=== PATIENT | male | born 1935 | race African-American/Black ===

== ENCOUNTER 2018-04-25 08:49 | Emergency (ER) | payer MEDICARE, OTHER ==
[~2018-04-25] VITALS: Ht 185.4 cm; Wt 81.6 kg
[~2018-04-25 08:49] MED LIST: ASPIRIN-LOW81 MG PO; BLOOD PRESSURE PILL ORAL; PROSTATE PILL ORAL
[2018-04-25] MEDS ORDERED: LIPITOR80 MG ORAL (08:51)
[2018-04-25] MEDS ORDERED: FINASTERIDE5 MG ORAL (08:51)
[2018-04-25] MEDS ORDERED: Isovue-300 100ml vial INJ PRN (09:15)
[2018-04-25 09:25] VITALS: BP 164/82
--- NOTE | 2018-04-25 09:26 | Emergency Room Report ---
History of Present Illness General Chief Complaint: Generalized Weakness Source: EMS Present Illness HPI Patient is an 82-year-old male brought in by EMS after increased generalized weakness. The patient was reportedly found slumped over on the toilet. Patient was noted to be more confused than usual The patient was reportedly normally verbal and oriented.Patient was noted to have been less responsive than usual. Patient is reportedly found the more confused. The history is markedly limited by patient's mental status. Allergies: Coded Allergies: PENICILLINS (Verified Allergy, Unknown, 04/25/18) Patient History Past Medical History: see triage record Reviewed Nursing Documentation: PMH: Agreed; PSxH: Agreed Nursing Documentation-PMH Hx Cardiac Problems: Yes Hx Hypertension: Yes Hx Cancer: No Hx Gastrointestinal Problems: No Hx Neurological Problems: Yes Hx Cerebrovascular Accident: Yes - YEARS AGO. Review of Systems All Other Systems: limited - by mental status Physical Exam Vital Signs Date Time Temp Pulse Resp B/P (MAP) Pulse Ox O2 Delivery O2 Flow Rate FiO2 04/25/18 08:45 98.1 89 20 190/70 97 Room Air General Appearance: thin, Chronically Ill Head: normocephalic Neck: limited range of motion Respiratory: lungs clear, normal breath sounds Cardiovascular #1: normal inspection, regular rate, rhythm Gastrointestinal: soft, other - distended bladder Musculoskeletal: decreased range of motion Neurologic: alert, other - incomprehensible sounds, purposeful movements, eyes open Psychiatric: depressed affect Skin: normal inspection, normal color, no rash, warm/dry Medical Decision Making Diagnostic Impression: Primary Impression: Episode of generalized weakness Additional Impressions: Urinary tract infection Lactic acid acidosis ER Course Patient is an 82-year-old male presented after increased generalized weakness. The differential diagnosis included was not limited to CVA, pneumonia, urinary tract infection, myocardial infarction among others.Because of complexity of patient's case laboratory testing and imaging studies were ordered. The patient was noted to have evidence of confusion and was noted to be disoriented. The patient was given IV fluids and was noted to have some improvement in his mental status. Patient was started on IV antibiotics after blood cultures were obtained. The laboratory testing was notable for elevated lactic acid level with a normal white blood count. Urinalysis showed evidence of urinary infection.CT the head read by radiology showed atrophic changes without evident acute CVA or hemorrhage. The patient was discussed with Dr. Nico who agreed to accept the patient in transfer to [facility]. Labs Test 04/25/18 09:10 04/25/18 10:00 04/25/18 10:57 White Blood Count 9.9 K/UL (4.8-10.8) Red Blood Count 4.20 M/UL (4.70-6.10) Hemoglobin 10.6 G/DL (14.2-18.0) Hematocrit 33.8 % (42.0-52.0) Mean Corpuscular Volume 81 FL (80-99) Mean Corpuscular Hemoglobin 25.3 PG (27.0-31.0) Mean Corpuscular Hemoglobin Concent 31.5 G/DL (32.0-36.0) Red Cell Distribution Width 16.1 % (11.6-14.8) Platelet Count 281 K/UL (150-450) Mean Platelet Volume 7.3 FL (6.5-10.1) Neutrophils (%) (Auto) 74.3 % (45.0-75.0) Lymphocytes (%) (Auto) 11.7 % (20.0-45.0) Monocytes (%) (Auto) 12.5 % (1.0-10.0) Eosinophils (%) (Auto) 0.5 % (0.0-3.0) Basophils (%) (Auto) 0.9 % (0.0-2.0) Sodium Level 142 MMOL/L (136-145) Potassium Level 4.1 MMOL/L (3.5-5.1) Chloride Level 105 MMOL/L (98-107) Carbon Dioxide Level 23 MMOL/L (21-32) Anion Gap 14 mmol/L (5-15) Blood Urea Nitrogen 31 mg/dL (7-18) Creatinine 1.8 MG/DL (0.55-1.30) Estimat Glomerular Filtration Rate mL/min (>60) Glucose Level 122 MG/DL (74-106) Calcium Level 10.2 MG/DL (8.5-10.1) Phosphorus Level 2.7 MG/DL (2.5-4.9) Magnesium Level 2.3 MG/DL (1.8-2.4) Total Bilirubin 0.5 MG/DL (0.2-1.0) Aspartate Amino Transf (AST/SGOT) 53 U/L (15-37) Alanine Aminotransferase (ALT/SGPT) 48 U/L (12-78) Alkaline Phosphatase 124 U/L (46-116) Total Creatine Kinase 1265 U/L (26-308) Creatine Kinase MB 3.4 NG/ML (0.0-3.6) Creatine Kinase MB Relative Index 0.2 Troponin I 0.150 ng/mL (0.000-0.056) Pro-B-Type Natriuretic Peptide 479 pg/mL (0-125) Total Protein 8.9 G/DL (6.4-8.2) Albumin 3.3 G/DL (3.4-5.0) Globulin 5.6 g/dL Albumin/Globulin Ratio 0.6 (1.0-2.7) Urine Color Pale yellow Urine Appearance Cloudy Urine pH 8 (4.5-8.0) Urine Specific [place] 1.010 (1.005-1.035) Urine Protein 2+ (NEGATIVE) Urine Glucose (UA) Negative (NEGATIVE) Urine Ketones Negative (NEGATIVE) Urine Blood 4+ (NEGATIVE) Urine Nitrite Positive (NEGATIVE) Urine Bilirubin Negative (NEGATIVE) Urine Urobilinogen Normal MG/DL (0.0-1.0) Urine Leukocyte Esterase 3+ (NEGATIVE) Urine RBC 2-4 /HPF (0 - 0) Urine WBC 20-30 /HPF (0 - 0) Urine Squamous Epithelial Cells Few /LPF (NONE/OCC) Urine Bacteria Many /HPF (NONE) Last Vital Signs Date Time Temp Pulse Resp B/P (MAP) Pulse Ox O2 Delivery O2 Flow Rate FiO2 04/25/18 08:45 98.1 89 20 190/70 97 Room Air Status: improved Disposition: XFER [facility] Condition: Stable Referrals: NOT CHOSEN IPA/,REFERRING (PCP) Galo Truong MD Apr 25, 2018 09:26
[2018-04-25 09:37] LABS: BASOPHILS % (AUTO) 0.9 % (0.0-2.0); EOSINOPHILS % (AUTO) 0.5 % (0.0-3.0); HEMATOCRIT 33.8 % (42.0-52.0); HEMOGLOBIN 10.6 G/DL (14.2-18.0); LYMPHOCYTES % (AUTO) 11.7 % (20.0-45.0); MEAN CORPUSCULAR VOLUME 81 FL (80-99); MONOCYTES % (AUTO) 12.5 % (1.0-10.0); NEUTROPHILS % (AUTO) 74.3 % (45.0-75.0); PLATELET COUNT 281 K/UL (150-450); RED CELL DISTRIBUTION WIDTH 16.1 % (11.6-14.8); WHITE BLOOD COUNT 9.9 K/UL (4.8-10.8)
--- NOTE | 2018-04-25 10:00 | Diagnostic Imaging Report ---
INDICATION: Altered mental status TECHNIQUE: Multiple, contiguous 2.5 mm axial cuts of the brain are obtained from the posterior fossa to the cranial vault. Sagittal and coronal reformatted images provided. No IV contrast is administered. One or more of the following dose reduction techniques were used: automated exposure control, adjustment of the mA and/or kV according to patient size, use of iterative reconstruction technique. COMPARISON: None FINDINGS: No intracranial hemorrhage, abnormal intra- or extra-axial collections or parenchymal lesions are seen. There are involutional changes with prominence of the sulci, basal cisterns and ventricles. Scattered white matter hypoattenuations are present, likely from small vessel disease. The vee-white differentiation is preserved. No evidence of mass effect, midline shift, or edema. The osseous structures are unremarkable. The visualized portions of the paranasal sinuses are clear. Atherosclerotic vascular disease. IMPRESSION: 1. No acute intracranial process. 2. Involutional changes with small vessel disease. CTDI: 70.38 mGy DLP: 1537.73 mGycm
[2018-04-25 10:11] LABS: APPEARANCE,URINE CLOUDY; BILIRUBIN, URINE NEGATIVE (NEGATIVE); COLOR,URINE PALE YELLOW; GLUCOSE, URINE (UA) NEGATIVE (NEGATIVE); KETONES,URINE NEGATIVE (NEGATIVE); LEUKOCYTE ESTERASE ,URINE 3+ (NEGATIVE); NITRITE,URINE POSITIVE (NEGATIVE); PH,URINE 8 (4.5-8.0); PROTEIN,URINE 2+ (NEGATIVE); UROBILINOGEN,URINE NORMAL MG/DL (0.0-1.0)
[2018-04-25 10:18] LABS: ANION GAP 14 mmol/L (5-15); BLOOD UREA NITROGEN 31 mg/dL (7-18); CALCIUM 10.2 MG/DL (8.5-10.1); CARBON DIOXIDE 23 MMOL/L (21-32); CHLORIDE 105 MMOL/L (98-107); CREATININE 1.8 MG/DL (0.55-1.30); POTASSIUM 4.1 MMOL/L (3.5-5.1); SODIUM 142 MMOL/L (136-145)
--- NOTE | 2018-04-25 10:26 | Diagnostic Imaging Report ---
INDICATION: Shortness of breath COMPARISON: None FINDINGS: Single frontal view demonstrates a normal cardiomediastinal silhouette. The lungs are clear. No pleural effusions. The visualized osseous structures are within normal limits. Atelectatic bands in the left lower lung zone. Atherosclerotic vascular disease. IMPRESSION: Atelectatic bands in the left lower lung zone. Atherosclerotic vascular disease.
[2018-04-25 10:33] LABS: ALANINE AMINOTRANSFERASE 48 U/L (12-78); ALBUMIN 3.3 G/DL (3.4-5.0); ALBUMIN/GLOBULIN RATIO 0.6 (1.0-2.7); ALKALINE PHOSPHATASE 124 U/L (46-116); ASPARTATE AMINO TRANSFERASE 53 U/L (15-37); BILIRUBIN,TOTAL 0.5 MG/DL (0.2-1.0); CKMB 3.4 NG/ML (0.0-3.6); CREATINE KINASE 1265 U/L (26-308); PHOSPHORUS 2.7 MG/DL (2.5-4.9)
[2018-04-25 11:20] VITALS: BP 150/98
--- NOTE | 2018-04-25 11:34 | Diagnostic Imaging Report ---
ADDENDUM - Added by Alexandro Owens M.D. on 04/25/2018 11:33 AM (-08:00) CTDI: 12.33 mGy DLP: 668.51 mGycm INDICATION: Altered mental status TECHNIQUE: Multiple, contiguous axial cuts of the abdomen and pelvis are obtained from the lung bases to the ischial tuberosities. Sagittal and coronal reformatted images are available. One or more of the following dose reduction techniques were used: automated exposure control, adjustment of the mA and/or kV according to patient size, use of iterative reconstruction technique. COMPARISON: None FINDINGS: Mild bilateral lower lobe subsegmental atelectasis. The liver and spleen are normal in size and free of mass lesions. The bile ducts and pancreas are normal. Status post cholecystectomy. The adrenal gland are unremarkable. The kidneys are normal in size and contour. No stones, lesions or hydronephrosis. 18 mm left renal cyst. Small hiatal hernia. The appendix is unremarkable, as is the rest of the GI tract. Layering calcifications seen in the bladder the right ureterovesical junction measuring 6-7 mm. No hydroureteronephrosis. Atherosclerotic vascular disease. Aorta is normal caliber. No adenopathy or extraluminal air. Status post left femoral neck jani fixation with adjacent dystrophic calcifications likely related to prior fracture. 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 Old fracture deformity of bilateral inferior pubic rami. Degenerative changes of the lumbar spine with a small Schmorl's node at the superior endplate of L3. IMPRESSION: 1. Layering calcification along the right ureterovesical junction measuring 6-7 mm without evidence of hydroureteronephrosis. 2. 18 mm left renal cyst. 3. Small hiatal hernia. 4. 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 Old fracture deformity of bilateral inferior pubic rami.
[2018-04-25 15:29] VITALS: BP 150/98
--- NOTE | 2018-04-27 08:50 | Cardiology Report ---
APPROVED REPORT EKG Measurement Heart [id number] Sinus rhythm with occasional premature ventricular complexes Nonspecific ST and T wave abnormality Abnormal ECG
== END 2018-04-25 15:29 | disposition short-term general hospital (02) ==
LOC: EDBD 08:49 → EMR 09:09
DX: R53.1 Weakness (principal); N39.0 Urinary tract infection, site not specified; E87.2 Acidosis; I10 Essential (primary) hypertension; Z88.0 Allergy status to penicillin; Z86.73 Personal history of transient ischemic attack (TIA), and cerebral infarction without residual deficits
CPT/HCPCS: 36415; 70450; 71045; 74176; 80053; 81003; 82550; 82553; 83605; 83735; 83880; 84100; 84484; 85025; 87040; 87086; 87181; 93005; 96360; 99284; J1956

== ENCOUNTER 2018-11-14 09:00 | Emergency (ER) | payer MEDICARE, OTHER ==
[~2018-11-14] VITALS: Ht 177.8 cm; Wt 68.0 kg
[~2018-11-14 09:00] MED LIST changes: +FINASTERIDE5 MG ORAL; +LIPITOR80 MG ORAL; +MIRTAZAPINE15 M3 ORAL; +SEROQUEL25 MG ORAL; +SYNTHROID25 MCG ORAL
[2018-11-14 09:13] VITALS: BP 138/71
--- NOTE | 2018-11-14 09:13 | NUR ---
ED Nurse Note: Patient brought in to ER by ambulance from [facility] for F/C insertion. per EMS pt pulled out F/C at facility this morning. pt aao x1 only to himself and bedbound. pt calm and follows commands. blood noted in diaper and the tip of penis but not active bleeding. pt has skin wound on both legs.
--- NOTE | 2018-11-14 09:21 | Emergency Room Report ---
History of Present Illness General Chief Complaint: General Complaint Source: EMS Present Illness HPI Patient pulled out his Muniz. There is blood at the meatus at this time. The patient has dementia and is unable to give more history at this time. According to med recon the patient is not taking a blood thinner. The patient was discharged November 02 with these discharge diagnoses: Possible sepsis UTI with Proteus and Strep group B Acute metabolic encephalopathy Cerebrovascular disease with history of CVA Severe anemia Diabetes mellitus Dysphagia Hypertension Hypothyroidism Allergies: Coded Allergies: PENICILLINS (Verified Allergy, Unknown, 10/27/18) tolretas cephalosporins Patient History Limited by: medical condition Past Medical History: see triage record, old chart reviewed Social History Narrative prison facility Reviewed Nursing Documentation: PMH: Agreed; PSxH: Agreed Nursing Documentation-PMH Past Medical History: No History, Except For Hx Cardiac Problems: Yes Hx Hypertension: Yes Hx Diabetes: Yes Hx Cancer: No Hx Gastrointestinal Problems: No Hx Neurological Problems: Yes Hx Cerebrovascular Accident: Yes - years ago Review of Systems All Other Systems: limited Physical Exam Vital Signs Date Time Temp Pulse Resp B/P (MAP) Pulse Ox O2 Delivery O2 Flow Rate FiO2 11/14/18 09:01 99.0 73 17 108/54 (72) 96 Room Air Sp02 EP Interpretation: reviewed, normal General Appearance: alert - Unresponsive to vocal, Chronically Ill Eyes: bilateral eye other - Arcus ENT: moist mucus membranes Neck: supple Respiratory: lungs clear, normal breath sounds, no rhonchi Cardiovascular #1: regular rate, rhythm, no edema Cardiovascular #2: 2+ radial (R) Gastrointestinal: normal inspection, normal bowel sounds, non tender, scaphoid Genitourinary: no CVA tenderness, scrotum normal, other - Circumcised with blood at the meatus Musculoskeletal: other - Blood at meatus No active bleeding and circumcised without tenderness Neurologic: alert, responsive, sensory intact, motor weakness, Babinski - Right Psychiatric: mood/affect normal Skin: other - Venous disease and skin tears lower extremities Medical Decision Making Diagnostic Impression: Primary Impression: Urethral trauma Qualified Codes: S37.30XA - Unspecified injury of urethra, initial encounter Additional Impressions: UTI (urinary tract infection) Qualified Codes: N39.0 - Urinary tract infection, site not specified; R31.9 - Hematuria, unspecified Leukocytosis Qualified Codes: D72.828 - Other elevated white blood cell count ER Course Patient presents with trauma due to Muniz. Differential includes ureteral trauma, UTI amongst others. A Muniz will be replaced. Laboratory testing to be performed. The patient will receive gentle IV hydration as he appears somewhat dehydrated. Elevated WBC, lactate. Pyuria. Antibiotics ordered. Full sepsis resuscitation bolus given. We have uncovered possible sepsis and not just urethral trauma. Improved and NAD. Repeat lactic acid improved. Presented to Dr. Aguero. Transfer [facility]. Laboratory Tests Test 11/14/18 09:40 11/14/18 10:18 11/14/18 12:30 White Blood Count 29.3 K/UL (4.8-10.8) *H Red Blood Count 4.29 M/UL (4.70-6.10) L Hemoglobin 9.8 G/DL (14.2-18.0) L Hematocrit 31.8 % (42.0-52.0) L Mean Corpuscular Volume 74 FL (80-99) L Mean Corpuscular Hemoglobin 22.9 PG (27.0-31.0) L Mean Corpuscular Hemoglobin Concent 30.9 G/DL (32.0-36.0) L Red Cell Distribution Width 18.8 % (11.6-14.8) H Platelet Count 326 K/UL (150-450) Mean Platelet Volume 6.5 FL (6.5-10.1) Neutrophils (%) (Auto) % (45.0-75.0) Lymphocytes (%) (Auto) % (20.0-45.0) Monocytes (%) (Auto) % (1.0-10.0) Eosinophils (%) (Auto) % (0.0-3.0) Basophils (%) (Auto) % (0.0-2.0) Differential Total Cells Counted 100 Neutrophils % (Manual) 90 % (45-75) H Lymphocytes % (Manual) 1 % (20-45) L Monocytes % (Manual) 2 % (1-10) Eosinophils % (Manual) 0 % (0-3) Basophils % (Manual) 0 % (0-2) Band Neutrophils 7 % (0-8) Platelet Estimate Adequate Platelet Morphology Normal Anisocytosis 1+ Microcytosis 1+ Prothrombin Time 10.6 SEC (9.30-11.50) Prothrombin Time INR 1.0 (0.9-1.1) PTT 21 SEC (23-33) L Urine Color Yellow Urine Appearance Cloudy Urine pH 5 (4.5-8.0) Urine Specific [place] 1.020 (1.005-1.035) Urine Protein 3+ (NEGATIVE) H Urine Glucose (UA) Negative (NEGATIVE) Urine Ketones 1+ (NEGATIVE) H Urine Blood 5+ (NEGATIVE) H Urine Nitrite Positive (NEGATIVE) H Urine Bilirubin 1+ (NEGATIVE) H Urine Ictotest Negative (NEGATIVE) Urine Urobilinogen 4 MG/DL (0.0-1.0) H Urine Leukocyte Esterase 3+ (NEGATIVE) H Urine RBC Tntc /HPF (0 - 0) H Urine WBC 30-40 /HPF (0 - 0) H Urine Squamous Epithelial Cells Occasional /LPF Urine Bacteria Few /HPF (NONE) Sodium Level 138 MMOL/L (136-145) Potassium Level 4.8 MMOL/L (3.5-5.1) Chloride Level 105 MMOL/L (98-107) Carbon Dioxide Level 22 MMOL/L (21-32) Anion Gap 11 mmol/L (5-15) Blood Urea Nitrogen 34 mg/dL (7-18) H Creatinine 1.7 MG/DL (0.55-1.30) H Estimate Glomerular Filtration Rate mL/min (>60) Glucose Level 140 MG/DL (74-106) H Calcium Level 9.4 MG/DL (8.5-10.1) Total Bilirubin 0.4 MG/DL (0.2-1.0) Aspartate Amino Transferase (AST) 133 U/L (15-37) H Alanine Aminotransferase (ALT) 95 U/L (12-78) H Alkaline Phosphatase 184 U/L (46-116) H Total Protein 8.6 G/DL (6.4-8.2) H Albumin 2.9 G/DL (3.4-5.0) L Globulin 5.7 g/dL Albumin/Globulin Ratio 0.5 (1.0-2.7) L Lipase 58 U/L (73-393) L Lactic Acid Level 3.10 mmol/L (0.4-2.0) H 2.20 mmol/L (0.66-2.22) EKG Diagnostic Results Rate: normal Rhythm: NSR ST Segments: no acute changes Rhythm Strip Diag. Results EP Interpretation: yes Rhythm: NSR, no PVC's, no ectopy Chest X-Ray Diagnostic Results Chest X-Ray Diagnostic Results : Chest X-Ray Ordered: Yes # of Views/Limited/Complete: 1 View Indication: Other EP Interpretation: Yes Interpretation: no consolidation, no effusion, no pneumothorax Impression: Other Last Vital Signs Date Time Temp Pulse Resp B/P (MAP) Pulse Ox O2 Delivery O2 Flow Rate FiO2 11/14/18 12:41 99.2 76 17 121/82 98 Room Air Status: improved [facility] Condition: Serious Tomas Daigle MD Nov 14, 2018 09:21
[2018-11-14] MEDS ORDERED: Sodium Chloride 550 ML IV SCH (09:30)
[2018-11-14] MEDS ORDERED: Bacitracin Oint UD TOPIC ONE (09:30)
[2018-11-14 09:59] LABS: ANION GAP 11 mmol/L (5-15); BLOOD UREA NITROGEN 34 mg/dL (7-18); CALCIUM 9.4 MG/DL (8.5-10.1); CARBON DIOXIDE 22 MMOL/L (21-32); CHLORIDE 105 MMOL/L (98-107); CREATININE 1.7 MG/DL (0.55-1.30); POTASSIUM 4.8 MMOL/L (3.5-5.1); SODIUM 138 MMOL/L (136-145)
--- NOTE | 2018-11-14 10:00 | NUR ---
ED Nurse Note: FC inserted with 14 Fr. blood noted in urine. both legs wound treated with bacitracin and open to air at this moment.
[2018-11-14 10:06] LABS: ALANINE AMINOTRANSFERASE 95 U/L (12-78); ALBUMIN 2.9 G/DL (3.4-5.0); ALBUMIN/GLOBULIN RATIO 0.5 (1.0-2.7); ALKALINE PHOSPHATASE 184 U/L (46-116); ASPARTATE AMINO TRANSFERASE 133 U/L (15-37); BILIRUBIN,TOTAL 0.4 MG/DL (0.2-1.0); HEMATOCRIT 31.8 % (42.0-52.0); HEMOGLOBIN 9.8 G/DL (14.2-18.0); MEAN CORPUSCULAR VOLUME 74 FL (80-99); PLATELET COUNT 326 K/UL (150-450); RED BLOOD COUNT 4.29 M/UL (4.70-6.10); RED CELL DISTRIBUTION WIDTH 18.8 % (11.6-14.8)
[2018-11-14 10:09] LABS: WHITE BLOOD COUNT 29.3 K/UL (4.8-10.8)
[2018-11-14 10:17] LABS: APPEARANCE,URINE CLOUDY; BILIRUBIN, URINE 1+ (NEGATIVE); GLUCOSE, URINE (UA) NEGATIVE (NEGATIVE); KETONES,URINE 1+ (NEGATIVE); LEUKOCYTE ESTERASE ,URINE 3+ (NEGATIVE); NITRITE,URINE POSITIVE (NEGATIVE); PH,URINE 5 (4.5-8.0); PROTEIN,URINE 3+ (NEGATIVE); UROBILINOGEN,URINE 4 MG/DL (0.0-1.0)
[2018-11-14 10:27] LABS: COLOR,URINE YELLOW
[2018-11-14 10:30] VITALS: BP 121/82
[2018-11-14] MEDS ORDERED: Calcium Gluconate 1gm/10ml vial IVP ONE (10:30)
[2018-11-14] MEDS ORDERED: Albuterol ud Inhalation HHN ONE (10:30)
[2018-11-14] MEDS ORDERED: cefTRIAXone 1 GM in NS 55 ML IVPB ONE (10:30)
[2018-11-14] MEDS ORDERED: Sodium Polystyrene Sulfonate 15gm Powder ORAL ONE (10:30)
--- NOTE | 2018-11-14 10:39 | NUR ---
ED Nurse Note: lactic and blood culture sent to the lab.
--- NOTE | 2018-11-14 12:32 | NUR ---
ED Nurse Note: transportation arrived. report given to EMS.
[2018-11-14 12:41] VITALS: BP 121/82
--- NOTE | 2018-11-14 12:54 | NUR ---
ED Nurse Note: report given to KAI Shetty.
--- NOTE | 2018-11-15 12:31 | NUR ---
FAXED CULTURE RESULT TO [facility]
--- NOTE | 2018-11-17 21:13 | Cardiology Report ---
APPROVED REPORT EKG Measurement Heart [id number] [id number] Normal sinus rhythm Nonspecific T wave abnormality Abnormal ECG
== END 2018-11-14 12:41 | disposition short-term general hospital (02) ==
LOC: EDBD 09:00 → EMR 09:10 → EDBEDREQ 10:45 → EMR 12:41
DX: S37.30XA Unspecified injury of urethra, initial encounter (principal); N39.0 Urinary tract infection, site not specified; R31.9 Hematuria, unspecified; D72.828 Other elevated white blood cell count; F03.90 Unspecified dementia, unspecified severity, without behavioral disturbance, psychotic disturbance, mood disturbance, and anxiety; E03.9 Hypothyroidism, unspecified; Z86.73 Personal history of transient ischemic attack (TIA), and cerebral infarction without residual deficits; Z88.0 Allergy status to penicillin; E11.9 Type 2 diabetes mellitus without complications; I10 Essential (primary) hypertension; X58.XXXA Exposure to other specified factors, initial encounter; Y92.9 Unspecified place or not applicable
CPT/HCPCS: 36415; 51702; 80053; 81003; 83605; 83690; 85007; 85025; 85610; 85730; 87040; 87086; 87181; 93005; 96361; 96365; 96368; 99284; J0696; J1956; J7040

== ENCOUNTER 2018-11-19 08:07 | Emergency (ER) | payer MEDICARE, OTHER ==
[~2018-11-19] VITALS: Ht 185.4 cm; Wt 74.8 kg
[2018-11-19] MEDS ORDERED: MIRTAZAPINE15 MG ORAL (08:13)
--- NOTE | 2018-11-19 08:15 | NUR ---
ED Nurse Note: pt arrives alert oriented to self only. no dyspnea or cp c/o no edema noted. cooperative with care upon arrival placed on playground monitor. 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
[2018-11-19 09:24] LABS: BASOPHILS % (AUTO) 1.2 % (0.0-2.0); HEMATOCRIT 30.7 % (42.0-52.0); HEMOGLOBIN 9.3 G/DL (14.2-18.0); MEAN CORPUSCULAR VOLUME 74 FL (80-99); MONOCYTES % (AUTO) 7.3 % (1.0-10.0); NEUTROPHILS % (AUTO) 59.5 % (45.0-75.0); PLATELET COUNT 316 K/UL (150-450); RED BLOOD COUNT 4.17 M/UL (4.70-6.10); RED CELL DISTRIBUTION WIDTH 18.9 % (11.6-14.8); WHITE BLOOD COUNT 7.1 K/UL (4.8-10.8)
[2018-11-19 09:28] LABS: ANION GAP 7 mmol/L (5-15); BLOOD UREA NITROGEN 17 mg/dL (7-18); CALCIUM 9.3 MG/DL (8.5-10.1); CARBON DIOXIDE 25 MMOL/L (21-32); CHLORIDE 107 MMOL/L (98-107); CREATININE 1.1 MG/DL (0.55-1.30); POTASSIUM 4.4 MMOL/L (3.5-5.1); SODIUM 139 MMOL/L (136-145)
[2018-11-19 09:29] LABS: INR 0.9 (0.9-1.1)
[2018-11-19 09:36] VITALS: BP 176/60
--- NOTE | 2018-11-19 09:39 | NUR ---
ED Nurse Note: urine sent from [facility] angel
[2018-11-19 09:42] LABS: ALANINE AMINOTRANSFERASE 43 U/L (12-78); ALBUMIN 2.6 G/DL (3.4-5.0); ALBUMIN/GLOBULIN RATIO 0.5 (1.0-2.7); ALKALINE PHOSPHATASE 156 U/L (46-116); ASPARTATE AMINO TRANSFERASE 34 U/L (15-37); BILIRUBIN,TOTAL 0.3 MG/DL (0.2-1.0)
[2018-11-19 10:24] LABS: APPEARANCE,URINE CLEAR; BILIRUBIN, URINE NEGATIVE (NEGATIVE); COLOR,URINE PALE YELLOW; GLUCOSE, URINE (UA) NEGATIVE (NEGATIVE); KETONES,URINE NEGATIVE (NEGATIVE); LEUKOCYTE ESTERASE ,URINE 1+ (NEGATIVE); NITRITE,URINE NEGATIVE (NEGATIVE); PH,URINE 5 (4.5-8.0); PROTEIN,URINE NEGATIVE (NEGATIVE); UROBILINOGEN,URINE NORMAL MG/DL (0.0-1.0)
[2018-11-19 11:09] VITALS: BP 192/56
--- NOTE | 2018-11-19 11:21 | Emergency Room Report ---
History of Present Illness General Chief Complaint: Abnormal Labs Source: Medical Record, EMS Present Illness HPI This patient presents from a long term facility. He has multiple chronic medical problems to include encephalopathy and generalized muscle weakness and type 2 diabetes. He presents because routine labs at the long term [facility] showed anemia. Patient himself has no specific complaints. There is been no report of coffee-ground emesis or melena. There is been no diarrhea. There are no other complaints or symptoms. Allergies: Coded Allergies: PENICILLINS (Verified Allergy, Unknown, 10/27/18) tolretas cephalosporins Patient History Past Medical History: see triage record, DM, other - Enchephalopathy, muscle weakness, Hypothyroid Social History: Denies: smoking, alcohol use, drug use Reviewed Nursing Documentation: PMH: Agreed; PSxH: Agreed Nursing Documentation-PMH Past Medical History: No History, Except For Hx Cardiac Problems: Yes Hx Hypertension: Yes Hx Diabetes: Yes Hx Cancer: No Hx Gastrointestinal Problems: No Hx Neurological Problems: Yes Hx Cerebrovascular Accident: Yes Review of Systems All Other Systems: negative except mentioned in HPI Physical Exam Vital Signs Date Time Temp Pulse Resp B/P (MAP) Pulse Ox O2 Delivery O2 Flow Rate FiO2 11/19/18 08:08 97.9 46 16 167/75 (105) 100 11/19/18 09:36 Room Air Sp02 EP Interpretation: reviewed, normal General Appearance: no apparent distress, alert, GCS 15, non-toxic Head: normocephalic, atraumatic ENT: hearing grossly normal, normal pharynx, no angioedema, normal voice Neck: full range of motion Respiratory: chest non-tender, lungs clear, normal breath sounds, no respiratory distress, no retraction, no accessory muscle use, speaking full sentences Cardiovascular #1: regular rate, rhythm, no edema Gastrointestinal: normal bowel sounds, non tender, soft, non-distended, no guarding, no rebound Rectal: deferred Musculoskeletal: normal inspection, back normal, normal range of motion Neurologic: alert, responsive, speech normal, grossly normal Psychiatric: mood/affect normal, no suicidal/homicidal ideation Skin: normal color, no rash, warm/dry, well hydrated Medical Decision Making Diagnostic Impression: Primary Impression: Anemia ER Course This patient has a known baseline anemia. Labs done here in the emergency department are at his baseline. Hemoglobin is 9.3 which is baseline for this patient. Possibly the results at the long term [facility] were a lab error. Regardless, this patient is at his baseline with no evidence of any medical condition. The patient is returned to the long term facility. Laboratory Tests Test 11/19/18 09:00 11/19/18 09:41 White Blood Count 7.1 K/UL (4.8-10.8) Red Blood Count 4.17 M/UL (4.70-6.10) L Hemoglobin 9.3 G/DL (14.2-18.0) L Hematocrit 30.7 % (42.0-52.0) L Mean Corpuscular Volume 74 FL (80-99) L Mean Corpuscular Hemoglobin 22.3 PG (27.0-31.0) L Mean Corpuscular Hemoglobin Concent 30.3 G/DL (32.0-36.0) L Red Cell Distribution Width 18.9 % (11.6-14.8) H Platelet Count 316 K/UL (150-450) Mean Platelet Volume 6.3 FL (6.5-10.1) L Neutrophils (%) (Auto) 59.5 % (45.0-75.0) Lymphocytes (%) (Auto) 28.0 % (20.0-45.0) Monocytes (%) (Auto) 7.3 % (1.0-10.0) Eosinophils (%) (Auto) 4.0 % (0.0-3.0) H Basophils (%) (Auto) 1.2 % (0.0-2.0) Prothrombin Time 10.0 SEC (9.30-11.50) Prothrombin Time INR 0.9 (0.9-1.1) PTT 23 SEC (23-33) Sodium Level 139 MMOL/L (136-145) Potassium Level 4.4 MMOL/L (3.5-5.1) Chloride Level 107 MMOL/L (98-107) Carbon Dioxide Level 25 MMOL/L (21-32) Anion Gap 7 mmol/L (5-15) Blood Urea Nitrogen 17 mg/dL (7-18) Creatinine 1.1 MG/DL (0.55-1.30) Estimate Glomerular Filtration Rate mL/min (>60) Glucose Level 96 MG/DL (74-106) Calcium Level 9.3 MG/DL (8.5-10.1) Total Bilirubin 0.3 MG/DL (0.2-1.0) Aspartate Amino Transferase (AST) 34 U/L (15-37) Alanine Aminotransferase (ALT) 43 U/L (12-78) Alkaline Phosphatase 156 U/L (46-116) H Total Protein 7.8 G/DL (6.4-8.2) Albumin 2.6 G/DL (3.4-5.0) L Globulin 5.2 g/dL Albumin/Globulin Ratio 0.5 (1.0-2.7) L Urine Color Pale yellow Urine Appearance Clear Urine pH 5 (4.5-8.0) Urine Specific [place] 1.015 (1.005-1.035) Urine Protein Negative (NEGATIVE) Urine Glucose (UA) Negative (NEGATIVE) Urine Ketones Negative (NEGATIVE) Urine Blood 1+ (NEGATIVE) H Urine Nitrite Negative (NEGATIVE) Urine Bilirubin Negative (NEGATIVE) Urine Urobilinogen Normal MG/DL (0.0-1.0) Urine Leukocyte Esterase 1+ (NEGATIVE) H Urine RBC 0-2 /HPF (0 - 0) H Urine WBC 2-4 /HPF (0 - 0) Urine Squamous Epithelial Cells Occasional /LPF Urine Bacteria Occasional /HPF (NONE) EKG Diagnostic Results Rate: bradycardiac Rhythm: other - S.alexandra ST Segments: no acute changes Rhythm Strip Diag. Results EP Interpretation: yes Rate: 50's Rhythm: no PVC's, no ectopy, other - S.bradycardia Chest X-Ray Diagnostic Results Chest X-Ray Diagnostic Results : Chest X-Ray Ordered: Yes # of Views/Limited/Complete: 1 View Indication: Chest Pain Last Vital Signs Date Time Temp Pulse Resp B/P (MAP) Pulse Ox O2 Delivery O2 Flow Rate FiO2 11/19/18 11:09 54 20 192/56 99 Room Air 11/19/18 08:08 97.9 Disposition: XFER SNF Condition: Stable Referrals: Vania Hui MD (PCP) Swathi Núñez DO Nov 19, 2018 11:21
--- NOTE | 2018-11-19 12:53 | NUR ---
ED Nurse Note: pt remains as previously, awaiting further dispo by md. no new orders
--- NOTE | 2018-11-19 13:39 | NUR ---
report called to [facility] patient will [facility] returning [facility]
--- NOTE | 2018-11-19 14:05 | NUR ---
ED Nurse Note: [facility] here to transport pt to snf. pt remains with iv site and angel cath as pt came with these plane captain. vs remain as during time in ed. pt agrees to plan to return to snf
[2018-11-19 14:18] VITALS: BP 186/89
--- NOTE | 2018-11-19 14:19 | NUR ---
ED Nurse Note:pt to be transported by [facility]. dc aci and interventions done sent with pt. pt remains at same mentation.
[2018-11-19 14:20] VITALS: BP 186/89
== END 2018-11-19 14:21 ==
LOC: EDBD 08:07 → EMR 08:40
DX: D64.9 Anemia, unspecified (principal); Z88.0 Allergy status to penicillin; I10 Essential (primary) hypertension; Z86.73 Personal history of transient ischemic attack (TIA), and cerebral infarction without residual deficits; E03.9 Hypothyroidism, unspecified; R00.1 Bradycardia, unspecified
CPT/HCPCS: 36415; 80053; 81003; 85025; 85610; 85730; 86850; 86900; 86901; 93005; 96374; 99284; S0028

== ENCOUNTER 2019-07-18 11:51 | Inpatient (IN) | payer MEDICARE, OTHER ==
[~2019-07-18] VITALS: Ht 182.9 cm; Wt 70.8 kg
[2019-07-18] VITALS (12 sets, daily range): BP systolic 91–127; BP diastolic 40–98
[~2019-07-18 11:51] MED LIST changes: +MIRTAZAPINE15 MG ORAL
[2019-07-18] MEDS ORDERED: Solu-MEDROL 125mg Inj IVP ONE (12:00)
[2019-07-18] MEDS ORDERED: Vancomycin 1 GM in NS 275 ML IVPB ONE (12:00)
--- NOTE | 2019-07-18 12:10 | NUR ---
ED Nurse Note: Pt brought into ED w/ SOB from SNF. SNF said that O2 was as low as 80%. O2 here is 96% nonrebreather mask. Lungs are clear to auscultation. Pt is alert but orientedx0. Pt is set up on monitor. Ot has skin tears bilateral legs. Pt has contractures in 4 extremities. MD at bedside.
[2019-07-18] MEDS: Albuterol/Ipratropium 3ml neb HHN SCH ×2 (12:13→12:14)
[2019-07-18 12:37] LABS: ANION GAP 15 mmol/L (5-15); BLOOD UREA NITROGEN 48 mg/dL (7-18); CALCIUM 9.8 MG/DL (8.5-10.1); CARBON DIOXIDE 19 MMOL/L (21-32); CHLORIDE 110 MMOL/L (98-107); CREATININE 2.6 MG/DL (0.55-1.30); HEMATOCRIT 33.2 % (42.0-52.0); HEMOGLOBIN 10.4 G/DL (14.2-18.0); MEAN CORPUSCULAR VOLUME 80 FL (80-99); PLATELET COUNT 313 K/UL (150-450); POTASSIUM 5.7 MMOL/L (3.5-5.1); RED BLOOD COUNT 4.14 M/UL (4.70-6.10); RED CELL DISTRIBUTION WIDTH 15.9 % (11.6-14.8); SODIUM 144 MMOL/L (136-145); WHITE BLOOD COUNT 15.9 K/UL (4.8-10.8)
--- NOTE | 2019-07-18 12:52 | Emergency Room Report ---
History of Present Illness General Chief Complaint: General Complaint Source: Medical Record, EMS Present Illness HPI Patient is an 84-year-old male past medical history of encephalopathy, muscle weakness, diabetes, hypertension, hypothyroidism, CVA, UTI, anemia, dementia who was sent here from his extended care facility for third mental status. Patient was brought in by EMS. Patient is non-verbal at this time and therefore history is limited. Allergies: Coded Allergies: PENICILLINS (Verified Allergy, Unknown, 10/27/18) tolretas cephalosporins Patient History Limited by: other - nonverbal Reviewed Nursing Documentation: PMH: Agreed; PSxH: Agreed Nursing Documentation-PMH Hx Cardiac Problems: Yes Hx Hypertension: Yes Hx Diabetes: Yes Hx Cancer: No Hx Gastrointestinal Problems: No Hx Neurological Problems: Yes Hx Cerebrovascular Accident: Yes Review of Systems All Other Systems: limited - non-verbal Physical Exam Vital Signs Date Time Temp Pulse Resp B/P (MAP) Pulse Ox O2 Delivery O2 Flow Rate FiO2 07/18/19 11:31 56 28 107/49 (68) 95 Non-Rebreather 07/18/19 12:16 15.0 100 Sp02 EP Interpretation: reviewed, abnormal, other - hypoxic Head: normocephalic, atraumatic ENT: other - dry, cracked oral mucosa Neck: normal inspection, full range of motion Respiratory: respiratory distress, rhonchi Cardiovascular #1: regular rate, rhythm Gastrointestinal: normal bowel sounds, non tender, soft, non-distended, no guarding, no rebound, other - g-tube in place Rectal: deferred Neurologic: other - non-verbal in ER, not following commands Skin: no rash, normal color Lymphatic: normal inspection Procedures Critical Care Time Critical Care Time Total critical care time: Approximately 40 minutes. Due to a high probability of clinically significant, life threatening deterioration, the patient required my highest level of preparedness to intervene emergently and I personally spent this critical care time directly and personally managing the patient. This critical care time included obtaining a history; examining the patient; pulse oximetry; ordering and review of studies; arranging urgent treatment with development of a management plan; evaluation of patient's response to treatment ; frequent reassessment; and, discussions with other providers.This critical care time was performed to assess and manage the high probability of imminent, life-threatening deterioration that could result in multi-organ failure. It was exclusive of separately billable procedures and treating other patients and teaching time. Please see MDM section and the rest of the note for further information on patient assessment and treatment. Medical Decision Making Diagnostic Impression: Primary Impression: Sepsis Additional Impressions: Acute renal failure Dehydration Pneumonia ER Course Patient initially hypotensive and now normotensive after IV fluids. Patient's current blood pressure at 2:06 PM is 125/52. He is satting 97%. Patient is in no acute respiratory distress. Patient's chest x-ray demonstrates bilateral pulmonary infiltrates. Patient is severely dehydrated with elevated BUN and creatinine. Discussed the case with will be admitting the patient for further treatment and evaluation in critical condition to ICU. Laboratory Tests Test 07/18/19 11:55 07/18/19 12:10 07/18/19 13:20 White Blood Count 15.9 K/UL (4.8-10.8) H Red Blood Count 4.14 M/UL (4.70-6.10) L Hemoglobin 10.4 G/DL (14.2-18.0) L Hematocrit 33.2 % (42.0-52.0) L Mean Corpuscular Volume 80 FL (80-99) Mean Corpuscular Hemoglobin 25.0 PG (27.0-31.0) L Mean Corpuscular Hemoglobin Concent 31.3 G/DL (32.0-36.0) L Red Cell Distribution Width 15.9 % (11.6-14.8) H Platelet Count 313 K/UL (150-450) Mean Platelet Volume 6.3 FL (6.5-10.1) L Neutrophils (%) (Auto) % (45.0-75.0) Lymphocytes (%) (Auto) % (20.0-45.0) Monocytes (%) (Auto) % (1.0-10.0) Eosinophils (%) (Auto) % (0.0-3.0) Basophils (%) (Auto) % (0.0-2.0) Differential Total Cells Counted 100 Neutrophils % (Manual) 68 % (45-75) Lymphocytes % (Manual) 3 % (20-45) L Monocytes % (Manual) 4 % (1-10) Eosinophils % (Manual) 0 % (0-3) Basophils % (Manual) 0 % (0-2) Band Neutrophils 25 % (0-8) H Platelet Estimate Adequate Platelet Morphology Normal Hypochromasia 1+ Anisocytosis 1+ Prothrombin Time 10.9 SEC (9.30-11.50) Prothrombin Time INR 1.0 (0.9-1.1) Activated Partial Thromboplast Time 26 SEC (23-33) Sodium Level 144 MMOL/L (136-145) Potassium Level 5.7 MMOL/L (3.5-5.1) H Chloride Level 110 MMOL/L (98-107) H Carbon Dioxide Level 19 MMOL/L (21-32) L Anion Gap 15 mmol/L (5-15) Blood Urea Nitrogen 48 mg/dL (7-18) H Creatinine 2.6 MG/DL (0.55-1.30) H Estimate Glomerular Filtration Rate mL/min (>60) Glucose Level 101 MG/DL (74-106) Lactic Acid Level 5.50 mmol/L (0.4-2.0) H Pending Calcium Level 9.8 MG/DL (8.5-10.1) Magnesium Level 2.3 MG/DL (1.8-2.4) Total Bilirubin 0.4 MG/DL (0.2-1.0) Aspartate Amino Transferase (AST) 60 U/L (15-37) H Alanine Aminotransferase (ALT) 48 U/L (12-78) Alkaline Phosphatase 125 U/L (46-116) H Total Creatine Kinase 84 U/L (26-308) Creatine Kinase MB 1.8 NG/ML (0.0-3.6) Creatine Kinase MB Relative Index 2.1 Troponin I 0.000 ng/mL (0.000-0.056) Pro-B-Type Natriuretic Peptide 550 pg/mL (0-125) H Total Protein 8.6 G/DL (6.4-8.2) H Albumin 2.7 G/DL (3.4-5.0) L Globulin 5.9 g/dL Albumin/Globulin Ratio 0.5 (1.0-2.7) L Arterial Blood pH 7.314 (7.350-7.450) Arterial Blood Partial Pressure CO2 37.1 mmHg (35.0-45.0) Arterial Blood Partial Pressure O2 146.0 mmHg (75.0-100.0) H Arterial Blood HCO3 18.4 mmol/L (22.0-26.0) L Arterial Blood Oxygen Saturation 98.5 % (95-100) Arterial Blood Base Excess -7.1 (-2-2) L Watson Test Positive Microbiology Date/Time Source Procedure Growth Status 07/18/19 12:19 Nasal Nares - Final Complete 07/18/19 12:19 Nasal Nares - Final Complete EKG Diagnostic Results EKG Time: 12:25 EP Interpretation: Siomara Jackson MD Rate: normal Rhythm: NSR ST Segments: no acute changes Rhythm Strip Diag. Results Rhythm Strip Time: 12:52 EP Interpretation: yes Rate: 65 Rhythm: NSR, no PVC's, no ectopy Last Vital Signs Date Time Temp Pulse Resp B/P (MAP) Pulse Ox O2 Delivery O2 Flow Rate FiO2 07/18/19 12:16 101 20 100 Non-Rebreather 15.0 100 80 20 98 07/18/19 11:31 107/49 (68) Referrals: Vania Hui MD (PCP) Sepsis Event Note Evaluation Current Stage of Sepsis: Severe Sepsis Possible Source: Pulmonary Focused Exam Allergies: Coded Allergies: PENICILLINS (Verified Allergy, Unknown, 10/27/18) tolretas cephalosporins Date Exam Occurred: Jul 18, 2019 Time Exam Occurred: 14:14 Laboratory Studies Laboratory Tests Test 07/18/19 11:55 07/18/19 12:10 07/18/19 13:20 White Blood Count 15.9 K/UL (4.8-10.8) H Red Blood Count 4.14 M/UL (4.70-6.10) L Hemoglobin 10.4 G/DL (14.2-18.0) L Hematocrit 33.2 % (42.0-52.0) L Mean Corpuscular Volume 80 FL (80-99) Mean Corpuscular Hemoglobin 25.0 PG (27.0-31.0) L Mean Corpuscular Hemoglobin Concent 31.3 G/DL (32.0-36.0) L Red Cell Distribution Width 15.9 % (11.6-14.8) H Platelet Count 313 K/UL (150-450) Mean Platelet Volume 6.3 FL (6.5-10.1) L Neutrophils (%) (Auto) % (45.0-75.0) Lymphocytes (%) (Auto) % (20.0-45.0) Monocytes (%) (Auto) % (1.0-10.0) Eosinophils (%) (Auto) % (0.0-3.0) Basophils (%) (Auto) % (0.0-2.0) Differential Total Cells Counted 100 Neutrophils % (Manual) 68 % (45-75) Lymphocytes % (Manual) 3 % (20-45) L Monocytes % (Manual) 4 % (1-10) Eosinophils % (Manual) 0 % (0-3) Basophils % (Manual) 0 % (0-2) Band Neutrophils 25 % (0-8) H Platelet Estimate Adequate Platelet Morphology Normal Hypochromasia 1+ Anisocytosis 1+ Prothrombin Time 10.9 SEC (9.30-11.50) Prothromb Time International Ratio 1.0 (0.9-1.1) Activated Partial Thromboplast Time 26 SEC (23-33) Sodium Level 144 MMOL/L (136-145) Potassium Level 5.7 MMOL/L (3.5-5.1) H Chloride Level 110 MMOL/L (98-107) H Carbon Dioxide Level 19 MMOL/L (21-32) L Anion Gap 15 mmol/L (5-15) Blood Urea Nitrogen 48 mg/dL (7-18) H Creatinine 2.6 MG/DL (0.55-1.30) H Estimat Glomerular Filtration Rate mL/min (>60) Glucose Level 101 MG/DL (74-106) Lactic Acid Level 5.50 mmol/L (0.4-2.0) H Pending Calcium Level 9.8 MG/DL (8.5-10.1) Magnesium Level 2.3 MG/DL (1.8-2.4) Total Bilirubin 0.4 MG/DL (0.2-1.0) Aspartate Amino Transf (AST/SGOT) 60 U/L (15-37) H Alanine Aminotransferase (ALT/SGPT) 48 U/L (12-78) Alkaline Phosphatase 125 U/L (46-116) H Total Creatine Kinase 84 U/L (26-308) Creatine Kinase MB 1.8 NG/ML (0.0-3.6) Creatine Kinase MB Relative Index 2.1 Troponin I 0.000 ng/mL (0.000-0.056) Pro-B-Type Natriuretic Peptide 550 pg/mL (0-125) H Total Protein 8.6 G/DL (6.4-8.2) H Albumin 2.7 G/DL (3.4-5.0) L Globulin 5.9 g/dL Albumin/Globulin Ratio 0.5 (1.0-2.7) L Arterial Blood pH 7.314 (7.350-7.450) Arterial Blood Partial Pressure CO2 37.1 mmHg (35.0-45.0) Arterial Blood Partial Pressure O2 146.0 mmHg (75.0-100.0) H Arterial Blood HCO3 18.4 mmol/L (22.0-26.0) L Arterial Blood Oxygen Saturation 98.5 % (95-100) Arterial Blood Base Excess -7.1 (-2-2) L Watson Test Positive Vital Signs Last 24 Hour Vital Signs Date Time Temp Pulse Resp B/P (MAP) Pulse Ox O2 Delivery O2 Flow Rate FiO2 07/18/19 12:16 101 20 100 Non-Rebreather 15.0 100 80 20 98 07/18/19 11:31 98.2 56 28 107/49 (68) 95 Non-Rebreather Respiratory Exam: Wheezes Cardiovascular Exam: RRR Capillary Refill: Less Than 2 Seconds Peripheral Pulse: Siomara Hwang M.D. Jul 18, 2019 12:52
[2019-07-18 12:55] LABS: ALANINE AMINOTRANSFERASE 48 U/L (12-78); ALBUMIN 2.7 G/DL (3.4-5.0); ALBUMIN/GLOBULIN RATIO 0.5 (1.0-2.7); ALKALINE PHOSPHATASE 125 U/L (46-116); ASPARTATE AMINO TRANSFERASE 60 U/L (15-37); BILIRUBIN,TOTAL 0.4 MG/DL (0.2-1.0); CKMB 1.8 NG/ML (0.0-3.6); CREATINE KINASE 84 U/L (26-308)
--- NOTE | 2019-07-18 13:15 | Diagnostic Imaging Report ---
Indication: Dyspnea Comparison: 10/25/2018 A single view chest radiograph was obtained. Findings: Patchy bilateral perihilar and lower lobe infiltrates are demonstrated. Heart size is normal. Aorta is mildly ectatic. Bones are osteopenic. IMPRESSION: Perihilar and basilar infiltrates. Findings suspicious for pneumonia.
--- NOTE | 2019-07-18 13:41 | NUR ---
ED Nurse Note: Reflec lactic sent.
[2019-07-18] MEDS ORDERED: Albuterol/Ipratropium 3ml neb HHN PRN (14:15)
[2019-07-18] MEDS ORDERED: Miralax 17gm pkt ORAL PRN (14:15)
--- NOTE | 2019-07-18 14:55 | NUR ---
ED Nurse Note: Pt transferred to ICU. Report given to Emmie QUINN. Pt took all belongings. Received by RN.
--- NOTE | 2019-07-18 14:56 | NUR ---
ED Nurse Note: Endorsed Levophed and NS to KAI Olea.
[2019-07-18 14:59] LABS: APPEARANCE,URINE SLIGHTLY CLOUDY; BILIRUBIN, URINE NEGATIVE (NEGATIVE); GLUCOSE, URINE (UA) NEGATIVE (NEGATIVE); KETONES,URINE 2+ (NEGATIVE); LEUKOCYTE ESTERASE ,URINE 3+ (NEGATIVE); NITRITE,URINE NEGATIVE (NEGATIVE); PH,URINE 5 (4.5-8.0); PROTEIN,URINE 2+ (NEGATIVE); UROBILINOGEN,URINE NORMAL MG/DL (0.0-1.0)
--- NOTE | 2019-07-18 15:00 | NUR ---
NURSE NOTES: Pt arrived in the unit via gurney. No belongings noted. Pt opens eyes spontaneously and able to localize to pain. Non-verbal and moans. Does not follow commands. Rectal temp 93.5. Bear hugger on. On Non-rebreather 100%. O2 sat 100%. Yellow thick secretion noted. Oral suction done. Sinus rhythm with PACs on surveillance monitor. Kept NPO as ordered. IV to right FA G20 and Left AC G18 patent and asymptomatic. Bed in lowest position. Side rails up x3. Will resume plan of care.
[2019-07-18 15:05] LABS: COLOR,URINE YELLOW
[2019-07-18] MEDS ORDERED: Sodium Polystyrene Sulfonate 15gm Powder ORAL SCH (16:45)
--- NOTE | 2019-07-18 16:45 | NUR ---
NURSE NOTES: Notified Dr Hui regarding elevated K 5.7, elevated BUN and creatinine. Order received, noted, and carried out.
[2019-07-18] MEDS ORDERED: Amikacin 500 MG in NS 110 ML IV ONE (17:00)
[2019-07-18] MEDS ORDERED: Ertapenem 0.5 GM in NS 55 ML IV SCH (18:00)
--- NOTE | 2019-07-18 18:00 | NUR ---
NURSE NOTES: Inserted right nare NGT. Pt tolerated well. STAT KUB ordered to confirm placement. Addendum: 07/18/19 at 1844 by ANNAMARIE GARAY RN RN NURSE NOTES: Inserted right nare NGT. Pt tolerated well. STAT KUB ordered to confirm placement. Kayexalate 30mg PO has been held. Awaiting KUB to be done before administration.
--- NOTE | 2019-07-18 19:15 | NUR ---
HAND-OFF: Report given to KAI Galan.
--- NOTE | 2019-07-18 19:16 | NUR ---
NURSE NOTES: Received Patient from [place]. Patient is aaox0, NG tube in place, IV site right 20g, left AC 18g running NS at 100cc/hr. Patient is disoriented and mumbling. No skin issues. Call light in reach, bed at its lowest position and x3 bed rails are up.
--- NOTE | 2019-07-18 19:21 | History & Physical ---
History and Physical History & Physicial Dictated for Int Med-DR Hayes no. [id number]. ICU Xander Bah MD Jul 18, 2019 19:21
[2019-07-18] MEDS: Heparin 5000 units/ml inj SUBQ SCH (21:13)
--- NOTE | 2019-07-18 22:00 | NUR ---
NURSE NOTES: cardiopulmonary technician and eeg tech at bedside. Unable to advance NG tube. Tech will comeback.
--- NOTE | 2019-07-18 22:30 | NUR ---
NURSE NOTES: KAI Jean assisted me in placing the NG tube and patient pulled it out. NG tube replaced. Waiting for mix technician.
[2019-07-18] MEDS ORDERED: Vancomycin 1 GM in D5W 275 ML IV SCH (23:45)
[2019-07-19] VITALS (24 sets, daily range): BP systolic 97–132; BP diastolic 36–64
--- NOTE | 2019-07-19 | NUR ---
NURSE NOTES: Image tech at bedside while I was with another patient.
--- NOTE | 2019-07-19 00:45 | History and Physical Report ---
DATE OF ADMISSION: 07/18/2019 CHIEF COMPLAINT: The patient is an 84-year-old male, who is admitted with a chief complaint of altered mental status. HISTORY OF PRESENT ILLNESS: The patient is a resident of [facility]. According to staff at [facility], the patient became increasingly altered over the last 24 hours. The patient presented to [facility]. The patient is admitted with altered mental status, to rule out acute cerebrovascular accident versus sepsis. REVIEW OF SYSTEMS: Unable to assess secondary to the patient's mental status. PAST MEDICAL HISTORY: Significant for: 1. Type 2 diabetes. 2. Hypertension. 3. Cerebrovascular disease, status post cerebrovascular accident. PAST SURGICAL HISTORY: Unknown. CURRENT MEDICATIONS: 1. Levothyroxine 0.025 mg p.o. daily. 2. Mirtazapine 15 mg p.o. at bedtime. 3. Seroquel 25 mg p.o. q.8 hours. ALLERGIES: Penicillin. SOCIAL HISTORY: The patient is single and is a resident of [facility]. The patient denies tobacco or alcohol use. PHYSICAL EXAMINATION: VITAL SIGNS: Temperature 98.6, respirations 21, pulse 76, blood pressure 114/60, oxygen saturation 99% on a non-rebreather. GENERAL: The patient is a well-developed, well-nourished, thin-appearing male, who is in moderate respiratory distress. HEENT: Eyes, pupils are equal and responsive to light and accommodation. Extraocular movements are intact. NECK: Supple without lymphadenopathy. CHEST: Lungs are clear to auscultation bilaterally without wheezes or rales. CARDIOVASCULAR: Regular rhythm and rate. S1 and S2 are normal without murmurs, rubs, or gallops. ABDOMEN: Soft, nontender, and nondistended. Positive bowel sounds. No evidence of hepatosplenomegaly. Currently, no rebound or guarding noted. EXTREMITIES: Negative for clubbing, cyanosis, or edema. RECTAL/GENITAL: Not performed. NEUROLOGIC: Cranial nerves II through XII are grossly intact without focal deficits. Motor strength is 5/5 bilaterally. Deep tendon reflexes are 2+ plantar. A chest x-ray revealed perihilar and basilar infiltrates consistent with pneumonia. LABORATORY STUDIES: WBC 15.9, hemoglobin 10.4, hematocrit 33.2, and platelets . Sodium 144, potassium 5.7, chloride 110, CO2 19, BUN 48, creatinine . Lactic acid 5.50. AST elevated at 60 and alkaline phosphatase elevated at 125. Troponin normal at 0.0. BNP elevated at 550. ASSESSMENT: This is an 84-year-old male. 1. Bilateral pneumonia. 2. Respiratory failure. 3. Probable sepsis. 4. Altered mental status. 5. Diabetes type 2. 6. Hypothyroidism. 7. Cerebrovascular disease. 8. Acute renal failure. TREATMENT: 1. Respiratory failure/bilateral pneumonia. A Pulmonary consultation has been obtained with Dr. Vania Hui. The patient is currently admitted to the intensive care unit. The patient is currently on a non-rebreather mask. The patient has been started empirically on vancomycin, amikacin, and ertapenem. A sputum culture is pending. Await sputum culture results. 2. Altered mental status. This is probably secondary to hypoxia secondary to pneumonia as above. 3. Diabetes type 2. The patient was admitted without antihyperglycemic medication. 4. Hypothyroidism. Continue Levoxyl as above. 5. Cerebrovascular disease. The patient is status post cerebrovascular accident. 6. Acute renal failure. This may be secondary to acute dehydration. The patient is currently receiving intravenous fluids. Xander Bah M.D. DR: CHINEDU JOB#: [id number] CC:
--- NOTE | 2019-07-19 02:30 | NUR ---
NURSE NOTES: plastics technician, Alex called to report image has not been read yet.
--- NOTE | 2019-07-19 03:09 | Diagnostic Imaging Report ---
Indication: Post nasogastric intubation Technique: One view of the chest Comparison: none Findings: Nasogastric tube tip projects at the level of the gastroesophageal junction. There is questionably some free air under the left hemidiaphragm. There is prominent small bowel gas although small bowel is not frankly dilated there are cholecystectomy clips. The included lower chest demonstrates considerable parenchymal disease Impression: High position of nasogastric tube. Advancement recommended. This agrees with the [facility] preliminary report Possible free air under the left hemidiaphragm. This finding was not reported on the [facility] preliminary report, was phoned to Dr. Hui at the time of interpretation
[2019-07-19] MEDS: Levothyroxine 25mcg tab ORAL SCH (06:57)
--- NOTE | 2019-07-19 07:15 | NUR ---
HAND-OFF: Report given to KAI Méndez.
[2019-07-19 07:20] LABS: ALANINE AMINOTRANSFERASE 34 U/L (12-78); ALBUMIN 2.1 G/DL (3.4-5.0); ALBUMIN/GLOBULIN RATIO 0.4 (1.0-2.7); ALKALINE PHOSPHATASE 96 U/L (46-116); ANION GAP 9 mmol/L (5-15); ASPARTATE AMINO TRANSFERASE 35 U/L (15-37); BILIRUBIN,DIRECT < 0.1 MG/DL (0.0-0.3); BILIRUBIN,TOTAL 0.3 MG/DL (0.2-1.0); BLOOD UREA NITROGEN 41 mg/dL (7-18); CARBON DIOXIDE 23 MMOL/L (21-32); CHLORIDE 119 MMOL/L (98-107); CREATININE 1.8 MG/DL (0.55-1.30); POTASSIUM 5.3 MMOL/L (3.5-5.1); SODIUM 150 MMOL/L (136-145)
--- NOTE | 2019-07-19 07:20 | NUR ---
NURSE NOTES: Received bedside report from Adama Nguyễn RN. Observed patient in bed, opens eyes spontaneously. On nonrebreather mask, saturating 100%, no respiratory distress noted. OGT noted in place. Muniz catheter noted, intact and draining well with pale yellow color urine output noted. Right FA 20g and left AC 18g intact and patent with IV fluids infusing at prescribed rate. Bed locked, alarmed, and in lowest position, side rails up x3, and call light left within reach. Will continue plan of care and will continue to monitor patient. Addendum: 07/19/19 at 0829 by Honey Navarro RN Correction on notes: Condom catheter noted
[2019-07-19 07:30] LABS: HEMATOCRIT 25.8 % (42.0-52.0); HEMOGLOBIN 8.3 G/DL (14.2-18.0); MEAN CORPUSCULAR VOLUME 79 FL (80-99); PLATELET COUNT 235 K/UL (150-450); RED BLOOD COUNT 3.26 M/UL (4.70-6.10); RED CELL DISTRIBUTION WIDTH 15.9 % (11.6-14.8)
--- NOTE | 2019-07-19 07:30 | NUR ---
NURSE NOTES: Fingerstick glucose done; 276mg/dL. Repeat CMP ordered, notified lab.
--- NOTE | 2019-07-19 07:32 | NUR ---
NURSE NOTES: Dr Hayes contacted and notified regarding abnormal lab results: sodium, potassium and blood glucose level. Awaiting for call back orders.
--- NOTE | 2019-07-19 07:45 | NUR ---
NURSE NOTES: Dr Rosario called in the unit; notified and made aware CT results are up. No new orders received, will continue to monitor patient.
--- NOTE | 2019-07-19 07:47 | NUR ---
NURSE NOTES: RT placed patient back to 3L via NC, patient saturating 100%, no respiratory distress noted. Will continue to monitor.
[2019-07-19] MEDS: Pantoprazole Inj IVP SCH (08:26)
[2019-07-19] MEDS: Heparin 5000 units/ml inj SUBQ SCH ×2 (08:27→20:47)
--- NOTE | 2019-07-19 08:37 | NUR ---
NURSE NOTES: Dr Hayes responded, no new orders given. Lab at bedside for repeat CMP. Will continue to monitor patient.
[2019-07-19] MEDS ORDERED: Vancomycin 1.25gm/NS Premix IVPB ONE (09:00)
--- NOTE | 2019-07-19 09:01 | NUR ---
NURSE NOTES: Dr Benites at bedside, notified and made aware of lab results. No new orders at this time, will continue to monitor patient.
[2019-07-19 09:13] LABS: ANION GAP 12 mmol/L (5-15); BLOOD UREA NITROGEN 41 mg/dL (7-18); CALCIUM 8.8 MG/DL (8.5-10.1); CARBON DIOXIDE 21 MMOL/L (21-32); CHLORIDE 116 MMOL/L (98-107); CREATININE 1.8 MG/DL (0.55-1.30); POTASSIUM 4.9 MMOL/L (3.5-5.1); SODIUM 149 MMOL/L (136-145)
[2019-07-19 09:20] LABS: ALANINE AMINOTRANSFERASE 38 U/L (12-78); ALBUMIN 2.1 G/DL (3.4-5.0); ALBUMIN/GLOBULIN RATIO 0.4 (1.0-2.7); ALKALINE PHOSPHATASE 99 U/L (46-116); ASPARTATE AMINO TRANSFERASE 39 U/L (15-37); BILIRUBIN,TOTAL 0.3 MG/DL (0.2-1.0)
--- NOTE | 2019-07-19 09:30 | NUR ---
NURSE NOTES: RT placed patient on Venturi mask 14L, FiO2 55%. Patient tolerating well, saturating 100%. Dr Hui at bedside, notified and made aware. Will continue to monitor.
--- NOTE | 2019-07-19 09:35 | NUR ---
RADIOLOGY DEPT., CHEST X-RAY DONE.-P.DYE
--- NOTE | 2019-07-19 09:44 | Consultation ---
History of Present Illness General Date patient seen: Jul 18, 2019 Chief Complaint: General Complaint Present Illness HPI 84-year-old male past medical history of diabetes, hypertension, hypothyroidism , CVA, UTI, anemia, dementia, senior living resident brought in from his extended care facility for altered mental status. Patient was non-verbal therefore history is limited. Pt was diagnosed to have pneumonia and sepsis. He is admitted to ICU. Allergies: Coded Allergies: PENICILLINS (Verified Allergy, Unknown, 10/27/18) tolretas cephalosporins Medication History Scheduled Levothyroxine Sodium* (Synthroid*), 25 MCG ORAL DAILY@0630 Mirtazapine* (Mirtazapine*), 7.5 MG ORAL BEDTIME Mirtazapine* (Remeron*), 15 MG ORAL BEDTIME, (Reported) Scheduled PRN Quetiapine Fumarate* (Seroquel*), 25 MG ORAL Q8H PRN Patient History Healthcare decision maker Yoly Vazquez/ Janki Resuscitation status Full Code Advanced Directive on File No Past Medical/Surgical History Past Medical/Surgical History: (1) Alzheimer's dementia (2) History of CVA (cerebrovascular accident) (3) Diabetes mellitus (4) Hypothyroidism Review of Systems All Other Systems: negative except mentioned in HPI Physical Exam General Appearance: cachetic, thin Lines, tubes and drains: peripheral HEENT: normocephalic, atraumatic Neck: non-tender, normal alignment Respiratory/Chest: rhonchi - left, rhonchi - right Cardiovascular/Chest: normal peripheral pulses, normal rate Abdomen: normal bowel sounds, non tender Genitourinary/Rectal: normal genital exam, normal rectal exam Extremities: normal range of motion, non-tender Skin Exam: normal pigmentation Last 24 Hour Vital Signs Date Time Temp Pulse Resp B/P (MAP) Pulse Ox O2 Delivery O2 Flow Rate FiO2 07/19/19 09:00 84 30 118/50 (72) 100 07/19/19 08:02 86 07/19/19 08:00 15.0 07/19/19 08:00 98.9 84 30 118/50 (72) 100 07/19/19 08:00 Non-Rebreather 15.0 07/19/19 07:46 100 Non-Rebreather 100 07/19/19 07:00 84 35 132/59 (83) 100 07/19/19 06:00 97.6 84 30 118/50 (72) 100 07/19/19 05:00 86 31 106/37 (60) 100 07/19/19 04:00 Non-Rebreather 15.0 07/19/19 04:00 92 19 120/49 (72) 100 07/19/19 04:00 89 07/19/19 04:00 15.0 07/19/19 03:00 98.8 86 26 112/45 (67) 100 07/19/19 02:00 91 30 114/45 (68) 100 07/19/19 01:00 89 22 116/49 (71) 100 07/19/19 00:00 Non-Rebreather 15.0 07/19/19 00:00 98.7 89 19 111/52 (71) 100 07/19/19 00:00 86 07/18/19 23:00 97.6 81 24 124/59 (80) 100 07/18/19 22:00 76 32 101/48 (65) 99 07/18/19 21:00 83 22 127/56 (79) 97 07/18/19 21:00 94.4 75 24 122/98 (106) 100 07/18/19 20:00 74 07/18/19 20:00 15.0 07/18/19 20:00 Non-Rebreather 15.0 07/18/19 20:00 72 23 91/49 (63) 100 07/18/19 19:00 74 28 93/53 (66) 100 07/18/19 18:00 93.6 75 25 122/40 (67) 100 07/18/19 17:00 72 24 127/42 (70) 100 07/18/19 16:08 71 07/18/19 16:00 71 24 91/46 (61) 100 07/18/19 16:00 15.0 07/18/19 15:59 Non-Rebreather 15.0 07/18/19 15:32 72 07/18/19 15:00 93.5 72 21 95/53 (67) 100 07/18/19 15:00 15.0 07/18/19 14:55 98.6 76 21 114/60 99 Non-Rebreather 15.0 07/18/19 14:50 98.6 63 22 120/68 100 Non-Rebreather 07/18/19 13:30 98.6 82 21 112/72 99 Non-Rebreather 07/18/19 12:16 101 20 100 Non-Rebreather 15.0 100 80 20 98 07/18/19 12:10 76 22 Non-Rebreather 95 07/18/19 12:10 98.6 76 22 110/66 97 Non-Rebreather 07/18/19 11:31 98.2 56 28 107/49 (68) 95 Non-Rebreather Intake and Output 07/18/19 07/19/19 19:00 07:00 Intake Total 1462 ml 686.6667 ml Output Total 915 ml Balance 1462 ml -228.3333 ml Intake Oral 0 ml IV Total 1462 ml 686.6667 ml Output Urine Total 915 ml # Voids 9 Laboratory Tests Test 07/18/19 11:55 07/18/19 12:10 07/18/19 13:20 07/18/19 14:40 White Blood Count 15.9 K/UL (4.8-10.8) H Red Blood Count 4.14 M/UL (4.70-6.10) L Hemoglobin 10.4 G/DL (14.2-18.0) L Hematocrit 33.2 % (42.0-52.0) L Mean Corpuscular Volume 80 FL (80-99) Mean Corpuscular Hemoglobin 25.0 PG (27.0-31.0) L Mean Corpuscular Hemoglobin Concent 31.3 G/DL (32.0-36.0) L Red Cell Distribution Width 15.9 % (11.6-14.8) H Platelet Count 313 K/UL (150-450) Mean Platelet Volume 6.3 FL (6.5-10.1) L Neutrophils (%) (Auto) % (45.0-75.0) Lymphocytes (%) (Auto) % (20.0-45.0) Monocytes (%) (Auto) % (1.0-10.0) Eosinophils (%) (Auto) % (0.0-3.0) Basophils (%) (Auto) % (0.0-2.0) Differential Total Cells Counted 100 Neutrophils % (Manual) 68 % (45-75) Lymphocytes % (Manual) 3 % (20-45) L Monocytes % (Manual) 4 % (1-10) Eosinophils % (Manual) 0 % (0-3) Basophils % (Manual) 0 % (0-2) Band Neutrophils 25 % (0-8) H Platelet Estimate Adequate Platelet Morphology Normal Hypochromasia 1+ Anisocytosis 1+ Prothrombin Time 10.9 SEC (9.30-11.50) Prothromb Time International Ratio 1.0 (0.9-1.1) Activated Partial Thromboplast Time 26 SEC (23-33) Sodium Level 144 MMOL/L (136-145) Potassium Level 5.7 MMOL/L (3.5-5.1) H Chloride Level 110 MMOL/L (98-107) H Carbon Dioxide Level 19 MMOL/L (21-32) L Anion Gap 15 mmol/L (5-15) Blood Urea Nitrogen 48 mg/dL (7-18) H Creatinine 2.6 MG/DL (0.55-1.30) H Estimat Glomerular Filtration Rate mL/min (>60) Glucose Level 101 MG/DL (74-106) Lactic Acid Level 5.50 mmol/L (0.4-2.0) H 6.40 mmol/L (0.66-2.22) H Calcium Level 9.8 MG/DL (8.5-10.1) Magnesium Level 2.3 MG/DL (1.8-2.4) Total Bilirubin 0.4 MG/DL (0.2-1.0) Aspartate Amino Transf (AST/SGOT) 60 U/L (15-37) H Alanine Aminotransferase (ALT/SGPT) 48 U/L (12-78) Alkaline Phosphatase 125 U/L (46-116) H Total Creatine Kinase 84 U/L (26-308) Creatine Kinase MB 1.8 NG/ML (0.0-3.6) Creatine Kinase MB Relative Index 2.1 Troponin I 0.000 ng/mL (0.000-0.056) Pro-B-Type Natriuretic Peptide 550 pg/mL (0-125) H Total Protein 8.6 G/DL (6.4-8.2) H Albumin 2.7 G/DL (3.4-5.0) L Globulin 5.9 g/dL Albumin/Globulin Ratio 0.5 (1.0-2.7) L Arterial Blood pH 7.314 (7.350-7.450) Arterial Blood Partial Pressure CO2 37.1 mmHg (35.0-45.0) Arterial Blood Partial Pressure O2 146.0 mmHg (75.0-100.0) H Arterial Blood HCO3 18.4 mmol/L (22.0-26.0) L Arterial Blood Oxygen Saturation 98.5 % (95-100) Arterial Blood Base Excess -7.1 (-2-2) L Watson Test Positive Urine Color Yellow Urine Appearance Slightly cloudy Urine pH 5 (4.5-8.0) Urine Specific Channing 1.015 (1.005-1.035) Urine Protein 2+ (NEGATIVE) H Urine Glucose (UA) Negative (NEGATIVE) Urine Ketones 2+ (NEGATIVE) H Urine Blood 3+ (NEGATIVE) H Urine Nitrite Negative (NEGATIVE) Urine Bilirubin Negative (NEGATIVE) Urine Urobilinogen Normal MG/DL (0.0-1.0) Urine Leukocyte Esterase 3+ (NEGATIVE) H Urine RBC 2-4 /HPF (0 - 0) H Urine WBC 15-20 /HPF (0 - 0) H Urine Squamous Epithelial Cells Few /LPF (NONE/OCC) Urine Bacteria Few /HPF (NONE) Test 07/18/19 19:48 07/18/19 23:59 07/19/19 06:00 07/19/19 08:30 Lactic Acid Level 6.10 mmol/L (0.4-2.0) H 3.60 mmol/L (0.4-2.0) H 2.30 mmol/L (0.66-2.22) H White Blood Count 8.0 K/UL (4.8-10.8) Red Blood Count 3.26 M/UL (4.70-6.10) L Hemoglobin 8.3 G/DL (14.2-18.0) L Hematocrit 25.8 % (42.0-52.0) L Mean Corpuscular Volume 79 FL (80-99) L Mean Corpuscular Hemoglobin 25.4 PG (27.0-31.0) L Mean Corpuscular Hemoglobin Concent 32.0 G/DL (32.0-36.0) Red Cell Distribution Width 15.9 % (11.6-14.8) H Platelet Count 235 K/UL (150-450) Mean Platelet Volume 6.5 FL (6.5-10.1) Neutrophils (%) (Auto) % (45.0-75.0) Lymphocytes (%) (Auto) % (20.0-45.0) Monocytes (%) (Auto) % (1.0-10.0) Eosinophils (%) (Auto) % (0.0-3.0) Basophils (%) (Auto) % (0.0-2.0) Differential Total Cells Counted 100 Neutrophils % (Manual) 91 % (45-75) H Lymphocytes % (Manual) 6 % (20-45) L Monocytes % (Manual) 2 % (1-10) Eosinophils % (Manual) 1 % (0-3) Basophils % (Manual) 0 % (0-2) Band Neutrophils 0 % (0-8) Platelet Estimate Adequate Platelet Morphology Normal Hypochromasia 2+ Anisocytosis 1+ Microcytosis 1+ Sodium Level 150 MMOL/L (136-145) H 149 MMOL/L (136-145) H Potassium Level 5.3 MMOL/L (3.5-5.1) H 4.9 MMOL/L (3.5-5.1) Chloride Level 119 MMOL/L (98-107) H 116 MMOL/L (98-107) H Carbon Dioxide Level 23 MMOL/L (21-32) 21 MMOL/L (21-32) Anion Gap 9 mmol/L (5-15) 12 mmol/L (5-15) Blood Urea Nitrogen 41 mg/dL (7-18) H 41 mg/dL (7-18) H Creatinine 1.8 MG/DL (0.55-1.30) H 1.8 MG/DL (0.55-1.30) H Estimat Glomerular Filtration Rate mL/min (>60) mL/min (>60) Glucose Level 41 MG/DL (74-106) L 61 MG/DL (74-106) L Calcium Level 9.0 MG/DL (8.5-10.1) 8.8 MG/DL (8.5-10.1) Total Bilirubin 0.3 MG/DL (0.2-1.0) 0.3 MG/DL (0.2-1.0) Direct Bilirubin < 0.1 MG/DL (0.0-0.3) Aspartate Amino Transf (AST/SGOT) 35 U/L (15-37) 39 U/L (15-37) H Alanine Aminotransferase (ALT/SGPT) 34 U/L (12-78) 38 U/L (12-78) Alkaline Phosphatase 96 U/L (46-116) 99 U/L (46-116) Total Protein 6.9 G/DL (6.4-8.2) 7.1 G/DL (6.4-8.2) Albumin 2.1 G/DL (3.4-5.0) L 2.1 G/DL (3.4-5.0) L Globulin 4.8 g/dL 5.0 g/dL Albumin/Globulin Ratio 0.4 (1.0-2.7) L 0.4 (1.0-2.7) L Random Amikacin Level Pending Random Vancomycin Level 6.7 ug/mL Microbiology Date/Time Source Procedure Growth Status 07/18/19 12:19 Nasal Nares - Final Complete 07/18/19 12:19 Nasal Nares - Final Complete 07/18/19 14:40 Urine,Clean Catch Urine Culture - Preliminary Resulted 07/18/19 14:14 Rectum Received Height (Feet): 6 Height (Inches): 1.00 Weight (Pounds): 149 Medications Current Medications Medications (Trade) Dose Ordered Sig/Kike Route PRN Reason Start Time Stop Time Status Last Admin Dose Admin Acetaminophen (Tylenol) 650 mg Q4H PRN ORAL fever 07/18/19 14:15 08/17/19 14:14 Albuterol/ Ipratropium (Albuterol/ Ipratropium) 3 ml Q4H PRN HHN Shortness of Breath 07/18/19 14:15 07/23/19 14:14 Ertapenem 0.5 gm/ Sodium Chloride 55 ml @ 110 mls/hr Q24H IV 07/18/19 18:00 07/23/19 17:59 07/18/19 18:35 Heparin Sodium (Porcine) (Heparin 5000 units/ml) 5,000 units EVERY 12 HOURS SUBQ 07/18/19 21:00 08/17/19 20:59 07/19/19 08:27 Levothyroxine Sodium (Synthroid) 25 mcg DAILY@0630 ORAL 07/19/19 06:30 08/18/19 06:29 07/19/19 06:57 Mirtazapine (Remeron) 7.5 mg BEDTIME ORAL 07/18/19 21:00 08/17/19 20:59 07/18/19 21:12 Norepinephrine Bitartrate 4 mg/ Dextrose 254 ml @ 0 mls/hr Q24H IV 07/18/19 14:15 08/17/19 14:14 Ondansetron HCl (Zofran) 4 mg Q6H PRN IVP Nausea & Vomiting 07/18/19 14:15 08/17/19 14:14 Pantoprazole (Protonix) 40 mg DAILY IVP 07/19/19 09:00 08/18/19 08:59 07/19/19 08:26 Polyethylene Glycol (Miralax) 17 gm DAILYPRN PRN ORAL Constipation 07/18/19 14:15 08/17/19 14:14 Quetiapine Fumarate (SEROqueL) 25 mg Q8H PRN ORAL agitation 07/18/19 14:15 08/17/19 14:14 Sodium Chloride 1,000 ml @ 100 mls/hr Q10H IVLG 07/18/19 14:15 08/17/19 14:14 07/19/19 09:00 Vancomycin HCl (Vanco rx to dose) 1 ea DAILY PRN MISC Per rx protocol 07/18/19 14:30 08/17/19 14:29 Vancomycin/Sodium Chloride 275 ml @ 183.333 mls/hr ONCE ONCE IVPB 07/19/19 09:00 07/19/19 10:29 07/19/19 09:00 Assessment/Plan Problem List: (1) Nosocomial pneumonia ICD Codes: J18.9 - Pneumonia, unspecified organism; Y95 - Nosocomial condition SNOMED: 764162575 (2) Sepsis ICD Codes: A41.9 - Sepsis, unspecified organism SNOMED: 59370814 (3) Acute renal failure ICD Codes: N17.9 - Acute kidney failure, unspecified SNOMED: 66568258 (4) Acute metabolic encephalopathy ICD Codes: G93.41 - Metabolic encephalopathy SNOMED: 46145313, 354620518 (5) Severe anemia ICD Codes: D64.9 - Anemia, unspecified SNOMED: 681786943 (6) Alzheimer's dementia ICD Codes: G30.9 - Alzheimer's disease, unspecified; F02.80 - Dementia in other diseases classified elsewhere without behavioral disturbance SNOMED: 81887120 (7) History of CVA (cerebrovascular accident) ICD Codes: Z86.73 - Personal history of transient ischemic attack (TIA), and cerebral infarction without residual deficits SNOMED: 716864725 (8) Diabetes mellitus ICD Codes: E11.9 - Type 2 diabetes mellitus without complications SNOMED: 81828510 (9) Hypothyroidism ICD Codes: E03.9 - Hypothyroidism, unspecified SNOMED: 33945332 Assessment/Plan: iv fluids iv abx respiratory treatment sputum induction for c/s broad spectrum IV ABX renal studies NG tube for feeding dvt prophylaxis daily labs Vania Hui MD Jul 19, 2019 09:44
[2019-07-19 09:56] LABS: CREATINE KINASE 85 U/L (26-308)
--- NOTE | 2019-07-19 10:00 | NUR ---
NURSE NOTES: Repositioned patient, suctioned orally, patient tolerated well. OGT in place. Patient saturating 100% on Venturi Mask 14L, 55%. RT at bedside for ABG. IV fluids ongoing. No s/s of pain/discomfort. Bed locked, alarmed, and in lowest position, side rails up x3, call light left within reach. Will continue to monitor.
--- NOTE | 2019-07-19 10:54 | NUR ---
RD ASSESSMENT & RECOMMENDATIONS SEE CARE ACTIVITY FOR COMPLETE ASSESSMENT DAILY ESTIMATED NEEDS: Needs based on cardiac, DM, wound/ 70kg 25-30 kcals/kg 1057-7132 total kcals 1.25-1.4 g protein/kg 87-98 g total protein 25-30 mL/kg 4386-1401 total fluid mLs NUTRITION DIAGNOSIS: * Swallowing difficulty R/T dysphagia w/ h/o CVA, decreased cognitive fxn as evidenced by INJECTION MOLDING MACHINE SETTER recommends liquify pureed, HTL. * Increased kcal/prot needs R/T wound healing as evidenced by pt admitted w/ nonblanchable erythema to cleft of buttocks and scrotum and lt heel. CURRENT DIET:Regular/ liquify pureed, HTL PO DIET RECOMMENDATIONS: Maintain liberalized REGULAR w/ poor PO (Texture per INJECTION MOLDING MACHINE SETTER) ADDITIONAL RECOMMENDATIONS: * Calibrated bedscale wt for accurate CBW * LOW NA, CCHO MED diet w/ PO intake consistently >70% * Glucerna TID w/ meals * Monitor BGs closely, need for hypoglycemics (A1C=6.6, h/o DM) * Monitor lytes, replete as needed * Add MVI x 1 and Wesley 1pkt BID for wound healing
[2019-07-19 11:19] LABS: APPEARANCE,URINE CLEAR; BILIRUBIN, URINE NEGATIVE (NEGATIVE); COLOR,URINE PALE YELLOW; GLUCOSE, URINE (UA) NEGATIVE (NEGATIVE); KETONES,URINE NEGATIVE (NEGATIVE); LEUKOCYTE ESTERASE ,URINE 3+ (NEGATIVE); NITRITE,URINE NEGATIVE (NEGATIVE); PH,URINE 6 (4.5-8.0); PROTEIN,URINE 2+ (NEGATIVE); UROBILINOGEN,URINE NORMAL MG/DL (0.0-1.0)
--- NOTE | 2019-07-19 11:38 | Consultation ---
History of Present Illness General Date patient seen: Jul 19, 2019 Chief Complaint: General Complaint Present Illness HPI 84 y/o M with hx of Dm2, HTN, non verbal, hypothyroidism, CVA, UTI, anemia, dementia, [facility] [facility] resident presented to ED on 07/18 with altered mental status Allergies: Coded Allergies: PENICILLINS (Verified Allergy, Unknown, 10/27/18) tolretas cephalosporins Medication History Scheduled Levothyroxine Sodium* (Synthroid*), 25 MCG ORAL DAILY@0630 Mirtazapine* (Mirtazapine*), 7.5 MG ORAL BEDTIME Mirtazapine* (Remeron*), 15 MG ORAL BEDTIME, (Reported) Scheduled PRN Quetiapine Fumarate* (Seroquel*), 25 MG ORAL Q8H PRN Patient History Healthcare decision maker Yoly Vazquez/ Janki Resuscitation status Full Code Advanced Directive on File No Patient History Narrative Pmhx: as above Shx:The patient is single and is a resident of [facility]. The patient denies tobacco or alcohol use. Fhx: non contributory Review of Systems All Other Systems: negative except mentioned in HPI Physical Exam Physical Exam Narrative GENERAL: The patient is a well-developed, well-nourished, thin-appearing male, who is in moderate respiratory distress. HEENT: Eyes, pupils are equal and responsive to light and accommodation. Extraocular movements are intact. NECK: Supple without lymphadenopathy. CHEST: Lungs are clear to auscultation bilaterally without wheezes or rales. CARDIOVASCULAR: Regular rhythm and rate. S1 and S2 are normal without murmurs, rubs, or gallops. ABDOMEN: Soft, nontender, and nondistended. Positive bowel sounds. No evidence of hepatosplenomegaly. Currently, no rebound or guarding noted. EXTREMITIES: Negative for clubbing, cyanosis, or edema. RECTAL/GENITAL: Not performed. NEUROLOGIC: Cranial nerves II through XII are grossly intact without focal deficits. Motor strength is 5/5 bilaterally. Deep tendon reflexes are 2+ plantar. Last 24 Hour Vital Signs Date Time Temp Pulse Resp B/P (MAP) Pulse Ox O2 Delivery O2 Flow Rate FiO2 07/19/19 11:00 76 29 119/47 (71) 100 07/19/19 10:00 84 37 117/51 (73) 100 07/19/19 10:00 84 37 100 07/19/19 09:00 84 30 118/50 (72) 100 07/19/19 08:02 86 07/19/19 08:00 15.0 07/19/19 08:00 98.9 84 30 118/50 (72) 100 07/19/19 08:00 Non-Rebreather 15.0 07/19/19 07:46 100 Non-Rebreather 100 07/19/19 07:00 84 35 132/59 (83) 100 07/19/19 06:00 97.6 84 30 118/50 (72) 100 07/19/19 05:00 86 31 106/37 (60) 100 07/19/19 04:00 Non-Rebreather 15.0 07/19/19 04:00 92 19 120/49 (72) 100 07/19/19 04:00 89 07/19/19 04:00 15.0 07/19/19 03:00 98.8 86 26 112/45 (67) 100 07/19/19 02:00 91 30 114/45 (68) 100 07/19/19 01:00 89 22 116/49 (71) 100 07/19/19 00:00 Non-Rebreather 15.0 07/19/19 00:00 98.7 89 19 111/52 (71) 100 07/19/19 00:00 86 07/18/19 23:00 97.6 81 24 124/59 (80) 100 07/18/19 22:00 76 32 101/48 (65) 99 07/18/19 21:00 83 22 127/56 (79) 97 07/18/19 21:00 94.4 75 24 122/98 (106) 100 07/18/19 20:00 74 07/18/19 20:00 15.0 07/18/19 20:00 Non-Rebreather 15.0 07/18/19 20:00 72 23 91/49 (63) 100 07/18/19 19:00 74 28 93/53 (66) 100 07/18/19 18:00 93.6 75 25 122/40 (67) 100 07/18/19 17:00 72 24 127/42 (70) 100 07/18/19 16:08 71 07/18/19 16:00 71 24 91/46 (61) 100 07/18/19 16:00 15.0 07/18/19 15:59 Non-Rebreather 15.0 07/18/19 15:32 72 07/18/19 15:00 93.5 72 21 95/53 (67) 100 07/18/19 15:00 15.0 07/18/19 14:55 98.6 76 21 114/60 99 Non-Rebreather 15.0 07/18/19 14:50 98.6 63 22 120/68 100 Non-Rebreather 07/18/19 13:30 98.6 82 21 112/72 99 Non-Rebreather 07/18/19 12:16 101 20 100 Non-Rebreather 15.0 100 80 20 98 07/18/19 12:10 76 22 Non-Rebreather 95 07/18/19 12:10 98.6 76 22 110/66 97 Non-Rebreather 07/18/19 11:31 98.2 56 28 107/49 (68) 95 Non-Rebreather Intake and Output 07/18/19 07/19/19 19:00 07:00 Intake Total 1462 ml 1086.6667 ml Output Total 915 ml Balance 1462 ml 171.6667 ml Intake Oral 0 ml IV Total 1462 ml 1086.6667 ml Output Urine Total 915 ml # Voids 9 Laboratory Tests Test 07/18/19 11:55 07/18/19 12:10 07/18/19 13:20 07/18/19 14:40 White Blood Count 15.9 K/UL (4.8-10.8) H Red Blood Count 4.14 M/UL (4.70-6.10) L Hemoglobin 10.4 G/DL (14.2-18.0) L Hematocrit 33.2 % (42.0-52.0) L Mean Corpuscular Volume 80 FL (80-99) Mean Corpuscular Hemoglobin 25.0 PG (27.0-31.0) L Mean Corpuscular Hemoglobin Concent 31.3 G/DL (32.0-36.0) L Red Cell Distribution Width 15.9 % (11.6-14.8) H Platelet Count 313 K/UL (150-450) Mean Platelet Volume 6.3 FL (6.5-10.1) L Neutrophils (%) (Auto) % (45.0-75.0) Lymphocytes (%) (Auto) % (20.0-45.0) Monocytes (%) (Auto) % (1.0-10.0) Eosinophils (%) (Auto) % (0.0-3.0) Basophils (%) (Auto) % (0.0-2.0) Differential Total Cells Counted 100 Neutrophils % (Manual) 68 % (45-75) Lymphocytes % (Manual) 3 % (20-45) L Monocytes % (Manual) 4 % (1-10) Eosinophils % (Manual) 0 % (0-3) Basophils % (Manual) 0 % (0-2) Band Neutrophils 25 % (0-8) H Platelet Estimate Adequate Platelet Morphology Normal Hypochromasia 1+ Anisocytosis 1+ Prothrombin Time 10.9 SEC (9.30-11.50) Prothromb Time International Ratio 1.0 (0.9-1.1) Activated Partial Thromboplast Time 26 SEC (23-33) Sodium Level 144 MMOL/L (136-145) Potassium Level 5.7 MMOL/L (3.5-5.1) H Chloride Level 110 MMOL/L (98-107) H Carbon Dioxide Level 19 MMOL/L (21-32) L Anion Gap 15 mmol/L (5-15) Blood Urea Nitrogen 48 mg/dL (7-18) H Creatinine 2.6 MG/DL (0.55-1.30) H Estimat Glomerular Filtration Rate mL/min (>60) Glucose Level 101 MG/DL (74-106) Lactic Acid Level 5.50 mmol/L (0.4-2.0) H 6.40 mmol/L (0.66-2.22) H Calcium Level 9.8 MG/DL (8.5-10.1) Magnesium Level 2.3 MG/DL (1.8-2.4) Total Bilirubin 0.4 MG/DL (0.2-1.0) Aspartate Amino Transf (AST/SGOT) 60 U/L (15-37) H Alanine Aminotransferase (ALT/SGPT) 48 U/L (12-78) Alkaline Phosphatase 125 U/L (46-116) H Total Creatine Kinase 84 U/L (26-308) Creatine Kinase MB 1.8 NG/ML (0.0-3.6) Creatine Kinase MB Relative Index 2.1 Troponin I 0.000 ng/mL (0.000-0.056) Pro-B-Type Natriuretic Peptide 550 pg/mL (0-125) H Total Protein 8.6 G/DL (6.4-8.2) H Albumin 2.7 G/DL (3.4-5.0) L Globulin 5.9 g/dL Albumin/Globulin Ratio 0.5 (1.0-2.7) L Arterial Blood pH 7.314 (7.350-7.450) Arterial Blood Partial Pressure CO2 37.1 mmHg (35.0-45.0) Arterial Blood Partial Pressure O2 146.0 mmHg (75.0-100.0) H Arterial Blood HCO3 18.4 mmol/L (22.0-26.0) L Arterial Blood Oxygen Saturation 98.5 % (95-100) Arterial Blood Base Excess -7.1 (-2-2) L Watson Test Positive Urine Color Yellow Urine Appearance Slightly cloudy Urine pH 5 (4.5-8.0) Urine Specific [place] 1.015 (1.005-1.035) Urine Protein 2+ (NEGATIVE) H Urine Glucose (UA) Negative (NEGATIVE) Urine Ketones 2+ (NEGATIVE) H Urine Blood 3+ (NEGATIVE) H Urine Nitrite Negative (NEGATIVE) Urine Bilirubin Negative (NEGATIVE) Urine Urobilinogen Normal MG/DL (0.0-1.0) Urine Leukocyte Esterase 3+ (NEGATIVE) H Urine RBC 2-4 /HPF (0 - 0) H Urine WBC 15-20 /HPF (0 - 0) H Urine Squamous Epithelial Cells Few /LPF (NONE/OCC) Urine Bacteria Few /HPF (NONE) Test 07/18/19 19:48 07/18/19 23:59 07/19/19 06:00 07/19/19 08:30 Lactic Acid Level 6.10 mmol/L (0.4-2.0) H 3.60 mmol/L (0.4-2.0) H 2.30 mmol/L (0.66-2.22) H White Blood Count 8.0 K/UL (4.8-10.8) Red Blood Count 3.26 M/UL (4.70-6.10) L Hemoglobin 8.3 G/DL (14.2-18.0) L Hematocrit 25.8 % (42.0-52.0) L Mean Corpuscular Volume 79 FL (80-99) L Mean Corpuscular Hemoglobin 25.4 PG (27.0-31.0) L Mean Corpuscular Hemoglobin Concent 32.0 G/DL (32.0-36.0) Red Cell Distribution Width 15.9 % (11.6-14.8) H Platelet Count 235 K/UL (150-450) Mean Platelet Volume 6.5 FL (6.5-10.1) Neutrophils (%) (Auto) % (45.0-75.0) Lymphocytes (%) (Auto) % (20.0-45.0) Monocytes (%) (Auto) % (1.0-10.0) Eosinophils (%) (Auto) % (0.0-3.0) Basophils (%) (Auto) % (0.0-2.0) Differential Total Cells Counted 100 Neutrophils % (Manual) 91 % (45-75) H Lymphocytes % (Manual) 6 % (20-45) L Monocytes % (Manual) 2 % (1-10) Eosinophils % (Manual) 1 % (0-3) Basophils % (Manual) 0 % (0-2) Band Neutrophils 0 % (0-8) Platelet Estimate Adequate Platelet Morphology Normal Hypochromasia 2+ Anisocytosis 1+ Microcytosis 1+ Sodium Level 150 MMOL/L (136-145) H 149 MMOL/L (136-145) H Potassium Level 5.3 MMOL/L (3.5-5.1) H 4.9 MMOL/L (3.5-5.1) Chloride Level 119 MMOL/L (98-107) H 116 MMOL/L (98-107) H Carbon Dioxide Level 23 MMOL/L (21-32) 21 MMOL/L (21-32) Anion Gap 9 mmol/L (5-15) 12 mmol/L (5-15) Blood Urea Nitrogen 41 mg/dL (7-18) H 41 mg/dL (7-18) H Creatinine 1.8 MG/DL (0.55-1.30) H 1.8 MG/DL (0.55-1.30) H Estimat Glomerular Filtration Rate mL/min (>60) mL/min (>60) Glucose Level 41 MG/DL (74-106) L 61 MG/DL (74-106) L Uric Acid 6.0 MG/DL (2.6-7.2) Calcium Level 9.0 MG/DL (8.5-10.1) 8.8 MG/DL (8.5-10.1) Total Bilirubin 0.3 MG/DL (0.2-1.0) 0.3 MG/DL (0.2-1.0) Direct Bilirubin < 0.1 MG/DL (0.0-0.3) Aspartate Amino Transf (AST/SGOT) 35 U/L (15-37) 39 U/L (15-37) H Alanine Aminotransferase (ALT/SGPT) 34 U/L (12-78) 38 U/L (12-78) Alkaline Phosphatase 96 U/L (46-116) 99 U/L (46-116) Total Creatine Kinase 85 U/L (26-308) Total Protein 6.9 G/DL (6.4-8.2) 7.1 G/DL (6.4-8.2) Albumin 2.1 G/DL (3.4-5.0) L 2.1 G/DL (3.4-5.0) L Globulin 4.8 g/dL 5.0 g/dL Albumin/Globulin Ratio 0.4 (1.0-2.7) L 0.4 (1.0-2.7) L Random Amikacin Level Pending Random Vancomycin Level 6.7 ug/mL Test 07/19/19 10:24 07/19/19 10:45 Arterial Blood pH 7.401 (7.350-7.450) Arterial Blood Partial Pressure CO2 30.5 mmHg (35.0-45.0) L Arterial Blood Partial Pressure O2 68.2 mmHg (75.0-100.0) L Arterial Blood HCO3 18.5 mmol/L (22.0-26.0) L Arterial Blood Oxygen Saturation 93.5 % (95-100) L Arterial Blood Base Excess -5.5 (-2-2) L Watson Test Positive Urine Color Pending Urine Appearance Pending Urine pH Pending Urine Specific [place] Pending Urine Protein Pending Urine Glucose (UA) Pending Urine Ketones Pending Urine Blood Pending Urine Nitrite Pending Urine Bilirubin Pending Urine Urobilinogen Pending Urine Leukocyte Esterase Pending Urine RBC Pending Urine WBC Pending Urine Squamous Epithelial Cells Pending Urine Bacteria Pending Urine Eosinophils Pending Urine Random Sodium Pending Urine Potassium Timed Pending Microbiology Date/Time Source Procedure Growth Status 07/18/19 12:19 Nasal Nares - Final Complete 07/18/19 12:19 Nasal Nares - Final Complete 07/18/19 14:40 Urine,Clean Catch Urine Culture - Preliminary Resulted 07/18/19 14:14 Rectum Received Height (Feet): 6 Height (Inches): 1.00 Weight (Pounds): 149 Medications Current Medications Medications (Trade) Dose Ordered Sig/Kike Route PRN Reason Start Time Stop Time Status Last Admin Dose Admin Acetaminophen (Tylenol) 650 mg Q4H PRN ORAL fever 07/18/19 14:15 08/17/19 14:14 Albuterol/ Ipratropium (Albuterol/ Ipratropium) 3 ml Q4H PRN HHN Shortness of Breath 07/18/19 14:15 07/23/19 14:14 Dextrose 1,000 ml @ 50 mls/hr Q20H IV 07/19/19 10:00 08/18/19 09:59 07/19/19 10:00 Ertapenem 0.5 gm/ Sodium Chloride 55 ml @ 110 mls/hr Q24H IV 07/18/19 18:00 07/23/19 17:59 07/18/19 18:35 Heparin Sodium (Porcine) (Heparin 5000 units/ml) 5,000 units EVERY 12 HOURS SUBQ 07/18/19 21:00 08/17/19 20:59 07/19/19 08:27 Levothyroxine Sodium (Synthroid) 25 mcg DAILY@0630 ORAL 07/19/19 06:30 08/18/19 06:29 07/19/19 06:57 Norepinephrine Bitartrate 4 mg/ Dextrose 254 ml @ 0 mls/hr Q24H IV 07/18/19 14:15 08/17/19 14:14 Ondansetron HCl (Zofran) 4 mg Q6H PRN IVP Nausea & Vomiting 07/18/19 14:15 08/17/19 14:14 Pantoprazole (Protonix) 40 mg DAILY IVP 07/19/19 09:00 08/18/19 08:59 07/19/19 08:26 Polyethylene Glycol (Miralax) 17 gm DAILYPRN PRN ORAL Constipation 07/18/19 14:15 08/17/19 14:14 Quetiapine Fumarate (SEROqueL) 25 mg Q8H PRN ORAL agitation 07/18/19 14:15 08/17/19 14:14 Vancomycin HCl (Vanco rx to dose) 1 ea DAILY PRN MISC Per rx protocol 07/18/19 14:30 08/17/19 14:29 Assessment/Plan Assessment/Plan: Abx: IV vancomycin 07/18- Ertapenem 07/18- IV Amikacin x1 07/18 Levaquin x1 07/18 Assessment: Severe sepsis Pneumonia Probable UTI -u/a wbc 15-20, nit neg, leuk +3; ucx p -CXR: Perihilar and basilar infiltrates. Findings suspicious for pneumonia. -influenza sc neg -Bcx p, sp cx p Hypothermia Leukocytosis, SP Acute respiratory failure, on NRB mask Lactic acidosis, improving RAMAN, improving Dm2 HTN non verbal hypothyroidism CVA hx of UTI anemia dementia [facility] resident Plan: -Continue empiric IV Vancomycin #2 and switch Ertapenem #2 to Meropenem pending cultures -f/u cx -Monitor CBC/CMP, temperatures -ICU care -aspiration precautions Thank you for this consultation. Will continue to follow along with you. Discussed with Danielle Castro M.D. Jul 19, 2019 11:38
--- NOTE | 2019-07-19 12:52 | NUR ---
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 98.2 HR 86 RR 28 B/P 107/49 NRM 15L WBC 15.9 BANDS 25 K 5.7 BUN 48 CR 2.6 AST 60 LACTID ACID 6.40 PH 7.31 PCO2 37.1 PO2 146.0 HCO3 18.4 O2 SAT 98.5 UA+ PROTEIN,KETONES,BLOOD,LEUKOCYTE ESTERASE,RBC,WBC CXR=Perihilar and basilar infiltrates. Findings suspicious for pneumonia. IS: IV BOLUS NS X 1 LITER VANCO IV LEVAQUIN IV SOLU MEDROL IV ADMITTED TO ICU@ 1455 ICU STATUS DCP PENDING HOSPITAL STAY
[2019-07-19] MEDS: Meropenem 1 GM in NS 55 ML IVPB SCH (13:00)
--- NOTE | 2019-07-19 13:19 | Diagnostic Imaging Report ---
Indication: Dyspnea Technique: One view of the chest Comparison: 07/18/2019 Reference also made to abdominal radiograph 07/18/2019 Findings: Improved and now satisfactory position of nasogastric tube as compared to the prior abdominal radiograph. There is increasing parenchymal consolidation, pleural fluid, and volume loss at the right lung base. There is also increasing atelectasis and possibly consolidation in the left infrahilar region. Calcifications are again demonstrated at the right lung base. The heart size is normal. Impression: Over one day, marked worsening of pleural and parenchymal disease at the right lung base. There is also increasing parenchymal consolidation and atelectasis in the left infrahilar region.
--- NOTE | 2019-07-19 13:48 | NUR ---
PLANT ASSOCIATE NOTE Pt was admitted to ICU on 07/18/2019. Pt is awake, making minimal and illogical verbalization. Thus, SW was unable to communicate w/ pt meaningfully. PEDRITO reviewed the chart. PT resides at [address] [address] Emergency contact listed as Yolyshanti Vazquez ([facility] [phone]. There is no AD/POLST in the chart. PEDRITO left a vm to Yoly Vazquez to return call. PEDRITO will continue to F/U. Signed: 07/19/19 at 1352 by GIGI MAJOR <Co-Signature Required>
--- NOTE | 2019-07-19 14:00 | NUR ---
NURSE NOTES: RT at bedside, suctioned patient orally and nasally with large amount of thick, brown sputum. Patient tolerated well. On Venturi Mask, saturating 100%. No distress noted. Repositioned. No s/s pain/discomfort. Will continue to monitor.
--- NOTE | 2019-07-19 14:06 | NUR ---
MATERIALS HANDLING EQUIPMENT OPERATOR NOTE PEDRITO received a call from pt's niece Yoly Vazquez [phone]. Per Yoly, pt does not have any family members except two nieces including her. The other niece is not involved in pt's care. Yoly is the primary decision maker for pt. PEDRITO informed there is no AD/POLST in the chart. PEDRITO encouraged Yoly to discuss POLST w/ . Meanwhile, Yoly expressed pt wanting to have full code. SW to F/U as needed. Signed: 07/19/19 at 1409 by GIGI MAJOR <Co-Signature Required>
--- NOTE | 2019-07-19 14:22 | NUR ---
NURSE NOTES: Sputum sample collected by RT, taken down to lab.
--- NOTE | 2019-07-19 15:21 | NUR ---
NURSE NOTES: Dr Fletcher at bedside.
--- NOTE | 2019-07-19 15:29 | Cardiology Progress Note ---
Assessment/Plan Assessment/Plan [id number] Objective Last 24 Hour Vital Signs Date Time Temp Pulse Resp B/P (MAP) Pulse Ox O2 Delivery O2 Flow Rate FiO2 07/19/19 15:00 70 29 131/49 (76) 100 07/19/19 14:15 114/46 07/19/19 14:00 73 32 114/46 (68) 100 07/19/19 13:00 81 39 121/56 (77) 100 07/19/19 12:00 98.6 83 33 132/55 (80) 100 07/19/19 12:00 Venturi Mask 14.0 07/19/19 12:00 14.0 07/19/19 12:00 78 07/19/19 11:00 76 29 119/47 (71) 100 07/19/19 10:00 84 37 117/51 (73) 100 07/19/19 10:00 84 37 100 07/19/19 09:00 84 30 118/50 (72) 100 07/19/19 08:02 86 07/19/19 08:00 15.0 07/19/19 08:00 98.9 84 30 118/50 (72) 100 07/19/19 08:00 Non-Rebreather 15.0 07/19/19 07:46 100 Non-Rebreather 100 07/19/19 07:00 84 35 132/59 (83) 100 07/19/19 06:00 97.6 84 30 118/50 (72) 100 07/19/19 05:00 86 31 106/37 (60) 100 07/19/19 04:00 Non-Rebreather 15.0 07/19/19 04:00 92 19 120/49 (72) 100 07/19/19 04:00 89 07/19/19 04:00 15.0 07/19/19 03:00 98.8 86 26 112/45 (67) 100 07/19/19 02:00 91 30 114/45 (68) 100 07/19/19 01:00 89 22 116/49 (71) 100 07/19/19 00:00 Non-Rebreather 15.0 07/19/19 00:00 98.7 89 19 111/52 (71) 100 07/19/19 00:00 86 07/18/19 23:00 97.6 81 24 124/59 (80) 100 07/18/19 22:00 76 32 101/48 (65) 99 07/18/19 21:00 83 22 127/56 (79) 97 07/18/19 21:00 94.4 75 24 122/98 (106) 100 07/18/19 20:00 74 07/18/19 20:00 15.0 07/18/19 20:00 Non-Rebreather 15.0 07/18/19 20:00 72 23 91/49 (63) 100 07/18/19 19:00 74 28 93/53 (66) 100 07/18/19 18:00 93.6 75 25 122/40 (67) 100 07/18/19 17:00 72 24 127/42 (70) 100 07/18/19 16:08 71 07/18/19 16:00 71 24 91/46 (61) 100 07/18/19 16:00 15.0 07/18/19 15:59 Non-Rebreather 15.0 07/18/19 15:32 72 Intake and Output 07/18/19 07/19/19 19:00 07:00 Intake Total 1462 ml 1086.6667 ml Output Total 915 ml Balance 1462 ml 171.6667 ml Intake Oral 0 ml IV Total 1462 ml 1086.6667 ml Output Urine Total 915 ml # Voids 9 Laboratory Tests Test 07/18/19 19:48 07/18/19 23:59 07/19/19 06:00 07/19/19 08:30 Lactic Acid Level 6.10 mmol/L (0.4-2.0) H 3.60 mmol/L (0.4-2.0) H 2.30 mmol/L (0.66-2.22) H White Blood Count 8.0 K/UL (4.8-10.8) Red Blood Count 3.26 M/UL (4.70-6.10) L Hemoglobin 8.3 G/DL (14.2-18.0) L Hematocrit 25.8 % (42.0-52.0) L Mean Corpuscular Volume 79 FL (80-99) L Mean Corpuscular Hemoglobin 25.4 PG (27.0-31.0) L Mean Corpuscular Hemoglobin Concent 32.0 G/DL (32.0-36.0) Red Cell Distribution Width 15.9 % (11.6-14.8) H Platelet Count 235 K/UL (150-450) Mean Platelet Volume 6.5 FL (6.5-10.1) Neutrophils (%) (Auto) % (45.0-75.0) Lymphocytes (%) (Auto) % (20.0-45.0) Monocytes (%) (Auto) % (1.0-10.0) Eosinophils (%) (Auto) % (0.0-3.0) Basophils (%) (Auto) % (0.0-2.0) Differential Total Cells Counted 100 Neutrophils % (Manual) 91 % (45-75) H Lymphocytes % (Manual) 6 % (20-45) L Monocytes % (Manual) 2 % (1-10) Eosinophils % (Manual) 1 % (0-3) Basophils % (Manual) 0 % (0-2) Band Neutrophils 0 % (0-8) Platelet Estimate Adequate Platelet Morphology Normal Hypochromasia 2+ Anisocytosis 1+ Microcytosis 1+ Sodium Level 150 MMOL/L (136-145) H 149 MMOL/L (136-145) H Potassium Level 5.3 MMOL/L (3.5-5.1) H 4.9 MMOL/L (3.5-5.1) Chloride Level 119 MMOL/L (98-107) H 116 MMOL/L (98-107) H Carbon Dioxide Level 23 MMOL/L (21-32) 21 MMOL/L (21-32) Anion Gap 9 mmol/L (5-15) 12 mmol/L (5-15) Blood Urea Nitrogen 41 mg/dL (7-18) H 41 mg/dL (7-18) H Creatinine 1.8 MG/DL (0.55-1.30) H 1.8 MG/DL (0.55-1.30) H Estimat Glomerular Filtration Rate mL/min (>60) mL/min (>60) Glucose Level 41 MG/DL (74-106) L 61 MG/DL (74-106) L Uric Acid 6.0 MG/DL (2.6-7.2) Calcium Level 9.0 MG/DL (8.5-10.1) 8.8 MG/DL (8.5-10.1) Total Bilirubin 0.3 MG/DL (0.2-1.0) 0.3 MG/DL (0.2-1.0) Direct Bilirubin < 0.1 MG/DL (0.0-0.3) Aspartate Amino Transf (AST/SGOT) 35 U/L (15-37) 39 U/L (15-37) H Alanine Aminotransferase (ALT/SGPT) 34 U/L (12-78) 38 U/L (12-78) Alkaline Phosphatase 96 U/L (46-116) 99 U/L (46-116) Total Creatine Kinase 85 U/L (26-308) Total Protein 6.9 G/DL (6.4-8.2) 7.1 G/DL (6.4-8.2) Albumin 2.1 G/DL (3.4-5.0) L 2.1 G/DL (3.4-5.0) L Globulin 4.8 g/dL 5.0 g/dL Albumin/Globulin Ratio 0.4 (1.0-2.7) L 0.4 (1.0-2.7) L Random Amikacin Level Pending Random Vancomycin Level 6.7 ug/mL Test 07/19/19 10:24 07/19/19 10:45 07/19/19 12:20 Arterial Blood pH 7.401 (7.350-7.450) Arterial Blood Partial Pressure CO2 30.5 mmHg (35.0-45.0) L Arterial Blood Partial Pressure O2 68.2 mmHg (75.0-100.0) L Arterial Blood HCO3 18.5 mmol/L (22.0-26.0) L Arterial Blood Oxygen Saturation 93.5 % (95-100) L Arterial Blood Base Excess -5.5 (-2-2) L Watson Test Positive Urine Color Pale yellow Urine Appearance Clear Urine pH 6 (4.5-8.0) Urine Specific [place] 1.010 (1.005-1.035) Urine Protein 2+ (NEGATIVE) H Urine Glucose (UA) Negative (NEGATIVE) Urine Ketones Negative (NEGATIVE) Urine Blood 4+ (NEGATIVE) H Urine Nitrite Negative (NEGATIVE) Urine Bilirubin Negative (NEGATIVE) Urine Urobilinogen Normal MG/DL (0.0-1.0) Urine Leukocyte Esterase 3+ (NEGATIVE) H Urine RBC 5-10 /HPF (0 - 0) H Urine WBC 30-40 /HPF (0 - 0) H Urine Squamous Epithelial Cells Occasional /LPF Urine Amorphous Sediment Few /LPF (NONE) H Urine Bacteria Few /HPF (NONE) Urine Eosinophils None seen (NONE SEEN) Urine Random Sodium 92 mmol/L (20-110) Urine Potassium Timed 70 mmol/L (12-62) H Lactic Acid Level 1.70 mmol/L (0.4-2.0) Microbiology Date/Time Source Procedure Growth Status 07/18/19 12:19 Nasal Nares - Final Complete 07/18/19 12:19 Nasal Nares - Final Complete 07/18/19 14:40 Urine,Clean Catch Urine Culture - Preliminary Resulted 07/18/19 14:14 Rectum Received Juarez Fletcher MD Jul 19, 2019 15:29
--- NOTE | 2019-07-19 16:00 | NUR ---
NURSE NOTES: Complete bed bath, oral care, pericare provided; suctioned patient orally. Tolerated well. OGT in place, patient remains NPO as ordered. No s/s of pain/discomfort at this time. Will continue to monitor.
[2019-07-19] MEDS ORDERED: NS 275ml ONE (16:12)
[2019-07-19] MEDS ORDERED: Tubing IV Secondary IV ONE (16:12)
--- NOTE | 2019-07-19 16:45 | NUR ---
NURSE NOTES: Dr Fletcher notified and made aware of patient's episodes of a-fib; no orders received at this time. Charge nurse notified and made aware. Will continue to monitor.
--- NOTE | 2019-07-19 16:55 | Consultation ---
Consult Note Consult Note asked by Dr Hayes to laura for renal failure seen in ICU Non historian Patient is an 84-year-old male past medical history of encephalopathy, muscle weakness, diabetes, hypertension, hypothyroidism, CVA, UTI, anemia, dementia who was sent here from his extended care facility for third mental status. Patient was brought in by EMS. Patient is non-verbal at this time and therefore history is limited. Allergies: PENICILLINS (Verified Allergy, Unknown, 10/27/18) tolretas cephalosporins Hx Cardiac Problems: Yes Hx Hypertension: Yes Hx Diabetes: Yes Hx Neurological Problems: Yes Hx Cerebrovascular Accident: Yes examined data reviewed Assessment/Plan 84 y/o M with hx of Dm2, HTN, non verbal, hypothyroidism, CVA, UTI, anemia, dementia, retirement resident presented to ED on 07/18 with altered mental status Alexi Cr lowering 2.6 to 1.8 Sepsis / Pneumonia / UTI / Hypothermia Respiratory failure HypoThyroidism h/o CVA Anemia Dementia Hydrate antibiotics avoid nephrotoxics monitor renal parameters check TFTs Urine eos per orders Clovis Benites MD Jul 19, 2019 16:55
--- NOTE | 2019-07-19 17:30 | NUR ---
NURSE NOTES: Complete bed bath, linen change, markos care, oral care provided. Wound dressings replaced. Repositioned patient. Tolerated well. No s/s of pain/discomfort at this time. Will continue to monitor. Addendum: 07/19/19 at 1825 by Honey Navarro RN Please disregard documentation above; wrong patient entry.
--- NOTE | 2019-07-19 17:57 | Internal Med Progress Note ---
Subjective Date of Service: Jul 19, 2019 Physician Name Xander Bah Attending Physician Lamont Hayes MD Current Medications Medications (Trade) Dose Ordered Sig/Kike Route PRN Reason Start Time Stop Time Status Last Admin Dose Admin Acetaminophen (Tylenol) 650 mg Q4H PRN ORAL fever 07/18/19 14:15 08/17/19 14:14 Albuterol/ Ipratropium (Albuterol/ Ipratropium) 3 ml Q4H PRN HHN Shortness of Breath 07/18/19 14:15 07/23/19 14:14 Dextrose 1,000 ml @ 75 mls/hr [id number] IV 07/19/19 17:04 08/18/19 17:03 07/19/19 17:30 Heparin Sodium (Porcine) (Heparin 5000 units/ml) 5,000 units EVERY 12 HOURS SUBQ 07/18/19 21:00 08/17/19 20:59 07/19/19 08:27 Levothyroxine Sodium (Synthroid) 25 mcg DAILY@0630 ORAL 07/19/19 06:30 08/18/19 06:29 07/19/19 06:57 Meropenem 1 gm/ Sodium Chloride 55 ml @ 110 mls/hr Q12HR@0100,1300 IVPB 07/19/19 13:00 07/24/19 12:59 07/19/19 13:00 Norepinephrine Bitartrate 4 mg/ Dextrose 254 ml @ 0 mls/hr Q24H IV 07/18/19 14:15 08/17/19 14:14 Ondansetron HCl (Zofran) 4 mg Q6H PRN IVP Nausea & Vomiting 07/18/19 14:15 08/17/19 14:14 Pantoprazole (Protonix) 40 mg DAILY IVP 07/19/19 09:00 08/18/19 08:59 07/19/19 08:26 Polyethylene Glycol (Miralax) 17 gm DAILYPRN PRN ORAL Constipation 07/18/19 14:15 08/17/19 14:14 Quetiapine Fumarate (SEROqueL) 25 mg Q8H PRN ORAL agitation 07/18/19 14:15 08/17/19 14:14 Vancomycin HCl (Vanco rx to dose) 1 ea DAILY PRN MISC Per rx protocol 07/18/19 14:30 08/17/19 14:29 Allergies: Coded Allergies: PENICILLINS (Verified Allergy, Unknown, 10/27/18) tolretas cephalosporins ROS Limited/Unobtainable: Yes Subjective 84 YO M admitted with altered mental status. Now pneumonia and severe sepsis. Cover for Joseph Rodrigues-Dr Hayes. ICU Objective Last Vital Signs Date Time Temp Pulse Resp B/P (MAP) Pulse Ox O2 Delivery O2 Flow Rate FiO2 07/19/19 17:00 70 30 109/64 (79) 100 07/19/19 16:00 97.8 07/19/19 16:00 14.0 07/19/19 16:00 Venturi Mask 07/19/19 07:46 100 Laboratory Tests Test 07/18/19 19:48 07/18/19 23:59 07/19/19 06:00 07/19/19 08:30 Lactic Acid Level 6.10 mmol/L (0.4-2.0) H 3.60 mmol/L (0.4-2.0) H 2.30 mmol/L (0.66-2.22) H White Blood Count 8.0 K/UL (4.8-10.8) Red Blood Count 3.26 M/UL (4.70-6.10) L Hemoglobin 8.3 G/DL (14.2-18.0) L Hematocrit 25.8 % (42.0-52.0) L Mean Corpuscular Volume 79 FL (80-99) L Mean Corpuscular Hemoglobin 25.4 PG (27.0-31.0) L Mean Corpuscular Hemoglobin Concent 32.0 G/DL (32.0-36.0) Red Cell Distribution Width 15.9 % (11.6-14.8) H Platelet Count 235 K/UL (150-450) Mean Platelet Volume 6.5 FL (6.5-10.1) Neutrophils (%) (Auto) % (45.0-75.0) Lymphocytes (%) (Auto) % (20.0-45.0) Monocytes (%) (Auto) % (1.0-10.0) Eosinophils (%) (Auto) % (0.0-3.0) Basophils (%) (Auto) % (0.0-2.0) Differential Total Cells Counted 100 Neutrophils % (Manual) 91 % (45-75) H Lymphocytes % (Manual) 6 % (20-45) L Monocytes % (Manual) 2 % (1-10) Eosinophils % (Manual) 1 % (0-3) Basophils % (Manual) 0 % (0-2) Band Neutrophils 0 % (0-8) Platelet Estimate Adequate Platelet Morphology Normal Hypochromasia 2+ Anisocytosis 1+ Microcytosis 1+ Sodium Level 150 MMOL/L (136-145) H 149 MMOL/L (136-145) H Potassium Level 5.3 MMOL/L (3.5-5.1) H 4.9 MMOL/L (3.5-5.1) Chloride Level 119 MMOL/L (98-107) H 116 MMOL/L (98-107) H Carbon Dioxide Level 23 MMOL/L (21-32) 21 MMOL/L (21-32) Anion Gap 9 mmol/L (5-15) 12 mmol/L (5-15) Blood Urea Nitrogen 41 mg/dL (7-18) H 41 mg/dL (7-18) H Creatinine 1.8 MG/DL (0.55-1.30) H 1.8 MG/DL (0.55-1.30) H Estimat Glomerular Filtration Rate mL/min (>60) mL/min (>60) Glucose Level 41 MG/DL (74-106) L 61 MG/DL (74-106) L Uric Acid 6.0 MG/DL (2.6-7.2) Calcium Level 9.0 MG/DL (8.5-10.1) 8.8 MG/DL (8.5-10.1) Total Bilirubin 0.3 MG/DL (0.2-1.0) 0.3 MG/DL (0.2-1.0) Direct Bilirubin < 0.1 MG/DL (0.0-0.3) Aspartate Amino Transf (AST/SGOT) 35 U/L (15-37) 39 U/L (15-37) H Alanine Aminotransferase (ALT/SGPT) 34 U/L (12-78) 38 U/L (12-78) Alkaline Phosphatase 96 U/L (46-116) 99 U/L (46-116) Total Creatine Kinase 85 U/L (26-308) Total Protein 6.9 G/DL (6.4-8.2) 7.1 G/DL (6.4-8.2) Albumin 2.1 G/DL (3.4-5.0) L 2.1 G/DL (3.4-5.0) L Globulin 4.8 g/dL 5.0 g/dL Albumin/Globulin Ratio 0.4 (1.0-2.7) L 0.4 (1.0-2.7) L Random Amikacin Level Pending Random Vancomycin Level 6.7 ug/mL Test 07/19/19 10:24 07/19/19 10:45 07/19/19 12:20 Arterial Blood pH 7.401 (7.350-7.450) Arterial Blood Partial Pressure CO2 30.5 mmHg (35.0-45.0) L Arterial Blood Partial Pressure O2 68.2 mmHg (75.0-100.0) L Arterial Blood HCO3 18.5 mmol/L (22.0-26.0) L Arterial Blood Oxygen Saturation 93.5 % (95-100) L Arterial Blood Base Excess -5.5 (-2-2) L Watson Test Positive Urine Color Pale yellow Urine Appearance Clear Urine pH 6 (4.5-8.0) Urine Specific [place] 1.010 (1.005-1.035) Urine Protein 2+ (NEGATIVE) H Urine Glucose (UA) Negative (NEGATIVE) Urine Ketones Negative (NEGATIVE) Urine Blood 4+ (NEGATIVE) H Urine Nitrite Negative (NEGATIVE) Urine Bilirubin Negative (NEGATIVE) Urine Urobilinogen Normal MG/DL (0.0-1.0) Urine Leukocyte Esterase 3+ (NEGATIVE) H Urine RBC 5-10 /HPF (0 - 0) H Urine WBC 30-40 /HPF (0 - 0) H Urine Squamous Epithelial Cells Occasional /LPF Urine Amorphous Sediment Few /LPF (NONE) H Urine Bacteria Few /HPF (NONE) Urine Eosinophils None seen (NONE SEEN) Urine Random Sodium 92 mmol/L (20-110) Urine Potassium Timed 70 mmol/L (12-62) H Lactic Acid Level 1.70 mmol/L (0.4-2.0) Microbiology Date/Time Source Procedure Growth Status 07/18/19 12:19 Nasal Nares - Final Complete 07/18/19 12:19 Nasal Nares - Final Complete 07/18/19 14:40 Urine,Clean Catch Urine Culture - Preliminary Resulted 07/18/19 14:14 Rectum Received Intake and Output 07/18/19 07/19/19 19:00 07:00 Intake Total 1462 ml 1086.6667 ml Output Total 915 ml Balance 1462 ml 171.6667 ml Intake Oral 0 ml IV Total 1462 ml 1086.6667 ml Output Urine Total 915 ml # Voids 9 Objective PHYSICAL EXAMINATION: GENERAL: The patient is a well-developed, well-nourished, thin-appearing male, who is in moderate respiratory distress. HEENT: Eyes, pupils are equal and responsive to light and accommodation. Extraocular movements are intact. NECK: Supple without lymphadenopathy. CHEST: Lungs are clear to auscultation bilaterally without wheezes or rales. CARDIOVASCULAR: Regular rhythm and rate. S1 and S2 are normal without murmurs, rubs, or gallops. ABDOMEN: Soft, nontender, and nondistended. Positive bowel sounds. No evidence of hepatosplenomegaly. Currently, no rebound or guarding noted. EXTREMITIES: Negative for clubbing, cyanosis, or edema. RECTAL/GENITAL: Not performed. NEUROLOGIC: Cranial nerves II through XII are grossly intact without focal deficits. Motor strength is 5/5 bilaterally. Deep tendon reflexes are 2+ plantar. Assessment/Plan Assessment/Plan ASSESSMENT: This is an 84-year-old male. 1. Bilateral pneumonia. 2. Respiratory failure. 3. Probable sepsis. 4. Altered mental status. 5. Diabetes type 2. 6. Hypothyroidism. 7. Cerebrovascular disease. 8. Acute renal failure. 9. Leukocytosis 10. Hypernatremia TREATMENT: 1. Respiratory failure/bilateral pneumonia. A Pulmonary consultation has been obtained with Dr. Vania Hui. The patient is currently admitted to the intensive care unit. The patient is currently on a venturi mask. The patient has been started empirically on vancomycin and ertapenem. A sputum culture is pending. Await sputum culture results. 2. Altered mental status. This is probably secondary to hypoxia secondary to pneumonia as above. 3. Diabetes type 2. The patient was admitted without antihyperglycemic medication. 4. Hypothyroidism. Continue Levoxyl as above. 5. Cerebrovascular disease. The patient is status post cerebrovascular accident. 6. Acute renal failure. This may be secondary to acute dehydration. The patient is currently receiving intravenous fluids. 7. Severe Sepsis. ABX=vanco and meropenem. ID=Xander Gill MD Jul 19, 2019 17:57
--- NOTE | 2019-07-19 18:00 | NUR ---
NURSE NOTES: Fed patient orally, ate 25% of dinner, tolerated well. Patient remains on 3L oxygen via NC, saturating 98% at this time. TF ongoing, HOB elevated. No s/s of pain/discomfort. Bed locked, alarmed, and in lowest position, side rails up x2; will continue to monitor patient. Addendum: 07/19/19 at 1825 by Honey Navarro RN Please disregard documentation above; wrong patient entry.
--- NOTE | 2019-07-19 18:05 | NUR ---
NURSE NOTES: Repositioned patient; provided oral care and suctioned orally. Tolerating Venturi mask 14L, FiO2 55%, no distress noted. No s/s of pain at this time. Bed locked, alarmed, and in lowest position, side rails up x2; will continue to monitor.
--- NOTE | 2019-07-19 19:05 | NUR ---
HAND-OFF: Report given to Lissy Sanchez RN. Endorsed plan of care. Patient in stable condition.
--- NOTE | 2019-07-19 19:06 | NUR ---
NURSE NOTES: Received patient from Honey QUINN. Patient is awake with flat affect. Sinus Rhythm on the heart monitor. HR 65. Receiving oxygen via venturi mask at 14L/min, FiO2 at 55%. OGT is intact. IV site is Right Forearm 20g, receiving D5W at 75cc/hr, Left AC 20g patent and asymptomatic. Condom catheter is intact and draining. Bed is locked, placed in lowest position, side rails up x3, bed alarm on, head of bed elevated. Will continue to monitor.
--- NOTE | 2019-07-19 20:45 | Consultation ---
DATE OF CONSULTATION: 07/19/2019 CARDIOLOGY CONSULTATION CONSULTING PHYSICIAN: Juarez Fletcher M.D. REFERRING PHYSICIAN: Lamont Hayes M.D. REASON FOR REFERRAL: Respiratory failure. HISTORY OF PRESENT ILLNESS: This is an elderly gentleman, who resides in a convalescent facility, who is unable to provide any meaningful history whatsoever. The patient is [facility] because of altered mentation on top of his chronic dementia and concern about possibility of a CVA was raised. The patient is really not able to provide any meaningful history whatsoever. He has been admitted to the hospital. Initially, he was hypotensive. Fluids were administered in the emergency room and the patient's blood pressure did improve, however, he has had progressive bilateral pulmonary infiltrates worse on the right side than on the left and because he is unable to provide any meaningful history, a concern about cardiac issue was raised as a concomitant problem and this consultation was requested. The patient is not able to provide history. PAST MEDICAL HISTORY: Positive for history of prior hospitalization here back in 2019. At that time, history includes hypertension, diabetes mellitus, CVA, COPD, hypothyroidism, and he was diagnosed with urinary tract infection secondary to Proteus and strep group B UTI, acute metabolic encephalopathy, CVA, severe anemia, dysphagia, hypertension, hypothyroidism, and no other medical problems has been identified on review of the patient's prior chart. ALLERGIES: The patient is allergic to penicillin. SOCIAL HISTORY: Very limited. Only available for the patient being [facility]. Smoking and alcohol intake previously is unknown. REVIEW OF SYSTEMS: Unable to obtain. PHYSICAL EXAMINATION: GENERAL: Shows to be an elderly gentleman, in no respiratory distress. He has orogastric tube in place. He is not communicating and not responsive to my verbal stimuli. LUNGS: Decreased breath sounds on the right side. CARDIAC: Regular rhythm. No heaves or thrills noted. ABDOMEN: Soft and nontender. Positive bowel sounds. EXTREMITIES: There is no edema. LABORATORY AND DIAGNOSTIC DATA: Sodium 150, potassium 5.3, chloride 119, bicarb of 23, BUN 41, creatinine 1.8, and glucose between 41 and 61. Lactic acid of 2.3. The troponin first set was negative yesterday at 11:55. No other sets have been performed. Albumin of 3.1. INR 1. PTT of 26. Urinalysis shows 30 to 40 wbc's and 5 to 10 rbc's and 3+ leukocyte esterase. A chest x-ray was performed from today that shows over one day marked portion of pleural and parenchymal disease on the right base being identified. The patient's electrocardiogram shows what appears to be likely to be sinus although difficult to see atrial activity and the telemetry strips do appear to be more consistent with sinus rhythm with atrial activity being present on those strips. The EKG has a lot of tremor artifact affecting interpretation. ASSESSMENT AND PLAN: 1. Toxic metabolic encephalopathy. 2. Pneumonia. 3. Respiratory insufficiency. 4. Dementia. 5. Hypernatremia. 6. History of CVA. 7. History of hypertension. 8. History of diabetes mellitus. 9. History of hypothyroidism. PLAN: This patient was seen in cardiac consultation. Cardiovascularly, he appears to be relatively stable. The patient's blood pressure has improved. Repeat cardiac enzymes will be checked. The EKG will be checked. An echocardiogram has been ordered. We will await review. No specific cardiac treatment at this time. Watch for development of sepsis in light of the patient's pronounced pulmonary infection and further recommendations depending on the results of the above. Juarez Fletcher M.D. DR: SOL JOB#: [id number] CC:
--- NOTE | 2019-07-19 21:35 | NUR ---
NURSE NOTES: Patient is resting in bed comfortably, was able to answer yes or no questions, alert and oriented x1, verbalization is soft and quiet. No signs of acute distress at the moment. Will continue to monitor.
--- NOTE | 2019-07-19 23:06 | NUR ---
NURSE NOTES: Upon entering patient room, patient was seen removing venturi mask and OGT. OGT was displaced and removed by patient. Will continue to monitor.
[2019-07-20] VITALS (24 sets, daily range): BP systolic 100–159; BP diastolic 43–105
[2019-07-20] MEDS: Meropenem 1 GM in NS 55 ML IVPB SCH ×2 (00:55→14:00)
--- NOTE | 2019-07-20 04:11 | NUR ---
NURSE NOTES: EKG done on patient as ordered. Atrial Fibrillation with premature ventricular or aberrantly conducted complexes Nonspecific ST and T wave abnormality, HR 72. Findings placed in patient's physical chart.
--- NOTE | 2019-07-20 05:44 | NUR ---
NURSE NOTES: Gave bed bath to patient, patient tolerated well, no signs of acute distress. OB stool sample collected and will be sent to lab. Will continue to monitor.
[2019-07-20] MEDS: Levothyroxine 25mcg tab ORAL SCH (06:06)
--- NOTE | 2019-07-20 06:44 | NUR ---
NURSE NOTES: Left message to Dr. Fletcher's office regarding EKG results.
--- NOTE | 2019-07-20 06:52 | NUR ---
NURSE NOTES: At 0650 patient HR 57, patient remains in A. Fib. Patient is asymptomatic. Will continue to monitor.
[2019-07-20 06:56] LABS: INR 1.1 (0.9-1.1)
--- NOTE | 2019-07-20 07:02 | NUR ---
HAND-OFF: Report given to France Palma RN.
--- NOTE | 2019-07-20 07:03 | NUR ---
NURSE NOTES: Report received from KAI De Los Santos. Pt opens eyes spontaneously and able to answer for simple questions. On ventri mask 14L, 55%. O2 sat 100%. A-fib on phototypesetting equipment monitor with HR 70's. Kept NPO as ordered. IV to right FA G20 patent and asymptomatic. D5W is running at75cc/hr. Bed in lowest position. Side rails up x3. Will resume plan of care.
[2019-07-20 07:06] LABS: ALANINE AMINOTRANSFERASE 48 U/L (12-78); ALBUMIN/GLOBULIN RATIO 0.4 (1.0-2.7); ALKALINE PHOSPHATASE 111 U/L (46-116); ANION GAP 10 mmol/L (5-15); ASPARTATE AMINO TRANSFERASE 71 U/L (15-37); BILIRUBIN,TOTAL 0.4 MG/DL (0.2-1.0); BLOOD UREA NITROGEN 34 mg/dL (7-18); CALCIUM 9.1 MG/DL (8.5-10.1); CARBON DIOXIDE 22 MMOL/L (21-32); CHLORIDE 114 MMOL/L (98-107); CREATININE 1.6 MG/DL (0.55-1.30); POTASSIUM 3.9 MMOL/L (3.5-5.1); SODIUM 146 MMOL/L (136-145)
[2019-07-20 07:44] LABS: HEMATOCRIT 25.6 % (42.0-52.0); HEMOGLOBIN 8.3 G/DL (14.2-18.0); MEAN CORPUSCULAR VOLUME 78 FL (80-99); PLATELET COUNT 258 K/UL (150-450); RED BLOOD COUNT 3.27 M/UL (4.70-6.10); RED CELL DISTRIBUTION WIDTH 16.1 % (11.6-14.8); WHITE BLOOD COUNT 10.2 K/UL (4.8-10.8)
[2019-07-20 07:57] LABS: CHOLESTEROL 78 MG/DL (< 200); FERRITIN 129 NG/ML (8-388); HDL CHOLESTEROL 36 MG/DL (40-60); LACTATE DEHYDROGENASE 254 U/L (81-234); TRIGLYCERIDES 65 MG/DL (30-150)
[2019-07-20 08:02] LABS: IRON 9 ug/dL (50-175); TOTAL IRON BINDING CAPACITY 165 ug/dL (250-450)
[2019-07-20 08:09] LABS: % IRON SATURATION 5 % (15-50)
[2019-07-20 08:15] LABS: PHOSPHORUS 2.3 MG/DL (2.5-4.9)
--- NOTE | 2019-07-20 08:58 | NUR ---
RADIOLOGY DEPT., CHEST X-RAY DONE.-P.DYE
[2019-07-20] MEDS: Pantoprazole Inj IVP SCH (09:14)
[2019-07-20] MEDS: Heparin 5000 units/ml inj SUBQ SCH ×2 (09:16→21:02)
--- NOTE | 2019-07-20 09:49 | NUR ---
NURSE NOTES: Good oral care done. RT did nasal suctioning at bedside. Moderate amount of yellow thick secretion noted.
--- NOTE | 2019-07-20 10:00 | Diagnostic Imaging Report ---
Indication: Shortness of breath Technique: One view of the chest Comparison: 04/27/2020 Findings: Nasogastric tube has been removed. There is persistent consolidation in the right mid and lower lung and left perihilar and retrocardiac regions. The heart is borderline enlarged. Impression: Interim nasogastric tube removal. Otherwise essentially unchanged over one day
--- NOTE | 2019-07-20 10:32 | Pulmonolgy Critical Care Note ---
Critical Care - Asmt/Plan Problems: (1) Nosocomial pneumonia (2) Sepsis (3) Acute renal failure (4) Acute metabolic encephalopathy (5) Severe anemia (6) Alzheimer's dementia (7) Hypothyroidism (8) Diabetes mellitus (9) History of CVA (cerebrovascular accident) Respiratory: monitor respiratory rate, adjust FIO2, CXR Cardiac: continue to monitor HR/BP Renal: F/U I&O, keep IV fluid, check electrolytes Infectious Disease: check cultures Gastrointestinal: hold feedings, other - swallow study Endocrine: monitor blood sugar Hematologic: monitor H/H, transfuse if hgb<8.5 Neurologic: PRN Ativan, keep patient comfortable Affect: PRN ativan Time Spent (Minutes): 40 Notes Reviewed: cardio, 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 with: nurses, consultants, lead case managerimaging center manager - Objective Last 24 Hour Vital Signs Date Time Temp Pulse Resp B/P (MAP) Pulse Ox O2 Delivery O2 Flow Rate FiO2 07/20/19 07:00 79 26 141/67 (91) 100 07/20/19 06:00 76 24 122/56 (78) 100 07/20/19 05:00 74 27 142/79 (100) 100 07/20/19 04:00 Venturi Mask 14.0 07/20/19 04:00 98.6 76 26 142/67 (92) 100 07/20/19 04:00 14.0 07/20/19 03:06 84 07/20/19 03:00 77 29 142/77 (98) 100 07/20/19 02:00 73 23 149/53 (85) 100 07/20/19 01:22 100 Venturi Mask 10.0 45 07/20/19 01:00 76 28 148/67 (94) 100 07/20/19 00:00 Venturi Mask 14.0 07/20/19 00:00 98.8 78 28 104/87 (93) 100 07/19/19 23:03 72 07/19/19 23:00 76 25 124/36 (65) 100 07/19/19 22:00 74 27 130/47 (74) 100 07/19/19 21:00 98.3 67 28 97/55 (69) 100 07/19/19 20:00 74 31 113/51 (71) 100 07/19/19 20:00 14.0 07/19/19 20:00 Venturi Mask 14.0 07/19/19 19:31 75 07/19/19 19:00 70 30 111/43 (65) 100 07/19/19 18:00 68 25 127/43 (71) 100 07/19/19 17:00 70 30 109/64 (79) 100 07/19/19 16:00 69 26 120/42 (68) 100 07/19/19 16:00 97.8 07/19/19 16:00 14.0 07/19/19 16:00 Venturi Mask 14.0 07/19/19 15:48 72 07/19/19 15:00 70 29 131/49 (76) 100 07/19/19 14:15 114/46 07/19/19 14:00 73 32 114/46 (68) 100 07/19/19 13:00 81 39 121/56 (77) 100 07/19/19 12:00 98.6 83 33 132/55 (80) 100 07/19/19 12:00 Venturi Mask 14.0 07/19/19 12:00 14.0 07/19/19 12:00 78 07/19/19 11:00 76 29 119/47 (71) 100 Status: somnolent Condition: critical HEENT: atraumatic Neck: full ROM Lungs: rales, rhonchi Heart: HR/BP stable Abdomen: soft Extremities: edema Micro: Microbiology Date/Time Source Procedure Growth Status 07/18/19 11:55 Blood Blood Culture - Preliminary NO GROWTH AFTER 24 HOURS Resulted 07/18/19 11:40 Blood Blood Culture - Preliminary NO GROWTH AFTER 24 HOURS Resulted 07/18/19 14:14 Nasal Nares MRSA Culture - Final NO METHICILLIN RESISTANT STAPH AUREUS... Complete 07/18/19 12:19 Nasal Nares - Final Complete 07/18/19 12:19 Nasal Nares - Final Complete 07/19/19 10:45 Urine,Clean Catch Urine Culture - Preliminary NO GROWTH Resulted 07/18/19 14:40 Urine,Clean Catch Urine Culture - Preliminary Gram Negative Bacillus 1 Resulted 07/18/19 14:14 Rectum - Final NO CARBAPENEM-RESISTANT ENTEROBACTERI... Complete 07/18/19 14:14 Rectum VRE Culture - Final NO VANCOMYCIN RESISTANT ENTEROCOCCUS ... Complete Critical Care - Subjective ROS Limited/Unobtainable: Yes Interval Events: removed NG tube last night, in Afib now FI02: 45 Sputum Amount: None I&O: Intake and Output 07/19/19 07/20/19 18:59 06:59 Intake Total 1130.000 ml 955 ml Output Total 720 ml 760 ml Balance 410.000 ml 195 ml IV Total 1130.000 ml 955 ml Output Urine Total 720 ml 760 ml CXR: RML infiltrate Labs: Laboratory Tests Test 07/19/19 10:45 07/19/19 12:20 07/20/19 04:40 07/20/19 05:30 Urine Color Pale yellow Urine Appearance Clear Urine pH 6 (4.5-8.0) Urine Specific [place] 1.010 (1.005-1.035) Urine Protein 2+ (NEGATIVE) H Urine Glucose (UA) Negative (NEGATIVE) Urine Ketones Negative (NEGATIVE) Urine Blood 4+ (NEGATIVE) H Urine Nitrite Negative (NEGATIVE) Urine Bilirubin Negative (NEGATIVE) Urine Urobilinogen Normal MG/DL (0.0-1.0) Urine Leukocyte Esterase 3+ (NEGATIVE) H Urine RBC 5-10 /HPF (0 - 0) H Urine WBC 30-40 /HPF (0 - 0) H Urine Squamous Epithelial Cells Occasional /LPF Urine Amorphous Sediment Few /LPF (NONE) H Urine Bacteria Few /HPF (NONE) Urine Eosinophils None seen (NONE SEEN) Urine Random Sodium 92 mmol/L (20-110) Urine Potassium Timed 70 mmol/L (12-62) H Lactic Acid Level 1.70 mmol/L (0.4-2.0) White Blood Count 10.2 K/UL (4.8-10.8) Red Blood Count 3.27 M/UL (4.70-6.10) L Hemoglobin 8.3 G/DL (14.2-18.0) L Hematocrit 25.6 % (42.0-52.0) L Mean Corpuscular Volume 78 FL (80-99) L Mean Corpuscular Hemoglobin 25.4 PG (27.0-31.0) L Mean Corpuscular Hemoglobin Concent 32.5 G/DL (32.0-36.0) Red Cell Distribution Width 16.1 % (11.6-14.8) H Platelet Count 258 K/UL (150-450) Mean Platelet Volume 6.3 FL (6.5-10.1) L Neutrophils (%) (Auto) % (45.0-75.0) Lymphocytes (%) (Auto) % (20.0-45.0) Monocytes (%) (Auto) % (1.0-10.0) Eosinophils (%) (Auto) % (0.0-3.0) Basophils (%) (Auto) % (0.0-2.0) Differential Total Cells Counted 100 Neutrophils % (Manual) 74 % (45-75) Lymphocytes % (Manual) 12 % (20-45) L Monocytes % (Manual) 1 % (1-10) Eosinophils % (Manual) 2 % (0-3) Basophils % (Manual) 0 % (0-2) Band Neutrophils 11 % (0-8) H Platelet Estimate Adequate Platelet Morphology Normal Anisocytosis 1+ Microcytosis 1+ Erythrocyte Sedimentation Rate 126 MM/HR (0-20) H Reticulocyte Count Pending Prothrombin Time 11.8 SEC (9.30-11.50) H Prothromb Time International Ratio 1.1 (0.9-1.1) Activated Partial Thromboplast Time 36 SEC (23-33) H Sodium Level 146 MMOL/L (136-145) H Potassium Level 3.9 MMOL/L (3.5-5.1) Chloride Level 114 MMOL/L (98-107) H Carbon Dioxide Level 22 MMOL/L (21-32) Anion Gap 10 mmol/L (5-15) Blood Urea Nitrogen 34 mg/dL (7-18) H Creatinine 1.6 MG/DL (0.55-1.30) H Estimat Glomerular Filtration Rate 49.9 mL/min (>60) Glucose Level 80 MG/DL (74-106) Hemoglobin A1c 6.5 % (4.3-6.0) H Uric Acid 5.6 MG/DL (2.6-7.2) Calcium Level 9.1 MG/DL (8.5-10.1) Phosphorus Level 2.3 MG/DL (2.5-4.9) L Magnesium Level 2.0 MG/DL (1.8-2.4) Iron Level 9 ug/dL (50-175) L Total Iron Binding Capacity 165 ug/dL (250-450) L Percent Iron Saturation 5 % (15-50) L Unsaturated Iron Binding 156 ug/dL (112-346) Ferritin 129 NG/ML (8-388) Total Bilirubin 0.4 MG/DL (0.2-1.0) Gamma Glutamyl Transpeptidase 37 U/L (5-85) Aspartate Amino Transf (AST/SGOT) 71 U/L (15-37) H Alanine Aminotransferase (ALT/SGPT) 48 U/L (12-78) Alkaline Phosphatase 111 U/L (46-116) Lactate Dehydrogenase 254 U/L (81-234) H Troponin I 0.332 ng/mL (0.000-0.056) C-Reactive Protein, Quantitative 34.9 mg/dL (0.00-0.90) H Pro-B-Type Natriuretic Peptide 2941 pg/mL (0-125) H Total Protein 7.1 G/DL (6.4-8.2) Albumin 2.0 G/DL (3.4-5.0) L Globulin 5.1 g/dL Albumin/Globulin Ratio 0.4 (1.0-2.7) L Triglycerides Level 65 MG/DL (30-150) Cholesterol Level 78 MG/DL (< 200) LDL Cholesterol 16 mg/dL (<100) HDL Cholesterol 36 MG/DL (40-60) L Cholesterol/HDL Ratio 2.2 (3.3-4.4) L Carcinoembryonic Antigen Pending Vitamin B12 Level 1870 PG/ML (193-986) H Folate 4.8 NG/ML (8.6-58.9) L Thyroid Stimulating Hormone (TSH) 9.450 uiU/mL (0.358-3.740) Free Thyroxine 1.03 NG/DL (0.76-1.46) Free Triiodothyronine 1.4 pg/mL (2.3-4.2) L Random Vancomycin Level 12.4 ug/mL Stool Occult Blood Pending Test 07/20/19 08:00 07/20/19 09:03 Urine Eosinophils Pending Arterial Blood pH 7.417 (7.350-7.450) Arterial Blood Partial Pressure CO2 31.7 mmHg (35.0-45.0) L Arterial Blood Partial Pressure O2 71.0 mmHg (75.0-100.0) L Arterial Blood HCO3 20.0 mmol/L (22.0-26.0) L Arterial Blood Oxygen Saturation 93.9 % (95-100) L Arterial Blood Base Excess -3.9 (-2-2) L Watson Test Positive Vania Hui MD Jul 20, 2019 10:32
--- NOTE | 2019-07-20 10:51 | NUR ---
NURSE NOTES: Dr Hui here to see the patient. Updated him with pt's current condition. Will proceed his orders. New IV inserted. Pt tolerated well.
[2019-07-20] MEDS ORDERED: Vancomycin 1.25gm/NS Premix IVPB ONE (11:00)
--- NOTE | 2019-07-20 11:20 | NUR ---
*-* INSURANCE *-* ALL AVAILABLE CLINICALS HAVE BEEN FAXED TO: [employer] NO MARKET SPECIALIST ASSIGNED AT THIS TIME PLEASE FAX THE REVIEW/CLINICAL P- [phone] F- [phone]...REVIEW/CLINICAL
--- NOTE | 2019-07-20 11:20 | Nephrology Progress Note ---
Assessment/Plan Problem List: (1) Acute renal failure (2) Severe anemia (3) Sepsis (4) Diabetes mellitus (5) Hypothyroidism Assessment Alexi Cr lowering 2.6 to 1.8 Sepsis / Pneumonia / UTI / Hypothermia Respiratory failure HypoThyroidism h/o CVA Anemia Dementia Plan Hydrate Phos supplement antibiotics avoid nephrotoxics monitor renal parameters check TFTs- adjust synthroid dose Urine eos per orders Subjective ROS Limited/Unobtainable: No Constitutional: Reports: malaise, weakness Objective Objective Last 24 Hour Vital Signs Date Time Temp Pulse Resp B/P (MAP) Pulse Ox O2 Delivery O2 Flow Rate FiO2 07/20/19 10:00 72 23 127/53 (77) 100 07/20/19 09:00 76 24 127/54 (78) 96 07/20/19 09:00 Venturi Mask 14.0 07/20/19 08:00 14.0 07/20/19 08:00 98.8 67 22 146/58 (87) 99 07/20/19 07:00 79 26 141/67 (91) 100 07/20/19 06:00 76 24 122/56 (78) 100 07/20/19 05:00 74 27 142/79 (100) 100 07/20/19 04:00 Venturi Mask 14.0 07/20/19 04:00 98.6 76 26 142/67 (92) 100 07/20/19 04:00 14.0 07/20/19 03:06 84 07/20/19 03:00 77 29 142/77 (98) 100 07/20/19 02:00 73 23 149/53 (85) 100 07/20/19 01:22 100 Venturi Mask 10.0 45 07/20/19 01:00 76 28 148/67 (94) 100 07/20/19 00:00 Venturi Mask 14.0 07/20/19 00:00 98.8 78 28 104/87 (93) 100 07/19/19 23:03 72 07/19/19 23:00 76 25 124/36 (65) 100 07/19/19 22:00 74 27 130/47 (74) 100 07/19/19 21:00 98.3 67 28 97/55 (69) 100 07/19/19 20:00 74 31 113/51 (71) 100 07/19/19 20:00 14.0 07/19/19 20:00 Venturi Mask 14.0 07/19/19 19:31 75 07/19/19 19:00 70 30 111/43 (65) 100 07/19/19 18:00 68 25 127/43 (71) 100 07/19/19 17:00 70 30 109/64 (79) 100 07/19/19 16:00 69 26 120/42 (68) 100 07/19/19 16:00 97.8 07/19/19 16:00 14.0 07/19/19 16:00 Venturi Mask 14.0 07/19/19 15:48 72 07/19/19 15:00 70 29 131/49 (76) 100 07/19/19 14:15 114/46 07/19/19 14:00 73 32 114/46 (68) 100 07/19/19 13:00 81 39 121/56 (77) 100 07/19/19 12:00 98.6 83 33 132/55 (80) 100 07/19/19 12:00 Venturi Mask 14.0 07/19/19 12:00 14.0 07/19/19 12:00 78 Intake and Output 07/19/19 07/20/19 19:00 07:00 Intake Total 805.000 ml 955 ml Output Total 670 ml 760 ml Balance 135.000 ml 195 ml IV Total 805.000 ml 955 ml Output Urine Total 670 ml 760 ml Laboratory Tests 07/19/19 12:20: Lactic Acid Level 1.70 07/20/19 04:40: White Blood Count 10.2, Red Blood Count 3.27L, Hemoglobin 8.3L, Hematocrit 25.6L , Mean Corpuscular Volume 78L, Mean Corpuscular Hemoglobin 25.4L, Mean Corpuscular Hemoglobin Concent 32.5, Red Cell Distribution Width 16.1H, Platelet Count 258, Mean Platelet Volume 6.3L, Neutrophils (%) (Auto) , Lymphocytes (%) (Auto) , Monocytes (%) (Auto) , Eosinophils (%) (Auto) , Basophils (%) (Auto) , Differential Total Cells Counted 100, Neutrophils % ( Manual) 74, Lymphocytes % (Manual) 12L, Monocytes % (Manual) 1, Eosinophils % ( Manual) 2, Basophils % (Manual) 0, Band Neutrophils 11H, Platelet Estimate Adequate, Platelet Morphology Normal, Anisocytosis 1+, Microcytosis 1+, Erythrocyte Sedimentation Rate 126H, Reticulocyte Count 0.1L, Prothrombin Time 11.8H, Prothromb Time International Ratio 1.1, Activated Partial Thromboplast Time 36H, Sodium Level 146H, Potassium Level 3.9, Chloride Level 114H, Carbon Dioxide Level 22, Anion Gap 10, Blood Urea Nitrogen 34H, Creatinine 1.6H, Estimat Glomerular Filtration Rate 49.9, Glucose Level 80, Hemoglobin A1c 6.5H, Uric Acid 5.6, Calcium Level 9.1, Phosphorus Level 2.3L, Magnesium Level 2.0, Iron Level 9L, Total Iron Binding Capacity 165L, Percent Iron Saturation 5L, Unsaturated Iron Binding 156, Ferritin 129, Total Bilirubin 0.4, Gamma Glutamyl Transpeptidase 37, Aspartate Amino Transf (AST/SGOT) 71H, Alanine Aminotransferase (ALT/SGPT) 48, Alkaline Phosphatase 111, Lactate Dehydrogenase 254H, Troponin I 0.332H, C-Reactive Protein, Quantitative 34.9H, Pro-B-Type Natriuretic Peptide 2941H, Total Protein 7.1, Albumin 2.0L, Globulin 5.1, Albumin/Globulin Ratio 0.4L, Triglycerides Level 65, Cholesterol Level 78, LDL Cholesterol 16, HDL Cholesterol 36L, Cholesterol/HDL Ratio 2.2L, Carcinoembryonic Antigen [Pending], Vitamin B12 Level 1870H, Folate 4.8L, Thyroid Stimulating Hormone (TSH) 9.450H, Free Thyroxine 1.03, Free Triiodothyronine 1.4L, Random Vancomycin Level 12.4 07/20/19 05:30: Stool Occult Blood [Pending] 07/20/19 08:00: Urine Eosinophils None seen 07/20/19 09:03: Arterial Blood pH 7.417, Arterial Blood Partial Pressure CO2 31.7L, Arterial Blood Partial Pressure O2 71.0L, Arterial Blood HCO3 20.0L, Arterial Blood Oxygen Saturation 93.9L, Arterial Blood Base Excess -3.9L, Watson Test Positive Height (Feet): 6 Height (Inches): 1.00 Weight (Pounds): 151 General Appearance: no apparent distress Cardiovascular: normal rate Respiratory/Chest: decreased breath sounds Abdomen: soft Clovis Benites MD Jul 20, 2019 11:20
--- NOTE | 2019-07-20 12:03 | Internal Med Progress Note ---
Subjective Date of Service: Jul 20, 2019 Physician Name Xander Bah Attending Physician Lamont Hayes MD Current Medications Medications (Trade) Dose Ordered Sig/Kike Route PRN Reason Start Time Stop Time Status Last Admin Dose Admin Acetaminophen (Tylenol) 650 mg Q4H PRN ORAL fever 07/18/19 14:15 08/17/19 14:14 Albuterol/ Ipratropium (Albuterol/ Ipratropium) 3 ml Q4H PRN HHN Shortness of Breath 07/18/19 14:15 07/23/19 14:14 Dextrose 1,000 ml @ 75 mls/hr [id number] IV 07/19/19 17:04 08/18/19 17:03 07/20/19 06:06 Folic Acid (Folate) 2 mg DAILY ORAL 07/20/19 11:30 08/19/19 11:29 Heparin Sodium (Porcine) (Heparin 5000 units/ml) 5,000 units EVERY 12 HOURS SUBQ 07/18/19 21:00 08/17/19 20:59 07/20/19 09:16 Levothyroxine Sodium (Synthroid) 50 mcg DAILY@0630 ORAL 07/21/19 06:30 08/18/19 06:29 Meropenem 1 gm/ Sodium Chloride 55 ml @ 110 mls/hr Q12HR@0100,1300 IVPB 07/19/19 13:00 07/24/19 12:59 07/20/19 00:55 Norepinephrine Bitartrate 4 mg/ Dextrose 254 ml @ 0 mls/hr Q24H IV 07/18/19 14:15 08/17/19 14:14 Ondansetron HCl (Zofran) 4 mg Q6H PRN IVP Nausea & Vomiting 07/18/19 14:15 08/17/19 14:14 Pantoprazole (Protonix) 40 mg Q12HR IVP 07/20/19 21:00 08/18/19 08:59 Polyethylene Glycol (Miralax) 17 gm DAILYPRN PRN ORAL Constipation 07/18/19 14:15 08/17/19 14:14 Potassium Phosphate 250 ml @ 62.5 mls/hr ONCE IVPB 07/20/19 12:30 07/20/19 14:00 Quetiapine Fumarate (SEROqueL) 25 mg Q8H PRN ORAL agitation 07/18/19 14:15 08/17/19 14:14 Vancomycin HCl (Vanco rx to dose) 1 ea DAILY PRN MISC Per rx protocol 07/18/19 14:30 08/17/19 14:29 Vancomycin/Sodium Chloride 275 ml @ 183.333 mls/hr ONCE ONCE IVPB 07/20/19 11:00 07/20/19 12:29 07/20/19 11:35 Allergies: Coded Allergies: PENICILLINS (Verified Allergy, Unknown, 10/27/18) tolretas cephalosporins ROS Limited/Unobtainable: Yes Subjective 84 YO M admitted with altered mental status. Now pneumonia and severe sepsis. Cover for Int Med-Dr Hayes. ICU Objective Last Vital Signs Date Time Temp Pulse Resp B/P (MAP) Pulse Ox O2 Delivery O2 Flow Rate FiO2 07/20/19 11:00 64 23 118/62 (80) 100 07/20/19 09:00 Venturi Mask 14.0 07/20/19 08:00 98.8 07/20/19 01:22 45 Laboratory Tests Test 07/19/19 12:20 07/20/19 04:40 07/20/19 05:30 07/20/19 08:00 Lactic Acid Level 1.70 mmol/L (0.4-2.0) White Blood Count 10.2 K/UL (4.8-10.8) Red Blood Count 3.27 M/UL (4.70-6.10) L Hemoglobin 8.3 G/DL (14.2-18.0) L Hematocrit 25.6 % (42.0-52.0) L Mean Corpuscular Volume 78 FL (80-99) L Mean Corpuscular Hemoglobin 25.4 PG (27.0-31.0) L Mean Corpuscular Hemoglobin Concent 32.5 G/DL (32.0-36.0) Red Cell Distribution Width 16.1 % (11.6-14.8) H Platelet Count 258 K/UL (150-450) Mean Platelet Volume 6.3 FL (6.5-10.1) L Neutrophils (%) (Auto) % (45.0-75.0) Lymphocytes (%) (Auto) % (20.0-45.0) Monocytes (%) (Auto) % (1.0-10.0) Eosinophils (%) (Auto) % (0.0-3.0) Basophils (%) (Auto) % (0.0-2.0) Differential Total Cells Counted 100 Neutrophils % (Manual) 74 % (45-75) Lymphocytes % (Manual) 12 % (20-45) L Monocytes % (Manual) 1 % (1-10) Eosinophils % (Manual) 2 % (0-3) Basophils % (Manual) 0 % (0-2) Band Neutrophils 11 % (0-8) H Platelet Estimate Adequate Platelet Morphology Normal Anisocytosis 1+ Microcytosis 1+ Erythrocyte Sedimentation Rate 126 MM/HR (0-20) H Reticulocyte Count 0.1 % (0.5-2.0) L Prothrombin Time 11.8 SEC (9.30-11.50) H Prothromb Time International Ratio 1.1 (0.9-1.1) Activated Partial Thromboplast Time 36 SEC (23-33) H Sodium Level 146 MMOL/L (136-145) H Potassium Level 3.9 MMOL/L (3.5-5.1) Chloride Level 114 MMOL/L (98-107) H Carbon Dioxide Level 22 MMOL/L (21-32) Anion Gap 10 mmol/L (5-15) Blood Urea Nitrogen 34 mg/dL (7-18) H Creatinine 1.6 MG/DL (0.55-1.30) H Estimat Glomerular Filtration Rate 49.9 mL/min (>60) Glucose Level 80 MG/DL (74-106) Hemoglobin A1c 6.5 % (4.3-6.0) H Uric Acid 5.6 MG/DL (2.6-7.2) Calcium Level 9.1 MG/DL (8.5-10.1) Phosphorus Level 2.3 MG/DL (2.5-4.9) L Magnesium Level 2.0 MG/DL (1.8-2.4) Iron Level 9 ug/dL (50-175) L Total Iron Binding Capacity 165 ug/dL (250-450) L Percent Iron Saturation 5 % (15-50) L Unsaturated Iron Binding 156 ug/dL (112-346) Ferritin 129 NG/ML (8-388) Total Bilirubin 0.4 MG/DL (0.2-1.0) Gamma Glutamyl Transpeptidase 37 U/L (5-85) Aspartate Amino Transf (AST/SGOT) 71 U/L (15-37) H Alanine Aminotransferase (ALT/SGPT) 48 U/L (12-78) Alkaline Phosphatase 111 U/L (46-116) Lactate Dehydrogenase 254 U/L (81-234) H Troponin I 0.332 ng/mL (0.000-0.056) C-Reactive Protein, Quantitative 34.9 mg/dL (0.00-0.90) H Pro-B-Type Natriuretic Peptide 2941 pg/mL (0-125) H Total Protein 7.1 G/DL (6.4-8.2) Albumin 2.0 G/DL (3.4-5.0) L Globulin 5.1 g/dL Albumin/Globulin Ratio 0.4 (1.0-2.7) L Triglycerides Level 65 MG/DL (30-150) Cholesterol Level 78 MG/DL (< 200) LDL Cholesterol 16 mg/dL (<100) HDL Cholesterol 36 MG/DL (40-60) L Cholesterol/HDL Ratio 2.2 (3.3-4.4) L Carcinoembryonic Antigen Pending Vitamin B12 Level 1870 PG/ML (193-986) H Folate 4.8 NG/ML (8.6-58.9) L Thyroid Stimulating Hormone (TSH) 9.450 uiU/mL (0.358-3.740) Free Thyroxine 1.03 NG/DL (0.76-1.46) Free Triiodothyronine 1.4 pg/mL (2.3-4.2) L Random Vancomycin Level 12.4 ug/mL Stool Occult Blood Pending Urine Eosinophils None seen (NONE SEEN) Test 07/20/19 09:03 Arterial Blood pH 7.417 (7.350-7.450) Arterial Blood Partial Pressure CO2 31.7 mmHg (35.0-45.0) L Arterial Blood Partial Pressure O2 71.0 mmHg (75.0-100.0) L Arterial Blood HCO3 20.0 mmol/L (22.0-26.0) L Arterial Blood Oxygen Saturation 93.9 % (95-100) L Arterial Blood Base Excess -3.9 (-2-2) L Watson Test Positive Microbiology Date/Time Source Procedure Growth Status 07/18/19 11:55 Blood Blood Culture - Preliminary NO GROWTH AFTER 24 HOURS Resulted 07/18/19 11:40 Blood Blood Culture - Preliminary NO GROWTH AFTER 24 HOURS Resulted 07/18/19 14:14 Nasal Nares MRSA Culture - Final NO METHICILLIN RESISTANT STAPH AUREUS... Complete 07/18/19 12:19 Nasal Nares - Final Complete 07/18/19 12:19 Nasal Nares - Final Complete 07/19/19 10:45 Urine,Clean Catch Urine Culture - Preliminary NO GROWTH Resulted 07/18/19 14:40 Urine,Clean Catch Urine Culture - Preliminary Gram Negative Bacillus 1 Resulted 07/18/19 14:14 Rectum - Final NO CARBAPENEM-RESISTANT ENTEROBACTERI... Complete 07/18/19 14:14 Rectum VRE Culture - Final NO VANCOMYCIN RESISTANT ENTEROCOCCUS ... Complete Intake and Output 07/19/19 07/20/19 19:00 07:00 Intake Total 805.000 ml 955 ml Output Total 670 ml 760 ml Balance 135.000 ml 195 ml IV Total 805.000 ml 955 ml Output Urine Total 670 ml 760 ml Objective PHYSICAL EXAMINATION: GENERAL: The patient is a well-developed, well-nourished, thin-appearing male, who is in moderate respiratory distress. HEENT: Eyes, pupils are equal and responsive to light and accommodation. Extraocular movements are intact. NECK: Supple without lymphadenopathy. CHEST: Venturi mask; Lungs with bilateral wheezes and rhonchi; breath sounds decreased at bases CARDIOVASCULAR: Regular rhythm and rate. S1 and S2 are normal without murmurs, rubs, or gallops. ABDOMEN: Soft, nontender, and nondistended. Positive bowel sounds. No evidence of hepatosplenomegaly. Currently, no rebound or guarding noted. EXTREMITIES: Negative for clubbing, cyanosis, or edema. RECTAL/GENITAL: Not performed. NEUROLOGIC: Cranial nerves II through XII are grossly intact without focal deficits. Motor strength is 5/5 bilaterally. Deep tendon reflexes are 2+ plantar. Assessment/Plan Assessment/Plan ASSESSMENT: This is an 84-year-old male. 1. Bilateral pneumonia. 2. Respiratory failure. 3. Probable sepsis. 4. Altered mental status. 5. Diabetes type 2. 6. Hypothyroidism. 7. Cerebrovascular disease. 8. Acute renal failure. 9. Leukocytosis 10. Hypernatremia TREATMENT: 1. Respiratory failure/bilateral pneumonia. A Pulmonary consultation has been obtained with Dr. Vania Hui. The patient is currently admitted to the intensive care unit. The patient is currently on a venturi mask. The patient has been started empirically on vancomycin and ertapenem. A sputum culture is pending. Await sputum culture results. 2. Altered mental status. This is probably secondary to hypoxia secondary to pneumonia as above. 3. Diabetes type 2. The patient was admitted without antihyperglycemic medication. 4. Hypothyroidism. Continue Levoxyl as above. 5. Cerebrovascular disease. The patient is status post cerebrovascular accident. 6. Acute renal failure. This may be secondary to acute dehydration. The patient is currently receiving intravenous fluids. 7. Severe Sepsis. ABX=vanco and meropenem. ID=Xander Gill MD Jul 20, 2019 12:03
[2019-07-20] MEDS ORDERED: Potassium Phosphate 15mm/250ml 250 ML IVPB SCH (12:30)
--- NOTE | 2019-07-20 13:41 | NUR ---
NURSE NOTES: ST eval is being done at bedside.
[2019-07-20] MEDS ORDERED: Tubing IV Secondary IV ONE (13:51)
[2019-07-20] MEDS ORDERED: NS 275ml ONE (13:51)
--- NOTE | 2019-07-20 14:31 | NUR ---
ST NOTES: REFERRED FOR SWALLOW EVAL BY DR DIAZ, SEE FULL REPORT. DYSPHAGIA RISK FACTORS FOR THIS ADVANCED AGED 84 Y.O.M.: ACUTE ISSUES: PNA, SEPSIS, ALOC, HYPOTENSION, ACUTE RENAL FAILURE, RESP DISTRESS AND NEEDS VENTURIMASK 14 LITERS 02, SP02 96-100, RESP RATE 17-24, LOW TO HIGH BLOOD PRESSURE IN ICU. H/O OP DYSPHAGIA (MILD-MOD), CVA, DEMENTIA, PSY MEDS (REMERON), SEPSIS, WT LOSS, ASSINIBOINE AND [place],DIABETES. POLST NOT COMPLETED. AT [facility] ON A CARB CONTROLLED FORTIFIED DYSPHAGIA MECH SOFT DIET WITH HONEY THICK LIQUIDS 4 OZ PUDDING FOR LUNCH AND DINNER. AT [facility] 10/2018, SHE HAD A MILD-MOD OP DYSPHAGIA AND PUT ON LIQUIFIED PUREED LIKE NECTAR THICK SOUP. MOD BARIUM SWALLOW STUDY RECOMMENDED BUT NOT COMPLETED DUE TO SCHEDULE CONFLICTS. CURRENTLY, THE PT IS NPO EXCEPT ICE CHIPS AND MEDS (NOT GIVEN). PT PULLED OUT HIS NGT LAST NIGHT PER RN (WAS ON GLUCERNA FORMULA FEEDINGS). PATIENT IS EDENTULOUS AND DID NOT FOLLOW COMMANDS. INITIAL IMPRESSIONS: NOT CONSISTENTLY ALERT FOR ADEQUATE/SAFE PO INTAKE HIGH RISK FOR PERSISTENT AND WORSENED OROPHARYNGEAL DYSPHAGIA NEEDS DEEP NASAL SUCTION PER RN (MOD REDDISH AMOUNTS AND THICK) HIGH RISK FOR SILENT ASPIRATION GIVEN H/O CVA AND DEMENTIA RECOMMENDATIONS: CONTINUE WITH NPO (NO ICE CHIPS/MEDS) INITIATE NGT (12 KAZAKH IF POSSIBLE) FEEDINGS AND CONTINUE WITH ORAL CARE AND SUCTION PRN COMPLETE MOD BARIUM SWALLOW STUDY WHEN READY/ALERT SKILLED DYSPHAGIA MANAGEMENT AND TX AND COG-COM EVAL/TX EDUCATED/TRAINED KAI RIVERS IN POSTED PRECAUTIONS
--- NOTE | 2019-07-20 15:30 | NUR ---
NURSE NOTES: Pt pulled out condom catheter. Cleaned pt for leaked urine and inserted a new condom cath. Repositioned pt. Will continue to monitor.
--- NOTE | 2019-07-20 16:27 | Infectious Diseases Prog Note ---
Assessment/Plan Assessment/Plan Assessment: Severe sepsis Pneumonia Probable UTI -u/a wbc 15-20, nit neg, leuk +3; ucx <10k GNR -07/19 CXR: marked worsening of pleural and parenchymal disease at the right lung base.There is also increasing parenchymal consolidation and atelectasis in the left infrahilar region. -CXR: Perihilar and basilar infiltrates. Findings suspicious for pneumonia. -influenza sc neg -Bcx NTD -sp cx p Hypothermia, SP Leukocytosis, SP Acute respiratory failure, on NRB mask Lactic acidosis, SP RAMAN, improving Dm2 HTN non verbal hypothyroidism CVA hx of UTI anemia dementia senior care resident Plan: -Continue empiric IV Vancomycin #3 and Meropenem #2 pending cultures -07/19 SP Ertapenem #2 -07/18 SP IV Amikacin x1, Levaquin x1 -f/u cx -Monitor CBC/CMP, temperatures -ICU care -aspiration precautions -legionella ag urine Thank you for this consultation. Will continue to follow along with you. Discussed with RN Subjective Allergies: Coded Allergies: PENICILLINS (Verified Allergy, Unknown, 10/27/18) tolretas cephalosporins Subjective afebrile no leukocytosis Bcx NTD on VM 45% Objective Vital Signs Last 24 Hour Vital Signs Date Time Temp Pulse Resp B/P (MAP) Pulse Ox O2 Delivery O2 Flow Rate FiO2 07/20/19 16:00 Venturi Mask 14.0 07/20/19 16:00 57 20 134/62 (86) 100 07/20/19 15:00 58 19 133/70 (91) 100 07/20/19 14:00 64 23 135/53 (80) 100 07/20/19 13:00 69 17 155/70 (98) 100 07/20/19 12:00 98.6 07/20/19 12:00 64 07/20/19 12:00 14.0 07/20/19 12:00 62 19 153/105 (121) 100 07/20/19 12:00 Venturi Mask 14.0 07/20/19 11:00 64 23 118/62 (80) 100 07/20/19 10:00 72 23 127/53 (77) 100 07/20/19 09:02 100 Venturi Mask 10.0 45 07/20/19 09:00 76 24 127/54 (78) 96 07/20/19 09:00 Venturi Mask 14.0 07/20/19 08:00 14.0 07/20/19 08:00 98.8 67 22 146/58 (87) 99 07/20/19 07:00 79 26 141/67 (91) 100 07/20/19 06:00 76 24 122/56 (78) 100 07/20/19 05:00 74 27 142/79 (100) 100 07/20/19 04:00 Venturi Mask 14.0 07/20/19 04:00 98.6 76 26 142/67 (92) 100 07/20/19 04:00 14.0 07/20/19 03:06 84 07/20/19 03:00 77 29 142/77 (98) 100 07/20/19 02:00 73 23 149/53 (85) 100 07/20/19 01:22 100 Venturi Mask 10.0 45 07/20/19 01:00 76 28 148/67 (94) 100 07/20/19 00:00 Venturi Mask 14.0 07/20/19 00:00 98.8 78 28 104/87 (93) 100 07/19/19 23:03 72 07/19/19 23:00 76 25 124/36 (65) 100 07/19/19 22:00 74 27 130/47 (74) 100 07/19/19 21:00 98.3 67 28 97/55 (69) 100 07/19/19 20:00 74 31 113/51 (71) 100 07/19/19 20:00 14.0 07/19/19 20:00 Venturi Mask 14.0 07/19/19 19:31 75 07/19/19 19:00 70 30 111/43 (65) 100 07/19/19 18:00 68 25 127/43 (71) 100 07/19/19 17:00 70 30 109/64 (79) 100 Height (Feet): 6 Height (Inches): 1.00 Weight (Pounds): 151 Objective GENERAL: The patient is a well-developed, well-nourished, thin-appearing male, who is in moderate respiratory distress. HEENT: Eyes, pupils are equal and responsive to light and accommodation. Extraocular movements are intact. NECK: Supple without lymphadenopathy. CHEST: Lungs are clear to auscultation bilaterally without wheezes or rales. CARDIOVASCULAR: Regular rhythm and rate. S1 and S2 are normal without murmurs, rubs, or gallops. ABDOMEN: Soft, nontender, and nondistended. Positive bowel sounds. No evidence of hepatosplenomegaly. Currently, no rebound or guarding noted. EXTREMITIES: Negative for clubbing, cyanosis, or edema. Microbiology Date/Time Source Procedure Growth Status 07/18/19 11:55 Blood Blood Culture - Preliminary NO GROWTH AFTER 24 HOURS Resulted 07/18/19 11:40 Blood Blood Culture - Preliminary NO GROWTH AFTER 24 HOURS Resulted 07/19/19 20:44 Sputum Gram Stain - Final Resulted 07/19/19 20:44 Sputum Sputum Culture Pending Resulted 07/18/19 14:14 Nasal Nares MRSA Culture - Final NO METHICILLIN RESISTANT STAPH AUREUS... Complete 07/18/19 12:19 Nasal Nares - Final Complete 07/18/19 12:19 Nasal Nares - Final Complete 07/19/19 10:45 Urine,Clean Catch Urine Culture - Preliminary NO GROWTH Resulted 07/18/19 14:40 Urine,Clean Catch Urine Culture - Preliminary Gram Negative Bacillus 1 Resulted 07/18/19 14:14 Rectum - Final NO CARBAPENEM-RESISTANT ENTEROBACTERI... Complete 07/18/19 14:14 Rectum VRE Culture - Final NO VANCOMYCIN RESISTANT ENTEROCOCCUS ... Complete Laboratory Tests Test 07/20/19 04:40 07/20/19 05:30 07/20/19 08:00 07/20/19 09:03 White Blood Count 10.2 K/UL (4.8-10.8) Red Blood Count 3.27 M/UL (4.70-6.10) L Hemoglobin 8.3 G/DL (14.2-18.0) L Hematocrit 25.6 % (42.0-52.0) L Mean Corpuscular Volume 78 FL (80-99) L Mean Corpuscular Hemoglobin 25.4 PG (27.0-31.0) L Mean Corpuscular Hemoglobin Concent 32.5 G/DL (32.0-36.0) Red Cell Distribution Width 16.1 % (11.6-14.8) H Platelet Count 258 K/UL (150-450) Mean Platelet Volume 6.3 FL (6.5-10.1) L Neutrophils (%) (Auto) % (45.0-75.0) Lymphocytes (%) (Auto) % (20.0-45.0) Monocytes (%) (Auto) % (1.0-10.0) Eosinophils (%) (Auto) % (0.0-3.0) Basophils (%) (Auto) % (0.0-2.0) Differential Total Cells Counted 100 Neutrophils % (Manual) 74 % (45-75) Lymphocytes % (Manual) 12 % (20-45) L Monocytes % (Manual) 1 % (1-10) Eosinophils % (Manual) 2 % (0-3) Basophils % (Manual) 0 % (0-2) Band Neutrophils 11 % (0-8) H Other Cell Type Pathologist review Platelet Estimate Adequate Platelet Morphology Normal Anisocytosis 1+ Microcytosis 1+ Erythrocyte Sedimentation Rate 126 MM/HR (0-20) H Reticulocyte Count 0.1 % (0.5-2.0) L Prothrombin Time 11.8 SEC (9.30-11.50) H Prothromb Time International Ratio 1.1 (0.9-1.1) Activated Partial Thromboplast Time 36 SEC (23-33) H Sodium Level 146 MMOL/L (136-145) H Potassium Level 3.9 MMOL/L (3.5-5.1) Chloride Level 114 MMOL/L (98-107) H Carbon Dioxide Level 22 MMOL/L (21-32) Anion Gap 10 mmol/L (5-15) Blood Urea Nitrogen 34 mg/dL (7-18) H Creatinine 1.6 MG/DL (0.55-1.30) H Estimat Glomerular Filtration Rate 49.9 mL/min (>60) Glucose Level 80 MG/DL (74-106) Hemoglobin A1c 6.5 % (4.3-6.0) H Uric Acid 5.6 MG/DL (2.6-7.2) Calcium Level 9.1 MG/DL (8.5-10.1) Phosphorus Level 2.3 MG/DL (2.5-4.9) L Magnesium Level 2.0 MG/DL (1.8-2.4) Iron Level 9 ug/dL (50-175) L Total Iron Binding Capacity 165 ug/dL (250-450) L Percent Iron Saturation 5 % (15-50) L Unsaturated Iron Binding 156 ug/dL (112-346) Ferritin 129 NG/ML (8-388) Total Bilirubin 0.4 MG/DL (0.2-1.0) Gamma Glutamyl Transpeptidase 37 U/L (5-85) Aspartate Amino Transf (AST/SGOT) 71 U/L (15-37) H Alanine Aminotransferase (ALT/SGPT) 48 U/L (12-78) Alkaline Phosphatase 111 U/L (46-116) Lactate Dehydrogenase 254 U/L (81-234) H Troponin I 0.332 ng/mL (0.000-0.056) C-Reactive Protein, Quantitative 34.9 mg/dL (0.00-0.90) H Pro-B-Type Natriuretic Peptide 2941 pg/mL (0-125) H Total Protein 7.1 G/DL (6.4-8.2) Albumin 2.0 G/DL (3.4-5.0) L Globulin 5.1 g/dL Albumin/Globulin Ratio 0.4 (1.0-2.7) L Triglycerides Level 65 MG/DL (30-150) Cholesterol Level 78 MG/DL (< 200) LDL Cholesterol 16 mg/dL (<100) HDL Cholesterol 36 MG/DL (40-60) L Cholesterol/HDL Ratio 2.2 (3.3-4.4) L Carcinoembryonic Antigen Pending Vitamin B12 Level 1870 PG/ML (193-986) H Folate 4.8 NG/ML (8.6-58.9) L Thyroid Stimulating Hormone (TSH) 9.450 uiU/mL (0.358-3.740) Free Thyroxine 1.03 NG/DL (0.76-1.46) Free Triiodothyronine 1.4 pg/mL (2.3-4.2) L Random Vancomycin Level 12.4 ug/mL Stool Occult Blood Negative (NEGATIVE) Urine Eosinophils None seen (NONE SEEN) Arterial Blood pH 7.417 (7.350-7.450) Arterial Blood Partial Pressure CO2 31.7 mmHg (35.0-45.0) L Arterial Blood Partial Pressure O2 71.0 mmHg (75.0-100.0) L Arterial Blood HCO3 20.0 mmol/L (22.0-26.0) L Arterial Blood Oxygen Saturation 93.9 % (95-100) L Arterial Blood Base Excess -3.9 (-2-2) L Watson Test Positive Current Medications Medications (Trade) Dose Ordered Sig/Kike Route PRN Reason Start Time Stop Time Status Last Admin Dose Admin Acetaminophen (Tylenol) 650 mg Q4H PRN ORAL fever 07/18/19 14:15 08/17/19 14:14 Albuterol/ Ipratropium (Albuterol/ Ipratropium) 3 ml Q4H PRN HHN Shortness of Breath 07/18/19 14:15 07/23/19 14:14 Dextrose 1,000 ml @ 75 mls/hr [id number] IV 07/19/19 17:04 08/18/19 17:03 07/20/19 06:06 Folic Acid (Folate) 2 mg DAILY ORAL 07/20/19 11:30 08/19/19 11:29 Heparin Sodium (Porcine) (Heparin 5000 units/ml) 5,000 units EVERY 12 HOURS SUBQ 07/18/19 21:00 08/17/19 20:59 07/20/19 09:16 Levothyroxine Sodium (Synthroid) 50 mcg DAILY@0630 ORAL 07/21/19 06:30 08/18/19 06:29 Meropenem 1 gm/ Sodium Chloride 55 ml @ 110 mls/hr Q12HR@0100,1300 IVPB 07/19/19 13:00 07/24/19 12:59 07/20/19 14:00 Norepinephrine Bitartrate 4 mg/ Dextrose 254 ml @ 0 mls/hr Q24H IV 07/18/19 14:15 08/17/19 14:14 Ondansetron HCl (Zofran) 4 mg Q6H PRN IVP Nausea & Vomiting 07/18/19 14:15 08/17/19 14:14 Pantoprazole (Protonix) 40 mg Q12HR IVP 07/20/19 21:00 08/18/19 08:59 Polyethylene Glycol (Miralax) 17 gm DAILYPRN PRN ORAL Constipation 07/18/19 14:15 08/17/19 14:14 Quetiapine Fumarate (SEROqueL) 25 mg Q8H PRN ORAL agitation 07/18/19 14:15 08/17/19 14:14 Vancomycin HCl (Vanco rx to dose) 1 ea DAILY PRN MISC Per rx protocol 07/18/19 14:30 08/17/19 14:29 Danielle Roach M.D. Jul 20, 2019 16:27
--- NOTE | 2019-07-20 17:22 | NUR ---
NURSE NOTES: 12 Fr NGT inserted as speech therapy recommended. Pt tolerated well. STAT KUB ordered to check placement. Cleaned and repositioned pt. Will continue to monitor.
--- NOTE | 2019-07-20 17:50 | Diagnostic Imaging Report ---
Indication: Post nasogastric tube placement Technique: Supine view of the abdomen Comparison: 07/18/2019 Findings: Advancement of previously malpositioned nasogastric tube, tip now projecting at the level gastric body, proximal port well beyond the gastroesophageal junction. Unremarkable bowel gas pattern. Cholecystectomy clips are again demonstrated. Impression: Improved and now satisfactory position of nasogastric tube This agrees with the preliminary interpretation provided overnight by [facility] teleradiology service.
--- NOTE | 2019-07-20 19:15 | NUR ---
NURSE NOTES: Received patient from KAI Wilson. Pt. asleep but easily awakened. OX1. Calm and cooperative. SR on cardiac cath lab technologist. On VM at 55%. IV site is Right Forearm 20g, receiving D5W at 75cc/hr, Left AC #20g patent and asymptomatic. Condom catheter intact and draining well of hazy cammy urine. In no apparent distress. Bed in lowest position w/side rails up x3. bed alarm and lock engaged. HOB elevated. Will continue POC.
--- NOTE | 2019-07-20 19:36 | NUR ---
HAND-OFF: Report given to Andrew Lamb RN.
[2019-07-20] MEDS ORDERED: Pantoprazole Inj IVP SCH (21:00)
--- NOTE | 2019-07-20 23:00 | NUR ---
NURSE NOTES: Pt. asleep but easily awakened. OX1. SR on threat monitoring analyst. On VM at 55%. IV site is Right Forearm #20g, infusing well of D5W at 75cc/hr, Left AC #20g patent and asymptomatic. Condom catheter intact and draining well of hazy cammy urine. In no apparent distress. Bed in lowest position w/side rails up x3. bed alarm and lock engaged. HOB elevated. Will continue POC.
[2019-07-21] VITALS (10 sets, daily range): BP systolic 110–176; BP diastolic 38–115
--- NOTE | 2019-07-21 00:38 | Cardiology Progress Note ---
Assessment/Plan Assessment/Plan 1. Toxic metabolic encephalopathy. 2. Pneumonia. 3. Respiratory insufficiency. 4. Dementia. 5. Hypernatremia. 6. History of CVA. 7. History of hypertension. 8. History of diabetes mellitus. 9. History of hypothyroidism. date of this visit is 07/20/2019 doikraig well is more awatk tele reviewed no afib jsut sinus abx off vent improved Subjective Cardiovascular: Denies: chest pain, lightheadedness, palpitations Respiratory: Denies: cough Gastrointestinal/Abdominal: Denies: abdominal pain Genitourinary: Denies: burning Objective Last 24 Hour Vital Signs Date Time Temp Pulse Resp B/P (MAP) Pulse Ox O2 Delivery O2 Flow Rate FiO2 07/20/19 23:00 61 25 125/60 (81) 100 07/20/19 22:00 66 23 156/95 (115) 100 07/20/19 21:00 68 29 159/63 (95) 100 07/20/19 20:00 98.4 59 24 131/59 (83) 100 07/20/19 20:00 60 07/20/19 20:00 14.0 07/20/19 20:00 Venturi Mask 14.0 07/20/19 19:00 59 25 129/78 (95) 100 07/20/19 18:00 57 22 100/43 (62) 100 07/20/19 17:22 Venturi Mask 14.0 07/20/19 17:00 97.7 61 31 134/61 (85) 100 07/20/19 16:00 Venturi Mask 14.0 07/20/19 16:00 60 07/20/19 16:00 57 20 134/62 (86) 100 07/20/19 16:00 14.0 07/20/19 15:00 58 19 133/70 (91) 100 07/20/19 14:00 64 23 135/53 (80) 100 07/20/19 13:00 69 17 155/70 (98) 100 07/20/19 12:00 98.6 07/20/19 12:00 64 07/20/19 12:00 14.0 07/20/19 12:00 62 19 153/105 (121) 100 07/20/19 12:00 Venturi Mask 14.0 07/20/19 11:00 64 23 118/62 (80) 100 2/12/20 10:00 72 23 127/53 (77) 100 07/20/19 09:02 100 Venturi Mask 10.0 45 07/20/19 09:00 76 24 127/54 (78) 96 07/20/19 09:00 Venturi Mask 14.0 07/20/19 08:00 72 07/20/19 08:00 14.0 07/20/19 08:00 98.8 67 22 146/58 (87) 99 07/20/19 07:00 79 26 141/67 (91) 100 07/20/19 06:00 76 24 122/56 (78) 100 07/20/19 05:00 74 27 142/79 (100) 100 07/20/19 04:00 Venturi Mask 14.0 07/20/19 04:00 98.6 76 26 142/67 (92) 100 07/20/19 04:00 14.0 07/20/19 03:06 84 07/20/19 03:00 77 29 142/77 (98) 100 07/20/19 02:00 73 23 149/53 (85) 100 07/20/19 01:22 100 Venturi Mask 10.0 45 07/20/19 01:00 76 28 148/67 (94) 100 General Appearance: alert Neck: supple Cardiovascular: normal rate Respiratory/Chest: lungs clear Abdomen: normal bowel sounds, non tender, soft Intake and Output 07/20/19 07/21/19 19:00 07:00 Intake Total 955 ml 300 ml Output Total 490 ml Balance 465 ml 300 ml IV Total 955 ml 300 ml Output Urine Total 490 ml Laboratory Tests Test 07/20/19 04:40 07/20/19 05:30 07/20/19 08:00 07/20/19 09:03 White Blood Count 10.2 K/UL (4.8-10.8) Red Blood Count 3.27 M/UL (4.70-6.10) L Hemoglobin 8.3 G/DL (14.2-18.0) L Hematocrit 25.6 % (42.0-52.0) L Mean Corpuscular Volume 78 FL (80-99) L Mean Corpuscular Hemoglobin 25.4 PG (27.0-31.0) L Mean Corpuscular Hemoglobin Concent 32.5 G/DL (32.0-36.0) Red Cell Distribution Width 16.1 % (11.6-14.8) H Platelet Count 258 K/UL (150-450) Mean Platelet Volume 6.3 FL (6.5-10.1) L Neutrophils (%) (Auto) % (45.0-75.0) Lymphocytes (%) (Auto) % (20.0-45.0) Monocytes (%) (Auto) % (1.0-10.0) Eosinophils (%) (Auto) % (0.0-3.0) Basophils (%) (Auto) % (0.0-2.0) Differential Total Cells Counted 100 Neutrophils % (Manual) 74 % (45-75) Lymphocytes % (Manual) 12 % (20-45) L Monocytes % (Manual) 1 % (1-10) Eosinophils % (Manual) 2 % (0-3) Basophils % (Manual) 0 % (0-2) Band Neutrophils 11 % (0-8) H Other Cell Type Pathologist review Platelet Estimate Adequate Platelet Morphology Normal Anisocytosis 1+ Microcytosis 1+ Erythrocyte Sedimentation Rate 126 MM/HR (0-20) H Reticulocyte Count 0.1 % (0.5-2.0) L Prothrombin Time 11.8 SEC (9.30-11.50) H Prothromb Time International Ratio 1.1 (0.9-1.1) Activated Partial Thromboplast Time 36 SEC (23-33) H Sodium Level 146 MMOL/L (136-145) H Potassium Level 3.9 MMOL/L (3.5-5.1) Chloride Level 114 MMOL/L (98-107) H Carbon Dioxide Level 22 MMOL/L (21-32) Anion Gap 10 mmol/L (5-15) Blood Urea Nitrogen 34 mg/dL (7-18) H Creatinine 1.6 MG/DL (0.55-1.30) H Estimat Glomerular Filtration Rate 49.9 mL/min (>60) Glucose Level 80 MG/DL (74-106) Hemoglobin A1c 6.5 % (4.3-6.0) H Uric Acid 5.6 MG/DL (2.6-7.2) Calcium Level 9.1 MG/DL (8.5-10.1) Phosphorus Level 2.3 MG/DL (2.5-4.9) L Magnesium Level 2.0 MG/DL (1.8-2.4) Iron Level 9 ug/dL (50-175) L Total Iron Binding Capacity 165 ug/dL (250-450) L Percent Iron Saturation 5 % (15-50) L Unsaturated Iron Binding 156 ug/dL (112-346) Ferritin 129 NG/ML (8-388) Total Bilirubin 0.4 MG/DL (0.2-1.0) Gamma Glutamyl Transpeptidase 37 U/L (5-85) Aspartate Amino Transf (AST/SGOT) 71 U/L (15-37) H Alanine Aminotransferase (ALT/SGPT) 48 U/L (12-78) Alkaline Phosphatase 111 U/L (46-116) Lactate Dehydrogenase 254 U/L (81-234) H Troponin I 0.332 ng/mL (0.000-0.056) C-Reactive Protein, Quantitative 34.9 mg/dL (0.00-0.90) H Pro-B-Type Natriuretic Peptide 2941 pg/mL (0-125) H Total Protein 7.1 G/DL (6.4-8.2) Albumin 2.0 G/DL (3.4-5.0) L Globulin 5.1 g/dL Albumin/Globulin Ratio 0.4 (1.0-2.7) L Triglycerides Level 65 MG/DL (30-150) Cholesterol Level 78 MG/DL (< 200) LDL Cholesterol 16 mg/dL (<100) HDL Cholesterol 36 MG/DL (40-60) L Cholesterol/HDL Ratio 2.2 (3.3-4.4) L Carcinoembryonic Antigen Pending Vitamin B12 Level 1870 PG/ML (193-986) H Folate 4.8 NG/ML (8.6-58.9) L Thyroid Stimulating Hormone (TSH) 9.450 uiU/mL (0.358-3.740) Free Thyroxine 1.03 NG/DL (0.76-1.46) Free Triiodothyronine 1.4 pg/mL (2.3-4.2) L Random Vancomycin Level 12.4 ug/mL Stool Occult Blood Negative (NEGATIVE) Urine Eosinophils None seen (NONE SEEN) Urine Legionella Antigen Pending Arterial Blood pH 7.417 (7.350-7.450) Arterial Blood Partial Pressure CO2 31.7 mmHg (35.0-45.0) L Arterial Blood Partial Pressure O2 71.0 mmHg (75.0-100.0) L Arterial Blood HCO3 20.0 mmol/L (22.0-26.0) L Arterial Blood Oxygen Saturation 93.9 % (95-100) L Arterial Blood Base Excess -3.9 (-2-2) L Watson Test Positive Microbiology Date/Time Source Procedure Growth Status 07/18/19 11:55 Blood Blood Culture - Preliminary NO GROWTH AFTER 24 HOURS Resulted 07/18/19 11:40 Blood Blood Culture - Preliminary NO GROWTH AFTER 24 HOURS Resulted 07/19/19 20:44 Sputum Gram Stain - Final Resulted 07/19/19 20:44 Sputum Sputum Culture Pending Resulted 07/18/19 14:14 Nasal Nares MRSA Culture - Final NO METHICILLIN RESISTANT STAPH AUREUS... Complete 07/18/19 12:19 Nasal Nares - Final Complete 07/18/19 12:19 Nasal Nares - Final Complete 07/19/19 10:45 Urine,Clean Catch Urine Culture - Preliminary NO GROWTH Resulted 07/18/19 14:40 Urine,Clean Catch Urine Culture - Preliminary Gram Negative Bacillus 1 Resulted 07/18/19 14:14 Rectum - Final NO CARBAPENEM-RESISTANT ENTEROBACTERI... Complete 07/18/19 14:14 Rectum VRE Culture - Final NO VANCOMYCIN RESISTANT ENTEROCOCCUS ... Complete Juarez Fletcher MD Jul 21, 2019 00:37
[2019-07-21] MEDS: Meropenem 1 GM in NS 55 ML IVPB SCH ×2 (01:21→13:18)
--- NOTE | 2019-07-21 03:00 | NUR ---
NURSE NOTES: Pt. remain asleep but easily awakened. OX1. SR on monitoring tech. On VM at 55%. IV site is Right Forearm #20g, infusing well of D5W at 75cc/hr, Left AC #20g patent and asymptomatic. Condom catheter intact and draining well of hazy cammy urine. In no apparent distress. Bed in lowest position w/side rails up x3. bed alarm and lock engaged. HOB elevated. Will continue POC.
[2019-07-21] MEDS ORDERED: Miralax 17gm pkt ORAL PRN (05:30)
[2019-07-21] MEDS ORDERED: Albuterol/Ipratropium 3ml neb HHN PRN (06:15)
--- NOTE | 2019-07-21 07:15 | NUR ---
NURSE NOTES: Received patient from KAI Morales. Patient is sleeping in bed and aox1. Patient is on Venturi mask 14L at 55% tolerating well with a saturation of 98%. Patient has NG tube in L nare running 50ml/hr. IV site R FA 20g patent and running d5w at 75ml/hr. Patient has a condom cath draining cammy colored urine. Bed is in lowest position, alarmed, locked and side rails x3. HOB elevated, and call light within reach. Will continue to monitor.
--- NOTE | 2019-07-21 07:15 | NUR ---
HAND-OFF: Report given to Mel Santos RN.
[2019-07-21 08:38] LABS: BASOPHILS % (AUTO) 0.4 % (0.0-2.0); EOSINOPHILS % (AUTO) 5.8 % (0.0-3.0); LYMPHOCYTES % (AUTO) 10.9 % (20.0-45.0); MEAN CORPUSCULAR VOLUME 78 FL (80-99); MONOCYTES % (AUTO) 4.4 % (1.0-10.0); NEUTROPHILS % (AUTO) 78.4 % (45.0-75.0); PLATELET COUNT 224 K/UL (150-450); RED BLOOD COUNT 3.19 M/UL (4.70-6.10); WHITE BLOOD COUNT 8.1 K/UL (4.8-10.8)
[2019-07-21] MEDS: Pantoprazole Inj IVP SCH ×2 (08:46→22:28)
[2019-07-21] MEDS: Heparin 5000 units/ml inj SUBQ SCH ×2 (08:49→22:33)
[2019-07-21 08:55] LABS: ALANINE AMINOTRANSFERASE 53 U/L (12-78); ALBUMIN 1.7 G/DL (3.4-5.0); ALBUMIN/GLOBULIN RATIO 0.4 (1.0-2.7); ALKALINE PHOSPHATASE 105 U/L (46-116); ANION GAP 9 mmol/L (5-15); ASPARTATE AMINO TRANSFERASE 72 U/L (15-37); BILIRUBIN,TOTAL 0.4 MG/DL (0.2-1.0); BLOOD UREA NITROGEN 26 mg/dL (7-18); CALCIUM 8.9 MG/DL (8.5-10.1); CARBON DIOXIDE 23 MMOL/L (21-32); CHLORIDE 111 MMOL/L (98-107); CREATININE 1.3 MG/DL (0.55-1.30); PHOSPHORUS 3.2 MG/DL (2.5-4.9); POTASSIUM 3.4 MMOL/L (3.5-5.1); SODIUM 143 MMOL/L (136-145)
--- NOTE | 2019-07-21 11:02 | Infectious Diseases Prog Note ---
Assessment/Plan Assessment/Plan Assessment: Severe sepsis Pneumonia Probable UTI -u/a wbc 15-20, nit neg, leuk +3; ucx <10k Proteus sp (R Amp, ancef, macrobid ; otherwise) -07/19 CXR: marked worsening of pleural and parenchymal disease at the right lung base.There is also increasing parenchymal consolidation and atelectasis in the left infrahilar region. -CXR: Perihilar and basilar infiltrates. Findings suspicious for pneumonia. -influenza sc neg -Bcx NTD -sp cx p Hypothermia, SP Leukocytosis, SP Acute respiratory failure, on NRB mask Lactic acidosis, SP RAMAN, improving Dm2 HTN non verbal hypothyroidism CVA hx of UTI anemia dementia [facility] resident Plan: -Continue empiric IV Vancomycin #4 and Meropenem #3 pending cultures -07/19 SP Ertapenem #2 -07/18 SP IV Amikacin x1, Levaquin x1 -f/u cx -Monitor CBC/CMP, temperatures -aspiration precautions -f/u legionella ag urine Thank you for this consultation. Will continue to follow along with you. Discussed with RN Subjective Allergies: Coded Allergies: PENICILLINS (Verified Allergy, Unknown, 10/27/18) tolretas cephalosporins Subjective afebrile no leukocytosis Bcx NTD reamains on VM out of ICU, now at [facility] Objective Vital Signs Last 24 Hour Vital Signs Date Time Temp Pulse Resp B/P (MAP) Pulse Ox O2 Delivery O2 Flow Rate FiO2 07/21/19 05:00 60 17 117/43 (67) 99 07/21/19 04:00 78 07/21/19 04:00 98.0 66 21 110/45 (66) 100 07/21/19 04:00 Venturi Mask 14.0 07/21/19 04:00 14.0 07/21/19 03:00 60 17 141/92 (108) 100 07/21/19 02:00 61 20 117/38 (64) 100 07/21/19 01:00 81 23 176/115 (135) 94 07/21/19 00:00 97.9 78 28 157/72 (100) 100 07/21/19 00:00 14.0 07/21/19 00:00 Venturi Mask 14.0 07/21/19 00:00 78 07/20/19 23:00 61 25 125/60 (81) 100 07/20/19 22:00 66 23 156/95 (115) 100 07/20/19 21:00 68 29 159/63 (95) 100 07/20/19 20:00 98.4 59 24 131/59 (83) 100 07/20/19 20:00 60 07/20/19 20:00 14.0 07/20/19 20:00 Venturi Mask 14.0 07/20/19 19:00 59 25 129/78 (95) 100 07/20/19 18:00 57 22 100/43 (62) 100 07/20/19 17:22 Venturi Mask 14.0 07/20/19 17:00 97.7 61 31 134/61 (85) 100 07/20/19 16:00 Venturi Mask 14.0 07/20/19 16:00 60 07/20/19 16:00 57 20 134/62 (86) 100 07/20/19 16:00 14.0 07/20/19 15:00 58 19 133/70 (91) 100 07/20/19 14:00 64 23 135/53 (80) 100 07/20/19 13:00 69 17 155/70 (98) 100 07/20/19 12:00 98.6 07/20/19 12:00 64 07/20/19 12:00 14.0 07/20/19 12:00 62 19 153/105 (121) 100 07/20/19 12:00 Venturi Mask 14.0 07/20/19 11:00 64 23 118/62 (80) 100 Height (Feet): 6 Height (Inches): 1.00 Weight (Pounds): 150 Objective GENERAL: The patient is a well-developed, well-nourished, thin-appearing male, who is in moderate respiratory distress. HEENT: Eyes, pupils are equal and responsive to light and accommodation. Extraocular movements are intact. NECK: Supple without lymphadenopathy. CHEST: Lungs are clear to auscultation bilaterally without wheezes or rales. CARDIOVASCULAR: Regular rhythm and rate. S1 and S2 are normal without murmurs, rubs, or gallops. ABDOMEN: Soft, nontender, and nondistended. Positive bowel sounds. No evidence of hepatosplenomegaly. Currently, no rebound or guarding noted. EXTREMITIES: Negative for clubbing, cyanosis, or edema. Microbiology Date/Time Source Procedure Growth Status 07/18/19 11:55 Blood Blood Culture - Preliminary NO GROWTH AFTER 48 HOURS Resulted 07/18/19 11:40 Blood Blood Culture - Preliminary NO GROWTH AFTER 48 HOURS Resulted 07/19/19 20:44 Sputum Gram Stain - Final Resulted 07/19/19 20:44 Sputum Sputum Culture Pending Resulted 07/18/19 14:14 Nasal Nares MRSA Culture - Final NO METHICILLIN RESISTANT STAPH AUREUS... Complete 07/18/19 12:19 Nasal Nares - Final Complete 07/18/19 12:19 Nasal Nares - Final Complete 07/19/19 10:45 Urine,Clean Catch Urine Culture - Final NO GROWTH AFTER 48 HOURS Complete 07/18/19 14:40 Urine,Clean Catch Urine Culture - Preliminary Proteus Species Resulted 07/18/19 14:14 Rectum - Final NO CARBAPENEM-RESISTANT ENTEROBACTERI... Complete 07/18/19 14:14 Rectum VRE Culture - Final NO VANCOMYCIN RESISTANT ENTEROCOCCUS ... Complete Laboratory Tests Test 07/21/19 07:45 White Blood Count 8.1 K/UL (4.8-10.8) Red Blood Count 3.19 M/UL (4.70-6.10) L Hemoglobin 8.0 G/DL (14.2-18.0) L Hematocrit 25.0 % (42.0-52.0) L Mean Corpuscular Volume 78 FL (80-99) L Mean Corpuscular Hemoglobin 25.1 PG (27.0-31.0) L Mean Corpuscular Hemoglobin Concent 32.0 G/DL (32.0-36.0) Red Cell Distribution Width 16.0 % (11.6-14.8) H Platelet Count 224 K/UL (150-450) Mean Platelet Volume 6.4 FL (6.5-10.1) L Neutrophils (%) (Auto) 78.4 % (45.0-75.0) H Lymphocytes (%) (Auto) 10.9 % (20.0-45.0) L Monocytes (%) (Auto) 4.4 % (1.0-10.0) Eosinophils (%) (Auto) 5.8 % (0.0-3.0) H Basophils (%) (Auto) 0.4 % (0.0-2.0) Erythrocyte Sedimentation Rate Pending Sodium Level 143 MMOL/L (136-145) Potassium Level 3.4 MMOL/L (3.5-5.1) L Chloride Level 111 MMOL/L (98-107) H Carbon Dioxide Level 23 MMOL/L (21-32) Anion Gap 9 mmol/L (5-15) Blood Urea Nitrogen 26 mg/dL (7-18) H Creatinine 1.3 MG/DL (0.55-1.30) Estimat Glomerular Filtration Rate > 60 mL/min (>60) Glucose Level 92 MG/DL (74-106) Calcium Level 8.9 MG/DL (8.5-10.1) Phosphorus Level 3.2 MG/DL (2.5-4.9) Magnesium Level 1.9 MG/DL (1.8-2.4) Total Bilirubin 0.4 MG/DL (0.2-1.0) Aspartate Amino Transf (AST/SGOT) 72 U/L (15-37) H Alanine Aminotransferase (ALT/SGPT) 53 U/L (12-78) Alkaline Phosphatase 105 U/L (46-116) C-Reactive Protein, Quantitative 35.5 mg/dL (0.00-0.90) H Total Protein 6.5 G/DL (6.4-8.2) Albumin 1.7 G/DL (3.4-5.0) L Globulin 4.8 g/dL Albumin/Globulin Ratio 0.4 (1.0-2.7) L Current Medications Medications (Trade) Dose Ordered Sig/Kike Route PRN Reason Start Time Stop Time Status Last Admin Dose Admin Acetaminophen (Tylenol) 650 mg Q4H PRN ORAL fever 07/21/19 05:30 08/17/19 05:29 Albuterol/ Ipratropium (Albuterol/ Ipratropium) 3 ml Q4H PRN HHN Shortness of Breath 07/21/19 06:15 07/23/19 14:14 Dextrose 1,000 ml @ 75 mls/hr [id number] IV 07/21/19 05:30 08/18/19 17:03 Folic Acid (Folate) 2 mg DAILY ORAL 07/21/19 09:00 08/19/19 11:29 07/21/19 08:47 Heparin Sodium (Porcine) (Heparin 5000 units/ml) 5,000 units EVERY 12 HOURS SUBQ 07/21/19 09:00 08/17/19 20:59 07/21/19 08:49 Levothyroxine Sodium (Synthroid) 50 mcg DAILY@0630 ORAL 07/21/19 06:30 08/18/19 06:29 07/21/19 06:55 Meropenem 1 gm/ Sodium Chloride 55 ml @ 110 mls/hr Q12HR@0100,1300 IVPB 07/21/19 13:00 07/24/19 12:59 Ondansetron HCl (Zofran) 4 mg Q6H PRN IVP Nausea & Vomiting 07/21/19 08:15 08/17/19 14:14 Pantoprazole (Protonix) 40 mg Q12HR IVP 07/21/19 09:00 08/18/19 08:59 07/21/19 08:46 Polyethylene Glycol (Miralax) 17 gm DAILYPRN PRN ORAL Constipation 07/21/19 05:30 08/17/19 05:29 Quetiapine Fumarate (SEROqueL) 25 mg Q8H PRN ORAL agitation 07/21/19 05:30 08/17/19 05:29 Vancomycin HCl (Vanco rx to dose) 1 ea DAILY PRN MISC Per rx protocol 07/21/19 09:00 08/17/19 14:29 Danielle Roach M.D. Jul 21, 2019 11:02
--- NOTE | 2019-07-21 11:25 | Nephrology Progress Note ---
Assessment/Plan Problem List: (1) Acute renal failure (2) Severe anemia (3) Sepsis (4) Diabetes mellitus (5) Hypothyroidism Assessment Alexi Cr lowering 2.6 to 1.8 Sepsis / Pneumonia / UTI / Hypothermia Respiratory failure HypoThyroidism h/o CVA Anemia Dementia Plan Hydrate Phos supplement antibiotics avoid nephrotoxics monitor renal parameters check TFTs- adjust synthroid dose Urine eos per orders Subjective ROS Limited/Unobtainable: No Constitutional: Reports: malaise, weakness Objective Objective Last 24 Hour Vital Signs Date Time Temp Pulse Resp B/P (MAP) Pulse Ox O2 Delivery O2 Flow Rate FiO2 07/21/19 08:00 97.6 67 24 110/65 (80) 97 07/21/19 05:00 60 17 117/43 (67) 99 07/21/19 04:00 78 07/21/19 04:00 98.0 66 21 110/45 (66) 100 07/21/19 04:00 Venturi Mask 14.0 07/21/19 04:00 14.0 07/21/19 03:00 60 17 141/92 (108) 100 07/21/19 02:00 61 20 117/38 (64) 100 07/21/19 01:00 81 23 176/115 (135) 94 07/21/19 00:00 97.9 78 28 157/72 (100) 100 07/21/19 00:00 14.0 07/21/19 00:00 Venturi Mask 14.0 07/21/19 00:00 78 07/20/19 23:00 61 25 125/60 (81) 100 07/20/19 22:00 66 23 156/95 (115) 100 07/20/19 21:00 68 29 159/63 (95) 100 07/20/19 20:00 98.4 59 24 131/59 (83) 100 07/20/19 20:00 60 07/20/19 20:00 14.0 07/20/19 20:00 Venturi Mask 14.0 07/20/19 19:00 59 25 129/78 (95) 100 07/20/19 18:00 57 22 100/43 (62) 100 07/20/19 17:22 Venturi Mask 14.0 07/20/19 17:00 97.7 61 31 134/61 (85) 100 07/20/19 16:00 Venturi Mask 14.0 07/20/19 16:00 60 07/20/19 16:00 57 20 134/62 (86) 100 07/20/19 16:00 14.0 07/20/19 15:00 58 19 133/70 (91) 100 07/20/19 14:00 64 23 135/53 (80) 100 07/20/19 13:00 69 17 155/70 (98) 100 07/20/19 12:00 98.6 07/20/19 12:00 64 07/20/19 12:00 14.0 07/20/19 12:00 62 19 153/105 (121) 100 07/20/19 12:00 Venturi Mask 14.0 Intake and Output 07/20/19 07/21/19 19:00 07:00 Intake Total 955 ml 1347.5 ml Output Total 490 ml 290 ml Balance 465 ml 1057.5 ml Free Water 150 ml IV Total 955 ml 767.5 ml Tube Feeding 430 ml Output Urine Total 490 ml 290 ml Laboratory Tests 07/21/19 07:45: White Blood Count 8.1, Red Blood Count 3.19L, Hemoglobin 8.0L, Hematocrit 25.0L , Mean Corpuscular Volume 78L, Mean Corpuscular Hemoglobin 25.1L, Mean Corpuscular Hemoglobin Concent 32.0, Red Cell Distribution Width 16.0H, Platelet Count 224, Mean Platelet Volume 6.4L, Neutrophils (%) (Auto) 78.4H, Lymphocytes (%) (Auto) 10.9L, Monocytes (%) (Auto) 4.4, Eosinophils (%) (Auto) 5.8H, Basophils (%) (Auto) 0.4, Erythrocyte Sedimentation Rate [Pending], Sodium Level 143, Potassium Level 3.4L, Chloride Level 111H, Carbon Dioxide Level 23, Anion Gap 9, Blood Urea Nitrogen 26H, Creatinine 1.3, Estimat Glomerular Filtration Rate > 60, Glucose Level 92, Calcium Level 8.9, Phosphorus Level 3.2, Magnesium Level 1.9, Total Bilirubin 0.4, Aspartate Amino Transf (AST/SGOT) 72H, Alanine Aminotransferase (ALT/SGPT) 53, Alkaline Phosphatase 105, C-Reactive Protein, Quantitative 35.5H, Total Protein 6.5, Albumin 1.7L, Globulin 4.8, Albumin/Globulin Ratio 0.4L Height (Feet): 6 Height (Inches): 1.00 Weight (Pounds): 150 General Appearance: mild distress EENT: other - NGT Cardiovascular: normal rate Respiratory/Chest: decreased breath sounds Abdomen: distended Clovis Benites MD Jul 21, 2019 11:24
--- NOTE | 2019-07-21 12:22 | Pulmonology Progress Note ---
Assessment/Plan Problems: (1) Nosocomial pneumonia (2) Sepsis (3) Acute renal failure (4) Acute metabolic encephalopathy (5) Severe anemia (6) Alzheimer's dementia (7) History of CVA (cerebrovascular accident) (8) Diabetes mellitus (9) Hypothyroidism Assessment/Plan improving cxr in am respiratory treatment NG tube in, tolerating well sliding scale f/u renal function K supplement Venofer for iron deficiency DVT prophylaxis. Subjective ROS Limited/Unobtainable: Yes Constitutional: Reports: no symptoms HEENT: Repors: no symptoms Respiratory: Reports: no symptoms Allergies: Coded Allergies: PENICILLINS (Verified Allergy, Unknown, 10/27/18) tolretas cephalosporins Objective Last 24 Hour Vital Signs Date Time Temp Pulse Resp B/P (MAP) Pulse Ox O2 Delivery O2 Flow Rate FiO2 07/21/19 08:00 Venturi Mask 14.0 07/21/19 08:00 14.0 07/21/19 08:00 97.6 67 24 110/65 (80) 97 07/21/19 05:00 60 17 117/43 (67) 99 07/21/19 04:00 78 07/21/19 04:00 98.0 66 21 110/45 (66) 100 07/21/19 04:00 Venturi Mask 14.0 07/21/19 04:00 14.0 07/21/19 03:00 60 17 141/92 (108) 100 07/21/19 02:00 61 20 117/38 (64) 100 07/21/19 01:00 81 23 176/115 (135) 94 07/21/19 00:00 97.9 78 28 157/72 (100) 100 07/21/19 00:00 14.0 07/21/19 00:00 Venturi Mask 14.0 07/21/19 00:00 78 07/20/19 23:00 61 25 125/60 (81) 100 07/20/19 22:00 66 23 156/95 (115) 100 07/20/19 21:00 68 29 159/63 (95) 100 07/20/19 20:00 98.4 59 24 131/59 (83) 100 07/20/19 20:00 60 07/20/19 20:00 14.0 07/20/19 20:00 Venturi Mask 14.0 07/20/19 19:00 59 25 129/78 (95) 100 07/20/19 18:00 57 22 100/43 (62) 100 07/20/19 17:22 Venturi Mask 14.0 07/20/19 17:00 97.7 61 31 134/61 (85) 100 07/20/19 16:00 Venturi Mask 14.0 07/20/19 16:00 60 07/20/19 16:00 57 20 134/62 (86) 100 07/20/19 16:00 14.0 07/20/19 15:00 58 19 133/70 (91) 100 07/20/19 14:00 64 23 135/53 (80) 100 07/20/19 13:00 69 17 155/70 (98) 100 Intake and Output 07/20/19 07/21/19 19:00 07:00 Intake Total 955 ml 1347.5 ml Output Total 490 ml 290 ml Balance 465 ml 1057.5 ml Free Water 150 ml IV Total 955 ml 767.5 ml Tube Feeding 430 ml Output Urine Total 490 ml 290 ml General Appearance: cachetic HEENT: normocephalic, anicteric Respiratory/Chest: chest wall non-tender, crackles/rales Cardiovascular: normal peripheral pulses, normal rate Abdomen: normal bowel sounds, soft, non tender Genitourinary: normal external genitalia Extremities: no cyanosis Skin: no rash 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 Complete 07/19/19 10:45 Urine,Clean Catch Urine Culture - Final NO GROWTH AFTER 48 HOURS Complete 07/18/19 14:40 Urine,Clean Catch Urine Culture - Preliminary Proteus Species Resulted 07/18/19 14:14 Rectum - Final NO CARBAPENEM-RESISTANT ENTEROBACTERI... Complete 07/18/19 14:14 Rectum VRE Culture - Final NO VANCOMYCIN RESISTANT ENTEROCOCCUS ... Complete Laboratory Tests 07/21/19 07:45: White Blood Count 8.1, Red Blood Count 3.19L, Hemoglobin 8.0L, Hematocrit 25.0L , Mean Corpuscular Volume 78L, Mean Corpuscular Hemoglobin 25.1L, Mean Corpuscular Hemoglobin Concent 32.0, Red Cell Distribution Width 16.0H, Platelet Count 224, Mean Platelet Volume 6.4L, Neutrophils (%) (Auto) 78.4H, Lymphocytes (%) (Auto) 10.9L, Monocytes (%) (Auto) 4.4, Eosinophils (%) (Auto) 5.8H, Basophils (%) (Auto) 0.4, Erythrocyte Sedimentation Rate 125H, Sodium Level 143, Potassium Level 3.4L, Chloride Level 111H, Carbon Dioxide Level 23, Anion Gap 9, Blood Urea Nitrogen 26H, Creatinine 1.3, Estimat Glomerular Filtration Rate > 60, Glucose Level 92, Calcium Level 8.9, Phosphorus Level 3.2 , Magnesium Level 1.9, Total Bilirubin 0.4, Aspartate Amino Transf (AST/SGOT) 72H, Alanine Aminotransferase (ALT/SGPT) 53, Alkaline Phosphatase 105, C- Reactive Protein, Quantitative 35.5H, Total Protein 6.5, Albumin 1.7L, Globulin 4.8, Albumin/Globulin Ratio 0.4L Current Medications Medications (Trade) Dose Ordered Sig/Kike Route PRN Reason Start Time Stop Time Status Last Admin Dose Admin Acetaminophen (Tylenol) 650 mg Q4H PRN ORAL fever 07/21/19 05:30 08/17/19 05:29 Albuterol/ Ipratropium (Albuterol/ Ipratropium) 3 ml Q4H PRN HHN Shortness of Breath 07/21/19 06:15 07/23/19 14:14 Dextrose 1,000 ml @ 40 mls/hr Q24H IV 07/21/19 12:00 08/20/19 11:59 07/21/19 12:12 Folic Acid (Folate) 2 mg DAILY ORAL 07/21/19 09:00 08/19/19 11:29 07/21/19 08:47 Heparin Sodium (Porcine) (Heparin 5000 units/ml) 5,000 units EVERY 12 HOURS SUBQ 07/21/19 09:00 08/17/19 20:59 07/21/19 08:49 Levothyroxine Sodium (Synthroid) 50 mcg DAILY@0630 ORAL 07/21/19 06:30 08/18/19 06:29 07/21/19 06:55 Meropenem 1 gm/ Sodium Chloride 55 ml @ 110 mls/hr Q12HR@0100,1300 IVPB 07/21/19 13:00 07/24/19 12:59 Ondansetron HCl (Zofran) 4 mg Q6H PRN IVP Nausea & Vomiting 07/21/19 08:15 08/17/19 14:14 Pantoprazole (Protonix) 40 mg Q12HR IVP 07/21/19 09:00 08/18/19 08:59 07/21/19 08:46 Polyethylene Glycol (Miralax) 17 gm DAILYPRN PRN ORAL Constipation 07/21/19 05:30 08/17/19 05:29 Potassium Chloride 100 ml @ 100 mls/hr Q1HR IVPB 07/21/19 12:00 07/21/19 13:59 07/21/19 12:13 Quetiapine Fumarate (SEROqueL) 25 mg Q8H PRN ORAL agitation 07/21/19 05:30 08/17/19 05:29 Vancomycin HCl (Vanco rx to dose) 1 ea DAILY PRN MISC Per rx protocol 07/21/19 09:00 08/17/19 14:29 Vania Hui MD Jul 21, 2019 12:22
--- NOTE | 2019-07-21 13:31 | NUR ---
CASE MANAGEMENT: REVIEW 07/21/2019 SI:Nosocomial pneumonia. T 97.6 HR 67 RR 24 B/P 100/65 SATS 97% ON 14L/VENTURI MASK LABS: HGB 8 HCT 25 K 3.4 CL 111 BUN 26 AST 72 CRP 35.5 IS:DEXTROSE IV @ 40 mL/HR VENOFER IV QHS MEROPENEM IV Q12H SDU PLAN OF CARE: CXR [facility]
--- NOTE | 2019-07-21 13:37 | NUR ---
[employer] FAXED TO f- [phone]...REVIEW/CLINICAL
[2019-07-21] MEDS ORDERED: Iron Sucrose 200 MG in NS 110 ML IV ONE (14:00)
--- NOTE | 2019-07-21 19:18 | Internal Med Progress Note ---
Subjective Date of Service: Jul 21, 2019 Physician Name Xander Bah Attending Physician Lamont Hayes MD Current Medications Medications (Trade) Dose Ordered Sig/Kike Route PRN Reason Start Time Stop Time Status Last Admin Dose Admin Acetaminophen (Tylenol) 650 mg Q4H PRN ORAL fever 07/21/19 05:30 08/17/19 05:29 Albuterol/ Ipratropium (Albuterol/ Ipratropium) 3 ml Q4H PRN HHN Shortness of Breath 07/21/19 06:15 07/23/19 14:14 Dextrose 1,000 ml @ 40 mls/hr Q24H IV 07/21/19 12:00 08/20/19 11:59 07/21/19 12:12 Folic Acid (Folate) 2 mg DAILY ORAL 07/21/19 09:00 08/19/19 11:29 07/21/19 08:47 Heparin Sodium (Porcine) (Heparin 5000 units/ml) 5,000 units EVERY 12 HOURS SUBQ 07/21/19 09:00 08/17/19 20:59 07/21/19 08:49 Levothyroxine Sodium (Synthroid) 50 mcg DAILY@0630 ORAL 07/21/19 06:30 08/18/19 06:29 07/21/19 06:55 Meropenem 1 gm/ Sodium Chloride 55 ml @ 110 mls/hr Q12HR@0100,1300 IVPB 07/21/19 13:00 07/24/19 12:59 07/21/19 13:18 Ondansetron HCl (Zofran) 4 mg Q6H PRN IVP Nausea & Vomiting 07/21/19 08:15 08/17/19 14:14 Pantoprazole (Protonix) 40 mg Q12HR IVP 07/21/19 09:00 08/18/19 08:59 07/21/19 08:46 Polyethylene Glycol (Miralax) 17 gm DAILYPRN PRN ORAL Constipation 07/21/19 05:30 08/17/19 05:29 Quetiapine Fumarate (SEROqueL) 25 mg Q8H PRN ORAL agitation 07/21/19 05:30 08/17/19 05:29 Vancomycin HCl (Vanco rx to dose) 1 ea DAILY PRN MISC Per rx protocol 07/21/19 09:00 08/17/19 14:29 Allergies: Coded Allergies: PENICILLINS (Verified Allergy, Unknown, 10/27/18) tolretas cephalosporins ROS Limited/Unobtainable: Yes Subjective 84 YO M admitted with altered mental status. Now pneumonia and severe sepsis. Cover for Int Med-Dr Hayes. [facility] Objective Last Vital Signs Date Time Temp Pulse Resp B/P (MAP) Pulse Ox O2 Delivery O2 Flow Rate FiO2 07/21/19 19:00 97 Venturi Mask 10.0 45 07/21/19 16:00 98.8 71 20 126/72 (90) Laboratory Tests Test 07/21/19 07:45 White Blood Count 8.1 K/UL (4.8-10.8) Red Blood Count 3.19 M/UL (4.70-6.10) L Hemoglobin 8.0 G/DL (14.2-18.0) L Hematocrit 25.0 % (42.0-52.0) L Mean Corpuscular Volume 78 FL (80-99) L Mean Corpuscular Hemoglobin 25.1 PG (27.0-31.0) L Mean Corpuscular Hemoglobin Concent 32.0 G/DL (32.0-36.0) Red Cell Distribution Width 16.0 % (11.6-14.8) H Platelet Count 224 K/UL (150-450) Mean Platelet Volume 6.4 FL (6.5-10.1) L Neutrophils (%) (Auto) 78.4 % (45.0-75.0) H Lymphocytes (%) (Auto) 10.9 % (20.0-45.0) L Monocytes (%) (Auto) 4.4 % (1.0-10.0) Eosinophils (%) (Auto) 5.8 % (0.0-3.0) H Basophils (%) (Auto) 0.4 % (0.0-2.0) Erythrocyte Sedimentation Rate 125 MM/HR (0-20) H Sodium Level 143 MMOL/L (136-145) Potassium Level 3.4 MMOL/L (3.5-5.1) L Chloride Level 111 MMOL/L (98-107) H Carbon Dioxide Level 23 MMOL/L (21-32) Anion Gap 9 mmol/L (5-15) Blood Urea Nitrogen 26 mg/dL (7-18) H Creatinine 1.3 MG/DL (0.55-1.30) Estimat Glomerular Filtration Rate > 60 mL/min (>60) Glucose Level 92 MG/DL (74-106) Calcium Level 8.9 MG/DL (8.5-10.1) Phosphorus Level 3.2 MG/DL (2.5-4.9) Magnesium Level 1.9 MG/DL (1.8-2.4) Total Bilirubin 0.4 MG/DL (0.2-1.0) Aspartate Amino Transf (AST/SGOT) 72 U/L (15-37) H Alanine Aminotransferase (ALT/SGPT) 53 U/L (12-78) Alkaline Phosphatase 105 U/L (46-116) C-Reactive Protein, Quantitative 35.5 mg/dL (0.00-0.90) H Total Protein 6.5 G/DL (6.4-8.2) Albumin 1.7 G/DL (3.4-5.0) L Globulin 4.8 g/dL Albumin/Globulin Ratio 0.4 (1.0-2.7) L Microbiology Date/Time Source Procedure Growth Status 07/19/19 20:44 Sputum Gram Stain - Final Resulted 07/19/19 20:44 Sputum Sputum Culture Pending Resulted 07/19/19 10:45 Urine,Clean Catch Urine Culture - Final NO GROWTH AFTER 48 HOURS Complete Intake and Output 07/20/19 07/21/19 19:00 07:00 Intake Total 955 ml 1422.5 ml Output Total 490 ml 290 ml Balance 465 ml 1132.5 ml Free Water 150 ml IV Total 955 ml 842.5 ml Tube Feeding 430 ml Output Urine Total 490 ml 290 ml Objective PHYSICAL EXAMINATION: GENERAL: The patient is a well-developed, well-nourished, thin-appearing male, who is in moderate respiratory distress. HEENT: Eyes, pupils are equal and responsive to light and accommodation. Extraocular movements are intact. NECK: Supple without lymphadenopathy. CHEST: Venturi mask; Lungs with bilateral wheezes and rhonchi; breath sounds decreased at bases CARDIOVASCULAR: Regular rhythm and rate. S1 and S2 are normal without murmurs, rubs, or gallops. ABDOMEN: Soft, nontender, and nondistended. Positive bowel sounds. No evidence of hepatosplenomegaly. Currently, no rebound or guarding noted. EXTREMITIES: Negative for clubbing, cyanosis, or edema. RECTAL/GENITAL: Not performed. NEUROLOGIC: Cranial nerves II through XII are grossly intact without focal deficits. Motor strength is 5/5 bilaterally. Deep tendon reflexes are 2+ plantar. Assessment/Plan Assessment/Plan ASSESSMENT: This is an 84-year-old male. 1. Bilateral pneumonia. 2. Respiratory failure. 3. Probable sepsis. 4. Altered mental status. 5. Diabetes type 2. 6. Hypothyroidism. 7. Cerebrovascular disease. 8. Acute renal failure. 9. Leukocytosis 10. Hypernatremia TREATMENT: 1. Respiratory failure/bilateral pneumonia. A Pulmonary consultation has been obtained with Dr. Vania Hui. The patient is currently admitted to the intensive care unit. The patient is currently on a venturi mask. The patient has been started empirically on vancomycin and ertapenem. A sputum culture is pending. Await sputum culture results. 2. Altered mental status. This is probably secondary to hypoxia secondary to pneumonia as above. 3. Diabetes type 2. The patient was admitted without antihyperglycemic medication. 4. Hypothyroidism. Continue Levoxyl as above. 5. Cerebrovascular disease. The patient is status post cerebrovascular accident. 6. Acute renal failure. This may be secondary to acute dehydration. The patient is currently receiving intravenous fluids. 7. Severe Sepsis. ABX=meropenem. ID=Xander Gill MD Jul 21, 2019 19:18
--- NOTE | 2019-07-21 19:20 | NUR ---
HAND-OFF: Report given to KAI Morales. Patient in stable condition.
--- NOTE | 2019-07-21 19:20 | NUR ---
NURSE NOTES: Received patient from KAI Wilson. Pt. asleep but easily awakened. OX1. Calm and cooperative. SR on bellman. On VM at 55%. IV site is Right Forearm 20g, receiving D5W at 75cc/hr. Left AC #20g patent and asymptomatic. Condom catheter intact and draining well of hazy cammy urine. In no apparent distress. Bed in lowest position w/side rails up x3. bed alarm and lock engaged. HOB elevated. Will continue POC.
--- NOTE | 2019-07-21 20:39 | Cardiology Progress Note ---
Assessment/Plan Assessment/Plan 1. Toxic metabolic encephalopathy. 2. Pneumonia. 3. Respiratory insufficiency. 4. Dementia. 5. Hypernatremia. 6. History of CVA. 7. History of hypertension. 8. History of diabetes mellitus. 9. History of hypothyroidism. doign better is more awake adn communicative neice at bedside tele reviewed at time difficult to see sinus activity ? afib? abx watch on tele will check ekg Subjective Cardiovascular: Denies: chest pain, lightheadedness, palpitations Respiratory: Denies: shortness of breath Gastrointestinal/Abdominal: Denies: abdominal pain Genitourinary: Denies: burning Objective Last 24 Hour Vital Signs Date Time Temp Pulse Resp B/P (MAP) Pulse Ox O2 Delivery O2 Flow Rate FiO2 07/21/19 19:00 97 Venturi Mask 10.0 45 07/21/19 16:00 98.8 71 20 126/72 (90) 98 07/21/19 16:00 63 07/21/19 16:00 Venturi Mask 14.0 07/21/19 16:00 14.0 07/21/19 12:54 100 Venturi Mask 10.0 45 07/21/19 12:00 97.8 89 20 119/69 (86) 95 07/21/19 12:00 Venturi Mask 14.0 07/21/19 12:00 14.0 07/21/19 12:00 69 07/21/19 08:00 Venturi Mask 14.0 07/21/19 08:00 14.0 07/21/19 08:00 97.6 67 24 110/65 (80) 97 07/21/19 05:00 60 17 117/43 (67) 99 07/21/19 04:00 78 07/21/19 04:00 98.0 66 21 110/45 (66) 100 07/21/19 04:00 Venturi Mask 14.0 07/21/19 04:00 14.0 07/21/19 03:00 60 17 141/92 (108) 100 07/21/19 02:00 61 20 117/38 (64) 100 07/21/19 01:00 81 23 176/115 (135) 94 07/21/19 00:00 97.9 78 28 157/72 (100) 100 07/21/19 00:00 14.0 07/21/19 00:00 Venturi Mask 14.0 07/21/19 00:00 78 07/20/19 23:00 61 25 125/60 (81) 100 07/20/19 22:00 66 23 156/95 (115) 100 07/20/19 21:00 68 29 159/63 (95) 100 General Appearance: no apparent distress, alert, patient on isolation Cardiovascular: normal rate Respiratory/Chest: lungs clear, rhonchi - bilaterally - min Abdomen: normal bowel sounds, non tender, soft Extremities: no swelling Intake and Output 07/20/19 07/21/19 19:00 07:00 Intake Total 955 ml 1422.5 ml Output Total 490 ml 290 ml Balance 465 ml 1132.5 ml Free Water 150 ml IV Total 955 ml 842.5 ml Tube Feeding 430 ml Output Urine Total 490 ml 290 ml Laboratory Tests Test 07/21/19 07:45 White Blood Count 8.1 K/UL (4.8-10.8) Red Blood Count 3.19 M/UL (4.70-6.10) L Hemoglobin 8.0 G/DL (14.2-18.0) L Hematocrit 25.0 % (42.0-52.0) L Mean Corpuscular Volume 78 FL (80-99) L Mean Corpuscular Hemoglobin 25.1 PG (27.0-31.0) L Mean Corpuscular Hemoglobin Concent 32.0 G/DL (32.0-36.0) Red Cell Distribution Width 16.0 % (11.6-14.8) H Platelet Count 224 K/UL (150-450) Mean Platelet Volume 6.4 FL (6.5-10.1) L Neutrophils (%) (Auto) 78.4 % (45.0-75.0) H Lymphocytes (%) (Auto) 10.9 % (20.0-45.0) L Monocytes (%) (Auto) 4.4 % (1.0-10.0) Eosinophils (%) (Auto) 5.8 % (0.0-3.0) H Basophils (%) (Auto) 0.4 % (0.0-2.0) Erythrocyte Sedimentation Rate 125 MM/HR (0-20) H Sodium Level 143 MMOL/L (136-145) Potassium Level 3.4 MMOL/L (3.5-5.1) L Chloride Level 111 MMOL/L (98-107) H Carbon Dioxide Level 23 MMOL/L (21-32) Anion Gap 9 mmol/L (5-15) Blood Urea Nitrogen 26 mg/dL (7-18) H Creatinine 1.3 MG/DL (0.55-1.30) Estimat Glomerular Filtration Rate > 60 mL/min (>60) Glucose Level 92 MG/DL (74-106) Calcium Level 8.9 MG/DL (8.5-10.1) Phosphorus Level 3.2 MG/DL (2.5-4.9) Magnesium Level 1.9 MG/DL (1.8-2.4) Total Bilirubin 0.4 MG/DL (0.2-1.0) Aspartate Amino Transf (AST/SGOT) 72 U/L (15-37) H Alanine Aminotransferase (ALT/SGPT) 53 U/L (12-78) Alkaline Phosphatase 105 U/L (46-116) C-Reactive Protein, Quantitative 35.5 mg/dL (0.00-0.90) H Total Protein 6.5 G/DL (6.4-8.2) Albumin 1.7 G/DL (3.4-5.0) L Globulin 4.8 g/dL Albumin/Globulin Ratio 0.4 (1.0-2.7) L Microbiology Date/Time Source Procedure Growth Status 07/19/19 20:44 Sputum Gram Stain - Final Resulted 07/19/19 20:44 Sputum Sputum Culture Pending Resulted 07/19/19 10:45 Urine,Clean Catch Urine Culture - Final NO GROWTH AFTER 48 HOURS Complete Juarez Fletcher MD Jul 21, 2019 20:39
[2019-07-22] VITALS: BP 143/79
--- NOTE | 2019-07-22 02:00 | NUR ---
NURSE NOTES: Condition unchanged. Pt. remain asleep but easily awakened. OX1. SR on hall monitor. On VM at 55%. IV site is left hand #20g, receiving D5W at 75cc/hr. Condom catheter intact and draining well of clear yellow urine. In no apparent distress. Denies pain or discomfort. Bed in lowest position w/side rails up x3. Bed alarm and lock engaged. HOB elevated. Will continue POC.
[2019-07-22] MEDS: Meropenem 1 GM in NS 55 ML IVPB SCH ×2 (02:35→12:59)
[2019-07-22 04:00] VITALS: BP 134/74
[2019-07-22 05:46] LABS: BASOPHILS % (AUTO) 0.3 % (0.0-2.0); EOSINOPHILS % (AUTO) 4.3 % (0.0-3.0); HEMATOCRIT 26.5 % (42.0-52.0); HEMOGLOBIN 8.6 G/DL (14.2-18.0); LYMPHOCYTES % (AUTO) 11.4 % (20.0-45.0); MEAN CORPUSCULAR VOLUME 77 FL (80-99); MONOCYTES % (AUTO) 5.1 % (1.0-10.0); PLATELET COUNT 262 K/UL (150-450); RED BLOOD COUNT 3.43 M/UL (4.70-6.10); RED CELL DISTRIBUTION WIDTH 15.5 % (11.6-14.8)
[2019-07-22 05:55] LABS: PHOSPHORUS 3.1 MG/DL (2.5-4.9)
[2019-07-22 06:43] LABS: ALANINE AMINOTRANSFERASE 49 U/L (12-78); ALBUMIN 1.8 G/DL (3.4-5.0); ALBUMIN/GLOBULIN RATIO 0.4 (1.0-2.7); ALKALINE PHOSPHATASE 133 U/L (46-116); ANION GAP 11 mmol/L (5-15); ASPARTATE AMINO TRANSFERASE 55 U/L (15-37); BILIRUBIN,TOTAL 0.3 MG/DL (0.2-1.0); BLOOD UREA NITROGEN 26 mg/dL (7-18); CALCIUM 8.7 MG/DL (8.5-10.1); CARBON DIOXIDE 22 MMOL/L (21-32); CHLORIDE 109 MMOL/L (98-107); CREATININE 1.3 MG/DL (0.55-1.30); POTASSIUM 3.9 MMOL/L (3.5-5.1); SODIUM 142 MMOL/L (136-145)
--- NOTE | 2019-07-22 07:25 | NUR ---
NURSE NOTES: Received patient from KAI Morales. Patient is aox1-2. Patient is sleeping in bed. Patient is on Venturi mask at 14L and tolerating well. Patient is showing A-fib on the monitor. Patient has NG tube in the left nare. Waiting for confirmation of placement. Patient has a condom cath and draining cammy color urine. Patient has a L hand 20g running d5w at 40ml/hr and properly running. Bed is in lowest position, alarmed and locked. Side rails x3, and call light is within reach. Will continue to monitor
--- NOTE | 2019-07-22 07:25 | NUR ---
HAND-OFF: Report given to Jose Santos RN.
[2019-07-22 08:00] VITALS: BP 145/60
[2019-07-22] MEDS: Pantoprazole Inj IVP SCH ×2 (08:57→21:21)
[2019-07-22] MEDS: Heparin 5000 units/ml inj SUBQ SCH ×2 (08:59→21:22)
--- NOTE | 2019-07-22 09:42 | Pulmonology Progress Note ---
Assessment/Plan Problems: (1) Nosocomial pneumonia (2) Sepsis (3) Acute renal failure (4) Acute metabolic encephalopathy (5) Severe anemia (6) Alzheimer's dementia (7) History of CVA (cerebrovascular accident) (8) Diabetes mellitus (9) Hypothyroidism Assessment/Plan no new complains more awake to do the swallow study improving cxr showing the same consolidation respiratory treatment NG tube in, tolerating well sliding scale f/u renal function K supplement Venofer for iron deficiency DVT prophylaxis. Subjective ROS Limited/Unobtainable: Yes Interval Events: more awake, looks comfortable Allergies: Coded Allergies: PENICILLINS (Verified Allergy, Unknown, 10/27/18) tolretas cephalosporins Objective Last 24 Hour Vital Signs Date Time Temp Pulse Resp B/P (MAP) Pulse Ox O2 Delivery O2 Flow Rate FiO2 07/22/19 04:00 71 07/22/19 04:00 98.1 76 22 134/74 (94) 100 07/22/19 04:00 Venturi Mask 14.0 07/22/19 04:00 14.0 07/22/19 00:00 14.0 07/22/19 00:00 70 07/22/19 00:00 98.3 80 22 143/79 (100) 98 07/22/19 00:00 Venturi Mask 14.0 07/21/19 20:00 Venturi Mask 14.0 07/21/19 20:00 99.1 60 18 118/56 (76) 98 07/21/19 20:00 14.0 07/21/19 20:00 71 07/21/19 19:00 97 Venturi Mask 10.0 45 07/21/19 16:00 98.8 71 20 126/72 (90) 98 07/21/19 16:00 63 07/21/19 16:00 Venturi Mask 14.0 07/21/19 16:00 14.0 07/21/19 12:54 100 Venturi Mask 10.0 45 07/21/19 12:00 97.8 89 20 119/69 (86) 95 07/21/19 12:00 Venturi Mask 14.0 07/21/19 12:00 14.0 07/21/19 12:00 69 Intake and Output 07/21/19 07/22/19 19:00 07:00 Intake Total 1659.5 ml 1245 ml Output Total 445 ml 650 ml Balance 1214.5 ml 595 ml Free Water 130 ml 100 ml IV Total 929.5 ml 475 ml Tube Feeding 600 ml 670 ml Output Urine Total 445 ml 650 ml General Appearance: cachetic HEENT: normocephalic, atraumatic Respiratory/Chest: chest wall non-tender, crackles/rales Cardiovascular: normal peripheral pulses, normal rate Abdomen: normal bowel sounds, soft, non tender Genitourinary: normal external genitalia Extremities: no cyanosis Skin: no rash Neurologic/Psychiatric: 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 health 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 II-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 grossly normal Microbiology Date/Time Source Procedure Growth Status 07/19/19 20:44 Sputum Gram Stain - Final Resulted 07/19/19 20:44 Sputum Culture - Preliminary Staphylococcus Species Abi Albicans Resulted 07/19/19 10:45 Urine,Clean Catch Urine Culture - Final NO GROWTH AFTER 48 HOURS Complete Laboratory Tests 07/22/19 03:30: White Blood Count 7.0, Red Blood Count 3.43L, Hemoglobin 8.6L, Hematocrit 26.5L , Mean Corpuscular Volume 77L, Mean Corpuscular Hemoglobin 25.0L, Mean Corpuscular Hemoglobin Concent 32.3, Red Cell Distribution Width 15.5H, Platelet Count 262, Mean Platelet Volume 6.2L, Neutrophils (%) (Auto) 79.0H, Lymphocytes (%) (Auto) 11.4L, Monocytes (%) (Auto) 5.1, Eosinophils (%) (Auto) 4.3H, Basophils (%) (Auto) 0.3, Sodium Level 142, Potassium Level 3.9, Chloride Level 109H, Carbon Dioxide Level 22, Anion Gap 11, Blood Urea Nitrogen 26H, Creatinine 1.3, Estimat Glomerular Filtration Rate > 60, Glucose Level 105, Calcium Level 8.7, Phosphorus Level 3.1, Magnesium Level 2.0, Total Bilirubin 0.3, Aspartate Amino Transf (AST/SGOT) 55H, Alanine Aminotransferase (ALT/SGPT) 49, Alkaline Phosphatase 133H, Total Protein 6.8, Albumin 1.8L, Globulin 5.0, Albumin/Globulin Ratio 0.4L, Random Vancomycin Level [Pending] Current Medications Medications (Trade) Dose Ordered Sig/Kike Route PRN Reason Start Time Stop Time Status Last Admin Dose Admin Acetaminophen (Tylenol) 650 mg Q4H PRN ORAL fever 07/21/19 05:30 3/11/20 05:29 Albuterol/ Ipratropium (Albuterol/ Ipratropium) 3 ml Q4H PRN HHN Shortness of Breath 07/21/19 06:15 07/23/19 14:14 Dextrose 1,000 ml @ 40 mls/hr Q24H IV 07/21/19 12:00 08/20/19 11:59 07/21/19 12:12 Folic Acid (Folate) 2 mg DAILY ORAL 07/21/19 09:00 08/19/19 11:29 07/21/19 08:47 Heparin Sodium (Porcine) (Heparin 5000 units/ml) 5,000 units EVERY 12 HOURS SUBQ 07/21/19 09:00 08/17/19 20:59 07/22/19 08:59 Levothyroxine Sodium (Synthroid) 50 mcg DAILY@0630 ORAL 07/21/19 06:30 08/18/19 06:29 07/22/19 06:11 Meropenem 1 gm/ Sodium Chloride 55 ml @ 110 mls/hr Q12HR@0100,1300 IVPB 07/21/19 13:00 07/24/19 12:59 07/22/19 02:35 Ondansetron HCl (Zofran) 4 mg Q6H PRN IVP Nausea & Vomiting 07/21/19 08:15 08/17/19 14:14 Pantoprazole (Protonix) 40 mg Q12HR IVP 07/21/19 09:00 08/18/19 08:59 07/22/19 08:57 Polyethylene Glycol (Miralax) 17 gm DAILYPRN PRN ORAL Constipation 07/21/19 05:30 08/17/19 05:29 Quetiapine Fumarate (SEROqueL) 25 mg Q8H PRN ORAL agitation 07/21/19 05:30 08/17/19 05:29 07/21/19 22:29 Vancomycin HCl (Vanco rx to dose) 1 ea DAILY PRN MISC Per rx protocol 07/21/19 09:00 08/17/19 14:29 Vania Hui MD Jul 22, 2019 09:42
--- NOTE | 2019-07-22 10:37 | Diagnostic Imaging Report ---
Indication: NG tube placement Comparison: 07/20/2019 Single view of the abdomen obtained Findings: Nasogastric tube is in good position. Both the proximal and distal ports are well within the stomach lumen. Bowel gas pattern appears nonobstructive. IMPRESSION: NG tube in good position
--- NOTE | 2019-07-22 10:52 | NUR ---
RD ASSESSMENT & RECOMMENDATIONS SEE CARE ACTIVITY FOR COMPLETE ASSESSMENT DAILY ESTIMATED NEEDS: Needs based on Sepsis, DM, pulmonary/ 67.7kg 25-30 kcals/kg 7026-3964 total kcals 1-2 g protein/kg 68-135 g total protein 20-30ml/kcal mL/kg 0860-6184 total fluid mLs NUTRITION DIAGNOSIS: * Swallowing difficulty R/T dysphagia w/ h/o CVA, decreased cognitive fxn as evidenced by PAYROLL LEAD recommends nonoral feeds at this time, w/ NGT in place, TF ordered. CURRENT TF:Glucerna 1.2 @65ml/hr x22 hrs PO DIET RECOMMENDATIONS: IF ORAL DIET INDICATED-> CCHO MED, LOW NA/ texture per PAYROLL LEAD ENTERAL NUTRITION RECOMMENDATIONS: Glucerna 1.2 @65ml/hr x22 hrs to provide 1430ml, 1716 kcal, 86g prot, 1151ml free H2O - Resume TF once NGT placement is confirmed - Start Glucerna 1.2 @ 35ml/hr for 6 hrs, advance as tolerated 10ml/hr q4-6 hrs to goal. - HOLD TF one hour before and after synthroid meds. - Flush per MD. HOB over 30 degrees Monitor PAYROLL LEAD rec for possible oral diet, need to adjust TF ADDITIONAL RECOMMENDATIONS: * Calibrated bedscale wt for accurate CBW * Monitor PAYROLL LEAD recommendation regarding oral diet, need to adjust TF * NISS w/ TF: A1C of 6.5 * Monitor lytes, replete as needed . .
--- NOTE | 2019-07-22 11:03 | NUR ---
RADIOLOGY DEPT, CHEST AND ABDOMEN X-RAYS PERFORMED.-P.DYE
[2019-07-22 12:00] VITALS: BP 132/64
--- NOTE | 2019-07-22 12:26 | Nephrology Progress Note ---
Assessment/Plan Problem List: (1) Acute renal failure (2) Severe anemia (3) Sepsis (4) Diabetes mellitus (5) Hypothyroidism Assessment Alexi Cr lowering 2.6 to 1.8 Sepsis / Pneumonia / UTI / Hypothermia Respiratory failure HypoThyroidism h/o CVA Anemia Dementia Plan Hydrate Phos supplement as needed antibiotics avoid nephrotoxics monitor renal parameters check TFTs- adjust synthroid dose Urine eos per orders Subjective Constitutional: Reports: malaise, weakness Objective Objective Last 24 Hour Vital Signs Date Time Temp Pulse Resp B/P (MAP) Pulse Ox O2 Delivery O2 Flow Rate FiO2 07/22/19 08:00 67 07/22/19 08:00 14.0 07/22/19 08:00 Venturi Mask 14.0 07/22/19 08:00 97.7 97 22 145/60 (88) 97 07/22/19 04:00 71 07/22/19 04:00 98.1 76 22 134/74 (94) 100 07/22/19 04:00 Venturi Mask 14.0 07/22/19 04:00 14.0 07/22/19 00:00 14.0 07/22/19 00:00 70 07/22/19 00:00 98.3 80 22 143/79 (100) 98 07/22/19 00:00 Venturi Mask 14.0 07/21/19 20:00 Venturi Mask 14.0 07/21/19 20:00 99.1 60 18 118/56 (76) 98 07/21/19 20:00 14.0 07/21/19 20:00 71 07/21/19 19:00 97 Venturi Mask 10.0 45 07/21/19 16:00 98.8 71 20 126/72 (90) 98 07/21/19 16:00 63 07/21/19 16:00 Venturi Mask 14.0 07/21/19 16:00 14.0 07/21/19 12:54 100 Venturi Mask 10.0 45 Intake and Output 07/21/19 07/22/19 19:00 07:00 Intake Total 1659.5 ml 1245 ml Output Total 445 ml 650 ml Balance 1214.5 ml 595 ml Free Water 130 ml 100 ml IV Total 929.5 ml 475 ml Tube Feeding 600 ml 670 ml Output Urine Total 445 ml 650 ml Laboratory Tests 07/22/19 03:30: White Blood Count 7.0, Red Blood Count 3.43L, Hemoglobin 8.6L, Hematocrit 26.5L , Mean Corpuscular Volume 77L, Mean Corpuscular Hemoglobin 25.0L, Mean Corpuscular Hemoglobin Concent 32.3, Red Cell Distribution Width 15.5H, Platelet Count 262, Mean Platelet Volume 6.2L, Neutrophils (%) (Auto) 79.0H, Lymphocytes (%) (Auto) 11.4L, Monocytes (%) (Auto) 5.1, Eosinophils (%) (Auto) 4.3H, Basophils (%) (Auto) 0.3, Sodium Level 142, Potassium Level 3.9, Chloride Level 109H, Carbon Dioxide Level 22, Anion Gap 11, Blood Urea Nitrogen 26H, Creatinine 1.3, Estimat Glomerular Filtration Rate > 60, Glucose Level 105, Calcium Level 8.7, Phosphorus Level 3.1, Magnesium Level 2.0, Total Bilirubin 0.3, Aspartate Amino Transf (AST/SGOT) 55H, Alanine Aminotransferase (ALT/SGPT) 49, Alkaline Phosphatase 133H, Total Protein 6.8, Albumin 1.8L, Globulin 5.0, Albumin/Globulin Ratio 0.4L, Random Vancomycin Level 11.1 Height (Feet): 6 Height (Inches): 1.00 Weight (Pounds): 151 General Appearance: no apparent distress, lethargic Cardiovascular: tachycardia Respiratory/Chest: decreased breath sounds Abdomen: soft Clovis Benites MD Jul 22, 2019 12:26
--- NOTE | 2019-07-22 13:08 | Diagnostic Imaging Report ---
Indication: Dyspnea Comparison: 07/20/2019 A single view chest radiograph was obtained. Findings: Evidence of worsening interstitial and alveolar congestion with densities throughout both lung helms appearing worse. Heart is enlarged. NG tube is in good position. Small bilateral pleural effusions are suspected. IMPRESSION: Worsening CHF
--- NOTE | 2019-07-22 13:28 | Cardiology Progress Note ---
Assessment/Plan Assessment/Plan 1. Toxic metabolic encephalopathy. 2. Pneumonia. 3. Respiratory insufficiency. 4. Dementia. 5. Hypernatremia. 6. History of CVA. 7. History of hypertension. 8. History of diabetes mellitus. 9. History of hypothyroidism. doign better is awake and responsive and some communicative tele reviewed at time difficult to see sinus activity afib? /otherwise sinus is noted abx watch on tele will check ekg Subjective Cardiovascular: Denies: chest pain, palpitations Respiratory: Denies: cough, shortness of breath Gastrointestinal/Abdominal: Reports: abdominal pain Genitourinary: Denies: burning Objective Last 24 Hour Vital Signs Date Time Temp Pulse Resp B/P (MAP) Pulse Ox O2 Delivery O2 Flow Rate FiO2 07/22/19 08:00 67 07/22/19 08:00 14.0 07/22/19 08:00 Venturi Mask 14.0 07/22/19 08:00 97.7 97 22 145/60 (88) 97 07/22/19 04:00 71 07/22/19 04:00 98.1 76 22 134/74 (94) 100 07/22/19 04:00 Venturi Mask 14.0 07/22/19 04:00 14.0 07/22/19 00:00 14.0 07/22/19 00:00 70 07/22/19 00:00 98.3 80 22 143/79 (100) 98 07/22/19 00:00 Venturi Mask 14.0 07/21/19 20:00 Venturi Mask 14.0 07/21/19 20:00 99.1 60 18 118/56 (76) 98 07/21/19 20:00 14.0 07/21/19 20:00 71 07/21/19 19:00 97 Venturi Mask 10.0 45 07/21/19 16:00 98.8 71 20 126/72 (90) 98 07/21/19 16:00 63 07/21/19 16:00 Venturi Mask 14.0 07/21/19 16:00 14.0 General Appearance: no apparent distress, alert Neck: supple Cardiovascular: normal rate Respiratory/Chest: rhonchi - bilaterally Abdomen: normal bowel sounds, non tender, soft Extremities: no swelling Intake and Output 07/21/19 07/22/19 19:00 07:00 Intake Total 1659.5 ml 1245 ml Output Total 445 ml 650 ml Balance 1214.5 ml 595 ml Free Water 130 ml 100 ml IV Total 929.5 ml 475 ml Tube Feeding 600 ml 670 ml Output Urine Total 445 ml 650 ml Laboratory Tests Test 07/22/19 03:30 White Blood Count 7.0 K/UL (4.8-10.8) Red Blood Count 3.43 M/UL (4.70-6.10) L Hemoglobin 8.6 G/DL (14.2-18.0) L Hematocrit 26.5 % (42.0-52.0) L Mean Corpuscular Volume 77 FL (80-99) L Mean Corpuscular Hemoglobin 25.0 PG (27.0-31.0) L Mean Corpuscular Hemoglobin Concent 32.3 G/DL (32.0-36.0) Red Cell Distribution Width 15.5 % (11.6-14.8) H Platelet Count 262 K/UL (150-450) Mean Platelet Volume 6.2 FL (6.5-10.1) L Neutrophils (%) (Auto) 79.0 % (45.0-75.0) H Lymphocytes (%) (Auto) 11.4 % (20.0-45.0) L Monocytes (%) (Auto) 5.1 % (1.0-10.0) Eosinophils (%) (Auto) 4.3 % (0.0-3.0) H Basophils (%) (Auto) 0.3 % (0.0-2.0) Sodium Level 142 MMOL/L (136-145) Potassium Level 3.9 MMOL/L (3.5-5.1) Chloride Level 109 MMOL/L (98-107) H Carbon Dioxide Level 22 MMOL/L (21-32) Anion Gap 11 mmol/L (5-15) Blood Urea Nitrogen 26 mg/dL (7-18) H Creatinine 1.3 MG/DL (0.55-1.30) Estimat Glomerular Filtration Rate > 60 mL/min (>60) Glucose Level 105 MG/DL (74-106) Calcium Level 8.7 MG/DL (8.5-10.1) Phosphorus Level 3.1 MG/DL (2.5-4.9) Magnesium Level 2.0 MG/DL (1.8-2.4) Total Bilirubin 0.3 MG/DL (0.2-1.0) Aspartate Amino Transf (AST/SGOT) 55 U/L (15-37) H Alanine Aminotransferase (ALT/SGPT) 49 U/L (12-78) Alkaline Phosphatase 133 U/L (46-116) H Total Protein 6.8 G/DL (6.4-8.2) Albumin 1.8 G/DL (3.4-5.0) L Globulin 5.0 g/dL Albumin/Globulin Ratio 0.4 (1.0-2.7) L Random Vancomycin Level 11.1 ug/mL Microbiology Date/Time Source Procedure Growth Status 07/19/19 20:44 Sputum Gram Stain - Final Resulted 07/19/19 20:44 Sputum Culture - Preliminary Staphylococcus Species Abi Albicans Resulted Juarez Fletcher MD Jul 22, 2019 13:28
--- NOTE | 2019-07-22 13:35 | Infectious Diseases Prog Note ---
Assessment/Plan Assessment/Plan Assessment: Severe sepsis Pneumonia Probable UTI -07/22 CXR: Worsening CHF -u/a wbc 15-20, nit neg, leuk +3; ucx <10k Proteus sp (R Amp, ancef, macrobid ; otherwise), 70-80K S. viridans -07/19 CXR: marked worsening of pleural and parenchymal disease at the right lung base.There is also increasing parenchymal consolidation and atelectasis in the left infrahilar region. -CXR: Perihilar and basilar infiltrates. Findings suspicious for pneumonia. -influenza sc neg -Bcx NTD -sp cx staph sp, C. albicans -legionella ag urine neg Hypothermia, SP Leukocytosis, SP Acute respiratory failure, on NRB mask Lactic acidosis, SP RAMAN, improving Dm2 HTN non verbal hypothyroidism CVA hx of UTI anemia dementia [facility] resident Plan: -Continue empiric IV Vancomycin #5 pending sp cx -Switch Meropenem #4 to Cefepime for UTI and PNA -07/19 SP Ertapenem #2 -07/18 SP IV Amikacin x1, Levaquin x1 -f/u cx -Monitor CBC/CMP, temperatures -aspiration precautions Thank you for this consultation. Will continue to follow along with you. Discussed with RN Subjective Allergies: Coded Allergies: PENICILLINS (Verified Allergy, Unknown, 10/27/18) tolretas cephalosporins Subjective afebrile no leukocytosis Bcx NTD reamains on VM Objective Vital Signs Last 24 Hour Vital Signs Date Time Temp Pulse Resp B/P (MAP) Pulse Ox O2 Delivery O2 Flow Rate FiO2 07/22/19 08:00 67 07/22/19 08:00 14.0 07/22/19 08:00 Venturi Mask 14.0 07/22/19 08:00 97.7 97 22 145/60 (88) 97 07/22/19 04:00 71 07/22/19 04:00 98.1 76 22 134/74 (94) 100 07/22/19 04:00 Venturi Mask 14.0 07/22/19 04:00 14.0 07/22/19 00:00 14.0 07/22/19 00:00 70 07/22/19 00:00 98.3 80 22 143/79 (100) 98 07/22/19 00:00 Venturi Mask 14.0 07/21/19 20:00 Venturi Mask 14.0 07/21/19 20:00 99.1 60 18 118/56 (76) 98 07/21/19 20:00 14.0 07/21/19 20:00 71 07/21/19 19:00 97 Venturi Mask 10.0 45 07/21/19 16:00 98.8 71 20 126/72 (90) 98 07/21/19 16:00 63 07/21/19 16:00 Venturi Mask 14.0 07/21/19 16:00 14.0 Height (Feet): 6 Height (Inches): 1.00 Weight (Pounds): 151 Objective GENERAL: The patient is a well-developed, well-nourished, thin-appearing male, who is in moderate respiratory distress. HEENT: Eyes, pupils are equal and responsive to light and accommodation. Extraocular movements are intact. NECK: Supple without lymphadenopathy. CHEST: Lungs are clear to auscultation bilaterally without wheezes or rales. CARDIOVASCULAR: Regular rhythm and rate. S1 and S2 are normal without murmurs, rubs, or gallops. ABDOMEN: Soft, nontender, and nondistended. Positive bowel sounds. No evidence of hepatosplenomegaly. Currently, no rebound or guarding noted. EXTREMITIES: Negative for clubbing, cyanosis, or edema. Microbiology Date/Time Source Procedure Growth Status 07/19/19 20:44 Sputum Gram Stain - Final Resulted 07/19/19 20:44 Sputum Culture - Preliminary Staphylococcus Species Abi Albicans Resulted Laboratory Tests Test 07/22/19 03:30 White Blood Count 7.0 K/UL (4.8-10.8) Red Blood Count 3.43 M/UL (4.70-6.10) L Hemoglobin 8.6 G/DL (14.2-18.0) L Hematocrit 26.5 % (42.0-52.0) L Mean Corpuscular Volume 77 FL (80-99) L Mean Corpuscular Hemoglobin 25.0 PG (27.0-31.0) L Mean Corpuscular Hemoglobin Concent 32.3 G/DL (32.0-36.0) Red Cell Distribution Width 15.5 % (11.6-14.8) H Platelet Count 262 K/UL (150-450) Mean Platelet Volume 6.2 FL (6.5-10.1) L Neutrophils (%) (Auto) 79.0 % (45.0-75.0) H Lymphocytes (%) (Auto) 11.4 % (20.0-45.0) L Monocytes (%) (Auto) 5.1 % (1.0-10.0) Eosinophils (%) (Auto) 4.3 % (0.0-3.0) H Basophils (%) (Auto) 0.3 % (0.0-2.0) Sodium Level 142 MMOL/L (136-145) Potassium Level 3.9 MMOL/L (3.5-5.1) Chloride Level 109 MMOL/L (98-107) H Carbon Dioxide Level 22 MMOL/L (21-32) Anion Gap 11 mmol/L (5-15) Blood Urea Nitrogen 26 mg/dL (7-18) H Creatinine 1.3 MG/DL (0.55-1.30) Estimat Glomerular Filtration Rate > 60 mL/min (>60) Glucose Level 105 MG/DL (74-106) Calcium Level 8.7 MG/DL (8.5-10.1) Phosphorus Level 3.1 MG/DL (2.5-4.9) Magnesium Level 2.0 MG/DL (1.8-2.4) Total Bilirubin 0.3 MG/DL (0.2-1.0) Aspartate Amino Transf (AST/SGOT) 55 U/L (15-37) H Alanine Aminotransferase (ALT/SGPT) 49 U/L (12-78) Alkaline Phosphatase 133 U/L (46-116) H Total Protein 6.8 G/DL (6.4-8.2) Albumin 1.8 G/DL (3.4-5.0) L Globulin 5.0 g/dL Albumin/Globulin Ratio 0.4 (1.0-2.7) L Random Vancomycin Level 11.1 ug/mL Current Medications Medications (Trade) Dose Ordered Sig/Kike Route PRN Reason Start Time Stop Time Status Last Admin Dose Admin Acetaminophen (Tylenol) 650 mg Q4H PRN ORAL fever 07/21/19 05:30 08/17/19 05:29 Albuterol/ Ipratropium (Albuterol/ Ipratropium) 3 ml Q4H PRN HHN Shortness of Breath 2/13/20 06:15 07/23/19 14:14 Dextrose 1,000 ml @ 40 mls/hr Q24H IV 07/21/19 12:00 08/20/19 11:59 07/22/19 11:33 Folic Acid (Folate) 2 mg DAILY ORAL 07/21/19 09:00 08/19/19 11:29 07/21/19 08:47 Heparin Sodium (Porcine) (Heparin 5000 units/ml) 5,000 units EVERY 12 HOURS SUBQ 07/21/19 09:00 08/17/19 20:59 07/22/19 08:59 Levothyroxine Sodium (Synthroid) 50 mcg DAILY@0630 ORAL 07/21/19 06:30 08/18/19 06:29 07/22/19 06:11 Meropenem 1 gm/ Sodium Chloride 55 ml @ 110 mls/hr Q12HR@0100,1300 IVPB 07/21/19 13:00 07/24/19 12:59 07/22/19 12:59 Ondansetron HCl (Zofran) 4 mg Q6H PRN IVP Nausea & Vomiting 07/21/19 08:15 08/17/19 14:14 Pantoprazole (Protonix) 40 mg Q12HR IVP 07/21/19 09:00 08/18/19 08:59 07/22/19 08:57 Polyethylene Glycol (Miralax) 17 gm DAILYPRN PRN ORAL Constipation 07/21/19 05:30 08/17/19 05:29 Quetiapine Fumarate (SEROqueL) 25 mg Q8H PRN ORAL agitation 07/21/19 05:30 08/17/19 05:29 07/21/19 22:29 Vancomycin HCl (Vanco rx to dose) 1 ea DAILY PRN MISC Per rx protocol 07/21/19 09:00 08/17/19 14:29 Vancomycin/Sodium Chloride 275 ml @ 183.333 mls/hr Q24H IVPB 07/22/19 14:00 07/27/19 13:59 Danielle Roach M.D. Jul 22, 2019 13:35
--- NOTE | 2019-07-22 15:00 | NUR ---
NURSE NOTES: Walked in and patient was pulling out NG tube. put a order to check NG-tube placement.
[2019-07-22] MEDS: Vancomycin 1.25gm/NS Premix q24h IVPB SCH (15:09)
--- NOTE | 2019-07-22 15:17 | NUR ---
SPEECH STATUS/RE-EVALUATION OF SWALLOW EFFICACY ORIGINAL FINDING: INITIAL IMPRESSIONS FROM 07/20 NOT CONSISTENTLY ALERT FOR ADEQUATE/SAFE PO INTAKE HIGH RISK FOR PERSISTENT AND WORSENED OROPHARYNGEAL DYSPHAGIA NEEDS DEEP NASAL SUCTION PER RN (MOD REDDISH AMOUNTS AND THICK) HIGH RISK FOR SILENT ASPIRATION GIVEN H/O CVA AND DEMENTIA RECOMMENDATIONS: CONTINUE WITH NPO (NO ICE CHIPS/MEDS) INITIATE NGT (12 FAROESE IF POSSIBLE) FEEDINGS AND CONTINUE WITH ORAL CARE AND SUCTION PRN COMPLETE MOD BARIUM SWALLOW STUDY WHEN READY/ALERT TODAY"S IMPRESSIONS: PATIENT REMAINS HIGH RISK FOR ASPIRATION. WET UPPER AIRWAY SOUNDS NON/CLEARING, NON/PRODUCTIVE COUGH DECREASED MENTATION WITH INTRODUCTION OF ONE ICE CHIP: PATIENTS UPPER AIRWAY SOUNDS INCREASED, VOCAL QUALITY WAS WET/GURGLY, CONTINUOUS COUGH RESPONSE POST SWALLOW. SEVERE OROPHARYNGEAL DYSPHAGIA. VITAL SIGN CHANGES WITH ONE P.O. TRIAL (I.E. INCREASED IN RESPIRATION RATE) PATIENT CONTINUES TO NEED SUPPORT OF NON/ORAL FEEDING MANAGEMENT.
[2019-07-22 16:00] VITALS: BP 138/66
--- NOTE | 2019-07-22 16:22 | Internal Med Progress Note ---
Subjective Physician Name Lamont Hayes Attending Physician Lamont Hayes MD Current Medications Medications (Trade) Dose Ordered Sig/Kike Route PRN Reason Start Time Stop Time Status Last Admin Dose Admin Acetaminophen (Tylenol) 650 mg Q4H PRN ORAL fever 07/21/19 05:30 08/17/19 05:29 Albuterol/ Ipratropium (Albuterol/ Ipratropium) 3 ml Q4H PRN HHN Shortness of Breath 07/21/19 06:15 07/23/19 14:14 Cefepime HCl 1 gm/ Dextrose 55 ml @ 110 mls/hr Q24H IVPB 07/22/19 21:00 07/29/19 20:59 Dextrose 1,000 ml @ 40 mls/hr Q24H IV 07/21/19 12:00 08/20/19 11:59 07/22/19 11:33 Folic Acid (Folate) 2 mg DAILY ORAL 07/21/19 09:00 08/19/19 11:29 07/21/19 08:47 Heparin Sodium (Porcine) (Heparin 5000 units/ml) 5,000 units EVERY 12 HOURS SUBQ 07/21/19 09:00 08/17/19 20:59 07/22/19 08:59 Levothyroxine Sodium (Synthroid) 50 mcg DAILY@0630 ORAL 07/21/19 06:30 08/18/19 06:29 07/22/19 06:11 Ondansetron HCl (Zofran) 4 mg Q6H PRN IVP Nausea & Vomiting 07/21/19 08:15 08/17/19 14:14 Pantoprazole (Protonix) 40 mg Q12HR IVP 07/21/19 09:00 08/18/19 08:59 07/22/19 08:57 Polyethylene Glycol (Miralax) 17 gm DAILYPRN PRN ORAL Constipation 07/21/19 05:30 08/17/19 05:29 Quetiapine Fumarate (SEROqueL) 25 mg Q8H PRN ORAL agitation 07/21/19 05:30 08/17/19 05:29 07/21/19 22:29 Vancomycin HCl (Vanco rx to dose) 1 ea DAILY PRN MISC Per rx protocol 07/21/19 09:00 08/17/19 14:29 Vancomycin/Sodium Chloride 275 ml @ 183.333 mls/hr Q24H IVPB 07/22/19 14:00 07/27/19 13:59 07/22/19 15:09 Allergies: Coded Allergies: PENICILLINS (Verified Allergy, Unknown, 10/27/18) tolretas cephalosporins Subjective awake, responsive, talking slowly, NAD Objective Last Vital Signs Date Time Temp Pulse Resp B/P (MAP) Pulse Ox O2 Delivery O2 Flow Rate FiO2 07/22/19 16:00 14.0 07/22/19 16:00 Venturi Mask 07/22/19 12:00 97.5 80 24 132/64 (86) 97 07/21/19 19:00 45 Laboratory Tests Test 07/22/19 03:30 White Blood Count 7.0 K/UL (4.8-10.8) Red Blood Count 3.43 M/UL (4.70-6.10) L Hemoglobin 8.6 G/DL (14.2-18.0) L Hematocrit 26.5 % (42.0-52.0) L Mean Corpuscular Volume 77 FL (80-99) L Mean Corpuscular Hemoglobin 25.0 PG (27.0-31.0) L Mean Corpuscular Hemoglobin Concent 32.3 G/DL (32.0-36.0) Red Cell Distribution Width 15.5 % (11.6-14.8) H Platelet Count 262 K/UL (150-450) Mean Platelet Volume 6.2 FL (6.5-10.1) L Neutrophils (%) (Auto) 79.0 % (45.0-75.0) H Lymphocytes (%) (Auto) 11.4 % (20.0-45.0) L Monocytes (%) (Auto) 5.1 % (1.0-10.0) Eosinophils (%) (Auto) 4.3 % (0.0-3.0) H Basophils (%) (Auto) 0.3 % (0.0-2.0) Sodium Level 142 MMOL/L (136-145) Potassium Level 3.9 MMOL/L (3.5-5.1) Chloride Level 109 MMOL/L (98-107) H Carbon Dioxide Level 22 MMOL/L (21-32) Anion Gap 11 mmol/L (5-15) Blood Urea Nitrogen 26 mg/dL (7-18) H Creatinine 1.3 MG/DL (0.55-1.30) Estimat Glomerular Filtration Rate > 60 mL/min (>60) Glucose Level 105 MG/DL (74-106) Calcium Level 8.7 MG/DL (8.5-10.1) Phosphorus Level 3.1 MG/DL (2.5-4.9) Magnesium Level 2.0 MG/DL (1.8-2.4) Total Bilirubin 0.3 MG/DL (0.2-1.0) Aspartate Amino Transf (AST/SGOT) 55 U/L (15-37) H Alanine Aminotransferase (ALT/SGPT) 49 U/L (12-78) Alkaline Phosphatase 133 U/L (46-116) H Total Protein 6.8 G/DL (6.4-8.2) Albumin 1.8 G/DL (3.4-5.0) L Globulin 5.0 g/dL Albumin/Globulin Ratio 0.4 (1.0-2.7) L Random Vancomycin Level 11.1 ug/mL Microbiology Date/Time Source Procedure Growth Status 07/19/19 20:44 Sputum Gram Stain - Final Resulted 07/19/19 20:44 Sputum Culture - Preliminary Staphylococcus Species Abi Albicans Resulted Intake and Output 07/21/19 07/22/19 19:00 07:00 Intake Total 1659.5 ml 1245 ml Output Total 445 ml 650 ml Balance 1214.5 ml 595 ml Free Water 130 ml 100 ml IV Total 929.5 ml 475 ml Tube Feeding 600 ml 670 ml Output Urine Total 445 ml 650 ml Objective PHYSICAL EXAMINATION: GENERAL: The patient is a well-developed, well-nourished, thin-appearing male, No acute respiratory distress. HEENT: Eyes, pupils are equal and responsive to light and accommodation. Extraocular movements are intact, NG Tube. NECK: Supple without lymphadenopathy. CHEST: Venturi mask; No wheeze, coarse breath sound, breath sounds decreased at bases CARDIOVASCULAR: Regular rhythm and rate. S1 and S2 are normal without murmurs , ABDOMEN: Soft, nontender, and nondistended. Positive bowel sounds. EXTREMITIES: Negative for clubbing, cyanosis, or edema. RECTAL/GENITAL: Not performed. NEUROLOGIC: Cranial nerves II through XII are grossly intact without focal deficits. Motor strength is 4/5 bilaterally. Assessment/Plan Assessment/Plan ASSESSMENT: This is an 84-year-old male. 1. Bilateral pneumonia. 2. Acute Respiratory failure. 3. Sepsis. 4. Altered mental status. 5. Diabetes type 2. 6. Hypothyroidism. 7. Cerebrovascular disease. 8. Acute renal failure. 9. Leukocytosis 10. Hypernatremia TREATMENT: 1. Respiratory failure/bilateral pneumonia. A Pulmonary consultation has been obtained with Dr. Vania Hui. The patient is currently admitted to the intensive care unit. The patient is currently on a venturi mask. The patient has been started empirically on vancomycin and ertapenem. A sputum culture is pending. Await sputum culture results. 2. Altered mental status. This is probably secondary to hypoxia secondary to pneumonia as above. 3. Diabetes type 2. The patient was admitted without antihyperglycemic medication. 4. Hypothyroidism. Continue Levoxyl as above. 5. Cerebrovascular disease. The patient is status post cerebrovascular accident. 6. Acute renal failure. This may be secondary to acute dehydration. The patient is currently receiving intravenous fluids. 7. Severe Sepsis. ABX: Vanco IV and Cefepime IV. Full code Heparin SQ Lamont Hayes MD Jul 22, 2019 16:22
--- NOTE | 2019-07-22 16:36 | NUR ---
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 97.5 HR 80 RR 24 B/P 134/64 VM FIO2 45% CXR= WORSENING CHF IS: CEFEPIME IV VANCO IV IVF D5@40ML/HR HEPARIN SUBC STEP DOWN STATUS
--- NOTE | 2019-07-22 16:54 | Diagnostic Imaging Report ---
Indication: NG tube placement Comparison: 07/22/2019 at 09:11 Single view of the abdomen obtained Findings: Performed at 16:28 NG tube is in good position. The tip and proximal port are well within the stomach lumen. Bowel gas pattern nonspecific. IMPRESSION: NG tube in good position
--- NOTE | 2019-07-22 19:25 | NUR ---
NURSE NOTES: Walked in on patient and patient pulled out IV site in left hand. Endorsed to KAI Spear.
--- NOTE | 2019-07-22 19:30 | NUR ---
HAND-OFF: Report given to KAI Spear. Patient in stable condition.
--- NOTE | 2019-07-22 19:30 | NUR ---
NURSE NOTES: Received patient from KAI Santos. Pt. asleep . OX1 confused on and off. 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 On VM at 55%. IV site is Right Forearm 20g, receiving D5W at 40cc/hr. Condom catheter intact and draining well of hazy cammy urine. In no apparent distress. Bed in lowest position w/side rails up x3. bed alarm and lock engaged. HOB elevated. Will continue POC.
[2019-07-22 20:00] VITALS: BP 116/53
[2019-07-22] MEDS: Cefepime HCl 1 GM in D5W 55 ML IVPB SCH (21:22)
[2019-07-23] VITALS: BP 159/70
[2019-07-23 04:00] VITALS: BP 159/68
[2019-07-23 06:39] LABS: BASOPHILS % (AUTO) 0.6 % (0.0-2.0); EOSINOPHILS % (AUTO) 7.3 % (0.0-3.0); HEMATOCRIT 26.2 % (42.0-52.0); HEMOGLOBIN 8.4 G/DL (14.2-18.0); LYMPHOCYTES % (AUTO) 25.2 % (20.0-45.0); MEAN CORPUSCULAR VOLUME 78 FL (80-99); NEUTROPHILS % (AUTO) 55.9 % (45.0-75.0); PLATELET COUNT 244 K/UL (150-450); RED BLOOD COUNT 3.37 M/UL (4.70-6.10); WHITE BLOOD COUNT 5.7 K/UL (4.8-10.8)
[2019-07-23 07:20] LABS: ALANINE AMINOTRANSFERASE 43 U/L (12-78); ALBUMIN 1.9 G/DL (3.4-5.0); ALBUMIN/GLOBULIN RATIO 0.4 (1.0-2.7); ALKALINE PHOSPHATASE 127 U/L (46-116); ANION GAP 10 mmol/L (5-15); ASPARTATE AMINO TRANSFERASE 39 U/L (15-37); BILIRUBIN,TOTAL 0.4 MG/DL (0.2-1.0); BLOOD UREA NITROGEN 19 mg/dL (7-18); CALCIUM 9.2 MG/DL (8.5-10.1); CARBON DIOXIDE 25 MMOL/L (21-32); CHLORIDE 107 MMOL/L (98-107); CREATININE 1.2 MG/DL (0.55-1.30); PHOSPHORUS 3.1 MG/DL (2.5-4.9); POTASSIUM 4.1 MMOL/L (3.5-5.1); SODIUM 142 MMOL/L (136-145)
--- NOTE | 2019-07-23 07:24 | Pulmonology Progress Note ---
Assessment/Plan Assessment/Plan ASSESSMENT Sepsis Acute respiratory failure, requiring NRM Bilateral pneumonia Acute metabolic encephalopathy UTI Diabetes mellitus type 2 Acute renal failure Cerebrovascular disease Hypothyroidism Hypernatremia Severe anemia Alzheimer dementia Anemia of iron deficiency PLAN OF CARE RUSH O2 titrate to keep pulse ox above 92%, currently on Venturi mask , off NRM Pulmonary toilet abx as per ID SCX + Staph, Abi , UCX + Proteus , Strep viridans , BCX NGTD , repeated UCX negative fup with CXR Aspiration precaution NG TF Swallow evaluation noted, diet as per ST recommendation Monitor H&H with goal to keep hemoglobin above 7 Stool OB negative CEA WNL Anemia c/w AID, on venofer folic acid supplement DVT GI prophylaxis Gentle IV hydration monitor renal parameters, lites ,correct electrolytes as needed, avoid nephrotoxic bowel regimen elevated TSH ; dose of Synthroid increased, repeat TFT in 1 month case discussed and evaluated by supervising physician Subjective Allergies: Coded Allergies: PENICILLINS (Verified Allergy, Unknown, 10/27/18) tolretas cephalosporins Subjective On O2 via VM, pulse ox stable , unable to wean down so far afebrile, no leukocytosis Objective Last 24 Hour Vital Signs Date Time Temp Pulse Resp B/P (MAP) Pulse Ox O2 Delivery O2 Flow Rate FiO2 07/23/19 04:00 66 07/23/19 00:00 Venturi Mask 14.0 07/23/19 00:00 14.0 07/23/19 00:00 97.7 66 20 159/70 (99) 100 07/23/19 00:00 62 07/22/19 20:00 97.7 68 20 116/53 (74) 96 07/22/19 20:00 Venturi Mask 14.0 07/22/19 20:00 62 07/22/19 20:00 14.0 07/22/19 19:08 96 Venturi Mask 10.0 45 07/22/19 16:00 97.3 75 24 138/66 (90) 96 07/22/19 16:00 63 07/22/19 16:00 14.0 07/22/19 16:00 Venturi Mask 14.0 07/22/19 12:00 97.5 80 24 132/64 (86) 97 07/22/19 12:00 65 07/22/19 12:00 14.0 07/22/19 12:00 Venturi Mask 14.0 07/22/19 08:00 67 07/22/19 08:00 14.0 07/22/19 08:00 Venturi Mask 14.0 07/22/19 08:00 97.7 97 22 145/60 (88) 97 Intake and Output 07/22/19 07/23/19 19:00 07:00 Intake Total 390 ml Output Total 600 ml Balance -210 ml Tube Feeding 390 ml Output Urine Total 600 ml HEENT: normocephalic, atraumatic, anicteric, other - on VM Respiratory/Chest: decreased breath sounds Cardiovascular: normal rate Abdomen: soft, non tender Extremities: no edema Neurologic/Psychiatric: abnormal gait Musculoskeletal: atrophy Laboratory Tests 07/23/19 04:27: White Blood Count 5.7, Red Blood Count 3.37L, Hemoglobin 8.4L, Hematocrit 26.2L , Mean Corpuscular Volume 78L, Mean Corpuscular Hemoglobin 25.1L, Mean Corpuscular Hemoglobin Concent 32.2, Red Cell Distribution Width 16.0H, Platelet Count 244, Mean Platelet Volume 6.4L, Neutrophils (%) (Auto) 55.9, Lymphocytes (%) (Auto) 25.2, Monocytes (%) (Auto) 11.0H, Eosinophils (%) (Auto) 7.3H, Basophils (%) (Auto) 0.6, Erythrocyte Sedimentation Rate [Pending], Sodium Level [Pending], Potassium Level [Pending], Chloride Level [Pending], Carbon Dioxide Level [Pending], Blood Urea Nitrogen [Pending], Creatinine [ Pending], Estimat Glomerular Filtration Rate [Pending], Glucose Level [Pending] , Calcium Level [Pending], Phosphorus Level [Pending], Magnesium Level [Pending] , Total Bilirubin [Pending], Aspartate Amino Transf (AST/SGOT) [Pending], Alanine Aminotransferase (ALT/SGPT) [Pending], Alkaline Phosphatase [Pending], C -Reactive Protein, Quantitative [Pending], Total Protein [Pending], Albumin [ Pending], Globulin [Pending] Current Medications Medications (Trade) Dose Ordered Sig/Kike Route PRN Reason Start Time Stop Time Status Last Admin Dose Admin Acetaminophen (Tylenol) 650 mg Q4H PRN ORAL fever 07/21/19 05:30 08/17/19 05:29 Albuterol/ Ipratropium (Albuterol/ Ipratropium) 3 ml Q4H PRN HHN Shortness of Breath 07/21/19 06:15 07/23/19 14:14 Cefepime HCl 1 gm/ Dextrose 55 ml @ 110 mls/hr Q24H IVPB 07/22/19 21:00 07/29/19 20:59 07/22/19 21:22 Dextrose 1,000 ml @ 40 mls/hr Q24H IV 07/21/19 12:00 08/20/19 11:59 07/22/19 11:33 Folic Acid (Folate) 2 mg DAILY ORAL 07/21/19 09:00 08/19/19 11:29 07/21/19 08:47 Heparin Sodium (Porcine) (Heparin 5000 units/ml) 5,000 units EVERY 12 HOURS SUBQ 07/21/19 09:00 08/17/19 20:59 07/22/19 21:22 Levothyroxine Sodium (Synthroid) 50 mcg DAILY@0630 ORAL 07/21/19 06:30 08/18/19 06:29 07/22/19 06:11 Ondansetron HCl (Zofran) 4 mg Q6H PRN IVP Nausea & Vomiting 07/21/19 08:15 08/17/19 14:14 Pantoprazole (Protonix) 40 mg Q12HR IVP 07/21/19 09:00 08/18/19 08:59 07/22/19 21:21 Polyethylene Glycol (Miralax) 17 gm DAILYPRN PRN ORAL Constipation 07/21/19 05:30 08/17/19 05:29 Quetiapine Fumarate (SEROqueL) 25 mg Q8H PRN ORAL agitation 07/21/19 05:30 08/17/19 05:29 07/21/19 22:29 Vancomycin HCl (Vanco rx to dose) 1 ea DAILY PRN MISC Per rx protocol 07/21/19 09:00 08/17/19 14:29 Vancomycin/Sodium Chloride 275 ml @ 183.333 mls/hr Q24H IVPB 07/22/19 14:00 07/27/19 13:59 07/22/19 15:09 Miranda Pimentel ACCOUNTING LECTURER Jul 23, 2019 07:24
--- NOTE | 2019-07-23 07:42 | Infectious Diseases Prog Note ---
Assessment/Plan Assessment/Plan Assessment: Severe sepsis Pneumonia Probable UTI -07/22 CXR: Worsening CHF -u/a wbc 15-20, nit neg, leuk +3; ucx <10k Proteus sp (R Amp, ancef, macrobid ; otherwise), 70-80K S. viridans -07/19 CXR: marked worsening of pleural and parenchymal disease at the right lung base.There is also increasing parenchymal consolidation and atelectasis in the left infrahilar region. -CXR: Perihilar and basilar infiltrates. Findings suspicious for pneumonia. -influenza sc neg -Bcx NTD -sp cx staph sp, C. albicans -legionella ag urine neg Hypothermia, SP Leukocytosis, SP Acute respiratory failure, on NRB mask Lactic acidosis, SP RAMAN, improving Dm2 HTN non verbal hypothyroidism CVA hx of UTI anemia dementia [facility] resident Plan: -Continue empiric IV Vancomycin #6 pending sp staph aureus sensi Cefepime #2 for UTI and PNA -07/22 SP Barbara #4 -07/19 SP Ertapenem #2 -07/18 SP IV Amikacin x1, Levaquin x1 -f/u cx -Monitor CBC/CMP, temperatures -aspiration precautions Thank you for this consultation. Will continue to follow along with you. Subjective Allergies: Coded Allergies: PENICILLINS (Verified Allergy, Unknown, 10/27/18) tolretas cephalosporins Subjective Afebrile. no leukocytosis Stable oxygen requirement no complaints Objective Vital Signs Last 24 Hour Vital Signs Date Time Temp Pulse Resp B/P (MAP) Pulse Ox O2 Delivery O2 Flow Rate FiO2 07/23/19 04:00 66 07/23/19 00:00 Venturi Mask 14.0 07/23/19 00:00 14.0 07/23/19 00:00 97.7 66 20 159/70 (99) 100 07/23/19 00:00 62 07/22/19 20:00 97.7 68 20 116/53 (74) 96 07/22/19 20:00 Venturi Mask 14.0 07/22/19 20:00 62 07/22/19 20:00 14.0 07/22/19 19:08 96 Venturi Mask 10.0 45 07/22/19 16:00 97.3 75 24 138/66 (90) 96 07/22/19 16:00 63 07/22/19 16:00 14.0 07/22/19 16:00 Venturi Mask 14.0 07/22/19 12:00 97.5 80 24 132/64 (86) 97 07/22/19 12:00 65 07/22/19 12:00 14.0 07/22/19 12:00 Venturi Mask 14.0 07/22/19 08:00 67 07/22/19 08:00 14.0 07/22/19 08:00 Venturi Mask 14.0 07/22/19 08:00 97.7 97 22 145/60 (88) 97 Height (Feet): 6 Height (Inches): 1.00 Weight (Pounds): 151 Objective GENERAL: The patient is a well-developed, well-nourished, thin-appearing male CHEST: Lungs are clear to auscultation bilaterally without wheezes or rales. CARDIOVASCULAR: Regular rhythm and rate. S1 and S2 are normal without murmurs, rubs, or gallops. ABDOMEN: Soft, nontender, and nondistended. Positive bowel sounds. No evidence of hepatosplenomegaly. Currently, no rebound or guarding noted. Laboratory Tests Test 07/23/19 04:27 White Blood Count 5.7 K/UL (4.8-10.8) Red Blood Count 3.37 M/UL (4.70-6.10) L Hemoglobin 8.4 G/DL (14.2-18.0) L Hematocrit 26.2 % (42.0-52.0) L Mean Corpuscular Volume 78 FL (80-99) L Mean Corpuscular Hemoglobin 25.1 PG (27.0-31.0) L Mean Corpuscular Hemoglobin Concent 32.2 G/DL (32.0-36.0) Red Cell Distribution Width 16.0 % (11.6-14.8) H Platelet Count 244 K/UL (150-450) Mean Platelet Volume 6.4 FL (6.5-10.1) L Neutrophils (%) (Auto) 55.9 % (45.0-75.0) Lymphocytes (%) (Auto) 25.2 % (20.0-45.0) Monocytes (%) (Auto) 11.0 % (1.0-10.0) H Eosinophils (%) (Auto) 7.3 % (0.0-3.0) H Basophils (%) (Auto) 0.6 % (0.0-2.0) Erythrocyte Sedimentation Rate Pending Sodium Level Pending Potassium Level Pending Chloride Level Pending Carbon Dioxide Level Pending Blood Urea Nitrogen Pending Creatinine Pending Estimat Glomerular Filtration Rate Pending Glucose Level Pending Calcium Level Pending Phosphorus Level Pending Magnesium Level Pending Total Bilirubin Pending Aspartate Amino Transf (AST/SGOT) Pending Alanine Aminotransferase (ALT/SGPT) Pending Alkaline Phosphatase Pending C-Reactive Protein, Quantitative Pending Total Protein Pending Albumin Pending Globulin Pending Current Medications Medications (Trade) Dose Ordered Sig/Kike Route PRN Reason Start Time Stop Time Status Last Admin Dose Admin Acetaminophen (Tylenol) 650 mg Q4H PRN ORAL fever 07/21/19 05:30 08/17/19 05:29 Albuterol/ Ipratropium (Albuterol/ Ipratropium) 3 ml Q4H PRN HHN Shortness of Breath 07/21/19 06:15 07/23/19 14:14 Cefepime HCl 1 gm/ Dextrose 55 ml @ 110 mls/hr Q24H IVPB 07/22/19 21:00 07/29/19 20:59 07/22/19 21:22 Dextrose 1,000 ml @ 40 mls/hr Q24H IV 07/21/19 12:00 08/20/19 11:59 07/22/19 11:33 Folic Acid (Folate) 2 mg DAILY ORAL 07/21/19 09:00 08/19/19 11:29 07/21/19 08:47 Heparin Sodium (Porcine) (Heparin 5000 units/ml) 5,000 units EVERY 12 HOURS SUBQ 07/21/19 09:00 08/17/19 20:59 07/22/19 21:22 Levothyroxine Sodium (Synthroid) 50 mcg DAILY@0630 ORAL 07/21/19 06:30 08/18/19 06:29 07/22/19 06:11 Ondansetron HCl (Zofran) 4 mg Q6H PRN IVP Nausea & Vomiting 07/21/19 08:15 08/17/19 14:14 Pantoprazole (Protonix) 40 mg Q12HR IVP 07/21/19 09:00 08/18/19 08:59 07/22/19 21:21 Polyethylene Glycol (Miralax) 17 gm DAILYPRN PRN ORAL Constipation 07/21/19 05:30 08/17/19 05:29 Quetiapine Fumarate (SEROqueL) 25 mg Q8H PRN ORAL agitation 07/21/19 05:30 08/17/19 05:29 07/21/19 22:29 Vancomycin HCl (Vanco rx to dose) 1 ea DAILY PRN MISC Per rx protocol 07/21/19 09:00 08/17/19 14:29 Vancomycin/Sodium Chloride 275 ml @ 183.333 mls/hr Q24H IVPB 07/22/19 14:00 07/27/19 13:59 07/22/19 15:09 Marcelina Matias MD Jul 23, 2019 07:42
[2019-07-23 08:00] VITALS: BP 163/86
--- NOTE | 2019-07-23 08:00 | NUR ---
HAND-OFF: Report given to RUSSEL MOHAN RN. Patient pulled out NGT and reinserted. awaiting ABODOMEN X-RAY for placement.no acute distress.
[2019-07-23] MEDS: Pantoprazole Inj IVP SCH (10:28)
[2019-07-23] MEDS: Heparin 5000 units/ml inj SUBQ SCH ×2 (10:31→20:00)
--- NOTE | 2019-07-23 11:32 | Nephrology Progress Note ---
Assessment/Plan Problem List: (1) Acute renal failure (2) Severe anemia (3) Sepsis (4) Diabetes mellitus (5) Hypothyroidism Assessment Alexi Cr lowering 2.6 to 1.8 Sepsis / Pneumonia / UTI / Hypothermia Respiratory failure HypoThyroidism h/o CVA Anemia Dementia Plan DC Hydrate IV iron Phos supplement as needed antibiotics avoid nephrotoxics monitor renal parameters check TFTs- adjust synthroid dose Urine eos per orders Subjective ROS Limited/Unobtainable: No Constitutional: Reports: malaise, weakness Objective Objective Last 24 Hour Vital Signs Date Time Temp Pulse Resp B/P (MAP) Pulse Ox O2 Delivery O2 Flow Rate FiO2 07/23/19 08:00 98.2 71 20 163/86 (111) 98 07/23/19 08:00 14.0 07/23/19 07:54 65 07/23/19 04:00 Venturi Mask 14.0 07/23/19 04:00 66 07/23/19 04:00 97.5 70 20 159/68 (98) 100 07/23/19 04:00 14.0 07/23/19 00:00 Venturi Mask 14.0 07/23/19 00:00 14.0 07/23/19 00:00 97.7 66 20 159/70 (99) 100 07/23/19 00:00 62 07/22/19 20:00 97.7 68 20 116/53 (74) 96 07/22/19 20:00 Venturi Mask 14.0 07/22/19 20:00 62 07/22/19 20:00 14.0 07/22/19 19:08 96 Venturi Mask 10.0 45 07/22/19 16:00 97.3 75 24 138/66 (90) 96 07/22/19 16:00 63 07/22/19 16:00 14.0 07/22/19 16:00 Venturi Mask 14.0 07/22/19 12:00 97.5 80 24 132/64 (86) 97 07/22/19 12:00 65 07/22/19 12:00 14.0 07/22/19 12:00 Venturi Mask 14.0 Intake and Output 07/22/19 07/23/19 19:00 07:00 Intake Total 390 ml 630 ml Output Total 600 ml 200 ml Balance -210 ml 430 ml IV Total 630 ml Tube Feeding 390 ml Output Urine Total 600 ml 200 ml Laboratory Tests 07/23/19 04:27: White Blood Count 5.7, Red Blood Count 3.37L, Hemoglobin 8.4L, Hematocrit 26.2L , Mean Corpuscular Volume 78L, Mean Corpuscular Hemoglobin 25.1L, Mean Corpuscular Hemoglobin Concent 32.2, Red Cell Distribution Width 16.0H, Platelet Count 244, Mean Platelet Volume 6.4L, Neutrophils (%) (Auto) 55.9, Lymphocytes (%) (Auto) 25.2, Monocytes (%) (Auto) 11.0H, Eosinophils (%) (Auto) 7.3H, Basophils (%) (Auto) 0.6, Erythrocyte Sedimentation Rate 123H, Sodium Level 142, Potassium Level 4.1, Chloride Level 107, Carbon Dioxide Level 25, Anion Gap 10, Blood Urea Nitrogen 19H, Creatinine 1.2, Estimat Glomerular Filtration Rate > 60, Glucose Level 80, Calcium Level 9.2, Phosphorus Level 3.1 , Magnesium Level 2.1, Total Bilirubin 0.4, Aspartate Amino Transf (AST/SGOT) 39H, Alanine Aminotransferase (ALT/SGPT) 43, Alkaline Phosphatase 127H, C- Reactive Protein, Quantitative 24.9H, Total Protein 7.3, Albumin 1.9L, Globulin 5.4, Albumin/Globulin Ratio 0.4L Height (Feet): 6 Height (Inches): 1.00 Weight (Pounds): 150 General Appearance: no apparent distress EENT: other - has NGT Cardiovascular: normal rate Respiratory/Chest: decreased breath sounds Abdomen: distended Clovis Benites MD Jul 23, 2019 11:32
[2019-07-23 12:00] VITALS: BP 149/77
[2019-07-23] MEDS ORDERED: Iron Sucrose 200 MG in NS 110 ML IV ONE (13:00)
[2019-07-23] MEDS: Vancomycin 1.25gm/NS Premix q24h IVPB SCH (13:57)
--- NOTE | 2019-07-23 15:00 | NUR ---
NURSE NOTES: Noted KUB result in good position started ngt feeding as ordred. Hob eleveted .no residual noted. informed MD and placed patient on restraint.
--- NOTE | 2019-07-23 15:05 | Diagnostic Imaging Report ---
EXAM: XR Abdomen, 2 Views CLINICAL HISTORY: NGT TECHNIQUE: Frontal view of the abdomen/pelvis with upright view of the abdomen. COMPARISON: Abdominal x-rays dated 07/20/19 and 07/18/19 FINDINGS: Intraperitoneal space: No free air. Gastrointestinal tract: Moderate stool throughout the rectosigmoid, which may suggest constipation. Mild gaseous distention of central abdominal bowel loops. Otherwise both of positive bowel gas. Organs: The renal shadows appear unremarkable. No evidence of organomegaly. No abnormal calcifications in the abdomen or pelvis. No evidence of portal venous gas. Surgical clips in the right upper abdominal quadrant suggest prior cholecystectomy. Bones/joints: Moderately displaced right femoral neck fracture. Partial visualization of left femoral neck internal fixation. Degenerative changes throughout the visualized spine. Tubes, lines and devices: NGT tip in the left upper quadrant, likely within the gastric body. IMPRESSION: 1. NGT tip in the left upper quadrant, likely within the gastric body. 2. Moderate stool throughout the rectosigmoid, which may suggest constipation. 3. Moderately displaced right femoral neck fracture.
--- NOTE | 2019-07-23 15:28 | NUR ---
NURSE NOTES: Received report from KAI Laguerre, pt. in bed awake, Appears to be alert to name- confused, call light within easy reach, bed in lowest position, bed locked in position and side rails up x's3, pt. appears to be sating well on Venturi mask 14L at Fio2 55%- no distress noted, Glucerna 1.2 running via left Nare at 65cc/hr- no residual noted,HOB elevated, pt. appears to be clean and dry, Left hand 20G IV intact and patent, bilateral wrist restraints removed- skin intact and pulses palpable, safety measures continued, will continue with plan of care.
--- NOTE | 2019-07-23 15:39 | NUR ---
HAND-OFF: Report given to Joe ribera.
[2019-07-23 16:00] VITALS: BP 148/71
--- NOTE | 2019-07-23 16:50 | Cardiology Progress Note ---
Assessment/Plan Problem List: (1) PVC (premature ventricular contraction) (2) Sepsis (3) Nosocomial pneumonia (4) History of CVA (cerebrovascular accident) (5) Acute metabolic encephalopathy (6) Hypertension Status: stable, progressing Status Narrative Bilateral pneumonia HTN Encephalopathy, ? dementia hx of CVA Assessment/Plan Continue treatment for pneumonia, ? aspiration, per primary team. Doubt chf , based on exam and echo showing nl LV function, wall motion and mild pulm hypertension Will start low dose amlodipine for HTN Subjective ROS Limited/Unobtainable: Yes Subjective Cardiology for Dr. Fletcher Pt alert/ confused. Objective Last 24 Hour Vital Signs Date Time Temp Pulse Resp B/P (MAP) Pulse Ox O2 Delivery O2 Flow Rate FiO2 07/23/19 16:00 14.0 55 07/23/19 16:00 Venturi Mask 14.0 07/23/19 12:00 97.7 77 20 149/77 (101) 100 07/23/19 12:00 Room Air 07/23/19 11:54 64 07/23/19 08:00 Room Air 07/23/19 08:00 98.2 71 20 163/86 (111) 98 07/23/19 08:00 14.0 07/23/19 07:54 65 07/23/19 04:00 Venturi Mask 14.0 07/23/19 04:00 66 07/23/19 04:00 97.5 70 20 159/68 (98) 100 07/23/19 04:00 14.0 07/23/19 00:00 Venturi Mask 14.0 07/23/19 00:00 14.0 07/23/19 00:00 97.7 66 20 159/70 (99) 100 07/23/19 00:00 62 07/22/19 20:00 97.7 68 20 116/53 (74) 96 07/22/19 20:00 Venturi Mask 14.0 07/22/19 20:00 62 07/22/19 20:00 14.0 07/22/19 19:08 96 Venturi Mask 10.0 45 General Appearance: WD/WN, alert EENT: PERRL/EOMI, other - ng tube Neck: supple, no JVD Rhythm: NSR, PVCs Cardiovascular: normal rate, regular rhythm, no gallop/murmur Respiratory/Chest: other - bilat rhonchi Abdomen: non tender, soft Extremities: no swelling Intake and Output 07/22/19 07/23/19 19:00 07:00 Intake Total 390 ml 630 ml Output Total 600 ml 200 ml Balance -210 ml 430 ml IV Total 630 ml Tube Feeding 390 ml Output Urine Total 600 ml 200 ml Laboratory Tests Test 07/23/19 04:27 White Blood Count 5.7 K/UL (4.8-10.8) Red Blood Count 3.37 M/UL (4.70-6.10) L Hemoglobin 8.4 G/DL (14.2-18.0) L Hematocrit 26.2 % (42.0-52.0) L Mean Corpuscular Volume 78 FL (80-99) L Mean Corpuscular Hemoglobin 25.1 PG (27.0-31.0) L Mean Corpuscular Hemoglobin Concent 32.2 G/DL (32.0-36.0) Red Cell Distribution Width 16.0 % (11.6-14.8) H Platelet Count 244 K/UL (150-450) Mean Platelet Volume 6.4 FL (6.5-10.1) L Neutrophils (%) (Auto) 55.9 % (45.0-75.0) Lymphocytes (%) (Auto) 25.2 % (20.0-45.0) Monocytes (%) (Auto) 11.0 % (1.0-10.0) H Eosinophils (%) (Auto) 7.3 % (0.0-3.0) H Basophils (%) (Auto) 0.6 % (0.0-2.0) Erythrocyte Sedimentation Rate 123 MM/HR (0-20) H Sodium Level 142 MMOL/L (136-145) Potassium Level 4.1 MMOL/L (3.5-5.1) Chloride Level 107 MMOL/L (98-107) Carbon Dioxide Level 25 MMOL/L (21-32) Anion Gap 10 mmol/L (5-15) Blood Urea Nitrogen 19 mg/dL (7-18) H Creatinine 1.2 MG/DL (0.55-1.30) Estimat Glomerular Filtration Rate > 60 mL/min (>60) Glucose Level 80 MG/DL (74-106) Calcium Level 9.2 MG/DL (8.5-10.1) Phosphorus Level 3.1 MG/DL (2.5-4.9) Magnesium Level 2.1 MG/DL (1.8-2.4) Total Bilirubin 0.4 MG/DL (0.2-1.0) Aspartate Amino Transf (AST/SGOT) 39 U/L (15-37) H Alanine Aminotransferase (ALT/SGPT) 43 U/L (12-78) Alkaline Phosphatase 127 U/L (46-116) H C-Reactive Protein, Quantitative 24.9 mg/dL (0.00-0.90) H Total Protein 7.3 G/DL (6.4-8.2) Albumin 1.9 G/DL (3.4-5.0) L Globulin 5.4 g/dL Albumin/Globulin Ratio 0.4 (1.0-2.7) L Michelle Mcwilliams MD Jul 23, 2019 16:50
--- NOTE | 2019-07-23 18:03 | Internal Med Progress Note ---
Subjective Date of Service: Jul 23, 2019 Physician Name Xander Bah Attending Physician Lamont Hayes MD Current Medications Medications (Trade) Dose Ordered Sig/Kike Route PRN Reason Start Time Stop Time Status Last Admin Dose Admin Acetaminophen (Tylenol) 650 mg Q4H PRN ORAL fever 07/21/19 05:30 08/17/19 05:29 Amlodipine Besylate (Norvasc) 2.5 mg DAILY NG 07/24/19 09:00 08/23/19 08:59 Cefepime HCl 1 gm/ Dextrose 55 ml @ 110 mls/hr Q24H IVPB 07/22/19 21:00 07/29/19 20:59 07/22/19 21:22 Folic Acid (Folate) 2 mg DAILY ORAL 07/21/19 09:00 08/19/19 11:29 07/21/19 08:47 Heparin Sodium (Porcine) (Heparin 5000 units/ml) 5,000 units EVERY 12 HOURS SUBQ 07/21/19 09:00 08/17/19 20:59 07/23/19 10:31 Iron Sucrose 100 mg/Sodium Chloride 60 ml @ 240 mls/hr BEDTIME IV 07/24/19 21:00 07/27/19 21:14 Lansoprazole (Prevacid) 30 mg BID NG 07/23/19 18:00 08/22/19 17:59 07/23/19 17:25 Levothyroxine Sodium (Synthroid) 50 mcg DAILY@0630 ORAL 07/21/19 06:30 08/18/19 06:29 07/22/19 06:11 Ondansetron HCl (Zofran) 4 mg Q6H PRN IVP Nausea & Vomiting 07/21/19 08:15 08/17/19 14:14 Polyethylene Glycol (Miralax) 17 gm DAILYPRN PRN ORAL Constipation 07/21/19 05:30 08/17/19 05:29 Quetiapine Fumarate (SEROqueL) 25 mg Q8H PRN ORAL agitation 07/21/19 05:30 08/17/19 05:29 07/21/19 22:29 Vancomycin HCl (Vanco rx to dose) 1 ea DAILY PRN MISC Per rx protocol 07/21/19 09:00 08/17/19 14:29 Vancomycin/Sodium Chloride 275 ml @ 183.333 mls/hr Q24H IVPB 07/22/19 14:00 07/27/19 13:59 07/23/19 13:57 Allergies: Coded Allergies: PENICILLINS (Verified Allergy, Unknown, 10/27/18) tolretas cephalosporins ROS Limited/Unobtainable: Yes Subjective 84 YO M admitted with altered mental status. Now pneumonia and severe sepsis. Cover for Int Med-Dr Hayes. [place] Objective Last Vital Signs Date Time Temp Pulse Resp B/P (MAP) Pulse Ox O2 Delivery O2 Flow Rate FiO2 07/23/19 16:00 14.0 55 07/23/19 16:00 96.8 71 20 148/71 (96) 95 07/23/19 16:00 Venturi Mask Laboratory Tests Test 07/23/19 04:27 White Blood Count 5.7 K/UL (4.8-10.8) Red Blood Count 3.37 M/UL (4.70-6.10) L Hemoglobin 8.4 G/DL (14.2-18.0) L Hematocrit 26.2 % (42.0-52.0) L Mean Corpuscular Volume 78 FL (80-99) L Mean Corpuscular Hemoglobin 25.1 PG (27.0-31.0) L Mean Corpuscular Hemoglobin Concent 32.2 G/DL (32.0-36.0) Red Cell Distribution Width 16.0 % (11.6-14.8) H Platelet Count 244 K/UL (150-450) Mean Platelet Volume 6.4 FL (6.5-10.1) L Neutrophils (%) (Auto) 55.9 % (45.0-75.0) Lymphocytes (%) (Auto) 25.2 % (20.0-45.0) Monocytes (%) (Auto) 11.0 % (1.0-10.0) H Eosinophils (%) (Auto) 7.3 % (0.0-3.0) H Basophils (%) (Auto) 0.6 % (0.0-2.0) Erythrocyte Sedimentation Rate 123 MM/HR (0-20) H Sodium Level 142 MMOL/L (136-145) Potassium Level 4.1 MMOL/L (3.5-5.1) Chloride Level 107 MMOL/L (98-107) Carbon Dioxide Level 25 MMOL/L (21-32) Anion Gap 10 mmol/L (5-15) Blood Urea Nitrogen 19 mg/dL (7-18) H Creatinine 1.2 MG/DL (0.55-1.30) Estimat Glomerular Filtration Rate > 60 mL/min (>60) Glucose Level 80 MG/DL (74-106) Calcium Level 9.2 MG/DL (8.5-10.1) Phosphorus Level 3.1 MG/DL (2.5-4.9) Magnesium Level 2.1 MG/DL (1.8-2.4) Total Bilirubin 0.4 MG/DL (0.2-1.0) Aspartate Amino Transf (AST/SGOT) 39 U/L (15-37) H Alanine Aminotransferase (ALT/SGPT) 43 U/L (12-78) Alkaline Phosphatase 127 U/L (46-116) H C-Reactive Protein, Quantitative 24.9 mg/dL (0.00-0.90) H Total Protein 7.3 G/DL (6.4-8.2) Albumin 1.9 G/DL (3.4-5.0) L Globulin 5.4 g/dL Albumin/Globulin Ratio 0.4 (1.0-2.7) L Intake and Output 07/22/19 07/23/19 19:00 07:00 Intake Total 390 ml 630 ml Output Total 600 ml 200 ml Balance -210 ml 430 ml IV Total 630 ml Tube Feeding 390 ml Output Urine Total 600 ml 200 ml Objective PHYSICAL EXAMINATION: GENERAL: The patient is a well-developed, well-nourished, thin-appearing male, who is in moderate respiratory distress. HEENT: Eyes, pupils are equal and responsive to light and accommodation. Extraocular movements are intact. NECK: Supple without lymphadenopathy. CHEST: Venturi mask; Lungs with bilateral wheezes and rhonchi; breath sounds decreased at bases CARDIOVASCULAR: Regular rhythm and rate. S1 and S2 are normal without murmurs, rubs, or gallops. ABDOMEN: Soft, nontender, and nondistended. Positive bowel sounds. No evidence of hepatosplenomegaly. Currently, no rebound or guarding noted. EXTREMITIES: Negative for clubbing, cyanosis, or edema. RECTAL/GENITAL: Not performed. NEUROLOGIC: Cranial nerves II through XII are grossly intact without focal deficits. Motor strength is 5/5 bilaterally. Deep tendon reflexes are 2+ plantar. Assessment/Plan Assessment/Plan ASSESSMENT: This is an 84-year-old male. 1. Bilateral pneumonia. 2. Respiratory failure. 3. Probable sepsis. 4. Altered mental status. 5. Diabetes type 2. 6. Hypothyroidism. 7. Cerebrovascular disease. 8. Acute renal failure. 9. Leukocytosis 10. Hypernatremia TREATMENT: 1. Respiratory failure/bilateral pneumonia. A Pulmonary consultation has been obtained with Dr. Vania Hui. The patient is currently admitted to the intensive care unit. The patient is currently on a venturi mask. The patient has been started empirically on vancomycin and ertapenem. A sputum culture is pending. Await sputum culture results. 2. Altered mental status. This is probably secondary to hypoxia secondary to pneumonia as above. 3. Diabetes type 2. The patient was admitted without antihyperglycemic medication. 4. Hypothyroidism. Continue Levoxyl as above. 5. Cerebrovascular disease. The patient is status post cerebrovascular accident. 6. Acute renal failure. This may be secondary to acute dehydration. The patient is currently receiving intravenous fluids. 7. Severe Sepsis. ABX=meropenem. ID=Xander Gill MD Jul 23, 2019 18:03
--- NOTE | 2019-07-23 19:58 | NUR ---
NURSE NOTES: pt. appears to be agitated and restless in bed- talk therapy provided, but unsuccessful - will administer medication in eMAR and continue to monitor pt.
[2019-07-23 20:00] VITALS: BP 139/74
[2019-07-23] MEDS ORDERED: Albuterol/Ipratropium 3ml neb HHN PRN (20:00)
[2019-07-23] MEDS: Cefepime HCl 1 GM in D5W 55 ML IVPB SCH (20:03)
[2019-07-24] VITALS: BP 145/64
[2019-07-24 04:00] VITALS: BP 152/65
[2019-07-24 04:50] LABS: BASOPHILS % (AUTO) 0.7 % (0.0-2.0); EOSINOPHILS % (AUTO) 8.1 % (0.0-3.0); HEMATOCRIT 28.4 % (42.0-52.0); HEMOGLOBIN 9.3 G/DL (14.2-18.0); LYMPHOCYTES % (AUTO) 23.6 % (20.0-45.0); MEAN CORPUSCULAR VOLUME 77 FL (80-99); MONOCYTES % (AUTO) 11.1 % (1.0-10.0); NEUTROPHILS % (AUTO) 56.5 % (45.0-75.0); PLATELET COUNT 257 K/UL (150-450); RED BLOOD COUNT 3.69 M/UL (4.70-6.10); RED CELL DISTRIBUTION WIDTH 15.8 % (11.6-14.8); WHITE BLOOD COUNT 4.3 K/UL (4.8-10.8)
[2019-07-24 05:32] LABS: ALANINE AMINOTRANSFERASE 38 U/L (12-78); ALBUMIN/GLOBULIN RATIO 0.4 (1.0-2.7); ALKALINE PHOSPHATASE 128 U/L (46-116); ANION GAP 8 mmol/L (5-15); ASPARTATE AMINO TRANSFERASE 42 U/L (15-37); BILIRUBIN,TOTAL 0.4 MG/DL (0.2-1.0); BLOOD UREA NITROGEN 19 mg/dL (7-18); CALCIUM 9.2 MG/DL (8.5-10.1); CARBON DIOXIDE 25 MMOL/L (21-32); CHLORIDE 107 MMOL/L (98-107); CREATININE 1.1 MG/DL (0.55-1.30); PHOSPHORUS 2.7 MG/DL (2.5-4.9); POTASSIUM 3.5 MMOL/L (3.5-5.1); SODIUM 140 MMOL/L (136-145)
--- NOTE | 2019-07-24 07:05 | NUR ---
HAND-OFF: Report given to HoneyRN, pt. remains stable and no signs of distress noted- Aware to f/u on abnormal am labs.
--- NOTE | 2019-07-24 07:06 | NUR ---
NURSE NOTES: Received bedside report from KAI Nunez. Observed patient in bed, opens eyes spontaneously. Patient receiving oxygen via Venturi Mask 14L, FiO2 55%. No respiratory distress noted. NGT on the right nares noted with infusing tube feeding at prescribed rate. HOB elevated. External catheter noted, intact, draining well to gravity. Left hand 20g IV intact, patent, asymptomatic. Bilateral soft wrist restraints noted, as ordered. No s/s of pain/discomfort at this time. Will continue plan of care and will continue to monitor patient. Addendum: 07/24/19 at 0755 by Honey Navarro RN Safety precautions in place: Bed locked, alarmed, and in lowest position, side rails up x3, and call light left within reach.
[2019-07-24 08:00] VITALS: BP 120/55
--- NOTE | 2019-07-24 08:27 | Pulmonology Progress Note ---
Assessment/Plan Assessment/Plan ASSESSMENT Sepsis Acute respiratory failure, requiring NRM, now on VM Bilateral pneumonia Acute metabolic encephalopathy UTI Diabetes mellitus type 2 Acute renal failure Cerebrovascular disease Hypothyroidism Hypernatremia Severe anemia Alzheimer dementia Anemia of iron deficiency [facility] OF C[facility] [place] O2 titrate to keep pulse ox above 92%, currently on Venturi mask , off NRM Pulmonary toilet abx as per ID SCX + Staph, Abi , UCX + Proteus , Strep viridans , BCX NGTD , repeated UCX negative fup with CXR Aspiration precaution NG TF Swallow evaluation noted, diet as per ST recommendation Monitor H&H with goal to keep hemoglobin above 7 Stool OB negative CEA WNL Anemia c/w AID, on venofer folic acid supplement DVT GI prophylaxis Gentle IV hydration monitor renal parameters, lites ,correct electrolytes as needed, avoid nephrotoxic bowel regimen elevated TSH ; dose of Synthroid increased, repeat TFT in 1 month case discussed and evaluated by supervising physician Subjective Allergies: Coded Allergies: PENICILLINS (Verified Allergy, Unknown, 10/27/18) tolretas cephalosporins Subjective On O2 via VM, pulse ox stable , unable to wean down so far afebrile, no leukocytosis Objective Last 24 Hour Vital Signs Date Time Temp Pulse Resp B/P (MAP) Pulse Ox O2 Delivery O2 Flow Rate FiO2 07/24/19 04:00 Venturi Mask 14.0 07/24/19 04:00 98.4 89 22 152/65 (94) 96 07/24/19 04:00 14.0 55 07/24/19 03:33 86 07/24/19 00:00 98.4 73 20 145/64 (91) 98 07/24/19 00:00 Venturi Mask 14.0 07/24/19 00:00 14.0 55 07/23/19 23:47 72 07/23/19 20:35 97 Venturi Mask 10.0 45 07/23/19 20:00 Venturi Mask 14.0 07/23/19 20:00 14.0 55 07/23/19 20:00 96.7 70 20 139/74 (95) 97 07/23/19 19:34 64 07/23/19 16:00 14.0 55 07/23/19 16:00 96.8 71 20 148/71 (96) 95 07/23/19 16:00 Venturi Mask 14.0 07/23/19 15:32 71 07/23/19 12:00 97.7 77 20 149/77 (101) 100 07/23/19 12:00 Room Air 07/23/19 11:54 64 Intake and Output 07/23/19 07/24/19 19:00 07:00 Intake Total 655 ml 721 ml Output Total 225 ml 900 ml Balance 430 ml -179 ml Free Water 50 ml IV Total 395 ml 55 ml Tube Feeding 260 ml 616 ml Output Urine Total 225 ml 900 ml # Voids 1 # Bowel Movements 2 Objective HEENT: normocephalic, atraumatic, anicteric, on VM Respiratory/Chest: decreased breath sounds Cardiovascular: normal rate Abdomen: soft, non tender Extremities: no edema Neurologic/Psychiatric: abnormal gait Musculoskeletal: atrophy Laboratory Tests 07/24/19 03:40: White Blood Count 4.3L, Red Blood Count 3.69L, Hemoglobin 9.3L, Hematocrit 28.4L , Mean Corpuscular Volume 77L, Mean Corpuscular Hemoglobin 25.1L, Mean Corpuscular Hemoglobin Concent 32.7, Red Cell Distribution Width 15.8H, Platelet Count 257, Mean Platelet Volume 6.3L, Neutrophils (%) (Auto) 56.5, Lymphocytes (%) (Auto) 23.6, Monocytes (%) (Auto) 11.1H, Eosinophils (%) (Auto) 8.1H, Basophils (%) (Auto) 0.7, Sodium Level 140, Potassium Level 3.5, Chloride Level 107, Carbon Dioxide Level 25, Anion Gap 8, Blood Urea Nitrogen 19H, Creatinine 1.1, Estimat Glomerular Filtration Rate > 60, Glucose Level 116H, Uric Acid 5.4, Calcium Level 9.2, Phosphorus Level 2.7, Magnesium Level 2.0, Total Bilirubin 0.4, Aspartate Amino Transf (AST/SGOT) 42H, Alanine Aminotransferase (ALT/SGPT) 38, Alkaline Phosphatase 128H, C-Reactive Protein, Quantitative 27.5H, Pro-B-Type Natriuretic Peptide 3823H, Total Protein 7.5, Albumin 2.0L, Globulin 5.5, Albumin/Globulin Ratio 0.4L Current Medications Medications (Trade) Dose Ordered Sig/Kike Route PRN Reason Start Time Stop Time Status Last Admin Dose Admin Acetaminophen (Tylenol) 650 mg Q4H PRN ORAL fever 07/21/19 05:30 08/17/19 05:29 Albuterol/ Ipratropium (Albuterol/ Ipratropium) 3 ml Q4H PRN HHN Shortness of Breath 07/23/19 20:00 07/28/19 19:59 Amlodipine Besylate (Norvasc) 2.5 mg DAILY NG 07/24/19 09:00 08/23/19 08:59 Cefepime HCl 1 gm/ Dextrose 55 ml @ 110 mls/hr Q24H IVPB 07/22/19 21:00 07/29/19 20:59 07/23/19 20:03 Folic Acid (Folate) 2 mg DAILY ORAL 07/21/19 09:00 08/19/19 11:29 07/21/19 08:47 Heparin Sodium (Porcine) (Heparin 5000 units/ml) 5,000 units EVERY 12 HOURS SUBQ 07/21/19 09:00 08/17/19 20:59 07/23/19 20:00 Iron Sucrose 100 mg/Sodium Chloride 60 ml @ 240 mls/hr BEDTIME IV 07/24/19 21:00 07/27/19 21:14 Lansoprazole (Prevacid) 30 mg BID NG 07/23/19 18:00 08/22/19 17:59 07/23/19 17:25 Levothyroxine Sodium (Synthroid) 50 mcg DAILY@0630 ORAL 07/21/19 06:30 08/18/19 06:29 07/24/19 05:31 Ondansetron HCl (Zofran) 4 mg Q6H PRN IVP Nausea & Vomiting 07/21/19 08:15 08/17/19 14:14 Polyethylene Glycol (Miralax) 17 gm DAILYPRN PRN ORAL Constipation 07/21/19 05:30 08/17/19 05:29 Quetiapine Fumarate (SEROqueL) 25 mg Q8H PRN ORAL agitation 07/21/19 05:30 08/17/19 05:29 07/23/19 20:00 Vancomycin HCl (Vanco rx to dose) 1 ea DAILY PRN MISC Per rx protocol 07/21/19 09:00 08/17/19 14:29 Vancomycin/Sodium Chloride 275 ml @ 183.333 mls/hr Q24H IVPB 07/22/19 14:00 07/27/19 13:59 07/23/19 13:57 Miranda Pimentel NP Jul 24, 2019 08:27
[2019-07-24] MEDS: Heparin 5000 units/ml inj SUBQ SCH ×2 (08:38→20:16)
[2019-07-24] MEDS ORDERED: NS 275ml ONE ×3 (10:25→11:01)
[2019-07-24] MEDS ORDERED: Tubing IV Secondary IV ONE ×2 (10:25→11:01)
--- NOTE | 2019-07-24 11:12 | Nephrology Progress Note ---
Assessment/Plan Problem List: (1) Acute renal failure (2) Severe anemia (3) Sepsis (4) Diabetes mellitus (5) Hypothyroidism Assessment Alexi Cr lowering 2.6 to 1.8 Sepsis / Pneumonia / UTI / Hypothermia Respiratory failure HypoThyroidism h/o CVA Anemia Dementia Plan DC Hydrate IV iron Phos supplement as needed antibiotics avoid nephrotoxics monitor renal parameters check TFTs- adjust synthroid dose Urine eos per orders Subjective ROS Limited/Unobtainable: No Constitutional: Reports: malaise, weakness Objective Objective Last 24 Hour Vital Signs Date Time Temp Pulse Resp B/P (MAP) Pulse Ox O2 Delivery O2 Flow Rate FiO2 07/24/19 08:34 75 122/55 07/24/19 08:00 99.1 74 25 120/55 (76) 94 07/24/19 08:00 Venturi Mask 14.0 07/24/19 08:00 98 Venturi Mask 10.0 45 07/24/19 08:00 14.0 55 07/24/19 07:44 78 07/24/19 04:00 Venturi Mask 14.0 07/24/19 04:00 98.4 89 22 152/65 (94) 96 07/24/19 04:00 14.0 55 07/24/19 03:33 86 07/24/19 00:00 98.4 73 20 145/64 (91) 98 07/24/19 00:00 Venturi Mask 14.0 07/24/19 00:00 14.0 55 07/23/19 23:47 72 07/23/19 20:35 97 Venturi Mask 10.0 45 07/23/19 20:00 Venturi Mask 14.0 07/23/19 20:00 14.0 55 07/23/19 20:00 96.7 70 20 139/74 (95) 97 07/23/19 19:34 64 07/23/19 16:00 14.0 55 07/23/19 16:00 96.8 71 20 148/71 (96) 95 07/23/19 16:00 Venturi Mask 14.0 07/23/19 15:32 71 07/23/19 12:00 97.7 77 20 149/77 (101) 100 07/23/19 12:00 Room Air 07/23/19 11:54 64 Intake and Output 07/23/19 07/24/19 19:00 07:00 Intake Total 655 ml 721 ml Output Total 225 ml 900 ml Balance 430 ml -179 ml Free Water 50 ml IV Total 395 ml 55 ml Tube Feeding 260 ml 616 ml Output Urine Total 225 ml 900 ml # Voids 1 # Bowel Movements 2 Current Medications Medications (Trade) Dose Ordered Sig/Kike Route PRN Reason Start Time Stop Time Status Last Admin Dose Admin Acetaminophen (Tylenol) 650 mg Q4H PRN ORAL fever 07/21/19 05:30 08/17/19 05:29 Albuterol/ Ipratropium (Albuterol/ Ipratropium) 3 ml Q4H PRN HHN Shortness of Breath 07/23/19 20:00 07/28/19 19:59 Amlodipine Besylate (Norvasc) 2.5 mg DAILY NG 07/24/19 09:00 08/23/19 08:59 07/24/19 08:34 Cefepime HCl 1 gm/ Dextrose 55 ml @ 110 mls/hr Q24H IVPB 07/22/19 21:00 07/29/19 20:59 07/23/19 20:03 Folic Acid (Folate) 2 mg DAILY ORAL 07/21/19 09:00 08/19/19 11:29 07/24/19 08:34 Heparin Sodium (Porcine) (Heparin 5000 units/ml) 5,000 units EVERY 12 HOURS SUBQ 07/21/19 09:00 08/17/19 20:59 07/24/19 08:38 Iron Sucrose 100 mg/Sodium Chloride 60 ml @ 240 mls/hr BEDTIME IV 07/24/19 21:00 07/27/19 21:14 Lansoprazole (Prevacid) 30 mg BID NG 07/23/19 18:00 08/22/19 17:59 07/24/19 08:34 Levothyroxine Sodium (Synthroid) 50 mcg DAILY@0630 ORAL 07/21/19 06:30 08/18/19 06:29 07/24/19 05:31 Ondansetron HCl (Zofran) 4 mg Q6H PRN IVP Nausea & Vomiting 07/21/19 08:15 08/17/19 14:14 Polyethylene Glycol (Miralax) 17 gm DAILYPRN PRN ORAL Constipation 07/21/19 05:30 08/17/19 05:29 Quetiapine Fumarate (SEROqueL) 25 mg Q8H PRN ORAL agitation 07/21/19 05:30 08/17/19 05:29 07/23/19 20:00 Vancomycin HCl (Vanco rx to dose) 1 ea DAILY PRN MISC Per rx protocol 07/21/19 09:00 08/17/19 14:29 Vancomycin/Sodium Chloride 275 ml @ 183.333 mls/hr Q24H IVPB 07/22/19 14:00 07/27/19 13:59 07/23/19 13:57 Laboratory Tests 07/24/19 03:40: White Blood Count 4.3L, Red Blood Count 3.69L, Hemoglobin 9.3L, Hematocrit 28.4L , Mean Corpuscular Volume 77L, Mean Corpuscular Hemoglobin 25.1L, Mean Corpuscular Hemoglobin Concent 32.7, Red Cell Distribution Width 15.8H, Platelet Count 257, Mean Platelet Volume 6.3L, Neutrophils (%) (Auto) 56.5, Lymphocytes (%) (Auto) 23.6, Monocytes (%) (Auto) 11.1H, Eosinophils (%) (Auto) 8.1H, Basophils (%) (Auto) 0.7, Sodium Level 140, Potassium Level 3.5, Chloride Level 107, Carbon Dioxide Level 25, Anion Gap 8, Blood Urea Nitrogen 19H, Creatinine 1.1, Estimat Glomerular Filtration Rate > 60, Glucose Level 116H, Uric Acid 5.4, Calcium Level 9.2, Phosphorus Level 2.7, Magnesium Level 2.0, Total Bilirubin 0.4, Aspartate Amino Transf (AST/SGOT) 42H, Alanine Aminotransferase (ALT/SGPT) 38, Alkaline Phosphatase 128H, C-Reactive Protein, Quantitative 27.5H, Pro-B-Type Natriuretic Peptide 3823H, Total Protein 7.5, Albumin 2.0L, Globulin 5.5, Albumin/Globulin Ratio 0.4L Height (Feet): 6 Height (Inches): 1.00 Weight (Pounds): 149 Cardiovascular: normal rate Respiratory/Chest: decreased breath sounds Objective no change Clovis Benites MD Jul 24, 2019 11:12
[2019-07-24 12:00] VITALS: BP 132/54
[2019-07-24] MEDS: Vancomycin 1.25gm/NS Premix q24h IVPB SCH (13:30)
[2019-07-24 16:00] VITALS: BP 135/67
--- NOTE | 2019-07-24 16:35 | Internal Med Progress Note ---
Subjective Date of Service: Jul 24, 2019 Physician Name Xander Bah Attending Physician Lamont Hayes MD Current Medications Medications (Trade) Dose Ordered Sig/Kike Route PRN Reason Start Time Stop Time Status Last Admin Dose Admin Acetaminophen (Tylenol) 650 mg Q4H PRN ORAL fever 07/21/19 05:30 08/17/19 05:29 Albuterol/ Ipratropium (Albuterol/ Ipratropium) 3 ml Q4H PRN HHN Shortness of Breath 07/23/19 20:00 07/28/19 19:59 07/24/19 15:41 Amlodipine Besylate (Norvasc) 2.5 mg DAILY NG 07/24/19 09:00 08/23/19 08:59 07/24/19 08:34 Cefepime HCl 1 gm/ Dextrose 55 ml @ 110 mls/hr Q24H IVPB 07/22/19 21:00 07/29/19 20:59 07/23/19 20:03 Folic Acid (Folate) 2 mg DAILY ORAL 07/21/19 09:00 08/19/19 11:29 07/24/19 08:34 Heparin Sodium (Porcine) (Heparin 5000 units/ml) 5,000 units EVERY 12 HOURS SUBQ 07/21/19 09:00 08/17/19 20:59 07/24/19 08:38 Iron Sucrose 100 mg/Sodium Chloride 60 ml @ 240 mls/hr BEDTIME IV 07/24/19 21:00 07/27/19 21:14 Lansoprazole (Prevacid) 30 mg BID NG 07/23/19 18:00 08/22/19 17:59 07/24/19 08:34 Levothyroxine Sodium (Synthroid) 50 mcg DAILY@0630 ORAL 07/21/19 06:30 08/18/19 06:29 07/24/19 05:31 Ondansetron HCl (Zofran) 4 mg Q6H PRN IVP Nausea & Vomiting 07/21/19 08:15 08/17/19 14:14 Polyethylene Glycol (Miralax) 17 gm DAILYPRN PRN ORAL Constipation 07/21/19 05:30 08/17/19 05:29 Quetiapine Fumarate (SEROqueL) 25 mg Q8H PRN ORAL agitation 07/21/19 05:30 08/17/19 05:29 07/23/19 20:00 Vancomycin HCl (Vanco rx to dose) 1 ea DAILY PRN MISC Per rx protocol 07/21/19 09:00 08/17/19 14:29 Vancomycin/Sodium Chloride 275 ml @ 183.333 mls/hr Q24H IVPB 07/22/19 14:00 07/27/19 13:59 07/24/19 13:30 Allergies: Coded Allergies: PENICILLINS (Verified Allergy, Unknown, 10/27/18) tolretas cephalosporins ROS Limited/Unobtainable: Yes Subjective 84 YO M admitted with altered mental status. Now pneumonia and severe sepsis. Cover for Int Med-Dr Hayes. [place] Objective Last Vital Signs Date Time Temp Pulse Resp B/P (MAP) Pulse Ox O2 Delivery O2 Flow Rate FiO2 07/24/19 16:00 14.0 55 07/24/19 16:00 Venturi Mask 07/24/19 15:42 73 18 96 75 18 90 07/24/19 12:00 99.3 132/54 (80) Laboratory Tests Test 07/24/19 03:40 White Blood Count 4.3 K/UL (4.8-10.8) L Red Blood Count 3.69 M/UL (4.70-6.10) L Hemoglobin 9.3 G/DL (14.2-18.0) L Hematocrit 28.4 % (42.0-52.0) L Mean Corpuscular Volume 77 FL (80-99) L Mean Corpuscular Hemoglobin 25.1 PG (27.0-31.0) L Mean Corpuscular Hemoglobin Concent 32.7 G/DL (32.0-36.0) Red Cell Distribution Width 15.8 % (11.6-14.8) H Platelet Count 257 K/UL (150-450) Mean Platelet Volume 6.3 FL (6.5-10.1) L Neutrophils (%) (Auto) 56.5 % (45.0-75.0) Lymphocytes (%) (Auto) 23.6 % (20.0-45.0) Monocytes (%) (Auto) 11.1 % (1.0-10.0) H Eosinophils (%) (Auto) 8.1 % (0.0-3.0) H Basophils (%) (Auto) 0.7 % (0.0-2.0) Sodium Level 140 MMOL/L (136-145) Potassium Level 3.5 MMOL/L (3.5-5.1) Chloride Level 107 MMOL/L (98-107) Carbon Dioxide Level 25 MMOL/L (21-32) Anion Gap 8 mmol/L (5-15) Blood Urea Nitrogen 19 mg/dL (7-18) H Creatinine 1.1 MG/DL (0.55-1.30) Estimat Glomerular Filtration Rate > 60 mL/min (>60) Glucose Level 116 MG/DL (74-106) H Uric Acid 5.4 MG/DL (2.6-7.2) Calcium Level 9.2 MG/DL (8.5-10.1) Phosphorus Level 2.7 MG/DL (2.5-4.9) Magnesium Level 2.0 MG/DL (1.8-2.4) Total Bilirubin 0.4 MG/DL (0.2-1.0) Aspartate Amino Transf (AST/SGOT) 42 U/L (15-37) H Alanine Aminotransferase (ALT/SGPT) 38 U/L (12-78) Alkaline Phosphatase 128 U/L (46-116) H C-Reactive Protein, Quantitative 27.5 mg/dL (0.00-0.90) H Pro-B-Type Natriuretic Peptide 3823 pg/mL (0-125) H Total Protein 7.5 G/DL (6.4-8.2) Albumin 2.0 G/DL (3.4-5.0) L Globulin 5.5 g/dL Albumin/Globulin Ratio 0.4 (1.0-2.7) L Intake and Output 07/23/19 07/24/19 19:00 07:00 Intake Total 655 ml 721 ml Output Total 225 ml 900 ml Balance 430 ml -179 ml Free Water 50 ml IV Total 395 ml 55 ml Tube Feeding 260 ml 616 ml Output Urine Total 225 ml 900 ml # Voids 1 # Bowel Movements 2 Objective PHYSICAL EXAMINATION: GENERAL: The patient is a well-developed, well-nourished, thin-appearing male, who is in moderate respiratory distress. HEENT: Eyes, pupils are equal and responsive to light and accommodation. Extraocular movements are intact. NECK: Supple without lymphadenopathy. CHEST: Venturi mask; Lungs with bilateral wheezes and rhonchi; breath sounds decreased at bases CARDIOVASCULAR: Regular rhythm and rate. S1 and S2 are normal without murmurs, rubs, or gallops. ABDOMEN: Soft, nontender, and nondistended. Positive bowel sounds. No evidence of hepatosplenomegaly. Currently, no rebound or guarding noted. EXTREMITIES: Negative for clubbing, cyanosis, or edema. RECTAL/GENITAL: Not performed. NEUROLOGIC: Cranial nerves II through XII are grossly intact without focal deficits. Motor strength is 5/5 bilaterally. Deep tendon reflexes are 2+ plantar. Assessment/Plan Assessment/Plan ASSESSMENT: This is an 84-year-old male. 1. Bilateral pneumonia. 2. Respiratory failure. 3. Probable sepsis. 4. Altered mental status. 5. Diabetes type 2. 6. Hypothyroidism. 7. Cerebrovascular disease. 8. Acute renal failure. 9. Leukocytosis 10. Hypernatremia TREATMENT: 1. Respiratory failure/bilateral pneumonia. A Pulmonary consultation has been obtained with Dr. Vania Hui. The patient is currently admitted to the intensive care unit. The patient is currently on a venturi mask. The patient has been started empirically on vancomycin and ertapenem. A sputum culture =MRSA. ABX=vanco and meropenem per ID=Dr Matias 2. Altered mental status. This is probably secondary to hypoxia secondary to pneumonia as above. 3. Diabetes type 2. The patient was admitted without antihyperglycemic medication. 4. Hypothyroidism. Continue Levoxyl as above. 5. Cerebrovascular disease. The patient is status post cerebrovascular accident. 6. Acute renal failure. This may be secondary to acute dehydration. The patient is currently receiving intravenous fluids. 7. Severe Sepsis. ABX=cefepime, vanco and meropenem. ID=Xander Mckeon MD Jul 24, 2019 16:35
--- NOTE | 2019-07-24 19:03 | NUR ---
HAND-OFF: Report given to KAI Nunez. Endorsed plan of care. Patient in stable condition.
--- NOTE | 2019-07-24 19:26 | NUR ---
NURSE NOTES: Received report from Honey RN, pt. in bed awake, Appears to be alert to name- confused, call light within easy reach, bed in lowest position, bed locked in position and side rails up x's3, pt. appears to be sating well on Venturi mask 14L at Fio2 55%- no distress noted, Glucerna 1.2 running via left Nare at 65cc/hr- no residual noted,HOB elevated, pt. appears to be clean and dry, comfort measures provided, Left hand 20G IV intact and patent, bilateral wrist restraints removed- skin intact and bilateral pulses palpable, safety measures continued, will continue with plan of care.
[2019-07-24 20:00] VITALS: BP 141/58
[2019-07-24] MEDS: Iron Sucrose 100 MG in NS 55 ML IV SCH (20:15)
--- NOTE | 2019-07-24 20:23 | Cardiology Progress Note ---
Assessment/Plan Problem List: (1) PVC (premature ventricular contraction) (2) Sepsis (3) Nosocomial pneumonia (4) History of CVA (cerebrovascular accident) (5) Acute metabolic encephalopathy (6) Hypertension Status: stable, progressing Status Narrative Bilateral pneumonia HTN Encephalopathy, ? dementia hx of CVA Assessment/Plan Continue treatment for pneumonia, ? aspiration, per primary team. Doubt chf , based on exam and echo showing nl LV function, wall motion and mild pulm hypertension BP improved , on low dose amlodipine Subjective ROS Limited/Unobtainable: Yes Subjective Cardiology for Dr. Fletcher Pt alert/ not oriented to place, time. On FM o2 Objective Last 24 Hour Vital Signs Date Time Temp Pulse Resp B/P (MAP) Pulse Ox O2 Delivery O2 Flow Rate FiO2 07/24/19 16:00 99.1 79 24 135/67 (89) 98 07/24/19 16:00 14.0 55 07/24/19 16:00 Venturi Mask 14.0 07/24/19 15:42 73 18 96 Venturi Mask 15.0 55 75 18 90 07/24/19 15:23 75 07/24/19 12:00 99.3 73 24 132/54 (80) 97 07/24/19 12:00 14.0 55 07/24/19 12:00 Venturi Mask 14.0 07/24/19 11:46 80 07/24/19 08:34 75 122/55 07/24/19 08:00 99.1 74 25 120/55 (76) 94 07/24/19 08:00 Venturi Mask 14.0 07/24/19 08:00 98 Venturi Mask 10.0 45 07/24/19 08:00 14.0 55 07/24/19 07:44 78 07/24/19 04:00 Venturi Mask 14.0 07/24/19 04:00 98.4 89 22 152/65 (94) 96 07/24/19 04:00 14.0 55 07/24/19 03:33 86 07/24/19 00:00 98.4 73 20 145/64 (91) 98 07/24/19 00:00 Venturi Mask 14.0 07/24/19 00:00 14.0 55 07/23/19 23:47 72 07/23/19 20:35 97 Venturi Mask 10.0 45 General Appearance: no apparent distress, alert, other - FM o2 NGT Neck: supple, no JVD Rhythm: NSR Cardiovascular: normal rate, regular rhythm, no gallop/murmur Respiratory/Chest: other - scattered rhonchi bilat Abdomen: non tender, soft Extremities: no swelling Intake and Output 07/23/19 07/24/19 18:59 06:59 Intake Total 630 ml 754 ml Output Total 225 ml 900 ml Balance 405 ml -146 ml Free Water 50 ml IV Total 435 ml 55 ml Tube Feeding 195 ml 649 ml Output Urine Total 225 ml 900 ml # Voids 1 # Bowel Movements 2 Laboratory Tests Test 07/24/19 03:40 White Blood Count 4.3 K/UL (4.8-10.8) L Red Blood Count 3.69 M/UL (4.70-6.10) L Hemoglobin 9.3 G/DL (14.2-18.0) L Hematocrit 28.4 % (42.0-52.0) L Mean Corpuscular Volume 77 FL (80-99) L Mean Corpuscular Hemoglobin 25.1 PG (27.0-31.0) L Mean Corpuscular Hemoglobin Concent 32.7 G/DL (32.0-36.0) Red Cell Distribution Width 15.8 % (11.6-14.8) H Platelet Count 257 K/UL (150-450) Mean Platelet Volume 6.3 FL (6.5-10.1) L Neutrophils (%) (Auto) 56.5 % (45.0-75.0) Lymphocytes (%) (Auto) 23.6 % (20.0-45.0) Monocytes (%) (Auto) 11.1 % (1.0-10.0) H Eosinophils (%) (Auto) 8.1 % (0.0-3.0) H Basophils (%) (Auto) 0.7 % (0.0-2.0) Sodium Level 140 MMOL/L (136-145) Potassium Level 3.5 MMOL/L (3.5-5.1) Chloride Level 107 MMOL/L (98-107) Carbon Dioxide Level 25 MMOL/L (21-32) Anion Gap 8 mmol/L (5-15) Blood Urea Nitrogen 19 mg/dL (7-18) H Creatinine 1.1 MG/DL (0.55-1.30) Estimat Glomerular Filtration Rate > 60 mL/min (>60) Glucose Level 116 MG/DL (74-106) H Uric Acid 5.4 MG/DL (2.6-7.2) Calcium Level 9.2 MG/DL (8.5-10.1) Phosphorus Level 2.7 MG/DL (2.5-4.9) Magnesium Level 2.0 MG/DL (1.8-2.4) Total Bilirubin 0.4 MG/DL (0.2-1.0) Aspartate Amino Transf (AST/SGOT) 42 U/L (15-37) H Alanine Aminotransferase (ALT/SGPT) 38 U/L (12-78) Alkaline Phosphatase 128 U/L (46-116) H C-Reactive Protein, Quantitative 27.5 mg/dL (0.00-0.90) H Pro-B-Type Natriuretic Peptide 3823 pg/mL (0-125) H Total Protein 7.5 G/DL (6.4-8.2) Albumin 2.0 G/DL (3.4-5.0) L Globulin 5.5 g/dL Albumin/Globulin Ratio 0.4 (1.0-2.7) L Michelle Mcwilliams MD Jul 24, 2019 20:22
[2019-07-24] MEDS: Cefepime HCl 1 GM in D5W 55 ML IVPB SCH (21:03)
--- NOTE | 2019-07-24 23:50 | NUR ---
NURSE NOTES: pt. appears to be agitated and restless in bed- talk therapy provided, but unsuccessful -comfort measures provided, but unsuccessful, will administer medication in eMAR and continue to monitor pt.
[2019-07-25] VITALS: BP 146/52
[2019-07-25 04:00] VITALS: BP 151/59
[2019-07-25 05:27] LABS: BASOPHILS % (AUTO) 0.9 % (0.0-2.0); HEMATOCRIT 26.6 % (42.0-52.0); HEMOGLOBIN 8.6 G/DL (14.2-18.0); LYMPHOCYTES % (AUTO) 26.1 % (20.0-45.0); MEAN CORPUSCULAR VOLUME 77 FL (80-99); MONOCYTES % (AUTO) 12.7 % (1.0-10.0); NEUTROPHILS % (AUTO) 51.4 % (45.0-75.0); PLATELET COUNT 243 K/UL (150-450); RED BLOOD COUNT 3.44 M/UL (4.70-6.10); RED CELL DISTRIBUTION WIDTH 15.4 % (11.6-14.8); WHITE BLOOD COUNT 3.8 K/UL (4.8-10.8)
[2019-07-25 05:44] LABS: ANION GAP 6 mmol/L (5-15); BLOOD UREA NITROGEN 18 mg/dL (7-18); CARBON DIOXIDE 28 MMOL/L (21-32); CHLORIDE 109 MMOL/L (98-107); POTASSIUM 3.8 MMOL/L (3.5-5.1); SODIUM 143 MMOL/L (136-145)
--- NOTE | 2019-07-25 06:54 | NUR ---
HAND-OFF: Report given to Honey RN, pt. remains stable and no signs of distress noted- aware to f/u on abnormal am labs.
--- NOTE | 2019-07-25 06:58 | NUR ---
NURSE NOTES: Received bedside report from KAI Nunez. Observed patient in bed, opens eyes spontaneously. Patient receiving oxygen via Venturi Mask 14L, FiO2 55%. No respiratory distress noted. NGT on the right nares noted, intact, asymptomatic, with infusing tube feeding at prescribed rate. HOB elevated. External catheter noted, intact, draining well to gravity. Left hand 20g IV patent and asymptomatic. Bilateral soft wrist restraints noted, as ordered. No s/s of pain/discomfort at this time. Bed locked, alarmed, and in lowest position, side rails up x3, and call light left within reach. Will continue plan of care and will continue to monitor patient.
[2019-07-25 08:00] VITALS: BP 149/56
[2019-07-25] MEDS: Heparin 5000 units/ml inj SUBQ SCH ×2 (08:35→20:08)
--- NOTE | 2019-07-25 09:16 | Pulmonology Progress Note ---
Assessment/Plan Assessment/Plan ASSESSMENT Sepsis Acute respiratory failure, requiring NRM, now on VM Bilateral pneumonia Acute metabolic encephalopathy UTI Diabetes mellitus type 2 Acute renal failure Cerebrovascular disease Hypothyroidism Hypernatremia Severe anemia Alzheimer dementia Anemia of iron deficiency PLAN OF CARE [facility] O2 titrate to keep pulse ox above 92%, currently on Venturi mask , off NRM RT to try weaning to O2 fup with CXR this am -pending pulmonary toilet aspiration precautions TF via NGT abx as per ID SCX + Staph, Abi , UCX + Proteus , Strep viridans , BCX NGTD , repeated UCX negative fup with CXR swallow evaluation noted, monitor H&H with goal to keep hemoglobin above 7 stool OB negative CEA WNL anemia c/w AID, on venofer folic acid supplement DVT GI prophylaxis gentle IV hydration monitor renal parameters, lites ,correct electrolytes as needed, avoid nephrotoxic bowel regimen elevated TSH ; dose of Synthroid increased, repeat TFT in 1 month case discussed and evaluated by supervising physician Subjective Allergies: Coded Allergies: PENICILLINS (Verified Allergy, Unknown, 10/27/18) tolretas cephalosporins Subjective On O2 via VM, pulse ox stable , unable to wean down so far afebrile, no leukocytosis Objective Last 24 Hour Vital Signs Date Time Temp Pulse Resp B/P (MAP) Pulse Ox O2 Delivery O2 Flow Rate FiO2 07/25/19 08:33 65 149/56 07/25/19 08:00 Venturi Mask 14.0 07/25/19 08:00 14.0 55 07/25/19 08:00 98.6 65 20 149/56 (87) 98 07/25/19 07:35 59 07/25/19 04:00 Venturi Mask 14.0 07/25/19 04:00 98.7 62 20 151/59 (89) 98 07/25/19 04:00 14.0 55 07/25/19 03:43 63 07/25/19 00:00 14.0 55 07/25/19 00:00 97.6 65 20 146/52 (83) 100 07/25/19 00:00 Venturi Mask 14.0 07/24/19 23:32 60 07/24/19 20:00 98 Venturi Mask 10.0 45 07/24/19 20:00 Venturi Mask 14.0 07/24/19 20:00 14.0 55 07/24/19 20:00 98.9 63 20 141/58 (85) 100 07/24/19 19:38 46 07/24/19 16:00 99.1 79 24 135/67 (89) 98 07/24/19 16:00 14.0 55 07/24/19 16:00 Venturi Mask 14.0 07/24/19 15:42 73 18 96 Venturi Mask 15.0 55 75 18 90 07/24/19 15:23 75 07/24/19 12:00 99.3 73 24 132/54 (80) 97 07/24/19 12:00 14.0 55 07/24/19 12:00 Venturi Mask 14.0 07/24/19 11:46 80 Intake and Output 07/24/19 07/25/19 19:00 07:00 Intake Total 930 ml 1050 ml Output Total 500 ml 500 ml Balance 430 ml 550 ml Free Water 150 ml 50 ml IV Total 350 ml Tube Feeding 780 ml 650 ml Output Urine Total 500 ml 500 ml # Bowel Movements 1 1 Objective HEENT: normocephalic, atraumatic, anicteric, on VM, NGT with TF Respiratory/Chest: decreased breath sounds Cardiovascular: normal rate Abdomen: soft, non tender Extremities: no edema Neurologic/Psychiatric: abnormal gait Musculoskeletal: atrophy Laboratory Tests 07/25/19 01:00: Urine Eosinophils None seen 07/25/19 03:40: White Blood Count 3.8L, Red Blood Count 3.44L, Hemoglobin 8.6L, Hematocrit 26.6L , Mean Corpuscular Volume 77L, Mean Corpuscular Hemoglobin 24.9L, Mean Corpuscular Hemoglobin Concent 32.3, Red Cell Distribution Width 15.4H, Platelet Count 243, Mean Platelet Volume 5.9L, Neutrophils (%) (Auto) 51.4, Lymphocytes (%) (Auto) 26.1, Monocytes (%) (Auto) 12.7H, Eosinophils (%) (Auto) 9.0H, Basophils (%) (Auto) 0.9, Sodium Level 143, Potassium Level 3.8, Chloride Level 109H, Carbon Dioxide Level 28, Anion Gap 6, Blood Urea Nitrogen 18, Creatinine 1.0, Estimat Glomerular Filtration Rate > 60, Glucose Level 113H, Calcium Level 9.0 Current Medications Medications (Trade) Dose Ordered Sig/Kike Route PRN Reason Start Time Stop Time Status Last Admin Dose Admin Acetaminophen (Tylenol) 650 mg Q4H PRN ORAL fever 07/21/19 05:30 08/17/19 05:29 Albuterol/ Ipratropium (Albuterol/ Ipratropium) 3 ml Q4H PRN HHN Shortness of Breath 07/23/19 20:00 07/28/19 19:59 07/24/19 15:41 Amlodipine Besylate (Norvasc) 2.5 mg DAILY NG 07/24/19 09:00 08/23/19 08:59 07/25/19 08:33 Cefepime HCl 1 gm/ Dextrose 55 ml @ 110 mls/hr Q24H IVPB 07/22/19 21:00 07/29/19 20:59 07/24/19 21:03 Folic Acid (Folate) 2 mg DAILY ORAL 07/21/19 09:00 08/19/19 11:29 07/25/19 08:32 Heparin Sodium (Porcine) (Heparin 5000 units/ml) 5,000 units EVERY 12 HOURS SUBQ 07/21/19 09:00 08/17/19 20:59 07/25/19 08:35 Iron Sucrose 100 mg/Sodium Chloride 60 ml @ 240 mls/hr BEDTIME IV 07/24/19 21:00 07/27/19 21:14 07/24/19 20:15 Lansoprazole (Prevacid) 30 mg BID NG 07/23/19 18:00 08/22/19 17:59 07/25/19 08:32 Levothyroxine Sodium (Synthroid) 50 mcg DAILY@0630 ORAL 07/21/19 06:30 08/18/19 06:29 07/25/19 06:00 Ondansetron HCl (Zofran) 4 mg Q6H PRN IVP Nausea & Vomiting 07/21/19 08:15 08/17/19 14:14 Polyethylene Glycol (Miralax) 17 gm DAILYPRN PRN ORAL Constipation 07/21/19 05:30 08/17/19 05:29 Quetiapine Fumarate (SEROqueL) 25 mg Q8H PRN ORAL agitation 07/21/19 05:30 08/17/19 05:29 07/24/19 23:50 Vancomycin HCl (Vanco rx to dose) 1 ea DAILY PRN MISC Per rx protocol 07/21/19 09:00 08/17/19 14:29 Vancomycin/Sodium Chloride 275 ml @ 183.333 mls/hr Q24H IVPB 07/22/19 14:00 07/27/19 13:59 07/24/19 13:30 Miranda Pimentel NP Jul 25, 2019 09:16
--- NOTE | 2019-07-25 10:31 | Nephrology Progress Note ---
Assessment/Plan Problem List: (1) Acute renal failure (2) Severe anemia (3) Sepsis (4) Diabetes mellitus (5) Hypothyroidism Assessment Alexi Cr lowering 2.6 to 1.8 Sepsis / Pneumonia / UTI / Hypothermia Respiratory failure HypoThyroidism h/o CVA Anemia Dementia Plan DC Hydrate IV iron Phos supplement as needed antibiotics avoid nephrotoxics monitor renal parameters check TFTs- adjust synthroid dose Urine eos per orders Subjective ROS Limited/Unobtainable: Yes Objective Objective Last 24 Hour Vital Signs Date Time Temp Pulse Resp B/P (MAP) Pulse Ox O2 Delivery O2 Flow Rate FiO2 07/25/19 08:33 65 149/56 07/25/19 08:00 Venturi Mask 14.0 07/25/19 08:00 14.0 55 07/25/19 08:00 98.6 65 20 149/56 (87) 98 07/25/19 07:35 59 07/25/19 04:00 Venturi Mask 14.0 07/25/19 04:00 98.7 62 20 151/59 (89) 98 07/25/19 04:00 14.0 55 07/25/19 03:43 63 07/25/19 00:00 14.0 55 07/25/19 00:00 97.6 65 20 146/52 (83) 100 07/25/19 00:00 Venturi Mask 14.0 07/24/19 23:32 60 07/24/19 20:00 98 Venturi Mask 10.0 45 07/24/19 20:00 Venturi Mask 14.0 07/24/19 20:00 14.0 55 07/24/19 20:00 98.9 63 20 141/58 (85) 100 07/24/19 19:38 46 07/24/19 16:00 99.1 79 24 135/67 (89) 98 07/24/19 16:00 14.0 55 07/24/19 16:00 Venturi Mask 14.0 07/24/19 15:42 73 18 96 Venturi Mask 15.0 55 75 18 90 07/24/19 15:23 75 07/24/19 12:00 99.3 73 24 132/54 (80) 97 07/24/19 12:00 14.0 55 07/24/19 12:00 Venturi Mask 14.0 07/24/19 11:46 80 Intake and Output 07/24/19 07/25/19 19:00 07:00 Intake Total 930 ml 1050 ml Output Total 500 ml 500 ml Balance 430 ml 550 ml Free Water 150 ml 50 ml IV Total 350 ml Tube Feeding 780 ml 650 ml Output Urine Total 500 ml 500 ml # Bowel Movements 1 1 Laboratory Tests 07/25/19 01:00: Urine Eosinophils None seen 07/25/19 03:40: White Blood Count 3.8L, Red Blood Count 3.44L, Hemoglobin 8.6L, Hematocrit 26.6L , Mean Corpuscular Volume 77L, Mean Corpuscular Hemoglobin 24.9L, Mean Corpuscular Hemoglobin Concent 32.3, Red Cell Distribution Width 15.4H, Platelet Count 243, Mean Platelet Volume 5.9L, Neutrophils (%) (Auto) 51.4, Lymphocytes (%) (Auto) 26.1, Monocytes (%) (Auto) 12.7H, Eosinophils (%) (Auto) 9.0H, Basophils (%) (Auto) 0.9, Sodium Level 143, Potassium Level 3.8, Chloride Level 109H, Carbon Dioxide Level 28, Anion Gap 6, Blood Urea Nitrogen 18, Creatinine 1.0, Estimat Glomerular Filtration Rate > 60, Glucose Level 113H, Calcium Level 9.0 Height (Feet): 6 Height (Inches): 1.00 Weight (Pounds): 150 General Appearance: no apparent distress EENT: other - NG feeding Cardiovascular: normal rate Respiratory/Chest: decreased breath sounds Abdomen: distended Genitourinary/Rectal: other - condom cath Objective no change Clovis Benites MD Jul 25, 2019 10:31
--- NOTE | 2019-07-25 11:21 | Diagnostic Imaging Report ---
Indication: Shortness of breath Technique: One view of the chest Comparison: 07/22/2019 Findings: Stable satisfactory position of enteric tube. Interim marked enlargement of right pleural effusion. Left pleural effusion and bilateral interstitial and airspace disease appears similar to the previous study. The heart is borderline enlarged. Impression: Markedly increased right basilar opacity, likely increasing pleural fluid Other stable findings as described
[2019-07-25 12:00] VITALS: BP 130/60
--- NOTE | 2019-07-25 12:02 | Infectious Diseases Prog Note ---
Assessment/Plan Assessment/Plan Assessment: Severe sepsis Pneumonia Probable UTI -07/25 CXR: Markedly increased right basilar opacity, likely increasing pleural fluid -07/22 CXR: Worsening CHF -u/a wbc 15-20, nit neg, leuk +3; ucx <10k Proteus sp (R Amp, ancef, macrobid ; otherwise), 70-80K S. viridans -07/19 CXR: marked worsening of pleural and parenchymal disease at the right lung base.There is also increasing parenchymal consolidation and atelectasis in the left infrahilar region. -CXR: Perihilar and basilar infiltrates. Findings suspicious for pneumonia. -influenza sc neg -Bcx NTD -sp cx MRSA, C. albicans -legionella ag urine neg Hypothermia, SP Leukocytosis, SP Acute respiratory failure, on NRB mask/VEnturi mask Lactic acidosis, SP RAMAN, SP Dm2 HTN non verbal hypothyroidism CVA hx of UTI anemia dementia fdc resident Plan: -Continue empiric IV Vancomycin #/ for MRSA PNA Cefepime #4 (abx d#/) for UTI and PNA -07/22 SP Barbara #4 -07/19 SP Ertapenem #2 -07/18 SP IV Amikacin x1, Levaquin x1 -f/u cx -Monitor CBC/CMP, temperatures -aspiration precautions Thank you for this consultation. Will continue to follow along with you. Subjective Allergies: Coded Allergies: PENICILLINS (Verified Allergy, Unknown, 10/27/18) tolretas cephalosporins Subjective afebrile mild leukocytosis reamains on VM Objective Vital Signs Last 24 Hour Vital Signs Date Time Temp Pulse Resp B/P (MAP) Pulse Ox O2 Delivery O2 Flow Rate FiO2 07/25/19 08:33 65 149/56 07/25/19 08:00 Venturi Mask 14.0 07/25/19 08:00 14.0 55 07/25/19 08:00 98.6 65 20 149/56 (87) 98 07/25/19 07:35 59 07/25/19 04:00 Venturi Mask 14.0 07/25/19 04:00 98.7 62 20 151/59 (89) 98 07/25/19 04:00 14.0 55 07/25/19 03:43 63 07/25/19 00:00 14.0 55 07/25/19 00:00 97.6 65 20 146/52 (83) 100 07/25/19 00:00 Venturi Mask 14.0 07/24/19 23:32 60 07/24/19 20:00 98 Venturi Mask 10.0 45 07/24/19 20:00 Venturi Mask 14.0 07/24/19 20:00 14.0 55 07/24/19 20:00 98.9 63 20 141/58 (85) 100 07/24/19 19:38 46 07/24/19 16:00 99.1 79 24 135/67 (89) 98 07/24/19 16:00 14.0 55 07/24/19 16:00 Venturi Mask 14.0 07/24/19 15:42 73 18 96 Venturi Mask 15.0 55 75 18 90 07/24/19 15:23 75 07/24/19 12:00 99.3 73 24 132/54 (80) 97 07/24/19 12:00 14.0 55 07/24/19 12:00 Venturi Mask 14.0 Height (Feet): 6 Height (Inches): 1.00 Weight (Pounds): 150 Objective GENERAL: The patient is a well-developed, well-nourished, thin-appearing male, who is in moderate respiratory distress. HEENT: Eyes, pupils are equal and responsive to light and accommodation. Extraocular movements are intact. NECK: Supple without lymphadenopathy. CHEST: Lungs are clear to auscultation bilaterally without wheezes or rales. CARDIOVASCULAR: Regular rhythm and rate. S1 and S2 are normal without murmurs, rubs, or gallops. ABDOMEN: Soft, nontender, and nondistended. Positive bowel sounds. No evidence of hepatosplenomegaly. Currently, no rebound or guarding noted. EXTREMITIES: Negative for clubbing, cyanosis, or edema. Laboratory Tests Test 07/25/19 01:00 07/25/19 03:40 Urine Eosinophils None seen (NONE SEEN) White Blood Count 3.8 K/UL (4.8-10.8) L Red Blood Count 3.44 M/UL (4.70-6.10) L Hemoglobin 8.6 G/DL (14.2-18.0) L Hematocrit 26.6 % (42.0-52.0) L Mean Corpuscular Volume 77 FL (80-99) L Mean Corpuscular Hemoglobin 24.9 PG (27.0-31.0) L Mean Corpuscular Hemoglobin Concent 32.3 G/DL (32.0-36.0) Red Cell Distribution Width 15.4 % (11.6-14.8) H Platelet Count 243 K/UL (150-450) Mean Platelet Volume 5.9 FL (6.5-10.1) L Neutrophils (%) (Auto) 51.4 % (45.0-75.0) Lymphocytes (%) (Auto) 26.1 % (20.0-45.0) Monocytes (%) (Auto) 12.7 % (1.0-10.0) H Eosinophils (%) (Auto) 9.0 % (0.0-3.0) H Basophils (%) (Auto) 0.9 % (0.0-2.0) Sodium Level 143 MMOL/L (136-145) Potassium Level 3.8 MMOL/L (3.5-5.1) Chloride Level 109 MMOL/L (98-107) H Carbon Dioxide Level 28 MMOL/L (21-32) Anion Gap 6 mmol/L (5-15) Blood Urea Nitrogen 18 mg/dL (7-18) Creatinine 1.0 MG/DL (0.55-1.30) Estimat Glomerular Filtration Rate > 60 mL/min (>60) Glucose Level 113 MG/DL (74-106) H Calcium Level 9.0 MG/DL (8.5-10.1) Current Medications Medications (Trade) Dose Ordered Sig/Kike Route PRN Reason Start Time Stop Time Status Last Admin Dose Admin Acetaminophen (Tylenol) 650 mg Q4H PRN ORAL fever 07/21/19 05:30 08/17/19 05:29 Albuterol/ Ipratropium (Albuterol/ Ipratropium) 3 ml Q4H PRN HHN Shortness of Breath 07/23/19 20:00 07/28/19 19:59 07/24/19 15:41 Amlodipine Besylate (Norvasc) 2.5 mg DAILY NG 07/24/19 09:00 08/23/19 08:59 07/25/19 08:33 Cefepime HCl 1 gm/ Dextrose 55 ml @ 110 mls/hr Q24H IVPB 07/22/19 21:00 07/29/19 20:59 07/24/19 21:03 Folic Acid (Folate) 2 mg DAILY ORAL 07/21/19 09:00 08/19/19 11:29 07/25/19 08:32 Heparin Sodium (Porcine) (Heparin 5000 units/ml) 5,000 units EVERY 12 HOURS SUBQ 07/21/19 09:00 08/17/19 20:59 07/25/19 08:35 Iron Sucrose 100 mg/Sodium Chloride 60 ml @ 240 mls/hr BEDTIME IV 07/24/19 21:00 07/27/19 21:14 07/24/19 20:15 Lansoprazole (Prevacid) 30 mg BID NG 07/23/19 18:00 08/22/19 17:59 07/25/19 08:32 Levothyroxine Sodium (Synthroid) 50 mcg DAILY@0630 ORAL 07/21/19 06:30 08/18/19 06:29 07/25/19 06:00 Ondansetron HCl (Zofran) 4 mg Q6H PRN IVP Nausea & Vomiting 07/21/19 08:15 08/17/19 14:14 Polyethylene Glycol (Miralax) 17 gm DAILYPRN PRN ORAL Constipation 07/21/19 05:30 08/17/19 05:29 Quetiapine Fumarate (SEROqueL) 25 mg Q8H PRN ORAL agitation 07/21/19 05:30 08/17/19 05:29 07/24/19 23:50 Vancomycin HCl (Vanco rx to dose) 1 ea DAILY PRN MISC Per rx protocol 07/21/19 09:00 08/17/19 14:29 Vancomycin/Sodium Chloride 275 ml @ 183.333 mls/hr Q24H IVPB 07/22/19 14:00 07/27/19 13:59 07/24/19 13:30 Danielle Roach M.D. Jul 25, 2019 12:02
--- NOTE | 2019-07-25 13:00 | NUR ---
NURSE NOTES: Patient was placed on oxygen 6L via NC by RT Og. Patient is saturating 98% at this time. No distress noted. Will continue to monitor.
--- NOTE | 2019-07-25 13:16 | NUR ---
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 98.7 HR 62 RR 20 B/P 151/59 VM 55% WBC 3.8 CXR=Markedly increased right basilar opacity, likely increasing pleural fluid. IS: IRON IV CEFEPIME IV VANCO IV HEPARIN SUBC STEP DOWN STATUS
--- NOTE | 2019-07-25 13:47 | NUR ---
NURSE NOTES: Spoke with Nicolas from pharmacy regarding vancomycin trough, ok to give vancomycin dose @ 1400 today.
[2019-07-25] MEDS: Vancomycin 1.25gm/NS Premix q24h IVPB SCH (13:54)
[2019-07-25 16:00] VITALS: BP 153/73
--- NOTE | 2019-07-25 16:59 | Internal Med Progress Note ---
Subjective Date of Service: Jul 25, 2019 Physician Name Xander Bah Attending Physician Lamont Hayes MD Current Medications Medications (Trade) Dose Ordered Sig/Kike Route PRN Reason Start Time Stop Time Status Last Admin Dose Admin Acetaminophen (Tylenol) 650 mg Q4H PRN ORAL fever 07/21/19 05:30 08/17/19 05:29 Albuterol/ Ipratropium (Albuterol/ Ipratropium) 3 ml Q4H PRN HHN Shortness of Breath 07/23/19 20:00 07/28/19 19:59 07/24/19 15:41 Amlodipine Besylate (Norvasc) 2.5 mg DAILY NG 07/24/19 09:00 08/23/19 08:59 07/25/19 08:33 Cefepime HCl 1 gm/ Dextrose 55 ml @ 110 mls/hr Q24H IVPB 07/22/19 21:00 07/29/19 20:59 07/24/19 21:03 Folic Acid (Folate) 2 mg DAILY ORAL 07/21/19 09:00 08/19/19 11:29 07/25/19 08:32 Heparin Sodium (Porcine) (Heparin 5000 units/ml) 5,000 units EVERY 12 HOURS SUBQ 07/21/19 09:00 08/17/19 20:59 07/25/19 08:35 Iron Sucrose 100 mg/Sodium Chloride 60 ml @ 240 mls/hr BEDTIME IV 07/24/19 21:00 07/27/19 21:14 07/24/19 20:15 Lansoprazole (Prevacid) 30 mg BID NG 07/23/19 18:00 08/22/19 17:59 07/25/19 08:32 Levothyroxine Sodium (Synthroid) 50 mcg DAILY@0630 ORAL 07/21/19 06:30 08/18/19 06:29 07/25/19 06:00 Ondansetron HCl (Zofran) 4 mg Q6H PRN IVP Nausea & Vomiting 07/21/19 08:15 08/17/19 14:14 Polyethylene Glycol (Miralax) 17 gm DAILYPRN PRN ORAL Constipation 07/21/19 05:30 08/17/19 05:29 Quetiapine Fumarate (SEROqueL) 25 mg Q8H PRN ORAL agitation 07/21/19 05:30 08/17/19 05:29 07/24/19 23:50 Vancomycin HCl (Vanco rx to dose) 1 ea DAILY PRN MISC Per rx protocol 07/21/19 09:00 08/17/19 14:29 Vancomycin/Sodium Chloride 275 ml @ 183.333 mls/hr Q24H IVPB 07/22/19 14:00 07/27/19 13:59 07/25/19 13:54 Allergies: Coded Allergies: PENICILLINS (Verified Allergy, Unknown, 10/27/18) tolretas cephalosporins ROS Limited/Unobtainable: Yes Subjective 84 YO M admitted with altered mental status. Now pneumonia and severe sepsis. Cover for Int Med-Dr Hayes. [place] Objective Last Vital Signs Date Time Temp Pulse Resp B/P (MAP) Pulse Ox O2 Delivery O2 Flow Rate FiO2 07/25/19 16:00 5.0 07/25/19 16:00 97.9 76 22 153/73 (99) 99 07/25/19 16:00 Nasal Cannula 07/25/19 13:27 40 Laboratory Tests Test 07/25/19 01:00 07/25/19 03:40 07/25/19 13:01 Urine Eosinophils None seen (NONE SEEN) White Blood Count 3.8 K/UL (4.8-10.8) L Red Blood Count 3.44 M/UL (4.70-6.10) L Hemoglobin 8.6 G/DL (14.2-18.0) L Hematocrit 26.6 % (42.0-52.0) L Mean Corpuscular Volume 77 FL (80-99) L Mean Corpuscular Hemoglobin 24.9 PG (27.0-31.0) L Mean Corpuscular Hemoglobin Concent 32.3 G/DL (32.0-36.0) Red Cell Distribution Width 15.4 % (11.6-14.8) H Platelet Count 243 K/UL (150-450) Mean Platelet Volume 5.9 FL (6.5-10.1) L Neutrophils (%) (Auto) 51.4 % (45.0-75.0) Lymphocytes (%) (Auto) 26.1 % (20.0-45.0) Monocytes (%) (Auto) 12.7 % (1.0-10.0) H Eosinophils (%) (Auto) 9.0 % (0.0-3.0) H Basophils (%) (Auto) 0.9 % (0.0-2.0) Sodium Level 143 MMOL/L (136-145) Potassium Level 3.8 MMOL/L (3.5-5.1) Chloride Level 109 MMOL/L (98-107) H Carbon Dioxide Level 28 MMOL/L (21-32) Anion Gap 6 mmol/L (5-15) Blood Urea Nitrogen 18 mg/dL (7-18) Creatinine 1.0 MG/DL (0.55-1.30) Estimat Glomerular Filtration Rate > 60 mL/min (>60) Glucose Level 113 MG/DL (74-106) H Calcium Level 9.0 MG/DL (8.5-10.1) Vancomycin Level Trough 16.0 ug/mL (5.0-12.0) H Intake and Output 07/24/19 07/25/19 19:00 07:00 Intake Total 930 ml 1050 ml Output Total 500 ml 500 ml Balance 430 ml 550 ml Free Water 150 ml 50 ml IV Total 350 ml Tube Feeding 780 ml 650 ml Output Urine Total 500 ml 500 ml # Bowel Movements 1 1 Objective PHYSICAL EXAMINATION: GENERAL: The patient is a well-developed, well-nourished, thin-appearing male, who is in moderate respiratory distress. HEENT: Eyes, pupils are equal and responsive to light and accommodation. Extraocular movements are intact. NECK: Supple without lymphadenopathy. CHEST: Venturi mask; Lungs with bilateral wheezes and rhonchi; breath sounds decreased at bases CARDIOVASCULAR: Regular rhythm and rate. S1 and S2 are normal without murmurs, rubs, or gallops. ABDOMEN: Soft, nontender, and nondistended. Positive bowel sounds. No evidence of hepatosplenomegaly. Currently, no rebound or guarding noted. EXTREMITIES: Negative for clubbing, cyanosis, or edema. RECTAL/GENITAL: Not performed. NEUROLOGIC: Cranial nerves II through XII are grossly intact without focal deficits. Motor strength is 5/5 bilaterally. Deep tendon reflexes are 2+ plantar. Assessment/Plan Assessment/Plan ASSESSMENT: This is an 84-year-old male. 1. Bilateral pneumonia. 2. Respiratory failure. 3. Probable sepsis. 4. Altered mental status. 5. Diabetes type 2. 6. Hypothyroidism. 7. Cerebrovascular disease. 8. Acute renal failure. 9. Leukocytosis 10. Hypernatremia TREATMENT: 1. Respiratory failure/bilateral pneumonia. A Pulmonary consultation has been obtained with Dr. Vania Hui. The patient is currently admitted to the intensive care unit. The patient is currently on a venturi mask. The patient has been started empirically on vancomycin and ertapenem. A sputum culture =MRSA. ABX=vanco and cefepime per ID=Dr Matias 2. Altered mental status. This is probably secondary to hypoxia secondary to pneumonia as above. 3. Diabetes type 2. The patient was admitted without antihyperglycemic medication. 4. Hypothyroidism. Continue Levoxyl as above. 5. Cerebrovascular disease. The patient is status post cerebrovascular accident. 6. Acute renal failure. This may be secondary to acute dehydration. The patient is currently receiving intravenous fluids. 7. Severe Sepsis. ABX=cefepime, vanco and meropenem. ID=Xander Mckeon MD Jul 25, 2019 16:59
--- NOTE | 2019-07-25 17:23 | NUR ---
NURSE NOTES:WOUND CARE NOTES:Pt noted to have partial thickness pressure injury base of wound. Base of wound is moist and viable (L)2.5cm x (W)1.5cm.Edges adherent to base of wound. No odor noted. Periwound scrotal sac is dark without evidence of further skin breakdown. No evidence of sacral skin breakdown noted. Non-blanching erythema without induration noted to R and L Ischium. Both heels are dry, firm and blanchable. NO evidence of other skin breakdown. Tx.Plan: Apply Moisture Barrier Paste to Scrotum. Cover with Optifoam drsg. Change every 3 days and prn. Apply Moisture Barrier Paste to Sacrum. Cover with Optifoam drsg. Change every 3 days and prn. Apply Moisture Barrier to R and L ischium. Cover each area with Optifoam drsg. Change every 3 days and prn. Apply Cavilon Skin Barrier to both heels. Cover each heel with Optifoam drsg. Change every 7 days and prn. Reposition at least every 2hours or as tolerated. Off-load heels with pillow.
--- NOTE | 2019-07-25 18:53 | NUR ---
HAND-OFF: Report given to KAI Nunez. Endorsed plan of care. Patient in stable condition.
--- NOTE | 2019-07-25 18:59 | NUR ---
NURSE NOTES: Received report from Honey RN, pt. in bed awake, Appears to be alert to name- confused, call light within easy reach, bed in lowest position, bed locked in position and side rails up x's3, pt. appears to be sating well on 5L NC- no distress noted, Glucerna 1.2 running via left Nare at 65cc/hr- no residual noted,HOB elevated, pt. appears to be clean and dry, comfort measures provided, Left hand 20G IV intact and patent, bilateral wrist restraints removed- skin intact and bilateral pulses palpable, safety measures continued, will continue with plan of care.
[2019-07-25 20:00] VITALS: BP 134/70
[2019-07-25] MEDS: Iron Sucrose 100 MG in NS 55 ML IV SCH (20:07)
[2019-07-25] MEDS: Cefepime HCl 1 GM in D5W 55 ML IVPB SCH (21:12)
[2019-07-26] VITALS: BP 145/69
[2019-07-26 04:00] VITALS: BP 148/70
[2019-07-26 04:59] LABS: EOSINOPHILS % (AUTO) 8.4 % (0.0-3.0); HEMATOCRIT 26.7 % (42.0-52.0); HEMOGLOBIN 8.6 G/DL (14.2-18.0); MEAN CORPUSCULAR VOLUME 78 FL (80-99); MONOCYTES % (AUTO) 9.7 % (1.0-10.0); PLATELET COUNT 254 K/UL (150-450); RED BLOOD COUNT 3.44 M/UL (4.70-6.10); RED CELL DISTRIBUTION WIDTH 15.8 % (11.6-14.8)
[2019-07-26 05:11] LABS: ANION GAP 7 mmol/L (5-15); BLOOD UREA NITROGEN 17 mg/dL (7-18); CALCIUM 9.2 MG/DL (8.5-10.1); CARBON DIOXIDE 28 MMOL/L (21-32); CHLORIDE 108 MMOL/L (98-107); POTASSIUM 4.3 MMOL/L (3.5-5.1); SODIUM 143 MMOL/L (136-145)
[2019-07-26 05:23] LABS: ALANINE AMINOTRANSFERASE 25 U/L (12-78); ALBUMIN 1.7 G/DL (3.4-5.0); ALKALINE PHOSPHATASE 105 U/L (46-116); ASPARTATE AMINO TRANSFERASE 31 U/L (15-37); BILIRUBIN,TOTAL 0.2 MG/DL (0.2-1.0); PHOSPHORUS 3.2 MG/DL (2.5-4.9)
[2019-07-26 05:33] LABS: BILIRUBIN,DIRECT < 0.1 MG/DL (0.0-0.3)
--- NOTE | 2019-07-26 07:04 | NUR ---
HAND-OFF: Report given to KAI Silva, pt. remains stable and no signs of distress noted- aware to f/u on abnormal am labs.
--- NOTE | 2019-07-26 07:05 | NUR ---
NURSE NOTES: Report received from Joe Burks RN. Patient alert and oriented x 1, able to follows commands. A fib/SR 65 on monitoring analyst. Receiving O2 via nasal cannula @ 5L/min, respirations even and unlabored. Right NGT in place running Glucerna 1.2 @ 65 cc/hr, no residuals noted. HoB elevated. Condom catheter in place and draining well. Left hand 20g saline lock patent and asymptomatic. Noted with bilateral soft wrist restraints for attempting to pull on NGT. Educated on removal criteria but patient is unable to comprehend at this time. Skin intact, peripheral pulses present, no edema or redness noted. Will continue to educate patient and attempt removal when safe. Bed locked in lowest position with side rails up x 3. All needs attended to. Call light within reach. Will continue to monitor.
[2019-07-26 08:00] VITALS: BP 131/57
--- NOTE | 2019-07-26 08:45 | NUR ---
RD ASSESSMENT & RECOMMENDATIONS SEE CARE ACTIVITY FOR COMPLETE ASSESSMENT DAILY ESTIMATED NEEDS: Needs based on Sepsis, DM, pulmonary/ 67.7kg 25-35 kcals/kg 3622-6541 total kcals 1.25-2 g protein/kg 85-135 g total protein 20-30ml/kcal mL/kg 0817-4416 total fluid mLs NUTRITION DIAGNOSIS: * Swallowing difficulty R/T dysphagia w/ h/o CVA, decreased cognitive fxn as evidenced by MESSAGE AND DELIVERY SERVICE PRICER recommends nonoral feeds at this time, w/ NGT feeds. CURRENT TF: Glucerna 1.2 @65 ml/hr x22 hrs (PO DIET RECOMMENDATIONS: IF ORAL DIET INDICATED-> CCHO MED, LOW NA/ texture per MESSAGE AND DELIVERY SERVICE PRICER) ENTERAL NUTRITION RECOMMENDATIONS: Glucerna 1.2 @65ml/hr x22 hrs to provide 1430ml, 1716 kcal, 86g prot, 1151ml free H2O - Maintain Glucerna 1.2 @ 65ml/hr for 22 hrs as tolerated. - HOLD TF one hour before and after synthroid meds. - Flush per . HOB over 30 degrees Once tolerating TF well, rec to increase to 70ml/hr x22 hrs for 1848 kcal, 92g pro. ADDITIONAL RECOMMENDATIONS: * Calibrated bedscale wt for accurate CBW * Monitor MESSAGE AND DELIVERY SERVICE PRICER recommendation regarding oral diet, need to adjust TF * NISS w/ TF: A1C of 6.5 * Monitor lytes, replete as needed * Wound care: add JOSE BID + Vit C 250mg daily .
[2019-07-26] MEDS: Heparin 5000 units/ml inj SUBQ SCH (08:59)
--- NOTE | 2019-07-26 10:52 | Pulmonology Progress Note ---
Assessment/Plan Problems: (1) Nosocomial pneumonia (2) Pleural effusion Assessment & Plan: thoracentesis ordered b/o increasing in amount of the fluid (3) Sepsis Assessment & Plan: afebrile, wbc wnl (4) Atrial fibrillation (5) Acute renal failure (6) Acute metabolic encephalopathy (7) Severe anemia (8) Alzheimer's dementia (9) History of CVA (cerebrovascular accident) (10) Diabetes mellitus (11) Hypothyroidism Assessment/Plan no new complains more awake failed the swallow study improving cxr showing increasing RLL effusion and consolidation respiratory treatment NG tube in, tolerating well sliding scale f/u renal function K supplement Venofer for iron deficiency DVT prophylaxis. hold Heparin SQ for thoracentesis Subjective ROS Limited/Unobtainable: No HEENT: Repors: no symptoms Respiratory: Reports: no symptoms Allergies: Coded Allergies: PENICILLINS (Verified Allergy, Unknown, 10/27/18) tolretas cephalosporins Objective Last 24 Hour Vital Signs Date Time Temp Pulse Resp B/P (MAP) Pulse Ox O2 Delivery O2 Flow Rate FiO2 07/26/19 08:57 61 131/57 07/26/19 08:20 95 Nasal Cannula 5.0 40 07/26/19 08:20 61 18 95 Nasal Cannula 5.0 40 07/26/19 08:00 5.0 07/26/19 08:00 97.6 65 16 131/57 (81) 100 07/26/19 07:45 66 07/26/19 04:00 98.6 77 20 148/70 (96) 97 07/26/19 04:00 Nasal Cannula 5.0 07/26/19 04:00 5.0 07/26/19 03:18 73 07/26/19 00:00 Nasal Cannula 5.0 07/26/19 00:00 98.1 64 20 145/69 (94) 100 07/26/19 00:00 5.0 07/25/19 22:57 68 07/25/19 20:00 Nasal Cannula 5.0 07/25/19 20:00 98.9 71 20 134/70 (91) 98 07/25/19 20:00 5.0 07/25/19 19:57 96 Nasal Cannula 5.0 40 07/25/19 19:03 71 07/25/19 16:00 5.0 2/17/20 16:00 97.9 76 22 153/73 (99) 99 07/25/19 16:00 Nasal Cannula 5.0 07/25/19 15:42 68 07/25/19 13:27 98 Nasal Cannula 5.0 40 07/25/19 12:00 14.0 55 07/25/19 12:00 Venturi Mask 14.0 07/25/19 12:00 97.7 65 20 130/60 (83) 98 07/25/19 11:34 71 Intake and Output 07/25/19 07/26/19 19:00 07:00 Intake Total 930 ml 815 ml Output Total 600 ml 400 ml Balance 330 ml 415 ml Free Water 150 ml 50 ml IV Total 115 ml Tube Feeding 780 ml 650 ml Output Urine Total 600 ml 400 ml # Bowel Movements 1 4 General Appearance: cachetic HEENT: normocephalic, atraumatic Respiratory/Chest: chest wall non-tender, decreased breath sounds, crackles/ rales Cardiovascular: normal peripheral pulses, normal rate Abdomen: normal bowel sounds, soft, non tender Genitourinary: normal external genitalia Extremities: no cyanosis, no clubbing Skin: no rash Laboratory Tests 07/25/19 13:01: Vancomycin Level Trough 16.0H 07/26/19 03:45: White Blood Count 6.0#, Red Blood Count 3.44L, Hemoglobin 8.6L, Hematocrit 26.7L , Mean Corpuscular Volume 78L, Mean Corpuscular Hemoglobin 25.1L, Mean Corpuscular Hemoglobin Concent 32.3, Red Cell Distribution Width 15.8H, Platelet Count 254, Mean Platelet Volume 5.4L, Neutrophils (%) (Auto) 58.0, Lymphocytes (%) (Auto) 23.0, Monocytes (%) (Auto) 9.7, Eosinophils (%) (Auto) 8.4H, Basophils (%) (Auto) 1.0, Sodium Level 143, Potassium Level 4.3, Chloride Level 108H, Carbon Dioxide Level 28, Anion Gap 7, Blood Urea Nitrogen 17, Creatinine 1.0, Estimat Glomerular Filtration Rate > 60, Glucose Level 111H, Uric Acid 4.4, Calcium Level 9.2, Phosphorus Level 3.2, Magnesium Level 2.1, Total Bilirubin 0.2, Direct Bilirubin < 0.1, Aspartate Amino Transf (AST/SGOT) 31, Alanine Aminotransferase (ALT/SGPT) 25, Alkaline Phosphatase 105, Total Protein 6.9, Albumin 1.7L Current Medications Medications (Trade) Dose Ordered Sig/Kike Route PRN Reason Start Time Stop Time Status Last Admin Dose Admin Acetaminophen (Tylenol) 650 mg Q4H PRN ORAL fever 07/21/19 05:30 08/17/19 05:29 Albuterol/ Ipratropium (Albuterol/ Ipratropium) 3 ml Q4H PRN HHN Shortness of Breath 07/23/19 20:00 07/28/19 19:59 07/24/19 15:41 Amlodipine Besylate (Norvasc) 2.5 mg DAILY NG 07/24/19 09:00 08/23/19 08:59 07/26/19 08:57 Cefepime HCl 1 gm/ Dextrose 55 ml @ 110 mls/hr Q24H IVPB 07/22/19 21:00 07/29/19 20:59 07/25/19 21:12 Folic Acid (Folate) 2 mg DAILY ORAL 07/21/19 09:00 08/19/19 11:29 07/26/19 08:58 Heparin Sodium (Porcine) (Heparin 5000 units/ml) 5,000 units EVERY 12 HOURS SUBQ 07/21/19 09:00 08/17/19 20:59 07/26/19 08:59 Iron Sucrose 100 mg/Sodium Chloride 60 ml @ 240 mls/hr BEDTIME IV 07/24/19 21:00 07/27/19 21:14 07/25/19 20:07 Lansoprazole (Prevacid) 30 mg BID NG 07/23/19 18:00 08/22/19 17:59 07/26/19 08:57 Levothyroxine Sodium (Synthroid) 50 mcg DAILY@0630 ORAL 07/21/19 06:30 08/18/19 06:29 07/26/19 06:00 Ondansetron HCl (Zofran) 4 mg Q6H PRN IVP Nausea & Vomiting 07/21/19 08:15 08/17/19 14:14 Polyethylene Glycol (Miralax) 17 gm DAILYPRN PRN ORAL Constipation 07/21/19 05:30 08/17/19 05:29 Quetiapine Fumarate (SEROqueL) 25 mg Q8H PRN ORAL agitation 07/21/19 05:30 08/17/19 05:29 07/24/19 23:50 Vancomycin HCl (Vanco rx to dose) 1 ea DAILY PRN MISC Per rx protocol 07/21/19 09:00 08/17/19 14:29 Vancomycin/Sodium Chloride 275 ml @ 183.333 mls/hr Q24H IVPB 07/22/19 14:00 07/27/19 13:59 07/25/19 13:54 Vania Hui MD Jul 26, 2019 10:52
--- NOTE | 2019-07-26 11:43 | Infectious Diseases Prog Note ---
Assessment/Plan Assessment/Plan Assessment: Severe sepsis Pneumonia Probable UTI -07/25 CXR: Markedly increased right basilar opacity, likely increasing pleural fluid -07/22 CXR: Worsening CHF -u/a wbc 15-20, nit neg, leuk +3; ucx <10k Proteus sp (R Amp, ancef, macrobid ; otherwise), 70-80K S. viridans -07/19 CXR: marked worsening of pleural and parenchymal disease at the right lung base.There is also increasing parenchymal consolidation and atelectasis in the left infrahilar region. -CXR: Perihilar and basilar infiltrates. Findings suspicious for pneumonia. -influenza sc neg -Bcx NTD -sp cx MRSA, C. albicans -legionella ag urine neg Hypothermia, SP Leukocytosis, SP Acute respiratory failure, sp NRB mask/VEnturi mask, now on NC Lactic acidosis, SP RAMAN, SP Dm2 HTN non verbal hypothyroidism CVA hx of UTI anemia dementia half-way resident Plan: -Continue empiric IV Vancomycin #9/10 for MRSA PNA -Dc Cefepime #5 (abx d#8/) for UTI and PNA -07/22 SP Barbara #4 -07/19 SP Ertapenem #2 -07/18 SP IV Amikacin x1, Levaquin x1 -f/u cx -Monitor CBC/CMP, temperatures -aspiration precautions Thank you for this consultation. Will continue to follow along with you. Subjective Allergies: Coded Allergies: PENICILLINS (Verified Allergy, Unknown, 10/27/18) tolretas cephalosporins Subjective afebrile no leukocytosis on 5l NC Objective Vital Signs Last 24 Hour Vital Signs Date Time Temp Pulse Resp B/P (MAP) Pulse Ox O2 Delivery O2 Flow Rate FiO2 07/26/19 08:57 61 131/57 07/26/19 08:20 95 Nasal Cannula 5.0 40 07/26/19 08:20 61 18 95 Nasal Cannula 5.0 40 07/26/19 08:00 5.0 07/26/19 08:00 97.6 65 16 131/57 (81) 100 07/26/19 07:45 66 07/26/19 04:00 98.6 77 20 148/70 (96) 97 07/26/19 04:00 Nasal Cannula 5.0 07/26/19 04:00 5.0 07/26/19 03:18 73 07/26/19 00:00 Nasal Cannula 5.0 07/26/19 00:00 98.1 64 20 145/69 (94) 100 07/26/19 00:00 5.0 07/25/19 22:57 68 07/25/19 20:00 Nasal Cannula 5.0 07/25/19 20:00 98.9 71 20 134/70 (91) 98 07/25/19 20:00 5.0 07/25/19 19:57 96 Nasal Cannula 5.0 40 07/25/19 19:03 71 07/25/19 16:00 5.0 07/25/19 16:00 97.9 76 22 153/73 (99) 99 07/25/19 16:00 Nasal Cannula 5.0 07/25/19 15:42 68 07/25/19 13:27 98 Nasal Cannula 5.0 40 07/25/19 12:00 14.0 55 07/25/19 12:00 Venturi Mask 14.0 07/25/19 12:00 97.7 65 20 130/60 (83) 98 Height (Feet): 6 Height (Inches): 1.00 Weight (Pounds): 149 Objective GENERAL: no respiratory distress. HEENT: Eyes, pupils are equal and responsive to light and accommodation. Extraocular movements are intact. NECK: Supple CHEST: Lungs are clear to auscultation bilaterally without wheezes or rales. CARDIOVASCULAR: Regular rhythm and rate. S1 and S2 are normal without murmurs, rubs, or gallops. ABDOMEN: Soft, nontender, and nondistended. Positive bowel sounds. No evidence of hepatosplenomegaly. EXTREMITIES: Negative for clubbing, cyanosis, or edema. Laboratory Tests Test 07/25/19 13:01 07/26/19 03:45 07/26/19 10:55 Vancomycin Level Trough 16.0 ug/mL (5.0-12.0) H White Blood Count 6.0 K/UL (4.8-10.8) # Red Blood Count 3.44 M/UL (4.70-6.10) L Hemoglobin 8.6 G/DL (14.2-18.0) L Hematocrit 26.7 % (42.0-52.0) L Mean Corpuscular Volume 78 FL (80-99) L Mean Corpuscular Hemoglobin 25.1 PG (27.0-31.0) L Mean Corpuscular Hemoglobin Concent 32.3 G/DL (32.0-36.0) Red Cell Distribution Width 15.8 % (11.6-14.8) H Platelet Count 254 K/UL (150-450) Mean Platelet Volume 5.4 FL (6.5-10.1) L Neutrophils (%) (Auto) 58.0 % (45.0-75.0) Lymphocytes (%) (Auto) 23.0 % (20.0-45.0) Monocytes (%) (Auto) 9.7 % (1.0-10.0) Eosinophils (%) (Auto) 8.4 % (0.0-3.0) H Basophils (%) (Auto) 1.0 % (0.0-2.0) Sodium Level 143 MMOL/L (136-145) Potassium Level 4.3 MMOL/L (3.5-5.1) Chloride Level 108 MMOL/L (98-107) H Carbon Dioxide Level 28 MMOL/L (21-32) Anion Gap 7 mmol/L (5-15) Blood Urea Nitrogen 17 mg/dL (7-18) Creatinine 1.0 MG/DL (0.55-1.30) Estimat Glomerular Filtration Rate > 60 mL/min (>60) Glucose Level 111 MG/DL (74-106) H Uric Acid 4.4 MG/DL (2.6-7.2) Calcium Level 9.2 MG/DL (8.5-10.1) Phosphorus Level 3.2 MG/DL (2.5-4.9) Magnesium Level 2.1 MG/DL (1.8-2.4) Total Bilirubin 0.2 MG/DL (0.2-1.0) Direct Bilirubin < 0.1 MG/DL (0.0-0.3) Aspartate Amino Transf (AST/SGOT) 31 U/L (15-37) Alanine Aminotransferase (ALT/SGPT) 25 U/L (12-78) Alkaline Phosphatase 105 U/L (46-116) Total Protein 6.9 G/DL (6.4-8.2) Albumin 1.7 G/DL (3.4-5.0) L Prothrombin Time Pending Prothromb Time International Ratio Pending Activated Partial Thromboplast Time Pending Free Prostate Specific Antigen Pending Percent Free Prostate Specific Ag Pending Prostate Specific Antigen Total Pending Current Medications Medications (Trade) Dose Ordered Sig/Kike Route PRN Reason Start Time Stop Time Status Last Admin Dose Admin Acetaminophen (Tylenol) 650 mg Q4H PRN ORAL fever 07/21/19 05:30 08/17/19 05:29 Albuterol/ Ipratropium (Albuterol/ Ipratropium) 3 ml Q4H PRN HHN Shortness of Breath 07/23/19 20:00 07/28/19 19:59 07/24/19 15:41 Amlodipine Besylate (Norvasc) 2.5 mg DAILY NG 07/24/19 09:00 08/23/19 08:59 07/26/19 08:57 Cefepime HCl 1 gm/ Dextrose 55 ml @ 110 mls/hr Q24H IVPB 07/22/19 21:00 07/29/19 20:59 07/25/19 21:12 Folic Acid (Folate) 2 mg DAILY ORAL 07/21/19 09:00 08/19/19 11:29 07/26/19 08:58 Iron Sucrose 100 mg/Sodium Chloride 60 ml @ 240 mls/hr BEDTIME IV 07/24/19 21:00 07/27/19 21:14 07/25/19 20:07 Lansoprazole (Prevacid) 30 mg BID NG 07/23/19 18:00 08/22/19 17:59 07/26/19 08:57 Levothyroxine Sodium (Synthroid) 50 mcg DAILY@0630 ORAL 07/21/19 06:30 08/18/19 06:29 07/26/19 06:00 Ondansetron HCl (Zofran) 4 mg Q6H PRN IVP Nausea & Vomiting 07/21/19 08:15 08/17/19 14:14 Polyethylene Glycol (Miralax) 17 gm DAILYPRN PRN ORAL Constipation 07/21/19 05:30 08/17/19 05:29 Quetiapine Fumarate (SEROqueL) 25 mg Q8H PRN ORAL agitation 07/21/19 05:30 08/17/19 05:29 07/24/19 23:50 Vancomycin HCl (Vanco rx to dose) 1 ea DAILY PRN MISC Per rx protocol 07/21/19 09:00 08/17/19 14:29 Vancomycin/Sodium Chloride 275 ml @ 183.333 mls/hr Q24H IVPB 07/22/19 14:00 07/27/19 13:59 07/25/19 13:54 Danielle Roach M.D. Jul 26, 2019 11:43
[2019-07-26 11:45] LABS: INR 0.9 (0.9-1.1)
[2019-07-26 12:00] VITALS: BP 123/47
--- NOTE | 2019-07-26 12:30 | Nephrology Progress Note ---
Assessment/Plan Problem List: (1) Acute renal failure (2) Severe anemia (3) Sepsis (4) Diabetes mellitus (5) Hypothyroidism Assessment Alexi Cr lowering 2.6 to 1.8 Sepsis / Pneumonia / UTI / Hypothermia Respiratory failure HypoThyroidism h/o CVA Anemia Dementia Plan DC Hydrate IV iron Phos supplement as needed antibiotics avoid nephrotoxics monitor renal parameters check TFTs- adjust synthroid dose Urine eos per orders Subjective ROS Limited/Unobtainable: Yes Objective Objective Last 24 Hour Vital Signs Date Time Temp Pulse Resp B/P (MAP) Pulse Ox O2 Delivery O2 Flow Rate FiO2 07/26/19 12:00 98.8 64 18 123/47 (72) 99 07/26/19 12:00 5.0 07/26/19 08:57 61 131/57 07/26/19 08:20 95 Nasal Cannula 5.0 40 07/26/19 08:20 61 18 95 Nasal Cannula 5.0 40 07/26/19 08:00 5.0 07/26/19 08:00 97.6 65 16 131/57 (81) 100 07/26/19 07:45 66 07/26/19 04:00 98.6 77 20 148/70 (96) 97 07/26/19 04:00 Nasal Cannula 5.0 07/26/19 04:00 5.0 07/26/19 03:18 73 07/26/19 00:00 Nasal Cannula 5.0 07/26/19 00:00 98.1 64 20 145/69 (94) 100 07/26/19 00:00 5.0 07/25/19 22:57 68 07/25/19 20:00 Nasal Cannula 5.0 07/25/19 20:00 98.9 71 20 134/70 (91) 98 07/25/19 20:00 5.0 07/25/19 19:57 96 Nasal Cannula 5.0 40 07/25/19 19:03 71 07/25/19 16:00 5.0 07/25/19 16:00 97.9 76 22 153/73 (99) 99 07/25/19 16:00 Nasal Cannula 5.0 07/25/19 15:42 68 07/25/19 13:27 98 Nasal Cannula 5.0 40 Intake and Output 07/25/19 07/26/19 19:00 07:00 Intake Total 930 ml 815 ml Output Total 600 ml 400 ml Balance 330 ml 415 ml Free Water 150 ml 50 ml IV Total 115 ml Tube Feeding 780 ml 650 ml Output Urine Total 600 ml 400 ml # Bowel Movements 1 4 Laboratory Tests 07/25/19 13:01: Vancomycin Level Trough 16.0H 07/26/19 03:45: White Blood Count 6.0#, Red Blood Count 3.44L, Hemoglobin 8.6L, Hematocrit 26.7L , Mean Corpuscular Volume 78L, Mean Corpuscular Hemoglobin 25.1L, Mean Corpuscular Hemoglobin Concent 32.3, Red Cell Distribution Width 15.8H, Platelet Count 254, Mean Platelet Volume 5.4L, Neutrophils (%) (Auto) 58.0, Lymphocytes (%) (Auto) 23.0, Monocytes (%) (Auto) 9.7, Eosinophils (%) (Auto) 8.4H, Basophils (%) (Auto) 1.0, Sodium Level 143, Potassium Level 4.3, Chloride Level 108H, Carbon Dioxide Level 28, Anion Gap 7, Blood Urea Nitrogen 17, Creatinine 1.0, Estimat Glomerular Filtration Rate > 60, Glucose Level 111H, Uric Acid 4.4, Calcium Level 9.2, Phosphorus Level 3.2, Magnesium Level 2.1, Total Bilirubin 0.2, Direct Bilirubin < 0.1, Aspartate Amino Transf (AST/SGOT) 31, Alanine Aminotransferase (ALT/SGPT) 25, Alkaline Phosphatase 105, Total Protein 6.9, Albumin 1.7L 07/26/19 10:55: Prothrombin Time 10.0, Prothromb Time International Ratio 0.9, Activated Partial Thromboplast Time 33, Free Prostate Specific Antigen [Pending], Percent Free Prostate Specific Ag [Pending], Prostate Specific Antigen Total [Pending] Height (Feet): 6 Height (Inches): 1.00 Weight (Pounds): 149 General Appearance: no apparent distress, lethargic Cardiovascular: normal rate Respiratory/Chest: decreased breath sounds Abdomen: distended Objective no change Clovis Benites MD Jul 26, 2019 12:30
--- NOTE | 2019-07-26 12:59 | NUR ---
NURSE NOTES: Thoracentesis procedure explained to vanessa Vazquez by Dr. Hui. Telephone consent obtained with 2 RN witness.
--- NOTE | 2019-07-26 13:02 | Cardiology Progress Note ---
Assessment/Plan Assessment/Plan 1. Toxic metabolic encephalopathy. 2. Pneumonia. 3. Respiratory insufficiency. 4. Dementia. 5. Hypernatremia. 6. History of CVA. 7. History of hypertension. 8. History of diabetes mellitus. 9. History of hypothyroidism. tele reviewed sinus cxr showed increased right effusion awaits thoracentesis on oxygen on pulm treatment will review echo Subjective ROS Limited/Unobtainable: Yes Objective Last 24 Hour Vital Signs Date Time Temp Pulse Resp B/P (MAP) Pulse Ox O2 Delivery O2 Flow Rate FiO2 07/26/19 12:00 98.8 64 18 123/47 (72) 99 07/26/19 12:00 5.0 07/26/19 08:57 61 131/57 07/26/19 08:20 95 Nasal Cannula 5.0 40 07/26/19 08:20 61 18 95 Nasal Cannula 5.0 40 07/26/19 08:00 5.0 07/26/19 08:00 97.6 65 16 131/57 (81) 100 07/26/19 07:45 66 07/26/19 04:00 98.6 77 20 148/70 (96) 97 07/26/19 04:00 Nasal Cannula 5.0 07/26/19 04:00 5.0 07/26/19 03:18 73 07/26/19 00:00 Nasal Cannula 5.0 07/26/19 00:00 98.1 64 20 145/69 (94) 100 07/26/19 00:00 5.0 07/25/19 22:57 68 07/25/19 20:00 Nasal Cannula 5.0 07/25/19 20:00 98.9 71 20 134/70 (91) 98 07/25/19 20:00 5.0 07/25/19 19:57 96 Nasal Cannula 5.0 40 07/25/19 19:03 71 07/25/19 16:00 5.0 07/25/19 16:00 97.9 76 22 153/73 (99) 99 07/25/19 16:00 Nasal Cannula 5.0 07/25/19 15:42 68 07/25/19 13:27 98 Nasal Cannula 5.0 40 General Appearance: no apparent distress Cardiovascular: normal rate Respiratory/Chest: rhonchi - bilaterally Abdomen: normal bowel sounds, non tender, soft Extremities: no swelling Intake and Output 07/25/19 07/26/19 19:00 07:00 Intake Total 930 ml 815 ml Output Total 600 ml 400 ml Balance 330 ml 415 ml Free Water 150 ml 50 ml IV Total 115 ml Tube Feeding 780 ml 650 ml Output Urine Total 600 ml 400 ml # Bowel Movements 1 4 Laboratory Tests Test 07/25/19 13:01 07/26/19 03:45 07/26/19 10:55 Vancomycin Level Trough 16.0 ug/mL (5.0-12.0) H White Blood Count 6.0 K/UL (4.8-10.8) # Red Blood Count 3.44 M/UL (4.70-6.10) L Hemoglobin 8.6 G/DL (14.2-18.0) L Hematocrit 26.7 % (42.0-52.0) L Mean Corpuscular Volume 78 FL (80-99) L Mean Corpuscular Hemoglobin 25.1 PG (27.0-31.0) L Mean Corpuscular Hemoglobin Concent 32.3 G/DL (32.0-36.0) Red Cell Distribution Width 15.8 % (11.6-14.8) H Platelet Count 254 K/UL (150-450) Mean Platelet Volume 5.4 FL (6.5-10.1) L Neutrophils (%) (Auto) 58.0 % (45.0-75.0) Lymphocytes (%) (Auto) 23.0 % (20.0-45.0) Monocytes (%) (Auto) 9.7 % (1.0-10.0) Eosinophils (%) (Auto) 8.4 % (0.0-3.0) H Basophils (%) (Auto) 1.0 % (0.0-2.0) Sodium Level 143 MMOL/L (136-145) Potassium Level 4.3 MMOL/L (3.5-5.1) Chloride Level 108 MMOL/L (98-107) H Carbon Dioxide Level 28 MMOL/L (21-32) Anion Gap 7 mmol/L (5-15) Blood Urea Nitrogen 17 mg/dL (7-18) Creatinine 1.0 MG/DL (0.55-1.30) Estimat Glomerular Filtration Rate > 60 mL/min (>60) Glucose Level 111 MG/DL (74-106) H Uric Acid 4.4 MG/DL (2.6-7.2) Calcium Level 9.2 MG/DL (8.5-10.1) Phosphorus Level 3.2 MG/DL (2.5-4.9) Magnesium Level 2.1 MG/DL (1.8-2.4) Total Bilirubin 0.2 MG/DL (0.2-1.0) Direct Bilirubin < 0.1 MG/DL (0.0-0.3) Aspartate Amino Transf (AST/SGOT) 31 U/L (15-37) Alanine Aminotransferase (ALT/SGPT) 25 U/L (12-78) Alkaline Phosphatase 105 U/L (46-116) Total Protein 6.9 G/DL (6.4-8.2) Albumin 1.7 G/DL (3.4-5.0) L Prothrombin Time 10.0 SEC (9.30-11.50) Prothromb Time International Ratio 0.9 (0.9-1.1) Activated Partial Thromboplast Time 33 SEC (23-33) Free Prostate Specific Antigen Pending Percent Free Prostate Specific Ag Pending Prostate Specific Antigen Total Pending Juarez Fletcher MD Jul 26, 2019 13:02
--- NOTE | 2019-07-26 13:55 | NUR ---
NURSE NOTES: Patient observed being calm, no attempts seen at trying to pull on devices. Restraints removed. Skin intact, peripheral pulses present, active range of motion noted, no swelling. Will continue to educate patient to prevent re-application of restraints.
--- NOTE | 2019-07-26 14:16 | Pre-Procedure Note/Attestation ---
Pre-Procedure Note/Attestation Complete Prior to Procedure Planned Procedure: right Procedure Narrative: thoracentesis Indications for Procedure Pre-Operative Diagnosis: pleural effusion Attestation I attest that I discussed the nature of the procedure; its benefits; risks and complications; and alternatives (and the risks and benefits of such alternatives ), prior to the procedure, with the patient (or the patient's legal community service representative). I attest that, if there was a reasonable possibility of needing a blood transfusion, the patient (or the patient's legal community service representative) was given the [facility] standardized written summary, pursuant to the Suresh Capron Blood Safety Act ([place] Health and Safety Code # 1645, as amended). I attest that I re-evaluated the patient just prior to the surgery and that there has been no change in the patient's H&P, except as documented below: Yaniv Pantoja MD Jul 26, 2019 14:16
--- NOTE | 2019-07-26 14:17 | Brief Operative Note ---
Immediate Post Operative Note Operative Note Pre-op Diagnosis: pleural effusion Procedure: thoracentesis Post-op Diagnosis: same as pre-op Surgeon: Mikie Tiwari Anesthesia: local Specimen: yes - 50 ml fluid sent to lab Complications: none Fluids: none Implant(s) used?: No Yaniv Tiwari MD Jul 26, 2019 14:17
--- NOTE | 2019-07-26 15:00 | NUR ---
NURSE NOTES: Right thoracentesis done at bedside by Dr. Pantoja, 780cc of fluid removed, specimens sent to lab. Patient in stable condition.
--- NOTE | 2019-07-26 15:00 | Diagnostic Imaging Report ---
Indications: Pleural effusion Technique: Ultrasound used to localize optimal puncture site. Sterile prepping and draping right chest. Local anesthesia with 1% lidocaine. Under real-time ultrasound guidance, puncture pleural space using thoracentesis needle. Stylet removed. Catheter placed to vacuum bottle suction. Total 780 milliliters of fluid aspirated. Patient began coughing and flow was intermittent. The catheter was removed, despite the presence of a small amount of residual fluid Patient tolerated procedure well, without immediate complication. A chest radiograph was obtained Findings: Followup sonography demonstrates small amount of residual pleural fluid.. Follow-up chest radiography demonstrates small residual effusion, markedly decreased from previously, no pneumothorax Impression: Successful ultrasound-guided thoracentesis, yielding 780 milliliters of fluid
[2019-07-26] MEDS: Vancomycin 1.25gm/NS Premix q24h IVPB SCH (15:18)
--- NOTE | 2019-07-26 15:25 | NUR ---
HAND-OFF: Report given to Ramírez Hemphill RN.
--- NOTE | 2019-07-26 15:25 | NUR ---
NURSE NOTES: Received report from KAI Joyner. Patient is resting in bed, in stable condition. Pt is s/p right thoracentesis with 780 ml aspirated. Auscultated bilateral lungs sounds present, pt has no s/sx of SOB, breathing is even and unlabored. Denies any presence of pain or discomfort at this time. Bed is in lowest position, brakes engaged. Call light is kept within easy reach. Will continue to monitor patient.
--- NOTE | 2019-07-26 15:49 | Diagnostic Imaging Report ---
Indication: Status post thoracentesis Technique: One view of the chest Comparison: 07/25/2019 Findings: Interim marked improvement of previously demonstrated large right pleural effusion, with small amount of residual pleural fluid evident. No pneumothorax. Small to moderate left pleural effusion is again demonstrated. The heart is enlarged. Stable satisfactory position of nasogastric tube Impression: Improved right pleural effusion, post thoracentesis. No radiographically evident complication Otherwise stable findings as described
[2019-07-26 16:00] VITALS: BP 125/51
--- NOTE | 2019-07-26 16:40 | NUR ---
NURSE NOTES: Yaya, respiratory therapist at nurse station. Informed that patient was placed on Venturi mask 8L FiO2 40% for thoracentesis SpO2 100%. Pt is s/p thoracentesis and no s/sx of SOB. Pt was on 2L NC before thoracentesis. Informed Yaya respiratory therapist back on 2LNC as tolerated. Yaya acknowledged. Noted. Will continue to monitor patient.
[2019-07-26] MEDS ORDERED: NS 275ml ONE (18:41)
--- NOTE | 2019-07-26 19:19 | NUR ---
HAND-OFF: Report given to KAI Nunez.
--- NOTE | 2019-07-26 19:25 | NUR ---
NURSE NOTES: Received report from santhosh Morales RN, pt. in bed awake, Appears to be alert to name- confused, call light within easy reach, bed in lowest position, bed locked in position and side rails up x's3, pt. appears to be sating well on 4L venturi Mask at 30% Fio2- no distress noted, Glucerna 1.2 running via Right Nare at 65cc/hr- no residual noted, HOB elevated, pt. appears to be clean and dry, comfort measures provided, Left hand 20G IV intact and patent, safety measures continued, will continue with plan of care.
--- NOTE | 2019-07-26 19:27 | Internal Med Progress Note ---
Subjective Date of Service: Jul 26, 2019 Physician Name Xander Bah Attending Physician Lamont Hayes MD Current Medications Medications (Trade) Dose Ordered Sig/Kike Route PRN Reason Start Time Stop Time Status Last Admin Dose Admin Acetaminophen (Tylenol) 650 mg Q4H PRN ORAL fever 07/21/19 05:30 08/17/19 05:29 Albuterol/ Ipratropium (Albuterol/ Ipratropium) 3 ml Q4H PRN HHN Shortness of Breath 07/23/19 20:00 07/28/19 19:59 07/24/19 15:41 Amlodipine Besylate (Norvasc) 2.5 mg DAILY NG 07/24/19 09:00 08/23/19 08:59 07/26/19 08:57 Folic Acid (Folate) 2 mg DAILY ORAL 07/21/19 09:00 08/19/19 11:29 07/26/19 08:58 Iron Sucrose 100 mg/Sodium Chloride 60 ml @ 240 mls/hr BEDTIME IV 07/24/19 21:00 07/27/19 21:14 07/25/19 20:07 Lansoprazole (Prevacid) 30 mg BID NG 07/23/19 18:00 08/22/19 17:59 07/26/19 17:22 Levothyroxine Sodium (Synthroid) 50 mcg DAILY@0630 ORAL 07/21/19 06:30 08/18/19 06:29 07/26/19 06:00 Ondansetron HCl (Zofran) 4 mg Q6H PRN IVP Nausea & Vomiting 07/21/19 08:15 08/17/19 14:14 Polyethylene Glycol (Miralax) 17 gm DAILYPRN PRN ORAL Constipation 07/21/19 05:30 08/17/19 05:29 Quetiapine Fumarate (SEROqueL) 25 mg Q8H PRN ORAL agitation 07/21/19 05:30 08/17/19 05:29 07/24/19 23:50 Vancomycin HCl (Vanco rx to dose) 1 ea DAILY PRN MISC Per rx protocol 07/21/19 09:00 08/17/19 14:29 Vancomycin/Sodium Chloride 275 ml @ 183.333 mls/hr Q24H IVPB 07/22/19 14:00 07/27/19 13:59 07/26/19 15:18 Allergies: Coded Allergies: PENICILLINS (Verified Allergy, Unknown, 10/27/18) tolretas cephalosporins ROS Limited/Unobtainable: Yes Subjective 84 YO M admitted with altered mental status. Now pneumonia and severe sepsis. Cover for Int Ravi-Dr Hayes. R[place] Objective Last Vital Signs Date Time Temp Pulse Resp B/P (MAP) Pulse Ox O2 Delivery O2 Flow Rate FiO2 07/26/19 16:53 60 07/26/19 16:00 Nasal Cannula 5.0 07/26/19 16:00 97.5 18 125/51 (75) 100 07/26/19 16:00 40 Laboratory Tests Test 07/26/19 03:45 07/26/19 10:55 07/26/19 14:00 White Blood Count 6.0 K/UL (4.8-10.8) # Red Blood Count 3.44 M/UL (4.70-6.10) L Hemoglobin 8.6 G/DL (14.2-18.0) L Hematocrit 26.7 % (42.0-52.0) L Mean Corpuscular Volume 78 FL (80-99) L Mean Corpuscular Hemoglobin 25.1 PG (27.0-31.0) L Mean Corpuscular Hemoglobin Concent 32.3 G/DL (32.0-36.0) Red Cell Distribution Width 15.8 % (11.6-14.8) H Platelet Count 254 K/UL (150-450) Mean Platelet Volume 5.4 FL (6.5-10.1) L Neutrophils (%) (Auto) 58.0 % (45.0-75.0) Lymphocytes (%) (Auto) 23.0 % (20.0-45.0) Monocytes (%) (Auto) 9.7 % (1.0-10.0) Eosinophils (%) (Auto) 8.4 % (0.0-3.0) H Basophils (%) (Auto) 1.0 % (0.0-2.0) Sodium Level 143 MMOL/L (136-145) Potassium Level 4.3 MMOL/L (3.5-5.1) Chloride Level 108 MMOL/L (98-107) H Carbon Dioxide Level 28 MMOL/L (21-32) Anion Gap 7 mmol/L (5-15) Blood Urea Nitrogen 17 mg/dL (7-18) Creatinine 1.0 MG/DL (0.55-1.30) Estimat Glomerular Filtration Rate > 60 mL/min (>60) Glucose Level 111 MG/DL (74-106) H Uric Acid 4.4 MG/DL (2.6-7.2) Calcium Level 9.2 MG/DL (8.5-10.1) Phosphorus Level 3.2 MG/DL (2.5-4.9) Magnesium Level 2.1 MG/DL (1.8-2.4) Total Bilirubin 0.2 MG/DL (0.2-1.0) Direct Bilirubin < 0.1 MG/DL (0.0-0.3) Aspartate Amino Transf (AST/SGOT) 31 U/L (15-37) Alanine Aminotransferase (ALT/SGPT) 25 U/L (12-78) Alkaline Phosphatase 105 U/L (46-116) Total Protein 6.9 G/DL (6.4-8.2) Albumin 1.7 G/DL (3.4-5.0) L Prothrombin Time 10.0 SEC (9.30-11.50) Prothromb Time International Ratio 0.9 (0.9-1.1) Activated Partial Thromboplast Time 33 SEC (23-33) Free Prostate Specific Antigen Pending Percent Free Prostate Specific Ag Pending Prostate Specific Antigen Total Pending Body Fluid Source Thoracentesis Body Fluid Volume 27 mL Body Fluid Appearance Hazy (Clear) Body Fluid RBC 493 /CUMM Body Fluid Total Nucleated Cells 67.5 /CUMM Body Fluid Polynuclear WBCs (%) 10 % Body Fluid Mononuclear WBCs (%) 90 % Body Fluid Mesothelial Cells (%) 0 % Body Fluid Glucose Pending Body Fluid Total Protein Pending Body Fluid Albumin Pending Intake and Output 07/25/19 07/26/19 19:00 07:00 Intake Total 930 ml 815 ml Output Total 600 ml 400 ml Balance 330 ml 415 ml Free Water 150 ml 50 ml IV Total 115 ml Tube Feeding 780 ml 650 ml Output Urine Total 600 ml 400 ml # Bowel Movements 1 4 Objective PHYSICAL EXAMINATION: GENERAL: The patient is a well-developed, well-nourished, thin-appearing male, who is in moderate respiratory distress. HEENT: Eyes, pupils are equal and responsive to light and accommodation. Extraocular movements are intact. NECK: Supple without lymphadenopathy. CHEST: Venturi mask; Lungs with bilateral wheezes and rhonchi; breath sounds decreased at bases CARDIOVASCULAR: Regular rhythm and rate. S1 and S2 are normal without murmurs, rubs, or gallops. ABDOMEN: Soft, nontender, and nondistended. Positive bowel sounds. No evidence of hepatosplenomegaly. Currently, no rebound or guarding noted. EXTREMITIES: Negative for clubbing, cyanosis, or edema. RECTAL/GENITAL: Not performed. NEUROLOGIC: Cranial nerves II through XII are grossly intact without focal deficits. Motor strength is 5/5 bilaterally. Deep tendon reflexes are 2+ plantar. Assessment/Plan Assessment/Plan ASSESSMENT: This is an 84-year-old male. 1. Bilateral pneumonia. 2. Respiratory failure. 3. Probable sepsis. 4. Altered mental status. 5. Diabetes type 2. 6. Hypothyroidism. 7. Cerebrovascular disease. 8. Acute renal failure. 9. Leukocytosis 10. Hypernatremia TREATMENT: 1. Respiratory failure/bilateral pneumonia. A Pulmonary consultation has been obtained with Dr. Vania Hui. The patient is currently admitted to the intensive care unit. The patient is currently on a venturi mask. The patient has been started empirically on vancomycin and ertapenem. A sputum culture =MRSA. ABX=vanco and cefepime per ID=Dr Matias 2. Altered mental status. This is probably secondary to hypoxia secondary to pneumonia as above. 3. Diabetes type 2. The patient was admitted without antihyperglycemic medication. 4. Hypothyroidism. Continue Levoxyl as above. 5. Cerebrovascular disease. The patient is status post cerebrovascular accident. 6. Acute renal failure. This may be secondary to acute dehydration. The patient is currently receiving intravenous fluids. 7. Severe Sepsis. ABX=cefepime, vanco and meropenem. ID=Xander Mckeon MD Jul 26, 2019 19:27
[2019-07-26 20:00] VITALS: BP 144/59
[2019-07-26] MEDS: Iron Sucrose 100 MG in NS 55 ML IV SCH (20:00)
[2019-07-27] VITALS: BP 149/58
--- NOTE | 2019-07-27 02:25 | NUR ---
NURSE NOTES: pt. appears to be agitated in bed trying to remove devices- talk therapy and comfort measures provided but unsuccessful-will administer Seroquel as ordered in eMAR- will continue to monitor pt.
--- NOTE | 2019-07-27 03:06 | NUR ---
NURSE NOTES: Seroquel appears to be successful- pt. appears to be in bed comfortably sleeping- will continue to monitor pt. and with plan of care.
[2019-07-27 04:00] VITALS: BP 138/65
[2019-07-27 05:42] LABS: BASOPHILS % (AUTO) 0.7 % (0.0-2.0); EOSINOPHILS % (AUTO) 6.2 % (0.0-3.0); HEMATOCRIT 26.9 % (42.0-52.0); HEMOGLOBIN 8.7 G/DL (14.2-18.0); LYMPHOCYTES % (AUTO) 15.8 % (20.0-45.0); MEAN CORPUSCULAR VOLUME 78 FL (80-99); MONOCYTES % (AUTO) 6.4 % (1.0-10.0); NEUTROPHILS % (AUTO) 70.9 % (45.0-75.0); PLATELET COUNT 307 K/UL (150-450); RED BLOOD COUNT 3.47 M/UL (4.70-6.10); RED CELL DISTRIBUTION WIDTH 16.3 % (11.6-14.8); WHITE BLOOD COUNT 8.2 K/UL (4.8-10.8)
[2019-07-27 05:53] LABS: ANION GAP 6 mmol/L (5-15); BLOOD UREA NITROGEN 20 mg/dL (7-18); CARBON DIOXIDE 31 MMOL/L (21-32); CHLORIDE 104 MMOL/L (98-107); POTASSIUM 4.1 MMOL/L (3.5-5.1); SODIUM 140 MMOL/L (136-145)
--- NOTE | 2019-07-27 06:58 | NUR ---
HAND-OFF: Report given to KAI Tenorio and KAI Day- pt. remians stable and no signs of distress noted- aware to f/u on abnormal am labs.
--- NOTE | 2019-07-27 07:10 | NUR ---
NURSE NOTES: Received report from KAI Nunez. The patient is resting on the bed without acute distress or shortness of breath. The patient's bed in the lowest position, call light in reach, and fall and aspiration precaution reinforced. IV site intact and patent. NGT on right nare and running Glucerna 1.2 @ 65mL/hr per order. The patient is on Venturi mask 30% FiO2 and 4L. Will continue plan of care.
[2019-07-27 08:00] VITALS: BP_SYST 138; BP_DIAS 68; BP_DIAS 72
--- NOTE | 2019-07-27 08:30 | NUR ---
NURSE NOTES: Dr. Benites at the bedside assessed the patient. No new order at this time. Will continue plan of care.
--- NOTE | 2019-07-27 09:30 | NUR ---
NURSE NOTES: The patient is stable without acute distress or shortness of breath. NSR on monitor and SpO2 100% on Venturi mask FiO2 30% 4L. Will continue plan of care.
--- NOTE | 2019-07-27 10:47 | NUR ---
WEEKLY SWALLOW/SPEECH THERAPY SUMMARY: PATIENT IS ON [place] AND IS ALERT AND ABLE TO FOLLOW ORAL COMMANDS AND SAY SOME AUDIBLE WORDS TO VISITOR SERVICES ASSISTANT (IN SOFT BUT CLEAR VOICE). THE PATIENT STATES HE WANTS TO HAVE SOME FOODS/LIQUIDS BY MOUTH TODAY. LEFT MESSAGE WITH DR DIAZ WHO APPROVED PATIENT TO HAVE PROCEDURE TODAY (HE DID SIGN ORDER FOR MODIFIED BARIUM SWALLOW STATUS PREVIOUSLY). HE IS ON THE VENTURIMASK WITH WITH 4 LITERS 02, Fi02 30% and SP02 100%. RESP RATE IS 18 BPM. PER RN, HE IS STABLE FOR HAVING A MODIFIED BARIUM SWALLOW STUDY TODAY BUT HE HAD PERIODS OF AGITATION AND PULLS LINES (TRIED TO PULL OUT NGT PREVIOUSLY). per CXR ON 07/26/19 Indication: Status post thoracentesis Technique: One view of the chest Comparison: 07/25/2019 Findings: Interim marked improvement of previously demonstrated large right pleural effusion, with small amount of residual pleural fluid evident. No pneumothorax. Small to moderate left pleural effusion is again demonstrated. The heart is enlarged. Stable satisfactory position of nasogastric tube Impression: Improved right pleural effusion, post thoracentesis. No radiographically evident complication Otherwise stable findings as described PLAN: COMPLETE MOD BARIUM SWALLOW STUDY TODAY WITH RNMANPREET TO COME DOWN for the PROCEDURE. CONTINUE WITH NONORAL (NGT) FEEDINGS AND ORAL CARE FOR NOW. CONTINUE WITH SKILLED DYSPHAGIA MANAGEMENT AND TX WHEN READY. Addendum: 07/27/19 at 1050 by MARIE GIPSON VISITOR SERVICES ASSISTANT GOALS NOT MET FOR INTAKE YET. GOALS MET FOR STAFF EDUCATED/TRAINED IN ORAL CARE NEEDS AND ASPIRATION PRECAUTIONS FOR WHEN NGT FEEDINGS ARE RUNNING
--- NOTE | 2019-07-27 11:00 | NUR ---
NURSE NOTES: Dr. Hui at the bedside assessed the patient. Notified abnormal lab including hemoglobin. No new order at this time. Dr. Hui ordered Heparin 5000unit SQ q12hr for DVT prophylaxis. Will carry out the order as soon as possible. Will continue plan of care.
--- NOTE | 2019-07-27 11:02 | Pulmonology Progress Note ---
Assessment/Plan Problems: (1) Nosocomial pneumonia (2) Pleural effusion Assessment & Plan: thoracentesis done, 780 cc removed (3) Sepsis Assessment & Plan: afebrile, wbc wnl (4) Atrial fibrillation (5) Acute renal failure (6) Acute metabolic encephalopathy (7) Severe anemia (8) Alzheimer's dementia (9) History of CVA (cerebrovascular accident) (10) Diabetes mellitus (11) Hypothyroidism Assessment/Plan no new complains, improving more awake failed the swallow study previously, video swallow study today cxr showing better aeration in RLL, minimal effusion and consolidation respiratory treatment NG tube in, tolerating well sliding scale f/u renal function K supplement Venofer for iron deficiency DVT prophylaxis. resume Heparin SQ after thoracentesis Subjective Interval Events: 780 cc from right thorax was drained, f/u cxr showed no pneumothorax Allergies: Coded Allergies: PENICILLINS (Verified Allergy, Unknown, 10/27/18) tolretas cephalosporins Objective Last 24 Hour Vital Signs Date Time Temp Pulse Resp B/P (MAP) Pulse Ox O2 Delivery O2 Flow Rate FiO2 07/27/19 08:27 68 138/72 07/27/19 08:00 65 07/27/19 08:00 4.0 30 07/27/19 08:00 Venturi Mask 4.0 07/27/19 08:00 97.7 68 18 138/72 (94) 98 07/27/19 04:00 98.7 71 20 138/65 (89) 100 07/27/19 04:00 66 07/27/19 04:00 Nasal Cannula 5.0 07/27/19 04:00 4.0 30 07/27/19 03:26 66 07/27/19 00:00 98.4 67 20 149/58 (88) 100 07/27/19 00:00 Nasal Cannula 5.0 07/27/19 00:00 4.0 30 07/26/19 23:29 64 07/26/19 20:00 4.0 30 07/26/19 20:00 98.9 63 22 144/59 (87) 100 07/26/19 20:00 Nasal Cannula 5.0 07/26/19 19:26 96 Venturi Mask 4.0 30 07/26/19 19:26 74 18 95 Venturi Mask 4.0 30 07/26/19 19:25 61 07/26/19 16:53 60 07/26/19 16:00 Nasal Cannula 5.0 07/26/19 16:00 97.5 61 18 125/51 (75) 100 07/26/19 16:00 8.0 40 07/26/19 12:00 Nasal Cannula 5.0 07/26/19 12:00 98.8 64 18 123/47 (72) 99 07/26/19 12:00 5.0 07/26/19 11:46 66 Intake and Output 07/26/19 07/27/19 19:00 07:00 Intake Total 1246.666 ml 940 ml Output Total 300 ml 625 ml Balance 946.666 ml 315 ml Free Water 50 ml IV Total 366.666 ml 240 ml Tube Feeding 780 ml 650 ml Other 100 ml Output Urine Total 300 ml 625 ml # Voids 1 # Bowel Movements 1 1 General Appearance: cachetic HEENT: normocephalic, atraumatic Respiratory/Chest: chest wall non-tender, crackles/rales Cardiovascular: normal peripheral pulses, normal rate Abdomen: normal bowel sounds, no organomegaly Genitourinary: normal external genitalia Extremities: no clubbing Skin: no rash Neurologic/Psychiatric: web publisher II-XII grossly normal Laboratory Tests 07/26/19 14:00: Body Fluid Source Thoracentesis, Body Fluid Volume 27, Body Fluid Appearance Hazy, Body Fluid RBC 493, Body Fluid Total Nucleated Cells 67.5, Body Fluid Polynuclear WBCs (%) 10, Body Fluid Mononuclear WBCs (%) 90, Body Fluid Mesothelial Cells (%) 0, Body Fluid Glucose [Pending], Body Fluid Total Protein [Pending], Body Fluid Albumin [Pending] 07/27/19 03:50: White Blood Count 8.2, Red Blood Count 3.47L, Hemoglobin 8.7L, Hematocrit 26.9L , Mean Corpuscular Volume 78L, Mean Corpuscular Hemoglobin 25.2L, Mean Corpuscular Hemoglobin Concent 32.5, Red Cell Distribution Width 16.3H, Platelet Count 307, Mean Platelet Volume 6.3L, Neutrophils (%) (Auto) 70.9, Lymphocytes (%) (Auto) 15.8L, Monocytes (%) (Auto) 6.4, Eosinophils (%) (Auto) 6.2H, Basophils (%) (Auto) 0.7, Sodium Level 140, Potassium Level 4.1, Chloride Level 104, Carbon Dioxide Level 31, Anion Gap 6, Blood Urea Nitrogen 20H, Creatinine 1.0, Estimat Glomerular Filtration Rate > 60, Glucose Level 111H, Calcium Level 9.0 Current Medications Medications (Trade) Dose Ordered Sig/Kike Route PRN Reason Start Time Stop Time Status Last Admin Dose Admin Acetaminophen (Tylenol) 650 mg Q4H PRN ORAL fever 07/21/19 05:30 08/17/19 05:29 Albuterol/ Ipratropium (Albuterol/ Ipratropium) 3 ml Q4H PRN HHN Shortness of Breath 07/23/19 20:00 07/28/19 19:59 07/24/19 15:41 Amlodipine Besylate (Norvasc) 2.5 mg DAILY NG 07/24/19 09:00 08/23/19 08:59 07/27/19 08:27 Folic Acid (Folate) 2 mg DAILY ORAL 07/21/19 09:00 08/19/19 11:29 07/27/19 08:28 Iron Sucrose 100 mg/Sodium Chloride 60 ml @ 240 mls/hr BEDTIME IV 07/24/19 21:00 07/27/19 21:14 07/26/19 20:00 Lansoprazole (Prevacid) 30 mg BID NG 07/23/19 18:00 08/22/19 17:59 07/27/19 08:27 Levothyroxine Sodium (Synthroid) 50 mcg DAILY@0630 ORAL 07/21/19 06:30 08/18/19 06:29 07/27/19 05:59 Ondansetron HCl (Zofran) 4 mg Q6H PRN IVP Nausea & Vomiting 07/21/19 08:15 08/17/19 14:14 Polyethylene Glycol (Miralax) 17 gm DAILYPRN PRN ORAL Constipation 07/21/19 05:30 08/17/19 05:29 Quetiapine Fumarate (SEROqueL) 25 mg Q8H PRN ORAL agitation 07/21/19 05:30 08/17/19 05:29 07/27/19 02:27 Vancomycin HCl (Vanco rx to dose) 1 ea DAILY PRN MISC Per rx protocol 07/21/19 09:00 08/17/19 14:29 Vancomycin/Sodium Chloride 275 ml @ 183.333 mls/hr Q24H IVPB 07/22/19 14:00 07/27/19 13:59 07/26/19 15:18 Vania Hui MD Jul 27, 2019 11:02
[2019-07-27 12:00] VITALS: BP 146/66
--- NOTE | 2019-07-27 12:18 | Infectious Diseases Prog Note ---
Assessment/Plan Assessment/Plan Assessment: Severe sepsis Pneumonia Probable UTI -07/25 CXR: Markedly increased right basilar opacity, likely increasing pleural fluid -07/22 CXR: Worsening CHF -u/a wbc 15-20, nit neg, leuk +3; ucx <10k Proteus sp (R Amp, ancef, macrobid ; otherwise), 70-80K S. viridans -07/19 CXR: marked worsening of pleural and parenchymal disease at the right lung base.There is also increasing parenchymal consolidation and atelectasis in the left infrahilar region. -CXR: Perihilar and basilar infiltrates. Findings suspicious for pneumonia. -influenza sc neg -Bcx NTD -sp cx MRSA, C. albicans -legionella ag urine neg R pleural effusion -07/26 SP thoracentesis: Successful ultrasound-guided thoracentesis, yielding 780 milliliters of fluid -07/26 CXR: Improved right pleural effusion, post thoracentesis. No radiographically evident complication Hypothermia, SP Leukocytosis, SP Acute respiratory failure, sp NRB mask/VEnturi mask Lactic acidosis, SP RAMAN, SP Dm2 HTN non verbal hypothyroidism CVA hx of UTI anemia dementia [facility] resident Plan: -Continue empiric IV Vancomycin #/ for MRSA PNA -07/26 SP Cefepime #5 -07/22 SP Barbara #4 -07/19 SP Ertapenem #2 -07/18 SP IV Amikacin x1, Levaquin x1 -f/u cx -Monitor CBC/CMP, temperatures -aspiration precautions Thank you for this consultation. Will continue to follow along with you. Subjective Allergies: Coded Allergies: PENICILLINS (Verified Allergy, Unknown, 10/27/18) tolretas cephalosporins Subjective afebrile no leukocytosis on VM s/p thoracentesis yesterday Objective Vital Signs Last 24 Hour Vital Signs Date Time Temp Pulse Resp B/P (MAP) Pulse Ox O2 Delivery O2 Flow Rate FiO2 07/27/19 08:27 68 138/72 07/27/19 08:00 65 07/27/19 08:00 4.0 30 07/27/19 08:00 Venturi Mask 4.0 07/27/19 08:00 97.7 68 18 138/72 (94) 98 07/27/19 04:00 98.7 71 20 138/65 (89) 100 07/27/19 04:00 66 07/27/19 04:00 Nasal Cannula 5.0 07/27/19 04:00 4.0 30 07/27/19 03:26 66 07/27/19 00:00 98.4 67 20 149/58 (88) 100 07/27/19 00:00 Nasal Cannula 5.0 07/27/19 00:00 4.0 30 07/26/19 23:29 64 07/26/19 20:00 4.0 30 07/26/19 20:00 98.9 63 22 144/59 (87) 100 07/26/19 20:00 Nasal Cannula 5.0 07/26/19 19:26 96 Venturi Mask 4.0 30 07/26/19 19:26 74 18 95 Venturi Mask 4.0 30 07/26/19 19:25 61 07/26/19 16:53 60 07/26/19 16:00 Nasal Cannula 5.0 07/26/19 16:00 97.5 61 18 125/51 (75) 100 07/26/19 16:00 8.0 40 Height (Feet): 6 Height (Inches): 1.00 Weight (Pounds): 150 Objective GENERAL: no respiratory distress. HEENT: Eyes, pupils are equal and responsive to light and accommodation. Extraocular movements are intact. NECK: Supple CHEST: Lungs are clear to auscultation bilaterally without wheezes or rales. CARDIOVASCULAR: Regular rhythm and rate. S1 and S2 are normal without murmurs, rubs, or gallops. ABDOMEN: Soft, nontender, and nondistended. Positive bowel sounds. No evidence of hepatosplenomegaly. EXTREMITIES: Negative for clubbing, cyanosis, or edema. Laboratory Tests Test 07/26/19 14:00 07/27/19 03:50 Body Fluid Source Thoracentesis Body Fluid Volume 27 mL Body Fluid Appearance Hazy (Clear) Body Fluid RBC 493 /CUMM Body Fluid Total Nucleated Cells 67.5 /CUMM Body Fluid Polynuclear WBCs (%) 10 % Body Fluid Mononuclear WBCs (%) 90 % Body Fluid Mesothelial Cells (%) 0 % Body Fluid Glucose Pending Body Fluid Total Protein Pending Body Fluid Albumin 1.5 g/dL (Not Estab.) White Blood Count 8.2 K/UL (4.8-10.8) Red Blood Count 3.47 M/UL (4.70-6.10) L Hemoglobin 8.7 G/DL (14.2-18.0) L Hematocrit 26.9 % (42.0-52.0) L Mean Corpuscular Volume 78 FL (80-99) L Mean Corpuscular Hemoglobin 25.2 PG (27.0-31.0) L Mean Corpuscular Hemoglobin Concent 32.5 G/DL (32.0-36.0) Red Cell Distribution Width 16.3 % (11.6-14.8) H Platelet Count 307 K/UL (150-450) Mean Platelet Volume 6.3 FL (6.5-10.1) L Neutrophils (%) (Auto) 70.9 % (45.0-75.0) Lymphocytes (%) (Auto) 15.8 % (20.0-45.0) L Monocytes (%) (Auto) 6.4 % (1.0-10.0) Eosinophils (%) (Auto) 6.2 % (0.0-3.0) H Basophils (%) (Auto) 0.7 % (0.0-2.0) Sodium Level 140 MMOL/L (136-145) Potassium Level 4.1 MMOL/L (3.5-5.1) Chloride Level 104 MMOL/L (98-107) Carbon Dioxide Level 31 MMOL/L (21-32) Anion Gap 6 mmol/L (5-15) Blood Urea Nitrogen 20 mg/dL (7-18) H Creatinine 1.0 MG/DL (0.55-1.30) Estimat Glomerular Filtration Rate > 60 mL/min (>60) Glucose Level 111 MG/DL (74-106) H Calcium Level 9.0 MG/DL (8.5-10.1) Current Medications Medications (Trade) Dose Ordered Sig/Kike Route PRN Reason Start Time Stop Time Status Last Admin Dose Admin Acetaminophen (Tylenol) 650 mg Q4H PRN ORAL fever 07/21/19 05:30 08/17/19 05:29 Albuterol/ Ipratropium (Albuterol/ Ipratropium) 3 ml Q4H PRN HHN Shortness of Breath 07/23/19 20:00 07/28/19 19:59 2/16/20 15:41 Amlodipine Besylate (Norvasc) 2.5 mg DAILY NG 07/24/19 09:00 08/23/19 08:59 07/27/19 08:27 Folic Acid (Folate) 2 mg DAILY ORAL 07/21/19 09:00 08/19/19 11:29 07/27/19 08:28 Iron Sucrose 100 mg/Sodium Chloride 60 ml @ 240 mls/hr BEDTIME IV 07/24/19 21:00 07/27/19 21:14 07/26/19 20:00 Lansoprazole (Prevacid) 30 mg BID NG 07/23/19 18:00 08/22/19 17:59 07/27/19 08:27 Levothyroxine Sodium (Synthroid) 50 mcg DAILY@0630 ORAL 07/21/19 06:30 08/18/19 06:29 07/27/19 05:59 Ondansetron HCl (Zofran) 4 mg Q6H PRN IVP Nausea & Vomiting 07/21/19 08:15 08/17/19 14:14 Polyethylene Glycol (Miralax) 17 gm DAILYPRN PRN ORAL Constipation 07/21/19 05:30 08/17/19 05:29 Quetiapine Fumarate (SEROqueL) 25 mg Q8H PRN ORAL agitation 07/21/19 05:30 08/17/19 05:29 07/27/19 02:27 Vancomycin HCl (Vanco rx to dose) 1 ea DAILY PRN MISC Per rx protocol 07/21/19 09:00 08/17/19 14:29 Vancomycin/Sodium Chloride 275 ml @ 183.333 mls/hr Q24H IVPB 07/22/19 14:00 07/27/19 13:59 07/26/19 15:18 Danielle Roach M.D. Jul 27, 2019 12:18
--- NOTE | 2019-07-27 12:30 | NUR ---
NURSE NOTES: The patient went down and came up from video swallow evaluation with two RNs in a safe manner. Will continue plan of care.
[2019-07-27] MEDS ORDERED: Varibar Pudding 230ml MC PRN (12:45)
[2019-07-27] MEDS ORDERED: Varibar Honey 250ml MC PRN (12:45)
[2019-07-27] MEDS ORDERED: Varibar Nectar 240ml MC PRN (12:45)
--- NOTE | 2019-07-27 13:00 | NUR ---
NURSE NOTES: The patient pulled out NGT. Inserted new NGT on right nares. Dr. Hui ordered stat abdominal x-ray for NGT placement. Will continue plan of care.
--- NOTE | 2019-07-27 13:21 | NUR ---
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 98.7 HR 71 RR 20 B/P 138/65 BUN 20 THORACENTESIS 750ML REMOVED IS: VANCO IV IRON IV ALB HHN STEP DOWN STATUS
--- NOTE | 2019-07-27 14:16 | Nephrology Progress Note ---
Assessment/Plan Problem List: (1) Acute renal failure (2) Severe anemia (3) Sepsis (4) Diabetes mellitus (5) Hypothyroidism Assessment Alexi Cr lowering 2.6 to 1.8 Sepsis / Pneumonia / UTI / Hypothermia Respiratory failure HypoThyroidism h/o CVA Anemia Dementia Plan DC Hydrate IV iron Phos supplement as needed antibiotics avoid nephrotoxics monitor renal parameters check TFTs- adjust synthroid dose Urine eos per orders Subjective ROS Limited/Unobtainable: Yes Objective Objective Last 24 Hour Vital Signs Date Time Temp Pulse Resp B/P (MAP) Pulse Ox O2 Delivery O2 Flow Rate FiO2 07/27/19 08:27 68 138/72 07/27/19 08:00 65 07/27/19 08:00 4.0 30 07/27/19 08:00 Venturi Mask 4.0 07/27/19 08:00 97.7 68 18 138/72 (94) 98 07/27/19 04:00 98.7 71 20 138/65 (89) 100 07/27/19 04:00 66 07/27/19 04:00 Nasal Cannula 5.0 07/27/19 04:00 4.0 30 07/27/19 03:26 66 07/27/19 00:00 98.4 67 20 149/58 (88) 100 07/27/19 00:00 Nasal Cannula 5.0 07/27/19 00:00 4.0 30 07/26/19 23:29 64 07/26/19 20:00 4.0 30 07/26/19 20:00 98.9 63 22 144/59 (87) 100 07/26/19 20:00 Nasal Cannula 5.0 07/26/19 19:26 96 Venturi Mask 4.0 30 07/26/19 19:26 74 18 95 Venturi Mask 4.0 30 07/26/19 19:25 61 07/26/19 16:53 60 07/26/19 16:00 Nasal Cannula 5.0 07/26/19 16:00 97.5 61 18 125/51 (75) 100 07/26/19 16:00 8.0 40 Intake and Output 07/26/19 07/27/19 19:00 07:00 Intake Total 1246.666 ml 940 ml Output Total 300 ml 625 ml Balance 946.666 ml 315 ml Free Water 50 ml IV Total 366.666 ml 240 ml Tube Feeding 780 ml 650 ml Other 100 ml Output Urine Total 300 ml 625 ml # Voids 1 # Bowel Movements 1 1 Laboratory Tests 07/27/19 03:50: White Blood Count 8.2, Red Blood Count 3.47L, Hemoglobin 8.7L, Hematocrit 26.9L , Mean Corpuscular Volume 78L, Mean Corpuscular Hemoglobin 25.2L, Mean Corpuscular Hemoglobin Concent 32.5, Red Cell Distribution Width 16.3H, Platelet Count 307, Mean Platelet Volume 6.3L, Neutrophils (%) (Auto) 70.9, Lymphocytes (%) (Auto) 15.8L, Monocytes (%) (Auto) 6.4, Eosinophils (%) (Auto) 6.2H, Basophils (%) (Auto) 0.7, Sodium Level 140, Potassium Level 4.1, Chloride Level 104, Carbon Dioxide Level 31, Anion Gap 6, Blood Urea Nitrogen 20H, Creatinine 1.0, Estimat Glomerular Filtration Rate > 60, Glucose Level 111H, Calcium Level 9.0 Height (Feet): 6 Height (Inches): 1.00 Weight (Pounds): 150 General Appearance: no apparent distress, lethargic Cardiovascular: normal rate Respiratory/Chest: decreased breath sounds Abdomen: soft Objective no change Clovis Benites MD Jul 27, 2019 14:16
[2019-07-27] MEDS: Vancomycin 1.25gm/NS Premix q24h IVPB SCH (14:19)
--- NOTE | 2019-07-27 14:26 | NUR ---
ST NOTES: COMPLETED MOD BARIUM SWALLOW STUDY, SEE SUMMARY AND FULL REPORT TO FOLLOW. THE PATIENT WAS ON THE VENTURI-MASK WITH 10 LITERS 02. INITIAL IMPRESSIONS MODERATE TO SEVERE ORAL PREP AND OROPHARYNGEAL DYSPHAGIA WITH SIGNIFICANT INCREASE IN OVERALL TRANSIT TIMES DUE TO SENSORIMOTOR DEFICITS. DEFICITS COMPOUNDED BY RESPIRATORY PROBLEMS (RESP RATE ELEVATES AT TIMES TO 28 BPM EVEN AT REST), OVERALL FATIGUE, REFUSED FURTHER PO TRIALS AFTER 5TH PO TRIAL, AND POOR ABILITY TO USE COMPENSATORY SWALLOW STRATEGIES TO REDUCE ASPIRATION RISK. THIN LIQUIDS NO ASPIRATION/PENETRATION WITH TSP LEVEL BUT HAD SILENT (NO COUGH) AND TRACE ASPIRATION WITH SIP VIA CUP DUE TO DELAYED SWALLOW. FURTHER RISK FOR ASPIRATION AFTER THE SWALLOW DUE TO OROPHARYNGEAL DYSMOTILITY WHICH RESULTED IN MILD RESIDUE MOSTLY CLEARED WITH DELAYED AND CUED HARD SWALLOW. NECTAR THICK LIQUIDS: TSP - NO ASPIRATION BUT HAD TRACE SILENT LARYNGEAL PENETRATION (LP) ABOVE VOCAL FOLDS WITH EJECTION DUE TO DELAYED SWALLOW AND LATE/INCOMPLETE CLOSURE OF LARYNGEAL VESTIBULE. CUP - NO ASPIRATION BUT HAD DEEPER TRACE LARYNGEAL PENETRATION TO LEVEL OF VOCAL FOLDS BEFORE THE SWALLOW DUE TO DELAYED SWALLOW. OVERALL HAD ADDITIONAL RISK OF ASPIRATION AFTER THE SWALLOW DUE TO OROPHARYNGEAL (OP) DYSMOTILITY RESULTING IN MILD OP RESIDUE CLEARED AFTER A VERY DELAYED AND CUED HARD SWALLOW. ALTHOUGH VITALS SIGNS WERE ADEQUATE, PATIENT REFUSED MORE PO TRIALS. ASPIRATION/PENETRATION RISK AND REDUCED SWALLOW EFFICIENCY DUE TO THE FOLLOWING COMPONENTS: Oral Impairment Tongue Control Bolus prep/mastication Bolus transport/lingual motion Oral residue Init. pharyngeal swallow Pharyngeal Impairment Laryngeal elevation (LE) Ant. hyoid excursion Epiglottic movement Late and incomplete laryngeal vestibule closure Pharyngeal stripping wave Pharyngoesophageal segment opening Tongue base retraction Pharyngeal residue Decreased pharyngeal sensation ESOPHAGEAL PHASE GROSSLY FUNCTIONAL BUT VIEW WAS LIMITED IN LATERAL/OBLIQUE. TRIAL TX: LIMITED SINCE PT NOT ABLE TO FOLLOW MOST COMMANDS LIKE CHIN TUCK AND EFFORT BREATH HOLD. WAS ABLE TO COMPLETE AN EXTRA SWALLOW AFTER A LONG DELAY. QUESTIONABLE IF USED HARD SWALLOW WHEN CUED BUT SECOND SWALLOWS DID CLEAR MOST OF THE OROPHARYNGEAL RESIDUE. RECOMMENDATIONS: CONSIDERING THAT HE HAS A HIGH RISK FOR INADEQUATE PO INTAKE AND CHRONIC TRACE ASPIRATION WITH ALL CONSISTENCIES GIVEN (PARTICULARLY IF COMPENSATORY SWALLOW STRATEGIES ARE NOT USED), HE SHOULD CONTINUE WITH NONORAL FEEDINGS AND ORAL CARE FOR NOW CONSIDER LONGER TERM NONORAL FEEDINGS ONLY IF THE FAMILY AND PATIENT ARE RECEPTIVE. LEFT MESSAGE WITH DR DIAZ AND RN, MANPREET, TO TAKE TO DR GILMORE ABOUT ABOVE-NOTED INFORMATION. CONTINUE WITH SKILLED MARKETING TECHNOLOGY COORDINATOR DYSPHAGIA MANAGEMENT AND TX WITH PO TRIALS WITH MARKETING TECHNOLOGY COORDINATOR ONLY (TSP NECTAR THICK WATER) FOR NOW. Addendum: 07/27/19 at 1434 by MARIE GIPSON MARKETING TECHNOLOGY COORDINATOR ADDENDUM: SPOKE WITH PATIENT'S NIECE WHO WANTS TO ASK HER UNCLE WHAT HIS WISHES ARE ABOUT HAVING A PEG VERSUS PO INTAKE FOR COMFORT FEEDING AND QUALITY OF LIFE PURPOSES. SHE WILL TRY TO TELL THE PHYSICIAN AND STAFF WHAT HE AND SHE DECIDE. THE PATIENT PULLED OUT HIS NGT BUT IT WAS REPLACED.
--- NOTE | 2019-07-27 14:40 | NUR ---
RADIOLOGY DEPT., ABDOMEN X-RAY FOR NGT PLCMT PERFORMED.-P.DYE
--- NOTE | 2019-07-27 14:49 | Diagnostic Imaging Report ---
Indication: Post nasogastric tube placement Technique: Supine view of the upper abdomen Comparison: 07/23/2019 Findings: There is a nasogastric tube shaft coiled within the hypopharynx, tip at the level of the mid thoracic esophagus. There are bilateral parenchymal infiltrates and bilateral pleural effusions noted. Normal heart size. Contrast from recent swallowing study is seen within the small bowel. There are cholecystectomy clips. Impression: Malpositioned nasogastric tube. Patient's nurse notified at the time of interpretation Other findings as noted
[2019-07-27 16:00] VITALS: BP 132/55
--- NOTE | 2019-07-27 16:00 | NUR ---
NURSE NOTES: Pending for NGT placement confirmation. The patient is stable without acute distress or shortness of breath. Will continue plan of care.
--- NOTE | 2019-07-27 16:41 | Diagnostic Imaging Report ---
Indication: Post reinsertion nasogastric Technique: Supine view of the upper abdomen/chest Comparison: 1 1/2 hour earlier Findings: Nasogastric tube is coiled in the hypopharynx, does not reach the esophagus. Bilateral pleural effusions and bilateral infiltrates are again demonstrated Impression: Persistent malpositioned nasogastric tube. Patient's nurse notified at the time of interpretation
--- NOTE | 2019-07-27 16:45 | NUR ---
NURSE NOTES: NGT not in placed, coiled inside mouth reinsertion done again,will order another KUB again.
--- NOTE | 2019-07-27 17:28 | NUR ---
NURSE NOTES: NGT confirmed in placed per abdominal Xray,
--- NOTE | 2019-07-27 17:35 | Diagnostic Imaging Report ---
Indication: Post nasogastric tube placement Technique: Supine view of the abdomen Comparison: 1 1/2 hours earlier Findings: Interim replacement of previously malpositioned nasogastric tube, tip now projecting at the level gastric fundus, proximal port well beyond the exact level of the gastroesophageal junction. Mildly dilated mid abdominal small bowel loops are demonstrated. Contrast from recent swallowing study is seen in the distal nondilated small bowel. There is a fracture of the right hip which is chronic, also demonstrated on prior 04/25/2018 CT scan. Surgical hardware is seen in the left hip there are cholecystectomy clips Impression: Satisfactory nasogastric tube placement Mildly dilated upper abdominal small bowel loops, significance uncertain given evidence of recent transit of contrast given during swallowing study Other findings as noted This agrees with the preliminary interpretation provided overnight by [facility] teleradiology service.
--- NOTE | 2019-07-27 19:09 | NUR ---
NURSE NOTES: Received report from Jona QUINN and KAI Day, pt. in bed awake, Appears to be alert to name- but confused, call light within easy reach, bed in lowest position, bed locked in position and side rails up x's3, HOB elevated, pt. appears to be sating well on 4L venturi Mask at 30% Fio2- no distress noted, Glucerna 1.2 running via Right Nare at 65cc/hr- no residual noted, pt. appears to be clean and dry, comfort measures provided, Left hand 22G IV intact and patent, Bilateral wrist restraints removed- skin intact and pulses palpable, safety measures continued, will continue with plan of care.
--- NOTE | 2019-07-27 19:15 | Internal Med Progress Note ---
Subjective Date of Service: Jul 27, 2019 Physician Name Xander Bah Attending Physician Lamont Hayes MD Current Medications Medications (Trade) Dose Ordered Sig/Kike Route PRN Reason Start Time Stop Time Status Last Admin Dose Admin Acetaminophen (Tylenol) 650 mg Q4H PRN ORAL fever 07/21/19 05:30 08/17/19 05:29 Albuterol/ Ipratropium (Albuterol/ Ipratropium) 3 ml Q4H PRN HHN Shortness of Breath 07/23/19 20:00 07/28/19 19:59 07/24/19 15:41 Amlodipine Besylate (Norvasc) 2.5 mg DAILY NG 07/24/19 09:00 08/23/19 08:59 07/27/19 08:27 Barium Sulfate (Varibar Honey) 250 ml NOW PRN MC RAD 07/27/19 12:45 07/30/19 12:33 Barium Sulfate (Varibar [place]) 240 ml NOW PRN MC RAD 07/27/19 12:45 07/30/19 12:33 Barium Sulfate (Varibar Pudding) 230 ml NOW PRN MC RAD 07/27/19 12:45 07/30/19 12:33 Folic Acid (Folate) 2 mg DAILY ORAL 07/21/19 09:00 08/19/19 11:29 07/27/19 08:28 Iron Sucrose 100 mg/Sodium Chloride 60 ml @ 240 mls/hr BEDTIME IV 07/24/19 21:00 07/27/19 21:14 07/26/19 20:00 Lansoprazole (Prevacid) 30 mg BID NG 07/23/19 18:00 08/22/19 17:59 07/27/19 08:27 Levothyroxine Sodium (Synthroid) 50 mcg DAILY@0630 ORAL 07/21/19 06:30 08/18/19 06:29 07/27/19 05:59 Ondansetron HCl (Zofran) 4 mg Q6H PRN IVP Nausea & Vomiting 07/21/19 08:15 08/17/19 14:14 Polyethylene Glycol (Miralax) 17 gm DAILYPRN PRN ORAL Constipation 07/21/19 05:30 08/17/19 05:29 Quetiapine Fumarate (SEROqueL) 25 mg Q8H PRN ORAL agitation 07/21/19 05:30 08/17/19 05:29 07/27/19 02:27 Vancomycin HCl (Vanco rx to dose) 1 ea DAILY PRN MISC Per rx protocol 07/21/19 09:00 08/17/19 14:29 Vancomycin/Sodium Chloride 275 ml @ 183.333 mls/hr Q24H IVPB 07/22/19 14:00 07/27/19 23:59 07/27/19 14:19 Allergies: Coded Allergies: PENICILLINS (Verified Allergy, Unknown, 10/27/18) tolretas cephalosporins ROS Limited/Unobtainable: Yes Subjective 84 YO M admitted with altered mental status. Now pneumonia and severe sepsis. Cover for Int Med-Dr Hayes. [place] Objective Last Vital Signs Date Time Temp Pulse Resp B/P (MAP) Pulse Ox O2 Delivery O2 Flow Rate FiO2 07/27/19 16:00 4.0 30 07/27/19 16:00 98.1 60 18 132/55 (80) 95 07/27/19 16:00 Venturi Mask Laboratory Tests Test 07/27/19 03:50 White Blood Count 8.2 K/UL (4.8-10.8) Red Blood Count 3.47 M/UL (4.70-6.10) L Hemoglobin 8.7 G/DL (14.2-18.0) L Hematocrit 26.9 % (42.0-52.0) L Mean Corpuscular Volume 78 FL (80-99) L Mean Corpuscular Hemoglobin 25.2 PG (27.0-31.0) L Mean Corpuscular Hemoglobin Concent 32.5 G/DL (32.0-36.0) Red Cell Distribution Width 16.3 % (11.6-14.8) H Platelet Count 307 K/UL (150-450) Mean Platelet Volume 6.3 FL (6.5-10.1) L Neutrophils (%) (Auto) 70.9 % (45.0-75.0) Lymphocytes (%) (Auto) 15.8 % (20.0-45.0) L Monocytes (%) (Auto) 6.4 % (1.0-10.0) Eosinophils (%) (Auto) 6.2 % (0.0-3.0) H Basophils (%) (Auto) 0.7 % (0.0-2.0) Sodium Level 140 MMOL/L (136-145) Potassium Level 4.1 MMOL/L (3.5-5.1) Chloride Level 104 MMOL/L (98-107) Carbon Dioxide Level 31 MMOL/L (21-32) Anion Gap 6 mmol/L (5-15) Blood Urea Nitrogen 20 mg/dL (7-18) H Creatinine 1.0 MG/DL (0.55-1.30) Estimat Glomerular Filtration Rate > 60 mL/min (>60) Glucose Level 111 MG/DL (74-106) H Calcium Level 9.0 MG/DL (8.5-10.1) Microbiology Date/Time Source Procedure Growth Status 07/26/19 14:00 Pleural Fluid Gram Stain Pending Resulted 07/26/19 14:00 Pleural Fluid Body Fluid Culture - Preliminary NO GROWTH Resulted Intake and Output 07/26/19 07/27/19 19:00 07:00 Intake Total 1246.666 ml 940 ml Output Total 300 ml 625 ml Balance 946.666 ml 315 ml Free Water 50 ml IV Total 366.666 ml 240 ml Tube Feeding 780 ml 650 ml Other 100 ml Output Urine Total 300 ml 625 ml # Voids 1 # Bowel Movements 1 1 Objective PHYSICAL EXAMINATION: GENERAL: The patient is a well-developed, well-nourished, thin-appearing male, who is in moderate respiratory distress. HEENT: Eyes, pupils are equal and responsive to light and accommodation. Extraocular movements are intact. NECK: Supple without lymphadenopathy. CHEST: Venturi mask; Lungs with bilateral wheezes and rhonchi; breath sounds decreased at bases CARDIOVASCULAR: Regular rhythm and rate. S1 and S2 are normal without murmurs, rubs, or gallops. ABDOMEN: Soft, nontender, and nondistended. Positive bowel sounds. No evidence of hepatosplenomegaly. Currently, no rebound or guarding noted. EXTREMITIES: Negative for clubbing, cyanosis, or edema. RECTAL/GENITAL: Not performed. NEUROLOGIC: Cranial nerves II through XII are grossly intact without focal deficits. Motor strength is 5/5 bilaterally. Deep tendon reflexes are 2+ plantar. Assessment/Plan Assessment/Plan ASSESSMENT: This is an 84-year-old male. 1. Bilateral pneumonia. 2. Respiratory failure. 3. Probable sepsis. 4. Altered mental status. 5. Diabetes type 2. 6. Hypothyroidism. 7. Cerebrovascular disease. 8. Acute renal failure. 9. Leukocytosis 10. Hypernatremia 11. Right pleural effusion TREATMENT: 1. Respiratory failure/bilateral pneumonia. A Pulmonary consultation has been obtained with Dr. Vania Hui. The patient is currently admitted to the intensive care unit. The patient is currently on a venturi mask. The patient has been started empirically on vancomycin and ertapenem. A sputum culture =MRSA. ABX=vanco and cefepime per ID=Dr Matias 2. Altered mental status. This is probably secondary to hypoxia secondary to pneumonia as above. 3. Diabetes type 2. The patient was admitted without antihyperglycemic medication. 4. Hypothyroidism. Continue Levoxyl as above. 5. Cerebrovascular disease. The patient is status post cerebrovascular accident. 6. Acute renal failure. This may be secondary to acute dehydration. The patient is currently receiving intravenous fluids. 7. Severe Sepsis. ABX=cefepime, vanco and meropenem. ID=Dr Matias 8. S/P right thoracentesis 07/26/19 Xander Bah MD Jul 27, 2019 19:15
--- NOTE | 2019-07-27 19:20 | NUR ---
HAND-OFF: Report given to KAI Nunez. The patient is stable without acute distress or shortness of breath. The patient's bed in the lowest position, call light in reach, and fall and aspiration precaution reinforced. On Venturi mask for oxygen therapy per order and oxygen saturation within normal range. R nare NGT intact and running tube feeding per order. Bilateral soft wrist restraints on per order and circulation and skin intact. IV site intact and patent. Endorsed plan of care.
[2019-07-27 20:00] VITALS: BP 147/59
[2019-07-27] MEDS: Iron Sucrose 100 MG in NS 55 ML IV SCH (20:14)
--- NOTE | 2019-07-27 20:15 | NUR ---
NURSE NOTES: pt. appears to be agitated in bed trying to remove devices and screaming- talk therapy and comfort measures provided but unsuccessful-will administer Seroquel as ordered in eMAR- will continue to monitor pt.
--- NOTE | 2019-07-27 22:00 | NUR ---
NURSE NOTES: randell appears to be successful- pt. appears to be in bed watching television- will continue to monitor pt. and with plan of care.
[2019-07-28] VITALS: BP 150/69
--- NOTE | 2019-07-28 03:07 | NUR ---
NURSE NOTES: pulled out Seroquel to give to patient- as pt. is very combative and agitated- talk therapy provided but unsuccessful- wasted medication as is was already crushed and too early to administer. Addendum: 07/28/19 at 0309 by KAT SCHAFER RN RN Witness waste by charge nurse Nina RN.
[2019-07-28 04:00] VITALS: BP 124/89
[2019-07-28 04:41] LABS: BASOPHILS % (AUTO) 0.7 % (0.0-2.0); EOSINOPHILS % (AUTO) 6.5 % (0.0-3.0); HEMATOCRIT 27.4 % (42.0-52.0); HEMOGLOBIN 8.9 G/DL (14.2-18.0); LYMPHOCYTES % (AUTO) 16.2 % (20.0-45.0); MEAN CORPUSCULAR VOLUME 78 FL (80-99); MONOCYTES % (AUTO) 7.8 % (1.0-10.0); NEUTROPHILS % (AUTO) 68.9 % (45.0-75.0); PLATELET COUNT 319 K/UL (150-450); RED BLOOD COUNT 3.54 M/UL (4.70-6.10); WHITE BLOOD COUNT 8.8 K/UL (4.8-10.8)
[2019-07-28 04:57] LABS: ANION GAP 6 mmol/L (5-15); BLOOD UREA NITROGEN 22 mg/dL (7-18); CALCIUM 8.9 MG/DL (8.5-10.1); CARBON DIOXIDE 31 MMOL/L (21-32); CHLORIDE 103 MMOL/L (98-107); CREATININE 1.1 MG/DL (0.55-1.30); POTASSIUM 4.1 MMOL/L (3.5-5.1); SODIUM 140 MMOL/L (136-145)
--- NOTE | 2019-07-28 07:15 | NUR ---
NURSE NOTES: RECEIVED BED SIDE REPORT FROM REYNA HEAD [employer]EMAN [employer]. RECEIVED PT WITH HOB ELEVATED 45 DEGREE, ALERT TO NAME BUT VERY CONFUSED AND TRYING TO REMOVED MEDICAL DEVICES ,PT INSTRUCTED NOT TO REMOVED MEDICAL DEVICES. PT USING VENTURI MASK @ 4/L FIO2 30% ,O2 SAT 94%.PT REPOSITIONED IN BED AND MADE COMFORTABLE POSSIBLE.PT WITH NGT PATENT AND INTACT,NO RESIDUAL NOTED AT THIS TIME .PT RECEIVING GLUCERNA 1.2@ 65CC/HRS ,TOLERATING WELL.PT REMAINS FREE OF INJURIES AT THIS TIME. WILL CONT TO MONITOR.
--- NOTE | 2019-07-28 07:20 | NUR ---
HAND-OFF: Report given to Jose Loja, pt. remains stable and no signs of distress noted- aware to f/u on abnormal am labs.
[2019-07-28 08:00] VITALS: BP 137/57
--- NOTE | 2019-07-28 09:04 | Nephrology Progress Note ---
Assessment/Plan Problem List: (1) Acute renal failure (2) Severe anemia (3) Sepsis (4) Diabetes mellitus (5) Hypothyroidism Assessment Alexi Cr lowering 2.6 to 1.8 Sepsis / Pneumonia / UTI / Hypothermia Respiratory failure HypoThyroidism h/o CVA Anemia Dementia Plan DC Hydrate IV iron Phos supplement as needed antibiotics avoid nephrotoxics monitor renal parameters check TFTs- adjust synthroid dose Urine eos per orders Subjective ROS Limited/Unobtainable: No Constitutional: Reports: malaise Objective Objective Last 24 Hour Vital Signs Date Time Temp Pulse Resp B/P (MAP) Pulse Ox O2 Delivery O2 Flow Rate FiO2 07/28/19 07:29 75 18 97 Venturi Mask 4.0 30 07/28/19 07:29 97 Venturi Mask 4.0 30 07/28/19 04:00 4.0 30 07/28/19 04:00 Venturi Mask 4.0 07/28/19 04:00 97.9 76 22 124/89 (101) 98 07/28/19 03:31 74 07/28/19 00:00 Venturi Mask 4.0 07/28/19 00:00 97.7 65 22 150/69 (96) 99 07/28/19 00:00 4.0 30 07/27/19 23:07 65 07/27/19 20:00 97.7 63 20 147/59 (88) 97 07/27/19 20:00 4.0 30 07/27/19 20:00 Venturi Mask 4.0 07/27/19 19:05 63 07/27/19 19:04 71 18 95 Venturi Mask 4.0 30 07/27/19 19:04 95 Venturi Mask 4.0 30 07/27/19 16:00 4.0 30 07/27/19 16:00 98.1 60 18 132/55 (80) 95 07/27/19 16:00 Venturi Mask 4.0 07/27/19 15:31 64 07/27/19 12:00 98.1 64 18 146/66 (92) 100 07/27/19 12:00 Venturi Mask 4.0 07/27/19 12:00 4.0 30 Intake and Output 07/27/19 07/28/19 19:00 07:00 Intake Total 1855 ml 760 ml Output Total 2000 ml 900 ml Balance -145 ml -140 ml Free Water 200 ml 50 ml IV Total 60 ml Tube Feeding 455 ml 650 ml Other 1200 ml Output Urine Total 2000 ml 900 ml # Bowel Movements 1 Laboratory Tests 07/28/19 04:05: White Blood Count 8.8, Red Blood Count 3.54L, Hemoglobin 8.9L, Hematocrit 27.4L , Mean Corpuscular Volume 78L, Mean Corpuscular Hemoglobin 25.2L, Mean Corpuscular Hemoglobin Concent 32.5, Red Cell Distribution Width 16.0H, Platelet Count 319, Mean Platelet Volume 5.9L, Neutrophils (%) (Auto) 68.9, Lymphocytes (%) (Auto) 16.2L, Monocytes (%) (Auto) 7.8, Eosinophils (%) (Auto) 6.5H, Basophils (%) (Auto) 0.7, Sodium Level 140, Potassium Level 4.1, Chloride Level 103, Carbon Dioxide Level 31, Anion Gap 6, Blood Urea Nitrogen 22H, Creatinine 1.1, Estimat Glomerular Filtration Rate > 60, Glucose Level 113H, Calcium Level 8.9 Height (Feet): 6 Height (Inches): 1.00 Weight (Pounds): 150 General Appearance: no apparent distress Cardiovascular: normal rate Respiratory/Chest: decreased breath sounds Abdomen: soft Objective no change Clovis Benites MD Jul 28, 2019 09:04
--- NOTE | 2019-07-28 10:18 | Infectious Diseases Prog Note ---
Assessment/Plan Assessment/Plan Assessment: Severe sepsis Pneumonia Probable UTI -07/25 CXR: Markedly increased right basilar opacity, likely increasing pleural fluid -07/22 CXR: Worsening CHF -u/a wbc 15-20, nit neg, leuk +3; ucx <10k Proteus sp (R Amp, ancef, macrobid ; otherwise), 70-80K S. viridans -07/19 CXR: marked worsening of pleural and parenchymal disease at the right lung base.There is also increasing parenchymal consolidation and atelectasis in the left infrahilar region. -CXR: Perihilar and basilar infiltrates. Findings suspicious for pneumonia. -influenza sc neg -Bcx NTD -sp cx MRSA, C. albicans -legionella ag urine neg R pleural effusion -07/26 SP thoracentesis: Successful ultrasound-guided thoracentesis, yielding 780 milliliters of fluid --Cx NTD -07/26 CXR: Improved right pleural effusion, post thoracentesis. No radiographically evident complication Hypothermia, SP Leukocytosis, SP Acute respiratory failure, sp NRB mask/VEnturi mask Lactic acidosis, SP RAMAN, SP Dm2 HTN non verbal hypothyroidism CVA hx of UTI anemia dementia half-way resident Plan: -Continue empiric IV Vancomycin #04/21 for MRSA PNA -07/26 SP Cefepime #5 -07/22 SP Barbara #4 -07/19 SP Ertapenem #2 -07/18 SP IV Amikacin x1, Levaquin x1 -f/u cx -Monitor CBC/CMP, temperatures -aspiration precautions Thank you for this consultation. Will continue to follow along with you. Subjective Allergies: Coded Allergies: PENICILLINS (Verified Allergy, Unknown, 10/27/18) tolretas cephalosporins Subjective afebrile no leukocytosis Objective Vital Signs Last 24 Hour Vital Signs Date Time Temp Pulse Resp B/P (MAP) Pulse Ox O2 Delivery O2 Flow Rate FiO2 07/28/19 09:19 69 137/57 07/28/19 09:00 4.0 30 07/28/19 08:00 Venturi Mask 4.0 07/28/19 08:00 97.9 69 23 137/57 (83) 94 07/28/19 07:29 75 18 97 Venturi Mask 4.0 30 07/28/19 07:29 97 Venturi Mask 4.0 30 07/28/19 04:00 4.0 30 07/28/19 04:00 Venturi Mask 4.0 07/28/19 04:00 97.9 76 22 124/89 (101) 98 07/28/19 03:31 74 07/28/19 00:00 Venturi Mask 4.0 07/28/19 00:00 97.7 65 22 150/69 (96) 99 07/28/19 00:00 4.0 30 07/27/19 23:07 65 07/27/19 20:00 97.7 63 20 147/59 (88) 97 07/27/19 20:00 4.0 30 07/27/19 20:00 Venturi Mask 4.0 07/27/19 19:05 63 07/27/19 19:04 71 18 95 Venturi Mask 4.0 30 07/27/19 19:04 95 Venturi Mask 4.0 30 07/27/19 16:00 4.0 30 07/27/19 16:00 98.1 60 18 132/55 (80) 95 07/27/19 16:00 Venturi Mask 4.0 07/27/19 15:31 64 07/27/19 12:00 98.1 64 18 146/66 (92) 100 07/27/19 12:00 Venturi Mask 4.0 07/27/19 12:00 4.0 30 Height (Feet): 6 Height (Inches): 1.00 Weight (Pounds): 150 Objective GENERAL: no respiratory distress. HEENT: Eyes, pupils are equal and responsive to light and accommodation. Extraocular movements are intact. NECK: Supple CHEST: Lungs are clear to auscultation bilaterally without wheezes or rales. CARDIOVASCULAR: Regular rhythm and rate. S1 and S2 are normal without murmurs, rubs, or gallops. ABDOMEN: Soft, nontender, and nondistended. Positive bowel sounds. No evidence of hepatosplenomegaly. EXTREMITIES: Negative for clubbing, cyanosis, or edema. Microbiology Date/Time Source Procedure Growth Status 07/26/19 14:00 Pleural Fluid Gram Stain Pending Resulted 07/26/19 14:00 Pleural Fluid Body Fluid Culture - Preliminary NO GROWTH Resulted Laboratory Tests Test 07/28/19 04:05 White Blood Count 8.8 K/UL (4.8-10.8) Red Blood Count 3.54 M/UL (4.70-6.10) L Hemoglobin 8.9 G/DL (14.2-18.0) L Hematocrit 27.4 % (42.0-52.0) L Mean Corpuscular Volume 78 FL (80-99) L Mean Corpuscular Hemoglobin 25.2 PG (27.0-31.0) L Mean Corpuscular Hemoglobin Concent 32.5 G/DL (32.0-36.0) Red Cell Distribution Width 16.0 % (11.6-14.8) H Platelet Count 319 K/UL (150-450) Mean Platelet Volume 5.9 FL (6.5-10.1) L Neutrophils (%) (Auto) 68.9 % (45.0-75.0) Lymphocytes (%) (Auto) 16.2 % (20.0-45.0) L Monocytes (%) (Auto) 7.8 % (1.0-10.0) Eosinophils (%) (Auto) 6.5 % (0.0-3.0) H Basophils (%) (Auto) 0.7 % (0.0-2.0) Sodium Level 140 MMOL/L (136-145) Potassium Level 4.1 MMOL/L (3.5-5.1) Chloride Level 103 MMOL/L (98-107) Carbon Dioxide Level 31 MMOL/L (21-32) Anion Gap 6 mmol/L (5-15) Blood Urea Nitrogen 22 mg/dL (7-18) H Creatinine 1.1 MG/DL (0.55-1.30) Estimat Glomerular Filtration Rate > 60 mL/min (>60) Glucose Level 113 MG/DL (74-106) H Calcium Level 8.9 MG/DL (8.5-10.1) Current Medications Medications (Trade) Dose Ordered Sig/Kike Route PRN Reason Start Time Stop Time Status Last Admin Dose Admin Acetaminophen (Tylenol) 650 mg Q4H PRN ORAL fever 07/21/19 05:30 08/17/19 05:29 Albuterol/ Ipratropium (Albuterol/ Ipratropium) 3 ml Q4H PRN HHN Shortness of Breath 07/23/19 20:00 07/28/19 19:59 07/24/19 15:41 Amlodipine Besylate (Norvasc) 2.5 mg DAILY NG 07/24/19 09:00 08/23/19 08:59 07/28/19 09:19 Barium Sulfate (Varibar Honey) 250 ml NOW PRN MC RAD 07/27/19 12:45 07/30/19 12:33 Barium Sulfate (Varibar [place]) 240 ml NOW PRN MC RAD 07/27/19 12:45 07/30/19 12:33 Barium Sulfate (Varibar Pudding) 230 ml NOW PRN MC RAD 07/27/19 12:45 07/30/19 12:33 Folic Acid (Folate) 2 mg DAILY ORAL 07/21/19 09:00 08/19/19 11:29 07/28/19 09:19 Lansoprazole (Prevacid) 30 mg BID NG 07/23/19 18:00 08/22/19 17:59 07/28/19 09:19 Levothyroxine Sodium (Synthroid) 50 mcg DAILY@0630 ORAL 07/21/19 06:30 08/18/19 06:29 07/28/19 05:58 Ondansetron HCl (Zofran) 4 mg Q6H PRN IVP Nausea & Vomiting 07/21/19 08:15 08/17/19 14:14 Polyethylene Glycol (Miralax) 17 gm DAILYPRN PRN ORAL Constipation 07/21/19 05:30 08/17/19 05:29 Quetiapine Fumarate (SEROqueL) 25 mg Q8H PRN ORAL agitation 07/21/19 05:30 08/17/19 05:29 07/28/19 09:19 Vancomycin HCl (Vanco rx to dose) 1 ea DAILY PRN MISC Per rx protocol 07/21/19 09:00 08/17/19 14:29 Danielle Roach M.D. Jul 28, 2019 10:18
--- NOTE | 2019-07-28 10:57 | Pulmonology Progress Note ---
Assessment/Plan Problems: (1) Nosocomial pneumonia (2) Pleural effusion Assessment & Plan: thoracentesis done, 780 cc removed (3) Sepsis Assessment & Plan: afebrile, wbc wnl (4) Atrial fibrillation (5) Acute renal failure (6) Acute metabolic encephalopathy (7) Severe anemia (8) Alzheimer's dementia (9) History of CVA (cerebrovascular accident) (10) Diabetes mellitus (11) Hypothyroidism Assessment/Plan still on face mask, try to change to nasal cannula no new complains, improving more awake failed the swallow study previously, video swallow study today cxr showing better aeration in RLL, minimal effusion and consolidation respiratory treatment NG tube in, tolerating well sliding scale f/u renal function K supplement Venofer for iron deficiency DVT prophylaxis. Subjective ROS Limited/Unobtainable: No Interval Events: still on face mask, more alert Allergies: Coded Allergies: PENICILLINS (Verified Allergy, Unknown, 10/27/18) tolretas cephalosporins Objective Last 24 Hour Vital Signs Date Time Temp Pulse Resp B/P (MAP) Pulse Ox O2 Delivery O2 Flow Rate FiO2 07/28/19 09:19 69 137/57 07/28/19 09:00 4.0 30 07/28/19 08:00 70 07/28/19 08:00 Venturi Mask 4.0 07/28/19 08:00 97.9 69 23 137/57 (83) 94 07/28/19 07:29 75 18 97 Venturi Mask 4.0 30 07/28/19 07:29 97 Venturi Mask 4.0 30 07/28/19 04:00 4.0 30 07/28/19 04:00 Venturi Mask 4.0 07/28/19 04:00 97.9 76 22 124/89 (101) 98 07/28/19 03:31 74 07/28/19 00:00 Venturi Mask 4.0 07/28/19 00:00 97.7 65 22 150/69 (96) 99 07/28/19 00:00 4.0 30 07/27/19 23:07 65 07/27/19 20:00 97.7 63 20 147/59 (88) 97 07/27/19 20:00 4.0 30 07/27/19 20:00 Venturi Mask 4.0 07/27/19 19:05 63 07/27/19 19:04 71 18 95 Venturi Mask 4.0 30 07/27/19 19:04 95 Venturi Mask 4.0 30 07/27/19 16:00 4.0 30 07/27/19 16:00 98.1 60 18 132/55 (80) 95 07/27/19 16:00 Venturi Mask 4.0 07/27/19 15:31 64 07/27/19 12:00 98.1 64 18 146/66 (92) 100 07/27/19 12:00 Venturi Mask 4.0 07/27/19 12:00 4.0 30 Intake and Output 07/27/19 07/28/19 19:00 07:00 Intake Total 1855 ml 760 ml Output Total 2000 ml 900 ml Balance -145 ml -140 ml Free Water 200 ml 50 ml IV Total 60 ml Tube Feeding 455 ml 650 ml Other 1200 ml Output Urine Total 2000 ml 900 ml # Bowel Movements 1 General Appearance: cachetic HEENT: normocephalic, atraumatic Respiratory/Chest: chest wall non-tender, crackles/rales Cardiovascular: normal peripheral pulses, normal rate Abdomen: normal bowel sounds, soft, non tender Genitourinary: normal external genitalia Neurologic/Psychiatric: no motor/sensory deficits Microbiology Date/Time Source Procedure Growth Status 07/26/19 14:00 Pleural Fluid Gram Stain Pending Resulted 07/26/19 14:00 Pleural Fluid Body Fluid Culture - Preliminary NO GROWTH Resulted Laboratory Tests 07/28/19 04:05: White Blood Count 8.8, Red Blood Count 3.54L, Hemoglobin 8.9L, Hematocrit 27.4L , Mean Corpuscular Volume 78L, Mean Corpuscular Hemoglobin 25.2L, Mean Corpuscular Hemoglobin Concent 32.5, Red Cell Distribution Width 16.0H, Platelet Count 319, Mean Platelet Volume 5.9L, Neutrophils (%) (Auto) 68.9, Lymphocytes (%) (Auto) 16.2L, Monocytes (%) (Auto) 7.8, Eosinophils (%) (Auto) 6.5H, Basophils (%) (Auto) 0.7, Sodium Level 140, Potassium Level 4.1, Chloride Level 103, Carbon Dioxide Level 31, Anion Gap 6, Blood Urea Nitrogen 22H, Creatinine 1.1, Estimat Glomerular Filtration Rate > 60, Glucose Level 113H, Calcium Level 8.9 Current Medications Medications (Trade) Dose Ordered Sig/Kike Route PRN Reason Start Time Stop Time Status Last Admin Dose Admin Acetaminophen (Tylenol) 650 mg Q4H PRN ORAL fever 07/21/19 05:30 08/17/19 05:29 Albuterol/ Ipratropium (Albuterol/ Ipratropium) 3 ml Q4H PRN HHN Shortness of Breath 07/23/19 20:00 07/28/19 19:59 07/24/19 15:41 Amlodipine Besylate (Norvasc) 2.5 mg DAILY NG 07/24/19 09:00 08/23/19 08:59 07/28/19 09:19 Barium Sulfate (Varibar Honey) 250 ml NOW PRN MC RAD 07/27/19 12:45 07/30/19 12:33 Barium Sulfate (Varibar [place]) 240 ml NOW PRN MC RAD 07/27/19 12:45 07/30/19 12:33 Barium Sulfate (Varibar Pudding) 230 ml NOW PRN MC RAD 07/27/19 12:45 07/30/19 12:33 Folic Acid (Folate) 2 mg DAILY ORAL 07/21/19 09:00 08/19/19 11:29 07/28/19 09:19 Lansoprazole (Prevacid) 30 mg BID NG 07/23/19 18:00 08/22/19 17:59 07/28/19 09:19 Levothyroxine Sodium (Synthroid) 50 mcg DAILY@0630 ORAL 07/21/19 06:30 08/18/19 06:29 07/28/19 05:58 Ondansetron HCl (Zofran) 4 mg Q6H PRN IVP Nausea & Vomiting 07/21/19 08:15 08/17/19 14:14 Polyethylene Glycol (Miralax) 17 gm DAILYPRN PRN ORAL Constipation 07/21/19 05:30 08/17/19 05:29 Quetiapine Fumarate (SEROqueL) 25 mg Q8H PRN ORAL agitation 07/21/19 05:30 08/17/19 05:29 07/28/19 09:19 Vancomycin HCl (Vanco rx to dose) 1 ea DAILY PRN MISC Per rx protocol 07/21/19 09:00 08/17/19 14:29 Vania Hui MD Jul 28, 2019 10:57
[2019-07-28 12:00] VITALS: BP 139/60
--- NOTE | 2019-07-28 14:23 | NUR ---
CASE MANAGEMENT: REVIEW 07/28/19 SI:Nosocomial pneumonia. Pleural effusion. T 97.9 HR 62 RR 21 B/P 139/60 SATS 97% ON 4L/VENTURI MASK FIO2 30 LABS: BUN 22 GLU 113 IS: VANCO IV QD SDU PLAN OF CARE: thoracentesis done, 780 cc removed failed the swallow study previously, video swallow study today
--- NOTE | 2019-07-28 14:34 | NUR ---
INSURANCE CLINICALS AND REVIEWS FAXED TO [facility] P- [phone] F- [phone]...REVIEW/CLINICAL
--- NOTE | 2019-07-28 15:22 | NUR ---
ST NOTES: REVIEWED AND UPDATED MOD BARIUM SWALLOW STUDY SUMMARY AND REPORT WHICH WAS COMPLETED YESTERDAY 07/27/19: INITIAL IMPRESSIONS MODERATE TO SEVERE ORAL PREP AND OROPHARYNGEAL DYSPHAGIA WITH SIGNIFICANT INCREASE IN OVERALL TRANSIT TIMES DUE TO SENSORIMOTOR DEFICITS. DEFICITS COMPOUNDED BY RESPIRATORY PROBLEMS (RESP RATE ELEVATES AT TIMES TO 28 BPM EVEN AT REST), OVERALL FATIGUE, REFUSED FURTHER PO TRIALS AFTER 5TH PO TRIAL, AND POOR ABILITY TO USE COMPENSATORY SWALLOW STRATEGIES TO REDUCE ASPIRATION RISK. THIN LIQUIDS TSP - NO ASPIRATION/PENETRATION WITH TSP LEVEL BUT HAD SILENT (NO COUGH) CUP SIP - TRACE AND SILENT ASPIRATION DUE TO DELAYED SWALLOW. FURTHER RISK FOR ASPIRATION AFTER THE SWALLOW DUE TO OROPHARYNGEAL DYSMOTILITY WHICH RESULTED IN MILD RESIDUE MOSTLY CLEARED WITH DELAYED AND CUED HARD SWALLOW. NECTAR THICK LIQUIDS: TSP - NO ASPIRATION BUT HAD TRACE SILENT LARYNGEAL PENETRATION (LP) ABOVE VOCAL FOLDS WITH EJECTION DUE TO DELAYED SWALLOW AND LATE/INCOMPLETE CLOSURE OF LARYNGEAL VESTIBULE. CUP - NO ASPIRATION BUT HAD DEEPER TRACE LARYNGEAL PENETRATION TO LEVEL OF VOCAL FOLDS NO EJECTION BEFORE THE SWALLOW DUE TO DELAYED SWALLOW. OVERALL HAD ADDITIONAL RISK OF ASPIRATION AFTER THE SWALLOW DUE TO OROPHARYNGEAL (OP) DYSMOTILITY RESULTING IN MILD OP RESIDUE CLEARED AFTER A VERY DELAYED AND CUED HARD SWALLOW. ALTHOUGH VITALS SIGNS WERE ADEQUATE, PATIENT REFUSED MORE PO TRIALS. ASPIRATION/PENETRATION RISK AND REDUCED SWALLOW EFFICIENCY DUE TO THE FOLLOWING COMPONENTS: Oral Impairment Tongue Control Bolus prep/mastication Bolus transport/lingual motion Oral residue Init. pharyngeal swallow Pharyngeal Impairment Laryngeal elevation (LE) Ant. hyoid excursion Epiglottic movement Late and incomplete laryngeal vestibule closure Pharyngeal stripping wave Pharyngoesophageal segment opening Tongue base retraction Pharyngeal residue Decreased pharyngeal sensation ESOPHAGEAL PHASE GROSSLY FUNCTIONAL BUT VIEW WAS LIMITED IN LATERAL/OBLIQUE. TRIAL TX: LIMITED SINCE PT NOT ABLE TO FOLLOW MOST COMMANDS LIKE CHIN TUCK AND EFFORT BREATH HOLD. WAS ABLE TO COMPLETE AN EXTRA SWALLOW AFTER A LONG DELAY. QUESTIONABLE IF USED HARD SWALLOW WHEN CUED BUT SECOND SWALLOWS DID CLEAR MOST OF THE OROPHARYNGEAL RESIDUE. RECOMMENDATIONS: CONSIDERING THAT HE HAS A HIGH RISK FOR INADEQUATE PO INTAKE AND CHRONIC TRACE ASPIRATION WITH ALL CONSISTENCIES GIVEN (PARTICULARLY IF COMPENSATORY SWALLOW STRATEGIES ARE NOT USED), HE SHOULD CONTINUE WITH NONORAL FEEDINGS AND ORAL CARE FOR NOW CONSIDER LONGER TERM NONORAL FEEDINGS ONLY IF THE FAMILY AND PATIENT ARE RECEPTIVE. HIS DAUGTHER WILL TALK TO HIM LATER ABOUT HIS WISHES AND GET BACK TO THE PHYSICIANS. LEFT MESSAGE WITH DR DIAZ AND RN, MANPREET, TO TAKE TO DR GILMORE ABOUT ABOVE-NOTED INFORMATION. CONTINUE WITH SKILLED CIVIL PREPAREDNESS COORDINATOR DYSPHAGIA MANAGEMENT AND TX WITH PO TRIALS WITH CIVIL PREPAREDNESS COORDINATOR ONLY (TSP WATER AND NECTAR THICK WATER) USING STRICT ASPIRATION AND REFLUX PRECAUTIONS (HARD DOUBLE SWALLOWS) FOR NOW. THE PATIENT IS TOO TIRED TO COMPLETE ANY SWALLOWING EXERCISES AND PO TRIALS AT THIS TIME. REVIEWED IMAGES WITH KAI PATEL AND HE IS AWARE OF ORAL CARE AND NONORAL FEEDING ASPIRATION PRECAUTIONS. PLAN: CONTINUE WITH PLAN OF CARE IN MOD BARIUM SWALLOW STUDY REPORT
[2019-07-28 16:00] VITALS: BP 113/56
[2019-07-28] MEDS: Vancomycin 1.25gm/NS Premix q24h IVPB SCH (17:57)
--- NOTE | 2019-07-28 19:02 | Internal Med Progress Note ---
Subjective Date of Service: Jul 28, 2019 Physician Name BahXander Attending Physician Lamont Hayes MD Current Medications Medications (Trade) Dose Ordered Sig/Kike Route PRN Reason Start Time Stop Time Status Last Admin Dose Admin Acetaminophen (Tylenol) 650 mg Q4H PRN ORAL fever 07/21/19 05:30 08/17/19 05:29 Albuterol/ Ipratropium (Albuterol/ Ipratropium) 3 ml Q4H PRN HHN Shortness of Breath 07/23/19 20:00 07/28/19 19:59 07/24/19 15:41 Amlodipine Besylate (Norvasc) 2.5 mg DAILY NG 07/24/19 09:00 08/23/19 08:59 07/28/19 09:19 Barium Sulfate (Varibar Honey) 250 ml NOW PRN MC RAD 07/27/19 12:45 07/30/19 12:33 Barium Sulfate (Varibar Ever[place]) 240 ml NOW PRN MC RAD 07/27/19 12:45 07/30/19 12:33 Barium Sulfate (Varibar Pudding) 230 ml NOW PRN MC RAD 07/27/19 12:45 07/30/19 12:33 Folic Acid (Folate) 2 mg DAILY ORAL 07/21/19 09:00 08/19/19 11:29 07/28/19 09:19 Lansoprazole (Prevacid) 30 mg BID NG 07/23/19 18:00 08/22/19 17:59 07/28/19 17:57 Levothyroxine Sodium (Synthroid) 50 mcg DAILY@0630 ORAL 07/21/19 06:30 08/18/19 06:29 07/28/19 05:58 Ondansetron HCl (Zofran) 4 mg Q6H PRN IVP Nausea & Vomiting 07/21/19 08:15 08/17/19 14:14 Polyethylene Glycol (Miralax) 17 gm DAILYPRN PRN ORAL Constipation 07/21/19 05:30 08/17/19 05:29 Quetiapine Fumarate (SEROqueL) 25 mg Q8H PRN ORAL agitation 07/21/19 05:30 08/17/19 05:29 07/28/19 09:19 Vancomycin HCl (Vanco rx to dose) 1 ea DAILY PRN MISC Per rx protocol 07/21/19 09:00 08/17/19 14:29 Vancomycin/Sodium Chloride 275 ml @ 183.333 mls/hr Q24H IVPB 07/28/19 18:00 07/30/19 19:29 07/28/19 17:57 Allergies: Coded Allergies: PENICILLINS (Verified Allergy, Unknown, 10/27/18) tolretas cephalosporins ROS Limited/Unobtainable: Yes Subjective 84 YO M admitted with altered mental status. Now pneumonia and severe sepsis. Cover for Int Med-Dr Hayes. [place] Objective Last Vital Signs Date Time Temp Pulse Resp B/P (MAP) Pulse Ox O2 Delivery O2 Flow Rate FiO2 07/28/19 16:00 4.0 30 07/28/19 16:00 60 07/28/19 16:00 Venturi Mask 07/28/19 16:00 96.8 22 113/56 (75) 100 Laboratory Tests Test 07/28/19 04:05 White Blood Count 8.8 K/UL (4.8-10.8) Red Blood Count 3.54 M/UL (4.70-6.10) L Hemoglobin 8.9 G/DL (14.2-18.0) L Hematocrit 27.4 % (42.0-52.0) L Mean Corpuscular Volume 78 FL (80-99) L Mean Corpuscular Hemoglobin 25.2 PG (27.0-31.0) L Mean Corpuscular Hemoglobin Concent 32.5 G/DL (32.0-36.0) Red Cell Distribution Width 16.0 % (11.6-14.8) H Platelet Count 319 K/UL (150-450) Mean Platelet Volume 5.9 FL (6.5-10.1) L Neutrophils (%) (Auto) 68.9 % (45.0-75.0) Lymphocytes (%) (Auto) 16.2 % (20.0-45.0) L Monocytes (%) (Auto) 7.8 % (1.0-10.0) Eosinophils (%) (Auto) 6.5 % (0.0-3.0) H Basophils (%) (Auto) 0.7 % (0.0-2.0) Sodium Level 140 MMOL/L (136-145) Potassium Level 4.1 MMOL/L (3.5-5.1) Chloride Level 103 MMOL/L (98-107) Carbon Dioxide Level 31 MMOL/L (21-32) Anion Gap 6 mmol/L (5-15) Blood Urea Nitrogen 22 mg/dL (7-18) H Creatinine 1.1 MG/DL (0.55-1.30) Estimat Glomerular Filtration Rate > 60 mL/min (>60) Glucose Level 113 MG/DL (74-106) H Calcium Level 8.9 MG/DL (8.5-10.1) Microbiology Date/Time Source Procedure Growth Status 07/26/19 14:00 Pleural Fluid Gram Stain - Final Resulted 07/26/19 14:00 Pleural Fluid Body Fluid Culture - Preliminary NO GROWTH AFTER 48 HOURS Resulted Intake and Output 07/27/19 07/28/19 19:00 07:00 Intake Total 1855 ml 760 ml Output Total 2000 ml 900 ml Balance -145 ml -140 ml Free Water 200 ml 50 ml IV Total 60 ml Tube Feeding 455 ml 650 ml Other 1200 ml Output Urine Total 2000 ml 900 ml # Bowel Movements 1 Objective PHYSICAL EXAMINATION: GENERAL: The patient is a well-developed, well-nourished, thin-appearing male, who is in moderate respiratory distress. HEENT: Eyes, pupils are equal and responsive to light and accommodation. Extraocular movements are intact. NECK: Supple without lymphadenopathy. CHEST: Venturi mask; Lungs with bilateral wheezes and rhonchi; breath sounds decreased at bases CARDIOVASCULAR: Regular rhythm and rate. S1 and S2 are normal without murmurs, rubs, or gallops. ABDOMEN: Soft, nontender, and nondistended. Positive bowel sounds. No evidence of hepatosplenomegaly. Currently, no rebound or guarding noted. EXTREMITIES: Negative for clubbing, cyanosis, or edema. RECTAL/GENITAL: Not performed. NEUROLOGIC: Cranial nerves II through XII are grossly intact without focal deficits. Motor strength is 5/5 bilaterally. Deep tendon reflexes are 2+ plantar. Assessment/Plan Assessment/Plan ASSESSMENT: This is an 84-year-old male. 1. Bilateral pneumonia. 2. Respiratory failure. 3. Probable sepsis. 4. Altered mental status. 5. Diabetes type 2. 6. Hypothyroidism. 7. Cerebrovascular disease. 8. Acute renal failure. 9. Leukocytosis 10. Hypernatremia 11. Right pleural effusion TREATMENT: 1. Respiratory failure/bilateral pneumonia. A Pulmonary consultation has been obtained with Dr. Vania Hui. The patient is currently admitted to the intensive care unit. The patient is currently on a venturi mask. The patient has been started empirically on vancomycin and ertapenem. A sputum culture =MRSA. ABX=vanco per ID=Dr Roach 2. Altered mental status. This is probably secondary to hypoxia secondary to pneumonia as above. 3. Diabetes type 2. The patient was admitted without antihyperglycemic medication. 4. Hypothyroidism. Continue Levoxyl as above. 5. Cerebrovascular disease. The patient is status post cerebrovascular accident. 6. Acute renal failure. This may be secondary to acute dehydration. The patient is currently receiving intravenous fluids. 7. Severe Sepsis. ABX=cefepime, vanco and meropenem. ID=Dr Matias 8. S/P right thoracentesis 07/26/19 Xander Bah MD Jul 28, 2019 19:02
--- NOTE | 2019-07-28 19:15 | NUR ---
HAND-OFF: Report given to .JEFF WILLAMS RN.
--- NOTE | 2019-07-28 19:15 | NUR ---
NURSE NOTES: Received report from Jose ARN, pt. in bed awake,confused, bed in lowest position, bed locked and alarm engaged. side rails up X3, pt. on venturi Mask at 30% Fio2 saturating adequately. In no apparent distress. Glucerna 1.2 infusing via Right Nare NGT at 65cc/hr w/no residual noted, HOB elevated. Turned for comfort. Left hand 20G IV intact and patent. Atrial flutter on potline monitor. will continue with POC.
[2019-07-28 20:00] VITALS: BP 127/57
[2019-07-29] VITALS: BP 154/63
--- NOTE | 2019-07-29 | NUR ---
NURSE NOTES: Pt in bed sleeping. Easily awakened to touch. confuse when awake. bed in lowest position, bed locked and alarm engaged. side rails up X3, pt. on venturi Mask at 30% Fio2 saturating adequately. In no apparent distress. Glucerna 1.2 infusing via Right Nare NGT at 65cc/hr w/no residual noted, HOB elevated. Turned for comfort. Left hand 20G IV intact and patent. Atrial flutter on marketing operations specialist. will continue with POC.
[2019-07-29 04:00] VITALS: BP 159/60
--- NOTE | 2019-07-29 04:00 | NUR ---
Condition unchanged. VSS. afebrile. Remain atrial flutter on cardiac rn. In no apparent distress. Will continue POC.
[2019-07-29 05:35] LABS: BASOPHILS % (AUTO) 0.8 % (0.0-2.0); EOSINOPHILS % (AUTO) 5.7 % (0.0-3.0); HEMATOCRIT 27.8 % (42.0-52.0); HEMOGLOBIN 8.9 G/DL (14.2-18.0); MEAN CORPUSCULAR VOLUME 78 FL (80-99); MONOCYTES % (AUTO) 7.3 % (1.0-10.0); NEUTROPHILS % (AUTO) 70.2 % (45.0-75.0); PLATELET COUNT 384 K/UL (150-450); RED BLOOD COUNT 3.54 M/UL (4.70-6.10); RED CELL DISTRIBUTION WIDTH 16.7 % (11.6-14.8); WHITE BLOOD COUNT 9.2 K/UL (4.8-10.8)
[2019-07-29 06:12] LABS: ALANINE AMINOTRANSFERASE 27 U/L (12-78); ALBUMIN 1.5 G/DL (3.4-5.0); ALBUMIN/GLOBULIN RATIO 0.3 (1.0-2.7); ALKALINE PHOSPHATASE 111 U/L (46-116); ANION GAP 11 mmol/L (5-15); ASPARTATE AMINO TRANSFERASE 30 U/L (15-37); BILIRUBIN,TOTAL 0.2 MG/DL (0.2-1.0); BLOOD UREA NITROGEN 21 mg/dL (7-18); CALCIUM 9.3 MG/DL (8.5-10.1); CARBON DIOXIDE 26 MMOL/L (21-32); CHLORIDE 103 MMOL/L (98-107); CREATININE 1.1 MG/DL (0.55-1.30); POTASSIUM 4.4 MMOL/L (3.5-5.1); SODIUM 140 MMOL/L (136-145)
--- NOTE | 2019-07-29 07:12 | NUR ---
HAND-OFF: Report given to KAI Tenorio.
--- NOTE | 2019-07-29 07:15 | NUR ---
NURSE NOTES: Report received from Andrew Lamb RN.Pt awake,confused noted no resp distress ,no signs of pain or discomfort,SR on the monitor,with bilat wrist restraints in placed, NG TF Glucerna 1.2 at 65 mlhr,no residual noted,in placed confirmed per auscultation,skin warm and dry with IV heplock to LH ,site intact,condom cath in placed draining yellow urine,SR up x2 HOB elevated,bed lock in lowest position,will continue with plans of care.
[2019-07-29 08:00] VITALS: BP 137/65
--- NOTE | 2019-07-29 10:18 | NUR ---
RADIOLOGY DEPT., CHEST X-RAY DONE.-P.DYE
--- NOTE | 2019-07-29 11:35 | NUR ---
RD ASSESSMENT & RECOMMENDATIONS SEE CARE ACTIVITY FOR COMPLETE ASSESSMENT DAILY ESTIMATED NEEDS: Needs based on Sepsis, DM, pulmonary/ 67.7kg 25-35 kcals/kg 9540-5940 total kcals 1.25-2 g protein/kg 85-135 g total protein 20-30ml/kcal mL/kg 6370-6680 total fluid mLs NUTRITION DIAGNOSIS: * Swallowing difficulty R/T dysphagia w/ h/o CVA, decreased cognitive fxn as evidenced by AIR INTERCEPT CONTROLLER recommends nonoral feeds at this time, w/ NGT feeds. CURRENT TF:Glucerna 1.2 @65 ml/hr x22 hrs (PO DIET RECOMMENDATIONS: IF ORAL DIET INDICATED-> CCHO MED, LOW NA/ texture per AIR INTERCEPT CONTROLLER) ENTERAL NUTRITION RECOMMENDATIONS: Glucerna 1.2 @65ml/hr x22 hrs to provide 1430ml, 1716 kcal, 86g prot, 1151ml free H2O - Maintain Glucerna 1.2 @ 65ml/hr for 22 hrs as tolerated. - HOLD TF one hour before and after synthroid meds. - Flush per . HOB over 30 degrees Once tolerating TF well, rec to increase to 70ml/hr x22 hrs for 1848 kcal, 92g pro. ADDITIONAL RECOMMENDATIONS: * Calibrated bedscale wt for accurate CBW * Monitor AIR INTERCEPT CONTROLLER recommendation regarding oral diet, need to adjust TF * NISS w/ TF: A1C of 6.5 * Monitor lytes, replete as needed * Wound care: add JOSE BID + Vit C 250mg daily .
--- NOTE | 2019-07-29 11:51 | Infectious Diseases Prog Note ---
Assessment/Plan Assessment/Plan Assessment: Severe sepsis Pneumonia Probable UTI -07/25 CXR: Markedly increased right basilar opacity, likely increasing pleural fluid -07/22 CXR: Worsening CHF -u/a wbc 15-20, nit neg, leuk +3; ucx <10k Proteus sp (R Amp, ancef, macrobid ; otherwise), 70-80K S. viridans -07/19 CXR: marked worsening of pleural and parenchymal disease at the right lung base.There is also increasing parenchymal consolidation and atelectasis in the left infrahilar region. -CXR: Perihilar and basilar infiltrates. Findings suspicious for pneumonia. -influenza sc neg -Bcx NTD -sp cx MRSA, C. albicans -legionella ag urine neg R pleural effusion -07/26 SP thoracentesis: Successful ultrasound-guided thoracentesis, yielding 780 milliliters of fluid --Cx NTD -07/26 CXR: Improved right pleural effusion, post thoracentesis. No radiographically evident complication Hypothermia, SP Leukocytosis, SP Acute respiratory failure, sp NRB mask/VEnturi mask Lactic acidosis, SP RAMAN, SP Dm2 HTN non verbal hypothyroidism CVA hx of UTI anemia dementia [facility] resident Plan: -Continue empiric IV Vancomycin #05/21 for MRSA PNA -07/26 SP Cefepime #5 -07/22 SP Barbara #4 -07/19 SP Ertapenem #2 -07/18 SP IV Amikacin x1, Levaquin x1 -f/u cx -Monitor CBC/CMP, temperatures -aspiration precautions Thank you for this consultation. Will continue to follow along with you. Subjective Allergies: Coded Allergies: PENICILLINS (Verified Allergy, Unknown, 10/27/18) tolretas cephalosporins Subjective afebrile no leukocytosis on VM Objective Vital Signs Last 24 Hour Vital Signs Date Time Temp Pulse Resp B/P (MAP) Pulse Ox O2 Delivery O2 Flow Rate FiO2 07/29/19 09:22 68 137/65 07/29/19 08:00 98.4 70 22 137/65 (89) 97 07/29/19 08:00 68 07/29/19 08:00 4.0 30 07/29/19 08:00 Venturi Mask 4.0 07/29/19 04:00 Venturi Mask 4.0 07/29/19 04:00 4.0 30 07/29/19 04:00 98.0 71 24 159/60 (93) 97 07/29/19 03:56 64 07/29/19 00:00 Venturi Mask 4.0 07/29/19 00:00 4.0 30 07/29/19 00:00 97.9 72 24 154/63 (93) 92 07/28/19 21:40 94 Venturi Mask 4.0 30 07/28/19 21:40 68 18 94 Venturi Mask 4.0 30 07/28/19 20:00 98.4 63 24 127/57 (80) 92 07/28/19 20:00 63 07/28/19 20:00 4.0 30 07/28/19 20:00 64 07/28/19 20:00 Venturi Mask 4.0 07/28/19 16:00 4.0 30 07/28/19 16:00 60 07/28/19 16:00 Venturi Mask 4.0 07/28/19 16:00 96.8 67 22 113/56 (75) 100 07/28/19 12:00 4.0 30 07/28/19 12:00 Venturi Mask 4.0 07/28/19 12:00 68 07/28/19 12:00 97.9 62 21 139/60 (86) 97 Height (Feet): 6 Height (Inches): 1.00 Weight (Pounds): 151 Objective GENERAL: no respiratory distress. NECK: Supple CHEST: decreased breath sounds CARDIOVASCULAR: Regular rhythm and rate. S1 and S2 are normal without murmurs, rubs, or gallops. ABDOMEN: Soft, nontender, and nondistended. Positive bowel sounds. No evidence of hepatosplenomegaly. EXTREMITIES: Negative for clubbing, cyanosis, or edema. Microbiology Date/Time Source Procedure Growth Status 07/26/19 14:00 Pleural Fluid Gram Stain - Final Resulted 07/26/19 14:00 Pleural Fluid Body Fluid Culture - Preliminary NO GROWTH AFTER 72 HOURS Resulted Laboratory Tests Test 07/29/19 03:50 White Blood Count 9.2 K/UL (4.8-10.8) Red Blood Count 3.54 M/UL (4.70-6.10) L Hemoglobin 8.9 G/DL (14.2-18.0) L Hematocrit 27.8 % (42.0-52.0) L Mean Corpuscular Volume 78 FL (80-99) L Mean Corpuscular Hemoglobin 25.0 PG (27.0-31.0) L Mean Corpuscular Hemoglobin Concent 31.9 G/DL (32.0-36.0) L Red Cell Distribution Width 16.7 % (11.6-14.8) H Platelet Count 384 K/UL (150-450) Mean Platelet Volume 5.8 FL (6.5-10.1) L Neutrophils (%) (Auto) 70.2 % (45.0-75.0) Lymphocytes (%) (Auto) 16.0 % (20.0-45.0) L Monocytes (%) (Auto) 7.3 % (1.0-10.0) Eosinophils (%) (Auto) 5.7 % (0.0-3.0) H Basophils (%) (Auto) 0.8 % (0.0-2.0) Sodium Level 140 MMOL/L (136-145) Potassium Level 4.4 MMOL/L (3.5-5.1) Chloride Level 103 MMOL/L (98-107) Carbon Dioxide Level 26 MMOL/L (21-32) Anion Gap 11 mmol/L (5-15) Blood Urea Nitrogen 21 mg/dL (7-18) H Creatinine 1.1 MG/DL (0.55-1.30) Estimat Glomerular Filtration Rate > 60 mL/min (>60) Glucose Level 103 MG/DL (74-106) Calcium Level 9.3 MG/DL (8.5-10.1) Total Bilirubin 0.2 MG/DL (0.2-1.0) Aspartate Amino Transf (AST/SGOT) 30 U/L (15-37) Alanine Aminotransferase (ALT/SGPT) 27 U/L (12-78) Alkaline Phosphatase 111 U/L (46-116) Pro-B-Type Natriuretic Peptide 399 pg/mL (0-125) H Total Protein 7.4 G/DL (6.4-8.2) Albumin 1.5 G/DL (3.4-5.0) L Globulin 5.9 g/dL Albumin/Globulin Ratio 0.3 (1.0-2.7) L Current Medications Medications (Trade) Dose Ordered Sig/Kike Route PRN Reason Start Time Stop Time Status Last Admin Dose Admin Acetaminophen (Tylenol) 650 mg Q4H PRN ORAL fever 07/21/19 05:30 08/17/19 05:29 Amlodipine Besylate (Norvasc) 2.5 mg DAILY NG 07/24/19 09:00 08/23/19 08:59 07/29/19 09:22 Barium Sulfate (Varibar Honey) 250 ml NOW PRN MC RAD 07/27/19 12:45 07/30/19 12:33 Barium Sulfate (Varibar [place]selmo) 240 ml NOW PRN MC RAD 07/27/19 12:45 07/30/19 12:33 Barium Sulfate (Varibar Pudding) 230 ml NOW PRN MC RAD 07/27/19 12:45 07/30/19 12:33 Folic Acid (Folate) 2 mg DAILY ORAL 07/21/19 09:00 08/19/19 11:29 07/29/19 09:22 Lansoprazole (Prevacid) 30 mg BID NG 07/23/19 18:00 08/22/19 17:59 07/29/19 09:21 Levothyroxine Sodium (Synthroid) 50 mcg DAILY@0630 ORAL 07/21/19 06:30 08/18/19 06:29 07/29/19 06:30 Ondansetron HCl (Zofran) 4 mg Q6H PRN IVP Nausea & Vomiting 07/21/19 08:15 08/17/19 14:14 Polyethylene Glycol (Miralax) 17 gm DAILYPRN PRN ORAL Constipation 07/21/19 05:30 08/17/19 05:29 Quetiapine Fumarate (SEROqueL) 25 mg Q8H PRN ORAL agitation 07/21/19 05:30 08/17/19 05:29 07/29/19 09:21 Vancomycin HCl (Vanco rx to dose) 1 ea DAILY PRN MISC Per rx protocol 07/21/19 09:00 08/17/19 14:29 Vancomycin/Sodium Chloride 275 ml @ 183.333 mls/hr Q24H IVPB 07/28/19 18:00 08/01/19 17:59 07/28/19 17:57 Danielle Roach M.D. Jul 29, 2019 11:51
[2019-07-29 12:00] VITALS: BP 131/62
--- NOTE | 2019-07-29 12:00 | NUR ---
NURSE NOTES: Pt stable no distress presented.turned and repositioned.
--- NOTE | 2019-07-29 12:25 | Pulmonology Progress Note ---
Assessment/Plan Problems: (1) Pulmonary edema (2) Nosocomial pneumonia (3) Pleural effusion Assessment & Plan: thoracentesis done, 780 cc removed (4) Sepsis Assessment & Plan: afebrile, wbc wnl (5) Atrial fibrillation (6) Acute renal failure (7) Acute metabolic encephalopathy (8) Severe anemia (9) Alzheimer's dementia (10) History of CVA (cerebrovascular accident) (11) Diabetes mellitus (12) Hypothyroidism Assessment/Plan still on face mask, try to change to nasal cannula no new complains, improving more awake failed the swallow study previously, video swallow showed silent aspiration. non-oral feeding. family meeting to decide about plan of care cxr showing 07/29 increasing edema and effusion, will add Lasix 20 qd, pt is 8 liters positive in fluid balance respiratory treatment NG tube in, tolerating well sliding scale f/u renal function Venofer for iron deficiency DVT prophylaxis. Subjective ROS Limited/Unobtainable: No Constitutional: Reports: no symptoms HEENT: Repors: no symptoms Respiratory: Reports: no symptoms Allergies: Coded Allergies: PENICILLINS (Verified Allergy, Unknown, 10/27/18) tolretas cephalosporins Objective Last 24 Hour Vital Signs Date Time Temp Pulse Resp B/P (MAP) Pulse Ox O2 Delivery O2 Flow Rate FiO2 07/29/19 12:00 Venturi Mask 4.0 07/29/19 12:00 4.0 30 07/29/19 09:22 68 137/65 07/29/19 08:00 98.4 70 22 137/65 (89) 97 07/29/19 08:00 68 07/29/19 08:00 4.0 30 07/29/19 08:00 Venturi Mask 4.0 07/29/19 04:00 Venturi Mask 4.0 07/29/19 04:00 4.0 30 07/29/19 04:00 98.0 71 24 159/60 (93) 97 07/29/19 03:56 64 07/29/19 00:00 Venturi Mask 4.0 07/29/19 00:00 4.0 30 07/29/19 00:00 97.9 72 24 154/63 (93) 92 07/28/19 21:40 94 Venturi Mask 4.0 30 07/28/19 21:40 68 18 94 Venturi Mask 4.0 30 07/28/19 20:00 98.4 63 24 127/57 (80) 92 07/28/19 20:00 63 07/28/19 20:00 4.0 30 07/28/19 20:00 64 07/28/19 20:00 Venturi Mask 4.0 07/28/19 16:00 4.0 30 07/28/19 16:00 60 07/28/19 16:00 Venturi Mask 4.0 07/28/19 16:00 96.8 67 22 113/56 (75) 100 Intake and Output 07/28/19 07/29/19 19:00 07:00 Intake Total 1263.333 ml 765 ml Output Total 750 ml 900 ml Balance 513.333 ml -135 ml Free Water 300 ml 50 ml IV Total 183.333 ml Tube Feeding 780 ml 715 ml Output Urine Total 750 ml 900 ml # Bowel Movements 1 General Appearance: cachetic HEENT: normocephalic, atraumatic Respiratory/Chest: chest wall non-tender, crackles/rales Cardiovascular: normal peripheral pulses, normal rate Abdomen: normal bowel sounds, no organomegaly Genitourinary: normal external genitalia Skin: no rash Neurologic/Psychiatric: no motor/sensory deficits Lymphatic: no neck adenopathy Microbiology Date/Time Source Procedure Growth Status 07/26/19 14:00 Pleural Fluid Gram Stain - Final Resulted 07/26/19 14:00 Pleural Fluid Body Fluid Culture - Preliminary NO GROWTH AFTER 72 HOURS Resulted Laboratory Tests 07/29/19 03:50: White Blood Count 9.2, Red Blood Count 3.54L, Hemoglobin 8.9L, Hematocrit 27.8L , Mean Corpuscular Volume 78L, Mean Corpuscular Hemoglobin 25.0L, Mean Corpuscular Hemoglobin Concent 31.9L, Red Cell Distribution Width 16.7H, Platelet Count 384, Mean Platelet Volume 5.8L, Neutrophils (%) (Auto) 70.2, Lymphocytes (%) (Auto) 16.0L, Monocytes (%) (Auto) 7.3, Eosinophils (%) (Auto) 5.7H, Basophils (%) (Auto) 0.8, Sodium Level 140, Potassium Level 4.4, Chloride Level 103, Carbon Dioxide Level 26, Anion Gap 11, Blood Urea Nitrogen 21H, Creatinine 1.1, Estimat Glomerular Filtration Rate > 60, Glucose Level 103, Calcium Level 9.3, Total Bilirubin 0.2, Aspartate Amino Transf (AST/SGOT) 30, Alanine Aminotransferase (ALT/SGPT) 27, Alkaline Phosphatase 111, Pro-B-Type Natriuretic Peptide 399H, Total Protein 7.4, Albumin 1.5L, Globulin 5.9, Albumin /Globulin Ratio 0.3L Current Medications Medications (Trade) Dose Ordered Sig/Kike Route PRN Reason Start Time Stop Time Status Last Admin Dose Admin Acetaminophen (Tylenol) 650 mg Q4H PRN ORAL fever 07/21/19 05:30 08/17/19 05:29 Amlodipine Besylate (Norvasc) 2.5 mg DAILY NG 07/24/19 09:00 08/23/19 08:59 07/29/19 09:22 Barium Sulfate (Varibar Honey) 250 ml NOW PRN MC RAD 07/27/19 12:45 07/30/19 12:33 Barium Sulfate (Varibar [place]) 240 ml NOW PRN MC RAD 07/27/19 12:45 07/30/19 12:33 Barium Sulfate (Varibar Pudding) 230 ml NOW PRN MC RAD 07/27/19 12:45 07/30/19 12:33 Folic Acid (Folate) 2 mg DAILY ORAL 07/21/19 09:00 08/19/19 11:29 07/29/19 09:22 Lansoprazole (Prevacid) 30 mg BID NG 07/23/19 18:00 08/22/19 17:59 07/29/19 09:21 Levothyroxine Sodium (Synthroid) 50 mcg DAILY@0630 ORAL 07/21/19 06:30 08/18/19 06:29 07/29/19 06:30 Ondansetron HCl (Zofran) 4 mg Q6H PRN IVP Nausea & Vomiting 07/21/19 08:15 08/17/19 14:14 Polyethylene Glycol (Miralax) 17 gm DAILYPRN PRN ORAL Constipation 07/21/19 05:30 08/17/19 05:29 Quetiapine Fumarate (SEROqueL) 25 mg Q8H PRN ORAL agitation 07/21/19 05:30 08/17/19 05:29 07/29/19 09:21 Vancomycin HCl (Vanco rx to dose) 1 ea DAILY PRN MISC Per rx protocol 07/21/19 09:00 08/17/19 14:29 Vancomycin/Sodium Chloride 275 ml @ 183.333 mls/hr Q24H IVPB 07/28/19 18:00 08/01/19 17:59 07/28/19 17:57 Vania Hui MD Jul 29, 2019 12:25
--- NOTE | 2019-07-29 13:02 | NUR ---
CASE MANAGEMENT: REVIEW 07/29/19 SI:Nosocomial pneumonia. Pleural effusion. T 97.3 HR 69 RR 22 B/P 131/62 SATS 92% ON 4L/VENTURI MASK FIO2 30 LABS: BUN 21 BNP 399 IS: VANCO IV QD NORVASC NG QD PREVACID NG BID SDU PLAN OF CARE: video swallow study showed silent aspiration. non-oral feeding. family meeting to decide about plan of care
--- NOTE | 2019-07-29 13:06 | NUR ---
INSURANCE REVIEWS FAXED TO [facility] P- [phone] F- [phone]...REVIEW/CLINICAL
--- NOTE | 2019-07-29 13:48 | Nephrology Progress Note ---
Assessment/Plan Problem List: (1) Acute renal failure (2) Severe anemia (3) Sepsis (4) Diabetes mellitus (5) Hypothyroidism Assessment Alexi Cr lowering 2.6 to 1.8 Sepsis / Pneumonia / UTI / Hypothermia Respiratory failure HypoThyroidism h/o CVA Anemia Dementia Plan DC Hydrate IV iron Phos supplement as needed antibiotics avoid nephrotoxics monitor renal parameters check TFTs- adjust synthroid dose Urine eos per orders Subjective ROS Limited/Unobtainable: Yes Objective Objective Last 24 Hour Vital Signs Date Time Temp Pulse Resp B/P (MAP) Pulse Ox O2 Delivery O2 Flow Rate FiO2 07/29/19 12:00 69 07/29/19 12:00 97.3 67 22 131/62 (85) 92 07/29/19 12:00 Venturi Mask 4.0 07/29/19 12:00 4.0 30 07/29/19 09:22 68 137/65 07/29/19 08:00 98.4 70 22 137/65 (89) 97 07/29/19 08:00 68 07/29/19 08:00 4.0 30 07/29/19 08:00 Venturi Mask 4.0 07/29/19 04:00 Venturi Mask 4.0 07/29/19 04:00 4.0 30 07/29/19 04:00 98.0 71 24 159/60 (93) 97 07/29/19 03:56 64 07/29/19 00:00 Venturi Mask 4.0 07/29/19 00:00 4.0 30 07/29/19 00:00 97.9 72 24 154/63 (93) 92 07/28/19 21:40 94 Venturi Mask 4.0 30 07/28/19 21:40 68 18 94 Venturi Mask 4.0 30 07/28/19 20:00 98.4 63 24 127/57 (80) 92 07/28/19 20:00 63 07/28/19 20:00 4.0 30 07/28/19 20:00 64 07/28/19 20:00 Venturi Mask 4.0 07/28/19 16:00 4.0 30 07/28/19 16:00 60 07/28/19 16:00 Venturi Mask 4.0 07/28/19 16:00 96.8 67 22 113/56 (75) 100 Intake and Output 07/28/19 07/29/19 19:00 07:00 Intake Total 1263.333 ml 765 ml Output Total 750 ml 900 ml Balance 513.333 ml -135 ml Free Water 300 ml 50 ml IV Total 183.333 ml Tube Feeding 780 ml 715 ml Output Urine Total 750 ml 900 ml # Bowel Movements 1 Laboratory Tests 07/29/19 03:50: White Blood Count 9.2, Red Blood Count 3.54L, Hemoglobin 8.9L, Hematocrit 27.8L , Mean Corpuscular Volume 78L, Mean Corpuscular Hemoglobin 25.0L, Mean Corpuscular Hemoglobin Concent 31.9L, Red Cell Distribution Width 16.7H, Platelet Count 384, Mean Platelet Volume 5.8L, Neutrophils (%) (Auto) 70.2, Lymphocytes (%) (Auto) 16.0L, Monocytes (%) (Auto) 7.3, Eosinophils (%) (Auto) 5.7H, Basophils (%) (Auto) 0.8, Sodium Level 140, Potassium Level 4.4, Chloride Level 103, Carbon Dioxide Level 26, Anion Gap 11, Blood Urea Nitrogen 21H, Creatinine 1.1, Estimat Glomerular Filtration Rate > 60, Glucose Level 103, Calcium Level 9.3, Total Bilirubin 0.2, Aspartate Amino Transf (AST/SGOT) 30, Alanine Aminotransferase (ALT/SGPT) 27, Alkaline Phosphatase 111, Pro-B-Type Natriuretic Peptide 399H, Total Protein 7.4, Albumin 1.5L, Globulin 5.9, Albumin /Globulin Ratio 0.3L Height (Feet): 6 Height (Inches): 1.00 Weight (Pounds): 151 General Appearance: no apparent distress Cardiovascular: normal rate Respiratory/Chest: decreased breath sounds Abdomen: soft Objective no change Clovis Benites MD Jul 29, 2019 13:48
--- NOTE | 2019-07-29 15:04 | Diagnostic Imaging Report ---
Indication: Dyspnea Technique: One view of the chest Comparison: 07/26/2019 Findings: There is increased interstitial and airspace edema. Bilateral pleural effusions persist, unchanged on the left and perhaps slightly increased on the right. The heart remains enlarged. Impression: Increasing interstitial and airspace edema, increasing right pleural fluid, over 3 days
[2019-07-29 16:00] VITALS: BP 138/59
--- NOTE | 2019-07-29 16:00 | NUR ---
NURSE NOTES: No change in pt condition stable ,turned and repositioned.
--- NOTE | 2019-07-29 17:05 | Diagnostic Imaging Report ---
Indications: Dysphagia Technique: Patient ingested multiple substances under the supervision of speech pathology. Video fluoroscopic recording performed. Total fluoroscopy time 167 seconds. Total dose area product 0.77405 mGycm2 Total number of images-6 Comparison: none Findings: With ingestion of thin liquid barium, there is aspiration. Delayed swallow. Ingestion of nectar thick liquid barium demonstrates supraglottic laryngeal penetration. Impression: Positive for aspiration of thin liquid barium, penetration of nectar thick liquid barium Please refer to speech pathology report for more detailed analysis
[2019-07-29] MEDS: Vancomycin 1.25gm/NS Premix q24h IVPB SCH (18:10)
--- NOTE | 2019-07-29 19:00 | NUR ---
HAND-OFF: Report given to Cheri Moreno .
--- NOTE | 2019-07-29 19:00 | Internal Med Progress Note ---
Subjective Date of Service: Jul 29, 2019 Physician Name Xander Bah Attending Physician Lamont Hayes MD Current Medications Medications (Trade) Dose Ordered Sig/Kike Route PRN Reason Start Time Stop Time Status Last Admin Dose Admin Acetaminophen (Tylenol) 650 mg Q4H PRN ORAL fever 07/21/19 05:30 08/17/19 05:29 Amlodipine Besylate (Norvasc) 2.5 mg DAILY NG 07/24/19 09:00 08/23/19 08:59 07/29/19 09:22 Barium Sulfate (Varibar Honey) 250 ml NOW PRN MC RAD 07/27/19 12:45 07/30/19 12:33 Barium Sulfate (Varibar [place]) 240 ml NOW PRN MC RAD 07/27/19 12:45 07/30/19 12:33 Barium Sulfate (Varibar Pudding) 230 ml NOW PRN MC RAD 07/27/19 12:45 07/30/19 12:33 Folic Acid (Folate) 2 mg DAILY ORAL 07/21/19 09:00 08/19/19 11:29 07/29/19 09:22 Furosemide (Lasix) 20 mg DAILY IV 07/30/19 09:00 08/29/19 08:59 Lansoprazole (Prevacid) 30 mg BID NG 07/23/19 18:00 08/22/19 17:59 07/29/19 18:10 Levothyroxine Sodium (Synthroid) 50 mcg DAILY@0630 ORAL 07/21/19 06:30 08/18/19 06:29 07/29/19 06:30 Ondansetron HCl (Zofran) 4 mg Q6H PRN IVP Nausea & Vomiting 07/21/19 08:15 08/17/19 14:14 Polyethylene Glycol (Miralax) 17 gm DAILYPRN PRN ORAL Constipation 07/21/19 05:30 08/17/19 05:29 Quetiapine Fumarate (SEROqueL) 25 mg Q8H PRN ORAL agitation 07/21/19 05:30 08/17/19 05:29 07/29/19 09:21 Vancomycin HCl (Vanco rx to dose) 1 ea DAILY PRN MISC Per rx protocol 07/21/19 09:00 08/17/19 14:29 Vancomycin/Sodium Chloride 275 ml @ 183.333 mls/hr Q24H IVPB 07/28/19 18:00 08/01/19 17:59 07/29/19 18:10 Allergies: Coded Allergies: PENICILLINS (Verified Allergy, Unknown, 10/27/18) tolretas cephalosporins ROS Limited/Unobtainable: Yes Subjective 84 YO M admitted with altered mental status. Now pneumonia and severe sepsis. Cover for Int Med-Dr Hayes. [place] Objective Last Vital Signs Date Time Temp Pulse Resp B/P (MAP) Pulse Ox O2 Delivery O2 Flow Rate FiO2 07/29/19 16:00 4.0 30 07/29/19 16:00 97.9 70 22 138/59 (85) 98 07/29/19 16:00 Venturi Mask Laboratory Tests Test 07/29/19 03:50 White Blood Count 9.2 K/UL (4.8-10.8) Red Blood Count 3.54 M/UL (4.70-6.10) L Hemoglobin 8.9 G/DL (14.2-18.0) L Hematocrit 27.8 % (42.0-52.0) L Mean Corpuscular Volume 78 FL (80-99) L Mean Corpuscular Hemoglobin 25.0 PG (27.0-31.0) L Mean Corpuscular Hemoglobin Concent 31.9 G/DL (32.0-36.0) L Red Cell Distribution Width 16.7 % (11.6-14.8) H Platelet Count 384 K/UL (150-450) Mean Platelet Volume 5.8 FL (6.5-10.1) L Neutrophils (%) (Auto) 70.2 % (45.0-75.0) Lymphocytes (%) (Auto) 16.0 % (20.0-45.0) L Monocytes (%) (Auto) 7.3 % (1.0-10.0) Eosinophils (%) (Auto) 5.7 % (0.0-3.0) H Basophils (%) (Auto) 0.8 % (0.0-2.0) Sodium Level 140 MMOL/L (136-145) Potassium Level 4.4 MMOL/L (3.5-5.1) Chloride Level 103 MMOL/L (98-107) Carbon Dioxide Level 26 MMOL/L (21-32) Anion Gap 11 mmol/L (5-15) Blood Urea Nitrogen 21 mg/dL (7-18) H Creatinine 1.1 MG/DL (0.55-1.30) Estimat Glomerular Filtration Rate > 60 mL/min (>60) Glucose Level 103 MG/DL (74-106) Calcium Level 9.3 MG/DL (8.5-10.1) Total Bilirubin 0.2 MG/DL (0.2-1.0) Aspartate Amino Transf (AST/SGOT) 30 U/L (15-37) Alanine Aminotransferase (ALT/SGPT) 27 U/L (12-78) Alkaline Phosphatase 111 U/L (46-116) Pro-B-Type Natriuretic Peptide 399 pg/mL (0-125) H Total Protein 7.4 G/DL (6.4-8.2) Albumin 1.5 G/DL (3.4-5.0) L Globulin 5.9 g/dL Albumin/Globulin Ratio 0.3 (1.0-2.7) L Intake and Output 07/28/19 07/29/19 19:00 07:00 Intake Total 1263.333 ml 765 ml Output Total 750 ml 900 ml Balance 513.333 ml -135 ml Free Water 300 ml 50 ml IV Total 183.333 ml Tube Feeding 780 ml 715 ml Output Urine Total 750 ml 900 ml # Bowel Movements 1 Objective PHYSICAL EXAMINATION: GENERAL: The patient is a well-developed, well-nourished, thin-appearing male, who is in moderate respiratory distress. HEENT: Eyes, pupils are equal and responsive to light and accommodation. Extraocular movements are intact. NECK: Supple without lymphadenopathy. CHEST: Venturi mask; Lungs with bilateral wheezes and rhonchi; breath sounds decreased at bases CARDIOVASCULAR: Regular rhythm and rate. S1 and S2 are normal without murmurs, rubs, or gallops. ABDOMEN: Soft, nontender, and nondistended. Positive bowel sounds. No evidence of hepatosplenomegaly. Currently, no rebound or guarding noted. EXTREMITIES: Negative for clubbing, cyanosis, or edema. RECTAL/GENITAL: Not performed. NEUROLOGIC: Cranial nerves II through XII are grossly intact without focal deficits. Motor strength is 5/5 bilaterally. Deep tendon reflexes are 2+ plantar. Assessment/Plan Assessment/Plan ASSESSMENT: This is an 84-year-old male. 1. Bilateral pneumonia. 2. Respiratory failure. 3. Probable sepsis. 4. Altered mental status. 5. Diabetes type 2. 6. Hypothyroidism. 7. Cerebrovascular disease. 8. Acute renal failure. 9. Leukocytosis 10. Hypernatremia 11. Right pleural effusion TREATMENT: 1. Respiratory failure/bilateral pneumonia. A Pulmonary consultation has been obtained with Dr. Vania Hui. The patient is currently admitted to the intensive care unit. The patient is currently on a venturi mask. The patient has been started empirically on vancomycin and ertapenem. A sputum culture =MRSA. ABX=vanco per ID=Dr Roach 2. Altered mental status. This is probably secondary to hypoxia secondary to pneumonia as above. 3. Diabetes type 2. The patient was admitted without antihyperglycemic medication. 4. Hypothyroidism. Continue Levoxyl as above. 5. Cerebrovascular disease. The patient is status post cerebrovascular accident. 6. Acute renal failure. This may be secondary to acute dehydration. The patient is currently receiving intravenous fluids. 7. Severe Sepsis. ABX=cefepime, vanco and meropenem. ID=Dr Matias 8. S/P right thoracentesis 07/26/19 Xander Bah MD Jul 29, 2019 19:00
--- NOTE | 2019-07-29 19:05 | NUR ---
NURSE NOTES: Received pt from KAI Albrecht. Pt is observed resting in bed and is responsive to name but remains confused. Pt is able to make needs known, no signs or symptoms of pain noted upon physical assessment. Pt is currently on Venturi mask at 30% FiO2 with no s/sx of respiratory distress noted and an O2 saturation of 94%. Pt remains SR with a HR of 86 noted and no s/sx of cardiac distress noted. R Hand 22G IV catheter noted which remains asymptomatic, intact and infusing Vancomycin as prescribed. Skin alterations noted and diagnostics reviewed. Aspiration precautions maintained. Pt noted to have failed swallow eval; NG tube noted in the L nare at the 65cm joselo. NG tube remains patent and i. P200 mattress being utilized, pt to be switched to a michael bed. Pt remains resting in bed; bed remains in lowest position with safety wheels engaged, call light within reach, side rails up x3 and bed alarm activated. Addendum: 07/29/19 at 1941 by DESTINY MONSALVE RN Pt on Vassar bed with mattress overlay being utilized. Will continue to monitor. Will continue plan of care. Addendum: 07/29/19 at 1951 by DESTINY MONSALVE RN Pt received from KAI Ramirez.
[2019-07-29 20:00] VITALS: BP 137/60
--- NOTE | 2019-07-29 23:40 | NUR ---
NURSE NOTES: Pt provided with a bed bath, oral care and linen changed. Pt noted to have a blister on his back, covered with optifoam for protection. Pt also noted to have partial pressure injury behind both ears from the elastic strap on the venturi mask. Straps placed below both ears and foam tape used for protection. Wound care protocol utilized. Assessed patient for removal of restraints. Pt immediately attempted to pull NG tube out after pulling venturi mask off of face despite patient education. Unsafe to remove restraints at this time. ROM exercises performed, CMS remain intact. Pt remains sleeping in bed; bed remain in lowest position with safety wheels engaged, bed alarm activated, call light within reach and side rail up x3. Will continue to monitor.
[2019-07-30] VITALS: BP 146/60
--- NOTE | 2019-07-30 01:43 | NUR ---
NURSE NOTES: Pt awake during hourly rounds. Discussed with pt indication for and care of restrained patient. Discussed with patient criteria for removal. Assessed patient for safe removal of restraints. Pt indicates that he doesnt know why he attempts to remove medical devices including NGT. Pt states he is forgetful and becomes confused at times. Pt noted to be trying to pull NGT out with restraints on during conversation. Pt not able to recall the aforementioned talking points by end of conversation. Unsafe to remove restraints at this time. CMS remains intact and ROM exercises performed with patient. Will continue to monitor.
[2019-07-30 04:00] VITALS: BP 110/58
--- NOTE | 2019-07-30 07:22 | NUR ---
HAND-OFF: Report given to KAI Ramirez. Pt remains stable at this time.
--- NOTE | 2019-07-30 07:25 | NUR ---
NURSE NOTES: Report received from Michelle QUINN.Pt in bed awake,confused, with bilat soft wrist restraint,noted no resp distress on 4L venturi Mask ,no signs of pain or discomfort,S-R on the monitor,NGT to RT nare intact with Glucerna Feeding 1.2 at 65 ml/hr in placed per auscultation,no residual noted,condom cath in placed draining yellow urine,skin warm and dry ,IV Heplock to RT hand intact ,SR up x2 HOB elevated,bed lock in lowest position,will continue with plans of care.
[2019-07-30 07:29] LABS: ANION GAP 7 mmol/L (5-15); BLOOD UREA NITROGEN 23 mg/dL (7-18); CALCIUM 9.2 MG/DL (8.5-10.1); CARBON DIOXIDE 28 MMOL/L (21-32); CHLORIDE 103 MMOL/L (98-107); CREATININE 1.1 MG/DL (0.55-1.30); POTASSIUM 4.6 MMOL/L (3.5-5.1); SODIUM 138 MMOL/L (136-145)
[2019-07-30 08:00] VITALS: BP 110/68
[2019-07-30 08:18] LABS: BASOPHILS % (AUTO) 0.6 % (0.0-2.0); EOSINOPHILS % (AUTO) 5.6 % (0.0-3.0); HEMATOCRIT 26.6 % (42.0-52.0); HEMOGLOBIN 8.6 G/DL (14.2-18.0); LYMPHOCYTES % (AUTO) 14.6 % (20.0-45.0); MEAN CORPUSCULAR VOLUME 79 FL (80-99); MONOCYTES % (AUTO) 7.4 % (1.0-10.0); NEUTROPHILS % (AUTO) 71.8 % (45.0-75.0); PLATELET COUNT 438 K/UL (150-450); RED BLOOD COUNT 3.36 M/UL (4.70-6.10); RED CELL DISTRIBUTION WIDTH 17.9 % (11.6-14.8)
--- NOTE | 2019-07-30 10:22 | Infectious Diseases Prog Note ---
Assessment/Plan Assessment/Plan Assessment: Severe sepsis Pneumonia Probable UTI -07/25 CXR: Markedly increased right basilar opacity, likely increasing pleural fluid -07/22 CXR: Worsening CHF -u/a wbc 15-20, nit neg, leuk +3; ucx <10k Proteus sp (R Amp, ancef, macrobid ; otherwise), 70-80K S. viridans -07/19 CXR: marked worsening of pleural and parenchymal disease at the right lung base.There is also increasing parenchymal consolidation and atelectasis in the left infrahilar region. -CXR: Perihilar and basilar infiltrates. Findings suspicious for pneumonia. -influenza sc neg -Bcx NTD -sp cx MRSA, C. albicans -legionella ag urine neg R pleural effusion -07/26 SP thoracentesis: Successful ultrasound-guided thoracentesis, yielding 780 milliliters of fluid --Cx NTD -07/26 CXR: Improved right pleural effusion, post thoracentesis. No radiographically evident complication Hypothermia, SP Leukocytosis, SP Acute respiratory failure, sp NRB mask/VEnturi mask Lactic acidosis, SP RAMAN, SP Dm2 HTN non verbal hypothyroidism CVA hx of UTI anemia dementia assisted resident Plan: -Continue empiric IV Vancomycin #/ for MRSA PNA -07/26 SP Cefepime #5 -07/22 SP Barbara #4 -07/19 SP Ertapenem #2 -07/18 SP IV Amikacin x1, Levaquin x1 -f/u cx -Monitor CBC/CMP, temperatures -aspiration precautions Thank you for this consultation. Will continue to follow along with you. Subjective Allergies: Coded Allergies: PENICILLINS (Verified Allergy, Unknown, 10/27/18) tolretas cephalosporins Subjective Afebrile On 6L Venti No Leukoctyosis Objective Vital Signs Last 24 Hour Vital Signs Date Time Temp Pulse Resp B/P (MAP) Pulse Ox O2 Delivery O2 Flow Rate FiO2 07/30/19 09:34 66 110/82 07/30/19 08:00 98.0 66 19 110/68 (82) 97 07/30/19 07:58 95 Venturi Mask 6.0 35 07/30/19 07:57 73 21 95 Venturi Mask 6.0 35 07/30/19 04:00 4.0 30 07/30/19 04:00 98.2 75 20 110/58 (75) 98 07/30/19 04:00 Venturi Mask 4.0 07/30/19 03:38 64 07/30/19 00:00 64 07/30/19 00:00 97.9 67 20 146/60 (88) 97 07/30/19 00:00 Venturi Mask 4.0 07/29/19 20:07 70 07/29/19 20:00 97.8 95 21 137/60 (85) 100 07/29/19 20:00 4.0 30 07/29/19 20:00 Venturi Mask 4.0 07/29/19 19:22 100 Venturi Mask 4.0 30 07/29/19 19:21 72 18 100 Venturi Mask 4.0 30 07/29/19 16:00 4.0 30 07/29/19 16:00 97.9 70 22 138/59 (85) 98 07/29/19 16:00 Venturi Mask 4.0 07/29/19 16:00 64 07/29/19 12:00 69 07/29/19 12:00 97.3 67 22 131/62 (85) 92 07/29/19 12:00 Venturi Mask 4.0 07/29/19 12:00 4.0 30 Height (Feet): 6 Height (Inches): 1.00 Weight (Pounds): 150 Objective GENERAL: no respiratory distress. NECK: Supple CHEST: decreased breath sounds CARDIOVASCULAR: Regular rhythm and rate. S1 and S2 are normal ABDOMEN: Soft, nontender, and nondistended Laboratory Tests Test 07/30/19 04:32 White Blood Count 9.0 K/UL (4.8-10.8) Red Blood Count 3.36 M/UL (4.70-6.10) L Hemoglobin 8.6 G/DL (14.2-18.0) L Hematocrit 26.6 % (42.0-52.0) L Mean Corpuscular Volume 79 FL (80-99) L Mean Corpuscular Hemoglobin 25.6 PG (27.0-31.0) L Mean Corpuscular Hemoglobin Concent 32.4 G/DL (32.0-36.0) Red Cell Distribution Width 17.9 % (11.6-14.8) H Platelet Count 438 K/UL (150-450) Mean Platelet Volume 5.6 FL (6.5-10.1) L Neutrophils (%) (Auto) 71.8 % (45.0-75.0) Lymphocytes (%) (Auto) 14.6 % (20.0-45.0) L Monocytes (%) (Auto) 7.4 % (1.0-10.0) Eosinophils (%) (Auto) 5.6 % (0.0-3.0) H Basophils (%) (Auto) 0.6 % (0.0-2.0) Sodium Level 138 MMOL/L (136-145) Potassium Level 4.6 MMOL/L (3.5-5.1) Chloride Level 103 MMOL/L (98-107) Carbon Dioxide Level 28 MMOL/L (21-32) Anion Gap 7 mmol/L (5-15) Blood Urea Nitrogen 23 mg/dL (7-18) H Creatinine 1.1 MG/DL (0.55-1.30) Estimat Glomerular Filtration Rate > 60 mL/min (>60) Glucose Level 106 MG/DL (74-106) Calcium Level 9.2 MG/DL (8.5-10.1) Current Medications Medications (Trade) Dose Ordered Sig/Kike Route PRN Reason Start Time Stop Time Status Last Admin Dose Admin Acetaminophen (Tylenol) 650 mg Q4H PRN ORAL fever 07/21/19 05:30 08/17/19 05:29 Amlodipine Besylate (Norvasc) 2.5 mg DAILY NG 07/24/19 09:00 08/23/19 08:59 07/30/19 09:34 Barium Sulfate (Varibar Honey) 250 ml NOW PRN MC RAD 07/27/19 12:45 07/30/19 12:33 Barium Sulfate (Varibar [place]) 240 ml NOW PRN MC RAD 07/27/19 12:45 07/30/19 12:33 Barium Sulfate (Varibar Pudding) 230 ml NOW PRN MC RAD 07/27/19 12:45 07/30/19 12:33 Folic Acid (Folate) 2 mg DAILY ORAL 07/21/19 09:00 08/19/19 11:29 07/30/19 09:33 Furosemide (Lasix) 20 mg DAILY IV 07/30/19 09:00 08/29/19 08:59 07/30/19 09:32 Lansoprazole (Prevacid) 30 mg BID NG 07/23/19 18:00 08/22/19 17:59 07/30/19 09:33 Levothyroxine Sodium (Synthroid) 50 mcg DAILY@0630 ORAL 07/21/19 06:30 08/18/19 06:29 07/30/19 06:03 Ondansetron HCl (Zofran) 4 mg Q6H PRN IVP Nausea & Vomiting 07/21/19 08:15 08/17/19 14:14 Polyethylene Glycol (Miralax) 17 gm DAILYPRN PRN ORAL Constipation 07/21/19 05:30 08/17/19 05:29 Quetiapine Fumarate (SEROqueL) 25 mg Q8H PRN ORAL agitation 07/21/19 05:30 08/17/19 05:29 07/29/19 09:21 Vancomycin HCl (Vanco rx to dose) 1 ea DAILY PRN MISC Per rx protocol 07/21/19 09:00 08/17/19 14:29 Vancomycin/Sodium Chloride 275 ml @ 183.333 mls/hr Q24H IVPB 07/28/19 18:00 08/01/19 17:59 07/29/19 18:10 Tomas Lira MD Jul 30, 2019 10:22
--- NOTE | 2019-07-30 11:25 | Nephrology Progress Note ---
Assessment/Plan Problem List: (1) Acute renal failure (2) Severe anemia (3) Sepsis (4) Diabetes mellitus (5) Hypothyroidism Assessment Alexi Cr lowering 2.6 to 1.8 Sepsis / Pneumonia / UTI / Hypothermia Respiratory failure HypoThyroidism h/o CVA Anemia Dementia Plan DC Hydrate IV iron Phos supplement as needed antibiotics avoid nephrotoxics monitor renal parameters check TFTs- adjust synthroid dose Urine eos per orders Subjective ROS Limited/Unobtainable: No Constitutional: Reports: malaise Objective Objective Last 24 Hour Vital Signs Date Time Temp Pulse Resp B/P (MAP) Pulse Ox O2 Delivery O2 Flow Rate FiO2 07/30/19 09:34 66 110/82 07/30/19 08:00 98.0 66 19 110/68 (82) 97 07/30/19 07:58 95 Venturi Mask 6.0 35 07/30/19 07:57 73 21 95 Venturi Mask 6.0 35 07/30/19 04:00 4.0 30 07/30/19 04:00 98.2 75 20 110/58 (75) 98 07/30/19 04:00 Venturi Mask 4.0 07/30/19 03:38 64 07/30/19 00:00 64 07/30/19 00:00 97.9 67 20 146/60 (88) 97 07/30/19 00:00 Venturi Mask 4.0 07/29/19 20:07 70 07/29/19 20:00 97.8 95 21 137/60 (85) 100 07/29/19 20:00 4.0 30 07/29/19 20:00 Venturi Mask 4.0 07/29/19 19:22 100 Venturi Mask 4.0 30 07/29/19 19:21 72 18 100 Venturi Mask 4.0 30 07/29/19 16:00 4.0 30 07/29/19 16:00 97.9 70 22 138/59 (85) 98 07/29/19 16:00 Venturi Mask 4.0 07/29/19 16:00 64 07/29/19 12:00 69 07/29/19 12:00 97.3 67 22 131/62 (85) 92 07/29/19 12:00 Venturi Mask 4.0 07/29/19 12:00 4.0 30 Intake and Output 07/29/19 07/30/19 19:00 07:00 Intake Total 1020 ml 990.000 ml Output Total 600 ml Balance 420 ml 990.000 ml Free Water 180 ml 130 ml IV Total 275.000 ml Tube Feeding 780 ml 585 ml Other 60 ml Output Urine Total 600 ml # Bowel Movements 1 Laboratory Tests 07/30/19 04:32: White Blood Count 9.0, Red Blood Count 3.36L, Hemoglobin 8.6L, Hematocrit 26.6L , Mean Corpuscular Volume 79L, Mean Corpuscular Hemoglobin 25.6L, Mean Corpuscular Hemoglobin Concent 32.4, Red Cell Distribution Width 17.9H, Platelet Count 438, Mean Platelet Volume 5.6L, Neutrophils (%) (Auto) 71.8, Lymphocytes (%) (Auto) 14.6L, Monocytes (%) (Auto) 7.4, Eosinophils (%) (Auto) 5.6H, Basophils (%) (Auto) 0.6, Sodium Level 138, Potassium Level 4.6, Chloride Level 103, Carbon Dioxide Level 28, Anion Gap 7, Blood Urea Nitrogen 23H, Creatinine 1.1, Estimat Glomerular Filtration Rate > 60, Glucose Level 106, Calcium Level 9.2 Height (Feet): 6 Height (Inches): 1.00 Weight (Pounds): 150 General Appearance: no apparent distress EENT: other - NGT Cardiovascular: normal rate Respiratory/Chest: decreased breath sounds Abdomen: soft Objective no change Clovis Benites MD Jul 30, 2019 11:25
--- NOTE | 2019-07-30 11:39 | Pulmonology Progress Note ---
Assessment/Plan Assessment/Plan ASSESSMENT Sepsis Acute respiratory failure, requiring NRM, now on VM Bilateral pneumonia R pleural effusion s/p thoracentesis 07/26 Acute metabolic encephalopathy UTI Diabetes mellitus type 2 Acute renal failure Cerebrovascular disease Hypothyroidism Hypernatremia Severe anemia Alzheimer dementia Anemia of iron deficiency PLAN OF CARE [place] O2 titrate to keep pulse ox above 92%, currently on Venturi mask , off NRM RT to try weaning to O2 via NC CXR 07/25 increasing R pleural effusion s/p tap 07/26-> 750 ml of pleural fluid, pleural fluid CX NGTD, cytology pending pulmonary toilet aspiration precautions TF via NGT CXR 07/29 Increasing interstitial and airspace edema, increasing right pleural fluid, over 3 days fup with CXR on Thursday, may need another tap abx as per ID SCX + Staph, Abi , UCX + Proteus , Strep viridans , BCX NGTD , repeated UCX negative swallow evaluation noted, monitor H&H with goal to keep hemoglobin above 7 stool OB negative CEA WNL anemia c/w AID, on venofer folic acid supplement DVT GI prophylaxis gentle IV hydration monitor renal parameters, lites ,correct electrolytes as needed, avoid nephrotoxic bowel regimen elevated TSH ; dose of Synthroid increased, repeat TFT in 1 month transfer to [facility] case discussed and evaluated by supervising physician Subjective Allergies: Coded Allergies: PENICILLINS (Verified Allergy, Unknown, 10/27/18) tolretas cephalosporins Subjective On O2 via VM, pulse ox stable , unable to wean down so far afebrile, no leukocytosis s/p tap 07/26 Objective Last 24 Hour Vital Signs Date Time Temp Pulse Resp B/P (MAP) Pulse Ox O2 Delivery O2 Flow Rate FiO2 07/30/19 09:34 66 110/82 07/30/19 08:00 98.0 66 19 110/68 (82) 97 07/30/19 07:58 95 Venturi Mask 6.0 35 07/30/19 07:57 73 21 95 Venturi Mask 6.0 35 07/30/19 04:00 4.0 30 07/30/19 04:00 98.2 75 20 110/58 (75) 98 07/30/19 04:00 Venturi Mask 4.0 07/30/19 03:38 64 07/30/19 00:00 64 07/30/19 00:00 97.9 67 20 146/60 (88) 97 07/30/19 00:00 Venturi Mask 4.0 07/29/19 20:07 70 07/29/19 20:00 97.8 95 21 137/60 (85) 100 07/29/19 20:00 4.0 30 07/29/19 20:00 Venturi Mask 4.0 07/29/19 19:22 100 Venturi Mask 4.0 30 07/29/19 19:21 72 18 100 Venturi Mask 4.0 30 07/29/19 16:00 4.0 30 07/29/19 16:00 97.9 70 22 138/59 (85) 98 07/29/19 16:00 Venturi Mask 4.0 07/29/19 16:00 64 07/29/19 12:00 69 07/29/19 12:00 97.3 67 22 131/62 (85) 92 07/29/19 12:00 Venturi Mask 4.0 07/29/19 12:00 4.0 30 Intake and Output 07/29/19 07/30/19 19:00 07:00 Intake Total 1020 ml 990.000 ml Output Total 600 ml Balance 420 ml 990.000 ml Free Water 180 ml 130 ml IV Total 275.000 ml Tube Feeding 780 ml 585 ml Other 60 ml Output Urine Total 600 ml # Bowel Movements 1 Objective HEENT: normocephalic, atraumatic, anicteric, on VM, NGT with TF Respiratory/Chest: decreased breath sounds Cardiovascular: normal rate Abdomen: soft, non tender Extremities: no edema Neurologic/Psychiatric: abnormal gait Musculoskeletal: atrophy Laboratory Tests 07/30/19 04:32: White Blood Count 9.0, Red Blood Count 3.36L, Hemoglobin 8.6L, Hematocrit 26.6L , Mean Corpuscular Volume 79L, Mean Corpuscular Hemoglobin 25.6L, Mean Corpuscular Hemoglobin Concent 32.4, Red Cell Distribution Width 17.9H, Platelet Count 438, Mean Platelet Volume 5.6L, Neutrophils (%) (Auto) 71.8, Lymphocytes (%) (Auto) 14.6L, Monocytes (%) (Auto) 7.4, Eosinophils (%) (Auto) 5.6H, Basophils (%) (Auto) 0.6, Sodium Level 138, Potassium Level 4.6, Chloride Level 103, Carbon Dioxide Level 28, Anion Gap 7, Blood Urea Nitrogen 23H, Creatinine 1.1, Estimat Glomerular Filtration Rate > 60, Glucose Level 106, Calcium Level 9.2 Current Medications Medications (Trade) Dose Ordered Sig/Kike Route PRN Reason Start Time Stop Time Status Last Admin Dose Admin Acetaminophen (Tylenol) 650 mg Q4H PRN ORAL fever 07/21/19 05:30 08/17/19 05:29 Amlodipine Besylate (Norvasc) 2.5 mg DAILY NG 07/24/19 09:00 08/23/19 08:59 07/30/19 09:34 Barium Sulfate (Varibar Honey) 250 ml NOW PRN MC RAD 07/27/19 12:45 07/30/19 12:33 Barium Sulfate (Varibar [place]) 240 ml NOW PRN MC RAD 07/27/19 12:45 07/30/19 12:33 Barium Sulfate (Varibar Pudding) 230 ml NOW PRN MC RAD 07/27/19 12:45 07/30/19 12:33 Folic Acid (Folate) 2 mg DAILY ORAL 07/21/19 09:00 08/19/19 11:29 07/30/19 09:33 Furosemide (Lasix) 20 mg DAILY IV 07/30/19 09:00 08/29/19 08:59 07/30/19 09:32 Lansoprazole (Prevacid) 30 mg BID NG 07/23/19 18:00 08/22/19 17:59 07/30/19 09:33 Levothyroxine Sodium (Synthroid) 50 mcg DAILY@0630 ORAL 07/21/19 06:30 08/18/19 06:29 07/30/19 06:03 Ondansetron HCl (Zofran) 4 mg Q6H PRN IVP Nausea & Vomiting 07/21/19 08:15 08/17/19 14:14 Polyethylene Glycol (Miralax) 17 gm DAILYPRN PRN ORAL Constipation 07/21/19 05:30 08/17/19 05:29 Quetiapine Fumarate (SEROqueL) 25 mg Q8H PRN ORAL agitation 07/21/19 05:30 08/17/19 05:29 07/29/19 09:21 Vancomycin HCl (Vanco rx to dose) 1 ea DAILY PRN MISC Per rx protocol 07/21/19 09:00 08/17/19 14:29 Vancomycin/Sodium Chloride 275 ml @ 183.333 mls/hr Q24H IVPB 07/28/19 18:00 08/01/19 17:59 07/29/19 18:10 Miranda Pimentel NP Jul 30, 2019 11:39
[2019-07-30] MEDS ORDERED: Albuterol/Ipratropium 3ml neb HHN PRN (11:45)
--- NOTE | 2019-07-30 12:00 | NUR ---
NURSE NOTES: Pt stable and quiet at this time asleep noted no resp distress,bilat soft wrist restraints in placed.
[2019-07-30 12:07] VITALS: BP 121/48
--- NOTE | 2019-07-30 15:34 | Internal Med Progress Note ---
Subjective Date of Service: Jul 30, 2019 Physician Name Xander Bah Attending Physician Lamont Hayes MD Current Medications Medications (Trade) Dose Ordered Sig/Kike Route PRN Reason Start Time Stop Time Status Last Admin Dose Admin Acetaminophen (Tylenol) 650 mg Q4H PRN ORAL fever 07/21/19 05:30 08/17/19 05:29 Albuterol/ Ipratropium (Albuterol/ Ipratropium) 3 ml Q4HRT PRN HHN sob 07/30/19 11:45 08/04/19 11:44 Amlodipine Besylate (Norvasc) 2.5 mg DAILY NG 07/24/19 09:00 08/23/19 08:59 07/30/19 09:34 Folic Acid (Folate) 2 mg DAILY ORAL 07/21/19 09:00 08/19/19 11:29 07/30/19 09:33 Furosemide (Lasix) 20 mg DAILY IV 07/30/19 09:00 08/29/19 08:59 07/30/19 09:32 Lansoprazole (Prevacid) 30 mg BID NG 07/23/19 18:00 08/22/19 17:59 07/30/19 09:33 Levothyroxine Sodium (Synthroid) 50 mcg DAILY@0630 ORAL 07/21/19 06:30 08/18/19 06:29 07/30/19 06:03 Ondansetron HCl (Zofran) 4 mg Q6H PRN IVP Nausea & Vomiting 07/21/19 08:15 08/17/19 14:14 Polyethylene Glycol (Miralax) 17 gm DAILYPRN PRN ORAL Constipation 07/21/19 05:30 08/17/19 05:29 Quetiapine Fumarate (SEROqueL) 25 mg Q8H PRN ORAL agitation 07/21/19 05:30 08/17/19 05:29 07/29/19 09:21 Vancomycin HCl (Vanco rx to dose) 1 ea DAILY PRN MISC Per rx protocol 07/21/19 09:00 08/17/19 14:29 Vancomycin/Sodium Chloride 275 ml @ 183.333 mls/hr Q24H IVPB 07/28/19 18:00 07/31/19 23:59 07/29/19 18:10 Allergies: Coded Allergies: PENICILLINS (Verified Allergy, Unknown, 10/27/18) tolretas cephalosporins ROS Limited/Unobtainable: Yes Subjective 84 YO M admitted with altered mental status. Now pneumonia and severe sepsis. Cover for Int Med-Dr Hayes. [place] Objective Last Vital Signs Date Time Temp Pulse Resp B/P (MAP) Pulse Ox O2 Delivery O2 Flow Rate FiO2 07/30/19 12:07 98.7 65 18 121/48 (72) 95 07/30/19 12:00 Venturi Mask 6.0 07/30/19 07:58 35 Laboratory Tests Test 07/30/19 04:32 White Blood Count 9.0 K/UL (4.8-10.8) Red Blood Count 3.36 M/UL (4.70-6.10) L Hemoglobin 8.6 G/DL (14.2-18.0) L Hematocrit 26.6 % (42.0-52.0) L Mean Corpuscular Volume 79 FL (80-99) L Mean Corpuscular Hemoglobin 25.6 PG (27.0-31.0) L Mean Corpuscular Hemoglobin Concent 32.4 G/DL (32.0-36.0) Red Cell Distribution Width 17.9 % (11.6-14.8) H Platelet Count 438 K/UL (150-450) Mean Platelet Volume 5.6 FL (6.5-10.1) L Neutrophils (%) (Auto) 71.8 % (45.0-75.0) Lymphocytes (%) (Auto) 14.6 % (20.0-45.0) L Monocytes (%) (Auto) 7.4 % (1.0-10.0) Eosinophils (%) (Auto) 5.6 % (0.0-3.0) H Basophils (%) (Auto) 0.6 % (0.0-2.0) Sodium Level 138 MMOL/L (136-145) Potassium Level 4.6 MMOL/L (3.5-5.1) Chloride Level 103 MMOL/L (98-107) Carbon Dioxide Level 28 MMOL/L (21-32) Anion Gap 7 mmol/L (5-15) Blood Urea Nitrogen 23 mg/dL (7-18) H Creatinine 1.1 MG/DL (0.55-1.30) Estimat Glomerular Filtration Rate > 60 mL/min (>60) Glucose Level 106 MG/DL (74-106) Calcium Level 9.2 MG/DL (8.5-10.1) Intake and Output 07/29/19 07/30/19 19:00 07:00 Intake Total 1020 ml 1055.000 ml Output Total 600 ml Balance 420 ml 1055.000 ml Free Water 180 ml 130 ml IV Total 275.000 ml Tube Feeding 780 ml 650 ml Other 60 ml Output Urine Total 600 ml # Bowel Movements 1 Objective PHYSICAL EXAMINATION: GENERAL: The patient is a well-developed, well-nourished, thin-appearing male, who is in moderate respiratory distress. HEENT: Eyes, pupils are equal and responsive to light and accommodation. Extraocular movements are intact. NECK: Supple without lymphadenopathy. CHEST: Venturi mask; Lungs with bilateral wheezes and rhonchi; breath sounds decreased at bases CARDIOVASCULAR: Regular rhythm and rate. S1 and S2 are normal without murmurs, rubs, or gallops. ABDOMEN: Soft, nontender, and nondistended. Positive bowel sounds. No evidence of hepatosplenomegaly. Currently, no rebound or guarding noted. EXTREMITIES: Negative for clubbing, cyanosis, or edema. RECTAL/GENITAL: Not performed. NEUROLOGIC: Cranial nerves II through XII are grossly intact without focal deficits. Motor strength is 5/5 bilaterally. Deep tendon reflexes are 2+ plantar. Assessment/Plan Assessment/Plan ASSESSMENT: This is an 84-year-old male. 1. Bilateral pneumonia. 2. Respiratory failure. 3. Probable sepsis. 4. Altered mental status. 5. Diabetes type 2. 6. Hypothyroidism. 7. Cerebrovascular disease. 8. Acute renal failure. 9. Leukocytosis 10. Hypernatremia 11. Right pleural effusion TREATMENT: 1. Respiratory failure/bilateral pneumonia. A Pulmonary consultation has been obtained with Dr. Vania Hui. The patient is currently admitted to the intensive care unit. The patient is currently on a venturi mask. The patient has been started empirically on vancomycin and ertapenem. A sputum culture =MRSA. ABX=vanco per ID=Dr Roach 2. Altered mental status. This is probably secondary to hypoxia secondary to pneumonia as above. 3. Diabetes type 2. The patient was admitted without antihyperglycemic medication. 4. Hypothyroidism. Continue Levoxyl as above. 5. Cerebrovascular disease. The patient is status post cerebrovascular accident. 6. Acute renal failure. This may be secondary to acute dehydration. The patient is currently receiving intravenous fluids. 7. Severe Sepsis. ABX=vanco . ID=Dr Matias 8. S/P right thoracentesis 07/26/19 Xander Bah MD Jul 30, 2019 15:34
[2019-07-30 16:00] VITALS: BP 111/55
[2019-07-30] MEDS ORDERED: Tubing IV Secondary IV ONE (16:29)
[2019-07-30] MEDS ORDERED: NS 275ml ONE (16:29)
--- NOTE | 2019-07-30 17:06 | Cardiology Progress Note ---
Assessment/Plan Assessment/Plan 1. Toxic metabolic encephalopathy. 2. Pneumonia. 3. Respiratory insufficiency. 4. Dementia. 5. Hypernatremia. 6. History of CVA. 7. History of hypertension. 8. History of diabetes mellitus. 9. History of hypothyroidism. tele reviewed sinus cxr reviewed on oxygen on pulm treatment extral iv lasix today Subjective Cardiovascular: Denies: chest pain Respiratory: Denies: shortness of breath Gastrointestinal/Abdominal: Denies: abdominal pain Genitourinary: Denies: burning Objective Last 24 Hour Vital Signs Date Time Temp Pulse Resp B/P (MAP) Pulse Ox O2 Delivery O2 Flow Rate FiO2 07/30/19 16:00 Venturi Mask 6.0 07/30/19 12:07 98.7 65 18 121/48 (72) 95 07/30/19 12:00 Venturi Mask 6.0 07/30/19 12:00 64 07/30/19 09:34 66 110/82 07/30/19 08:00 74 07/30/19 08:00 Venturi Mask 4.0 07/30/19 08:00 98.0 66 19 110/68 (82) 97 07/30/19 07:58 95 Venturi Mask 6.0 35 07/30/19 07:57 73 21 95 Venturi Mask 6.0 35 07/30/19 04:00 4.0 30 07/30/19 04:00 98.2 75 20 110/58 (75) 98 07/30/19 04:00 Venturi Mask 4.0 07/30/19 03:38 64 07/30/19 00:00 64 07/30/19 00:00 97.9 67 20 146/60 (88) 97 07/30/19 00:00 Venturi Mask 4.0 07/29/19 20:07 70 07/29/19 20:00 97.8 95 21 137/60 (85) 100 07/29/19 20:00 4.0 30 07/29/19 20:00 Venturi Mask 4.0 07/29/19 19:22 100 Venturi Mask 4.0 30 07/29/19 19:21 72 18 100 Venturi Mask 4.0 30 General Appearance: alert Cardiovascular: normal rate Respiratory/Chest: rhonchi - left Abdomen: normal bowel sounds, non tender, soft Extremities: no swelling Intake and Output 07/29/19 07/30/19 19:00 07:00 Intake Total 1020 ml 1055.000 ml Output Total 600 ml Balance 420 ml 1055.000 ml Free Water 180 ml 130 ml IV Total 275.000 ml Tube Feeding 780 ml 650 ml Other 60 ml Output Urine Total 600 ml # Bowel Movements 1 Laboratory Tests Test 07/30/19 04:32 White Blood Count 9.0 K/UL (4.8-10.8) Red Blood Count 3.36 M/UL (4.70-6.10) L Hemoglobin 8.6 G/DL (14.2-18.0) L Hematocrit 26.6 % (42.0-52.0) L Mean Corpuscular Volume 79 FL (80-99) L Mean Corpuscular Hemoglobin 25.6 PG (27.0-31.0) L Mean Corpuscular Hemoglobin Concent 32.4 G/DL (32.0-36.0) Red Cell Distribution Width 17.9 % (11.6-14.8) H Platelet Count 438 K/UL (150-450) Mean Platelet Volume 5.6 FL (6.5-10.1) L Neutrophils (%) (Auto) 71.8 % (45.0-75.0) Lymphocytes (%) (Auto) 14.6 % (20.0-45.0) L Monocytes (%) (Auto) 7.4 % (1.0-10.0) Eosinophils (%) (Auto) 5.6 % (0.0-3.0) H Basophils (%) (Auto) 0.6 % (0.0-2.0) Sodium Level 138 MMOL/L (136-145) Potassium Level 4.6 MMOL/L (3.5-5.1) Chloride Level 103 MMOL/L (98-107) Carbon Dioxide Level 28 MMOL/L (21-32) Anion Gap 7 mmol/L (5-15) Blood Urea Nitrogen 23 mg/dL (7-18) H Creatinine 1.1 MG/DL (0.55-1.30) Estimat Glomerular Filtration Rate > 60 mL/min (>60) Glucose Level 106 MG/DL (74-106) Calcium Level 9.2 MG/DL (8.5-10.1) Juarez Fletcher MD Jul 30, 2019 17:05
[2019-07-30] MEDS: Vancomycin 1.25gm/NS Premix q24h IVPB SCH (17:41)
--- NOTE | 2019-07-30 18:00 | NUR ---
NURSE NOTES: Pt restless pulled out Heplock to RH ,pt able to reach out other arm,restraint got loose.will try to restart IV ,but pt is a hard stick.
--- NOTE | 2019-07-30 19:35 | NUR ---
HAND-OFF: Report given to Katie Larkin RN,endorsed that pt has no IV access.
--- NOTE | 2019-07-30 19:40 | NUR ---
NURSE NOTES: Report received from Ashley Castro RN. Observed pt lying in the bed. SR on panel monitor. ON venturi, 6L, 35%. NGT R Nares, intact, running Glucerna 1.2 at 65cc/hr, no residual noted. No IV access at this time, DCed per pt at previous shift. Condom cath placed. Bed in the lowest position. Side rails up x3. Will continue to monitor.
[2019-07-30 20:00] VITALS: BP 109/43
--- NOTE | 2019-07-30 20:30 | NUR ---
NURSE NOTES: New iv on L FA 22G, TKO. Bed bath given. Large bowel movement noted, brown, formed. Will continue to monitor.
[2019-07-31] VITALS: BP 131/53
[2019-07-31 04:00] VITALS: BP 125/44
[2019-07-31 06:08] LABS: BASOPHILS % (AUTO) 1.1 % (0.0-2.0); EOSINOPHILS % (AUTO) 6.7 % (0.0-3.0); HEMATOCRIT 27.1 % (42.0-52.0); HEMOGLOBIN 8.7 G/DL (14.2-18.0); LYMPHOCYTES % (AUTO) 19.2 % (20.0-45.0); MEAN CORPUSCULAR VOLUME 79 FL (80-99); MONOCYTES % (AUTO) 12.4 % (1.0-10.0); NEUTROPHILS % (AUTO) 60.7 % (45.0-75.0); PLATELET COUNT 489 K/UL (150-450); RED BLOOD COUNT 3.42 M/UL (4.70-6.10); RED CELL DISTRIBUTION WIDTH 17.5 % (11.6-14.8); WHITE BLOOD COUNT 9.4 K/UL (4.8-10.8)
[2019-07-31 06:45] LABS: ANION GAP 7 mmol/L (5-15); BLOOD UREA NITROGEN 28 mg/dL (7-18); CALCIUM 9.3 MG/DL (8.5-10.1); CARBON DIOXIDE 29 MMOL/L (21-32); CHLORIDE 101 MMOL/L (98-107); CREATININE 1.3 MG/DL (0.55-1.30); POTASSIUM 4.5 MMOL/L (3.5-5.1); SODIUM 137 MMOL/L (136-145)
--- NOTE | 2019-07-31 07:24 | NUR ---
HAND-OFF: Report given to Ashley Castro RN. No distress noted at this time.
--- NOTE | 2019-07-31 07:40 | NUR ---
NURSE NOTES: Report received from Katie Larkin RN.Pt asleep noted no resp distress on 4L Venti Mask,with bilat soft wrist restraints in placed,no signs of agitation presented, NGT to RT nare in placed per auscultation,no residual noted,condom cath draining yellow urine,SR upx2 HOB elevated bed lock in lowest position,will continue with plans of care.
[2019-07-31 08:00] VITALS: BP 130/52
--- NOTE | 2019-07-31 10:48 | Pulmonology Progress Note ---
Assessment/Plan Assessment/Plan ASSESSMENT Sepsis Acute respiratory failure, requiring NRM, now on VM Bilateral pneumonia R pleural effusion s/p thoracentesis 07/26 Acute metabolic encephalopathy UTI Diabetes mellitus type 2 Acute renal failure Cerebrovascular disease Hypothyroidism Hypernatremia Severe anemia Alzheimer dementia Anemia of iron deficiency PLAN OF CARE [place] O2 titrate to keep pulse ox above 92%, currently on Venturi mask , off NRM RT to try weaning to O2 via NC CXR 07/25 increasing R pleural effusion s/p tap 07/26-> 750 ml of pleural fluid, pleural fluid CX NGTD, cytology pending pulmonary toilet aspiration precautions TF via NGT CXR 07/29 Increasing interstitial and airspace edema, increasing right pleural fluid, over 3 days fup with CXR on Thursday, may need another tap abx as per ID SCX + Staph, Abi , UCX + Proteus , Strep viridans , BCX NGTD , repeated UCX negative swallow evaluation noted, monitor H&H with goal to keep hemoglobin above 7 stool OB negative CEA WNL anemia c/w AID, on venofer folic acid supplement DVT GI prophylaxis gentle IV hydration monitor renal parameters, lites ,correct electrolytes as needed, avoid nephrotoxic bowel regimen elevated TSH ; dose of Synthroid increased, repeat TFT in 1 month transfer to tele case discussed and evaluated by supervising physician Subjective Allergies: Coded Allergies: PENICILLINS (Verified Allergy, Unknown, 10/27/18) tolretas cephalosporins Subjective On O2 via 35% VM, pulse ox stable , unable to wean down so far afebrile, no leukocytosis s/p tap 07/26 Objective Last 24 Hour Vital Signs Date Time Temp Pulse Resp B/P (MAP) Pulse Ox O2 Delivery O2 Flow Rate FiO2 07/31/19 09:46 62 130/52 07/31/19 08:00 97.8 62 23 130/52 (78) 100 07/31/19 07:54 65 18 100 Venturi Mask 6.0 35 07/31/19 07:54 100 Venturi Mask 6.0 35 07/31/19 04:00 Venturi Mask 6.0 07/31/19 04:00 62 07/31/19 04:00 98.7 65 20 125/44 (71) 99 07/31/19 00:00 97.9 66 20 131/53 (79) 98 07/31/19 00:00 60 07/31/19 00:00 Venturi Mask 6.0 07/30/19 20:33 75 20 98 Venturi Mask 6.0 35 07/30/19 20:33 98 Venturi Mask 6.0 35 07/30/19 20:00 98.2 63 20 109/43 (65) 99 07/30/19 20:00 62 07/30/19 20:00 Venturi Mask 6.0 07/30/19 16:00 Venturi Mask 6.0 07/30/19 16:00 64 07/30/19 16:00 98.9 59 18 111/55 (73) 98 07/30/19 12:07 98.7 65 18 121/48 (72) 95 07/30/19 12:00 Venturi Mask 6.0 07/30/19 12:00 64 Intake and Output 07/30/19 07/31/19 19:00 07:00 Intake Total 1000 ml 675 ml Output Total 700 ml 300 ml Balance 300 ml 375 ml Free Water 100 ml 90 ml Tube Feeding 780 ml 585 ml Other 120 ml Output Urine Total 700 ml 300 ml # Voids 1 # Bowel Movements 3 Objective HEENT: normocephalic, atraumatic, anicteric, on VM with 35% FiO2, NGT with TF Respiratory/Chest: decreased breath sounds Cardiovascular: normal rate Abdomen: soft, non tender Extremities: no edema Neurologic/Psychiatric: abnormal gait Musculoskeletal: atrophy Laboratory Tests 07/31/19 04:50: White Blood Count 9.4, Red Blood Count 3.42L, Hemoglobin 8.7L, Hematocrit 27.1L , Mean Corpuscular Volume 79L, Mean Corpuscular Hemoglobin 25.4L, Mean Corpuscular Hemoglobin Concent 32.1, Red Cell Distribution Width 17.5H, Platelet Count 489H, Mean Platelet Volume 5.6L, Neutrophils (%) (Auto) 60.7, Lymphocytes (%) (Auto) 19.2L, Monocytes (%) (Auto) 12.4H, Eosinophils (%) (Auto ) 6.7H, Basophils (%) (Auto) 1.1, Sodium Level 137, Potassium Level 4.5, Chloride Level 101, Carbon Dioxide Level 29, Anion Gap 7, Blood Urea Nitrogen 28H, Creatinine 1.3, Estimat Glomerular Filtration Rate > 60, Glucose Level 110H , Calcium Level 9.3 Current Medications Medications (Trade) Dose Ordered Sig/Kike Route PRN Reason Start Time Stop Time Status Last Admin Dose Admin Acetaminophen (Tylenol) 650 mg Q4H PRN ORAL fever 07/21/19 05:30 08/17/19 05:29 Albuterol/ Ipratropium (Albuterol/ Ipratropium) 3 ml Q4HRT PRN HHN sob 07/30/19 11:45 08/04/19 11:44 Amlodipine Besylate (Norvasc) 2.5 mg DAILY NG 07/24/19 09:00 08/23/19 08:59 07/31/19 09:46 Folic Acid (Folate) 2 mg DAILY ORAL 07/21/19 09:00 08/19/19 11:29 07/31/19 10:29 Furosemide (Lasix) 20 mg DAILY IV 07/30/19 09:00 08/29/19 08:59 07/31/19 09:46 Lansoprazole (Prevacid) 30 mg BID NG 07/23/19 18:00 08/22/19 17:59 07/31/19 09:46 Levothyroxine Sodium (Synthroid) 50 mcg DAILY@0630 ORAL 07/21/19 06:30 08/18/19 06:29 07/31/19 05:42 Ondansetron HCl (Zofran) 4 mg Q6H PRN IVP Nausea & Vomiting 07/21/19 08:15 08/17/19 14:14 Polyethylene Glycol (Miralax) 17 gm DAILYPRN PRN ORAL Constipation 07/21/19 05:30 08/17/19 05:29 Quetiapine Fumarate (SEROqueL) 25 mg Q8H PRN ORAL agitation 07/21/19 05:30 08/17/19 05:29 07/29/19 09:21 Vancomycin HCl (Vanco rx to dose) 1 ea DAILY PRN MISC Per rx protocol 07/21/19 09:00 07/31/19 23:59 Vancomycin/Sodium Chloride 275 ml @ 183.333 mls/hr Q24H IVPB 07/28/19 18:00 07/31/19 23:59 07/30/19 17:41 Miranda Pimentel REAL ESTATE INVESTMENT ANALYST Jul 31, 2019 10:47
[2019-07-31 12:00] VITALS: BP 124/50
--- NOTE | 2019-07-31 12:02 | Nephrology Progress Note ---
Assessment/Plan Problem List: (1) Acute renal failure (2) Severe anemia (3) Sepsis (4) Diabetes mellitus (5) Hypothyroidism Assessment Alexi Cr lowering 2.6 to 1.8 Sepsis / Pneumonia / UTI / Hypothermia Respiratory failure HypoThyroidism h/o CVA Anemia Dementia Plan DC Hydrate IV iron Phos supplement as needed antibiotics avoid nephrotoxics monitor renal parameters check TFTs- adjust synthroid dose Urine eos per orders Subjective ROS Limited/Unobtainable: No Objective Objective Last 24 Hour Vital Signs Date Time Temp Pulse Resp B/P (MAP) Pulse Ox O2 Delivery O2 Flow Rate FiO2 07/31/19 09:46 62 130/52 07/31/19 08:00 Venturi Mask 6.0 07/31/19 08:00 97.8 62 23 130/52 (78) 100 07/31/19 08:00 66 07/31/19 07:54 65 18 100 Venturi Mask 6.0 35 07/31/19 07:54 100 Venturi Mask 6.0 35 07/31/19 04:00 Venturi Mask 6.0 07/31/19 04:00 62 07/31/19 04:00 98.7 65 20 125/44 (71) 99 07/31/19 00:00 97.9 66 20 131/53 (79) 98 07/31/19 00:00 60 07/31/19 00:00 Venturi Mask 6.0 07/30/19 20:33 75 20 98 Venturi Mask 6.0 35 07/30/19 20:33 98 Venturi Mask 6.0 35 07/30/19 20:00 98.2 63 20 109/43 (65) 99 07/30/19 20:00 62 07/30/19 20:00 Venturi Mask 6.0 07/30/19 16:00 Venturi Mask 6.0 07/30/19 16:00 64 07/30/19 16:00 98.9 59 18 111/55 (73) 98 07/30/19 12:07 98.7 65 18 121/48 (72) 95 Intake and Output 07/30/19 07/31/19 19:00 07:00 Intake Total 1000 ml 675 ml Output Total 700 ml 300 ml Balance 300 ml 375 ml Free Water 100 ml 90 ml Tube Feeding 780 ml 585 ml Other 120 ml Output Urine Total 700 ml 300 ml # Voids 1 # Bowel Movements 3 Laboratory Tests 07/31/19 04:50: White Blood Count 9.4, Red Blood Count 3.42L, Hemoglobin 8.7L, Hematocrit 27.1L , Mean Corpuscular Volume 79L, Mean Corpuscular Hemoglobin 25.4L, Mean Corpuscular Hemoglobin Concent 32.1, Red Cell Distribution Width 17.5H, Platelet Count 489H, Mean Platelet Volume 5.6L, Neutrophils (%) (Auto) 60.7, Lymphocytes (%) (Auto) 19.2L, Monocytes (%) (Auto) 12.4H, Eosinophils (%) (Auto ) 6.7H, Basophils (%) (Auto) 1.1, Sodium Level 137, Potassium Level 4.5, Chloride Level 101, Carbon Dioxide Level 29, Anion Gap 7, Blood Urea Nitrogen 28H, Creatinine 1.3, Estimat Glomerular Filtration Rate > 60, Glucose Level 110H , Calcium Level 9.3, Magnesium Level 2.6H Height (Feet): 6 Height (Inches): 1.00 Weight (Pounds): 147 General Appearance: no apparent distress, lethargic Cardiovascular: normal rate Respiratory/Chest: decreased breath sounds Abdomen: soft Objective no change Clovis Benites MD Jul 31, 2019 12:02
--- NOTE | 2019-07-31 13:30 | NUR ---
NURSE NOTES: Pt restless and agitated,screaming,Seroquel 25 mg per NGT given,will continue to monitor pt.
--- NOTE | 2019-07-31 14:25 | Internal Med Progress Note ---
Subjective Date of Service: Jul 31, 2019 Physician Name Xander Bah Attending Physician Lamont Hayes MD Current Medications Medications (Trade) Dose Ordered Sig/Kike Route PRN Reason Start Time Stop Time Status Last Admin Dose Admin Acetaminophen (Tylenol) 650 mg Q4H PRN ORAL fever 07/21/19 05:30 08/17/19 05:29 Albuterol/ Ipratropium (Albuterol/ Ipratropium) 3 ml Q4HRT PRN HHN sob 07/30/19 11:45 08/04/19 11:44 Amlodipine Besylate (Norvasc) 2.5 mg DAILY NG 07/24/19 09:00 08/23/19 08:59 07/31/19 09:46 Folic Acid (Folate) 2 mg DAILY ORAL 07/21/19 09:00 08/19/19 11:29 07/31/19 10:29 Furosemide (Lasix) 20 mg DAILY IV 07/30/19 09:00 08/29/19 08:59 07/31/19 09:46 Lansoprazole (Prevacid) 30 mg BID NG 07/23/19 18:00 08/22/19 17:59 07/31/19 09:46 Levothyroxine Sodium (Synthroid) 50 mcg DAILY@0630 ORAL 07/21/19 06:30 08/18/19 06:29 07/31/19 05:42 Ondansetron HCl (Zofran) 4 mg Q6H PRN IVP Nausea & Vomiting 07/21/19 08:15 08/17/19 14:14 Polyethylene Glycol (Miralax) 17 gm DAILYPRN PRN ORAL Constipation 07/21/19 05:30 08/17/19 05:29 Quetiapine Fumarate (SEROqueL) 25 mg Q8H PRN ORAL agitation 07/21/19 05:30 08/17/19 05:29 07/31/19 13:38 Vancomycin HCl (Vanco rx to dose) 1 ea DAILY PRN MISC Per rx protocol 07/21/19 09:00 07/31/19 23:59 Vancomycin/Sodium Chloride 275 ml @ 183.333 mls/hr Q24H IVPB 07/28/19 18:00 07/31/19 23:59 07/30/19 17:41 Allergies: Coded Allergies: PENICILLINS (Verified Allergy, Unknown, 10/27/18) tolretas cephalosporins ROS Limited/Unobtainable: No Subjective 84 YO M admitted with altered mental status. Now pneumonia and severe sepsis. Cover for Int Med-Dr Hayes. [place] Objective Last Vital Signs Date Time Temp Pulse Resp B/P (MAP) Pulse Ox O2 Delivery O2 Flow Rate FiO2 07/31/19 12:00 97.7 82 27 124/50 (74) 100 07/31/19 08:00 Venturi Mask 6.0 07/31/19 07:54 35 Laboratory Tests Test 07/31/19 04:50 White Blood Count 9.4 K/UL (4.8-10.8) Red Blood Count 3.42 M/UL (4.70-6.10) L Hemoglobin 8.7 G/DL (14.2-18.0) L Hematocrit 27.1 % (42.0-52.0) L Mean Corpuscular Volume 79 FL (80-99) L Mean Corpuscular Hemoglobin 25.4 PG (27.0-31.0) L Mean Corpuscular Hemoglobin Concent 32.1 G/DL (32.0-36.0) Red Cell Distribution Width 17.5 % (11.6-14.8) H Platelet Count 489 K/UL (150-450) H Mean Platelet Volume 5.6 FL (6.5-10.1) L Neutrophils (%) (Auto) 60.7 % (45.0-75.0) Lymphocytes (%) (Auto) 19.2 % (20.0-45.0) L Monocytes (%) (Auto) 12.4 % (1.0-10.0) H Eosinophils (%) (Auto) 6.7 % (0.0-3.0) H Basophils (%) (Auto) 1.1 % (0.0-2.0) Sodium Level 137 MMOL/L (136-145) Potassium Level 4.5 MMOL/L (3.5-5.1) Chloride Level 101 MMOL/L (98-107) Carbon Dioxide Level 29 MMOL/L (21-32) Anion Gap 7 mmol/L (5-15) Blood Urea Nitrogen 28 mg/dL (7-18) H Creatinine 1.3 MG/DL (0.55-1.30) Estimat Glomerular Filtration Rate > 60 mL/min (>60) Glucose Level 110 MG/DL (74-106) H Calcium Level 9.3 MG/DL (8.5-10.1) Magnesium Level 2.6 MG/DL (1.8-2.4) H Intake and Output 07/30/19 07/31/19 19:00 07:00 Intake Total 1000 ml 675 ml Output Total 700 ml 300 ml Balance 300 ml 375 ml Free Water 100 ml 90 ml Tube Feeding 780 ml 585 ml Other 120 ml Output Urine Total 700 ml 300 ml # Voids 1 # Bowel Movements 3 Objective PHYSICAL EXAMINATION: GENERAL: The patient is a well-developed, well-nourished, thin-appearing male, who is in moderate respiratory distress. HEENT: Eyes, pupils are equal and responsive to light and accommodation. Extraocular movements are intact. NECK: Supple without lymphadenopathy. CHEST: Venturi mask; Lungs with bilateral wheezes and rhonchi; breath sounds decreased at bases CARDIOVASCULAR: Regular rhythm and rate. S1 and S2 are normal without murmurs, rubs, or gallops. ABDOMEN: Soft, nontender, and nondistended. Positive bowel sounds. No evidence of hepatosplenomegaly. Currently, no rebound or guarding noted. EXTREMITIES: Negative for clubbing, cyanosis, or edema. RECTAL/GENITAL: Not performed. NEUROLOGIC: Cranial nerves II through XII are grossly intact without focal deficits. Motor strength is 5/5 bilaterally. Deep tendon reflexes are 2+ plantar. Assessment/Plan Assessment/Plan ASSESSMENT: This is an 84-year-old male. 1. Bilateral pneumonia. 2. Respiratory failure. 3. Probable sepsis. 4. Altered mental status. 5. Diabetes type 2. 6. Hypothyroidism. 7. Cerebrovascular disease. 8. Acute renal failure. 9. Leukocytosis 10. Hypernatremia 11. Right pleural effusion TREATMENT: 1. Respiratory failure/bilateral pneumonia. A Pulmonary consultation has been obtained with Dr. Vania Hui. The patient is currently admitted to the intensive care unit. The patient is currently on a venturi mask. The patient has been started empirically on vancomycin and ertapenem. A sputum culture =MRSA. ABX=vanco per ID=Dr Roach 2. Altered mental status. This is probably secondary to hypoxia secondary to pneumonia as above. 3. Diabetes type 2. The patient was admitted without antihyperglycemic medication. 4. Hypothyroidism. Continue Levoxyl as above. 5. Cerebrovascular disease. The patient is status post cerebrovascular accident. 6. Acute renal failure. This may be secondary to acute dehydration. The patient is currently receiving intravenous fluids. 7. Severe Sepsis. ABX=vanco . ID=Dr Matias 8. S/P right thoracentesis 07/26/19 Xander Bah MD Jul 31, 2019 14:25
[2019-07-31 16:00] VITALS: BP 106/50
--- NOTE | 2019-07-31 17:00 | NUR ---
NURSE NOTES: Pt woke up,no further anxiety noted,family member at bedside,pt appears to recognize family member.
[2019-07-31] MEDS: Vancomycin 1.25gm/NS Premix q24h IVPB SCH (17:51)
--- NOTE | 2019-07-31 19:15 | NUR ---
HAND-OFF: Report given to Katie Larkin RN..
--- NOTE | 2019-07-31 19:38 | NUR ---
NURSE NOTES: Report received from Ashley Castro RN. Observed pt lying in the bed, sleeping, no signs of acute distress noted at this time. SB on cardiac cath lab technologist with HR of 56 noted. On 4L venturi, no sob noted. NGT on R nares, intact and running Glucerna 1.2 at 65cc/hr, no residual noted, flushing well. Condom cath in placed. IV on L FA 22G, TKO, asymptomatic. Bed in the lowest position. Side rails up x3. Will continue to monitor.
[2019-07-31 20:00] VITALS: BP 117/48
[2019-08-01] VITALS: BP 131/50
--- NOTE | 2019-08-01 02:58 | NUR ---
NURSE NOTES: No acute distress noted at this time. SB on gift packer with HR of 58 noted. pt sleeping in the bed. on 4L venturi, sat at 99%. NGT intact, no residual noted, Reposition done q 2hr. Reposition done q 2hr. Will continue to monitor.
[2019-08-01 04:00] VITALS: BP 126/52
[2019-08-01 06:12] LABS: BASOPHILS % (AUTO) 1.3 % (0.0-2.0); EOSINOPHILS % (AUTO) 6.4 % (0.0-3.0); HEMOGLOBIN 8.7 G/DL (14.2-18.0); LYMPHOCYTES % (AUTO) 21.2 % (20.0-45.0); MEAN CORPUSCULAR VOLUME 79 FL (80-99); MONOCYTES % (AUTO) 8.6 % (1.0-10.0); NEUTROPHILS % (AUTO) 62.5 % (45.0-75.0); PLATELET COUNT 481 K/UL (150-450); RED BLOOD COUNT 3.44 M/UL (4.70-6.10); RED CELL DISTRIBUTION WIDTH 16.8 % (11.6-14.8); WHITE BLOOD COUNT 7.2 K/UL (4.8-10.8)
[2019-08-01 06:33] LABS: ANION GAP 6 mmol/L (5-15); BLOOD UREA NITROGEN 35 mg/dL (7-18); CALCIUM 8.6 MG/DL (8.5-10.1); CARBON DIOXIDE 28 MMOL/L (21-32); CHLORIDE 102 MMOL/L (98-107); CREATININE 1.5 MG/DL (0.55-1.30); POTASSIUM 4.9 MMOL/L (3.5-5.1); SODIUM 136 MMOL/L (136-145)
--- NOTE | 2019-08-01 07:10 | NUR ---
NURSE NOTES: received patient report form latasha rn. patient is on bed asleep. not in acute distress. on restraints. ngt running ta prescribed rate. tolerating well. no arrythmias last night. will follow plan of care.
--- NOTE | 2019-08-01 07:33 | NUR ---
HAND-OFF: Report given to KAI Vazquez. No acute distress noted at this time
[2019-08-01 08:00] VITALS: BP 122/48
--- NOTE | 2019-08-01 09:57 | NUR ---
RADIOLOGY DEPT., CHEST X-RAY DONE.-P.DYE
--- NOTE | 2019-08-01 10:10 | Nephrology Progress Note ---
Assessment/Plan Problem List: (1) Acute renal failure (2) Severe anemia (3) Sepsis (4) Diabetes mellitus (5) Hypothyroidism Assessment Alexi Cr lowering 2.6 to 1.8 Sepsis / Pneumonia / UTI / Hypothermia Respiratory failure HypoThyroidism h/o CVA Anemia Dementia Plan DC Hydrate IV iron Phos supplement as needed antibiotics avoid nephrotoxics monitor renal parameters check TFTs- adjust synthroid dose Urine eos per orders Subjective ROS Limited/Unobtainable: No Objective Objective Last 24 Hour Vital Signs Date Time Temp Pulse Resp B/P (MAP) Pulse Ox O2 Delivery O2 Flow Rate FiO2 08/01/19 09:00 Venturi Mask 6.0 08/01/19 08:36 59 126/52 08/01/19 08:00 98.8 64 23 122/48 (72) 100 08/01/19 04:00 59 08/01/19 04:00 98.8 61 20 126/52 (76) 100 08/01/19 00:00 98.0 72 20 131/50 (77) 100 08/01/19 00:00 60 07/31/19 21:00 Venturi Mask 6.0 07/31/19 20:00 97.8 61 20 117/48 (71) 100 07/31/19 20:00 56 07/31/19 18:58 100 Venturi Mask 6.0 35 07/31/19 18:58 66 20 100 Venturi Mask 6.0 35 07/31/19 16:00 64 07/31/19 16:00 98.0 61 23 106/50 (68) 100 07/31/19 12:00 97.7 82 27 124/50 (74) 100 07/31/19 12:00 62 Intake and Output 07/31/19 08/01/19 19:00 07:00 Intake Total 1095 ml 865 ml Output Total 400 ml 550 ml Balance 695 ml 315 ml Free Water 200 ml 150 ml Tube Feeding 715 ml 715 ml Other 180 ml Output Urine Total 400 ml 550 ml # Bowel Movements 1 Laboratory Tests 08/01/19 04:30: White Blood Count 7.2, Red Blood Count 3.44L, Hemoglobin 8.7L, Hematocrit 27.0L , Mean Corpuscular Volume 79L, Mean Corpuscular Hemoglobin 25.4L, Mean Corpuscular Hemoglobin Concent 32.3, Red Cell Distribution Width 16.8H, Platelet Count 481H, Mean Platelet Volume 5.4L, Neutrophils (%) (Auto) 62.5, Lymphocytes (%) (Auto) 21.2, Monocytes (%) (Auto) 8.6, Eosinophils (%) (Auto) 6.4H, Basophils (%) (Auto) 1.3, Sodium Level 136, Potassium Level 4.9, Chloride Level 102, Carbon Dioxide Level 28, Anion Gap 6, Blood Urea Nitrogen 35H, Creatinine 1.5H, Estimat Glomerular Filtration Rate 53.8, Glucose Level 114H, Calcium Level 8.6 Height (Feet): 6 Height (Inches): 1.00 Weight (Pounds): 148 General Appearance: no apparent distress Objective no change Clovis Benites MD Aug 01, 2019 10:10
[2019-08-01 11:15] LABS: ALANINE AMINOTRANSFERASE 21 U/L (12-78); ALBUMIN 1.8 G/DL (3.4-5.0); ALKALINE PHOSPHATASE 106 U/L (46-116); ASPARTATE AMINO TRANSFERASE 33 U/L (15-37); BILIRUBIN,TOTAL 0.1 MG/DL (0.2-1.0); PHOSPHORUS 4.6 MG/DL (2.5-4.9)
--- NOTE | 2019-08-01 11:25 | Infectious Diseases Prog Note ---
Assessment/Plan Assessment/Plan Assessment: Severe sepsis Pneumonia, Sp Rx Probable UTI, SP Rx -07/25 CXR: Markedly increased right basilar opacity, likely increasing pleural fluid -07/22 CXR: Worsening CHF -u/a wbc 15-20, nit neg, leuk +3; ucx <10k Proteus sp (R Amp, ancef, macrobid ; otherwise), 70-80K S. viridans -07/19 CXR: marked worsening of pleural and parenchymal disease at the right lung base.There is also increasing parenchymal consolidation and atelectasis in the left infrahilar region. -CXR: Perihilar and basilar infiltrates. Findings suspicious for pneumonia. -influenza sc neg -Bcx NTD -sp cx MRSA, C. albicans -legionella ag urine neg R pleural effusion -07/26 SP thoracentesis: Successful ultrasound-guided thoracentesis, yielding 780 milliliters of fluid --Cx NTD -07/26 CXR: Improved right pleural effusion, post thoracentesis. No radiographically evident complication Hypothermia, SP Leukocytosis, SP Acute respiratory failure, sp NRB mask/VEnturi mask Lactic acidosis, SP RAMAN, SP Dm2 HTN non verbal hypothyroidism CVA hx of UTI anemia dementia [facility] resident Plan: monitor pt off of AB RX - 07/31 Sp IV Vancomycin #14/ for MRSA PNA -07/26 SP Cefepime #5 -07/22 SP Barbara #4 -07/19 SP Ertapenem #2 -07/18 SP IV Amikacin x1, Levaquin x1 -f/u cx -Monitor CBC/CMP, temperatures -aspiration precautions Thank you for this consultation. Will continue to follow along with you. Subjective Allergies: Coded Allergies: PENICILLINS (Verified Allergy, Unknown, 10/27/18) tolretas cephalosporins Subjective afebrile Objective Vital Signs Last 24 Hour Vital Signs Date Time Temp Pulse Resp B/P (MAP) Pulse Ox O2 Delivery O2 Flow Rate FiO2 08/01/19 09:00 Venturi Mask 6.0 08/01/19 08:36 59 126/52 08/01/19 08:00 98.8 64 23 122/48 (72) 100 08/01/19 07:46 62 08/01/19 04:00 59 08/01/19 04:00 98.8 61 20 126/52 (76) 100 08/01/19 00:00 98.0 72 20 131/50 (77) 100 08/01/19 00:00 60 07/31/19 21:00 Venturi Mask 6.0 07/31/19 20:00 97.8 61 20 117/48 (71) 100 07/31/19 20:00 56 07/31/19 18:58 100 Venturi Mask 6.0 35 07/31/19 18:58 66 20 100 Venturi Mask 6.0 35 07/31/19 16:00 64 07/31/19 16:00 98.0 61 23 106/50 (68) 100 07/31/19 12:00 97.7 82 27 124/50 (74) 100 07/31/19 12:00 62 Height (Feet): 6 Height (Inches): 1.00 Weight (Pounds): 148 Respiratory/Chest: no respiratory distress Cardiovascular: regular rhythm Abdomen: no organomegaly Laboratory Tests Test 08/01/19 04:30 White Blood Count 7.2 K/UL (4.8-10.8) Red Blood Count 3.44 M/UL (4.70-6.10) L Hemoglobin 8.7 G/DL (14.2-18.0) L Hematocrit 27.0 % (42.0-52.0) L Mean Corpuscular Volume 79 FL (80-99) L Mean Corpuscular Hemoglobin 25.4 PG (27.0-31.0) L Mean Corpuscular Hemoglobin Concent 32.3 G/DL (32.0-36.0) Red Cell Distribution Width 16.8 % (11.6-14.8) H Platelet Count 481 K/UL (150-450) H Mean Platelet Volume 5.4 FL (6.5-10.1) L Neutrophils (%) (Auto) 62.5 % (45.0-75.0) Lymphocytes (%) (Auto) 21.2 % (20.0-45.0) Monocytes (%) (Auto) 8.6 % (1.0-10.0) Eosinophils (%) (Auto) 6.4 % (0.0-3.0) H Basophils (%) (Auto) 1.3 % (0.0-2.0) Sodium Level 136 MMOL/L (136-145) Potassium Level 4.9 MMOL/L (3.5-5.1) Chloride Level 102 MMOL/L (98-107) Carbon Dioxide Level 28 MMOL/L (21-32) Anion Gap 6 mmol/L (5-15) Blood Urea Nitrogen 35 mg/dL (7-18) H Creatinine 1.5 MG/DL (0.55-1.30) H Estimat Glomerular Filtration Rate 53.8 mL/min (>60) Glucose Level 114 MG/DL (74-106) H Calcium Level 8.6 MG/DL (8.5-10.1) Phosphorus Level Pending Magnesium Level Pending Total Bilirubin Pending Direct Bilirubin Pending Aspartate Amino Transf (AST/SGOT) Pending Alanine Aminotransferase (ALT/SGPT) Pending Alkaline Phosphatase Pending Total Protein Pending Albumin Pending Current Medications Medications (Trade) Dose Ordered Sig/Kike Route PRN Reason Start Time Stop Time Status Last Admin Dose Admin Acetaminophen (Tylenol) 650 mg Q4H PRN ORAL fever 07/21/19 05:30 08/17/19 05:29 Albuterol/ Ipratropium (Albuterol/ Ipratropium) 3 ml Q4HRT PRN HHN sob 07/30/19 11:45 08/04/19 11:44 Amlodipine Besylate (Norvasc) 2.5 mg DAILY NG 07/24/19 09:00 08/23/19 08:59 08/01/19 08:36 Folic Acid (Folate) 2 mg DAILY ORAL 07/21/19 09:00 08/19/19 11:29 08/01/19 08:43 Furosemide (Lasix) 20 mg DAILY IV 07/30/19 09:00 08/29/19 08:59 08/01/19 08:43 Lansoprazole (Prevacid) 30 mg BID NG 07/23/19 18:00 08/22/19 17:59 08/01/19 08:36 Levothyroxine Sodium (Synthroid) 50 mcg DAILY@0630 ORAL 07/21/19 06:30 08/18/19 06:29 08/01/19 06:05 Ondansetron HCl (Zofran) 4 mg Q6H PRN IVP Nausea & Vomiting 07/21/19 08:15 08/17/19 14:14 Polyethylene Glycol (Miralax) 17 gm DAILYPRN PRN ORAL Constipation 2/13/20 05:30 08/17/19 05:29 Quetiapine Fumarate (SEROqueL) 25 mg Q8H PRN ORAL agitation 07/21/19 05:30 08/17/19 05:29 07/31/19 13:38 Alexander Lock MD Aug 01, 2019 11:25
[2019-08-01 11:26] LABS: BILIRUBIN,DIRECT < 0.1 MG/DL (0.0-0.3)
--- NOTE | 2019-08-01 11:49 | Pulmonology Progress Note ---
Assessment/Plan Problems: (1) Pulmonary edema (2) Nosocomial pneumonia (3) Pleural effusion Assessment & Plan: thoracentesis done, 780 cc removed (4) Sepsis Assessment & Plan: afebrile, wbc wnl (5) Atrial fibrillation (6) Acute renal failure (7) Acute metabolic encephalopathy (8) Severe anemia (9) Alzheimer's dementia (10) History of CVA (cerebrovascular accident) (11) Diabetes mellitus (12) Hypothyroidism Assessment/Plan on nasal cannula no new complains, improving more awake failed the swallow study previously, video swallow showed silent aspiration. non-oral feeding. family meeting to decide about plan of care repeat cxr, on Lasix 20 qd, pt is 12 liters positive in fluid balance respiratory treatment NG tube in, tolerating well sliding scale f/u renal function Venofer for iron deficiency DVT prophylaxis. Subjective ROS Limited/Unobtainable: No Constitutional: Reports: no symptoms HEENT: Repors: no symptoms Allergies: Coded Allergies: PENICILLINS (Verified Allergy, Unknown, 10/27/18) tolretas cephalosporins Objective Last 24 Hour Vital Signs Date Time Temp Pulse Resp B/P (MAP) Pulse Ox O2 Delivery O2 Flow Rate FiO2 08/01/19 09:00 Venturi Mask 6.0 08/01/19 08:36 59 126/52 08/01/19 08:00 98.8 64 23 122/48 (72) 100 08/01/19 07:46 62 08/01/19 04:00 59 08/01/19 04:00 98.8 61 20 126/52 (76) 100 08/01/19 00:00 98.0 72 20 131/50 (77) 100 08/01/19 00:00 60 07/31/19 21:00 Venturi Mask 6.0 07/31/19 20:00 97.8 61 20 117/48 (71) 100 07/31/19 20:00 56 07/31/19 18:58 100 Venturi Mask 6.0 35 07/31/19 18:58 66 20 100 Venturi Mask 6.0 35 07/31/19 16:00 64 07/31/19 16:00 98.0 61 23 106/50 (68) 100 07/31/19 12:00 97.7 82 27 124/50 (74) 100 07/31/19 12:00 62 Intake and Output 07/31/19 08/01/19 18:59 06:59 Intake Total 1095 ml 930 ml Output Total 400 ml 550 ml Balance 695 ml 380 ml Free Water 200 ml 150 ml Tube Feeding 715 ml 780 ml Other 180 ml Output Urine Total 400 ml 550 ml # Bowel Movements 1 General Appearance: cachetic HEENT: normocephalic, atraumatic Respiratory/Chest: chest wall non-tender, lungs clear Cardiovascular: normal peripheral pulses, normal rate Abdomen: normal bowel sounds, no organomegaly, no scars Genitourinary: normal external genitalia Skin: no rash Laboratory Tests 08/01/19 04:30: White Blood Count 7.2, Red Blood Count 3.44L, Hemoglobin 8.7L, Hematocrit 27.0L , Mean Corpuscular Volume 79L, Mean Corpuscular Hemoglobin 25.4L, Mean Corpuscular Hemoglobin Concent 32.3, Red Cell Distribution Width 16.8H, Platelet Count 481H, Mean Platelet Volume 5.4L, Neutrophils (%) (Auto) 62.5, Lymphocytes (%) (Auto) 21.2, Monocytes (%) (Auto) 8.6, Eosinophils (%) (Auto) 6.4H, Basophils (%) (Auto) 1.3, Sodium Level 136, Potassium Level 4.9, Chloride Level 102, Carbon Dioxide Level 28, Anion Gap 6, Blood Urea Nitrogen 35H, Creatinine 1.5H, Estimat Glomerular Filtration Rate 53.8, Glucose Level 114H, Calcium Level 8.6, Phosphorus Level 4.6, Magnesium Level 2.5H, Total Bilirubin 0.1L, Direct Bilirubin < 0.1, Aspartate Amino Transf (AST/SGOT) 33, Alanine Aminotransferase (ALT/SGPT) 21, Alkaline Phosphatase 106, Total Protein 7.0, Albumin 1.8L Current Medications Medications (Trade) Dose Ordered Sig/Kike Route PRN Reason Start Time Stop Time Status Last Admin Dose Admin Acetaminophen (Tylenol) 650 mg Q4H PRN ORAL fever 07/21/19 05:30 08/17/19 05:29 Albuterol/ Ipratropium (Albuterol/ Ipratropium) 3 ml Q4HRT PRN HHN sob 07/30/19 11:45 08/04/19 11:44 Amlodipine Besylate (Norvasc) 2.5 mg DAILY NG 07/24/19 09:00 08/23/19 08:59 08/01/19 08:36 Folic Acid (Folate) 2 mg DAILY ORAL 07/21/19 09:00 08/19/19 11:29 08/01/19 08:43 Furosemide (Lasix) 20 mg DAILY IV 07/30/19 09:00 08/29/19 08:59 08/01/19 08:43 Lansoprazole (Prevacid) 30 mg BID NG 07/23/19 18:00 08/22/19 17:59 08/01/19 08:36 Levothyroxine Sodium (Synthroid) 50 mcg DAILY@0630 ORAL 07/21/19 06:30 08/18/19 06:29 08/01/19 06:05 Ondansetron HCl (Zofran) 4 mg Q6H PRN IVP Nausea & Vomiting 07/21/19 08:15 08/17/19 14:14 Polyethylene Glycol (Miralax) 17 gm DAILYPRN PRN ORAL Constipation 07/21/19 05:30 08/17/19 05:29 Quetiapine Fumarate (SEROqueL) 25 mg Q8H PRN ORAL agitation 07/21/19 05:30 08/17/19 05:29 07/31/19 13:38 Vania Hui MD Aug 01, 2019 11:49
[2019-08-01 12:00] VITALS: BP 110/53
--- NOTE | 2019-08-01 12:27 | Diagnostic Imaging Report ---
Indication: Shortness of breath Technique: One view of the chest Comparison: 07/29/2019 Findings: Bilateral mid and lower lung interstitial and airspace opacities are again demonstrated. Bilateral pleural effusions are again demonstrated. The heart size is borderline enlarged. Impression: Unchanged, over 3 days, findings as above.
--- NOTE | 2019-08-01 13:45 | NUR ---
NURSE NOTES: report given to justice woodall
--- NOTE | 2019-08-01 14:00 | NUR ---
NURSE NOTES: Report received from Taylor QUINN. Patient is AOx1, responsive to name and tactile stimuili. Respiratory even and unlabored. No s/s of discomfort at this time. NGT is running at a prescribed rate. HOB is elevated. Bed is in lowest position with side rails up x2 and brakes are engaged. Bed alarm is on. Will continue frequent monitoring.
[2019-08-01 15:26] VITALS: BP 111/50
--- NOTE | 2019-08-01 15:51 | NUR ---
INSURANCE CLINICALS AND REVIEWS FAXED TO [facility] P- [phone] F- [phone]...REVIEW/CLINICAL
--- NOTE | 2019-08-01 16:48 | NUR ---
BOARD SETTERGRADUATE TEACHING ASSISTANT SI: SEPSIS T. 98.8 HR 64 RR 23 B/P 122/48 VM 45% BUN 35 CR 1.5 IS: LASIX IV ALB HHN SYNTHROID TELE STATUS
--- NOTE | 2019-08-01 19:00 | NUR ---
RESPIRATORY NOTE:pt recieved on venturi mask no SOB or discomfort noted, pt does have some skin tear on top of both of the ears RN Kilo aware. mask tie moved to under ear with gauze for pt comfort. Wound care nurse aware.
--- NOTE | 2019-08-01 19:09 | Internal Med Progress Note ---
Subjective Date of Service: Aug 01, 2019 Physician Name NiurkaXander Attending Physician Lamont Hayes MD Current Medications Medications (Trade) Dose Ordered Sig/Kike Route PRN Reason Start Time Stop Time Status Last Admin Dose Admin Acetaminophen (Tylenol) 650 mg Q4H PRN ORAL fever 07/21/19 05:30 08/17/19 05:29 Albuterol/ Ipratropium (Albuterol/ Ipratropium) 3 ml Q4HRT PRN HHN sob 07/30/19 11:45 08/04/19 11:44 Amlodipine Besylate (Norvasc) 2.5 mg DAILY NG 07/24/19 09:00 08/23/19 08:59 08/01/19 08:36 Folic Acid (Folate) 2 mg DAILY ORAL 07/21/19 09:00 08/19/19 11:29 08/01/19 08:43 Furosemide (Lasix) 20 mg DAILY IV 07/30/19 09:00 08/29/19 08:59 08/01/19 08:43 Lansoprazole (Prevacid) 30 mg BID NG 07/23/19 18:00 08/22/19 17:59 08/01/19 18:00 Levothyroxine Sodium (Synthroid) 50 mcg DAILY@0630 ORAL 07/21/19 06:30 08/18/19 06:29 08/01/19 06:05 Ondansetron HCl (Zofran) 4 mg Q6H PRN IVP Nausea & Vomiting 07/21/19 08:15 08/17/19 14:14 Polyethylene Glycol (Miralax) 17 gm DAILYPRN PRN ORAL Constipation 07/21/19 05:30 08/17/19 05:29 Quetiapine Fumarate (SEROqueL) 25 mg Q8H PRN ORAL agitation 07/21/19 05:30 08/17/19 05:29 07/31/19 13:38 Allergies: Coded Allergies: PENICILLINS (Verified Allergy, Unknown, 10/27/18) tolretas cephalosporins ROS Limited/Unobtainable: Yes Subjective 84 YO M admitted with altered mental status. Now pneumonia and severe sepsis. Cover for Int Med-Dr Hayes. Objective Last Vital Signs Date Time Temp Pulse Resp B/P (MAP) Pulse Ox O2 Delivery O2 Flow Rate FiO2 08/01/19 15:26 98.1 62 20 111/50 (70) 95 08/01/19 09:00 Venturi Mask 6.0 07/31/19 18:58 35 Laboratory Tests Test 08/01/19 04:30 White Blood Count 7.2 K/UL (4.8-10.8) Red Blood Count 3.44 M/UL (4.70-6.10) L Hemoglobin 8.7 G/DL (14.2-18.0) L Hematocrit 27.0 % (42.0-52.0) L Mean Corpuscular Volume 79 FL (80-99) L Mean Corpuscular Hemoglobin 25.4 PG (27.0-31.0) L Mean Corpuscular Hemoglobin Concent 32.3 G/DL (32.0-36.0) Red Cell Distribution Width 16.8 % (11.6-14.8) H Platelet Count 481 K/UL (150-450) H Mean Platelet Volume 5.4 FL (6.5-10.1) L Neutrophils (%) (Auto) 62.5 % (45.0-75.0) Lymphocytes (%) (Auto) 21.2 % (20.0-45.0) Monocytes (%) (Auto) 8.6 % (1.0-10.0) Eosinophils (%) (Auto) 6.4 % (0.0-3.0) H Basophils (%) (Auto) 1.3 % (0.0-2.0) Sodium Level 136 MMOL/L (136-145) Potassium Level 4.9 MMOL/L (3.5-5.1) Chloride Level 102 MMOL/L (98-107) Carbon Dioxide Level 28 MMOL/L (21-32) Anion Gap 6 mmol/L (5-15) Blood Urea Nitrogen 35 mg/dL (7-18) H Creatinine 1.5 MG/DL (0.55-1.30) H Estimat Glomerular Filtration Rate 53.8 mL/min (>60) Glucose Level 114 MG/DL (74-106) H Calcium Level 8.6 MG/DL (8.5-10.1) Phosphorus Level 4.6 MG/DL (2.5-4.9) Magnesium Level 2.5 MG/DL (1.8-2.4) H Total Bilirubin 0.1 MG/DL (0.2-1.0) L Direct Bilirubin < 0.1 MG/DL (0.0-0.3) Aspartate Amino Transf (AST/SGOT) 33 U/L (15-37) Alanine Aminotransferase (ALT/SGPT) 21 U/L (12-78) Alkaline Phosphatase 106 U/L (46-116) Total Protein 7.0 G/DL (6.4-8.2) Albumin 1.8 G/DL (3.4-5.0) L Intake and Output 07/31/19 08/01/19 19:00 07:00 Intake Total 1095 ml 865 ml Output Total 400 ml 550 ml Balance 695 ml 315 ml Free Water 200 ml 150 ml Tube Feeding 715 ml 715 ml Other 180 ml Output Urine Total 400 ml 550 ml # Bowel Movements 1 Objective PHYSICAL EXAMINATION: GENERAL: The patient is a well-developed, well-nourished, thin-appearing male, who is in moderate respiratory distress. HEENT: Eyes, pupils are equal and responsive to light and accommodation. Extraocular movements are intact. NECK: Supple without lymphadenopathy. CHEST: Venturi mask; Lungs with bilateral wheezes and rhonchi; breath sounds decreased at bases CARDIOVASCULAR: Regular rhythm and rate. S1 and S2 are normal without murmurs, rubs, or gallops. ABDOMEN: Soft, nontender, and nondistended. Positive bowel sounds. No evidence of hepatosplenomegaly. Currently, no rebound or guarding noted. EXTREMITIES: Negative for clubbing, cyanosis, or edema. RECTAL/GENITAL: Not performed. NEUROLOGIC: Cranial nerves II through XII are grossly intact without focal deficits. Motor strength is 5/5 bilaterally. Deep tendon reflexes are 2+ plantar. Assessment/Plan Assessment/Plan ASSESSMENT: This is an 84-year-old male. 1. Bilateral pneumonia. 2. Respiratory failure. 3. Probable sepsis. 4. Altered mental status. 5. Diabetes type 2. 6. Hypothyroidism. 7. Cerebrovascular disease. 8. Acute renal failure. 9. Leukocytosis 10. Hypernatremia 11. Right pleural effusion TREATMENT: 1. Respiratory failure/bilateral pneumonia. A Pulmonary consultation has been obtained with Dr. Vania Hui. The patient is currently admitted to the intensive care unit. The patient is currently on a venturi mask. The patient has been started empirically on vancomycin and ertapenem. A sputum culture =MRSA. ABX=vanco per ID=Dr Roach 2. Altered mental status. This is probably secondary to hypoxia secondary to pneumonia as above. 3. Diabetes type 2. The patient was admitted without antihyperglycemic medication. 4. Hypothyroidism. Continue Levoxyl as above. 5. Cerebrovascular disease. The patient is status post cerebrovascular accident. 6. Acute renal failure. This may be secondary to acute dehydration. The patient is currently receiving intravenous fluids. 7. Severe Sepsis. ABX=vanco . ID=Dr Matias 8. S/P right thoracentesis 07/26/19 Xander Bah MD Aug 01, 2019 19:09
--- NOTE | 2019-08-01 19:29 | NUR ---
HAND-OFF: Report given to Kilo QUINN. Patient is in stable condition. Endorsed plan of care.
--- NOTE | 2019-08-01 19:30 | NUR ---
NURSE NOTES: Received pt from KAI Elizondo. Pt is resting in bed in no acute distress, on venturi mask oxygen support with HOB elevated. NG tube intact in right nare feeding glucerna 1.2 @ 65 mL/ HR. Aspiration precautions and fall precautions active and implemented. Iv site intact. Pt offloaded via pillow on left side. Bed locked in lowest position, bed alarm on, call light within reach. Will continue with plan of care.
[2019-08-01 20:00] VITALS: BP 106/43
[2019-08-02] VITALS (7 sets, daily range): BP systolic 115–137; BP diastolic 54–62
--- NOTE | 2019-08-02 07:10 | NUR ---
NURSE NOTES: Received patient from KAI Boateng. in bed resting. Patient is in no acute distress, on venturi mask oxygen 6L support with HOB elevated. NG tube intact in right nare feeding glucerna 1.2 @ 65 mL/ HR. Aspiration precautions and fall precautions active and implemented. IV site intact and patent. Patient feet is offloaded via pillow on both legs. Bed locked in lowest position, bed alarm on, call light within reach. Will continue with the plan of care.
[2019-08-02 07:55] LABS: BASOPHILS % (AUTO) 2.9 % (0.0-2.0); EOSINOPHILS % (AUTO) 7.3 % (0.0-3.0); HEMATOCRIT 28.5 % (42.0-52.0); HEMOGLOBIN 9.1 G/DL (14.2-18.0); LYMPHOCYTES % (AUTO) 21.2 % (20.0-45.0); MEAN CORPUSCULAR VOLUME 78 FL (80-99); MONOCYTES % (AUTO) 10.7 % (1.0-10.0); NEUTROPHILS % (AUTO) 57.9 % (45.0-75.0); PLATELET COUNT 576 K/UL (150-450); RED BLOOD COUNT 3.66 M/UL (4.70-6.10); RED CELL DISTRIBUTION WIDTH 17.7 % (11.6-14.8); WHITE BLOOD COUNT 6.8 K/UL (4.8-10.8)
[2019-08-02 08:17] LABS: ALANINE AMINOTRANSFERASE 24 U/L (12-78); ALBUMIN 1.9 G/DL (3.4-5.0); ALBUMIN/GLOBULIN RATIO 0.3 (1.0-2.7); ALKALINE PHOSPHATASE 109 U/L (46-116); ANION GAP 7 mmol/L (5-15); ASPARTATE AMINO TRANSFERASE 25 U/L (15-37); BILIRUBIN,TOTAL 0.2 MG/DL (0.2-1.0); BLOOD UREA NITROGEN 32 mg/dL (7-18); CALCIUM 9.1 MG/DL (8.5-10.1); CARBON DIOXIDE 30 MMOL/L (21-32); CHLORIDE 100 MMOL/L (98-107); CREATININE 1.3 MG/DL (0.55-1.30); POTASSIUM 4.6 MMOL/L (3.5-5.1); SODIUM 137 MMOL/L (136-145)
--- NOTE | 2019-08-02 08:31 | NUR ---
RADIOLOGY: PCXR COMPLETED 0830 HRS. NF
[2019-08-02] MEDS ORDERED: NS 275ml ONE (08:50)
--- NOTE | 2019-08-02 10:13 | Cardiology Progress Note ---
Assessment/Plan Assessment/Plan 1. Toxic metabolic encephalopathy. 2. Pneumonia. 3. Respiratory insufficiency. 4. Dementia. 5. Hypernatremia. 6. History of CVA. 7. History of hypertension. 8. History of diabetes mellitus. 9. History of hypothyroidism. tele reviewed sinus cxr reviewed personally bilat infiltrates on oxygen on pulm treatment has self partially removed ngt rn notified feedign held , restraints ordered to prevent removal of tube and iv cv ok to med-surg if ok with dr pena from pulm view point as well Subjective ROS Limited/Unobtainable: Yes Objective Last 24 Hour Vital Signs Date Time Temp Pulse Resp B/P (MAP) Pulse Ox O2 Delivery O2 Flow Rate FiO2 08/02/19 09:00 Venturi Mask 6.0 08/02/19 08:22 62 128/62 08/02/19 08:00 97.2 62 18 128/62 (84) 97 08/02/19 04:00 58 08/02/19 04:00 97.5 58 20 137/54 (81) 98 08/02/19 00:00 62 08/02/19 00:00 97.7 62 20 133/54 (80) 97 08/01/19 21:00 Venturi Mask 6.0 08/01/19 20:16 57 20 97 Venturi Mask 6.0 35 08/01/19 20:16 97 Venturi Mask 6.0 35 08/01/19 20:00 64 08/01/19 20:00 97.0 64 20 106/43 (64) 98 08/01/19 15:26 98.1 62 20 111/50 (70) 95 08/01/19 15:20 58 08/01/19 12:00 97.5 64 23 110/53 (72) 100 08/01/19 12:00 67 General Appearance: no apparent distress, other - awake , partially pulled out his ngt with his hadn still beign on the ngtube!! Cardiovascular: normal rate Respiratory/Chest: rhonchi - bilaterally Abdomen: normal bowel sounds, non tender, soft Extremities: no swelling Intake and Output 08/01/19 08/02/19 18:59 06:59 Intake Total 365 ml Balance 365 ml Free Water 40 ml Tube Feeding 325 ml # Voids 2 2 # Bowel Movements 1 Laboratory Tests Test 2/25/20 06:36 White Blood Count 6.8 K/UL (4.8-10.8) Red Blood Count 3.66 M/UL (4.70-6.10) L Hemoglobin 9.1 G/DL (14.2-18.0) L Hematocrit 28.5 % (42.0-52.0) L Mean Corpuscular Volume 78 FL (80-99) L Mean Corpuscular Hemoglobin 24.9 PG (27.0-31.0) L Mean Corpuscular Hemoglobin Concent 32.1 G/DL (32.0-36.0) Red Cell Distribution Width 17.7 % (11.6-14.8) H Platelet Count 576 K/UL (150-450) H Mean Platelet Volume 5.8 FL (6.5-10.1) L Neutrophils (%) (Auto) 57.9 % (45.0-75.0) Lymphocytes (%) (Auto) 21.2 % (20.0-45.0) Monocytes (%) (Auto) 10.7 % (1.0-10.0) H Eosinophils (%) (Auto) 7.3 % (0.0-3.0) H Basophils (%) (Auto) 2.9 % (0.0-2.0) H Sodium Level 137 MMOL/L (136-145) Potassium Level 4.6 MMOL/L (3.5-5.1) Chloride Level 100 MMOL/L (98-107) Carbon Dioxide Level 30 MMOL/L (21-32) Anion Gap 7 mmol/L (5-15) Blood Urea Nitrogen 32 mg/dL (7-18) H Creatinine 1.3 MG/DL (0.55-1.30) Estimat Glomerular Filtration Rate > 60 mL/min (>60) Glucose Level 116 MG/DL (74-106) H Calcium Level 9.1 MG/DL (8.5-10.1) Total Bilirubin 0.2 MG/DL (0.2-1.0) Aspartate Amino Transf (AST/SGOT) 25 U/L (15-37) Alanine Aminotransferase (ALT/SGPT) 24 U/L (12-78) Alkaline Phosphatase 109 U/L (46-116) Pro-B-Type Natriuretic Peptide 235 pg/mL (0-125) H Total Protein 8.3 G/DL (6.4-8.2) H Albumin 1.9 G/DL (3.4-5.0) L Globulin 6.4 g/dL Albumin/Globulin Ratio 0.3 (1.0-2.7) L Juarez Fletcher MD Aug 02, 2019 10:13
--- NOTE | 2019-08-02 10:14 | NUR ---
RD ASSESSMENT & RECOMMENDATIONS SEE CARE ACTIVITY FOR COMPLETE ASSESSMENT DAILY ESTIMATED NEEDS: Needs based on Sepsis, DM, pulmonary/ 67.7kg 25-35 kcals/kg 0367-0208 total kcals 1.25-2 g protein/kg 85-135 g total protein 20-30ml/kcal mL/kg 0694-5362 total fluid mLs NUTRITION DIAGNOSIS: * Swallowing difficulty R/T dysphagia w/ h/o CVA, decreased cognitive fxn as evidenced by BUILDING STONECUTTER recommends nonoral feeds at this time, w/ NGT feeds. CURRENT TF: Glucerna 1.2 @65 ml/hr x22 hrs (PO DIET RECOMMENDATIONS: IF ORAL DIET INDICATED-> CCHO MED, LOW NA/ texture per BUILDING STONECUTTER) ENTERAL NUTRITION RECOMMENDATIONS: Glucerna 1.2 @65ml/hr x22 hrs to provide 1430ml, 1716 kcal, 86g prot, 1151ml free H2O - Maintain Glucerna 1.2 @ 65ml/hr for 22 hrs as tolerated. - HOLD TF one hour before and after synthroid meds. - Flush per HOB over 30 degrees Once tolerating TF well, rec to increase to 70ml/hr x22 hrs for 1848 kcal, 92g pro. ADDITIONAL RECOMMENDATIONS: * Calibrated bedscale wt for accurate CBW * Monitor BUILDING STONECUTTER recommendation regarding oral diet, need to adjust TF * NISS w/ TF: A1C of 6.5 * Monitor lytes, replete as needed * Wound care: add JOSE BID + Vit C 250mg daily * REC TO RECALIBRATE BED SCALE W/ P200 MATTRESS FOR ACCURATE CBW
--- NOTE | 2019-08-02 11:59 | Pulmonology Progress Note ---
Assessment/Plan Problems: (1) Pulmonary edema (2) Nosocomial pneumonia (3) Pleural effusion Assessment & Plan: thoracentesis done, 780 cc removed (4) Sepsis Assessment & Plan: afebrile, wbc wnl (5) Atrial fibrillation (6) Acute renal failure (7) Acute metabolic encephalopathy (8) Severe anemia (9) Alzheimer's dementia (10) History of CVA (cerebrovascular accident) (11) Diabetes mellitus (12) Hypothyroidism Assessment/Plan on nasal cannula no new complains, improving more awake failed the swallow study previously, video swallow showed silent aspiration. non-oral feeding. family meeting to decide about plan of care repeat cxr, on Lasix 20 qd, respiratory treatment NG tube in, tolerating well sliding scale f/u renal function Venofer for iron deficiency DVT prophylaxis. Subjective ROS Limited/Unobtainable: No Constitutional: Reports: no symptoms HEENT: Repors: no symptoms Allergies: Coded Allergies: PENICILLINS (Verified Allergy, Unknown, 10/27/18) tolretas cephalosporins Objective Last 24 Hour Vital Signs Date Time Temp Pulse Resp B/P (MAP) Pulse Ox O2 Delivery O2 Flow Rate FiO2 08/02/19 09:00 Venturi Mask 6.0 08/02/19 08:22 62 128/62 08/02/19 08:00 97.2 62 18 128/62 (84) 97 08/02/19 08:00 63 08/02/19 04:00 58 08/02/19 04:00 97.5 58 20 137/54 (81) 98 08/02/19 00:00 62 08/02/19 00:00 97.7 62 20 133/54 (80) 97 08/01/19 21:00 Venturi Mask 6.0 08/01/19 20:16 57 20 97 Venturi Mask 6.0 35 08/01/19 20:16 97 Venturi Mask 6.0 35 08/01/19 20:00 64 08/01/19 20:00 97.0 64 20 106/43 (64) 98 08/01/19 15:26 98.1 62 20 111/50 (70) 95 08/01/19 15:20 58 08/01/19 12:00 97.5 64 23 110/53 (72) 100 08/01/19 12:00 67 Intake and Output 08/01/19 08/02/19 19:00 07:00 Intake Total 365 ml Balance 365 ml Free Water 40 ml Tube Feeding 325 ml # Voids 2 2 # Bowel Movements 1 General Appearance: cachetic HEENT: normocephalic, atraumatic Respiratory/Chest: chest wall non-tender, crackles/rales Cardiovascular: normal peripheral pulses, normal rate Abdomen: normal bowel sounds, soft, non tender Extremities: no clubbing Neurologic/Psychiatric: first breaker feeder II-XII grossly normal Laboratory Tests 08/02/19 06:36: White Blood Count 6.8, Red Blood Count 3.66L, Hemoglobin 9.1L, Hematocrit 28.5L , Mean Corpuscular Volume 78L, Mean Corpuscular Hemoglobin 24.9L, Mean Corpuscular Hemoglobin Concent 32.1, Red Cell Distribution Width 17.7H, Platelet Count 576H, Mean Platelet Volume 5.8L, Neutrophils (%) (Auto) 57.9, Lymphocytes (%) (Auto) 21.2, Monocytes (%) (Auto) 10.7H, Eosinophils (%) (Auto) 7.3H, Basophils (%) (Auto) 2.9H, Sodium Level 137, Potassium Level 4.6, Chloride Level 100, Carbon Dioxide Level 30, Anion Gap 7, Blood Urea Nitrogen 32H, Creatinine 1.3, Estimat Glomerular Filtration Rate > 60, Glucose Level 116H , Calcium Level 9.1, Total Bilirubin 0.2, Aspartate Amino Transf (AST/SGOT) 25, Alanine Aminotransferase (ALT/SGPT) 24, Alkaline Phosphatase 109, Pro-B-Type Natriuretic Peptide 235H, Total Protein 8.3H, Albumin 1.9L, Globulin 6.4, Albumin/Globulin Ratio 0.3L Current Medications Medications (Trade) Dose Ordered Sig/Kike Route PRN Reason Start Time Stop Time Status Last Admin Dose Admin Acetaminophen (Tylenol) 650 mg Q4H PRN ORAL fever 07/21/19 05:30 08/17/19 05:29 Albuterol/ Ipratropium (Albuterol/ Ipratropium) 3 ml Q4HRT PRN HHN sob 07/30/19 11:45 08/04/19 11:44 Amlodipine Besylate (Norvasc) 2.5 mg DAILY NG 07/24/19 09:00 08/23/19 08:59 08/02/19 08:22 Folic Acid (Folate) 2 mg DAILY ORAL 07/21/19 09:00 08/19/19 11:29 08/02/19 08:21 Furosemide (Lasix) 20 mg DAILY IV 07/30/19 09:00 08/29/19 08:59 08/02/19 08:23 Lansoprazole (Prevacid) 30 mg BID NG 07/23/19 18:00 08/22/19 17:59 08/02/19 08:22 Levothyroxine Sodium (Synthroid) 50 mcg DAILY@0630 ORAL 07/21/19 06:30 08/18/19 06:29 08/02/19 06:16 Ondansetron HCl (Zofran) 4 mg Q6H PRN IVP Nausea & Vomiting 07/21/19 08:15 08/17/19 14:14 Polyethylene Glycol (Miralax) 17 gm DAILYPRN PRN ORAL Constipation 07/21/19 05:30 08/17/19 05:29 Quetiapine Fumarate (SEROqueL) 25 mg Q8H PRN ORAL agitation 07/21/19 05:30 08/17/19 05:29 07/31/19 13:38 Vania Hui MD Aug 02, 2019 11:59
--- NOTE | 2019-08-02 12:16 | NUR ---
RADIOLOGY DEPT., ABDOMEN X-RAY FOR NGT PLCWI COMPLETED.-P.DYE
--- NOTE | 2019-08-02 12:21 | Diagnostic Imaging Report ---
Indication: NG tube placement Comparison: None Single view of the abdomen obtained Findings: NG tube is curled in the stomach lumen. IMPRESSION: Satisfactory position of the nasogastric tube
--- NOTE | 2019-08-02 12:53 | Diagnostic Imaging Report ---
Indication: Dyspnea Comparison: 08/01/2019 A single view chest radiograph was obtained. Findings: Patchy perihilar and basilar infiltrates demonstrated. Heart size is stable. NG tube remains. IMPRESSION: Patchy bilateral infiltrates
--- NOTE | 2019-08-02 13:52 | Nephrology Progress Note ---
Assessment/Plan Problem List: (1) Acute renal failure (2) Severe anemia (3) Sepsis (4) Diabetes mellitus (5) Hypothyroidism Assessment Alexi Cr lowering 2.6 to 1.8 Sepsis / Pneumonia / UTI / Hypothermia Respiratory failure HypoThyroidism h/o CVA Anemia Dementia Plan DC Hydrate IV iron Phos supplement as needed antibiotics avoid nephrotoxics monitor renal parameters check TFTs- adjust synthroid dose Urine eos per orders Subjective ROS Limited/Unobtainable: No Constitutional: Reports: malaise Objective Objective Last 24 Hour Vital Signs Date Time Temp Pulse Resp B/P (MAP) Pulse Ox O2 Delivery O2 Flow Rate FiO2 08/02/19 12:00 60 08/02/19 12:00 97.3 60 20 122/58 (79) 97 08/02/19 09:00 Venturi Mask 6.0 08/02/19 08:22 62 128/62 08/02/19 08:00 97.2 62 18 128/62 (84) 97 08/02/19 08:00 63 08/02/19 04:00 58 08/02/19 04:00 97.5 58 20 137/54 (81) 98 08/02/19 00:00 62 08/02/19 00:00 97.7 62 20 133/54 (80) 97 08/01/19 21:00 Venturi Mask 6.0 08/01/19 20:16 57 20 97 Venturi Mask 6.0 35 08/01/19 20:16 97 Venturi Mask 6.0 35 08/01/19 20:00 64 08/01/19 20:00 97.0 64 20 106/43 (64) 98 08/01/19 15:26 98.1 62 20 111/50 (70) 95 08/01/19 15:20 58 Intake and Output 08/01/19 08/02/19 19:00 07:00 Intake Total 365 ml Balance 365 ml Free Water 40 ml Tube Feeding 325 ml # Voids 2 2 # Bowel Movements 1 Laboratory Tests 08/02/19 06:36: White Blood Count 6.8, Red Blood Count 3.66L, Hemoglobin 9.1L, Hematocrit 28.5L , Mean Corpuscular Volume 78L, Mean Corpuscular Hemoglobin 24.9L, Mean Corpuscular Hemoglobin Concent 32.1, Red Cell Distribution Width 17.7H, Platelet Count 576H, Mean Platelet Volume 5.8L, Neutrophils (%) (Auto) 57.9, Lymphocytes (%) (Auto) 21.2, Monocytes (%) (Auto) 10.7H, Eosinophils (%) (Auto) 7.3H, Basophils (%) (Auto) 2.9H, Sodium Level 137, Potassium Level 4.6, Chloride Level 100, Carbon Dioxide Level 30, Anion Gap 7, Blood Urea Nitrogen 32H, Creatinine 1.3, Estimat Glomerular Filtration Rate > 60, Glucose Level 116H , Calcium Level 9.1, Total Bilirubin 0.2, Aspartate Amino Transf (AST/SGOT) 25, Alanine Aminotransferase (ALT/SGPT) 24, Alkaline Phosphatase 109, Pro-B-Type Natriuretic Peptide 235H, Total Protein 8.3H, Albumin 1.9L, Globulin 6.4, Albumin/Globulin Ratio 0.3L Height (Feet): 6 Height (Inches): 1.00 Weight (Pounds): 161 General Appearance: no apparent distress EENT: other - pulled out NG Cardiovascular: normal rate Respiratory/Chest: decreased breath sounds Abdomen: soft Objective no change Clovis Benites MD Aug 02, 2019 13:52
--- NOTE | 2019-08-02 17:53 | Infectious Diseases Prog Note ---
Assessment/Plan Assessment/Plan Assessment: Severe sepsis Pneumonia, Sp Rx Probable UTI, SP Rx -07/25 CXR: Markedly increased right basilar opacity, likely increasing pleural fluid -07/22 CXR: Worsening CHF -u/a wbc 15-20, nit neg, leuk +3; ucx <10k Proteus sp (R Amp, ancef, macrobid ; otherwise), 70-80K S. viridans -07/19 CXR: marked worsening of pleural and parenchymal disease at the right lung base.There is also increasing parenchymal consolidation and atelectasis in the left infrahilar region. -CXR: Perihilar and basilar infiltrates. Findings suspicious for pneumonia. -influenza sc neg -Bcx NTD -sp cx MRSA, C. albicans -legionella ag urine neg R pleural effusion -07/26 SP thoracentesis: Successful ultrasound-guided thoracentesis, yielding 780 milliliters of fluid --Cx NTD -07/26 CXR: Improved right pleural effusion, post thoracentesis. No radiographically evident complication Hypothermia, SP Leukocytosis, SP Acute respiratory failure, sp NRB mask/VEnturi mask Lactic acidosis, SP RAMAN, SP Dm2 HTN non verbal hypothyroidism CVA hx of UTI anemia dementia detention resident Plan: monitor pt off of AB RX - 07/31 Sp IV Vancomycin #14/ for MRSA PNA -07/26 SP Cefepime #5 -07/22 SP Barbara #4 -07/19 SP Ertapenem #2 -07/18 SP IV Amikacin x1, Levaquin x1 -f/u cx -Monitor CBC/CMP, temperatures -aspiration precautions Thank you for this consultation. Will continue to follow along with you. Subjective Allergies: Coded Allergies: PENICILLINS (Verified Allergy, Unknown, 10/27/18) tolretas cephalosporins Subjective comfortable afebrile Objective Vital Signs Last 24 Hour Vital Signs Date Time Temp Pulse Resp B/P (MAP) Pulse Ox O2 Delivery O2 Flow Rate FiO2 08/02/19 17:37 64 08/02/19 17:37 97.5 64 20 137/57 (83) 96 08/02/19 16:00 64 08/02/19 16:00 97.5 64 20 137/57 (83) 96 08/02/19 12:00 60 08/02/19 12:00 97.3 60 20 122/58 (79) 97 08/02/19 09:00 Venturi Mask 6.0 08/02/19 08:22 62 128/62 08/02/19 08:00 97.2 62 18 128/62 (84) 97 08/02/19 08:00 63 08/02/19 07:40 96 Venturi Mask 6.0 35 08/02/19 07:36 66 22 98 Venturi Mask 6.0 35 08/02/19 04:00 58 08/02/19 04:00 97.5 58 20 137/54 (81) 98 08/02/19 00:00 62 08/02/19 00:00 97.7 62 20 133/54 (80) 97 08/01/19 21:00 Venturi Mask 6.0 08/01/19 20:16 57 20 97 Venturi Mask 6.0 35 08/01/19 20:16 97 Venturi Mask 6.0 35 08/01/19 20:00 64 08/01/19 20:00 97.0 64 20 106/43 (64) 98 Height (Feet): 6 Height (Inches): 1.00 Weight (Pounds): 161 HEENT: atraumatic Respiratory/Chest: normal breath sounds Cardiovascular: regularly irregular Abdomen: no organomegaly Laboratory Tests Test 08/02/19 06:36 White Blood Count 6.8 K/UL (4.8-10.8) Red Blood Count 3.66 M/UL (4.70-6.10) L Hemoglobin 9.1 G/DL (14.2-18.0) L Hematocrit 28.5 % (42.0-52.0) L Mean Corpuscular Volume 78 FL (80-99) L Mean Corpuscular Hemoglobin 24.9 PG (27.0-31.0) L Mean Corpuscular Hemoglobin Concent 32.1 G/DL (32.0-36.0) Red Cell Distribution Width 17.7 % (11.6-14.8) H Platelet Count 576 K/UL (150-450) H Mean Platelet Volume 5.8 FL (6.5-10.1) L Neutrophils (%) (Auto) 57.9 % (45.0-75.0) Lymphocytes (%) (Auto) 21.2 % (20.0-45.0) Monocytes (%) (Auto) 10.7 % (1.0-10.0) H Eosinophils (%) (Auto) 7.3 % (0.0-3.0) H Basophils (%) (Auto) 2.9 % (0.0-2.0) H Sodium Level 137 MMOL/L (136-145) Potassium Level 4.6 MMOL/L (3.5-5.1) Chloride Level 100 MMOL/L (98-107) Carbon Dioxide Level 30 MMOL/L (21-32) Anion Gap 7 mmol/L (5-15) Blood Urea Nitrogen 32 mg/dL (7-18) H Creatinine 1.3 MG/DL (0.55-1.30) Estimat Glomerular Filtration Rate > 60 mL/min (>60) Glucose Level 116 MG/DL (74-106) H Calcium Level 9.1 MG/DL (8.5-10.1) Total Bilirubin 0.2 MG/DL (0.2-1.0) Aspartate Amino Transf (AST/SGOT) 25 U/L (15-37) Alanine Aminotransferase (ALT/SGPT) 24 U/L (12-78) Alkaline Phosphatase 109 U/L (46-116) Pro-B-Type Natriuretic Peptide 235 pg/mL (0-125) H Total Protein 8.3 G/DL (6.4-8.2) H Albumin 1.9 G/DL (3.4-5.0) L Globulin 6.4 g/dL Albumin/Globulin Ratio 0.3 (1.0-2.7) L Current Medications Medications (Trade) Dose Ordered Sig/Kike Route PRN Reason Start Time Stop Time Status Last Admin Dose Admin Acetaminophen (Tylenol) 650 mg Q4H PRN ORAL fever 07/21/19 05:30 08/17/19 05:29 Albuterol/ Ipratropium (Albuterol/ Ipratropium) 3 ml Q4HRT PRN HHN sob 07/30/19 11:45 08/04/19 11:44 Amlodipine Besylate (Norvasc) 2.5 mg DAILY NG 07/24/19 09:00 08/23/19 08:59 08/02/19 08:22 Folic Acid (Folate) 2 mg DAILY ORAL 07/21/19 09:00 08/19/19 11:29 08/02/19 08:21 Furosemide (Lasix) 20 mg DAILY IV 07/30/19 09:00 08/29/19 08:59 08/02/19 08:23 Lansoprazole (Prevacid) 30 mg BID NG 07/23/19 18:00 08/22/19 17:59 08/02/19 08:22 Levothyroxine Sodium (Synthroid) 50 mcg DAILY@0630 ORAL 07/21/19 06:30 08/18/19 06:29 08/02/19 06:16 Ondansetron HCl (Zofran) 4 mg Q6H PRN IVP Nausea & Vomiting 07/21/19 08:15 08/17/19 14:14 Polyethylene Glycol (Miralax) 17 gm DAILYPRN PRN ORAL Constipation 07/21/19 05:30 08/17/19 05:29 Quetiapine Fumarate (SEROqueL) 25 mg Q8H PRN ORAL agitation 07/21/19 05:30 08/17/19 05:29 07/31/19 13:38 Alexander Lock MD Aug 02, 2019 17:53
--- NOTE | 2019-08-02 19:11 | Internal Med Progress Note ---
Subjective Date of Service: Aug 02, 2019 Physician Name NiurkaXander Attending Physician Lamont Hayes MD Current Medications Medications (Trade) Dose Ordered Sig/Kike Route PRN Reason Start Time Stop Time Status Last Admin Dose Admin Acetaminophen (Tylenol) 650 mg Q4H PRN ORAL fever 07/21/19 05:30 08/17/19 05:29 Albuterol/ Ipratropium (Albuterol/ Ipratropium) 3 ml Q4HRT PRN HHN sob 07/30/19 11:45 08/04/19 11:44 Amlodipine Besylate (Norvasc) 2.5 mg DAILY NG 07/24/19 09:00 08/23/19 08:59 08/02/19 08:22 Folic Acid (Folate) 2 mg DAILY ORAL 07/21/19 09:00 08/19/19 11:29 08/02/19 08:21 Furosemide (Lasix) 20 mg DAILY IV 07/30/19 09:00 08/29/19 08:59 08/02/19 08:23 Lansoprazole (Prevacid) 30 mg BID NG 07/23/19 18:00 08/22/19 17:59 08/02/19 18:10 Levothyroxine Sodium (Synthroid) 50 mcg DAILY@0630 ORAL 07/21/19 06:30 08/18/19 06:29 08/02/19 06:16 Ondansetron HCl (Zofran) 4 mg Q6H PRN IVP Nausea & Vomiting 07/21/19 08:15 08/17/19 14:14 Polyethylene Glycol (Miralax) 17 gm DAILYPRN PRN ORAL Constipation 07/21/19 05:30 08/17/19 05:29 Quetiapine Fumarate (SEROqueL) 25 mg Q8H PRN ORAL agitation 07/21/19 05:30 08/17/19 05:29 07/31/19 13:38 Allergies: Coded Allergies: PENICILLINS (Verified Allergy, Unknown, 10/27/18) tolretas cephalosporins ROS Limited/Unobtainable: Yes Subjective 84 YO M admitted with altered mental status. Now pneumonia and severe sepsis. Cover for Int Ravi-Dr Hayes. Objective Last Vital Signs Date Time Temp Pulse Resp B/P (MAP) Pulse Ox O2 Delivery O2 Flow Rate FiO2 08/02/19 17:37 64 08/02/19 17:37 97.5 20 137/57 (83) 96 08/02/19 09:00 Venturi Mask 6.0 08/02/19 07:40 35 Laboratory Tests Test 08/02/19 06:36 White Blood Count 6.8 K/UL (4.8-10.8) Red Blood Count 3.66 M/UL (4.70-6.10) L Hemoglobin 9.1 G/DL (14.2-18.0) L Hematocrit 28.5 % (42.0-52.0) L Mean Corpuscular Volume 78 FL (80-99) L Mean Corpuscular Hemoglobin 24.9 PG (27.0-31.0) L Mean Corpuscular Hemoglobin Concent 32.1 G/DL (32.0-36.0) Red Cell Distribution Width 17.7 % (11.6-14.8) H Platelet Count 576 K/UL (150-450) H Mean Platelet Volume 5.8 FL (6.5-10.1) L Neutrophils (%) (Auto) 57.9 % (45.0-75.0) Lymphocytes (%) (Auto) 21.2 % (20.0-45.0) Monocytes (%) (Auto) 10.7 % (1.0-10.0) H Eosinophils (%) (Auto) 7.3 % (0.0-3.0) H Basophils (%) (Auto) 2.9 % (0.0-2.0) H Sodium Level 137 MMOL/L (136-145) Potassium Level 4.6 MMOL/L (3.5-5.1) Chloride Level 100 MMOL/L (98-107) Carbon Dioxide Level 30 MMOL/L (21-32) Anion Gap 7 mmol/L (5-15) Blood Urea Nitrogen 32 mg/dL (7-18) H Creatinine 1.3 MG/DL (0.55-1.30) Estimat Glomerular Filtration Rate > 60 mL/min (>60) Glucose Level 116 MG/DL (74-106) H Calcium Level 9.1 MG/DL (8.5-10.1) Total Bilirubin 0.2 MG/DL (0.2-1.0) Aspartate Amino Transf (AST/SGOT) 25 U/L (15-37) Alanine Aminotransferase (ALT/SGPT) 24 U/L (12-78) Alkaline Phosphatase 109 U/L (46-116) Pro-B-Type Natriuretic Peptide 235 pg/mL (0-125) H Total Protein 8.3 G/DL (6.4-8.2) H Albumin 1.9 G/DL (3.4-5.0) L Globulin 6.4 g/dL Albumin/Globulin Ratio 0.3 (1.0-2.7) L Intake and Output 08/01/19 08/02/19 19:00 07:00 Intake Total 365 ml Balance 365 ml Free Water 40 ml Tube Feeding 325 ml # Voids 2 2 # Bowel Movements 1 Objective PHYSICAL EXAMINATION: GENERAL: The patient is a well-developed, well-nourished, thin-appearing male, who is in moderate respiratory distress. HEENT: Eyes, pupils are equal and responsive to light and accommodation. Extraocular movements are intact. NECK: Supple without lymphadenopathy. CHEST: Venturi mask; Lungs with bilateral wheezes and rhonchi; breath sounds decreased at bases CARDIOVASCULAR: Regular rhythm and rate. S1 and S2 are normal without murmurs, rubs, or gallops. ABDOMEN: Soft, nontender, and nondistended. Positive bowel sounds. No evidence of hepatosplenomegaly. Currently, no rebound or guarding noted. EXTREMITIES: Negative for clubbing, cyanosis, or edema. RECTAL/GENITAL: Not performed. NEUROLOGIC: Cranial nerves II through XII are grossly intact without focal deficits. Motor strength is 5/5 bilaterally. Deep tendon reflexes are 2+ plantar. Assessment/Plan Assessment/Plan ASSESSMENT: This is an 84-year-old male. 1. Bilateral pneumonia. 2. Respiratory failure. 3. Probable sepsis. 4. Altered mental status. 5. Diabetes type 2. 6. Hypothyroidism. 7. Cerebrovascular disease. 8. Acute renal failure. 9. Leukocytosis 10. Hypernatremia 11. Right pleural effusion TREATMENT: 1. Respiratory failure/bilateral pneumonia. A Pulmonary consultation has been obtained with Dr. Vania Hui. The patient is currently admitted to the intensive care unit. The patient is currently on a venturi mask. The patient has been started empirically on vancomycin and ertapenem. A sputum culture =MRSA. ABX=vanco per ID=Dr Roach 2. Altered mental status. This is probably secondary to hypoxia secondary to pneumonia as above. 3. Diabetes type 2. The patient was admitted without antihyperglycemic medication. 4. Hypothyroidism. Continue Levoxyl as above. 5. Cerebrovascular disease. The patient is status post cerebrovascular accident. 6. Acute renal failure. This may be secondary to acute dehydration. The patient is currently receiving intravenous fluids. 7. Severe Sepsis. ABX=vanco . ID=Dr Matias 8. S/P right thoracentesis 07/26/19 9. Discharge planning Xander Bah MD Aug 02, 2019 19:11
--- NOTE | 2019-08-02 19:33 | NUR ---
HAND-OFF: Report given to Alexis QUINN. Endorsed plan of care.
--- NOTE | 2019-08-02 19:34 | NUR ---
NURSE NOTES: Got report from Chavez QUINN. Pt in stable condition. Denies any pain. No s/s of distress or discomfort noted. Pt resting in bed comfortably. Bed in low and locked position, call light within reach, bedside table within reach. Continue to monitor.
[2019-08-02] MEDS: ALPRAZolam 0.5mg tab ORAL PRN (21:45)
[2019-08-03] VITALS: BP 113/57
[2019-08-03 04:00] VITALS: BP 144/66
[2019-08-03] MEDS: ALPRAZolam 0.5mg tab ORAL PRN (04:19)
--- NOTE | 2019-08-03 06:58 | NUR ---
HAND-OFF: Report given to Chavez QUINN.
--- NOTE | 2019-08-03 06:59 | NUR ---
NURSE NOTES: Received patient from KAI Espinoza. in bed resting. Patient is in no acute distress, on venturi mask oxygen 6L support with HOB elevated. NG tube intact in right nares feeding glucerna 1.2 @ 65 mL/ HR. Aspiration precautions and fall precautions active and implemented. IV site intact and patent. Patient feet is offloaded via pillow on both legs. Bed locked in lowest position, bed alarm on, call light within reach. Will continue with the plan of care.
[2019-08-03 07:33] LABS: BASOPHILS % (AUTO) 1.8 % (0.0-2.0); EOSINOPHILS % (AUTO) 8.7 % (0.0-3.0); HEMATOCRIT 27.6 % (42.0-52.0); HEMOGLOBIN 8.8 G/DL (14.2-18.0); MEAN CORPUSCULAR VOLUME 79 FL (80-99); MONOCYTES % (AUTO) 12.9 % (1.0-10.0); NEUTROPHILS % (AUTO) 55.6 % (45.0-75.0); PLATELET COUNT 608 K/UL (150-450); RED BLOOD COUNT 3.49 M/UL (4.70-6.10); RED CELL DISTRIBUTION WIDTH 17.1 % (11.6-14.8); WHITE BLOOD COUNT 6.3 K/UL (4.8-10.8)
[2019-08-03 07:51] LABS: ANION GAP 11 mmol/L (5-15); BLOOD UREA NITROGEN 33 mg/dL (7-18); CALCIUM 9.3 MG/DL (8.5-10.1); CARBON DIOXIDE 25 MMOL/L (21-32); CHLORIDE 103 MMOL/L (98-107); CREATININE 1.4 MG/DL (0.55-1.30); POTASSIUM 4.5 MMOL/L (3.5-5.1); SODIUM 139 MMOL/L (136-145)
[2019-08-03 08:00] VITALS: BP 133/55
--- NOTE | 2019-08-03 09:27 | Infectious Diseases Prog Note ---
Assessment/Plan Assessment/Plan Assessment: Severe sepsis Pneumonia, Sp Rx Probable UTI, SP Rx -07/25 CXR: Markedly increased right basilar opacity, likely increasing pleural fluid -07/22 CXR: Worsening CHF -u/a wbc 15-20, nit neg, leuk +3; ucx <10k Proteus sp (R Amp, ancef, macrobid ; otherwise), 70-80K S. viridans -07/19 CXR: marked worsening of pleural and parenchymal disease at the right lung base.There is also increasing parenchymal consolidation and atelectasis in the left infrahilar region. -CXR: Perihilar and basilar infiltrates. Findings suspicious for pneumonia. -influenza sc neg -Bcx NTD -sp cx MRSA, C. albicans -legionella ag urine neg R pleural effusion -07/26 SP thoracentesis: Successful ultrasound-guided thoracentesis, yielding 780 milliliters of fluid --Cx NTD -07/26 CXR: Improved right pleural effusion, post thoracentesis. No radiographically evident complication Hypothermia, SP Leukocytosis, SP Acute respiratory failure, sp NRB mask/VEnturi mask Lactic acidosis, SP RAMAN, SP Dm2 HTN non verbal hypothyroidism CVA hx of UTI anemia dementia fdc resident Plan: monitor pt off of AB RX - 07/31 Sp IV Vancomycin #14/ for MRSA PNA -07/26 SP Cefepime #5 -07/22 SP Barbara #4 -07/19 SP Ertapenem #2 -07/18 SP IV Amikacin x1, Levaquin x1 -f/u cx -Monitor CBC/CMP, temperatures -aspiration precautions Thank you for this consultation. Will continue to follow along with you. Subjective Allergies: Coded Allergies: PENICILLINS (Verified Allergy, Unknown, 10/27/18) tolretas cephalosporins Subjective comfortable afebrile nol acute event Objective Vital Signs Last 24 Hour Vital Signs Date Time Temp Pulse Resp B/P (MAP) Pulse Ox O2 Delivery O2 Flow Rate FiO2 08/03/19 08:55 68 133/55 08/03/19 07:00 97 Venturi Mask 6.0 35 08/03/19 07:00 60 22 97 Venturi Mask 6.0 35 08/03/19 04:00 57 08/03/19 04:00 97.2 62 20 144/66 (92) 99 08/03/19 00:00 97.0 56 20 113/57 (75) 95 08/03/19 00:00 55 08/02/19 21:00 Venturi Mask 6.0 08/02/19 20:00 97.0 60 20 115/56 (75) 95 08/02/19 20:00 61 08/02/19 19:34 97 Venturi Mask 6.0 35 08/02/19 19:34 59 22 97 Venturi Mask 6.0 35 08/02/19 17:37 64 08/02/19 17:37 97.5 64 20 137/57 (83) 96 08/02/19 16:00 64 08/02/19 16:00 97.5 64 20 137/57 (83) 96 08/02/19 12:00 60 08/02/19 12:00 97.3 60 20 122/58 (79) 97 Height (Feet): 6 Height (Inches): 1.00 Weight (Pounds): 160 HEENT: anicteric Respiratory/Chest: normal breath sounds Cardiovascular: regular rhythm Abdomen: soft, non tender Laboratory Tests Test 08/03/19 05:30 White Blood Count 6.3 K/UL (4.8-10.8) Red Blood Count 3.49 M/UL (4.70-6.10) L Hemoglobin 8.8 G/DL (14.2-18.0) L Hematocrit 27.6 % (42.0-52.0) L Mean Corpuscular Volume 79 FL (80-99) L Mean Corpuscular Hemoglobin 25.2 PG (27.0-31.0) L Mean Corpuscular Hemoglobin Concent 32.0 G/DL (32.0-36.0) Red Cell Distribution Width 17.1 % (11.6-14.8) H Platelet Count 608 K/UL (150-450) H Mean Platelet Volume 5.8 FL (6.5-10.1) L Neutrophils (%) (Auto) 55.6 % (45.0-75.0) Lymphocytes (%) (Auto) 21.0 % (20.0-45.0) Monocytes (%) (Auto) 12.9 % (1.0-10.0) H Eosinophils (%) (Auto) 8.7 % (0.0-3.0) H Basophils (%) (Auto) 1.8 % (0.0-2.0) Sodium Level 139 MMOL/L (136-145) Potassium Level 4.5 MMOL/L (3.5-5.1) Chloride Level 103 MMOL/L (98-107) Carbon Dioxide Level 25 MMOL/L (21-32) Anion Gap 11 mmol/L (5-15) Blood Urea Nitrogen 33 mg/dL (7-18) H Creatinine 1.4 MG/DL (0.55-1.30) H Estimat Glomerular Filtration Rate 58.3 mL/min (>60) Glucose Level 106 MG/DL (74-106) Calcium Level 9.3 MG/DL (8.5-10.1) Current Medications Medications (Trade) Dose Ordered Sig/Kike Route PRN Reason Start Time Stop Time Status Last Admin Dose Admin Acetaminophen (Tylenol) 650 mg Q4H PRN ORAL fever 07/21/19 05:30 08/17/19 05:29 Albuterol/ Ipratropium (Albuterol/ Ipratropium) 3 ml Q4HRT PRN HHN sob 07/30/19 11:45 08/04/19 11:44 Alprazolam (Xanax) 0.5 mg Q6H PRN ORAL For Anxiety 08/02/19 20:45 08/09/19 20:44 08/03/19 04:19 Amlodipine Besylate (Norvasc) 2.5 mg DAILY NG 07/24/19 09:00 08/23/19 08:59 08/03/19 08:55 Folic Acid (Folate) 2 mg DAILY ORAL 07/21/19 09:00 08/19/19 11:29 08/03/19 08:55 Furosemide (Lasix) 20 mg DAILY IV 07/30/19 09:00 08/29/19 08:59 08/03/19 08:55 Lansoprazole (Prevacid) 30 mg BID NG 07/23/19 18:00 08/22/19 17:59 08/03/19 08:55 Levothyroxine Sodium (Synthroid) 50 mcg DAILY@0630 ORAL 07/21/19 06:30 08/18/19 06:29 08/03/19 06:01 Ondansetron HCl (Zofran) 4 mg Q6H PRN IVP Nausea & Vomiting 07/21/19 08:15 08/17/19 14:14 Polyethylene Glycol (Miralax) 17 gm DAILYPRN PRN ORAL Constipation 07/21/19 05:30 08/17/19 05:29 Quetiapine Fumarate (SEROqueL) 25 mg Q8H PRN ORAL agitation 07/21/19 05:30 08/17/19 05:29 08/03/19 04:19 Alexander Lock MD Aug 03, 2019 09:27
--- NOTE | 2019-08-03 10:05 | NUR ---
*-* DISCHARGE PLANNING *-* PATIENT HAS BEEN REFERRED BACK TO: [facility] P: [phone] F: [phone] Addendum: 08/03/19 at 1528 by CLARK SCHERER PATIENT HAS BEEN ACCEPTED BACK TO: [id number] PENDING OFFICIAL ORDER Addendum: 08/03/19 at 1529 by CLARK SCHERER CM DISREGARD THIS NOTE
[2019-08-03 12:00] VITALS: BP 115/53
--- NOTE | 2019-08-03 12:00 | Pulmonology Progress Note ---
Assessment/Plan Problems: (1) Pulmonary edema (2) Nosocomial pneumonia (3) Pleural effusion Assessment & Plan: thoracentesis done, 780 cc removed (4) Sepsis Assessment & Plan: afebrile, wbc wnl (5) Atrial fibrillation (6) Acute renal failure (7) Acute metabolic encephalopathy (8) Severe anemia (9) Alzheimer's dementia (10) History of CVA (cerebrovascular accident) (11) Diabetes mellitus (12) Hypothyroidism Assessment/Plan pulled the NG tube and was reinserted on nasal cannula more awake failed the swallow study previously, video swallow showed silent aspiration. non-oral feeding. family meeting to decide about plan of care repeat cxr, on Lasix 20 qd, respiratory treatment NG tube in, tolerating well sliding scale f/u renal function Venofer for iron deficiency DVT prophylaxis. Subjective ROS Limited/Unobtainable: No Constitutional: Reports: no symptoms HEENT: Repors: no symptoms Respiratory: Reports: no symptoms Cardiovascular: Reports: no symptoms Gastrointestinal/Abdominal: Reports: no symptoms Allergies: Coded Allergies: PENICILLINS (Verified Allergy, Unknown, 10/27/18) tolretas cephalosporins Objective Last 24 Hour Vital Signs Date Time Temp Pulse Resp B/P (MAP) Pulse Ox O2 Delivery O2 Flow Rate FiO2 08/03/19 09:00 Venturi Mask 6.0 08/03/19 08:55 68 133/55 08/03/19 08:00 98.6 68 20 133/55 (81) 96 08/03/19 08:00 53 08/03/19 07:00 97 Venturi Mask 6.0 35 08/03/19 07:00 60 22 97 Venturi Mask 6.0 35 08/03/19 04:00 57 08/03/19 04:00 97.2 62 20 144/66 (92) 99 08/03/19 00:00 97.0 56 20 113/57 (75) 95 08/03/19 00:00 55 08/02/19 21:00 Venturi Mask 6.0 08/02/19 20:00 97.0 60 20 115/56 (75) 95 08/02/19 20:00 61 08/02/19 19:34 97 Venturi Mask 6.0 35 08/02/19 19:34 59 22 97 Venturi Mask 6.0 35 08/02/19 17:37 64 08/02/19 17:37 97.5 64 20 137/57 (83) 96 08/02/19 16:00 64 08/02/19 16:00 97.5 64 20 137/57 (83) 96 08/02/19 12:00 60 08/02/19 12:00 97.3 60 20 122/58 (79) 97 Intake and Output 08/02/19 08/03/19 19:00 07:00 # Voids 1 3 # Bowel Movements 2 2 General Appearance: WD/WN HEENT: normocephalic, atraumatic Respiratory/Chest: chest wall non-tender, lungs clear Cardiovascular: normal peripheral pulses, normal rate Abdomen: normal bowel sounds, soft, non tender 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 Lymphatic: no neck adenopathy Musculoskeletal: normal muscle bulk Laboratory Tests 08/03/19 05:30: White Blood Count 6.3, Red Blood Count 3.49L, Hemoglobin 8.8L, Hematocrit 27.6L , Mean Corpuscular Volume 79L, Mean Corpuscular Hemoglobin 25.2L, Mean Corpuscular Hemoglobin Concent 32.0, Red Cell Distribution Width 17.1H, Platelet Count 608H, Mean Platelet Volume 5.8L, Neutrophils (%) (Auto) 55.6, Lymphocytes (%) (Auto) 21.0, Monocytes (%) (Auto) 12.9H, Eosinophils (%) (Auto) 8.7H, Basophils (%) (Auto) 1.8, Sodium Level 139, Potassium Level 4.5, Chloride Level 103, Carbon Dioxide Level 25, Anion Gap 11, Blood Urea Nitrogen 33H, Creatinine 1.4H, Estimat Glomerular Filtration Rate 58.3, Glucose Level 106, Calcium Level 9.3 Current Medications Medications (Trade) Dose Ordered Sig/Kike Route PRN Reason Start Time Stop Time Status Last Admin Dose Admin Acetaminophen (Tylenol) 650 mg Q4H PRN ORAL fever 07/21/19 05:30 08/17/19 05:29 Albuterol/ Ipratropium (Albuterol/ Ipratropium) 3 ml Q4HRT PRN HHN sob 07/30/19 11:45 08/04/19 11:44 Alprazolam (Xanax) 0.5 mg Q6H PRN ORAL For Anxiety 08/02/19 20:45 08/09/19 20:44 08/03/19 04:19 Amlodipine Besylate (Norvasc) 2.5 mg DAILY NG 07/24/19 09:00 08/23/19 08:59 08/03/19 08:55 Folic Acid (Folate) 2 mg DAILY ORAL 07/21/19 09:00 08/19/19 11:29 08/03/19 08:55 Furosemide (Lasix) 20 mg DAILY IV 07/30/19 09:00 08/29/19 08:59 08/03/19 08:55 Lansoprazole (Prevacid) 30 mg BID NG 07/23/19 18:00 08/22/19 17:59 08/03/19 08:55 Levothyroxine Sodium (Synthroid) 50 mcg DAILY@0630 ORAL 07/21/19 06:30 08/18/19 06:29 08/03/19 06:01 Ondansetron HCl (Zofran) 4 mg Q6H PRN IVP Nausea & Vomiting 07/21/19 08:15 08/17/19 14:14 Polyethylene Glycol (Miralax) 17 gm DAILYPRN PRN ORAL Constipation 07/21/19 05:30 08/17/19 05:29 Quetiapine Fumarate (SEROqueL) 25 mg Q8H PRN ORAL agitation 07/21/19 05:30 08/17/19 05:29 08/03/19 04:19 Vania Hui MD Aug 03, 2019 12:00
--- NOTE | 2019-08-03 12:38 | Nephrology Progress Note ---
Assessment/Plan Problem List: (1) Acute renal failure (2) Severe anemia (3) Sepsis (4) Diabetes mellitus (5) Hypothyroidism Assessment Alexi Cr lowering 2.6 to 1.8 Sepsis / Pneumonia / UTI / Hypothermia Respiratory failure HypoThyroidism h/o CVA Anemia Dementia Plan DC Hydrate IV iron Phos supplement as needed antibiotics avoid nephrotoxics monitor renal parameters check TFTs- adjust synthroid dose Urine eos per orders Subjective ROS Limited/Unobtainable: No Constitutional: Reports: malaise Objective Objective Last 24 Hour Vital Signs Date Time Temp Pulse Resp B/P (MAP) Pulse Ox O2 Delivery O2 Flow Rate FiO2 08/03/19 09:00 Venturi Mask 6.0 08/03/19 08:55 68 133/55 08/03/19 08:00 98.6 68 20 133/55 (81) 96 08/03/19 08:00 53 08/03/19 07:00 97 Venturi Mask 6.0 35 08/03/19 07:00 60 22 97 Venturi Mask 6.0 35 08/03/19 04:00 57 08/03/19 04:00 97.2 62 20 144/66 (92) 99 08/03/19 00:00 97.0 56 20 113/57 (75) 95 08/03/19 00:00 55 08/02/19 21:00 Venturi Mask 6.0 08/02/19 20:00 97.0 60 20 115/56 (75) 95 08/02/19 20:00 61 08/02/19 19:34 97 Venturi Mask 6.0 35 08/02/19 19:34 59 22 97 Venturi Mask 6.0 35 08/02/19 17:37 64 08/02/19 17:37 97.5 64 20 137/57 (83) 96 08/02/19 16:00 64 08/02/19 16:00 97.5 64 20 137/57 (83) 96 Intake and Output 08/02/19 08/03/19 19:00 07:00 # Voids 1 3 # Bowel Movements 2 2 Laboratory Tests 08/03/19 05:30: White Blood Count 6.3, Red Blood Count 3.49L, Hemoglobin 8.8L, Hematocrit 27.6L , Mean Corpuscular Volume 79L, Mean Corpuscular Hemoglobin 25.2L, Mean Corpuscular Hemoglobin Concent 32.0, Red Cell Distribution Width 17.1H, Platelet Count 608H, Mean Platelet Volume 5.8L, Neutrophils (%) (Auto) 55.6, Lymphocytes (%) (Auto) 21.0, Monocytes (%) (Auto) 12.9H, Eosinophils (%) (Auto) 8.7H, Basophils (%) (Auto) 1.8, Sodium Level 139, Potassium Level 4.5, Chloride Level 103, Carbon Dioxide Level 25, Anion Gap 11, Blood Urea Nitrogen 33H, Creatinine 1.4H, Estimat Glomerular Filtration Rate 58.3, Glucose Level 106, Calcium Level 9.3 Height (Feet): 6 Height (Inches): 1.00 Weight (Pounds): 160 General Appearance: no apparent distress EENT: other - NGT Respiratory/Chest: decreased breath sounds Objective no change Clovis Benites MD Aug 03, 2019 12:38
--- NOTE | 2019-08-03 15:28 | NUR ---
-* DISCHARGE PLANNING *-* PATIENT HAS BEEN REFERRED BACK TO: [facility] P: [phone] F: [phone] PATIENT HAS BEEN ACCEPTED BACK TO: [facility] ROOM# 116-C PENDING OFFICIAL ORDER
--- NOTE | 2019-08-03 15:30 | NUR ---
Spoke to Rosi at [facility]; She confirmed they are nit able to accept Patient today since patient has NGT only for feeding. Dock Builder made aware; Negra will contact Dr. Bah.
[2019-08-03 16:00] VITALS: BP 121/63
[2019-08-03] MEDS ORDERED: XANAX0.5 MG ORAL (16:14)
[2019-08-03] MEDS ORDERED: NORVASC2.5 MG ORAL (16:15)
[2019-08-03] MEDS ORDERED: FOLIC ACID1 MG ORAL (16:16)
[2019-08-03] MEDS ORDERED: FUROSEMIDE20 M1 ORAL (16:16)
[2019-08-03] MEDS ORDERED: PREVACID30 MG ORAL (16:17)
[2019-08-03] MEDS ORDERED: SEROQUEL25 MG ORAL (16:18)
[2019-08-03] MEDS ORDERED: ACETAMINOPHEN325 M1 ORAL (16:19)
--- NOTE | 2019-08-03 17:08 | NUR ---
WEEKLY SWALLOW/SPEECH THERAPY SUMMARY: PATIENT SEEN FOR DYSPHAGIA, SEE SWALLOW EVAL 07/20/19 AND MOD BARIUM SWALLOW STUDY (07/27/19). PATIENT LAST SEEN 07/28/19 WHEN NOT ABLE TO TOLERATE PO TRIALS. PATIENT STILL HAS NGT AND NOT ALERT ENOUGH FOR PO TRIALS. HE TENDS TO PULL OFF HIS 02 MASK. AWAITING GI CONSULT REGARDING LONGER TERM NONORAL FEEDINGS (LIKE PEG). PLAN: CONTINUE WITH ORAL CARE AND NONORAL NGT FEEDINGS FOR NOW. CONTINUE TO SEE PATIENT WHEN ALERT. PER RN, STOREPERSON TRYING TO HAVE DR JIMÉNEZ CALL GI FOR A CONSULT GIVEN PATIENT NOT ABLE TO SAFELY TAKE PO AT THIS TIME. CLEAN OUT DRILLER HELPER ALSO LEFT MESSAGE FOR DR JIMNÉEZ. CLEAN OUT DRILLER HELPER LEFT MESSAGE WITH NIGLADIS TO FIND OUT IF SHE IS RECEPTIVE TO PEG SINCE POLST DID NOT SPECIFY HELICOPTER PILOT TUBE FEEDING PREFERENCES. D/W RN RO AND STOREPERSON, CRIS
--- NOTE | 2019-08-03 17:25 | NUR ---
NURSE NOTES: PER [employer] INTEGRATION SENIOR MANAGER AND BELGICA (), PATIENT WILL NOT BE DISCHARGED TO [facility]. PATIENT HAS NG-TUBE. PER BELGICA SHE WILL BE TALKING TO THE PATIENT'S NIECE AND HAS CONTACTED DR DIAZ AND DR JIMÉNEZ FOR GI CONSULT. LAURA CONTINUE TO MONITOR PATIENT.
--- NOTE | 2019-08-03 18:28 | NUR ---
NURSE NOTES: Stella MACHADO informed that Dr. Rosario and Isrrael will see the patient tomorrow.
--- NOTE | 2019-08-03 19:13 | NUR ---
HAND-OFF: Report given to Alexis QUINN. Endorsed the plan of care.
[2019-08-03 20:00] VITALS: BP 127/57
--- NOTE | 2019-08-03 20:41 | Cardiology Progress Note ---
Assessment/Plan Assessment/Plan 1. Toxic metabolic encephalopathy. 2. Pneumonia. 3. Respiratory insufficiency. 4. Dementia. 5. Hypernatremia. 6. History of CVA. 7. History of hypertension. 8. History of diabetes mellitus. 9. History of hypothyroidism. tele reviewed sinus alexandra cxr reviewed personally bilat infiltrates on oxygen on pulm treatment has self partially removed ngt rn notified feedign held , restraints ordered to prevent removal of tube and iv cv ok to med-surg if ok with dr pena from pulm view point as well Subjective ROS Limited/Unobtainable: Yes Objective Last 24 Hour Vital Signs Date Time Temp Pulse Resp B/P (MAP) Pulse Ox O2 Delivery O2 Flow Rate FiO2 08/03/19 16:00 52 08/03/19 16:00 97.5 52 18 121/63 (82) 99 08/03/19 12:00 98.7 53 20 115/53 (73) 97 08/03/19 12:00 53 08/03/19 09:00 Venturi Mask 6.0 08/03/19 08:55 68 133/55 08/03/19 08:00 98.6 68 20 133/55 (81) 96 08/03/19 08:00 53 08/03/19 07:00 97 Venturi Mask 6.0 35 08/03/19 07:00 60 22 97 Venturi Mask 6.0 35 08/03/19 04:00 57 08/03/19 04:00 97.2 62 20 144/66 (92) 99 08/03/19 00:00 97.0 56 20 113/57 (75) 95 08/03/19 00:00 55 08/02/19 21:00 Venturi Mask 6.0 General Appearance: no apparent distress Intake and Output 08/02/19 08/03/19 19:00 07:00 # Voids 1 3 # Bowel Movements 2 2 Laboratory Tests Test 08/03/19 05:30 White Blood Count 6.3 K/UL (4.8-10.8) Red Blood Count 3.49 M/UL (4.70-6.10) L Hemoglobin 8.8 G/DL (14.2-18.0) L Hematocrit 27.6 % (42.0-52.0) L Mean Corpuscular Volume 79 FL (80-99) L Mean Corpuscular Hemoglobin 25.2 PG (27.0-31.0) L Mean Corpuscular Hemoglobin Concent 32.0 G/DL (32.0-36.0) Red Cell Distribution Width 17.1 % (11.6-14.8) H Platelet Count 608 K/UL (150-450) H Mean Platelet Volume 5.8 FL (6.5-10.1) L Neutrophils (%) (Auto) 55.6 % (45.0-75.0) Lymphocytes (%) (Auto) 21.0 % (20.0-45.0) Monocytes (%) (Auto) 12.9 % (1.0-10.0) H Eosinophils (%) (Auto) 8.7 % (0.0-3.0) H Basophils (%) (Auto) 1.8 % (0.0-2.0) Sodium Level 139 MMOL/L (136-145) Potassium Level 4.5 MMOL/L (3.5-5.1) Chloride Level 103 MMOL/L (98-107) Carbon Dioxide Level 25 MMOL/L (21-32) Anion Gap 11 mmol/L (5-15) Blood Urea Nitrogen 33 mg/dL (7-18) H Creatinine 1.4 MG/DL (0.55-1.30) H Estimat Glomerular Filtration Rate 58.3 mL/min (>60) Glucose Level 106 MG/DL (74-106) Calcium Level 9.3 MG/DL (8.5-10.1) Juarez Fletcher MD Aug 03, 2019 20:41
[2019-08-04] VITALS: BP 148/61
[2019-08-04 04:00] VITALS: BP 150/70
[2019-08-04] MEDS: ALPRAZolam 0.5mg tab ORAL PRN (04:29)
--- NOTE | 2019-08-04 07:16 | NUR ---
HAND-OFF: Report given to Barb QUINN.
--- NOTE | 2019-08-04 07:20 | NUR ---
NURSE NOTES: PT in bed resting, continued cardiac monitoring, no signs of cardiac or respiratory distress at this time. 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 Bed is locked and in lowest position. Call light within reach. will continue to turn pt q 2 hrs, pt was admitted with multiple wound issues.
[2019-08-04 08:00] VITALS: BP 119/51
--- NOTE | 2019-08-04 10:01 | NUR ---
ST NOTES: SWALLOW STATUS: PATIENT WAKES UP ONLY FOR A FEW SECONDS AND THEN FALLS ASLEEP. HE HAS NOT BEEN ALERT ENOUGH FOR PO TRIALS AND DYSPHAGIA TX. PER RN NOTES, WHEN PATIENT GETS AGITATED, RESTLESS, SCREAMS, AND STARTS TO PULL LINES, HE IS GIVEN SEROQUEL AND SOMETIMES XANAX IS ADDED. THE PATIENT WILL SEE GI TODAY REGARDING POSSIBLE PEG PLACEMENT IF HIS NIECE, JEN, IS RECEPTIVE. HE HAS A H/O CVA AND SOME DEMENTIA (NOT ADVANCED MORE MILD/MODERATE HE WAS ABLE TO EXPRESS HIS NEEDS IN SENTENCES AND SAY HE WANTED TO EAT BY MOUTH. HE HAS BEEN HERE SINCE 07/18 AND HAD SEPSIS, SIGNIFICANT RESPIRATORY PROBLEMS (HAD THORACENTESIS AND STILL REQUIRES VENTURI-MASK 6 LITERS (RESP RATE 18 BPM GOOD SATS IN THE 95-100, Fi02 35%), AND PNA LIKELY ASPIRATION RELATED FROM HIS PRIOR DYSPHAGIA ([facility] LIQU[facility]). WHEN HE IS AGITATED, RESTLESS, SCREAMING, AND PULLS LINES) HE HAS BEEN GIVEN SEROQUEL AND SOMETIMES XANAX AT THE SAME TIME TO CALM HIM DOWN. IN ADDITION, HE REQUIRES WRIST RESTRAINTS. LEFT MESSAGE WITH HIS FAMILY TO CALL IF SHE HAD QUESTIONS ABOUT PO INTAKE AND NONORAL FEEDING NEEDS. STAFF EDUCATED/TRAINED IN ORAL CARE (TO REDUCED BACTERIA BUILDUP) AND POSTED ASPIRATION PRECAUTIONS WHEN FEEDINGS ARE RUNNING. PLAN: CONTINUE WITH ORAL CARE AND ASP PRECAUTIONS. F/UP WITH SKILLED DYSPHAGIA MANAGEMENT AND TX ONLY WHEN MORE ALERT Addendum: 08/04/19 at 1004 by MARIE GIPSON APPLICATIONS DEVELOPMENT CONSULTANT SPOKE TO STAFF (RNs AND JULIA) AND FAMILY ABOUT THE PATIENT NEEDING NONORAL LONG-TERM FEEDINGS AND GI CONSULT LAST NIGHT.
[2019-08-04] MEDS: Docusate 100mg cap ORAL SCH ×2 (10:51→17:27)
--- NOTE | 2019-08-04 11:35 | Nephrology Progress Note ---
Assessment/Plan Problem List: (1) Acute renal failure (2) Severe anemia (3) Sepsis (4) Diabetes mellitus (5) Hypothyroidism Assessment Alexi Cr lowering 2.6 to 1.8 Sepsis / Pneumonia / UTI / Hypothermia Respiratory failure HypoThyroidism h/o CVA Anemia Dementia Plan DC Hydrate IV iron Phos supplement as needed antibiotics avoid nephrotoxics monitor renal parameters check TFTs- adjust synthroid dose Urine eos per orders Subjective ROS Limited/Unobtainable: No Constitutional: Reports: malaise Objective Objective Last 24 Hour Vital Signs Date Time Temp Pulse Resp B/P (MAP) Pulse Ox O2 Delivery O2 Flow Rate FiO2 08/04/19 10:51 55 119/51 08/04/19 09:51 55 20 98 Venturi Mask 4.0 30 08/04/19 09:51 98 Venturi Mask 4.0 30 08/04/19 08:00 97.5 57 22 119/51 (73) 93 08/04/19 04:00 97.0 70 20 150/70 (96) 96 08/04/19 04:00 63 08/04/19 00:00 97.0 55 20 148/61 (90) 99 08/04/19 00:00 53 08/03/19 21:00 Venturi Mask 6.0 08/03/19 20:32 98 Venturi Mask 6.0 35 08/03/19 20:32 54 18 98 Venturi Mask 6.0 35 08/03/19 20:00 97.0 52 20 127/57 (80) 96 08/03/19 20:00 52 08/03/19 16:00 52 08/03/19 16:00 97.5 52 18 121/63 (82) 99 08/03/19 12:00 98.7 53 20 115/53 (73) 97 08/03/19 12:00 53 Intake and Output 08/03/19 08/04/19 19:00 07:00 Intake Total 115 ml Balance 115 ml Free Water 50 ml Tube Feeding 65 ml # Voids 3 3 # Bowel Movements 1 2 Height (Feet): 6 Height (Inches): 1.00 Weight (Pounds): 160 General Appearance: no apparent distress Cardiovascular: bradycardia Respiratory/Chest: decreased breath sounds Abdomen: soft Objective no change Clovis Benites MD Aug 04, 2019 11:35
--- NOTE | 2019-08-04 11:39 | GI Initial Consult Note ---
History of Present Illness General Date patient seen: Aug 04, 2019 Time patient seen: 11:31 Reason for Hospitalization: General Complaint Referring physician: PADMINI GILMORE Reason for Consultation: PEG EVALUATION Present Illness HPI Patient is an 84-year-old male past medical history of encephalopathy, muscle weakness, diabetes, hypertension, hypothyroidism, CVA, UTI, anemia, dementia who was sent here from his extended care facility for third mental status. Patient was brought in by EMS. Patient is non-verbal at this time and therefore history is limited. GI consulted for PEG evaluation. ROS limited, patient with history of dementia nonverbal at this time unable to provide any review of systems. Patient was seen, no apparent distress currently on 10 L Venturi mask Venturi mask 10 L. The patient currently has a nasogastric tube patient currently has nasogastric tube feedings running. The patient was seen by speech therapist multiple times throughout his admission in which she was not able to tolerate any p.o. trials. The patient had a video swallow study performed on July 27, 2019 noted patient is a high risk for inadequate p.o. intake and chronic trace aspiration with all consistencies given. Recommendation for nonoral feedings and oral care at this time until patient is more receptive to training. Laboratory review significant for hemoglobin 8.8, hematocrit 27.9, platelet 608, creatinine 1.4, albumin 1.9, no transaminitis, stool occult blood negative. Unknown history of endoscopic and colonoscopy. Home Meds Active Scripts Quetiapine Fumarate* (SEROQUEL*) 25 Mg Tablet, 25 MG ORAL Q8H PRN for 30 Days, TAB Prov:Vania Hui MD 10/29/18 Mirtazapine* (MIRTAZAPINE*) 15 Mg Tablet, 7.5 MG ORAL BEDTIME for 30 Days, TAB Prov:Vania Hui MD 10/29/18 Levothyroxine Sodium* (SYNTHROID*) 25 Mcg Tablet, 25 MCG ORAL DAILY@0630 for 30 Days, TAB Take in the morning on an empty stomach, at least 30 minutes before food. Prov:Vania Hui MD 10/29/18 Reported Medications Acetaminophen* (ACETAMINOPHEN 325MG TABLET*) 325 Mg Tablet, 650 MG ORAL Q6H PRN for For Pain Level <=5, TAB 08/03/19 Quetiapine Fumarate* (SEROQUEL*) 25 Mg Tablet, 25 MG ORAL THREE TIMES A DAY for agitation, TAB 08/03/19 Lansoprazole* (PREVACID*) 30 Mg Capsule.dr, 30 MG ORAL DAILY for dyspepsia, CAP 08/03/19 Folic Acid* (FOLIC ACID*) 1 Mg Tablet, 2 MG ORAL DAILY for vitamin, TAB 08/03/19 Furosemide* (LASIX*) 20 Mg Tablet, 20 MG ORAL DAILY for diuretic, TAB 08/03/19 Amlodipine Besylate (Norvasc) 2.5 Mg Tablet, 2.5 MG ORAL DAILY for hypertension , TAB 08/03/19 Alprazolam* (XANAX*) 0.5 Mg Tablet, 0.5 MG ORAL EVERY 6 HOURS PRN for For Anxiety, TAB 08/03/19 Mirtazapine* (REMERON*) 15 Mg Tablet, 15 MG ORAL BEDTIME, TAB 11/19/18 Med list reviewed/reconciled: Yes Allergies: Coded Allergies: PENICILLINS (Verified Allergy, Unknown, 10/27/18) tolretas cephalosporins Patient History Limited by: medical condition History Provided By: Medical Record PMH Narrative Limited by: other - nonverbal Reviewed Nursing Documentation: PMH: Agreed; PSxH: Agreed Nursing Documentation-PMH Hx Cardiac Problems: Yes Hx Hypertension: Yes Hx Diabetes: Yes Hx Cancer: No Hx Gastrointestinal Problems: No Hx Neurological Problems: Yes Hx Cerebrovascular Accident: Yes Social History: Denies: smoking, alcohol use, drug use, other Review of Systems All Other Systems: limited Physical Exam Vital Signs Date Time Temp Pulse Resp B/P (MAP) Pulse Ox O2 Delivery O2 Flow Rate FiO2 07/31/19 07:54 100 Venturi Mask 6.0 35 07/31/19 07:54 65 18 07/31/19 08:00 97.8 130/52 (78) Sp02 EP Interpretation: reviewed, normal General Appearance: well appearing, no apparent distress, alert Head: normocephalic EENT: PERRL/EOMI, normal ENT inspection Neck: supple Respiratory: normal breath sounds, no respiratory distress Cardiovascular: normal rate Gastrointestinal: normal inspection, non tender, soft, normal bowel sounds, non -distended Rectal: deferred Genitourinary: deferred Musculoskeletal: normal inspection Neurologic: alert, responsive, normal inspection Skin: normal inspection, normal color, no rash, warm/dry, palpation normal, well hydrated Lymphatic: normal inspection, no adenopathy Current Medications Current Medications Medications (Trade) Dose Ordered Sig/Kike Route PRN Reason Start Time Stop Time Status Last Admin Dose Admin Acetaminophen (Tylenol) 650 mg Q4H PRN ORAL fever 07/21/19 05:30 08/17/19 05:29 Albuterol/ Ipratropium (Albuterol/ Ipratropium) 3 ml Q4HRT PRN HHN sob 07/30/19 11:45 08/04/19 11:44 Alprazolam (Xanax) 0.5 mg Q6H PRN ORAL For Anxiety 08/02/19 20:45 08/09/19 20:44 08/04/19 04:29 Amlodipine Besylate (Norvasc) 2.5 mg DAILY NG 07/24/19 09:00 08/23/19 08:59 08/04/19 10:51 Docusate Sodium (Colace) 100 mg TWICE A DAY ORAL 08/04/19 09:00 09/03/19 08:59 08/04/19 10:51 Folic Acid (Folate) 2 mg DAILY ORAL 07/21/19 09:00 08/19/19 11:29 08/04/19 10:52 Furosemide (Lasix) 20 mg DAILY IV 07/30/19 09:00 08/29/19 08:59 08/04/19 10:51 Lansoprazole (Prevacid) 30 mg BID NG 07/23/19 18:00 08/22/19 17:59 08/04/19 10:52 Levothyroxine Sodium (Synthroid) 50 mcg DAILY@0630 ORAL 07/21/19 06:30 08/18/19 06:29 08/04/19 06:33 Ondansetron HCl (Zofran) 4 mg Q6H PRN IVP Nausea & Vomiting 07/21/19 08:15 08/17/19 14:14 Polyethylene Glycol (Miralax) 17 gm DAILYPRN PRN ORAL Constipation 07/21/19 05:30 08/17/19 05:29 Quetiapine Fumarate (SEROqueL) 25 mg Q8H PRN ORAL agitation 07/21/19 05:30 08/17/19 05:29 08/04/19 04:29 GI: Plan Problems: (1) Sarcopenia (2) Encounter for PEG (percutaneous endoscopic gastrostomy) (3) Failure to thrive (4) Dehydration (5) Anemia (6) Hypoalbuminemia (7) Severe malnutrition (8) Alzheimer's dementia (9) Acute renal failure Plan Plan for PEG when respiratory status stabilizes. - Niece had consented to procedure. We will tentatively place patient n.p.o. at midnight for possible PEG tomorrow Hold all blood thinners tonight Anemia work-up reviewed>> iron deficient, occult blood stool negative As needed transfusions ppi NGTFs electrolyte correction Will follow with additional recommendations post procedure Discussed with Dr. Rosario. Thank you for this patient referral, we will follow. The patient was seen and examined at bedside and all new and available data was reviewed in the patients chart. I agree with the above findings, impression and plan. (Patient seen earlier today. Signature stamp does not reflect patient encounter time.). - MD [facility] FURNACE MASON Aug 04, 2019 11:39
[2019-08-04 12:00] VITALS: BP 127/55
--- NOTE | 2019-08-04 13:33 | Diagnostic Imaging Report ---
Indication: Post nasogastric tube placement Technique: Supine view of the upper abdomen Comparison: 08/02/2019 Findings: There is a nasogastric tube coiled in the gastric fundus and body. There is a right upper quadrant surgical clip. Bowel gas pattern is unremarkable. Impression: Satisfactory nasogastric intubation
--- NOTE | 2019-08-04 15:18 | Infectious Diseases Prog Note ---
Assessment/Plan Assessment/Plan Assessment: Severe sepsis Pneumonia, Sp Rx Probable UTI, SP Rx -07/25 CXR: Markedly increased right basilar opacity, likely increasing pleural fluid -07/22 CXR: Worsening CHF -u/a wbc 15-20, nit neg, leuk +3; ucx <10k Proteus sp (R Amp, ancef, macrobid ; otherwise), 70-80K S. viridans -07/19 CXR: marked worsening of pleural and parenchymal disease at the right lung base.There is also increasing parenchymal consolidation and atelectasis in the left infrahilar region. -CXR: Perihilar and basilar infiltrates. Findings suspicious for pneumonia. -influenza sc neg -Bcx NTD -sp cx MRSA, C. albicans -legionella ag urine neg R pleural effusion -07/26 SP thoracentesis: Successful ultrasound-guided thoracentesis, yielding 780 milliliters of fluid --Cx NTD -07/26 CXR: Improved right pleural effusion, post thoracentesis. 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 non-oral feeding. Thank you for this consultation. Will continue to follow along with you. Subjective Allergies: Coded Allergies: PENICILLINS (Verified Allergy, Unknown, 10/27/18) tolretas cephalosporins Subjective comfortable afebrile Objective Vital Signs Last 24 Hour Vital Signs Date Time Temp Pulse Resp B/P (MAP) Pulse Ox O2 Delivery O2 Flow Rate FiO2 08/04/19 12:00 Venturi Mask 6.0 08/04/19 10:51 55 119/51 08/04/19 09:51 55 20 98 Venturi Mask 4.0 30 08/04/19 09:51 98 Venturi Mask 4.0 30 08/04/19 08:00 60 08/04/19 08:00 97.5 57 22 119/51 (73) 93 08/04/19 04:00 97.0 70 20 150/70 (96) 96 08/04/19 04:00 63 08/04/19 00:00 97.0 55 20 148/61 (90) 99 08/04/19 00:00 53 08/03/19 21:00 Venturi Mask 6.0 08/03/19 20:32 98 Venturi Mask 6.0 35 08/03/19 20:32 54 18 98 Venturi Mask 6.0 35 08/03/19 20:00 97.0 52 20 127/57 (80) 96 08/03/19 20:00 52 08/03/19 16:00 52 08/03/19 16:00 97.5 52 18 121/63 (82) 99 Height (Feet): 6 Height (Inches): 1.00 Weight (Pounds): 160 HEENT: anicteric Respiratory/Chest: normal breath sounds Cardiovascular: regularly irregular Abdomen: no organomegaly Current Medications Medications (Trade) Dose Ordered Sig/Kike Route PRN Reason Start Time Stop Time Status Last Admin Dose Admin Acetaminophen (Tylenol) 650 mg Q4H PRN ORAL fever 07/21/19 05:30 08/17/19 05:29 Alprazolam (Xanax) 0.5 mg Q6H PRN ORAL For Anxiety 08/02/19 20:45 08/09/19 20:44 08/04/19 04:29 Amlodipine Besylate (Norvasc) 2.5 mg DAILY NG 07/24/19 09:00 08/23/19 08:59 08/04/19 10:51 Docusate Sodium (Colace) 100 mg TWICE A DAY ORAL 08/04/19 09:00 09/03/19 08:59 08/04/19 10:51 Folic Acid (Folate) 2 mg DAILY ORAL 07/21/19 09:00 08/19/19 11:29 08/04/19 10:52 Furosemide (Lasix) 20 mg DAILY IV 07/30/19 09:00 08/29/19 08:59 08/04/19 10:51 Lansoprazole (Prevacid) 30 mg BID NG 07/23/19 18:00 08/22/19 17:59 08/04/19 10:52 Levothyroxine Sodium (Synthroid) 50 mcg DAILY@0630 ORAL 07/21/19 06:30 08/18/19 06:29 08/04/19 06:33 Ondansetron HCl (Zofran) 4 mg Q6H PRN IVP Nausea & Vomiting 07/21/19 08:15 08/17/19 14:14 Polyethylene Glycol (Miralax) 17 gm DAILYPRN PRN ORAL Constipation 07/21/19 05:30 08/17/19 05:29 Quetiapine Fumarate (SEROqueL) 25 mg Q8H PRN ORAL agitation 07/21/19 05:30 08/17/19 05:29 08/04/19 04:29 Alexander Lock MD Aug 04, 2019 15:18
--- NOTE | 2019-08-04 15:30 | NUR ---
NURSE NOTES: L/M to get consent for tomorrow's peg placement. Waiting for call back.
[2019-08-04 16:00] VITALS: BP 99/42
--- NOTE | 2019-08-04 16:39 | NUR ---
INSURANCE CLINICALS AND REVIEWS FAXED TO [facility] P- [phone] F- [phone]...REVIEW/CLINICAL
--- NOTE | 2019-08-04 17:45 | NUR ---
NURSE NOTES: Left another message for family member requesting consent for peg placement tomorrow. Doctor Aubrey and Barrett have been notified that there is no signed consent yet. Pt is no longer on ventury mask, he is now 4L nasal canula will continue to monitor pt.
--- NOTE | 2019-08-04 18:06 | Internal Med Progress Note ---
Subjective Date of Service: Aug 04, 2019 Physician Name Xander Bah Attending Physician Lamont Hayes MD Current Medications Medications (Trade) Dose Ordered Sig/Kike Route PRN Reason Start Time Stop Time Status Last Admin Dose Admin Acetaminophen (Tylenol) 650 mg Q4H PRN ORAL fever 07/21/19 05:30 08/17/19 05:29 Alprazolam (Xanax) 0.5 mg Q6H PRN ORAL For Anxiety 08/02/19 20:45 08/09/19 20:44 08/04/19 04:29 Amlodipine Besylate (Norvasc) 2.5 mg DAILY NG 07/24/19 09:00 08/23/19 08:59 08/04/19 10:51 Docusate Sodium (Colace) 100 mg TWICE A DAY ORAL 08/04/19 09:00 09/03/19 08:59 08/04/19 17:27 Folic Acid (Folate) 2 mg DAILY ORAL 07/21/19 09:00 08/19/19 11:29 08/04/19 10:52 Furosemide (Lasix) 20 mg DAILY IV 07/30/19 09:00 08/29/19 08:59 08/04/19 10:51 Lansoprazole (Prevacid) 30 mg BID NG 07/23/19 18:00 08/22/19 17:59 08/04/19 17:27 Levothyroxine Sodium (Synthroid) 50 mcg DAILY@0630 ORAL 07/21/19 06:30 08/18/19 06:29 08/04/19 06:33 Ondansetron HCl (Zofran) 4 mg Q6H PRN IVP Nausea & Vomiting 07/21/19 08:15 08/17/19 14:14 Polyethylene Glycol (Miralax) 17 gm DAILYPRN PRN ORAL Constipation 07/21/19 05:30 08/17/19 05:29 Quetiapine Fumarate (SEROqueL) 25 mg Q8H PRN ORAL agitation 07/21/19 05:30 08/17/19 05:29 08/04/19 04:29 Allergies: Coded Allergies: PENICILLINS (Verified Allergy, Unknown, 10/27/18) tolretas cephalosporins ROS Limited/Unobtainable: Yes Subjective 84 YO M admitted with altered mental status. Now pneumonia and severe sepsis. Cover for Int Med-Dr Hayes. Objective Last Vital Signs Date Time Temp Pulse Resp B/P (MAP) Pulse Ox O2 Delivery O2 Flow Rate FiO2 08/04/19 16:00 97.5 49 20 99/42 (61) 95 08/04/19 12:00 Venturi Mask 6.0 08/04/19 09:51 30 Intake and Output 08/03/19 08/04/19 19:00 07:00 Intake Total 115 ml Balance 115 ml Free Water 50 ml Tube Feeding 65 ml # Voids 3 3 # Bowel Movements 1 2 Objective PHYSICAL EXAMINATION: GENERAL: The patient is a well-developed, well-nourished, thin-appearing male, who is in moderate respiratory distress. HEENT: Eyes, pupils are equal and responsive to light and accommodation. Extraocular movements are intact. NECK: Supple without lymphadenopathy. CHEST: Venturi mask; Lungs with bilateral wheezes and rhonchi; breath sounds decreased at bases CARDIOVASCULAR: Regular rhythm and rate. S1 and S2 are normal without murmurs, rubs, or gallops. ABDOMEN: Soft, nontender, and nondistended. Positive bowel sounds. No evidence of hepatosplenomegaly. Currently, no rebound or guarding noted. EXTREMITIES: Negative for clubbing, cyanosis, or edema. RECTAL/GENITAL: Not performed. NEUROLOGIC: Cranial nerves II through XII are grossly intact without focal deficits. Motor strength is 5/5 bilaterally. Deep tendon reflexes are 2+ plantar. Assessment/Plan Assessment/Plan ASSESSMENT: This is an 84-year-old male. 1. Bilateral pneumonia. 2. Respiratory failure. 3. Probable sepsis. 4. Altered mental status. 5. Diabetes type 2. 6. Hypothyroidism. 7. Cerebrovascular disease. 8. Acute renal failure. 9. Leukocytosis 10. Hypernatremia 11. Right pleural effusion TREATMENT: 1. Respiratory failure/bilateral pneumonia. A Pulmonary consultation has been obtained with Dr. Vania Hui. The patient is currently admitted to the intensive care unit. The patient is currently on a venturi mask. The patient has been started empirically on vancomycin and ertapenem. A sputum culture =MRSA. ABX=vanco per ID=Dr Roach 2. Altered mental status. This is probably secondary to hypoxia secondary to pneumonia as above. 3. Diabetes type 2. The patient was admitted without antihyperglycemic medication. 4. Hypothyroidism. Continue Levoxyl as above. 5. Cerebrovascular disease. The patient is status post cerebrovascular accident. 6. Acute renal failure. This may be secondary to acute dehydration. The patient is currently receiving intravenous fluids. 7. Severe Sepsis. ABX=vanco . ID=Dr Matias 8. S/P right thoracentesis 07/26/19 9. Discharge to [facility] today Xander Bah MD Aug 04, 2019 18:06
--- NOTE | 2019-08-04 19:10 | Cardiology Progress Note ---
Assessment/Plan Assessment/Plan 1. Toxic metabolic encephalopathy. 2. Pneumonia. 3. Respiratory insufficiency. 4. Dementia. 5. Hypernatremia. 6. History of CVA. 7. History of hypertension. 8. History of diabetes mellitus. 9. History of hypothyroidism. tele reviewed sinus alexandra on oxygen on pulm treatment cv ok to med-surg if ok with dr pena from pulm view point as well Subjective ROS Limited/Unobtainable: Yes Objective Last 24 Hour Vital Signs Date Time Temp Pulse Resp B/P (MAP) Pulse Ox O2 Delivery O2 Flow Rate FiO2 08/04/19 16:00 97.5 49 20 99/42 (61) 95 08/04/19 12:00 52 08/04/19 12:00 97.5 59 22 127/55 (79) 95 08/04/19 12:00 Venturi Mask 6.0 08/04/19 10:51 55 119/51 08/04/19 09:51 55 20 98 Venturi Mask 4.0 30 08/04/19 09:51 98 Venturi Mask 4.0 30 08/04/19 08:00 60 08/04/19 08:00 97.5 57 22 119/51 (73) 93 08/04/19 04:00 97.0 70 20 150/70 (96) 96 08/04/19 04:00 63 08/04/19 00:00 97.0 55 20 148/61 (90) 99 08/04/19 00:00 53 08/03/19 21:00 Venturi Mask 6.0 08/03/19 20:32 98 Venturi Mask 6.0 35 08/03/19 20:32 54 18 98 Venturi Mask 6.0 35 08/03/19 20:00 97.0 52 20 127/57 (80) 96 08/03/19 20:00 52 General Appearance: no apparent distress Neck: supple Cardiovascular: normal rate Respiratory/Chest: lungs clear Abdomen: normal bowel sounds, non tender, soft Extremities: no swelling Intake and Output 08/03/19 08/04/19 19:00 07:00 Intake Total 115 ml Balance 115 ml Free Water 50 ml Tube Feeding 65 ml # Voids 3 3 # Bowel Movements 1 2 Juarez Fletcher MD Aug 04, 2019 19:10
--- NOTE | 2019-08-04 19:30 | NUR ---
HAND-OFF: Report given to Galo/KAI, pt in stable condition had a Manas episode earlier in the day, reported it to Dr. Fletcher, no new orders given. Pt scheduled for peg placement tomorrow still waiting for family cosent. Start pt NPO from midnight.
--- NOTE | 2019-08-04 19:31 | NUR ---
NURSE NOTES: Received pt from KAI Day. PT in bed resting, with HOB elevated to high fowlers position, nasal cannula on 4L. Pt is no NG tube feeding glucerna 1.2 @65ml pt, intact and patent in Right nare. Bed is locked and in lowest position, bed alarm on, Call light within reach. Off loaded with pillows. will continue with plan of care.
[2019-08-04 20:00] VITALS: BP 112/48
--- NOTE | 2019-08-04 20:03 | NUR ---
NURSE NOTES: Called family member seeking consent for PEG procedure tomorrow. Nobody answered, left message to call back.
[2019-08-05] VITALS: BP 119/56
[2019-08-05 04:00] VITALS: BP 114/61
[2019-08-05 05:19] LABS: BASOPHILS % (AUTO) 1.6 % (0.0-2.0); EOSINOPHILS % (AUTO) 9.3 % (0.0-3.0); HEMATOCRIT 29.4 % (42.0-52.0); HEMOGLOBIN 9.4 G/DL (14.2-18.0); LYMPHOCYTES % (AUTO) 28.8 % (20.0-45.0); MEAN CORPUSCULAR VOLUME 79 FL (80-99); MONOCYTES % (AUTO) 9.1 % (1.0-10.0); NEUTROPHILS % (AUTO) 51.3 % (45.0-75.0); PLATELET COUNT 655 K/UL (150-450); RED BLOOD COUNT 3.74 M/UL (4.70-6.10); RED CELL DISTRIBUTION WIDTH 16.4 % (11.6-14.8); WHITE BLOOD COUNT 5.5 K/UL (4.8-10.8)
[2019-08-05 05:28] LABS: ANION GAP 10 mmol/L (5-15); BLOOD UREA NITROGEN 40 mg/dL (7-18); CALCIUM 9.5 MG/DL (8.5-10.1); CARBON DIOXIDE 29 MMOL/L (21-32); CHLORIDE 104 MMOL/L (98-107); CREATININE 1.3 MG/DL (0.55-1.30); SODIUM 143 MMOL/L (136-145)
[2019-08-05 05:33] LABS: ALANINE AMINOTRANSFERASE 25 U/L (12-78); ALBUMIN 2.1 G/DL (3.4-5.0); ALBUMIN/GLOBULIN RATIO 0.3 (1.0-2.7); ALKALINE PHOSPHATASE 116 U/L (46-116); ASPARTATE AMINO TRANSFERASE 27 U/L (15-37); BILIRUBIN,TOTAL 0.2 MG/DL (0.2-1.0)
--- NOTE | 2019-08-05 07:29 | NUR ---
HAND-OFF: Report given to AKI Day. Pt is awake and resting in bed in no acute distress., with HOB elevated, heels off loaded. Iv site intact and patent. Bed locked in lowest position, bed alarm on, call light within reach. Ng tube intact, on hold per diet. Bilateral soft wrist restraints on, with two finger length gap, pulse palpated. Endorsed plan of care.
--- NOTE | 2019-08-05 07:30 | NUR ---
NURSE NOTES: Pt is awake and resting in bed in no acute distress., continued youth nutritional monitor. HOB elevated, heels off loaded. Iv site intact and patent. Bed locked in lowest position, bed alarm on, call light within reach. Ng tube intact. Pt NPO for Peg placement, family has not responded to give verbal over the ph consent: L/M for family a few times already. is aware there is no consent for procedure yet. Bilateral soft wrist restraints on, with two finger length gap, pulse palpated. Will continue to monitor pt and follow plans of care.
--- NOTE | 2019-08-05 07:45 | NUR ---
NURSE NOTES: notified doctor Aubrey about not having consent for procedure, pt glucose this morning 84 pt is NPO from NG feeding, doct aware.
[2019-08-05 08:00] VITALS: BP 107/45
--- NOTE | 2019-08-05 09:52 | Nephrology Progress Note ---
Assessment/Plan Problem List: (1) Acute renal failure (2) Severe anemia (3) Sepsis (4) Diabetes mellitus (5) Hypothyroidism Assessment Alexi Cr lowering 2.6 to 1.8 Sepsis / Pneumonia / UTI / Hypothermia Respiratory failure HypoThyroidism h/o CVA Anemia Dementia Plan DC Hydrate IV iron Phos supplement as needed antibiotics avoid nephrotoxics monitor renal parameters check TFTs- adjust synthroid dose Urine eos per orders Subjective ROS Limited/Unobtainable: No Constitutional: Reports: malaise, weakness Objective Objective Last 24 Hour Vital Signs Date Time Temp Pulse Resp B/P (MAP) Pulse Ox O2 Delivery O2 Flow Rate FiO2 08/05/19 08:20 93 Nasal Cannula 4.0 36 08/05/19 08:20 123 20 93 Nasal Cannula 4.0 36 08/05/19 08:00 97.9 59 20 107/45 (65) 93 08/05/19 04:00 97.7 60 18 114/61 (78) 95 08/05/19 04:00 60 08/05/19 00:00 56 08/05/19 00:00 97.9 56 18 119/56 (77) 97 08/04/19 21:00 Venturi Mask 6.0 08/04/19 20:00 53 08/04/19 20:00 98.0 53 18 112/48 (69) 96 08/04/19 19:54 98 Venturi Mask 4.0 30 08/04/19 19:54 56 18 98 Venturi Mask 4.0 30 08/04/19 16:00 97.5 49 20 99/42 (61) 95 08/04/19 16:00 52 08/04/19 12:00 52 08/04/19 12:00 97.5 59 22 127/55 (79) 95 08/04/19 12:00 Venturi Mask 6.0 08/04/19 10:51 55 119/51 Intake and Output 08/04/19 08/05/19 19:00 07:00 Output Total 400 ml 300 ml Balance -400 ml -300 ml Output Urine Total 400 ml 300 ml # Voids 1 Laboratory Tests 08/05/19 04:39: White Blood Count 5.5, Red Blood Count 3.74L, Hemoglobin 9.4L, Hematocrit 29.4L , Mean Corpuscular Volume 79L, Mean Corpuscular Hemoglobin 25.1L, Mean Corpuscular Hemoglobin Concent 31.9L, Red Cell Distribution Width 16.4H, Platelet Count 655H, Mean Platelet Volume 5.5L, Neutrophils (%) (Auto) 51.3, Lymphocytes (%) (Auto) 28.8, Monocytes (%) (Auto) 9.1, Eosinophils (%) (Auto) 9.3H, Basophils (%) (Auto) 1.6, Prothrombin Time 10.2, Prothromb Time International Ratio 1.0, Activated Partial Thromboplast Time 31, Sodium Level 143, Potassium Level 5.0, Chloride Level 104, Carbon Dioxide Level 29, Anion Gap 10, Blood Urea Nitrogen 40H, Creatinine 1.3, Estimat Glomerular Filtration Rate > 60, Glucose Level 84, Calcium Level 9.5, Total Bilirubin 0.2, Aspartate Amino Transf (AST/SGOT) 27, Alanine Aminotransferase (ALT/SGPT) 25, Alkaline Phosphatase 116, Pro-B-Type Natriuretic Peptide 100, Total Protein 8.9H, Albumin 2.1L, Globulin 6.8, Albumin/Globulin Ratio 0.3L Height (Feet): 6 Height (Inches): 1.00 Weight (Pounds): 164 General Appearance: no apparent distress Objective no change Clovis Benites MD Aug 05, 2019 09:52
--- NOTE | 2019-08-05 10:04 | NUR ---
RADIOLOGY: PCXR COMPLETED 0800HRS. NF
--- NOTE | 2019-08-05 10:08 | Infectious Diseases Prog Note ---
Assessment/Plan Assessment/Plan Assessment: Severe sepsis, sp Pneumonia, Sp Rx Probable UTI, SP Rx -07/25 CXR: Markedly increased right basilar opacity, likely increasing pleural fluid -07/22 CXR: Worsening CHF -u/a wbc 15-20, nit neg, leuk +3; ucx <10k Proteus sp (R Amp, ancef, macrobid ; otherwise), 70-80K S. viridans -07/19 CXR: marked worsening of pleural and parenchymal disease at the right lung base.There is also increasing parenchymal consolidation and atelectasis in the left infrahilar region. -CXR: Perihilar and basilar infiltrates. Findings suspicious for pneumonia. -influenza sc neg -Bcx NTD -sp cx MRSA, C. albicans -legionella ag urine neg R pleural effusion -07/26 SP thoracentesis: Successful ultrasound-guided thoracentesis, yielding 780 milliliters of fluid --Cx NTD -07/26 CXR: Improved right pleural effusion, post thoracentesis. No radiographically evident complication Hypothermia, SP Leukocytosis, SP Acute respiratory failure, sp NRB mask/VEnturi mask Lactic acidosis, SP RAMAN, SP Dm2 HTN non verbal hypothyroidism CVA hx of UTI anemia dementia [facility] resident Plan: monitor pt off of AB RX - 07/31 Sp IV Vancomycin #14/ for MRSA PNA -07/26 SP Cefepime #5 -07/22 SP Barbara #4 -07/19 SP Ertapenem #2 -07/18 SP IV Amikacin x1, Levaquin x1 -SCx -Monitor CBC/CMP, temperatures -aspiration precautions failed the swallow study previously, video swallow showed silent aspiration. non-oral feeding. Thank you for this consultation. Will continue to follow along with you. Subjective Gastrointestinal/Abdominal: Reports: no symptoms Genitourinary: Reports: no symptoms Allergies: Coded Allergies: PENICILLINS (Verified Allergy, Unknown, 10/27/18) tolretas cephalosporins Subjective comfortable Objective Vital Signs Last 24 Hour Vital Signs Date Time Temp Pulse Resp B/P (MAP) Pulse Ox O2 Delivery O2 Flow Rate FiO2 08/05/19 08:20 93 Nasal Cannula 4.0 36 08/05/19 08:20 123 20 93 Nasal Cannula 4.0 36 08/05/19 08:00 97.9 59 20 107/45 (65) 93 08/05/19 04:00 97.7 60 18 114/61 (78) 95 08/05/19 04:00 60 08/05/19 00:00 56 08/05/19 00:00 97.9 56 18 119/56 (77) 97 08/04/19 21:00 Venturi Mask 6.0 08/04/19 20:00 53 08/04/19 20:00 98.0 53 18 112/48 (69) 96 08/04/19 19:54 98 Venturi Mask 4.0 30 08/04/19 19:54 56 18 98 Venturi Mask 4.0 30 08/04/19 16:00 97.5 49 20 99/42 (61) 95 08/04/19 16:00 52 08/04/19 12:00 52 08/04/19 12:00 97.5 59 22 127/55 (79) 95 08/04/19 12:00 Venturi Mask 6.0 08/04/19 10:51 55 119/51 Height (Feet): 6 Height (Inches): 1.00 Weight (Pounds): 164 HEENT: mucous membranes moist Respiratory/Chest: respiratory distress Cardiovascular: regular rhythm Abdomen: soft, non tender Laboratory Tests Test 08/05/19 04:39 White Blood Count 5.5 K/UL (4.8-10.8) Red Blood Count 3.74 M/UL (4.70-6.10) L Hemoglobin 9.4 G/DL (14.2-18.0) L Hematocrit 29.4 % (42.0-52.0) L Mean Corpuscular Volume 79 FL (80-99) L Mean Corpuscular Hemoglobin 25.1 PG (27.0-31.0) L Mean Corpuscular Hemoglobin Concent 31.9 G/DL (32.0-36.0) L Red Cell Distribution Width 16.4 % (11.6-14.8) H Platelet Count 655 K/UL (150-450) H Mean Platelet Volume 5.5 FL (6.5-10.1) L Neutrophils (%) (Auto) 51.3 % (45.0-75.0) Lymphocytes (%) (Auto) 28.8 % (20.0-45.0) Monocytes (%) (Auto) 9.1 % (1.0-10.0) Eosinophils (%) (Auto) 9.3 % (0.0-3.0) H Basophils (%) (Auto) 1.6 % (0.0-2.0) Prothrombin Time 10.2 SEC (9.30-11.50) Prothromb Time International Ratio 1.0 (0.9-1.1) Activated Partial Thromboplast Time 31 SEC (23-33) Sodium Level 143 MMOL/L (136-145) Potassium Level 5.0 MMOL/L (3.5-5.1) Chloride Level 104 MMOL/L (98-107) Carbon Dioxide Level 29 MMOL/L (21-32) Anion Gap 10 mmol/L (5-15) Blood Urea Nitrogen 40 mg/dL (7-18) H Creatinine 1.3 MG/DL (0.55-1.30) Estimat Glomerular Filtration Rate > 60 mL/min (>60) Glucose Level 84 MG/DL (74-106) Calcium Level 9.5 MG/DL (8.5-10.1) Total Bilirubin 0.2 MG/DL (0.2-1.0) Aspartate Amino Transf (AST/SGOT) 27 U/L (15-37) Alanine Aminotransferase (ALT/SGPT) 25 U/L (12-78) Alkaline Phosphatase 116 U/L (46-116) Pro-B-Type Natriuretic Peptide 100 pg/mL (0-125) Total Protein 8.9 G/DL (6.4-8.2) H Albumin 2.1 G/DL (3.4-5.0) L Globulin 6.8 g/dL Albumin/Globulin Ratio 0.3 (1.0-2.7) L Current Medications Medications (Trade) Dose Ordered Sig/Kike Route PRN Reason Start Time Stop Time Status Last Admin Dose Admin Acetaminophen (Tylenol) 650 mg Q4H PRN ORAL fever 07/21/19 05:30 08/17/19 05:29 Alprazolam (Xanax) 0.5 mg Q6H PRN ORAL For Anxiety 08/02/19 20:45 08/09/19 20:44 08/04/19 04:29 Amlodipine Besylate (Norvasc) 2.5 mg DAILY NG 07/24/19 09:00 08/23/19 08:59 08/04/19 10:51 Docusate Sodium (Colace) 100 mg TWICE A DAY ORAL 08/04/19 09:00 09/03/19 08:59 08/04/19 17:27 Folic Acid (Folate) 2 mg DAILY ORAL 07/21/19 09:00 08/19/19 11:29 08/04/19 10:52 Furosemide (Lasix) 20 mg DAILY IV 07/30/19 09:00 08/29/19 08:59 08/04/19 10:51 Lansoprazole (Prevacid) 30 mg BID NG 07/23/19 18:00 08/22/19 17:59 08/04/19 17:27 Levothyroxine Sodium (Synthroid) 50 mcg DAILY@0630 ORAL 07/21/19 06:30 08/18/19 06:29 08/04/19 06:33 Ondansetron HCl (Zofran) 4 mg Q6H PRN IVP Nausea & Vomiting 07/21/19 08:15 08/17/19 14:14 Polyethylene Glycol (Miralax) 17 gm DAILYPRN PRN ORAL Constipation 07/21/19 05:30 08/17/19 05:29 Quetiapine Fumarate (SEROqueL) 25 mg Q8H PRN ORAL agitation 07/21/19 05:30 08/17/19 05:29 08/04/19 04:29 Alexander Lock MD Aug 05, 2019 10:08
--- NOTE | 2019-08-05 10:10 | Infectious Diseases Prog Note ---
Assessment/Plan Assessment/Plan Assessment: Severe sepsis, sp Pneumonia, Sp Rx Probable UTI, SP Rx -07/25 CXR: Markedly increased right basilar opacity, likely increasing pleural fluid -07/22 CXR: Worsening CHF -u/a wbc 15-20, nit neg, leuk +3; ucx <10k Proteus sp (R Amp, ancef, macrobid ; otherwise), 70-80K S. viridans -07/19 CXR: marked worsening of pleural and parenchymal disease at the right lung base.There is also increasing parenchymal consolidation and atelectasis in the left infrahilar region. -CXR: Perihilar and basilar infiltrates. Findings suspicious for pneumonia. -influenza sc neg -Bcx NTD -sp cx MRSA, C. albicans -legionella ag urine neg R pleural effusion -07/26 SP thoracentesis: Successful ultrasound-guided thoracentesis, yielding 780 milliliters of fluid --Cx NTD -07/26 CXR: Improved right pleural effusion, post thoracentesis. No radiographically evident complication Hypothermia, SP Leukocytosis, SP Acute respiratory failure, sp NRB mask/VEnturi mask Lactic acidosis, SP RAMAN, SP Dm2 HTN non verbal hypothyroidism CVA hx of UTI anemia dementia half-way resident Plan: monitor pt off of AB RX - 07/31 Sp IV Vancomycin #14/ for MRSA PNA -07/26 SP Cefepime #5 -07/22 SP Barbara #4 -07/19 SP Ertapenem #2 -07/18 SP IV Amikacin x1, Levaquin x1 -Monitor CBC/CMP, temperatures -aspiration precautions failed the swallow study previously, video swallow showed silent aspiration. non-oral feeding. Thank you for this consultation. Will continue to follow along with you. Subjective Allergies: Coded Allergies: PENICILLINS (Verified Allergy, Unknown, 10/27/18) tolretas cephalosporins Subjective occasional cough Objective Vital Signs Last 24 Hour Vital Signs Date Time Temp Pulse Resp B/P (MAP) Pulse Ox O2 Delivery O2 Flow Rate FiO2 08/05/19 08:20 93 Nasal Cannula 4.0 36 08/05/19 08:20 123 20 93 Nasal Cannula 4.0 36 08/05/19 08:00 97.9 59 20 107/45 (65) 93 08/05/19 04:00 97.7 60 18 114/61 (78) 95 08/05/19 04:00 60 08/05/19 00:00 56 08/05/19 00:00 97.9 56 18 119/56 (77) 97 08/04/19 21:00 Venturi Mask 6.0 08/04/19 20:00 53 08/04/19 20:00 98.0 53 18 112/48 (69) 96 08/04/19 19:54 98 Venturi Mask 4.0 30 08/04/19 19:54 56 18 98 Venturi Mask 4.0 30 08/04/19 16:00 97.5 49 20 99/42 (61) 95 08/04/19 16:00 52 08/04/19 12:00 52 08/04/19 12:00 97.5 59 22 127/55 (79) 95 08/04/19 12:00 Venturi Mask 6.0 08/04/19 10:51 55 119/51 Height (Feet): 6 Height (Inches): 1.00 Weight (Pounds): 164 HEENT: anicteric Respiratory/Chest: no respiratory distress Cardiovascular: regular rhythm Abdomen: no organomegaly Laboratory Tests Test 08/05/19 04:39 White Blood Count 5.5 K/UL (4.8-10.8) Red Blood Count 3.74 M/UL (4.70-6.10) L Hemoglobin 9.4 G/DL (14.2-18.0) L Hematocrit 29.4 % (42.0-52.0) L Mean Corpuscular Volume 79 FL (80-99) L Mean Corpuscular Hemoglobin 25.1 PG (27.0-31.0) L Mean Corpuscular Hemoglobin Concent 31.9 G/DL (32.0-36.0) L Red Cell Distribution Width 16.4 % (11.6-14.8) H Platelet Count 655 K/UL (150-450) H Mean Platelet Volume 5.5 FL (6.5-10.1) L Neutrophils (%) (Auto) 51.3 % (45.0-75.0) Lymphocytes (%) (Auto) 28.8 % (20.0-45.0) Monocytes (%) (Auto) 9.1 % (1.0-10.0) Eosinophils (%) (Auto) 9.3 % (0.0-3.0) H Basophils (%) (Auto) 1.6 % (0.0-2.0) Prothrombin Time 10.2 SEC (9.30-11.50) Prothromb Time International Ratio 1.0 (0.9-1.1) Activated Partial Thromboplast Time 31 SEC (23-33) Sodium Level 143 MMOL/L (136-145) Potassium Level 5.0 MMOL/L (3.5-5.1) Chloride Level 104 MMOL/L (98-107) Carbon Dioxide Level 29 MMOL/L (21-32) Anion Gap 10 mmol/L (5-15) Blood Urea Nitrogen 40 mg/dL (7-18) H Creatinine 1.3 MG/DL (0.55-1.30) Estimat Glomerular Filtration Rate > 60 mL/min (>60) Glucose Level 84 MG/DL (74-106) Calcium Level 9.5 MG/DL (8.5-10.1) Total Bilirubin 0.2 MG/DL (0.2-1.0) Aspartate Amino Transf (AST/SGOT) 27 U/L (15-37) Alanine Aminotransferase (ALT/SGPT) 25 U/L (12-78) Alkaline Phosphatase 116 U/L (46-116) Pro-B-Type Natriuretic Peptide 100 pg/mL (0-125) Total Protein 8.9 G/DL (6.4-8.2) H Albumin 2.1 G/DL (3.4-5.0) L Globulin 6.8 g/dL Albumin/Globulin Ratio 0.3 (1.0-2.7) L Current Medications Medications (Trade) Dose Ordered Sig/Kike Route PRN Reason Start Time Stop Time Status Last Admin Dose Admin Acetaminophen (Tylenol) 650 mg Q4H PRN ORAL fever 07/21/19 05:30 08/17/19 05:29 Alprazolam (Xanax) 0.5 mg Q6H PRN ORAL For Anxiety 08/02/19 20:45 08/09/19 20:44 08/04/19 04:29 Amlodipine Besylate (Norvasc) 2.5 mg DAILY NG 07/24/19 09:00 08/23/19 08:59 08/04/19 10:51 Docusate Sodium (Colace) 100 mg TWICE A DAY ORAL 08/04/19 09:00 09/03/19 08:59 08/04/19 17:27 Folic Acid (Folate) 2 mg DAILY ORAL 07/21/19 09:00 08/19/19 11:29 08/04/19 10:52 Furosemide (Lasix) 20 mg DAILY IV 07/30/19 09:00 08/29/19 08:59 08/04/19 10:51 Lansoprazole (Prevacid) 30 mg BID NG 07/23/19 18:00 08/22/19 17:59 08/04/19 17:27 Levothyroxine Sodium (Synthroid) 50 mcg DAILY@0630 ORAL 07/21/19 06:30 08/18/19 06:29 08/04/19 06:33 Ondansetron HCl (Zofran) 4 mg Q6H PRN IVP Nausea & Vomiting 07/21/19 08:15 08/17/19 14:14 Polyethylene Glycol (Miralax) 17 gm DAILYPRN PRN ORAL Constipation 07/21/19 05:30 08/17/19 05:29 Quetiapine Fumarate (SEROqueL) 25 mg Q8H PRN ORAL agitation 07/21/19 05:30 08/17/19 05:29 08/04/19 04:29 Alexander Lock MD Aug 05, 2019 10:10
--- NOTE | 2019-08-05 10:33 | GI Progress Note ---
Assessment/Plan Problems: (1) Failure to thrive SNOMED: 19125382 (2) Anemia ICD Codes: D64.9 - Anemia, unspecified SNOMED: 267056364 (3) Hypoalbuminemia ICD Codes: E88.09 - Other disorders of plasma-protein metabolism, not elsewhere classified SNOMED: 478467366 (4) Severe malnutrition ICD Codes: E43 - Unspecified severe protein-calorie malnutrition SNOMED: 79472767 (5) Sarcopenia ICD Codes: M62.84 - Sarcopenia SNOMED: 534304253 (6) Encounter for PEG (percutaneous endoscopic gastrostomy) ICD Codes: Z43.1 - Encounter for attention to gastrostomy SNOMED: 327936390, 533442452 (7) Severe anemia ICD Codes: D64.9 - Anemia, unspecified SNOMED: 585453155 Status: unchanged Status Narrative Discussed with Dr. Rosario. Assessment/Plan PEG cancelled, unable to reach family for consent. - Niece had consented to procedure over the phone with me yesterday, but was unable to be reached by the RN afterwards. resume feeding by end of day if unable to consent patient currently on NC 4L. Hold all blood thinners tonight Anemia work-up reviewed>> iron deficient, occult blood stool negative As needed transfusions ppi NGTFs electrolyte correction Will follow with additional recommendations post procedure The patient was seen and examined at bedside and all new and available data was reviewed in the patients chart. I agree with the above findings, impression and plan. (Patient seen earlier today. Signature stamp does not reflect patient encounter time.). - Darrick Rosario MD Subjective Subjective limited Objective Last 24 Hour Vital Signs Date Time Temp Pulse Resp B/P (MAP) Pulse Ox O2 Delivery O2 Flow Rate FiO2 08/05/19 10:23 62 08/05/19 08:20 93 Nasal Cannula 4.0 36 08/05/19 08:20 123 20 93 Nasal Cannula 4.0 36 08/05/19 08:00 97.9 59 20 107/45 (65) 93 08/05/19 04:00 97.7 60 18 114/61 (78) 95 08/05/19 04:00 60 08/05/19 00:00 56 08/05/19 00:00 97.9 56 18 119/56 (77) 97 08/04/19 21:00 Venturi Mask 6.0 08/04/19 20:00 53 08/04/19 20:00 98.0 53 18 112/48 (69) 96 08/04/19 19:54 98 Venturi Mask 4.0 30 08/04/19 19:54 56 18 98 Venturi Mask 4.0 30 08/04/19 16:00 97.5 49 20 99/42 (61) 95 08/04/19 16:00 52 08/04/19 12:00 52 08/04/19 12:00 97.5 59 22 127/55 (79) 95 08/04/19 12:00 Venturi Mask 6.0 08/04/19 10:51 55 119/51 Intake and Output 08/04/19 08/05/19 19:00 07:00 Output Total 400 ml 300 ml Balance -400 ml -300 ml Output Urine Total 400 ml 300 ml # Voids 1 Laboratory Tests Test 08/05/19 04:39 White Blood Count 5.5 K/UL (4.8-10.8) Red Blood Count 3.74 M/UL (4.70-6.10) L Hemoglobin 9.4 G/DL (14.2-18.0) L Hematocrit 29.4 % (42.0-52.0) L Mean Corpuscular Volume 79 FL (80-99) L Mean Corpuscular Hemoglobin 25.1 PG (27.0-31.0) L Mean Corpuscular Hemoglobin Concent 31.9 G/DL (32.0-36.0) L Red Cell Distribution Width 16.4 % (11.6-14.8) H Platelet Count 655 K/UL (150-450) H Mean Platelet Volume 5.5 FL (6.5-10.1) L Neutrophils (%) (Auto) 51.3 % (45.0-75.0) Lymphocytes (%) (Auto) 28.8 % (20.0-45.0) Monocytes (%) (Auto) 9.1 % (1.0-10.0) Eosinophils (%) (Auto) 9.3 % (0.0-3.0) H Basophils (%) (Auto) 1.6 % (0.0-2.0) Prothrombin Time 10.2 SEC (9.30-11.50) Prothromb Time International Ratio 1.0 (0.9-1.1) Activated Partial Thromboplast Time 31 SEC (23-33) Sodium Level 143 MMOL/L (136-145) Potassium Level 5.0 MMOL/L (3.5-5.1) Chloride Level 104 MMOL/L (98-107) Carbon Dioxide Level 29 MMOL/L (21-32) Anion Gap 10 mmol/L (5-15) Blood Urea Nitrogen 40 mg/dL (7-18) H Creatinine 1.3 MG/DL (0.55-1.30) Estimat Glomerular Filtration Rate > 60 mL/min (>60) Glucose Level 84 MG/DL (74-106) Calcium Level 9.5 MG/DL (8.5-10.1) Total Bilirubin 0.2 MG/DL (0.2-1.0) Aspartate Amino Transf (AST/SGOT) 27 U/L (15-37) Alanine Aminotransferase (ALT/SGPT) 25 U/L (12-78) Alkaline Phosphatase 116 U/L (46-116) Pro-B-Type Natriuretic Peptide 100 pg/mL (0-125) Total Protein 8.9 G/DL (6.4-8.2) H Albumin 2.1 G/DL (3.4-5.0) L Globulin 6.8 g/dL Albumin/Globulin Ratio 0.3 (1.0-2.7) L Height (Feet): 6 Height (Inches): 1.00 Weight (Pounds): 164 General Appearance: WD/WN, no apparent distress, alert Cardiovascular: normal rate Respiratory/Chest: normal breath sounds, no respiratory distress Abdominal Exam: normal bowel sounds, non tender, soft Extremities: normal range of motion, non-tender Chani Arroyo [employer] Aug 05, 2019 10:33
[2019-08-05] MEDS: Docusate 100mg cap ORAL SCH ×2 (10:37→17:43)
--- NOTE | 2019-08-05 10:47 | NUR ---
ST NOTES: SWALLOW STATUS: PATIENT IS ALERT BUT STILL VERY CONFUSED AND DOES NOT FOLLOW COMMANDS NOR ANSWER SIMPLE QUESTIONS CONSISTENTLY REGARDING HIS PREFERENCES FOR TUBE FEEDING IN NOSE OR IN STOMACH. SPOKE TO CARLENE DUMONT CLEANER OPERATOR, WHO SAID THAT THE PATIENT'S NIECE, JEN, DID AGREE WITH PEG PLACEMENT BUT THAT WHEN NURSING TRIED TO CALL HER FOR OFFICIAL CONSENT, SHE DID NOT ANSWER THE PHONE. COATER SLATE LEFT HER A MESSAGE TODAY TO HAVE HER CALL REGARDING HER SHOPPER MARKETING MANAGER TO PEG PLACEMENT. KAI MANZANO, AND GRAZYNA HACKETT, AWARE/EDUCATED ABOUT NEED FOR ORAL CARE AND ASPIRATION PRECAUTION WITH NGT FEEDINGS RUNNING. PLAN: PEG WHEN FAMILY CONSENTS CONTINUE WITH ORAL CARE AND NONORAL FEEDINGS FOR NOW MOD BARIUM SWALLOW STUDY ALREADY COMPLETED BUT PT NOT CONSISTENTLY ALERT FOR THERAPY AT THIS TIME.
--- NOTE | 2019-08-05 10:48 | NUR ---
RD ASSESSMENT & RECOMMENDATIONS SEE CARE ACTIVITY FOR COMPLETE ASSESSMENT DAILY ESTIMATED NEEDS: Needs based on Sepsis, DM, pulmonary/ 67.7kg 25-35 kcals/kg 3055-3831 total kcals 1.25-2 g protein/kg 85-135 g total protein 20-30ml/kcal mL/kg 6196-4115 total fluid mLs NUTRITION DIAGNOSIS: * Swallowing difficulty R/T dysphagia w/ h/o CVA, decreased cognitive fxn as evidenced by AIR CREW OFFICER recommends nonoral feeds at this time, w/ NGT feeds, pending PEG placement. CURRENT TF:Glucerna 1.2 @65 ml/hr x22 hrs- HELD FOR PEG PO DIET RECOMMENDATIONS: IF ORAL DIET INDICATED-> CCHO MED, LOW NA/ texture per AIR CREW OFFICER ENTERAL NUTRITION RECOMMENDATIONS: Glucerna 1.2 @65ml/hr x22 hrs to provide 1430ml, 1716 kcal, 86g prot, 1151ml free H2O - Maintain Glucerna 1.2 @ 65ml/hr for 22 hrs as tolerated. - HOLD TF one hour before and after synthroid meds. - Flush per MD. HOB over 30 degrees Once tolerating TF well, rec to increase to 70ml/hr x22 hrs for 1848 kcal, 92g pro. ADDITIONAL RECOMMENDATIONS: * Calibrated bedscale wt for accurate CBW * Monitor [employer] recommendation regarding oral diet, need to adjust TF * NISS w/ TF: A1C of 6.5 * Monitor lytes, replete as needed * Wound care: add JOSE BID + Vit C 250mg daily * REC TO RECALIBRATE BED SCALE W/ P200 MATTRESS FOR ACCURATE CBW
--- NOTE | 2019-08-05 11:20 | Diagnostic Imaging Report ---
Indication: Dyspnea Technique: One view of the chest Comparison: 08/02/2019 Findings: Bilateral interstitial and airspace infiltrates versus edema persists, probably unchanged. Bilateral pleural effusions right greater than left persist, likewise unchanged. The heart size is normal. Improved position of nasogastric tube. Impression: Bilateral diffuse interstitial and airspace infiltrates versus edema, bilateral pleural effusions, essentially unchanged over 3 days Improved position of nasogastric tube
[2019-08-05 12:00] VITALS: BP 137/58
--- NOTE | 2019-08-05 12:49 | Pulmonology Progress Note ---
Assessment/Plan Problems: (1) Pulmonary edema (2) Nosocomial pneumonia (3) Pleural effusion Assessment & Plan: thoracentesis done, 780 cc removed (4) Sepsis Assessment & Plan: afebrile, wbc wnl (5) Atrial fibrillation (6) Acute renal failure (7) Acute metabolic encephalopathy (8) Severe anemia (9) Alzheimer's dementia (10) History of CVA (cerebrovascular accident) (11) Diabetes mellitus (12) Hypothyroidism Assessment/Plan no new complains on nasal cannula more awake failed the swallow study previously, video swallow showed silent aspiration. non-oral feeding. family meeting to decide about plan of care repeat cxr, on Lasix 20 qd, respiratory treatment NG tube in, tolerating well sliding scale f/u renal function Venofer for iron deficiency DVT prophylaxis. Subjective ROS Limited/Unobtainable: No Constitutional: Reports: no symptoms HEENT: Repors: no symptoms Respiratory: Reports: no symptoms Allergies: Coded Allergies: PENICILLINS (Verified Allergy, Unknown, 10/27/18) tolretas cephalosporins Objective Last 24 Hour Vital Signs Date Time Temp Pulse Resp B/P (MAP) Pulse Ox O2 Delivery O2 Flow Rate FiO2 08/05/19 12:00 97.8 62 20 137/58 (84) 93 08/05/19 10:38 62 107/45 08/05/19 10:23 62 08/05/19 09:00 Nasal Cannula 4.0 08/05/19 08:20 93 Nasal Cannula 4.0 36 08/05/19 08:20 123 20 93 Nasal Cannula 4.0 36 08/05/19 08:00 97.9 59 20 107/45 (65) 93 08/05/19 04:00 97.7 60 18 114/61 (78) 95 08/05/19 04:00 60 08/05/19 00:00 56 08/05/19 00:00 97.9 56 18 119/56 (77) 97 08/04/19 21:00 Venturi Mask 6.0 08/04/19 20:00 53 08/04/19 20:00 98.0 53 18 112/48 (69) 96 08/04/19 19:54 98 Venturi Mask 4.0 30 08/04/19 19:54 56 18 98 Venturi Mask 4.0 30 08/04/19 16:00 97.5 49 20 99/42 (61) 95 08/04/19 16:00 52 Intake and Output 08/04/19 08/05/19 19:00 07:00 Output Total 400 ml 300 ml Balance -400 ml -300 ml Output Urine Total 400 ml 300 ml # Voids 1 General Appearance: WD/WN HEENT: normocephalic, atraumatic Respiratory/Chest: chest wall non-tender, lungs clear Cardiovascular: normal peripheral pulses, normal rate Abdomen: normal bowel sounds, soft, non tender, no scars Genitourinary: normal external genitalia Neurologic/Psychiatric: worship pastor II-XII grossly normal Laboratory Tests 08/05/19 04:39: White Blood Count 5.5, Red Blood Count 3.74L, Hemoglobin 9.4L, Hematocrit 29.4L , Mean Corpuscular Volume 79L, Mean Corpuscular Hemoglobin 25.1L, Mean Corpuscular Hemoglobin Concent 31.9L, Red Cell Distribution Width 16.4H, Platelet Count 655H, Mean Platelet Volume 5.5L, Neutrophils (%) (Auto) 51.3, Lymphocytes (%) (Auto) 28.8, Monocytes (%) (Auto) 9.1, Eosinophils (%) (Auto) 9.3H, Basophils (%) (Auto) 1.6, Prothrombin Time 10.2, Prothromb Time International Ratio 1.0, Activated Partial Thromboplast Time 31, Sodium Level 143, Potassium Level 5.0, Chloride Level 104, Carbon Dioxide Level 29, Anion Gap 10, Blood Urea Nitrogen 40H, Creatinine 1.3, Estimat Glomerular Filtration Rate > 60, Glucose Level 84, Calcium Level 9.5, Total Bilirubin 0.2, Aspartate Amino Transf (AST/SGOT) 27, Alanine Aminotransferase (ALT/SGPT) 25, Alkaline Phosphatase 116, Pro-B-Type Natriuretic Peptide 100, Total Protein 8.9H, Albumin 2.1L, Globulin 6.8, Albumin/Globulin Ratio 0.3L Current Medications Medications (Trade) Dose Ordered Sig/Kike Route PRN Reason Start Time Stop Time Status Last Admin Dose Admin Acetaminophen (Tylenol) 650 mg Q4H PRN ORAL fever 07/21/19 05:30 08/17/19 05:29 Alprazolam (Xanax) 0.5 mg Q6H PRN ORAL For Anxiety 08/02/19 20:45 08/09/19 20:44 08/04/19 04:29 Amlodipine Besylate (Norvasc) 2.5 mg DAILY NG 07/24/19 09:00 08/23/19 08:59 08/05/19 10:38 Docusate Sodium (Colace) 100 mg TWICE A DAY ORAL 08/04/19 09:00 09/03/19 08:59 08/05/19 10:37 Folic Acid (Folate) 2 mg DAILY ORAL 07/21/19 09:00 08/19/19 11:29 08/05/19 10:36 Furosemide (Lasix) 20 mg DAILY IV 07/30/19 09:00 08/29/19 08:59 08/05/19 10:37 Lansoprazole (Prevacid) 30 mg BID NG 07/23/19 18:00 08/22/19 17:59 08/05/19 10:36 Levothyroxine Sodium (Synthroid) 50 mcg DAILY@0630 ORAL 07/21/19 06:30 08/18/19 06:29 08/04/19 06:33 Ondansetron HCl (Zofran) 4 mg Q6H PRN IVP Nausea & Vomiting 07/21/19 08:15 08/17/19 14:14 Polyethylene Glycol (Miralax) 17 gm DAILYPRN PRN ORAL Constipation 07/21/19 05:30 08/17/19 05:29 Quetiapine Fumarate (SEROqueL) 25 mg Q8H PRN ORAL agitation 07/21/19 05:30 08/17/19 05:29 08/04/19 04:29 Vania Hui MD Aug 05, 2019 12:49
--- NOTE | 2019-08-05 13:30 | NUR ---
INSURANCE CLINICALS AND REVIEWS FAXED TO [facility] P- [phone] F- [phone]...REVIEW/CLINICAL
--- NOTE | 2019-08-05 13:39 | NUR ---
CASE MANAGEMENT: REVIEW 08/05/2019 SI:Pulmonary edema T 97.8 HR 62 RR 20 B/P 137/58 SATS 93% ON 4L/NC LABS: BUN 40 IS:PREVACID NG BID NORVASC NG QD LASIX IV QD SYNTHROID PO QD TELE PLAN OF CARE: EGD DC PLANNING
[2019-08-05 16:00] VITALS: BP 96/51
--- NOTE | 2019-08-05 19:04 | Internal Med Progress Note ---
Subjective Date of Service: Aug 05, 2019 Physician Name Xander Bah Attending Physician Lamont Hayes MD Current Medications Medications (Trade) Dose Ordered Sig/Kike Route PRN Reason Start Time Stop Time Status Last Admin Dose Admin Acetaminophen (Tylenol) 650 mg Q4H PRN ORAL fever 07/21/19 05:30 08/17/19 05:29 Alprazolam (Xanax) 0.5 mg Q6H PRN ORAL For Anxiety 08/02/19 20:45 08/09/19 20:44 08/04/19 04:29 Amlodipine Besylate (Norvasc) 2.5 mg DAILY NG 07/24/19 09:00 08/23/19 08:59 08/05/19 10:38 Docusate Sodium (Colace) 100 mg TWICE A DAY ORAL 08/04/19 09:00 09/03/19 08:59 08/05/19 17:43 Folic Acid (Folate) 2 mg DAILY ORAL 07/21/19 09:00 08/19/19 11:29 08/05/19 10:36 Furosemide (Lasix) 20 mg DAILY IV 07/30/19 09:00 08/29/19 08:59 08/05/19 10:37 Lansoprazole (Prevacid) 30 mg BID NG 07/23/19 18:00 08/22/19 17:59 08/05/19 17:43 Levothyroxine Sodium (Synthroid) 50 mcg DAILY@0630 ORAL 07/21/19 06:30 08/18/19 06:29 08/04/19 06:33 Ondansetron HCl (Zofran) 4 mg Q6H PRN IVP Nausea & Vomiting 07/21/19 08:15 08/17/19 14:14 Polyethylene Glycol (Miralax) 17 gm DAILYPRN PRN ORAL Constipation 07/21/19 05:30 08/17/19 05:29 Quetiapine Fumarate (SEROqueL) 25 mg Q8H PRN ORAL agitation 07/21/19 05:30 08/17/19 05:29 08/04/19 04:29 Allergies: Coded Allergies: PENICILLINS (Verified Allergy, Unknown, 10/27/18) tolretas cephalosporins ROS Limited/Unobtainable: Yes Subjective 84 YO M admitted with altered mental status. Now pneumonia and severe sepsis. Cover for Int Med-Dr Hayes. PEG postponed Objective Last Vital Signs Date Time Temp Pulse Resp B/P (MAP) Pulse Ox O2 Delivery O2 Flow Rate FiO2 08/05/19 12:00 97.8 62 20 137/58 (84) 93 08/05/19 09:00 Nasal Cannula 4.0 08/05/19 08:20 36 Laboratory Tests Test 08/05/19 04:39 White Blood Count 5.5 K/UL (4.8-10.8) Red Blood Count 3.74 M/UL (4.70-6.10) L Hemoglobin 9.4 G/DL (14.2-18.0) L Hematocrit 29.4 % (42.0-52.0) L Mean Corpuscular Volume 79 FL (80-99) L Mean Corpuscular Hemoglobin 25.1 PG (27.0-31.0) L Mean Corpuscular Hemoglobin Concent 31.9 G/DL (32.0-36.0) L Red Cell Distribution Width 16.4 % (11.6-14.8) H Platelet Count 655 K/UL (150-450) H Mean Platelet Volume 5.5 FL (6.5-10.1) L Neutrophils (%) (Auto) 51.3 % (45.0-75.0) Lymphocytes (%) (Auto) 28.8 % (20.0-45.0) Monocytes (%) (Auto) 9.1 % (1.0-10.0) Eosinophils (%) (Auto) 9.3 % (0.0-3.0) H Basophils (%) (Auto) 1.6 % (0.0-2.0) Prothrombin Time 10.2 SEC (9.30-11.50) Prothromb Time International Ratio 1.0 (0.9-1.1) Activated Partial Thromboplast Time 31 SEC (23-33) Sodium Level 143 MMOL/L (136-145) Potassium Level 5.0 MMOL/L (3.5-5.1) Chloride Level 104 MMOL/L (98-107) Carbon Dioxide Level 29 MMOL/L (21-32) Anion Gap 10 mmol/L (5-15) Blood Urea Nitrogen 40 mg/dL (7-18) H Creatinine 1.3 MG/DL (0.55-1.30) Estimat Glomerular Filtration Rate > 60 mL/min (>60) Glucose Level 84 MG/DL (74-106) Calcium Level 9.5 MG/DL (8.5-10.1) Total Bilirubin 0.2 MG/DL (0.2-1.0) Aspartate Amino Transf (AST/SGOT) 27 U/L (15-37) Alanine Aminotransferase (ALT/SGPT) 25 U/L (12-78) Alkaline Phosphatase 116 U/L (46-116) Pro-B-Type Natriuretic Peptide 100 pg/mL (0-125) Total Protein 8.9 G/DL (6.4-8.2) H Albumin 2.1 G/DL (3.4-5.0) L Globulin 6.8 g/dL Albumin/Globulin Ratio 0.3 (1.0-2.7) L Intake and Output 08/04/19 08/05/19 19:00 07:00 Output Total 400 ml 300 ml Balance -400 ml -300 ml Output Urine Total 400 ml 300 ml # Voids 1 Objective PHYSICAL EXAMINATION: GENERAL: The patient is a well-developed, well-nourished, thin-appearing male, who is in moderate respiratory distress. HEENT: Eyes, pupils are equal and responsive to light and accommodation. Extraocular movements are intact. NECK: Supple without lymphadenopathy. CHEST: Venturi mask; Lungs with bilateral wheezes and rhonchi; breath sounds decreased at bases CARDIOVASCULAR: Regular rhythm and rate. S1 and S2 are normal without murmurs, rubs, or gallops. ABDOMEN: Soft, nontender, and nondistended. Positive bowel sounds. No evidence of hepatosplenomegaly. Currently, no rebound or guarding noted. EXTREMITIES: Negative for clubbing, cyanosis, or edema. RECTAL/GENITAL: Not performed. NEUROLOGIC: Cranial nerves II through XII are grossly intact without focal deficits. Motor strength is 5/5 bilaterally. Deep tendon reflexes are 2+ plantar. Assessment/Plan Assessment/Plan ASSESSMENT: This is an 84-year-old male. 1. Bilateral pneumonia. 2. Respiratory failure. 3. Probable sepsis. 4. Altered mental status. 5. Diabetes type 2. 6. Hypothyroidism. 7. Cerebrovascular disease. 8. Acute renal failure. 9. Leukocytosis 10. Hypernatremia 11. Right pleural effusion TREATMENT: 1. Respiratory failure/bilateral pneumonia. A Pulmonary consultation has been obtained with Dr. Vania Hui. The patient is currently admitted to the intensive care unit. The patient is currently on a venturi mask. The patient has been started empirically on vancomycin and ertapenem. A sputum culture =MRSA. ABX=vanco per ID=Dr Roach 2. Altered mental status. This is probably secondary to hypoxia secondary to pneumonia as above. 3. Diabetes type 2. The patient was admitted without antihyperglycemic medication. 4. Hypothyroidism. Continue Levoxyl as above. 5. Cerebrovascular disease. The patient is status post cerebrovascular accident. 6. Acute renal failure. This may be secondary to acute dehydration. The patient is currently receiving intravenous fluids. 7. Severe Sepsis. ABX=vanco . ID=Dr Matias 8. S/P right thoracentesis 07/26/19 9. Endoscopy/PEG postponed-see GI note Xander Bah MD Aug 05, 2019 19:04
--- NOTE | 2019-08-05 19:08 | Cardiology Progress Note ---
Assessment/Plan Assessment/Plan 1. Toxic metabolic encephalopathy. 2. Pneumonia. 3. Respiratory insufficiency. 4. Dementia. 5. Hypernatremia. 6. History of CVA. 7. History of hypertension. 8. History of diabetes mellitus. 9. History of hypothyroidism. 10. sinus alexandra asymptomatic tele reviewed sinus alexandra ? related to hypothyroid ? i will see intermittently on oxygen on pulm treatment cv ok to med-surg if ok with dr pena from pulm view point as well Subjective ROS Limited/Unobtainable: Yes Objective Last 24 Hour Vital Signs Date Time Temp Pulse Resp B/P (MAP) Pulse Ox O2 Delivery O2 Flow Rate FiO2 08/05/19 12:00 97.8 62 20 137/58 (84) 93 08/05/19 10:38 62 107/45 08/05/19 10:23 62 08/05/19 09:00 Nasal Cannula 4.0 08/05/19 08:20 93 Nasal Cannula 4.0 36 08/05/19 08:20 123 20 93 Nasal Cannula 4.0 36 08/05/19 08:00 97.9 59 20 107/45 (65) 93 08/05/19 04:00 97.7 60 18 114/61 (78) 95 08/05/19 04:00 60 08/05/19 00:00 56 08/05/19 00:00 97.9 56 18 119/56 (77) 97 08/04/19 21:00 Venturi Mask 6.0 08/04/19 20:00 53 08/04/19 20:00 98.0 53 18 112/48 (69) 96 08/04/19 19:54 98 Venturi Mask 4.0 30 08/04/19 19:54 56 18 98 Venturi Mask 4.0 30 General Appearance: no apparent distress, alert Intake and Output 08/04/19 08/05/19 19:00 07:00 Output Total 400 ml 300 ml Balance -400 ml -300 ml Output Urine Total 400 ml 300 ml # Voids 1 Laboratory Tests Test 08/05/19 04:39 White Blood Count 5.5 K/UL (4.8-10.8) Red Blood Count 3.74 M/UL (4.70-6.10) L Hemoglobin 9.4 G/DL (14.2-18.0) L Hematocrit 29.4 % (42.0-52.0) L Mean Corpuscular Volume 79 FL (80-99) L Mean Corpuscular Hemoglobin 25.1 PG (27.0-31.0) L Mean Corpuscular Hemoglobin Concent 31.9 G/DL (32.0-36.0) L Red Cell Distribution Width 16.4 % (11.6-14.8) H Platelet Count 655 K/UL (150-450) H Mean Platelet Volume 5.5 FL (6.5-10.1) L Neutrophils (%) (Auto) 51.3 % (45.0-75.0) Lymphocytes (%) (Auto) 28.8 % (20.0-45.0) Monocytes (%) (Auto) 9.1 % (1.0-10.0) Eosinophils (%) (Auto) 9.3 % (0.0-3.0) H Basophils (%) (Auto) 1.6 % (0.0-2.0) Prothrombin Time 10.2 SEC (9.30-11.50) Prothromb Time International Ratio 1.0 (0.9-1.1) Activated Partial Thromboplast Time 31 SEC (23-33) Sodium Level 143 MMOL/L (136-145) Potassium Level 5.0 MMOL/L (3.5-5.1) Chloride Level 104 MMOL/L (98-107) Carbon Dioxide Level 29 MMOL/L (21-32) Anion Gap 10 mmol/L (5-15) Blood Urea Nitrogen 40 mg/dL (7-18) H Creatinine 1.3 MG/DL (0.55-1.30) Estimat Glomerular Filtration Rate > 60 mL/min (>60) Glucose Level 84 MG/DL (74-106) Calcium Level 9.5 MG/DL (8.5-10.1) Total Bilirubin 0.2 MG/DL (0.2-1.0) Aspartate Amino Transf (AST/SGOT) 27 U/L (15-37) Alanine Aminotransferase (ALT/SGPT) 25 U/L (12-78) Alkaline Phosphatase 116 U/L (46-116) Pro-B-Type Natriuretic Peptide 100 pg/mL (0-125) Total Protein 8.9 G/DL (6.4-8.2) H Albumin 2.1 G/DL (3.4-5.0) L Globulin 6.8 g/dL Albumin/Globulin Ratio 0.3 (1.0-2.7) L Juarez Fletcher MD Aug 05, 2019 19:08
--- NOTE | 2019-08-05 19:25 | NUR ---
HAND-OFF: Report given to Lauren/AUBREY, pt in stable condition and still NPO. We are still waiting on telephone consent from family member, doctor's are aware [place] and [place]. Per [place] continue to keep pt NPO procedure may happen tomorrow.
[2019-08-05 20:00] VITALS: BP 103/55
--- NOTE | 2019-08-05 20:00 | NUR ---
NURSE NOTES: RECEIVED PATIENT LYING IN BED, EYES OPEN, ORIENTED TO PERSON, REALITY ORIENTATION PROVIDED DURING ASSESSMENT. HEAD OF BED ELEVATED/ASPIRATION PRECAUTIONS, ALL NEED ANTICIPATED AND MET BY NURSING STAFF. BILATERAL WRIST RESTRAINTS INTACT TO PREVENT PATIENT FROM REMOVING TUBINGS. NPO EXCEPT MEDICATION/NGT INTACT RIGHT NARE, PLACEMENT CONFIRMED VIA STETHOSCOPE, FLUSHED FOR PATENCY, NO GASTRIC RESIDUAL ASPIRATED. ABDOMEN SOFT/NON DISTENDED/BOWEL SOUNDS AUDIBLE, INCONTINENT B/B, CARE PROVIDED, REPOSITIONED FOR COMFORT/PRESSURE RELIEF, TOLERATED WELL. SIDE RAILS UP X3/BED IN LOWEST POSITION FOR SAFETY. FREQUENT ROUNDING FOR SAFETY/NEEDS. CONTINUE WITH CURRENT PLAN OF CARE. NAD.
--- NOTE | 2019-08-05 20:38 | NUR ---
NURSE NOTES: notified Dr. Aubrey Arcos about pt last glucose being 84 around. Asked doctor if they want to order fluids for pt. per [place] Ok to restart feeding.
[2019-08-06] VITALS: BP 130/55
[2019-08-06 04:00] VITALS: BP 125/49
--- NOTE | 2019-08-06 07:28 | Pulmonology Progress Note ---
Assessment/Plan Assessment/Plan ASSESSMENT Sepsis Acute respiratory failure, requiring NRM, now on VM Bilateral pneumonia R pleural effusion s/p thoracentesis 07/26 Acute metabolic encephalopathy UTI Dysphagia Diabetes mellitus type 2 Acute renal failure Cerebrovascular disease Hypothyroidism Hypernatremia Severe anemia Alzheimer dementia Anemia of iron deficiency PLAN OF CARE tele O2 titrate to keep pulse ox above 92%, currently on O2 via NC; off NRM and VM CXR 07/25 increasing R pleural effusion s/p tap 07/26-> 750 ml of pleural fluid, pleural fluid CX NGTD, cytology pending pulmonary toilet aspiration precautions TF via NGT CXR 07/29 Increasing interstitial and airspace edema, increasing right pleural fluid, over 3 days fup with CXR on Thursday, may need another tap CXR 08/05 noted: bilateral diffuse interstitial and airspace infiltrates versus edema, bilateral pleural effusions, essentially unchanged over 3 days s/p abx as per ID SCX + Staph, Abi , UCX + Proteus , Strep viridans , BCX NGTD , repeated UCX negative swallow evaluation noted, monitor H&H with goal to keep hemoglobin above 7 stool OB negative CEA WNL anemia c/w AID, s/p venofer PEG cancelled 08/05, unable to get consent folic acid supplement DVT GI prophylaxis diuresis , monitor volumes monitor renal parameters, lites ,correct electrolytes as needed, avoid nephrotoxic bowel regimen elevated TSH ; dose of Synthroid increased, repeat TFT in 1 month case discussed and evaluated by supervising physician Subjective Allergies: Coded Allergies: PENICILLINS (Verified Allergy, Unknown, 10/27/18) tolretas cephalosporins Subjective On O2 4 L via NC pulse ox stable , afebrile, no leukocytosis PEG cancelled 08/05 Objective Last 24 Hour Vital Signs Date Time Temp Pulse Resp B/P (MAP) Pulse Ox O2 Delivery O2 Flow Rate FiO2 08/06/19 04:00 97.3 59 18 125/49 (74) 97 08/06/19 00:00 53 08/06/19 00:00 98.0 51 18 130/55 (80) 98 08/05/19 21:00 Nasal Cannula 4.0 08/05/19 20:00 96.7 53 16 103/55 (71) 100 08/05/19 20:00 55 08/05/19 19:38 55 16 97 Nasal Cannula 4.0 36 08/05/19 19:38 97 Nasal Cannula 4.0 36 08/05/19 16:00 97.8 60 20 96/51 (66) 100 08/05/19 16:00 55 08/05/19 12:00 58 08/05/19 12:00 97.8 62 20 137/58 (84) 93 08/05/19 10:38 62 107/45 08/05/19 10:23 62 08/05/19 09:00 Nasal Cannula 4.0 08/05/19 08:20 93 Nasal Cannula 4.0 36 08/05/19 08:20 123 20 93 Nasal Cannula 4.0 36 08/05/19 08:00 97.9 59 20 107/45 (65) 93 Intake and Output 08/05/19 08/06/19 19:00 07:00 Intake Total 950 ml Output Total 300 ml Balance 650 ml Free Water 300 ml Tube Feeding 650 ml Output Urine Total 300 ml Stool Total 0 ml # Voids 2 Objective HEENT: normocephalic, atraumatic, anicteric, on O2 via NC; NGT with TF Respiratory/Chest: decreased breath sounds Cardiovascular: normal rate Abdomen: soft, non tender Extremities: no edema Neurologic/Psychiatric: abnormal gait Musculoskeletal: atrophy Current Medications Medications (Trade) Dose Ordered Sig/Kike Route PRN Reason Start Time Stop Time Status Last Admin Dose Admin Acetaminophen (Tylenol) 650 mg Q4H PRN ORAL fever 07/21/19 05:30 08/17/19 05:29 Alprazolam (Xanax) 0.5 mg Q6H PRN ORAL For Anxiety 08/02/19 20:45 08/09/19 20:44 08/04/19 04:29 Amlodipine Besylate (Norvasc) 2.5 mg DAILY NG 07/24/19 09:00 08/23/19 08:59 08/05/19 10:38 Docusate Sodium (Colace) 100 mg TWICE A DAY ORAL 08/04/19 09:00 09/03/19 08:59 08/05/19 17:43 Folic Acid (Folate) 2 mg DAILY ORAL 07/21/19 09:00 08/19/19 11:29 08/05/19 10:36 Furosemide (Lasix) 20 mg DAILY IV 07/30/19 09:00 08/29/19 08:59 08/05/19 10:37 Lansoprazole (Prevacid) 30 mg BID NG 07/23/19 18:00 08/22/19 17:59 08/05/19 17:43 Levothyroxine Sodium (Synthroid) 50 mcg DAILY@0630 ORAL 07/21/19 06:30 08/18/19 06:29 08/06/19 06:45 Ondansetron HCl (Zofran) 4 mg Q6H PRN IVP Nausea & Vomiting 07/21/19 08:15 08/17/19 14:14 Polyethylene Glycol (Miralax) 17 gm DAILYPRN PRN ORAL Constipation 07/21/19 05:30 08/17/19 05:29 Quetiapine Fumarate (SEROqueL) 25 mg Q8H PRN ORAL agitation 07/21/19 05:30 08/17/19 05:29 08/05/19 22:00 Miranda Pimentel PROFESSOR OF COMMUNICATION Aug 06, 2019 07:28
[2019-08-06 07:54] LABS: BASOPHILS % (AUTO) 3.2 % (0.0-2.0); EOSINOPHILS % (AUTO) 7.6 % (0.0-3.0); HEMOGLOBIN 9.4 G/DL (14.2-18.0); LYMPHOCYTES % (AUTO) 38.6 % (20.0-45.0); MEAN CORPUSCULAR VOLUME 79 FL (80-99); MONOCYTES % (AUTO) 10.5 % (1.0-10.0); PLATELET COUNT 687 K/UL (150-450); RED BLOOD COUNT 3.77 M/UL (4.70-6.10); RED CELL DISTRIBUTION WIDTH 16.8 % (11.6-14.8); WHITE BLOOD COUNT 5.3 K/UL (4.8-10.8)
[2019-08-06 08:00] VITALS: BP 132/71
[2019-08-06 08:42] LABS: ANION GAP 14 mmol/L (5-15); BLOOD UREA NITROGEN 42 mg/dL (7-18); CALCIUM 9.6 MG/DL (8.5-10.1); CARBON DIOXIDE 25 MMOL/L (21-32); CHLORIDE 103 MMOL/L (98-107); CREATININE 1.6 MG/DL (0.55-1.30); POTASSIUM 4.8 MMOL/L (3.5-5.1); SODIUM 142 MMOL/L (136-145)
[2019-08-06] MEDS: Docusate 100mg cap ORAL SCH ×2 (09:02→17:13)
--- NOTE | 2019-08-06 09:02 | Nephrology Progress Note ---
Assessment/Plan Problem List: (1) Acute renal failure (2) Severe anemia (3) Sepsis (4) Diabetes mellitus (5) Hypothyroidism Assessment Alexi Cr lowering 2.6 to 1.8 Sepsis / Pneumonia / UTI / Hypothermia Respiratory failure HypoThyroidism h/o CVA Anemia Dementia Plan Serum creatinine up to 1.6 Will discontinue Lasix Thyroid function tests. IV iron Phos supplement as needed antibiotics avoid nephrotoxics monitor renal parameters check TFTs- adjust synthroid dose per orders Subjective ROS Limited/Unobtainable: No Constitutional: Reports: malaise, weakness Objective Objective Last 24 Hour Vital Signs Date Time Temp Pulse Resp B/P (MAP) Pulse Ox O2 Delivery O2 Flow Rate FiO2 08/06/19 08:00 96.6 75 20 132/71 (91) 100 08/06/19 04:00 62 08/06/19 04:00 97.3 59 18 125/49 (74) 97 08/06/19 00:00 53 08/06/19 00:00 98.0 51 18 130/55 (80) 98 08/05/19 21:00 Nasal Cannula 4.0 08/05/19 20:00 96.7 53 16 103/55 (71) 100 08/05/19 20:00 55 08/05/19 19:38 55 16 97 Nasal Cannula 4.0 36 08/05/19 19:38 97 Nasal Cannula 4.0 36 08/05/19 16:00 97.8 60 20 96/51 (66) 100 08/05/19 16:00 55 08/05/19 12:00 58 08/05/19 12:00 97.8 62 20 137/58 (84) 93 08/05/19 10:38 62 107/45 08/05/19 10:23 62 Intake and Output 08/05/19 08/06/19 19:00 07:00 Intake Total 950 ml Output Total 300 ml Balance 650 ml Free Water 300 ml Tube Feeding 650 ml Output Urine Total 300 ml Stool Total 0 ml # Voids 2 Laboratory Tests 08/06/19 05:45: White Blood Count 5.3, Red Blood Count 3.77L, Hemoglobin 9.4L, Hematocrit 30.0L , Mean Corpuscular Volume 79L, Mean Corpuscular Hemoglobin 24.9L, Mean Corpuscular Hemoglobin Concent 31.3L, Red Cell Distribution Width 16.8H, Platelet Count 687H, Mean Platelet Volume 5.5L, Neutrophils (%) (Auto) 40.0L, Lymphocytes (%) (Auto) 38.6, Monocytes (%) (Auto) 10.5H, Eosinophils (%) (Auto) 7.6H, Basophils (%) (Auto) 3.2H, Sodium Level 142, Potassium Level 4.8, Chloride Level 103, Carbon Dioxide Level 25, Anion Gap 14, Blood Urea Nitrogen 42H, Creatinine 1.6H, Estimat Glomerular Filtration Rate 49.9, Glucose Level 72L , Calcium Level 9.6 Height (Feet): 6 Height (Inches): 1.00 Weight (Pounds): 160 General Appearance: no apparent distress Cardiovascular: bradycardia, arrhythmia Respiratory/Chest: decreased breath sounds Abdomen: soft Objective no change Clovis Benites MD Aug 06, 2019 09:02
--- NOTE | 2019-08-06 09:35 | NUR ---
NURSE NOTES: Received report from Lauren. Pt is A/A/Ox1, nonverbal. calm and comfortable in bed in no acute distress noted. HOB elevated for aspiration precautions, bilateral lower extremities elevated with pillows. NGT patent and placement assessed. NO gastric residual noted. tolerating tube feeding well. IV access intact and patent. Bed locked in lowest position, bed alarm on, call light within reach. Will cont to reach family member for consent purposes. Bilateral soft wrist restraints inplaced. Circulation assessed. Will continue to monitor pt and follow plans of care.
[2019-08-06 09:43] LABS: ALANINE AMINOTRANSFERASE 30 U/L (12-78); ALBUMIN 2.3 G/DL (3.4-5.0); ALKALINE PHOSPHATASE 119 U/L (46-116); ASPARTATE AMINO TRANSFERASE 37 U/L (15-37); BILIRUBIN,DIRECT < 0.1 MG/DL (0.0-0.3); BILIRUBIN,TOTAL 0.2 MG/DL (0.2-1.0); PHOSPHORUS 5.2 MG/DL (2.5-4.9)
--- NOTE | 2019-08-06 10:30 | NUR ---
NURSE NOTES: WOUND CARE TREATMENT RENDERED AND WOUND PHOTO TAKEN AND UPLOADED. WILL CONT TO MONITOR.
--- NOTE | 2019-08-06 11:11 | General Progress Note ---
Assessment/Plan Status: unchanged Assessment/Plan: Assessment/Plan Problems: (1) Failure to thrive / dysphagia SNOMED: 57288371 (2) Anemia ICD Codes: D64.9 - Anemia, unspecified SNOMED: 909882518 (3) Hypoalbuminemia ICD Codes: E88.09 - Other disorders of plasma-protein metabolism, not elsewhere classified SNOMED: 082697204 (4) Severe malnutrition ICD Codes: E43 - Unspecified severe protein-calorie malnutrition SNOMED: 60133227 (5) Sarcopenia ICD Codes: M62.84 - Sarcopenia SNOMED: 884860472 (6) Encounter for PEG (percutaneous endoscopic gastrostomy) ICD Codes: Z43.1 - Encounter for attention to gastrostomy SNOMED: 675922748, 862375250 (7) Severe anemia ICD Codes: D64.9 - Anemia, unspecified SNOMED: 281017111 Status: unchanged Recommendations PEG postponed, due to consent issue patient currently on NC 4L. Anemia work-up reviewed>> iron deficient, occult blood stool negative As needed transfusions ppi NGTFs --> can retry Thursday for PEG electrolyte correction Will follow with additional recommendations post procedure Subjective Allergies: Coded Allergies: PENICILLINS (Verified Allergy, Unknown, 10/27/18) tolretas cephalosporins Subjective Above noted non communicative NGT feeds tolerated Objective Last 24 Hour Vital Signs Date Time Temp Pulse Resp B/P (MAP) Pulse Ox O2 Delivery O2 Flow Rate FiO2 08/06/19 09:10 61 18 96 Nasal Cannula 4.0 36 08/06/19 09:10 96 Nasal Cannula 4.0 36 08/06/19 09:02 75 132/71 08/06/19 09:00 Nasal Cannula 4.0 08/06/19 08:00 52 08/06/19 08:00 96.6 75 20 132/71 (91) 100 08/06/19 04:00 62 08/06/19 04:00 97.3 59 18 125/49 (74) 97 08/06/19 00:00 53 08/06/19 00:00 98.0 51 18 130/55 (80) 98 08/05/19 21:00 Nasal Cannula 4.0 08/05/19 20:00 96.7 53 16 103/55 (71) 100 08/05/19 20:00 55 08/05/19 19:38 55 16 97 Nasal Cannula 4.0 36 08/05/19 19:38 97 Nasal Cannula 4.0 36 08/05/19 16:00 97.8 60 20 96/51 (66) 100 08/05/19 16:00 55 08/05/19 12:00 58 08/05/19 12:00 97.8 62 20 137/58 (84) 93 Intake and Output 08/05/19 08/06/19 19:00 07:00 Intake Total 950 ml Output Total 300 ml Balance 650 ml Free Water 300 ml Tube Feeding 650 ml Output Urine Total 300 ml Stool Total 0 ml # Voids 2 Laboratory Tests 08/06/19 05:45: White Blood Count 5.3, Red Blood Count 3.77L, Hemoglobin 9.4L, Hematocrit 30.0L , Mean Corpuscular Volume 79L, Mean Corpuscular Hemoglobin 24.9L, Mean Corpuscular Hemoglobin Concent 31.3L, Red Cell Distribution Width 16.8H, Platelet Count 687H, Mean Platelet Volume 5.5L, Neutrophils (%) (Auto) 40.0L, Lymphocytes (%) (Auto) 38.6, Monocytes (%) (Auto) 10.5H, Eosinophils (%) (Auto) 7.6H, Basophils (%) (Auto) 3.2H, Sodium Level 142, Potassium Level 4.8, Chloride Level 103, Carbon Dioxide Level 25, Anion Gap 14, Blood Urea Nitrogen 42H, Creatinine 1.6H, Estimat Glomerular Filtration Rate 49.9, Glucose Level 72L , Calcium Level 9.6, Phosphorus Level 5.2H, Magnesium Level 2.9H, Total Bilirubin 0.2, Direct Bilirubin < 0.1, Aspartate Amino Transf (AST/SGOT) 37, Alanine Aminotransferase (ALT/SGPT) 30, Alkaline Phosphatase 119H, Total Protein 9.3H, Albumin 2.3L, Thyroid Stimulating Hormone (TSH) 8.510H, Free Thyroxine 1.10, Free Triiodothyronine 2.0L Height (Feet): 6 Height (Inches): 1.00 Weight (Pounds): 160 Objective Debilitated AA man NCAT supple CTA RRR abd soft ND NT no edema Vanita Agudelo MD Aug 06, 2019 11:11
[2019-08-06 12:00] VITALS: BP 114/50
[2019-08-06] MEDS ORDERED: Sterile Water Irrig 1000ml IRRIG ONE (12:54)
--- NOTE | 2019-08-06 13:35 | Internal Med Progress Note ---
Subjective Date of Service: Aug 06, 2019 Physician Name Xander Bah Attending Physician Lamont Hayes MD Current Medications Medications (Trade) Dose Ordered Sig/Kike Route PRN Reason Start Time Stop Time Status Last Admin Dose Admin Acetaminophen (Tylenol) 650 mg Q4H PRN ORAL fever 07/21/19 05:30 08/17/19 05:29 Alprazolam (Xanax) 0.5 mg Q6H PRN ORAL For Anxiety 08/02/19 20:45 08/09/19 20:44 08/04/19 04:29 Amlodipine Besylate (Norvasc) 2.5 mg DAILY NG 07/24/19 09:00 08/23/19 08:59 08/06/19 09:02 Docusate Sodium (Colace) 100 mg TWICE A DAY ORAL 08/04/19 09:00 09/03/19 08:59 08/06/19 09:02 Folic Acid (Folate) 2 mg DAILY ORAL 07/21/19 09:00 08/19/19 11:29 08/06/19 09:02 Lansoprazole (Prevacid) 30 mg BID NG 07/23/19 18:00 08/22/19 17:59 08/06/19 09:02 Levothyroxine Sodium (Synthroid) 50 mcg DAILY@0630 ORAL 07/21/19 06:30 08/18/19 06:29 08/06/19 06:45 Ondansetron HCl (Zofran) 4 mg Q6H PRN IVP Nausea & Vomiting 07/21/19 08:15 08/17/19 14:14 Polyethylene Glycol (Miralax) 17 gm DAILYPRN PRN ORAL Constipation 07/21/19 05:30 08/17/19 05:29 Quetiapine Fumarate (SEROqueL) 25 mg Q8H PRN ORAL agitation 07/21/19 05:30 08/17/19 05:29 08/05/19 22:00 Allergies: Coded Allergies: PENICILLINS (Verified Allergy, Unknown, 10/27/18) tolretas cephalosporins ROS Limited/Unobtainable: Yes Subjective 84 YO M admitted with altered mental status. Now pneumonia and severe sepsis. Cover for Int Med-Dr Hayes. PEG postponed Objective Last Vital Signs Date Time Temp Pulse Resp B/P (MAP) Pulse Ox O2 Delivery O2 Flow Rate FiO2 08/06/19 12:27 55 08/06/19 12:00 96.3 20 114/50 (71) 100 08/06/19 09:10 Nasal Cannula 4.0 36 Laboratory Tests Test 08/06/19 05:45 White Blood Count 5.3 K/UL (4.8-10.8) Red Blood Count 3.77 M/UL (4.70-6.10) L Hemoglobin 9.4 G/DL (14.2-18.0) L Hematocrit 30.0 % (42.0-52.0) L Mean Corpuscular Volume 79 FL (80-99) L Mean Corpuscular Hemoglobin 24.9 PG (27.0-31.0) L Mean Corpuscular Hemoglobin Concent 31.3 G/DL (32.0-36.0) L Red Cell Distribution Width 16.8 % (11.6-14.8) H Platelet Count 687 K/UL (150-450) H Mean Platelet Volume 5.5 FL (6.5-10.1) L Neutrophils (%) (Auto) 40.0 % (45.0-75.0) L Lymphocytes (%) (Auto) 38.6 % (20.0-45.0) Monocytes (%) (Auto) 10.5 % (1.0-10.0) H Eosinophils (%) (Auto) 7.6 % (0.0-3.0) H Basophils (%) (Auto) 3.2 % (0.0-2.0) H Sodium Level 142 MMOL/L (136-145) Potassium Level 4.8 MMOL/L (3.5-5.1) Chloride Level 103 MMOL/L (98-107) Carbon Dioxide Level 25 MMOL/L (21-32) Anion Gap 14 mmol/L (5-15) Blood Urea Nitrogen 42 mg/dL (7-18) H Creatinine 1.6 MG/DL (0.55-1.30) H Estimat Glomerular Filtration Rate 49.9 mL/min (>60) Glucose Level 72 MG/DL (74-106) L Calcium Level 9.6 MG/DL (8.5-10.1) Phosphorus Level 5.2 MG/DL (2.5-4.9) H Magnesium Level 2.9 MG/DL (1.8-2.4) H Total Bilirubin 0.2 MG/DL (0.2-1.0) Direct Bilirubin < 0.1 MG/DL (0.0-0.3) Aspartate Amino Transf (AST/SGOT) 37 U/L (15-37) Alanine Aminotransferase (ALT/SGPT) 30 U/L (12-78) Alkaline Phosphatase 119 U/L (46-116) H Total Protein 9.3 G/DL (6.4-8.2) H Albumin 2.3 G/DL (3.4-5.0) L Thyroid Stimulating Hormone (TSH) 8.510 uiU/mL (0.358-3.740) Free Thyroxine 1.10 NG/DL (0.76-1.46) Free Triiodothyronine 2.0 pg/mL (2.3-4.2) L Intake and Output 08/05/19 08/06/19 19:00 07:00 Intake Total 1015 ml Output Total 300 ml Balance 715 ml Free Water 300 ml Tube Feeding 715 ml Output Urine Total 300 ml Stool Total 0 ml # Voids 2 Objective PHYSICAL EXAMINATION: GENERAL: The patient is a well-developed, well-nourished, thin-appearing male, who is in moderate respiratory distress. HEENT: Eyes, pupils are equal and responsive to light and accommodation. Extraocular movements are intact. NECK: Supple without lymphadenopathy. CHEST: Venturi mask; Lungs with bilateral wheezes and rhonchi; breath sounds decreased at bases CARDIOVASCULAR: Regular rhythm and rate. S1 and S2 are normal without murmurs, rubs, or gallops. ABDOMEN: Soft, nontender, and nondistended. Positive bowel sounds. No evidence of hepatosplenomegaly. Currently, no rebound or guarding noted. EXTREMITIES: Negative for clubbing, cyanosis, or edema. RECTAL/GENITAL: Not performed. NEUROLOGIC: Cranial nerves II through XII are grossly intact without focal deficits. Motor strength is 5/5 bilaterally. Deep tendon reflexes are 2+ plantar. Assessment/Plan Assessment/Plan ASSESSMENT: This is an 84-year-old male. 1. Bilateral pneumonia. 2. Respiratory failure. 3. Probable sepsis. 4. Altered mental status. 5. Diabetes type 2. 6. Hypothyroidism. 7. Cerebrovascular disease. 8. Acute renal failure. 9. Leukocytosis 10. Hypernatremia 11. Right pleural effusion TREATMENT: 1. Respiratory failure/bilateral pneumonia. A Pulmonary consultation has been obtained with Dr. Vania Hui. The patient is currently admitted to the intensive care unit. The patient is currently on a venturi mask. The patient has been started empirically on vancomycin and ertapenem. A sputum culture =MRSA. ABX=vanco per ID=Dr Raoch 2. Altered mental status. This is probably secondary to hypoxia secondary to pneumonia as above. 3. Diabetes type 2. The patient was admitted without antihyperglycemic medication. 4. Hypothyroidism. Continue Levoxyl as above. 5. Cerebrovascular disease. The patient is status post cerebrovascular accident. 6. Acute renal failure. This may be secondary to acute dehydration. The patient is currently receiving intravenous fluids. 7. Severe Sepsis. ABX=vanco . ID=Dr Matias 8. S/P right thoracentesis 07/26/19 9. Endoscopy/PEG postponed-see GI note Xander Bah MD Aug 06, 2019 13:35
--- NOTE | 2019-08-06 14:16 | Infectious Diseases Prog Note ---
Assessment/Plan Assessment/Plan Assessment: Severe sepsis, sp Pneumonia, Sp Rx Probable UTI, SP Rx -07/25 CXR: Markedly increased right basilar opacity, likely increasing pleural fluid -07/22 CXR: Worsening CHF -u/a wbc 15-20, nit neg, leuk +3; ucx <10k Proteus sp (R Amp, ancef, macrobid ; otherwise), 70-80K S. viridans -07/19 CXR: marked worsening of pleural and parenchymal disease at the right lung base.There is also increasing parenchymal consolidation and atelectasis in the left infrahilar region. -CXR: Perihilar and basilar infiltrates. Findings suspicious for pneumonia. -influenza sc neg -Bcx NTD -sp cx MRSA, C. albicans -legionella ag urine neg R pleural effusion -07/26 SP thoracentesis: Successful ultrasound-guided thoracentesis, yielding 780 milliliters of fluid --Cx NTD -07/26 CXR: Improved right pleural effusion, post thoracentesis. No radiographically evident complication Hypothermia, SP Leukocytosis, SP Acute respiratory failure, sp NRB mask/VEnturi mask Lactic acidosis, SP RAMAN, SP Dm2 HTN non verbal hypothyroidism CVA hx of UTI anemia dementia assisted resident Plan: monitor pt off of AB RX - 07/31 Sp IV Vancomycin #14/ for MRSA PNA -07/26 SP Cefepime #5 -07/22 SP Barbara #4 -07/19 SP Ertapenem #2 -07/18 SP IV Amikacin x1, Levaquin x1 -Monitor CBC/CMP, temperatures -aspiration precautions failed the swallow study previously, video swallow showed silent aspiration. non-oral feeding. Thank you for this consultation. Will continue to follow along with you. Subjective Allergies: Coded Allergies: PENICILLINS (Verified Allergy, Unknown, 10/27/18) tolretas cephalosporins Subjective afebrile no leukocytosis at 4l NC Objective Vital Signs Last 24 Hour Vital Signs Date Time Temp Pulse Resp B/P (MAP) Pulse Ox O2 Delivery O2 Flow Rate FiO2 08/06/19 12:27 55 08/06/19 12:00 96.3 64 20 114/50 (71) 100 08/06/19 09:10 61 18 96 Nasal Cannula 4.0 36 08/06/19 09:10 96 Nasal Cannula 4.0 36 08/06/19 09:02 75 132/71 08/06/19 09:00 Nasal Cannula 4.0 08/06/19 08:00 52 08/06/19 08:00 96.6 75 20 132/71 (91) 100 08/06/19 04:00 62 08/06/19 04:00 97.3 59 18 125/49 (74) 97 08/06/19 00:00 53 08/06/19 00:00 98.0 51 18 130/55 (80) 98 08/05/19 21:00 Nasal Cannula 4.0 08/05/19 20:00 96.7 53 16 103/55 (71) 100 08/05/19 20:00 55 08/05/19 19:38 55 16 97 Nasal Cannula 4.0 36 08/05/19 19:38 97 Nasal Cannula 4.0 36 08/05/19 16:00 97.8 60 20 96/51 (66) 100 08/05/19 16:00 55 Height (Feet): 6 Height (Inches): 1.00 Weight (Pounds): 160 Objective GENERAL: no respiratory distress. NECK: Supple CHEST: decreased breath sounds CARDIOVASCULAR: Regular rhythm and rate. S1 and S2 are normal without murmurs, rubs, or gallops. ABDOMEN: Soft, nontender, and nondistended. Positive bowel sounds. No evidence of hepatosplenomegaly. EXTREMITIES: Negative for clubbing, cyanosis, or edema. Laboratory Tests Test 08/06/19 05:45 White Blood Count 5.3 K/UL (4.8-10.8) Red Blood Count 3.77 M/UL (4.70-6.10) L Hemoglobin 9.4 G/DL (14.2-18.0) L Hematocrit 30.0 % (42.0-52.0) L Mean Corpuscular Volume 79 FL (80-99) L Mean Corpuscular Hemoglobin 24.9 PG (27.0-31.0) L Mean Corpuscular Hemoglobin Concent 31.3 G/DL (32.0-36.0) L Red Cell Distribution Width 16.8 % (11.6-14.8) H Platelet Count 687 K/UL (150-450) H Mean Platelet Volume 5.5 FL (6.5-10.1) L Neutrophils (%) (Auto) 40.0 % (45.0-75.0) L Lymphocytes (%) (Auto) 38.6 % (20.0-45.0) Monocytes (%) (Auto) 10.5 % (1.0-10.0) H Eosinophils (%) (Auto) 7.6 % (0.0-3.0) H Basophils (%) (Auto) 3.2 % (0.0-2.0) H Sodium Level 142 MMOL/L (136-145) Potassium Level 4.8 MMOL/L (3.5-5.1) Chloride Level 103 MMOL/L (98-107) Carbon Dioxide Level 25 MMOL/L (21-32) Anion Gap 14 mmol/L (5-15) Blood Urea Nitrogen 42 mg/dL (7-18) H Creatinine 1.6 MG/DL (0.55-1.30) H Estimat Glomerular Filtration Rate 49.9 mL/min (>60) Glucose Level 72 MG/DL (74-106) L Calcium Level 9.6 MG/DL (8.5-10.1) Phosphorus Level 5.2 MG/DL (2.5-4.9) H Magnesium Level 2.9 MG/DL (1.8-2.4) H Total Bilirubin 0.2 MG/DL (0.2-1.0) Direct Bilirubin < 0.1 MG/DL (0.0-0.3) Aspartate Amino Transf (AST/SGOT) 37 U/L (15-37) Alanine Aminotransferase (ALT/SGPT) 30 U/L (12-78) Alkaline Phosphatase 119 U/L (46-116) H Total Protein 9.3 G/DL (6.4-8.2) H Albumin 2.3 G/DL (3.4-5.0) L Thyroid Stimulating Hormone (TSH) 8.510 uiU/mL (0.358-3.740) Free Thyroxine 1.10 NG/DL (0.76-1.46) Free Triiodothyronine 2.0 pg/mL (2.3-4.2) L Current Medications Medications (Trade) Dose Ordered Sig/Kike Route PRN Reason Start Time Stop Time Status Last Admin Dose Admin Acetaminophen (Tylenol) 650 mg Q4H PRN ORAL fever 07/21/19 05:30 08/17/19 05:29 Alprazolam (Xanax) 0.5 mg Q6H PRN ORAL For Anxiety 08/02/19 20:45 08/09/19 20:44 08/04/19 04:29 Amlodipine Besylate (Norvasc) 2.5 mg DAILY NG 07/24/19 09:00 08/23/19 08:59 08/06/19 09:02 Docusate Sodium (Colace) 100 mg TWICE A DAY ORAL 08/04/19 09:00 09/03/19 08:59 08/06/19 09:02 Folic Acid (Folate) 2 mg DAILY ORAL 07/21/19 09:00 08/19/19 11:29 08/06/19 09:02 Lansoprazole (Prevacid) 30 mg BID NG 07/23/19 18:00 08/22/19 17:59 08/06/19 09:02 Levothyroxine Sodium (Synthroid) 50 mcg DAILY@0630 ORAL 07/21/19 06:30 08/18/19 06:29 08/06/19 06:45 Ondansetron HCl (Zofran) 4 mg Q6H PRN IVP Nausea & Vomiting 07/21/19 08:15 08/17/19 14:14 Polyethylene Glycol (Miralax) 17 gm DAILYPRN PRN ORAL Constipation 07/21/19 05:30 08/17/19 05:29 Quetiapine Fumarate (SEROqueL) 25 mg Q8H PRN ORAL agitation 07/21/19 05:30 08/17/19 05:29 08/05/19 22:00 Danielle Roach M.D. Aug 06, 2019 14:16
[2019-08-06 15:57] VITALS: BP 125/69
[2019-08-06] MEDS ORDERED: Albuterol/Ipratropium 3ml neb HHN PRN (18:45)
--- NOTE | 2019-08-06 19:21 | NUR ---
HAND-OFF: Report given to Lauren.
--- NOTE | 2019-08-06 19:30 | NUR ---
NURSE NOTES: RECEIVED PATIENT LYING IN BED, AWAKE, ALERT/ORIENTED TO SELF, EYES OPEN, HEAD OF BED ELEVATED/ASPIRATION PRECAUTION. NG TUBE INTACT TO RIGHT NARE, TOLERATING FEEDING, PLACEMENT VERIFIED VIA STETHOSCOPE. ALL NEEDS ANTICIPATED AND MET BY NURSING STAFF, NO SIGNS AND SYMPTOMS OF PAIN. NO SIGNS AND SYMPTOMS OF ACUTE CARDIO RESPIRATORY DISTRESS/SHORTNESS OF BREATH, NO PERIPHERAL EDEMA NOTED. BILATERAL WRIST RESTRAINTS INTACT TO PREVENT PATIENT FROM REMOVING TUBING. ABDOMEN SOFT/NON DISTENDED/BOWEL SOUNDS AUDIBLE, INCONTINENT OF B/B, CARE PROVIDED, REPOSITIONED FOR COMFORT/PRESSURE RELIEF. SIDE RAILS UP X3/BED IN LOWEST POSITION FOR SAFETY. CALL LIGHT WITHIN REACH. NAD.
[2019-08-06 20:00] VITALS: BP 113/58
[2019-08-07] VITALS: BP 119/56
[2019-08-07 04:00] VITALS: BP 134/58
--- NOTE | 2019-08-07 06:49 | General Progress Note ---
Assessment/Plan Status: unchanged Assessment/Plan: Assessment/Plan Problems: (1) Failure to thrive / dysphagia SNOMED: 39415935 (2) Anemia ICD Codes: D64.9 - Anemia, unspecified SNOMED: 242734927 (3) Hypoalbuminemia ICD Codes: E88.09 - Other disorders of plasma-protein metabolism, not elsewhere classified SNOMED: 358920083 (4) Severe malnutrition ICD Codes: E43 - Unspecified severe protein-calorie malnutrition SNOMED: 18658922 (5) Sarcopenia ICD Codes: M62.84 - Sarcopenia SNOMED: 065957231 (6) Encounter for PEG (percutaneous endoscopic gastrostomy) ICD Codes: Z43.1 - Encounter for attention to gastrostomy SNOMED: 976002231, 347422347 (7) Severe anemia ICD Codes: D64.9 - Anemia, unspecified SNOMED: 363593100 Status: unchanged Recommendations PEG postponed, due to consent issue patient currently on NC 4L. Anemia work-up reviewed>> iron deficient, occult blood stool negative As needed transfusions ppi NGTFs --> can retry Thursday for PEG electrolyte correction Will follow with additional recommendations post procedure Subjective Allergies: Coded Allergies: PENICILLINS (Verified Allergy, Unknown, 10/27/18) tolretas cephalosporins Subjective Above noted non communicative NGT feeds tolerated Objective Last 24 Hour Vital Signs Date Time Temp Pulse Resp B/P (MAP) Pulse Ox O2 Delivery O2 Flow Rate FiO2 08/07/19 04:00 98.1 63 18 134/58 (83) 96 08/07/19 00:00 55 08/07/19 00:00 98.4 56 18 119/56 (77) 95 08/06/19 21:00 Nasal Cannula 4.0 08/06/19 20:00 58 08/06/19 20:00 98.0 60 20 113/58 (76) 94 08/06/19 16:00 56 08/06/19 15:57 97.1 58 20 125/69 (87) 100 08/06/19 12:27 55 08/06/19 12:00 96.3 64 20 114/50 (71) 100 08/06/19 09:10 61 18 96 Nasal Cannula 4.0 36 08/06/19 09:10 96 Nasal Cannula 4.0 36 08/06/19 09:02 75 132/71 08/06/19 09:00 Nasal Cannula 4.0 08/06/19 08:00 52 08/06/19 08:00 96.6 75 20 132/71 (91) 100 Intake and Output 08/06/19 08/07/19 19:00 07:00 Intake Total 1100 ml 515 ml Balance 1100 ml 515 ml Free Water 320 ml 60 ml Tube Feeding 780 ml 455 ml # Voids 1 2 Height (Feet): 6 Height (Inches): 1.00 Weight (Pounds): 162 Objective Debilitated AA man NCAT supple CTA RRR abd soft ND NT no edema Vnaita Agudelo MD Aug 07, 2019 06:49
[2019-08-07 07:18] LABS: ANION GAP 8 mmol/L (5-15); BASOPHILS % (AUTO) 1.8 % (0.0-2.0); BLOOD UREA NITROGEN 52 mg/dL (7-18); CALCIUM 9.4 MG/DL (8.5-10.1); CARBON DIOXIDE 30 MMOL/L (21-32); CHLORIDE 103 MMOL/L (98-107); CREATININE 1.6 MG/DL (0.55-1.30); EOSINOPHILS % (AUTO) 7.6 % (0.0-3.0); HEMATOCRIT 28.8 % (42.0-52.0); LYMPHOCYTES % (AUTO) 26.2 % (20.0-45.0); MEAN CORPUSCULAR VOLUME 79 FL (80-99); MONOCYTES % (AUTO) 11.1 % (1.0-10.0); NEUTROPHILS % (AUTO) 53.2 % (45.0-75.0); PLATELET COUNT 706 K/UL (150-450); POTASSIUM 4.6 MMOL/L (3.5-5.1); RED BLOOD COUNT 3.62 M/UL (4.70-6.10); RED CELL DISTRIBUTION WIDTH 16.9 % (11.6-14.8); SODIUM 140 MMOL/L (136-145)
--- NOTE | 2019-08-07 07:30 | NUR ---
NURSE NOTES: Received pt from [facility], Pt is awake and confused, pt has NC 2LMP, Pt is on continues cardiac monitoring, pt has intact iv access LFA 22G SL. Pt has NG tube in place is working well. all needs attended, bed is locked and is in the lowest position, call light within easy reach. will continue to monitor.
--- NOTE | 2019-08-07 07:31 | Pulmonology Progress Note ---
Assessment/Plan Assessment/Plan ASSESSMENT Sepsis Acute respiratory failure, requiring NRM, now on VM Bilateral pneumonia R pleural effusion s/p thoracentesis 07/26 Acute metabolic encephalopathy UTI Dysphagia Diabetes mellitus type 2 Acute renal failure Cerebrovascular disease Hypothyroidism Hypernatremia Severe anemia Alzheimer dementia Anemia of iron deficiency PLAN OF CARE tele O2 titrate to keep pulse ox above 92%, currently on O2 via NC; off NRM and VM CXR 07/25 increasing R pleural effusion s/p tap 07/26-> 750 ml of pleural fluid, pleural fluid CX NGTD, cytology pending pulmonary toilet aspiration precautions TF via NGT CXR 07/29 Increasing interstitial and airspace edema, increasing right pleural fluid, over 3 days fup with CXR on Thursday, may need another tap CXR 08/05 noted: bilateral diffuse interstitial and airspace infiltrates versus edema, bilateral pleural effusions, essentially unchanged over 3 days s/p abx as per ID SCX + Staph, Abi , UCX + Proteus , Strep viridans , BCX NGTD , repeated UCX negative swallow evaluation noted, monitor H&H with goal to keep hemoglobin above 7 stool OB negative CEA WNL anemia c/w AID, s/p venofer PEG cancelled 08/05, unable to get consent folic acid supplement DVT GI prophylaxis diuresis , monitor volumes monitor renal parameters, lites ,correct electrolytes as needed, avoid nephrotoxic bowel regimen elevated TSH ; dose of Synthroid increased, repeat TFT in 1 month case discussed and evaluated by supervising physician Subjective Allergies: Coded Allergies: PENICILLINS (Verified Allergy, Unknown, 10/27/18) tolretas cephalosporins Subjective On O2 4 L via NC pulse ox stable , afebrile, no leukocytosis PEG cancelled 08/05 Objective Last 24 Hour Vital Signs Date Time Temp Pulse Resp B/P (MAP) Pulse Ox O2 Delivery O2 Flow Rate FiO2 08/07/19 04:00 45 08/07/19 04:00 98.1 63 18 134/58 (83) 96 08/07/19 00:00 55 08/07/19 00:00 98.4 56 18 119/56 (77) 95 08/06/19 21:00 Nasal Cannula 4.0 08/06/19 20:00 58 08/06/19 20:00 98.0 60 20 113/58 (76) 94 08/06/19 16:00 56 08/06/19 15:57 97.1 58 20 125/69 (87) 100 08/06/19 12:27 55 08/06/19 12:00 96.3 64 20 114/50 (71) 100 08/06/19 09:10 61 18 96 Nasal Cannula 4.0 36 08/06/19 09:10 96 Nasal Cannula 4.0 36 08/06/19 09:02 75 132/71 08/06/19 09:00 Nasal Cannula 4.0 08/06/19 08:00 52 08/06/19 08:00 96.6 75 20 132/71 (91) 100 Intake and Output 08/06/19 08/07/19 19:00 07:00 Intake Total 1100 ml 515 ml Balance 1100 ml 515 ml Free Water 320 ml 60 ml Tube Feeding 780 ml 455 ml # Voids 1 2 Objective HEENT: normocephalic, atraumatic, anicteric, on O2 via NC; NGT with TF Respiratory/Chest: decreased breath sounds Cardiovascular: normal rate Abdomen: soft, non tender Extremities: no edema Neurologic/Psychiatric: abnormal gait Musculoskeletal: atrophy Laboratory Tests 08/07/19 05:20: White Blood Count [Pending], Red Blood Count [Pending], Hemoglobin [Pending], Hematocrit [Pending], Mean Corpuscular Volume [Pending], Mean Corpuscular Hemoglobin [Pending], Mean Corpuscular Hemoglobin Concent [Pending], Red Cell Distribution Width [Pending], Platelet Count [Pending], Mean Platelet Volume [ Pending], Neutrophils (%) (Auto) [Pending], Lymphocytes (%) (Auto) [Pending], Monocytes (%) (Auto) [Pending], Eosinophils (%) (Auto) [Pending], Basophils (%) (Auto) [Pending], Sodium Level 140, Potassium Level 4.6, Chloride Level 103, Carbon Dioxide Level 30, Anion Gap 8, Blood Urea Nitrogen 52H, Creatinine 1.6H, Estimat Glomerular Filtration Rate 49.9, Glucose Level 113H, Calcium Level 9.4 Current Medications Medications (Trade) Dose Ordered Sig/Kike Route PRN Reason Start Time Stop Time Status Last Admin Dose Admin Acetaminophen (Tylenol) 650 mg Q4H PRN ORAL fever 07/21/19 05:30 08/17/19 05:29 Albuterol/ Ipratropium (Albuterol/ Ipratropium) 3 ml Q4H PRN HHN Shortness of Breath 08/06/19 18:45 08/11/19 18:44 Alprazolam (Xanax) 0.5 mg Q6H PRN ORAL For Anxiety 08/02/19 20:45 08/09/19 20:44 08/04/19 04:29 Amlodipine Besylate (Norvasc) 2.5 mg DAILY NG 07/24/19 09:00 08/23/19 08:59 08/06/19 09:02 Docusate Sodium (Colace) 100 mg TWICE A DAY ORAL 08/04/19 09:00 09/03/19 08:59 08/06/19 17:13 Folic Acid (Folate) 2 mg DAILY ORAL 07/21/19 09:00 08/19/19 11:29 08/06/19 09:02 Lansoprazole (Prevacid) 30 mg BID NG 07/23/19 18:00 08/22/19 17:59 08/06/19 17:13 Levothyroxine Sodium (Synthroid) 50 mcg DAILY@0630 ORAL 07/21/19 06:30 08/18/19 06:29 08/07/19 06:38 Ondansetron HCl (Zofran) 4 mg Q6H PRN IVP Nausea & Vomiting 07/21/19 08:15 08/17/19 14:14 Polyethylene Glycol (Miralax) 17 gm DAILYPRN PRN ORAL Constipation 07/21/19 05:30 08/17/19 05:29 Quetiapine Fumarate (SEROqueL) 25 mg Q8H PRN ORAL agitation 07/21/19 05:30 08/17/19 05:29 08/05/19 22:00 Miranda Pimentel TRAIN ANNOUNCER Aug 07, 2019 07:31
[2019-08-07 08:00] VITALS: BP 122/51
[2019-08-07] MEDS: Docusate 100mg cap ORAL SCH (09:23)
--- NOTE | 2019-08-07 11:49 | Nephrology Progress Note ---
Assessment/Plan Problem List: (1) Acute renal failure (2) Severe anemia (3) Sepsis (4) Diabetes mellitus (5) Hypothyroidism Assessment Alexi Cr lowering 2.6 to 1.8 Sepsis / Pneumonia / UTI / Hypothermia Respiratory failure HypoThyroidism h/o CVA Anemia Dementia Plan Serum creatinine up to 1.6 Will discontinue Lasix Thyroid function tests. IV iron Phos supplement as needed antibiotics avoid nephrotoxics monitor renal parameters check TFTs- adjust synthroid dose per orders Subjective ROS Limited/Unobtainable: No Constitutional: Reports: malaise Objective Objective Last 24 Hour Vital Signs Date Time Temp Pulse Resp B/P (MAP) Pulse Ox O2 Delivery O2 Flow Rate FiO2 08/07/19 09:23 64 122/51 08/07/19 09:00 Nasal Cannula 4.0 08/07/19 08:00 97.9 64 20 122/51 (74) 95 08/07/19 07:43 58 08/07/19 07:10 95 Nasal Cannula 4.0 36 08/07/19 07:10 59 18 95 Nasal Cannula 4.0 36 08/07/19 04:00 45 08/07/19 04:00 98.1 63 18 134/58 (83) 96 08/07/19 00:00 55 08/07/19 00:00 98.4 56 18 119/56 (77) 95 08/06/19 21:00 Nasal Cannula 4.0 08/06/19 20:00 58 08/06/19 20:00 98.0 60 20 113/58 (76) 94 08/06/19 16:00 56 08/06/19 15:57 97.1 58 20 125/69 (87) 100 08/06/19 12:27 55 08/06/19 12:00 96.3 64 20 114/50 (71) 100 Intake and Output 08/06/19 08/07/19 19:00 07:00 Intake Total 1100 ml 515 ml Balance 1100 ml 515 ml Free Water 320 ml 60 ml Tube Feeding 780 ml 455 ml # Voids 1 2 Laboratory Tests 08/07/19 05:20: White Blood Count 5.0, Red Blood Count 3.62L, Hemoglobin 9.0L, Hematocrit 28.8L , Mean Corpuscular Volume 79L, Mean Corpuscular Hemoglobin 25.0L, Mean Corpuscular Hemoglobin Concent 31.4L, Red Cell Distribution Width 16.9H, Platelet Count 706H, Mean Platelet Volume 5.9L, Neutrophils (%) (Auto) 53.2, Lymphocytes (%) (Auto) 26.2, Monocytes (%) (Auto) 11.1H, Eosinophils (%) (Auto) 7.6H, Basophils (%) (Auto) 1.8, Sodium Level 140, Potassium Level 4.6, Chloride Level 103, Carbon Dioxide Level 30, Anion Gap 8, Blood Urea Nitrogen 52H, Creatinine 1.6H, Estimat Glomerular Filtration Rate 49.9, Glucose Level 113H, Calcium Level 9.4 Height (Feet): 6 Height (Inches): 1.00 Weight (Pounds): 162 General Appearance: no apparent distress Objective no change Clovis Benites MD Aug 07, 2019 11:49
[2019-08-07 12:00] VITALS: BP 135/73
--- NOTE | 2019-08-07 12:39 | Internal Med Progress Note ---
Subjective Date of Service: Aug 07, 2019 Physician Name Xander Bah Attending Physician Lamont Hayes MD Current Medications Medications (Trade) Dose Ordered Sig/Kike Route PRN Reason Start Time Stop Time Status Last Admin Dose Admin Acetaminophen (Tylenol) 650 mg Q4H PRN ORAL fever 07/21/19 05:30 08/17/19 05:29 Albumin Human 100 ml @ 100 mls/hr ONCE IV 08/07/19 12:00 08/07/19 13:00 Albuterol/ Ipratropium (Albuterol/ Ipratropium) 3 ml Q4H PRN HHN Shortness of Breath 08/06/19 18:45 08/11/19 18:44 Alprazolam (Xanax) 0.5 mg Q6H PRN ORAL For Anxiety 08/02/19 20:45 08/09/19 20:44 08/04/19 04:29 Amlodipine Besylate (Norvasc) 2.5 mg DAILY NG 07/24/19 09:00 08/23/19 08:59 08/07/19 09:23 Docusate Sodium (Colace) 100 mg TWICE A DAY NG 08/07/19 18:00 09/06/19 17:59 Folic Acid (Folate) 2 mg DAILY ORAL 07/21/19 09:00 08/19/19 11:29 08/07/19 09:23 Lansoprazole (Prevacid) 30 mg BID NG 07/23/19 18:00 08/22/19 17:59 08/07/19 09:23 Levothyroxine Sodium (Synthroid) 50 mcg DAILY@0630 ORAL 07/21/19 06:30 08/18/19 06:29 08/07/19 06:38 Ondansetron HCl (Zofran) 4 mg Q6H PRN IVP Nausea & Vomiting 07/21/19 08:15 08/17/19 14:14 Polyethylene Glycol (Miralax) 17 gm DAILYPRN PRN ORAL Constipation 07/21/19 05:30 08/17/19 05:29 Quetiapine Fumarate (SEROqueL) 25 mg Q8H PRN ORAL agitation 07/21/19 05:30 08/17/19 05:29 08/07/19 09:23 Allergies: Coded Allergies: PENICILLINS (Verified Allergy, Unknown, 10/27/18) tolretas cephalosporins ROS Limited/Unobtainable: No Constitutional: Reports: no symptoms HEENT: Reports: no symptoms Cardiovascular: Reports: no symptoms Respiratory: Reports: no symptoms Gastrointestinal/Abdominal: Reports: no symptoms Genitourinary: Reports: no symptoms Neurologic/Psychiatric: Reports: no symptoms Subjective 84 YO M admitted with altered mental status. Now pneumonia and severe sepsis. Cover for Int Ravi-Dr Hayes. PEG postponed Objective Last Vital Signs Date Time Temp Pulse Resp B/P (MAP) Pulse Ox O2 Delivery O2 Flow Rate FiO2 08/07/19 09:23 64 122/51 08/07/19 09:00 Nasal Cannula 4.0 08/07/19 08:00 97.9 20 95 08/07/19 07:10 36 Laboratory Tests Test 08/07/19 05:20 White Blood Count 5.0 K/UL (4.8-10.8) Red Blood Count 3.62 M/UL (4.70-6.10) L Hemoglobin 9.0 G/DL (14.2-18.0) L Hematocrit 28.8 % (42.0-52.0) L Mean Corpuscular Volume 79 FL (80-99) L Mean Corpuscular Hemoglobin 25.0 PG (27.0-31.0) L Mean Corpuscular Hemoglobin Concent 31.4 G/DL (32.0-36.0) L Red Cell Distribution Width 16.9 % (11.6-14.8) H Platelet Count 706 K/UL (150-450) H Mean Platelet Volume 5.9 FL (6.5-10.1) L Neutrophils (%) (Auto) 53.2 % (45.0-75.0) Lymphocytes (%) (Auto) 26.2 % (20.0-45.0) Monocytes (%) (Auto) 11.1 % (1.0-10.0) H Eosinophils (%) (Auto) 7.6 % (0.0-3.0) H Basophils (%) (Auto) 1.8 % (0.0-2.0) Sodium Level 140 MMOL/L (136-145) Potassium Level 4.6 MMOL/L (3.5-5.1) Chloride Level 103 MMOL/L (98-107) Carbon Dioxide Level 30 MMOL/L (21-32) Anion Gap 8 mmol/L (5-15) Blood Urea Nitrogen 52 mg/dL (7-18) H Creatinine 1.6 MG/DL (0.55-1.30) H Estimat Glomerular Filtration Rate 49.9 mL/min (>60) Glucose Level 113 MG/DL (74-106) H Calcium Level 9.4 MG/DL (8.5-10.1) Intake and Output 08/06/19 08/07/19 19:00 07:00 Intake Total 1100 ml 515 ml Balance 1100 ml 515 ml Free Water 320 ml 60 ml Tube Feeding 780 ml 455 ml # Voids 1 2 Objective PHYSICAL EXAMINATION: GENERAL: The patient is a well-developed, well-nourished, thin-appearing male, who is in moderate respiratory distress. HEENT: Eyes, pupils are equal and responsive to light and accommodation. Extraocular movements are intact. NECK: Supple without lymphadenopathy. CHEST: Venturi mask; Lungs with bilateral wheezes and rhonchi; breath sounds decreased at bases CARDIOVASCULAR: Regular rhythm and rate. S1 and S2 are normal without murmurs, rubs, or gallops. ABDOMEN: Soft, nontender, and nondistended. Positive bowel sounds. No evidence of hepatosplenomegaly. Currently, no rebound or guarding noted. EXTREMITIES: Negative for clubbing, cyanosis, or edema. RECTAL/GENITAL: Not performed. NEUROLOGIC: Cranial nerves II through XII are grossly intact without focal deficits. Motor strength is 5/5 bilaterally. Deep tendon reflexes are 2+ plantar. Assessment/Plan Assessment/Plan ASSESSMENT: This is an 84-year-old male. 1. Bilateral pneumonia. 2. Respiratory failure. 3. Probable sepsis. 4. Altered mental status. 5. Diabetes type 2. 6. Hypothyroidism. 7. Cerebrovascular disease. 8. Acute renal failure. 9. Leukocytosis 10. Hypernatremia 11. Right pleural effusion 12. dysphagia TREATMENT: 1. Respiratory failure/bilateral pneumonia. A Pulmonary consultation has been obtained with Dr. Vania Hui. The patient is currently admitted to the intensive care unit. The patient is currently on a venturi mask. The patient has been started empirically on vancomycin and ertapenem. A sputum culture =MRSA. S/P vanco per ID=Dr Roach 2. Altered mental status. This is probably secondary to hypoxia secondary to pneumonia as above. 3. Diabetes type 2. The patient was admitted without antihyperglycemic medication. 4. Hypothyroidism. Continue Levoxyl as above. 5. Cerebrovascular disease. The patient is status post cerebrovascular accident. 6. Acute renal failure. This may be secondary to acute dehydration. The patient is currently receiving intravenous fluids. 7. Severe Sepsis. ABX=vanco . ID=Dr Matias 8. S/P right thoracentesis 07/26/19 9. Endoscopy/PEG postponed-see GI note Xander Bah MD Aug 07, 2019 12:39
[2019-08-07 16:00] VITALS: BP 137/57
[2019-08-07] MEDS: Docusate 100mg/10ml Liq NG SCH (17:28)
--- NOTE | 2019-08-07 19:17 | NUR ---
HAND-OFF: Report given to CRIS BURGOS. pt is awake and stable.
--- NOTE | 2019-08-07 19:29 | NUR ---
NURSE NOTES: RESTED WELL, NO SIGNIFICANT CHANGE OF CONDITION NOTED. SAFETY MAINTAINED. NAD.
[2019-08-07 20:00] VITALS: BP 145/62
[2019-08-08] VITALS (13 sets, daily range): BP systolic 100–142; BP diastolic 47–70
--- NOTE | 2019-08-08 06:00 | NUR ---
NURSE NOTES: NPO POST MIDNIGHT PENDING EGD/COLONOSCOPY. RESTED WELL, NO SIGNIFICANT CHANGE OF CONDITION NOTED THROUGHOUT THE NIGHT. SAFETY MAINTAINED. NAD.
--- NOTE | 2019-08-08 07:39 | NUR ---
NURSE NOTES: Received pt from CRIS AUBREY, Pt is awake and confused, pt has NC 2LMP, Pt is on continues cardiac monitoring, pt has intact iv access RH 22G SL. Pt has NG tube in place is patent, pt is NPO from mid night due to PEG/EGD. all needs attended, bed is locked and is in the lowest position, call light within easy reach. will continue to monitor.
[2019-08-08 08:02] LABS: BASOPHILS % (AUTO) 2.4 % (0.0-2.0); EOSINOPHILS % (AUTO) 6.9 % (0.0-3.0); HEMATOCRIT 28.5 % (42.0-52.0); HEMOGLOBIN 9.1 G/DL (14.2-18.0); LYMPHOCYTES % (AUTO) 37.3 % (20.0-45.0); MEAN CORPUSCULAR VOLUME 78 FL (80-99); MONOCYTES % (AUTO) 9.5 % (1.0-10.0); PLATELET COUNT 725 K/UL (150-450); RED BLOOD COUNT 3.63 M/UL (4.70-6.10); RED CELL DISTRIBUTION WIDTH 16.5 % (11.6-14.8); WHITE BLOOD COUNT 5.8 K/UL (4.8-10.8)
[2019-08-08 08:03] LABS: ALANINE AMINOTRANSFERASE 24 U/L (12-78); ALBUMIN 2.9 G/DL (3.4-5.0); ALBUMIN/GLOBULIN RATIO 0.4 (1.0-2.7); ALKALINE PHOSPHATASE 114 U/L (46-116); ANION GAP 9 mmol/L (5-15); ASPARTATE AMINO TRANSFERASE 30 U/L (15-37); BILIRUBIN,TOTAL 0.2 MG/DL (0.2-1.0); BLOOD UREA NITROGEN 41 mg/dL (7-18); CALCIUM 9.8 MG/DL (8.5-10.1); CARBON DIOXIDE 27 MMOL/L (21-32); CHLORIDE 103 MMOL/L (98-107); CREATININE 1.3 MG/DL (0.55-1.30); PHOSPHORUS 3.9 MG/DL (2.5-4.9); POTASSIUM 4.7 MMOL/L (3.5-5.1); SODIUM 139 MMOL/L (136-145)
[2019-08-08] MEDS: Docusate 100mg/10ml Liq NG SCH ×2 (09:00→17:18)
--- NOTE | 2019-08-08 09:53 | Pre-Procedure Note/Attestation ---
Pre-Procedure Note/Attestation Complete Prior to Procedure Planned Procedure: not applicable Procedure Narrative: egd/peg Indications for Procedure Pre-Operative Diagnosis: dysphagia Attestation I attest that I discussed the nature of the procedure; its benefits; risks and complications; and alternatives (and the risks and benefits of such alternatives ), prior to the procedure, with the patient (or the patient's legal floor representative). I attest that, if there was a reasonable possibility of needing a blood transfusion, the patient (or the patient's legal floor representative) was given the [facility] standardized written summary, pursuant to the Suresh Royer Blood Safety Act ([place] Health and Safety Code # 1645, as amended). I attest that I re-evaluated the patient just prior to the surgery and that there has been no change in the patient's H&P, except as documented below: Darrick Rosario MD Aug 08, 2019 09:53
[2019-08-08] MEDS ORDERED: Clindamycin 600mg 50 ML IV SCH (10:00)
--- NOTE | 2019-08-08 10:08 | Infectious Diseases Prog Note ---
Assessment/Plan Assessment/Plan Assessment: Severe sepsis, sp Pneumonia, Sp Rx Probable UTI, SP Rx -07/25 CXR: Markedly increased right basilar opacity, likely increasing pleural fluid -07/22 CXR: Worsening CHF -u/a wbc 15-20, nit neg, leuk +3; ucx <10k Proteus sp (R Amp, ancef, macrobid ; otherwise), 70-80K S. viridans -07/19 CXR: marked worsening of pleural and parenchymal disease at the right lung base.There is also increasing parenchymal consolidation and atelectasis in the left infrahilar region. -CXR: Perihilar and basilar infiltrates. Findings suspicious for pneumonia. -influenza sc neg -Bcx NTD -sp cx MRSA, C. albicans -legionella ag urine neg R pleural effusion -07/26 SP thoracentesis: Successful ultrasound-guided thoracentesis, yielding 780 milliliters of fluid --Cx NTD -07/26 CXR: Improved right pleural effusion, post thoracentesis. No radiographically evident complication Hypothermia, SP Leukocytosis, SP Acute respiratory failure, sp NRB mask/VEnturi mask Lactic acidosis, SP RAMAN, SP Dm2 HTN non verbal hypothyroidism CVA hx of UTI anemia dementia [facility] Plan: monitor pt off of AB RX - 07/31 Sp IV Vancomycin #14/ for MRSA PNA -07/26 SP Cefepime #5 -07/22 SP Barbara #4 -07/19 SP Ertapenem #2 -07/18 SP IV Amikacin x1, Levaquin x1 -Monitor CBC/CMP, temperatures -aspiration precautions failed the swallow study previously, video swallow showed silent aspiration. non-oral feeding. Thank you for this consultation. Will continue to follow along with you. Subjective Allergies: Coded Allergies: PENICILLINS (Verified Allergy, Unknown, 10/27/18) tolretas cephalosporins Subjective comfortable afebrile Objective Vital Signs Last 24 Hour Vital Signs Date Time Temp Pulse Resp B/P (MAP) Pulse Ox O2 Delivery O2 Flow Rate FiO2 08/08/19 09:00 56 135/62 08/08/19 09:00 Nasal Cannula 4.0 08/08/19 07:47 96.8 56 20 135/62 (86) 100 08/08/19 07:43 58 08/08/19 04:00 54 08/08/19 04:00 97.9 60 18 142/60 (87) 98 08/08/19 00:00 96.9 57 18 141/70 (93) 97 08/08/19 00:00 59 08/07/19 21:32 97 Nasal Cannula 4.0 36 08/07/19 21:32 61 18 97 Nasal Cannula 4.0 36 08/07/19 21:00 Nasal Cannula 4.0 08/07/19 20:00 97.4 57 18 145/62 (89) 99 08/07/19 16:00 97.2 53 20 137/57 (83) 99 08/07/19 15:51 55 08/07/19 12:00 98.0 68 20 135/73 (93) 94 08/07/19 11:44 59 Height (Feet): 6 Height (Inches): 1.00 Weight (Pounds): 160 Respiratory/Chest: normal breath sounds Cardiovascular: regular rhythm Abdomen: non distended Laboratory Tests Test 08/08/19 05:30 White Blood Count 5.8 K/UL (4.8-10.8) Red Blood Count 3.63 M/UL (4.70-6.10) L Hemoglobin 9.1 G/DL (14.2-18.0) L Hematocrit 28.5 % (42.0-52.0) L Mean Corpuscular Volume 78 FL (80-99) L Mean Corpuscular Hemoglobin 25.0 PG (27.0-31.0) L Mean Corpuscular Hemoglobin Concent 31.9 G/DL (32.0-36.0) L Red Cell Distribution Width 16.5 % (11.6-14.8) H Platelet Count 725 K/UL (150-450) H Mean Platelet Volume 5.7 FL (6.5-10.1) L Neutrophils (%) (Auto) 44.0 % (45.0-75.0) L Lymphocytes (%) (Auto) 37.3 % (20.0-45.0) Monocytes (%) (Auto) 9.5 % (1.0-10.0) Eosinophils (%) (Auto) 6.9 % (0.0-3.0) H Basophils (%) (Auto) 2.4 % (0.0-2.0) H Sodium Level 139 MMOL/L (136-145) Potassium Level 4.7 MMOL/L (3.5-5.1) Chloride Level 103 MMOL/L (98-107) Carbon Dioxide Level 27 MMOL/L (21-32) Anion Gap 9 mmol/L (5-15) Blood Urea Nitrogen 41 mg/dL (7-18) H Creatinine 1.3 MG/DL (0.55-1.30) Estimat Glomerular Filtration Rate > 60 mL/min (>60) Glucose Level 92 MG/DL (74-106) Uric Acid 6.9 MG/DL (2.6-7.2) Calcium Level 9.8 MG/DL (8.5-10.1) Phosphorus Level 3.9 MG/DL (2.5-4.9) Magnesium Level 2.9 MG/DL (1.8-2.4) H Total Bilirubin 0.2 MG/DL (0.2-1.0) Aspartate Amino Transf (AST/SGOT) 30 U/L (15-37) Alanine Aminotransferase (ALT/SGPT) 24 U/L (12-78) Alkaline Phosphatase 114 U/L (46-116) C-Reactive Protein, Quantitative 4.8 mg/dL (0.00-0.90) H Total Protein 9.4 G/DL (6.4-8.2) H Albumin 2.9 G/DL (3.4-5.0) L Globulin 6.5 g/dL Albumin/Globulin Ratio 0.4 (1.0-2.7) L Current Medications Medications (Trade) Dose Ordered Sig/Kike Route PRN Reason Start Time Stop Time Status Last Admin Dose Admin Acetaminophen (Tylenol) 650 mg Q4H PRN ORAL fever 07/21/19 05:30 08/17/19 05:29 Albuterol/ Ipratropium (Albuterol/ Ipratropium) 3 ml Q4H PRN HHN Shortness of Breath 08/06/19 18:45 08/11/19 18:44 Alprazolam (Xanax) 0.5 mg Q6H PRN ORAL For Anxiety 08/02/19 20:45 08/09/19 20:44 08/04/19 04:29 Amlodipine Besylate (Norvasc) 2.5 mg DAILY NG 07/24/19 09:00 08/23/19 08:59 08/07/19 09:23 Clindamycin/ Sodium Chloride 50 ml @ 100 mls/hr ONCE IV 08/08/19 10:00 08/08/19 23:59 Docusate Sodium (Colace) 100 mg TWICE A DAY NG 08/07/19 18:00 09/06/19 17:59 08/07/19 17:28 Folic Acid (Folate) 2 mg DAILY ORAL 07/21/19 09:00 08/19/19 11:29 08/07/19 09:23 Lansoprazole (Prevacid) 30 mg BID NG 07/23/19 18:00 08/22/19 17:59 08/07/19 17:29 Levothyroxine Sodium (Synthroid) 50 mcg DAILY@0630 ORAL 07/21/19 06:30 08/18/19 06:29 08/08/19 06:51 Ondansetron HCl (Zofran) 4 mg Q6H PRN IVP Nausea & Vomiting 07/21/19 08:15 08/17/19 14:14 Polyethylene Glycol (Miralax) 17 gm DAILYPRN PRN ORAL Constipation 07/21/19 05:30 08/17/19 05:29 Quetiapine Fumarate (SEROqueL) 25 mg Q8H PRN ORAL agitation 07/21/19 05:30 08/17/19 05:29 08/08/19 08:16 Alexander Lock MD Aug 08, 2019 10:08
--- NOTE | 2019-08-08 10:21 | Nephrology Progress Note ---
Assessment/Plan Problem List: (1) Acute renal failure (2) Severe anemia (3) Sepsis (4) Diabetes mellitus (5) Hypothyroidism Assessment Alexi Cr lowering 2.6 to 1.8 Sepsis / Pneumonia / UTI / Hypothermia Respiratory failure HypoThyroidism h/o CVA Anemia Dementia Plan Serum creatinine up to 1.6 Will discontinue Lasix Thyroid function tests. IV iron Phos supplement as needed antibiotics avoid nephrotoxics monitor renal parameters check TFTs- adjust synthroid dose per orders Subjective ROS Limited/Unobtainable: No Constitutional: Reports: malaise Objective Objective Last 24 Hour Vital Signs Date Time Temp Pulse Resp B/P (MAP) Pulse Ox O2 Delivery O2 Flow Rate FiO2 08/08/19 09:00 56 135/62 08/08/19 09:00 Nasal Cannula 4.0 08/08/19 07:47 96.8 56 20 135/62 (86) 100 08/08/19 07:43 58 08/08/19 04:00 54 08/08/19 04:00 97.9 60 18 142/60 (87) 98 08/08/19 00:00 96.9 57 18 141/70 (93) 97 08/08/19 00:00 59 08/07/19 21:32 97 Nasal Cannula 4.0 36 08/07/19 21:32 61 18 97 Nasal Cannula 4.0 36 08/07/19 21:00 Nasal Cannula 4.0 08/07/19 20:00 97.4 57 18 145/62 (89) 99 08/07/19 16:00 97.2 53 20 137/57 (83) 99 08/07/19 15:51 55 08/07/19 12:00 98.0 68 20 135/73 (93) 94 08/07/19 11:44 59 Intake and Output 08/07/19 08/08/19 19:00 07:00 Intake Total 165 ml 350 ml Output Total 3 ml Balance 165 ml 347 ml Free Water 90 ml IV Total 100 ml Tube Feeding 65 ml 260 ml Output Urine Total 3 ml # Voids 5 Laboratory Tests 08/08/19 05:30: White Blood Count 5.8, Red Blood Count 3.63L, Hemoglobin 9.1L, Hematocrit 28.5L , Mean Corpuscular Volume 78L, Mean Corpuscular Hemoglobin 25.0L, Mean Corpuscular Hemoglobin Concent 31.9L, Red Cell Distribution Width 16.5H, Platelet Count 725H, Mean Platelet Volume 5.7L, Neutrophils (%) (Auto) 44.0L, Lymphocytes (%) (Auto) 37.3, Monocytes (%) (Auto) 9.5, Eosinophils (%) (Auto) 6.9H, Basophils (%) (Auto) 2.4H, Sodium Level 139, Potassium Level 4.7, Chloride Level 103, Carbon Dioxide Level 27, Anion Gap 9, Blood Urea Nitrogen 41H, Creatinine 1.3, Estimat Glomerular Filtration Rate > 60, Glucose Level 92, Uric Acid 6.9, Calcium Level 9.8, Phosphorus Level 3.9, Magnesium Level 2.9H, Total Bilirubin 0.2, Aspartate Amino Transf (AST/SGOT) 30, Alanine Aminotransferase (ALT/SGPT) 24, Alkaline Phosphatase 114, C-Reactive Protein, Quantitative 4.8H, Total Protein 9.4H, Albumin 2.9L, Globulin 6.5, Albumin/ Globulin Ratio 0.4L Height (Feet): 6 Height (Inches): 1.00 Weight (Pounds): 160 General Appearance: no apparent distress Objective no change Clovis Benites MD Aug 08, 2019 10:21
--- NOTE | 2019-08-08 10:21 | NUR ---
CASE MANAGEMENT:REVIEW 08/08/19 SI: SEPSIS. ACUTE RESPIRATORY FAILURE BILATERAL PNA. DYSPHAGIA/MALNUTRITION 96.8 56 20 135/62 100% ON 4L/NC H/H-9.1/28.5 BUN+41 IS:IV CLINDAMYCIN X1 : TELEMETRY STATUS DCP: FROM [facility] PLAN: UNABLE TO PLACE PEG THURSDAY D/T CONSENT AND NON STABILITY PEG PLACEMENT TODAY
[2019-08-08] MEDS ORDERED: DiphenhydrAMINE 50mg/ml Inj IVP PRN (10:45)
[2019-08-08] MEDS ORDERED: fentaNYL 100 mcg/2 mL IV PRN (10:45)
[2019-08-08] MEDS ORDERED: Midazolam 2mg/2ml Inj IVP PRN (10:45)
[2019-08-08] MEDS ORDERED: Atropine Inj 1mg/10ml Syr IV PRN (10:45)
[2019-08-08] MEDS ORDERED: Atropine Sulfate 0.4mg/ml inj ONE (11:16)
[2019-08-08] MEDS ORDERED: ePHEDrine 50mg/ml Inj ONE (11:16)
[2019-08-08] MEDS ORDERED: Phenylephrine 10mg/ml Vial ONE (11:16)
[2019-08-08] MEDS ORDERED: Lidocaine 1% MPF 10mg/ml 5ml ONE (11:16)
[2019-08-08] MEDS ORDERED: Propofol 200mg/20ml IV ONE (11:16)
[2019-08-08] MEDS ORDERED: NS 275ml ONE (11:16)
--- NOTE | 2019-08-08 11:18 | NUR ---
NURSE NOTES: pt is awake and stable, V/S stable, pt left unit for gi lab, will continue to monitor.
--- NOTE | 2019-08-08 11:35 | Anethesia Preoperative Eval ---
Anesthesia Pre-op PMH/ROS General Date of Evaluation: Aug 08, 2019 Time of Evaluation: 11:16 Anesthesiologist: barb ASA Score: ASA 4 Mallampati Score Class I : Soft palate, uvula, fauces, pillars visible Class II: Soft palate, uvula, fauces visible Class III: Soft palate, base of uvula visible Class IV: Only hard plate visible Mallampati Classification: Class II Surgeon: rad Diagnosis: dysphagia, ftt Surgical Procedure: egd/peg Anesthesia History: none Family History: no anesthesia problems Allergies: Coded Allergies: PENICILLINS (Verified Allergy, Unknown, 10/27/18) tolretas cephalosporins Medications: see eMAR Patient NPO?: Yes Past Medical History Cardiovascular: Reports: HTN, arrhythmia Pulmonary: Reports: other - pulmonary edema, pleural effusion Gastrointestinal/Genitourinary: Reports: other - acute renal failure Neurologic/Psychiatric: Reports: CVA, other - encephalopathy, alzheimer's dz Endocrine: Reports: DM, hypothyroidism Musculoskeletal/Integumentary: Reports: OA Anesthesia Pre-op Phys. Exam Physician Exam Last Vital Signs Date Time Temp Pulse Resp B/P (MAP) Pulse Ox O2 Delivery O2 Flow Rate FiO2 08/08/19 09:00 56 135/62 08/08/19 09:00 Nasal Cannula 4.0 08/08/19 07:47 96.8 20 100 08/07/19 21:32 36 Constitutional: NAD Neurologic: other - obtunded Cardiovascular: RRR Respiratory: CTA Gastrointestinal: S/NT/ND Airway Exam Mallampati Score: Class II MO: limited Neck: flexible TMD: 2fb ROM: limited Anesthesia Pre-op A/P Labs Hematology Test 08/08/19 05:30 White Blood Count 5.8 K/UL (4.8-10.8) Red Blood Count 3.63 M/UL (4.70-6.10) L Hemoglobin 9.1 G/DL (14.2-18.0) L Hematocrit 28.5 % (42.0-52.0) L Mean Corpuscular Volume 78 FL (80-99) L Mean Corpuscular Hemoglobin 25.0 PG (27.0-31.0) L Mean Corpuscular Hemoglobin Concent 31.9 G/DL (32.0-36.0) L Red Cell Distribution Width 16.5 % (11.6-14.8) H Platelet Count 725 K/UL (150-450) H Mean Platelet Volume 5.7 FL (6.5-10.1) L Neutrophils (%) (Auto) 44.0 % (45.0-75.0) L Lymphocytes (%) (Auto) 37.3 % (20.0-45.0) Monocytes (%) (Auto) 9.5 % (1.0-10.0) Eosinophils (%) (Auto) 6.9 % (0.0-3.0) H Basophils (%) (Auto) 2.4 % (0.0-2.0) H Chemistry Test 08/08/19 05:30 Sodium Level 139 MMOL/L (136-145) Potassium Level 4.7 MMOL/L (3.5-5.1) Chloride Level 103 MMOL/L (98-107) Carbon Dioxide Level 27 MMOL/L (21-32) Anion Gap 9 mmol/L (5-15) Blood Urea Nitrogen 41 mg/dL (7-18) H Creatinine 1.3 MG/DL (0.55-1.30) Estimat Glomerular Filtration Rate > 60 mL/min (>60) Glucose Level 92 MG/DL (74-106) Uric Acid 6.9 MG/DL (2.6-7.2) Calcium Level 9.8 MG/DL (8.5-10.1) Phosphorus Level 3.9 MG/DL (2.5-4.9) Magnesium Level 2.9 MG/DL (1.8-2.4) H Total Bilirubin 0.2 MG/DL (0.2-1.0) Aspartate Amino Transf (AST/SGOT) 30 U/L (15-37) Alanine Aminotransferase (ALT/SGPT) 24 U/L (12-78) Alkaline Phosphatase 114 U/L (46-116) C-Reactive Protein, Quantitative 4.8 mg/dL (0.00-0.90) H Total Protein 9.4 G/DL (6.4-8.2) H Albumin 2.9 G/DL (3.4-5.0) L Globulin 6.5 g/dL Albumin/Globulin Ratio 0.4 (1.0-2.7) L Risk Assessment & Plan Assessment: asa4 Plan: mac Status Change Before Surgery: No Pre-Antibiotics Drug: clindamycin 600mg Given Within 1 Hr of Incision: Yes Time Given: 11:45 Sena Devine MD Aug 08, 2019 11:35
[2019-08-08] MEDS ORDERED: NS 500ML IVPB ONE (11:40)
--- NOTE | 2019-08-08 11:41 | Pulmonology Progress Note ---
Assessment/Plan Problems: (1) Nosocomial pneumonia (2) Pulmonary edema (3) Pleural effusion Assessment & Plan: thoracentesis done, 780 cc removed (4) Sepsis Assessment & Plan: afebrile, wbc wnl (5) Atrial fibrillation (6) Acute renal failure (7) Acute metabolic encephalopathy (8) Severe anemia (9) Alzheimer's dementia (10) History of CVA (cerebrovascular accident) (11) Diabetes mellitus (12) Hypothyroidism (13) At high risk for aspiration (14) Encounter for PEG (percutaneous endoscopic gastrostomy) Assessment/Plan no new complains on nasal cannula more awake Gtube planned for today repeat cxr, and BNP in am respiratory treatment npo sliding scale f/u renal function, creatinine improving, DVT prophylaxis. Subjective ROS Limited/Unobtainable: No Constitutional: Reports: no symptoms HEENT: Repors: no symptoms Respiratory: Reports: no symptoms Allergies: Coded Allergies: PENICILLINS (Verified Allergy, Unknown, 10/27/18) tolretas cephalosporins Objective Last 24 Hour Vital Signs Date Time Temp Pulse Resp B/P (MAP) Pulse Ox O2 Delivery O2 Flow Rate FiO2 08/08/19 09:00 56 135/62 08/08/19 09:00 Nasal Cannula 4.0 08/08/19 07:47 96.8 56 20 135/62 (86) 100 08/08/19 07:43 58 08/08/19 04:00 54 08/08/19 04:00 97.9 60 18 142/60 (87) 98 08/08/19 00:00 96.9 57 18 141/70 (93) 97 08/08/19 00:00 59 08/07/19 21:32 97 Nasal Cannula 4.0 36 08/07/19 21:32 61 18 97 Nasal Cannula 4.0 36 08/07/19 21:00 Nasal Cannula 4.0 08/07/19 20:00 97.4 57 18 145/62 (89) 99 08/07/19 16:00 97.2 53 20 137/57 (83) 99 08/07/19 15:51 55 08/07/19 12:00 98.0 68 20 135/73 (93) 94 08/07/19 11:44 59 Intake and Output 08/07/19 08/08/19 19:00 07:00 Intake Total 165 ml 350 ml Output Total 3 ml Balance 165 ml 347 ml Free Water 90 ml IV Total 100 ml Tube Feeding 65 ml 260 ml Output Urine Total 3 ml # Voids 5 General Appearance: no acute distress, cachetic HEENT: normocephalic, atraumatic Respiratory/Chest: chest wall non-tender, lungs clear Cardiovascular: normal peripheral pulses, normal rate Abdomen: normal bowel sounds, soft, non tender Genitourinary: normal external genitalia Extremities: no cyanosis Skin: no rash 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/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 normal Lymphatic: no neck adenopathy Laboratory Tests 08/08/19 05:30: White Blood Count 5.8, Red Blood Count 3.63L, Hemoglobin 9.1L, Hematocrit 28.5L , Mean Corpuscular Volume 78L, Mean Corpuscular Hemoglobin 25.0L, Mean Corpuscular Hemoglobin Concent 31.9L, Red Cell Distribution Width 16.5H, Platelet Count 725H, Mean Platelet Volume 5.7L, Neutrophils (%) (Auto) 44.0L, Lymphocytes (%) (Auto) 37.3, Monocytes (%) (Auto) 9.5, Eosinophils (%) (Auto) 6.9H, Basophils (%) (Auto) 2.4H, Sodium Level 139, Potassium Level 4.7, Chloride Level 103, Carbon Dioxide Level 27, Anion Gap 9, Blood Urea Nitrogen 41H, Creatinine 1.3, Estimat Glomerular Filtration Rate > 60, Glucose Level 92, Uric Acid 6.9, Calcium Level 9.8, Phosphorus Level 3.9, Magnesium Level 2.9H, Total Bilirubin 0.2, Aspartate Amino Transf (AST/SGOT) 30, Alanine Aminotransferase (ALT/SGPT) 24, Alkaline Phosphatase 114, C-Reactive Protein, Quantitative 4.8H, Total Protein 9.4H, Albumin 2.9L, Globulin 6.5, Albumin/ Globulin Ratio 0.4L Current Medications Medications (Trade) Dose Ordered Sig/Kike Route PRN Reason Start Time Stop Time Status Last Admin Dose Admin Acetaminophen (Tylenol) 650 mg Q4H PRN ORAL fever 07/21/19 05:30 08/17/19 05:29 Acetaminophen (Tylenol) 650 mg Q4H PRN ORAL Mild Pain (Pain Scale 1-3) 08/08/19 10:45 08/08/19 19:00 Al Hydroxide/Mg Hydroxide (Mylanta) 15 ml Q1H PRN ORAL gi upset 08/08/19 10:45 08/08/19 19:00 Albuterol/ Ipratropium (Albuterol/ Ipratropium) 3 ml Q4H PRN HHN Shortness of Breath 08/06/19 18:45 08/11/19 18:44 Alprazolam (Xanax) 0.5 mg Q6H PRN ORAL For Anxiety 08/02/19 20:45 08/09/19 20:44 08/04/19 04:29 Amlodipine Besylate (Norvasc) 2.5 mg DAILY NG 07/24/19 09:00 08/23/19 08:59 08/07/19 09:23 Atropine Sulfate (Atropine) 0.5 mg Q5M PRN IV bpm less than 45 08/08/19 10:45 08/08/19 19:00 Clindamycin/ Sodium Chloride 50 ml @ 100 mls/hr ONCE IV 08/08/19 10:00 08/08/19 23:59 Diphenhydramine HCl (Benadryl) 25 mg Q15M PRN IVP Itching 08/08/19 10:45 08/08/19 19:00 Docusate Sodium (Colace) 100 mg TWICE A DAY NG 08/07/19 18:00 09/06/19 17:59 08/07/19 17:28 Fentanyl Citrate (Sublimaze 100 mcg/2 mL) 25 mcg Q10M PRN IV Moderate Pain (Pain Scale 4-6) 08/08/19 10:45 08/08/19 19:00 Folic Acid (Folate) 2 mg DAILY ORAL 07/21/19 09:00 08/19/19 11:29 08/07/19 09:23 Hydralazine HCl (Apresoline) 5 mg Q30M PRN IV SBP>160 OR___/DBP>90 OR___ 08/08/19 10:45 08/08/19 19:00 Lansoprazole (Prevacid) 30 mg BID NG 07/23/19 18:00 08/22/19 17:59 08/07/19 17:29 Levothyroxine Sodium (Synthroid) 50 mcg DAILY@0630 ORAL 07/21/19 06:30 08/18/19 06:29 08/08/19 06:51 Midazolam HCl (Versed 2mg/2ml vial) 1 mg Q15M PRN IVP For Anxiety 08/08/19 10:45 08/08/19 19:00 Ondansetron HCl (Zofran) 4 mg Q1H PRN IVP Nausea & Vomiting 08/08/19 10:45 08/08/19 19:00 Ondansetron HCl (Zofran) 4 mg Q6H PRN IVP Nausea & Vomiting 07/21/19 08:15 08/17/19 14:14 Polyethylene Glycol (Miralax) 17 gm DAILYPRN PRN ORAL Constipation 07/21/19 05:30 08/17/19 05:29 Quetiapine Fumarate (SEROqueL) 25 mg Q8H PRN ORAL agitation 07/21/19 05:30 08/17/19 05:29 08/08/19 08:16 Sodium Chloride 1,000 ml @ 10 mls/hr Q24H IVLG 08/08/19 10:34 08/08/19 19:00 Vania Hui MD Aug 08, 2019 11:41
--- NOTE | 2019-08-08 12:03 | Endoscopy Procedure Note ---
Endoscopy Procedure Note General Indication for Procedure: dysphagia Procedures Performed: EGD, PEG Operative Findings/Diagnosis: esoph mass Specimen: yes Pt Tolerated Procedure Well: Yes Estimated Blood Loss: none Anesthesia Anesthesiologist: alphonso naik Anesthesia: MAC Inserted Devices Implant(s) used?: No GI Core Measures 50 yrs or older w/o bx or poly: Not Applicable 10yrs. F/U recommended: Not Applicable Darrick Rosario MD Aug 08, 2019 12:03
--- NOTE | 2019-08-08 12:13 | Diagnostic Imaging Report ---
Indication: Dyspnea Comparison: 07/28/2019 A single view chest radiograph was obtained. Findings: Pulmonary vascular congestion demonstrated. This is seen as areas of diffuse interstitial prominence with increased heart size and prominent central vessels. In addition there may be an infiltrate in the right perihilar region. Correlate clinically. A small right pleural effusion is also suspected. IMPRESSION: Suspected pulmonary vascular congestion. This may be stable to slightly improved since the last study. Superimposed pneumonia in the right perihilar region not excluded.
--- NOTE | 2019-08-08 12:51 | NUR ---
NURSE NOTES: pt came back from gi lab, pt is drowsy, pt is on continues heart monitoring, HR 56, Will continue to monitor. Addendum: 08/08/19 at 1502 by Mann Mauricio RN dressing is intact over g tube, abdominal binder applied as order.
--- NOTE | 2019-08-08 13:45 | Immediate Post-Op Evaluation ---
Immediate Post-Op Evalulation Immediate Post-Op Evalulation Procedure: egd/peg w/bx Date of Evaluation: Aug 08, 2019 Time of Evaluation: 12:21 IV Fluids: 250ml 0.9ns Blood Products: none Estimated Blood Loss: negligible Blood Pressure Systolic: 116 Blood Pressure Diastolic: 60 Pulse Rate: 65 Respiratory Rate: 18 O2 Sat by Pulse Oximetry: 100 Temperature (Fahrenheit): 97.5 Pain Score (1-10): 0 Nausea: No Vomiting: No Complications none Patient Status: awake, reacts, patent Hydration Status: adequate Drug: clindamycin 600mg Given Within 1 Hr of Incision: Yes Time Given: 11:45 Sena Devine MD Aug 08, 2019 13:45
--- NOTE | 2019-08-08 13:46 | 48 Hour Post Anesthesia Eval ---
Post Anesthesia Evaluation Procedure: egd/peg w/bx Date of Evaluation: Aug 08, 2019 Time of Evaluation: 12:23 Blood Pressure Systolic: 100 0: 61 Pulse Rate: 68 Respiratory Rate: 18 Temperature (Fahrenheit): 97.5 O2 Sat by Pulse Oximetry: 100 Airway: patent Nausea: No Vomiting: No Pain Intensity: 0 Hydration Status: adequate Cardiopulmonary Status: stable Mental Status/LOC: patient returned to baseline Post-Anesthesia Complications: none Follow-up care needed: N/A Sena Devine MD Aug 08, 2019 13:46
--- NOTE | 2019-08-08 15:11 | NUR ---
INSURANCE CLINICALS AND REVIEWS FAXED TO [facility] P- [phone] F- [phone]...REVIEW/CLINICAL
--- NOTE | 2019-08-08 15:13 | NUR ---
RD ASSESSMENT & RECOMMENDATIONS SEE CARE ACTIVITY FOR COMPLETE ASSESSMENT DAILY ESTIMATED NEEDS: Needs based on Sepsis, DM, pulmonary/ 67.7kg 25-35 kcals/kg 4066-1730 total kcals 1.25-2 g protein/kg 85-135 g total protein 20-30ml/kcal mL/kg 6033-7666 total fluid mLs NUTRITION DIAGNOSIS: * Swallowing difficulty R/T dysphagia w/ h/o CVA, decreased cognitive fxn as evidenced by now s/p PEG placement, on GT feeds. CURRENT TF:Glucerna 1.2 @65 ml/hr x22 hrs -> Osmolite 1.2 @ 65ml/hr x 22 hrs PO DIET RECOMMENDATIONS: IF ORAL DIET INDICATED-> liberalized regular/ texture per VACUUM KETTLE COOK ENTERAL NUTRITION RECOMMENDATIONS: Increase goal rate to better meet needs-> Osmolite 1.2 @ 70ml/hr x22 hrs to provide 1540ml, 1848kcal, 85g prot, 1262ml free water - Pt is s/p PEG placement, initiate TF slowly @ 20ml/hr x 6 hrs, advance 10ml q 4-6 hrs as tolerated to goal rate - HOLD TF one hour before and after synthroid meds. - Flush per MD. HOB over 30 degrees WITH CONSISTENTLY ELEVATED BGS: rec TF change to Glucerna 1.2 @ 70ml/hr x 22 hrs to provide 1540ml, 1848kcal, 92g prot, 66g less CHO ADDITIONAL RECOMMENDATIONS: * Calibrated bedscale wt for accurate CBW - w/ added P200 mattress + pump * Monitor BGs closely: rec TF change back to Glucerna 1.2 w/ consistently elev BGs (Osmolite 1.2 ordered per GI on 08/07) * Monitor need for NISS * Monitor closely for hypoglycemia * Wound care: add JOSE BID + Vit C 250mg daily * Monitor lytes, replete as needed
--- NOTE | 2019-08-08 15:30 | Procedure Note ---
DATE OF PROCEDURE: 08/08/2019 SURGEON: Darrick Rosairo M.D. REFERRING PHYSICIAN: Lamont Hayes M.D. PROCEDURE: Upper endoscopy with biopsy and PEG placement. ANESTHESIA: Per Dr. Flowers. INSTRUMENT: Olympus adult flexible upper endoscope. INDICATION: Dysphagia. REASON FOR PROCEDURE: The procedure, risks, benefits, and possible consequences, including hemorrhage, aspiration, perforation and infection, and alternative treatments, were explained to the patient/legal guardian by Dr. Darrick Rosario and the patient/legal guardian understood and accepted these risks. PROCEDURE IN DETAIL: After informed consent was obtained and the patient was adequately sedated, the adult Olympus scope was advanced from mouth into the esophagus. We encountered a large mass in the esophagus. This mass looks malignant. We could not pass the adult upper scope at this point. We did a biopsy of this mass and switched to the pediatric upper scope. With little bit of tension, we were able to pass the scope through into the stomach. The patient had evidence of atrophic gastritis. 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 At this time, over a guidewire using the pull type of G-tube, a 20-Polish pull type of G-tube was successfully placed. The distance from the tip of the tube to skin was about 2.5 cm in size. SUMMARY OF FINDINGS: 1. 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 2. Status post successful PEG placement. RECOMMENDATIONS: 1. Abdominal binder. 2. Elevate the head of the bed at all times. 3. G-tube flush. 4. G-tube care. 5. Start tube feeding later today. 6. The patient received dose of antibiotics prior to this procedure. 7. Follow up biopsy results. 8. We will discuss with the rest of the team regarding the esophageal mass findings. I want to thank Dr. Lamont Hayes for this kind referral. Darrick Rosario M.D. DR: NELLI JOB#: [id number] CC:
--- NOTE | 2019-08-08 18:54 | Internal Med Progress Note ---
Subjective Date of Service: Aug 08, 2019 Physician Name NiurkaXander Attending Physician Lamont Hayes MD Current Medications Medications (Trade) Dose Ordered Sig/Kike Route PRN Reason Start Time Stop Time Status Last Admin Dose Admin Acetaminophen (Tylenol) 650 mg Q4H PRN ORAL fever 07/21/19 05:30 08/17/19 05:29 Acetaminophen (Tylenol) 650 mg Q4H PRN ORAL Mild Pain (Pain Scale 1-3) 08/08/19 10:45 08/08/19 19:00 Al Hydroxide/Mg Hydroxide (Mylanta) 15 ml Q1H PRN ORAL gi upset 08/08/19 10:45 08/08/19 19:00 Albuterol/ Ipratropium (Albuterol/ Ipratropium) 3 ml Q4H PRN HHN Shortness of Breath 08/06/19 18:45 08/11/19 18:44 Alprazolam (Xanax) 0.5 mg Q6H PRN ORAL For Anxiety 08/02/19 20:45 08/09/19 20:44 08/04/19 04:29 Amlodipine Besylate (Norvasc) 2.5 mg DAILY NG 07/24/19 09:00 08/23/19 08:59 08/07/19 09:23 Atropine Sulfate (Atropine) 0.5 mg Q5M PRN IV bpm less than 45 08/08/19 10:45 08/08/19 19:00 Clindamycin/ Sodium Chloride 50 ml @ 100 mls/hr ONCE IV 08/08/19 10:00 08/08/19 23:59 08/08/19 11:45 Diphenhydramine HCl (Benadryl) 25 mg Q15M PRN IVP Itching 08/08/19 10:45 08/08/19 19:00 Docusate Sodium (Colace) 100 mg TWICE A DAY NG 08/07/19 18:00 09/06/19 17:59 08/08/19 17:18 Fentanyl Citrate (Sublimaze 100 mcg/2 mL) 25 mcg Q10M PRN IV Moderate Pain (Pain Scale 4-6) 08/08/19 10:45 08/08/19 19:00 Folic Acid (Folate) 2 mg DAILY ORAL 07/21/19 09:00 08/19/19 11:29 08/07/19 09:23 Hydralazine HCl (Apresoline) 5 mg Q30M PRN IV SBP>160 OR___/DBP>90 OR___ 08/08/19 10:45 08/08/19 19:00 Lansoprazole (Prevacid) 30 mg BID NG 07/23/19 18:00 08/22/19 17:59 08/08/19 17:18 Levothyroxine Sodium (Synthroid) 50 mcg DAILY@0630 ORAL 07/21/19 06:30 08/18/19 06:29 08/08/19 06:51 Midazolam HCl (Versed 2mg/2ml vial) 1 mg Q15M PRN IVP For Anxiety 08/08/19 10:45 08/08/19 19:00 Ondansetron HCl (Zofran) 4 mg Q1H PRN IVP Nausea & Vomiting 08/08/19 10:45 08/08/19 19:00 Ondansetron HCl (Zofran) 4 mg Q6H PRN IVP Nausea & Vomiting 07/21/19 08:15 08/17/19 14:14 Polyethylene Glycol (Miralax) 17 gm DAILYPRN PRN ORAL Constipation 07/21/19 05:30 08/17/19 05:29 Quetiapine Fumarate (SEROqueL) 25 mg Q8H PRN ORAL agitation 07/21/19 05:30 08/17/19 05:29 08/08/19 08:16 Sodium Chloride 1,000 ml @ 10 mls/hr Q24H IVLG 08/08/19 10:34 08/08/19 19:00 Allergies: Coded Allergies: PENICILLINS (Verified Allergy, Unknown, 10/27/18) tolretas cephalosporins ROS Limited/Unobtainable: Yes Subjective 84 YO M admitted with altered mental status. Now pneumonia and severe sepsis. Cover for Int Med-Dr Hayes. PEG postponed Objective Last Vital Signs Date Time Temp Pulse Resp B/P (MAP) Pulse Ox O2 Delivery O2 Flow Rate FiO2 08/08/19 16:00 96.7 53 20 118/54 (75) 98 08/08/19 14:22 Nasal Cannula 2.0 28 Laboratory Tests Test 08/08/19 05:30 White Blood Count 5.8 K/UL (4.8-10.8) Red Blood Count 3.63 M/UL (4.70-6.10) L Hemoglobin 9.1 G/DL (14.2-18.0) L Hematocrit 28.5 % (42.0-52.0) L Mean Corpuscular Volume 78 FL (80-99) L Mean Corpuscular Hemoglobin 25.0 PG (27.0-31.0) L Mean Corpuscular Hemoglobin Concent 31.9 G/DL (32.0-36.0) L Red Cell Distribution Width 16.5 % (11.6-14.8) H Platelet Count 725 K/UL (150-450) H Mean Platelet Volume 5.7 FL (6.5-10.1) L Neutrophils (%) (Auto) 44.0 % (45.0-75.0) L Lymphocytes (%) (Auto) 37.3 % (20.0-45.0) Monocytes (%) (Auto) 9.5 % (1.0-10.0) Eosinophils (%) (Auto) 6.9 % (0.0-3.0) H Basophils (%) (Auto) 2.4 % (0.0-2.0) H Sodium Level 139 MMOL/L (136-145) Potassium Level 4.7 MMOL/L (3.5-5.1) Chloride Level 103 MMOL/L (98-107) Carbon Dioxide Level 27 MMOL/L (21-32) Anion Gap 9 mmol/L (5-15) Blood Urea Nitrogen 41 mg/dL (7-18) H Creatinine 1.3 MG/DL (0.55-1.30) Estimat Glomerular Filtration Rate > 60 mL/min (>60) Glucose Level 92 MG/DL (74-106) Uric Acid 6.9 MG/DL (2.6-7.2) Calcium Level 9.8 MG/DL (8.5-10.1) Phosphorus Level 3.9 MG/DL (2.5-4.9) Magnesium Level 2.9 MG/DL (1.8-2.4) H Total Bilirubin 0.2 MG/DL (0.2-1.0) Aspartate Amino Transf (AST/SGOT) 30 U/L (15-37) Alanine Aminotransferase (ALT/SGPT) 24 U/L (12-78) Alkaline Phosphatase 114 U/L (46-116) C-Reactive Protein, Quantitative 4.8 mg/dL (0.00-0.90) H Total Protein 9.4 G/DL (6.4-8.2) H Albumin 2.9 G/DL (3.4-5.0) L Globulin 6.5 g/dL Albumin/Globulin Ratio 0.4 (1.0-2.7) L Intake and Output 08/07/19 08/08/19 19:00 07:00 Intake Total 165 ml 350 ml Output Total 3 ml Balance 165 ml 347 ml Free Water 90 ml IV Total 100 ml Tube Feeding 65 ml 260 ml Output Urine Total 3 ml # Voids 5 Objective PHYSICAL EXAMINATION: GENERAL: The patient is a well-developed, well-nourished, thin-appearing male, who is in moderate respiratory distress. HEENT: Eyes, pupils are equal and responsive to light and accommodation. Extraocular movements are intact. NECK: Supple without lymphadenopathy. CHEST: Venturi mask; Lungs with bilateral wheezes and rhonchi; breath sounds decreased at bases CARDIOVASCULAR: Regular rhythm and rate. S1 and S2 are normal without murmurs, rubs, or gallops. ABDOMEN: Soft, nontender, and nondistended. Positive bowel sounds. No evidence of hepatosplenomegaly. Currently, no rebound or guarding noted. EXTREMITIES: Negative for clubbing, cyanosis, or edema. RECTAL/GENITAL: Not performed. NEUROLOGIC: Cranial nerves II through XII are grossly intact without focal deficits. Motor strength is 5/5 bilaterally. Deep tendon reflexes are 2+ plantar. Assessment/Plan Assessment/Plan ASSESSMENT: This is an 84-year-old male. 1. Bilateral pneumonia. 2. Respiratory failure. 3. Probable sepsis. 4. Altered mental status. 5. Diabetes type 2. 6. Hypothyroidism. 7. Cerebrovascular disease. 8. Acute renal failure. 9. Leukocytosis 10. Hypernatremia 11. Right pleural effusion 12. dysphagia TREATMENT: 1. Respiratory failure/bilateral pneumonia. A Pulmonary consultation has been obtained with Dr. Vania Hui. The patient is currently admitted to the intensive care unit. The patient is currently on a venturi mask. The patient has been started empirically on vancomycin and ertapenem. A sputum culture =MRSA. S/P vanco per ID=Dr Roach 2. Altered mental status. This is probably secondary to hypoxia secondary to pneumonia as above. 3. Diabetes type 2. The patient was admitted without antihyperglycemic medication. 4. Hypothyroidism. Continue Levoxyl as above. 5. Cerebrovascular disease. The patient is status post cerebrovascular accident. 6. Acute renal failure. This may be secondary to acute dehydration. The patient is currently receiving intravenous fluids. 7. Severe Sepsis. ABX=S/P vanco . ID=Dr Matias 8. S/P right thoracentesis 07/26/19 9. Endoscopy/PEG postponed-see GI note Xander Bah MD Aug 08, 2019 18:54
--- NOTE | 2019-08-08 19:30 | NUR ---
NURSE NOTES: DR. VUONG MADE AWARE OF BRADYCARDIA STATUS ON HEART MONITOR BY AM NURSE.
--- NOTE | 2019-08-08 19:35 | NUR ---
HAND-OFF: Report given to CRIS BURGOS. Pt is awake and stable, endorsed g tube feeding goal is 65ml/hr if pt tolerate well.
--- NOTE | 2019-08-08 20:00 | NUR ---
NURSE NOTES: RECEIVED PATIENT LYING IN BED, EYES OPEN, VERBALLY RESPONSIVE, NO SIGNS AND SYMPTOM OF PAIN. ASPIRATION PRECAUTION OBSERVED. S/P EGD/PEG PLACEMENT. BILATERAL WRIST RESTRAINTS INTACT TO PREVENT PATIENT FROM REMOVINGTUBINGSSINUS ANUPAMA ON PATIENT CARE, NO SIGNS AND SYMPTOMS OF ACUTE CARDIO RESPIRATORY DISTRESS/SHORTNESS OF BREATH, NO PERIPHERAL EDEMA NOTED. ABDOMEN SOFT/NON DISTENDED, G TUBE INTACT, NO GASTRIC RESIDUAL ASPIRATED. REPOSITIONED PATIENT FOR COMFORT/PRESSURE RELIEF, TOLERATED WELL. SIDE RAILS UP X3/BED IN LOWEST POSITION FOR SAFETY. HOURLY ROUNDING FOR PATIENT SAFETY/NEEDS.. BED ALARM ACTIVATED. CONTINUE WITH CURRENT PLAN OF CARE. NAD.
--- NOTE | 2019-08-08 20:03 | Cardiology Progress Note ---
Assessment/Plan Assessment/Plan 1. Toxic metabolic encephalopathy. 2. Pneumonia. 3. Respiratory insufficiency. 4. Dementia. 5. Hypernatremia. 6. History of CVA. 7. History of hypertension. 8. History of diabetes mellitus. 9. History of hypothyroidism. 10. sinus alexandra asymptomatic tele reviewed sinus alexandra ? related to hypothyroid consider increase in the dose of synthroid i will see intermittently on oxygen on pulm treatment cv ok to med-surg if ok with dr pena from pulm view point as well Subjective ROS Limited/Unobtainable: Yes Cardiovascular: Denies: chest pain, lightheadedness Respiratory: Denies: shortness of breath Gastrointestinal/Abdominal: Denies: abdomen distended Genitourinary: Denies: burning Objective Last 24 Hour Vital Signs Date Time Temp Pulse Resp B/P (MAP) Pulse Ox O2 Delivery O2 Flow Rate FiO2 08/08/19 16:00 96.7 53 20 118/54 (75) 98 08/08/19 15:31 56 08/08/19 14:22 98 Nasal Cannula 2.0 28 08/08/19 14:21 58 20 98 Nasal Cannula 2.0 28 08/08/19 13:46 68 18 100 08/08/19 13:45 65 18 100 08/08/19 13:00 97.6 61 17 109/59 97 Room Air 61 08/08/19 12:55 96.3 54 20 110/52 (71) 100 08/08/19 12:54 56 08/08/19 12:34 97.5 62 20 109/59 100 Nasal Cannula 3 62 08/08/19 12:20 68 17 100/61 97 Nasal Cannula 3 68 08/08/19 12:15 71 18 106/57 98 Nasal Cannula 3 71 08/08/19 12:10 62 20 107/56 100 Nasal Cannula 3 62 08/08/19 12:02 97.8 65 18 116/60 100 Nasal Cannula 3 65 08/08/19 11:20 98.6 61 20 109/52 (71) 100 08/08/19 09:00 56 135/62 08/08/19 09:00 Nasal Cannula 4.0 08/08/19 07:47 96.8 56 20 135/62 (86) 100 08/08/19 07:43 58 08/08/19 04:00 54 08/08/19 04:00 97.9 60 18 142/60 (87) 98 08/08/19 00:00 96.9 57 18 141/70 (93) 97 08/08/19 00:00 59 08/07/19 21:32 97 Nasal Cannula 4.0 36 08/07/19 21:32 61 18 97 Nasal Cannula 4.0 36 08/07/19 21:00 Nasal Cannula 4.0 General Appearance: no apparent distress, alert Neck: supple Cardiovascular: normal rate Respiratory/Chest: lungs clear Abdomen: normal bowel sounds, non tender, soft Extremities: no swelling Intake and Output 08/07/19 08/08/19 19:00 07:00 Intake Total 165 ml 350 ml Output Total 3 ml Balance 165 ml 347 ml Free Water 90 ml IV Total 100 ml Tube Feeding 65 ml 260 ml Output Urine Total 3 ml # Voids 5 Laboratory Tests Test 08/08/19 05:30 White Blood Count 5.8 K/UL (4.8-10.8) Red Blood Count 3.63 M/UL (4.70-6.10) L Hemoglobin 9.1 G/DL (14.2-18.0) L Hematocrit 28.5 % (42.0-52.0) L Mean Corpuscular Volume 78 FL (80-99) L Mean Corpuscular Hemoglobin 25.0 PG (27.0-31.0) L Mean Corpuscular Hemoglobin Concent 31.9 G/DL (32.0-36.0) L Red Cell Distribution Width 16.5 % (11.6-14.8) H Platelet Count 725 K/UL (150-450) H Mean Platelet Volume 5.7 FL (6.5-10.1) L Neutrophils (%) (Auto) 44.0 % (45.0-75.0) L Lymphocytes (%) (Auto) 37.3 % (20.0-45.0) Monocytes (%) (Auto) 9.5 % (1.0-10.0) Eosinophils (%) (Auto) 6.9 % (0.0-3.0) H Basophils (%) (Auto) 2.4 % (0.0-2.0) H Sodium Level 139 MMOL/L (136-145) Potassium Level 4.7 MMOL/L (3.5-5.1) Chloride Level 103 MMOL/L (98-107) Carbon Dioxide Level 27 MMOL/L (21-32) Anion Gap 9 mmol/L (5-15) Blood Urea Nitrogen 41 mg/dL (7-18) H Creatinine 1.3 MG/DL (0.55-1.30) Estimat Glomerular Filtration Rate > 60 mL/min (>60) Glucose Level 92 MG/DL (74-106) Uric Acid 6.9 MG/DL (2.6-7.2) Calcium Level 9.8 MG/DL (8.5-10.1) Phosphorus Level 3.9 MG/DL (2.5-4.9) Magnesium Level 2.9 MG/DL (1.8-2.4) H Total Bilirubin 0.2 MG/DL (0.2-1.0) Aspartate Amino Transf (AST/SGOT) 30 U/L (15-37) Alanine Aminotransferase (ALT/SGPT) 24 U/L (12-78) Alkaline Phosphatase 114 U/L (46-116) C-Reactive Protein, Quantitative 4.8 mg/dL (0.00-0.90) H Total Protein 9.4 G/DL (6.4-8.2) H Albumin 2.9 G/DL (3.4-5.0) L Globulin 6.5 g/dL Albumin/Globulin Ratio 0.4 (1.0-2.7) L Juarez Fletcher MD Aug 08, 2019 20:03
[2019-08-09] VITALS: BP 134/70
[2019-08-09 04:00] VITALS: BP 156/66
--- NOTE | 2019-08-09 06:28 | NUR ---
NURSE NOTES: TOLERATED FEEDING. NO SIGNIFICANT CHANGE OF CONDITION NOTED. SAFETY MAINTAINED. NAD.
--- NOTE | 2019-08-09 07:10 | NUR ---
NURSE NOTES: Received report from KAI Rosenberg. The patient is resting on the bed without acute distress or shortness of breath. The patient's bed in the lowest position, call light in reach, and fall and aspiration precaution reinforced. IV site intact and patent on R hand 22G and SL. The patient had G tube placement on 08/08/2019 and now on Osmolite 1.2 @40mL/hr with minimal residual with goal of 65mL/hr per Dr. Rosario. Will increase the rate as tolerated. The patient is on 2L NC and saturation within normal range. Will continue plan of care. Addendum: 08/09/19 at 1055 by Gustavo Rivera RN D/C'ed restraints per order as the patient is not being agitated. Will continue plan of care.
[2019-08-09 07:16] LABS: EOSINOPHILS % (AUTO) 2.8 % (0.0-3.0); HEMATOCRIT 29.1 % (42.0-52.0); HEMOGLOBIN 9.2 G/DL (14.2-18.0); LYMPHOCYTES % (AUTO) 13.7 % (20.0-45.0); MEAN CORPUSCULAR VOLUME 80 FL (80-99); MONOCYTES % (AUTO) 7.4 % (1.0-10.0); NEUTROPHILS % (AUTO) 75.2 % (45.0-75.0); PLATELET COUNT 722 K/UL (150-450); RED BLOOD COUNT 3.65 M/UL (4.70-6.10); RED CELL DISTRIBUTION WIDTH 16.7 % (11.6-14.8); WHITE BLOOD COUNT 11.5 K/UL (4.8-10.8)
[2019-08-09 08:00] VITALS: BP 119/57
[2019-08-09 08:02] LABS: ALANINE AMINOTRANSFERASE 28 U/L (12-78); ALBUMIN 2.9 G/DL (3.4-5.0); ALBUMIN/GLOBULIN RATIO 0.4 (1.0-2.7); ALKALINE PHOSPHATASE 119 U/L (46-116); ANION GAP 9 mmol/L (5-15); ASPARTATE AMINO TRANSFERASE 40 U/L (15-37); BILIRUBIN,TOTAL 0.3 MG/DL (0.2-1.0); BLOOD UREA NITROGEN 40 mg/dL (7-18); CALCIUM 9.7 MG/DL (8.5-10.1); CARBON DIOXIDE 27 MMOL/L (21-32); CHLORIDE 102 MMOL/L (98-107); CREATININE 1.3 MG/DL (0.55-1.30); POTASSIUM 4.6 MMOL/L (3.5-5.1); SODIUM 138 MMOL/L (136-145)
[2019-08-09] MEDS: Docusate 100mg/10ml Liq NG SCH ×2 (08:53→17:22)
--- NOTE | 2019-08-09 10:04 | NUR ---
DISCHARGE PLANNING FAXED CLINICALS TO [facility] T; [phone] f: [phone] AWAIT DISCHARGE ORDER
--- NOTE | 2019-08-09 10:47 | GI Progress Note ---
Assessment/Plan Problems: (1) Failure to thrive SNOMED: 93614566 (2) Anemia ICD Codes: D64.9 - Anemia, unspecified SNOMED: 667564574 (3) Hypoalbuminemia ICD Codes: E88.09 - Other disorders of plasma-protein metabolism, not elsewhere classified SNOMED: 268211661 (4) Severe malnutrition ICD Codes: E43 - Unspecified severe protein-calorie malnutrition SNOMED: 45557561 (5) Sarcopenia ICD Codes: M62.84 - Sarcopenia SNOMED: 505603604 (6) Encounter for PEG (percutaneous endoscopic gastrostomy) ICD Codes: Z43.1 - Encounter for attention to gastrostomy SNOMED: 270595885, 606579965 (7) Severe anemia ICD Codes: D64.9 - Anemia, unspecified SNOMED: 055823360 Status: stable Status Narrative Discussed with Dr. Rosario. Assessment/Plan SUMMARY OF FINDINGS: 1. 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 2. Status post successful PEG placement. RECOMMENDATIONS: 1. Abdominal binder. 2. Elevate the head of the bed at all times. 3. G-tube flush. 4. G-tube care. 5. Start tube feeding later today. 6. The patient received dose of antibiotics prior to this procedure. 7. Follow up biopsy results. 8. We will discuss with the rest of the team regarding the esophageal mass findings. The patient was seen and examined at bedside and all new and available data was reviewed in the patients chart. I agree with the above findings, impression and plan. (Patient seen earlier today. Signature stamp does not reflect patient encounter time.). - Darrick Rosario MD Subjective Subjective limited Objective Last 24 Hour Vital Signs Date Time Temp Pulse Resp B/P (MAP) Pulse Ox O2 Delivery O2 Flow Rate FiO2 08/09/19 08:53 71 119/57 08/09/19 08:00 97.7 71 18 119/57 (77) 98 08/09/19 08:00 68 20 98 Nasal Cannula 2.0 28 08/09/19 08:00 98 Nasal Cannula 2.0 28 08/09/19 08:00 60 08/09/19 04:00 97.1 65 20 156/66 (96) 95 08/09/19 04:00 65 08/09/19 00:00 60 08/09/19 00:00 97.7 60 20 134/70 (91) 98 08/08/19 21:22 Nasal Cannula 4.0 08/08/19 20:00 56 08/08/19 20:00 97.5 51 20 109/47 (67) 100 08/08/19 19:36 99 Nasal Cannula 2.0 28 08/08/19 19:36 60 20 99 Nasal Cannula 2.0 28 08/08/19 16:00 96.7 53 20 118/54 (75) 98 08/08/19 15:31 56 08/08/19 14:22 98 Nasal Cannula 2.0 28 08/08/19 14:21 58 20 98 Nasal Cannula 2.0 28 08/08/19 13:46 68 18 100 08/08/19 13:45 65 18 100 08/08/19 13:00 97.6 61 17 109/59 97 Room Air 61 08/08/19 12:55 96.3 54 20 110/52 (71) 100 08/08/19 12:54 56 08/08/19 12:34 97.5 62 20 109/59 100 Nasal Cannula 3 62 08/08/19 12:20 68 17 100/61 97 Nasal Cannula 3 68 08/08/19 12:15 71 18 106/57 98 Nasal Cannula 3 71 08/08/19 12:10 62 20 107/56 100 Nasal Cannula 3 62 08/08/19 12:02 97.8 65 18 116/60 100 Nasal Cannula 3 65 08/08/19 11:20 98.6 61 20 109/52 (71) 100 Intake and Output 08/08/19 08/09/19 19:00 07:00 Intake Total 80 ml 540 ml Output Total 200 ml Balance -120 ml 540 ml Free Water 60 ml 200 ml Tube Feeding 20 ml 340 ml Output Urine Total 200 ml # Voids 3 Laboratory Tests Test 08/09/19 05:23 White Blood Count 11.5 K/UL (4.8-10.8) #H Red Blood Count 3.65 M/UL (4.70-6.10) L Hemoglobin 9.2 G/DL (14.2-18.0) L Hematocrit 29.1 % (42.0-52.0) L Mean Corpuscular Volume 80 FL (80-99) Mean Corpuscular Hemoglobin 25.2 PG (27.0-31.0) L Mean Corpuscular Hemoglobin Concent 31.7 G/DL (32.0-36.0) L Red Cell Distribution Width 16.7 % (11.6-14.8) H Platelet Count 722 K/UL (150-450) H Mean Platelet Volume 5.7 FL (6.5-10.1) L Neutrophils (%) (Auto) 75.2 % (45.0-75.0) H Lymphocytes (%) (Auto) 13.7 % (20.0-45.0) L Monocytes (%) (Auto) 7.4 % (1.0-10.0) Eosinophils (%) (Auto) 2.8 % (0.0-3.0) Basophils (%) (Auto) 1.0 % (0.0-2.0) Sodium Level 138 MMOL/L (136-145) Potassium Level 4.6 MMOL/L (3.5-5.1) Chloride Level 102 MMOL/L (98-107) Carbon Dioxide Level 27 MMOL/L (21-32) Anion Gap 9 mmol/L (5-15) Blood Urea Nitrogen 40 mg/dL (7-18) H Creatinine 1.3 MG/DL (0.55-1.30) Estimat Glomerular Filtration Rate > 60 mL/min (>60) Glucose Level 104 MG/DL (74-106) Calcium Level 9.7 MG/DL (8.5-10.1) Total Bilirubin 0.3 MG/DL (0.2-1.0) Aspartate Amino Transf (AST/SGOT) 40 U/L (15-37) H Alanine Aminotransferase (ALT/SGPT) 28 U/L (12-78) Alkaline Phosphatase 119 U/L (46-116) H Pro-B-Type Natriuretic Peptide 148 pg/mL (0-125) H Total Protein 9.8 G/DL (6.4-8.2) H Albumin 2.9 G/DL (3.4-5.0) L Globulin 6.9 g/dL Albumin/Globulin Ratio 0.4 (1.0-2.7) L Height (Feet): 6 Height (Inches): 1.00 Weight (Pounds): 161 General Appearance: WD/WN, no apparent distress, alert Cardiovascular: normal rate Respiratory/Chest: normal breath sounds, no respiratory distress Abdominal Exam: normal bowel sounds, non tender, soft Extremities: normal range of motion, non-tender Chani Arroyo NP Aug 09, 2019 10:47
--- NOTE | 2019-08-09 10:48 | Nephrology Progress Note ---
Assessment/Plan Problem List: (1) Acute renal failure (2) Severe anemia (3) Sepsis (4) Diabetes mellitus (5) Hypothyroidism Assessment Alexi Cr lowering 2.6 to 1.8 Sepsis / Pneumonia / UTI / Hypothermia Respiratory failure HypoThyroidism h/o CVA Anemia Dementia Plan Serum creatinine up to 1.6 now normalized Will discontinue Lasix Thyroid function tests. IV iron Phos supplement as needed antibiotics avoid nephrotoxics monitor renal parameters check TFTs- adjust synthroid dose per orders Subjective ROS Limited/Unobtainable: No Constitutional: Reports: malaise, weakness Objective Objective Last 24 Hour Vital Signs Date Time Temp Pulse Resp B/P (MAP) Pulse Ox O2 Delivery O2 Flow Rate FiO2 08/09/19 08:53 71 119/57 08/09/19 08:00 97.7 71 18 119/57 (77) 98 08/09/19 08:00 68 20 98 Nasal Cannula 2.0 28 08/09/19 08:00 98 Nasal Cannula 2.0 28 08/09/19 08:00 60 08/09/19 04:00 97.1 65 20 156/66 (96) 95 08/09/19 04:00 65 08/09/19 00:00 60 08/09/19 00:00 97.7 60 20 134/70 (91) 98 08/08/19 21:22 Nasal Cannula 4.0 08/08/19 20:00 56 08/08/19 20:00 97.5 51 20 109/47 (67) 100 08/08/19 19:36 99 Nasal Cannula 2.0 28 08/08/19 19:36 60 20 99 Nasal Cannula 2.0 28 08/08/19 16:00 96.7 53 20 118/54 (75) 98 08/08/19 15:31 56 08/08/19 14:22 98 Nasal Cannula 2.0 28 08/08/19 14:21 58 20 98 Nasal Cannula 2.0 28 08/08/19 13:46 68 18 100 08/08/19 13:45 65 18 100 08/08/19 13:00 97.6 61 17 109/59 97 Room Air 61 08/08/19 12:55 96.3 54 20 110/52 (71) 100 08/08/19 12:54 56 08/08/19 12:34 97.5 62 20 109/59 100 Nasal Cannula 3 62 08/08/19 12:20 68 17 100/61 97 Nasal Cannula 3 68 08/08/19 12:15 71 18 106/57 98 Nasal Cannula 3 71 08/08/19 12:10 62 20 107/56 100 Nasal Cannula 3 62 08/08/19 12:02 97.8 65 18 116/60 100 Nasal Cannula 3 65 08/08/19 11:20 98.6 61 20 109/52 (71) 100 Intake and Output 08/08/19 08/09/19 19:00 07:00 Intake Total 80 ml 540 ml Output Total 200 ml Balance -120 ml 540 ml Free Water 60 ml 200 ml Tube Feeding 20 ml 340 ml Output Urine Total 200 ml # Voids 3 Current Medications Medications (Trade) Dose Ordered Sig/Kike Route PRN Reason Start Time Stop Time Status Last Admin Dose Admin Acetaminophen (Tylenol) 650 mg Q4H PRN ORAL fever 07/21/19 05:30 08/17/19 05:29 Albuterol/ Ipratropium (Albuterol/ Ipratropium) 3 ml Q4H PRN HHN Shortness of Breath 08/06/19 18:45 08/11/19 18:44 Alprazolam (Xanax) 0.5 mg Q6H PRN ORAL For Anxiety 08/02/19 20:45 08/09/19 20:44 08/04/19 04:29 Amlodipine Besylate (Norvasc) 2.5 mg DAILY NG 07/24/19 09:00 08/23/19 08:59 08/09/19 08:53 Docusate Sodium (Colace) 100 mg TWICE A DAY NG 08/07/19 18:00 09/06/19 17:59 08/09/19 08:53 Folic Acid (Folate) 2 mg DAILY ORAL 07/21/19 09:00 08/19/19 11:29 08/09/19 08:54 Lansoprazole (Prevacid) 30 mg BID NG 07/23/19 18:00 08/22/19 17:59 08/09/19 08:54 Levothyroxine Sodium (Synthroid) 50 mcg DAILY@0630 ORAL 07/21/19 06:30 08/18/19 06:29 08/09/19 06:25 Ondansetron HCl (Zofran) 4 mg Q6H PRN IVP Nausea & Vomiting 07/21/19 08:15 08/17/19 14:14 Polyethylene Glycol (Miralax) 17 gm DAILYPRN PRN ORAL Constipation 07/21/19 05:30 08/17/19 05:29 Quetiapine Fumarate (SEROqueL) 25 mg Q8H PRN ORAL agitation 07/21/19 05:30 08/17/19 05:29 08/08/19 08:16 Laboratory Tests 08/09/19 05:23: White Blood Count 11.5#H, Red Blood Count 3.65L, Hemoglobin 9.2L, Hematocrit 29.1L, Mean Corpuscular Volume 80, Mean Corpuscular Hemoglobin 25.2L, Mean Corpuscular Hemoglobin Concent 31.7L, Red Cell Distribution Width 16.7H, Platelet Count 722H, Mean Platelet Volume 5.7L, Neutrophils (%) (Auto) 75.2H, Lymphocytes (%) (Auto) 13.7L, Monocytes (%) (Auto) 7.4, Eosinophils (%) (Auto) 2.8, Basophils (%) (Auto) 1.0, Sodium Level 138, Potassium Level 4.6, Chloride Level 102, Carbon Dioxide Level 27, Anion Gap 9, Blood Urea Nitrogen 40H, Creatinine 1.3, Estimat Glomerular Filtration Rate > 60, Glucose Level 104, Calcium Level 9.7, Total Bilirubin 0.3, Aspartate Amino Transf (AST/SGOT) 40H, Alanine Aminotransferase (ALT/SGPT) 28, Alkaline Phosphatase 119H, Pro-B-Type Natriuretic Peptide 148H, Total Protein 9.8H, Albumin 2.9L, Globulin 6.9, Albumin/Globulin Ratio 0.4L Height (Feet): 6 Height (Inches): 1.00 Weight (Pounds): 161 General Appearance: no apparent distress Respiratory/Chest: decreased breath sounds Abdomen: soft, distended Objective no change Clovis Benites MD Aug 09, 2019 10:48
--- NOTE | 2019-08-09 11:44 | Pulmonology Progress Note ---
Assessment/Plan Problems: (1) Nosocomial pneumonia (2) Pulmonary edema (3) Pleural effusion Assessment & Plan: thoracentesis done, 780 cc removed (4) Sepsis Assessment & Plan: afebrile, wbc wnl (5) Atrial fibrillation (6) Acute renal failure (7) Acute metabolic encephalopathy (8) Severe anemia (9) Alzheimer's dementia (10) History of CVA (cerebrovascular accident) (11) Diabetes mellitus (12) Hypothyroidism (13) At high risk for aspiration (14) Encounter for PEG (percutaneous endoscopic gastrostomy) Assessment/Plan more awake Gtube done yesterday, tolerated well repeat cxr, and BNP in am respiratory treatment sliding scale f/u renal function, creatinine improving, DVT prophylaxis. dc planning Subjective ROS Limited/Unobtainable: No Constitutional: Reports: no symptoms HEENT: Repors: no symptoms Respiratory: Reports: no symptoms Allergies: Coded Allergies: PENICILLINS (Verified Allergy, Unknown, 10/27/18) tolretas cephalosporins Objective Last 24 Hour Vital Signs Date Time Temp Pulse Resp B/P (MAP) Pulse Ox O2 Delivery O2 Flow Rate FiO2 08/09/19 09:00 Nasal Cannula 2.0 08/09/19 08:53 71 119/57 08/09/19 08:00 97.7 71 18 119/57 (77) 98 08/09/19 08:00 68 20 98 Nasal Cannula 2.0 28 08/09/19 08:00 98 Nasal Cannula 2.0 28 08/09/19 08:00 60 08/09/19 04:00 97.1 65 20 156/66 (96) 95 08/09/19 04:00 65 08/09/19 00:00 60 08/09/19 00:00 97.7 60 20 134/70 (91) 98 08/08/19 21:22 Nasal Cannula 4.0 08/08/19 20:00 56 08/08/19 20:00 97.5 51 20 109/47 (67) 100 08/08/19 19:36 99 Nasal Cannula 2.0 28 08/08/19 19:36 60 20 99 Nasal Cannula 2.0 28 08/08/19 16:00 96.7 53 20 118/54 (75) 98 08/08/19 15:31 56 08/08/19 14:22 98 Nasal Cannula 2.0 28 08/08/19 14:21 58 20 98 Nasal Cannula 2.0 28 08/08/19 13:46 68 18 100 08/08/19 13:45 65 18 100 08/08/19 13:00 97.6 61 17 109/59 97 Room Air 61 08/08/19 12:55 96.3 54 20 110/52 (71) 100 08/08/19 12:54 56 08/08/19 12:34 97.5 62 20 109/59 100 Nasal Cannula 3 62 08/08/19 12:20 68 17 100/61 97 Nasal Cannula 3 68 08/08/19 12:15 71 18 106/57 98 Nasal Cannula 3 71 08/08/19 12:10 62 20 107/56 100 Nasal Cannula 3 62 08/08/19 12:02 97.8 65 18 116/60 100 Nasal Cannula 3 65 Intake and Output 08/08/19 08/09/19 19:00 07:00 Intake Total 80 ml 540 ml Output Total 200 ml Balance -120 ml 540 ml Free Water 60 ml 200 ml Tube Feeding 20 ml 340 ml Output Urine Total 200 ml # Voids 3 General Appearance: WD/WN HEENT: normocephalic, anicteric Respiratory/Chest: lungs clear, no respiratory distress Cardiovascular: normal peripheral pulses, normal rate Abdomen: normal bowel sounds, soft, non tender, no organomegaly Extremities: no cyanosis Skin: no rash Laboratory Tests 08/09/19 05:23: White Blood Count 11.5#H, Red Blood Count 3.65L, Hemoglobin 9.2L, Hematocrit 29.1L, Mean Corpuscular Volume 80, Mean Corpuscular Hemoglobin 25.2L, Mean Corpuscular Hemoglobin Concent 31.7L, Red Cell Distribution Width 16.7H, Platelet Count 722H, Mean Platelet Volume 5.7L, Neutrophils (%) (Auto) 75.2H, Lymphocytes (%) (Auto) 13.7L, Monocytes (%) (Auto) 7.4, Eosinophils (%) (Auto) 2.8, Basophils (%) (Auto) 1.0, Sodium Level 138, Potassium Level 4.6, Chloride Level 102, Carbon Dioxide Level 27, Anion Gap 9, Blood Urea Nitrogen 40H, Creatinine 1.3, Estimat Glomerular Filtration Rate > 60, Glucose Level 104, Calcium Level 9.7, Total Bilirubin 0.3, Aspartate Amino Transf (AST/SGOT) 40H, Alanine Aminotransferase (ALT/SGPT) 28, Alkaline Phosphatase 119H, Pro-B-Type Natriuretic Peptide 148H, Total Protein 9.8H, Albumin 2.9L, Globulin 6.9, Albumin/Globulin Ratio 0.4L Current Medications Medications (Trade) Dose Ordered Sig/Kike Route PRN Reason Start Time Stop Time Status Last Admin Dose Admin Acetaminophen (Tylenol) 650 mg Q4H PRN ORAL fever 07/21/19 05:30 08/17/19 05:29 Albuterol/ Ipratropium (Albuterol/ Ipratropium) 3 ml Q4H PRN HHN Shortness of Breath 08/06/19 18:45 08/11/19 18:44 Alprazolam (Xanax) 0.5 mg Q6H PRN ORAL For Anxiety 08/02/19 20:45 08/09/19 20:44 08/04/19 04:29 Amlodipine Besylate (Norvasc) 2.5 mg DAILY NG 07/24/19 09:00 08/23/19 08:59 08/09/19 08:53 Docusate Sodium (Colace) 100 mg TWICE A DAY NG 08/07/19 18:00 09/06/19 17:59 08/09/19 08:53 Folic Acid (Folate) 2 mg DAILY ORAL 07/21/19 09:00 08/19/19 11:29 08/09/19 08:54 Lansoprazole (Prevacid) 30 mg BID NG 07/23/19 18:00 08/22/19 17:59 08/09/19 08:54 Levothyroxine Sodium (Synthroid) 50 mcg DAILY@0630 ORAL 07/21/19 06:30 08/18/19 06:29 08/09/19 06:25 Ondansetron HCl (Zofran) 4 mg Q6H PRN IVP Nausea & Vomiting 07/21/19 08:15 08/17/19 14:14 Polyethylene Glycol (Miralax) 17 gm DAILYPRN PRN ORAL Constipation 07/21/19 05:30 08/17/19 05:29 Quetiapine Fumarate (SEROqueL) 25 mg Q8H PRN ORAL agitation 07/21/19 05:30 08/17/19 05:29 08/08/19 08:16 Vania Hui MD Aug 09, 2019 11:44
[2019-08-09 12:00] VITALS: BP 137/53
--- NOTE | 2019-08-09 12:00 | NUR ---
NURSE NOTES: The patient is stable without acute distress or shortness of breath. The patient is on 2L NC per order and saturation within normal range. The patient is tolerating tube feeding well and increased the rate into 45mL/hr. Will continue plan of care.
--- NOTE | 2019-08-09 12:44 | Diagnostic Imaging Report ---
Indication: Dyspnea Comparison: 08/08/2019 A single view chest radiograph was obtained. Findings: Mild pulmonary vascular congestion suspected with hazy slightly prominent hilar vessels and increased interstitial densities. There is minimal suspected air under the left hemidiaphragm given a curvilinear lucency. There is a right pleural effusion suspected. Heart size is stable. Gastrostomy noted. IMPRESSION: Apparent air just below the left hemidiaphragm. This is likely accounted for by recent gastrostomy which appears new and not seen on prior studies. Mild CHF. Suspected small right pleural effusion.
--- NOTE | 2019-08-09 15:22 | Cardiology Progress Note ---
Assessment/Plan Assessment/Plan 1. Toxic metabolic encephalopathy. 2. Pneumonia. 3. Respiratory insufficiency. 4. Dementia. 5. Hypernatremia. 6. History of CVA. 7. History of hypertension. 8. History of diabetes mellitus. 9. History of hypothyroidism. 10. sinus alexandra asymptomatic tele reviewed sinus alexandra / sinus alexandra ? related to hypothyroid consider increase in the dose of synthroid cv ok to med-surg if ok with dr pena from pulm view point as well Subjective ROS Limited/Unobtainable: Yes Objective Last 24 Hour Vital Signs Date Time Temp Pulse Resp B/P (MAP) Pulse Ox O2 Delivery O2 Flow Rate FiO2 08/09/19 12:00 98.1 65 18 137/53 (81) 100 08/09/19 12:00 63 08/09/19 09:00 Nasal Cannula 2.0 08/09/19 08:53 71 119/57 08/09/19 08:00 97.7 71 18 119/57 (77) 98 08/09/19 08:00 68 20 98 Nasal Cannula 2.0 28 08/09/19 08:00 98 Nasal Cannula 2.0 28 08/09/19 08:00 60 08/09/19 04:00 97.1 65 20 156/66 (96) 95 08/09/19 04:00 65 08/09/19 00:00 60 08/09/19 00:00 97.7 60 20 134/70 (91) 98 08/08/19 21:22 Nasal Cannula 4.0 08/08/19 20:00 56 08/08/19 20:00 97.5 51 20 109/47 (67) 100 08/08/19 19:36 99 Nasal Cannula 2.0 28 08/08/19 19:36 60 20 99 Nasal Cannula 2.0 28 08/08/19 16:00 96.7 53 20 118/54 (75) 98 08/08/19 15:31 56 General Appearance: no apparent distress Intake and Output 08/08/19 08/09/19 19:00 07:00 Intake Total 80 ml 540 ml Output Total 200 ml Balance -120 ml 540 ml Free Water 60 ml 200 ml Tube Feeding 20 ml 340 ml Output Urine Total 200 ml # Voids 3 Laboratory Tests Test 08/09/19 05:23 White Blood Count 11.5 K/UL (4.8-10.8) #H Red Blood Count 3.65 M/UL (4.70-6.10) L Hemoglobin 9.2 G/DL (14.2-18.0) L Hematocrit 29.1 % (42.0-52.0) L Mean Corpuscular Volume 80 FL (80-99) Mean Corpuscular Hemoglobin 25.2 PG (27.0-31.0) L Mean Corpuscular Hemoglobin Concent 31.7 G/DL (32.0-36.0) L Red Cell Distribution Width 16.7 % (11.6-14.8) H Platelet Count 722 K/UL (150-450) H Mean Platelet Volume 5.7 FL (6.5-10.1) L Neutrophils (%) (Auto) 75.2 % (45.0-75.0) H Lymphocytes (%) (Auto) 13.7 % (20.0-45.0) L Monocytes (%) (Auto) 7.4 % (1.0-10.0) Eosinophils (%) (Auto) 2.8 % (0.0-3.0) Basophils (%) (Auto) 1.0 % (0.0-2.0) Sodium Level 138 MMOL/L (136-145) Potassium Level 4.6 MMOL/L (3.5-5.1) Chloride Level 102 MMOL/L (98-107) Carbon Dioxide Level 27 MMOL/L (21-32) Anion Gap 9 mmol/L (5-15) Blood Urea Nitrogen 40 mg/dL (7-18) H Creatinine 1.3 MG/DL (0.55-1.30) Estimat Glomerular Filtration Rate > 60 mL/min (>60) Glucose Level 104 MG/DL (74-106) Calcium Level 9.7 MG/DL (8.5-10.1) Total Bilirubin 0.3 MG/DL (0.2-1.0) Aspartate Amino Transf (AST/SGOT) 40 U/L (15-37) H Alanine Aminotransferase (ALT/SGPT) 28 U/L (12-78) Alkaline Phosphatase 119 U/L (46-116) H Pro-B-Type Natriuretic Peptide 148 pg/mL (0-125) H Total Protein 9.8 G/DL (6.4-8.2) H Albumin 2.9 G/DL (3.4-5.0) L Globulin 6.9 g/dL Albumin/Globulin Ratio 0.4 (1.0-2.7) L Juarez Fletcher MD Aug 09, 2019 15:22
[2019-08-09 16:00] VITALS: BP 116/49
--- NOTE | 2019-08-09 17:16 | Infectious Diseases Prog Note ---
Assessment/Plan Assessment/Plan Assessment: Severe sepsis, sp Pneumonia, Sp Rx Probable UTI, SP Rx -07/25 CXR: Markedly increased right basilar opacity, likely increasing pleural fluid -07/22 CXR: Worsening CHF -u/a wbc 15-20, nit neg, leuk +3; ucx <10k Proteus sp (R Amp, ancef, macrobid ; otherwise), 70-80K S. viridans -07/19 CXR: marked worsening of pleural and parenchymal disease at the right lung base.There is also increasing parenchymal consolidation and atelectasis in the left infrahilar region. -CXR: Perihilar and basilar infiltrates. Findings suspicious for pneumonia. -influenza sc neg -Bcx NTD -sp cx MRSA, C. albicans -legionella ag urine neg R pleural effusion -07/26 SP thoracentesis: Successful ultrasound-guided thoracentesis, yielding 780 milliliters of fluid --Cx NTD -07/26 CXR: Improved right pleural effusion, post thoracentesis. No radiographically evident complication Hypothermia, SP Leukocytosis, SP Acute respiratory failure, sp NRB mask/VEnturi mask Lactic acidosis, SP RAMAN, SP Dm2 HTN non verbal hypothyroidism CVA hx of UTI anemia dementia senior living resident Plan: monitor pt off of AB RX - 07/31 Sp IV Vancomycin #14/ for MRSA PNA -07/26 SP Cefepime #5 -07/22 SP Barbara #4 -07/19 SP Ertapenem #2 -07/18 SP IV Amikacin x1, Levaquin x1 -Monitor CBC/CMP, temperatures -aspiration precautions Thank you for this consultation. Will continue to follow along with you. Subjective Allergies: Coded Allergies: PENICILLINS (Verified Allergy, Unknown, 10/27/18) tolretas cephalosporins Subjective afebrile Objective Vital Signs Last 24 Hour Vital Signs Date Time Temp Pulse Resp B/P (MAP) Pulse Ox O2 Delivery O2 Flow Rate FiO2 08/09/19 16:00 97.7 64 18 116/49 (71) 100 08/09/19 16:00 60 08/09/19 12:00 98.1 65 18 137/53 (81) 100 08/09/19 12:00 63 08/09/19 09:00 Nasal Cannula 2.0 08/09/19 08:53 71 119/57 08/09/19 08:00 97.7 71 18 119/57 (77) 98 08/09/19 08:00 68 20 98 Nasal Cannula 2.0 28 08/09/19 08:00 98 Nasal Cannula 2.0 28 08/09/19 08:00 60 08/09/19 04:00 97.1 65 20 156/66 (96) 95 08/09/19 04:00 65 08/09/19 00:00 60 08/09/19 00:00 97.7 60 20 134/70 (91) 98 08/08/19 21:22 Nasal Cannula 4.0 08/08/19 20:00 56 08/08/19 20:00 97.5 51 20 109/47 (67) 100 08/08/19 19:36 99 Nasal Cannula 2.0 28 08/08/19 19:36 60 20 99 Nasal Cannula 2.0 28 Height (Feet): 6 Height (Inches): 1.00 Weight (Pounds): 161 HEENT: mucous membranes moist Respiratory/Chest: normal breath sounds Cardiovascular: normal rate Abdomen: no organomegaly Laboratory Tests Test 08/09/19 05:23 White Blood Count 11.5 K/UL (4.8-10.8) #H Red Blood Count 3.65 M/UL (4.70-6.10) L Hemoglobin 9.2 G/DL (14.2-18.0) L Hematocrit 29.1 % (42.0-52.0) L Mean Corpuscular Volume 80 FL (80-99) Mean Corpuscular Hemoglobin 25.2 PG (27.0-31.0) L Mean Corpuscular Hemoglobin Concent 31.7 G/DL (32.0-36.0) L Red Cell Distribution Width 16.7 % (11.6-14.8) H Platelet Count 722 K/UL (150-450) H Mean Platelet Volume 5.7 FL (6.5-10.1) L Neutrophils (%) (Auto) 75.2 % (45.0-75.0) H Lymphocytes (%) (Auto) 13.7 % (20.0-45.0) L Monocytes (%) (Auto) 7.4 % (1.0-10.0) Eosinophils (%) (Auto) 2.8 % (0.0-3.0) Basophils (%) (Auto) 1.0 % (0.0-2.0) Sodium Level 138 MMOL/L (136-145) Potassium Level 4.6 MMOL/L (3.5-5.1) Chloride Level 102 MMOL/L (98-107) Carbon Dioxide Level 27 MMOL/L (21-32) Anion Gap 9 mmol/L (5-15) Blood Urea Nitrogen 40 mg/dL (7-18) H Creatinine 1.3 MG/DL (0.55-1.30) Estimat Glomerular Filtration Rate > 60 mL/min (>60) Glucose Level 104 MG/DL (74-106) Calcium Level 9.7 MG/DL (8.5-10.1) Total Bilirubin 0.3 MG/DL (0.2-1.0) Aspartate Amino Transf (AST/SGOT) 40 U/L (15-37) H Alanine Aminotransferase (ALT/SGPT) 28 U/L (12-78) Alkaline Phosphatase 119 U/L (46-116) H Pro-B-Type Natriuretic Peptide 148 pg/mL (0-125) H Total Protein 9.8 G/DL (6.4-8.2) H Albumin 2.9 G/DL (3.4-5.0) L Globulin 6.9 g/dL Albumin/Globulin Ratio 0.4 (1.0-2.7) L Current Medications Medications (Trade) Dose Ordered Sig/Kike Route PRN Reason Start Time Stop Time Status Last Admin Dose Admin Acetaminophen (Tylenol) 650 mg Q4H PRN ORAL fever 07/21/19 05:30 08/17/19 05:29 Albuterol/ Ipratropium (Albuterol/ Ipratropium) 3 ml Q4H PRN HHN Shortness of Breath 08/06/19 18:45 08/11/19 18:44 Alprazolam (Xanax) 0.5 mg Q6H PRN ORAL For Anxiety 08/02/19 20:45 08/09/19 20:44 08/04/19 04:29 Amlodipine Besylate (Norvasc) 2.5 mg DAILY NG 07/24/19 09:00 08/23/19 08:59 08/09/19 08:53 Docusate Sodium (Colace) 100 mg TWICE A DAY NG 08/07/19 18:00 09/06/19 17:59 08/09/19 08:53 Folic Acid (Folate) 2 mg DAILY ORAL 07/21/19 09:00 08/19/19 11:29 08/09/19 08:54 Lansoprazole (Prevacid) 30 mg BID NG 07/23/19 18:00 08/22/19 17:59 08/09/19 08:54 Levothyroxine Sodium (Synthroid) 50 mcg DAILY@0630 ORAL 07/21/19 06:30 08/18/19 06:29 08/09/19 06:25 Ondansetron HCl (Zofran) 4 mg Q6H PRN IVP Nausea & Vomiting 07/21/19 08:15 08/17/19 14:14 Polyethylene Glycol (Miralax) 17 gm DAILYPRN PRN ORAL Constipation 07/21/19 05:30 08/17/19 05:29 Quetiapine Fumarate (SEROqueL) 25 mg Q8H PRN ORAL agitation 07/21/19 05:30 08/17/19 05:29 08/08/19 08:16 Alexander Lock MD Aug 09, 2019 17:16
--- NOTE | 2019-08-09 17:22 | NUR ---
SWALLOW STATUS/ D C SUMMARY: PATIENT DID NOT MEET P.O. INTAKE GOALS DUE TO HIGH RISK FOR ASPIRATION DUE TO MOD/SEV OROPHARYNGEAL DYSPHAGIA, INABILITY TO PARTICIPATE IN COMPENSATORY STRATEGIES (DUE TO DECREASED MENTATION) AND OPPOSITION TO P.O. INTAKE. TRIALS TODAY ATTEMPTED WITH NECTAR THICK LIQUIDS AND PATIENT OPPOSITIONAL/UNWILLING TO PARTICIPATE. ORAL CARE GOALS MET WITH NURSING STAFF. RECOMMEND: CONTINUE NPO WITH ORAL CARE. D/C FROM [facility]
--- NOTE | 2019-08-09 17:30 | Internal Med Progress Note ---
Subjective Date of Service: Aug 09, 2019 Physician Name Xander Bah Attending Physician Lamont Hayes MD Current Medications Medications (Trade) Dose Ordered Sig/Kike Route PRN Reason Start Time Stop Time Status Last Admin Dose Admin Acetaminophen (Tylenol) 650 mg Q4H PRN ORAL fever 07/21/19 05:30 08/17/19 05:29 Albuterol/ Ipratropium (Albuterol/ Ipratropium) 3 ml Q4H PRN HHN Shortness of Breath 08/06/19 18:45 08/11/19 18:44 Alprazolam (Xanax) 0.5 mg Q6H PRN ORAL For Anxiety 08/02/19 20:45 08/09/19 20:44 08/04/19 04:29 Amlodipine Besylate (Norvasc) 2.5 mg DAILY NG 07/24/19 09:00 08/23/19 08:59 08/09/19 08:53 Docusate Sodium (Colace) 100 mg TWICE A DAY NG 08/07/19 18:00 09/06/19 17:59 08/09/19 17:22 Folic Acid (Folate) 2 mg DAILY ORAL 07/21/19 09:00 08/19/19 11:29 08/09/19 08:54 Lansoprazole (Prevacid) 30 mg BID NG 07/23/19 18:00 08/22/19 17:59 08/09/19 17:22 Levothyroxine Sodium (Synthroid) 50 mcg DAILY@0630 ORAL 07/21/19 06:30 08/18/19 06:29 08/09/19 06:25 Ondansetron HCl (Zofran) 4 mg Q6H PRN IVP Nausea & Vomiting 07/21/19 08:15 08/17/19 14:14 Polyethylene Glycol (Miralax) 17 gm DAILYPRN PRN ORAL Constipation 07/21/19 05:30 08/17/19 05:29 Quetiapine Fumarate (SEROqueL) 25 mg Q8H PRN ORAL agitation 07/21/19 05:30 08/17/19 05:29 08/08/19 08:16 Allergies: Coded Allergies: PENICILLINS (Verified Allergy, Unknown, 10/27/18) tolretas cephalosporins Subjective 84 YO M admitted with altered mental status. Now pneumonia and severe sepsis. Cover for Int Med-Dr Hayes. PEG postponed Objective Last Vital Signs Date Time Temp Pulse Resp B/P (MAP) Pulse Ox O2 Delivery O2 Flow Rate FiO2 08/09/19 16:00 97.7 64 18 116/49 (71) 100 08/09/19 09:00 Nasal Cannula 2.0 08/09/19 08:00 28 Laboratory Tests Test 08/09/19 05:23 White Blood Count 11.5 K/UL (4.8-10.8) #H Red Blood Count 3.65 M/UL (4.70-6.10) L Hemoglobin 9.2 G/DL (14.2-18.0) L Hematocrit 29.1 % (42.0-52.0) L Mean Corpuscular Volume 80 FL (80-99) Mean Corpuscular Hemoglobin 25.2 PG (27.0-31.0) L Mean Corpuscular Hemoglobin Concent 31.7 G/DL (32.0-36.0) L Red Cell Distribution Width 16.7 % (11.6-14.8) H Platelet Count 722 K/UL (150-450) H Mean Platelet Volume 5.7 FL (6.5-10.1) L Neutrophils (%) (Auto) 75.2 % (45.0-75.0) H Lymphocytes (%) (Auto) 13.7 % (20.0-45.0) L Monocytes (%) (Auto) 7.4 % (1.0-10.0) Eosinophils (%) (Auto) 2.8 % (0.0-3.0) Basophils (%) (Auto) 1.0 % (0.0-2.0) Sodium Level 138 MMOL/L (136-145) Potassium Level 4.6 MMOL/L (3.5-5.1) Chloride Level 102 MMOL/L (98-107) Carbon Dioxide Level 27 MMOL/L (21-32) Anion Gap 9 mmol/L (5-15) Blood Urea Nitrogen 40 mg/dL (7-18) H Creatinine 1.3 MG/DL (0.55-1.30) Estimat Glomerular Filtration Rate > 60 mL/min (>60) Glucose Level 104 MG/DL (74-106) Calcium Level 9.7 MG/DL (8.5-10.1) Total Bilirubin 0.3 MG/DL (0.2-1.0) Aspartate Amino Transf (AST/SGOT) 40 U/L (15-37) H Alanine Aminotransferase (ALT/SGPT) 28 U/L (12-78) Alkaline Phosphatase 119 U/L (46-116) H Pro-B-Type Natriuretic Peptide 148 pg/mL (0-125) H Total Protein 9.8 G/DL (6.4-8.2) H Albumin 2.9 G/DL (3.4-5.0) L Globulin 6.9 g/dL Albumin/Globulin Ratio 0.4 (1.0-2.7) L Intake and Output 08/08/19 08/09/19 19:00 07:00 Intake Total 80 ml 540 ml Output Total 200 ml Balance -120 ml 540 ml Free Water 60 ml 200 ml Tube Feeding 20 ml 340 ml Output Urine Total 200 ml # Voids 3 Objective PHYSICAL EXAMINATION: GENERAL: The patient is a well-developed, well-nourished, thin-appearing male, who is in moderate respiratory distress. HEENT: Eyes, pupils are equal and responsive to light and accommodation. Extraocular movements are intact. NECK: Supple without lymphadenopathy. CHEST: Venturi mask; Lungs with bilateral wheezes and rhonchi; breath sounds decreased at bases CARDIOVASCULAR: Regular rhythm and rate. S1 and S2 are normal without murmurs, rubs, or gallops. ABDOMEN: Soft, nontender, and nondistended. Positive bowel sounds. No evidence of hepatosplenomegaly. Currently, no rebound or guarding noted. EXTREMITIES: Negative for clubbing, cyanosis, or edema. RECTAL/GENITAL: Not performed. NEUROLOGIC: Cranial nerves II through XII are grossly intact without focal deficits. Motor strength is 5/5 bilaterally. Deep tendon reflexes are 2+ plantar. Assessment/Plan Assessment/Plan ASSESSMENT: This is an 84-year-old male. 1. Bilateral pneumonia. 2. Respiratory failure. 3. Probable sepsis. 4. Altered mental status. 5. Diabetes type 2. 6. Hypothyroidism. 7. Cerebrovascular disease. 8. Acute renal failure. 9. Leukocytosis 10. Hypernatremia 11. Right pleural effusion 12. dysphagia TREATMENT: 1. Respiratory failure/bilateral pneumonia. A Pulmonary consultation has been obtained with Dr. Vania Hui. The patient is currently admitted to the intensive care unit. The patient is currently on a venturi mask. The patient has been started empirically on vancomycin and ertapenem. A sputum culture =MRSA. S/P vanco per ID=Dr Roach 2. Altered mental status. This is probably secondary to hypoxia secondary to pneumonia as above. 3. Diabetes type 2. The patient was admitted without antihyperglycemic medication. 4. Hypothyroidism. Continue Levoxyl as above. 5. Cerebrovascular disease. The patient is status post cerebrovascular accident. 6. Acute renal failure. This may be secondary to acute dehydration. The patient is currently receiving intravenous fluids. 7. Severe Sepsis. ABX=S/P vanco . ID=Dr Matias 8. S/P right thoracentesis 07/26/19 9. Endoscopy/PEG postponed-see GI note; failed swallow Xander Sinclair MD Aug 09, 2019 17:30
--- NOTE | 2019-08-09 19:30 | NUR ---
NURSE NOTES: Received report from KIA Day. Patient is in bed, awake, responsive to name. Breathing regular and unlabored with no s/s of SOB noted at this time. Patient remains on a 2L NC, with saturation of 98%. Patient is on a G-tube feeding of Osmolite 1.2 per MD orders. IV access intact, patent, and saline locked at this time. Patient does not appear to be in discomfort at this time. Bed remains in lowest position, breaks engaged, and call light within reach at all times. All other needs attended to, patient remains stable, will continue to monitor.
--- NOTE | 2019-08-09 19:30 | NUR ---
HAND-OFF: Report given to KAI Mackenzie. The patient is resting on the bed without acute distress or shortness of breath. The patient's bed in the lowest position, call light in reach, and fall and aspiration precaution reinforced. G tube intact and running formula per order. Oxygen therapy per order. IV site intact and patent. Endorsed plan of care.
[2019-08-09 20:00] VITALS: BP 108/49
[2019-08-10] VITALS: BP 115/59
[2019-08-10 04:00] VITALS: BP 134/61
--- NOTE | 2019-08-10 04:00 | NUR ---
NURSE NOTES: For the midnight rhythm strip, them patient's rhythm showed A-fib, which then converted to NSR. EKG was performed and showed NSR. Patient has been NSR since then. is aware.
[2019-08-10 06:26] LABS: EOSINOPHILS % (AUTO) 2.9 % (0.0-3.0); HEMATOCRIT 29.4 % (42.0-52.0); HEMOGLOBIN 9.2 G/DL (14.2-18.0); LYMPHOCYTES % (AUTO) 16.5 % (20.0-45.0); MEAN CORPUSCULAR VOLUME 79 FL (80-99); MONOCYTES % (AUTO) 11.6 % (1.0-10.0); PLATELET COUNT 625 K/UL (150-450); RED BLOOD COUNT 3.71 M/UL (4.70-6.10); RED CELL DISTRIBUTION WIDTH 17.2 % (11.6-14.8); WHITE BLOOD COUNT 8.7 K/UL (4.8-10.8)
[2019-08-10 06:38] LABS: ANION GAP 7 mmol/L (5-15); BLOOD UREA NITROGEN 38 mg/dL (7-18); CALCIUM 9.8 MG/DL (8.5-10.1); CARBON DIOXIDE 28 MMOL/L (21-32); CHLORIDE 105 MMOL/L (98-107); CREATININE 1.4 MG/DL (0.55-1.30); POTASSIUM 4.5 MMOL/L (3.5-5.1); SODIUM 140 MMOL/L (136-145)
--- NOTE | 2019-08-10 07:38 | NUR ---
HAND-OFF: Report given to KAI Rausch. Patient in stable condition. Plan of care endorsed.
--- NOTE | 2019-08-10 07:40 | NUR ---
NURSE NOTES: Received report from Avril/RN, Patient is awake, lying semi-mcadams's, resting comfortably.On 2L nasal canula, No acute distress/SOB noted. On air mattress for protection. IV on Left hand, Patent, no bleeding or infiltration noted. G-tube feeding, running at 50cc/hr with goal of 65cc/hr. Bed in low position and locked, bed alarm engaged, Side rails up x3. call light within reach, Encouraged to use call light when needed. Will continue plan of care.
[2019-08-10 08:00] VITALS: BP 135/58
--- NOTE | 2019-08-10 08:43 | NUR ---
TRANSFER TO FLOOR: Patient transferred to [facility] 4[facility], per Dr. Hui. Report given to Prema Jenkins/KAI. No Belongings, chart given to receiving nurse. Endorsed plan of care.
--- NOTE | 2019-08-10 08:45 | NUR ---
NURSE NOTES: Received patient from tele. patient is awake, verbally responsive but confused with date and place. Not in acute respiratory/cardiac distress. breathing is even and unlabored. No s/s of pain or discomfort. GT is intact, no angel. skin assessment done. No belongings noted and re-orientation given about the unit. Will continue plan of care.
--- NOTE | 2019-08-10 08:50 | NUR ---
CASE MANAGEMENT:REVIEW 08/09/19 SI: SEPSIS. ZHOU PNA. POD #1....S/P PEG 97.7 68 18 119/57 98% ON 2L/NC WBC+11.5 H/H-9.2/29.1 BUN+40 IS:FOLATE GT QD PREVACID GT BID NORVASC GT QD GTF@ 40/HR : TELEMETRY STATUS DCP: FROM [facility] 08/10/19 SI: SEPSIS. ZHOU PNA. POD #2....S/P PEG ESOPHAGEAL MASS 97.3 68 20 134/61 99% ON 2L/NC H/H-9.2/29.4 BUN+38 CR+1.4 IS:FOLATE GT QD PREVACID GT BID NORVASC GT QD GTF@ 40/HR : TELEMETRY STATUS DCP: FROM [facility]
[2019-08-10] MEDS ORDERED: Albuterol/Ipratropium 3ml neb HHN PRN (09:00)
[2019-08-10] MEDS ORDERED: Miralax 17gm pkt ORAL PRN (09:00)
[2019-08-10] MEDS ORDERED: Docusate 100mg/10ml Liq NG SCH (09:00)
[2019-08-10] MEDS ORDERED: Miralax 17gm pkt GT PRN (09:00)
[2019-08-10] MEDS ORDERED: Acetaminophen 650mg/20.3ml GT PRN (09:00)
--- NOTE | 2019-08-10 09:05 | NUR ---
DISCHARGE PLANNING CLINICALS FAXED TO [facility] YESTERDAY CALLED [facility] THIS MORNING AND WAS ASKED TO CALL BACK AT 1030 WHICH IS WHEN THEIR HVAC INSTRUCTOR WILL BE IN
--- NOTE | 2019-08-10 09:22 | Infectious Diseases Prog Note ---
Assessment/Plan Assessment/Plan Assessment: Leukocytosis, >> Nl WBC ( 3/4) Severe sepsis, sp Pneumonia, Sp Rx Probable UTI, SP Rx -07/25 CXR: Markedly increased right basilar opacity, likely increasing pleural fluid -07/22 CXR: Worsening CHF -u/a wbc 15-20, nit neg, leuk +3; ucx <10k Proteus sp (R Amp, ancef, macrobid ; otherwise), 70-80K S. viridans -07/19 CXR: marked worsening of pleural and parenchymal disease at the right lung base.There is also increasing parenchymal consolidation and atelectasis in the left infrahilar region. -CXR: Perihilar and basilar infiltrates. Findings suspicious for pneumonia. -influenza sc neg -Bcx NTD -sp cx MRSA, C. albicans -legionella ag urine neg R pleural effusion -07/26 SP thoracentesis: Successful ultrasound-guided thoracentesis, yielding 780 milliliters of fluid --Cx NTD -07/26 CXR: Improved right pleural effusion, post thoracentesis. No radiographically evident complication Hypothermia, SP Acute respiratory failure, sp NRB mask/VEnturi mask Lactic acidosis, SP RAMAN, SP Dm2 HTN non verbal hypothyroidism CVA hx of UTI anemia dementia group home resident Plan: monitor pt off of AB RX - 07/31 Sp IV Vancomycin #14/ for MRSA PNA -07/26 SP Cefepime #5 -07/22 SP Barbara #4 -07/19 SP Ertapenem #2 -07/18 SP IV Amikacin x1, Levaquin x1 -Monitor CBC/CMP, temperatures -aspiration precautions Thank you for this consultation. Will continue to follow along with you. Subjective Allergies: Coded Allergies: PENICILLINS (Verified Allergy, Unknown, 10/27/18) tolretas cephalosporins Subjective comfortable , Objective Vital Signs Last 24 Hour Vital Signs Date Time Temp Pulse Resp B/P (MAP) Pulse Ox O2 Delivery O2 Flow Rate FiO2 08/10/19 08:00 97.8 69 19 135/58 (83) 98 08/10/19 04:00 72 08/10/19 04:00 97.3 68 20 134/61 (85) 99 08/10/19 00:00 97.3 61 20 115/59 (77) 96 08/10/19 00:00 63 08/09/19 21:00 Nasal Cannula 2.0 08/09/19 20:00 97.5 62 20 108/49 (68) 99 08/09/19 20:00 61 08/09/19 19:36 97 Nasal Cannula 2.0 28 08/09/19 19:36 66 18 97 Nasal Cannula 2.0 28 08/09/19 16:00 97.7 64 18 116/49 (71) 100 08/09/19 16:00 60 08/09/19 12:00 98.1 65 18 137/53 (81) 100 08/09/19 12:00 63 Height (Feet): 6 Height (Inches): 1.00 Weight (Pounds): 156 HEENT: mucous membranes moist Respiratory/Chest: no respiratory distress Cardiovascular: regularly irregular Abdomen: no organomegaly Laboratory Tests Test 08/10/19 05:50 White Blood Count 8.7 K/UL (4.8-10.8) Red Blood Count 3.71 M/UL (4.70-6.10) L Hemoglobin 9.2 G/DL (14.2-18.0) L Hematocrit 29.4 % (42.0-52.0) L Mean Corpuscular Volume 79 FL (80-99) L Mean Corpuscular Hemoglobin 24.9 PG (27.0-31.0) L Mean Corpuscular Hemoglobin Concent 31.4 G/DL (32.0-36.0) L Red Cell Distribution Width 17.2 % (11.6-14.8) H Platelet Count 625 K/UL (150-450) H Mean Platelet Volume 5.6 FL (6.5-10.1) L Neutrophils (%) (Auto) 68.0 % (45.0-75.0) Lymphocytes (%) (Auto) 16.5 % (20.0-45.0) L Monocytes (%) (Auto) 11.6 % (1.0-10.0) H Eosinophils (%) (Auto) 2.9 % (0.0-3.0) Basophils (%) (Auto) 1.0 % (0.0-2.0) Sodium Level 140 MMOL/L (136-145) Potassium Level 4.5 MMOL/L (3.5-5.1) Chloride Level 105 MMOL/L (98-107) Carbon Dioxide Level 28 MMOL/L (21-32) Anion Gap 7 mmol/L (5-15) Blood Urea Nitrogen 38 mg/dL (7-18) H Creatinine 1.4 MG/DL (0.55-1.30) H Estimat Glomerular Filtration Rate 58.3 mL/min (>60) Glucose Level 129 MG/DL (74-106) H Calcium Level 9.8 MG/DL (8.5-10.1) Current Medications Medications (Trade) Dose Ordered Sig/Kike Route PRN Reason Start Time Stop Time Status Last Admin Dose Admin Acetaminophen (Tylenol) 650 mg Q4H PRN GT fever 08/10/19 09:00 08/17/19 08:59 Albuterol/ Ipratropium (Albuterol/ Ipratropium) 3 ml Q4H PRN HHN Shortness of Breath 08/10/19 09:00 08/11/19 08:59 Amlodipine Besylate (Norvasc) 2.5 mg DAILY NG 08/10/19 09:00 08/23/19 08:59 Docusate Sodium (Colace) 100 mg TWICE A DAY NG 08/10/19 09:00 09/06/19 17:59 Folic Acid (Folate) 2 mg DAILY GT 08/10/19 09:00 08/19/19 11:29 Lansoprazole (Prevacid) 30 mg BID NG 08/10/19 09:00 08/22/19 17:59 Levothyroxine Sodium (Synthroid) 50 mcg DAILY@0630 GT 08/11/19 06:30 08/18/19 06:29 Ondansetron HCl (Zofran) 4 mg Q6H PRN IVP Nausea & Vomiting 08/10/19 09:00 08/17/19 08:59 Polyethylene Glycol (Miralax) 17 gm DAILYPRN PRN GT Constipation 08/10/19 09:00 09/09/19 08:59 Quetiapine Fumarate (SEROqueL) 25 mg Q8H PRN GT agitation 08/10/19 09:00 08/17/19 08:59 Alexander Lock MD Aug 10, 2019 09:22
[2019-08-10 12:00] VITALS: BP 122/48
--- NOTE | 2019-08-10 12:47 | Internal Med Progress Note ---
Subjective Date of Service: Aug 10, 2019 Physician Name Xander Bah Attending Physician Lamont Hayes MD Current Medications Medications (Trade) Dose Ordered Sig/Kike Route PRN Reason Start Time Stop Time Status Last Admin Dose Admin Acetaminophen (Tylenol) 650 mg Q4H PRN GT fever 08/10/19 09:00 08/17/19 08:59 Albuterol/ Ipratropium (Albuterol/ Ipratropium) 3 ml Q4H PRN HHN Shortness of Breath 08/10/19 09:00 08/11/19 08:59 Amlodipine Besylate (Norvasc) 2.5 mg DAILY NG 08/10/19 09:00 08/23/19 08:59 08/10/19 10:39 Docusate Sodium (Colace) 100 mg TWICE A DAY NG 08/10/19 09:00 09/06/19 17:59 08/10/19 10:39 Folic Acid (Folate) 2 mg DAILY GT 08/10/19 09:00 08/19/19 11:29 08/10/19 10:38 Lansoprazole (Prevacid) 30 mg BID NG 08/10/19 09:00 08/22/19 17:59 08/10/19 10:39 Levothyroxine Sodium (Synthroid) 50 mcg DAILY@0630 GT 08/11/19 06:30 08/18/19 06:29 Ondansetron HCl (Zofran) 4 mg Q6H PRN IVP Nausea & Vomiting 08/10/19 09:00 08/17/19 08:59 Polyethylene Glycol (Miralax) 17 gm DAILYPRN PRN GT Constipation 08/10/19 09:00 09/09/19 08:59 Quetiapine Fumarate (SEROqueL) 25 mg Q8H PRN GT agitation 08/10/19 09:00 08/17/19 08:59 08/10/19 10:39 Allergies: Coded Allergies: PENICILLINS (Verified Allergy, Unknown, 10/27/18) tolretas cephalosporins ROS Limited/Unobtainable: No Constitutional: Reports: no symptoms HEENT: Reports: no symptoms Cardiovascular: Reports: no symptoms Respiratory: Reports: no symptoms Gastrointestinal/Abdominal: Reports: no symptoms Genitourinary: Reports: no symptoms Neurologic/Psychiatric: Reports: no symptoms Subjective 84 YO M admitted with altered mental status. Now pneumonia and severe sepsis. Cover for Int Med-Dr Hayes. S/P EGD with PEG placement 08/08/19 Objective Last Vital Signs Date Time Temp Pulse Resp B/P (MAP) Pulse Ox O2 Delivery O2 Flow Rate FiO2 08/10/19 12:00 97.9 61 18 122/48 (72) 98 08/10/19 09:00 Nasal Cannula 2.0 08/09/19 19:36 28 Laboratory Tests Test 08/10/19 05:50 White Blood Count 8.7 K/UL (4.8-10.8) Red Blood Count 3.71 M/UL (4.70-6.10) L Hemoglobin 9.2 G/DL (14.2-18.0) L Hematocrit 29.4 % (42.0-52.0) L Mean Corpuscular Volume 79 FL (80-99) L Mean Corpuscular Hemoglobin 24.9 PG (27.0-31.0) L Mean Corpuscular Hemoglobin Concent 31.4 G/DL (32.0-36.0) L Red Cell Distribution Width 17.2 % (11.6-14.8) H Platelet Count 625 K/UL (150-450) H Mean Platelet Volume 5.6 FL (6.5-10.1) L Neutrophils (%) (Auto) 68.0 % (45.0-75.0) Lymphocytes (%) (Auto) 16.5 % (20.0-45.0) L Monocytes (%) (Auto) 11.6 % (1.0-10.0) H Eosinophils (%) (Auto) 2.9 % (0.0-3.0) Basophils (%) (Auto) 1.0 % (0.0-2.0) Sodium Level 140 MMOL/L (136-145) Potassium Level 4.5 MMOL/L (3.5-5.1) Chloride Level 105 MMOL/L (98-107) Carbon Dioxide Level 28 MMOL/L (21-32) Anion Gap 7 mmol/L (5-15) Blood Urea Nitrogen 38 mg/dL (7-18) H Creatinine 1.4 MG/DL (0.55-1.30) H Estimat Glomerular Filtration Rate 58.3 mL/min (>60) Glucose Level 129 MG/DL (74-106) H Calcium Level 9.8 MG/DL (8.5-10.1) Intake and Output 08/09/19 08/10/19 19:00 07:00 # Voids 2 3 Objective PHYSICAL EXAMINATION: GENERAL: The patient is a well-developed, well-nourished, thin-appearing male, who is in moderate respiratory distress. HEENT: Eyes, pupils are equal and responsive to light and accommodation. Extraocular movements are intact. NECK: Supple without lymphadenopathy. CHEST: Venturi mask; Lungs with bilateral wheezes and rhonchi; breath sounds decreased at bases CARDIOVASCULAR: Regular rhythm and rate. S1 and S2 are normal without murmurs, rubs, or gallops. ABDOMEN: Soft, nontender, and nondistended. Positive bowel sounds. No evidence of hepatosplenomegaly. Currently, no rebound or guarding noted. EXTREMITIES: Negative for clubbing, cyanosis, or edema. RECTAL/GENITAL: Not performed. NEUROLOGIC: Cranial nerves II through XII are grossly intact without focal deficits. Motor strength is 5/5 bilaterally. Deep tendon reflexes are 2+ plantar. Assessment/Plan Assessment/Plan ASSESSMENT: This is an 84-year-old male. 1. Bilateral pneumonia. 2. Respiratory failure. 3. Probable sepsis. 4. Altered mental status. 5. Diabetes type 2. 6. Hypothyroidism. 7. Cerebrovascular disease. 8. Acute renal failure. 9. Leukocytosis 10. Hypernatremia 11. Right pleural effusion 12. dysphagia TREATMENT: 1. Respiratory failure/bilateral pneumonia. A Pulmonary consultation has been obtained with Dr. Vania Hui. The patient is currently admitted to the intensive care unit. The patient is currently on a venturi mask. The patient has been started empirically on vancomycin and ertapenem. A sputum culture =MRSA. S/P vanco per ID=Dr Roach 2. Altered mental status. This is probably secondary to hypoxia secondary to pneumonia as above. 3. Diabetes type 2. The patient was admitted without antihyperglycemic medication. 4. Hypothyroidism. Continue Levoxyl as above. 5. Cerebrovascular disease. The patient is status post cerebrovascular accident. 6. Acute renal failure. This may be secondary to acute dehydration. The patient is currently receiving intravenous fluids. 7. Severe Sepsis. ABX=S/P vanco . ID=Dr Matias 8. S/P right thoracentesis 07/26/19 9. Endoscopy/PEG postponed-see GI note; failed swallow Xander Sinclair MD Aug 10, 2019 12:47
--- NOTE | 2019-08-10 12:48 | Pulmonology Progress Note ---
Assessment/Plan Problems: (1) Nosocomial pneumonia (2) Pulmonary edema (3) Pleural effusion Assessment & Plan: thoracentesis done, 780 cc removed (4) Sepsis Assessment & Plan: afebrile, wbc wnl (5) Atrial fibrillation (6) Acute renal failure (7) Acute metabolic encephalopathy (8) Severe anemia (9) Alzheimer's dementia (10) History of CVA (cerebrovascular accident) (11) Diabetes mellitus (12) Hypothyroidism (13) At high risk for aspiration (14) Encounter for PEG (percutaneous endoscopic gastrostomy) Assessment/Plan bun/creatinine up, most likely secondary to lasix, will hold for now more awake Gtube done tolerated well repeat cxr, and BNP in am respiratory treatment sliding scale DVT prophylaxis. dc planning Subjective ROS Limited/Unobtainable: No Interval Events: getting better Allergies: Coded Allergies: PENICILLINS (Verified Allergy, Unknown, 10/27/18) tolretas cephalosporins Objective Last 24 Hour Vital Signs Date Time Temp Pulse Resp B/P (MAP) Pulse Ox O2 Delivery O2 Flow Rate FiO2 08/10/19 12:00 97.9 61 18 122/48 (72) 98 08/10/19 10:39 69 135/58 08/10/19 09:00 Nasal Cannula 2.0 08/10/19 08:00 97.8 69 19 135/58 (83) 98 08/10/19 04:00 72 08/10/19 04:00 97.3 68 20 134/61 (85) 99 08/10/19 00:00 97.3 61 20 115/59 (77) 96 08/10/19 00:00 63 08/09/19 21:00 Nasal Cannula 2.0 08/09/19 20:00 97.5 62 20 108/49 (68) 99 08/09/19 20:00 61 08/09/19 19:36 97 Nasal Cannula 2.0 28 08/09/19 19:36 66 18 97 Nasal Cannula 2.0 28 08/09/19 16:00 97.7 64 18 116/49 (71) 100 08/09/19 16:00 60 Intake and Output 08/09/19 08/10/19 19:00 07:00 # Voids 2 3 General Appearance: WD/WN HEENT: normocephalic, atraumatic Respiratory/Chest: chest wall non-tender, lungs clear Cardiovascular: normal peripheral pulses, normal rate Abdomen: normal bowel sounds, soft, non tender Genitourinary: normal external genitalia Extremities: no cyanosis Skin: no rash Neurologic/Psychiatric: chief service observer II-XII grossly normal, normal mood/affect Musculoskeletal: normal muscle bulk Laboratory Tests 08/10/19 05:50: White Blood Count 8.7, Red Blood Count 3.71L, Hemoglobin 9.2L, Hematocrit 29.4L , Mean Corpuscular Volume 79L, Mean Corpuscular Hemoglobin 24.9L, Mean Corpuscular Hemoglobin Concent 31.4L, Red Cell Distribution Width 17.2H, Platelet Count 625H, Mean Platelet Volume 5.6L, Neutrophils (%) (Auto) 68.0, Lymphocytes (%) (Auto) 16.5L, Monocytes (%) (Auto) 11.6H, Eosinophils (%) (Auto ) 2.9, Basophils (%) (Auto) 1.0, Sodium Level 140, Potassium Level 4.5, Chloride Level 105, Carbon Dioxide Level 28, Anion Gap 7, Blood Urea Nitrogen 38H, Creatinine 1.4H, Estimat Glomerular Filtration Rate 58.3, Glucose Level 129H, Calcium Level 9.8 Current Medications Medications (Trade) Dose Ordered Sig/Kike Route PRN Reason Start Time Stop Time Status Last Admin Dose Admin Acetaminophen (Tylenol) 650 mg Q4H PRN GT fever 08/10/19 09:00 08/17/19 08:59 Albuterol/ Ipratropium (Albuterol/ Ipratropium) 3 ml Q4H PRN HHN Shortness of Breath 08/10/19 09:00 08/11/19 08:59 Amlodipine Besylate (Norvasc) 2.5 mg DAILY NG 08/10/19 09:00 08/23/19 08:59 08/10/19 10:39 Docusate Sodium (Colace) 100 mg TWICE A DAY NG 08/10/19 09:00 09/06/19 17:59 08/10/19 10:39 Folic Acid (Folate) 2 mg DAILY GT 08/10/19 09:00 08/19/19 11:29 08/10/19 10:38 Lansoprazole (Prevacid) 30 mg BID NG 08/10/19 09:00 08/22/19 17:59 08/10/19 10:39 Levothyroxine Sodium (Synthroid) 50 mcg DAILY@0630 GT 08/11/19 06:30 08/18/19 06:29 Ondansetron HCl (Zofran) 4 mg Q6H PRN IVP Nausea & Vomiting 08/10/19 09:00 08/17/19 08:59 Polyethylene Glycol (Miralax) 17 gm DAILYPRN PRN GT Constipation 08/10/19 09:00 09/09/19 08:59 Quetiapine Fumarate (SEROqueL) 25 mg Q8H PRN GT agitation 08/10/19 09:00 08/17/19 08:59 08/10/19 10:39 Vania Hui MD Aug 10, 2019 12:48
--- NOTE | 2019-08-10 15:13 | NUR ---
INSURANCE CLINICALS AND REVIEWS FAXED TO [facility] P- [phone] F- [phone]...REVIEW/CLINICAL
--- NOTE | 2019-08-10 15:14 | NUR ---
NURSE NOTES: Discharged patient to [facility] accompanied by two male ambulance personnels in stable condition. V/S stable and IV and ID were removed, no s/s of infection on IV removal site. Skin assessment done, no new skin issue. Inter facility report given to Rebecca QUINN. Endorsed plan of care. No belongings. GT intact, flushed and secured. Patient is wearing abdominal binder. GT site is clean and changed dressing.
--- NOTE | 2019-08-10 16:33 | Nephrology Progress Note ---
Assessment/Plan Problem List: (1) Acute renal failure (2) Severe anemia (3) Sepsis (4) Diabetes mellitus (5) Hypothyroidism Assessment Alexi Cr lowering 2.6 to 1.8 Sepsis / Pneumonia / UTI / Hypothermia Respiratory failure HypoThyroidism h/o CVA Anemia Dementia Plan Serum creatinine up to 1.6 now normalized Will discontinue Lasix Thyroid function tests. IV iron Phos supplement as needed antibiotics avoid nephrotoxics monitor renal parameters check TFTs- adjust synthroid dose per orders Subjective ROS Limited/Unobtainable: No Interval Events/Complaints Patient seen at 10:15 AM. Late note entry. Constitutional: Reports: malaise Objective Objective Last 24 Hour Vital Signs Date Time Temp Pulse Resp B/P (MAP) Pulse Ox O2 Delivery O2 Flow Rate FiO2 08/10/19 12:00 97.9 61 18 122/48 (72) 98 08/10/19 10:39 69 135/58 08/10/19 09:32 98 Nasal Cannula 2.0 28 08/10/19 09:00 Nasal Cannula 2.0 08/10/19 08:32 69 20 96 Nasal Cannula 2.0 28 08/10/19 08:00 97.8 69 19 135/58 (83) 98 08/10/19 04:00 72 08/10/19 04:00 97.3 68 20 134/61 (85) 99 08/10/19 00:00 97.3 61 20 115/59 (77) 96 08/10/19 00:00 63 08/09/19 21:00 Nasal Cannula 2.0 08/09/19 20:00 97.5 62 20 108/49 (68) 99 08/09/19 20:00 61 08/09/19 19:36 97 Nasal Cannula 2.0 28 08/09/19 19:36 66 18 97 Nasal Cannula 2.0 28 Intake and Output 08/09/19 08/10/19 19:00 07:00 # Voids 2 3 Laboratory Tests 08/10/19 05:50: White Blood Count 8.7, Red Blood Count 3.71L, Hemoglobin 9.2L, Hematocrit 29.4L , Mean Corpuscular Volume 79L, Mean Corpuscular Hemoglobin 24.9L, Mean Corpuscular Hemoglobin Concent 31.4L, Red Cell Distribution Width 17.2H, Platelet Count 625H, Mean Platelet Volume 5.6L, Neutrophils (%) (Auto) 68.0, Lymphocytes (%) (Auto) 16.5L, Monocytes (%) (Auto) 11.6H, Eosinophils (%) (Auto ) 2.9, Basophils (%) (Auto) 1.0, Sodium Level 140, Potassium Level 4.5, Chloride Level 105, Carbon Dioxide Level 28, Anion Gap 7, Blood Urea Nitrogen 38H, Creatinine 1.4H, Estimat Glomerular Filtration Rate 58.3, Glucose Level 129H, Calcium Level 9.8 Height (Feet): 6 Height (Inches): 1.00 Weight (Pounds): 156 General Appearance: no apparent distress, lethargic Respiratory/Chest: decreased breath sounds Abdomen: soft Objective no change Clovis Benites MD Aug 10, 2019 16:33
--- NOTE | 2019-08-11 14:40 | Discharge Summary ---
Discharge Summary Discharge Summary _ DATE OF ADMISSION: 07/18/2019 DATE OF DISCHARGE: 08/10/2019 DISCHARGED BY: Dr. Hayes REASON FOR ADMISSION: 84 years old male with past medical history of hypertension, CVA, diabetes mellitus, hypothyroidism, dementia, anemia, resident of residential facility , was brought to ED for altered mental status. Patient was unable to provide any history being nonverbal. Shortly after initial evaluation in ED, patient was diagnosed with sepsis, pneumonia and admitted to ICU for further management. CONSULTANTS: ophthalmic asst Dr. Fletcher pulmonary Dr. Hui ID specialist Dr. Lock GI specialist Dr. Rosario pen tender Dr. Benites HOSPITAL COURSE: Patient admitted and started on IV fluids and empiric antibiotics. Supplemental oxygen provided and titrated to keep pulse oximetry above 92%. NG tube was inserted , and patient was started on tube feeding with strict aspiration precautions. DVT prophylaxis provided. Patient initially was on nonrebreathing mask Patient was followed-up with ABG and chest x-ray. Blood cultures were negative. Influenza swab was negative. Urine culture revealed Proteus and Streptococcus viridans . Sputum culture revealed MRSA and Abi. Antibiotic regimen was optimized as per ID specialist recommendation. Patient completed treatment for pneumonia and probable UTI. Patient was able to be weaned from nonrebreathing mask to Venturi mask and then to nasal cannula. Chest x-ray on revealed markedly increased right basilar opacity, likely increasing pleural pleural fluid. Patient subsequently undergone ultrasound-guided thoracentesis on 07/26 , yielding 780 mL of pleural fluid . Chest x-ray post-thoracentesis revealed improved right pleural effusion , no radiographically evident complication. Pleural fluid culture was negative. Cytology of pleural fluid revealed no evidence of malignant cells. Echocardiogram demonstrated preserved ejection fraction of 65% with no evidence of pericardial effusion. No evidence of wall motion abnormality. Right ventricular systolic pressure of 41 consistent with mild pulmonary hypertension. Lipid panel was stable. Patient noted to be in sinus bradycardia , but he was asymptomatic . Bradycardia possibly could be related to hypothyroidism, no evidence of heart block. TSH noted to be elevated. Dose of Synthroid increased. Repeat TFT in 1 month. Bradycardia eventually resolved. Hemoglobin and hematocrit were closely monitored with goal to keep hemoglobin above 7. Stool for occult blood was negative. CEA was within normal limits. Anemia work-up consistent with anemia of iron deficiency and also revealed folate deficiency . Patient received Venofer. Folic acid supplements provided. Prior to discharge hemoglobin 9.2 , hematocrit 29.4. Patient failed swallow evaluation. Endoscopy initially scheduled for with PEG placement was canceled due to inability to get consent. DVT and GI prophylaxis provided. Bowel regimen instituted. Patient was on diuresis with close monitoring of volumes. Renal parameters and electrolytes were closely monitored. Electrolytes corrected as needed, and nephrotoxins were avoided. Creatinine trending down, prior to discharge creatinine 1.4 from initial 2.6. Acute renal failure was improving and was likely due to sepsis and dehydration. Consent for upper endoscopy with a PEG placement was eventually obtained. Patient undergone on 08/07 upper endoscopy with biopsy and PEG placement. Patient had a successful PEG placement. Patient was noted to have an esophageal mass from 20 cm to 25 cm , status post biopsy. G-tube site care started. Patient started on tube feeding later with strict aspiration precaution. Tube feeding formula goal rate and protein supplements provided as per registered dietitian recommendation. Patient was able to tolerate tube feeding. 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 Patient stabilized and was ready for transfer to residential facility. Consider outpatient follow-up with the oncologist if family agrees to proceed with further management. . FINAL DIAGNOSES: Sepsis Acute respiratory failure requiring nonrebreathing mask Bilateral pneumonia Acute metabolic encephalopathy Esophageal mass/squamous cell carcinoma, invasive Right pleural effusion Status post thoracentesis 07/26 Pulmonary edema Probable UTI Dysphagia Diabetes mellitus type 2 Acute renal failure Severe anemia Alzheimer dementia Cerebrovascular disease with history of CVA Diabetes mellitus Hypothyroidism Seizure disorder status post upper endoscopy with PEG placement 3/ Anemia of iron deficiency Hypothyroidism DISCHARGE MEDICATIONS: See Medication Reconciliation list. DISCHARGE INSTRUCTIONS: Patient was discharged to the residential facility. Follow up with medical doctor at the facility. I have been assigned to dictate discharge summary for this account. I was not involved in the patient's management. Miranda Pimentel NP Aug 11, 2019 14:40
== END 2019-08-10 15:10 | DRG 720 ==
LOC: EDBD 11:51 → EDBEDREQ 12:03 → EMR 12:32 → ICU 13:34 → EDBEDREQ 13:40 → 2W 07-21 05:26 → 2E 08-01 14:25 → 4E 08-10 08:30
PROC: 0W993ZZ Drainage of Right Pleural Cavity, Percutaneous Approach (ICD-10-PCS; principal; 2019-07-26)
PROC: 0DH63UZ Insertion of Feeding Device into Stomach, Percutaneous Approach (ICD-10-PCS; 2019-08-08 11:46)
PROC: 0DB58ZX Excision of Esophagus, Via Natural or Artificial Opening Endoscopic, Diagnostic (ICD-10-PCS; 2019-08-08 11:46)
DX: A41.9 Sepsis, unspecified organism (principal); J96.01 Acute respiratory failure with hypoxia; G93.41 Metabolic encephalopathy; N17.9 Acute kidney failure, unspecified; N39.0 Urinary tract infection, site not specified; J90 Pleural effusion, not elsewhere classified; C15.9 Malignant neoplasm of esophagus, unspecified; J15.212 Pneumonia due to Methicillin resistant Staphylococcus aureus; I10 Essential (primary) hypertension; E11.9 Type 2 diabetes mellitus without complications; R62.7 Adult failure to thrive; Z68.21 Body mass index [BMI] 21.0-21.9, adult; E86.0 Dehydration; E87.0 Hyperosmolality and hypernatremia; G30.9 Alzheimer's disease, unspecified; F02.80 Dementia in other diseases classified elsewhere, unspecified severity, without behavioral disturbance, psychotic disturbance, mood disturbance, and anxiety; Z86.73 Personal history of transient ischemic attack (TIA), and cerebral infarction without residual deficits; R68.0 Hypothermia, not associated with low environmental temperature; R13.10 Dysphagia, unspecified; E43 Unspecified severe protein-calorie malnutrition; I49.3 Ventricular premature depolarization; R00.1 Bradycardia, unspecified; M62.84 Sarcopenia; D52.9 Folate deficiency anemia, unspecified; I48.91 Unspecified atrial fibrillation
CPT/HCPCS: 36415; 36600; 71045; 74018; 74230; 76942; 80048; 80053; 80061; 80076; 80150; 80202; 81001; 81003; 82164; 82248; 82270; 82378; 82550; 82553; 82607; 82728; 82746; 82803; 82962; 82977; 83036; 83540; 83550; 83605; 83615; 83735; 83880; 84100; 84133; 84153; 84154; 84300; 84439; 84443; 84481; 84484; 84550; 85007; 85025; 85044; 85060; 85610; 85651; 85730; 86140; 86710; 87040; 87070; 87081; 87086; 87181; 87205; 88104; 89050; 89051; 93005; 93306; 94003; 94150; 94640; 94664; 96365; 96367; 96375; 99291; J2370; J7030; J7620; S0077

== ENCOUNTER 2019-09-07 00:21 | Inpatient (IN) | payer MEDICARE, OTHER ==
[2019-09-07] VITALS (9 sets, daily range): BP systolic 102–179; BP diastolic 56–80
[~2019-09-07] VITALS: Ht 180.3 cm; Wt 64.4 kg
[~2019-09-07 00:21] MED LIST changes: +ACETAMINOPHEN325 M1 ORAL; +FOLIC ACID1 MG ORAL; +FUROSEMIDE20 M1 ORAL; +NORVASC2.5 MG ORAL; +PREVACID30 MG ORAL; +XANAX0.5 MG ORAL
[2019-09-07] MEDS ORDERED: Acetaminophen 650 MG SUPP RECTAL ONE (00:32)
--- NOTE | 2019-09-07 01:18 | Emergency Room Report ---
History of Present Illness General Chief Complaint: Upper Respiratory Illness Source: Patient Present Illness HPI 84-year-old male presents ED for evaluation. Brought in by EMS from senior living facility. Nursing staff noted that patient has been having congestive symptoms x1 day. Difficult to suction. No reported fevers or chills. Appears congestive. Denies chest pain. Patient unable to write any additional history at this time. No signs of distress upon arrival. No other aggravating relieving factors. Denies any other associated symptoms Allergies: Coded Allergies: PENICILLINS (Verified Allergy, Unknown, 10/27/18) tolretas cephalosporins COVID-19 Screening Contact w/high risk pt: No Recent Travel to affected area: No Experienced COVID-19 symptoms?: No Patient History Past Medical History: DM, HTN, CVA/TIA, psych hx Past Surgical History: other - Gtube Pertinent Family History: none Social History: Denies: smoking, alcohol use, drug use Immunizations: UTD Reviewed Nursing Documentation: PMH: Agreed; PSxH: Agreed Nursing Documentation-PMH Hx Cardiac Problems: Yes - ANEMIA; HYPITHYROID Hx Hypertension: Yes Hx COPD: Yes - RESP FAILURE Hx Diabetes: Yes Hx Cancer: No Hx Gastrointestinal Problems: Yes - G TUBE History Of Psychiatric Problem: Yes - DEPRESSIVE Hx Neurological Problems: Yes Hx Cerebrovascular Accident: Yes Review of Systems All Other Systems: limited Physical Exam Vital Signs Date Time Temp Pulse Resp B/P (MAP) Pulse Ox O2 Delivery O2 Flow Rate FiO2 09/07/19 00:17 103 18 179/80 (113) 100 Nasal Cannula 4.0 Sp02 EP Interpretation: reviewed, normal General Appearance: no apparent distress, other - nonverbal Head: normocephalic Eyes: bilateral eye normal inspection, bilateral eye PERRL ENT: normal ENT inspection Neck: normal inspection Respiratory: crackles Cardiovascular #1: regular rate, rhythm, no edema Gastrointestinal: normal bowel sounds, non tender, soft, non-distended, no guarding, no rebound Rectal: deferred Genitourinary: no CVA tenderness Musculoskeletal: back normal Neurologic: other - nonverbal Psychiatric: other - nonverbal Skin: other - see nursing skin notes Lymphatic: normal inspection Medical Decision Making Diagnostic Impression: Primary Impression: Pleural effusion Additional Impression: UTI (urinary tract infection) Qualified Codes: N39.0 - Urinary tract infection, site not specified ER Course Hospital Course 84-year-old male presents with congestion, hypothermia Differential diagnoses include: Pneumonia, CHF exacerbation, pneumothorax, fluid overload Clinical course Patient placed on stretcher. On residential monitor with hypoxia on room air. Placed in isolation. I wore full PPE. After initial history and physical, I ordered deep suctioning. I ordered labs, IV fluids, EKG, chest x-ray, blood cultures, UA. Labs - no leukocytosis, hemoglobin/hematocrit stable, BUN elevated, LFTs elevated EKG - NSR, no acute ischemic changes interpreted by me CXR - large R pleural effusion COVID 19 swab collected and sent O2 sats improved after suctioning, on Oxygen. given abx Case discussed with Dr. Hayes and he agreed to the patient to his service for further care and support I feel this is a highly complex case requiring extensive working including EKG/ Rhythm strip, Xray/CT/US, Blood/urine lab work, repeat exams while in ED, and administration of strong opiates/narcotics for pain control, admission to hospital or close patient follow up. Diagnosis - pleural effusion, UTI Patient admitted to telemetry in serious condition Labs Test 09/07/19 01:15 09/07/19 01:30 White Blood Count 4.9 K/UL (4.8-10.8) Red Blood Count 4.02 M/UL (4.70-6.10) Hemoglobin 10.6 G/DL (14.2-18.0) Hematocrit 32.6 % (42.0-52.0) Mean Corpuscular Volume 81 FL (80-99) Mean Corpuscular Hemoglobin 26.3 PG (27.0-31.0) Mean Corpuscular Hemoglobin Concent 32.4 G/DL (32.0-36.0) Red Cell Distribution Width 20.6 % (11.6-14.8) Platelet Count 208 K/UL (150-450) Mean Platelet Volume 6.8 FL (6.5-10.1) Neutrophils (%) (Auto) 65.0 % (45.0-75.0) Lymphocytes (%) (Auto) 22.1 % (20.0-45.0) Monocytes (%) (Auto) 8.4 % (1.0-10.0) Eosinophils (%) (Auto) 3.8 % (0.0-3.0) Basophils (%) (Auto) 0.7 % (0.0-2.0) Urine Color Pale yellow Urine Appearance Slightly cloudy Urine pH 6.5 (4.5-8.0) Urine Specific [place] 1.015 (1.005-1.035) Urine Protein 2+ (NEGATIVE) Urine Glucose (UA) Negative (NEGATIVE) Urine Ketones Negative (NEGATIVE) Urine Blood 2+ (NEGATIVE) Urine Nitrite Negative (NEGATIVE) Urine Bilirubin Negative (NEGATIVE) Urine Urobilinogen Normal MG/DL (0.0-1.0) Urine Leukocyte Esterase 3+ (NEGATIVE) Urine RBC 2-4 /HPF (0 - 0) Urine WBC Tntc /HPF (0 - 0) Urine Squamous Epithelial Cells None /LPF (NONE/OCC) Urine Bacteria Many /HPF (NONE) Urine Yeast Many /HPF (NONE) Sodium Level 137 MMOL/L (136-145) Potassium Level 5.9 MMOL/L (3.5-5.1) Chloride Level 102 MMOL/L (98-107) Carbon Dioxide Level 27 MMOL/L (21-32) Anion Gap 8 mmol/L (5-15) Blood Urea Nitrogen 67 mg/dL (7-18) Creatinine 1.3 MG/DL (0.55-1.30) Estimat Glomerular Filtration Rate > 60 mL/min (>60) Glucose Level 135 MG/DL (74-106) Calcium Level 10.2 MG/DL (8.5-10.1) Total Bilirubin 0.1 MG/DL (0.2-1.0) Aspartate Amino Transf (AST/SGOT) 71 U/L (15-37) Alanine Aminotransferase (ALT/SGPT) 80 U/L (12-78) Alkaline Phosphatase 171 U/L (46-116) Total Protein 9.6 G/DL (6.4-8.2) Albumin 2.9 G/DL (3.4-5.0) Globulin 6.7 g/dL Albumin/Globulin Ratio 0.4 (1.0-2.7) EKG Diagnostic Results Rate: normal Rhythm: NSR ST Segments: no acute changes ASA given to the pt in ED: No Rhythm Strip Diag. Results EP Interpretation: yes Rhythm: NSR, no PVC's, no ectopy Chest X-Ray Diagnostic Results Chest X-Ray Diagnostic Results : Chest X-Ray Ordered: Yes # of Views/Limited/Complete: 1 View Indication: Shortness of Breath EP Interpretation: Yes Interpretation: no pneumothorax, other - R sided pleural effusion Impression: Other - pleural effusion Electronically Signed by: Electronically signed by Daniel Ramirez MD Last Vital Signs Date Time Temp Pulse Resp B/P (MAP) Pulse Ox O2 Delivery O2 Flow Rate FiO2 09/07/19 00:17 103 18 179/80 (113) 100 Nasal Cannula 4.0 Status: improved Disposition: ADMITTED INPATIENT Condition: Serious Referrals: Vania Hui MD (PCP) Daniel Ramirez MD Sep 07, 2019 01:18
[2019-09-07] MEDS ORDERED: Vancomycin 1 GM in NS 275 ML IVPB ONE (01:30)
[2019-09-07 01:52] LABS: APPEARANCE,URINE SLIGHTLY CLOUDY; BASOPHILS % (AUTO) 0.7 % (0.0-2.0); BILIRUBIN, URINE NEGATIVE (NEGATIVE); COLOR,URINE PALE YELLOW; EOSINOPHILS % (AUTO) 3.8 % (0.0-3.0); GLUCOSE, URINE (UA) NEGATIVE (NEGATIVE); HEMATOCRIT 32.6 % (42.0-52.0); HEMOGLOBIN 10.6 G/DL (14.2-18.0); KETONES,URINE NEGATIVE (NEGATIVE); LEUKOCYTE ESTERASE ,URINE 3+ (NEGATIVE); LYMPHOCYTES % (AUTO) 22.1 % (20.0-45.0); MEAN CORPUSCULAR VOLUME 81 FL (80-99); MONOCYTES % (AUTO) 8.4 % (1.0-10.0); NITRITE,URINE NEGATIVE (NEGATIVE); PH,URINE 6.5 (4.5-8.0); PLATELET COUNT 208 K/UL (150-450); PROTEIN,URINE 2+ (NEGATIVE); RED BLOOD COUNT 4.02 M/UL (4.70-6.10); RED CELL DISTRIBUTION WIDTH 20.6 % (11.6-14.8); UROBILINOGEN,URINE NORMAL MG/DL (0.0-1.0); WHITE BLOOD COUNT 4.9 K/UL (4.8-10.8)
[2019-09-07 02:09] LABS: ALANINE AMINOTRANSFERASE 80 U/L (12-78); ALBUMIN 2.9 G/DL (3.4-5.0); ALBUMIN/GLOBULIN RATIO 0.4 (1.0-2.7); ALKALINE PHOSPHATASE 171 U/L (46-116); ANION GAP 8 mmol/L (5-15); ASPARTATE AMINO TRANSFERASE 71 U/L (15-37); BILIRUBIN,TOTAL 0.1 MG/DL (0.2-1.0); BLOOD UREA NITROGEN 67 mg/dL (7-18); CALCIUM 10.2 MG/DL (8.5-10.1); CARBON DIOXIDE 27 MMOL/L (21-32); CHLORIDE 102 MMOL/L (98-107); CREATININE 1.3 MG/DL (0.55-1.30); POTASSIUM 5.9 MMOL/L (3.5-5.1); SODIUM 137 MMOL/L (136-145)
[2019-09-07] MEDS ORDERED: Morphine Sulfate 2mg/ml Inj(IV/IM USE ONLY) IVP PRN (05:15)
[2019-09-07] MEDS ORDERED: Acetaminophen 650 MG SUPP RECTAL PRN (05:15)
[2019-09-07] MEDS ORDERED: Miralax 17gm pkt ORAL PRN (08:15)
[2019-09-07] MEDS ORDERED: Albuterol/Ipratropium 3ml neb HHN PRN (08:15)
[2019-09-07] MEDS ORDERED: Nitroglycerin Subl 0.4mg tab SL PRN (08:15)
[2019-09-07] MEDS ORDERED: ALPRAZolam 0.5mg tab ORAL PRN (08:15)
[2019-09-07] MEDS ORDERED: Promethazine/Codeine 5ml UD ORAL PRN (08:15)
--- NOTE | 2019-09-07 09:24 | Diagnostic Imaging Report ---
Indication: Cough for one week Technique: One view of the chest Comparison: 08/09/2019 Findings: Again demonstrated is a right-sided pleural effusion, moderate in size, probably slightly larger than on the previous exam. There may be some hazy parenchymal infiltrate as well. The left lung and pleural spaces are clear except for some atelectasis at the left lung base. Previously demonstrated free intraperitoneal air is no longer evident. The heart size is normal. The aorta is tortuous and calcified Impression: Right pleural effusion, also demonstrated on prior 08/09/2019 exam,, slightly increased. Hazy right lung parenchymal opacity probably represents a superimposed pleural fluid but infiltrate also possible Minimal left basilar atelectasis
[2019-09-07] MEDS: Cefepime HCl 1 GM in D5W 55 ML IV SCH ×2 (10:19→22:18)
[2019-09-07] MEDS: Levothyroxine 25mcg tab ORAL SCH (10:19)
[2019-09-07] MEDS: Heparin 5000 units/ml inj SUBQ SCH ×2 (10:20→22:11)
--- NOTE | 2019-09-07 12:20 | Consultation ---
History of Present Illness General Date patient seen: Sep 07, 2019 Chief Complaint: Upper Respiratory Illness Present Illness HPI 84-year-old male with past medical history of diabetes, hypertension, hypothyroidism, CVA, UTI, anemia, dementia, [facility] resident brought in from his extended care facility with CC of cough and congestion. Patient is non-verbal therefore history is limited. Allergies: Coded Allergies: PENICILLINS (Verified Allergy, Unknown, 10/27/18) tolretas cephalosporins Medication History Scheduled Amlodipine Besylate (Norvasc), 2.5 MG ORAL DAILY, (Reported) Folic Acid* (Folic Acid*), 2 MG ORAL DAILY, (Reported) Lansoprazole* (Prevacid*), 30 MG ORAL DAILY, (Reported) Levothyroxine Sodium* (Synthroid*), 25 MCG ORAL DAILY@0630 Mirtazapine* (Mirtazapine*), 7.5 MG ORAL BEDTIME Mirtazapine* (Remeron*), 15 MG ORAL BEDTIME, (Reported) Quetiapine Fumarate* (Seroquel*), 25 MG ORAL THREE TIMES A DAY, (Reported) Scheduled PRN Acetaminophen* (Acetaminophen 325MG Tablet*), 650 MG ORAL Q6H PRN for For Pain Level <=5, (Reported) Alprazolam* (Xanax*), 0.5 MG ORAL EVERY 6 HOURS PRN for For Anxiety, (Reported) Quetiapine Fumarate* (Seroquel*), 25 MG ORAL Q8H PRN Patient History Healthcare decision maker Resuscitation status Full Code Advanced Directive on File Past Medical/Surgical History Past Medical/Surgical History: (1) Atrial fibrillation (2) History of CVA (cerebrovascular accident) (3) Diabetes mellitus (4) Hypothyroidism (5) Alzheimer's dementia (6) PVC (premature ventricular contraction) (7) Hypertension (8) Failure to thrive Review of Systems All Other Systems: negative except mentioned in HPI Physical Exam General Appearance: cachetic, thin Lines, tubes and drains: peripheral HEENT: normocephalic, atraumatic Neck: non-tender, normal alignment Respiratory/Chest: chest wall non-tender, lungs clear Breasts: no masses Cardiovascular/Chest: normal peripheral pulses Genitourinary/Rectal: normal genital exam Extremities: normal range of motion, non-tender Skin Exam: normal pigmentation 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 II-XII grossly normal Lymphatic: anterior cervical Last 24 Hour Vital Signs Date Time Temp Pulse Resp B/P (MAP) Pulse Ox O2 Delivery O2 Flow Rate FiO2 09/07/19 10:18 77 122/54 09/07/19 08:50 98.2 77 22 124/56 (78) 97 09/07/19 06:38 95.5 71 24 153/57 99 Nasal Cannula 2.0 09/07/19 05:00 95.5 73 25 147/60 96 Nasal Cannula 2.0 09/07/19 03:00 95.5 68 16 146/65 98 Nasal Cannula 2.0 09/07/19 01:00 64 18 Nasal Cannula 2.0 09/07/19 00:30 92.3 64 18 179/80 98 Nasal Cannula 2.0 09/07/19 00:17 103 18 179/80 (113) 100 Nasal Cannula 4.0 Laboratory Tests Test 09/07/19 01:15 09/07/19 01:30 White Blood Count 4.9 K/UL (4.8-10.8) Red Blood Count 4.02 M/UL (4.70-6.10) L Hemoglobin 10.6 G/DL (14.2-18.0) L Hematocrit 32.6 % (42.0-52.0) L Mean Corpuscular Volume 81 FL (80-99) Mean Corpuscular Hemoglobin 26.3 PG (27.0-31.0) L Mean Corpuscular Hemoglobin Concent 32.4 G/DL (32.0-36.0) Red Cell Distribution Width 20.6 % (11.6-14.8) H Platelet Count 208 K/UL (150-450) Mean Platelet Volume 6.8 FL (6.5-10.1) Neutrophils (%) (Auto) 65.0 % (45.0-75.0) Lymphocytes (%) (Auto) 22.1 % (20.0-45.0) Monocytes (%) (Auto) 8.4 % (1.0-10.0) Eosinophils (%) (Auto) 3.8 % (0.0-3.0) H Basophils (%) (Auto) 0.7 % (0.0-2.0) Urine Color Pale yellow Urine Appearance Slightly cloudy Urine pH 6.5 (4.5-8.0) Urine Specific [place] 1.015 (1.005-1.035) Urine Protein 2+ (NEGATIVE) H Urine Glucose (UA) Negative (NEGATIVE) Urine Ketones Negative (NEGATIVE) Urine Blood 2+ (NEGATIVE) H Urine Nitrite Negative (NEGATIVE) Urine Bilirubin Negative (NEGATIVE) Urine Urobilinogen Normal MG/DL (0.0-1.0) Urine Leukocyte Esterase 3+ (NEGATIVE) H Urine RBC 2-4 /HPF (0 - 0) H Urine WBC Tntc /HPF (0 - 0) H Urine Squamous Epithelial Cells None /LPF (NONE/OCC) Urine Bacteria Many /HPF (NONE) H Urine Yeast Many /HPF (NONE) H Sodium Level 137 MMOL/L (136-145) Potassium Level 5.9 MMOL/L (3.5-5.1) H Chloride Level 102 MMOL/L (98-107) Carbon Dioxide Level 27 MMOL/L (21-32) Anion Gap 8 mmol/L (5-15) Blood Urea Nitrogen 67 mg/dL (7-18) H Creatinine 1.3 MG/DL (0.55-1.30) Estimat Glomerular Filtration Rate > 60 mL/min (>60) Glucose Level 135 MG/DL (74-106) H Lactic Acid Level 1.40 mmol/L (0.4-2.0) Calcium Level 10.2 MG/DL (8.5-10.1) H Total Bilirubin 0.1 MG/DL (0.2-1.0) L Aspartate Amino Transf (AST/SGOT) 71 U/L (15-37) H Alanine Aminotransferase (ALT/SGPT) 80 U/L (12-78) H Alkaline Phosphatase 171 U/L (46-116) H Total Protein 9.6 G/DL (6.4-8.2) H Albumin 2.9 G/DL (3.4-5.0) L Globulin 6.7 g/dL Albumin/Globulin Ratio 0.4 (1.0-2.7) L Miscellaneous Test Pending Microbiology Date/Time Source Procedure Growth Status 09/07/19 01:15 Nasal Nares - Final Complete 09/07/19 01:15 Nasal Nares - Final Complete Height (Feet): 5 Height (Inches): 11.00 Weight (Pounds): 140 Medications Current Medications Medications (Trade) Dose Ordered Sig/Kike Route PRN Reason Start Time Stop Time Status Last Admin Dose Admin Acetaminophen (Tylenol) 650 mg Q4H PRN ORAL fever 09/07/19 08:15 10/07/19 08:14 Albuterol/ Ipratropium (Albuterol/ Ipratropium) 3 ml EVERY 4 HOURS PRN HHN Shortness of Breath 09/07/19 08:15 09/12/19 08:14 Alprazolam (Xanax) 0.5 mg Q6H PRN ORAL For Anxiety 09/07/19 08:15 09/14/19 08:14 Amlodipine Besylate (Norvasc) 2.5 mg DAILY ORAL 09/07/19 09:00 10/07/19 08:59 09/07/19 10:18 Cefepime HCl 1 gm/ Dextrose 55 ml @ 110 mls/hr EVERY 12 HOURS IV 09/07/19 09:00 09/14/19 08:59 09/07/19 10:19 Heparin Sodium (Porcine) (Heparin 5000 units/ml) 5,000 units EVERY 12 HOURS SUBQ 09/07/19 09:00 10/22/19 08:59 09/07/19 10:20 Levothyroxine Sodium (Synthroid) 25 mcg DAILY@0630 ORAL 09/07/19 08:30 10/07/19 08:29 09/07/19 10:19 Mirtazapine (Remeron) 7.5 mg BEDTIME ORAL 09/07/19 21:00 12/06/19 20:59 Nitroglycerin (Ntg) 0.4 mg Q5M PRN SL Prn Chest Pain 09/07/19 08:15 10/07/19 08:14 Ondansetron HCl (Zofran) 4 mg Q6H PRN IVP Nausea & Vomiting 09/07/19 08:15 10/07/19 08:14 Polyethylene Glycol (Miralax) 17 gm DAILYPRN PRN ORAL Constipation 09/07/19 08:15 10/07/19 08:14 Promethazine HCl/ Codeine (Phenergan with Codeine) 5 ml Q4H PRN ORAL For Cough 09/07/19 08:15 10/07/19 08:14 Quetiapine Fumarate (SEROqueL) 25 mg Q8HR ORAL 09/07/19 08:15 10/22/19 08:14 Temazepam (Restoril) 15 mg HSPRN PRN ORAL Insomnia 09/07/19 08:15 09/14/19 08:14 Vancomycin HCl (Vanco rx to dose) 1 ea DAILY PRN MISC Per rx protocol 09/07/19 08:15 10/07/19 08:14 Vancomycin HCl 750 mg/Dextrose 275 ml @ 183.333 mls/hr Q24H IVPB 09/08/19 02:00 09/13/19 01:59 Assessment/Plan Problem List: (1) Suspected COVID-19 virus infection ICD Codes: R68.89 - Other general symptoms and signs SNOMED: 627387782 (2) Nosocomial pneumonia ICD Codes: J18.9 - Pneumonia, unspecified organism; Y95 - Nosocomial condition SNOMED: 100784522 (3) Atrial fibrillation ICD Codes: I48.91 - Unspecified atrial fibrillation SNOMED: 16871812 (4) Diabetes mellitus ICD Codes: E11.9 - Type 2 diabetes mellitus without complications SNOMED: 60321236 (5) Hypertension ICD Codes: I10 - Essential (primary) hypertension SNOMED: 77702457 (6) Failure to thrive SNOMED: 97589377 (7) Severe malnutrition ICD Codes: E43 - Unspecified severe protein-calorie malnutrition SNOMED: 15165544 (8) Alzheimer's dementia ICD Codes: G30.9 - Alzheimer's disease, unspecified; F02.80 - Dementia in other diseases classified elsewhere without behavioral disturbance SNOMED: 16296963 (9) History of CVA (cerebrovascular accident) ICD Codes: Z86.73 - Personal history of transient ischemic attack (TIA), and cerebral infarction without residual deficits SNOMED: 550096874 (10) Hypothyroidism ICD Codes: E03.9 - Hypothyroidism, unspecified SNOMED: 71692091 Assessment/Plan: sputum for c/x respiratory treatment check electrolytes iv hydration check K santiago ID to see sliding scale diabetic diet aspiration precaution Vania Hui MD Sep 07, 2019 12:20
--- NOTE | 2019-09-07 12:49 | History & Physical ---
History and Physical History & Physicial Dictated for Int Med-Dr Sun no. [id number]. Xander Bah MD Sep 07, 2019 12:49
[2019-09-07 13:03] LABS: ANION GAP 11 mmol/L (5-15); BLOOD UREA NITROGEN 61 mg/dL (7-18); CALCIUM 9.4 MG/DL (8.5-10.1); CARBON DIOXIDE 25 MMOL/L (21-32); CHLORIDE 109 MMOL/L (98-107); CREATININE 1.5 MG/DL (0.55-1.30); POTASSIUM 5.4 MMOL/L (3.5-5.1); SODIUM 144 MMOL/L (136-145)
--- NOTE | 2019-09-07 13:55 | Consultation ---
Consult Note Consult Note HPI: 84yo gentleman with PMH below presents from [facility] with one day of congestion with difficulty suctioning. Pt nonverbal and cannot provide history but he does sound very congested. ID consulted for pneumonia. ROS: unable to obtain PMH/PSH: DM, HTN, CVA, Dementia, G tube, MDD, psychosis, hypothyroidism, anemia , FHX: noncontributory SHx: NH resident VS: reviewed PE: Gen: NAD. well nourished HEENT: anicteric sclera. no cervical LAD CV: no thrills. S1+S2. regular rhythm. Resp: coarse. rhonchi. no wheezes. equal chest rise. regular rate and rhythm. Abd: Soft. no TTP. nondistended. G tube site c/d/i. Ext: no LE edema Skin: warm. dry. pressure injury in back : angel with sediments Neuro: awake. looks towards me but does not follow commands or answer qusetions. Labs: reviewed Imaging: reviewed Assessment: Afebrile No leukocytosis PNA CXR: Right pleural effusion, also demonstrated on prior 08/09/2019 exam, slightly increased. Hazy right lung parenchymal opacity probably represents a superimposed pleural fluid but infiltrate also possible. QTc 419 DM HTN CVA Dementia Nonverbal G tube Plan: continue cefepime and vanc #1 f/u Bcx f/u sp cx f/u MRSA screen f/u COVID isolation precaution DW RN Thank you for this consult. [facility] will continue to follow the patient with you. Marcelina Matias MD Sep 07, 2019 13:55
[2019-09-07] MEDS ORDERED: Sodium Polystyrene Sulfonate 15gm Powder ORAL SCH (14:15)
--- NOTE | 2019-09-07 16:15 | History and Physical Report ---
DATE OF ADMISSION: 09/07/2019 CHIEF COMPLAINT: The patient is an 84-year-old male, who presents with a chief complaint of cough and congestion. HISTORY OF PRESENT ILLNESS: The patient was admitted to [facility] from 07/18/2019 through 08/10/2019. Please see history and physical and discharge summary dictated at that time. The patient is status post PEG placement on 08/08/2019. The patient is a resident of [facility]. According to staff at [facility], the patient has had increasing cough and congestion over the last day. The patient was transferred to [facility] for evaluation. The patient is admitted with increased cough and congestion to rule out pneumonia. REVIEW OF SYSTEMS: Unable to assess secondary to the patient's mental status. PAST MEDICAL HISTORY: 1. Esophageal mass. 2. Dysphagia, status post PEG placement. 3. Diabetes type 2. 4. Alzheimer's dementia. 5. Cerebrovascular disease, status post cerebrovascular accident. 6. Hypothyroidism. 7. Seizure disorder. 8. Iron deficiency anemia. PAST SURGICAL HISTORY: Significant for PEG placement on 08/08/[address] [facility] [address] Dr. Rosario. CURRENT MEDICATIONS: 1. Xanax 0.5 mg p.o. q.6 h. p.r.n. 2. Amlodipine 2.5 mg per G-tube daily. 3. Folic acid 1 mg per G-tube daily. 4. Prevacid 30 mg per G-tube daily. 5. Levothyroxine 25 mcg per G-tube daily. 6. Mirtazapine 15 mg p.o. nightly. 7. Seroquel 25 mg p.o. q.8 h. p.r.n. 8. Seroquel 25 mg p.o. three times daily routine. ALLERGIES: Penicillin. SOCIAL HISTORY: The patient is single and is a resident of [facility]. The patient denied tobacco or alcohol use. PHYSICAL EXAMINATION: VITAL SIGNS: Temperature 95.5, respirations 16, pulse 68, and blood pressure 146/65. Pulse oximetry 98% on 2 liters of oxygen per nasal cannula. GENERAL: The patient is a thin-appearing male, in no apparent distress. HEENT: Eyes, pupils are equal and responsive to light and accommodation. Extraocular movements are intact. NECK: Supple without lymphadenopathy. CHEST: Lungs are clear to auscultation bilaterally with decreased breath sounds on the right. There are no wheezes appreciated. ABDOMEN: Soft, nontender, and nondistended. Positive bowel sounds. No evidence of hepatosplenomegaly. Currently, no rebound or guarding noted. EXTREMITIES: Negative for clubbing, cyanosis, or edema. RECTAL/GENITAL: Not performed. NEUROLOGIC: Cranial nerves II through XII are grossly intact without focal deficits. LABORATORY STUDIES: WBC 4.9, hemoglobin 10.6, hematocrit 32.6, and platelets 208,000. Sodium 137, potassium 5.9, chloride 102, CO2 27, BUN 67, and creatinine 1.3. Glucose 135. AST elevated at 71, ALT elevated at 80, alkaline phosphatase elevated at 171. Urinalysis showed 2+ blood, 3+ leukocyte esterase with wbc's too numerous to count. ASSESSMENT: This is an 84-year-old male with: 1. Upper respiratory tract infection. 2. Urinary tract infection. 3. Right pleural effusion. 4. Esophageal mass. 5. Dysphagia. 6. Diabetes. 7. Alzheimer's dementia. 8. Cerebrovascular disease. 9. Hypothyroidism. 10. Seizure disorder. 11. Iron deficiency anemia. TREATMENT: 1. Upper respiratory tract infection. Chest x-ray revealed right pleural effusion. A Pulmonary consultation has been obtained with Dr. Vania Hui. The patient underwent thoracentesis during previous hospitalization. We will follow recommendation of Pulmonary. 2. Urinary tract infection. The patient has been started empirically on vancomycin and cefepime. A urine culture is pending. 3. Right pleural effusion. As above, a Pulmonary consultation has been obtained with Dr. Vania Hui. The patient may require thoracentesis during this hospitalization. 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 A Gastroenterology consultation has been obtained with Dr. Darrick Rosario. 5. Dysphagia. The patient is status post PEG placement on 08/08/[address] [facility] by Dr. Darrick Rosario. 6. Diabetes type 2. A NovoLog sliding scale has been instituted. 7. Alzheimer's dementia. 8. Cerebrovascular disease, status post cerebrovascular accident. 9. Hypothyroidism. Continue levothyroxine as above. 10. Seizure disorder. 11. Iron deficiency anemia. Xander Bah M.D. DR: RIZWAN JOB#: [id number] CC:
[2019-09-08] VITALS: BP 126/61
[2019-09-08] MEDS: Vancomycin 750mg/D5W 275ml IVPB SCH ×2 (01:35)
[2019-09-08 04:00] VITALS: BP 141/60
[2019-09-08] MEDS: Levothyroxine 25mcg tab ORAL SCH (06:31)
[2019-09-08 07:20] LABS: BASOPHILS % (AUTO) 0.5 % (0.0-2.0); EOSINOPHILS % (AUTO) 3.5 % (0.0-3.0); HEMATOCRIT 25.8 % (42.0-52.0); HEMOGLOBIN 8.2 G/DL (14.2-18.0); LYMPHOCYTES % (AUTO) 15.2 % (20.0-45.0); MEAN CORPUSCULAR VOLUME 82 FL (80-99); MONOCYTES % (AUTO) 6.1 % (1.0-10.0); NEUTROPHILS % (AUTO) 74.7 % (45.0-75.0); PLATELET COUNT 182 K/UL (150-450); RED BLOOD COUNT 3.15 M/UL (4.70-6.10); WHITE BLOOD COUNT 8.1 K/UL (4.8-10.8)
[2019-09-08 07:49] LABS: ALANINE AMINOTRANSFERASE 81 U/L (12-78); ALBUMIN 2.3 G/DL (3.4-5.0); ALBUMIN/GLOBULIN RATIO 0.4 (1.0-2.7); ALKALINE PHOSPHATASE 173 U/L (46-116); ANION GAP 10 mmol/L (5-15); ASPARTATE AMINO TRANSFERASE 73 U/L (15-37); BILIRUBIN,TOTAL 0.3 MG/DL (0.2-1.0); BLOOD UREA NITROGEN 48 mg/dL (7-18); CALCIUM 9.7 MG/DL (8.5-10.1); CARBON DIOXIDE 24 MMOL/L (21-32); CHLORIDE 107 MMOL/L (98-107); CREATININE 1.3 MG/DL (0.55-1.30); PHOSPHORUS 3.7 MG/DL (2.5-4.9); POTASSIUM 4.6 MMOL/L (3.5-5.1); SODIUM 141 MMOL/L (136-145)
[2019-09-08 08:00] VITALS: BP 140/57
[2019-09-08] MEDS: Heparin 5000 units/ml inj SUBQ SCH ×2 (09:13→20:40)
[2019-09-08] MEDS: Cefepime HCl 1 GM in D5W 55 ML IV SCH ×2 (09:14→20:37)
--- NOTE | 2019-09-08 11:19 | Pulmonology Progress Note ---
Assessment/Plan Problems: (1) Nosocomial pneumonia (2) Squamous cell esophageal cancer (3) Suspected COVID-19 virus infection (4) Atrial fibrillation (5) Diabetes mellitus (6) Hypertension (7) Severe malnutrition (8) Alzheimer's dementia (9) Hypothyroidism (10) Pleural effusion (11) At high risk for aspiration (12) Feeding by G-tube (13) History of CVA (cerebrovascular accident) Assessment/Plan awaiting COVINA swab sputum for c/x respiratory treatment check electrolytes iv hydration check K santiago ID consult appreciated sliding scale diabetic diet aspiration precaution Subjective ROS Limited/Unobtainable: No Constitutional: Reports: no symptoms HEENT: Repors: no symptoms Allergies: Coded Allergies: PENICILLINS (Verified Allergy, Unknown, 10/27/18) tolretas cephalosporins Objective Last 24 Hour Vital Signs Date Time Temp Pulse Resp B/P (MAP) Pulse Ox O2 Delivery O2 Flow Rate FiO2 09/08/19 09:39 69 140/57 09/08/19 09:00 Nasal Cannula 2.0 09/08/19 08:00 69 09/08/19 08:00 2.0 09/08/19 08:00 97.2 69 24 140/57 (84) 94 09/08/19 06:37 69 18 97 Nasal Cannula 2.0 28 09/08/19 04:00 97.5 69 20 141/60 (87) 100 09/08/19 04:00 67 09/08/19 04:00 2.0 09/08/19 00:00 97.5 65 20 126/61 (82) 100 09/08/19 00:00 64 09/07/19 23:38 Nasal Cannula 2.0 09/07/19 20:00 97.0 69 20 133/59 (83) 99 09/07/19 20:00 60 09/07/19 20:00 2.0 09/07/19 16:00 2.0 09/07/19 16:00 97.3 67 20 131/57 (81) 100 09/07/19 16:00 64 09/07/19 12:00 74 09/07/19 12:00 98.2 72 20 102/60 (74) 97 09/07/19 12:00 2.0 Intake and Output 09/07/19 09/08/19 19:00 07:00 Intake Total 20 ml 20 ml Output Total 700 ml 800 ml Balance -680 ml -780 ml Intake Tube Feeding 20 ml 20 ml Output Urine Total 700 ml 800 ml # Bowel Movements 1 General Appearance: cachetic HEENT: normocephalic, atraumatic, PERRL Respiratory/Chest: lungs clear, normal breath sounds, chest wall tender Cardiovascular: regular rhythm Abdomen: normal bowel sounds, soft, non tender Genitourinary: normal external genitalia Neurologic/Psychiatric: senior animator II-XII grossly normal Microbiology Date/Time Source Procedure Growth Status 09/07/19 01:15 Blood Blood Culture - Preliminary NO GROWTH AFTER 24 HOURS Resulted 09/07/19 01:15 Blood Blood Culture - Preliminary NO GROWTH AFTER 24 HOURS Resulted 09/07/19 14:00 Sputum Gram Stain - Final Resulted 09/07/19 14:00 Sputum Sputum Culture Pending Resulted 09/07/19 01:15 Nasal Nares - Final Complete 09/07/19 01:15 Nasal Nares - Final Complete 09/07/19 01:15 Urine,Clean Catch Urine Culture - Preliminary Resulted Laboratory Tests 09/07/19 12:25: Sodium Level 144, Potassium Level 5.4H, Chloride Level 109H, Carbon Dioxide Level 25, Anion Gap 11, Blood Urea Nitrogen 61H, Creatinine 1.5H, Estimat Glomerular Filtration Rate 53.8, Glucose Level 95, Calcium Level 9.4 09/08/19 05:38: Sodium Level 141, Potassium Level 4.6, Chloride Level 107, Carbon Dioxide Level 24, Anion Gap 10, Blood Urea Nitrogen 48H, Creatinine 1.3, Estimat Glomerular Filtration Rate > 60, Glucose Level 91, Calcium Level 9.7, White Blood Count 8.1 #, Red Blood Count 3.15L, Hemoglobin 8.2L, Hematocrit 25.8L, Mean Corpuscular Volume 82, Mean Corpuscular Hemoglobin 25.9L, Mean Corpuscular Hemoglobin Concent 31.6L, Red Cell Distribution Width 21.0H, Platelet Count 182, Mean Platelet Volume 6.5, Neutrophils (%) (Auto) 74.7, Lymphocytes (%) (Auto) 15.2L, Monocytes (%) (Auto) 6.1, Eosinophils (%) (Auto) 3.5H, Basophils (%) (Auto) 0.5 , Erythrocyte Sedimentation Rate 125H, Phosphorus Level 3.7, Magnesium Level 2.5H, Total Bilirubin 0.3, Aspartate Amino Transf (AST/SGOT) 73H, Alanine Aminotransferase (ALT/SGPT) 81H, Alkaline Phosphatase 173H, C-Reactive Protein, Quantitative 15.5H, Total Protein 8.2, Albumin 2.3L, Globulin 5.9, Albumin/ Globulin Ratio 0.4L Current Medications Medications (Trade) Dose Ordered Sig/Kike Route PRN Reason Start Time Stop Time Status Last Admin Dose Admin Acetaminophen (Tylenol) 650 mg Q4H PRN ORAL fever 09/07/19 08:15 10/07/19 08:14 Albuterol/ Ipratropium (Albuterol/ Ipratropium) 3 ml EVERY 4 HOURS PRN HHN Shortness of Breath 09/07/19 08:15 09/12/19 08:14 Alprazolam (Xanax) 0.5 mg Q6H PRN ORAL For Anxiety 09/07/19 08:15 09/14/19 08:14 Amlodipine Besylate (Norvasc) 2.5 mg DAILY ORAL 09/07/19 09:00 10/07/19 08:59 09/08/19 09:39 Cefepime HCl 1 gm/ Dextrose 55 ml @ 110 mls/hr EVERY 12 HOURS IV 09/07/19 09:00 09/14/19 08:59 09/08/19 09:14 Heparin Sodium (Porcine) (Heparin 5000 units/ml) 5,000 units EVERY 12 HOURS SUBQ 09/07/19 09:00 10/22/19 08:59 09/08/19 09:13 Levothyroxine Sodium (Synthroid) 25 mcg DAILY@0630 ORAL 09/07/19 08:30 10/07/19 08:29 09/08/19 06:31 Mirtazapine (Remeron) 7.5 mg BEDTIME ORAL 09/07/19 21:00 12/06/19 20:59 09/07/19 22:08 Nitroglycerin (Ntg) 0.4 mg Q5M PRN SL Prn Chest Pain 09/07/19 08:15 10/07/19 08:14 Ondansetron HCl (Zofran) 4 mg Q6H PRN IVP Nausea & Vomiting 09/07/19 08:15 10/07/19 08:14 Polyethylene Glycol (Miralax) 17 gm DAILYPRN PRN ORAL Constipation 09/07/19 08:15 10/07/19 08:14 Promethazine HCl/ Codeine (Phenergan with Codeine) 5 ml Q4H PRN ORAL For Cough 09/07/19 08:15 10/07/19 08:14 Quetiapine Fumarate (SEROqueL) 25 mg Q8HR ORAL 09/07/19 08:15 10/22/19 08:14 09/08/19 06:00 Temazepam (Restoril) 15 mg HSPRN PRN ORAL Insomnia 09/07/19 08:15 09/14/19 08:14 Vancomycin HCl (Vanco rx to dose) 1 ea DAILY PRN MISC Per rx protocol 09/07/19 08:15 10/07/19 08:14 Vancomycin HCl 750 mg/Dextrose 275 ml @ 183.333 mls/hr Q24H IVPB 09/08/19 02:00 09/13/19 01:59 09/08/19 01:35 Vania Hui MD Sep 08, 2019 11:19
[2019-09-08 12:00] VITALS: BP 138/59
--- NOTE | 2019-09-08 15:31 | Infectious Diseases Prog Note ---
Assessment/Plan Assessment/Plan Afebrile No leukocytosis PNA CXR: Right pleural effusion, also demonstrated on prior 08/09/2019 exam, slightly increased. Hazy right lung parenchymal opacity probably represents a superimposed pleural fluid but infiltrate also possible. QTc 419 DM HTN CVA Dementia Nonverbal G tube Plan: continue cefepime and vanc #2 f/u Bcx f/u sp cx f/u MRSA screen f/u COVID isolation precaution DW RN Thank you for this consult. [facility] will continue to follow the patient with you. Subjective Allergies: Coded Allergies: PENICILLINS (Verified Allergy, Unknown, 10/27/18) tolretas cephalosporins Subjective Afebrile. 2L NC. No leukocytosis nonverbal Objective Vital Signs Last 24 Hour Vital Signs Date Time Temp Pulse Resp B/P (MAP) Pulse Ox O2 Delivery O2 Flow Rate FiO2 09/08/19 12:00 2.0 09/08/19 12:00 81 09/08/19 12:00 97.2 81 22 138/59 (85) 97 09/08/19 09:39 69 140/57 09/08/19 09:00 Nasal Cannula 2.0 09/08/19 08:00 69 09/08/19 08:00 2.0 09/08/19 08:00 97.2 69 24 140/57 (84) 94 09/08/19 06:37 69 18 97 Nasal Cannula 2.0 28 09/08/19 04:00 97.5 69 20 141/60 (87) 100 09/08/19 04:00 67 09/08/19 04:00 2.0 09/08/19 00:00 97.5 65 20 126/61 (82) 100 09/08/19 00:00 64 09/07/19 23:38 Nasal Cannula 2.0 09/07/19 20:00 97.0 69 20 133/59 (83) 99 09/07/19 20:00 60 09/07/19 20:00 2.0 09/07/19 16:00 2.0 09/07/19 16:00 97.3 67 20 131/57 (81) 100 09/07/19 16:00 64 Height (Feet): 5 Height (Inches): 11.00 Weight (Pounds): 162 Objective Gen: NAD. well nourished Resp: coarse. rhonchi. no wheezes. equal chest rise. regular rate and rhythm. Abd: Soft. no TTP. nondistended. G tube site c/d/i. Neuro: awake. looks towards me but does not follow commands or answer qusetions. Microbiology Date/Time Source Procedure Growth Status 09/07/19 01:15 Blood Blood Culture - Preliminary NO GROWTH AFTER 24 HOURS Resulted 09/07/19 01:15 Blood Blood Culture - Preliminary NO GROWTH AFTER 24 HOURS Resulted 09/07/19 14:00 Sputum Gram Stain - Final Resulted 09/07/19 14:00 Sputum Sputum Culture Pending Resulted 09/07/19 01:15 Nasal Nares - Final Complete 09/07/19 01:15 Nasal Nares - Final Complete 09/07/19 01:15 Urine,Clean Catch Urine Culture - Preliminary Resulted Laboratory Tests Test 09/08/19 05:38 White Blood Count 8.1 K/UL (4.8-10.8) # Red Blood Count 3.15 M/UL (4.70-6.10) L Hemoglobin 8.2 G/DL (14.2-18.0) L Hematocrit 25.8 % (42.0-52.0) L Mean Corpuscular Volume 82 FL (80-99) Mean Corpuscular Hemoglobin 25.9 PG (27.0-31.0) L Mean Corpuscular Hemoglobin Concent 31.6 G/DL (32.0-36.0) L Red Cell Distribution Width 21.0 % (11.6-14.8) H Platelet Count 182 K/UL (150-450) Mean Platelet Volume 6.5 FL (6.5-10.1) Neutrophils (%) (Auto) 74.7 % (45.0-75.0) Lymphocytes (%) (Auto) 15.2 % (20.0-45.0) L Monocytes (%) (Auto) 6.1 % (1.0-10.0) Eosinophils (%) (Auto) 3.5 % (0.0-3.0) H Basophils (%) (Auto) 0.5 % (0.0-2.0) Erythrocyte Sedimentation Rate 125 MM/HR (0-20) H Sodium Level 141 MMOL/L (136-145) Potassium Level 4.6 MMOL/L (3.5-5.1) Chloride Level 107 MMOL/L (98-107) Carbon Dioxide Level 24 MMOL/L (21-32) Anion Gap 10 mmol/L (5-15) Blood Urea Nitrogen 48 mg/dL (7-18) H Creatinine 1.3 MG/DL (0.55-1.30) Estimat Glomerular Filtration Rate > 60 mL/min (>60) Glucose Level 91 MG/DL (74-106) Calcium Level 9.7 MG/DL (8.5-10.1) Phosphorus Level 3.7 MG/DL (2.5-4.9) Magnesium Level 2.5 MG/DL (1.8-2.4) H Total Bilirubin 0.3 MG/DL (0.2-1.0) Aspartate Amino Transf (AST/SGOT) 73 U/L (15-37) H Alanine Aminotransferase (ALT/SGPT) 81 U/L (12-78) H Alkaline Phosphatase 173 U/L (46-116) H C-Reactive Protein, Quantitative 15.5 mg/dL (0.00-0.90) H Total Protein 8.2 G/DL (6.4-8.2) Albumin 2.3 G/DL (3.4-5.0) L Globulin 5.9 g/dL Albumin/Globulin Ratio 0.4 (1.0-2.7) L Current Medications Medications (Trade) Dose Ordered Sig/Kike Route PRN Reason Start Time Stop Time Status Last Admin Dose Admin Acetaminophen (Tylenol) 650 mg Q4H PRN ORAL fever 09/07/19 08:15 10/07/19 08:14 Albuterol/ Ipratropium (Albuterol/ Ipratropium) 3 ml EVERY 4 HOURS PRN HHN Shortness of Breath 09/07/19 08:15 09/12/19 08:14 Alprazolam (Xanax) 0.5 mg Q6H PRN ORAL For Anxiety 09/07/19 08:15 09/14/19 08:14 Amlodipine Besylate (Norvasc) 2.5 mg DAILY ORAL 09/07/19 09:00 10/07/19 08:59 09/08/19 09:39 Cefepime HCl 1 gm/ Dextrose 55 ml @ 110 mls/hr EVERY 12 HOURS IV 09/07/19 09:00 09/14/19 08:59 09/08/19 09:14 Heparin Sodium (Porcine) (Heparin 5000 units/ml) 5,000 units EVERY 12 HOURS SUBQ 09/07/19 09:00 10/22/19 08:59 09/08/19 09:13 Levothyroxine Sodium (Synthroid) 25 mcg DAILY@0630 ORAL 09/07/19 08:30 10/07/19 08:29 09/08/19 06:31 Mirtazapine (Remeron) 7.5 mg BEDTIME ORAL 09/07/19 21:00 12/06/19 20:59 09/07/19 22:08 Nitroglycerin (Ntg) 0.4 mg Q5M PRN SL Prn Chest Pain 09/07/19 08:15 10/07/19 08:14 Ondansetron HCl (Zofran) 4 mg Q6H PRN IVP Nausea & Vomiting 09/07/19 08:15 10/07/19 08:14 Polyethylene Glycol (Miralax) 17 gm DAILYPRN PRN ORAL Constipation 09/07/19 08:15 10/07/19 08:14 Promethazine HCl/ Codeine (Phenergan with Codeine) 5 ml Q4H PRN ORAL For Cough 09/07/19 08:15 10/07/19 08:14 Quetiapine Fumarate (SEROqueL) 25 mg Q8HR ORAL 09/07/19 08:15 10/22/19 08:14 09/08/19 13:24 Temazepam (Restoril) 15 mg HSPRN PRN ORAL Insomnia 09/07/19 08:15 09/14/19 08:14 Vancomycin HCl (Vanco rx to dose) 1 ea DAILY PRN MISC Per rx protocol 09/07/19 08:15 10/07/19 08:14 Vancomycin HCl 750 mg/Dextrose 275 ml @ 183.333 mls/hr Q24H IVPB 09/08/19 02:00 09/13/19 01:59 09/08/19 01:35 Marcelina Matias MD Sep 08, 2019 15:31
[2019-09-08 16:00] VITALS: BP 131/55
--- NOTE | 2019-09-08 17:37 | Internal Med Progress Note ---
Subjective Date of Service: Sep 08, 2019 Physician Name NiurkaXander Attending Physician Lamont Hayes MD Current Medications Medications (Trade) Dose Ordered Sig/Kike Route PRN Reason Start Time Stop Time Status Last Admin Dose Admin Acetaminophen (Tylenol) 650 mg Q4H PRN ORAL fever 09/07/19 08:15 10/07/19 08:14 Albuterol/ Ipratropium (Albuterol/ Ipratropium) 3 ml EVERY 4 HOURS PRN HHN Shortness of Breath 09/07/19 08:15 09/12/19 08:14 Alprazolam (Xanax) 0.5 mg Q6H PRN ORAL For Anxiety 09/07/19 08:15 09/14/19 08:14 Amlodipine Besylate (Norvasc) 2.5 mg DAILY ORAL 09/07/19 09:00 10/07/19 08:59 09/08/19 09:39 Cefepime HCl 1 gm/ Dextrose 55 ml @ 110 mls/hr EVERY 12 HOURS IV 09/07/19 09:00 09/14/19 08:59 09/08/19 09:14 Heparin Sodium (Porcine) (Heparin 5000 units/ml) 5,000 units EVERY 12 HOURS SUBQ 09/07/19 09:00 10/22/19 08:59 09/08/19 09:13 Levothyroxine Sodium (Synthroid) 25 mcg DAILY@0630 ORAL 09/07/19 08:30 10/07/19 08:29 09/08/19 06:31 Mirtazapine (Remeron) 7.5 mg BEDTIME ORAL 09/07/19 21:00 12/06/19 20:59 09/07/19 22:08 Nitroglycerin (Ntg) 0.4 mg Q5M PRN SL Prn Chest Pain 09/07/19 08:15 10/07/19 08:14 Ondansetron HCl (Zofran) 4 mg Q6H PRN IVP Nausea & Vomiting 09/07/19 08:15 10/07/19 08:14 Polyethylene Glycol (Miralax) 17 gm DAILYPRN PRN ORAL Constipation 09/07/19 08:15 10/07/19 08:14 Promethazine HCl/ Codeine (Phenergan with Codeine) 5 ml Q4H PRN ORAL For Cough 09/07/19 08:15 10/07/19 08:14 Quetiapine Fumarate (SEROqueL) 25 mg Q8HR ORAL 09/07/19 08:15 10/22/19 08:14 09/08/19 13:24 Temazepam (Restoril) 15 mg HSPRN PRN ORAL Insomnia 09/07/19 08:15 09/14/19 08:14 Vancomycin HCl (Vanco rx to dose) 1 ea DAILY PRN MISC Per rx protocol 09/07/19 08:15 10/07/19 08:14 Vancomycin HCl 750 mg/Dextrose 275 ml @ 183.333 mls/hr Q24H IVPB 09/08/19 02:00 09/13/19 01:59 09/08/19 01:35 Allergies: Coded Allergies: PENICILLINS (Verified Allergy, Unknown, 10/27/18) tolretas cephalosporins ROS Limited/Unobtainable: No Constitutional: Reports: no symptoms HEENT: Reports: no symptoms Cardiovascular: Reports: no symptoms Respiratory: Reports: no symptoms Gastrointestinal/Abdominal: Reports: no symptoms Genitourinary: Reports: no symptoms Neurologic/Psychiatric: Reports: no symptoms Subjective 84 YO M admitted with cough and congestion. Now right pleural effusion and possible pneumonia. Cover for Int Ravi-Dr Hayes Objective Last Vital Signs Date Time Temp Pulse Resp B/P (MAP) Pulse Ox O2 Delivery O2 Flow Rate FiO2 09/08/19 16:00 2.0 09/08/19 16:00 97.6 67 24 131/55 (80) 95 09/08/19 14:00 Nasal Cannula 09/08/19 06:37 28 Laboratory Tests Test 09/08/19 05:38 White Blood Count 8.1 K/UL (4.8-10.8) # Red Blood Count 3.15 M/UL (4.70-6.10) L Hemoglobin 8.2 G/DL (14.2-18.0) L Hematocrit 25.8 % (42.0-52.0) L Mean Corpuscular Volume 82 FL (80-99) Mean Corpuscular Hemoglobin 25.9 PG (27.0-31.0) L Mean Corpuscular Hemoglobin Concent 31.6 G/DL (32.0-36.0) L Red Cell Distribution Width 21.0 % (11.6-14.8) H Platelet Count 182 K/UL (150-450) Mean Platelet Volume 6.5 FL (6.5-10.1) Neutrophils (%) (Auto) 74.7 % (45.0-75.0) Lymphocytes (%) (Auto) 15.2 % (20.0-45.0) L Monocytes (%) (Auto) 6.1 % (1.0-10.0) Eosinophils (%) (Auto) 3.5 % (0.0-3.0) H Basophils (%) (Auto) 0.5 % (0.0-2.0) Erythrocyte Sedimentation Rate 125 MM/HR (0-20) H Sodium Level 141 MMOL/L (136-145) Potassium Level 4.6 MMOL/L (3.5-5.1) Chloride Level 107 MMOL/L (98-107) Carbon Dioxide Level 24 MMOL/L (21-32) Anion Gap 10 mmol/L (5-15) Blood Urea Nitrogen 48 mg/dL (7-18) H Creatinine 1.3 MG/DL (0.55-1.30) Estimat Glomerular Filtration Rate > 60 mL/min (>60) Glucose Level 91 MG/DL (74-106) Calcium Level 9.7 MG/DL (8.5-10.1) Phosphorus Level 3.7 MG/DL (2.5-4.9) Magnesium Level 2.5 MG/DL (1.8-2.4) H Total Bilirubin 0.3 MG/DL (0.2-1.0) Aspartate Amino Transf (AST/SGOT) 73 U/L (15-37) H Alanine Aminotransferase (ALT/SGPT) 81 U/L (12-78) H Alkaline Phosphatase 173 U/L (46-116) H C-Reactive Protein, Quantitative 15.5 mg/dL (0.00-0.90) H Total Protein 8.2 G/DL (6.4-8.2) Albumin 2.3 G/DL (3.4-5.0) L Globulin 5.9 g/dL Albumin/Globulin Ratio 0.4 (1.0-2.7) L Microbiology Date/Time Source Procedure Growth Status 09/07/19 01:15 Blood Blood Culture - Preliminary NO GROWTH AFTER 24 HOURS Resulted 09/07/19 01:15 Blood Blood Culture - Preliminary NO GROWTH AFTER 24 HOURS Resulted 4/1/20 14:00 Sputum Gram Stain - Final Resulted 09/07/19 14:00 Sputum Sputum Culture Pending Resulted 09/07/19 01:15 Nasal Nares - Final Complete 09/07/19 01:15 Nasal Nares - Final Complete 09/07/19 01:15 Urine,Clean Catch Urine Culture - Preliminary Resulted Intake and Output 09/07/19 09/08/19 19:00 07:00 Intake Total 20 ml 20 ml Output Total 700 ml 800 ml Balance -680 ml -780 ml Intake Tube Feeding 20 ml 20 ml Output Urine Total 700 ml 800 ml # Bowel Movements 1 Objective PHYSICAL EXAMINATION: GENERAL: The patient is a thin-appearing male, in no apparent distress. HEENT: Eyes, pupils are equal and responsive to light and accommodation. Extraocular movements are intact. NECK: Supple without lymphadenopathy. CHEST: Lungs are clear to auscultation bilaterally with decreased breath sounds on the right. There are no wheezes appreciated. ABDOMEN: Soft, nontender, and nondistended. Positive bowel sounds. No evidence of hepatosplenomegaly. Currently, no rebound or guarding noted. EXTREMITIES: Negative for clubbing, cyanosis, or edema. RECTAL/GENITAL: Not performed. NEUROLOGIC: Cranial nerves II through XII are grossly intact without focal deficits. Assessment/Plan Assessment/Plan ASSESSMENT: This is an 84-year-old male with: 1. Possible right pneumonia. 2. Urinary tract infection. 3. Right pleural effusion. 4. Esophageal mass. 5. Dysphagia. 6. Diabetes. 7. Alzheimer's dementia. 8. Cerebrovascular disease. 9. Hypothyroidism. 10. Seizure disorder. 11. Iron deficiency anemia. TREATMENT: 1. Possible Pneumonia. Chest x-ray revealed right pleural effusion and possible pneumonia. Influenza negative. A Pulmonary consultation has been obtained with Dr. Vania Hui. The patient underwent thoracentesis during previous hospitalization. We will follow recommendation of Pulmonary. Continue vanco and cefepime per ID=Dr Matias 2. Urinary tract infection. The patient has been started empirically on vancomycin and cefepime. A urine culture is pending. 3. Right pleural effusion. As above, a Pulmonary consultation has been obtained with Dr. Vania Hui. The patient may require thoracentesis during this hospitalization. 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 A Gastroenterology consultation has been obtained with Dr. Darrick Rosario. 5. Dysphagia. The patient is status post PEG placement on 08/08/2019 [address] [facility] by Dr. Darrick Rosario. 6. Diabetes type 2. A NovoLog sliding scale has been instituted. 7. Alzheimer's dementia. 8. Cerebrovascular disease, status post cerebrovascular accident. 9. Hypothyroidism. Continue levothyroxine as above. 10. Seizure disorder. 11. Iron deficiency anemia. Xander Bah MD Sep 08, 2019 17:37
[2019-09-08 20:00] VITALS: BP 119/50
[2019-09-09] VITALS (45 sets, daily range): BP systolic 51–136; BP diastolic 30–78
[2019-09-09] MEDS ORDERED: Sodium Bicarbonate 50ml Carp ONE (01:20)
[2019-09-09] MEDS ORDERED: Magnesium Sulfate 2ml Inj ONE (01:20)
[2019-09-09] MEDS ORDERED: Etomidate 40mg/20ml Inj IV ONE (01:20)
[2019-09-09] MEDS ORDERED: Atropine Inj 1mg/10ml Syr ONE (01:20)
--- NOTE | 2019-09-09 02:54 | Diagnostic Imaging Report ---
Indication: Dyspnea Comparison: 09/07/2019 A single view chest radiograph was obtained. Findings: There is infiltrate suspected in the right perihilar region obscuring the right hilum. There is a hazy opacity that may partially be accounted for by pleural fluid on the right. Reticular densities are present on the left in the perihilar aspect of the lung. Endotracheal tube is in good position just above the anselmo. Heart size is normal. IMPRESSION: Suspected perihilar airspace disease in the right lung suspicious for pneumonia. Reticular nodular infiltrate in the left lung noted also. Right pleural effusion suspected. Endotracheal tube in good position
--- NOTE | 2019-09-09 03:16 | Emergency Room Report ---
History of Present Illness General Chief Complaint: Upper Respiratory Illness Source: Medical Record Present Illness HPI This an elderly gentleman was admitted to the hospital for pneumonia, CHF, UTI. I responded to a CODE BLUE. Per nursing staff, patient had bradycardia and desaturation. He has copious amount of purulent patient is mouth. On my arrival, patient is being bagged. He already received 1 mg of epinephrine. He had a pulse. I proceeded to intubate the patient. Heart intubation there was again copious amount of purulent secretion in his mouth. I suctioned that out. I intubated the patient after giving him succinylcholine and etomidate. Patient intubated without any difficulty. I placed a 7.5 endotracheal tube at 20 cm at the lip. There is good breath sound bilaterally. There is station in the tube. There is good CO2 color change. Patient was placed on the vent and transferred to the ICU. Please see code sheet for full information. Allergies: Coded Allergies: PENICILLINS (Verified Allergy, Unknown, 10/27/18) tolretas cephalosporins COVID-19 Screening Contact w/high risk pt: No Recent Travel to affected area: No Experienced COVID-19 symptoms?: Yes COVID-19 symptoms experienced: Shortness of Breath, Cough Nursing Documentation-[facility] Past Medical History Deferred: Pt Cognitively Impaired Hx Cardiac Problems: Yes Hx Hypertension: Yes Hx COPD: Yes - RESP FAILURE Hx Diabetes: Yes Hx Cancer: No Hx Gastrointestinal Problems: Yes - G TUBE History Of Psychiatric Problem: Yes - DEPRESSIVE Hx Neurological Problems: Yes Hx Cerebrovascular Accident: Yes Hx Dementia: Yes Physical Exam Vital Signs Date Time Temp Pulse Resp B/P (MAP) Pulse Ox O2 Delivery O2 Flow Rate FiO2 09/07/19 00:17 103 18 179/80 (113) 100 Nasal Cannula 4.0 09/07/19 00:30 92.3 09/08/19 06:37 28 Procedures CPR/Code Blue CPR/Code Blue Narrative See code sheet for medication and time given. Intubation Intubation : Consent: Emergent Intubation Method: orotracheal Tube Size (cm): 7.5 Medications: Etomidate, Succinylcholine Breath Sounds after Intubation: equal Intubation Complications: no complications Post Intubation Xray: Yes Progress/Xray Impression: Tracheal tube good position. Large right lower lobe infiltrate Attempts: One Patient Tolerated: Well Complications: None Medical Decision Making Diagnostic Impression: Primary Impression: Pleural effusion Additional Impressions: UTI (urinary tract infection) Sepsis Nosocomial pneumonia ER Course This patient had respiratory failure secondary to pneumonia. Intubated for airway protection. Chest X-Ray Diagnostic Results Chest X-Ray Diagnostic Results : Chest X-Ray Ordered: Yes # of Views/Limited/Complete: 1 View Indication: Shortness of Breath EP Interpretation: Yes Interpretation: no pneumothorax, other - Right lower lobe infiltrate endotracheal tube in good position. Impression: Other - Status post intubation. Right lower lobe worsening infiltrates Electronically Signed by: Nii Arroyo MD Last Vital Signs Date Time Temp Pulse Resp B/P (MAP) Pulse Ox O2 Delivery O2 Flow Rate FiO2 09/09/19 02:15 76 14 100 09/09/19 00:00 97.1 134/58 (83) 99 09/08/19 21:00 Nasal Cannula 2.0 Status: improved Disposition: ADMITTED INPATIENT Condition: Critical Referrals: Vania Hui MD (PCP) Nii Arroyo MD Sep 09, 2019 03:16
[2019-09-09] MEDS: Vancomycin 750mg/D5W 275ml IVPB SCH ×2 (03:35)
[2019-09-09] MEDS ORDERED: ALPRAZolam 0.5mg tab ORAL PRN (04:30)
[2019-09-09] MEDS ORDERED: Albuterol/Ipratropium 3ml neb HHN PRN (04:30)
[2019-09-09] MEDS ORDERED: Miralax 17gm pkt ORAL PRN (04:30)
[2019-09-09] MEDS ORDERED: Nitroglycerin Subl 0.4mg tab SL PRN (04:30)
[2019-09-09] MEDS ORDERED: Promethazine/Codeine 5ml UD ORAL PRN (04:30)
[2019-09-09] MEDS: Levothyroxine 25mcg tab ORAL SCH (06:52)
[2019-09-09 07:37] LABS: BASOPHILS % (AUTO) 0.4 % (0.0-2.0); HEMATOCRIT 26.7 % (42.0-52.0); HEMOGLOBIN 8.3 G/DL (14.2-18.0); LYMPHOCYTES % (AUTO) 11.2 % (20.0-45.0); MEAN CORPUSCULAR VOLUME 83 FL (80-99); NEUTROPHILS % (AUTO) 79.5 % (45.0-75.0); PLATELET COUNT 156 K/UL (150-450); RED BLOOD COUNT 3.21 M/UL (4.70-6.10); RED CELL DISTRIBUTION WIDTH 21.6 % (11.6-14.8); WHITE BLOOD COUNT 8.3 K/UL (4.8-10.8)
[2019-09-09 07:56] LABS: ANION GAP 7 mmol/L (5-15); BLOOD UREA NITROGEN 53 mg/dL (7-18); CALCIUM 9.5 MG/DL (8.5-10.1); CARBON DIOXIDE 27 MMOL/L (21-32); CHLORIDE 108 MMOL/L (98-107); CREATININE 1.5 MG/DL (0.55-1.30); SODIUM 142 MMOL/L (136-145)
[2019-09-09] MEDS ORDERED: Cefepime HCl 1 GM in D5W 55 ML IV SCH (09:00)
[2019-09-09] MEDS: Heparin 5000 units/ml inj SUBQ SCH ×2 (09:27→20:52)
--- NOTE | 2019-09-09 12:06 | Pulmonolgy Critical Care Note ---
Critical Care - Asmt/Plan Problems: (1) Acute respiratory failure (2) Suspected COVID-19 virus infection (3) Nosocomial pneumonia (4) Sepsis (5) Diabetes mellitus (6) At high risk for aspiration (7) Severe malnutrition (8) Feeding by G-tube (9) Squamous cell esophageal cancer (10) Alzheimer's dementia (11) History of CVA (cerebrovascular accident) Respiratory: monitor respiratory rate, adjust FIO2, CXR Cardiac: continue to monitor HR/BP Renal: F/U I&O, keep IV fluid, check electrolytes Infectious Disease: check cultures, continue antibiotics Gastrointestinal: abdominal imaging Endocrine: monitor blood sugar, continue sliding scale insulin Hematologic: monitor H/H, transfuse if hgb<8.5 Neurologic: PRN Ativan, keep patient comfortable Prophylaxis: Protonix, Heparin Time Spent (Minutes): 40 Notes Reviewed: grape picker, cardio Discussed with: nurses, consultants, case supervisorclinical trials manager - Objective Last 24 Hour Vital Signs Date Time Temp Pulse Resp B/P (MAP) Pulse Ox O2 Delivery O2 Flow Rate FiO2 09/09/19 11:01 63 14 60 09/09/19 09:30 75 18 60 09/09/19 09:24 82 135/61 09/09/19 07:00 97.8 66 22 109/49 (69) 100 09/09/19 07:00 63 19 60 09/09/19 06:09 63 15 100 09/09/19 06:00 66 19 96/54 (68) 100 09/09/19 05:00 66 19 111/55 (73) 100 09/09/19 04:45 68 16 129/48 (75) 100 09/09/19 04:30 63 14 107/41 (63) 09/09/19 04:15 68 16 100/52 (68) 100 09/09/19 04:00 63 16 112/64 (80) 100 09/09/19 04:00 63 09/09/19 03:45 63 14 91/48 (62) 100 09/09/19 03:30 70 20 136/48 (77) 100 09/09/19 03:26 67 15 100 09/09/19 03:15 63 17 129/47 (74) 100 09/09/19 03:00 63 14 83/42 (56) 100 09/09/19 02:45 Mechanical Ventilator 09/09/19 02:45 65 16 80/41 (54) 100 09/09/19 02:41 64 14 74/39 (51) 100 09/09/19 02:32 67 14 69/41 (50) 100 09/09/19 02:30 67 15 62/41 (48) 09/09/19 02:28 67 15 65/37 (46) 09/09/19 02:15 76 15 98/52 (67) 09/09/19 02:15 76 14 100 09/09/19 02:09 74 14 83/50 (61) 09/09/19 02:04 73 15 79/35 (50) 100 09/09/19 02:02 71 15 51/38 (42) 100 09/09/19 02:00 96.7 73 16 54/34 (41) 09/09/19 00:00 68 09/09/19 00:00 97.1 72 24 134/58 (83) 99 09/08/19 21:00 Nasal Cannula 2.0 09/08/19 20:00 97.5 71 22 119/50 (73) 98 09/08/19 19:37 75 18 97 Nasal Cannula 2.0 28 09/08/19 16:00 2.0 09/08/19 16:00 65 09/08/19 16:00 97.6 67 24 131/55 (80) 95 09/08/19 14:00 Nasal Cannula 2.0 Status: sedated Condition: critical HEENT: atraumatic Neck: full ROM Heart: HR/BP stable Abdomen: soft, active bowel sounds, feeding tube Extremities: no C/C/E Micro: Microbiology Date/Time Source Procedure Growth Status 09/07/19 01:15 Blood Blood Culture - Preliminary NO GROWTH AFTER 48 HOURS Resulted 09/07/19 01:15 Blood Blood Culture - Preliminary NO GROWTH AFTER 48 HOURS Resulted 09/07/19 14:00 Sputum Gram Stain - Final Resulted 09/07/19 14:00 Sputum Culture - Preliminary Gram Negative Bacillus 1 Resulted 09/07/19 01:30 Nasopharynx Coronavirus COVID-19 PCR (KEEGAN) - Final Complete 09/07/19 01:15 Nasal Nares MRSA Culture - Final Staphylococcus Aureus - Mrsa Complete 09/07/19 01:15 Nasal Nares - Final Complete 09/07/19 01:15 Nasal Nares - Final Complete 09/07/19 01:15 Urine,Clean Catch Urine Culture - Preliminary Yeast Species Resulted 09/07/19 01:15 Rectum - Final NO CARBAPENEM-RESISTANT ENTEROBACTERI... Complete 09/07/19 01:15 Rectum VRE Culture - Final Enterococcus Faecalis - Vre Enterococcus Faecium - Vre Complete Critical Care - Subjective ROS Limited/Unobtainable: Yes Condition: critical EKG Rhythm: Sinus Rhythm FI02: 60 Vent Support Breath Rate: 14 Vent Support Mode: AC Vent Tidal Volume: 550 Sputum Amount: Small PEEP: 5.0 PIP: 25 Tube Feeding Amount: 60 I&O: Intake and Output 09/08/19 09/09/19 19:00 07:00 Intake Total 60 ml 275 ml Output Total 900 ml 550 ml Balance -840 ml -275 ml Intake IV Total 275 ml Tube Feeding 60 ml Output Urine Total 900 ml 550 ml Labs: Laboratory Tests Test 09/09/19 07:06 White Blood Count 8.3 K/UL (4.8-10.8) Red Blood Count 3.21 M/UL (4.70-6.10) L Hemoglobin 8.3 G/DL (14.2-18.0) L Hematocrit 26.7 % (42.0-52.0) L Mean Corpuscular Volume 83 FL (80-99) Mean Corpuscular Hemoglobin 25.8 PG (27.0-31.0) L Mean Corpuscular Hemoglobin Concent 31.0 G/DL (32.0-36.0) L Red Cell Distribution Width 21.6 % (11.6-14.8) H Platelet Count 156 K/UL (150-450) Mean Platelet Volume 6.5 FL (6.5-10.1) Neutrophils (%) (Auto) 79.5 % (45.0-75.0) H Lymphocytes (%) (Auto) 11.2 % (20.0-45.0) L Monocytes (%) (Auto) 7.0 % (1.0-10.0) Eosinophils (%) (Auto) 2.0 % (0.0-3.0) Basophils (%) (Auto) 0.4 % (0.0-2.0) Sodium Level 142 MMOL/L (136-145) Potassium Level 4.0 MMOL/L (3.5-5.1) Chloride Level 108 MMOL/L (98-107) H Carbon Dioxide Level 27 MMOL/L (21-32) Anion Gap 7 mmol/L (5-15) Blood Urea Nitrogen 53 mg/dL (7-18) H Creatinine 1.5 MG/DL (0.55-1.30) H Estimat Glomerular Filtration Rate 53.8 mL/min (>60) Glucose Level 83 MG/DL (74-106) Calcium Level 9.5 MG/DL (8.5-10.1) Carcinoembryonic Antigen Pending Vania Hui MD Sep 09, 2019 12:06
--- NOTE | 2019-09-09 19:46 | Consultation ---
History of Present Illness General Date patient seen: Sep 09, 2019 Chief Complaint: Upper Respiratory Illness Present Illness HPI 84 year old male with multiple medical comorbidities [facility] for congestion and uri. labs abnormal, lethargic, admitted for care and management. on admission ill appearing. noted to have abnormal labs, decubitus, cxr noted. admitted for care and management. surgery called to evaluate and assist with care. declining. intubated. transferred to ICU Allergies: Coded Allergies: PENICILLINS (Verified Allergy, Unknown, 10/27/18) tolretas cephalosporins Medication History Scheduled Amlodipine Besylate (Norvasc), 2.5 MG ORAL DAILY, (Reported) Folic Acid* (Folic Acid*), 2 MG ORAL DAILY, (Reported) Lansoprazole* (Prevacid*), 30 MG ORAL DAILY, (Reported) Levothyroxine Sodium* (Synthroid*), 25 MCG ORAL DAILY@0630 Mirtazapine* (Mirtazapine*), 7.5 MG ORAL BEDTIME Mirtazapine* (Remeron*), 15 MG ORAL BEDTIME, (Reported) Quetiapine Fumarate* (Seroquel*), 25 MG ORAL THREE TIMES A DAY, (Reported) Scheduled PRN Acetaminophen* (Acetaminophen 325MG Tablet*), 650 MG ORAL Q6H PRN for For Pain Level <=5, (Reported) Alprazolam* (Xanax*), 0.5 MG ORAL EVERY 6 HOURS PRN for For Anxiety, (Reported) Quetiapine Fumarate* (Seroquel*), 25 MG ORAL Q8H PRN Patient History Limited by: medical condition History Provided By: Medical Record, PMD Healthcare decision maker Resuscitation status Full Code Advanced Directive on File Past Medical/Surgical History Past Medical/Surgical History: (1) UTI (urinary tract infection) (2) Acute respiratory failure (3) Sepsis (4) Severe anemia (5) Nosocomial pneumonia (6) Atrial fibrillation (7) Acute metabolic encephalopathy (8) History of CVA (cerebrovascular accident) (9) Diabetes mellitus (10) Hypothyroidism (11) Alzheimer's dementia (12) PVC (premature ventricular contraction) (13) Hypertension (14) Squamous cell esophageal cancer (15) Dehydration (16) Feeding by G-tube (17) Anemia (18) Severe malnutrition (19) Encounter for PEG (percutaneous endoscopic gastrostomy) (20) At high risk for aspiration (21) Pleural effusion (22) Suspected COVID-19 virus infection Review of Systems All Other Systems: negative except mentioned in HPI ROS Narrative difficult to obtain given medical condition Physical Exam General Appearance: lethargic, mild distress Lines, tubes and drains: peripheral HEENT: normocephalic, mucous membranes moist Neck: normal inspection Respiratory/Chest: decreased breath sounds, other Cardiovascular/Chest: regular rhythm, tachycardia Abdomen: soft, no organomegaly, no mass, other Extremities: normal inspection, no calf tenderness Skin Exam: warm/dry Neurologic: unresponsiveness Last 24 Hour Vital Signs Date Time Temp Pulse Resp B/P (MAP) Pulse Ox O2 Delivery O2 Flow Rate FiO2 09/09/19 19:02 67 14 100/35 (56) 09/09/19 19:00 69 14 84/33 (50) 100 09/09/19 18:48 65 14 60 09/09/19 18:00 60 14 85/37 (53) 100 09/09/19 17:00 94 22 121/68 (85) 09/09/19 16:43 68 14 60 09/09/19 16:00 99.4 67 14 100/36 (57) 100 09/09/19 16:00 Mechanical Ventilator 09/09/19 15:00 68 14 96/41 (59) 09/09/19 14:30 66 14 60 09/09/19 14:00 68 14 95/42 (59) 100 09/09/19 13:00 74 14 60 09/09/19 13:00 65 14 131/49 (76) 09/09/19 12:00 69 09/09/19 12:00 Mechanical Ventilator 09/09/19 12:00 98.4 66 14 83/36 (52) 100 09/09/19 11:30 69 14 102/46 (64) 100 09/09/19 11:01 63 14 60 09/09/19 11:00 66 14 94/39 (57) 09/09/19 10:30 63 14 61/30 (40) 09/09/19 10:00 69 14 73/44 (54) 97 09/09/19 09:30 75 18 60 09/09/19 09:30 74 22 94/67 (76) 100 09/09/19 09:24 82 135/61 09/09/19 09:00 97.8 71 20 113/44 (67) 09/09/19 08:00 Mechanical Ventilator 09/09/19 08:00 65 09/09/19 08:00 65 20 118/78 (91) 96 09/09/19 07:00 97.8 66 22 109/49 (69) 100 09/09/19 07:00 63 19 60 09/09/19 06:09 63 15 100 09/09/19 06:00 66 19 96/54 (68) 100 09/09/19 05:00 66 19 111/55 (73) 100 09/09/19 04:45 68 16 129/48 (75) 100 09/09/19 04:30 63 14 107/41 (63) 09/09/19 04:15 68 16 100/52 (68) 100 09/09/19 04:00 63 16 112/64 (80) 100 09/09/19 04:00 63 09/09/19 03:45 63 14 91/48 (62) 100 09/09/19 03:30 70 20 136/48 (77) 100 09/09/19 03:26 67 15 100 09/09/19 03:15 63 17 129/47 (74) 100 09/09/19 03:00 63 14 83/42 (56) 100 09/09/19 02:45 Mechanical Ventilator 09/09/19 02:45 65 16 80/41 (54) 100 09/09/19 02:41 64 14 74/39 (51) 100 09/09/19 02:32 67 14 69/41 (50) 100 09/09/19 02:30 67 15 62/41 (48) 09/09/19 02:28 67 15 65/37 (46) 09/09/19 02:15 76 15 98/52 (67) 09/09/19 02:15 76 14 100 09/09/19 02:09 74 14 83/50 (61) 09/09/19 02:04 73 15 79/35 (50) 100 09/09/19 02:02 71 15 51/38 (42) 100 09/09/19 02:00 96.7 73 16 54/34 (41) 09/09/19 00:00 68 09/09/19 00:00 97.1 72 24 134/58 (83) 99 09/08/19 21:00 Nasal Cannula 2.0 09/08/19 20:00 97.5 71 22 119/50 (73) 98 Intake and Output 09/08/19 09/09/19 19:00 07:00 Intake Total 60 ml 275 ml Output Total 900 ml 550 ml Balance -840 ml -275 ml Intake IV Total 275 ml Tube Feeding 60 ml Output Urine Total 900 ml 550 ml Laboratory Tests Test 09/09/19 07:06 White Blood Count 8.3 K/UL (4.8-10.8) Red Blood Count 3.21 M/UL (4.70-6.10) L Hemoglobin 8.3 G/DL (14.2-18.0) L Hematocrit 26.7 % (42.0-52.0) L Mean Corpuscular Volume 83 FL (80-99) Mean Corpuscular Hemoglobin 25.8 PG (27.0-31.0) L Mean Corpuscular Hemoglobin Concent 31.0 G/DL (32.0-36.0) L Red Cell Distribution Width 21.6 % (11.6-14.8) H Platelet Count 156 K/UL (150-450) Mean Platelet Volume 6.5 FL (6.5-10.1) Neutrophils (%) (Auto) 79.5 % (45.0-75.0) H Lymphocytes (%) (Auto) 11.2 % (20.0-45.0) L Monocytes (%) (Auto) 7.0 % (1.0-10.0) Eosinophils (%) (Auto) 2.0 % (0.0-3.0) Basophils (%) (Auto) 0.4 % (0.0-2.0) Sodium Level 142 MMOL/L (136-145) Potassium Level 4.0 MMOL/L (3.5-5.1) Chloride Level 108 MMOL/L (98-107) H Carbon Dioxide Level 27 MMOL/L (21-32) Anion Gap 7 mmol/L (5-15) Blood Urea Nitrogen 53 mg/dL (7-18) H Creatinine 1.5 MG/DL (0.55-1.30) H Estimat Glomerular Filtration Rate 53.8 mL/min (>60) Glucose Level 83 MG/DL (74-106) Calcium Level 9.5 MG/DL (8.5-10.1) Carcinoembryonic Antigen Pending Height (Feet): 5 Height (Inches): 11.00 Weight (Pounds): 154 Medications Current Medications Medications (Trade) Dose Ordered Sig/Kike Route PRN Reason Start Time Stop Time Status Last Admin Dose Admin Acetaminophen (Tylenol) 650 mg Q4H PRN ORAL fever 09/09/19 04:30 10/07/19 04:29 Albuterol/ Ipratropium (Albuterol/ Ipratropium) 3 ml Q4H PRN HHN Shortness of Breath 09/09/19 04:30 09/14/19 04:29 Alprazolam (Xanax) 0.5 mg Q6H PRN ORAL For Anxiety 09/09/19 04:30 09/14/19 04:29 Amlodipine Besylate (Norvasc) 2.5 mg DAILY ORAL 09/09/19 09:00 10/07/19 08:59 09/09/19 09:24 Cefepime HCl 1 gm/ Dextrose 55 ml @ 110 mls/hr Q24H IV 09/10/19 09:00 09/17/19 08:59 Heparin Sodium (Porcine) (Heparin 5000 units/ml) 5,000 units EVERY 12 HOURS SUBQ 09/09/19 09:00 10/22/19 08:59 09/09/19 09:27 Levothyroxine Sodium (Synthroid) 25 mcg DAILY@0630 ORAL 09/09/19 06:30 10/07/19 08:29 09/09/19 06:52 Mirtazapine (Remeron) 7.5 mg BEDTIME ORAL 09/09/19 21:00 12/06/19 20:59 Nitroglycerin (Ntg) 0.4 mg Q5M PRN SL Prn Chest Pain 09/09/19 04:30 10/07/19 04:29 Ondansetron HCl (Zofran) 4 mg Q6H PRN IVP Nausea & Vomiting 09/09/19 04:30 10/07/19 04:29 Pantoprazole (Protonix) 40 mg DAILY IVP 09/10/19 09:00 10/10/19 08:59 Polyethylene Glycol (Miralax) 17 gm DAILYPRN PRN ORAL Constipation 09/09/19 04:30 10/07/19 04:29 Promethazine HCl/ Codeine (Phenergan with Codeine) 5 ml Q4H PRN ORAL For Cough 09/09/19 04:30 10/07/19 04:29 Quetiapine Fumarate (SEROqueL) 25 mg Q8HR ORAL 09/09/19 06:00 10/22/19 08:14 09/09/19 14:07 Sodium Chloride 1,000 ml @ 75 mls/hr [id number] IV 09/09/19 14:00 10/09/19 13:59 09/09/19 14:00 Temazepam (Restoril) 15 mg HSPRN PRN ORAL Insomnia 09/09/19 08:15 09/14/19 08:14 Vancomycin HCl (Vanco rx to dose) 1 ea DAILY PRN MISC Per rx protocol 09/09/19 09:00 10/07/19 08:14 Vancomycin HCl 750 mg/Dextrose 275 ml @ 183.333 mls/hr Q24H IVPB 09/10/19 02:00 09/13/19 01:59 Assessment/Plan Problem List: (1) UTI (urinary tract infection) ICD Codes: N39.0 - Urinary tract infection, site not specified SNOMED: 83692240 (2) Acute respiratory failure Assessment & Plan: There is infiltrate suspected in the right perihilar region obscuring the right hilum. There is a hazy opacity that may partially be accounted for by pleural fluid on the right. Reticular densities are present on the left in the perihilar aspect of the lung. Endotracheal tube is in good position just above the anselmo. Heart size is normal. IMPRESSION: Suspected perihilar airspace disease in the right lung suspicious for pneumonia. Reticular nodular infiltrate in the left lung noted also. Right pleural effusion suspected. Endotracheal tube in good position cont vents support ICD Codes: J96.00 - Acute respiratory failure, unspecified whether with hypoxia or hypercapnia SNOMED: 90584464 (3) Sepsis ICD Codes: A41.9 - Sepsis, unspecified organism SNOMED: 01689090 (4) Severe anemia ICD Codes: D64.9 - Anemia, unspecified SNOMED: 337952204 (5) Nosocomial pneumonia ICD Codes: J18.9 - Pneumonia, unspecified organism; Y95 - Nosocomial condition SNOMED: 169173947 (6) Atrial fibrillation ICD Codes: I48.91 - Unspecified atrial fibrillation SNOMED: 01217965 (7) Acute metabolic encephalopathy ICD Codes: G93.41 - Metabolic encephalopathy SNOMED: 58280351, 160446442 (8) History of CVA (cerebrovascular accident) ICD Codes: Z86.73 - Personal history of transient ischemic attack (TIA), and cerebral infarction without residual deficits SNOMED: 434507849 (9) Diabetes mellitus ICD Codes: E11.9 - Type 2 diabetes mellitus without complications SNOMED: 26321930 (10) Hypothyroidism ICD Codes: E03.9 - Hypothyroidism, unspecified SNOMED: 32863767 (11) Alzheimer's dementia ICD Codes: G30.9 - Alzheimer's disease, unspecified; F02.80 - Dementia in other diseases classified elsewhere without behavioral disturbance SNOMED: 79986698 (12) PVC (premature ventricular contraction) ICD Codes: I49.3 - Ventricular premature depolarization SNOMED: 44084930 (13) Hypertension ICD Codes: I10 - Essential (primary) hypertension SNOMED: 37907452 (14) Squamous cell esophageal cancer ICD Codes: C15.9 - Malignant neoplasm of esophagus, unspecified SNOMED: 959643014 (15) Feeding by G-tube ICD Codes: Z93.1 - Gastrostomy status SNOMED: 753390061, 669795855, 208687952 (16) Dehydration ICD Codes: E86.0 - Dehydration SNOMED: 93741181 (17) Anemia ICD Codes: D64.9 - Anemia, unspecified SNOMED: 769242990 (18) Severe malnutrition Assessment & Plan: Pt cachetic and presented on admission with multiple pressure injuries. Partial thickness pressure injury Cleft of L ear(L)1.2cm x (W )0.4cm. Base of wound moist and viable with small amt sanguineous exudate. Partial thickness pressure injury cleft of R ear(L)0.5cm x (W)0.7cm. Base of wound moist and viable Periwound erythematous.Small amt sanguineous exudate noted. Sacral DTPI(L)5cm x (W)10.5cm. Base of injury is purple with maroon borders. Coccygeal bony protrusion with darker skin tone, and small opening noted to R gluteus (L)0.5cm x (W)0.5cm within base of injury. No further skin breakdown periwound. Intact blood blister noted to R 1st metatarsal head(L)1.1cm x (W)2.5cm. DTPI noted to L heel extending into plantar aspect. Base of injury presents as an intact blood filled blister. Periwound is boggy with non-blanching erythema. R heel is boggy but blanchable. Tx.Plan: Apply Betadine to clefts of R and L ears. Pad oxygen tubing with gauze and keep oxygen tubing loose. Apply Moisture Barrier Paste to Sacrum. Cover with Optifoam drsg. Change every 3 days and prn. Apply Betadine to L heel. Cover with Optifoam drsg. Change every 3 days and prn. Apply Betadine to R 1st metatarsal head. Cover with Optifoam drsg. Change every 3 days and prn. Apply Cavilon Skin Barrier R heel. Cover with Optifoam drsg. Change every 7 days and prn. Reposition at least every 2hours or as tolerated. Off-load heels with pillow. ICD Codes: E43 - Unspecified severe protein-calorie malnutrition SNOMED: 22477945 (19) Encounter for PEG (percutaneous endoscopic gastrostomy) ICD Codes: Z43.1 - Encounter for attention to gastrostomy SNOMED: 160426270, 833922928 (20) At high risk for aspiration ICD Codes: Z91.89 - Other specified personal risk factors, not elsewhere classified SNOMED: 754772586 (21) Pleural effusion ICD Codes: J90 - Pleural effusion, not elsewhere classified SNOMED: 80120116 (22) Suspected COVID-19 virus infection ICD Codes: R68.89 - Other general symptoms and signs SNOMED: 038459924 Jan Mora Sep 09, 2019 19:46
--- NOTE | 2019-09-09 20:49 | Infectious Diseases Prog Note ---
Assessment/Plan Assessment/Plan Afebrile No leukocytosis PNA MRSA screen pos sp cx: GNR CXR: Right pleural effusion, also demonstrated on prior 08/09/2019 exam, slightly increased. Hazy right lung parenchymal opacity probably represents a superimposed pleural fluid but infiltrate also possible. QTc 419 DM HTN CVA Dementia Nonverbal G tube Plan: continue cefepime and vanc #3 f/u Bcx f/u sp cx Repeat COVID swab given deterioration continue isolation precaution DW RN Thank you for this consult. [facility] will continue to follow the patient with you. Subjective Allergies: Coded Allergies: PENICILLINS (Verified Allergy, Unknown, 10/27/18) tolretas cephalosporins Subjective Afebrile. BLANKET BINDER called for bradycardia. Pt intubated. Objective Vital Signs Last 24 Hour Vital Signs Date Time Temp Pulse Resp B/P (MAP) Pulse Ox O2 Delivery O2 Flow Rate FiO2 09/09/19 19:02 67 14 100/35 (56) 09/09/19 19:00 69 14 84/33 (50) 100 09/09/19 18:48 65 14 60 09/09/19 18:00 60 14 85/37 (53) 100 09/09/19 17:00 94 22 121/68 (85) 09/09/19 16:43 68 14 60 09/09/19 16:00 69 09/09/19 16:00 99.4 67 14 100/36 (57) 100 09/09/19 16:00 Mechanical Ventilator 09/09/19 15:00 68 14 96/41 (59) 09/09/19 14:30 66 14 60 09/09/19 14:00 68 14 95/42 (59) 100 09/09/19 13:00 74 14 60 09/09/19 13:00 65 14 131/49 (76) 09/09/19 12:00 69 09/09/19 12:00 Mechanical Ventilator 09/09/19 12:00 98.4 66 14 83/36 (52) 100 09/09/19 11:30 69 14 102/46 (64) 100 09/09/19 11:01 63 14 60 09/09/19 11:00 66 14 94/39 (57) 09/09/19 10:30 63 14 61/30 (40) 09/09/19 10:00 69 14 73/44 (54) 97 09/09/19 09:30 75 18 60 09/09/19 09:30 74 22 94/67 (76) 100 09/09/19 09:24 82 135/61 09/09/19 09:00 97.8 71 20 113/44 (67) 09/09/19 08:00 Mechanical Ventilator 09/09/19 08:00 65 09/09/19 08:00 65 20 118/78 (91) 96 09/09/19 07:00 97.8 66 22 109/49 (69) 100 09/09/19 07:00 63 19 60 09/09/19 06:09 63 15 100 09/09/19 06:00 66 19 96/54 (68) 100 09/09/19 05:00 66 19 111/55 (73) 100 09/09/19 04:45 68 16 129/48 (75) 100 09/09/19 04:30 63 14 107/41 (63) 09/09/19 04:15 68 16 100/52 (68) 100 09/09/19 04:00 63 16 112/64 (80) 100 09/09/19 04:00 63 09/09/19 03:45 63 14 91/48 (62) 100 09/09/19 03:30 70 20 136/48 (77) 100 09/09/19 03:26 67 15 100 09/09/19 03:15 63 17 129/47 (74) 100 09/09/19 03:00 63 14 83/42 (56) 100 09/09/19 02:45 Mechanical Ventilator 09/09/19 02:45 65 16 80/41 (54) 100 09/09/19 02:41 64 14 74/39 (51) 100 09/09/19 02:32 67 14 69/41 (50) 100 09/09/19 02:30 67 15 62/41 (48) 09/09/19 02:28 67 15 65/37 (46) 09/09/19 02:15 76 15 98/52 (67) 09/09/19 02:15 76 14 100 09/09/19 02:09 74 14 83/50 (61) 09/09/19 02:04 73 15 79/35 (50) 100 09/09/19 02:02 71 15 51/38 (42) 100 09/09/19 02:00 96.7 73 16 54/34 (41) 09/09/19 00:00 68 09/09/19 00:00 97.1 72 24 134/58 (83) 99 09/08/19 21:00 Nasal Cannula 2.0 Height (Feet): 5 Height (Inches): 11.00 Weight (Pounds): 154 Objective Gen: NAD. well nourished HEENT: ETT Resp: coarse. equal chest rise. regular rate and rhythm. Abd: Soft. no TTP. nondistended. G tube site c/d/i. Microbiology Date/Time Source Procedure Growth Status 09/07/19 01:15 Blood Blood Culture - Preliminary NO GROWTH AFTER 48 HOURS Resulted 09/07/19 01:15 Blood Blood Culture - Preliminary NO GROWTH AFTER 48 HOURS Resulted 09/07/19 14:00 Sputum Gram Stain - Final Resulted 09/07/19 14:00 Sputum Culture - Preliminary Gram Negative Bacillus 1 Resulted 09/07/19 01:30 Nasopharynx Coronavirus COVID-19 PCR (KEEGAN) - Final Complete 09/07/19 01:15 Nasal Nares MRSA Culture - Final Staphylococcus Aureus - Mrsa Complete 09/07/19 01:15 Nasal Nares - Final Complete 09/07/19 01:15 Nasal Nares - Final Complete 09/07/19 01:15 Urine,Clean Catch Urine Culture - Preliminary Yeast Species Resulted 09/07/19 01:15 Rectum - Final NO CARBAPENEM-RESISTANT ENTEROBACTERI... Complete 09/07/19 01:15 Rectum VRE Culture - Final Enterococcus Faecalis - Vre Enterococcus Faecium - Vre Complete Laboratory Tests Test 09/09/19 07:06 White Blood Count 8.3 K/UL (4.8-10.8) Red Blood Count 3.21 M/UL (4.70-6.10) L Hemoglobin 8.3 G/DL (14.2-18.0) L Hematocrit 26.7 % (42.0-52.0) L Mean Corpuscular Volume 83 FL (80-99) Mean Corpuscular Hemoglobin 25.8 PG (27.0-31.0) L Mean Corpuscular Hemoglobin Concent 31.0 G/DL (32.0-36.0) L Red Cell Distribution Width 21.6 % (11.6-14.8) H Platelet Count 156 K/UL (150-450) Mean Platelet Volume 6.5 FL (6.5-10.1) Neutrophils (%) (Auto) 79.5 % (45.0-75.0) H Lymphocytes (%) (Auto) 11.2 % (20.0-45.0) L Monocytes (%) (Auto) 7.0 % (1.0-10.0) Eosinophils (%) (Auto) 2.0 % (0.0-3.0) Basophils (%) (Auto) 0.4 % (0.0-2.0) Sodium Level 142 MMOL/L (136-145) Potassium Level 4.0 MMOL/L (3.5-5.1) Chloride Level 108 MMOL/L (98-107) H Carbon Dioxide Level 27 MMOL/L (21-32) Anion Gap 7 mmol/L (5-15) Blood Urea Nitrogen 53 mg/dL (7-18) H Creatinine 1.5 MG/DL (0.55-1.30) H Estimat Glomerular Filtration Rate 53.8 mL/min (>60) Glucose Level 83 MG/DL (74-106) Calcium Level 9.5 MG/DL (8.5-10.1) Carcinoembryonic Antigen Pending Current Medications Medications (Trade) Dose Ordered Sig/Kike Route PRN Reason Start Time Stop Time Status Last Admin Dose Admin Acetaminophen (Tylenol) 650 mg Q4H PRN ORAL fever 09/09/19 04:30 10/07/19 04:29 Albuterol/ Ipratropium (Albuterol/ Ipratropium) 3 ml Q4H PRN HHN Shortness of Breath 09/09/19 04:30 09/14/19 04:29 Alprazolam (Xanax) 0.5 mg Q6H PRN ORAL For Anxiety 09/09/19 04:30 09/14/19 04:29 Amlodipine Besylate (Norvasc) 2.5 mg DAILY ORAL 09/09/19 09:00 10/07/19 08:59 09/09/19 09:24 Cefepime HCl 1 gm/ Dextrose 55 ml @ 110 mls/hr Q24H IV 09/10/19 09:00 09/17/19 08:59 Heparin Sodium (Porcine) (Heparin 5000 units/ml) 5,000 units EVERY 12 HOURS SUBQ 09/09/19 09:00 10/22/19 08:59 09/09/19 09:27 Levothyroxine Sodium (Synthroid) 25 mcg DAILY@0630 ORAL 09/09/19 06:30 10/07/19 08:29 09/09/19 06:52 Mirtazapine (Remeron) 7.5 mg BEDTIME ORAL 09/09/19 21:00 12/06/19 20:59 Nitroglycerin (Ntg) 0.4 mg Q5M PRN SL Prn Chest Pain 09/09/19 04:30 10/07/19 04:29 Ondansetron HCl (Zofran) 4 mg Q6H PRN IVP Nausea & Vomiting 09/09/19 04:30 10/07/19 04:29 Pantoprazole (Protonix) 40 mg DAILY IVP 09/10/19 09:00 10/10/19 08:59 Polyethylene Glycol (Miralax) 17 gm DAILYPRN PRN ORAL Constipation 09/09/19 04:30 10/07/19 04:29 Promethazine HCl/ Codeine (Phenergan with Codeine) 5 ml Q4H PRN ORAL For Cough 09/09/19 04:30 10/07/19 04:29 Quetiapine Fumarate (SEROqueL) 25 mg Q8HR ORAL 09/09/19 06:00 10/22/19 08:14 09/09/19 14:07 Sodium Chloride 1,000 ml @ 75 mls/hr [id number] IV 09/09/19 14:00 10/09/19 13:59 09/09/19 14:00 Temazepam (Restoril) 15 mg HSPRN PRN ORAL Insomnia 09/09/19 08:15 09/14/19 08:14 Vancomycin HCl (Vanco rx to dose) 1 ea DAILY PRN MISC Per rx protocol 09/09/19 09:00 10/07/19 08:14 Vancomycin HCl 750 mg/Dextrose 275 ml @ 183.333 mls/hr Q24H IVPB 09/10/19 02:00 09/13/19 01:59 Marcelina Matias MD Sep 09, 2019 20:49
--- NOTE | 2019-09-09 22:57 | Internal Med Progress Note ---
Subjective Physician Name Lamont Hayes Attending Physician Lamont Hayes MD Current Medications Medications (Trade) Dose Ordered Sig/Kike Route PRN Reason Start Time Stop Time Status Last Admin Dose Admin Acetaminophen (Tylenol) 650 mg Q4H PRN ORAL fever 09/09/19 04:30 10/07/19 04:29 Albuterol/ Ipratropium (Albuterol/ Ipratropium) 3 ml Q4H PRN HHN Shortness of Breath 09/09/19 04:30 09/14/19 04:29 Alprazolam (Xanax) 0.5 mg Q6H PRN ORAL For Anxiety 09/09/19 04:30 09/14/19 04:29 Amlodipine Besylate (Norvasc) 2.5 mg DAILY ORAL 09/09/19 09:00 10/07/19 08:59 09/09/19 09:24 Cefepime HCl 1 gm/ Dextrose 55 ml @ 110 mls/hr Q24H IV 09/10/19 09:00 09/17/19 08:59 Heparin Sodium (Porcine) (Heparin 5000 units/ml) 5,000 units EVERY 12 HOURS SUBQ 09/09/19 09:00 10/22/19 08:59 09/09/19 20:52 Levothyroxine Sodium (Synthroid) 25 mcg DAILY@0630 ORAL 09/09/19 06:30 10/07/19 08:29 09/09/19 06:52 Mirtazapine (Remeron) 7.5 mg BEDTIME ORAL 09/09/19 21:00 12/06/19 20:59 Nitroglycerin (Ntg) 0.4 mg Q5M PRN SL Prn Chest Pain 09/09/19 04:30 10/07/19 04:29 Ondansetron HCl (Zofran) 4 mg Q6H PRN IVP Nausea & Vomiting 09/09/19 04:30 10/07/19 04:29 Pantoprazole (Protonix) 40 mg DAILY IVP 09/10/19 09:00 10/10/19 08:59 Polyethylene Glycol (Miralax) 17 gm DAILYPRN PRN ORAL Constipation 09/09/19 04:30 10/07/19 04:29 Promethazine HCl/ Codeine (Phenergan with Codeine) 5 ml Q4H PRN ORAL For Cough 09/09/19 04:30 10/07/19 04:29 Quetiapine Fumarate (SEROqueL) 25 mg Q8HR ORAL 09/09/19 06:00 10/22/19 08:14 09/09/19 14:07 Sodium Chloride 1,000 ml @ 75 mls/hr [id number] IV 09/09/19 14:00 10/09/19 13:59 09/09/19 14:00 Temazepam (Restoril) 15 mg HSPRN PRN ORAL Insomnia 09/09/19 08:15 09/14/19 08:14 Vancomycin HCl (Vanco rx to dose) 1 ea DAILY PRN MISC Per rx protocol 09/09/19 09:00 10/07/19 08:14 Vancomycin HCl 750 mg/Dextrose 275 ml @ 183.333 mls/hr Q24H IVPB 09/10/19 02:00 09/13/19 01:59 Allergies: Coded Allergies: PENICILLINS (Verified Allergy, Unknown, 10/27/18) tolretas cephalosporins Subjective Intubated on vent, not responsive, Hgb: 8.3 Objective Last Vital Signs Date Time Temp Pulse Resp B/P (MAP) Pulse Ox O2 Delivery O2 Flow Rate FiO2 09/09/19 22:37 79 14 60 09/09/19 19:02 100/35 (56) 09/09/19 19:00 100 09/09/19 16:00 99.4 09/09/19 16:00 Mechanical Ventilator 09/08/19 21:00 2.0 Laboratory Tests Test 09/09/19 07:06 White Blood Count 8.3 K/UL (4.8-10.8) Red Blood Count 3.21 M/UL (4.70-6.10) L Hemoglobin 8.3 G/DL (14.2-18.0) L Hematocrit 26.7 % (42.0-52.0) L Mean Corpuscular Volume 83 FL (80-99) Mean Corpuscular Hemoglobin 25.8 PG (27.0-31.0) L Mean Corpuscular Hemoglobin Concent 31.0 G/DL (32.0-36.0) L Red Cell Distribution Width 21.6 % (11.6-14.8) H Platelet Count 156 K/UL (150-450) Mean Platelet Volume 6.5 FL (6.5-10.1) Neutrophils (%) (Auto) 79.5 % (45.0-75.0) H Lymphocytes (%) (Auto) 11.2 % (20.0-45.0) L Monocytes (%) (Auto) 7.0 % (1.0-10.0) Eosinophils (%) (Auto) 2.0 % (0.0-3.0) Basophils (%) (Auto) 0.4 % (0.0-2.0) Sodium Level 142 MMOL/L (136-145) Potassium Level 4.0 MMOL/L (3.5-5.1) Chloride Level 108 MMOL/L (98-107) H Carbon Dioxide Level 27 MMOL/L (21-32) Anion Gap 7 mmol/L (5-15) Blood Urea Nitrogen 53 mg/dL (7-18) H Creatinine 1.5 MG/DL (0.55-1.30) H Estimat Glomerular Filtration Rate 53.8 mL/min (>60) Glucose Level 83 MG/DL (74-106) Calcium Level 9.5 MG/DL (8.5-10.1) Carcinoembryonic Antigen Pending Microbiology Date/Time Source Procedure Growth Status 09/07/19 01:15 Blood Blood Culture - Preliminary NO GROWTH AFTER 48 HOURS Resulted 09/07/19 01:15 Blood Blood Culture - Preliminary NO GROWTH AFTER 48 HOURS Resulted 09/07/19 14:00 Sputum Gram Stain - Final Resulted 09/07/19 14:00 Sputum Culture - Preliminary Gram Negative Bacillus 1 Resulted 09/07/19 01:30 Nasopharynx Coronavirus COVID-19 PCR (KEEGAN) - Final Complete 09/07/19 01:15 Nasal Nares MRSA Culture - Final Staphylococcus Aureus - Mrsa Complete 09/07/19 01:15 Nasal Nares - Final Complete 09/07/19 01:15 Nasal Nares - Final Complete 09/07/19 01:15 Urine,Clean Catch Urine Culture - Preliminary Yeast Species Resulted 09/07/19 01:15 Rectum - Final NO CARBAPENEM-RESISTANT ENTEROBACTERI... Complete 09/07/19 01:15 Rectum VRE Culture - Final Enterococcus Faecalis - Vre Enterococcus Faecium - Vre Complete Intake and Output 09/08/19 09/09/19 19:00 07:00 Intake Total 60 ml 275 ml Output Total 900 ml 550 ml Balance -840 ml -275 ml Intake IV Total 275 ml Tube Feeding 60 ml Output Urine Total 900 ml 550 ml Objective General: Intubated, not responsive, on Vent. HEENT: NCAT, sclera anicteric, PERRL, ET Tube. Neck: Supple, no significant jugular venous distention, Lungs: Mechanical Breath sound, decrease air at bases, no Wheeze or Rales. Heart: Regular rate and rhythm, normal S1/S2, no murmurs/gallops Abdomen: soft, nontender, nondistended. Normoactive bowel sounds, + PEG : Muniz cath. Extremities: No Cyanosis , clubbing or edema. Neuro: Able to move all extremities slowly. Skin: warm, no rash. Assessment/Plan Assessment/Plan ASSESSMENT: This is an 84-year-old male with: 1. Acute respiratory failure with GNB right pneumonia. 2. Urinary tract infection. 3. Right pleural effusion. 4. Esophageal mass. 5. Dysphagia. 6. Diabetes. 7. Alzheimer's dementia. 8. Cerebrovascular disease. 9. Hypothyroidism. 10. Seizure disorder. 11. Iron deficiency anemia. 12. sepsis. TREATMENT: 1. Right side Pneumonia. Chest x-ray revealed right pleural effusion and possible pneumonia. Influenza negative. A Pulmonary consultation has been obtained with Dr. Vania Hui. The patient underwent thoracentesis during previous hospitalization. We will follow recommendation of Pulmonary. Continue vanco IV and cefepime IV per ID=Dr Matias 2. Urinary tract infection. The patient has been started empirically on vancomycin and cefepime. A urine culture is pending. 3. Right pleural effusion. As above, a Pulmonary consultation has been obtained with Dr. Vania Hui. The patient may require thoracentesis during this hospitalization. 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 A Gastroenterology consultation has been obtained with Dr. Darrick Rosario. 5. Dysphagia. The patient is status post PEG placement on 08/08/[address] at [facility] by Dr. Darrick Rosario. 6. Diabetes type 2. A NovoLog sliding scale has been instituted. 7. Alzheimer's dementia. 8. Cerebrovascular disease, status post cerebrovascular accident. 9. Hypothyroidism. Continue levothyroxine as above. 10. Seizure disorder. 11. Iron deficiency anemia. Lamont Hayes MD Sep 09, 2019 22:57
[2019-09-10] VITALS (29 sets, daily range): BP systolic 96–135; BP diastolic 30–58
[2019-09-10] MEDS ORDERED: Vancomycin 750 MG in D5W 275 ML IVPB SCH (02:00)
[2019-09-10 05:24] LABS: HEMATOCRIT 20.3 % (42.0-52.0); MEAN CORPUSCULAR VOLUME 82 FL (80-99); PLATELET COUNT 144 K/UL (150-450); RED BLOOD COUNT 2.47 M/UL (4.70-6.10); RED CELL DISTRIBUTION WIDTH 20.2 % (11.6-14.8); WHITE BLOOD COUNT 6.6 K/UL (4.8-10.8)
[2019-09-10 05:28] LABS: HEMOGLOBIN 6.4 G/DL (14.2-18.0)
[2019-09-10 05:30] LABS: ALANINE AMINOTRANSFERASE 88 U/L (12-78); ALBUMIN 1.8 G/DL (3.4-5.0); ALBUMIN/GLOBULIN RATIO 0.4 (1.0-2.7); ALKALINE PHOSPHATASE 184 U/L (46-116); ANION GAP 11 mmol/L (5-15); ASPARTATE AMINO TRANSFERASE 83 U/L (15-37); BILIRUBIN,TOTAL 0.5 MG/DL (0.2-1.0); BLOOD UREA NITROGEN 49 mg/dL (7-18); CALCIUM 8.8 MG/DL (8.5-10.1); CARBON DIOXIDE 24 MMOL/L (21-32); CHLORIDE 112 MMOL/L (98-107); CREATININE 1.6 MG/DL (0.55-1.30); POTASSIUM 3.5 MMOL/L (3.5-5.1); SODIUM 147 MMOL/L (136-145)
[2019-09-10] MEDS: Levothyroxine 25mcg tab ORAL SCH (06:05)
--- NOTE | 2019-09-10 06:50 | Pulmonolgy Critical Care Note ---
Critical Care - Asmt/Plan Problems: (1) Acute respiratory failure (2) Suspected COVID-19 virus infection (3) Nosocomial pneumonia (4) Sepsis (5) Diabetes mellitus (6) At high risk for aspiration (7) Severe malnutrition (8) Feeding by G-tube (9) Squamous cell esophageal cancer (10) Alzheimer's dementia (11) History of CVA (cerebrovascular accident) Respiratory: monitor respiratory rate, adjust FIO2, CXR Cardiac: continue to monitor HR/BP Renal: F/U I&O Infectious Disease: continue antibiotics Gastrointestinal: continue feedings/current rate Endocrine: monitor blood sugar, continue sliding scale insulin Hematologic: transfuse if hgb<8.5 - one unit Neurologic: PRN Ativan, PRN Morphine, keep patient comfortable Affect: PRN ativan Notes Reviewed: manufacturing director, 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 with: nurses, consultants, home health care case managerrehab therapy manager - Objective Last 24 Hour Vital Signs Date Time Temp Pulse Resp B/P (MAP) Pulse Ox O2 Delivery O2 Flow Rate FiO2 09/10/19 06:00 65 14 126/49 (74) 100 09/10/19 05:30 65 14 114/45 (68) 100 09/10/19 05:25 67 17 60 09/10/19 05:00 98.5 68 14 121/42 (68) 100 09/10/19 04:30 66 14 110/40 (63) 91 09/10/19 04:00 65 14 108/42 (64) 99 09/10/19 04:00 Mechanical Ventilator 09/10/19 04:00 65 09/10/19 03:31 64 14 60 09/10/19 03:30 71 14 110/38 (62) 09/10/19 03:00 67 14 119/40 (66) 98 09/10/19 02:00 73 14 108/40 (62) 91 09/10/19 01:30 70 14 96/37 (56) 100 09/10/19 01:00 74 14 122/41 (68) 91 09/10/19 00:41 73 14 60 09/10/19 00:30 72 14 108/40 (62) 100 09/10/19 00:00 Mechanical Ventilator 09/10/19 00:00 98.5 75 14 103/37 (59) 100 09/09/19 23:00 75 14 93/36 (55) 09/09/19 22:37 79 14 60 09/09/19 22:30 73 14 118/42 (67) 100 09/09/19 22:00 73 14 93/43 (60) 09/09/19 21:30 71 14 104/42 (62) 100 09/09/19 21:00 70 14 97/48 (64) 100 09/09/19 20:30 67 13 90/45 (60) 100 09/09/19 20:00 98.6 68 14 91/38 (55) 100 09/09/19 20:00 68 09/09/19 20:00 Mechanical Ventilator 09/09/19 19:02 67 14 100/35 (56) 09/09/19 19:00 69 14 84/33 (50) 100 09/09/19 18:48 65 14 60 09/09/19 18:00 60 14 85/37 (53) 100 09/09/19 17:00 94 22 121/68 (85) 09/09/19 16:43 68 14 60 09/09/19 16:00 69 09/09/19 16:00 99.4 67 14 100/36 (57) 100 09/09/19 16:00 Mechanical Ventilator 09/09/19 15:00 68 14 96/41 (59) 09/09/19 14:30 66 14 60 09/09/19 14:00 68 14 95/42 (59) 100 09/09/19 13:00 74 14 60 09/09/19 13:00 65 14 131/49 (76) 09/09/19 12:00 69 09/09/19 12:00 Mechanical Ventilator 09/09/19 12:00 98.4 66 14 83/36 (52) 100 09/09/19 11:30 69 14 102/46 (64) 100 09/09/19 11:01 63 14 60 09/09/19 11:00 66 14 94/39 (57) 09/09/19 10:30 63 14 61/30 (40) 09/09/19 10:00 69 14 73/44 (54) 97 09/09/19 09:30 75 18 60 09/09/19 09:30 74 22 94/67 (76) 100 09/09/19 09:24 82 135/61 09/09/19 09:00 97.8 71 20 113/44 (67) 09/09/19 08:00 Mechanical Ventilator 09/09/19 08:00 65 09/09/19 08:00 65 20 118/78 (91) 96 09/09/19 07:00 97.8 66 22 109/49 (69) 100 09/09/19 07:00 63 19 60 Condition: critical HEENT: atraumatic Lungs: clear Heart: HR/BP stable, HR/BP unstable Abdomen: soft, non-tender Extremities: no C/C/E Decubiti: location Micro: Microbiology Date/Time Source Procedure Growth Status 09/07/19 14:00 Sputum Gram Stain - Final Resulted 09/07/19 14:00 Sputum Culture - Preliminary Pseudomonas Aeruginosa Resulted Critical Care - Subjective ROS Limited/Unobtainable: Yes Condition: critical EKG Rhythm: Sinus Rhythm FI02: 60 Vent Support Breath Rate: 14 Vent Support Mode: AC Vent Tidal Volume: 550 Sputum Amount: Small PEEP: 5.0 PIP: 45 Tube Feeding Amount: 30 I&O: Intake and Output 09/09/19 09/10/19 19:00 07:00 Intake Total 385 ml 855 ml Output Total 510 ml 250 ml Balance -125 ml 605 ml Intake IV Total 375 ml 750 ml Tube Feeding 10 ml 105 ml Output Urine Total 510 ml 250 ml # Bowel Movements 6 CXR: ET ok, right effusion Labs: Laboratory Tests Test 09/09/19 07:06 09/10/19 01:45 09/10/19 04:30 White Blood Count 8.3 K/UL (4.8-10.8) 6.6 K/UL (4.8-10.8) Red Blood Count 3.21 M/UL (4.70-6.10) L 2.47 M/UL (4.70-6.10) L Hemoglobin 8.3 G/DL (14.2-18.0) L 6.4 G/DL (14.2-18.0) *L Hematocrit 26.7 % (42.0-52.0) L 20.3 % (42.0-52.0) L Mean Corpuscular Volume 83 FL (80-99) 82 FL (80-99) Mean Corpuscular Hemoglobin 25.8 PG (27.0-31.0) L 25.9 PG (27.0-31.0) L Mean Corpuscular Hemoglobin Concent 31.0 G/DL (32.0-36.0) L 31.4 G/DL (32.0-36.0) L Red Cell Distribution Width 21.6 % (11.6-14.8) H 20.2 % (11.6-14.8) H Platelet Count 156 K/UL (150-450) 144 K/UL (150-450) L Mean Platelet Volume 6.5 FL (6.5-10.1) 6.4 FL (6.5-10.1) L Neutrophils (%) (Auto) 79.5 % (45.0-75.0) H % (45.0-75.0) Lymphocytes (%) (Auto) 11.2 % (20.0-45.0) L % (20.0-45.0) Monocytes (%) (Auto) 7.0 % (1.0-10.0) % (1.0-10.0) Eosinophils (%) (Auto) 2.0 % (0.0-3.0) % (0.0-3.0) Basophils (%) (Auto) 0.4 % (0.0-2.0) % (0.0-2.0) Sodium Level 142 MMOL/L (136-145) 147 MMOL/L (136-145) H Potassium Level 4.0 MMOL/L (3.5-5.1) 3.5 MMOL/L (3.5-5.1) Chloride Level 108 MMOL/L (98-107) H 112 MMOL/L (98-107) H Carbon Dioxide Level 27 MMOL/L (21-32) 24 MMOL/L (21-32) Anion Gap 7 mmol/L (5-15) 11 mmol/L (5-15) Blood Urea Nitrogen 53 mg/dL (7-18) H 49 mg/dL (7-18) H Creatinine 1.5 MG/DL (0.55-1.30) H 1.6 MG/DL (0.55-1.30) H Estimat Glomerular Filtration Rate 53.8 mL/min (>60) 49.9 mL/min (>60) Glucose Level 83 MG/DL (74-106) 64 MG/DL (74-106) L Calcium Level 9.5 MG/DL (8.5-10.1) 8.8 MG/DL (8.5-10.1) Carcinoembryonic Antigen Pending Vancomycin Level Trough 13.9 ug/mL (5.0-12.0) H Differential Total Cells Counted 100 Neutrophils % (Manual) 72 % (45-75) Lymphocytes % (Manual) 16 % (20-45) L Monocytes % (Manual) 8 % (1-10) Eosinophils % (Manual) 4 % (0-3) H Basophils % (Manual) 0 % (0-2) Band Neutrophils 0 % (0-8) Platelet Estimate Decreased L Platelet Morphology Normal Hypochromasia 4+ Anisocytosis 2+ Erythrocyte Sedimentation Rate 140 MM/HR (0-20) H Prothrombin Time 11.0 SEC (9.30-11.50) Prothromb Time International Ratio 1.0 (0.9-1.1) Activated Partial Thromboplast Time 31 SEC (23-33) Total Bilirubin 0.5 MG/DL (0.2-1.0) Aspartate Amino Transf (AST/SGOT) 83 U/L (15-37) H Alanine Aminotransferase (ALT/SGPT) 88 U/L (12-78) H Alkaline Phosphatase 184 U/L (46-116) H C-Reactive Protein, Quantitative 21.8 mg/dL (0.00-0.90) H Total Protein 6.9 G/DL (6.4-8.2) Albumin 1.8 G/DL (3.4-5.0) L Globulin 5.1 g/dL Albumin/Globulin Ratio 0.4 (1.0-2.7) L Vania Hui MD Sep 10, 2019 06:50
[2019-09-10 07:33] LABS: HEMATOCRIT 22.1 % (42.0-52.0); MEAN CORPUSCULAR VOLUME 83 FL (80-99); PLATELET COUNT 155 K/UL (150-450); RED BLOOD COUNT 2.67 M/UL (4.70-6.10); RED CELL DISTRIBUTION WIDTH 20.9 % (11.6-14.8); WHITE BLOOD COUNT 6.5 K/UL (4.8-10.8)
[2019-09-10] MEDS: Cefepime HCl 1 GM in D5W 55 ML IV SCH (08:09)
[2019-09-10] MEDS: Pantoprazole Inj IVP SCH (08:09)
[2019-09-10] MEDS: Heparin 5000 units/ml inj SUBQ SCH ×2 (08:10→21:00)
--- NOTE | 2019-09-10 10:06 | Consultation ---
Consult Note Consult Note I was asked to evaluate the patient at the request of Dr. Hayes for rising serum creatinine. Patient is known to me from his previous admission in early August. Patient seen in ICU. Records reviewed. Discussed with RN. Day 3 hospitalization. Intubated on mechanical ventilator. No history can be obtained. Emergency room note: This an elderly gentleman was admitted to the hospital for pneumonia, CHF, UTI. I responded to a CODE BLUE. Per nursing staff, patient had bradycardia and desaturation. He has copious amount of purulent patient is mouth. On my arrival, patient is being bagged. He already received 1 mg of epinephrine. He had a pulse. I proceeded to intubate the patient. Heart intubation there was again copious amount of purulent secretion in his mouth. I suctioned that out. I intubated the patient after giving him succinylcholine and etomidate. Patient intubated without any difficulty. I placed a 7.5 endotracheal tube at 20 cm at the lip. There is good breath sound bilaterally. There is station in the tube. There is good CO2 color change. Patient was placed on the vent and transferred to the ICU. Please see code sheet for full information. PENICILLINS (Verified Allergy, Unknown, 10/27/18) tolretas cephalosporins COVID-19 Screening Contact w/high risk pt: No Recent Travel to affected area: No Experienced COVID-19 symptoms?: Yes COVID-19 symptoms experienced: Shortness of Breath, Cough Past Medical History Deferred: Pt Cognitively Impaired Hx Cardiac Problems: Yes Hx Hypertension: Yes Hx COPD: Yes - RESP FAILURE Hx Diabetes: Yes Hx Gastrointestinal Problems: Yes - G TUBE History Of Psychiatric Problem: Yes - DEPRESSIVE Hx Neurological Problems: Yes Hx Cerebrovascular Accident: Yes Hx Dementia: Yes . Assessment/Plan - Acute renal failure - Severe anemia - Sepsis, pneumonia, acute respiratory failure, suspected: Viewed 19 virus infection - Diabetes mellitus - Hypothyroidism - Feeding by G-tube - Squamous cell esophageal cancer - History of CVA (cerebrovascular accident) Plan: Monitor renal parameters Avoid nephrotoxic's as possible Ventilator management Urine studies Per orders Clovis Benites MD Sep 10, 2019 10:06
--- NOTE | 2019-09-10 10:19 | Diagnostic Imaging Report ---
EXAM: XR Chest, 1 View CLINICAL HISTORY: F/U TECHNIQUE: Frontal view of the chest. COMPARISON: Chest x-rays obtained earlier on 09/10/19 at 7:39 AM, chest x-rays dated 09/09/19 and 09/07/19 FINDINGS: Lungs: Scattered patchy opacities in right mid and lower lung and left lung base. Pleural space: Bilateral small layering pleural effusions suspected. Heart: Unremarkable. No cardiomegaly. Mediastinum: Unremarkable. Bones/joints: Unremarkable. Tubes, lines and devices: Telemetry leads overlie the thorax. Stable positioning of the endotracheal tube. Upper abdomen: Elevation of the right hemidiaphragm. IMPRESSION: 1. No significant interval change from the chest x-ray obtained earlier the same date 2. Elevation of the right hemidiaphragm. 3. Bilateral small layering pleural effusions suspected. 4. Scattered patchy opacities in right mid and lower lung and left lung base.
[2019-09-10 10:45] LABS: PHOSPHORUS 3.8 MG/DL (2.5-4.9)
[2019-09-10] MEDS ORDERED: NS 275ml ONE (12:38)
[2019-09-10] MEDS ORDERED: Tubing IV Secondary IV ONE (12:38)
--- NOTE | 2019-09-10 13:25 | Infectious Diseases Prog Note ---
Assessment/Plan Assessment/Plan Afebrile No leukocytosis PNA MRSA screen pos sp cx: PSA CXR: Right pleural effusion, also demonstrated on prior 08/09/2019 exam, slightly increased. Hazy right lung parenchymal opacity probably represents a superimposed pleural fluid but infiltrate also possible. QTc 419 DM HTN CVA Dementia Nonverbal G tube Plan: continue cefepime # 4 and DC vanc #4 ( Cr increased) f/u Bcx f/u sp cx Repeat COVID swab given deterioration continue isolation precaution DW RN Thank you for this consult. [facility] will continue to follow the patient with you. Subjective Allergies: Coded Allergies: PENICILLINS (Verified Allergy, Unknown, 10/27/18) tolretas cephalosporins Subjective afebrile Objective Vital Signs Last 24 Hour Vital Signs Date Time Temp Pulse Resp B/P (MAP) Pulse Ox O2 Delivery O2 Flow Rate FiO2 09/10/19 13:07 62 14 40 09/10/19 12:00 Mechanical Ventilator 09/10/19 12:00 98.5 59 14 110/39 (62) 100 09/10/19 11:14 62 14 40 09/10/19 11:00 64 15 111/42 (65) 100 09/10/19 10:00 65 15 125/43 (70) 100 09/10/19 09:00 65 14 121/39 (66) 100 09/10/19 08:50 62 15 50 09/10/19 08:22 63 09/10/19 08:09 64 117/44 09/10/19 08:00 99.5 68 17 117/44 (68) 100 09/10/19 08:00 Mechanical Ventilator 09/10/19 07:03 77 15 60 09/10/19 07:00 72 14 130/41 (70) 100 09/10/19 06:00 65 14 126/49 (74) 100 09/10/19 05:30 65 14 114/45 (68) 100 09/10/19 05:25 67 17 60 09/10/19 05:00 98.5 68 14 121/42 (68) 100 09/10/19 04:30 66 14 110/40 (63) 91 09/10/19 04:00 65 14 108/42 (64) 99 09/10/19 04:00 Mechanical Ventilator 09/10/19 04:00 65 09/10/19 03:31 64 14 60 09/10/19 03:30 71 14 110/38 (62) 09/10/19 03:00 67 14 119/40 (66) 98 09/10/19 02:00 73 14 108/40 (62) 91 09/10/19 01:30 70 14 96/37 (56) 100 09/10/19 01:00 74 14 122/41 (68) 91 09/10/19 00:41 73 14 60 09/10/19 00:30 72 14 108/40 (62) 100 09/10/19 00:00 Mechanical Ventilator 09/10/19 00:00 98.5 75 14 103/37 (59) 100 09/09/19 23:00 75 14 93/36 (55) 09/09/19 22:37 79 14 60 09/09/19 22:30 73 14 118/42 (67) 100 09/09/19 22:00 73 14 93/43 (60) 09/09/19 21:30 71 14 104/42 (62) 100 09/09/19 21:00 70 14 97/48 (64) 100 09/09/19 20:30 67 13 90/45 (60) 100 09/09/19 20:00 98.6 68 14 91/38 (55) 100 09/09/19 20:00 68 09/09/19 20:00 Mechanical Ventilator 09/09/19 19:02 67 14 100/35 (56) 09/09/19 19:00 69 14 84/33 (50) 100 09/09/19 18:48 65 14 60 09/09/19 18:00 60 14 85/37 (53) 100 09/09/19 17:00 94 22 121/68 (85) 09/09/19 16:43 68 14 60 09/09/19 16:00 69 09/09/19 16:00 99.4 67 14 100/36 (57) 100 09/09/19 16:00 Mechanical Ventilator 09/09/19 15:00 68 14 96/41 (59) 09/09/19 14:30 66 14 60 09/09/19 14:00 68 14 95/42 (59) 100 Height (Feet): 5 Height (Inches): 11.00 Weight (Pounds): 154 HEENT: anicteric Respiratory/Chest: no respiratory distress Cardiovascular: regularly irregular Abdomen: no organomegaly Microbiology Date/Time Source Procedure Growth Status 09/07/19 14:00 Sputum Gram Stain - Final Resulted 09/07/19 14:00 Sputum Culture - Preliminary Pseudomonas Aeruginosa Resulted Laboratory Tests Test 09/10/19 01:45 09/10/19 04:30 09/10/19 06:30 Vancomycin Level Trough 13.9 ug/mL (5.0-12.0) H White Blood Count 6.6 K/UL (4.8-10.8) 6.5 K/UL (4.8-10.8) Red Blood Count 2.47 M/UL (4.70-6.10) L 2.67 M/UL (4.70-6.10) L Hemoglobin 6.4 G/DL (14.2-18.0) *L 7.0 G/DL (14.2-18.0) L Hematocrit 20.3 % (42.0-52.0) L 22.1 % (42.0-52.0) L Mean Corpuscular Volume 82 FL (80-99) 83 FL (80-99) Mean Corpuscular Hemoglobin 25.9 PG (27.0-31.0) L 26.4 PG (27.0-31.0) L Mean Corpuscular Hemoglobin Concent 31.4 G/DL (32.0-36.0) L 31.9 G/DL (32.0-36.0) L Red Cell Distribution Width 20.2 % (11.6-14.8) H 20.9 % (11.6-14.8) H Platelet Count 144 K/UL (150-450) L 155 K/UL (150-450) Mean Platelet Volume 6.4 FL (6.5-10.1) L 7.7 FL (6.5-10.1) Neutrophils (%) (Auto) % (45.0-75.0) % (45.0-75.0) Lymphocytes (%) (Auto) % (20.0-45.0) % (20.0-45.0) Monocytes (%) (Auto) % (1.0-10.0) % (1.0-10.0) Eosinophils (%) (Auto) % (0.0-3.0) % (0.0-3.0) Basophils (%) (Auto) % (0.0-2.0) % (0.0-2.0) Differential Total Cells Counted 100 100 Neutrophils % (Manual) 72 % (45-75) 65 % (45-75) Lymphocytes % (Manual) 16 % (20-45) L 25 % (20-45) Monocytes % (Manual) 8 % (1-10) 6 % (1-10) Eosinophils % (Manual) 4 % (0-3) H 4 % (0-3) H Basophils % (Manual) 0 % (0-2) 0 % (0-2) Band Neutrophils 0 % (0-8) 0 % (0-8) Platelet Estimate Decreased L Adequate Platelet Morphology Normal Normal Hypochromasia 4+ 1+ Anisocytosis 2+ 2+ Erythrocyte Sedimentation Rate 140 MM/HR (0-20) H Prothrombin Time 11.0 SEC (9.30-11.50) Prothromb Time International Ratio 1.0 (0.9-1.1) Activated Partial Thromboplast Time 31 SEC (23-33) Sodium Level 147 MMOL/L (136-145) H Potassium Level 3.5 MMOL/L (3.5-5.1) Chloride Level 112 MMOL/L (98-107) H Carbon Dioxide Level 24 MMOL/L (21-32) Anion Gap 11 mmol/L (5-15) Blood Urea Nitrogen 49 mg/dL (7-18) H Creatinine 1.6 MG/DL (0.55-1.30) H Estimat Glomerular Filtration Rate 49.9 mL/min (>60) Glucose Level 64 MG/DL (74-106) L Uric Acid 5.4 MG/DL (2.6-7.2) Calcium Level 8.8 MG/DL (8.5-10.1) Phosphorus Level 3.8 MG/DL (2.5-4.9) Magnesium Level 2.2 MG/DL (1.8-2.4) Total Bilirubin 0.5 MG/DL (0.2-1.0) Gamma Glutamyl Transpeptidase 99 U/L (5-85) H Aspartate Amino Transf (AST/SGOT) 83 U/L (15-37) H Alanine Aminotransferase (ALT/SGPT) 88 U/L (12-78) H Alkaline Phosphatase 184 U/L (46-116) H C-Reactive Protein, Quantitative 21.8 mg/dL (0.00-0.90) H Total Protein 6.9 G/DL (6.4-8.2) Albumin 1.8 G/DL (3.4-5.0) L Globulin 5.1 g/dL Albumin/Globulin Ratio 0.4 (1.0-2.7) L Thyroid Stimulating Hormone (TSH) 13.085 uiU/mL (0.358-3.740) Current Medications Medications (Trade) Dose Ordered Sig/Kike Route PRN Reason Start Time Stop Time Status Last Admin Dose Admin Acetaminophen (Tylenol) 650 mg Q4H PRN ORAL fever 09/09/19 04:30 10/07/19 04:29 Albuterol/ Ipratropium (Albuterol/ Ipratropium) 3 ml Q4H PRN HHN Shortness of Breath 09/09/19 04:30 09/14/19 04:29 Alprazolam (Xanax) 0.5 mg Q6H PRN ORAL For Anxiety 09/09/19 04:30 09/14/19 04:29 Amlodipine Besylate (Norvasc) 2.5 mg DAILY ORAL 09/09/19 09:00 10/07/19 08:59 09/10/19 08:09 Cefepime HCl 1 gm/ Dextrose 55 ml @ 110 mls/hr Q24H IV 09/10/19 09:00 09/17/19 08:59 09/10/19 08:09 Heparin Sodium (Porcine) (Heparin 5000 units/ml) 5,000 units EVERY 12 HOURS SUBQ 09/09/19 09:00 10/22/19 08:59 09/09/19 20:52 Levothyroxine Sodium (Synthroid) 25 mcg DAILY@0630 ORAL 09/09/19 06:30 10/07/19 08:29 09/10/19 06:05 Mirtazapine (Remeron) 7.5 mg BEDTIME ORAL 09/09/19 21:00 12/06/19 20:59 Nitroglycerin (Ntg) 0.4 mg Q5M PRN SL Prn Chest Pain 09/09/19 04:30 10/07/19 04:29 Ondansetron HCl (Zofran) 4 mg Q6H PRN IVP Nausea & Vomiting 09/09/19 04:30 10/07/19 04:29 Pantoprazole (Protonix) 40 mg DAILY IVP 09/10/19 09:00 10/10/19 08:59 09/10/19 08:09 Polyethylene Glycol (Miralax) 17 gm DAILYPRN PRN ORAL Constipation 09/09/19 04:30 10/07/19 04:29 Promethazine HCl/ Codeine (Phenergan with Codeine) 5 ml Q4H PRN ORAL For Cough 09/09/19 04:30 10/07/19 04:29 Quetiapine Fumarate (SEROqueL) 25 mg Q8HR ORAL 09/09/19 06:00 10/22/19 08:14 09/09/19 14:07 Sodium Chloride 1,000 ml @ 75 mls/hr [id number] IV 09/09/19 14:00 10/09/19 13:59 09/10/19 03:11 Temazepam (Restoril) 15 mg HSPRN PRN ORAL Insomnia 09/09/19 08:15 09/14/19 08:14 Vancomycin HCl (Vanco rx to dose) 1 ea DAILY PRN MISC Per rx protocol 09/09/19 09:00 10/07/19 08:14 Vancomycin HCl 1 gm/Dextrose 275 ml @ 183.708 mls/hr Q24H IVPB 09/11/19 00:00 09/16/19 00:00 Alexander Lock MD Sep 10, 2019 13:25
--- NOTE | 2019-09-10 14:36 | Surgery Progress Note ---
Surgery Progress Note Subjective Additional Comments ill appearing on vent support declined a bit labs noted lf't's elevated covid retesting pending as per ID Objective Last 24 Hour Vital Signs Date Time Temp Pulse Resp B/P (MAP) Pulse Ox O2 Delivery O2 Flow Rate FiO2 09/10/19 14:00 64 14 118/43 (68) 100 09/10/19 13:07 62 14 40 09/10/19 13:00 69 17 129/44 (72) 100 09/10/19 12:10 57 09/10/19 12:00 Mechanical Ventilator 09/10/19 12:00 98.5 59 14 110/39 (62) 100 09/10/19 11:14 62 14 40 09/10/19 11:00 64 15 111/42 (65) 100 09/10/19 10:00 65 15 125/43 (70) 100 09/10/19 09:00 65 14 121/39 (66) 100 09/10/19 08:50 62 15 50 09/10/19 08:22 63 09/10/19 08:09 64 117/44 09/10/19 08:00 99.5 68 17 117/44 (68) 100 09/10/19 08:00 Mechanical Ventilator 09/10/19 07:03 77 15 60 09/10/19 07:00 72 14 130/41 (70) 100 09/10/19 06:00 65 14 126/49 (74) 100 09/10/19 05:30 65 14 114/45 (68) 100 09/10/19 05:25 67 17 60 09/10/19 05:00 98.5 68 14 121/42 (68) 100 09/10/19 04:30 66 14 110/40 (63) 91 09/10/19 04:00 65 14 108/42 (64) 99 09/10/19 04:00 Mechanical Ventilator 09/10/19 04:00 65 09/10/19 03:31 64 14 60 09/10/19 03:30 71 14 110/38 (62) 09/10/19 03:00 67 14 119/40 (66) 98 09/10/19 02:00 73 14 108/40 (62) 91 09/10/19 01:30 70 14 96/37 (56) 100 09/10/19 01:00 74 14 122/41 (68) 91 09/10/19 00:41 73 14 60 09/10/19 00:30 72 14 108/40 (62) 100 09/10/19 00:00 Mechanical Ventilator 09/10/19 00:00 98.5 75 14 103/37 (59) 100 09/09/19 23:00 75 14 93/36 (55) 09/09/19 22:37 79 14 60 09/09/19 22:30 73 14 118/42 (67) 100 09/09/19 22:00 73 14 93/43 (60) 09/09/19 21:30 71 14 104/42 (62) 100 09/09/19 21:00 70 14 97/48 (64) 100 09/09/19 20:30 67 13 90/45 (60) 100 09/09/19 20:00 98.6 68 14 91/38 (55) 100 09/09/19 20:00 68 09/09/19 20:00 Mechanical Ventilator 09/09/19 19:02 67 14 100/35 (56) 09/09/19 19:00 69 14 84/33 (50) 100 09/09/19 18:48 65 14 60 09/09/19 18:00 60 14 85/37 (53) 100 09/09/19 17:00 94 22 121/68 (85) 09/09/19 16:43 68 14 60 09/09/19 16:00 69 09/09/19 16:00 99.4 67 14 100/36 (57) 100 09/09/19 16:00 Mechanical Ventilator 09/09/19 15:00 68 14 96/41 (59) I&O Intake and Output 09/09/19 09/10/19 19:00 07:00 Intake Total 385 ml 930 ml Output Total 510 ml 270 ml Balance -125 ml 660 ml Intake IV Total 375 ml 825 ml Tube Feeding 10 ml 105 ml Output Urine Total 510 ml 270 ml # Bowel Movements 6 Dressing: other Wound: other Drains: other Cardiovascular: RSR Respiratory: decreased breath sounds Abdomen: soft, non-tender, present bowel sounds Extremities: edema, no tenderness, no cyanosis, other Laboratory Tests Test 09/10/19 01:45 09/10/19 04:30 09/10/19 06:30 Vancomycin Level Trough 13.9 ug/mL (5.0-12.0) H White Blood Count 6.6 K/UL (4.8-10.8) 6.5 K/UL (4.8-10.8) Red Blood Count 2.47 M/UL (4.70-6.10) L 2.67 M/UL (4.70-6.10) L Hemoglobin 6.4 G/DL (14.2-18.0) *L 7.0 G/DL (14.2-18.0) L Hematocrit 20.3 % (42.0-52.0) L 22.1 % (42.0-52.0) L Mean Corpuscular Volume 82 FL (80-99) 83 FL (80-99) Mean Corpuscular Hemoglobin 25.9 PG (27.0-31.0) L 26.4 PG (27.0-31.0) L Mean Corpuscular Hemoglobin Concent 31.4 G/DL (32.0-36.0) L 31.9 G/DL (32.0-36.0) L Red Cell Distribution Width 20.2 % (11.6-14.8) H 20.9 % (11.6-14.8) H Platelet Count 144 K/UL (150-450) L 155 K/UL (150-450) Mean Platelet Volume 6.4 FL (6.5-10.1) L 7.7 FL (6.5-10.1) Neutrophils (%) (Auto) % (45.0-75.0) % (45.0-75.0) Lymphocytes (%) (Auto) % (20.0-45.0) % (20.0-45.0) Monocytes (%) (Auto) % (1.0-10.0) % (1.0-10.0) Eosinophils (%) (Auto) % (0.0-3.0) % (0.0-3.0) Basophils (%) (Auto) % (0.0-2.0) % (0.0-2.0) Differential Total Cells Counted 100 100 Neutrophils % (Manual) 72 % (45-75) 65 % (45-75) Lymphocytes % (Manual) 16 % (20-45) L 25 % (20-45) Monocytes % (Manual) 8 % (1-10) 6 % (1-10) Eosinophils % (Manual) 4 % (0-3) H 4 % (0-3) H Basophils % (Manual) 0 % (0-2) 0 % (0-2) Band Neutrophils 0 % (0-8) 0 % (0-8) Platelet Estimate Decreased L Adequate Platelet Morphology Normal Normal Hypochromasia 4+ 1+ Anisocytosis 2+ 2+ Erythrocyte Sedimentation Rate 140 MM/HR (0-20) H Prothrombin Time 11.0 SEC (9.30-11.50) Prothromb Time International Ratio 1.0 (0.9-1.1) Activated Partial Thromboplast Time 31 SEC (23-33) Sodium Level 147 MMOL/L (136-145) H Potassium Level 3.5 MMOL/L (3.5-5.1) Chloride Level 112 MMOL/L (98-107) H Carbon Dioxide Level 24 MMOL/L (21-32) Anion Gap 11 mmol/L (5-15) Blood Urea Nitrogen 49 mg/dL (7-18) H Creatinine 1.6 MG/DL (0.55-1.30) H Estimat Glomerular Filtration Rate 49.9 mL/min (>60) Glucose Level 64 MG/DL (74-106) L Uric Acid 5.4 MG/DL (2.6-7.2) Calcium Level 8.8 MG/DL (8.5-10.1) Phosphorus Level 3.8 MG/DL (2.5-4.9) Magnesium Level 2.2 MG/DL (1.8-2.4) Total Bilirubin 0.5 MG/DL (0.2-1.0) Gamma Glutamyl Transpeptidase 99 U/L (5-85) H Aspartate Amino Transf (AST/SGOT) 83 U/L (15-37) H Alanine Aminotransferase (ALT/SGPT) 88 U/L (12-78) H Alkaline Phosphatase 184 U/L (46-116) H C-Reactive Protein, Quantitative 21.8 mg/dL (0.00-0.90) H Total Protein 6.9 G/DL (6.4-8.2) Albumin 1.8 G/DL (3.4-5.0) L Globulin 5.1 g/dL Albumin/Globulin Ratio 0.4 (1.0-2.7) L Thyroid Stimulating Hormone (TSH) 13.085 uiU/mL (0.358-3.740) Plan Problems: (1) UTI (urinary tract infection) (2) Acute respiratory failure Assessment & Plan: There is infiltrate suspected in the right perihilar region obscuring the right hilum. There is a hazy opacity that may partially be accounted for by pleural fluid on the right. Reticular densities are present on the left in the perihilar aspect of the lung. Endotracheal tube is in good position just above the anselmo. Heart size is normal. IMPRESSION: Suspected perihilar airspace disease in the right lung suspicious for pneumonia. Reticular nodular infiltrate in the left lung noted also. Right pleural effusion suspected. Endotracheal tube in good position cont vents support (3) Sepsis Assessment & Plan: Pt cachetic and presented on admission with multiple pressure injuries. Partial thickness pressure injury Cleft of L ear(L)1.2cm x (W)0.4cm. Base of wound moist and viable with small amt sanguineous exudate. Partial thickness pressure injury cleft of R ear(L)0.5cm x (W)0.7cm. Base of wound moist and viable Periwound erythematous.Small amt sanguineous exudate noted. Sacral DTPI(L)5cm x (W)10.5cm. Base of injury is purple with maroon borders. Coccygeal bony protrusion with darker skin tone, and small opening noted to R gluteus (L)0.5cm x (W)0.5cm within base of injury. No further skin breakdown periwound. Intact blood blister noted to R 1st metatarsal head(L)1.1cm x (W)2.5cm. DTPI noted to L heel extending into plantar aspect. Base of injury presents as an intact blood filled blister. Periwound is boggy with non-blanching erythema. R heel is boggy but blanchable. wounds unlikely etiology of sepsis respiratory but given current condition high risk for breakdown and worsening will monitor closely discussed with RN and staff great care being provided Tx.Plan: Apply Betadine to clefts of R and L ears. Pad oxygen tubing with gauze and keep oxygen tubing loose. Apply Moisture Barrier Paste to Sacrum. Cover with Optifoam drsg. Change every 3 days and prn. Apply Betadine to L heel. Cover with Optifoam drsg. Change every 3 days and prn. Apply Betadine to R 1st metatarsal head. Cover with Optifoam drsg. Change every 3 days and prn. Apply Cavilon Skin Barrier R heel. Cover with Optifoam drsg. Change every 7 days and prn. Reposition at least every 2hours or as tolerated. Off-load heels with pillow. (4) Severe anemia (5) Nosocomial pneumonia (6) Atrial fibrillation (7) Acute metabolic encephalopathy (8) History of CVA (cerebrovascular accident) (9) Diabetes mellitus (10) Hypothyroidism (11) Alzheimer's dementia (12) PVC (premature ventricular contraction) (13) Hypertension (14) Squamous cell esophageal cancer (15) Feeding by G-tube (16) Dehydration (17) Anemia (18) Severe malnutrition Assessment & Plan: Pt cachetic and presented on admission with multiple pressure injuries. Partial thickness pressure injury Cleft of L ear(L)1.2cm x (W )0.4cm. Base of wound moist and viable with small amt sanguineous exudate. Partial thickness pressure injury cleft of R ear(L)0.5cm x (W)0.7cm. Base of wound moist and viable Periwound erythematous.Small amt sanguineous exudate noted. Sacral DTPI(L)5cm x (W)10.5cm. Base of injury is purple with maroon borders. Coccygeal bony protrusion with darker skin tone, and small opening noted to R gluteus (L)0.5cm x (W)0.5cm within base of injury. No further skin breakdown periwound. Intact blood blister noted to R 1st metatarsal head(L)1.1cm x (W)2.5cm. DTPI noted to L heel extending into plantar aspect. Base of injury presents as an intact blood filled blister. Periwound is boggy with non-blanching erythema. R heel is boggy but blanchable. Tx.Plan: Apply Betadine to clefts of R and L ears. Pad oxygen tubing with gauze and keep oxygen tubing loose. Apply Moisture Barrier Paste to Sacrum. Cover with Optifoam drsg. Change every 3 days and prn. Apply Betadine to L heel. Cover with Optifoam drsg. Change every 3 days and prn. Apply Betadine to R 1st metatarsal head. Cover with Optifoam drsg. Change every 3 days and prn. Apply Cavilon Skin Barrier R heel. Cover with Optifoam drsg. Change every 7 days and prn. Reposition at least every 2hours or as tolerated. Off-load heels with pillow. (19) Encounter for PEG (percutaneous endoscopic gastrostomy) (20) At high risk for aspiration (21) Pleural effusion (22) Suspected COVID-19 virus infection Jan Mora Sep 10, 2019 14:36
--- NOTE | 2019-09-10 15:35 | Internal Med Progress Note ---
Subjective Date of Service: Sep 10, 2019 Physician Name NiurkaXander Attending Physician Lamont Hayes MD Current Medications Medications (Trade) Dose Ordered Sig/Kike Route PRN Reason Start Time Stop Time Status Last Admin Dose Admin Acetaminophen (Tylenol) 650 mg Q4H PRN ORAL fever 09/09/19 04:30 10/07/19 04:29 Albuterol/ Ipratropium (Albuterol/ Ipratropium) 3 ml Q4H PRN HHN Shortness of Breath 09/09/19 04:30 09/14/19 04:29 Alprazolam (Xanax) 0.5 mg Q6H PRN ORAL For Anxiety 09/09/19 04:30 09/14/19 04:29 Amlodipine Besylate (Norvasc) 2.5 mg DAILY ORAL 09/09/19 09:00 10/07/19 08:59 09/10/19 08:09 Cefepime HCl 1 gm/ Dextrose 55 ml @ 110 mls/hr Q24H IV 09/10/19 09:00 09/17/19 08:59 09/10/19 08:09 Heparin Sodium (Porcine) (Heparin 5000 units/ml) 5,000 units EVERY 12 HOURS SUBQ 09/09/19 09:00 10/22/19 08:59 09/09/19 20:52 Levothyroxine Sodium (Synthroid) 25 mcg DAILY@0630 ORAL 09/09/19 06:30 10/07/19 08:29 09/10/19 06:05 Mirtazapine (Remeron) 7.5 mg BEDTIME ORAL 09/09/19 21:00 12/06/19 20:59 Nitroglycerin (Ntg) 0.4 mg Q5M PRN SL Prn Chest Pain 09/09/19 04:30 10/07/19 04:29 Ondansetron HCl (Zofran) 4 mg Q6H PRN IVP Nausea & Vomiting 09/09/19 04:30 10/07/19 04:29 Pantoprazole (Protonix) 40 mg DAILY IVP 09/10/19 09:00 10/10/19 08:59 09/10/19 08:09 Polyethylene Glycol (Miralax) 17 gm DAILYPRN PRN ORAL Constipation 09/09/19 04:30 10/07/19 04:29 Promethazine HCl/ Codeine (Phenergan with Codeine) 5 ml Q4H PRN ORAL For Cough 09/09/19 04:30 10/07/19 04:29 Quetiapine Fumarate (SEROqueL) 25 mg Q8HR ORAL 09/09/19 06:00 10/22/19 08:14 09/10/19 14:13 Sodium Chloride 1,000 ml @ 75 mls/hr [id number] IV 09/09/19 14:00 10/09/19 13:59 09/10/19 03:11 Temazepam (Restoril) 15 mg HSPRN PRN ORAL Insomnia 09/09/19 08:15 09/14/19 08:14 Allergies: Coded Allergies: PENICILLINS (Verified Allergy, Unknown, 10/27/18) tolretas cephalosporins ROS Limited/Unobtainable: Yes Subjective 84 YO M admitted with cough and congestion. Now right pleural effusion and pneumonia. Cover for Int Med-Dr Hayes. ICU. Intubated and sedated Objective Last Vital Signs Date Time Temp Pulse Resp B/P (MAP) Pulse Ox O2 Delivery O2 Flow Rate FiO2 09/10/19 15:07 57 14 40 09/10/19 15:00 121/39 (66) 100 09/10/19 12:00 Mechanical Ventilator 09/10/19 12:00 98.5 09/08/19 21:00 2.0 Laboratory Tests Test 09/10/19 01:45 09/10/19 04:30 09/10/19 06:30 Vancomycin Level Trough 13.9 ug/mL (5.0-12.0) H White Blood Count 6.6 K/UL (4.8-10.8) 6.5 K/UL (4.8-10.8) Red Blood Count 2.47 M/UL (4.70-6.10) L 2.67 M/UL (4.70-6.10) L Hemoglobin 6.4 G/DL (14.2-18.0) *L 7.0 G/DL (14.2-18.0) L Hematocrit 20.3 % (42.0-52.0) L 22.1 % (42.0-52.0) L Mean Corpuscular Volume 82 FL (80-99) 83 FL (80-99) Mean Corpuscular Hemoglobin 25.9 PG (27.0-31.0) L 26.4 PG (27.0-31.0) L Mean Corpuscular Hemoglobin Concent 31.4 G/DL (32.0-36.0) L 31.9 G/DL (32.0-36.0) L Red Cell Distribution Width 20.2 % (11.6-14.8) H 20.9 % (11.6-14.8) H Platelet Count 144 K/UL (150-450) L 155 K/UL (150-450) Mean Platelet Volume 6.4 FL (6.5-10.1) L 7.7 FL (6.5-10.1) Neutrophils (%) (Auto) % (45.0-75.0) % (45.0-75.0) Lymphocytes (%) (Auto) % (20.0-45.0) % (20.0-45.0) Monocytes (%) (Auto) % (1.0-10.0) % (1.0-10.0) Eosinophils (%) (Auto) % (0.0-3.0) % (0.0-3.0) Basophils (%) (Auto) % (0.0-2.0) % (0.0-2.0) Differential Total Cells Counted 100 100 Neutrophils % (Manual) 72 % (45-75) 65 % (45-75) Lymphocytes % (Manual) 16 % (20-45) L 25 % (20-45) Monocytes % (Manual) 8 % (1-10) 6 % (1-10) Eosinophils % (Manual) 4 % (0-3) H 4 % (0-3) H Basophils % (Manual) 0 % (0-2) 0 % (0-2) Band Neutrophils 0 % (0-8) 0 % (0-8) Platelet Estimate Decreased L Adequate Platelet Morphology Normal Normal Hypochromasia 4+ 1+ Anisocytosis 2+ 2+ Erythrocyte Sedimentation Rate 140 MM/HR (0-20) H Prothrombin Time 11.0 SEC (9.30-11.50) Prothromb Time International Ratio 1.0 (0.9-1.1) Activated Partial Thromboplast Time 31 SEC (23-33) Sodium Level 147 MMOL/L (136-145) H Potassium Level 3.5 MMOL/L (3.5-5.1) Chloride Level 112 MMOL/L (98-107) H Carbon Dioxide Level 24 MMOL/L (21-32) Anion Gap 11 mmol/L (5-15) Blood Urea Nitrogen 49 mg/dL (7-18) H Creatinine 1.6 MG/DL (0.55-1.30) H Estimat Glomerular Filtration Rate 49.9 mL/min (>60) Glucose Level 64 MG/DL (74-106) L Uric Acid 5.4 MG/DL (2.6-7.2) Calcium Level 8.8 MG/DL (8.5-10.1) Phosphorus Level 3.8 MG/DL (2.5-4.9) Magnesium Level 2.2 MG/DL (1.8-2.4) Total Bilirubin 0.5 MG/DL (0.2-1.0) Gamma Glutamyl Transpeptidase 99 U/L (5-85) H Aspartate Amino Transf (AST/SGOT) 83 U/L (15-37) H Alanine Aminotransferase (ALT/SGPT) 88 U/L (12-78) H Alkaline Phosphatase 184 U/L (46-116) H C-Reactive Protein, Quantitative 21.8 mg/dL (0.00-0.90) H Total Protein 6.9 G/DL (6.4-8.2) Albumin 1.8 G/DL (3.4-5.0) L Globulin 5.1 g/dL Albumin/Globulin Ratio 0.4 (1.0-2.7) L Thyroid Stimulating Hormone (TSH) 13.085 uiU/mL (0.358-3.740) Intake and Output 09/09/19 09/10/19 19:00 07:00 Intake Total 385 ml 930 ml Output Total 510 ml 270 ml Balance -125 ml 660 ml Intake IV Total 375 ml 825 ml Tube Feeding 10 ml 105 ml Output Urine Total 510 ml 270 ml # Bowel Movements 6 Objective PHYSICAL EXAMINATION: GENERAL: The patient is a thin-appearing male, in no apparent distress. HEENT: Eyes, pupils are equal and responsive to light and accommodation. Extraocular movements are intact. NECK: Supple without lymphadenopathy. CHEST: Mech vent; Lungs are clear to auscultation bilaterally with decreased breath sounds on the right. There are no wheezes appreciated. ABDOMEN: Soft, nontender, and nondistended. Positive bowel sounds. No evidence of hepatosplenomegaly. Currently, no rebound or guarding noted. EXTREMITIES: Negative for clubbing, cyanosis, or edema. RECTAL/GENITAL: Not performed. NEUROLOGIC: Cranial nerves II through XII are grossly intact without focal deficits. Assessment/Plan Assessment/Plan ASSESSMENT: This is an 84-year-old male with: 1. Possible right pneumonia=pseudamonas 2. Urinary tract infection=jennifer 3. Right pleural effusion. 4. Esophageal mass. 5. Dysphagia. 6. Diabetes. 7. Alzheimer's dementia. 8. Cerebrovascular disease. 9. Hypothyroidism. 10. Seizure disorder. 11. Iron deficiency anemia. TREATMENT: 1. Right perihilar Pneumonia/pleural effusion. COVID 19 and Influenza negative. A Pulmonary consultation has been obtained with Dr. Vania Hui. The patient underwent thoracentesis during previous hospitalization. We will follow recommendation of Pulmonary. Continue vanco and cefepime per ID=Dr Matias 2. Urinary tract infection. The patient has been started empirically on vancomycin and cefepime. A urine culture is pending. 3. Right pleural effusion. As above, a Pulmonary consultation has been obtained with Dr. Vania Hui. The patient may require thoracentesis during this hospitalization. 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 A Gastroenterology consultation has been obtained with Dr. Darrick Rosario. 5. Dysphagia. The patient is status post PEG placement on 08/08/[address] [facility] by Dr. Darrick Rosario. 6. Diabetes type 2. A NovoLog sliding scale has been instituted. 7. Alzheimer's dementia. 8. Cerebrovascular disease, status post cerebrovascular accident. 9. Hypothyroidism. Continue levothyroxine as above. 10. Seizure disorder. 11. Iron deficiency anemia. Xander Bah MD Sep 10, 2019 15:35
[2019-09-10 22:54] LABS: HEMATOCRIT 23.4 % (42.0-52.0); HEMOGLOBIN 7.1 G/DL (14.2-18.0); MEAN CORPUSCULAR VOLUME 84 FL (80-99); PLATELET COUNT 155 K/UL (150-450); RED BLOOD COUNT 2.78 M/UL (4.70-6.10); RED CELL DISTRIBUTION WIDTH 22.7 % (11.6-14.8); WHITE BLOOD COUNT 5.7 K/UL (4.8-10.8)
[2019-09-11] VITALS (24 sets, daily range): BP systolic 114–157; BP diastolic 38–101
[2019-09-11] MEDS ORDERED: Vancomycin 1gm/D5W 275ml IVPB SCH ×2
--- NOTE | 2019-09-11 06:33 | Pulmonolgy Critical Care Note ---
Critical Care - Asmt/Plan Problems: (1) Acute respiratory failure (2) Suspected COVID-19 virus infection (3) Nosocomial pneumonia (4) Sepsis (5) Diabetes mellitus (6) At high risk for aspiration (7) Severe malnutrition (8) Feeding by G-tube (9) Squamous cell esophageal cancer (10) Alzheimer's dementia (11) History of CVA (cerebrovascular accident) Respiratory: monitor respiratory rate, adjust FIO2, CXR Cardiac: continue to monitor HR/BP Renal: F/U I&O, check electrolytes Infectious Disease: check cultures Gastrointestinal: adjust feedings Endocrine: monitor blood sugar Hematologic: monitor H/H Neurologic: PRN Ativan, PRN Morphine, keep patient comfortable Time Spent (Minutes): 40 Notes 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, 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 with: nurses, consultants, case management managerradiation oncology manager - Objective Last 24 Hour Vital Signs Date Time Temp Pulse Resp B/P (MAP) Pulse Ox O2 Delivery O2 Flow Rate FiO2 09/11/19 06:00 71 19 154/50 (84) 100 09/11/19 05:18 67 17 40 09/11/19 05:00 58 14 142/73 (96) 100 09/11/19 04:00 56 09/11/19 04:00 97.7 57 14 139/44 (75) 100 09/11/19 04:00 Mechanical Ventilator 09/11/19 03:13 59 14 40 09/11/19 03:00 58 14 118/101 (107) 100 09/11/19 02:00 62 14 130/45 (73) 100 09/11/19 01:00 74 18 131/85 (100) 100 09/11/19 00:48 63 15 40 09/11/19 00:00 97.8 62 16 114/39 (64) 99 09/11/19 00:00 Mechanical Ventilator 09/10/19 23:10 61 14 40 09/10/19 23:00 64 18 121/43 (69) 99 09/10/19 22:00 57 14 105/41 (62) 100 09/10/19 21:11 61 14 40 09/10/19 21:00 59 14 110/30 (56) 100 09/10/19 20:00 Mechanical Ventilator 09/10/19 20:00 60 14 124/40 (68) 99 09/10/19 20:00 60 09/10/19 19:17 58 14 40 09/10/19 19:00 97.9 57 14 102/41 (61) 100 09/10/19 18:00 81 19 135/58 (83) 100 09/10/19 17:00 68 21 132/44 (73) 100 09/10/19 16:58 61 14 40 09/10/19 16:00 98.2 59 14 111/39 (63) 100 09/10/19 16:00 Mechanical Ventilator 09/10/19 15:23 52 09/10/19 15:07 57 14 40 09/10/19 15:00 59 14 121/39 (66) 100 09/10/19 14:00 64 14 118/43 (68) 100 09/10/19 13:07 62 14 40 09/10/19 13:00 69 17 129/44 (72) 100 09/10/19 12:10 57 09/10/19 12:00 Mechanical Ventilator 09/10/19 12:00 98.5 59 14 110/39 (62) 100 09/10/19 11:14 62 14 40 09/10/19 11:00 64 15 111/42 (65) 100 09/10/19 10:00 65 15 125/43 (70) 100 09/10/19 09:00 65 14 121/39 (66) 100 09/10/19 08:50 62 15 50 09/10/19 08:22 63 09/10/19 08:09 64 117/44 09/10/19 08:00 99.5 68 17 117/44 (68) 100 09/10/19 08:00 Mechanical Ventilator 09/10/19 07:03 77 15 60 09/10/19 07:00 72 14 130/41 (70) 100 Status: awake Condition: critical HEENT: atraumatic Neck: full ROM Lungs: clear Heart: HR/BP stable Abdomen: soft, non-tender, feeding tube Extremities: no C/C/E, edema Critical Care - Subjective ROS Limited/Unobtainable: Yes Interval Events: sedated, looks comfortable Condition: critical EKG Rhythm: Sinus Rhythm FI02: 40 Vent Support Breath Rate: 14 Vent Support Mode: AC Vent Tidal Volume: 550 Sputum Amount: Small PEEP: 5.0 PIP: 36 Tube Feeding Amount: 0 I&O: Intake and Output 09/10/19 09/11/19 19:00 07:00 Intake Total 1240 ml 1395 ml Output Total 1065 ml 605 ml Balance 175 ml 790 ml Intake IV Total 880 ml 825 ml Tube Feeding 360 ml 570 ml Output Urine Total 1065 ml 605 ml CXR: extensive infiltrate, ET in good position Labs: Laboratory Tests Test 09/10/19 18:00 09/10/19 18:08 09/10/19 22:15 Stool Occult Blood Pending Urine Random Sodium 35 mmol/L (20-110) White Blood Count 5.7 K/UL (4.8-10.8) Red Blood Count 2.78 M/UL (4.70-6.10) L Hemoglobin 7.1 G/DL (14.2-18.0) L Hematocrit 23.4 % (42.0-52.0) L Mean Corpuscular Volume 84 FL (80-99) Mean Corpuscular Hemoglobin 25.7 PG (27.0-31.0) L Mean Corpuscular Hemoglobin Concent 30.5 G/DL (32.0-36.0) L Red Cell Distribution Width 22.7 % (11.6-14.8) H Platelet Count 155 K/UL (150-450) Mean Platelet Volume 7.2 FL (6.5-10.1) Neutrophils (%) (Auto) % (45.0-75.0) Lymphocytes (%) (Auto) % (20.0-45.0) Monocytes (%) (Auto) % (1.0-10.0) Eosinophils (%) (Auto) % (0.0-3.0) Basophils (%) (Auto) % (0.0-2.0) Differential Total Cells Counted 100 Neutrophils % (Manual) 63 % (45-75) Lymphocytes % (Manual) 18 % (20-45) L Monocytes % (Manual) 9 % (1-10) Eosinophils % (Manual) 6 % (0-3) H Basophils % (Manual) 0 % (0-2) Band Neutrophils 4 % (0-8) Platelet Estimate Adequate Platelet Morphology Normal Hypochromasia 1+ Anisocytosis 2+ Vania Hui MD Sep 11, 2019 06:33
[2019-09-11] MEDS: Levothyroxine 25mcg tab ORAL SCH (06:46)
[2019-09-11 07:13] LABS: HEMATOCRIT 23.9 % (42.0-52.0); HEMOGLOBIN 7.5 G/DL (14.2-18.0); MEAN CORPUSCULAR VOLUME 82 FL (80-99); PLATELET COUNT 167 K/UL (150-450); RED CELL DISTRIBUTION WIDTH 20.3 % (11.6-14.8); WHITE BLOOD COUNT 5.6 K/UL (4.8-10.8)
[2019-09-11] MEDS: Heparin 5000 units/ml inj SUBQ SCH ×2 (08:35→21:47)
[2019-09-11 08:43] LABS: ALANINE AMINOTRANSFERASE 80 U/L (12-78); ALBUMIN 1.8 G/DL (3.4-5.0); ALBUMIN/GLOBULIN RATIO 0.3 (1.0-2.7); ALKALINE PHOSPHATASE 198 U/L (46-116); ANION GAP 12 mmol/L (5-15); ASPARTATE AMINO TRANSFERASE 74 U/L (15-37); BILIRUBIN,TOTAL 0.5 MG/DL (0.2-1.0); BLOOD UREA NITROGEN 38 mg/dL (7-18); CALCIUM 8.9 MG/DL (8.5-10.1); CARBON DIOXIDE 22 MMOL/L (21-32); CHLORIDE 113 MMOL/L (98-107); CREATININE 1.3 MG/DL (0.55-1.30); LACTATE DEHYDROGENASE 193 U/L (81-234); PHOSPHORUS 2.9 MG/DL (2.5-4.9); POTASSIUM 3.5 MMOL/L (3.5-5.1); SODIUM 147 MMOL/L (136-145)
[2019-09-11 08:47] LABS: % IRON SATURATION 56 % (15-50); IRON 84 ug/dL (50-175); TOTAL IRON BINDING CAPACITY 150 ug/dL (250-450)
[2019-09-11] MEDS: Cefepime HCl 1 GM in D5W 55 ML IV SCH (08:59)
[2019-09-11] MEDS: Pantoprazole Inj IVP SCH ×2 (08:59→21:46)
--- NOTE | 2019-09-11 09:44 | Nephrology Progress Note ---
Assessment/Plan Problem List: (1) RAMAN (acute kidney injury) Assessment: Serum creatinine normalized with hydration (2) Dehydration (3) Suspected COVID-19 virus infection (4) Anemia (5) Sepsis (6) Diabetes mellitus (7) Hypothyroidism Assessment - Acute renal failure - Severe anemia - Sepsis, pneumonia, acute respiratory failure, suspected: Viewed 19 virus infection - Diabetes mellitus - Hypothyroidism - Feeding by G-tube - Squamous cell esophageal cancer - History of CVA (cerebrovascular accident) Plan Plan: Monitor renal parameters, serum creatinine lowered Increase Synthroid dose Change IV to half-normal saline Avoid nephrotoxic's as possible Ventilator management Urine studies Per orders Subjective ROS Limited/Unobtainable: Yes Objective Objective Last 24 Hour Vital Signs Date Time Temp Pulse Resp B/P (MAP) Pulse Ox O2 Delivery O2 Flow Rate FiO2 09/11/19 09:02 74 16 40 09/11/19 08:59 63 143/57 09/11/19 07:14 63 21 40 09/11/19 07:00 66 18 146/55 (85) 100 09/11/19 06:00 71 19 154/50 (84) 100 09/11/19 05:18 67 17 40 09/11/19 05:00 58 14 142/73 (96) 100 09/11/19 04:00 56 09/11/19 04:00 97.7 57 14 139/44 (75) 100 09/11/19 04:00 Mechanical Ventilator 09/11/19 03:13 59 14 40 09/11/19 03:00 58 14 118/101 (107) 100 09/11/19 02:00 62 14 130/45 (73) 100 09/11/19 01:00 74 18 131/85 (100) 100 09/11/19 00:48 63 15 40 09/11/19 00:00 97.8 62 16 114/39 (64) 99 09/11/19 00:00 Mechanical Ventilator 09/10/19 23:10 61 14 40 09/10/19 23:00 64 18 121/43 (69) 99 09/10/19 22:00 57 14 105/41 (62) 100 09/10/19 21:11 61 14 40 09/10/19 21:00 59 14 110/30 (56) 100 09/10/19 20:00 Mechanical Ventilator 09/10/19 20:00 60 14 124/40 (68) 99 09/10/19 20:00 60 09/10/19 19:17 58 14 40 09/10/19 19:00 97.9 57 14 102/41 (61) 100 09/10/19 18:00 81 19 135/58 (83) 100 09/10/19 17:00 68 21 132/44 (73) 100 09/10/19 16:58 61 14 40 09/10/19 16:00 98.2 59 14 111/39 (63) 100 09/10/19 16:00 Mechanical Ventilator 09/10/19 15:23 52 09/10/19 15:07 57 14 40 09/10/19 15:00 59 14 121/39 (66) 100 09/10/19 14:00 64 14 118/43 (68) 100 09/10/19 13:07 62 14 40 09/10/19 13:00 69 17 129/44 (72) 100 09/10/19 12:10 57 09/10/19 12:00 Mechanical Ventilator 09/10/19 12:00 98.5 59 14 110/39 (62) 100 09/10/19 11:14 62 14 40 09/10/19 11:00 64 15 111/42 (65) 100 09/10/19 10:00 65 15 125/43 (70) 100 Intake and Output 09/10/19 09/11/19 19:00 07:00 Intake Total 1240 ml 1395 ml Output Total 1065 ml 705 ml Balance 175 ml 690 ml Intake IV Total 880 ml 825 ml Tube Feeding 360 ml 570 ml Output Urine Total 1065 ml 705 ml Laboratory Tests 09/10/19 18:00: Stool Occult Blood [Pending] 09/10/19 18:08: Urine Random Sodium 35 09/10/19 22:15: White Blood Count 5.7, Red Blood Count 2.78L, Hemoglobin 7.1L, Hematocrit 23.4L , Mean Corpuscular Volume 84, Mean Corpuscular Hemoglobin 25.7L, Mean Corpuscular Hemoglobin Concent 30.5L, Red Cell Distribution Width 22.7H, Platelet Count 155, Mean Platelet Volume 7.2, Neutrophils (%) (Auto) , Lymphocytes (%) (Auto) , Monocytes (%) (Auto) , Eosinophils (%) (Auto) , Basophils (%) (Auto) , Differential Total Cells Counted 100, Neutrophils % ( Manual) 63, Lymphocytes % (Manual) 18L, Monocytes % (Manual) 9, Eosinophils % ( Manual) 6H, Basophils % (Manual) 0, Band Neutrophils 4, Platelet Estimate Adequate, Platelet Morphology Normal, Hypochromasia 1+, Anisocytosis 2+ 09/11/19 04:00: White Blood Count 5.6, Red Blood Count 2.90L, Hemoglobin 7.5L, Hematocrit 23.9L , Mean Corpuscular Volume 82, Mean Corpuscular Hemoglobin 25.8L, Mean Corpuscular Hemoglobin Concent 31.3L, Red Cell Distribution Width 20.3H, Platelet Count 167, Mean Platelet Volume 6.0L, Neutrophils (%) (Auto) , Lymphocytes (%) (Auto) , Monocytes (%) (Auto) , Eosinophils (%) (Auto) , Basophils (%) (Auto) , Neutrophils % (Manual) [Pending], Lymphocytes % (Manual) [Pending], Platelet Estimate [Pending], Platelet Morphology [Pending], Erythrocyte Sedimentation Rate [Pending], Reticulocyte Count [Pending], Prothrombin Time 10.3, Prothromb Time International Ratio 1.0, Activated Partial Thromboplast Time 30, Sodium Level 147H, Potassium Level 3.5, Chloride Level 113H, Carbon Dioxide Level 22, Anion Gap 12, Blood Urea Nitrogen 38H, Creatinine 1.3, Estimat Glomerular Filtration Rate > 60, Glucose Level 119H, Calcium Level 8.9, Phosphorus Level 2.9, Magnesium Level 2.2, Iron Level 84, Total Iron Binding Capacity 150L, Percent Iron Saturation 56H, Unsaturated Iron Binding 66L, Total Bilirubin 0.5, Aspartate Amino Transf (AST/SGOT) 74H, Alanine Aminotransferase (ALT/SGPT) 80H, Alkaline Phosphatase 198H, Lactate Dehydrogenase 193, C-Reactive Protein, Quantitative 16.1H, Total Protein 7.1, Albumin 1.8L, Globulin 5.3, Albumin/Globulin Ratio 0.3L, Carcinoembryonic Antigen [Pending], Vitamin B12 Level 1544H, Folate 19.6 Height (Feet): 5 Height (Inches): 11.00 Weight (Pounds): 157 General Appearance: no apparent distress EENT: other - Intubated and vented Cardiovascular: normal rate Respiratory/Chest: decreased breath sounds Abdomen: distended Clovis Benites MD Sep 11, 2019 09:44
--- NOTE | 2019-09-11 18:17 | Internal Med Progress Note ---
Subjective Date of Service: Sep 11, 2019 Physician Name NiurkaXander Attending Physician Lamont Hayes MD Current Medications Medications (Trade) Dose Ordered Sig/Kike Route PRN Reason Start Time Stop Time Status Last Admin Dose Admin Acetaminophen (Tylenol) 650 mg Q4H PRN ORAL fever 09/09/19 04:30 10/07/19 04:29 Albuterol/ Ipratropium (Albuterol/ Ipratropium) 3 ml Q4H PRN HHN Shortness of Breath 09/09/19 04:30 09/14/19 04:29 Alprazolam (Xanax) 0.5 mg Q6H PRN ORAL For Anxiety 09/09/19 04:30 09/14/19 04:29 Amlodipine Besylate (Norvasc) 2.5 mg DAILY ORAL 09/09/19 09:00 10/07/19 08:59 09/11/19 08:59 Cefepime HCl 1 gm/ Dextrose 55 ml @ 110 mls/hr Q24H IV 09/10/19 09:00 09/17/19 08:59 09/11/19 08:59 Heparin Sodium (Porcine) (Heparin 5000 units/ml) 5,000 units EVERY 12 HOURS SUBQ 09/09/19 09:00 10/22/19 08:59 09/09/19 20:52 Levothyroxine Sodium (Synthroid) 75 mcg DAILY@0630 ORAL 09/12/19 06:30 10/07/19 08:29 Mirtazapine (Remeron) 7.5 mg BEDTIME ORAL 09/09/19 21:00 12/06/19 20:59 09/10/19 21:25 Nitroglycerin (Ntg) 0.4 mg Q5M PRN SL Prn Chest Pain 09/09/19 04:30 10/07/19 04:29 Ondansetron HCl (Zofran) 4 mg Q6H PRN IVP Nausea & Vomiting 09/09/19 04:30 10/07/19 04:29 Pantoprazole (Protonix) 40 mg Q12HR IVP 09/11/19 21:00 10/10/19 08:59 Polyethylene Glycol (Miralax) 17 gm DAILYPRN PRN ORAL Constipation 09/09/19 04:30 10/07/19 04:29 Promethazine HCl/ Codeine (Phenergan with Codeine) 5 ml Q4H PRN ORAL For Cough 09/09/19 04:30 10/07/19 04:29 Quetiapine Fumarate (SEROqueL) 25 mg Q8HR ORAL 09/09/19 06:00 10/22/19 08:14 09/11/19 13:19 Sodium Chloride 1,000 ml @ 75 mls/hr [id number] IV 09/11/19 10:00 10/11/19 09:59 09/11/19 10:27 Temazepam (Restoril) 15 mg HSPRN PRN ORAL Insomnia 09/09/19 08:15 09/14/19 08:14 Allergies: Coded Allergies: PENICILLINS (Verified Allergy, Unknown, 10/27/18) tolretas cephalosporins ROS Limited/Unobtainable: Yes Subjective 84 YO M admitted with cough and congestion. Now right pleural effusion and pneumonia. Cover for Int Med-Dr Hayes. ICU. Intubated and sedated Objective Last Vital Signs Date Time Temp Pulse Resp B/P (MAP) Pulse Ox O2 Delivery O2 Flow Rate FiO2 09/11/19 18:00 57 15 141/49 (79) 100 09/11/19 16:42 40 09/11/19 16:00 98.5 09/11/19 16:00 Mechanical Ventilator 09/08/19 21:00 2.0 Laboratory Tests Test 09/10/19 22:15 09/11/19 04:00 White Blood Count 5.7 K/UL (4.8-10.8) 5.6 K/UL (4.8-10.8) Red Blood Count 2.78 M/UL (4.70-6.10) L 2.90 M/UL (4.70-6.10) L Hemoglobin 7.1 G/DL (14.2-18.0) L 7.5 G/DL (14.2-18.0) L Hematocrit 23.4 % (42.0-52.0) L 23.9 % (42.0-52.0) L Mean Corpuscular Volume 84 FL (80-99) 82 FL (80-99) Mean Corpuscular Hemoglobin 25.7 PG (27.0-31.0) L 25.8 PG (27.0-31.0) L Mean Corpuscular Hemoglobin Concent 30.5 G/DL (32.0-36.0) L 31.3 G/DL (32.0-36.0) L Red Cell Distribution Width 22.7 % (11.6-14.8) H 20.3 % (11.6-14.8) H Platelet Count 155 K/UL (150-450) 167 K/UL (150-450) Mean Platelet Volume 7.2 FL (6.5-10.1) 6.0 FL (6.5-10.1) L Neutrophils (%) (Auto) % (45.0-75.0) % (45.0-75.0) Lymphocytes (%) (Auto) % (20.0-45.0) % (20.0-45.0) Monocytes (%) (Auto) % (1.0-10.0) % (1.0-10.0) Eosinophils (%) (Auto) % (0.0-3.0) % (0.0-3.0) Basophils (%) (Auto) % (0.0-2.0) % (0.0-2.0) Differential Total Cells Counted 100 Neutrophils % (Manual) 63 % (45-75) 64 % (45-75) Lymphocytes % (Manual) 18 % (20-45) L 22 % (20-45) Monocytes % (Manual) 9 % (1-10) 7 % (1-10) Eosinophils % (Manual) 6 % (0-3) H 7 % (0-3) H Basophils % (Manual) 0 % (0-2) 0 % (0-2) Band Neutrophils 4 % (0-8) 0 % (0-8) Platelet Estimate Adequate Adequate Platelet Morphology Normal Normal Hypochromasia 1+ 1+ Anisocytosis 2+ 2+ Erythrocyte Sedimentation Rate 130 MM/HR (0-20) H Reticulocyte Count 0.6 % (0.5-2.0) Prothrombin Time 10.3 SEC (9.30-11.50) Prothromb Time International Ratio 1.0 (0.9-1.1) Activated Partial Thromboplast Time 30 SEC (23-33) Sodium Level 147 MMOL/L (136-145) H Potassium Level 3.5 MMOL/L (3.5-5.1) Chloride Level 113 MMOL/L (98-107) H Carbon Dioxide Level 22 MMOL/L (21-32) Anion Gap 12 mmol/L (5-15) Blood Urea Nitrogen 38 mg/dL (7-18) H Creatinine 1.3 MG/DL (0.55-1.30) Estimat Glomerular Filtration Rate > 60 mL/min (>60) Glucose Level 119 MG/DL (74-106) H Calcium Level 8.9 MG/DL (8.5-10.1) Phosphorus Level 2.9 MG/DL (2.5-4.9) Magnesium Level 2.2 MG/DL (1.8-2.4) Iron Level 84 ug/dL (50-175) Total Iron Binding Capacity 150 ug/dL (250-450) L Percent Iron Saturation 56 % (15-50) H Unsaturated Iron Binding 66 ug/dL (112-346) L Total Bilirubin 0.5 MG/DL (0.2-1.0) Aspartate Amino Transf (AST/SGOT) 74 U/L (15-37) H Alanine Aminotransferase (ALT/SGPT) 80 U/L (12-78) H Alkaline Phosphatase 198 U/L (46-116) H Lactate Dehydrogenase 193 U/L (81-234) C-Reactive Protein, Quantitative 16.1 mg/dL (0.00-0.90) H Total Protein 7.1 G/DL (6.4-8.2) Albumin 1.8 G/DL (3.4-5.0) L Globulin 5.3 g/dL Albumin/Globulin Ratio 0.3 (1.0-2.7) L Carcinoembryonic Antigen Pending Vitamin B12 Level 1544 PG/ML (193-986) H Folate 19.6 NG/ML (8.6-58.9) Intake and Output 09/10/19 09/11/19 19:00 07:00 Intake Total 1240 ml 1470 ml Output Total 1065 ml 705 ml Balance 175 ml 765 ml Intake IV Total 880 ml 900 ml Tube Feeding 360 ml 570 ml Output Urine Total 1065 ml 705 ml Objective PHYSICAL EXAMINATION: GENERAL: The patient is a thin-appearing male, in no apparent distress. HEENT: Eyes, pupils are equal and responsive to light and accommodation. Extraocular movements are intact. NECK: Supple without lymphadenopathy. CHEST: Mech vent; Lungs are clear to auscultation bilaterally with decreased breath sounds on the right. There are no wheezes appreciated. ABDOMEN: Soft, nontender, and nondistended. Positive bowel sounds. No evidence of hepatosplenomegaly. Currently, no rebound or guarding noted. EXTREMITIES: Negative for clubbing, cyanosis, or edema. RECTAL/GENITAL: Not performed. NEUROLOGIC: Cranial nerves II through XII are grossly intact without focal deficits. Assessment/Plan Assessment/Plan ASSESSMENT: This is an 84-year-old male with: 1. Possible right pneumonia=pseudamonas 2. Urinary tract infection=jennifer 3. Right pleural effusion. 4. Esophageal mass. 5. Dysphagia. 6. Diabetes. 7. Alzheimer's dementia. 8. Cerebrovascular disease. 9. Hypothyroidism. 10. Seizure disorder. 11. Iron deficiency anemia. TREATMENT: 1. Right perihilar Pneumonia/pleural effusion. COVID 19 and Influenza negative. A Pulmonary consultation has been obtained with Dr. Vania Hui. The patient underwent thoracentesis during previous hospitalization. We will follow recommendation of Pulmonary. Continue vanco and cefepime per ID=Dr Matias 2. Urinary tract infection. The patient has been started empirically on vancomycin and cefepime. A urine culture is pending. 3. Right pleural effusion. As above, a Pulmonary consultation has been obtained with Dr. Vania Hui. The patient may require thoracentesis during this hospitalization. 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 A Gastroenterology consultation has been obtained with Dr. Darrick Rosario. 5. Dysphagia. The patient is status post PEG placement on 08/08/2019 at [facility] by Dr. Darrick Rosario. 6. Diabetes type 2. A NovoLog sliding scale has been instituted. 7. Alzheimer's dementia. 8. Cerebrovascular disease, status post cerebrovascular accident. 9. Hypothyroidism. Continue levothyroxine as above. 10. Seizure disorder. 11. Iron deficiency anemia. Xander Bah MD Sep 11, 2019 18:17
--- NOTE | 2019-09-11 18:30 | Surgery Progress Note ---
Surgery Progress Note Subjective Additional Comments ill appearing Objective Last 24 Hour Vital Signs Date Time Temp Pulse Resp B/P (MAP) Pulse Ox O2 Delivery O2 Flow Rate FiO2 09/11/19 18:00 57 15 141/49 (79) 100 09/11/19 17:00 55 14 140/48 (78) 100 09/11/19 16:42 57 14 40 09/11/19 16:00 61 09/11/19 16:00 98.5 63 16 152/53 (86) 100 09/11/19 16:00 Mechanical Ventilator 09/11/19 15:02 65 16 40 09/11/19 15:00 61 14 136/44 (74) 100 09/11/19 14:00 61 14 122/43 (69) 100 09/11/19 13:00 60 15 141/38 (72) 100 09/11/19 12:40 60 15 40 09/11/19 12:00 65 09/11/19 12:00 98.6 67 18 141/44 (76) 100 09/11/19 12:00 Mechanical Ventilator 09/11/19 11:00 66 17 136/56 (82) 100 09/11/19 10:59 66 19 40 09/11/19 10:00 62 14 141/50 (80) 100 09/11/19 09:02 74 16 40 09/11/19 09:00 61 14 136/47 (76) 100 09/11/19 08:59 63 143/57 09/11/19 08:00 70 09/11/19 08:00 Mechanical Ventilator 09/11/19 08:00 98.3 65 18 136/49 (78) 100 09/11/19 07:14 63 21 40 09/11/19 07:00 66 18 146/55 (85) 100 09/11/19 06:00 71 19 154/50 (84) 100 09/11/19 05:18 67 17 40 09/11/19 05:00 58 14 142/73 (96) 100 09/11/19 04:00 56 09/11/19 04:00 97.7 57 14 139/44 (75) 100 09/11/19 04:00 Mechanical Ventilator 09/11/19 03:13 59 14 40 09/11/19 03:00 58 14 118/101 (107) 100 09/11/19 02:00 62 14 130/45 (73) 100 09/11/19 01:00 74 18 131/85 (100) 100 09/11/19 00:48 63 15 40 09/11/19 00:00 97.8 62 16 114/39 (64) 99 09/11/19 00:00 Mechanical Ventilator 09/10/19 23:10 61 14 40 09/10/19 23:00 64 18 121/43 (69) 99 09/10/19 22:00 57 14 105/41 (62) 100 09/10/19 21:11 61 14 40 09/10/19 21:00 59 14 110/30 (56) 100 09/10/19 20:00 Mechanical Ventilator 09/10/19 20:00 60 14 124/40 (68) 99 09/10/19 20:00 60 09/10/19 19:17 58 14 40 09/10/19 19:00 97.9 57 14 102/41 (61) 100 I&O Intake and Output 09/10/19 09/11/19 19:00 07:00 Intake Total 1240 ml 1470 ml Output Total 1065 ml 705 ml Balance 175 ml 765 ml Intake IV Total 880 ml 900 ml Tube Feeding 360 ml 570 ml Output Urine Total 1065 ml 705 ml Dressing: other Wound: other Drains: other Cardiovascular: RSR Respiratory: decreased breath sounds Abdomen: soft, present bowel sounds Extremities: no cyanosis Laboratory Tests Test 09/10/19 22:15 09/11/19 04:00 White Blood Count 5.7 K/UL (4.8-10.8) 5.6 K/UL (4.8-10.8) Red Blood Count 2.78 M/UL (4.70-6.10) L 2.90 M/UL (4.70-6.10) L Hemoglobin 7.1 G/DL (14.2-18.0) L 7.5 G/DL (14.2-18.0) L Hematocrit 23.4 % (42.0-52.0) L 23.9 % (42.0-52.0) L Mean Corpuscular Volume 84 FL (80-99) 82 FL (80-99) Mean Corpuscular Hemoglobin 25.7 PG (27.0-31.0) L 25.8 PG (27.0-31.0) L Mean Corpuscular Hemoglobin Concent 30.5 G/DL (32.0-36.0) L 31.3 G/DL (32.0-36.0) L Red Cell Distribution Width 22.7 % (11.6-14.8) H 20.3 % (11.6-14.8) H Platelet Count 155 K/UL (150-450) 167 K/UL (150-450) Mean Platelet Volume 7.2 FL (6.5-10.1) 6.0 FL (6.5-10.1) L Neutrophils (%) (Auto) % (45.0-75.0) % (45.0-75.0) Lymphocytes (%) (Auto) % (20.0-45.0) % (20.0-45.0) Monocytes (%) (Auto) % (1.0-10.0) % (1.0-10.0) Eosinophils (%) (Auto) % (0.0-3.0) % (0.0-3.0) Basophils (%) (Auto) % (0.0-2.0) % (0.0-2.0) Differential Total Cells Counted 100 Neutrophils % (Manual) 63 % (45-75) 64 % (45-75) Lymphocytes % (Manual) 18 % (20-45) L 22 % (20-45) Monocytes % (Manual) 9 % (1-10) 7 % (1-10) Eosinophils % (Manual) 6 % (0-3) H 7 % (0-3) H Basophils % (Manual) 0 % (0-2) 0 % (0-2) Band Neutrophils 4 % (0-8) 0 % (0-8) Platelet Estimate Adequate Adequate Platelet Morphology Normal Normal Hypochromasia 1+ 1+ Anisocytosis 2+ 2+ Erythrocyte Sedimentation Rate 130 MM/HR (0-20) H Reticulocyte Count 0.6 % (0.5-2.0) Prothrombin Time 10.3 SEC (9.30-11.50) Prothromb Time International Ratio 1.0 (0.9-1.1) Activated Partial Thromboplast Time 30 SEC (23-33) Sodium Level 147 MMOL/L (136-145) H Potassium Level 3.5 MMOL/L (3.5-5.1) Chloride Level 113 MMOL/L (98-107) H Carbon Dioxide Level 22 MMOL/L (21-32) Anion Gap 12 mmol/L (5-15) Blood Urea Nitrogen 38 mg/dL (7-18) H Creatinine 1.3 MG/DL (0.55-1.30) Estimat Glomerular Filtration Rate > 60 mL/min (>60) Glucose Level 119 MG/DL (74-106) H Calcium Level 8.9 MG/DL (8.5-10.1) Phosphorus Level 2.9 MG/DL (2.5-4.9) Magnesium Level 2.2 MG/DL (1.8-2.4) Iron Level 84 ug/dL (50-175) Total Iron Binding Capacity 150 ug/dL (250-450) L Percent Iron Saturation 56 % (15-50) H Unsaturated Iron Binding 66 ug/dL (112-346) L Total Bilirubin 0.5 MG/DL (0.2-1.0) Aspartate Amino Transf (AST/SGOT) 74 U/L (15-37) H Alanine Aminotransferase (ALT/SGPT) 80 U/L (12-78) H Alkaline Phosphatase 198 U/L (46-116) H Lactate Dehydrogenase 193 U/L (81-234) C-Reactive Protein, Quantitative 16.1 mg/dL (0.00-0.90) H Total Protein 7.1 G/DL (6.4-8.2) Albumin 1.8 G/DL (3.4-5.0) L Globulin 5.3 g/dL Albumin/Globulin Ratio 0.3 (1.0-2.7) L Carcinoembryonic Antigen Pending Vitamin B12 Level 1544 PG/ML (193-986) H Folate 19.6 NG/ML (8.6-58.9) Plan Problems: (1) UTI (urinary tract infection) (2) Acute respiratory failure Assessment & Plan: There is infiltrate suspected in the right perihilar region obscuring the right hilum. There is a hazy opacity that may partially be accounted for by pleural fluid on the right. Reticular densities are present on the left in the perihilar aspect of the lung. Endotracheal tube is in good position just above the anselmo. Heart size is normal. IMPRESSION: Suspected perihilar airspace disease in the right lung suspicious for pneumonia. Reticular nodular infiltrate in the left lung noted also. Right pleural effusion suspected. Endotracheal tube in good position cont vents support (3) Sepsis Assessment & Plan: Pt cachetic and presented on admission with multiple pressure injuries. Partial thickness pressure injury Cleft of L ear(L)1.2cm x (W)0.4cm. Base of wound moist and viable with small amt sanguineous exudate. Partial thickness pressure injury cleft of R ear(L)0.5cm x (W)0.7cm. Base of wound moist and viable Periwound erythematous.Small amt sanguineous exudate noted. Sacral DTPI(L)5cm x (W)10.5cm. Base of injury is purple with maroon borders. Coccygeal bony protrusion with darker skin tone, and small opening noted to R gluteus (L)0.5cm x (W)0.5cm within base of injury. No further skin breakdown periwound. Intact blood blister noted to R 1st metatarsal head(L)1.1cm x (W)2.5cm. DTPI noted to L heel extending into plantar aspect. Base of injury presents as an intact blood filled blister. Periwound is boggy with non-blanching erythema. R heel is boggy but blanchable. wounds unlikely etiology of sepsis respiratory but given current condition high risk for breakdown and worsening will monitor closely discussed with RN and staff great care being provided Tx.Plan: Apply Betadine to clefts of R and L ears. Pad oxygen tubing with gauze and keep oxygen tubing loose. Apply Moisture Barrier Paste to Sacrum. Cover with Optifoam drsg. Change every 3 days and prn. Apply Betadine to L heel. Cover with Optifoam drsg. Change every 3 days and prn. Apply Betadine to R 1st metatarsal head. Cover with Optifoam drsg. Change every 3 days and prn. Apply Cavilon Skin Barrier R heel. Cover with Optifoam drsg. Change every 7 days and prn. Reposition at least every 2hours or as tolerated. Off-load heels with pillow. (4) Severe anemia (5) Nosocomial pneumonia (6) Atrial fibrillation (7) Acute metabolic encephalopathy (8) History of CVA (cerebrovascular accident) (9) Diabetes mellitus (10) Hypothyroidism (11) Alzheimer's dementia (12) PVC (premature ventricular contraction) (13) Hypertension (14) Squamous cell esophageal cancer (15) Feeding by G-tube (16) Dehydration (17) Anemia (18) Severe malnutrition Assessment & Plan: Pt cachetic and presented on admission with multiple pressure injuries. Partial thickness pressure injury Cleft of L ear(L)1.2cm x (W )0.4cm. Base of wound moist and viable with small amt sanguineous exudate. Partial thickness pressure injury cleft of R ear(L)0.5cm x (W)0.7cm. Base of wound moist and viable Periwound erythematous.Small amt sanguineous exudate noted. Sacral DTPI(L)5cm x (W)10.5cm. Base of injury is purple with maroon borders. Coccygeal bony protrusion with darker skin tone, and small opening noted to R gluteus (L)0.5cm x (W)0.5cm within base of injury. No further skin breakdown periwound. Intact blood blister noted to R 1st metatarsal head(L)1.1cm x (W)2.5cm. DTPI noted to L heel extending into plantar aspect. Base of injury presents as an intact blood filled blister. Periwound is boggy with non-blanching erythema. R heel is boggy but blanchable. Tx.Plan: Apply Betadine to clefts of R and L ears. Pad oxygen tubing with gauze and keep oxygen tubing loose. Apply Moisture Barrier Paste to Sacrum. Cover with Optifoam drsg. Change every 3 days and prn. Apply Betadine to L heel. Cover with Optifoam drsg. Change every 3 days and prn. Apply Betadine to R 1st metatarsal head. Cover with Optifoam drsg. Change every 3 days and prn. Apply Cavilon Skin Barrier R heel. Cover with Optifoam drsg. Change every 7 days and prn. Reposition at least every 2hours or as tolerated. Off-load heels with pillow. (19) Encounter for PEG (percutaneous endoscopic gastrostomy) (20) At high risk for aspiration (21) Pleural effusion (22) Suspected COVID-19 virus infection Jan Mora Sep 11, 2019 18:30
[2019-09-12] VITALS (24 sets, daily range): BP systolic 129–184; BP diastolic 44–69
[2019-09-12 05:45] LABS: BASOPHILS % (AUTO) 0.4 % (0.0-2.0); EOSINOPHILS % (AUTO) 7.3 % (0.0-3.0); HEMATOCRIT 26.9 % (42.0-52.0); HEMOGLOBIN 8.8 G/DL (14.2-18.0); LYMPHOCYTES % (AUTO) 20.4 % (20.0-45.0); MEAN CORPUSCULAR VOLUME 82 FL (80-99); MONOCYTES % (AUTO) 8.6 % (1.0-10.0); NEUTROPHILS % (AUTO) 63.3 % (45.0-75.0); PLATELET COUNT 168 K/UL (150-450); RED BLOOD COUNT 3.29 M/UL (4.70-6.10); RED CELL DISTRIBUTION WIDTH 18.9 % (11.6-14.8); WHITE BLOOD COUNT 6.6 K/UL (4.8-10.8)
[2019-09-12 06:29] LABS: ALANINE AMINOTRANSFERASE 75 U/L (12-78); ALBUMIN 1.7 G/DL (3.4-5.0); ALBUMIN/GLOBULIN RATIO 0.3 (1.0-2.7); ALKALINE PHOSPHATASE 198 U/L (46-116); ANION GAP 12 mmol/L (5-15); ASPARTATE AMINO TRANSFERASE 60 U/L (15-37); BILIRUBIN,TOTAL 0.6 MG/DL (0.2-1.0); BLOOD UREA NITROGEN 25 mg/dL (7-18); CALCIUM 6.6 MG/DL (8.5-10.1); CARBON DIOXIDE 20 MMOL/L (21-32); CHLORIDE 111 MMOL/L (98-107); CREATININE 1.1 MG/DL (0.55-1.30); POTASSIUM 3.5 MMOL/L (3.5-5.1); SODIUM 143 MMOL/L (136-145)
[2019-09-12] MEDS: Pantoprazole Inj IVP SCH ×2 (08:35→21:15)
[2019-09-12] MEDS: Cefepime HCl 1 GM in D5W 55 ML IV SCH (08:35)
[2019-09-12] MEDS: Heparin 5000 units/ml inj SUBQ SCH ×2 (08:36→21:26)
[2019-09-12 08:56] LABS: ALANINE AMINOTRANSFERASE 76 U/L (12-78); ALBUMIN 1.8 G/DL (3.4-5.0); ALKALINE PHOSPHATASE 206 U/L (46-116); ASPARTATE AMINO TRANSFERASE 64 U/L (15-37); BILIRUBIN,DIRECT 0.2 MG/DL (0.0-0.3); BILIRUBIN,TOTAL 0.5 MG/DL (0.2-1.0); PHOSPHORUS 2.7 MG/DL (2.5-4.9)
--- NOTE | 2019-09-12 10:20 | Pulmonolgy Critical Care Note ---
Critical Care - Asmt/Plan Problems: (1) Acute respiratory failure (2) Suspected COVID-19 virus infection (3) Nosocomial pneumonia (4) Sepsis (5) Diabetes mellitus (6) At high risk for aspiration (7) Severe malnutrition (8) Feeding by G-tube (9) Squamous cell esophageal cancer (10) Alzheimer's dementia (11) History of CVA (cerebrovascular accident) Respiratory: monitor respiratory rate, adjust FIO2, CXR Cardiac: start pressors, continue to monitor HR/BP Renal: F/U I&O, keep IV fluid Infectious Disease: check cultures Gastrointestinal: continue feedings/current rate Endocrine: monitor blood sugar Hematologic: monitor H/H, transfuse if hgb<8.5 Neurologic: keep patient comfortable Affect: PRN ativan Prophylaxis: Protonix, Heparin Time Spent (Minutes): 40 Notes 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, 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, 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, ID Discussed with: nurses Critical Care - Objective Last 24 Hour Vital Signs Date Time Temp Pulse Resp B/P (MAP) Pulse Ox O2 Delivery O2 Flow Rate FiO2 09/12/19 10:00 65 14 153/50 (84) 100 09/12/19 09:00 59 14 158/50 (86) 100 09/12/19 08:36 63 165/62 09/12/19 08:00 Mechanical Ventilator 09/12/19 08:00 98.5 61 15 159/50 (86) 100 09/12/19 08:00 40 09/12/19 07:26 81 16 40 09/12/19 07:00 57 14 145/50 (81) 100 09/12/19 06:30 60 14 09/12/19 06:00 56 14 140/47 (78) 100 09/12/19 05:21 62 16 40 09/12/19 05:00 65 15 161/52 (88) 100 09/12/19 04:00 Mechanical Ventilator 09/12/19 04:00 40 09/12/19 04:00 63 09/12/19 04:00 98.7 60 15 157/69 (98) 100 09/12/19 03:25 67 16 40 09/12/19 03:00 61 17 174/56 (95) 100 09/12/19 02:00 53 15 160/49 (86) 100 09/12/19 01:41 68 15 40 09/12/19 01:00 55 16 150/52 (84) 99 09/12/19 00:00 40 09/12/19 00:00 Mechanical Ventilator 09/12/19 00:00 83 09/12/19 00:00 98.6 56 14 156/51 (86) 100 09/11/19 23:19 64 19 40 09/11/19 23:11 67 17 40 09/11/19 23:00 62 15 157/52 (87) 100 09/11/19 22:00 55 15 150/54 (86) 100 09/11/19 21:14 64 16 40 09/11/19 21:00 54 14 150/46 (80) 100 09/11/19 20:00 Mechanical Ventilator 09/11/19 20:00 57 09/11/19 20:00 98.6 56 15 140/47 (78) 100 09/11/19 20:00 40 09/11/19 19:37 56 14 40 09/11/19 19:00 55 14 139/46 (77) 100 09/11/19 18:00 57 15 141/49 (79) 100 09/11/19 17:00 55 14 140/48 (78) 100 09/11/19 16:42 57 14 40 09/11/19 16:00 61 09/11/19 16:00 98.5 63 16 152/53 (86) 100 09/11/19 16:00 Mechanical Ventilator 09/11/19 15:02 65 16 40 09/11/19 15:00 61 14 136/44 (74) 100 09/11/19 14:00 61 14 122/43 (69) 100 09/11/19 13:00 60 15 141/38 (72) 100 09/11/19 12:40 60 15 40 09/11/19 12:00 65 09/11/19 12:00 98.6 67 18 141/44 (76) 100 09/11/19 12:00 Mechanical Ventilator 09/11/19 11:00 66 17 136/56 (82) 100 09/11/19 10:59 66 19 40 Status: sedated Condition: critical HEENT: atraumatic Lungs: rales, rhonchi Heart: HR/BP stable Abdomen: soft, active bowel sounds Extremities: edema Micro: Microbiology Date/Time Source Procedure Growth Status 09/09/19 17:12 Nasopharynx Coronavirus COVID-19 PCR ([facility]) - Final Complete Critical Care - Subjective ROS Limited/Unobtainable: Yes Condition: critical EKG Rhythm: Sinus Rhythm FI02: 40 Vent Support Breath Rate: 14 Vent Support Mode: AC Vent Tidal Volume: 550 Sputum Amount: Small PEEP: 5.0 PIP: 32 Tube Feeding Amount: 60 I&O: Intake and Output 09/11/19 09/12/19 19:00 07:00 Intake Total 1891.25 ml 1680 ml Output Total 680 ml 510 ml Balance 1211.25 ml 1170 ml Intake IV Total 921.25 ml 900 ml Tube Feeding 720 ml 720 ml Blood Product 250 ml Other 60 ml Output Urine Total 680 ml 510 ml CXR: extensive infiltrate ET-Tube: 7.5 ET Position: 23 Labs: Laboratory Tests Test 09/12/19 04:00 White Blood Count 6.6 K/UL (4.8-10.8) Red Blood Count 3.29 M/UL (4.70-6.10) L Hemoglobin 8.8 G/DL (14.2-18.0) L Hematocrit 26.9 % (42.0-52.0) L Mean Corpuscular Volume 82 FL (80-99) Mean Corpuscular Hemoglobin 26.6 PG (27.0-31.0) L Mean Corpuscular Hemoglobin Concent 32.6 G/DL (32.0-36.0) Red Cell Distribution Width 18.9 % (11.6-14.8) H Platelet Count 168 K/UL (150-450) Mean Platelet Volume 6.6 FL (6.5-10.1) Neutrophils (%) (Auto) 63.3 % (45.0-75.0) Lymphocytes (%) (Auto) 20.4 % (20.0-45.0) Monocytes (%) (Auto) 8.6 % (1.0-10.0) Eosinophils (%) (Auto) 7.3 % (0.0-3.0) H Basophils (%) (Auto) 0.4 % (0.0-2.0) Sodium Level 143 MMOL/L (136-145) Potassium Level 3.5 MMOL/L (3.5-5.1) Chloride Level 111 MMOL/L (98-107) H Carbon Dioxide Level 20 MMOL/L (21-32) L Anion Gap 12 mmol/L (5-15) Blood Urea Nitrogen 25 mg/dL (7-18) H Creatinine 1.1 MG/DL (0.55-1.30) Estimat Glomerular Filtration Rate > 60 mL/min (>60) Glucose Level 106 MG/DL (74-106) Calcium Level 6.6 MG/DL (8.5-10.1) #L Phosphorus Level 2.7 MG/DL (2.5-4.9) Magnesium Level 1.9 MG/DL (1.8-2.4) Total Bilirubin 0.5 MG/DL (0.2-1.0) Direct Bilirubin 0.2 MG/DL (0.0-0.3) Aspartate Amino Transf (AST/SGOT) 64 U/L (15-37) H Alanine Aminotransferase (ALT/SGPT) 76 U/L (12-78) Alkaline Phosphatase 206 U/L (46-116) H Total Protein 7.2 G/DL (6.4-8.2) Albumin 1.8 G/DL (3.4-5.0) L Globulin 5.5 g/dL Albumin/Globulin Ratio 0.3 (1.0-2.7) L Vania Hui MD Sep 12, 2019 10:20
--- NOTE | 2019-09-12 10:29 | Infectious Diseases Prog Note ---
Assessment/Plan Assessment/Plan Afebrile No leukocytosis PNA SARS-CoV neg x2 MRSA screen pos sp cx: PSA and proteus CXR: Right pleural effusion, also demonstrated on prior 08/09/2019 exam, slightly increased. Hazy right lung parenchymal opacity probably represents a superimposed pleural fluid but infiltrate also possible. QTc 419 DM HTN CVA Dementia Nonverbal G tube Plan: continue cefepime # 6 4/4 SP vanc #4 ( Cr increased) f/u Bcx ICU care monitor temp and CBC isolation precaution per hospital protocol DW RN Thank you for this consult. [facility] will continue to follow the patient with you. Subjective Allergies: Coded Allergies: PENICILLINS (Verified Allergy, Unknown, 10/27/18) tolretas cephalosporins Subjective Afebrile. FiO2 40% Objective Vital Signs Last 24 Hour Vital Signs Date Time Temp Pulse Resp B/P (MAP) Pulse Ox O2 Delivery O2 Flow Rate FiO2 09/12/19 10:00 65 14 153/50 (84) 100 09/12/19 09:00 59 14 158/50 (86) 100 09/12/19 08:36 63 165/62 09/12/19 08:00 Mechanical Ventilator 09/12/19 08:00 98.5 61 15 159/50 (86) 100 09/12/19 08:00 40 09/12/19 07:26 81 16 40 09/12/19 07:00 57 14 145/50 (81) 100 09/12/19 06:30 60 14 09/12/19 06:00 56 14 140/47 (78) 100 09/12/19 05:21 62 16 40 09/12/19 05:00 65 15 161/52 (88) 100 09/12/19 04:00 Mechanical Ventilator 09/12/19 04:00 40 09/12/19 04:00 63 09/12/19 04:00 98.7 60 15 157/69 (98) 100 09/12/19 03:25 67 16 40 09/12/19 03:00 61 17 174/56 (95) 100 09/12/19 02:00 53 15 160/49 (86) 100 09/12/19 01:41 68 15 40 09/12/19 01:00 55 16 150/52 (84) 99 09/12/19 00:00 40 09/12/19 00:00 Mechanical Ventilator 09/12/19 00:00 83 09/12/19 00:00 98.6 56 14 156/51 (86) 100 09/11/19 23:19 64 19 40 09/11/19 23:11 67 17 40 09/11/19 23:00 62 15 157/52 (87) 100 09/11/19 22:00 55 15 150/54 (86) 100 09/11/19 21:14 64 16 40 09/11/19 21:00 54 14 150/46 (80) 100 09/11/19 20:00 Mechanical Ventilator 09/11/19 20:00 57 09/11/19 20:00 98.6 56 15 140/47 (78) 100 09/11/19 20:00 40 09/11/19 19:37 56 14 40 09/11/19 19:00 55 14 139/46 (77) 100 09/11/19 18:00 57 15 141/49 (79) 100 09/11/19 17:00 55 14 140/48 (78) 100 09/11/19 16:42 57 14 40 09/11/19 16:00 61 09/11/19 16:00 98.5 63 16 152/53 (86) 100 09/11/19 16:00 Mechanical Ventilator 09/11/19 15:02 65 16 40 09/11/19 15:00 61 14 136/44 (74) 100 09/11/19 14:00 61 14 122/43 (69) 100 09/11/19 13:00 60 15 141/38 (72) 100 09/11/19 12:40 60 15 40 09/11/19 12:00 65 09/11/19 12:00 98.6 67 18 141/44 (76) 100 09/11/19 12:00 Mechanical Ventilator 09/11/19 11:00 66 17 136/56 (82) 100 09/11/19 10:59 66 19 40 Height (Feet): 5 Height (Inches): 11.00 Weight (Pounds): 157 Objective Gen: NAD. well nourished HEENT: ETT Resp: coarse. equal chest rise. regular rate and rhythm. Abd: Soft. no TTP. nondistended. G tube site c/d/i. Neuro: opens eyes Microbiology Date/Time Source Procedure Growth Status 09/09/19 17:12 Nasopharynx Coronavirus COVID-19 PCR ([facility]) - Final Complete Laboratory Tests Test 09/12/19 04:00 White Blood Count 6.6 K/UL (4.8-10.8) Red Blood Count 3.29 M/UL (4.70-6.10) L Hemoglobin 8.8 G/DL (14.2-18.0) L Hematocrit 26.9 % (42.0-52.0) L Mean Corpuscular Volume 82 FL (80-99) Mean Corpuscular Hemoglobin 26.6 PG (27.0-31.0) L Mean Corpuscular Hemoglobin Concent 32.6 G/DL (32.0-36.0) Red Cell Distribution Width 18.9 % (11.6-14.8) H Platelet Count 168 K/UL (150-450) Mean Platelet Volume 6.6 FL (6.5-10.1) Neutrophils (%) (Auto) 63.3 % (45.0-75.0) Lymphocytes (%) (Auto) 20.4 % (20.0-45.0) Monocytes (%) (Auto) 8.6 % (1.0-10.0) Eosinophils (%) (Auto) 7.3 % (0.0-3.0) H Basophils (%) (Auto) 0.4 % (0.0-2.0) Sodium Level 143 MMOL/L (136-145) Potassium Level 3.5 MMOL/L (3.5-5.1) Chloride Level 111 MMOL/L (98-107) H Carbon Dioxide Level 20 MMOL/L (21-32) L Anion Gap 12 mmol/L (5-15) Blood Urea Nitrogen 25 mg/dL (7-18) H Creatinine 1.1 MG/DL (0.55-1.30) Estimat Glomerular Filtration Rate > 60 mL/min (>60) Glucose Level 106 MG/DL (74-106) Calcium Level 6.6 MG/DL (8.5-10.1) #L Phosphorus Level 2.7 MG/DL (2.5-4.9) Magnesium Level 1.9 MG/DL (1.8-2.4) Total Bilirubin 0.5 MG/DL (0.2-1.0) Direct Bilirubin 0.2 MG/DL (0.0-0.3) Aspartate Amino Transf (AST/SGOT) 64 U/L (15-37) H Alanine Aminotransferase (ALT/SGPT) 76 U/L (12-78) Alkaline Phosphatase 206 U/L (46-116) H Total Protein 7.2 G/DL (6.4-8.2) Albumin 1.8 G/DL (3.4-5.0) L Globulin 5.5 g/dL Albumin/Globulin Ratio 0.3 (1.0-2.7) L Current Medications Medications (Trade) Dose Ordered Sig/Kike Route PRN Reason Start Time Stop Time Status Last Admin Dose Admin Acetaminophen (Tylenol) 650 mg Q4H PRN ORAL fever 09/09/19 04:30 10/07/19 04:29 Albuterol/ Ipratropium (Albuterol/ Ipratropium) 3 ml Q4H PRN HHN Shortness of Breath 09/09/19 04:30 09/14/19 04:29 Alprazolam (Xanax) 0.5 mg Q6H PRN ORAL For Anxiety 09/09/19 04:30 09/14/19 04:29 Amlodipine Besylate (Norvasc) 2.5 mg DAILY ORAL 09/09/19 09:00 10/07/19 08:59 09/12/19 08:36 Cefepime HCl 1 gm/ Dextrose 55 ml @ 110 mls/hr Q24H IV 09/10/19 09:00 09/17/19 08:59 09/12/19 08:35 Heparin Sodium (Porcine) (Heparin 5000 units/ml) 5,000 units EVERY 12 HOURS SUBQ 09/09/19 09:00 10/22/19 08:59 09/12/19 08:36 Levothyroxine Sodium (Synthroid) 75 mcg DAILY@0630 ORAL 09/12/19 06:30 10/07/19 08:29 09/12/19 06:24 Mirtazapine (Remeron) 7.5 mg BEDTIME ORAL 09/09/19 21:00 12/06/19 20:59 09/11/19 21:46 Nitroglycerin (Ntg) 0.4 mg Q5M PRN SL Prn Chest Pain 09/09/19 04:30 10/07/19 04:29 Ondansetron HCl (Zofran) 4 mg Q6H PRN IVP Nausea & Vomiting 09/09/19 04:30 10/07/19 04:29 Pantoprazole (Protonix) 40 mg Q12HR IVP 09/11/19 21:00 10/10/19 08:59 09/12/19 08:35 Polyethylene Glycol (Miralax) 17 gm DAILYPRN PRN ORAL Constipation 09/09/19 04:30 10/07/19 04:29 Promethazine HCl/ Codeine (Phenergan with Codeine) 5 ml Q4H PRN ORAL For Cough 09/09/19 04:30 10/07/19 04:29 Quetiapine Fumarate (SEROqueL) 25 mg Q8HR ORAL 09/09/19 06:00 10/22/19 08:14 09/12/19 06:24 Sodium Chloride 1,000 ml @ 75 mls/hr [id number] IV 09/11/19 10:00 10/11/19 09:59 09/11/19 23:20 Temazepam (Restoril) 15 mg HSPRN PRN ORAL Insomnia 09/09/19 08:15 09/14/19 08:14 Marcelina Matias MD Sep 12, 2019 10:29
--- NOTE | 2019-09-12 11:32 | Nephrology Progress Note ---
Assessment/Plan Problem List: (1) RAMAN (acute kidney injury) Assessment: Serum creatinine normalized with hydration (2) Dehydration (3) Suspected COVID-19 virus infection (4) Anemia (5) Sepsis (6) Diabetes mellitus (7) Hypothyroidism Assessment - Acute renal failure - Severe anemia - Sepsis, pneumonia, acute respiratory failure, suspected: Viewed 19 virus infection - Diabetes mellitus - Hypothyroidism - Feeding by G-tube - Squamous cell esophageal cancer - History of CVA (cerebrovascular accident) Plan Plan: Monitor renal parameters, serum creatinine Adjust electrolytes with supplements Increase Synthroid dose Change IV to half-normal saline Avoid nephrotoxic's as possible Ventilator management Urine studies Per orders Subjective ROS Limited/Unobtainable: Yes Objective Objective Last 24 Hour Vital Signs Date Time Temp Pulse Resp B/P (MAP) Pulse Ox O2 Delivery O2 Flow Rate FiO2 09/12/19 11:02 66 15 40 09/12/19 11:00 59 13 133/68 (89) 100 09/12/19 10:00 65 14 153/50 (84) 100 09/12/19 09:00 59 14 158/50 (86) 100 09/12/19 08:36 63 165/62 09/12/19 08:00 Mechanical Ventilator 09/12/19 08:00 98.5 61 15 159/50 (86) 100 09/12/19 08:00 57 09/12/19 08:00 40 09/12/19 07:26 81 16 40 09/12/19 07:00 57 14 145/50 (81) 100 09/12/19 06:30 60 14 09/12/19 06:00 56 14 140/47 (78) 100 09/12/19 05:21 62 16 40 09/12/19 05:00 65 15 161/52 (88) 100 09/12/19 04:00 Mechanical Ventilator 09/12/19 04:00 40 09/12/19 04:00 63 09/12/19 04:00 98.7 60 15 157/69 (98) 100 09/12/19 03:25 67 16 40 09/12/19 03:00 61 17 174/56 (95) 100 09/12/19 02:00 53 15 160/49 (86) 100 09/12/19 01:41 68 15 40 09/12/19 01:00 55 16 150/52 (84) 99 09/12/19 00:00 40 09/12/19 00:00 Mechanical Ventilator 09/12/19 00:00 83 09/12/19 00:00 98.6 56 14 156/51 (86) 100 09/11/19 23:19 64 19 40 09/11/19 23:11 67 17 40 09/11/19 23:00 62 15 157/52 (87) 100 09/11/19 22:00 55 15 150/54 (86) 100 09/11/19 21:14 64 16 40 09/11/19 21:00 54 14 150/46 (80) 100 09/11/19 20:00 Mechanical Ventilator 09/11/19 20:00 57 09/11/19 20:00 98.6 56 15 140/47 (78) 100 09/11/19 20:00 40 09/11/19 19:37 56 14 40 09/11/19 19:00 55 14 139/46 (77) 100 09/11/19 18:00 57 15 141/49 (79) 100 09/11/19 17:00 55 14 140/48 (78) 100 09/11/19 16:42 57 14 40 09/11/19 16:00 61 09/11/19 16:00 98.5 63 16 152/53 (86) 100 09/11/19 16:00 Mechanical Ventilator 09/11/19 15:02 65 16 40 09/11/19 15:00 61 14 136/44 (74) 100 09/11/19 14:00 61 14 122/43 (69) 100 09/11/19 13:00 60 15 141/38 (72) 100 09/11/19 12:40 60 15 40 09/11/19 12:00 65 09/11/19 12:00 98.6 67 18 141/44 (76) 100 09/11/19 12:00 Mechanical Ventilator Intake and Output 09/11/19 09/12/19 19:00 07:00 Intake Total 1891.25 ml 1680 ml Output Total 680 ml 510 ml Balance 1211.25 ml 1170 ml Intake IV Total 921.25 ml 900 ml Tube Feeding 720 ml 720 ml Blood Product 250 ml Other 60 ml Output Urine Total 680 ml 510 ml Laboratory Tests 09/12/19 04:00: White Blood Count 6.6, Red Blood Count 3.29L, Hemoglobin 8.8L, Hematocrit 26.9L , Mean Corpuscular Volume 82, Mean Corpuscular Hemoglobin 26.6L, Mean Corpuscular Hemoglobin Concent 32.6, Red Cell Distribution Width 18.9H, Platelet Count 168, Mean Platelet Volume 6.6, Neutrophils (%) (Auto) 63.3, Lymphocytes (%) (Auto) 20.4, Monocytes (%) (Auto) 8.6, Eosinophils (%) (Auto) 7.3H, Basophils (%) (Auto) 0.4, Sodium Level 143, Potassium Level 3.5, Chloride Level 111H, Carbon Dioxide Level 20L, Anion Gap 12, Blood Urea Nitrogen 25H, Creatinine 1.1, Estimat Glomerular Filtration Rate > 60, Glucose Level 106, Calcium Level 6.6#L, Phosphorus Level 2.7, Magnesium Level 1.9, Total Bilirubin 0.5, Direct Bilirubin 0.2, Aspartate Amino Transf (AST/SGOT) 64H, Alanine Aminotransferase (ALT/SGPT) 76, Alkaline Phosphatase 206H, Total Protein 7.2, Albumin 1.8L, Globulin 5.5, Albumin/Globulin Ratio 0.3L Height (Feet): 5 Height (Inches): 11.00 Weight (Pounds): 157 General Appearance: no apparent distress EENT: other - Remains intubated and vented Cardiovascular: bradycardia Respiratory/Chest: decreased breath sounds Abdomen: distended Clovis Benites MD Sep 12, 2019 11:32
--- NOTE | 2019-09-12 13:10 | Internal Med Progress Note ---
Subjective Date of Service: Sep 12, 2019 Physician Name Bah,Xander Attending Physician Lamont Hayes MD Current Medications Medications (Trade) Dose Ordered Sig/Kike Route PRN Reason Start Time Stop Time Status Last Admin Dose Admin Acetaminophen (Tylenol) 650 mg Q4H PRN ORAL fever 09/09/19 04:30 10/07/19 04:29 Albuterol/ Ipratropium (Albuterol/ Ipratropium) 3 ml Q4H PRN HHN Shortness of Breath 09/09/19 04:30 09/14/19 04:29 Alprazolam (Xanax) 0.5 mg Q6H PRN ORAL For Anxiety 09/09/19 04:30 09/14/19 04:29 Amlodipine Besylate (Norvasc) 2.5 mg DAILY ORAL 09/09/19 09:00 10/07/19 08:59 09/12/19 08:36 Cefepime HCl 1 gm/ Dextrose 55 ml @ 110 mls/hr Q24H IV 09/10/19 09:00 09/17/19 08:59 09/12/19 08:35 Heparin Sodium (Porcine) (Heparin 5000 units/ml) 5,000 units EVERY 12 HOURS SUBQ 09/09/19 09:00 10/22/19 08:59 09/12/19 08:36 Levothyroxine Sodium (Synthroid) 75 mcg DAILY@0630 ORAL 09/12/19 06:30 10/07/19 08:29 09/12/19 06:24 Mirtazapine (Remeron) 7.5 mg BEDTIME ORAL 09/09/19 21:00 12/06/19 20:59 09/11/19 21:46 Nitroglycerin (Ntg) 0.4 mg Q5M PRN SL Prn Chest Pain 09/09/19 04:30 10/07/19 04:29 Ondansetron HCl (Zofran) 4 mg Q6H PRN IVP Nausea & Vomiting 09/09/19 04:30 10/07/19 04:29 Pantoprazole (Protonix) 40 mg Q12HR IVP 09/11/19 21:00 10/10/19 08:59 09/12/19 08:35 Polyethylene Glycol (Miralax) 17 gm DAILYPRN PRN ORAL Constipation 09/09/19 04:30 10/07/19 04:29 Promethazine HCl/ Codeine (Phenergan with Codeine) 5 ml Q4H PRN ORAL For Cough 09/09/19 04:30 10/07/19 04:29 Quetiapine Fumarate (SEROqueL) 25 mg Q8HR ORAL 09/09/19 06:00 10/22/19 08:14 09/12/19 06:24 Sodium Chloride 1,000 ml @ 75 mls/hr [id number] IV 09/11/19 10:00 10/11/19 09:59 09/12/19 11:28 Temazepam (Restoril) 15 mg HSPRN PRN ORAL Insomnia 09/09/19 08:15 09/14/19 08:14 Allergies: Coded Allergies: PENICILLINS (Verified Allergy, Unknown, 10/27/18) tolretas cephalosporins ROS Limited/Unobtainable: Yes Subjective 84 YO M admitted with cough and congestion. Now right pleural effusion and pneumonia. Cover for Int Med-Dr Hayes. ICU. Intubated and sedated Objective Last Vital Signs Date Time Temp Pulse Resp B/P (MAP) Pulse Ox O2 Delivery O2 Flow Rate FiO2 09/12/19 11:02 66 15 40 09/12/19 11:00 133/68 (89) 100 09/12/19 08:00 Mechanical Ventilator 09/12/19 08:00 98.5 09/08/19 21:00 2.0 Laboratory Tests Test 09/12/19 04:00 White Blood Count 6.6 K/UL (4.8-10.8) Red Blood Count 3.29 M/UL (4.70-6.10) L Hemoglobin 8.8 G/DL (14.2-18.0) L Hematocrit 26.9 % (42.0-52.0) L Mean Corpuscular Volume 82 FL (80-99) Mean Corpuscular Hemoglobin 26.6 PG (27.0-31.0) L Mean Corpuscular Hemoglobin Concent 32.6 G/DL (32.0-36.0) Red Cell Distribution Width 18.9 % (11.6-14.8) H Platelet Count 168 K/UL (150-450) Mean Platelet Volume 6.6 FL (6.5-10.1) Neutrophils (%) (Auto) 63.3 % (45.0-75.0) Lymphocytes (%) (Auto) 20.4 % (20.0-45.0) Monocytes (%) (Auto) 8.6 % (1.0-10.0) Eosinophils (%) (Auto) 7.3 % (0.0-3.0) H Basophils (%) (Auto) 0.4 % (0.0-2.0) Sodium Level 143 MMOL/L (136-145) Potassium Level 3.5 MMOL/L (3.5-5.1) Chloride Level 111 MMOL/L (98-107) H Carbon Dioxide Level 20 MMOL/L (21-32) L Anion Gap 12 mmol/L (5-15) Blood Urea Nitrogen 25 mg/dL (7-18) H Creatinine 1.1 MG/DL (0.55-1.30) Estimat Glomerular Filtration Rate > 60 mL/min (>60) Glucose Level 106 MG/DL (74-106) Calcium Level 6.6 MG/DL (8.5-10.1) #L Phosphorus Level 2.7 MG/DL (2.5-4.9) Magnesium Level 1.9 MG/DL (1.8-2.4) Total Bilirubin 0.5 MG/DL (0.2-1.0) Direct Bilirubin 0.2 MG/DL (0.0-0.3) Aspartate Amino Transf (AST/SGOT) 64 U/L (15-37) H Alanine Aminotransferase (ALT/SGPT) 76 U/L (12-78) Alkaline Phosphatase 206 U/L (46-116) H Total Protein 7.2 G/DL (6.4-8.2) Albumin 1.8 G/DL (3.4-5.0) L Globulin 5.5 g/dL Albumin/Globulin Ratio 0.3 (1.0-2.7) L Microbiology Date/Time Source Procedure Growth Status 09/09/19 17:12 Nasopharynx Coronavirus COVID-19 PCR ([facility]) - Final Complete Intake and Output 09/11/19 09/12/19 19:00 07:00 Intake Total 1891.25 ml 1680 ml Output Total 680 ml 510 ml Balance 1211.25 ml 1170 ml Intake IV Total 921.25 ml 900 ml Tube Feeding 720 ml 720 ml Blood Product 250 ml Other 60 ml Output Urine Total 680 ml 510 ml Objective PHYSICAL EXAMINATION: GENERAL: The patient is a thin-appearing male, in no apparent distress. HEENT: Eyes, pupils are equal and responsive to light and accommodation. Extraocular movements are intact. NECK: Supple without lymphadenopathy. CHEST: Mech vent; Lungs are clear to auscultation bilaterally with decreased breath sounds on the right. There are no wheezes appreciated. ABDOMEN: Soft, nontender, and nondistended. Positive bowel sounds. No evidence of hepatosplenomegaly. Currently, no rebound or guarding noted. EXTREMITIES: Negative for clubbing, cyanosis, or edema. RECTAL/GENITAL: Not performed. NEUROLOGIC: Cranial nerves II through XII are grossly intact without focal deficits. Assessment/Plan Assessment/Plan ASSESSMENT: This is an 84-year-old male with: 1. Possible right pneumonia=pseudamonas 2. Urinary tract infection=jennifer 3. Right pleural effusion. 4. Esophageal mass. 5. Dysphagia. 6. Diabetes. 7. Alzheimer's dementia. 8. Cerebrovascular disease. 9. Hypothyroidism. 10. Seizure disorder. 11. Iron deficiency anemia. TREATMENT: 1. Right perihilar Pneumonia/pleural effusion. COVID 19 and Influenza negative. A Pulmonary consultation has been obtained with Dr. Vania Hui. The patient underwent thoracentesis during previous hospitalization. We will follow recommendation of Pulmonary. Continue vanco and cefepime per ID=Dr Matias 2. Urinary tract infection. ABX=vancomycin and cefepime. A urine culture =jennifer 3. Right pleural effusion. As above, a Pulmonary consultation has been obtained with Dr. Vania Hui. The patient may require thoracentesis during this hospitalization. 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 A Gastroenterology consultation has been obtained with Dr. Darrick Rosario. 5. Dysphagia. The patient is status post PEG placement on 08/08/[address] [facility] by Dr. Darrick Rosario. 6. Diabetes type 2. A NovoLog sliding scale has been instituted. 7. Alzheimer's dementia. 8. Cerebrovascular disease, status post cerebrovascular accident. 9. Hypothyroidism. Continue levothyroxine as above. 10. Seizure disorder. 11. Iron deficiency anemia. Xander Bah MD Sep 12, 2019 13:10
[2019-09-12] MEDS ORDERED: Tubing Blood Filter IV ONE (14:02)
[2019-09-12] MEDS ORDERED: 1/2 NS 1000ml IV ONE (14:02)
[2019-09-12] MEDS ORDERED: NS 275ml ONE (14:02)
--- NOTE | 2019-09-12 17:52 | Surgery Progress Note ---
Surgery Progress Note Subjective Additional Comments ill appearing on vent support difficult to wean infiltrates extensive on cxr Objective Last 24 Hour Vital Signs Date Time Temp Pulse Resp B/P (MAP) Pulse Ox O2 Delivery O2 Flow Rate FiO2 09/12/19 17:00 62 17 144/45 (78) 100 09/12/19 16:00 74 20 153/44 (80) 100 09/12/19 16:00 Mechanical Ventilator 09/12/19 16:00 40 09/12/19 15:30 67 17 40 09/12/19 15:00 67 18 137/50 (79) 100 09/12/19 14:00 67 21 143/59 (87) 100 09/12/19 13:00 65 16 138/53 (81) 100 09/12/19 12:00 59 09/12/19 12:00 40 09/12/19 12:00 Mechanical Ventilator 09/12/19 12:00 98.6 71 19 160/56 (90) 99 09/12/19 11:02 66 15 40 09/12/19 11:00 59 13 133/68 (89) 100 09/12/19 10:00 65 14 153/50 (84) 100 09/12/19 09:00 59 14 158/50 (86) 100 09/12/19 08:36 63 165/62 09/12/19 08:00 Mechanical Ventilator 09/12/19 08:00 98.5 61 15 159/50 (86) 100 09/12/19 08:00 57 09/12/19 08:00 40 09/12/19 07:26 81 16 40 09/12/19 07:00 57 14 145/50 (81) 100 09/12/19 06:30 60 14 09/12/19 06:00 56 14 140/47 (78) 100 09/12/19 05:21 62 16 40 09/12/19 05:00 65 15 161/52 (88) 100 09/12/19 04:00 Mechanical Ventilator 09/12/19 04:00 40 09/12/19 04:00 63 09/12/19 04:00 98.7 60 15 157/69 (98) 100 09/12/19 03:25 67 16 40 09/12/19 03:00 61 17 174/56 (95) 100 09/12/19 02:00 53 15 160/49 (86) 100 09/12/19 01:41 68 15 40 09/12/19 01:00 55 16 150/52 (84) 99 09/12/19 00:00 40 09/12/19 00:00 Mechanical Ventilator 09/12/19 00:00 83 09/12/19 00:00 98.6 56 14 156/51 (86) 100 09/11/19 23:19 64 19 40 09/11/19 23:11 67 17 40 09/11/19 23:00 62 15 157/52 (87) 100 09/11/19 22:00 55 15 150/54 (86) 100 09/11/19 21:14 64 16 40 09/11/19 21:00 54 14 150/46 (80) 100 09/11/19 20:00 Mechanical Ventilator 09/11/19 20:00 57 09/11/19 20:00 98.6 56 15 140/47 (78) 100 09/11/19 20:00 40 09/11/19 19:37 56 14 40 09/11/19 19:00 55 14 139/46 (77) 100 09/11/19 18:00 57 15 141/49 (79) 100 I&O Intake and Output 09/11/19 09/12/19 19:00 07:00 Intake Total 1891.25 ml 1680 ml Output Total 680 ml 510 ml Balance 1211.25 ml 1170 ml Intake IV Total 921.25 ml 900 ml Tube Feeding 720 ml 720 ml Blood Product 250 ml Other 60 ml Output Urine Total 680 ml 510 ml Dressing: saturated Wound: clean Cardiovascular: RSR Respiratory: decreased breath sounds Abdomen: soft, present bowel sounds, non-distended Extremities: no tenderness, no cyanosis Laboratory Tests Test 09/12/19 04:00 White Blood Count 6.6 K/UL (4.8-10.8) Red Blood Count 3.29 M/UL (4.70-6.10) L Hemoglobin 8.8 G/DL (14.2-18.0) L Hematocrit 26.9 % (42.0-52.0) L Mean Corpuscular Volume 82 FL (80-99) Mean Corpuscular Hemoglobin 26.6 PG (27.0-31.0) L Mean Corpuscular Hemoglobin Concent 32.6 G/DL (32.0-36.0) Red Cell Distribution Width 18.9 % (11.6-14.8) H Platelet Count 168 K/UL (150-450) Mean Platelet Volume 6.6 FL (6.5-10.1) Neutrophils (%) (Auto) 63.3 % (45.0-75.0) Lymphocytes (%) (Auto) 20.4 % (20.0-45.0) Monocytes (%) (Auto) 8.6 % (1.0-10.0) Eosinophils (%) (Auto) 7.3 % (0.0-3.0) H Basophils (%) (Auto) 0.4 % (0.0-2.0) Sodium Level 143 MMOL/L (136-145) Potassium Level 3.5 MMOL/L (3.5-5.1) Chloride Level 111 MMOL/L (98-107) H Carbon Dioxide Level 20 MMOL/L (21-32) L Anion Gap 12 mmol/L (5-15) Blood Urea Nitrogen 25 mg/dL (7-18) H Creatinine 1.1 MG/DL (0.55-1.30) Estimat Glomerular Filtration Rate > 60 mL/min (>60) Glucose Level 106 MG/DL (74-106) Calcium Level 6.6 MG/DL (8.5-10.1) #L Phosphorus Level 2.7 MG/DL (2.5-4.9) Magnesium Level 1.9 MG/DL (1.8-2.4) Total Bilirubin 0.5 MG/DL (0.2-1.0) Direct Bilirubin 0.2 MG/DL (0.0-0.3) Aspartate Amino Transf (AST/SGOT) 64 U/L (15-37) H Alanine Aminotransferase (ALT/SGPT) 76 U/L (12-78) Alkaline Phosphatase 206 U/L (46-116) H Total Protein 7.2 G/DL (6.4-8.2) Albumin 1.8 G/DL (3.4-5.0) L Globulin 5.5 g/dL Albumin/Globulin Ratio 0.3 (1.0-2.7) L Plan Problems: (1) UTI (urinary tract infection) (2) Acute respiratory failure Assessment & Plan: There is infiltrate suspected in the right perihilar region obscuring the right hilum. There is a hazy opacity that may partially be accounted for by pleural fluid on the right. Reticular densities are present on the left in the perihilar aspect of the lung. Endotracheal tube is in good position just above the anselmo. Heart size is normal. IMPRESSION: Suspected perihilar airspace disease in the right lung suspicious for pneumonia. Reticular nodular infiltrate in the left lung noted also. Right pleural effusion suspected. Endotracheal tube in good position cont vents support (3) Sepsis Assessment & Plan: Pt cachetic and presented on admission with multiple pressure injuries. Partial thickness pressure injury Cleft of L ear(L)1.2cm x (W)0.4cm. Base of wound moist and viable with small amt sanguineous exudate. Partial thickness pressure injury cleft of R ear(L)0.5cm x (W)0.7cm. Base of wound moist and viable Periwound erythematous.Small amt sanguineous exudate noted. Sacral DTPI(L)5cm x (W)10.5cm. Base of injury is purple with maroon borders. Coccygeal bony protrusion with darker skin tone, and small opening noted to R gluteus (L)0.5cm x (W)0.5cm within base of injury. No further skin breakdown periwound. Intact blood blister noted to R 1st metatarsal head(L)1.1cm x (W)2.5cm. DTPI noted to L heel extending into plantar aspect. Base of injury presents as an intact blood filled blister. Periwound is boggy with non-blanching erythema. R heel is boggy but blanchable. wounds unlikely etiology of sepsis respiratory but given current condition high risk for breakdown and worsening will monitor closely discussed with RN and staff great care being provided Tx.Plan: Apply Betadine to clefts of R and L ears. Pad oxygen tubing with gauze and keep oxygen tubing loose. Apply Moisture Barrier Paste to Sacrum. Cover with Optifoam drsg. Change every 3 days and prn. Apply Betadine to L heel. Cover with Optifoam drsg. Change every 3 days and prn. Apply Betadine to R 1st metatarsal head. Cover with Optifoam drsg. Change every 3 days and prn. Apply Cavilon Skin Barrier R heel. Cover with Optifoam drsg. Change every 7 days and prn. Reposition at least every 2hours or as tolerated. Off-load heels with pillow. (4) Severe anemia (5) Nosocomial pneumonia (6) Atrial fibrillation (7) Acute metabolic encephalopathy (8) History of CVA (cerebrovascular accident) (9) Diabetes mellitus (10) Hypothyroidism (11) Alzheimer's dementia (12) PVC (premature ventricular contraction) (13) Hypertension (14) Squamous cell esophageal cancer (15) Feeding by G-tube (16) Dehydration (17) Anemia (18) Severe malnutrition Assessment & Plan: Pt cachetic and presented on admission with multiple pressure injuries. Partial thickness pressure injury Cleft of L ear(L)1.2cm x (W )0.4cm. Base of wound moist and viable with small amt sanguineous exudate. Partial thickness pressure injury cleft of R ear(L)0.5cm x (W)0.7cm. Base of wound moist and viable Periwound erythematous.Small amt sanguineous exudate noted. Sacral DTPI(L)5cm x (W)10.5cm. Base of injury is purple with maroon borders. Coccygeal bony protrusion with darker skin tone, and small opening noted to R gluteus (L)0.5cm x (W)0.5cm within base of injury. No further skin breakdown periwound. Intact blood blister noted to R 1st metatarsal head(L)1.1cm x (W)2.5cm. DTPI noted to L heel extending into plantar aspect. Base of injury presents as an intact blood filled blister. Periwound is boggy with non-blanching erythema. R heel is boggy but blanchable. Tx.Plan: Apply Betadine to clefts of R and L ears. Pad oxygen tubing with gauze and keep oxygen tubing loose. Apply Moisture Barrier Paste to Sacrum. Cover with Optifoam drsg. Change every 3 days and prn. Apply Betadine to L heel. Cover with Optifoam drsg. Change every 3 days and prn. Apply Betadine to R 1st metatarsal head. Cover with Optifoam drsg. Change every 3 days and prn. Apply Cavilon Skin Barrier R heel. Cover with Optifoam drsg. Change every 7 days and prn. Reposition at least every 2hours or as tolerated. Off-load heels with pillow. (19) Encounter for PEG (percutaneous endoscopic gastrostomy) (20) At high risk for aspiration (21) Pleural effusion (22) Suspected COVID-19 virus infection Jan Mora Sep 12, 2019 17:52
[2019-09-13] VITALS (29 sets, daily range): BP systolic 119–182; BP diastolic 39–70
[2019-09-13 04:16] LABS: BASOPHILS % (AUTO) 0.6 % (0.0-2.0); EOSINOPHILS % (AUTO) 6.3 % (0.0-3.0); HEMATOCRIT 27.4 % (42.0-52.0); HEMOGLOBIN 8.9 G/DL (14.2-18.0); LYMPHOCYTES % (AUTO) 22.3 % (20.0-45.0); MEAN CORPUSCULAR VOLUME 82 FL (80-99); MONOCYTES % (AUTO) 8.2 % (1.0-10.0); NEUTROPHILS % (AUTO) 62.6 % (45.0-75.0); PLATELET COUNT 195 K/UL (150-450); RED BLOOD COUNT 3.35 M/UL (4.70-6.10); RED CELL DISTRIBUTION WIDTH 18.9 % (11.6-14.8); WHITE BLOOD COUNT 6.6 K/UL (4.8-10.8)
[2019-09-13 04:43] LABS: ALANINE AMINOTRANSFERASE 64 U/L (12-78); ALBUMIN 1.7 G/DL (3.4-5.0); ALBUMIN/GLOBULIN RATIO 0.3 (1.0-2.7); ALKALINE PHOSPHATASE 187 U/L (46-116); ANION GAP 10 mmol/L (5-15); ASPARTATE AMINO TRANSFERASE 41 U/L (15-37); BILIRUBIN,TOTAL 0.2 MG/DL (0.2-1.0); BLOOD UREA NITROGEN 19 mg/dL (7-18); CALCIUM 8.5 MG/DL (8.5-10.1); CARBON DIOXIDE 24 MMOL/L (21-32); CHLORIDE 109 MMOL/L (98-107); CREATININE 1.1 MG/DL (0.55-1.30); PHOSPHORUS 2.2 MG/DL (2.5-4.9); POTASSIUM 3.6 MMOL/L (3.5-5.1); SODIUM 143 MMOL/L (136-145)
[2019-09-13] MEDS ORDERED: Potassium Phosphate 20 MM in NS 275 ML IV ONE (09:00)
[2019-09-13] MEDS: Cefepime HCl 1 GM in D5W 55 ML IV SCH (09:07)
[2019-09-13] MEDS: Pantoprazole Inj IVP SCH ×2 (09:07→20:31)
[2019-09-13] MEDS: Heparin 5000 units/ml inj SUBQ SCH ×2 (09:09→20:37)
--- NOTE | 2019-09-13 10:20 | Infectious Diseases Prog Note ---
Assessment/Plan Assessment/Plan Afebrile No leukocytosis PNA SARS-CoV neg x2 MRSA screen pos sp cx: PSA and proteus CXR: Right pleural effusion, also demonstrated on prior 08/09/2019 exam, slightly increased. Hazy right lung parenchymal opacity probably represents a superimposed pleural fluid but infiltrate also possible. QTc 419 DM HTN CVA Dementia Nonverbal G tube Plan: continue cefepime # 7/10-14 4/ SP vanc #4 ( Cr increased) f/u [facility] ICU care monitor temp and CBC DC COVID isolation isolation precaution per hospital protocol DW RN Thank you for this consult. [facility] will continue to follow the patient with you. Subjective Allergies: Coded Allergies: PENICILLINS (Verified Allergy, Unknown, 10/27/18) tolretas cephalosporins Subjective Afebrile. FiO2 40% No leukocytosis No pressors did not tolerate weaning for long Objective Vital Signs Last 24 Hour Vital Signs Date Time Temp Pulse Resp B/P (MAP) Pulse Ox O2 Delivery O2 Flow Rate FiO2 09/13/19 10:00 63 17 168/58 (94) 100 09/13/19 09:30 61 14 152/55 (87) 100 09/13/19 09:08 65 178/60 09/13/19 09:00 66 15 178/60 (99) 100 09/13/19 08:00 66 09/13/19 08:00 98.9 66 14 161/57 (91) 100 09/13/19 08:00 40 09/13/19 08:00 Mechanical Ventilator 09/13/19 07:25 72 21 40 09/13/19 07:00 67 15 176/67 (103) 09/13/19 06:30 61 14 09/13/19 06:00 61 14 164/60 (94) 100 09/13/19 05:24 77 22 40 09/13/19 05:00 78 17 182/68 (106) 100 09/13/19 04:00 98.8 90 26 166/62 (96) 100 09/13/19 04:00 90 09/13/19 04:00 40 09/13/19 04:00 Mechanical Ventilator 09/13/19 03:24 74 21 40 09/13/19 03:00 64 17 156/68 (97) 100 09/13/19 02:00 66 20 152/60 (90) 100 09/13/19 01:15 70 19 40 09/13/19 01:00 64 17 150/63 (92) 100 09/13/19 00:00 98.7 65 17 151/52 (85) 100 09/13/19 00:00 Mechanical Ventilator 09/12/19 23:01 71 18 40 09/12/19 23:00 70 16 149/60 (89) 100 09/12/19 23:00 67 16 132/51 (78) 100 09/12/19 22:00 70 16 149/60 (89) 100 09/12/19 21:19 74 19 40 09/12/19 21:00 76 21 184/66 (105) 100 09/12/19 20:00 40 09/12/19 20:00 98.8 72 22 152/50 (84) 97 09/12/19 20:00 Mechanical Ventilator 09/12/19 20:00 72 09/12/19 19:09 69 18 40 09/12/19 19:00 73 23 160/47 (84) 100 09/12/19 18:00 61 18 135/46 (75) 100 09/12/19 17:06 61 19 40 09/12/19 17:00 62 17 144/45 (78) 100 09/12/19 16:00 67 09/12/19 16:00 98.8 74 20 153/44 (80) 100 09/12/19 16:00 Mechanical Ventilator 09/12/19 16:00 40 09/12/19 15:30 67 17 40 09/12/19 15:00 67 18 137/50 (79) 100 09/12/19 14:00 67 21 143/59 (87) 100 09/12/19 13:00 65 16 138/53 (81) 100 09/12/19 12:00 59 09/12/19 12:00 40 09/12/19 12:00 Mechanical Ventilator 09/12/19 12:00 98.6 71 19 160/56 (90) 99 09/12/19 11:02 66 15 40 09/12/19 11:00 59 13 133/68 (89) 100 Height (Feet): 5 Height (Inches): 11.00 Weight (Pounds): 157 Objective Gen: NAD. well nourished HEENT: ETT Resp: coarse. equal chest rise. regular rate and rhythm. Abd: Soft. no TTP. nondistended. G tube site c/d/i. Neuro: opens eyes to voice Laboratory Tests Test 09/13/19 03:35 White Blood Count 6.6 K/UL (4.8-10.8) Red Blood Count 3.35 M/UL (4.70-6.10) L Hemoglobin 8.9 G/DL (14.2-18.0) L Hematocrit 27.4 % (42.0-52.0) L Mean Corpuscular Volume 82 FL (80-99) Mean Corpuscular Hemoglobin 26.6 PG (27.0-31.0) L Mean Corpuscular Hemoglobin Concent 32.5 G/DL (32.0-36.0) Red Cell Distribution Width 18.9 % (11.6-14.8) H Platelet Count 195 K/UL (150-450) Mean Platelet Volume 6.0 FL (6.5-10.1) L Neutrophils (%) (Auto) 62.6 % (45.0-75.0) Lymphocytes (%) (Auto) 22.3 % (20.0-45.0) Monocytes (%) (Auto) 8.2 % (1.0-10.0) Eosinophils (%) (Auto) 6.3 % (0.0-3.0) H Basophils (%) (Auto) 0.6 % (0.0-2.0) Sodium Level 143 MMOL/L (136-145) Potassium Level 3.6 MMOL/L (3.5-5.1) Chloride Level 109 MMOL/L (98-107) H Carbon Dioxide Level 24 MMOL/L (21-32) Anion Gap 10 mmol/L (5-15) Blood Urea Nitrogen 19 mg/dL (7-18) H Creatinine 1.1 MG/DL (0.55-1.30) Estimat Glomerular Filtration Rate > 60 mL/min (>60) Glucose Level 140 MG/DL (74-106) H Calcium Level 8.5 MG/DL (8.5-10.1) # Phosphorus Level 2.2 MG/DL (2.5-4.9) L Magnesium Level 1.7 MG/DL (1.8-2.4) L Total Bilirubin 0.2 MG/DL (0.2-1.0) Aspartate Amino Transf (AST/SGOT) 41 U/L (15-37) H Alanine Aminotransferase (ALT/SGPT) 64 U/L (12-78) Alkaline Phosphatase 187 U/L (46-116) H Total Protein 7.2 G/DL (6.4-8.2) Albumin 1.7 G/DL (3.4-5.0) L Globulin 5.5 g/dL Albumin/Globulin Ratio 0.3 (1.0-2.7) L Current Medications Medications (Trade) Dose Ordered Sig/Kike Route PRN Reason Start Time Stop Time Status Last Admin Dose Admin Acetaminophen (Tylenol) 650 mg Q4H PRN ORAL fever 09/09/19 04:30 10/07/19 04:29 Albuterol/ Ipratropium (Albuterol/ Ipratropium) 3 ml Q4H PRN HHN Shortness of Breath 09/09/19 04:30 09/14/19 04:29 Alprazolam (Xanax) 0.5 mg Q6H PRN ORAL For Anxiety 09/09/19 04:30 09/14/19 04:29 Amlodipine Besylate (Norvasc) 2.5 mg DAILY ORAL 09/09/19 09:00 10/07/19 08:59 09/13/19 09:08 Cefepime HCl 1 gm/ Dextrose 55 ml @ 110 mls/hr Q24H IV 09/10/19 09:00 09/17/19 08:59 09/13/19 09:07 Heparin Sodium (Porcine) (Heparin 5000 units/ml) 5,000 units EVERY 12 HOURS SUBQ 09/09/19 09:00 10/22/19 08:59 09/13/19 09:09 Levothyroxine Sodium (Synthroid) 75 mcg DAILY@0630 ORAL 09/12/19 06:30 10/07/19 08:29 09/13/19 06:51 Mirtazapine (Remeron) 7.5 mg BEDTIME ORAL 09/09/19 21:00 12/06/19 20:59 09/12/19 21:14 Nitroglycerin (Ntg) 0.4 mg Q5M PRN SL Prn Chest Pain 09/09/19 04:30 10/07/19 04:29 Ondansetron HCl (Zofran) 4 mg Q6H PRN IVP Nausea & Vomiting 09/09/19 04:30 10/07/19 04:29 Pantoprazole (Protonix) 40 mg Q12HR IVP 09/11/19 21:00 10/10/19 08:59 09/13/19 09:07 Polyethylene Glycol (Miralax) 17 gm DAILYPRN PRN ORAL Constipation 09/09/19 04:30 10/07/19 04:29 Potassium Phosphate 20 mm/ Sodium Chloride 281.6667 ml @ 46.944 m... ONCE ONCE IV 09/13/19 09:00 09/13/19 14:59 09/13/19 09:07 Promethazine HCl/ Codeine (Phenergan with Codeine) 5 ml Q4H PRN ORAL For Cough 09/09/19 04:30 10/07/19 04:29 Quetiapine Fumarate (SEROqueL) 25 mg Q8HR ORAL 09/09/19 06:00 10/22/19 08:14 09/13/19 06:51 Sodium Chloride 1,000 ml @ 75 mls/hr [id number] IV 09/11/19 10:00 10/11/19 09:59 09/13/19 00:36 Temazepam (Restoril) 15 mg HSPRN PRN ORAL Insomnia 09/09/19 08:15 09/14/19 08:14 Marcelina Matias MD Sep 13, 2019 10:20
--- NOTE | 2019-09-13 11:02 | Pulmonolgy Critical Care Note ---
Critical Care - Asmt/Plan Problems: (1) Acute respiratory failure (2) Suspected COVID-19 virus infection (3) Nosocomial pneumonia (4) Sepsis (5) Diabetes mellitus (6) At high risk for aspiration (7) Severe malnutrition (8) Feeding by G-tube (9) Squamous cell esophageal cancer (10) Alzheimer's dementia (11) History of CVA (cerebrovascular accident) Respiratory: monitor respiratory rate, adjust FIO2, CXR Cardiac: continue to monitor HR/BP Renal: F/U I&O Infectious Disease: check cultures, continue antibiotics Gastrointestinal: continue feedings/current rate Endocrine: monitor blood sugar Neurologic: PRN Ativan, PRN Morphine Prophylaxis: Protonix, Heparin Time Spent (Minutes): 40 Notes Reviewed: cardio, 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 with: nurses, 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 - Objective Last 24 Hour Vital Signs Date Time Temp Pulse Resp B/P (MAP) Pulse Ox O2 Delivery O2 Flow Rate FiO2 09/13/19 10:00 63 17 168/58 (94) 100 09/13/19 09:30 61 14 152/55 (87) 100 09/13/19 09:08 65 178/60 09/13/19 09:00 66 15 178/60 (99) 100 09/13/19 08:00 66 09/13/19 08:00 98.9 66 14 161/57 (91) 100 09/13/19 08:00 40 09/13/19 08:00 Mechanical Ventilator 09/13/19 07:25 72 21 40 09/13/19 07:00 67 15 176/67 (103) 09/13/19 06:30 61 14 09/13/19 06:00 61 14 164/60 (94) 100 09/13/19 05:24 77 22 40 09/13/19 05:00 78 17 182/68 (106) 100 09/13/19 04:00 98.8 90 26 166/62 (96) 100 09/13/19 04:00 90 09/13/19 04:00 40 09/13/19 04:00 Mechanical Ventilator 09/13/19 03:24 74 21 40 09/13/19 03:00 64 17 156/68 (97) 100 09/13/19 02:00 66 20 152/60 (90) 100 09/13/19 01:15 70 19 40 09/13/19 01:00 64 17 150/63 (92) 100 09/13/19 00:00 98.7 65 17 151/52 (85) 100 09/13/19 00:00 Mechanical Ventilator 09/12/19 23:01 71 18 40 09/12/19 23:00 70 16 149/60 (89) 100 09/12/19 23:00 67 16 132/51 (78) 100 09/12/19 22:00 70 16 149/60 (89) 100 09/12/19 21:19 74 19 40 09/12/19 21:00 76 21 184/66 (105) 100 09/12/19 20:00 40 09/12/19 20:00 98.8 72 22 152/50 (84) 97 09/12/19 20:00 Mechanical Ventilator 09/12/19 20:00 72 09/12/19 19:09 69 18 40 09/12/19 19:00 73 23 160/47 (84) 100 09/12/19 18:00 61 18 135/46 (75) 100 09/12/19 17:06 61 19 40 09/12/19 17:00 62 17 144/45 (78) 100 09/12/19 16:00 67 09/12/19 16:00 98.8 74 20 153/44 (80) 100 09/12/19 16:00 Mechanical Ventilator 09/12/19 16:00 40 09/12/19 15:30 67 17 40 09/12/19 15:00 67 18 137/50 (79) 100 09/12/19 14:00 67 21 143/59 (87) 100 09/12/19 13:00 65 16 138/53 (81) 100 09/12/19 12:00 59 09/12/19 12:00 40 09/12/19 12:00 Mechanical Ventilator 09/12/19 12:00 98.6 71 19 160/56 (90) 99 09/12/19 11:02 66 15 40 Status: awake Condition: critical HEENT: atraumatic Neck: full ROM Lungs: clear Heart: HR/BP stable Abdomen: soft, feeding tube Extremities: edema Critical Care - Subjective ROS Limited/Unobtainable: Yes Condition: critical EKG Rhythm: Sinus Rhythm FI02: 40 Vent Support Breath Rate: 14 Vent Support Mode: AC Vent Tidal Volume: 550 Sputum Amount: Small PEEP: 5.0 PIP: 26 Tube Feeding Amount: 60 I&O: Intake and Output 09/12/19 09/13/19 19:00 07:00 Intake Total 1665 ml 1080 ml Output Total 695 ml 810 ml Balance 970 ml 270 ml Intake Free Water 180 ml IV Total 845 ml Tube Feeding 720 ml 600 ml Blood Product 250 ml Other 100 ml 50 ml Output Urine Total 695 ml 810 ml # Bowel Movements 3 CXR: extensive infiltrate ET-Tube: 7.5 ET Position: 23 Labs: Laboratory Tests Test 09/13/19 03:35 White Blood Count 6.6 K/UL (4.8-10.8) Red Blood Count 3.35 M/UL (4.70-6.10) L Hemoglobin 8.9 G/DL (14.2-18.0) L Hematocrit 27.4 % (42.0-52.0) L Mean Corpuscular Volume 82 FL (80-99) Mean Corpuscular Hemoglobin 26.6 PG (27.0-31.0) L Mean Corpuscular Hemoglobin Concent 32.5 G/DL (32.0-36.0) Red Cell Distribution Width 18.9 % (11.6-14.8) H Platelet Count 195 K/UL (150-450) Mean Platelet Volume 6.0 FL (6.5-10.1) L Neutrophils (%) (Auto) 62.6 % (45.0-75.0) Lymphocytes (%) (Auto) 22.3 % (20.0-45.0) Monocytes (%) (Auto) 8.2 % (1.0-10.0) Eosinophils (%) (Auto) 6.3 % (0.0-3.0) H Basophils (%) (Auto) 0.6 % (0.0-2.0) Sodium Level 143 MMOL/L (136-145) Potassium Level 3.6 MMOL/L (3.5-5.1) Chloride Level 109 MMOL/L (98-107) H Carbon Dioxide Level 24 MMOL/L (21-32) Anion Gap 10 mmol/L (5-15) Blood Urea Nitrogen 19 mg/dL (7-18) H Creatinine 1.1 MG/DL (0.55-1.30) Estimat Glomerular Filtration Rate > 60 mL/min (>60) Glucose Level 140 MG/DL (74-106) H Calcium Level 8.5 MG/DL (8.5-10.1) # Phosphorus Level 2.2 MG/DL (2.5-4.9) L Magnesium Level 1.7 MG/DL (1.8-2.4) L Total Bilirubin 0.2 MG/DL (0.2-1.0) Aspartate Amino Transf (AST/SGOT) 41 U/L (15-37) H Alanine Aminotransferase (ALT/SGPT) 64 U/L (12-78) Alkaline Phosphatase 187 U/L (46-116) H Total Protein 7.2 G/DL (6.4-8.2) Albumin 1.7 G/DL (3.4-5.0) L Globulin 5.5 g/dL Albumin/Globulin Ratio 0.3 (1.0-2.7) L Vania Hui MD Sep 13, 2019 11:02
--- NOTE | 2019-09-13 13:05 | Nephrology Progress Note ---
Assessment/Plan Problem List: (1) RAMAN (acute kidney injury) Assessment: Serum creatinine normalized with hydration (2) Dehydration (3) Suspected COVID-19 virus infection (4) Anemia (5) Sepsis (6) Diabetes mellitus (7) Hypothyroidism Assessment - Acute renal failure - Severe anemia - Sepsis, pneumonia, acute respiratory failure, suspected: Viewed 19 virus infection - Diabetes mellitus - Hypothyroidism - Feeding by G-tube - Squamous cell esophageal cancer - History of CVA (cerebrovascular accident) Plan Plan: Discontinue IV fluid Monitor renal parameters, serum creatinine Adjust electrolytes with supplements Increase Synthroid dose Avoid nephrotoxic's as possible Ventilator management Urine studies Per orders Subjective ROS Limited/Unobtainable: Yes Objective Objective Last 24 Hour Vital Signs Date Time Temp Pulse Resp B/P (MAP) Pulse Ox O2 Delivery O2 Flow Rate FiO2 09/13/19 12:30 61 15 151/54 (86) 100 09/13/19 12:00 98.4 65 20 170/53 (92) 100 09/13/19 12:00 Mechanical Ventilator 09/13/19 12:00 63 09/13/19 12:00 40 09/13/19 11:00 62 15 164/56 (92) 100 09/13/19 10:00 63 17 168/58 (94) 100 09/13/19 09:30 61 14 152/55 (87) 100 09/13/19 09:08 65 178/60 09/13/19 09:00 66 15 178/60 (99) 100 09/13/19 08:00 66 09/13/19 08:00 98.9 66 14 161/57 (91) 100 09/13/19 08:00 40 09/13/19 08:00 Mechanical Ventilator 09/13/19 07:25 72 21 40 09/13/19 07:00 67 15 176/67 (103) 09/13/19 06:30 61 14 09/13/19 06:00 61 14 164/60 (94) 100 09/13/19 05:24 77 22 40 09/13/19 05:00 78 17 182/68 (106) 100 09/13/19 04:00 98.8 90 26 166/62 (96) 100 09/13/19 04:00 90 09/13/19 04:00 40 09/13/19 04:00 Mechanical Ventilator 09/13/19 03:24 74 21 40 09/13/19 03:00 64 17 156/68 (97) 100 09/13/19 02:00 66 20 152/60 (90) 100 09/13/19 01:15 70 19 40 09/13/19 01:00 64 17 150/63 (92) 100 09/13/19 00:00 98.7 65 17 151/52 (85) 100 09/13/19 00:00 Mechanical Ventilator 09/12/19 23:01 71 18 40 09/12/19 23:00 70 16 149/60 (89) 100 09/12/19 23:00 67 16 132/51 (78) 100 09/12/19 22:00 70 16 149/60 (89) 100 09/12/19 21:19 74 19 40 09/12/19 21:00 76 21 184/66 (105) 100 09/12/19 20:00 40 09/12/19 20:00 98.8 72 22 152/50 (84) 97 09/12/19 20:00 Mechanical Ventilator 09/12/19 20:00 72 09/12/19 19:09 69 18 40 09/12/19 19:00 73 23 160/47 (84) 100 09/12/19 18:00 61 18 135/46 (75) 100 09/12/19 17:06 61 19 40 09/12/19 17:00 62 17 144/45 (78) 100 09/12/19 16:00 67 09/12/19 16:00 98.8 74 20 153/44 (80) 100 09/12/19 16:00 Mechanical Ventilator 09/12/19 16:00 40 09/12/19 15:30 67 17 40 09/12/19 15:00 67 18 137/50 (79) 100 09/12/19 14:00 67 21 143/59 (87) 100 Intake and Output 09/12/19 09/13/19 19:00 07:00 Intake Total 1665 ml 1080 ml Output Total 695 ml 810 ml Balance 970 ml 270 ml Intake Free Water 180 ml IV Total 845 ml Tube Feeding 720 ml 600 ml Blood Product 250 ml Other 100 ml 50 ml Output Urine Total 695 ml 810 ml # Bowel Movements 3 Current Medications Medications (Trade) Dose Ordered Sig/Kike Route PRN Reason Start Time Stop Time Status Last Admin Dose Admin Acetaminophen (Tylenol) 650 mg Q4H PRN ORAL fever 09/09/19 04:30 10/07/19 04:29 Albuterol/ Ipratropium (Albuterol/ Ipratropium) 3 ml Q4H PRN HHN Shortness of Breath 09/09/19 04:30 09/14/19 04:29 Alprazolam (Xanax) 0.5 mg Q6H PRN ORAL For Anxiety 09/09/19 04:30 09/14/19 04:29 Amlodipine Besylate (Norvasc) 2.5 mg DAILY ORAL 09/09/19 09:00 10/07/19 08:59 09/13/19 09:08 Cefepime HCl 1 gm/ Dextrose 55 ml @ 110 mls/hr Q24H IV 09/10/19 09:00 09/17/19 08:59 09/13/19 09:07 Heparin Sodium (Porcine) (Heparin 5000 units/ml) 5,000 units EVERY 12 HOURS SUBQ 09/09/19 09:00 10/22/19 08:59 09/13/19 09:09 Levothyroxine Sodium (Synthroid) 75 mcg DAILY@0630 ORAL 09/12/19 06:30 10/07/19 08:29 09/13/19 06:51 Mirtazapine (Remeron) 7.5 mg BEDTIME ORAL 09/09/19 21:00 12/06/19 20:59 09/12/19 21:14 Nitroglycerin (Ntg) 0.4 mg Q5M PRN SL Prn Chest Pain 09/09/19 04:30 10/07/19 04:29 Ondansetron HCl (Zofran) 4 mg Q6H PRN IVP Nausea & Vomiting 09/09/19 04:30 10/07/19 04:29 Pantoprazole (Protonix) 40 mg Q12HR IVP 09/11/19 21:00 10/10/19 08:59 09/13/19 09:07 Polyethylene Glycol (Miralax) 17 gm DAILYPRN PRN ORAL Constipation 09/09/19 04:30 10/07/19 04:29 Potassium Phosphate 20 mm/ Sodium Chloride 281.6667 ml @ 46.944 m... ONCE ONCE IV 09/13/19 09:00 09/13/19 14:59 09/13/19 09:07 Promethazine HCl/ Codeine (Phenergan with Codeine) 5 ml Q4H PRN ORAL For Cough 09/09/19 04:30 10/07/19 04:29 Quetiapine Fumarate (SEROqueL) 25 mg Q8HR ORAL 09/09/19 06:00 10/22/19 08:14 09/13/19 06:51 Sodium Chloride 1,000 ml @ 75 mls/hr [id number] IV 09/11/19 10:00 10/11/19 09:59 09/13/19 00:36 Temazepam (Restoril) 15 mg HSPRN PRN ORAL Insomnia 09/09/19 08:15 09/14/19 08:14 Laboratory Tests 09/13/19 03:35: White Blood Count 6.6, Red Blood Count 3.35L, Hemoglobin 8.9L, Hematocrit 27.4L , Mean Corpuscular Volume 82, Mean Corpuscular Hemoglobin 26.6L, Mean Corpuscular Hemoglobin Concent 32.5, Red Cell Distribution Width 18.9H, Platelet Count 195, Mean Platelet Volume 6.0L, Neutrophils (%) (Auto) 62.6, Lymphocytes (%) (Auto) 22.3, Monocytes (%) (Auto) 8.2, Eosinophils (%) (Auto) 6.3H, Basophils (%) (Auto) 0.6, Sodium Level 143, Potassium Level 3.6, Chloride Level 109H, Carbon Dioxide Level 24, Anion Gap 10, Blood Urea Nitrogen 19H, Creatinine 1.1, Estimat Glomerular Filtration Rate > 60, Glucose Level 140H, Calcium Level 8.5#, Phosphorus Level 2.2L, Magnesium Level 1.7L, Total Bilirubin 0.2, Aspartate Amino Transf (AST/SGOT) 41H, Alanine Aminotransferase ( ALT/SGPT) 64, Alkaline Phosphatase 187H, Total Protein 7.2, Albumin 1.7L, Globulin 5.5, Albumin/Globulin Ratio 0.3L Height (Feet): 5 Height (Inches): 11.00 Weight (Pounds): 157 General Appearance: no apparent distress EENT: other - Remains intubated and vented Cardiovascular: normal rate Respiratory/Chest: decreased breath sounds Abdomen: distended Clovis Benites MD Sep 13, 2019 13:05
--- NOTE | 2019-09-13 13:09 | Surgery Progress Note ---
Surgery Progress Note Subjective Additional Comments no acute events ill appearing labs reviewed exam stable Objective Last 24 Hour Vital Signs Date Time Temp Pulse Resp B/P (MAP) Pulse Ox O2 Delivery O2 Flow Rate FiO2 09/13/19 12:30 61 15 151/54 (86) 100 09/13/19 12:00 98.4 65 20 170/53 (92) 100 09/13/19 12:00 Mechanical Ventilator 09/13/19 12:00 63 09/13/19 12:00 40 09/13/19 11:00 62 15 164/56 (92) 100 09/13/19 10:00 63 17 168/58 (94) 100 09/13/19 09:30 61 14 152/55 (87) 100 09/13/19 09:08 65 178/60 09/13/19 09:00 66 15 178/60 (99) 100 09/13/19 08:00 66 09/13/19 08:00 98.9 66 14 161/57 (91) 100 09/13/19 08:00 40 09/13/19 08:00 Mechanical Ventilator 09/13/19 07:25 72 21 40 09/13/19 07:00 67 15 176/67 (103) 09/13/19 06:30 61 14 09/13/19 06:00 61 14 164/60 (94) 100 09/13/19 05:24 77 22 40 09/13/19 05:00 78 17 182/68 (106) 100 09/13/19 04:00 98.8 90 26 166/62 (96) 100 09/13/19 04:00 90 09/13/19 04:00 40 09/13/19 04:00 Mechanical Ventilator 09/13/19 03:24 74 21 40 09/13/19 03:00 64 17 156/68 (97) 100 09/13/19 02:00 66 20 152/60 (90) 100 09/13/19 01:15 70 19 40 09/13/19 01:00 64 17 150/63 (92) 100 09/13/19 00:00 98.7 65 17 151/52 (85) 100 09/13/19 00:00 Mechanical Ventilator 09/12/19 23:01 71 18 40 09/12/19 23:00 70 16 149/60 (89) 100 09/12/19 23:00 67 16 132/51 (78) 100 09/12/19 22:00 70 16 149/60 (89) 100 09/12/19 21:19 74 19 40 09/12/19 21:00 76 21 184/66 (105) 100 09/12/19 20:00 40 09/12/19 20:00 98.8 72 22 152/50 (84) 97 09/12/19 20:00 Mechanical Ventilator 09/12/19 20:00 72 09/12/19 19:09 69 18 40 09/12/19 19:00 73 23 160/47 (84) 100 09/12/19 18:00 61 18 135/46 (75) 100 09/12/19 17:06 61 19 40 09/12/19 17:00 62 17 144/45 (78) 100 09/12/19 16:00 67 09/12/19 16:00 98.8 74 20 153/44 (80) 100 09/12/19 16:00 Mechanical Ventilator 09/12/19 16:00 40 09/12/19 15:30 67 17 40 09/12/19 15:00 67 18 137/50 (79) 100 09/12/19 14:00 67 21 143/59 (87) 100 I&O Intake and Output 09/12/19 09/13/19 19:00 07:00 Intake Total 1665 ml 1080 ml Output Total 695 ml 810 ml Balance 970 ml 270 ml Intake Free Water 180 ml IV Total 845 ml Tube Feeding 720 ml 600 ml Blood Product 250 ml Other 100 ml 50 ml Output Urine Total 695 ml 810 ml # Bowel Movements 3 Dressing: saturated Wound: other Drains: other Cardiovascular: RSR Respiratory: decreased breath sounds Abdomen: soft, non-tender, present bowel sounds Extremities: no cyanosis Laboratory Tests Test 09/13/19 03:35 White Blood Count 6.6 K/UL (4.8-10.8) Red Blood Count 3.35 M/UL (4.70-6.10) L Hemoglobin 8.9 G/DL (14.2-18.0) L Hematocrit 27.4 % (42.0-52.0) L Mean Corpuscular Volume 82 FL (80-99) Mean Corpuscular Hemoglobin 26.6 PG (27.0-31.0) L Mean Corpuscular Hemoglobin Concent 32.5 G/DL (32.0-36.0) Red Cell Distribution Width 18.9 % (11.6-14.8) H Platelet Count 195 K/UL (150-450) Mean Platelet Volume 6.0 FL (6.5-10.1) L Neutrophils (%) (Auto) 62.6 % (45.0-75.0) Lymphocytes (%) (Auto) 22.3 % (20.0-45.0) Monocytes (%) (Auto) 8.2 % (1.0-10.0) Eosinophils (%) (Auto) 6.3 % (0.0-3.0) H Basophils (%) (Auto) 0.6 % (0.0-2.0) Sodium Level 143 MMOL/L (136-145) Potassium Level 3.6 MMOL/L (3.5-5.1) Chloride Level 109 MMOL/L (98-107) H Carbon Dioxide Level 24 MMOL/L (21-32) Anion Gap 10 mmol/L (5-15) Blood Urea Nitrogen 19 mg/dL (7-18) H Creatinine 1.1 MG/DL (0.55-1.30) Estimat Glomerular Filtration Rate > 60 mL/min (>60) Glucose Level 140 MG/DL (74-106) H Calcium Level 8.5 MG/DL (8.5-10.1) # Phosphorus Level 2.2 MG/DL (2.5-4.9) L Magnesium Level 1.7 MG/DL (1.8-2.4) L Total Bilirubin 0.2 MG/DL (0.2-1.0) Aspartate Amino Transf (AST/SGOT) 41 U/L (15-37) H Alanine Aminotransferase (ALT/SGPT) 64 U/L (12-78) Alkaline Phosphatase 187 U/L (46-116) H Total Protein 7.2 G/DL (6.4-8.2) Albumin 1.7 G/DL (3.4-5.0) L Globulin 5.5 g/dL Albumin/Globulin Ratio 0.3 (1.0-2.7) L Plan Problems: (1) UTI (urinary tract infection) (2) Acute respiratory failure Assessment & Plan: There is infiltrate suspected in the right perihilar region obscuring the right hilum. There is a hazy opacity that may partially be accounted for by pleural fluid on the right. Reticular densities are present on the left in the perihilar aspect of the lung. Endotracheal tube is in good position just above the anselmo. Heart size is normal. IMPRESSION: Suspected perihilar airspace disease in the right lung suspicious for pneumonia. Reticular nodular infiltrate in the left lung noted also. Right pleural effusion suspected. Endotracheal tube in good position cont vents support (3) Sepsis Assessment & Plan: Pt cachetic and presented on admission with multiple pressure injuries. Partial thickness pressure injury Cleft of L ear(L)1.2cm x (W)0.4cm. Base of wound moist and viable with small amt sanguineous exudate. Partial thickness pressure injury cleft of R ear(L)0.5cm x (W)0.7cm. Base of wound moist and viable Periwound erythematous.Small amt sanguineous exudate noted. Sacral DTPI(L)5cm x (W)10.5cm. Base of injury is purple with maroon borders. Coccygeal bony protrusion with darker skin tone, and small opening noted to R gluteus (L)0.5cm x (W)0.5cm within base of injury. No further skin breakdown periwound. Intact blood blister noted to R 1st metatarsal head(L)1.1cm x (W)2.5cm. DTPI noted to L heel extending into plantar aspect. Base of injury presents as an intact blood filled blister. Periwound is boggy with non-blanching erythema. R heel is boggy but blanchable. wounds unlikely etiology of sepsis respiratory but given current condition high risk for breakdown and worsening will monitor closely discussed with RN and staff great care being provided Tx.Plan: Apply Betadine to clefts of R and L ears. Pad oxygen tubing with gauze and keep oxygen tubing loose. Apply Moisture Barrier Paste to Sacrum. Cover with Optifoam drsg. Change every 3 days and prn. Apply Betadine to L heel. Cover with Optifoam drsg. Change every 3 days and prn. Apply Betadine to R 1st metatarsal head. Cover with Optifoam drsg. Change every 3 days and prn. Apply Cavilon Skin Barrier R heel. Cover with Optifoam drsg. Change every 7 days and prn. Reposition at least every 2hours or as tolerated. Off-load heels with pillow. (4) Severe anemia (5) Nosocomial pneumonia (6) Atrial fibrillation (7) Acute metabolic encephalopathy (8) History of CVA (cerebrovascular accident) (9) Diabetes mellitus (10) Hypothyroidism (11) Alzheimer's dementia (12) PVC (premature ventricular contraction) (13) Hypertension (14) Squamous cell esophageal cancer (15) Feeding by G-tube (16) Dehydration (17) Anemia (18) Severe malnutrition Assessment & Plan: Pt cachetic and presented on admission with multiple pressure injuries. Partial thickness pressure injury Cleft of L ear(L)1.2cm x (W )0.4cm. Base of wound moist and viable with small amt sanguineous exudate. Partial thickness pressure injury cleft of R ear(L)0.5cm x (W)0.7cm. Base of wound moist and viable Periwound erythematous.Small amt sanguineous exudate noted. Sacral DTPI(L)5cm x (W)10.5cm. Base of injury is purple with maroon borders. Coccygeal bony protrusion with darker skin tone, and small opening noted to R gluteus (L)0.5cm x (W)0.5cm within base of injury. No further skin breakdown periwound. Intact blood blister noted to R 1st metatarsal head(L)1.1cm x (W)2.5cm. DTPI noted to L heel extending into plantar aspect. Base of injury presents as an intact blood filled blister. Periwound is boggy with non-blanching erythema. R heel is boggy but blanchable. Tx.Plan: Apply Betadine to clefts of R and L ears. Pad oxygen tubing with gauze and keep oxygen tubing loose. Apply Moisture Barrier Paste to Sacrum. Cover with Optifoam drsg. Change every 3 days and prn. Apply Betadine to L heel. Cover with Optifoam drsg. Change every 3 days and prn. Apply Betadine to R 1st metatarsal head. Cover with Optifoam drsg. Change every 3 days and prn. Apply Cavilon Skin Barrier R heel. Cover with Optifoam drsg. Change every 7 days and prn. Reposition at least every 2hours or as tolerated. Off-load heels with pillow. (19) Encounter for PEG (percutaneous endoscopic gastrostomy) (20) At high risk for aspiration (21) Pleural effusion (22) Suspected COVID-19 virus infection Jan Mora Sep 13, 2019 13:08
--- NOTE | 2019-09-13 13:09 | Nephrology Progress Note ---
Assessment/Plan Problem List: (1) RAMAN (acute kidney injury) Assessment: Serum creatinine normalized with hydration (2) Dehydration (3) Suspected COVID-19 virus infection (4) Anemia (5) Sepsis (6) Diabetes mellitus (7) Hypothyroidism Assessment - Acute renal failure - Severe anemia - Sepsis, pneumonia, acute respiratory failure, suspected: Viewed 19 virus infection - Diabetes mellitus - Hypothyroidism - Feeding by G-tube - Squamous cell esophageal cancer - History of CVA (cerebrovascular accident) Plan Plan: Monitor renal parameters, serum creatinine rising Stop IV fluid Adjust BP meds 2D echocardiogram Adjust electrolytes with supplements Increase Synthroid dose Change IV to half-normal saline Avoid nephrotoxic's as possible Ventilator management Urine studies Per orders Subjective ROS Limited/Unobtainable: No Interval Events/Complaints Now extubated Constitutional: Reports: malaise, weakness Objective Objective Last 24 Hour Vital Signs Date Time Temp Pulse Resp B/P (MAP) Pulse Ox O2 Delivery O2 Flow Rate FiO2 09/13/19 12:30 61 15 151/54 (86) 100 09/13/19 12:00 98.4 65 20 170/53 (92) 100 09/13/19 12:00 Mechanical Ventilator 09/13/19 12:00 63 09/13/19 12:00 40 09/13/19 11:00 62 15 164/56 (92) 100 09/13/19 10:00 63 17 168/58 (94) 100 09/13/19 09:30 61 14 152/55 (87) 100 09/13/19 09:08 65 178/60 09/13/19 09:00 66 15 178/60 (99) 100 09/13/19 08:00 66 09/13/19 08:00 98.9 66 14 161/57 (91) 100 09/13/19 08:00 40 09/13/19 08:00 Mechanical Ventilator 09/13/19 07:25 72 21 40 09/13/19 07:00 67 15 176/67 (103) 09/13/19 06:30 61 14 09/13/19 06:00 61 14 164/60 (94) 100 09/13/19 05:24 77 22 40 09/13/19 05:00 78 17 182/68 (106) 100 09/13/19 04:00 98.8 90 26 166/62 (96) 100 09/13/19 04:00 90 09/13/19 04:00 40 09/13/19 04:00 Mechanical Ventilator 09/13/19 03:24 74 21 40 09/13/19 03:00 64 17 156/68 (97) 100 09/13/19 02:00 66 20 152/60 (90) 100 09/13/19 01:15 70 19 40 09/13/19 01:00 64 17 150/63 (92) 100 09/13/19 00:00 98.7 65 17 151/52 (85) 100 09/13/19 00:00 Mechanical Ventilator 09/12/19 23:01 71 18 40 09/12/19 23:00 70 16 149/60 (89) 100 09/12/19 23:00 67 16 132/51 (78) 100 09/12/19 22:00 70 16 149/60 (89) 100 09/12/19 21:19 74 19 40 09/12/19 21:00 76 21 184/66 (105) 100 09/12/19 20:00 40 09/12/19 20:00 98.8 72 22 152/50 (84) 97 09/12/19 20:00 Mechanical Ventilator 09/12/19 20:00 72 09/12/19 19:09 69 18 40 09/12/19 19:00 73 23 160/47 (84) 100 09/12/19 18:00 61 18 135/46 (75) 100 09/12/19 17:06 61 19 40 09/12/19 17:00 62 17 144/45 (78) 100 09/12/19 16:00 67 09/12/19 16:00 98.8 74 20 153/44 (80) 100 09/12/19 16:00 Mechanical Ventilator 09/12/19 16:00 40 09/12/19 15:30 67 17 40 09/12/19 15:00 67 18 137/50 (79) 100 09/12/19 14:00 67 21 143/59 (87) 100 Intake and Output 09/12/19 09/13/19 19:00 07:00 Intake Total 1665 ml 1080 ml Output Total 695 ml 810 ml Balance 970 ml 270 ml Intake Free Water 180 ml IV Total 845 ml Tube Feeding 720 ml 600 ml Blood Product 250 ml Other 100 ml 50 ml Output Urine Total 695 ml 810 ml # Bowel Movements 3 Current Medications Medications (Trade) Dose Ordered Sig/Kike Route PRN Reason Start Time Stop Time Status Last Admin Dose Admin Acetaminophen (Tylenol) 650 mg Q4H PRN ORAL fever 09/09/19 04:30 10/07/19 04:29 Albuterol/ Ipratropium (Albuterol/ Ipratropium) 3 ml Q4H PRN HHN Shortness of Breath 09/09/19 04:30 09/14/19 04:29 Alprazolam (Xanax) 0.5 mg Q6H PRN ORAL For Anxiety 09/09/19 04:30 09/14/19 04:29 Amlodipine Besylate (Norvasc) 2.5 mg DAILY ORAL 09/09/19 09:00 10/07/19 08:59 09/13/19 09:08 Cefepime HCl 1 gm/ Dextrose 55 ml @ 110 mls/hr Q24H IV 09/10/19 09:00 09/17/19 08:59 09/13/19 09:07 Heparin Sodium (Porcine) (Heparin 5000 units/ml) 5,000 units EVERY 12 HOURS SUBQ 09/09/19 09:00 10/22/19 08:59 09/13/19 09:09 Levothyroxine Sodium (Synthroid) 75 mcg DAILY@0630 ORAL 09/12/19 06:30 10/07/19 08:29 09/13/19 06:51 Mirtazapine (Remeron) 7.5 mg BEDTIME ORAL 09/09/19 21:00 12/06/19 20:59 09/12/19 21:14 Nitroglycerin (Ntg) 0.4 mg Q5M PRN SL Prn Chest Pain 09/09/19 04:30 10/07/19 04:29 Ondansetron HCl (Zofran) 4 mg Q6H PRN IVP Nausea & Vomiting 09/09/19 04:30 10/07/19 04:29 Pantoprazole (Protonix) 40 mg Q12HR IVP 09/11/19 21:00 10/10/19 08:59 09/13/19 09:07 Polyethylene Glycol (Miralax) 17 gm DAILYPRN PRN ORAL Constipation 09/09/19 04:30 10/07/19 04:29 Potassium Phosphate 20 mm/ Sodium Chloride 281.6667 ml @ 46.944 m... ONCE ONCE IV 09/13/19 09:00 09/13/19 14:59 09/13/19 09:07 Promethazine HCl/ Codeine (Phenergan with Codeine) 5 ml Q4H PRN ORAL For Cough 09/09/19 04:30 10/07/19 04:29 Quetiapine Fumarate (SEROqueL) 25 mg Q8HR ORAL 09/09/19 06:00 10/22/19 08:14 09/13/19 06:51 Sodium Chloride 1,000 ml @ 75 mls/hr [id number] IV 09/11/19 10:00 10/11/19 09:59 09/13/19 00:36 Temazepam (Restoril) 15 mg HSPRN PRN ORAL Insomnia 09/09/19 08:15 09/14/19 08:14 Laboratory Tests 09/13/19 03:35: White Blood Count 6.6, Red Blood Count 3.35L, Hemoglobin 8.9L, Hematocrit 27.4L , Mean Corpuscular Volume 82, Mean Corpuscular Hemoglobin 26.6L, Mean Corpuscular Hemoglobin Concent 32.5, Red Cell Distribution Width 18.9H, Platelet Count 195, Mean Platelet Volume 6.0L, Neutrophils (%) (Auto) 62.6, Lymphocytes (%) (Auto) 22.3, Monocytes (%) (Auto) 8.2, Eosinophils (%) (Auto) 6.3H, Basophils (%) (Auto) 0.6, Sodium Level 143, Potassium Level 3.6, Chloride Level 109H, Carbon Dioxide Level 24, Anion Gap 10, Blood Urea Nitrogen 19H, Creatinine 1.1, Estimat Glomerular Filtration Rate > 60, Glucose Level 140H, Calcium Level 8.5#, Phosphorus Level 2.2L, Magnesium Level 1.7L, Total Bilirubin 0.2, Aspartate Amino Transf (AST/SGOT) 41H, Alanine Aminotransferase ( ALT/SGPT) 64, Alkaline Phosphatase 187H, Total Protein 7.2, Albumin 1.7L, Globulin 5.5, Albumin/Globulin Ratio 0.3L Height (Feet): 5 Height (Inches): 11.00 Weight (Pounds): 157 General Appearance: no apparent distress, lethargic EENT: other - On oxygen mask Cardiovascular: normal rate Respiratory/Chest: decreased breath sounds Abdomen: distended Clovis Benites MD Sep 13, 2019 13:09
--- NOTE | 2019-09-13 16:30 | Internal Med Progress Note ---
Subjective Date of Service: Sep 13, 2019 Physician Name NiurkaXander Attending Physician Lamont Hayes MD Current Medications Medications (Trade) Dose Ordered Sig/Kike Route PRN Reason Start Time Stop Time Status Last Admin Dose Admin Acetaminophen (Tylenol) 650 mg Q4H PRN ORAL fever 09/09/19 04:30 10/07/19 04:29 Albuterol/ Ipratropium (Albuterol/ Ipratropium) 3 ml Q4H PRN HHN Shortness of Breath 09/09/19 04:30 09/14/19 04:29 Alprazolam (Xanax) 0.5 mg Q6H PRN ORAL For Anxiety 09/09/19 04:30 09/14/19 04:29 Amlodipine Besylate (Norvasc) 2.5 mg BID ORAL 09/13/19 18:00 10/07/19 08:59 Cefepime HCl 1 gm/ Dextrose 55 ml @ 110 mls/hr Q24H IV 09/10/19 09:00 09/17/19 08:59 09/13/19 09:07 Heparin Sodium (Porcine) (Heparin 5000 units/ml) 5,000 units EVERY 12 HOURS SUBQ 09/09/19 09:00 10/22/19 08:59 09/13/19 09:09 Levothyroxine Sodium (Synthroid) 75 mcg DAILY@0630 ORAL 09/12/19 06:30 10/07/19 08:29 09/13/19 06:51 Mirtazapine (Remeron) 7.5 mg BEDTIME ORAL 09/09/19 21:00 12/06/19 20:59 09/12/19 21:14 Nitroglycerin (Ntg) 0.4 mg Q5M PRN SL Prn Chest Pain 09/09/19 04:30 10/07/19 04:29 Ondansetron HCl (Zofran) 4 mg Q6H PRN IVP Nausea & Vomiting 09/09/19 04:30 10/07/19 04:29 Pantoprazole (Protonix) 40 mg Q12HR IVP 09/11/19 21:00 10/10/19 08:59 09/13/19 09:07 Polyethylene Glycol (Miralax) 17 gm DAILYPRN PRN ORAL Constipation 09/09/19 04:30 10/07/19 04:29 Promethazine HCl/ Codeine (Phenergan with Codeine) 5 ml Q4H PRN ORAL For Cough 09/09/19 04:30 10/07/19 04:29 Quetiapine Fumarate (SEROqueL) 25 mg Q8HR ORAL 09/09/19 06:00 10/22/19 08:14 09/13/19 13:33 Temazepam (Restoril) 15 mg HSPRN PRN ORAL Insomnia 09/09/19 08:15 09/14/19 08:14 Allergies: Coded Allergies: PENICILLINS (Verified Allergy, Unknown, 10/27/18) tolretas cephalosporins ROS Limited/Unobtainable: Yes Subjective 84 YO M admitted with cough and congestion. Now right pleural effusion and pneumonia. Cover for Int Ravi-Dr Hayes. ICU. Intubated and sedated Objective Last Vital Signs Date Time Temp Pulse Resp B/P (MAP) Pulse Ox O2 Delivery O2 Flow Rate FiO2 09/13/19 16:00 40 09/13/19 16:00 98.9 67 16 181/70 (107) 100 09/13/19 16:00 Mechanical Ventilator 09/08/19 21:00 2.0 Laboratory Tests Test 09/13/19 03:35 White Blood Count 6.6 K/UL (4.8-10.8) Red Blood Count 3.35 M/UL (4.70-6.10) L Hemoglobin 8.9 G/DL (14.2-18.0) L Hematocrit 27.4 % (42.0-52.0) L Mean Corpuscular Volume 82 FL (80-99) Mean Corpuscular Hemoglobin 26.6 PG (27.0-31.0) L Mean Corpuscular Hemoglobin Concent 32.5 G/DL (32.0-36.0) Red Cell Distribution Width 18.9 % (11.6-14.8) H Platelet Count 195 K/UL (150-450) Mean Platelet Volume 6.0 FL (6.5-10.1) L Neutrophils (%) (Auto) 62.6 % (45.0-75.0) Lymphocytes (%) (Auto) 22.3 % (20.0-45.0) Monocytes (%) (Auto) 8.2 % (1.0-10.0) Eosinophils (%) (Auto) 6.3 % (0.0-3.0) H Basophils (%) (Auto) 0.6 % (0.0-2.0) Sodium Level 143 MMOL/L (136-145) Potassium Level 3.6 MMOL/L (3.5-5.1) Chloride Level 109 MMOL/L (98-107) H Carbon Dioxide Level 24 MMOL/L (21-32) Anion Gap 10 mmol/L (5-15) Blood Urea Nitrogen 19 mg/dL (7-18) H Creatinine 1.1 MG/DL (0.55-1.30) Estimat Glomerular Filtration Rate > 60 mL/min (>60) Glucose Level 140 MG/DL (74-106) H Calcium Level 8.5 MG/DL (8.5-10.1) # Phosphorus Level 2.2 MG/DL (2.5-4.9) L Magnesium Level 1.7 MG/DL (1.8-2.4) L Total Bilirubin 0.2 MG/DL (0.2-1.0) Aspartate Amino Transf (AST/SGOT) 41 U/L (15-37) H Alanine Aminotransferase (ALT/SGPT) 64 U/L (12-78) Alkaline Phosphatase 187 U/L (46-116) H Total Protein 7.2 G/DL (6.4-8.2) Albumin 1.7 G/DL (3.4-5.0) L Globulin 5.5 g/dL Albumin/Globulin Ratio 0.3 (1.0-2.7) L Intake and Output 09/12/19 09/13/19 19:00 07:00 Intake Total 1665 ml 1080 ml Output Total 695 ml 810 ml Balance 970 ml 270 ml Intake Free Water 180 ml IV Total 845 ml Tube Feeding 720 ml 600 ml Blood Product 250 ml Other 100 ml 50 ml Output Urine Total 695 ml 810 ml # Bowel Movements 3 Objective PHYSICAL EXAMINATION: GENERAL: The patient is a thin-appearing male, in no apparent distress. HEENT: Eyes, pupils are equal and responsive to light and accommodation. Extraocular movements are intact. NECK: Supple without lymphadenopathy. CHEST: Mech vent; Lungs are clear to auscultation bilaterally with decreased breath sounds on the right. There are no wheezes appreciated. ABDOMEN: Soft, nontender, and nondistended. Positive bowel sounds. No evidence of hepatosplenomegaly. Currently, no rebound or guarding noted. EXTREMITIES: Negative for clubbing, cyanosis, or edema. RECTAL/GENITAL: Not performed. NEUROLOGIC: Cranial nerves II through XII are grossly intact without focal deficits. Assessment/Plan Assessment/Plan ASSESSMENT: This is an 84-year-old male with: 1. Possible right pneumonia=pseudamonas 2. Urinary tract infection=jennifer 3. Right pleural effusion. 4. Esophageal mass. 5. Dysphagia. 6. Diabetes. 7. Alzheimer's dementia. 8. Cerebrovascular disease. 9. Hypothyroidism. 10. Seizure disorder. 11. Iron deficiency anemia. TREATMENT: 1. Right perihilar Pneumonia/pleural effusion. COVID 19 and Influenza negative. A Pulmonary consultation has been obtained with Dr. Vania Hui. The patient underwent thoracentesis during previous hospitalization. We will follow recommendation of Pulmonary. Continue vanco and cefepime per ID=Dr Matias ABX= cefepime 2. Urinary tract infection. . A urine culture =jennifer 3. Right pleural effusion. As above, a Pulmonary consultation has been obtained with Dr. Vania Hui. The patient may require thoracentesis during this hospitalization. 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 A Gastroenterology consultation has been obtained with Dr. Darrick Rosario. 5. Dysphagia. The patient is status post PEG placement on 08/08/2019 at [facility] by Dr. Darrick Rosario. 6. Diabetes type 2. A NovoLog sliding scale has been instituted. 7. Alzheimer's dementia. 8. Cerebrovascular disease, status post cerebrovascular accident. 9. Hypothyroidism. Continue levothyroxine as above. 10. Seizure disorder. 11. Iron deficiency anemia. Xander Bah MD Sep 13, 2019 16:30
[2019-09-14] VITALS (24 sets, daily range): BP systolic 128–166; BP diastolic 33–59
[2019-09-14 05:28] LABS: BASOPHILS % (AUTO) 0.4 % (0.0-2.0); EOSINOPHILS % (AUTO) 7.8 % (0.0-3.0); HEMATOCRIT 25.7 % (42.0-52.0); HEMOGLOBIN 8.3 G/DL (14.2-18.0); LYMPHOCYTES % (AUTO) 24.5 % (20.0-45.0); MEAN CORPUSCULAR VOLUME 82 FL (80-99); MONOCYTES % (AUTO) 8.5 % (1.0-10.0); NEUTROPHILS % (AUTO) 58.8 % (45.0-75.0); PLATELET COUNT 219 K/UL (150-450); RED BLOOD COUNT 3.12 M/UL (4.70-6.10); WHITE BLOOD COUNT 5.6 K/UL (4.8-10.8)
[2019-09-14 06:07] LABS: ALANINE AMINOTRANSFERASE 46 U/L (12-78); ALBUMIN 1.6 G/DL (3.4-5.0); ALBUMIN/GLOBULIN RATIO 0.3 (1.0-2.7); ALKALINE PHOSPHATASE 161 U/L (46-116); ANION GAP 5 mmol/L (5-15); ASPARTATE AMINO TRANSFERASE 34 U/L (15-37); BILIRUBIN,TOTAL 0.3 MG/DL (0.2-1.0); BLOOD UREA NITROGEN 19 mg/dL (7-18); CALCIUM 8.7 MG/DL (8.5-10.1); CARBON DIOXIDE 28 MMOL/L (21-32); CHLORIDE 109 MMOL/L (98-107); PHOSPHORUS 2.8 MG/DL (2.5-4.9); POTASSIUM 3.7 MMOL/L (3.5-5.1); SODIUM 142 MMOL/L (136-145)
[2019-09-14] MEDS: Pantoprazole Inj IVP SCH ×2 (08:56→20:42)
[2019-09-14] MEDS: Cefepime HCl 1 GM in D5W 55 ML IV SCH (08:56)
[2019-09-14] MEDS: Heparin 5000 units/ml inj SUBQ SCH ×2 (08:59→20:43)
--- NOTE | 2019-09-14 09:05 | Infectious Diseases Prog Note ---
Assessment/Plan Assessment/Plan Afebrile No leukocytosis PNA SARS-CoV neg x2 MRSA screen pos sp cx: PSA and proteus CXR: Right pleural effusion, also demonstrated on prior 08/09/2019 exam, slightly increased. Hazy right lung parenchymal opacity probably represents a superimposed pleural fluid but infiltrate also possible. QTc 419 DM HTN CVA Dementia Nonverbal G tube Plan: continue cefepime # 8/10-14 4/ SP vanc #4 ( Cr increased) f/u Bcx ICU care monitor temp and CBC DC COVID isolation isolation precaution per hospital protocol DW RN Thank you for this consult. [facility] will continue to follow the patient with you. Subjective Allergies: Coded Allergies: PENICILLINS (Verified Allergy, Unknown, 10/27/18) tolretas cephalosporins Subjective Afebrile. FiO2 40% No leukocytosis will attempt weaning today Objective Vital Signs Last 24 Hour Vital Signs Date Time Temp Pulse Resp B/P (MAP) Pulse Ox O2 Delivery O2 Flow Rate FiO2 09/14/19 08:59 55 137/37 09/14/19 07:14 58 16 100 Mechanical Ventilator 40 09/14/19 07:13 58 16 40 09/14/19 07:00 58 17 132/44 (73) 100 09/14/19 06:30 60 17 09/14/19 06:00 59 16 163/59 (93) 100 09/14/19 05:10 59 14 40 09/14/19 05:00 58 14 135/43 (73) 100 09/14/19 04:00 Mechanical Ventilator 09/14/19 04:00 97.5 60 13 151/48 (82) 100 09/14/19 04:00 60 09/14/19 04:00 40 09/14/19 03:32 73 23 40 09/14/19 03:00 59 14 153/45 (81) 100 09/14/19 02:00 57 14 142/41 (74) 98 09/14/19 01:00 53 14 136/46 (76) 100 09/14/19 00:40 53 14 40 09/14/19 00:00 58 09/14/19 00:00 Mechanical Ventilator 09/14/19 00:00 98.5 55 14 140/48 (78) 100 09/13/19 23:15 61 14 40 09/13/19 23:00 56 14 128/41 (70) 100 09/13/19 22:00 58 14 138/51 (80) 100 09/13/19 21:06 53 14 40 09/13/19 21:00 60 14 127/39 (68) 100 09/13/19 20:00 98.1 61 14 139/44 (75) 100 09/13/19 20:00 Mechanical Ventilator 09/13/19 20:00 40 09/13/19 20:00 60 09/13/19 19:05 60 14 40 09/13/19 19:00 60 13 129/40 (69) 100 09/13/19 18:30 59 14 119/46 (70) 100 09/13/19 18:00 62 16 140/42 (74) 100 09/13/19 17:34 55 09/13/19 17:30 59 15 146/52 (83) 100 09/13/19 17:00 58 14 141/55 (83) 100 09/13/19 16:38 69 21 40 09/13/19 16:00 40 09/13/19 16:00 61 09/13/19 16:00 98.9 67 16 181/70 (107) 100 09/13/19 16:00 Mechanical Ventilator 09/13/19 15:30 61 14 140/51 (80) 100 09/13/19 15:19 61 15 40 09/13/19 15:00 61 14 138/52 (80) 100 09/13/19 14:00 67 17 128/47 (74) 100 09/13/19 13:04 63 17 40 09/13/19 13:00 63 18 153/49 (83) 100 09/13/19 12:30 61 15 151/54 (86) 100 09/13/19 12:00 98.4 65 20 170/53 (92) 100 09/13/19 12:00 Mechanical Ventilator 09/13/19 12:00 63 09/13/19 12:00 40 09/13/19 11:00 62 15 164/56 (92) 100 09/13/19 10:00 63 17 168/58 (94) 100 09/13/19 09:30 61 14 152/55 (87) 100 09/13/19 09:08 65 178/60 Height (Feet): 5 Height (Inches): 11.00 Weight (Pounds): 159 Objective Gen: NAD. well nourished HEENT: ETT Resp: coarse. equal chest rise. regular rate and rhythm. Abd: Soft. no TTP. nondistended. G tube site c/d/i. Neuro: opens eyes to voice Laboratory Tests Test 09/14/19 04:10 White Blood Count 5.6 K/UL (4.8-10.8) Red Blood Count 3.12 M/UL (4.70-6.10) L Hemoglobin 8.3 G/DL (14.2-18.0) L Hematocrit 25.7 % (42.0-52.0) L Mean Corpuscular Volume 82 FL (80-99) Mean Corpuscular Hemoglobin 26.5 PG (27.0-31.0) L Mean Corpuscular Hemoglobin Concent 32.3 G/DL (32.0-36.0) Red Cell Distribution Width 19.0 % (11.6-14.8) H Platelet Count 219 K/UL (150-450) Mean Platelet Volume 5.8 FL (6.5-10.1) L Neutrophils (%) (Auto) 58.8 % (45.0-75.0) Lymphocytes (%) (Auto) 24.5 % (20.0-45.0) Monocytes (%) (Auto) 8.5 % (1.0-10.0) Eosinophils (%) (Auto) 7.8 % (0.0-3.0) H Basophils (%) (Auto) 0.4 % (0.0-2.0) Sodium Level 142 MMOL/L (136-145) Potassium Level 3.7 MMOL/L (3.5-5.1) Chloride Level 109 MMOL/L (98-107) H Carbon Dioxide Level 28 MMOL/L (21-32) Anion Gap 5 mmol/L (5-15) Blood Urea Nitrogen 19 mg/dL (7-18) H Creatinine 1.0 MG/DL (0.55-1.30) Estimat Glomerular Filtration Rate > 60 mL/min (>60) Glucose Level 85 MG/DL (74-106) Uric Acid 3.2 MG/DL (2.6-7.2) Calcium Level 8.7 MG/DL (8.5-10.1) Phosphorus Level 2.8 MG/DL (2.5-4.9) Magnesium Level 2.1 MG/DL (1.8-2.4) Total Bilirubin 0.3 MG/DL (0.2-1.0) Aspartate Amino Transf (AST/SGOT) 34 U/L (15-37) Alanine Aminotransferase (ALT/SGPT) 46 U/L (12-78) Alkaline Phosphatase 161 U/L (46-116) H C-Reactive Protein, Quantitative 8.2 mg/dL (0.00-0.90) H Pro-B-Type Natriuretic Peptide 1278 pg/mL (0-125) H Total Protein 6.7 G/DL (6.4-8.2) Albumin 1.6 G/DL (3.4-5.0) L Globulin 5.1 g/dL Albumin/Globulin Ratio 0.3 (1.0-2.7) L Thyroid Stimulating Hormone (TSH) 10.857 uiU/mL (0.358-3.740) Current Medications Medications (Trade) Dose Ordered Sig/Kike Route PRN Reason Start Time Stop Time Status Last Admin Dose Admin Acetaminophen (Tylenol) 650 mg Q4H PRN ORAL fever 09/09/19 04:30 10/07/19 04:29 Amlodipine Besylate (Norvasc) 2.5 mg BID ORAL 09/13/19 18:00 10/07/19 08:59 Cefepime HCl 1 gm/ Dextrose 55 ml @ 110 mls/hr Q24H IV 09/10/19 09:00 09/17/19 08:59 09/14/19 08:56 Heparin Sodium (Porcine) (Heparin 5000 units/ml) 5,000 units EVERY 12 HOURS SUBQ 09/09/19 09:00 10/22/19 08:59 09/14/19 08:59 Levothyroxine Sodium (Synthroid) 75 mcg DAILY@0630 ORAL 09/12/19 06:30 10/07/19 08:29 09/14/19 06:14 Mirtazapine (Remeron) 7.5 mg BEDTIME ORAL 09/09/19 21:00 12/06/19 20:59 09/13/19 20:31 Nitroglycerin (Ntg) 0.4 mg Q5M PRN SL Prn Chest Pain 09/09/19 04:30 10/07/19 04:29 Ondansetron HCl (Zofran) 4 mg Q6H PRN IVP Nausea & Vomiting 09/09/19 04:30 10/07/19 04:29 Pantoprazole (Protonix) 40 mg Q12HR IVP 09/11/19 21:00 10/10/19 08:59 09/14/19 08:56 Polyethylene Glycol (Miralax) 17 gm DAILYPRN PRN ORAL Constipation 09/09/19 04:30 10/07/19 04:29 Promethazine HCl/ Codeine (Phenergan with Codeine) 5 ml Q4H PRN ORAL For Cough 09/09/19 04:30 10/07/19 04:29 Quetiapine Fumarate (SEROqueL) 25 mg Q8HR ORAL 09/09/19 06:00 10/22/19 08:14 09/14/19 06:14 Marcelina Matias MD Sep 14, 2019 09:05
--- NOTE | 2019-09-14 10:01 | Nephrology Progress Note ---
Assessment/Plan Problem List: (1) RAMAN (acute kidney injury) Assessment: Serum creatinine normalized with hydration (2) Dehydration (3) Suspected COVID-19 virus infection (4) Anemia (5) Sepsis (6) Diabetes mellitus (7) Hypothyroidism Assessment - Acute renal failure - Severe anemia - Sepsis, pneumonia, acute respiratory failure, suspected: Viewed 19 virus infection - Diabetes mellitus - Hypothyroidism - Feeding by G-tube - Squamous cell esophageal cancer - History of CVA (cerebrovascular accident) Plan Plan: Discontinue IV fluid Monitor renal parameters, serum creatinine Adjust electrolytes with supplements Increase Synthroid dose Avoid nephrotoxic's as possible Ventilator management Urine studies Per orders Subjective ROS Limited/Unobtainable: Yes Objective Objective Last 24 Hour Vital Signs Date Time Temp Pulse Resp B/P (MAP) Pulse Ox O2 Delivery O2 Flow Rate FiO2 09/14/19 09:10 60 16 40 09/14/19 08:59 55 137/37 09/14/19 07:14 58 16 100 Mechanical Ventilator 40 09/14/19 07:13 58 16 40 09/14/19 07:00 58 17 132/44 (73) 100 09/14/19 06:30 60 17 09/14/19 06:00 59 16 163/59 (93) 100 09/14/19 05:10 59 14 40 09/14/19 05:00 58 14 135/43 (73) 100 09/14/19 04:00 Mechanical Ventilator 09/14/19 04:00 97.5 60 13 151/48 (82) 100 09/14/19 04:00 60 09/14/19 04:00 40 09/14/19 03:32 73 23 40 09/14/19 03:00 59 14 153/45 (81) 100 09/14/19 02:00 57 14 142/41 (74) 98 09/14/19 01:00 53 14 136/46 (76) 100 09/14/19 00:40 53 14 40 09/14/19 00:00 58 09/14/19 00:00 Mechanical Ventilator 09/14/19 00:00 98.5 55 14 140/48 (78) 100 09/13/19 23:15 61 14 40 09/13/19 23:00 56 14 128/41 (70) 100 09/13/19 22:00 58 14 138/51 (80) 100 09/13/19 21:06 53 14 40 09/13/19 21:00 60 14 127/39 (68) 100 09/13/19 20:00 98.1 61 14 139/44 (75) 100 09/13/19 20:00 Mechanical Ventilator 09/13/19 20:00 40 09/13/19 20:00 60 09/13/19 19:05 60 14 40 09/13/19 19:00 60 13 129/40 (69) 100 09/13/19 18:30 59 14 119/46 (70) 100 09/13/19 18:00 62 16 140/42 (74) 100 09/13/19 17:34 55 09/13/19 17:30 59 15 146/52 (83) 100 09/13/19 17:00 58 14 141/55 (83) 100 09/13/19 16:38 69 21 40 09/13/19 16:00 40 09/13/19 16:00 61 09/13/19 16:00 98.9 67 16 181/70 (107) 100 09/13/19 16:00 Mechanical Ventilator 09/13/19 15:30 61 14 140/51 (80) 100 09/13/19 15:19 61 15 40 09/13/19 15:00 61 14 138/52 (80) 100 09/13/19 14:00 67 17 128/47 (74) 100 09/13/19 13:04 63 17 40 09/13/19 13:00 63 18 153/49 (83) 100 09/13/19 12:30 61 15 151/54 (86) 100 09/13/19 12:00 98.4 65 20 170/53 (92) 100 09/13/19 12:00 Mechanical Ventilator 09/13/19 12:00 63 09/13/19 12:00 40 09/13/19 11:00 62 15 164/56 (92) 100 09/13/19 10:00 63 17 168/58 (94) 100 Intake and Output 09/13/19 09/14/19 19:00 07:00 Intake Total 1742.776 ml 840 ml Output Total 740 ml 410 ml Balance 1002.776 ml 430 ml IV Total 862.776 ml Tube Feeding 720 ml 720 ml Other 160 ml 120 ml Output Urine Total 740 ml 410 ml Current Medications Medications (Trade) Dose Ordered Sig/Kike Route PRN Reason Start Time Stop Time Status Last Admin Dose Admin Acetaminophen (Tylenol) 650 mg Q4H PRN ORAL fever 09/09/19 04:30 10/07/19 04:29 Amlodipine Besylate (Norvasc) 2.5 mg BID ORAL 09/13/19 18:00 10/07/19 08:59 Cefepime HCl 1 gm/ Dextrose 55 ml @ 110 mls/hr Q24H IV 09/10/19 09:00 09/17/19 08:59 09/14/19 08:56 Heparin Sodium (Porcine) (Heparin 5000 units/ml) 5,000 units EVERY 12 HOURS SUBQ 09/09/19 09:00 10/22/19 08:59 09/14/19 08:59 Levothyroxine Sodium (Synthroid) 75 mcg DAILY@0630 ORAL 09/12/19 06:30 10/07/19 08:29 09/14/19 06:14 Mirtazapine (Remeron) 7.5 mg BEDTIME ORAL 09/09/19 21:00 12/06/19 20:59 09/13/19 20:31 Nitroglycerin (Ntg) 0.4 mg Q5M PRN SL Prn Chest Pain 09/09/19 04:30 10/07/19 04:29 Ondansetron HCl (Zofran) 4 mg Q6H PRN IVP Nausea & Vomiting 09/09/19 04:30 10/07/19 04:29 Pantoprazole (Protonix) 40 mg Q12HR IVP 09/11/19 21:00 10/10/19 08:59 09/14/19 08:56 Polyethylene Glycol (Miralax) 17 gm DAILYPRN PRN ORAL Constipation 09/09/19 04:30 10/07/19 04:29 Promethazine HCl/ Codeine (Phenergan with Codeine) 5 ml Q4H PRN ORAL For Cough 09/09/19 04:30 10/07/19 04:29 Quetiapine Fumarate (SEROqueL) 25 mg Q8HR ORAL 09/09/19 06:00 10/22/19 08:14 09/14/19 06:14 Laboratory Tests 09/14/19 04:10: White Blood Count 5.6, Red Blood Count 3.12L, Hemoglobin 8.3L, Hematocrit 25.7L , Mean Corpuscular Volume 82, Mean Corpuscular Hemoglobin 26.5L, Mean Corpuscular Hemoglobin Concent 32.3, Red Cell Distribution Width 19.0H, Platelet Count 219, Mean Platelet Volume 5.8L, Neutrophils (%) (Auto) 58.8, Lymphocytes (%) (Auto) 24.5, Monocytes (%) (Auto) 8.5, Eosinophils (%) (Auto) 7.8H, Basophils (%) (Auto) 0.4, Sodium Level 142, Potassium Level 3.7, Chloride Level 109H, Carbon Dioxide Level 28, Anion Gap 5, Blood Urea Nitrogen 19H, Creatinine 1.0, Estimat Glomerular Filtration Rate > 60, Glucose Level 85, Uric Acid 3.2, Calcium Level 8.7, Phosphorus Level 2.8, Magnesium Level 2.1, Total Bilirubin 0.3, Aspartate Amino Transf (AST/SGOT) 34, Alanine Aminotransferase ( ALT/SGPT) 46, Alkaline Phosphatase 161H, C-Reactive Protein, Quantitative 8.2H, Pro-B-Type Natriuretic Peptide 1278H, Total Protein 6.7, Albumin 1.6L, Globulin 5.1, Albumin/Globulin Ratio 0.3L, Thyroid Stimulating Hormone (TSH) 10.857H Height (Feet): 5 Height (Inches): 11.00 Weight (Pounds): 159 General Appearance: no apparent distress EENT: other - Remains intubated and vented Cardiovascular: bradycardia Respiratory/Chest: decreased breath sounds Abdomen: distended Clovis Benites MD Sep 14, 2019 10:01
--- NOTE | 2019-09-14 10:18 | Pulmonolgy Critical Care Note ---
Critical Care - Asmt/Plan Problems: (1) Acute respiratory failure (2) Suspected COVID-19 virus infection (3) Nosocomial pneumonia (4) Sepsis (5) Diabetes mellitus (6) At high risk for aspiration (7) Severe malnutrition (8) Feeding by G-tube (9) Squamous cell esophageal cancer (10) Alzheimer's dementia (11) History of CVA (cerebrovascular accident) Respiratory: adjust tidal volume, monitor respiratory rate, adjust FIO2 Cardiac: continue to monitor HR/BP Renal: F/U I&O Infectious Disease: check cultures, add antibiotics Gastrointestinal: continue feedings/current rate Endocrine: monitor blood sugar, check TSH Neurologic: PRN Ativan Prophylaxis: Protonix, Heparin Disposition: keep in ICU Time Spent (Minutes): 40 Notes Reviewed: substance abuse technician, ID Discussed with: nurses, consultants, rehabilitation caseworkermanager [facility] - Objective Last 24 Hour Vital Signs Date Time Temp Pulse Resp B/P (MAP) Pulse Ox O2 Delivery O2 Flow Rate FiO2 09/14/19 09:10 60 16 40 09/14/19 09:00 55 17 151/49 (83) 99 09/14/19 08:59 55 137/37 09/14/19 08:00 40 09/14/19 08:00 97.7 59 19 166/48 (87) 100 09/14/19 08:00 Mechanical Ventilator 09/14/19 07:14 58 16 100 Mechanical Ventilator 40 09/14/19 07:13 58 16 40 09/14/19 07:00 58 17 132/44 (73) 100 09/14/19 06:30 60 17 09/14/19 06:00 59 16 163/59 (93) 100 09/14/19 05:10 59 14 40 09/14/19 05:00 58 14 135/43 (73) 100 09/14/19 04:00 Mechanical Ventilator 09/14/19 04:00 97.5 60 13 151/48 (82) 100 09/14/19 04:00 60 09/14/19 04:00 40 09/14/19 03:32 73 23 40 09/14/19 03:00 59 14 153/45 (81) 100 09/14/19 02:00 57 14 142/41 (74) 98 09/14/19 01:00 53 14 136/46 (76) 100 09/14/19 00:40 53 14 40 09/14/19 00:00 58 09/14/19 00:00 Mechanical Ventilator 09/14/19 00:00 98.5 55 14 140/48 (78) 100 09/13/19 23:15 61 14 40 09/13/19 23:00 56 14 128/41 (70) 100 09/13/19 22:00 58 14 138/51 (80) 100 09/13/19 21:06 53 14 40 09/13/19 21:00 60 14 127/39 (68) 100 09/13/19 20:00 98.1 61 14 139/44 (75) 100 09/13/19 20:00 Mechanical Ventilator 09/13/19 20:00 40 09/13/19 20:00 60 09/13/19 19:05 60 14 40 09/13/19 19:00 60 13 129/40 (69) 100 09/13/19 18:30 59 14 119/46 (70) 100 09/13/19 18:00 62 16 140/42 (74) 100 09/13/19 17:34 55 09/13/19 17:30 59 15 146/52 (83) 100 09/13/19 17:00 58 14 141/55 (83) 100 09/13/19 16:38 69 21 40 09/13/19 16:00 40 09/13/19 16:00 61 09/13/19 16:00 98.9 67 16 181/70 (107) 100 09/13/19 16:00 Mechanical Ventilator 09/13/19 15:30 61 14 140/51 (80) 100 09/13/19 15:19 61 15 40 09/13/19 15:00 61 14 138/52 (80) 100 09/13/19 14:00 67 17 128/47 (74) 100 09/13/19 13:04 63 17 40 09/13/19 13:00 63 18 153/49 (83) 100 09/13/19 12:30 61 15 151/54 (86) 100 09/13/19 12:00 98.4 65 20 170/53 (92) 100 09/13/19 12:00 Mechanical Ventilator 09/13/19 12:00 63 09/13/19 12:00 40 09/13/19 11:00 62 15 164/56 (92) 100 Status: sedated Condition: critical HEENT: atraumatic Lungs: rales, rhonchi Heart: HR/BP stable Abdomen: soft, non-tender Extremities: no C/C/E, edema Critical Care - Subjective ROS Limited/Unobtainable: No Interval Events: first Fuentes test was negative. Condition: critical EKG Rhythm: Sinus Rhythm FI02: 40 Vent Support Breath Rate: 14 Vent Support Mode: AC Vent Tidal Volume: 550 Sputum Amount: Small PEEP: 5.0 PIP: 32 Tube Feeding Amount: 60 I&O: Intake and Output 09/13/19 09/14/19 19:00 07:00 Intake Total 1742.776 ml 840 ml Output Total 740 ml 410 ml Balance 1002.776 ml 430 ml IV Total 862.776 ml Tube Feeding 720 ml 720 ml Other 160 ml 120 ml Output Urine Total 740 ml 410 ml CXR: worsening infiltrate ET-Tube: 7.5 ET Position: 23 Labs: Laboratory Tests Test 09/14/19 04:10 White Blood Count 5.6 K/UL (4.8-10.8) Red Blood Count 3.12 M/UL (4.70-6.10) L Hemoglobin 8.3 G/DL (14.2-18.0) L Hematocrit 25.7 % (42.0-52.0) L Mean Corpuscular Volume 82 FL (80-99) Mean Corpuscular Hemoglobin 26.5 PG (27.0-31.0) L Mean Corpuscular Hemoglobin Concent 32.3 G/DL (32.0-36.0) Red Cell Distribution Width 19.0 % (11.6-14.8) H Platelet Count 219 K/UL (150-450) Mean Platelet Volume 5.8 FL (6.5-10.1) L Neutrophils (%) (Auto) 58.8 % (45.0-75.0) Lymphocytes (%) (Auto) 24.5 % (20.0-45.0) Monocytes (%) (Auto) 8.5 % (1.0-10.0) Eosinophils (%) (Auto) 7.8 % (0.0-3.0) H Basophils (%) (Auto) 0.4 % (0.0-2.0) Sodium Level 142 MMOL/L (136-145) Potassium Level 3.7 MMOL/L (3.5-5.1) Chloride Level 109 MMOL/L (98-107) H Carbon Dioxide Level 28 MMOL/L (21-32) Anion Gap 5 mmol/L (5-15) Blood Urea Nitrogen 19 mg/dL (7-18) H Creatinine 1.0 MG/DL (0.55-1.30) Estimat Glomerular Filtration Rate > 60 mL/min (>60) Glucose Level 85 MG/DL (74-106) Uric Acid 3.2 MG/DL (2.6-7.2) Calcium Level 8.7 MG/DL (8.5-10.1) Phosphorus Level 2.8 MG/DL (2.5-4.9) Magnesium Level 2.1 MG/DL (1.8-2.4) Total Bilirubin 0.3 MG/DL (0.2-1.0) Aspartate Amino Transf (AST/SGOT) 34 U/L (15-37) Alanine Aminotransferase (ALT/SGPT) 46 U/L (12-78) Alkaline Phosphatase 161 U/L (46-116) H C-Reactive Protein, Quantitative 8.2 mg/dL (0.00-0.90) H Pro-B-Type Natriuretic Peptide 1278 pg/mL (0-125) H Total Protein 6.7 G/DL (6.4-8.2) Albumin 1.6 G/DL (3.4-5.0) L Globulin 5.1 g/dL Albumin/Globulin Ratio 0.3 (1.0-2.7) L Thyroid Stimulating Hormone (TSH) 10.857 uiU/mL (0.358-3.740) Vania Hui MD Sep 14, 2019 10:18
--- NOTE | 2019-09-14 13:20 | Internal Med Progress Note ---
Subjective Date of Service: Sep 14, 2019 Physician Name Xander Bah Attending Physician Lamont Hayes MD Current Medications Medications (Trade) Dose Ordered Sig/Kike Route PRN Reason Start Time Stop Time Status Last Admin Dose Admin Acetaminophen (Tylenol) 650 mg Q4H PRN ORAL fever 09/09/19 04:30 10/07/19 04:29 Amlodipine Besylate (Norvasc) 2.5 mg BID ORAL 09/13/19 18:00 10/07/19 08:59 Cefepime HCl 1 gm/ Dextrose 55 ml @ 110 mls/hr Q24H IV 09/10/19 09:00 09/17/19 08:59 09/14/19 08:56 Heparin Sodium (Porcine) (Heparin 5000 units/ml) 5,000 units EVERY 12 HOURS SUBQ 09/09/19 09:00 10/22/19 08:59 09/14/19 08:59 Levothyroxine Sodium (Synthroid) 75 mcg DAILY@0630 ORAL 09/12/19 06:30 10/07/19 08:29 09/14/19 06:14 Mirtazapine (Remeron) 7.5 mg BEDTIME ORAL 09/09/19 21:00 12/06/19 20:59 09/13/19 20:31 Nitroglycerin (Ntg) 0.4 mg Q5M PRN SL Prn Chest Pain 09/09/19 04:30 10/07/19 04:29 Ondansetron HCl (Zofran) 4 mg Q6H PRN IVP Nausea & Vomiting 09/09/19 04:30 10/07/19 04:29 Pantoprazole (Protonix) 40 mg Q12HR IVP 09/11/19 21:00 10/10/19 08:59 09/14/19 08:56 Polyethylene Glycol (Miralax) 17 gm DAILYPRN PRN ORAL Constipation 09/09/19 04:30 10/07/19 04:29 Promethazine HCl/ Codeine (Phenergan with Codeine) 5 ml Q4H PRN ORAL For Cough 09/09/19 04:30 10/07/19 04:29 Quetiapine Fumarate (SEROqueL) 25 mg Q8HR ORAL 09/09/19 06:00 10/22/19 08:14 09/14/19 06:14 Allergies: Coded Allergies: PENICILLINS (Verified Allergy, Unknown, 10/27/18) tolretas cephalosporins ROS Limited/Unobtainable: Yes Subjective 84 YO M admitted with cough and congestion. Now right pleural effusion and pneumonia. Cover for Int Med-Dr Hayes. ICU. Intubated and sedated Objective Last Vital Signs Date Time Temp Pulse Resp B/P (MAP) Pulse Ox O2 Delivery O2 Flow Rate FiO2 09/14/19 13:10 58 18 40 09/14/19 09:00 151/49 (83) 99 09/14/19 08:00 97.7 09/14/19 08:00 Mechanical Ventilator 09/08/19 21:00 2.0 Laboratory Tests Test 09/14/19 04:10 White Blood Count 5.6 K/UL (4.8-10.8) Red Blood Count 3.12 M/UL (4.70-6.10) L Hemoglobin 8.3 G/DL (14.2-18.0) L Hematocrit 25.7 % (42.0-52.0) L Mean Corpuscular Volume 82 FL (80-99) Mean Corpuscular Hemoglobin 26.5 PG (27.0-31.0) L Mean Corpuscular Hemoglobin Concent 32.3 G/DL (32.0-36.0) Red Cell Distribution Width 19.0 % (11.6-14.8) H Platelet Count 219 K/UL (150-450) Mean Platelet Volume 5.8 FL (6.5-10.1) L Neutrophils (%) (Auto) 58.8 % (45.0-75.0) Lymphocytes (%) (Auto) 24.5 % (20.0-45.0) Monocytes (%) (Auto) 8.5 % (1.0-10.0) Eosinophils (%) (Auto) 7.8 % (0.0-3.0) H Basophils (%) (Auto) 0.4 % (0.0-2.0) Sodium Level 142 MMOL/L (136-145) Potassium Level 3.7 MMOL/L (3.5-5.1) Chloride Level 109 MMOL/L (98-107) H Carbon Dioxide Level 28 MMOL/L (21-32) Anion Gap 5 mmol/L (5-15) Blood Urea Nitrogen 19 mg/dL (7-18) H Creatinine 1.0 MG/DL (0.55-1.30) Estimat Glomerular Filtration Rate > 60 mL/min (>60) Glucose Level 85 MG/DL (74-106) Uric Acid 3.2 MG/DL (2.6-7.2) Calcium Level 8.7 MG/DL (8.5-10.1) Phosphorus Level 2.8 MG/DL (2.5-4.9) Magnesium Level 2.1 MG/DL (1.8-2.4) Total Bilirubin 0.3 MG/DL (0.2-1.0) Aspartate Amino Transf (AST/SGOT) 34 U/L (15-37) Alanine Aminotransferase (ALT/SGPT) 46 U/L (12-78) Alkaline Phosphatase 161 U/L (46-116) H C-Reactive Protein, Quantitative 8.2 mg/dL (0.00-0.90) H Pro-B-Type Natriuretic Peptide 1278 pg/mL (0-125) H Total Protein 6.7 G/DL (6.4-8.2) Albumin 1.6 G/DL (3.4-5.0) L Globulin 5.1 g/dL Albumin/Globulin Ratio 0.3 (1.0-2.7) L Thyroid Stimulating Hormone (TSH) 10.857 uiU/mL (0.358-3.740) Intake and Output 09/13/19 09/14/19 19:00 07:00 Intake Total 1742.776 ml 840 ml Output Total 740 ml 410 ml Balance 1002.776 ml 430 ml IV Total 862.776 ml Tube Feeding 720 ml 720 ml Other 160 ml 120 ml Output Urine Total 740 ml 410 ml Objective PHYSICAL EXAMINATION: GENERAL: The patient is a thin-appearing male, in no apparent distress. HEENT: Eyes, pupils are equal and responsive to light and accommodation. Extraocular movements are intact. NECK: Supple without lymphadenopathy. CHEST: Mech vent; Lungs are clear to auscultation bilaterally with decreased breath sounds on the right. There are no wheezes appreciated. ABDOMEN: Soft, nontender, and nondistended. Positive bowel sounds. No evidence of hepatosplenomegaly. Currently, no rebound or guarding noted. EXTREMITIES: Negative for clubbing, cyanosis, or edema. RECTAL/GENITAL: Not performed. NEUROLOGIC: Cranial nerves II through XII are grossly intact without focal deficits. Assessment/Plan Assessment/Plan ASSESSMENT: This is an 84-year-old male with: 1. Possible right pneumonia=pseudamonas 2. Urinary tract infection=jennifer 3. Right pleural effusion. 4. Esophageal mass. 5. Dysphagia. 6. Diabetes. 7. Alzheimer's dementia. 8. Cerebrovascular disease. 9. Hypothyroidism. 10. Seizure disorder. 11. Iron deficiency anemia. TREATMENT: 1. Right perihilar Pneumonia/pleural effusion. COVID 19 and Influenza negative. A Pulmonary consultation has been obtained with Dr. Vania Hui. The patient underwent thoracentesis during previous hospitalization. We will follow recommendation of Pulmonary. Continue vanco and cefepime per ID=Dr Matias ABX= cefepime 2. Urinary tract infection. . A urine culture =jennifer 3. Right pleural effusion. As above, a Pulmonary consultation has been obtained with Dr. Vania Hui. The patient may require thoracentesis during this hospitalization. 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 A Gastroenterology consultation has been obtained with Dr. Darrick Rosario. 5. Dysphagia. The patient is status post PEG placement on 08/08/[address] [facility] by Dr. Darrick Rosario. 6. Diabetes type 2. A NovoLog sliding scale has been instituted. 7. Alzheimer's dementia. 8. Cerebrovascular disease, status post cerebrovascular accident. 9. Hypothyroidism. Continue levothyroxine as above. 10. Seizure disorder. 11. Iron deficiency anemia. Xander Bah MD Sep 14, 2019 13:20
--- NOTE | 2019-09-14 15:44 | Surgery Progress Note ---
Surgery Progress Note Subjective Additional Comments ill appearing labs noted eaxm stable Objective Last 24 Hour Vital Signs Date Time Temp Pulse Resp B/P (MAP) Pulse Ox O2 Delivery O2 Flow Rate FiO2 09/14/19 15:18 58 16 40 09/14/19 13:10 58 18 40 09/14/19 13:00 63 18 148/47 (80) 100 09/14/19 12:00 40 09/14/19 12:00 Mechanical Ventilator 09/14/19 12:00 97.7 61 18 161/42 (81) 100 09/14/19 12:00 60 09/14/19 11:00 57 16 40 09/14/19 11:00 57 17 143/39 (73) 100 09/14/19 10:00 55 14 134/33 (66) 100 09/14/19 09:10 60 16 40 09/14/19 09:00 55 17 151/49 (83) 99 09/14/19 08:59 55 137/37 09/14/19 08:00 40 09/14/19 08:00 97.7 59 19 166/48 (87) 100 09/14/19 08:00 Mechanical Ventilator 09/14/19 08:00 65 09/14/19 07:14 58 16 100 Mechanical Ventilator 40 09/14/19 07:13 58 16 40 09/14/19 07:00 58 17 132/44 (73) 100 09/14/19 06:30 60 17 09/14/19 06:00 59 16 163/59 (93) 100 09/14/19 05:10 59 14 40 09/14/19 05:00 58 14 135/43 (73) 100 09/14/19 04:00 Mechanical Ventilator 09/14/19 04:00 97.5 60 13 151/48 (82) 100 09/14/19 04:00 60 09/14/19 04:00 40 09/14/19 03:32 73 23 40 09/14/19 03:00 59 14 153/45 (81) 100 09/14/19 02:00 57 14 142/41 (74) 98 09/14/19 01:00 53 14 136/46 (76) 100 09/14/19 00:40 53 14 40 09/14/19 00:00 58 09/14/19 00:00 Mechanical Ventilator 09/14/19 00:00 98.5 55 14 140/48 (78) 100 09/13/19 23:15 61 14 40 09/13/19 23:00 56 14 128/41 (70) 100 09/13/19 22:00 58 14 138/51 (80) 100 09/13/19 21:06 53 14 40 09/13/19 21:00 60 14 127/39 (68) 100 09/13/19 20:00 98.1 61 14 139/44 (75) 100 09/13/19 20:00 Mechanical Ventilator 09/13/19 20:00 40 09/13/19 20:00 60 09/13/19 19:05 60 14 40 09/13/19 19:00 60 13 129/40 (69) 100 09/13/19 18:30 59 14 119/46 (70) 100 09/13/19 18:00 62 16 140/42 (74) 100 09/13/19 17:34 55 09/13/19 17:30 59 15 146/52 (83) 100 09/13/19 17:00 58 14 141/55 (83) 100 09/13/19 16:38 69 21 40 09/13/19 16:00 40 09/13/19 16:00 61 09/13/19 16:00 98.9 67 16 181/70 (107) 100 09/13/19 16:00 Mechanical Ventilator I&O Intake and Output 09/13/19 09/14/19 19:00 07:00 Intake Total 1742.776 ml 840 ml Output Total 740 ml 410 ml Balance 1002.776 ml 430 ml IV Total 862.776 ml Tube Feeding 720 ml 720 ml Other 160 ml 120 ml Output Urine Total 740 ml 410 ml Dressing: other Wound: other Drains: other Cardiovascular: RSR Respiratory: decreased breath sounds Abdomen: soft, non-tender, present bowel sounds Extremities: no cyanosis, other Laboratory Tests Test 09/14/19 04:10 White Blood Count 5.6 K/UL (4.8-10.8) Red Blood Count 3.12 M/UL (4.70-6.10) L Hemoglobin 8.3 G/DL (14.2-18.0) L Hematocrit 25.7 % (42.0-52.0) L Mean Corpuscular Volume 82 FL (80-99) Mean Corpuscular Hemoglobin 26.5 PG (27.0-31.0) L Mean Corpuscular Hemoglobin Concent 32.3 G/DL (32.0-36.0) Red Cell Distribution Width 19.0 % (11.6-14.8) H Platelet Count 219 K/UL (150-450) Mean Platelet Volume 5.8 FL (6.5-10.1) L Neutrophils (%) (Auto) 58.8 % (45.0-75.0) Lymphocytes (%) (Auto) 24.5 % (20.0-45.0) Monocytes (%) (Auto) 8.5 % (1.0-10.0) Eosinophils (%) (Auto) 7.8 % (0.0-3.0) H Basophils (%) (Auto) 0.4 % (0.0-2.0) Sodium Level 142 MMOL/L (136-145) Potassium Level 3.7 MMOL/L (3.5-5.1) Chloride Level 109 MMOL/L (98-107) H Carbon Dioxide Level 28 MMOL/L (21-32) Anion Gap 5 mmol/L (5-15) Blood Urea Nitrogen 19 mg/dL (7-18) H Creatinine 1.0 MG/DL (0.55-1.30) Estimat Glomerular Filtration Rate > 60 mL/min (>60) Glucose Level 85 MG/DL (74-106) Uric Acid 3.2 MG/DL (2.6-7.2) Calcium Level 8.7 MG/DL (8.5-10.1) Phosphorus Level 2.8 MG/DL (2.5-4.9) Magnesium Level 2.1 MG/DL (1.8-2.4) Total Bilirubin 0.3 MG/DL (0.2-1.0) Aspartate Amino Transf (AST/SGOT) 34 U/L (15-37) Alanine Aminotransferase (ALT/SGPT) 46 U/L (12-78) Alkaline Phosphatase 161 U/L (46-116) H C-Reactive Protein, Quantitative 8.2 mg/dL (0.00-0.90) H Pro-B-Type Natriuretic Peptide 1278 pg/mL (0-125) H Total Protein 6.7 G/DL (6.4-8.2) Albumin 1.6 G/DL (3.4-5.0) L Globulin 5.1 g/dL Albumin/Globulin Ratio 0.3 (1.0-2.7) L Thyroid Stimulating Hormone (TSH) 10.857 uiU/mL (0.358-3.740) Plan Problems: (1) UTI (urinary tract infection) (2) Acute respiratory failure Assessment & Plan: There is infiltrate suspected in the right perihilar region obscuring the right hilum. There is a hazy opacity that may partially be accounted for by pleural fluid on the right. Reticular densities are present on the left in the perihilar aspect of the lung. Endotracheal tube is in good position just above the anselmo. Heart size is normal. IMPRESSION: Suspected perihilar airspace disease in the right lung suspicious for pneumonia. Reticular nodular infiltrate in the left lung noted also. Right pleural effusion suspected. Endotracheal tube in good position cont vents support (3) Sepsis Assessment & Plan: Pt cachetic and presented on admission with multiple pressure injuries. Partial thickness pressure injury Cleft of L ear(L)1.2cm x (W)0.4cm. Base of wound moist and viable with small amt sanguineous exudate. Partial thickness pressure injury cleft of R ear(L)0.5cm x (W)0.7cm. Base of wound moist and viable Periwound erythematous.Small amt sanguineous exudate noted. Sacral DTPI(L)5cm x (W)10.5cm. Base of injury is purple with maroon borders. Coccygeal bony protrusion with darker skin tone, and small opening noted to R gluteus (L)0.5cm x (W)0.5cm within base of injury. No further skin breakdown periwound. Intact blood blister noted to R 1st metatarsal head(L)1.1cm x (W)2.5cm. DTPI noted to L heel extending into plantar aspect. Base of injury presents as an intact blood filled blister. Periwound is boggy with non-blanching erythema. R heel is boggy but blanchable. wounds unlikely etiology of sepsis respiratory but given current condition high risk for breakdown and worsening will monitor closely discussed with RN and staff great care being provided Tx.Plan: Apply Betadine to clefts of R and L ears. Pad oxygen tubing with gauze and keep oxygen tubing loose. Apply Moisture Barrier Paste to Sacrum. Cover with Optifoam drsg. Change every 3 days and prn. Apply Betadine to L heel. Cover with Optifoam drsg. Change every 3 days and prn. Apply Betadine to R 1st metatarsal head. Cover with Optifoam drsg. Change every 3 days and prn. Apply Cavilon Skin Barrier R heel. Cover with Optifoam drsg. Change every 7 days and prn. Reposition at least every 2hours or as tolerated. Off-load heels with pillow. (4) Severe anemia (5) Nosocomial pneumonia (6) Atrial fibrillation (7) Acute metabolic encephalopathy (8) History of CVA (cerebrovascular accident) (9) Diabetes mellitus (10) Hypothyroidism (11) Alzheimer's dementia (12) PVC (premature ventricular contraction) (13) Hypertension (14) Squamous cell esophageal cancer (15) Feeding by G-tube (16) Dehydration (17) Anemia (18) Severe malnutrition Assessment & Plan: Pt cachetic and presented on admission with multiple pressure injuries. Partial thickness pressure injury Cleft of L ear(L)1.2cm x (W )0.4cm. Base of wound moist and viable with small amt sanguineous exudate. Partial thickness pressure injury cleft of R ear(L)0.5cm x (W)0.7cm. Base of wound moist and viable Periwound erythematous.Small amt sanguineous exudate noted. Sacral DTPI(L)5cm x (W)10.5cm. Base of injury is purple with maroon borders. Coccygeal bony protrusion with darker skin tone, and small opening noted to R gluteus (L)0.5cm x (W)0.5cm within base of injury. No further skin breakdown periwound. Intact blood blister noted to R 1st metatarsal head(L)1.1cm x (W)2.5cm. DTPI noted to L heel extending into plantar aspect. Base of injury presents as an intact blood filled blister. Periwound is boggy with non-blanching erythema. R heel is boggy but blanchable. Tx.Plan: Apply Betadine to clefts of R and L ears. Pad oxygen tubing with gauze and keep oxygen tubing loose. Apply Moisture Barrier Paste to Sacrum. Cover with Optifoam drsg. Change every 3 days and prn. Apply Betadine to L heel. Cover with Optifoam drsg. Change every 3 days and prn. Apply Betadine to R 1st metatarsal head. Cover with Optifoam drsg. Change every 3 days and prn. Apply Cavilon Skin Barrier R heel. Cover with Optifoam drsg. Change every 7 days and prn. Reposition at least every 2hours or as tolerated. Off-load heels with pillow. (19) Encounter for PEG (percutaneous endoscopic gastrostomy) (20) At high risk for aspiration (21) Pleural effusion (22) Suspected COVID-19 virus infection Jan Mora Sep 14, 2019 15:44
[2019-09-15] VITALS (26 sets, daily range): BP systolic 123–181; BP diastolic 46–71
[2019-09-15 05:47] LABS: BASOPHILS % (AUTO) 0.8 % (0.0-2.0); EOSINOPHILS % (AUTO) 8.1 % (0.0-3.0); HEMATOCRIT 26.1 % (42.0-52.0); HEMOGLOBIN 8.4 G/DL (14.2-18.0); LYMPHOCYTES % (AUTO) 22.1 % (20.0-45.0); MEAN CORPUSCULAR VOLUME 83 FL (80-99); MONOCYTES % (AUTO) 8.7 % (1.0-10.0); NEUTROPHILS % (AUTO) 60.3 % (45.0-75.0); PLATELET COUNT 252 K/UL (150-450); RED BLOOD COUNT 3.14 M/UL (4.70-6.10); RED CELL DISTRIBUTION WIDTH 19.4 % (11.6-14.8); WHITE BLOOD COUNT 5.7 K/UL (4.8-10.8)
[2019-09-15 06:28] LABS: ALANINE AMINOTRANSFERASE 41 U/L (12-78); ALBUMIN 1.6 G/DL (3.4-5.0); ALBUMIN/GLOBULIN RATIO 0.3 (1.0-2.7); ALKALINE PHOSPHATASE 149 U/L (46-116); ANION GAP 7 mmol/L (5-15); ASPARTATE AMINO TRANSFERASE 28 U/L (15-37); BILIRUBIN,TOTAL 0.2 MG/DL (0.2-1.0); BLOOD UREA NITROGEN 20 mg/dL (7-18); CALCIUM 8.6 MG/DL (8.5-10.1); CARBON DIOXIDE 29 MMOL/L (21-32); CHLORIDE 108 MMOL/L (98-107); CREATININE 0.9 MG/DL (0.55-1.30); POTASSIUM 3.6 MMOL/L (3.5-5.1); SODIUM 144 MMOL/L (136-145)
[2019-09-15] MEDS: Cefepime HCl 1 GM in D5W 55 ML IV SCH (08:25)
[2019-09-15] MEDS: Pantoprazole Inj IVP SCH ×2 (08:25→20:30)
[2019-09-15] MEDS: Heparin 5000 units/ml inj SUBQ SCH ×2 (08:26→20:31)
--- NOTE | 2019-09-15 08:42 | Infectious Diseases Prog Note ---
Assessment/Plan Assessment/Plan Afebrile No leukocytosis PNA SARS-CoV neg x2 MRSA screen pos sp cx: PSA and proteus CXR: Right pleural effusion, also demonstrated on prior 08/09/2019 exam, slightly increased. Hazy right lung parenchymal opacity probably represents a superimposed pleural fluid but infiltrate also possible. QTc 419 DM HTN CVA Dementia Nonverbal G tube Plan: continue cefepime # 9/10-14 4/ SP vanc #4 ( Cr increased) f/u Bcx ICU care monitor temp and CBC DC COVID isolation isolation precaution per hospital protocol DW RN Thank you for this consult. [facility] will continue to follow the patient with you. Subjective Allergies: Coded Allergies: PENICILLINS (Verified Allergy, Unknown, 10/27/18) tolretas cephalosporins Subjective Afebrile. FiO2 40% No leukocytosis follows comands did not tolerate weaning Objective Vital Signs Last 24 Hour Vital Signs Date Time Temp Pulse Resp B/P (MAP) Pulse Ox O2 Delivery O2 Flow Rate FiO2 09/15/19 08:24 66 150/60 09/15/19 07:07 54 16 40 09/15/19 07:00 58 20 155/64 (94) 100 09/15/19 06:30 56 16 09/15/19 06:00 55 16 150/54 (86) 100 09/15/19 05:30 56 17 40 09/15/19 05:30 52 15 135/50 (78) 98 09/15/19 05:00 55 16 143/62 (89) 97 09/15/19 04:30 60 16 149/68 (95) 98 09/15/19 04:00 40 09/15/19 04:00 97.9 62 20 181/57 (98) 100 09/15/19 04:00 Mechanical Ventilator 09/15/19 03:03 58 09/15/19 03:00 56 15 145/51 (82) 100 09/15/19 02:39 58 20 40 09/15/19 02:00 49 14 135/49 (77) 100 09/15/19 01:24 50 14 40 09/15/19 01:00 48 14 151/52 (85) 100 09/15/19 00:00 51 09/15/19 00:00 98.5 51 15 138/46 (76) 100 09/15/19 00:00 40 09/15/19 00:00 Mechanical Ventilator 09/14/19 23:36 63 15 40 09/14/19 23:00 52 14 128/44 (72) 100 09/14/19 22:00 56 15 151/46 (81) 100 09/14/19 21:36 60 18 40 09/14/19 21:00 55 14 132/41 (71) 100 09/14/19 20:00 40 09/14/19 20:00 98.5 58 22 153/42 (79) 100 09/14/19 20:00 Mechanical Ventilator 09/14/19 19:58 59 18 40 09/14/19 19:23 60 09/14/19 19:00 55 14 140/43 (75) 98 09/14/19 18:00 58 14 143/47 (79) 100 09/14/19 17:20 57 15 40 09/14/19 17:14 55 154/49 09/14/19 17:00 58 17 154/49 (84) 100 09/14/19 16:00 56 09/14/19 16:00 56 15 138/40 (72) 100 09/14/19 16:00 40 09/14/19 16:00 Mechanical Ventilator 09/14/19 15:18 58 16 40 09/14/19 15:00 58 17 155/42 (79) 100 09/14/19 14:00 55 15 142/40 (74) 100 09/14/19 13:10 58 18 40 09/14/19 13:00 63 18 148/47 (80) 100 09/14/19 12:00 40 09/14/19 12:00 Mechanical Ventilator 09/14/19 12:00 97.7 61 18 161/42 (81) 100 09/14/19 12:00 60 09/14/19 11:00 57 16 40 09/14/19 11:00 57 17 143/39 (73) 100 09/14/19 10:00 55 14 134/33 (66) 100 09/14/19 09:10 60 16 40 09/14/19 09:00 55 17 151/49 (83) 99 09/14/19 08:59 55 137/37 Height (Feet): 5 Height (Inches): 11.00 Weight (Pounds): 159 Objective Gen: NAD. well nourished HEENT: ETT Resp: coarse. equal chest rise. regular rate and rhythm. Abd: Soft. no TTP. nondistended. G tube site c/d/i. Neuro: opens eyes to voice and follows simpole commands Laboratory Tests Test 09/15/19 03:50 White Blood Count 5.7 K/UL (4.8-10.8) Red Blood Count 3.14 M/UL (4.70-6.10) L Hemoglobin 8.4 G/DL (14.2-18.0) L Hematocrit 26.1 % (42.0-52.0) L Mean Corpuscular Volume 83 FL (80-99) Mean Corpuscular Hemoglobin 26.6 PG (27.0-31.0) L Mean Corpuscular Hemoglobin Concent 32.0 G/DL (32.0-36.0) Red Cell Distribution Width 19.4 % (11.6-14.8) H Platelet Count 252 K/UL (150-450) Mean Platelet Volume 6.4 FL (6.5-10.1) L Neutrophils (%) (Auto) 60.3 % (45.0-75.0) Lymphocytes (%) (Auto) 22.1 % (20.0-45.0) Monocytes (%) (Auto) 8.7 % (1.0-10.0) Eosinophils (%) (Auto) 8.1 % (0.0-3.0) H Basophils (%) (Auto) 0.8 % (0.0-2.0) Sodium Level 144 MMOL/L (136-145) Potassium Level 3.6 MMOL/L (3.5-5.1) Chloride Level 108 MMOL/L (98-107) H Carbon Dioxide Level 29 MMOL/L (21-32) Anion Gap 7 mmol/L (5-15) Blood Urea Nitrogen 20 mg/dL (7-18) H Creatinine 0.9 MG/DL (0.55-1.30) Estimat Glomerular Filtration Rate > 60 mL/min (>60) Glucose Level 118 MG/DL (74-106) H Calcium Level 8.6 MG/DL (8.5-10.1) Total Bilirubin 0.2 MG/DL (0.2-1.0) Aspartate Amino Transf (AST/SGOT) 28 U/L (15-37) Alanine Aminotransferase (ALT/SGPT) 41 U/L (12-78) Alkaline Phosphatase 149 U/L (46-116) H Pro-B-Type Natriuretic Peptide 785 pg/mL (0-125) H Total Protein 6.8 G/DL (6.4-8.2) Albumin 1.6 G/DL (3.4-5.0) L Globulin 5.2 g/dL Albumin/Globulin Ratio 0.3 (1.0-2.7) L Current Medications Medications (Trade) Dose Ordered Sig/Kike Route PRN Reason Start Time Stop Time Status Last Admin Dose Admin Acetaminophen (Tylenol) 650 mg Q4H PRN ORAL fever 09/09/19 04:30 10/07/19 04:29 Amlodipine Besylate (Norvasc) 2.5 mg BID ORAL 09/13/19 18:00 10/07/19 08:59 09/15/19 08:24 Cefepime HCl 1 gm/ Dextrose 55 ml @ 110 mls/hr Q24H IV 09/10/19 09:00 09/17/19 08:59 09/15/19 08:25 Heparin Sodium (Porcine) (Heparin 5000 units/ml) 5,000 units EVERY 12 HOURS SUBQ 09/09/19 09:00 10/22/19 08:59 09/15/19 08:26 Levothyroxine Sodium (Synthroid) 75 mcg DAILY@0630 ORAL 09/12/19 06:30 10/07/19 08:29 09/15/19 05:45 Mirtazapine (Remeron) 7.5 mg BEDTIME ORAL 09/09/19 21:00 12/06/19 20:59 09/14/19 20:42 Nitroglycerin (Ntg) 0.4 mg Q5M PRN SL Prn Chest Pain 09/09/19 04:30 10/07/19 04:29 Ondansetron HCl (Zofran) 4 mg Q6H PRN IVP Nausea & Vomiting 09/09/19 04:30 10/07/19 04:29 Pantoprazole (Protonix) 40 mg Q12HR IVP 09/11/19 21:00 10/10/19 08:59 09/15/19 08:25 Polyethylene Glycol (Miralax) 17 gm DAILYPRN PRN ORAL Constipation 09/09/19 04:30 10/07/19 04:29 Promethazine HCl/ Codeine (Phenergan with Codeine) 5 ml Q4H PRN ORAL For Cough 09/09/19 04:30 10/07/19 04:29 Quetiapine Fumarate (SEROqueL) 25 mg Q8HR ORAL 09/09/19 06:00 10/22/19 08:14 09/14/19 22:39 Marcelina Matias MD Sep 15, 2019 08:42
--- NOTE | 2019-09-15 09:18 | Diagnostic Imaging Report ---
Indication: Dyspnea Technique: One view of the chest Comparison: 09/10/2019 Findings: Previously demonstrated bilateral pleural effusions are unchanged. Bilateral mostly perihilar interstitial and airspace infiltrates persist. Denser consolidation is seen in the right perihilar region and left retrocardiac region. Stable satisfactory position of endotracheal tube. Findings are overall unchanged Impression: Unchanged, over 5 days, findings as above.
--- NOTE | 2019-09-15 10:58 | Pulmonolgy Critical Care Note ---
Critical Care - Asmt/Plan Problems: (1) Acute respiratory failure (2) Suspected COVID-19 virus infection (3) Nosocomial pneumonia (4) Sepsis (5) Diabetes mellitus (6) At high risk for aspiration (7) Severe malnutrition (8) Feeding by G-tube (9) Squamous cell esophageal cancer (10) Alzheimer's dementia (11) History of CVA (cerebrovascular accident) Respiratory: monitor respiratory rate, adjust FIO2, CXR Cardiac: continue to monitor HR/BP Renal: F/U I&O, check electrolytes Infectious Disease: check cultures, continue antibiotics Gastrointestinal: continue feedings/current rate Endocrine: monitor blood sugar Hematologic: monitor H/H, transfuse if hgb<8.5 Neurologic: PRN Ativan, PRN Morphine, keep patient comfortable Prophylaxis: Protonix Time Spent (Minutes): 40 Notes Reviewed: cardio, 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 with: nurses, consultants, 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 - Objective Last 24 Hour Vital Signs Date Time Temp Pulse Resp B/P (MAP) Pulse Ox O2 Delivery O2 Flow Rate FiO2 09/15/19 10:48 58 22 40 09/15/19 09:14 60 20 40 09/15/19 09:11 100 09/15/19 09:00 55 15 147/58 (87) 100 09/15/19 08:24 66 150/60 09/15/19 08:00 40 09/15/19 08:00 Mechanical Ventilator 09/15/19 08:00 97.7 61 17 150/60 (90) 100 09/15/19 07:07 54 16 40 09/15/19 07:00 58 20 155/64 (94) 100 09/15/19 06:30 56 16 09/15/19 06:00 55 16 150/54 (86) 100 09/15/19 05:30 56 17 40 09/15/19 05:30 52 15 135/50 (78) 98 09/15/19 05:00 55 16 143/62 (89) 97 09/15/19 04:30 60 16 149/68 (95) 98 09/15/19 04:00 40 09/15/19 04:00 97.9 62 20 181/57 (98) 100 09/15/19 04:00 Mechanical Ventilator 09/15/19 03:03 58 09/15/19 03:00 56 15 145/51 (82) 100 09/15/19 02:39 58 20 40 09/15/19 02:00 49 14 135/49 (77) 100 09/15/19 01:24 50 14 40 09/15/19 01:00 48 14 151/52 (85) 100 09/15/19 00:00 51 09/15/19 00:00 98.5 51 15 138/46 (76) 100 09/15/19 00:00 40 09/15/19 00:00 Mechanical Ventilator 09/14/19 23:36 63 15 40 09/14/19 23:00 52 14 128/44 (72) 100 09/14/19 22:00 56 15 151/46 (81) 100 09/14/19 21:36 60 18 40 09/14/19 21:00 55 14 132/41 (71) 100 09/14/19 20:00 40 09/14/19 20:00 98.5 58 22 153/42 (79) 100 09/14/19 20:00 Mechanical Ventilator 09/14/19 19:58 59 18 40 09/14/19 19:23 60 09/14/19 19:00 55 14 140/43 (75) 98 09/14/19 18:00 58 14 143/47 (79) 100 09/14/19 17:20 57 15 40 09/14/19 17:14 55 154/49 09/14/19 17:00 58 17 154/49 (84) 100 09/14/19 16:00 56 09/14/19 16:00 56 15 138/40 (72) 100 09/14/19 16:00 40 09/14/19 16:00 Mechanical Ventilator 09/14/19 15:18 58 16 40 09/14/19 15:00 58 17 155/42 (79) 100 09/14/19 14:00 55 15 142/40 (74) 100 09/14/19 13:10 58 18 40 09/14/19 13:00 63 18 148/47 (80) 100 09/14/19 12:00 40 09/14/19 12:00 Mechanical Ventilator 09/14/19 12:00 97.7 61 18 161/42 (81) 100 09/14/19 12:00 60 09/14/19 11:00 57 16 40 09/14/19 11:00 57 17 143/39 (73) 100 Status: awake Condition: critical HEENT: atraumatic Neck: full ROM Lungs: clear Abdomen: soft, feeding tube Decubiti: location Critical Care - Subjective ROS Limited/Unobtainable: No Condition: critical EKG Rhythm: Sinus Rhythm FI02: 40 Vent Support Breath Rate: 14 Vent Support Mode: AC Vent Tidal Volume: 550 Sputum Amount: Small PEEP: 5.0 PIP: 29 Tube Feeding Amount: 60 I&O: Intake and Output 09/14/19 09/15/19 19:00 07:00 Intake Total 775 ml 800 ml Output Total 485 ml 675 ml Balance 290 ml 125 ml IV Total 55 ml Tube Feeding 720 ml 600 ml Other 200 ml Output Urine Total 485 ml 675 ml ET-Tube: 7.5 ET Position: 23 Labs: Laboratory Tests Test 09/15/19 03:50 White Blood Count 5.7 K/UL (4.8-10.8) Red Blood Count 3.14 M/UL (4.70-6.10) L Hemoglobin 8.4 G/DL (14.2-18.0) L Hematocrit 26.1 % (42.0-52.0) L Mean Corpuscular Volume 83 FL (80-99) Mean Corpuscular Hemoglobin 26.6 PG (27.0-31.0) L Mean Corpuscular Hemoglobin Concent 32.0 G/DL (32.0-36.0) Red Cell Distribution Width 19.4 % (11.6-14.8) H Platelet Count 252 K/UL (150-450) Mean Platelet Volume 6.4 FL (6.5-10.1) L Neutrophils (%) (Auto) 60.3 % (45.0-75.0) Lymphocytes (%) (Auto) 22.1 % (20.0-45.0) Monocytes (%) (Auto) 8.7 % (1.0-10.0) Eosinophils (%) (Auto) 8.1 % (0.0-3.0) H Basophils (%) (Auto) 0.8 % (0.0-2.0) Sodium Level 144 MMOL/L (136-145) Potassium Level 3.6 MMOL/L (3.5-5.1) Chloride Level 108 MMOL/L (98-107) H Carbon Dioxide Level 29 MMOL/L (21-32) Anion Gap 7 mmol/L (5-15) Blood Urea Nitrogen 20 mg/dL (7-18) H Creatinine 0.9 MG/DL (0.55-1.30) Estimat Glomerular Filtration Rate > 60 mL/min (>60) Glucose Level 118 MG/DL (74-106) H Calcium Level 8.6 MG/DL (8.5-10.1) Total Bilirubin 0.2 MG/DL (0.2-1.0) Aspartate Amino Transf (AST/SGOT) 28 U/L (15-37) Alanine Aminotransferase (ALT/SGPT) 41 U/L (12-78) Alkaline Phosphatase 149 U/L (46-116) H Pro-B-Type Natriuretic Peptide 785 pg/mL (0-125) H Total Protein 6.8 G/DL (6.4-8.2) Albumin 1.6 G/DL (3.4-5.0) L Globulin 5.2 g/dL Albumin/Globulin Ratio 0.3 (1.0-2.7) L Vania Hui MD Sep 15, 2019 10:58
--- NOTE | 2019-09-15 13:00 | Nephrology Progress Note ---
Assessment/Plan Problem List: (1) RAMAN (acute kidney injury) Assessment: Serum creatinine normalized with hydration (2) Dehydration (3) Suspected COVID-19 virus infection (4) Anemia (5) Sepsis (6) Diabetes mellitus (7) Hypothyroidism Assessment - Acute renal failure - Severe anemia - Sepsis, pneumonia, acute respiratory failure, suspected: Viewed 19 virus infection - Diabetes mellitus - Hypothyroidism - Feeding by G-tube - Squamous cell esophageal cancer - History of CVA (cerebrovascular accident) Plan Plan: Failing weaning from ventilator Changes Seroquel to as needed due to bradycardia Discontinue IV fluid Monitor renal parameters, serum creatinine Adjust electrolytes with supplements Increase Synthroid dose Avoid nephrotoxic's as possible Ventilator management Urine studies Per orders Subjective ROS Limited/Unobtainable: Yes Objective Objective Last 24 Hour Vital Signs Date Time Temp Pulse Resp B/P (MAP) Pulse Ox O2 Delivery O2 Flow Rate FiO2 09/15/19 12:00 57 09/15/19 12:00 40 09/15/19 12:00 Mechanical Ventilator 09/15/19 12:00 97.7 63 14 138/71 (93) 100 09/15/19 11:00 57 14 124/69 (87) 96 09/15/19 10:48 58 22 40 09/15/19 10:00 55 15 153/57 (89) 100 09/15/19 09:14 60 20 40 09/15/19 09:11 100 09/15/19 09:00 55 15 147/58 (87) 100 09/15/19 08:24 66 150/60 09/15/19 08:00 63 09/15/19 08:00 40 09/15/19 08:00 Mechanical Ventilator 09/15/19 08:00 97.7 61 17 150/60 (90) 100 09/15/19 07:07 54 16 40 09/15/19 07:00 58 20 155/64 (94) 100 09/15/19 06:30 56 16 09/15/19 06:00 55 16 150/54 (86) 100 09/15/19 05:30 56 17 40 09/15/19 05:30 52 15 135/50 (78) 98 09/15/19 05:00 55 16 143/62 (89) 97 09/15/19 04:30 60 16 149/68 (95) 98 09/15/19 04:00 40 09/15/19 04:00 97.9 62 20 181/57 (98) 100 09/15/19 04:00 Mechanical Ventilator 09/15/19 03:03 58 09/15/19 03:00 56 15 145/51 (82) 100 09/15/19 02:39 58 20 40 09/15/19 02:00 49 14 135/49 (77) 100 09/15/19 01:24 50 14 40 09/15/19 01:00 48 14 151/52 (85) 100 09/15/19 00:00 51 09/15/19 00:00 98.5 51 15 138/46 (76) 100 09/15/19 00:00 40 09/15/19 00:00 Mechanical Ventilator 09/14/19 23:36 63 15 40 09/14/19 23:00 52 14 128/44 (72) 100 09/14/19 22:00 56 15 151/46 (81) 100 09/14/19 21:36 60 18 40 09/14/19 21:00 55 14 132/41 (71) 100 09/14/19 20:00 40 09/14/19 20:00 98.5 58 22 153/42 (79) 100 09/14/19 20:00 Mechanical Ventilator 09/14/19 19:58 59 18 40 09/14/19 19:23 60 09/14/19 19:00 55 14 140/43 (75) 98 09/14/19 18:00 58 14 143/47 (79) 100 09/14/19 17:20 57 15 40 09/14/19 17:14 55 154/49 09/14/19 17:00 58 17 154/49 (84) 100 09/14/19 16:00 56 09/14/19 16:00 56 15 138/40 (72) 100 09/14/19 16:00 40 09/14/19 16:00 Mechanical Ventilator 09/14/19 15:18 58 16 40 09/14/19 15:00 58 17 155/42 (79) 100 09/14/19 14:00 55 15 142/40 (74) 100 09/14/19 13:10 58 18 40 09/14/19 13:00 63 18 148/47 (80) 100 Intake and Output 09/14/19 09/15/19 19:00 07:00 Intake Total 775 ml 800 ml Output Total 485 ml 675 ml Balance 290 ml 125 ml IV Total 55 ml Tube Feeding 720 ml 600 ml Other 200 ml Output Urine Total 485 ml 675 ml Laboratory Tests 09/15/19 03:50: White Blood Count 5.7, Red Blood Count 3.14L, Hemoglobin 8.4L, Hematocrit 26.1L , Mean Corpuscular Volume 83, Mean Corpuscular Hemoglobin 26.6L, Mean Corpuscular Hemoglobin Concent 32.0, Red Cell Distribution Width 19.4H, Platelet Count 252, Mean Platelet Volume 6.4L, Neutrophils (%) (Auto) 60.3, Lymphocytes (%) (Auto) 22.1, Monocytes (%) (Auto) 8.7, Eosinophils (%) (Auto) 8.1H, Basophils (%) (Auto) 0.8, Sodium Level 144, Potassium Level 3.6, Chloride Level 108H, Carbon Dioxide Level 29, Anion Gap 7, Blood Urea Nitrogen 20H, Creatinine 0.9, Estimat Glomerular Filtration Rate > 60, Glucose Level 118H, Calcium Level 8.6, Total Bilirubin 0.2, Aspartate Amino Transf (AST/SGOT) 28, Alanine Aminotransferase (ALT/SGPT) 41, Alkaline Phosphatase 149H, Pro-B-Type Natriuretic Peptide 785H, Total Protein 6.8, Albumin 1.6L, Globulin 5.2, Albumin /Globulin Ratio 0.3L Height (Feet): 5 Height (Inches): 11.00 Weight (Pounds): 159 General Appearance: no apparent distress EENT: other - Remains intubated and vented Cardiovascular: bradycardia Respiratory/Chest: decreased breath sounds Abdomen: distended Clovis Benites MD Sep 15, 2019 13:00
--- NOTE | 2019-09-15 14:54 | Surgery Progress Note ---
Surgery Progress Note Subjective Additional Comments more awake and alert on support labs reviewed images noted Objective Last 24 Hour Vital Signs Date Time Temp Pulse Resp B/P (MAP) Pulse Ox O2 Delivery O2 Flow Rate FiO2 09/15/19 14:00 58 14 131/48 (75) 100 09/15/19 13:19 62 15 40 09/15/19 13:00 62 19 160/51 (87) 100 09/15/19 12:00 57 09/15/19 12:00 40 09/15/19 12:00 Mechanical Ventilator 09/15/19 12:00 97.7 63 14 138/71 (93) 100 09/15/19 11:00 57 14 124/69 (87) 96 09/15/19 10:48 58 22 40 09/15/19 10:00 55 15 153/57 (89) 100 09/15/19 09:14 60 20 40 09/15/19 09:11 100 09/15/19 09:00 55 15 147/58 (87) 100 09/15/19 08:24 66 150/60 09/15/19 08:00 63 09/15/19 08:00 40 09/15/19 08:00 Mechanical Ventilator 09/15/19 08:00 97.7 61 17 150/60 (90) 100 09/15/19 07:07 54 16 40 09/15/19 07:00 58 20 155/64 (94) 100 09/15/19 06:30 56 16 09/15/19 06:00 55 16 150/54 (86) 100 09/15/19 05:30 56 17 40 09/15/19 05:30 52 15 135/50 (78) 98 09/15/19 05:00 55 16 143/62 (89) 97 09/15/19 04:30 60 16 149/68 (95) 98 09/15/19 04:00 40 09/15/19 04:00 97.9 62 20 181/57 (98) 100 09/15/19 04:00 Mechanical Ventilator 09/15/19 03:03 58 09/15/19 03:00 56 15 145/51 (82) 100 09/15/19 02:39 58 20 40 09/15/19 02:00 49 14 135/49 (77) 100 09/15/19 01:24 50 14 40 09/15/19 01:00 48 14 151/52 (85) 100 09/15/19 00:00 51 09/15/19 00:00 98.5 51 15 138/46 (76) 100 09/15/19 00:00 40 09/15/19 00:00 Mechanical Ventilator 09/14/19 23:36 63 15 40 09/14/19 23:00 52 14 128/44 (72) 100 09/14/19 22:00 56 15 151/46 (81) 100 09/14/19 21:36 60 18 40 09/14/19 21:00 55 14 132/41 (71) 100 09/14/19 20:00 40 09/14/19 20:00 98.5 58 22 153/42 (79) 100 09/14/19 20:00 Mechanical Ventilator 09/14/19 19:58 59 18 40 09/14/19 19:23 60 09/14/19 19:00 55 14 140/43 (75) 98 09/14/19 18:00 58 14 143/47 (79) 100 09/14/19 17:20 57 15 40 09/14/19 17:14 55 154/49 09/14/19 17:00 58 17 154/49 (84) 100 09/14/19 16:00 56 09/14/19 16:00 56 15 138/40 (72) 100 09/14/19 16:00 40 09/14/19 16:00 Mechanical Ventilator 09/14/19 15:18 58 16 40 09/14/19 15:00 58 17 155/42 (79) 100 I&O Intake and Output 09/14/19 09/15/19 19:00 07:00 Intake Total 775 ml 800 ml Output Total 485 ml 675 ml Balance 290 ml 125 ml IV Total 55 ml Tube Feeding 720 ml 600 ml Other 200 ml Output Urine Total 485 ml 675 ml Dressing: other Wound: other Drains: other Cardiovascular: RSR Respiratory: decreased breath sounds Abdomen: soft, non-tender, present bowel sounds Extremities: no tenderness, no cyanosis Laboratory Tests Test 09/15/19 03:50 White Blood Count 5.7 K/UL (4.8-10.8) Red Blood Count 3.14 M/UL (4.70-6.10) L Hemoglobin 8.4 G/DL (14.2-18.0) L Hematocrit 26.1 % (42.0-52.0) L Mean Corpuscular Volume 83 FL (80-99) Mean Corpuscular Hemoglobin 26.6 PG (27.0-31.0) L Mean Corpuscular Hemoglobin Concent 32.0 G/DL (32.0-36.0) Red Cell Distribution Width 19.4 % (11.6-14.8) H Platelet Count 252 K/UL (150-450) Mean Platelet Volume 6.4 FL (6.5-10.1) L Neutrophils (%) (Auto) 60.3 % (45.0-75.0) Lymphocytes (%) (Auto) 22.1 % (20.0-45.0) Monocytes (%) (Auto) 8.7 % (1.0-10.0) Eosinophils (%) (Auto) 8.1 % (0.0-3.0) H Basophils (%) (Auto) 0.8 % (0.0-2.0) Sodium Level 144 MMOL/L (136-145) Potassium Level 3.6 MMOL/L (3.5-5.1) Chloride Level 108 MMOL/L (98-107) H Carbon Dioxide Level 29 MMOL/L (21-32) Anion Gap 7 mmol/L (5-15) Blood Urea Nitrogen 20 mg/dL (7-18) H Creatinine 0.9 MG/DL (0.55-1.30) Estimat Glomerular Filtration Rate > 60 mL/min (>60) Glucose Level 118 MG/DL (74-106) H Calcium Level 8.6 MG/DL (8.5-10.1) Total Bilirubin 0.2 MG/DL (0.2-1.0) Aspartate Amino Transf (AST/SGOT) 28 U/L (15-37) Alanine Aminotransferase (ALT/SGPT) 41 U/L (12-78) Alkaline Phosphatase 149 U/L (46-116) H Pro-B-Type Natriuretic Peptide 785 pg/mL (0-125) H Total Protein 6.8 G/DL (6.4-8.2) Albumin 1.6 G/DL (3.4-5.0) L Globulin 5.2 g/dL Albumin/Globulin Ratio 0.3 (1.0-2.7) L Plan Problems: (1) UTI (urinary tract infection) (2) Acute respiratory failure Assessment & Plan: There is infiltrate suspected in the right perihilar region obscuring the right hilum. There is a hazy opacity that may partially be accounted for by pleural fluid on the right. Reticular densities are present on the left in the perihilar aspect of the lung. Endotracheal tube is in good position just above the anselmo. Heart size is normal. IMPRESSION: Suspected perihilar airspace disease in the right lung suspicious for pneumonia. Reticular nodular infiltrate in the left lung noted also. Right pleural effusion suspected. Endotracheal tube in good position cont vents support (3) Sepsis Assessment & Plan: Pt cachetic and presented on admission with multiple pressure injuries. Partial thickness pressure injury Cleft of L ear(L)1.2cm x (W)0.4cm. Base of wound moist and viable with small amt sanguineous exudate. Partial thickness pressure injury cleft of R ear(L)0.5cm x (W)0.7cm. Base of wound moist and viable Periwound erythematous.Small amt sanguineous exudate noted. Sacral DTPI(L)5cm x (W)10.5cm. Base of injury is purple with maroon borders. Coccygeal bony protrusion with darker skin tone, and small opening noted to R gluteus (L)0.5cm x (W)0.5cm within base of injury. No further skin breakdown periwound. Intact blood blister noted to R 1st metatarsal head(L)1.1cm x (W)2.5cm. DTPI noted to L heel extending into plantar aspect. Base of injury presents as an intact blood filled blister. Periwound is boggy with non-blanching erythema. R heel is boggy but blanchable. wounds unlikely etiology of sepsis respiratory but given current condition high risk for breakdown and worsening will monitor closely discussed with RN and staff great care being provided Tx.Plan: Apply Betadine to clefts of R and L ears. Pad oxygen tubing with gauze and keep oxygen tubing loose. Apply Moisture Barrier Paste to Sacrum. Cover with Optifoam drsg. Change every 3 days and prn. Apply Betadine to L heel. Cover with Optifoam drsg. Change every 3 days and prn. Apply Betadine to R 1st metatarsal head. Cover with Optifoam drsg. Change every 3 days and prn. Apply Cavilon Skin Barrier R heel. Cover with Optifoam drsg. Change every 7 days and prn. Reposition at least every 2hours or as tolerated. Off-load heels with pillow. (4) Severe anemia (5) Nosocomial pneumonia (6) Atrial fibrillation (7) Acute metabolic encephalopathy (8) History of CVA (cerebrovascular accident) (9) Diabetes mellitus (10) Hypothyroidism (11) Alzheimer's dementia (12) PVC (premature ventricular contraction) (13) Hypertension (14) Squamous cell esophageal cancer (15) Feeding by G-tube (16) Dehydration (17) Anemia (18) Severe malnutrition Assessment & Plan: Pt cachetic and presented on admission with multiple pressure injuries. Partial thickness pressure injury Cleft of L ear(L)1.2cm x (W )0.4cm. Base of wound moist and viable with small amt sanguineous exudate. Partial thickness pressure injury cleft of R ear(L)0.5cm x (W)0.7cm. Base of wound moist and viable Periwound erythematous.Small amt sanguineous exudate noted. Sacral DTPI(L)5cm x (W)10.5cm. Base of injury is purple with maroon borders. Coccygeal bony protrusion with darker skin tone, and small opening noted to R gluteus (L)0.5cm x (W)0.5cm within base of injury. No further skin breakdown periwound. Intact blood blister noted to R 1st metatarsal head(L)1.1cm x (W)2.5cm. DTPI noted to L heel extending into plantar aspect. Base of injury presents as an intact blood filled blister. Periwound is boggy with non-blanching erythema. R heel is boggy but blanchable. Tx.Plan: Apply Betadine to clefts of R and L ears. Pad oxygen tubing with gauze and keep oxygen tubing loose. Apply Moisture Barrier Paste to Sacrum. Cover with Optifoam drsg. Change every 3 days and prn. Apply Betadine to L heel. Cover with Optifoam drsg. Change every 3 days and prn. Apply Betadine to R 1st metatarsal head. Cover with Optifoam drsg. Change every 3 days and prn. Apply Cavilon Skin Barrier R heel. Cover with Optifoam drsg. Change every 7 days and prn. Reposition at least every 2hours or as tolerated. Off-load heels with pillow. (19) Encounter for PEG (percutaneous endoscopic gastrostomy) (20) At high risk for aspiration (21) Pleural effusion (22) Suspected COVID-19 virus infection Jan Mora Sep 15, 2019 14:54
--- NOTE | 2019-09-15 15:42 | Internal Med Progress Note ---
Subjective Date of Service: Sep 15, 2019 Physician Name NiurkaXander Attending Physician Lamont Hayes MD Current Medications Medications (Trade) Dose Ordered Sig/Kike Route PRN Reason Start Time Stop Time Status Last Admin Dose Admin Acetaminophen (Tylenol) 650 mg Q4H PRN ORAL fever 09/09/19 04:30 10/07/19 04:29 Amlodipine Besylate (Norvasc) 2.5 mg BID ORAL 09/13/19 18:00 10/07/19 08:59 09/15/19 08:24 Cefepime HCl 1 gm/ Dextrose 55 ml @ 110 mls/hr Q24H IV 09/10/19 09:00 09/17/19 08:59 09/15/19 08:25 Heparin Sodium (Porcine) (Heparin 5000 units/ml) 5,000 units EVERY 12 HOURS SUBQ 09/09/19 09:00 10/22/19 08:59 09/15/19 08:26 Levothyroxine Sodium (Synthroid) 75 mcg DAILY@0630 ORAL 09/12/19 06:30 10/07/19 08:29 09/15/19 05:45 Mirtazapine (Remeron) 7.5 mg BEDTIME ORAL 09/09/19 21:00 12/06/19 20:59 09/14/19 20:42 Nitroglycerin (Ntg) 0.4 mg Q5M PRN SL Prn Chest Pain 09/09/19 04:30 10/07/19 04:29 Ondansetron HCl (Zofran) 4 mg Q6H PRN IVP Nausea & Vomiting 09/09/19 04:30 10/07/19 04:29 Pantoprazole (Protonix) 40 mg Q12HR IVP 09/11/19 21:00 10/10/19 08:59 09/15/19 08:25 Polyethylene Glycol (Miralax) 17 gm DAILYPRN PRN ORAL Constipation 09/09/19 04:30 10/07/19 04:29 Promethazine HCl/ Codeine (Phenergan with Codeine) 5 ml Q4H PRN ORAL For Cough 09/09/19 04:30 10/07/19 04:29 Quetiapine Fumarate (SEROqueL) 25 mg Q8H PRN NG Agitation 09/15/19 13:15 10/30/19 13:14 Allergies: Coded Allergies: PENICILLINS (Verified Allergy, Unknown, 10/27/18) tolretas cephalosporins ROS Limited/Unobtainable: Yes Subjective 84 YO M admitted with cough and congestion. Now right pleural effusion and pneumonia. Cover for Int Med-Dr Hayes. ICU. Intubated and sedated Objective Last Vital Signs Date Time Temp Pulse Resp B/P (MAP) Pulse Ox O2 Delivery O2 Flow Rate FiO2 09/15/19 15:00 57 14 40 09/15/19 14:00 131/48 (75) 100 09/15/19 12:00 Mechanical Ventilator 09/15/19 12:00 97.7 09/08/19 21:00 2.0 Laboratory Tests Test 09/15/19 03:50 White Blood Count 5.7 K/UL (4.8-10.8) Red Blood Count 3.14 M/UL (4.70-6.10) L Hemoglobin 8.4 G/DL (14.2-18.0) L Hematocrit 26.1 % (42.0-52.0) L Mean Corpuscular Volume 83 FL (80-99) Mean Corpuscular Hemoglobin 26.6 PG (27.0-31.0) L Mean Corpuscular Hemoglobin Concent 32.0 G/DL (32.0-36.0) Red Cell Distribution Width 19.4 % (11.6-14.8) H Platelet Count 252 K/UL (150-450) Mean Platelet Volume 6.4 FL (6.5-10.1) L Neutrophils (%) (Auto) 60.3 % (45.0-75.0) Lymphocytes (%) (Auto) 22.1 % (20.0-45.0) Monocytes (%) (Auto) 8.7 % (1.0-10.0) Eosinophils (%) (Auto) 8.1 % (0.0-3.0) H Basophils (%) (Auto) 0.8 % (0.0-2.0) Sodium Level 144 MMOL/L (136-145) Potassium Level 3.6 MMOL/L (3.5-5.1) Chloride Level 108 MMOL/L (98-107) H Carbon Dioxide Level 29 MMOL/L (21-32) Anion Gap 7 mmol/L (5-15) Blood Urea Nitrogen 20 mg/dL (7-18) H Creatinine 0.9 MG/DL (0.55-1.30) Estimat Glomerular Filtration Rate > 60 mL/min (>60) Glucose Level 118 MG/DL (74-106) H Calcium Level 8.6 MG/DL (8.5-10.1) Total Bilirubin 0.2 MG/DL (0.2-1.0) Aspartate Amino Transf (AST/SGOT) 28 U/L (15-37) Alanine Aminotransferase (ALT/SGPT) 41 U/L (12-78) Alkaline Phosphatase 149 U/L (46-116) H Pro-B-Type Natriuretic Peptide 785 pg/mL (0-125) H Total Protein 6.8 G/DL (6.4-8.2) Albumin 1.6 G/DL (3.4-5.0) L Globulin 5.2 g/dL Albumin/Globulin Ratio 0.3 (1.0-2.7) L Intake and Output 09/14/19 09/15/19 19:00 07:00 Intake Total 775 ml 800 ml Output Total 485 ml 675 ml Balance 290 ml 125 ml IV Total 55 ml Tube Feeding 720 ml 600 ml Other 200 ml Output Urine Total 485 ml 675 ml Objective PHYSICAL EXAMINATION: GENERAL: The patient is a thin-appearing male, in no apparent distress. HEENT: Eyes, pupils are equal and responsive to light and accommodation. Extraocular movements are intact. NECK: Supple without lymphadenopathy. CHEST: Mech vent; Lungs are clear to auscultation bilaterally with decreased breath sounds on the right. There are no wheezes appreciated. ABDOMEN: Soft, nontender, and nondistended. Positive bowel sounds. No evidence of hepatosplenomegaly. Currently, no rebound or guarding noted. EXTREMITIES: Negative for clubbing, cyanosis, or edema. RECTAL/GENITAL: Not performed. NEUROLOGIC: Cranial nerves II through XII are grossly intact without focal deficits. Assessment/Plan Assessment/Plan ASSESSMENT: This is an 84-year-old male with: 1. Possible right pneumonia=pseudamonas 2. Urinary tract infection=jennifer 3. Right pleural effusion. 4. Esophageal mass. 5. Dysphagia. 6. Diabetes. 7. Alzheimer's dementia. 8. Cerebrovascular disease. 9. Hypothyroidism. 10. Seizure disorder. 11. Iron deficiency anemia. TREATMENT: 1. Right perihilar Pneumonia/pleural effusion. COVID 19 and Influenza negative. A Pulmonary consultation has been obtained with Dr. Vania Hui. The patient underwent thoracentesis during previous hospitalization. We will follow recommendation of Pulmonary. Continue vanco and cefepime per ID=Dr Matias ABX= cefepime 2. Urinary tract infection. . A urine culture =jennifer 3. Right pleural effusion. As above, a Pulmonary consultation has been obtained with Dr. Vania Hui. The patient may require thoracentesis during this hospitalization. 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 A Gastroenterology consultation has been obtained with Dr. Darrick Rosario. 5. Dysphagia. The patient is status post PEG placement on 08/08/2019 at [facility] by Dr. Darrick Rosario. 6. Diabetes type 2. A NovoLog sliding scale has been instituted. 7. Alzheimer's dementia. 8. Cerebrovascular disease, status post cerebrovascular accident. 9. Hypothyroidism. Continue levothyroxine as above. 10. Seizure disorder. 11. Iron deficiency anemia. Xander Bah MD Sep 15, 2019 15:42
[2019-09-16] VITALS (25 sets, daily range): BP systolic 96–188; BP diastolic 42–81
[2019-09-16 05:43] LABS: HEMATOCRIT 28.2 % (42.0-52.0); LYMPHOCYTES % (AUTO) 21.2 % (20.0-45.0); MEAN CORPUSCULAR VOLUME 83 FL (80-99); MONOCYTES % (AUTO) 7.4 % (1.0-10.0); NEUTROPHILS % (AUTO) 62.3 % (45.0-75.0); PLATELET COUNT 315 K/UL (150-450); RED BLOOD COUNT 3.41 M/UL (4.70-6.10); RED CELL DISTRIBUTION WIDTH 18.9 % (11.6-14.8)
[2019-09-16 05:57] LABS: ANION GAP 3 mmol/L (5-15); BLOOD UREA NITROGEN 17 mg/dL (7-18); CALCIUM 8.4 MG/DL (8.5-10.1); CARBON DIOXIDE 33 MMOL/L (21-32); CHLORIDE 108 MMOL/L (98-107); CREATININE 0.9 MG/DL (0.55-1.30); POTASSIUM 3.5 MMOL/L (3.5-5.1); SODIUM 144 MMOL/L (136-145)
--- NOTE | 2019-09-16 08:41 | Infectious Diseases Prog Note ---
Assessment/Plan Assessment/Plan Afebrile No leukocytosis PNA SARS-CoV neg x2 MRSA screen pos sp cx: PSA and proteus CXR: Right pleural effusion, also demonstrated on prior 08/09/2019 exam, slightly increased. Hazy right lung parenchymal opacity probably represents a superimposed pleural fluid but infiltrate also possible. QTc 419 DM HTN CVA Dementia Nonverbal G tube Plan: continue cefepime # 10/10-14 / SP vanc #4 ( Cr increased) f/u Bcx ICU care monitor temp and CBC DC COVID isolation isolation precaution per hospital protocol DW RN Thank you for this consult. [facility] will continue to follow the patient with you. Subjective Allergies: Coded Allergies: PENICILLINS (Verified Allergy, Unknown, 10/27/18) tolretas cephalosporins Subjective Afebrile. FiO2 40% No leukocytosis follows simple commands. denies sob Objective Vital Signs Last 24 Hour Vital Signs Date Time Temp Pulse Resp B/P (MAP) Pulse Ox O2 Delivery O2 Flow Rate FiO2 09/16/19 08:00 40 09/16/19 08:00 98.5 57 15 150/59 (89) 100 09/16/19 07:00 55 16 157/56 (89) 100 09/16/19 06:30 57 16 09/16/19 06:00 57 16 148/63 (91) 100 09/16/19 05:20 60 16 40 09/16/19 05:00 56 16 144/53 (83) 100 09/16/19 04:00 40 09/16/19 04:00 98.1 57 16 161/64 (96) 100 09/16/19 04:00 Mechanical Ventilator 09/16/19 03:33 58 09/16/19 03:31 57 16 40 09/16/19 03:00 56 14 138/57 (84) 95 09/16/19 02:00 63 16 170/58 (95) 100 09/16/19 01:23 58 14 40 09/16/19 01:00 57 15 163/48 (86) 100 09/16/19 00:00 98.4 57 15 142/53 (82) 100 09/16/19 00:00 40 09/16/19 00:00 Mechanical Ventilator 09/15/19 23:38 57 09/15/19 23:19 56 14 40 09/15/19 23:00 55 14 137/52 (80) 100 09/15/19 22:00 54 14 126/47 (73) 89 09/15/19 21:30 52 14 40 09/15/19 21:00 55 14 147/57 (87) 100 09/15/19 20:00 Mechanical Ventilator 09/15/19 20:00 60 17 154/56 (88) 100 09/15/19 20:00 60 09/15/19 20:00 40 09/15/19 19:48 56 15 40 09/15/19 19:00 59 18 156/52 (86) 100 09/15/19 18:00 55 14 146/61 (89) 100 09/15/19 17:15 60 163/88 09/15/19 17:01 62 16 40 09/15/19 17:00 56 14 123/46 (71) 100 09/15/19 16:00 97.5 58 14 138/51 (80) 100 09/15/19 16:00 58 14 138/51 (80) 100 09/15/19 16:00 Mechanical Ventilator 09/15/19 16:00 60 09/15/19 16:00 40 09/15/19 15:00 61 15 124/62 (82) 100 09/15/19 15:00 57 14 40 09/15/19 14:00 58 14 131/48 (75) 100 09/15/19 13:19 62 15 40 09/15/19 13:00 62 19 160/51 (87) 100 09/15/19 12:00 57 09/15/19 12:00 40 09/15/19 12:00 Mechanical Ventilator 09/15/19 12:00 97.7 63 14 138/71 (93) 100 09/15/19 11:00 57 14 124/69 (87) 96 09/15/19 10:48 58 22 40 09/15/19 10:00 55 15 153/57 (89) 100 09/15/19 09:14 60 20 40 09/15/19 09:11 100 09/15/19 09:00 55 15 147/58 (87) 100 Height (Feet): 5 Height (Inches): 11.00 Weight (Pounds): 156 Objective Gen: NAD. well nourished HEENT: ETT. oral secretions Resp: coarse. equal chest rise. regular rate and rhythm. Abd: Soft. no TTP. nondistended. G tube site c/d/i. Neuro: opens eyes to voice and follows simple commands Laboratory Tests Test 09/16/19 03:30 White Blood Count 6.0 K/UL (4.8-10.8) Red Blood Count 3.41 M/UL (4.70-6.10) L Hemoglobin 9.0 G/DL (14.2-18.0) L Hematocrit 28.2 % (42.0-52.0) L Mean Corpuscular Volume 83 FL (80-99) Mean Corpuscular Hemoglobin 26.6 PG (27.0-31.0) L Mean Corpuscular Hemoglobin Concent 32.0 G/DL (32.0-36.0) Red Cell Distribution Width 18.9 % (11.6-14.8) H Platelet Count 315 K/UL (150-450) Mean Platelet Volume 5.6 FL (6.5-10.1) L Neutrophils (%) (Auto) 62.3 % (45.0-75.0) Lymphocytes (%) (Auto) 21.2 % (20.0-45.0) Monocytes (%) (Auto) 7.4 % (1.0-10.0) Eosinophils (%) (Auto) 8.0 % (0.0-3.0) H Basophils (%) (Auto) 1.0 % (0.0-2.0) Sodium Level 144 MMOL/L (136-145) Potassium Level 3.5 MMOL/L (3.5-5.1) Chloride Level 108 MMOL/L (98-107) H Carbon Dioxide Level 33 MMOL/L (21-32) H Anion Gap 3 mmol/L (5-15) L Blood Urea Nitrogen 17 mg/dL (7-18) Creatinine 0.9 MG/DL (0.55-1.30) Estimat Glomerular Filtration Rate > 60 mL/min (>60) Glucose Level 111 MG/DL (74-106) H Calcium Level 8.4 MG/DL (8.5-10.1) L Current Medications Medications (Trade) Dose Ordered Sig/Kike Route PRN Reason Start Time Stop Time Status Last Admin Dose Admin Acetaminophen (Tylenol) 650 mg Q4H PRN ORAL fever 09/09/19 04:30 10/07/19 04:29 Amlodipine Besylate (Norvasc) 2.5 mg BID ORAL 09/13/19 18:00 10/07/19 08:59 09/15/19 17:15 Cefepime HCl 1 gm/ Dextrose 55 ml @ 110 mls/hr Q24H IV 09/10/19 09:00 09/17/19 08:59 09/15/19 08:25 Heparin Sodium (Porcine) (Heparin 5000 units/ml) 5,000 units EVERY 12 HOURS SUBQ 09/09/19 09:00 10/22/19 08:59 09/15/19 20:31 Levothyroxine Sodium (Synthroid) 75 mcg DAILY@0630 ORAL 09/12/19 06:30 10/07/19 08:29 09/16/19 05:43 Mirtazapine (Remeron) 7.5 mg BEDTIME ORAL 09/09/19 21:00 12/06/19 20:59 09/15/19 20:30 Nitroglycerin (Ntg) 0.4 mg Q5M PRN SL Prn Chest Pain 09/09/19 04:30 10/07/19 04:29 Ondansetron HCl (Zofran) 4 mg Q6H PRN IVP Nausea & Vomiting 09/09/19 04:30 10/07/19 04:29 Pantoprazole (Protonix) 40 mg Q12HR IVP 09/11/19 21:00 10/10/19 08:59 09/15/19 20:30 Polyethylene Glycol (Miralax) 17 gm DAILYPRN PRN ORAL Constipation 09/09/19 04:30 10/07/19 04:29 Promethazine HCl/ Codeine (Phenergan with Codeine) 5 ml Q4H PRN ORAL For Cough 09/09/19 04:30 10/07/19 04:29 Quetiapine Fumarate (SEROqueL) 25 mg Q8H PRN NG Agitation 09/15/19 13:15 10/30/19 13:14 Marcelina Matias MD Sep 16, 2019 08:41
[2019-09-16] MEDS: Cefepime HCl 1 GM in D5W 55 ML IV SCH (09:25)
[2019-09-16] MEDS: Pantoprazole Inj IVP SCH ×2 (09:25→20:42)
[2019-09-16] MEDS: Heparin 5000 units/ml inj SUBQ SCH ×2 (09:27→20:43)
--- NOTE | 2019-09-16 11:19 | Pulmonolgy Critical Care Note ---
Critical Care - Asmt/Plan Problems: (1) Acute respiratory failure (2) Suspected COVID-19 virus infection (3) Nosocomial pneumonia (4) Sepsis (5) Diabetes mellitus (6) At high risk for aspiration (7) Severe malnutrition (8) Feeding by G-tube (9) Squamous cell esophageal cancer (10) Alzheimer's dementia (11) History of CVA (cerebrovascular accident) Respiratory: monitor respiratory rate, adjust FIO2, CXR Cardiac: continue pressors, continue to monitor HR/BP Renal: F/U I&O Infectious Disease: check cultures Gastrointestinal: continue feedings/current rate Endocrine: monitor blood sugar Neurologic: PRN Ativan Prophylaxis: Protonix 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 Discussed with: nurses, consultants, case workermedical case manager - Objective Last 24 Hour Vital Signs Date Time Temp Pulse Resp B/P (MAP) Pulse Ox O2 Delivery O2 Flow Rate FiO2 09/16/19 11:00 72 21 188/81 (116) 98 09/16/19 10:00 62 15 159/55 (89) 100 09/16/19 09:25 70 150/63 09/16/19 09:00 60 14 150/63 (92) 100 09/16/19 08:30 60 14 40 09/16/19 08:00 40 09/16/19 08:00 98.5 57 15 150/59 (89) 100 09/16/19 08:00 Mechanical Ventilator 09/16/19 07:00 55 16 157/56 (89) 100 09/16/19 06:50 73 16 40 09/16/19 06:30 57 16 09/16/19 06:00 57 16 148/63 (91) 100 09/16/19 05:20 60 16 40 09/16/19 05:00 56 16 144/53 (83) 100 09/16/19 04:00 40 09/16/19 04:00 98.1 57 16 161/64 (96) 100 09/16/19 04:00 Mechanical Ventilator 09/16/19 03:33 58 09/16/19 03:31 57 16 40 09/16/19 03:00 56 14 138/57 (84) 95 09/16/19 02:00 63 16 170/58 (95) 100 09/16/19 01:23 58 14 40 09/16/19 01:00 57 15 163/48 (86) 100 09/16/19 00:00 98.4 57 15 142/53 (82) 100 09/16/19 00:00 40 09/16/19 00:00 Mechanical Ventilator 09/15/19 23:38 57 09/15/19 23:19 56 14 40 09/15/19 23:00 55 14 137/52 (80) 100 09/15/19 22:00 54 14 126/47 (73) 89 09/15/19 21:30 52 14 40 09/15/19 21:00 55 14 147/57 (87) 100 09/15/19 20:00 Mechanical Ventilator 09/15/19 20:00 60 17 154/56 (88) 100 09/15/19 20:00 60 09/15/19 20:00 40 09/15/19 19:48 56 15 40 09/15/19 19:00 59 18 156/52 (86) 100 09/15/19 18:00 55 14 146/61 (89) 100 09/15/19 17:15 60 163/88 09/15/19 17:01 62 16 40 09/15/19 17:00 56 14 123/46 (71) 100 09/15/19 16:00 97.5 58 14 138/51 (80) 100 09/15/19 16:00 58 14 138/51 (80) 100 09/15/19 16:00 Mechanical Ventilator 09/15/19 16:00 60 09/15/19 16:00 40 09/15/19 15:00 61 15 124/62 (82) 100 09/15/19 15:00 57 14 40 09/15/19 14:00 58 14 131/48 (75) 100 09/15/19 13:19 62 15 40 09/15/19 13:00 62 19 160/51 (87) 100 09/15/19 12:00 57 09/15/19 12:00 40 09/15/19 12:00 Mechanical Ventilator 09/15/19 12:00 97.7 63 14 138/71 (93) 100 Status: awake Condition: critical HEENT: atraumatic Neck: full ROM Heart: HR/BP stable Extremities: no C/C/E Critical Care - Subjective ROS Limited/Unobtainable: Yes Condition: critical EKG Rhythm: Sinus Rhythm FI02: 40 Vent Support Breath Rate: 14 Vent Support Mode: AC Vent Tidal Volume: 550 Sputum Amount: Small PEEP: 5.0 PIP: 29 Tube Feeding Amount: 60 I&O: Intake and Output 09/15/19 09/16/19 19:00 07:00 Intake Total 755 ml 860 ml Output Total 655 ml 640 ml Balance 100 ml 220 ml Intake Free Water 100 ml IV Total 55 ml Tube Feeding 600 ml 720 ml Other 140 ml Output Urine Total 655 ml 640 ml # Bowel Movements 2 CXR: worsening infiltrate and effusion at right chest ET-Tube: 7.5 ET Position: 23 Labs: Laboratory Tests Test 09/16/19 03:30 White Blood Count 6.0 K/UL (4.8-10.8) Red Blood Count 3.41 M/UL (4.70-6.10) L Hemoglobin 9.0 G/DL (14.2-18.0) L Hematocrit 28.2 % (42.0-52.0) L Mean Corpuscular Volume 83 FL (80-99) Mean Corpuscular Hemoglobin 26.6 PG (27.0-31.0) L Mean Corpuscular Hemoglobin Concent 32.0 G/DL (32.0-36.0) Red Cell Distribution Width 18.9 % (11.6-14.8) H Platelet Count 315 K/UL (150-450) Mean Platelet Volume 5.6 FL (6.5-10.1) L Neutrophils (%) (Auto) 62.3 % (45.0-75.0) Lymphocytes (%) (Auto) 21.2 % (20.0-45.0) Monocytes (%) (Auto) 7.4 % (1.0-10.0) Eosinophils (%) (Auto) 8.0 % (0.0-3.0) H Basophils (%) (Auto) 1.0 % (0.0-2.0) Sodium Level 144 MMOL/L (136-145) Potassium Level 3.5 MMOL/L (3.5-5.1) Chloride Level 108 MMOL/L (98-107) H Carbon Dioxide Level 33 MMOL/L (21-32) H Anion Gap 3 mmol/L (5-15) L Blood Urea Nitrogen 17 mg/dL (7-18) Creatinine 0.9 MG/DL (0.55-1.30) Estimat Glomerular Filtration Rate > 60 mL/min (>60) Glucose Level 111 MG/DL (74-106) H Calcium Level 8.4 MG/DL (8.5-10.1) L Vania Hui MD Sep 16, 2019 11:19
--- NOTE | 2019-09-16 11:33 | Nephrology Progress Note ---
Assessment/Plan Problem List: (1) RAMAN (acute kidney injury) Assessment: Serum creatinine normalized with hydration (2) Dehydration (3) Suspected COVID-19 virus infection (4) Anemia (5) Sepsis (6) Diabetes mellitus (7) Hypothyroidism Assessment - Acute renal failure - Severe anemia - Sepsis, pneumonia, acute respiratory failure, suspected: Viewed 19 virus infection - Diabetes mellitus - Hypothyroidism - Feeding by G-tube - Squamous cell esophageal cancer - History of CVA (cerebrovascular accident) Plan Plan: Failing weaning from ventilator Changes Seroquel to as needed due to bradycardia Discontinue IV fluid Monitor renal parameters, serum creatinine Adjust electrolytes with supplements Increase Synthroid dose Avoid nephrotoxic's as possible Ventilator management Urine studies Per orders Subjective ROS Limited/Unobtainable: Yes Objective Objective Last 24 Hour Vital Signs Date Time Temp Pulse Resp B/P (MAP) Pulse Ox O2 Delivery O2 Flow Rate FiO2 09/16/19 11:05 100 09/16/19 11:00 72 21 188/81 (116) 98 09/16/19 10:00 62 15 159/55 (89) 100 09/16/19 09:25 70 150/63 09/16/19 09:00 60 14 150/63 (92) 100 09/16/19 08:30 60 14 40 09/16/19 08:00 40 09/16/19 08:00 98.5 57 15 150/59 (89) 100 09/16/19 08:00 Mechanical Ventilator 09/16/19 07:00 55 16 157/56 (89) 100 09/16/19 06:50 73 16 40 09/16/19 06:30 57 16 09/16/19 06:00 57 16 148/63 (91) 100 09/16/19 05:20 60 16 40 09/16/19 05:00 56 16 144/53 (83) 100 09/16/19 04:00 40 09/16/19 04:00 98.1 57 16 161/64 (96) 100 09/16/19 04:00 Mechanical Ventilator 09/16/19 03:33 58 09/16/19 03:31 57 16 40 09/16/19 03:00 56 14 138/57 (84) 95 09/16/19 02:00 63 16 170/58 (95) 100 09/16/19 01:23 58 14 40 09/16/19 01:00 57 15 163/48 (86) 100 09/16/19 00:00 98.4 57 15 142/53 (82) 100 09/16/19 00:00 40 09/16/19 00:00 Mechanical Ventilator 09/15/19 23:38 57 09/15/19 23:19 56 14 40 09/15/19 23:00 55 14 137/52 (80) 100 09/15/19 22:00 54 14 126/47 (73) 89 09/15/19 21:30 52 14 40 09/15/19 21:00 55 14 147/57 (87) 100 09/15/19 20:00 Mechanical Ventilator 09/15/19 20:00 60 17 154/56 (88) 100 09/15/19 20:00 60 09/15/19 20:00 40 09/15/19 19:48 56 15 40 09/15/19 19:00 59 18 156/52 (86) 100 09/15/19 18:00 55 14 146/61 (89) 100 09/15/19 17:15 60 163/88 09/15/19 17:01 62 16 40 09/15/19 17:00 56 14 123/46 (71) 100 09/15/19 16:00 97.5 58 14 138/51 (80) 100 09/15/19 16:00 58 14 138/51 (80) 100 09/15/19 16:00 Mechanical Ventilator 09/15/19 16:00 60 09/15/19 16:00 40 09/15/19 15:00 61 15 124/62 (82) 100 09/15/19 15:00 57 14 40 09/15/19 14:00 58 14 131/48 (75) 100 09/15/19 13:19 62 15 40 09/15/19 13:00 62 19 160/51 (87) 100 09/15/19 12:00 57 09/15/19 12:00 40 09/15/19 12:00 Mechanical Ventilator 09/15/19 12:00 97.7 63 14 138/71 (93) 100 Intake and Output 09/15/19 09/16/19 19:00 07:00 Intake Total 755 ml 860 ml Output Total 655 ml 640 ml Balance 100 ml 220 ml Intake Free Water 100 ml IV Total 55 ml Tube Feeding 600 ml 720 ml Other 140 ml Output Urine Total 655 ml 640 ml # Bowel Movements 2 Laboratory Tests 09/16/19 03:30: White Blood Count 6.0, Red Blood Count 3.41L, Hemoglobin 9.0L, Hematocrit 28.2L , Mean Corpuscular Volume 83, Mean Corpuscular Hemoglobin 26.6L, Mean Corpuscular Hemoglobin Concent 32.0, Red Cell Distribution Width 18.9H, Platelet Count 315, Mean Platelet Volume 5.6L, Neutrophils (%) (Auto) 62.3, Lymphocytes (%) (Auto) 21.2, Monocytes (%) (Auto) 7.4, Eosinophils (%) (Auto) 8.0H, Basophils (%) (Auto) 1.0, Sodium Level 144, Potassium Level 3.5, Chloride Level 108H, Carbon Dioxide Level 33H, Anion Gap 3L, Blood Urea Nitrogen 17, Creatinine 0.9, Estimat Glomerular Filtration Rate > 60, Glucose Level 111H, Calcium Level 8.4L Height (Feet): 5 Height (Inches): 11.00 Weight (Pounds): 156 General Appearance: no apparent distress EENT: other - Remains intubated and vented Cardiovascular: normal rate Respiratory/Chest: decreased breath sounds Clovis Benites MD Sep 16, 2019 11:33
--- NOTE | 2019-09-16 16:37 | Surgery Progress Note ---
Surgery Progress Note Subjective Additional Comments only lasted 5 minutes on vent wean labs noted exam otherwise stable Objective Last 24 Hour Vital Signs Date Time Temp Pulse Resp B/P (MAP) Pulse Ox O2 Delivery O2 Flow Rate FiO2 09/16/19 16:00 58 09/16/19 16:00 63 14 114/52 (72) 100 09/16/19 16:00 40 09/16/19 15:00 57 14 113/56 (75) 100 09/16/19 14:00 59 14 132/52 (78) 100 09/16/19 13:17 61 14 40 09/16/19 13:00 59 15 128/48 (74) 97 09/16/19 12:00 64 09/16/19 12:00 Mechanical Ventilator 09/16/19 12:00 97.9 62 17 147/71 (96) 100 09/16/19 12:00 40 09/16/19 11:05 100 09/16/19 11:05 63 14 40 09/16/19 11:00 72 21 188/81 (116) 98 09/16/19 10:00 62 15 159/55 (89) 100 09/16/19 09:25 70 150/63 09/16/19 09:00 60 14 150/63 (92) 100 09/16/19 08:30 60 14 40 09/16/19 08:00 40 09/16/19 08:00 98.5 57 15 150/59 (89) 100 09/16/19 08:00 67 09/16/19 08:00 Mechanical Ventilator 09/16/19 07:00 55 16 157/56 (89) 100 09/16/19 06:50 73 16 40 09/16/19 06:30 57 16 09/16/19 06:00 57 16 148/63 (91) 100 09/16/19 05:20 60 16 40 09/16/19 05:00 56 16 144/53 (83) 100 09/16/19 04:00 40 09/16/19 04:00 98.1 57 16 161/64 (96) 100 09/16/19 04:00 Mechanical Ventilator 09/16/19 03:33 58 09/16/19 03:31 57 16 40 09/16/19 03:00 56 14 138/57 (84) 95 09/16/19 02:00 63 16 170/58 (95) 100 09/16/19 01:23 58 14 40 09/16/19 01:00 57 15 163/48 (86) 100 09/16/19 00:00 98.4 57 15 142/53 (82) 100 09/16/19 00:00 40 09/16/19 00:00 Mechanical Ventilator 09/15/19 23:38 57 09/15/19 23:19 56 14 40 09/15/19 23:00 55 14 137/52 (80) 100 09/15/19 22:00 54 14 126/47 (73) 89 09/15/19 21:30 52 14 40 09/15/19 21:00 55 14 147/57 (87) 100 09/15/19 20:00 Mechanical Ventilator 09/15/19 20:00 60 17 154/56 (88) 100 09/15/19 20:00 60 09/15/19 20:00 40 09/15/19 19:48 56 15 40 09/15/19 19:00 59 18 156/52 (86) 100 09/15/19 18:00 55 14 146/61 (89) 100 09/15/19 17:15 60 163/88 09/15/19 17:01 62 16 40 09/15/19 17:00 56 14 123/46 (71) 100 I&O Intake and Output 09/15/19 09/16/19 19:00 07:00 Intake Total 755 ml 860 ml Output Total 655 ml 640 ml Balance 100 ml 220 ml Intake Free Water 100 ml IV Total 55 ml Tube Feeding 600 ml 720 ml Other 140 ml Output Urine Total 655 ml 640 ml # Bowel Movements 2 Dressing: other Wound: other Drains: other Cardiovascular: RSR Respiratory: decreased breath sounds Abdomen: soft, non-tender, present bowel sounds Extremities: no tenderness, no cyanosis, other Laboratory Tests Test 09/16/19 03:30 White Blood Count 6.0 K/UL (4.8-10.8) Red Blood Count 3.41 M/UL (4.70-6.10) L Hemoglobin 9.0 G/DL (14.2-18.0) L Hematocrit 28.2 % (42.0-52.0) L Mean Corpuscular Volume 83 FL (80-99) Mean Corpuscular Hemoglobin 26.6 PG (27.0-31.0) L Mean Corpuscular Hemoglobin Concent 32.0 G/DL (32.0-36.0) Red Cell Distribution Width 18.9 % (11.6-14.8) H Platelet Count 315 K/UL (150-450) Mean Platelet Volume 5.6 FL (6.5-10.1) L Neutrophils (%) (Auto) 62.3 % (45.0-75.0) Lymphocytes (%) (Auto) 21.2 % (20.0-45.0) Monocytes (%) (Auto) 7.4 % (1.0-10.0) Eosinophils (%) (Auto) 8.0 % (0.0-3.0) H Basophils (%) (Auto) 1.0 % (0.0-2.0) Sodium Level 144 MMOL/L (136-145) Potassium Level 3.5 MMOL/L (3.5-5.1) Chloride Level 108 MMOL/L (98-107) H Carbon Dioxide Level 33 MMOL/L (21-32) H Anion Gap 3 mmol/L (5-15) L Blood Urea Nitrogen 17 mg/dL (7-18) Creatinine 0.9 MG/DL (0.55-1.30) Estimat Glomerular Filtration Rate > 60 mL/min (>60) Glucose Level 111 MG/DL (74-106) H Calcium Level 8.4 MG/DL (8.5-10.1) L Plan Problems: (1) UTI (urinary tract infection) (2) Acute respiratory failure Assessment & Plan: There is infiltrate suspected in the right perihilar region obscuring the right hilum. There is a hazy opacity that may partially be accounted for by pleural fluid on the right. Reticular densities are present on the left in the perihilar aspect of the lung. Endotracheal tube is in good position just above the anselmo. Heart size is normal. IMPRESSION: Suspected perihilar airspace disease in the right lung suspicious for pneumonia. Reticular nodular infiltrate in the left lung noted also. Right pleural effusion suspected. Endotracheal tube in good position cont vents support (3) Sepsis Assessment & Plan: Pt cachetic and presented on admission with multiple pressure injuries. Partial thickness pressure injury Cleft of L ear(L)1.2cm x (W)0.4cm. Base of wound moist and viable with small amt sanguineous exudate. Partial thickness pressure injury cleft of R ear(L)0.5cm x (W)0.7cm. Base of wound moist and viable Periwound erythematous.Small amt sanguineous exudate noted. Sacral DTPI(L)5cm x (W)10.5cm. Base of injury is purple with maroon borders. Coccygeal bony protrusion with darker skin tone, and small opening noted to R gluteus (L)0.5cm x (W)0.5cm within base of injury. No further skin breakdown periwound. Intact blood blister noted to R 1st metatarsal head(L)1.1cm x (W)2.5cm. DTPI noted to L heel extending into plantar aspect. Base of injury presents as an intact blood filled blister. Periwound is boggy with non-blanching erythema. R heel is boggy but blanchable. wounds unlikely etiology of sepsis respiratory but given current condition high risk for breakdown and worsening will monitor closely discussed with RN and staff great care being provided Tx.Plan: Apply Betadine to clefts of R and L ears. Pad oxygen tubing with gauze and keep oxygen tubing loose. Apply Moisture Barrier Paste to Sacrum. Cover with Optifoam drsg. Change every 3 days and prn. Apply Betadine to L heel. Cover with Optifoam drsg. Change every 3 days and prn. Apply Betadine to R 1st metatarsal head. Cover with Optifoam drsg. Change every 3 days and prn. Apply Cavilon Skin Barrier R heel. Cover with Optifoam drsg. Change every 7 days and prn. Reposition at least every 2hours or as tolerated. Off-load heels with pillow. (4) Severe anemia (5) Nosocomial pneumonia (6) Atrial fibrillation (7) Acute metabolic encephalopathy (8) History of CVA (cerebrovascular accident) (9) Diabetes mellitus (10) Hypothyroidism (11) Alzheimer's dementia (12) PVC (premature ventricular contraction) (13) Hypertension (14) Squamous cell esophageal cancer (15) Feeding by G-tube (16) Dehydration (17) Anemia (18) Severe malnutrition Assessment & Plan: Pt cachetic and presented on admission with multiple pressure injuries. Partial thickness pressure injury Cleft of L ear(L)1.2cm x (W )0.4cm. Base of wound moist and viable with small amt sanguineous exudate. Partial thickness pressure injury cleft of R ear(L)0.5cm x (W)0.7cm. Base of wound moist and viable Periwound erythematous.Small amt sanguineous exudate noted. Sacral DTPI(L)5cm x (W)10.5cm. Base of injury is purple with maroon borders. Coccygeal bony protrusion with darker skin tone, and small opening noted to R gluteus (L)0.5cm x (W)0.5cm within base of injury. No further skin breakdown periwound. Intact blood blister noted to R 1st metatarsal head(L)1.1cm x (W)2.5cm. DTPI noted to L heel extending into plantar aspect. Base of injury presents as an intact blood filled blister. Periwound is boggy with non-blanching erythema. R heel is boggy but blanchable. Tx.Plan: Apply Betadine to clefts of R and L ears. Pad oxygen tubing with gauze and keep oxygen tubing loose. Apply Moisture Barrier Paste to Sacrum. Cover with Optifoam drsg. Change every 3 days and prn. Apply Betadine to L heel. Cover with Optifoam drsg. Change every 3 days and prn. Apply Betadine to R 1st metatarsal head. Cover with Optifoam drsg. Change every 3 days and prn. Apply Cavilon Skin Barrier R heel. Cover with Optifoam drsg. Change every 7 days and prn. Reposition at least every 2hours or as tolerated. Off-load heels with pillow. (19) Encounter for PEG (percutaneous endoscopic gastrostomy) (20) At high risk for aspiration (21) Pleural effusion (22) Suspected COVID-19 virus infection Jan Mora Sep 16, 2019 16:37
--- NOTE | 2019-09-16 22:44 | Internal Med Progress Note ---
Subjective Physician Name Lamont Hayes Attending Physician Lamont Hayes MD Current Medications Medications (Trade) Dose Ordered Sig/Kike Route PRN Reason Start Time Stop Time Status Last Admin Dose Admin Acetaminophen (Tylenol) 650 mg Q4H PRN ORAL fever 09/09/19 04:30 10/07/19 04:29 Amlodipine Besylate (Norvasc) 5 mg BID ORAL 09/16/19 18:00 10/07/19 08:59 09/16/19 17:43 Cefepime HCl 1 gm/ Dextrose 55 ml @ 110 mls/hr Q24H IV 09/10/19 09:00 09/17/19 08:59 09/16/19 09:25 Heparin Sodium (Porcine) (Heparin 5000 units/ml) 5,000 units EVERY 12 HOURS SUBQ 09/09/19 09:00 10/22/19 08:59 09/16/19 20:43 Hydralazine HCl (Apresoline) 10 mg Q4H PRN IV sbp more than 160 09/16/19 11:16 12/15/19 11:15 Levothyroxine Sodium (Synthroid) 75 mcg DAILY@0630 ORAL 09/12/19 06:30 10/07/19 08:29 09/16/19 05:43 Mirtazapine (Remeron) 7.5 mg BEDTIME ORAL 09/09/19 21:00 12/06/19 20:59 09/16/19 20:42 Nitroglycerin (Ntg) 0.4 mg Q5M PRN SL Prn Chest Pain 09/09/19 04:30 10/07/19 04:29 Ondansetron HCl (Zofran) 4 mg Q6H PRN IVP Nausea & Vomiting 09/09/19 04:30 10/07/19 04:29 Pantoprazole (Protonix) 40 mg Q12HR IVP 09/11/19 21:00 10/10/19 08:59 09/16/19 20:42 Polyethylene Glycol (Miralax) 17 gm DAILYPRN PRN ORAL Constipation 09/09/19 04:30 10/07/19 04:29 Promethazine HCl/ Codeine (Phenergan with Codeine) 5 ml Q4H PRN ORAL For Cough 09/09/19 04:30 10/07/19 04:29 Quetiapine Fumarate (SEROqueL) 25 mg Q8H PRN NG Agitation 09/15/19 13:15 10/30/19 13:14 Allergies: Coded Allergies: PENICILLINS (Verified Allergy, Unknown, 10/27/18) tolretas cephalosporins Subjective Intubated on vent, not responsive, Hgb: 9.0 Objective Last Vital Signs Date Time Temp Pulse Resp B/P (MAP) Pulse Ox O2 Delivery O2 Flow Rate FiO2 09/16/19 21:17 58 16 158/77 (104) 100 09/16/19 20:00 98.1 09/16/19 20:00 40 09/16/19 20:00 Mechanical Ventilator 09/08/19 21:00 2.0 Laboratory Tests Test 09/16/19 03:30 White Blood Count 6.0 K/UL (4.8-10.8) Red Blood Count 3.41 M/UL (4.70-6.10) L Hemoglobin 9.0 G/DL (14.2-18.0) L Hematocrit 28.2 % (42.0-52.0) L Mean Corpuscular Volume 83 FL (80-99) Mean Corpuscular Hemoglobin 26.6 PG (27.0-31.0) L Mean Corpuscular Hemoglobin Concent 32.0 G/DL (32.0-36.0) Red Cell Distribution Width 18.9 % (11.6-14.8) H Platelet Count 315 K/UL (150-450) Mean Platelet Volume 5.6 FL (6.5-10.1) L Neutrophils (%) (Auto) 62.3 % (45.0-75.0) Lymphocytes (%) (Auto) 21.2 % (20.0-45.0) Monocytes (%) (Auto) 7.4 % (1.0-10.0) Eosinophils (%) (Auto) 8.0 % (0.0-3.0) H Basophils (%) (Auto) 1.0 % (0.0-2.0) Sodium Level 144 MMOL/L (136-145) Potassium Level 3.5 MMOL/L (3.5-5.1) Chloride Level 108 MMOL/L (98-107) H Carbon Dioxide Level 33 MMOL/L (21-32) H Anion Gap 3 mmol/L (5-15) L Blood Urea Nitrogen 17 mg/dL (7-18) Creatinine 0.9 MG/DL (0.55-1.30) Estimat Glomerular Filtration Rate > 60 mL/min (>60) Glucose Level 111 MG/DL (74-106) H Calcium Level 8.4 MG/DL (8.5-10.1) L Intake and Output 09/15/19 09/16/19 19:00 07:00 Intake Total 755 ml 860 ml Output Total 655 ml 640 ml Balance 100 ml 220 ml Intake Free Water 100 ml IV Total 55 ml Tube Feeding 600 ml 720 ml Other 140 ml Output Urine Total 655 ml 640 ml # Bowel Movements 2 Objective General: Intubated, not responsive, on Vent. HEENT: NCAT, sclera anicteric, PERRL, ET Tube. Neck: Supple, no significant jugular venous distention, Lungs: Mechanical Breath sound, decrease air at bases, no Wheeze or Rales. Heart: Regular rate and rhythm, normal S1/S2, no murmurs/gallops Abdomen: soft, nontender, nondistended. Normoactive bowel sounds, + PEG : Muniz cath. Extremities: No Cyanosis , clubbing or edema. Neuro: Able to move all extremities slowly. Skin: warm, no rash. Assessment/Plan Assessment/Plan ASSESSMENT: This is an 84-year-old male with: 1. Acute respiratory failure with GNB right pneumonia. 2. Urinary tract infection. 3. Right pleural effusion. 4. Esophageal mass. 5. Dysphagia. 6. Diabetes. 7. Alzheimer's dementia. 8. Cerebrovascular disease. 9. Hypothyroidism. 10. Seizure disorder. 11. Iron deficiency anemia. 12. sepsis. TREATMENT: 1. Right side Pneumonia. Chest x-ray revealed right pleural effusion and possible pneumonia. Influenza negative. A Pulmonary consultation has been obtained with Dr. Vania Hui. The patient underwent thoracentesis during previous hospitalization. We will follow recommendation of Pulmonary. Abx: cefepime IV per ID=Dr Matias 2. Urinary tract infection. 3. Right pleural effusion. As above, a Pulmonary consultation has been obtained with Dr. Vania Hui. The patient may require thoracentesis during this hospitalization. 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 A Gastroenterology consultation has been obtained with Dr. Darrick Rosario. 5. Dysphagia. The patient is status post PEG placement on 08/08/2019 at [facility] by Dr. Darrick Rosario. 6. Diabetes type 2. A NovoLog sliding scale has been instituted. 7. Alzheimer's dementia. 8. Cerebrovascular disease, status post cerebrovascular accident. 9. Hypothyroidism. Continue levothyroxine as above. 10. Seizure disorder. 11. Iron deficiency anemia. Lamont Hayes MD Sep 16, 2019 22:44
[2019-09-17] VITALS (25 sets, daily range): BP systolic 101–185; BP diastolic 52–78
[2019-09-17 06:49] LABS: EOSINOPHILS % (AUTO) 6.7 % (0.0-3.0); HEMOGLOBIN 9.3 G/DL (14.2-18.0); LYMPHOCYTES % (AUTO) 27.1 % (20.0-45.0); MEAN CORPUSCULAR VOLUME 83 FL (80-99); MONOCYTES % (AUTO) 6.9 % (1.0-10.0); NEUTROPHILS % (AUTO) 58.2 % (45.0-75.0); PLATELET COUNT 379 K/UL (150-450); RED BLOOD COUNT 3.49 M/UL (4.70-6.10); WHITE BLOOD COUNT 5.9 K/UL (4.8-10.8)
[2019-09-17 06:58] LABS: ANION GAP 7 mmol/L (5-15); BLOOD UREA NITROGEN 19 mg/dL (7-18); CALCIUM 8.9 MG/DL (8.5-10.1); CARBON DIOXIDE 30 MMOL/L (21-32); CHLORIDE 107 MMOL/L (98-107); CREATININE 0.9 MG/DL (0.55-1.30); POTASSIUM 3.6 MMOL/L (3.5-5.1); SODIUM 144 MMOL/L (136-145)
[2019-09-17] MEDS ORDERED: LORazepam Inj 2mg/ml 1ml IV PRN (07:45)
[2019-09-17] MEDS ORDERED: Albuterol/Ipratropium 3ml neb HHN PRN (08:30)
--- NOTE | 2019-09-17 08:34 | Pulmonolgy Critical Care Note ---
Critical Care - Asmt/Plan Assessment/Plan: ASSESSMENT Sepsis Acute respiratory failure requiring intubation Pseudomonas and Proteus pneumonia Acute kidney injury resolved secondary to dehydration Suspected COVID 19 infection -ruled out x 2 Hypothyroidism with elevated TSH Severe anemia Transaminitis Dysphagia, feeding by G-tube Diabetes mellitus Severe protein calorie malnutrition Multiply pressure injury, present on admission Seizure disorder PLAN of CARE ICU vent support, pulmonary toilet failing weaning so far fup with CXR and ABG may need trach abx as per ID COVID 19 x 2 by PCR -NG; off isolation influenza screen NGT BCX NGT SCX + Pseudomonas, Proteus UCX + Abi , likely colonization aspiration precautions, GTF , protein supplements as per RD monitor H&H with goal to keep Hgb above 7 BS management trend LFT wound care as per surgeon recommendation Synthroid dose uptitrated supportive care case discussed and evaluated by supervising physician Critical Care - Objective Last 24 Hour Vital Signs Date Time Temp Pulse Resp B/P (MAP) Pulse Ox O2 Delivery O2 Flow Rate FiO2 09/17/19 07:15 63 18 40 09/17/19 07:00 62 19 164/69 (100) 100 09/17/19 06:13 64 20 09/17/19 06:00 65 14 147/57 (87) 100 09/17/19 05:50 55 14 40 09/17/19 05:30 61 14 145/57 (86) 100 09/17/19 05:00 69 26 172/67 (102) 99 09/17/19 04:00 40 09/17/19 04:00 98.6 66 23 173/78 (109) 98 09/17/19 04:00 Mechanical Ventilator 09/17/19 04:00 62 09/17/19 03:10 70 14 40 09/17/19 03:00 59 19 149/54 (85) 100 09/17/19 02:00 61 18 185/75 (111) 100 09/17/19 01:00 60 20 149/69 (95) 100 09/17/19 00:00 99.3 63 22 150/68 (95) 100 09/17/19 00:00 64 09/17/19 00:00 Mechanical Ventilator 09/16/19 23:00 58 14 96/47 (63) 100 09/16/19 22:43 63 14 40 09/16/19 22:00 61 14 132/62 (85) 100 09/16/19 21:17 58 16 158/77 (104) 100 09/16/19 21:00 61 17 135/46 (75) 100 09/16/19 20:00 98.1 59 16 142/56 (84) 100 09/16/19 20:00 54 09/16/19 20:00 40 09/16/19 20:00 Mechanical Ventilator 09/16/19 19:26 55 16 40 09/16/19 19:00 61 16 113/42 (65) 100 09/16/19 18:00 61 14 120/59 (79) 99 09/16/19 17:43 58 127/49 09/16/19 17:00 59 14 40 09/16/19 17:00 98.6 58 14 127/49 (75) 100 09/16/19 16:00 58 09/16/19 16:00 63 14 114/52 (72) 100 09/16/19 16:00 Mechanical Ventilator 09/16/19 16:00 40 09/16/19 15:20 60 14 40 09/16/19 15:00 57 14 113/56 (75) 100 09/16/19 14:00 59 14 132/52 (78) 100 09/16/19 13:17 61 14 40 09/16/19 13:00 59 15 128/48 (74) 97 09/16/19 12:00 64 09/16/19 12:00 Mechanical Ventilator 09/16/19 12:00 97.9 62 17 147/71 (96) 100 09/16/19 12:00 40 09/16/19 11:05 100 09/16/19 11:05 63 14 40 09/16/19 11:00 72 21 188/81 (116) 98 09/16/19 10:00 62 15 159/55 (89) 100 09/16/19 09:25 70 150/63 09/16/19 09:00 60 14 150/63 (92) 100 09/16/19 08:30 60 14 40 Status: somnolent Condition: critical HEENT: atraumatic, normocephalic, other - intubated , OP with ET in place, intact Lungs: other - overall clear Heart: HR/BP stable Abdomen: soft, active bowel sounds, other - G tube Extremities: no C/C/E Critical Care - Subjective ROS Limited/Unobtainable: Yes Interval Events: not tolerating weaning afebrile, no leukocytosis Condition: critical EKG Rhythm: Sinus Rhythm FI02: 40 Vent Support Breath Rate: 14 Vent Support Mode: AC Vent Tidal Volume: 550 Sputum Amount: Large PEEP: 5.0 PIP: 33 Tube Feeding Amount: 60 I&O: Intake and Output 09/16/19 09/17/19 19:00 07:00 Intake Total 840 ml 775 ml Output Total 580 ml 740 ml Balance 260 ml 35 ml Intake Free Water 120 ml 120 ml IV Total 55 ml Tube Feeding 720 ml 600 ml Output Urine Total 580 ml 740 ml CXR: CXR 09/14 Previously demonstrated bilateral pleural effusions are unchanged. Bilateral mostly perihilar interstitial and airspace infiltrates persist. Denser consolidation is seen in the right perihilar region and left retrocardiac region. Stable satisfactory position of endotracheal tube. Findings overall unchanged ET-Tube: 7.5 ET Position: 23 Miranda Pimentel [employer] Sep 17, 2019 08:34
[2019-09-17] MEDS: Heparin 5000 units/ml inj SUBQ SCH ×2 (09:18→20:44)
[2019-09-17] MEDS: Pantoprazole Inj IVP SCH ×2 (09:19→20:43)
--- NOTE | 2019-09-17 11:15 | Nephrology Progress Note ---
Assessment/Plan Problem List: (1) RAMAN (acute kidney injury) Assessment: Serum creatinine normalized with hydration (2) Dehydration (3) Suspected COVID-19 virus infection (4) Anemia (5) Sepsis (6) Diabetes mellitus (7) Hypothyroidism Assessment - Acute renal failure - Severe anemia - Sepsis, pneumonia, acute respiratory failure, suspected: Viewed 19 virus infection - Diabetes mellitus - Hypothyroidism - Feeding by G-tube - Squamous cell esophageal cancer - History of CVA (cerebrovascular accident) Plan Failing weaning from ventilator Changes Seroquel to "as needed" due to bradycardia Discontinue IV fluid Monitor renal parameters, serum creatinine Adjust electrolytes with supplements Increase Synthroid dose Avoid nephrotoxic's as possible Ventilator management Urine studies Per orders Subjective ROS Limited/Unobtainable: Yes Objective Objective Last 24 Hour Vital Signs Date Time Temp Pulse Resp B/P (MAP) Pulse Ox O2 Delivery O2 Flow Rate FiO2 09/17/19 09:28 60 15 40 09/17/19 09:19 60 153/66 09/17/19 09:00 60 18 153/66 (95) 100 09/17/19 08:00 97.8 64 17 166/67 (100) 100 09/17/19 08:00 Mechanical Ventilator 09/17/19 08:00 40 09/17/19 07:15 63 18 40 09/17/19 07:00 62 19 164/69 (100) 100 09/17/19 06:13 64 20 09/17/19 06:00 65 14 147/57 (87) 100 09/17/19 05:50 55 14 40 09/17/19 05:30 61 14 145/57 (86) 100 09/17/19 05:00 69 26 172/67 (102) 99 09/17/19 04:00 40 09/17/19 04:00 98.6 66 23 173/78 (109) 98 09/17/19 04:00 Mechanical Ventilator 09/17/19 04:00 62 09/17/19 03:10 70 14 40 09/17/19 03:00 59 19 149/54 (85) 100 09/17/19 02:00 61 18 185/75 (111) 100 09/17/19 01:00 60 20 149/69 (95) 100 09/17/19 00:00 99.3 63 22 150/68 (95) 100 09/17/19 00:00 64 09/17/19 00:00 Mechanical Ventilator 09/16/19 23:00 58 14 96/47 (63) 100 09/16/19 22:43 63 14 40 09/16/19 22:00 61 14 132/62 (85) 100 09/16/19 21:17 58 16 158/77 (104) 100 09/16/19 21:00 61 17 135/46 (75) 100 09/16/19 20:00 98.1 59 16 142/56 (84) 100 09/16/19 20:00 54 09/16/19 20:00 40 09/16/19 20:00 Mechanical Ventilator 09/16/19 19:26 55 16 40 09/16/19 19:00 61 16 113/42 (65) 100 09/16/19 18:00 61 14 120/59 (79) 99 09/16/19 17:43 58 127/49 09/16/19 17:00 59 14 40 09/16/19 17:00 98.6 58 14 127/49 (75) 100 09/16/19 16:00 58 09/16/19 16:00 63 14 114/52 (72) 100 09/16/19 16:00 Mechanical Ventilator 09/16/19 16:00 40 09/16/19 15:20 60 14 40 09/16/19 15:00 57 14 113/56 (75) 100 09/16/19 14:00 59 14 132/52 (78) 100 09/16/19 13:17 61 14 40 09/16/19 13:00 59 15 128/48 (74) 97 09/16/19 12:00 64 09/16/19 12:00 Mechanical Ventilator 09/16/19 12:00 97.9 62 17 147/71 (96) 100 09/16/19 12:00 40 Intake and Output 09/16/19 09/17/19 19:00 07:00 Intake Total 840 ml 775 ml Output Total 580 ml 740 ml Balance 260 ml 35 ml Intake Free Water 120 ml 120 ml IV Total 55 ml Tube Feeding 720 ml 600 ml Output Urine Total 580 ml 740 ml Laboratory Tests 09/17/19 04:54: White Blood Count 5.9, Red Blood Count 3.49L, Hemoglobin 9.3L, Hematocrit 29.0L , Mean Corpuscular Volume 83, Mean Corpuscular Hemoglobin 26.5L, Mean Corpuscular Hemoglobin Concent 31.9L, Red Cell Distribution Width 19.0H, Platelet Count 379, Mean Platelet Volume 5.8L, Neutrophils (%) (Auto) 58.2, Lymphocytes (%) (Auto) 27.1, Monocytes (%) (Auto) 6.9, Eosinophils (%) (Auto) 6.7H, Basophils (%) (Auto) 1.0, Sodium Level 144, Potassium Level 3.6, Chloride Level 107, Carbon Dioxide Level 30, Anion Gap 7, Blood Urea Nitrogen 19H, Creatinine 0.9, Estimat Glomerular Filtration Rate > 60, Glucose Level 126H, Calcium Level 8.9 Height (Feet): 5 Height (Inches): 11.00 Weight (Pounds): 154 General Appearance: no apparent distress EENT: other - Remains intubated on ventilator Cardiovascular: normal rate Respiratory/Chest: decreased breath sounds Abdomen: distended Clovis Benites MD Sep 17, 2019 11:15
[2019-09-17] MEDS: Cefepime HCl 1 GM in D5W 55 ML IV SCH (11:43)
--- NOTE | 2019-09-17 13:31 | Internal Med Progress Note ---
Subjective Date of Service: Sep 17, 2019 Physician Name Bah,Xander Attending Physician Lamont Hayes MD Current Medications Medications (Trade) Dose Ordered Sig/Kike Route PRN Reason Start Time Stop Time Status Last Admin Dose Admin Acetaminophen (Tylenol) 650 mg Q4H PRN ORAL fever 09/09/19 04:30 10/07/19 04:29 Albuterol/ Ipratropium (Albuterol/ Ipratropium) 3 ml Q4H PRN HHN sob 09/17/19 08:30 09/22/19 08:29 Amlodipine Besylate (Norvasc) 5 mg BID ORAL 09/16/19 18:00 10/07/19 08:59 09/17/19 09:19 Cefepime HCl 1 gm/ Dextrose 55 ml @ 110 mls/hr Q24H IV 09/17/19 11:00 09/20/19 11:29 09/17/19 11:43 Heparin Sodium (Porcine) (Heparin 5000 units/ml) 5,000 units EVERY 12 HOURS SUBQ 09/09/19 09:00 10/22/19 08:59 09/17/19 09:18 Hydralazine HCl (Apresoline) 10 mg Q4H PRN IV sbp more than 160 09/16/19 11:16 12/15/19 11:15 Levothyroxine Sodium (Synthroid) 75 mcg DAILY@0630 ORAL 09/12/19 06:30 10/07/19 08:29 09/17/19 05:46 Lorazepam (Ativan 2mg/ml 1ml) 1 mg Q4H PRN IV For Anxiety 09/17/19 07:45 09/24/19 07:44 Mirtazapine (Remeron) 7.5 mg BEDTIME ORAL 09/09/19 21:00 12/06/19 20:59 09/16/19 20:42 Nitroglycerin (Ntg) 0.4 mg Q5M PRN SL Prn Chest Pain 09/09/19 04:30 10/07/19 04:29 Ondansetron HCl (Zofran) 4 mg Q6H PRN IVP Nausea & Vomiting 09/09/19 04:30 10/07/19 04:29 Pantoprazole (Protonix) 40 mg Q12HR IVP 09/11/19 21:00 10/10/19 08:59 09/17/19 09:19 Polyethylene Glycol (Miralax) 17 gm DAILYPRN PRN ORAL Constipation 09/09/19 04:30 10/07/19 04:29 Promethazine HCl/ Codeine (Phenergan with Codeine) 5 ml Q4H PRN ORAL For Cough 09/09/19 04:30 10/07/19 04:29 Quetiapine Fumarate (SEROqueL) 25 mg Q8H PRN NG Agitation 09/15/19 13:15 10/30/19 13:14 Allergies: Coded Allergies: PENICILLINS (Verified Allergy, Unknown, 10/27/18) tolretas cephalosporins ROS Limited/Unobtainable: Yes Subjective 84 YO M admitted with cough and congestion. Now right pleural effusion and pneumonia. Cover for Int Med-Dr Hayes. ICU. Intubated and sedated Objective Last Vital Signs Date Time Temp Pulse Resp B/P (MAP) Pulse Ox O2 Delivery O2 Flow Rate FiO2 09/17/19 13:09 60 16 40 09/17/19 13:00 136/57 (83) 100 09/17/19 12:00 Mechanical Ventilator 09/17/19 12:00 97.9 09/08/19 21:00 2.0 Laboratory Tests Test 09/17/19 04:54 White Blood Count 5.9 K/UL (4.8-10.8) Red Blood Count 3.49 M/UL (4.70-6.10) L Hemoglobin 9.3 G/DL (14.2-18.0) L Hematocrit 29.0 % (42.0-52.0) L Mean Corpuscular Volume 83 FL (80-99) Mean Corpuscular Hemoglobin 26.5 PG (27.0-31.0) L Mean Corpuscular Hemoglobin Concent 31.9 G/DL (32.0-36.0) L Red Cell Distribution Width 19.0 % (11.6-14.8) H Platelet Count 379 K/UL (150-450) Mean Platelet Volume 5.8 FL (6.5-10.1) L Neutrophils (%) (Auto) 58.2 % (45.0-75.0) Lymphocytes (%) (Auto) 27.1 % (20.0-45.0) Monocytes (%) (Auto) 6.9 % (1.0-10.0) Eosinophils (%) (Auto) 6.7 % (0.0-3.0) H Basophils (%) (Auto) 1.0 % (0.0-2.0) Sodium Level 144 MMOL/L (136-145) Potassium Level 3.6 MMOL/L (3.5-5.1) Chloride Level 107 MMOL/L (98-107) Carbon Dioxide Level 30 MMOL/L (21-32) Anion Gap 7 mmol/L (5-15) Blood Urea Nitrogen 19 mg/dL (7-18) H Creatinine 0.9 MG/DL (0.55-1.30) Estimat Glomerular Filtration Rate > 60 mL/min (>60) Glucose Level 126 MG/DL (74-106) H Calcium Level 8.9 MG/DL (8.5-10.1) Intake and Output 09/16/19 09/17/19 19:00 07:00 Intake Total 840 ml 775 ml Output Total 580 ml 740 ml Balance 260 ml 35 ml Intake Free Water 120 ml 120 ml IV Total 55 ml Tube Feeding 720 ml 600 ml Output Urine Total 580 ml 740 ml Objective PHYSICAL EXAMINATION: GENERAL: The patient is a thin-appearing male, in no apparent distress. HEENT: Eyes, pupils are equal and responsive to light and accommodation. Extraocular movements are intact. NECK: Supple without lymphadenopathy. CHEST: Mech vent; Lungs are clear to auscultation bilaterally with decreased breath sounds on the right. There are no wheezes appreciated. ABDOMEN: Soft, nontender, and nondistended. Positive bowel sounds. No evidence of hepatosplenomegaly. Currently, no rebound or guarding noted. EXTREMITIES: Negative for clubbing, cyanosis, or edema. RECTAL/GENITAL: Not performed. NEUROLOGIC: Cranial nerves II through XII are grossly intact without focal deficits. Assessment/Plan Assessment/Plan ASSESSMENT: This is an 84-year-old male with: 1. Possible right pneumonia=pseudamonas 2. Urinary tract infection=jennifer 3. Right pleural effusion. 4. Esophageal mass. 5. Dysphagia. 6. Diabetes. 7. Alzheimer's dementia. 8. Cerebrovascular disease. 9. Hypothyroidism. 10. Seizure disorder. 11. Iron deficiency anemia. TREATMENT: 1. Right perihilar Pneumonia/pleural effusion. COVID 19 and Influenza negative. A Pulmonary consultation has been obtained with Dr. Vania Hui. The patient underwent thoracentesis during previous hospitalization. We will follow recommendation of Pulmonary. Continue vanco and cefepime per ID=Dr Matias ABX= cefepime 2. Urinary tract infection. . A urine culture =jennifer 3. Right pleural effusion. As above, a Pulmonary consultation has been obtained with Dr. Vania Hui. The patient may require thoracentesis during this hospitalization. 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 A Gastroenterology consultation has been obtained with Dr. Darrick Rosario. 5. Dysphagia. The patient is status post PEG placement on 08/08/2019 at [facility] by Dr. Darrick Rosario. 6. Diabetes type 2. A NovoLog sliding scale has been instituted. 7. Alzheimer's dementia. 8. Cerebrovascular disease, status post cerebrovascular accident. 9. Hypothyroidism. Continue levothyroxine as above. 10. Seizure disorder. 11. Iron deficiency anemia. Xander Bah MD Sep 17, 2019 13:31
--- NOTE | 2019-09-17 19:49 | Surgery Progress Note ---
Surgery Progress Note Subjective Additional Comments ill appearing labs noted exam unchanged Objective Last 24 Hour Vital Signs Date Time Temp Pulse Resp B/P (MAP) Pulse Ox O2 Delivery O2 Flow Rate FiO2 09/17/19 19:04 67 17 40 09/17/19 18:12 60 162/63 09/17/19 18:00 70 16 162/63 (96) 100 09/17/19 17:09 73 21 40 09/17/19 17:00 62 16 149/55 (86) 100 09/17/19 16:00 61 16 152/75 (100) 100 09/17/19 16:00 40 09/17/19 16:00 Mechanical Ventilator 09/17/19 16:00 61 09/17/19 15:00 63 16 149/72 (97) 100 09/17/19 14:54 63 21 40 09/17/19 14:00 63 17 150/54 (86) 99 09/17/19 13:09 60 16 40 09/17/19 13:00 62 16 136/57 (83) 100 09/17/19 12:00 Mechanical Ventilator 09/17/19 12:00 62 09/17/19 12:00 97.9 58 16 139/56 (83) 100 09/17/19 12:00 40 09/17/19 11:11 57 15 40 09/17/19 11:00 60 16 151/61 (91) 100 09/17/19 10:00 59 17 136/57 (83) 100 09/17/19 09:28 60 15 40 09/17/19 09:19 60 153/66 09/17/19 09:00 60 18 153/66 (95) 100 09/17/19 08:00 97.8 64 17 166/67 (100) 100 09/17/19 08:00 Mechanical Ventilator 09/17/19 08:00 40 09/17/19 08:00 61 09/17/19 07:15 63 18 40 09/17/19 07:00 62 19 164/69 (100) 100 09/17/19 06:13 64 20 09/17/19 06:00 65 14 147/57 (87) 100 09/17/19 05:50 55 14 40 09/17/19 05:30 61 14 145/57 (86) 100 09/17/19 05:00 69 26 172/67 (102) 99 09/17/19 04:00 40 09/17/19 04:00 98.6 66 23 173/78 (109) 98 09/17/19 04:00 Mechanical Ventilator 09/17/19 04:00 62 09/17/19 03:10 70 14 40 09/17/19 03:00 59 19 149/54 (85) 100 09/17/19 02:00 61 18 185/75 (111) 100 09/17/19 01:00 60 20 149/69 (95) 100 09/17/19 00:00 99.3 63 22 150/68 (95) 100 09/17/19 00:00 64 09/17/19 00:00 Mechanical Ventilator 09/16/19 23:00 58 14 96/47 (63) 100 09/16/19 22:43 63 14 40 09/16/19 22:00 61 14 132/62 (85) 100 09/16/19 21:17 58 16 158/77 (104) 100 09/16/19 21:00 61 17 135/46 (75) 100 09/16/19 20:00 98.1 59 16 142/56 (84) 100 09/16/19 20:00 54 09/16/19 20:00 40 09/16/19 20:00 Mechanical Ventilator I&O Intake and Output 09/16/19 09/17/19 19:00 07:00 Intake Total 840 ml 775 ml Output Total 580 ml 740 ml Balance 260 ml 35 ml Intake Free Water 120 ml 120 ml IV Total 55 ml Tube Feeding 720 ml 600 ml Output Urine Total 580 ml 740 ml Dressing: other Wound: other Drains: other Cardiovascular: RSR Respiratory: decreased breath sounds Abdomen: soft, non-tender, present bowel sounds Extremities: no cyanosis Laboratory Tests Test 09/17/19 04:54 White Blood Count 5.9 K/UL (4.8-10.8) Red Blood Count 3.49 M/UL (4.70-6.10) L Hemoglobin 9.3 G/DL (14.2-18.0) L Hematocrit 29.0 % (42.0-52.0) L Mean Corpuscular Volume 83 FL (80-99) Mean Corpuscular Hemoglobin 26.5 PG (27.0-31.0) L Mean Corpuscular Hemoglobin Concent 31.9 G/DL (32.0-36.0) L Red Cell Distribution Width 19.0 % (11.6-14.8) H Platelet Count 379 K/UL (150-450) Mean Platelet Volume 5.8 FL (6.5-10.1) L Neutrophils (%) (Auto) 58.2 % (45.0-75.0) Lymphocytes (%) (Auto) 27.1 % (20.0-45.0) Monocytes (%) (Auto) 6.9 % (1.0-10.0) Eosinophils (%) (Auto) 6.7 % (0.0-3.0) H Basophils (%) (Auto) 1.0 % (0.0-2.0) Sodium Level 144 MMOL/L (136-145) Potassium Level 3.6 MMOL/L (3.5-5.1) Chloride Level 107 MMOL/L (98-107) Carbon Dioxide Level 30 MMOL/L (21-32) Anion Gap 7 mmol/L (5-15) Blood Urea Nitrogen 19 mg/dL (7-18) H Creatinine 0.9 MG/DL (0.55-1.30) Estimat Glomerular Filtration Rate > 60 mL/min (>60) Glucose Level 126 MG/DL (74-106) H Calcium Level 8.9 MG/DL (8.5-10.1) Plan Problems: (1) UTI (urinary tract infection) (2) Acute respiratory failure Assessment & Plan: There is infiltrate suspected in the right perihilar region obscuring the right hilum. There is a hazy opacity that may partially be accounted for by pleural fluid on the right. Reticular densities are present on the left in the perihilar aspect of the lung. Endotracheal tube is in good position just above the anselmo. Heart size is normal. IMPRESSION: Suspected perihilar airspace disease in the right lung suspicious for pneumonia. Reticular nodular infiltrate in the left lung noted also. Right pleural effusion suspected. Endotracheal tube in good position cont vents support (3) Sepsis Assessment & Plan: Pt cachetic and presented on admission with multiple pressure injuries. Partial thickness pressure injury Cleft of L ear(L)1.2cm x (W)0.4cm. Base of wound moist and viable with small amt sanguineous exudate. Partial thickness pressure injury cleft of R ear(L)0.5cm x (W)0.7cm. Base of wound moist and viable Periwound erythematous.Small amt sanguineous exudate noted. Sacral DTPI(L)5cm x (W)10.5cm. Base of injury is purple with maroon borders. Coccygeal bony protrusion with darker skin tone, and small opening noted to R gluteus (L)0.5cm x (W)0.5cm within base of injury. No further skin breakdown periwound. Intact blood blister noted to R 1st metatarsal head(L)1.1cm x (W)2.5cm. DTPI noted to L heel extending into plantar aspect. Base of injury presents as an intact blood filled blister. Periwound is boggy with non-blanching erythema. R heel is boggy but blanchable. wounds unlikely etiology of sepsis respiratory but given current condition high risk for breakdown and worsening will monitor closely discussed with RN and staff great care being provided Tx.Plan: Apply Betadine to clefts of R and L ears. Pad oxygen tubing with gauze and keep oxygen tubing loose. Apply Moisture Barrier Paste to Sacrum. Cover with Optifoam drsg. Change every 3 days and prn. Apply Betadine to L heel. Cover with Optifoam drsg. Change every 3 days and prn. Apply Betadine to R 1st metatarsal head. Cover with Optifoam drsg. Change every 3 days and prn. Apply Cavilon Skin Barrier R heel. Cover with Optifoam drsg. Change every 7 days and prn. Reposition at least every 2hours or as tolerated. Off-load heels with pillow. (4) Severe anemia (5) Nosocomial pneumonia (6) Atrial fibrillation (7) Acute metabolic encephalopathy (8) History of CVA (cerebrovascular accident) (9) Diabetes mellitus (10) Hypothyroidism (11) Alzheimer's dementia (12) PVC (premature ventricular contraction) (13) Hypertension (14) Squamous cell esophageal cancer (15) Feeding by G-tube (16) Dehydration (17) Anemia (18) Severe malnutrition Assessment & Plan: Pt cachetic and presented on admission with multiple pressure injuries. Partial thickness pressure injury Cleft of L ear(L)1.2cm x (W )0.4cm. Base of wound moist and viable with small amt sanguineous exudate. Partial thickness pressure injury cleft of R ear(L)0.5cm x (W)0.7cm. Base of wound moist and viable Periwound erythematous.Small amt sanguineous exudate noted. Sacral DTPI(L)5cm x (W)10.5cm. Base of injury is purple with maroon borders. Coccygeal bony protrusion with darker skin tone, and small opening noted to R gluteus (L)0.5cm x (W)0.5cm within base of injury. No further skin breakdown periwound. Intact blood blister noted to R 1st metatarsal head(L)1.1cm x (W)2.5cm. DTPI noted to L heel extending into plantar aspect. Base of injury presents as an intact blood filled blister. Periwound is boggy with non-blanching erythema. R heel is boggy but blanchable. Tx.Plan: Apply Betadine to clefts of R and L ears. Pad oxygen tubing with gauze and keep oxygen tubing loose. Apply Moisture Barrier Paste to Sacrum. Cover with Optifoam drsg. Change every 3 days and prn. Apply Betadine to L heel. Cover with Optifoam drsg. Change every 3 days and prn. Apply Betadine to R 1st metatarsal head. Cover with Optifoam drsg. Change every 3 days and prn. Apply Cavilon Skin Barrier R heel. Cover with Optifoam drsg. Change every 7 days and prn. Reposition at least every 2hours or as tolerated. Off-load heels with pillow. (19) Encounter for PEG (percutaneous endoscopic gastrostomy) (20) At high risk for aspiration (21) Pleural effusion (22) Suspected COVID-19 virus infection Jan Mora Sep 17, 2019 19:49
[2019-09-17] MEDS ORDERED: NS 275ml ONE ×2 (21:03→21:05)
--- NOTE | 2019-09-17 21:16 | Infectious Diseases Prog Note ---
Assessment/Plan Assessment/Plan Afebrile No leukocytosis PNA SARS-CoV neg x2 MRSA screen pos sp cx: PSA and proteus CXR: Right pleural effusion, also demonstrated on prior 08/09/2019 exam, slightly increased. Hazy right lung parenchymal opacity probably represents a superimposed pleural fluid but infiltrate also possible. QTc 419 DM HTN CVA Dementia Nonverbal G tube Plan: continue cefepime # 11/10-14 4/ SP vanc #4 ( Cr increased) f/u Bcx ICU care monitor temp and CBC DC COVID isolation isolation precaution per hospital protocol DW RN Thank you for this consult. [facility] will continue to follow the patient with you. Subjective Allergies: Coded Allergies: PENICILLINS (Verified Allergy, Unknown, 10/27/18) tolretas cephalosporins Subjective Afebrile. FiO2 40% No leukocytosis Objective Vital Signs Last 24 Hour Vital Signs Date Time Temp Pulse Resp B/P (MAP) Pulse Ox O2 Delivery O2 Flow Rate FiO2 09/17/19 19:04 67 17 40 09/17/19 18:12 60 162/63 09/17/19 18:00 70 16 162/63 (96) 100 09/17/19 17:09 73 21 40 09/17/19 17:00 62 16 149/55 (86) 100 09/17/19 16:00 61 16 152/75 (100) 100 09/17/19 16:00 40 09/17/19 16:00 Mechanical Ventilator 09/17/19 16:00 61 09/17/19 15:00 63 16 149/72 (97) 100 09/17/19 14:54 63 21 40 09/17/19 14:00 63 17 150/54 (86) 99 09/17/19 13:09 60 16 40 09/17/19 13:00 62 16 136/57 (83) 100 09/17/19 12:00 Mechanical Ventilator 09/17/19 12:00 62 09/17/19 12:00 97.9 58 16 139/56 (83) 100 09/17/19 12:00 40 09/17/19 11:11 57 15 40 09/17/19 11:00 60 16 151/61 (91) 100 09/17/19 10:00 59 17 136/57 (83) 100 09/17/19 09:28 60 15 40 09/17/19 09:19 60 153/66 4/11/20 09:00 60 18 153/66 (95) 100 09/17/19 08:00 97.8 64 17 166/67 (100) 100 09/17/19 08:00 Mechanical Ventilator 09/17/19 08:00 40 09/17/19 08:00 61 09/17/19 07:15 63 18 40 09/17/19 07:00 62 19 164/69 (100) 100 09/17/19 06:13 64 20 09/17/19 06:00 65 14 147/57 (87) 100 09/17/19 05:50 55 14 40 09/17/19 05:30 61 14 145/57 (86) 100 09/17/19 05:00 69 26 172/67 (102) 99 09/17/19 04:00 40 09/17/19 04:00 98.6 66 23 173/78 (109) 98 09/17/19 04:00 Mechanical Ventilator 09/17/19 04:00 62 09/17/19 03:10 70 14 40 09/17/19 03:00 59 19 149/54 (85) 100 09/17/19 02:00 61 18 185/75 (111) 100 09/17/19 01:00 60 20 149/69 (95) 100 09/17/19 00:00 99.3 63 22 150/68 (95) 100 09/17/19 00:00 64 09/17/19 00:00 Mechanical Ventilator 09/16/19 23:00 58 14 96/47 (63) 100 09/16/19 22:43 63 14 40 09/16/19 22:00 61 14 132/62 (85) 100 09/16/19 21:17 58 16 158/77 (104) 100 Height (Feet): 5 Height (Inches): 11.00 Weight (Pounds): 154 Objective Gen: NAD. well nourished HEENT: ETT. oral secretions Resp: coarse. equal chest rise. regular rate and rhythm. Abd: Soft. no TTP. nondistended. G tube site c/d/i. Neuro: opens eyes to voice and follows simple commands Laboratory Tests Test 09/17/19 04:54 White Blood Count 5.9 K/UL (4.8-10.8) Red Blood Count 3.49 M/UL (4.70-6.10) L Hemoglobin 9.3 G/DL (14.2-18.0) L Hematocrit 29.0 % (42.0-52.0) L Mean Corpuscular Volume 83 FL (80-99) Mean Corpuscular Hemoglobin 26.5 PG (27.0-31.0) L Mean Corpuscular Hemoglobin Concent 31.9 G/DL (32.0-36.0) L Red Cell Distribution Width 19.0 % (11.6-14.8) H Platelet Count 379 K/UL (150-450) Mean Platelet Volume 5.8 FL (6.5-10.1) L Neutrophils (%) (Auto) 58.2 % (45.0-75.0) Lymphocytes (%) (Auto) 27.1 % (20.0-45.0) Monocytes (%) (Auto) 6.9 % (1.0-10.0) Eosinophils (%) (Auto) 6.7 % (0.0-3.0) H Basophils (%) (Auto) 1.0 % (0.0-2.0) Sodium Level 144 MMOL/L (136-145) Potassium Level 3.6 MMOL/L (3.5-5.1) Chloride Level 107 MMOL/L (98-107) Carbon Dioxide Level 30 MMOL/L (21-32) Anion Gap 7 mmol/L (5-15) Blood Urea Nitrogen 19 mg/dL (7-18) H Creatinine 0.9 MG/DL (0.55-1.30) Estimat Glomerular Filtration Rate > 60 mL/min (>60) Glucose Level 126 MG/DL (74-106) H Calcium Level 8.9 MG/DL (8.5-10.1) Current Medications Medications (Trade) Dose Ordered Sig/Kike Route PRN Reason Start Time Stop Time Status Last Admin Dose Admin Acetaminophen (Tylenol) 650 mg Q4H PRN ORAL fever 09/09/19 04:30 10/07/19 04:29 Albuterol/ Ipratropium (Albuterol/ Ipratropium) 3 ml Q4H PRN HHN sob 09/17/19 08:30 09/22/19 08:29 Amlodipine Besylate (Norvasc) 5 mg BID ORAL 09/16/19 18:00 10/07/19 08:59 09/17/19 18:12 Cefepime HCl 1 gm/ Dextrose 55 ml @ 110 mls/hr Q24H IV 09/17/19 11:00 09/20/19 11:29 09/17/19 11:43 Heparin Sodium (Porcine) (Heparin 5000 units/ml) 5,000 units EVERY 12 HOURS SUBQ 09/09/19 09:00 10/22/19 08:59 09/17/19 20:44 Hydralazine HCl (Apresoline) 10 mg Q4H PRN IV sbp more than 160 09/16/19 11:16 12/15/19 11:15 Levothyroxine Sodium (Synthroid) 75 mcg DAILY@0630 ORAL 09/12/19 06:30 10/07/19 08:29 09/17/19 05:46 Lorazepam (Ativan 2mg/ml 1ml) 1 mg Q4H PRN IV For Anxiety 09/17/19 07:45 09/24/19 07:44 Mirtazapine (Remeron) 7.5 mg BEDTIME ORAL 09/09/19 21:00 12/06/19 20:59 09/17/19 20:43 Nitroglycerin (Ntg) 0.4 mg Q5M PRN SL Prn Chest Pain 09/09/19 04:30 10/07/19 04:29 Ondansetron HCl (Zofran) 4 mg Q6H PRN IVP Nausea & Vomiting 09/09/19 04:30 10/07/19 04:29 Pantoprazole (Protonix) 40 mg Q12HR IVP 09/11/19 21:00 10/10/19 08:59 09/17/19 20:43 Polyethylene Glycol (Miralax) 17 gm DAILYPRN PRN ORAL Constipation 09/09/19 04:30 10/07/19 04:29 Promethazine HCl/ Codeine (Phenergan with Codeine) 5 ml Q4H PRN ORAL For Cough 09/09/19 04:30 10/07/19 04:29 Quetiapine Fumarate (SEROqueL) 25 mg Q8H PRN NG Agitation 09/15/19 13:15 10/30/19 13:14 Marcelina Matias MD Sep 17, 2019 21:16
[2019-09-18] VITALS (25 sets, daily range): BP systolic 106–172; BP diastolic 43–68
[2019-09-18 05:07] LABS: BASOPHILS % (AUTO) 0.7 % (0.0-2.0); EOSINOPHILS % (AUTO) 4.1 % (0.0-3.0); HEMATOCRIT 26.8 % (42.0-52.0); HEMOGLOBIN 8.5 G/DL (14.2-18.0); LYMPHOCYTES % (AUTO) 20.6 % (20.0-45.0); MEAN CORPUSCULAR VOLUME 84 FL (80-99); MONOCYTES % (AUTO) 5.9 % (1.0-10.0); NEUTROPHILS % (AUTO) 68.8 % (45.0-75.0); PLATELET COUNT 383 K/UL (150-450); RED CELL DISTRIBUTION WIDTH 18.9 % (11.6-14.8); WHITE BLOOD COUNT 6.4 K/UL (4.8-10.8)
[2019-09-18 05:22] LABS: ANION GAP 4 mmol/L (5-15); BLOOD UREA NITROGEN 20 mg/dL (7-18); CALCIUM 8.8 MG/DL (8.5-10.1); CARBON DIOXIDE 33 MMOL/L (21-32); CHLORIDE 107 MMOL/L (98-107); CREATININE 0.9 MG/DL (0.55-1.30); POTASSIUM 4.1 MMOL/L (3.5-5.1); SODIUM 144 MMOL/L (136-145)
--- NOTE | 2019-09-18 08:29 | Pulmonolgy Critical Care Note ---
Critical Care - Asmt/Plan Assessment/Plan: ASSESSMENT Sepsis Acute respiratory failure requiring intubation Pseudomonas and Proteus pneumonia Acute kidney injury resolved secondary to dehydration Suspected COVID 19 infection -ruled out x 2 Hypothyroidism with elevated TSH Severe anemia Transaminitis Dysphagia, feeding by G-tube Diabetes mellitus Severe protein calorie malnutrition Multiply pressure injury, present on admission Seizure disorder PLAN of CARE ICU vent support, pulmonary toilet failing weaning so far fup with CXR and ABG may need trach abx as per ID COVID 19 x 2 by PCR -NGT; off isolation influenza screen NGT BCX NGT SCX + Pseudomonas, Proteus UCX + Abi , likely colonization aspiration precautions, GTF , protein supplements as per RD monitor H&H with goal to keep Hgb above 7 BS management trend LFT wound care as per surgeon recommendation Synthroid dose uptitrated supportive care case discussed and evaluated by supervising physician Critical Care - Objective Last 24 Hour Vital Signs Date Time Temp Pulse Resp B/P (MAP) Pulse Ox O2 Delivery O2 Flow Rate FiO2 09/18/19 07:00 66 16 161/62 (95) 100 09/18/19 06:59 60 16 40 09/18/19 06:30 66 20 09/18/19 06:00 67 16 142/48 (79) 100 09/18/19 05:36 71 22 165/68 (100) 100 09/18/19 05:00 69 18 172/52 (92) 100 09/18/19 04:57 67 21 40 09/18/19 04:00 40 09/18/19 04:00 Mechanical Ventilator 09/18/19 04:00 98.0 63 14 142/53 (82) 99 09/18/19 04:00 69 09/18/19 03:00 65 16 134/50 (78) 100 09/18/19 02:09 68 17 40 09/18/19 02:00 71 25 159/56 (90) 99 09/18/19 01:00 72 22 161/64 (96) 100 09/18/19 00:00 Mechanical Ventilator 09/18/19 00:00 98.4 63 14 117/53 (74) 100 09/18/19 00:00 40 09/17/19 23:24 64 09/17/19 23:00 61 16 105/55 (72) 94 09/17/19 22:44 62 15 40 09/17/19 22:00 63 14 101/52 (68) 100 09/17/19 21:00 63 14 108/52 (70) 100 09/17/19 20:00 62 09/17/19 20:00 40 09/17/19 20:00 66 16 148/58 (88) 100 09/17/19 20:00 Mechanical Ventilator 09/17/19 19:04 67 17 40 09/17/19 19:00 98.1 68 21 170/68 (102) 100 09/17/19 18:12 60 162/63 09/17/19 18:00 70 16 162/63 (96) 100 09/17/19 17:09 73 21 40 09/17/19 17:00 62 16 149/55 (86) 100 09/17/19 16:00 61 16 152/75 (100) 100 09/17/19 16:00 40 09/17/19 16:00 Mechanical Ventilator 09/17/19 16:00 61 09/17/19 15:00 63 16 149/72 (97) 100 09/17/19 14:54 63 21 40 09/17/19 14:00 63 17 150/54 (86) 99 09/17/19 13:09 60 16 40 09/17/19 13:00 62 16 136/57 (83) 100 09/17/19 12:00 Mechanical Ventilator 09/17/19 12:00 62 09/17/19 12:00 97.9 58 16 139/56 (83) 100 09/17/19 12:00 40 09/17/19 11:11 57 15 40 09/17/19 11:00 60 16 151/61 (91) 100 09/17/19 10:00 59 17 136/57 (83) 100 09/17/19 09:28 60 15 40 09/17/19 09:19 60 153/66 09/17/19 09:00 60 18 153/66 (95) 100 Objective: Condition: critical, intubated HEENT: atraumatic, normocephalic, OP with ET in place, intact Lungs: overall clear Heart: HR/BP stable Abdomen: soft, active bowel sounds, G tube Extremities: no C/C/E Critical Care - Subjective Interval Events: remains afebrile, no leukocytosis, not tolerating weaning Condition: critical IV Access: peripheral EKG Rhythm: Sinus Rhythm FI02: 40 Vent Support Breath Rate: 14 Vent Support Mode: AC Vent Tidal Volume: 550 Sputum Amount: Moderate PEEP: 5.0 PIP: 41 Tube Feeding Amount: 0 I&O: Intake and Output 09/17/19 09/18/19 19:00 07:00 Intake Total 875 ml 690 ml Output Total 430 ml 475 ml Balance 445 ml 215 ml IV Total 55 ml Tube Feeding 720 ml 570 ml Other 100 ml 120 ml Output Urine Total 430 ml 475 ml CXR: CXR 09/14 Previously demonstrated bilateral pleural effusions are unchanged. Bilateral mostly perihilar interstitial and airspace infiltrates persist. Denser consolidation is seen in the right perihilar region and left retrocardiac region. Stable satisfactory position of endotracheal tube. ET-Tube: 7.5 ET Position: 23 Miranda Pimentel [employer] Sep 18, 2019 08:29
[2019-09-18] MEDS: Pantoprazole Inj IVP SCH ×2 (09:39→21:22)
[2019-09-18] MEDS: Heparin 5000 units/ml inj SUBQ SCH ×2 (09:43→21:24)
--- NOTE | 2019-09-18 11:06 | Diagnostic Imaging Report ---
EXAM: XR Chest, 1 View CLINICAL HISTORY: SOB TECHNIQUE: Frontal view of the chest. COMPARISON: Chest x-ray 09/15/19 FINDINGS: Lungs: Similar bilateral interstitial prominence, greater on the right. Stable right perihilar, mid and lower lung opacities. Similar left lung base opacity. Pleural space: Small left pleural effusion is stable. Loculated right pleural effusion is stable. No pneumothorax. Heart: Unremarkable. No cardiomegaly. Mediastinum: Unremarkable. Bones/joints: Unremarkable. Tubes, lines and devices: Endotracheal tube has been pulled back and is 10 cm above the anselmo near the thoracic inlet. IMPRESSION: Endotracheal tube has been pulled back and is 10 cm above the anselmo near the thoracic inlet. Remainder findings are stable.
[2019-09-18] MEDS: Cefepime HCl 1 GM in D5W 55 ML IV SCH (11:15)
--- NOTE | 2019-09-18 11:48 | Nephrology Progress Note ---
Assessment/Plan Problem List: (1) RAMAN (acute kidney injury) Assessment: Serum creatinine normalized with hydration (2) Dehydration (3) Suspected COVID-19 virus infection (4) Anemia (5) Sepsis (6) Diabetes mellitus (7) Hypothyroidism Assessment - Acute renal failure - Severe anemia - Sepsis, pneumonia, acute respiratory failure, suspected: Viewed 19 virus infection - Diabetes mellitus - Hypothyroidism - Feeding by G-tube - Squamous cell esophageal cancer - History of CVA (cerebrovascular accident) Plan PNA SARS-CoV neg x2 MRSA screen pos sp cx: PSA and proteus Failing weaning from ventilator Changes Seroquel to "as needed" due to bradycardia Discontinue IV fluid Monitor renal parameters, serum creatinine Adjust electrolytes with supplements Increase Synthroid dose Avoid nephrotoxic's as possible Ventilator management Urine studies Per orders Subjective ROS Limited/Unobtainable: Yes Objective Objective Last 24 Hour Vital Signs Date Time Temp Pulse Resp B/P (MAP) Pulse Ox O2 Delivery O2 Flow Rate FiO2 09/18/19 10:00 65 14 137/61 (86) 95 09/18/19 09:39 66 157/58 09/18/19 09:05 71 19 40 09/18/19 09:00 67 20 157/58 (91) 100 09/18/19 08:00 64 09/18/19 08:00 98.7 65 16 132/52 (78) 100 09/18/19 08:00 Mechanical Ventilator 09/18/19 08:00 40 09/18/19 07:00 66 16 161/62 (95) 100 09/18/19 06:59 60 16 40 09/18/19 06:30 66 20 09/18/19 06:00 67 16 142/48 (79) 100 09/18/19 05:36 71 22 165/68 (100) 100 09/18/19 05:00 69 18 172/52 (92) 100 09/18/19 04:57 67 21 40 09/18/19 04:00 40 09/18/19 04:00 Mechanical Ventilator 09/18/19 04:00 98.0 63 14 142/53 (82) 99 09/18/19 04:00 69 09/18/19 03:00 65 16 134/50 (78) 100 09/18/19 02:09 68 17 40 09/18/19 02:00 71 25 159/56 (90) 99 09/18/19 01:00 72 22 161/64 (96) 100 09/18/19 00:00 Mechanical Ventilator 09/18/19 00:00 98.4 63 14 117/53 (74) 100 09/18/19 00:00 40 09/17/19 23:24 64 09/17/19 23:00 61 16 105/55 (72) 94 09/17/19 22:44 62 15 40 09/17/19 22:00 63 14 101/52 (68) 100 09/17/19 21:00 63 14 108/52 (70) 100 09/17/19 20:00 62 09/17/19 20:00 40 09/17/19 20:00 66 16 148/58 (88) 100 09/17/19 20:00 Mechanical Ventilator 09/17/19 19:04 67 17 40 09/17/19 19:00 98.1 68 21 170/68 (102) 100 09/17/19 18:12 60 162/63 09/17/19 18:00 70 16 162/63 (96) 100 09/17/19 17:09 73 21 40 09/17/19 17:00 62 16 149/55 (86) 100 09/17/19 16:00 61 16 152/75 (100) 100 09/17/19 16:00 40 09/17/19 16:00 Mechanical Ventilator 09/17/19 16:00 61 09/17/19 15:00 63 16 149/72 (97) 100 09/17/19 14:54 63 21 40 09/17/19 14:00 63 17 150/54 (86) 99 09/17/19 13:09 60 16 40 09/17/19 13:00 62 16 136/57 (83) 100 09/17/19 12:00 Mechanical Ventilator 09/17/19 12:00 62 09/17/19 12:00 97.9 58 16 139/56 (83) 100 09/17/19 12:00 40 Intake and Output 09/17/19 09/18/19 19:00 07:00 Intake Total 875 ml 690 ml Output Total 430 ml 475 ml Balance 445 ml 215 ml IV Total 55 ml Tube Feeding 720 ml 570 ml Other 100 ml 120 ml Output Urine Total 430 ml 475 ml Current Medications Medications (Trade) Dose Ordered Sig/Kike Route PRN Reason Start Time Stop Time Status Last Admin Dose Admin Acetaminophen (Tylenol) 650 mg Q4H PRN ORAL fever 09/09/19 04:30 10/07/19 04:29 Albuterol/ Ipratropium (Albuterol/ Ipratropium) 3 ml Q4H PRN HHN sob 09/17/19 08:30 09/22/19 08:29 Amlodipine Besylate (Norvasc) 5 mg BID ORAL 09/16/19 18:00 10/07/19 08:59 09/18/19 09:39 Cefepime HCl 1 gm/ Dextrose 55 ml @ 110 mls/hr Q24H IV 09/17/19 11:00 09/20/19 11:29 09/18/19 11:15 Heparin Sodium (Porcine) (Heparin 5000 units/ml) 5,000 units EVERY 12 HOURS SUBQ 09/09/19 09:00 10/22/19 08:59 09/18/19 09:43 Hydralazine HCl (Apresoline) 10 mg Q4H PRN IV sbp more than 160 09/16/19 11:16 12/15/19 11:15 Levothyroxine Sodium (Synthroid) 75 mcg DAILY@0630 ORAL 09/12/19 06:30 10/07/19 08:29 09/18/19 05:34 Lorazepam (Ativan 2mg/ml 1ml) 1 mg Q4H PRN IV For Anxiety 09/17/19 07:45 09/24/19 07:44 Mirtazapine (Remeron) 7.5 mg BEDTIME ORAL 09/09/19 21:00 12/06/19 20:59 09/17/19 20:43 Nitroglycerin (Ntg) 0.4 mg Q5M PRN SL Prn Chest Pain 09/09/19 04:30 10/07/19 04:29 Ondansetron HCl (Zofran) 4 mg Q6H PRN IVP Nausea & Vomiting 09/09/19 04:30 10/07/19 04:29 09/18/19 02:10 Pantoprazole (Protonix) 40 mg Q12HR IVP 09/11/19 21:00 10/10/19 08:59 09/18/19 09:39 Polyethylene Glycol (Miralax) 17 gm DAILYPRN PRN ORAL Constipation 09/09/19 04:30 10/07/19 04:29 Promethazine HCl/ Codeine (Phenergan with Codeine) 5 ml Q4H PRN ORAL For Cough 09/09/19 04:30 10/07/19 04:29 Quetiapine Fumarate (SEROqueL) 25 mg Q8H PRN NG Agitation 09/15/19 13:15 10/30/19 13:14 Laboratory Tests 09/18/19 03:02: White Blood Count 6.4, Red Blood Count 3.20L, Hemoglobin 8.5L, Hematocrit 26.8L , Mean Corpuscular Volume 84, Mean Corpuscular Hemoglobin 26.5L, Mean Corpuscular Hemoglobin Concent 31.7L, Red Cell Distribution Width 18.9H, Platelet Count 383, Mean Platelet Volume 5.9L, Neutrophils (%) (Auto) 68.8, Lymphocytes (%) (Auto) 20.6, Monocytes (%) (Auto) 5.9, Eosinophils (%) (Auto) 4.1H, Basophils (%) (Auto) 0.7, Sodium Level 144, Potassium Level 4.1, Chloride Level 107, Carbon Dioxide Level 33H, Anion Gap 4L, Blood Urea Nitrogen 20H, Creatinine 0.9, Estimat Glomerular Filtration Rate > 60, Glucose Level 132H, Calcium Level 8.8 09/18/19 08:52: Arterial Blood pH 7.401, Arterial Blood Partial Pressure CO2 53.2H, Arterial Blood Partial Pressure O2 99.9, Arterial Blood HCO3 32.3H, Arterial Blood Oxygen Saturation 97.4, Arterial Blood Base Excess 6.6H, Watson Test Positive Height (Feet): 5 Height (Inches): 11.00 Weight (Pounds): 154 General Appearance: no apparent distress EENT: other Cardiovascular: normal rate Respiratory/Chest: decreased breath sounds Abdomen: soft Clovis Benites MD Sep 18, 2019 11:48
[2019-09-18] MEDS ORDERED: 1/2 NS 1000ml IV ONE (14:10)
[2019-09-18] MEDS ORDERED: NS 275ml ONE ×2 (14:10→14:25)
[2019-09-18] MEDS ORDERED: Sterile Water Irrig 1000ml IRRIG ONE (14:25)
--- NOTE | 2019-09-18 15:18 | Surgery Progress Note ---
Surgery Progress Note Subjective Additional Comments ill appearing cxr noted will need to monitor tube placement labs noted Objective Last 24 Hour Vital Signs Date Time Temp Pulse Resp B/P (MAP) Pulse Ox O2 Delivery O2 Flow Rate FiO2 09/18/19 14:00 64 14 126/60 (82) 100 09/18/19 13:00 62 14 125/43 (70) 100 09/18/19 12:51 59 14 40 09/18/19 12:00 40 09/18/19 12:00 Mechanical Ventilator 09/18/19 12:00 98.7 69 130/59 (82) 09/18/19 12:00 65 09/18/19 11:00 66 22 141/65 (90) 95 09/18/19 10:00 65 14 137/61 (86) 95 09/18/19 09:39 66 157/58 09/18/19 09:05 71 19 40 09/18/19 09:00 67 20 157/58 (91) 100 09/18/19 08:00 64 09/18/19 08:00 98.7 65 16 132/52 (78) 100 09/18/19 08:00 Mechanical Ventilator 09/18/19 08:00 40 09/18/19 07:00 66 16 161/62 (95) 100 09/18/19 06:59 60 16 40 09/18/19 06:30 66 20 09/18/19 06:00 67 16 142/48 (79) 100 09/18/19 05:36 71 22 165/68 (100) 100 09/18/19 05:00 69 18 172/52 (92) 100 09/18/19 04:57 67 21 40 09/18/19 04:00 40 09/18/19 04:00 Mechanical Ventilator 09/18/19 04:00 98.0 63 14 142/53 (82) 99 09/18/19 04:00 69 09/18/19 03:00 65 16 134/50 (78) 100 09/18/19 02:09 68 17 40 09/18/19 02:00 71 25 159/56 (90) 99 09/18/19 01:00 72 22 161/64 (96) 100 09/18/19 00:00 Mechanical Ventilator 09/18/19 00:00 98.4 63 14 117/53 (74) 100 09/18/19 00:00 40 09/17/19 23:24 64 09/17/19 23:00 61 16 105/55 (72) 94 09/17/19 22:44 62 15 40 09/17/19 22:00 63 14 101/52 (68) 100 09/17/19 21:00 63 14 108/52 (70) 100 09/17/19 20:00 62 09/17/19 20:00 40 09/17/19 20:00 66 16 148/58 (88) 100 09/17/19 20:00 Mechanical Ventilator 09/17/19 19:04 67 17 40 09/17/19 19:00 98.1 68 21 170/68 (102) 100 09/17/19 18:12 60 162/63 09/17/19 18:00 70 16 162/63 (96) 100 09/17/19 17:09 73 21 40 09/17/19 17:00 62 16 149/55 (86) 100 09/17/19 16:00 61 16 152/75 (100) 100 09/17/19 16:00 40 09/17/19 16:00 Mechanical Ventilator 09/17/19 16:00 61 I&O Intake and Output 09/17/19 09/18/19 19:00 07:00 Intake Total 875 ml 690 ml Output Total 430 ml 475 ml Balance 445 ml 215 ml IV Total 55 ml Tube Feeding 720 ml 570 ml Other 100 ml 120 ml Output Urine Total 430 ml 475 ml Dressing: saturated Wound: other Drains: other Cardiovascular: RSR Respiratory: decreased breath sounds Abdomen: soft, non-tender, present bowel sounds Extremities: no tenderness, no cyanosis Laboratory Tests Test 09/18/19 03:02 09/18/19 08:52 White Blood Count 6.4 K/UL (4.8-10.8) Red Blood Count 3.20 M/UL (4.70-6.10) L Hemoglobin 8.5 G/DL (14.2-18.0) L Hematocrit 26.8 % (42.0-52.0) L Mean Corpuscular Volume 84 FL (80-99) Mean Corpuscular Hemoglobin 26.5 PG (27.0-31.0) L Mean Corpuscular Hemoglobin Concent 31.7 G/DL (32.0-36.0) L Red Cell Distribution Width 18.9 % (11.6-14.8) H Platelet Count 383 K/UL (150-450) Mean Platelet Volume 5.9 FL (6.5-10.1) L Neutrophils (%) (Auto) 68.8 % (45.0-75.0) Lymphocytes (%) (Auto) 20.6 % (20.0-45.0) Monocytes (%) (Auto) 5.9 % (1.0-10.0) Eosinophils (%) (Auto) 4.1 % (0.0-3.0) H Basophils (%) (Auto) 0.7 % (0.0-2.0) Sodium Level 144 MMOL/L (136-145) Potassium Level 4.1 MMOL/L (3.5-5.1) Chloride Level 107 MMOL/L (98-107) Carbon Dioxide Level 33 MMOL/L (21-32) H Anion Gap 4 mmol/L (5-15) L Blood Urea Nitrogen 20 mg/dL (7-18) H Creatinine 0.9 MG/DL (0.55-1.30) Estimat Glomerular Filtration Rate > 60 mL/min (>60) Glucose Level 132 MG/DL (74-106) H Calcium Level 8.8 MG/DL (8.5-10.1) Arterial Blood pH 7.401 (7.350-7.450) Arterial Blood Partial Pressure CO2 53.2 mmHg (35.0-45.0) H Arterial Blood Partial Pressure O2 99.9 mmHg (75.0-100.0) Arterial Blood HCO3 32.3 mmol/L (22.0-26.0) H Arterial Blood Oxygen Saturation 97.4 % (95-100) Arterial Blood Base Excess 6.6 (-2-2) H Watson Test Positive Plan Problems: (1) UTI (urinary tract infection) (2) Acute respiratory failure Assessment & Plan: There is infiltrate suspected in the right perihilar region obscuring the right hilum. There is a hazy opacity that may partially be accounted for by pleural fluid on the right. Reticular densities are present on the left in the perihilar aspect of the lung. Endotracheal tube is in good position just above the anselmo. Heart size is normal. IMPRESSION: Suspected perihilar airspace disease in the right lung suspicious for pneumonia. Reticular nodular infiltrate in the left lung noted also. Right pleural effusion suspected. Endotracheal tube in good position cont vents support Lungs: Similar bilateral interstitial prominence, greater on the right. Stable right perihilar, mid and lower lung opacities. Similar left lung base opacity. Pleural space: Small left pleural effusion is stable. Loculated right pleural effusion is stable. No pneumothorax. Heart: Unremarkable. No cardiomegaly. Mediastinum: Unremarkable. Bones/joints: Unremarkable. Tubes, lines and devices: Endotracheal tube has been pulled back and is 10 cm above the anselmo near the thoracic inlet. IMPRESSION: Endotracheal tube has been pulled back and is 10 cm above the anselmo near the thoracic inlet. Remainder findings are stable. (3) Sepsis Assessment & Plan: Pt cachetic and presented on admission with multiple pressure injuries. Partial thickness pressure injury Cleft of L ear(L)1.2cm x (W)0.4cm. Base of wound moist and viable with small amt sanguineous exudate. Partial thickness pressure injury cleft of R ear(L)0.5cm x (W)0.7cm. Base of wound moist and viable Periwound erythematous.Small amt sanguineous exudate noted. Sacral DTPI(L)5cm x (W)10.5cm. Base of injury is purple with maroon borders. Coccygeal bony protrusion with darker skin tone, and small opening noted to R gluteus (L)0.5cm x (W)0.5cm within base of injury. No further skin breakdown periwound. Intact blood blister noted to R 1st metatarsal head(L)1.1cm x (W)2.5cm. DTPI noted to L heel extending into plantar aspect. Base of injury presents as an intact blood filled blister. Periwound is boggy with non-blanching erythema. R heel is boggy but blanchable. wounds unlikely etiology of sepsis respiratory but given current condition high risk for breakdown and worsening will monitor closely discussed with RN and staff great care being provided Tx.Plan: Apply Betadine to clefts of R and L ears. Pad oxygen tubing with gauze and keep oxygen tubing loose. Apply Moisture Barrier Paste to Sacrum. Cover with Optifoam drsg. Change every 3 days and prn. Apply Betadine to L heel. Cover with Optifoam drsg. Change every 3 days and prn. Apply Betadine to R 1st metatarsal head. Cover with Optifoam drsg. Change every 3 days and prn. Apply Cavilon Skin Barrier R heel. Cover with Optifoam drsg. Change every 7 days and prn. Reposition at least every 2hours or as tolerated. Off-load heels with pillow. (4) Severe anemia (5) Nosocomial pneumonia (6) Atrial fibrillation (7) Acute metabolic encephalopathy (8) History of CVA (cerebrovascular accident) (9) Diabetes mellitus (10) Hypothyroidism (11) Alzheimer's dementia (12) PVC (premature ventricular contraction) (13) Hypertension (14) Squamous cell esophageal cancer (15) Feeding by G-tube (16) Dehydration (17) Anemia (18) Severe malnutrition Assessment & Plan: Pt cachetic and presented on admission with multiple pressure injuries. Partial thickness pressure injury Cleft of L ear(L)1.2cm x (W )0.4cm. Base of wound moist and viable with small amt sanguineous exudate. Partial thickness pressure injury cleft of R ear(L)0.5cm x (W)0.7cm. Base of wound moist and viable Periwound erythematous.Small amt sanguineous exudate noted. Sacral DTPI(L)5cm x (W)10.5cm. Base of injury is purple with maroon borders. Coccygeal bony protrusion with darker skin tone, and small opening noted to R gluteus (L)0.5cm x (W)0.5cm within base of injury. No further skin breakdown periwound. Intact blood blister noted to R 1st metatarsal head(L)1.1cm x (W)2.5cm. DTPI noted to L heel extending into plantar aspect. Base of injury presents as an intact blood filled blister. Periwound is boggy with non-blanching erythema. R heel is boggy but blanchable. Tx.Plan: Apply Betadine to clefts of R and L ears. Pad oxygen tubing with gauze and keep oxygen tubing loose. Apply Moisture Barrier Paste to Sacrum. Cover with Optifoam drsg. Change every 3 days and prn. Apply Betadine to L heel. Cover with Optifoam drsg. Change every 3 days and prn. Apply Betadine to R 1st metatarsal head. Cover with Optifoam drsg. Change every 3 days and prn. Apply Cavilon Skin Barrier R heel. Cover with Optifoam drsg. Change every 7 days and prn. Reposition at least every 2hours or as tolerated. Off-load heels with pillow. (19) Encounter for PEG (percutaneous endoscopic gastrostomy) (20) At high risk for aspiration (21) Pleural effusion (22) Suspected COVID-19 virus infection aJn Mora Sep 18, 2019 15:18
--- NOTE | 2019-09-18 15:26 | Internal Med Progress Note ---
Subjective Date of Service: Sep 18, 2019 Physician Name NiurkaXander Attending Physician Lamont Hayes MD Current Medications Medications (Trade) Dose Ordered Sig/Kike Route PRN Reason Start Time Stop Time Status Last Admin Dose Admin Acetaminophen (Tylenol) 650 mg Q4H PRN ORAL fever 09/09/19 04:30 10/07/19 04:29 Albuterol/ Ipratropium (Albuterol/ Ipratropium) 3 ml Q4H PRN HHN sob 09/17/19 08:30 09/22/19 08:29 Amlodipine Besylate (Norvasc) 5 mg BID ORAL 09/16/19 18:00 10/07/19 08:59 09/18/19 09:39 Cefepime HCl 1 gm/ Dextrose 55 ml @ 110 mls/hr Q24H IV 09/17/19 11:00 09/20/19 11:29 09/18/19 11:15 Heparin Sodium (Porcine) (Heparin 5000 units/ml) 5,000 units EVERY 12 HOURS SUBQ 09/09/19 09:00 10/22/19 08:59 09/18/19 09:43 Hydralazine HCl (Apresoline) 10 mg Q4H PRN IV sbp more than 160 09/16/19 11:16 12/15/19 11:15 Levothyroxine Sodium (Synthroid) 75 mcg DAILY@0630 ORAL 09/12/19 06:30 10/07/19 08:29 09/18/19 05:34 Lorazepam (Ativan 2mg/ml 1ml) 1 mg Q4H PRN IV For Anxiety 09/17/19 07:45 09/24/19 07:44 Mirtazapine (Remeron) 7.5 mg BEDTIME ORAL 09/09/19 21:00 12/06/19 20:59 09/17/19 20:43 Nitroglycerin (Ntg) 0.4 mg Q5M PRN SL Prn Chest Pain 09/09/19 04:30 10/07/19 04:29 Ondansetron HCl (Zofran) 4 mg Q6H PRN IVP Nausea & Vomiting 09/09/19 04:30 10/07/19 04:29 09/18/19 02:10 Pantoprazole (Protonix) 40 mg Q12HR IVP 09/11/19 21:00 5/20 08:59 09/18/19 09:39 Polyethylene Glycol (Miralax) 17 gm DAILYPRN PRN ORAL Constipation 09/09/19 04:30 10/07/19 04:29 Promethazine HCl/ Codeine (Phenergan with Codeine) 5 ml Q4H PRN ORAL For Cough 09/09/19 04:30 10/07/19 04:29 Quetiapine Fumarate (SEROqueL) 25 mg Q8H PRN NG Agitation 09/15/19 13:15 10/30/19 13:14 Allergies: Coded Allergies: PENICILLINS (Verified Allergy, Unknown, 10/27/18) tolretas cephalosporins ROS Limited/Unobtainable: Yes Subjective 84 YO M admitted with cough and congestion. Now right pleural effusion and pneumonia. Cover for Int Med-Dr Hayes. ICU. Intubated and sedated Objective Last Vital Signs Date Time Temp Pulse Resp B/P (MAP) Pulse Ox O2 Delivery O2 Flow Rate FiO2 09/18/19 14:00 64 14 126/60 (82) 100 09/18/19 12:51 40 09/18/19 12:00 Mechanical Ventilator 09/18/19 12:00 98.7 Laboratory Tests Test 09/18/19 03:02 09/18/19 08:52 White Blood Count 6.4 K/UL (4.8-10.8) Red Blood Count 3.20 M/UL (4.70-6.10) L Hemoglobin 8.5 G/DL (14.2-18.0) L Hematocrit 26.8 % (42.0-52.0) L Mean Corpuscular Volume 84 FL (80-99) Mean Corpuscular Hemoglobin 26.5 PG (27.0-31.0) L Mean Corpuscular Hemoglobin Concent 31.7 G/DL (32.0-36.0) L Red Cell Distribution Width 18.9 % (11.6-14.8) H Platelet Count 383 K/UL (150-450) Mean Platelet Volume 5.9 FL (6.5-10.1) L Neutrophils (%) (Auto) 68.8 % (45.0-75.0) Lymphocytes (%) (Auto) 20.6 % (20.0-45.0) Monocytes (%) (Auto) 5.9 % (1.0-10.0) Eosinophils (%) (Auto) 4.1 % (0.0-3.0) H Basophils (%) (Auto) 0.7 % (0.0-2.0) Sodium Level 144 MMOL/L (136-145) Potassium Level 4.1 MMOL/L (3.5-5.1) Chloride Level 107 MMOL/L (98-107) Carbon Dioxide Level 33 MMOL/L (21-32) H Anion Gap 4 mmol/L (5-15) L Blood Urea Nitrogen 20 mg/dL (7-18) H Creatinine 0.9 MG/DL (0.55-1.30) Estimat Glomerular Filtration Rate > 60 mL/min (>60) Glucose Level 132 MG/DL (74-106) H Calcium Level 8.8 MG/DL (8.5-10.1) Arterial Blood pH 7.401 (7.350-7.450) Arterial Blood Partial Pressure CO2 53.2 mmHg (35.0-45.0) H Arterial Blood Partial Pressure O2 99.9 mmHg (75.0-100.0) Arterial Blood HCO3 32.3 mmol/L (22.0-26.0) H Arterial Blood Oxygen Saturation 97.4 % (95-100) Arterial Blood Base Excess 6.6 (-2-2) H Watson Test Positive Intake and Output 09/17/19 09/18/19 19:00 07:00 Intake Total 875 ml 690 ml Output Total 430 ml 475 ml Balance 445 ml 215 ml IV Total 55 ml Tube Feeding 720 ml 570 ml Other 100 ml 120 ml Output Urine Total 430 ml 475 ml Objective PHYSICAL EXAMINATION: GENERAL: The patient is a thin-appearing male, in no apparent distress. HEENT: Eyes, pupils are equal and responsive to light and accommodation. Extraocular movements are intact. NECK: Supple without lymphadenopathy. CHEST: Mech vent; Lungs are clear to auscultation bilaterally with decreased breath sounds on the right. There are no wheezes appreciated. ABDOMEN: Soft, nontender, and nondistended. Positive bowel sounds. No evidence of hepatosplenomegaly. Currently, no rebound or guarding noted. EXTREMITIES: Negative for clubbing, cyanosis, or edema. RECTAL/GENITAL: Not performed. NEUROLOGIC: Cranial nerves II through XII are grossly intact without focal deficits. Assessment/Plan Assessment/Plan ASSESSMENT: This is an 84-year-old male with: 1. Possible right pneumonia=pseudamonas 2. Urinary tract infection=jennifer 3. Right pleural effusion. 4. Esophageal mass. 5. Dysphagia. 6. Diabetes. 7. Alzheimer's dementia. 8. Cerebrovascular disease. 9. Hypothyroidism. 10. Seizure disorder. 11. Iron deficiency anemia. TREATMENT: 1. Right perihilar Pneumonia/pleural effusion. COVID 19 and Influenza negative. A Pulmonary consultation has been obtained with Dr. Vania Hui. The patient underwent thoracentesis during previous hospitalization. We will follow recommendation of Pulmonary. Continue vanco and cefepime per ID=Dr Matias ABX= cefepime 2. Urinary tract infection. . A urine culture =jennifer 3. Right pleural effusion. As above, a Pulmonary consultation has been obtained with Dr. Vania Hui. The patient may require thoracentesis during this hospitalization. 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 A Gastroenterology consultation has been obtained with Dr. Darrick Rosario. 5. Dysphagia. The patient is status post PEG placement on 08/08/2019 at [facility] by Dr. Darrick Rosario. 6. Diabetes type 2. A NovoLog sliding scale has been instituted. 7. Alzheimer's dementia. 8. Cerebrovascular disease, status post cerebrovascular accident. 9. Hypothyroidism. Continue levothyroxine as above. 10. Seizure disorder. 11. Iron deficiency anemia. Xander Bah MD Sep 18, 2019 15:26
[2019-09-19] VITALS (24 sets, daily range): BP systolic 117–183; BP diastolic 46–70
[2019-09-19 05:43] LABS: BASOPHILS % (AUTO) 0.8 % (0.0-2.0); EOSINOPHILS % (AUTO) 3.5 % (0.0-3.0); HEMATOCRIT 26.5 % (42.0-52.0); HEMOGLOBIN 8.4 G/DL (14.2-18.0); LYMPHOCYTES % (AUTO) 17.2 % (20.0-45.0); MEAN CORPUSCULAR VOLUME 83 FL (80-99); MONOCYTES % (AUTO) 6.9 % (1.0-10.0); NEUTROPHILS % (AUTO) 71.7 % (45.0-75.0); PLATELET COUNT 431 K/UL (150-450); RED BLOOD COUNT 3.19 M/UL (4.70-6.10); RED CELL DISTRIBUTION WIDTH 18.6 % (11.6-14.8); WHITE BLOOD COUNT 8.3 K/UL (4.8-10.8)
[2019-09-19 06:05] LABS: ALANINE AMINOTRANSFERASE 40 U/L (12-78); ALBUMIN 1.8 G/DL (3.4-5.0); ALBUMIN/GLOBULIN RATIO 0.3 (1.0-2.7); ALKALINE PHOSPHATASE 146 U/L (46-116); ASPARTATE AMINO TRANSFERASE 33 U/L (15-37); BILIRUBIN,TOTAL 0.2 MG/DL (0.2-1.0); BLOOD UREA NITROGEN 20 mg/dL (7-18); CALCIUM 8.6 MG/DL (8.5-10.1); CARBON DIOXIDE 29 MMOL/L (21-32); CHLORIDE 108 MMOL/L (98-107); CREATININE 0.9 MG/DL (0.55-1.30); POTASSIUM 4.4 MMOL/L (3.5-5.1); SODIUM 144 MMOL/L (136-145)
[2019-09-19 06:15] LABS: PHOSPHORUS 3.1 MG/DL (2.5-4.9)
[2019-09-19] MEDS: Pantoprazole Inj IVP SCH ×2 (09:00→21:35)
[2019-09-19] MEDS: Heparin 5000 units/ml inj SUBQ SCH ×2 (09:01→21:37)
--- NOTE | 2019-09-19 10:11 | Infectious Diseases Prog Note ---
Assessment/Plan Assessment/Plan Afebrile No leukocytosis PNA VDRF, sp intubation 09/08 SARS-CoV neg x2 MRSA screen pos sp cx: PSA (hensley S) and proteus (hensley S) 09/17 CXR: Similar bilateral interstitial prominence, greater on the right.Stable right perihilar, mid and lower lung opacities. Similar left lung base opacity. Small left pleural effusion is stable. Loculated right pleural effusion is stable. No pneumothorax. CXR: Right pleural effusion, also demonstrated on prior 08/09/2019 exam, slightly increased. Hazy right lung parenchymal opacity probably represents a superimposed pleural fluid but infiltrate also possible. QTc 419 DM HTN CVA Dementia Nonverbal G tube Plan: continue cefepime # 13/14 09/09 SP vanc #4 ( Cr increased) f/u Bcx ICU care monitor temp and CBC DC COVID isolation isolation precaution per hospital protocol DW RN Thank you for this consult. [facility] will continue to follow the patient with you. Subjective Allergies: Coded Allergies: PENICILLINS (Verified Allergy, Unknown, 10/27/18) tolretas cephalosporins Subjective afebrile remains intubated, Fio2 70% no leukocytosis Objective Vital Signs Last 24 Hour Vital Signs Date Time Temp Pulse Resp B/P (MAP) Pulse Ox O2 Delivery O2 Flow Rate FiO2 09/19/19 09:00 73 22 137/57 (83) 100 09/19/19 09:00 75 183/55 09/19/19 08:50 69 20 70 09/19/19 08:49 66 14 100 Mechanical Ventilator 40 09/19/19 08:00 99.2 90 26 183/55 (97) 100 09/19/19 08:00 70 09/19/19 07:45 74 22 40 09/19/19 07:00 73 20 158/70 (99) 95 71 09/19/19 06:30 75 20 09/19/19 06:00 69 20 140/69 (92) 98 71 09/19/19 05:00 72 17 142/55 (84) 100 71 09/19/19 04:00 68 09/19/19 04:00 40 09/19/19 04:00 Mechanical Ventilator 09/19/19 04:00 71 24 146/58 (87) 100 71 09/19/19 03:10 64 20 40 4/13/20 03:00 62 15 136/59 (84) 100 62 09/19/19 02:00 66 16 141/55 (83) 100 66 09/19/19 01:00 57 16 130/52 (78) 98 64 09/19/19 00:00 98.5 56 14 121/54 (76) 100 56 09/19/19 00:00 40 09/19/19 00:00 58 09/19/19 00:00 Mechanical Ventilator 09/18/19 23:00 64 25 119/47 (71) 100 64 09/18/19 22:30 65 20 40 09/18/19 22:00 62 14 106/53 (70) 98 74 09/18/19 21:00 98.5 79 21 171/66 (101) 47 70 09/18/19 20:00 Mechanical Ventilator 09/18/19 20:00 66 20 152/50 (84) 99 70 09/18/19 20:00 66 09/18/19 20:00 40 09/18/19 19:05 68 24 40 09/18/19 19:00 66 16 148/49 (82) 100 09/18/19 18:00 71 20 137/57 (83) 100 09/18/19 17:33 61 132/54 09/18/19 17:00 61 14 132/54 (80) 100 09/18/19 16:27 62 14 40 09/18/19 16:00 Mechanical Ventilator 09/18/19 16:00 40 09/18/19 16:00 60 09/18/19 16:00 98.7 61 14 158/52 (87) 100 09/18/19 15:00 60 14 152/59 (90) 100 09/18/19 14:00 64 14 126/60 (82) 100 09/18/19 13:00 62 14 125/43 (70) 100 09/18/19 12:51 59 14 40 09/18/19 12:00 40 09/18/19 12:00 Mechanical Ventilator 09/18/19 12:00 98.7 69 130/59 (82) 09/18/19 12:00 65 09/18/19 11:00 66 22 141/65 (90) 95 Height (Feet): 5 Height (Inches): 11.00 Weight (Pounds): 150 Objective Gen: NAD. well nourished HEENT: ETT. oral secretions Resp: coarse. equal chest rise. regular rate and rhythm. Abd: Soft. no TTP. nondistended. G tube site c/d/i. Neuro: opens eyes to voice and follows simple commands Laboratory Tests Test 09/19/19 03:45 09/19/19 04:00 White Blood Count 8.3 K/UL (4.8-10.8) Red Blood Count 3.19 M/UL (4.70-6.10) L Hemoglobin 8.4 G/DL (14.2-18.0) L Hematocrit 26.5 % (42.0-52.0) L Mean Corpuscular Volume 83 FL (80-99) Mean Corpuscular Hemoglobin 26.5 PG (27.0-31.0) L Mean Corpuscular Hemoglobin Concent 31.8 G/DL (32.0-36.0) L Red Cell Distribution Width 18.6 % (11.6-14.8) H Platelet Count 431 K/UL (150-450) Mean Platelet Volume 6.0 FL (6.5-10.1) L Neutrophils (%) (Auto) 71.7 % (45.0-75.0) Lymphocytes (%) (Auto) 17.2 % (20.0-45.0) L Monocytes (%) (Auto) 6.9 % (1.0-10.0) Eosinophils (%) (Auto) 3.5 % (0.0-3.0) H Basophils (%) (Auto) 0.8 % (0.0-2.0) Sodium Level 144 MMOL/L (136-145) Potassium Level 4.4 MMOL/L (3.5-5.1) Chloride Level 108 MMOL/L (98-107) H Carbon Dioxide Level 29 MMOL/L (21-32) Blood Urea Nitrogen 20 mg/dL (7-18) H Creatinine 0.9 MG/DL (0.55-1.30) Estimat Glomerular Filtration Rate > 60 mL/min (>60) Glucose Level 112 MG/DL (74-106) H Calcium Level 8.6 MG/DL (8.5-10.1) Phosphorus Level 3.1 MG/DL (2.5-4.9) Magnesium Level 2.0 MG/DL (1.8-2.4) Total Bilirubin 0.2 MG/DL (0.2-1.0) Aspartate Amino Transf (AST/SGOT) 33 U/L (15-37) Alanine Aminotransferase (ALT/SGPT) 40 U/L (12-78) Alkaline Phosphatase 146 U/L (46-116) H C-Reactive Protein, Quantitative 6.8 mg/dL (0.00-0.90) H Pro-B-Type Natriuretic Peptide 527 pg/mL (0-125) H Total Protein 7.3 G/DL (6.4-8.2) Albumin 1.8 G/DL (3.4-5.0) L Globulin 5.5 g/dL Albumin/Globulin Ratio 0.3 (1.0-2.7) L Arterial Blood pH 7.412 (7.350-7.450) Arterial Blood Partial Pressure CO2 51.6 mmHg (35.0-45.0) H Arterial Blood Partial Pressure O2 114.6 mmHg (75.0-100.0) H Arterial Blood HCO3 32.1 mmol/L (22.0-26.0) H Arterial Blood Oxygen Saturation 98.0 % (95-100) Arterial Blood Base Excess 6.6 (-2-2) H Watson Test Positive Current Medications Medications (Trade) Dose Ordered Sig/Kike Route PRN Reason Start Time Stop Time Status Last Admin Dose Admin Acetaminophen (Tylenol) 650 mg Q4H PRN ORAL fever 09/09/19 04:30 10/07/19 04:29 Albuterol/ Ipratropium (Albuterol/ Ipratropium) 3 ml Q4H PRN HHN sob 09/17/19 08:30 09/22/19 08:29 Amlodipine Besylate (Norvasc) 5 mg BID ORAL 09/16/19 18:00 10/07/19 08:59 09/19/19 09:00 Cefepime HCl 2 gm/ Dextrose 55 ml @ 110 mls/hr Q24H IV 09/19/19 11:00 09/20/19 11:29 Heparin Sodium (Porcine) (Heparin 5000 units/ml) 5,000 units EVERY 12 HOURS SUBQ 09/09/19 09:00 10/22/19 08:59 09/19/19 09:01 Hydralazine HCl (Apresoline) 10 mg Q4H PRN IV sbp more than 160 09/16/19 11:16 12/15/19 11:15 Levothyroxine Sodium (Synthroid) 75 mcg DAILY@0630 ORAL 09/12/19 06:30 10/07/19 08:29 09/19/19 06:44 Lorazepam (Ativan 2mg/ml 1ml) 1 mg Q4H PRN IV For Anxiety 09/17/19 07:45 09/24/19 07:44 Mirtazapine (Remeron) 7.5 mg BEDTIME ORAL 09/09/19 21:00 12/06/19 20:59 09/18/19 21:22 Nitroglycerin (Ntg) 0.4 mg Q5M PRN SL Prn Chest Pain 09/09/19 04:30 10/07/19 04:29 Ondansetron HCl (Zofran) 4 mg Q6H PRN IVP Nausea & Vomiting 09/09/19 04:30 10/07/19 04:29 09/18/19 02:10 Pantoprazole (Protonix) 40 mg Q12HR IVP 09/11/19 21:00 10/10/19 08:59 09/19/19 09:00 Polyethylene Glycol (Miralax) 17 gm DAILYPRN PRN ORAL Constipation 09/09/19 04:30 10/07/19 04:29 Promethazine HCl/ Codeine (Phenergan with Codeine) 5 ml Q4H PRN ORAL For Cough 09/09/19 04:30 10/07/19 04:29 Quetiapine Fumarate (SEROqueL) 25 mg Q8H PRN NG Agitation 09/15/19 13:15 10/30/19 13:14 Danielle Roach M.D. Sep 19, 2019 10:11
--- NOTE | 2019-09-19 10:35 | Diagnostic Imaging Report ---
Indication: Reason For Exam: SOB Technique: One view of the chest Comparison: 09/18/2019 Findings: Interim marked increase in opacification of the right hemithorax, with now only a small amount of aerated lung present. Somewhat high position of endotracheal tube, tip at or just above the thoracic inlet and just below the level of the vocal cords. There may be a small left pleural effusion. There may be minimal perihilar infiltrate on the left which is unchanged. Impression: Increased opacification of the right hemithorax, presumably due to enlarging and now massive pleural effusion. There may also be a component of parenchymal atelectasis. Unchanged left perihilar infiltrate and probable small left pleural effusion High position of endotracheal tube. This finding was phoned to patient's nurse at the time of interpretation
[2019-09-19] MEDS: Cefepime HCl 2 GM in D5W 55 ML IV SCH (11:23)
--- NOTE | 2019-09-19 12:13 | Nephrology Progress Note ---
Assessment/Plan Problem List: (1) RAMAN (acute kidney injury) Assessment: Serum creatinine normalized with hydration (2) Dehydration (3) Suspected COVID-19 virus infection (4) Anemia (5) Sepsis (6) Diabetes mellitus (7) Hypothyroidism Assessment - Acute renal failure - Severe anemia - Sepsis, pneumonia, acute respiratory failure, suspected: Viewed 19 virus infection - Diabetes mellitus - Hypothyroidism - Feeding by G-tube - Squamous cell esophageal cancer - History of CVA (cerebrovascular accident) Plan Pneumonia SARS-CoV neg x2 MRSA screen pos sp cx: PSA and proteus Failing weaning from ventilator Changes Seroquel to "as needed" due to bradycardia Discontinue IV fluid Monitor renal parameters, serum creatinine Adjust electrolytes with supplements Increase Synthroid dose Avoid nephrotoxic's as possible Ventilator management Urine studies Per orders Subjective ROS Limited/Unobtainable: Yes Objective Objective Last 24 Hour Vital Signs Date Time Temp Pulse Resp B/P (MAP) Pulse Ox O2 Delivery O2 Flow Rate FiO2 09/19/19 11:29 100 09/19/19 11:24 62 18 70 09/19/19 10:00 65 14 127/59 (81) 100 09/19/19 09:00 73 22 137/57 (83) 100 09/19/19 09:00 75 183/55 09/19/19 08:50 69 20 70 09/19/19 08:49 66 14 100 Mechanical Ventilator 40 09/19/19 08:00 99.2 90 26 183/55 (97) 100 09/19/19 08:00 74 09/19/19 08:00 70 09/19/19 08:00 Mechanical Ventilator 09/19/19 07:45 74 22 40 09/19/19 07:00 73 20 158/70 (99) 95 71 09/19/19 06:30 75 20 09/19/19 06:00 69 20 140/69 (92) 98 71 09/19/19 05:00 72 17 142/55 (84) 100 71 09/19/19 04:00 68 09/19/19 04:00 40 09/19/19 04:00 Mechanical Ventilator 09/19/19 04:00 71 24 146/58 (87) 100 71 09/19/19 03:10 64 20 40 09/19/19 03:00 62 15 136/59 (84) 100 62 09/19/19 02:00 66 16 141/55 (83) 100 66 09/19/19 01:00 57 16 130/52 (78) 98 64 09/19/19 00:00 98.5 56 14 121/54 (76) 100 56 09/19/19 00:00 40 09/19/19 00:00 58 09/19/19 00:00 Mechanical Ventilator 09/18/19 23:00 64 25 119/47 (71) 100 64 09/18/19 22:30 65 20 40 09/18/19 22:00 62 14 106/53 (70) 98 74 09/18/19 21:00 98.5 79 21 171/66 (101) 47 70 09/18/19 20:00 Mechanical Ventilator 09/18/19 20:00 66 20 152/50 (84) 99 70 09/18/19 20:00 66 09/18/19 20:00 40 09/18/19 19:05 68 24 40 09/18/19 19:00 66 16 148/49 (82) 100 09/18/19 18:00 71 20 137/57 (83) 100 09/18/19 17:33 61 132/54 09/18/19 17:00 61 14 132/54 (80) 100 09/18/19 16:27 62 14 40 09/18/19 16:00 Mechanical Ventilator 09/18/19 16:00 40 09/18/19 16:00 60 09/18/19 16:00 98.7 61 14 158/52 (87) 100 09/18/19 15:00 60 14 152/59 (90) 100 09/18/19 14:00 64 14 126/60 (82) 100 09/18/19 13:00 62 14 125/43 (70) 100 09/18/19 12:51 59 14 40 Intake and Output 09/18/19 09/19/19 19:00 07:00 Intake Total 1000 ml 820 ml Output Total 600 ml 580 ml Balance 400 ml 240 ml Intake Free Water 100 ml 50 ml Tube Feeding 660 ml 720 ml Other 240 ml 50 ml Output Urine Total 600 ml 580 ml Laboratory Tests 09/19/19 03:45: White Blood Count 8.3, Red Blood Count 3.19L, Hemoglobin 8.4L, Hematocrit 26.5L , Mean Corpuscular Volume 83, Mean Corpuscular Hemoglobin 26.5L, Mean Corpuscular Hemoglobin Concent 31.8L, Red Cell Distribution Width 18.6H, Platelet Count 431, Mean Platelet Volume 6.0L, Neutrophils (%) (Auto) 71.7, Lymphocytes (%) (Auto) 17.2L, Monocytes (%) (Auto) 6.9, Eosinophils (%) (Auto) 3.5H, Basophils (%) (Auto) 0.8, Sodium Level 144, Potassium Level 4.4, Chloride Level 108H, Carbon Dioxide Level 29, Blood Urea Nitrogen 20H, Creatinine 0.9, Estimat Glomerular Filtration Rate > 60, Glucose Level 112H, Calcium Level 8.6, Phosphorus Level 3.1, Magnesium Level 2.0, Total Bilirubin 0.2, Aspartate Amino Transf (AST/SGOT) 33, Alanine Aminotransferase (ALT/SGPT) 40, Alkaline Phosphatase 146H, C-Reactive Protein, Quantitative 6.8H, Pro-B-Type Natriuretic Peptide 527H, Total Protein 7.3, Albumin 1.8L, Globulin 5.5, Albumin/Globulin Ratio 0.3L 09/19/19 04:00: Arterial Blood pH 7.412, Arterial Blood Partial Pressure CO2 51.6H, Arterial Blood Partial Pressure O2 114.6H, Arterial Blood HCO3 32.1H, Arterial Blood Oxygen Saturation 98.0, Arterial Blood Base Excess 6.6H, Watson Test Positive Height (Feet): 5 Height (Inches): 11.00 Weight (Pounds): 150 General Appearance: no apparent distress EENT: other - Remains intubated on vent Cardiovascular: normal rate Respiratory/Chest: decreased breath sounds Abdomen: distended Clovis Benites MD Sep 19, 2019 12:13
--- NOTE | 2019-09-19 12:20 | Surgery Progress Note ---
Surgery Progress Note Subjective Additional Comments ET tube advanced tube evaluated by myself and suctioning properly now as well exam stable labs noted cxr reviewed. ? thora will defer to pulm Objective Last 24 Hour Vital Signs Date Time Temp Pulse Resp B/P (MAP) Pulse Ox O2 Delivery O2 Flow Rate FiO2 09/19/19 11:29 100 09/19/19 11:24 62 18 70 09/19/19 10:00 65 14 127/59 (81) 100 09/19/19 09:00 73 22 137/57 (83) 100 09/19/19 09:00 75 183/55 09/19/19 08:50 69 20 70 09/19/19 08:49 66 14 100 Mechanical Ventilator 40 09/19/19 08:00 99.2 90 26 183/55 (97) 100 09/19/19 08:00 74 09/19/19 08:00 70 09/19/19 08:00 Mechanical Ventilator 09/19/19 07:45 74 22 40 09/19/19 07:00 73 20 158/70 (99) 95 71 09/19/19 06:30 75 20 09/19/19 06:00 69 20 140/69 (92) 98 71 09/19/19 05:00 72 17 142/55 (84) 100 71 09/19/19 04:00 68 09/19/19 04:00 40 09/19/19 04:00 Mechanical Ventilator 09/19/19 04:00 71 24 146/58 (87) 100 71 09/19/19 03:10 64 20 40 09/19/19 03:00 62 15 136/59 (84) 100 62 09/19/19 02:00 66 16 141/55 (83) 100 66 09/19/19 01:00 57 16 130/52 (78) 98 64 09/19/19 00:00 98.5 56 14 121/54 (76) 100 56 09/19/19 00:00 40 09/19/19 00:00 58 09/19/19 00:00 Mechanical Ventilator 09/18/19 23:00 64 25 119/47 (71) 100 64 09/18/19 22:30 65 20 40 09/18/19 22:00 62 14 106/53 (70) 98 74 09/18/19 21:00 98.5 79 21 171/66 (101) 47 70 09/18/19 20:00 Mechanical Ventilator 09/18/19 20:00 66 20 152/50 (84) 99 70 09/18/19 20:00 66 09/18/19 20:00 40 09/18/19 19:05 68 24 40 09/18/19 19:00 66 16 148/49 (82) 100 09/18/19 18:00 71 20 137/57 (83) 100 09/18/19 17:33 61 132/54 09/18/19 17:00 61 14 132/54 (80) 100 09/18/19 16:27 62 14 40 09/18/19 16:00 Mechanical Ventilator 09/18/19 16:00 40 09/18/19 16:00 60 09/18/19 16:00 98.7 61 14 158/52 (87) 100 09/18/19 15:00 60 14 152/59 (90) 100 09/18/19 14:00 64 14 126/60 (82) 100 09/18/19 13:00 62 14 125/43 (70) 100 09/18/19 12:51 59 14 40 I&O Intake and Output 09/18/19 09/19/19 19:00 07:00 Intake Total 1000 ml 820 ml Output Total 600 ml 580 ml Balance 400 ml 240 ml Intake Free Water 100 ml 50 ml Tube Feeding 660 ml 720 ml Other 240 ml 50 ml Output Urine Total 600 ml 580 ml Dressing: other Wound: other Drains: other Cardiovascular: RSR Respiratory: decreased breath sounds Abdomen: soft, non-tender, present bowel sounds Extremities: no tenderness, no cyanosis, other Laboratory Tests Test 09/19/19 03:45 09/19/19 04:00 White Blood Count 8.3 K/UL (4.8-10.8) Red Blood Count 3.19 M/UL (4.70-6.10) L Hemoglobin 8.4 G/DL (14.2-18.0) L Hematocrit 26.5 % (42.0-52.0) L Mean Corpuscular Volume 83 FL (80-99) Mean Corpuscular Hemoglobin 26.5 PG (27.0-31.0) L Mean Corpuscular Hemoglobin Concent 31.8 G/DL (32.0-36.0) L Red Cell Distribution Width 18.6 % (11.6-14.8) H Platelet Count 431 K/UL (150-450) Mean Platelet Volume 6.0 FL (6.5-10.1) L Neutrophils (%) (Auto) 71.7 % (45.0-75.0) Lymphocytes (%) (Auto) 17.2 % (20.0-45.0) L Monocytes (%) (Auto) 6.9 % (1.0-10.0) Eosinophils (%) (Auto) 3.5 % (0.0-3.0) H Basophils (%) (Auto) 0.8 % (0.0-2.0) Sodium Level 144 MMOL/L (136-145) Potassium Level 4.4 MMOL/L (3.5-5.1) Chloride Level 108 MMOL/L (98-107) H Carbon Dioxide Level 29 MMOL/L (21-32) Blood Urea Nitrogen 20 mg/dL (7-18) H Creatinine 0.9 MG/DL (0.55-1.30) Estimat Glomerular Filtration Rate > 60 mL/min (>60) Glucose Level 112 MG/DL (74-106) H Calcium Level 8.6 MG/DL (8.5-10.1) Phosphorus Level 3.1 MG/DL (2.5-4.9) Magnesium Level 2.0 MG/DL (1.8-2.4) Total Bilirubin 0.2 MG/DL (0.2-1.0) Aspartate Amino Transf (AST/SGOT) 33 U/L (15-37) Alanine Aminotransferase (ALT/SGPT) 40 U/L (12-78) Alkaline Phosphatase 146 U/L (46-116) H C-Reactive Protein, Quantitative 6.8 mg/dL (0.00-0.90) H Pro-B-Type Natriuretic Peptide 527 pg/mL (0-125) H Total Protein 7.3 G/DL (6.4-8.2) Albumin 1.8 G/DL (3.4-5.0) L Globulin 5.5 g/dL Albumin/Globulin Ratio 0.3 (1.0-2.7) L Arterial Blood pH 7.412 (7.350-7.450) Arterial Blood Partial Pressure CO2 51.6 mmHg (35.0-45.0) H Arterial Blood Partial Pressure O2 114.6 mmHg (75.0-100.0) H Arterial Blood HCO3 32.1 mmol/L (22.0-26.0) H Arterial Blood Oxygen Saturation 98.0 % (95-100) Arterial Blood Base Excess 6.6 (-2-2) H Watson Test Positive Plan Problems: (1) UTI (urinary tract infection) (2) Acute respiratory failure Assessment & Plan: There is infiltrate suspected in the right perihilar region obscuring the right hilum. There is a hazy opacity that may partially be accounted for by pleural fluid on the right. Reticular densities are present on the left in the perihilar aspect of the lung. Endotracheal tube is in good position just above the anselmo. Heart size is normal. IMPRESSION: Suspected perihilar airspace disease in the right lung suspicious for pneumonia. Reticular nodular infiltrate in the left lung noted also. Right pleural effusion suspected. Endotracheal tube in good position cont vents support Lungs: Similar bilateral interstitial prominence, greater on the right. Stable right perihilar, mid and lower lung opacities. Similar left lung base opacity. Pleural space: Small left pleural effusion is stable. Loculated right pleural effusion is stable. No pneumothorax. Heart: Unremarkable. No cardiomegaly. Mediastinum: Unremarkable. Bones/joints: Unremarkable. Tubes, lines and devices: Endotracheal tube has been pulled back and is 10 cm above the anselmo near the thoracic inlet. IMPRESSION: Endotracheal tube has been pulled back and is 10 cm above the anselmo near the thoracic inlet. Remainder findings are stable. may need thoracentesis soon (3) Sepsis Assessment & Plan: Pt cachetic and presented on admission with multiple pressure injuries. Partial thickness pressure injury Cleft of L ear(L)1.2cm x (W)0.4cm. Base of wound moist and viable with small amt sanguineous exudate. Partial thickness pressure injury cleft of R ear(L)0.5cm x (W)0.7cm. Base of wound moist and viable Periwound erythematous.Small amt sanguineous exudate noted. Sacral DTPI(L)5cm x (W)10.5cm. Base of injury is purple with maroon borders. Coccygeal bony protrusion with darker skin tone, and small opening noted to R gluteus (L)0.5cm x (W)0.5cm within base of injury. No further skin breakdown periwound. Intact blood blister noted to R 1st metatarsal head(L)1.1cm x (W)2.5cm. DTPI noted to L heel extending into plantar aspect. Base of injury presents as an intact blood filled blister. Periwound is boggy with non-blanching erythema. R heel is boggy but blanchable. wounds unlikely etiology of sepsis respiratory but given current condition high risk for breakdown and worsening will monitor closely discussed with RN and staff great care being provided Tx.Plan: Apply Betadine to clefts of R and L ears. Pad oxygen tubing with gauze and keep oxygen tubing loose. Apply Moisture Barrier Paste to Sacrum. Cover with Optifoam drsg. Change every 3 days and prn. Apply Betadine to L heel. Cover with Optifoam drsg. Change every 3 days and prn. Apply Betadine to R 1st metatarsal head. Cover with Optifoam drsg. Change every 3 days and prn. Apply Cavilon Skin Barrier R heel. Cover with Optifoam drsg. Change every 7 days and prn. Reposition at least every 2hours or as tolerated. Off-load heels with pillow. (4) Severe anemia (5) Nosocomial pneumonia (6) Atrial fibrillation (7) Acute metabolic encephalopathy (8) History of CVA (cerebrovascular accident) (9) Diabetes mellitus (10) Hypothyroidism (11) Alzheimer's dementia (12) PVC (premature ventricular contraction) (13) Hypertension (14) Squamous cell esophageal cancer (15) Feeding by G-tube (16) Dehydration (17) Anemia (18) Severe malnutrition Assessment & Plan: Pt cachetic and presented on admission with multiple pressure injuries. Partial thickness pressure injury Cleft of L ear(L)1.2cm x (W )0.4cm. Base of wound moist and viable with small amt sanguineous exudate. Partial thickness pressure injury cleft of R ear(L)0.5cm x (W)0.7cm. Base of wound moist and viable Periwound erythematous.Small amt sanguineous exudate noted. Sacral DTPI(L)5cm x (W)10.5cm. Base of injury is purple with maroon borders. Coccygeal bony protrusion with darker skin tone, and small opening noted to R gluteus (L)0.5cm x (W)0.5cm within base of injury. No further skin breakdown periwound. Intact blood blister noted to R 1st metatarsal head(L)1.1cm x (W)2.5cm. DTPI noted to L heel extending into plantar aspect. Base of injury presents as an intact blood filled blister. Periwound is boggy with non-blanching erythema. R heel is boggy but blanchable. Tx.Plan: Apply Betadine to clefts of R and L ears. Pad oxygen tubing with gauze and keep oxygen tubing loose. Apply Moisture Barrier Paste to Sacrum. Cover with Optifoam drsg. Change every 3 days and prn. Apply Betadine to L heel. Cover with Optifoam drsg. Change every 3 days and prn. Apply Betadine to R 1st metatarsal head. Cover with Optifoam drsg. Change every 3 days and prn. Apply Cavilon Skin Barrier R heel. Cover with Optifoam drsg. Change every 7 days and prn. Reposition at least every 2hours or as tolerated. Off-load heels with pillow. (19) Encounter for PEG (percutaneous endoscopic gastrostomy) (20) At high risk for aspiration (21) Pleural effusion (22) Suspected COVID-19 virus infection Jan Mora Sep 19, 2019 12:20
--- NOTE | 2019-09-19 12:22 | Pulmonolgy Critical Care Note ---
Critical Care - Asmt/Plan Problems: (1) Acute respiratory failure (2) Pleural effusion (3) Suspected COVID-19 virus infection (4) Nosocomial pneumonia (5) Sepsis (6) Diabetes mellitus (7) At high risk for aspiration (8) Severe malnutrition (9) Feeding by G-tube (10) Squamous cell esophageal cancer (11) Alzheimer's dementia (12) History of CVA (cerebrovascular accident) Respiratory: monitor respiratory rate, adjust FIO2, CXR, other - thoracenteisis for large pleural effusion Cardiac: continue pressors, continue to monitor HR/BP Renal: F/U I&O, check electrolytes Infectious Disease: check cultures Gastrointestinal: continue feedings/current rate Hematologic: monitor H/H Neurologic: PRN Ativan Prophylaxis: Heparin Notes Reviewed: parts professional, 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 with: nurses, consultants, family caseworkerit program manager - Objective Last 24 Hour Vital Signs Date Time Temp Pulse Resp B/P (MAP) Pulse Ox O2 Delivery O2 Flow Rate FiO2 09/19/19 11:29 100 09/19/19 11:24 62 18 70 09/19/19 10:00 65 14 127/59 (81) 100 09/19/19 09:00 73 22 137/57 (83) 100 09/19/19 09:00 75 183/55 09/19/19 08:50 69 20 70 09/19/19 08:49 66 14 100 Mechanical Ventilator 40 09/19/19 08:00 99.2 90 26 183/55 (97) 100 09/19/19 08:00 74 09/19/19 08:00 70 09/19/19 08:00 Mechanical Ventilator 09/19/19 07:45 74 22 40 09/19/19 07:00 73 20 158/70 (99) 95 71 09/19/19 06:30 75 20 09/19/19 06:00 69 20 140/69 (92) 98 71 09/19/19 05:00 72 17 142/55 (84) 100 71 09/19/19 04:00 68 09/19/19 04:00 40 09/19/19 04:00 Mechanical Ventilator 09/19/19 04:00 71 24 146/58 (87) 100 71 09/19/19 03:10 64 20 40 09/19/19 03:00 62 15 136/59 (84) 100 62 09/19/19 02:00 66 16 141/55 (83) 100 66 09/19/19 01:00 57 16 130/52 (78) 98 64 09/19/19 00:00 98.5 56 14 121/54 (76) 100 56 09/19/19 00:00 40 09/19/19 00:00 58 09/19/19 00:00 Mechanical Ventilator 09/18/19 23:00 64 25 119/47 (71) 100 64 09/18/19 22:30 65 20 40 09/18/19 22:00 62 14 106/53 (70) 98 74 09/18/19 21:00 98.5 79 21 171/66 (101) 47 70 09/18/19 20:00 Mechanical Ventilator 09/18/19 20:00 66 20 152/50 (84) 99 70 09/18/19 20:00 66 09/18/19 20:00 40 09/18/19 19:05 68 24 40 09/18/19 19:00 66 16 148/49 (82) 100 09/18/19 18:00 71 20 137/57 (83) 100 09/18/19 17:33 61 132/54 09/18/19 17:00 61 14 132/54 (80) 100 09/18/19 16:27 62 14 40 09/18/19 16:00 Mechanical Ventilator 09/18/19 16:00 40 09/18/19 16:00 60 09/18/19 16:00 98.7 61 14 158/52 (87) 100 09/18/19 15:00 60 14 152/59 (90) 100 09/18/19 14:00 64 14 126/60 (82) 100 09/18/19 13:00 62 14 125/43 (70) 100 09/18/19 12:51 59 14 40 Status: sedated HEENT: atraumatic Lungs: rales, rhonchi Heart: HR/BP stable Abdomen: soft, feeding tube Extremities: no C/C/E Critical Care - Subjective ROS Limited/Unobtainable: No Condition: critical EKG Rhythm: Sinus Rhythm FI02: 70 Vent Support Breath Rate: 14 Vent Support Mode: AC Vent Tidal Volume: 550 Sputum Amount: Small PEEP: 5.0 PIP: 50 Tube Feeding Amount: 60 I&O: Intake and Output 09/18/19 09/19/19 19:00 07:00 Intake Total 1000 ml 820 ml Output Total 600 ml 580 ml Balance 400 ml 240 ml Intake Free Water 100 ml 50 ml Tube Feeding 660 ml 720 ml Other 240 ml 50 ml Output Urine Total 600 ml 580 ml CXR: no change ET-Tube: 7.5 ET Position: 23 Labs: Laboratory Tests Test 09/19/19 03:45 09/19/19 04:00 White Blood Count 8.3 K/UL (4.8-10.8) Red Blood Count 3.19 M/UL (4.70-6.10) L Hemoglobin 8.4 G/DL (14.2-18.0) L Hematocrit 26.5 % (42.0-52.0) L Mean Corpuscular Volume 83 FL (80-99) Mean Corpuscular Hemoglobin 26.5 PG (27.0-31.0) L Mean Corpuscular Hemoglobin Concent 31.8 G/DL (32.0-36.0) L Red Cell Distribution Width 18.6 % (11.6-14.8) H Platelet Count 431 K/UL (150-450) Mean Platelet Volume 6.0 FL (6.5-10.1) L Neutrophils (%) (Auto) 71.7 % (45.0-75.0) Lymphocytes (%) (Auto) 17.2 % (20.0-45.0) L Monocytes (%) (Auto) 6.9 % (1.0-10.0) Eosinophils (%) (Auto) 3.5 % (0.0-3.0) H Basophils (%) (Auto) 0.8 % (0.0-2.0) Sodium Level 144 MMOL/L (136-145) Potassium Level 4.4 MMOL/L (3.5-5.1) Chloride Level 108 MMOL/L (98-107) H Carbon Dioxide Level 29 MMOL/L (21-32) Blood Urea Nitrogen 20 mg/dL (7-18) H Creatinine 0.9 MG/DL (0.55-1.30) Estimat Glomerular Filtration Rate > 60 mL/min (>60) Glucose Level 112 MG/DL (74-106) H Calcium Level 8.6 MG/DL (8.5-10.1) Phosphorus Level 3.1 MG/DL (2.5-4.9) Magnesium Level 2.0 MG/DL (1.8-2.4) Total Bilirubin 0.2 MG/DL (0.2-1.0) Aspartate Amino Transf (AST/SGOT) 33 U/L (15-37) Alanine Aminotransferase (ALT/SGPT) 40 U/L (12-78) Alkaline Phosphatase 146 U/L (46-116) H C-Reactive Protein, Quantitative 6.8 mg/dL (0.00-0.90) H Pro-B-Type Natriuretic Peptide 527 pg/mL (0-125) H Total Protein 7.3 G/DL (6.4-8.2) Albumin 1.8 G/DL (3.4-5.0) L Globulin 5.5 g/dL Albumin/Globulin Ratio 0.3 (1.0-2.7) L Arterial Blood pH 7.412 (7.350-7.450) Arterial Blood Partial Pressure CO2 51.6 mmHg (35.0-45.0) H Arterial Blood Partial Pressure O2 114.6 mmHg (75.0-100.0) H Arterial Blood HCO3 32.1 mmol/L (22.0-26.0) H Arterial Blood Oxygen Saturation 98.0 % (95-100) Arterial Blood Base Excess 6.6 (-2-2) H Watson Test Positive Vania Hui MD Sep 19, 2019 12:22
--- NOTE | 2019-09-19 14:59 | Pre-Procedure Note/Attestation ---
Pre-Procedure Note/Attestation Complete Prior to Procedure Planned Procedure: right Procedure Narrative: thoracentesis Indications for Procedure Pre-Operative Diagnosis: pleural effusion Attestation I attest that I discussed the nature of the procedure; its benefits; risks and complications; and alternatives (and the risks and benefits of such alternatives ), prior to the procedure, with the patient (or the patient's legal labor representative). I attest that, if there was a reasonable possibility of needing a blood transfusion, the patient (or the patient's legal labor representative) was given the [facility] standardized written summary, pursuant to the [place] Blood Safety Act ([place] Health and Safety Code # 1645, as amended). I attest that I re-evaluated the patient just prior to the surgery and that there has been no change in the patient's H&P, except as documented below: Discussed by phone with Janice Ryder at 1400 Yaniv Pantoja MD Sep 19, 2019 14:59
--- NOTE | 2019-09-19 15:18 | Diagnostic Imaging Report ---
Indication: Malpositioned endotracheal tube Technique: One view of the chest Comparison: 4 hours earlier Findings: Essentially unchanged position of endotracheal tube, tip projected just below the expected level of the vocal cords. The right lung appears somewhat better aerated than on the prior exam, but there is still a massive right pleural effusion. Generalized interstitial edema and left perihilar consolidation persists. There is probably a small left pleural effusion. Impression: Essentially unchanged and high position of endotracheal tube. Slightly improved right lung aeration but still massive right pleural effusion Persistent bilateral interstitial and airspace edema versus infiltrates
--- NOTE | 2019-09-19 15:42 | Diagnostic Imaging Report ---
Indications: Pleural effusion Technique: Ultrasound used to localize optimal puncture site. Sterile prepping and draping right chest. Local anesthesia with 1% lidocaine. Under real-time ultrasound guidance, puncture pleural space using thoracentesis needle. Stylet removed. Catheter placed to vacuum bottle suction. Total 2050 milliliters of fluid aspirated. Patient tolerated procedure well, without immediate complication. A specimen was sent to the lab Findings: Followup sonography demonstrates a small amount of residual pleural fluid Impression: Successful ultrasound-guided thoracentesis, yielding 2050 milliliters of fluid
--- NOTE | 2019-09-19 16:47 | Diagnostic Imaging Report ---
Indication: Status post thoracentesis Technique: One view of the chest Comparison: 3 hours earlier Findings: Interim near complete resolution of previously demonstrated right pleural effusion. No pneumothorax. Hazy interstitial and airspace disease is seen throughout both lungs, may be slightly increased from the prior exam. There appears to be increased pleural fluid on the left. Persistent high position of endotracheal tube. Tip projecting just below the level of vocal cords. Impression: Markedly decreased right pleural effusion, status post large volume thoracentesis. No radiographically evident complication Increasing interstitial and airspace edema and left pleural effusion
--- NOTE | 2019-09-19 18:33 | Emergency Room Report ---
History of Present Illness General Chief Complaint: Upper Respiratory Illness Source: Medical Record, PMD Present Illness Allergies: Coded Allergies: PENICILLINS (Verified Allergy, Unknown, 10/27/18) tolretas cephalosporins COVID-19 Screening Contact w/high risk pt: No Recent Travel to affected area: No Experienced COVID-19 symptoms?: Yes COVID-19 symptoms experienced: Shortness of Breath, Cough Nursing Documentation-PMH Past Medical History Deferred: Pt Cognitively Impaired Hx Cardiac Problems: Yes Hx Hypertension: Yes Hx COPD: Yes - RESP FAILURE Hx Diabetes: Yes Hx Cancer: No Hx Gastrointestinal Problems: Yes - G TUBE History Of Psychiatric Problem: Yes - DEPRESSIVE Hx Neurological Problems: Yes Hx Cerebrovascular Accident: Yes Hx Dementia: Yes Physical Exam Vital Signs Date Time Temp Pulse Resp B/P (MAP) Pulse Ox O2 Delivery O2 Flow Rate FiO2 09/15/19 07:00 58 20 155/64 (94) 100 09/15/19 07:07 40 09/15/19 08:00 97.7 09/15/19 08:00 Mechanical Ventilator Medical Decision Making Diagnostic Impression: Primary Impression: Pleural effusion Additional Impressions: Nosocomial pneumonia Sepsis UTI (urinary tract infection) ER Course I was called to evaluate this patient in the ICU. Patient self extubated. Patien admitted for large pleural effusion. Patient COVID negative. When I evaluated patient at bedside he was resting comfortably. On nonrebreather with 100% saturation. No tachypnea. No accessory muscle movement. Underwent thoracentesis today where 2 L of fluid were removed. At this point clinically I do not believe patient requires emergent intubation. To observe at this point. Get an ABG. Will reevaluate if required Last Vital Signs Date Time Temp Pulse Resp B/P (MAP) Pulse Ox O2 Delivery O2 Flow Rate FiO2 09/19/19 17:45 68 135/46 09/19/19 16:00 90 09/19/19 15:02 19 09/19/19 15:00 100 09/19/19 12:00 Mechanical Ventilator 09/19/19 12:00 99.4 Status: improved Disposition: ADMITTED INPATIENT Condition: Critical Referrals: Vania Hui MD (PCP) Daniel Ramirez MD Sep 19, 2019 18:33
--- NOTE | 2019-09-19 18:40 | Internal Med Progress Note ---
Subjective Date of Service: Sep 19, 2019 Physician Name NiurkaXander Attending Physician Lamont Hayes MD Current Medications Medications (Trade) Dose Ordered Sig/Kike Route PRN Reason Start Time Stop Time Status Last Admin Dose Admin Acetaminophen (Tylenol) 650 mg Q4H PRN ORAL fever 09/09/19 04:30 10/07/19 04:29 Albuterol/ Ipratropium (Albuterol/ Ipratropium) 3 ml Q4H PRN HHN sob 09/17/19 08:30 09/22/19 08:29 Amlodipine Besylate (Norvasc) 5 mg BID ORAL 09/16/19 18:00 10/07/19 08:59 09/19/19 17:45 Cefepime HCl 2 gm/ Dextrose 55 ml @ 110 mls/hr Q24H IV 09/19/19 11:00 09/20/19 11:29 09/19/19 11:23 Heparin Sodium (Porcine) (Heparin 5000 units/ml) 5,000 units EVERY 12 HOURS SUBQ 09/09/19 09:00 10/22/19 08:59 09/19/19 09:01 Hydralazine HCl (Apresoline) 10 mg Q4H PRN IV sbp more than 160 09/16/19 11:16 12/15/19 11:15 Levothyroxine Sodium (Synthroid) 75 mcg DAILY@0630 ORAL 09/12/19 06:30 10/07/19 08:29 09/19/19 06:44 Lorazepam (Ativan 2mg/ml 1ml) 1 mg Q4H PRN IV For Anxiety 09/17/19 07:45 09/24/19 07:44 Mirtazapine (Remeron) 7.5 mg BEDTIME ORAL 09/09/19 21:00 12/06/19 20:59 09/18/19 21:22 Nitroglycerin (Ntg) 0.4 mg Q5M PRN SL Prn Chest Pain 09/09/19 04:30 10/07/19 04:29 Ondansetron HCl (Zofran) 4 mg Q6H PRN IVP Nausea & Vomiting 09/09/19 04:30 10/07/19 04:29 09/18/19 02:10 Pantoprazole (Protonix) 40 mg Q12HR IVP 09/11/19 21:00 10/10/19 08:59 09/19/19 09:00 Polyethylene Glycol (Miralax) 17 gm DAILYPRN PRN ORAL Constipation 09/09/19 04:30 10/07/19 04:29 Promethazine HCl/ Codeine (Phenergan with Codeine) 5 ml Q4H PRN ORAL For Cough 09/09/19 04:30 10/07/19 04:29 Quetiapine Fumarate (SEROqueL) 25 mg Q8H PRN NG Agitation 09/15/19 13:15 10/30/19 13:14 Allergies: Coded Allergies: PENICILLINS (Verified Allergy, Unknown, 10/27/18) tolretas cephalosporins ROS Limited/Unobtainable: Yes Subjective 84 YO M admitted with cough and congestion. Now right pleural effusion and pneumonia. Cover for Int Med-Dr Hayes. ICU. Intubated and sedated Objective Last Vital Signs Date Time Temp Pulse Resp B/P (MAP) Pulse Ox O2 Delivery O2 Flow Rate FiO2 09/19/19 17:45 68 135/46 09/19/19 16:00 90 09/19/19 15:02 19 09/19/19 15:00 100 09/19/19 12:00 Mechanical Ventilator 09/19/19 12:00 99.4 Laboratory Tests Test 09/19/19 03:45 09/19/19 04:00 09/19/19 14:40 09/19/19 15:50 White Blood Count 8.3 K/UL (4.8-10.8) Red Blood Count 3.19 M/UL (4.70-6.10) L Hemoglobin 8.4 G/DL (14.2-18.0) L Hematocrit 26.5 % (42.0-52.0) L Mean Corpuscular Volume 83 FL (80-99) Mean Corpuscular Hemoglobin 26.5 PG (27.0-31.0) L Mean Corpuscular Hemoglobin Concent 31.8 G/DL (32.0-36.0) L Red Cell Distribution Width 18.6 % (11.6-14.8) H Platelet Count 431 K/UL (150-450) Mean Platelet Volume 6.0 FL (6.5-10.1) L Neutrophils (%) (Auto) 71.7 % (45.0-75.0) Lymphocytes (%) (Auto) 17.2 % (20.0-45.0) L Monocytes (%) (Auto) 6.9 % (1.0-10.0) Eosinophils (%) (Auto) 3.5 % (0.0-3.0) H Basophils (%) (Auto) 0.8 % (0.0-2.0) Sodium Level 144 MMOL/L (136-145) Potassium Level 4.4 MMOL/L (3.5-5.1) Chloride Level 108 MMOL/L (98-107) H Carbon Dioxide Level 29 MMOL/L (21-32) Blood Urea Nitrogen 20 mg/dL (7-18) H Creatinine 0.9 MG/DL (0.55-1.30) Estimat Glomerular Filtration Rate > 60 mL/min (>60) Glucose Level 112 MG/DL (74-106) H Calcium Level 8.6 MG/DL (8.5-10.1) Phosphorus Level 3.1 MG/DL (2.5-4.9) Magnesium Level 2.0 MG/DL (1.8-2.4) Total Bilirubin 0.2 MG/DL (0.2-1.0) Aspartate Amino Transf (AST/SGOT) 33 U/L (15-37) Alanine Aminotransferase (ALT/SGPT) 40 U/L (12-78) Alkaline Phosphatase 146 U/L (46-116) H C-Reactive Protein, Quantitative 6.8 mg/dL (0.00-0.90) H Pro-B-Type Natriuretic Peptide 527 pg/mL (0-125) H Total Protein 7.3 G/DL (6.4-8.2) Albumin 1.8 G/DL (3.4-5.0) L Globulin 5.5 g/dL Albumin/Globulin Ratio 0.3 (1.0-2.7) L Arterial Blood pH 7.412 (7.350-7.450) Arterial Blood Partial Pressure CO2 51.6 mmHg (35.0-45.0) H Arterial Blood Partial Pressure O2 114.6 mmHg (75.0-100.0) H Arterial Blood HCO3 32.1 mmol/L (22.0-26.0) H Arterial Blood Oxygen Saturation 98.0 % (95-100) Arterial Blood Base Excess 6.6 (-2-2) H Watson Test Positive Body Fluid Source Pleural Body Fluid Volume 24 mL Body Fluid Appearance Hazy (Clear) Body Fluid RBC 220 /CUMM Body Fluid Total Nucleated Cells 1260 /CUMM Body Fluid Polynuclear WBCs (%) 8 % Body Fluid Mononuclear WBCs (%) 87 % Body Fluid Mesothelial Cells (%) 5 % Body Fluid Glucose Pending Body Fluid Total Protein Pending Body Fluid Albumin Pending Prothrombin Time 10.8 SEC (9.30-11.50) Prothromb Time International Ratio 1.0 (0.9-1.1) Activated Partial Thromboplast Time 31 SEC (23-33) Intake and Output 09/18/19 09/19/19 19:00 07:00 Intake Total 1000 ml 820 ml Output Total 600 ml 580 ml Balance 400 ml 240 ml Intake Free Water 100 ml 50 ml Tube Feeding 660 ml 720 ml Other 240 ml 50 ml Output Urine Total 600 ml 580 ml Objective PHYSICAL EXAMINATION: GENERAL: The patient is a thin-appearing male, in no apparent distress. HEENT: Eyes, pupils are equal and responsive to light and accommodation. Extraocular movements are intact. NECK: Supple without lymphadenopathy. CHEST: Mech vent; Lungs are clear to auscultation bilaterally with decreased breath sounds on the right. There are no wheezes appreciated. ABDOMEN: Soft, nontender, and nondistended. Positive bowel sounds. No evidence of hepatosplenomegaly. Currently, no rebound or guarding noted. EXTREMITIES: Negative for clubbing, cyanosis, or edema. RECTAL/GENITAL: Not performed. NEUROLOGIC: Cranial nerves II through XII are grossly intact without focal deficits. Assessment/Plan Assessment/Plan ASSESSMENT: This is an 84-year-old male with: 1. Possible right pneumonia=pseudamonas 2. Urinary tract infection=jennifer 3. Right pleural effusion. 4. Esophageal mass. 5. Dysphagia. 6. Diabetes. 7. Alzheimer's dementia. 8. Cerebrovascular disease. 9. Hypothyroidism. 10. Seizure disorder. 11. Iron deficiency anemia. TREATMENT: 1. Right perihilar Pneumonia/pleural effusion. COVID 19 and Influenza negative. A Pulmonary consultation has been obtained with Dr. Vanai Hui. The patient underwent thoracentesis during previous hospitalization. We will follow recommendation of Pulmonary. Continue vanco and cefepime per ID=Dr Matias ABX= cefepime 2. Urinary tract infection. . A urine culture =jennifer 3. Right pleural effusion. As above, a Pulmonary consultation has been obtained with Dr. Vania Hui. The patient may require thoracentesis during this hospitalization. 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 A Gastroenterology consultation has been obtained with Dr. Darrick Rosario. 5. Dysphagia. The patient is status post PEG placement on 08/08/[address] [facility] by Dr. Darrick Rosario. 6. Diabetes type 2. A NovoLog sliding scale has been instituted. 7. Alzheimer's dementia. 8. Cerebrovascular disease, status post cerebrovascular accident. 9. Hypothyroidism. Continue levothyroxine as above. 10. Seizure disorder. 11. Iron deficiency anemia. 12. Right thoracentesis scheduled 09/20/19 Xander Bah MD Sep 19, 2019 18:40
[2019-09-20] VITALS (24 sets, daily range): BP systolic 112–164; BP diastolic 39–87
[2019-09-20 05:40] LABS: BASOPHILS % (AUTO) 1.2 % (0.0-2.0); EOSINOPHILS % (AUTO) 4.3 % (0.0-3.0); HEMATOCRIT 29.2 % (42.0-52.0); HEMOGLOBIN 9.4 G/DL (14.2-18.0); MEAN CORPUSCULAR VOLUME 84 FL (80-99); MONOCYTES % (AUTO) 6.9 % (1.0-10.0); NEUTROPHILS % (AUTO) 67.6 % (45.0-75.0); PLATELET COUNT 474 K/UL (150-450); RED BLOOD COUNT 3.49 M/UL (4.70-6.10); RED CELL DISTRIBUTION WIDTH 18.1 % (11.6-14.8); WHITE BLOOD COUNT 6.4 K/UL (4.8-10.8)
[2019-09-20 06:21] LABS: ALANINE AMINOTRANSFERASE 29 U/L (12-78); ALBUMIN 1.8 G/DL (3.4-5.0); ALBUMIN/GLOBULIN RATIO 0.3 (1.0-2.7); ALKALINE PHOSPHATASE 139 U/L (46-116); ANION GAP 4 mmol/L (5-15); ASPARTATE AMINO TRANSFERASE 31 U/L (15-37); BILIRUBIN,TOTAL 0.3 MG/DL (0.2-1.0); BLOOD UREA NITROGEN 18 mg/dL (7-18); CARBON DIOXIDE 33 MMOL/L (21-32); CHLORIDE 105 MMOL/L (98-107); CREATININE 0.9 MG/DL (0.55-1.30); PHOSPHORUS 2.8 MG/DL (2.5-4.9); POTASSIUM 4.6 MMOL/L (3.5-5.1); SODIUM 142 MMOL/L (136-145)
[2019-09-20] MEDS: Pantoprazole Inj IVP SCH ×2 (08:52→20:51)
[2019-09-20] MEDS: Heparin 5000 units/ml inj SUBQ SCH ×2 (08:56→20:52)
--- NOTE | 2019-09-20 09:15 | Nephrology Progress Note ---
Assessment/Plan Problem List: (1) RAMAN (acute kidney injury) Assessment: Serum creatinine normalized with hydration (2) Dehydration (3) Suspected COVID-19 virus infection (4) Anemia (5) Sepsis (6) Diabetes mellitus (7) Hypothyroidism Assessment - Acute renal failure - Severe anemia - Sepsis, pneumonia, acute respiratory failure, suspected: Viewed 19 virus infection - Diabetes mellitus - Hypothyroidism - Feeding by G-tube - Squamous cell esophageal cancer - History of CVA (cerebrovascular accident) Plan Pneumonia SARS-CoV neg x2 MRSA screen pos sp cx: PSA and proteus Failing weaning from ventilator Changes Seroquel to "as needed" due to bradycardia Discontinue IV fluid Monitor renal parameters, serum creatinine Adjust electrolytes with supplements Increase Synthroid dose Avoid nephrotoxic's as possible Ventilator management Urine studies Per orders Subjective ROS Limited/Unobtainable: No Constitutional: Reports: malaise Objective Objective Last 24 Hour Vital Signs Date Time Temp Pulse Resp B/P (MAP) Pulse Ox O2 Delivery O2 Flow Rate FiO2 09/20/19 08:52 68 137/50 09/20/19 08:00 3.0 09/20/19 08:00 98.6 71 31 137/50 (79) 97 09/20/19 08:00 Nasal Cannula 3.0 09/20/19 07:00 67 20 147/75 (99) 100 09/20/19 06:23 81 20 09/20/19 06:00 76 35 154/87 (109) 89 09/20/19 05:00 63 26 164/87 (112) 98 09/20/19 04:00 84 09/20/19 04:00 98.8 62 25 161/59 (93) 100 09/20/19 04:00 Mechanical Ventilator 09/20/19 04:00 100 09/20/19 03:00 63 23 152/57 (88) 100 09/20/19 02:00 60 22 132/54 (80) 99 09/20/19 01:00 99.5 63 24 128/60 (82) 100 09/20/19 00:00 Mechanical Ventilator 09/20/19 00:00 63 09/20/19 00:00 100 09/20/19 00:00 106 09/20/19 00:00 99.5 63 24 128/60 (82) 100 09/19/19 23:00 71 25 155/58 (90) 100 09/19/19 22:00 70 25 142/47 (78) 100 09/19/19 21:09 100 Non-Rebreather 15.0 100 09/19/19 21:00 72 23 131/48 (75) 100 09/19/19 20:00 67 09/19/19 20:00 Mechanical Ventilator 09/19/19 20:00 99.0 80 22 151/50 (83) 100 09/19/19 20:00 100 09/19/19 19:00 78 29 132/70 (90) 100 09/19/19 18:47 100 09/19/19 18:00 81 26 166/60 (95) 100 09/19/19 17:45 68 135/46 09/19/19 17:00 67 18 135/46 (75) 100 09/19/19 16:00 99.2 63 14 123/51 (75) 100 09/19/19 16:00 Mechanical Ventilator 09/19/19 16:00 70 09/19/19 16:00 67 09/19/19 15:02 65 19 70 09/19/19 15:00 63 15 129/47 (74) 100 09/19/19 14:00 63 14 118/52 (74) 100 09/19/19 13:00 64 14 130/56 (80) 100 09/19/19 12:42 60 14 70 09/19/19 12:00 70 09/19/19 12:00 65 09/19/19 12:00 Mechanical Ventilator 09/19/19 12:00 99.4 62 14 119/50 (73) 100 09/19/19 11:29 100 09/19/19 11:24 62 18 70 09/19/19 11:00 59 14 117/51 (73) 100 09/19/19 10:00 65 14 127/59 (81) 100 Intake and Output 09/19/19 09/20/19 19:00 07:00 Intake Total 815 ml 710 ml Output Total 2700 ml 700 ml Balance -1885 ml 10 ml Intake Free Water 40 ml 50 ml IV Total 55 ml Tube Feeding 720 ml 660 ml Output Urine Total 650 ml 700 ml Other 2050 ml Current Medications Medications (Trade) Dose Ordered Sig/Kike Route PRN Reason Start Time Stop Time Status Last Admin Dose Admin Acetaminophen (Tylenol) 650 mg Q4H PRN ORAL fever 09/09/19 04:30 10/07/19 04:29 Albuterol/ Ipratropium (Albuterol/ Ipratropium) 3 ml Q4H PRN HHN sob 09/17/19 08:30 09/22/19 08:29 Amlodipine Besylate (Norvasc) 5 mg BID ORAL 09/16/19 18:00 10/07/19 08:59 09/20/19 08:52 Cefepime HCl 2 gm/ Dextrose 55 ml @ 110 mls/hr Q24H IV 09/19/19 11:00 09/20/19 11:29 09/19/19 11:23 Heparin Sodium (Porcine) (Heparin 5000 units/ml) 5,000 units EVERY 12 HOURS SUBQ 09/09/19 09:00 10/22/19 08:59 09/20/19 08:56 Hydralazine HCl (Apresoline) 10 mg Q4H PRN IV sbp more than 160 09/16/19 11:16 12/15/19 11:15 Levothyroxine Sodium (Synthroid) 75 mcg DAILY@0630 ORAL 09/12/19 06:30 10/07/19 08:29 09/20/19 06:16 Lorazepam (Ativan 2mg/ml 1ml) 1 mg Q4H PRN IV For Anxiety 09/17/19 07:45 09/24/19 07:44 Mirtazapine (Remeron) 7.5 mg BEDTIME ORAL 09/09/19 21:00 12/06/19 20:59 09/19/19 21:35 Nitroglycerin (Ntg) 0.4 mg Q5M PRN SL Prn Chest Pain 09/09/19 04:30 10/07/19 04:29 Ondansetron HCl (Zofran) 4 mg Q6H PRN IVP Nausea & Vomiting 09/09/19 04:30 10/07/19 04:29 09/18/19 02:10 Pantoprazole (Protonix) 40 mg Q12HR IVP 09/11/19 21:00 10/10/19 08:59 09/20/19 08:52 Polyethylene Glycol (Miralax) 17 gm DAILYPRN PRN ORAL Constipation 09/09/19 04:30 10/07/19 04:29 Promethazine HCl/ Codeine (Phenergan with Codeine) 5 ml Q4H PRN ORAL For Cough 09/09/19 04:30 10/07/19 04:29 Quetiapine Fumarate (SEROqueL) 25 mg Q8H PRN NG Agitation 09/15/19 13:15 10/30/19 13:14 Laboratory Tests 09/19/19 14:40: Body Fluid Source Pleural, Body Fluid Volume 24, Body Fluid Appearance Hazy, Body Fluid RBC 220, Body Fluid Total Nucleated Cells 1260, Body Fluid Polynuclear WBCs (%) 8, Body Fluid Mononuclear WBCs (%) 87, Body Fluid Mesothelial Cells (%) 5, Body Fluid Glucose 146, Body Fluid Total Protein 5.0, Body Fluid Albumin [Pending] 09/19/19 15:50: Prothrombin Time 10.8, Prothromb Time International Ratio 1.0, Activated Partial Thromboplast Time 31 09/20/19 04:34: White Blood Count 6.4, Red Blood Count 3.49L, Hemoglobin 9.4L, Hematocrit 29.2L , Mean Corpuscular Volume 84, Mean Corpuscular Hemoglobin 27.0, Mean Corpuscular Hemoglobin Concent 32.3, Red Cell Distribution Width 18.1H, Platelet Count 474H, Mean Platelet Volume 5.7L, Neutrophils (%) (Auto) 67.6, Lymphocytes (%) (Auto) 20.0, Monocytes (%) (Auto) 6.9, Eosinophils (%) (Auto) 4.3H, Basophils (%) (Auto) 1.2, Sodium Level 142, Potassium Level 4.6, Chloride Level 105, Carbon Dioxide Level 33H, Anion Gap 4L, Blood Urea Nitrogen 18, Creatinine 0.9, Estimat Glomerular Filtration Rate > 60, Glucose Level 95, Calcium Level 9.0, Phosphorus Level 2.8, Magnesium Level 1.9, Total Bilirubin 0.3, Aspartate Amino Transf (AST/SGOT) 31, Alanine Aminotransferase (ALT/SGPT) 29, Alkaline Phosphatase 139H, Total Protein 7.2, Albumin 1.8L, Globulin 5.4, Albumin/Globulin Ratio 0.3L 09/20/19 07:40: Arterial Blood pH 7.433, Arterial Blood Partial Pressure CO2 54.0H, Arterial Blood Partial Pressure O2 104.0H, Arterial Blood HCO3 35.3H, Arterial Blood Oxygen Saturation 97.8, Arterial Blood Base Excess 9.6*H, Watson Test Positive Height (Feet): 5 Height (Inches): 11.00 Weight (Pounds): 156 General Appearance: no apparent distress EENT: other Cardiovascular: normal rate Respiratory/Chest: decreased breath sounds Abdomen: soft Clovis Benites MD Sep 20, 2019 09:15
--- NOTE | 2019-09-20 10:57 | Diagnostic Imaging Report ---
Indication: Cough Technique: One view of the chest Comparison: 09/19/2019 Findings: Interim removal of endotracheal tube. There is increasing right pleural effusion. Left pleural effusion persists. Generalized interstitial congestion and hazy airspace disease persists. The heart size is normal. Impression: Interim extubation Increasing right pleural effusion Persistent interstitial congestion and hazy airspace disease
--- NOTE | 2019-09-20 11:12 | Infectious Diseases Prog Note ---
Assessment/Plan Assessment/Plan Afebrile No leukocytosis PNA VDRF, sp intubation 09/08, sp extubation 09/18, now on NC SARS-CoV neg x2 MRSA screen pos sp cx: PSA (hensley S) and proteus (hensley S) 09/17 CXR: Similar bilateral interstitial prominence, greater on the right.Stable right perihilar, mid and lower lung opacities. Similar left lung base opacity. Small left pleural effusion is stable. Loculated right pleural effusion is stable. No pneumothorax. CXR: Right pleural effusion, also demonstrated on prior 08/09/2019 exam, slightly increased. Hazy right lung parenchymal opacity probably represents a superimposed pleural fluid but infiltrate also possible. R pleural effusion, exudative -09/18 SP thorancetesis; removal of 2050 mL fluid; Fluid prot 5 (serum prot 7.2 ); cx NTD QTc 419 DM HTN CVA Dementia Nonverbal G tube Plan: continue cefepime # /09/09 SP vanc #4 ( Cr increased) f/u Bcx ICU care monitor temp and CBC DC COVID isolation isolation precaution per hospital protocol DW RN Thank you for this consult. [facility] will continue to follow the patient with you. Subjective Allergies: Coded Allergies: PENICILLINS (Verified Allergy, Unknown, 10/27/18) tolretas cephalosporins Subjective afebrile pt extubated last night, now on 3l NC no leukocytosis s/p R thoracentesis yesterday Objective Vital Signs Last 24 Hour Vital Signs Date Time Temp Pulse Resp B/P (MAP) Pulse Ox O2 Delivery O2 Flow Rate FiO2 09/20/19 10:00 64 29 145/53 (83) 95 09/20/19 09:00 67 29 143/47 (79) 100 09/20/19 08:52 68 137/50 09/20/19 08:00 3.0 09/20/19 08:00 74 09/20/19 08:00 98.6 71 31 137/50 (79) 97 09/20/19 08:00 Nasal Cannula 3.0 09/20/19 07:00 67 20 147/75 (99) 100 09/20/19 06:23 81 20 09/20/19 06:00 76 35 154/87 (109) 89 09/20/19 05:00 63 26 164/87 (112) 98 09/20/19 04:00 84 4/14/20 04:00 98.8 62 25 161/59 (93) 100 09/20/19 04:00 Mechanical Ventilator 09/20/19 04:00 100 09/20/19 03:00 63 23 152/57 (88) 100 09/20/19 02:00 60 22 132/54 (80) 99 09/20/19 01:00 99.5 63 24 128/60 (82) 100 09/20/19 00:00 Mechanical Ventilator 09/20/19 00:00 63 09/20/19 00:00 100 09/20/19 00:00 106 09/20/19 00:00 99.5 63 24 128/60 (82) 100 09/19/19 23:00 71 25 155/58 (90) 100 09/19/19 22:00 70 25 142/47 (78) 100 09/19/19 21:09 100 Non-Rebreather 15.0 100 09/19/19 21:00 72 23 131/48 (75) 100 09/19/19 20:00 67 09/19/19 20:00 Mechanical Ventilator 09/19/19 20:00 99.0 80 22 151/50 (83) 100 09/19/19 20:00 100 09/19/19 19:00 78 29 132/70 (90) 100 09/19/19 18:47 100 09/19/19 18:00 81 26 166/60 (95) 100 09/19/19 17:45 68 135/46 09/19/19 17:00 67 18 135/46 (75) 100 09/19/19 16:00 99.2 63 14 123/51 (75) 100 09/19/19 16:00 Mechanical Ventilator 09/19/19 16:00 70 09/19/19 16:00 67 09/19/19 15:02 65 19 70 09/19/19 15:00 63 15 129/47 (74) 100 09/19/19 14:00 63 14 118/52 (74) 100 09/19/19 13:00 64 14 130/56 (80) 100 09/19/19 12:42 60 14 70 09/19/19 12:00 70 09/19/19 12:00 65 09/19/19 12:00 Mechanical Ventilator 09/19/19 12:00 99.4 62 14 119/50 (73) 100 09/19/19 11:29 100 09/19/19 11:24 62 18 70 Height (Feet): 5 Height (Inches): 11.00 Weight (Pounds): 156 Objective Gen: NAD. well nourished HEENT: ETT. oral secretions Resp: coarse. equal chest rise. regular rate and rhythm. Abd: Soft. no TTP. nondistended. G tube site c/d/i. Neuro: opens eyes to voice and follows simple commands Microbiology Date/Time Source Procedure Growth Status 09/19/19 14:40 Ascities Fluid Gram Stain Pending Resulted 09/19/19 14:40 Ascities Fluid Body Fluid Culture - Preliminary NO GROWTH Resulted Laboratory Tests Test 09/19/19 14:40 09/19/19 15:50 09/20/19 04:34 09/20/19 07:40 Body Fluid Source Pleural Body Fluid Volume 24 mL Body Fluid Appearance Hazy (Clear) Body Fluid RBC 220 /CUMM Body Fluid Total Nucleated Cells 1260 /CUMM Body Fluid Polynuclear WBCs (%) 8 % Body Fluid Mononuclear WBCs (%) 87 % Body Fluid Mesothelial Cells (%) 5 % Body Fluid Glucose 146 mg/dL (.) Body Fluid Total Protein 5.0 g/dL (.) Body Fluid Albumin Pending Prothrombin Time 10.8 SEC (9.30-11.50) Prothromb Time International Ratio 1.0 (0.9-1.1) Activated Partial Thromboplast Time 31 SEC (23-33) White Blood Count 6.4 K/UL (4.8-10.8) Red Blood Count 3.49 M/UL (4.70-6.10) L Hemoglobin 9.4 G/DL (14.2-18.0) L Hematocrit 29.2 % (42.0-52.0) L Mean Corpuscular Volume 84 FL (80-99) Mean Corpuscular Hemoglobin 27.0 PG (27.0-31.0) Mean Corpuscular Hemoglobin Concent 32.3 G/DL (32.0-36.0) Red Cell Distribution Width 18.1 % (11.6-14.8) H Platelet Count 474 K/UL (150-450) H Mean Platelet Volume 5.7 FL (6.5-10.1) L Neutrophils (%) (Auto) 67.6 % (45.0-75.0) Lymphocytes (%) (Auto) 20.0 % (20.0-45.0) Monocytes (%) (Auto) 6.9 % (1.0-10.0) Eosinophils (%) (Auto) 4.3 % (0.0-3.0) H Basophils (%) (Auto) 1.2 % (0.0-2.0) Sodium Level 142 MMOL/L (136-145) Potassium Level 4.6 MMOL/L (3.5-5.1) Chloride Level 105 MMOL/L (98-107) Carbon Dioxide Level 33 MMOL/L (21-32) H Anion Gap 4 mmol/L (5-15) L Blood Urea Nitrogen 18 mg/dL (7-18) Creatinine 0.9 MG/DL (0.55-1.30) Estimat Glomerular Filtration Rate > 60 mL/min (>60) Glucose Level 95 MG/DL (74-106) Calcium Level 9.0 MG/DL (8.5-10.1) Phosphorus Level 2.8 MG/DL (2.5-4.9) Magnesium Level 1.9 MG/DL (1.8-2.4) Total Bilirubin 0.3 MG/DL (0.2-1.0) Aspartate Amino Transf (AST/SGOT) 31 U/L (15-37) Alanine Aminotransferase (ALT/SGPT) 29 U/L (12-78) Alkaline Phosphatase 139 U/L (46-116) H Total Protein 7.2 G/DL (6.4-8.2) Albumin 1.8 G/DL (3.4-5.0) L Globulin 5.4 g/dL Albumin/Globulin Ratio 0.3 (1.0-2.7) L Arterial Blood pH 7.433 (7.350-7.450) Arterial Blood Partial Pressure CO2 54.0 mmHg (35.0-45.0) H Arterial Blood Partial Pressure O2 104.0 mmHg (75.0-100.0) H Arterial Blood HCO3 35.3 mmol/L (22.0-26.0) H Arterial Blood Oxygen Saturation 97.8 % (95-100) Arterial Blood Base Excess 9.6 (-2-2) *H Watson Test Positive Current Medications Medications (Trade) Dose Ordered Sig/Kike Route PRN Reason Start Time Stop Time Status Last Admin Dose Admin Acetaminophen (Tylenol) 650 mg Q4H PRN ORAL fever 09/09/19 04:30 10/07/19 04:29 Albuterol/ Ipratropium (Albuterol/ Ipratropium) 3 ml Q4H PRN HHN sob 09/17/19 08:30 09/22/19 08:29 Amlodipine Besylate (Norvasc) 5 mg BID ORAL 09/16/19 18:00 10/07/19 08:59 09/20/19 08:52 Cefepime HCl 2 gm/ Dextrose 55 ml @ 110 mls/hr Q24H IV 09/19/19 11:00 09/20/19 11:29 09/19/19 11:23 Heparin Sodium (Porcine) (Heparin 5000 units/ml) 5,000 units EVERY 12 HOURS SUBQ 09/09/19 09:00 10/22/19 08:59 09/20/19 08:56 Hydralazine HCl (Apresoline) 10 mg Q4H PRN IV sbp more than 160 09/16/19 11:16 12/15/19 11:15 Levothyroxine Sodium (Synthroid) 75 mcg DAILY@0630 ORAL 09/12/19 06:30 10/07/19 08:29 09/20/19 06:16 Lorazepam (Ativan 2mg/ml 1ml) 1 mg Q4H PRN IV For Anxiety 09/17/19 07:45 09/24/19 07:44 Mirtazapine (Remeron) 7.5 mg BEDTIME ORAL 09/09/19 21:00 12/06/19 20:59 09/19/19 21:35 Nitroglycerin (Ntg) 0.4 mg Q5M PRN SL Prn Chest Pain 09/09/19 04:30 10/07/19 04:29 Ondansetron HCl (Zofran) 4 mg Q6H PRN IVP Nausea & Vomiting 09/09/19 04:30 10/07/19 04:29 09/18/19 02:10 Pantoprazole (Protonix) 40 mg Q12HR IVP 09/11/19 21:00 10/10/19 08:59 09/20/19 08:52 Polyethylene Glycol (Miralax) 17 gm DAILYPRN PRN ORAL Constipation 09/09/19 04:30 10/07/19 04:29 Promethazine HCl/ Codeine (Phenergan with Codeine) 5 ml Q4H PRN ORAL For Cough 09/09/19 04:30 10/07/19 04:29 Quetiapine Fumarate (SEROqueL) 25 mg Q8H PRN NG Agitation 09/15/19 13:15 10/30/19 13:14 Danielle Roach M.D. Sep 20, 2019 11:12
[2019-09-20] MEDS: Cefepime HCl 2 GM in D5W 55 ML IV SCH (11:17)
--- NOTE | 2019-09-20 11:53 | Pulmonolgy Critical Care Note ---
Critical Care - Asmt/Plan Problems: (1) Acute respiratory failure (2) Pleural effusion (3) Suspected COVID-19 virus infection (4) Nosocomial pneumonia (5) Sepsis (6) Squamous cell esophageal cancer (7) Diabetes mellitus (8) At high risk for aspiration (9) Severe malnutrition (10) Alzheimer's dementia (11) History of CVA (cerebrovascular accident) (12) Feeding by G-tube Respiratory: monitor respiratory rate, adjust FIO2 Cardiac: continue pressors, continue to monitor HR/BP Renal: F/U I&O, keep IV fluid Infectious Disease: check cultures, continue antibiotics Gastrointestinal: continue feedings/current rate Endocrine: monitor blood sugar Hematologic: monitor H/H, transfuse if hgb<8.5 Neurologic: PRN Ativan, PRN Morphine, keep patient comfortable Affect: PRN ativan Disposition: keep in ICU 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, 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, 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 with: nurses, consultants, 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 - Objective Last 24 Hour Vital Signs Date Time Temp Pulse Resp B/P (MAP) Pulse Ox O2 Delivery O2 Flow Rate FiO2 09/20/19 10:00 64 29 145/53 (83) 95 09/20/19 09:00 67 29 143/47 (79) 100 09/20/19 08:52 68 137/50 09/20/19 08:00 3.0 09/20/19 08:00 74 09/20/19 08:00 98.6 71 31 137/50 (79) 97 09/20/19 08:00 Nasal Cannula 3.0 09/20/19 07:00 67 20 147/75 (99) 100 09/20/19 06:23 81 20 09/20/19 06:00 76 35 154/87 (109) 89 09/20/19 05:00 63 26 164/87 (112) 98 09/20/19 04:00 84 09/20/19 04:00 98.8 62 25 161/59 (93) 100 09/20/19 04:00 Mechanical Ventilator 09/20/19 04:00 100 09/20/19 03:00 63 23 152/57 (88) 100 09/20/19 02:00 60 22 132/54 (80) 99 09/20/19 01:00 99.5 63 24 128/60 (82) 100 09/20/19 00:00 Mechanical Ventilator 09/20/19 00:00 63 09/20/19 00:00 100 09/20/19 00:00 106 09/20/19 00:00 99.5 63 24 128/60 (82) 100 09/19/19 23:00 71 25 155/58 (90) 100 09/19/19 22:00 70 25 142/47 (78) 100 09/19/19 21:09 100 Non-Rebreather 15.0 100 09/19/19 21:00 72 23 131/48 (75) 100 09/19/19 20:00 67 09/19/19 20:00 Mechanical Ventilator 09/19/19 20:00 99.0 80 22 151/50 (83) 100 09/19/19 20:00 100 09/19/19 19:00 78 29 132/70 (90) 100 09/19/19 18:47 100 09/19/19 18:00 81 26 166/60 (95) 100 09/19/19 17:45 68 135/46 09/19/19 17:00 67 18 135/46 (75) 100 09/19/19 16:00 99.2 63 14 123/51 (75) 100 09/19/19 16:00 Mechanical Ventilator 09/19/19 16:00 70 09/19/19 16:00 67 09/19/19 15:02 65 19 70 09/19/19 15:00 63 15 129/47 (74) 100 09/19/19 14:00 63 14 118/52 (74) 100 09/19/19 13:00 64 14 130/56 (80) 100 09/19/19 12:42 60 14 70 09/19/19 12:00 70 09/19/19 12:00 65 09/19/19 12:00 Mechanical Ventilator 09/19/19 12:00 99.4 62 14 119/50 (73) 100 Status: sedated Condition: critical HEENT: atraumatic, normocephalic Neck: full ROM Lungs: rales, rhonchi Heart: HR/BP stable Abdomen: soft, active bowel sounds Extremities: no C/C/E Micro: Microbiology Date/Time Source Procedure Growth Status 09/19/19 14:40 Ascities Fluid Gram Stain Pending Resulted 09/19/19 14:40 Ascities Fluid Body Fluid Culture - Preliminary NO GROWTH Resulted Critical Care - Subjective ROS Limited/Unobtainable: Yes Condition: critical EKG Rhythm: Sinus Rhythm FI02: 100 Vent Support Breath Rate: 14 Vent Support Mode: AC Vent Tidal Volume: 550 Sputum Amount: Small PEEP: 5.0 PIP: 47 Tube Feeding Amount: 60 I&O: Intake and Output 09/19/19 09/20/19 19:00 07:00 Intake Total 815 ml 770 ml Output Total 2700 ml 770 ml Balance -1885 ml 0 ml Intake Free Water 40 ml 50 ml IV Total 55 ml Tube Feeding 720 ml 720 ml Output Urine Total 650 ml 770 ml Other 2050 ml CXR: Interim extubation Increasing right pleural effusion Persistent interstitial congestion and hazy airspace disease ET-Tube: 75.0 ET Position: 23 Labs: Laboratory Tests Test 09/19/19 14:40 09/19/19 15:50 09/20/19 04:34 09/20/19 07:40 Body Fluid Source Pleural Body Fluid Volume 24 mL Body Fluid Appearance Hazy (Clear) Body Fluid RBC 220 /CUMM Body Fluid Total Nucleated Cells 1260 /CUMM Body Fluid Polynuclear WBCs (%) 8 % Body Fluid Mononuclear WBCs (%) 87 % Body Fluid Mesothelial Cells (%) 5 % Body Fluid Glucose 146 mg/dL (.) Body Fluid Total Protein 5.0 g/dL (.) Body Fluid Albumin Pending Prothrombin Time 10.8 SEC (9.30-11.50) Prothromb Time International Ratio 1.0 (0.9-1.1) Activated Partial Thromboplast Time 31 SEC (23-33) White Blood Count 6.4 K/UL (4.8-10.8) Red Blood Count 3.49 M/UL (4.70-6.10) L Hemoglobin 9.4 G/DL (14.2-18.0) L Hematocrit 29.2 % (42.0-52.0) L Mean Corpuscular Volume 84 FL (80-99) Mean Corpuscular Hemoglobin 27.0 PG (27.0-31.0) Mean Corpuscular Hemoglobin Concent 32.3 G/DL (32.0-36.0) Red Cell Distribution Width 18.1 % (11.6-14.8) H Platelet Count 474 K/UL (150-450) H Mean Platelet Volume 5.7 FL (6.5-10.1) L Neutrophils (%) (Auto) 67.6 % (45.0-75.0) Lymphocytes (%) (Auto) 20.0 % (20.0-45.0) Monocytes (%) (Auto) 6.9 % (1.0-10.0) Eosinophils (%) (Auto) 4.3 % (0.0-3.0) H Basophils (%) (Auto) 1.2 % (0.0-2.0) Sodium Level 142 MMOL/L (136-145) Potassium Level 4.6 MMOL/L (3.5-5.1) Chloride Level 105 MMOL/L (98-107) Carbon Dioxide Level 33 MMOL/L (21-32) H Anion Gap 4 mmol/L (5-15) L Blood Urea Nitrogen 18 mg/dL (7-18) Creatinine 0.9 MG/DL (0.55-1.30) Estimat Glomerular Filtration Rate > 60 mL/min (>60) Glucose Level 95 MG/DL (74-106) Calcium Level 9.0 MG/DL (8.5-10.1) Phosphorus Level 2.8 MG/DL (2.5-4.9) Magnesium Level 1.9 MG/DL (1.8-2.4) Total Bilirubin 0.3 MG/DL (0.2-1.0) Aspartate Amino Transf (AST/SGOT) 31 U/L (15-37) Alanine Aminotransferase (ALT/SGPT) 29 U/L (12-78) Alkaline Phosphatase 139 U/L (46-116) H Total Protein 7.2 G/DL (6.4-8.2) Albumin 1.8 G/DL (3.4-5.0) L Globulin 5.4 g/dL Albumin/Globulin Ratio 0.3 (1.0-2.7) L Arterial Blood pH 7.433 (7.350-7.450) Arterial Blood Partial Pressure CO2 54.0 mmHg (35.0-45.0) H Arterial Blood Partial Pressure O2 104.0 mmHg (75.0-100.0) H Arterial Blood HCO3 35.3 mmol/L (22.0-26.0) H Arterial Blood Oxygen Saturation 97.8 % (95-100) Arterial Blood Base Excess 9.6 (-2-2) *H Watson Test Positive Vania Hui MD Sep 20, 2019 11:53
--- NOTE | 2019-09-20 14:08 | Surgery Progress Note ---
Surgery Progress Note Subjective Additional Comments on 3Lnc oral secretions labs noted comfortable appearing overall Objective Last 24 Hour Vital Signs Date Time Temp Pulse Resp B/P (MAP) Pulse Ox O2 Delivery O2 Flow Rate FiO2 09/20/19 13:00 67 28 143/46 (78) 98 09/20/19 13:00 64 25 143/46 (78) 97 09/20/19 12:00 60 09/20/19 12:00 98.5 61 23 146/57 (86) 99 09/20/19 12:00 Nasal Cannula 3.0 09/20/19 12:00 3.0 09/20/19 11:00 62 25 121/43 (69) 98 09/20/19 10:00 64 29 145/53 (83) 95 09/20/19 09:00 67 29 143/47 (79) 100 09/20/19 08:52 68 137/50 09/20/19 08:00 3.0 09/20/19 08:00 74 09/20/19 08:00 98.6 71 31 137/50 (79) 97 09/20/19 08:00 Nasal Cannula 3.0 09/20/19 07:39 100 Nasal Cannula 2.0 28 09/20/19 07:00 67 20 147/75 (99) 100 09/20/19 06:23 81 20 09/20/19 06:00 76 35 154/87 (109) 89 09/20/19 05:00 63 26 164/87 (112) 98 09/20/19 04:00 84 09/20/19 04:00 98.8 62 25 161/59 (93) 100 09/20/19 04:00 Mechanical Ventilator 09/20/19 04:00 100 09/20/19 03:00 63 23 152/57 (88) 100 09/20/19 02:00 60 22 132/54 (80) 99 09/20/19 01:00 99.5 63 24 128/60 (82) 100 09/20/19 00:00 Mechanical Ventilator 09/20/19 00:00 63 09/20/19 00:00 100 09/20/19 00:00 106 09/20/19 00:00 99.5 63 24 128/60 (82) 100 09/19/19 23:00 71 25 155/58 (90) 100 09/19/19 22:00 70 25 142/47 (78) 100 09/19/19 21:09 100 Non-Rebreather 15.0 100 09/19/19 21:00 72 23 131/48 (75) 100 09/19/19 20:00 67 09/19/19 20:00 Mechanical Ventilator 09/19/19 20:00 99.0 80 22 151/50 (83) 100 09/19/19 20:00 100 09/19/19 19:00 78 29 132/70 (90) 100 09/19/19 18:47 100 09/19/19 18:00 81 26 166/60 (95) 100 09/19/19 17:45 68 135/46 09/19/19 17:00 67 18 135/46 (75) 100 09/19/19 16:00 99.2 63 14 123/51 (75) 100 09/19/19 16:00 Mechanical Ventilator 09/19/19 16:00 70 09/19/19 16:00 67 09/19/19 15:02 65 19 70 09/19/19 15:00 63 15 129/47 (74) 100 I&O Intake and Output 09/19/19 09/20/19 19:00 07:00 Intake Total 815 ml 770 ml Output Total 2700 ml 770 ml Balance -1885 ml 0 ml Intake Free Water 40 ml 50 ml IV Total 55 ml Tube Feeding 720 ml 720 ml Output Urine Total 650 ml 770 ml Other 2050 ml Dressing: saturated Wound: other Drains: other Cardiovascular: RSR Respiratory: decreased breath sounds Abdomen: soft, non-tender, present bowel sounds Extremities: no cyanosis Laboratory Tests Test 09/19/19 14:40 09/19/19 15:50 09/20/19 04:34 09/20/19 07:40 Body Fluid Source Pleural Body Fluid Volume 24 mL Body Fluid Appearance Hazy (Clear) Body Fluid RBC 220 /CUMM Body Fluid Total Nucleated Cells 1260 /CUMM Body Fluid Polynuclear WBCs (%) 8 % Body Fluid Mononuclear WBCs (%) 87 % Body Fluid Mesothelial Cells (%) 5 % Body Fluid Glucose 146 mg/dL (.) Body Fluid Total Protein 5.0 g/dL (.) Body Fluid Albumin Pending Prothrombin Time 10.8 SEC (9.30-11.50) Prothromb Time International Ratio 1.0 (0.9-1.1) Activated Partial Thromboplast Time 31 SEC (23-33) White Blood Count 6.4 K/UL (4.8-10.8) Red Blood Count 3.49 M/UL (4.70-6.10) L Hemoglobin 9.4 G/DL (14.2-18.0) L Hematocrit 29.2 % (42.0-52.0) L Mean Corpuscular Volume 84 FL (80-99) Mean Corpuscular Hemoglobin 27.0 PG (27.0-31.0) Mean Corpuscular Hemoglobin Concent 32.3 G/DL (32.0-36.0) Red Cell Distribution Width 18.1 % (11.6-14.8) H Platelet Count 474 K/UL (150-450) H Mean Platelet Volume 5.7 FL (6.5-10.1) L Neutrophils (%) (Auto) 67.6 % (45.0-75.0) Lymphocytes (%) (Auto) 20.0 % (20.0-45.0) Monocytes (%) (Auto) 6.9 % (1.0-10.0) Eosinophils (%) (Auto) 4.3 % (0.0-3.0) H Basophils (%) (Auto) 1.2 % (0.0-2.0) Sodium Level 142 MMOL/L (136-145) Potassium Level 4.6 MMOL/L (3.5-5.1) Chloride Level 105 MMOL/L (98-107) Carbon Dioxide Level 33 MMOL/L (21-32) H Anion Gap 4 mmol/L (5-15) L Blood Urea Nitrogen 18 mg/dL (7-18) Creatinine 0.9 MG/DL (0.55-1.30) Estimat Glomerular Filtration Rate > 60 mL/min (>60) Glucose Level 95 MG/DL (74-106) Calcium Level 9.0 MG/DL (8.5-10.1) Phosphorus Level 2.8 MG/DL (2.5-4.9) Magnesium Level 1.9 MG/DL (1.8-2.4) Total Bilirubin 0.3 MG/DL (0.2-1.0) Aspartate Amino Transf (AST/SGOT) 31 U/L (15-37) Alanine Aminotransferase (ALT/SGPT) 29 U/L (12-78) Alkaline Phosphatase 139 U/L (46-116) H Total Protein 7.2 G/DL (6.4-8.2) Albumin 1.8 G/DL (3.4-5.0) L Globulin 5.4 g/dL Albumin/Globulin Ratio 0.3 (1.0-2.7) L Arterial Blood pH 7.433 (7.350-7.450) Arterial Blood Partial Pressure CO2 54.0 mmHg (35.0-45.0) H Arterial Blood Partial Pressure O2 104.0 mmHg (75.0-100.0) H Arterial Blood HCO3 35.3 mmol/L (22.0-26.0) H Arterial Blood Oxygen Saturation 97.8 % (95-100) Arterial Blood Base Excess 9.6 (-2-2) *H Watson Test Positive Plan Problems: (1) UTI (urinary tract infection) (2) Acute respiratory failure Assessment & Plan: There is infiltrate suspected in the right perihilar region obscuring the right hilum. There is a hazy opacity that may partially be accounted for by pleural fluid on the right. Reticular densities are present on the left in the perihilar aspect of the lung. Endotracheal tube is in good position just above the anselmo. Heart size is normal. IMPRESSION: Suspected perihilar airspace disease in the right lung suspicious for pneumonia. Reticular nodular infiltrate in the left lung noted also. Right pleural effusion suspected. Endotracheal tube in good position cont vents support Lungs: Similar bilateral interstitial prominence, greater on the right. Stable right perihilar, mid and lower lung opacities. Similar left lung base opacity. Pleural space: Small left pleural effusion is stable. Loculated right pleural effusion is stable. No pneumothorax. Heart: Unremarkable. No cardiomegaly. Mediastinum: Unremarkable. Bones/joints: Unremarkable. Tubes, lines and devices: Endotracheal tube has been pulled back and is 10 cm above the anselmo near the thoracic inlet. IMPRESSION: Endotracheal tube has been pulled back and is 10 cm above the anselmo near the thoracic inlet. Remainder findings are stable. may need thoracentesis soon (3) Sepsis Assessment & Plan: Pt cachetic and presented on admission with multiple pressure injuries. Partial thickness pressure injury Cleft of L ear(L)1.2cm x (W)0.4cm. Base of wound moist and viable with small amt sanguineous exudate. Partial thickness pressure injury cleft of R ear(L)0.5cm x (W)0.7cm. Base of wound moist and viable Periwound erythematous.Small amt sanguineous exudate noted. Sacral DTPI(L)5cm x (W)10.5cm. Base of injury is purple with maroon borders. Coccygeal bony protrusion with darker skin tone, and small opening noted to R gluteus (L)0.5cm x (W)0.5cm within base of injury. No further skin breakdown periwound. Intact blood blister noted to R 1st metatarsal head(L)1.1cm x (W)2.5cm. DTPI noted to L heel extending into plantar aspect. Base of injury presents as an intact blood filled blister. Periwound is boggy with non-blanching erythema. R heel is boggy but blanchable. wounds unlikely etiology of sepsis respiratory but given current condition high risk for breakdown and worsening will monitor closely discussed with RN and staff great care being provided Tx.Plan: Apply Betadine to clefts of R and L ears. Pad oxygen tubing with gauze and keep oxygen tubing loose. Apply Moisture Barrier Paste to Sacrum. Cover with Optifoam drsg. Change every 3 days and prn. Apply Betadine to L heel. Cover with Optifoam drsg. Change every 3 days and prn. Apply Betadine to R 1st metatarsal head. Cover with Optifoam drsg. Change every 3 days and prn. Apply Cavilon Skin Barrier R heel. Cover with Optifoam drsg. Change every 7 days and prn. Reposition at least every 2hours or as tolerated. Off-load heels with pillow. (4) Severe anemia (5) Nosocomial pneumonia (6) Atrial fibrillation (7) Acute metabolic encephalopathy (8) History of CVA (cerebrovascular accident) (9) Diabetes mellitus (10) Hypothyroidism (11) Alzheimer's dementia (12) PVC (premature ventricular contraction) (13) Hypertension (14) Squamous cell esophageal cancer (15) Feeding by G-tube (16) Dehydration (17) Anemia (18) Severe malnutrition Assessment & Plan: Pt cachetic and presented on admission with multiple pressure injuries. Partial thickness pressure injury Cleft of L ear(L)1.2cm x (W )0.4cm. Base of wound moist and viable with small amt sanguineous exudate. Partial thickness pressure injury cleft of R ear(L)0.5cm x (W)0.7cm. Base of wound moist and viable Periwound erythematous.Small amt sanguineous exudate noted. Sacral DTPI(L)5cm x (W)10.5cm. Base of injury is purple with maroon borders. Coccygeal bony protrusion with darker skin tone, and small opening noted to R gluteus (L)0.5cm x (W)0.5cm within base of injury. No further skin breakdown periwound. Intact blood blister noted to R 1st metatarsal head(L)1.1cm x (W)2.5cm. DTPI noted to L heel extending into plantar aspect. Base of injury presents as an intact blood filled blister. Periwound is boggy with non-blanching erythema. R heel is boggy but blanchable. Tx.Plan: Apply Betadine to clefts of R and L ears. Pad oxygen tubing with gauze and keep oxygen tubing loose. Apply Moisture Barrier Paste to Sacrum. Cover with Optifoam drsg. Change every 3 days and prn. Apply Betadine to L heel. Cover with Optifoam drsg. Change every 3 days and prn. Apply Betadine to R 1st metatarsal head. Cover with Optifoam drsg. Change every 3 days and prn. Apply Cavilon Skin Barrier R heel. Cover with Optifoam drsg. Change every 7 days and prn. Reposition at least every 2hours or as tolerated. Off-load heels with pillow. (19) Encounter for PEG (percutaneous endoscopic gastrostomy) (20) At high risk for aspiration (21) Pleural effusion (22) Suspected COVID-19 virus infection Jan Mora Sep 20, 2019 14:08
--- NOTE | 2019-09-20 17:52 | Internal Med Progress Note ---
Subjective Date of Service: Sep 20, 2019 Physician Name Bah,Xander Attending Physician Lamont Hayes MD Current Medications Medications (Trade) Dose Ordered Sig/Kike Route PRN Reason Start Time Stop Time Status Last Admin Dose Admin Acetaminophen (Tylenol) 650 mg Q4H PRN ORAL fever 09/09/19 04:30 10/07/19 04:29 Albuterol/ Ipratropium (Albuterol/ Ipratropium) 3 ml Q4H PRN HHN sob 09/17/19 08:30 09/22/19 08:29 Amlodipine Besylate (Norvasc) 5 mg BID ORAL 09/16/19 18:00 10/07/19 08:59 09/20/19 17:20 Heparin Sodium (Porcine) (Heparin 5000 units/ml) 5,000 units EVERY 12 HOURS SUBQ 09/09/19 09:00 10/22/19 08:59 09/20/19 08:56 Hydralazine HCl (Apresoline) 10 mg Q4H PRN IV sbp more than 160 09/16/19 11:16 12/15/19 11:15 Levothyroxine Sodium (Synthroid) 75 mcg DAILY@0630 ORAL 09/12/19 06:30 10/07/19 08:29 09/20/19 06:16 Lorazepam (Ativan 2mg/ml 1ml) 1 mg Q4H PRN IV For Anxiety 09/17/19 07:45 09/24/19 07:44 Mirtazapine (Remeron) 7.5 mg BEDTIME ORAL 09/09/19 21:00 12/06/19 20:59 09/19/19 21:35 Nitroglycerin (Ntg) 0.4 mg Q5M PRN SL Prn Chest Pain 09/09/19 04:30 10/07/19 04:29 Ondansetron HCl (Zofran) 4 mg Q6H PRN IVP Nausea & Vomiting 09/09/19 04:30 10/07/19 04:29 09/18/19 02:10 Pantoprazole (Protonix) 40 mg Q12HR IVP 09/11/19 21:00 10/10/19 08:59 09/20/19 08:52 Polyethylene Glycol (Miralax) 17 gm DAILYPRN PRN ORAL Constipation 09/09/19 04:30 10/07/19 04:29 Promethazine HCl/ Codeine (Phenergan with Codeine) 5 ml Q4H PRN ORAL For Cough 09/09/19 04:30 10/07/19 04:29 Quetiapine Fumarate (SEROqueL) 25 mg Q8H PRN NG Agitation 09/15/19 13:15 10/30/19 13:14 Allergies: Coded Allergies: PENICILLINS (Verified Allergy, Unknown, 10/27/18) tolretas cephalosporins ROS Limited/Unobtainable: Yes Subjective 84 YO M admitted with cough and congestion. Now right pleural effusion and pneumonia. Cover for Int Med-Dr Hayes. ICU. S/P thoracentesis 09/19/19. Extubated 09/20/19 Objective Last Vital Signs Date Time Temp Pulse Resp B/P (MAP) Pulse Ox O2 Delivery O2 Flow Rate FiO2 09/20/19 17:20 60 147/49 09/20/19 17:00 27 98 09/20/19 16:00 3.0 09/20/19 16:00 Nasal Cannula 09/20/19 16:00 98.4 09/20/19 07:39 28 Laboratory Tests Test 09/20/19 04:34 09/20/19 07:40 White Blood Count 6.4 K/UL (4.8-10.8) Red Blood Count 3.49 M/UL (4.70-6.10) L Hemoglobin 9.4 G/DL (14.2-18.0) L Hematocrit 29.2 % (42.0-52.0) L Mean Corpuscular Volume 84 FL (80-99) Mean Corpuscular Hemoglobin 27.0 PG (27.0-31.0) Mean Corpuscular Hemoglobin Concent 32.3 G/DL (32.0-36.0) Red Cell Distribution Width 18.1 % (11.6-14.8) H Platelet Count 474 K/UL (150-450) H Mean Platelet Volume 5.7 FL (6.5-10.1) L Neutrophils (%) (Auto) 67.6 % (45.0-75.0) Lymphocytes (%) (Auto) 20.0 % (20.0-45.0) Monocytes (%) (Auto) 6.9 % (1.0-10.0) Eosinophils (%) (Auto) 4.3 % (0.0-3.0) H Basophils (%) (Auto) 1.2 % (0.0-2.0) Sodium Level 142 MMOL/L (136-145) Potassium Level 4.6 MMOL/L (3.5-5.1) Chloride Level 105 MMOL/L (98-107) Carbon Dioxide Level 33 MMOL/L (21-32) H Anion Gap 4 mmol/L (5-15) L Blood Urea Nitrogen 18 mg/dL (7-18) Creatinine 0.9 MG/DL (0.55-1.30) Estimat Glomerular Filtration Rate > 60 mL/min (>60) Glucose Level 95 MG/DL (74-106) Calcium Level 9.0 MG/DL (8.5-10.1) Phosphorus Level 2.8 MG/DL (2.5-4.9) Magnesium Level 1.9 MG/DL (1.8-2.4) Total Bilirubin 0.3 MG/DL (0.2-1.0) Aspartate Amino Transf (AST/SGOT) 31 U/L (15-37) Alanine Aminotransferase (ALT/SGPT) 29 U/L (12-78) Alkaline Phosphatase 139 U/L (46-116) H Total Protein 7.2 G/DL (6.4-8.2) Albumin 1.8 G/DL (3.4-5.0) L Globulin 5.4 g/dL Albumin/Globulin Ratio 0.3 (1.0-2.7) L Arterial Blood pH 7.433 (7.350-7.450) Arterial Blood Partial Pressure CO2 54.0 mmHg (35.0-45.0) H Arterial Blood Partial Pressure O2 104.0 mmHg (75.0-100.0) H Arterial Blood HCO3 35.3 mmol/L (22.0-26.0) H Arterial Blood Oxygen Saturation 97.8 % (95-100) Arterial Blood Base Excess 9.6 (-2-2) *H Watson Test Positive Microbiology Date/Time Source Procedure Growth Status 09/19/19 14:40 Ascities Fluid Gram Stain - Final Resulted 09/19/19 14:40 Ascities Fluid Body Fluid Culture - Preliminary NO GROWTH Resulted Intake and Output 09/19/19 09/20/19 19:00 07:00 Intake Total 815 ml 770 ml Output Total 2700 ml 770 ml Balance -1885 ml 0 ml Intake Free Water 40 ml 50 ml IV Total 55 ml Tube Feeding 720 ml 720 ml Output Urine Total 650 ml 770 ml Other 2050 ml Objective PHYSICAL EXAMINATION: GENERAL: The patient is a thin-appearing male, in no apparent distress. HEENT: Eyes, pupils are equal and responsive to light and accommodation. Extraocular movements are intact. NECK: Supple without lymphadenopathy. CHEST: Mech vent; Lungs are clear to auscultation bilaterally with decreased breath sounds on the right. There are no wheezes appreciated. ABDOMEN: Soft, nontender, and nondistended. Positive bowel sounds. No evidence of hepatosplenomegaly. Currently, no rebound or guarding noted. EXTREMITIES: Negative for clubbing, cyanosis, or edema. RECTAL/GENITAL: Not performed. NEUROLOGIC: Cranial nerves II through XII are grossly intact without focal deficits. Assessment/Plan Assessment/Plan ASSESSMENT: This is an 84-year-old male with: 1. Possible right pneumonia=pseudamonas 2. Urinary tract infection=jennifer 3. Right pleural effusion. 4. Esophageal mass. 5. Dysphagia. 6. Diabetes. 7. Alzheimer's dementia. 8. Cerebrovascular disease. 9. Hypothyroidism. 10. Seizure disorder. 11. Iron deficiency anemia. 13. Respiratory failure TREATMENT: 1. Right perihilar Pneumonia/pleural effusion. COVID 19 and Influenza negative. A Pulmonary consultation has been obtained with Dr. Vania Hui. S/P thoracentesis 09/19/19. We will follow recommendation of Pulmonary. Continue vanco and cefepime per ID=Dr Matias ABX= cefepime 2. Urinary tract infection. . A urine culture =jennifer 3. Right pleural effusion. As above, a Pulmonary consultation has been obtained with Dr. Vania Hui. The patient may require thoracentesis during this hospitalization. 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 A Gastroenterology consultation has been obtained with Dr. Darrick Rosario. 5. Dysphagia. The patient is status post PEG placement on 08/08/[address] [facility] [address]. Darrick Rosario. 6. Diabetes type 2. A NovoLog sliding scale has been instituted. 7. Alzheimer's dementia. 8. Cerebrovascular disease, status post cerebrovascular accident. 9. Hypothyroidism. Continue levothyroxine as above. 10. Seizure disorder. 11. Iron deficiency anemia. 12. Extubated 09/20/19 Xander Bah MD Sep 20, 2019 17:52
[2019-09-21] VITALS (24 sets, daily range): BP systolic 123–173; BP diastolic 40–100
[2019-09-21 07:20] LABS: BASOPHILS % (AUTO) 1.1 % (0.0-2.0); EOSINOPHILS % (AUTO) 5.5 % (0.0-3.0); HEMATOCRIT 31.4 % (42.0-52.0); HEMOGLOBIN 10.1 G/DL (14.2-18.0); LYMPHOCYTES % (AUTO) 23.3 % (20.0-45.0); MEAN CORPUSCULAR VOLUME 83 FL (80-99); MONOCYTES % (AUTO) 7.8 % (1.0-10.0); NEUTROPHILS % (AUTO) 62.3 % (45.0-75.0); PLATELET COUNT 572 K/UL (150-450); RED CELL DISTRIBUTION WIDTH 18.1 % (11.6-14.8); WHITE BLOOD COUNT 6.7 K/UL (4.8-10.8)
[2019-09-21 08:03] LABS: ANION GAP 8 mmol/L (5-15); BLOOD UREA NITROGEN 20 mg/dL (7-18); CALCIUM 9.1 MG/DL (8.5-10.1); CARBON DIOXIDE 31 MMOL/L (21-32); CHLORIDE 105 MMOL/L (98-107); POTASSIUM 4.7 MMOL/L (3.5-5.1); SODIUM 144 MMOL/L (136-145)
[2019-09-21] MEDS: Pantoprazole Inj IVP SCH ×2 (08:47→20:49)
[2019-09-21] MEDS: Heparin 5000 units/ml inj SUBQ SCH ×2 (08:48→20:51)
--- NOTE | 2019-09-21 09:00 | Nephrology Progress Note ---
Assessment/Plan Problem List: (1) RAMAN (acute kidney injury) Assessment: Serum creatinine normalized with hydration (2) Dehydration (3) Suspected COVID-19 virus infection (4) Anemia (5) Sepsis (6) Diabetes mellitus (7) Hypothyroidism Assessment - Acute renal failure - Severe anemia - Sepsis, pneumonia, acute respiratory failure, suspected: Viewed 19 virus infection - Diabetes mellitus - Hypothyroidism - Feeding by G-tube - Squamous cell esophageal cancer - History of CVA (cerebrovascular accident) Plan Stable from a renal standpoint of view pneumonia SARS-CoV neg x2 MRSA screen pos sp cx: PSA and proteus Now extubated on oxygen with nasal cannula Changes Seroquel to "as needed" due to bradycardia Discontinue IV fluid Monitor renal parameters, serum creatinine Adjust electrolytes with supplements Increase Synthroid dose Avoid nephrotoxic's as possible Ventilator management Urine studies Per orders Subjective ROS Limited/Unobtainable: No Constitutional: Reports: malaise, weakness Objective Objective Last 24 Hour Vital Signs Date Time Temp Pulse Resp B/P (MAP) Pulse Ox O2 Delivery O2 Flow Rate FiO2 09/21/19 08:47 71 155/79 09/21/19 06:00 84 29 156/56 (89) 96 09/21/19 05:00 85 23 173/78 (109) 93 09/21/19 04:00 82 09/21/19 04:00 98.7 81 24 155/68 (97) 92 09/21/19 04:00 3.0 09/21/19 04:00 Nasal Cannula 3.0 09/21/19 03:00 76 28 167/82 (110) 92 09/21/19 02:00 85 28 135/55 (81) 92 09/21/19 01:00 67 26 134/41 (72) 100 09/21/19 00:00 Nasal Cannula 3.0 09/21/19 00:00 3.0 09/21/19 00:00 70 09/21/19 00:00 98.8 68 24 151/59 (89) 92 09/20/19 23:00 64 24 145/52 (83) 96 09/20/19 22:00 69 27 139/55 (83) 95 09/20/19 21:00 64 27 154/65 (94) 91 09/20/19 20:00 62 09/20/19 20:00 3.0 09/20/19 20:00 60 27 112/42 (65) 95 09/20/19 20:00 Nasal Cannula 3.0 09/20/19 19:00 59 22 132/39 (70) 93 09/20/19 18:00 59 22 119/48 (71) 94 09/20/19 17:20 60 147/49 09/20/19 17:00 66 27 147/49 (81) 98 09/20/19 16:00 3.0 09/20/19 16:00 62 09/20/19 16:00 Nasal Cannula 3.0 09/20/19 16:00 98.4 63 26 126/46 (72) 99 09/20/19 15:00 62 27 146/45 (78) 98 09/20/19 14:00 65 25 146/45 (78) 94 09/20/19 13:00 67 28 143/46 (78) 98 09/20/19 13:00 64 25 143/46 (78) 97 09/20/19 12:00 60 09/20/19 12:00 98.5 61 23 146/57 (86) 99 09/20/19 12:00 Nasal Cannula 3.0 09/20/19 12:00 3.0 09/20/19 11:00 62 25 121/43 (69) 98 09/20/19 10:00 64 29 145/53 (83) 95 09/20/19 09:00 67 29 143/47 (79) 100 Intake and Output 09/20/19 09/21/19 19:00 07:00 Intake Total 770 ml 700 ml Output Total 630 ml 650 ml Balance 140 ml 50 ml Intake Free Water 50 ml 100 ml Tube Feeding 720 ml 600 ml Output Urine Total 630 ml 650 ml Laboratory Tests 09/21/19 04:45: White Blood Count 6.7, Red Blood Count 3.80L, Hemoglobin 10.1L, Hematocrit 31.4L , Mean Corpuscular Volume 83, Mean Corpuscular Hemoglobin 26.6L, Mean Corpuscular Hemoglobin Concent 32.2, Red Cell Distribution Width 18.1H, Platelet Count 572H, Mean Platelet Volume 5.6L, Neutrophils (%) (Auto) 62.3, Lymphocytes (%) (Auto) 23.3, Monocytes (%) (Auto) 7.8, Eosinophils (%) (Auto) 5.5H, Basophils (%) (Auto) 1.1, Sodium Level 144, Potassium Level 4.7, Chloride Level 105, Carbon Dioxide Level 31, Anion Gap 8, Blood Urea Nitrogen 20H, Creatinine 1.0, Estimat Glomerular Filtration Rate > 60, Glucose Level 137H, Calcium Level 9.1 Height (Feet): 5 Height (Inches): 11.00 Weight (Pounds): 150 General Appearance: no apparent distress EENT: other - Remains extubated on nasal cannula Cardiovascular: normal rate Respiratory/Chest: decreased breath sounds Abdomen: distended Clovis Benites MD Sep 21, 2019 09:00
--- NOTE | 2019-09-21 11:51 | Surgery Progress Note ---
Surgery Progress Note Subjective Additional Comments Patient resting calm in bed, no signs of distress. His open eyes, tracks with eyes, non verbal, respond to pain. on nasal cannula Objective Last 24 Hour Vital Signs Date Time Temp Pulse Resp B/P (MAP) Pulse Ox O2 Delivery O2 Flow Rate FiO2 09/21/19 11:00 76 31 160/65 (96) 98 09/21/19 10:00 68 27 140/82 (101) 97 09/21/19 09:00 70 30 137/100 (112) 100 09/21/19 08:47 71 155/79 09/21/19 08:00 98.8 77 33 155/65 (95) 99 09/21/19 08:00 Nasal Cannula 3.0 09/21/19 08:00 77 09/21/19 08:00 3.0 09/21/19 07:00 78 28 165/64 (97) 99 09/21/19 06:00 84 29 156/56 (89) 96 09/21/19 05:00 85 23 173/78 (109) 93 09/21/19 04:00 82 09/21/19 04:00 98.7 81 24 155/68 (97) 92 09/21/19 04:00 3.0 09/21/19 04:00 Nasal Cannula 3.0 09/21/19 03:00 76 28 167/82 (110) 92 09/21/19 02:00 85 28 135/55 (81) 92 09/21/19 01:00 67 26 134/41 (72) 100 09/21/19 00:00 Nasal Cannula 3.0 09/21/19 00:00 3.0 09/21/19 00:00 70 09/21/19 00:00 98.8 68 24 151/59 (89) 92 09/20/19 23:00 64 24 145/52 (83) 96 09/20/19 22:00 69 27 139/55 (83) 95 09/20/19 21:00 64 27 154/65 (94) 91 09/20/19 20:00 62 09/20/19 20:00 3.0 09/20/19 20:00 60 27 112/42 (65) 95 09/20/19 20:00 Nasal Cannula 3.0 09/20/19 19:00 59 22 132/39 (70) 93 09/20/19 18:00 59 22 119/48 (71) 94 09/20/19 17:20 60 147/49 09/20/19 17:00 66 27 147/49 (81) 98 09/20/19 16:00 3.0 09/20/19 16:00 62 09/20/19 16:00 Nasal Cannula 3.0 09/20/19 16:00 98.4 63 26 126/46 (72) 99 09/20/19 15:00 62 27 146/45 (78) 98 09/20/19 14:00 65 25 146/45 (78) 94 09/20/19 13:00 67 28 143/46 (78) 98 09/20/19 13:00 64 25 143/46 (78) 97 09/20/19 12:00 60 09/20/19 12:00 98.5 61 23 146/57 (86) 99 09/20/19 12:00 Nasal Cannula 3.0 09/20/19 12:00 3.0 I&O Intake and Output 09/20/19 09/21/19 19:00 07:00 Intake Total 770 ml 760 ml Output Total 630 ml 700 ml Balance 140 ml 60 ml Intake Free Water 50 ml 100 ml Tube Feeding 720 ml 660 ml Output Urine Total 630 ml 700 ml Dressing: saturated Wound: clean Cardiovascular: RSR Respiratory: clear, decreased breath sounds Abdomen: soft, non-tender, present bowel sounds Extremities: no tenderness, no cyanosis Laboratory Tests Test 09/21/19 04:45 White Blood Count 6.7 K/UL (4.8-10.8) Red Blood Count 3.80 M/UL (4.70-6.10) L Hemoglobin 10.1 G/DL (14.2-18.0) L Hematocrit 31.4 % (42.0-52.0) L Mean Corpuscular Volume 83 FL (80-99) Mean Corpuscular Hemoglobin 26.6 PG (27.0-31.0) L Mean Corpuscular Hemoglobin Concent 32.2 G/DL (32.0-36.0) Red Cell Distribution Width 18.1 % (11.6-14.8) H Platelet Count 572 K/UL (150-450) H Mean Platelet Volume 5.6 FL (6.5-10.1) L Neutrophils (%) (Auto) 62.3 % (45.0-75.0) Lymphocytes (%) (Auto) 23.3 % (20.0-45.0) Monocytes (%) (Auto) 7.8 % (1.0-10.0) Eosinophils (%) (Auto) 5.5 % (0.0-3.0) H Basophils (%) (Auto) 1.1 % (0.0-2.0) Sodium Level 144 MMOL/L (136-145) Potassium Level 4.7 MMOL/L (3.5-5.1) Chloride Level 105 MMOL/L (98-107) Carbon Dioxide Level 31 MMOL/L (21-32) Anion Gap 8 mmol/L (5-15) Blood Urea Nitrogen 20 mg/dL (7-18) H Creatinine 1.0 MG/DL (0.55-1.30) Estimat Glomerular Filtration Rate > 60 mL/min (>60) Glucose Level 137 MG/DL (74-106) H Calcium Level 9.1 MG/DL (8.5-10.1) Plan Problems: (1) UTI (urinary tract infection) (2) Acute respiratory failure Assessment & Plan: There is infiltrate suspected in the right perihilar region obscuring the right hilum. There is a hazy opacity that may partially be accounted for by pleural fluid on the right. Reticular densities are present on the left in the perihilar aspect of the lung. Endotracheal tube is in good position just above the anselmo. Heart size is normal. IMPRESSION: Suspected perihilar airspace disease in the right lung suspicious for pneumonia. Reticular nodular infiltrate in the left lung noted also. Right pleural effusion suspected. Endotracheal tube in good position cont vents support Lungs: Similar bilateral interstitial prominence, greater on the right. Stable right perihilar, mid and lower lung opacities. Similar left lung base opacity. Pleural space: Small left pleural effusion is stable. Loculated right pleural effusion is stable. No pneumothorax. Heart: Unremarkable. No cardiomegaly. Mediastinum: Unremarkable. Bones/joints: Unremarkable. Tubes, lines and devices: Endotracheal tube has been pulled back and is 10 cm above the anselmo near the thoracic inlet. IMPRESSION: Endotracheal tube has been pulled back and is 10 cm above the anselmo near the thoracic inlet. Remainder findings are stable. may need thoracentesis soon (3) Sepsis Assessment & Plan: Pt cachetic and presented on admission with multiple pressure injuries. Partial thickness pressure injury Cleft of L ear(L)1.2cm x (W)0.4cm. Base of wound moist and viable with small amt sanguineous exudate. Partial thickness pressure injury cleft of R ear(L)0.5cm x (W)0.7cm. Base of wound moist and viable Periwound erythematous.Small amt sanguineous exudate noted. Sacral DTPI(L)5cm x (W)10.5cm. Base of injury is purple with maroon borders. Coccygeal bony protrusion with darker skin tone, and small opening noted to R gluteus (L)0.5cm x (W)0.5cm within base of injury. No further skin breakdown periwound. Intact blood blister noted to R 1st metatarsal head(L)1.1cm x (W)2.5cm. DTPI noted to L heel extending into plantar aspect. Base of injury presents as an intact blood filled blister. Periwound is boggy with non-blanching erythema. R heel is boggy but blanchable. wounds unlikely etiology of sepsis respiratory but given current condition high risk for breakdown and worsening will monitor closely discussed with RN and staff great care being provided Tx.Plan: Apply Betadine to clefts of R and L ears. Pad oxygen tubing with gauze and keep oxygen tubing loose. Apply Moisture Barrier Paste to Sacrum. Cover with Optifoam drsg. Change every 3 days and prn. Apply Betadine to L heel. Cover with Optifoam drsg. Change every 3 days and prn. Apply Betadine to R 1st metatarsal head. Cover with Optifoam drsg. Change every 3 days and prn. Apply Cavilon Skin Barrier R heel. Cover with Optifoam drsg. Change every 7 days and prn. Reposition at least every 2hours or as tolerated. Off-load heels with pillow. (4) Severe anemia (5) Nosocomial pneumonia (6) Atrial fibrillation (7) Acute metabolic encephalopathy (8) History of CVA (cerebrovascular accident) (9) Diabetes mellitus (10) Hypothyroidism (11) Alzheimer's dementia (12) PVC (premature ventricular contraction) (13) Hypertension (14) Squamous cell esophageal cancer (15) Feeding by G-tube (16) Dehydration (17) Anemia (18) Severe malnutrition Assessment & Plan: Pt cachetic and presented on admission with multiple pressure injuries. Partial thickness pressure injury Cleft of L ear(L)1.2cm x (W )0.4cm. Base of wound moist and viable with small amt sanguineous exudate. Partial thickness pressure injury cleft of R ear(L)0.5cm x (W)0.7cm. Base of wound moist and viable Periwound erythematous.Small amt sanguineous exudate noted. Sacral DTPI(L)5cm x (W)10.5cm. Base of injury is purple with maroon borders. Coccygeal bony protrusion with darker skin tone, and small opening noted to R gluteus (L)0.5cm x (W)0.5cm within base of injury. No further skin breakdown periwound. Intact blood blister noted to R 1st metatarsal head(L)1.1cm x (W)2.5cm. DTPI noted to L heel extending into plantar aspect. Base of injury presents as an intact blood filled blister. Periwound is boggy with non-blanching erythema. R heel is boggy but blanchable. Tx.Plan: Apply Betadine to clefts of R and L ears. Pad oxygen tubing with gauze and keep oxygen tubing loose. Apply Moisture Barrier Paste to Sacrum. Cover with Optifoam drsg. Change every 3 days and prn. Apply Betadine to L heel. Cover with Optifoam drsg. Change every 3 days and prn. Apply Betadine to R 1st metatarsal head. Cover with Optifoam drsg. Change every 3 days and prn. Apply Cavilon Skin Barrier R heel. Cover with Optifoam drsg. Change every 7 days and prn. Reposition at least every 2hours or as tolerated. Off-load heels with pillow. (19) Encounter for PEG (percutaneous endoscopic gastrostomy) (20) At high risk for aspiration (21) Pleural effusion (22) Suspected COVID-19 virus infection Jan Mora Sep 21, 2019 11:51
--- NOTE | 2019-09-21 12:00 | Pulmonolgy Critical Care Note ---
Critical Care - Asmt/Plan Problems: (1) Acute respiratory failure (2) Pleural effusion (3) Suspected COVID-19 virus infection (4) Nosocomial pneumonia (5) Sepsis (6) Squamous cell esophageal cancer (7) Diabetes mellitus (8) At high risk for aspiration (9) Severe malnutrition (10) Alzheimer's dementia (11) History of CVA (cerebrovascular accident) (12) Feeding by G-tube Respiratory: monitor respiratory rate, adjust FIO2, CXR Cardiac: continue to monitor HR/BP Renal: F/U I&O, keep IV fluid, check electrolytes Infectious Disease: add antibiotics Gastrointestinal: continue feedings/current rate Endocrine: monitor blood sugar Hematologic: monitor H/H, transfuse if hgb<8.5 Neurologic: PRN Ativan, keep patient comfortable Prophylaxis: Protonix Notes Reviewed: engineer assistant, 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 with: nurses, consultants, telephonic nurse case managercombat control manager - Objective Last 24 Hour Vital Signs Date Time Temp Pulse Resp B/P (MAP) Pulse Ox O2 Delivery O2 Flow Rate FiO2 09/21/19 11:00 76 31 160/65 (96) 98 09/21/19 10:00 68 27 140/82 (101) 97 09/21/19 09:00 70 30 137/100 (112) 100 09/21/19 08:47 71 155/79 09/21/19 08:00 98.8 77 33 155/65 (95) 99 09/21/19 08:00 Nasal Cannula 3.0 09/21/19 08:00 77 09/21/19 08:00 3.0 09/21/19 07:00 78 28 165/64 (97) 99 09/21/19 06:00 84 29 156/56 (89) 96 09/21/19 05:00 85 23 173/78 (109) 93 09/21/19 04:00 82 09/21/19 04:00 98.7 81 24 155/68 (97) 92 09/21/19 04:00 3.0 09/21/19 04:00 Nasal Cannula 3.0 09/21/19 03:00 76 28 167/82 (110) 92 09/21/19 02:00 85 28 135/55 (81) 92 09/21/19 01:00 67 26 134/41 (72) 100 09/21/19 00:00 Nasal Cannula 3.0 09/21/19 00:00 3.0 09/21/19 00:00 70 09/21/19 00:00 98.8 68 24 151/59 (89) 92 09/20/19 23:00 64 24 145/52 (83) 96 09/20/19 22:00 69 27 139/55 (83) 95 09/20/19 21:00 64 27 154/65 (94) 91 09/20/19 20:00 62 09/20/19 20:00 3.0 09/20/19 20:00 60 27 112/42 (65) 95 09/20/19 20:00 Nasal Cannula 3.0 09/20/19 19:00 59 22 132/39 (70) 93 09/20/19 18:00 59 22 119/48 (71) 94 09/20/19 17:20 60 147/49 09/20/19 17:00 66 27 147/49 (81) 98 09/20/19 16:00 3.0 09/20/19 16:00 62 09/20/19 16:00 Nasal Cannula 3.0 09/20/19 16:00 98.4 63 26 126/46 (72) 99 09/20/19 15:00 62 27 146/45 (78) 98 09/20/19 14:00 65 25 146/45 (78) 94 09/20/19 13:00 67 28 143/46 (78) 98 09/20/19 13:00 64 25 143/46 (78) 97 09/20/19 12:00 60 09/20/19 12:00 98.5 61 23 146/57 (86) 99 09/20/19 12:00 Nasal Cannula 3.0 09/20/19 12:00 3.0 Status: awake Condition: critical, improving Neck: full ROM Lungs: rales, rhonchi Heart: HR/BP stable Abdomen: soft, non-tender Extremities: no C/C/E Micro: Microbiology Date/Time Source Procedure Growth Status 09/19/19 14:40 Ascities Fluid Gram Stain - Final Resulted 09/19/19 14:40 Ascities Fluid Body Fluid Culture - Preliminary NO GROWTH AFTER 24 HOURS Resulted Critical Care - Subjective FI02: 28 Vent Support Breath Rate: 14 Vent Support Mode: AC Vent Tidal Volume: 550 Sputum Amount: Small PEEP: 5.0 PIP: 47 Tube Feeding Amount: 60 I&O: Intake and Output 09/20/19 09/21/19 19:00 07:00 Intake Total 770 ml 760 ml Output Total 630 ml 700 ml Balance 140 ml 60 ml Intake Free Water 50 ml 100 ml Tube Feeding 720 ml 660 ml Output Urine Total 630 ml 700 ml ET-Tube: 75.0 ET Position: 23 Labs: Laboratory Tests Test 09/21/19 04:45 White Blood Count 6.7 K/UL (4.8-10.8) Red Blood Count 3.80 M/UL (4.70-6.10) L Hemoglobin 10.1 G/DL (14.2-18.0) L Hematocrit 31.4 % (42.0-52.0) L Mean Corpuscular Volume 83 FL (80-99) Mean Corpuscular Hemoglobin 26.6 PG (27.0-31.0) L Mean Corpuscular Hemoglobin Concent 32.2 G/DL (32.0-36.0) Red Cell Distribution Width 18.1 % (11.6-14.8) H Platelet Count 572 K/UL (150-450) H Mean Platelet Volume 5.6 FL (6.5-10.1) L Neutrophils (%) (Auto) 62.3 % (45.0-75.0) Lymphocytes (%) (Auto) 23.3 % (20.0-45.0) Monocytes (%) (Auto) 7.8 % (1.0-10.0) Eosinophils (%) (Auto) 5.5 % (0.0-3.0) H Basophils (%) (Auto) 1.1 % (0.0-2.0) Sodium Level 144 MMOL/L (136-145) Potassium Level 4.7 MMOL/L (3.5-5.1) Chloride Level 105 MMOL/L (98-107) Carbon Dioxide Level 31 MMOL/L (21-32) Anion Gap 8 mmol/L (5-15) Blood Urea Nitrogen 20 mg/dL (7-18) H Creatinine 1.0 MG/DL (0.55-1.30) Estimat Glomerular Filtration Rate > 60 mL/min (>60) Glucose Level 137 MG/DL (74-106) H Calcium Level 9.1 MG/DL (8.5-10.1) Vania Hui MD Sep 21, 2019 12:00
--- NOTE | 2019-09-21 12:24 | Internal Med Progress Note ---
Subjective Date of Service: Sep 21, 2019 Physician Name BahXander Attending Physician Lamont Hayes MD Current Medications Medications (Trade) Dose Ordered Sig/Kike Route PRN Reason Start Time Stop Time Status Last Admin Dose Admin Acetaminophen (Tylenol) 650 mg Q4H PRN ORAL fever 09/09/19 04:30 10/07/19 04:29 Albuterol/ Ipratropium (Albuterol/ Ipratropium) 3 ml Q4H PRN HHN sob 09/17/19 08:30 09/22/19 08:29 Amlodipine Besylate (Norvasc) 5 mg BID ORAL 09/16/19 18:00 10/07/19 08:59 09/21/19 08:47 Heparin Sodium (Porcine) (Heparin 5000 units/ml) 5,000 units EVERY 12 HOURS SUBQ 09/09/19 09:00 10/22/19 08:59 09/21/19 08:48 Hydralazine HCl (Apresoline) 10 mg Q4H PRN IV sbp more than 160 09/16/19 11:16 12/15/19 11:15 Levothyroxine Sodium (Synthroid) 75 mcg DAILY@0630 ORAL 09/12/19 06:30 10/07/19 08:29 09/21/19 06:49 Lorazepam (Ativan 2mg/ml 1ml) 1 mg Q4H PRN IV For Anxiety 09/17/19 07:45 09/24/19 07:44 Mirtazapine (Remeron) 7.5 mg BEDTIME ORAL 09/09/19 21:00 12/06/19 20:59 09/20/19 20:51 Nitroglycerin (Ntg) 0.4 mg Q5M PRN SL Prn Chest Pain 09/09/19 04:30 10/07/19 04:29 Ondansetron HCl (Zofran) 4 mg Q6H PRN IVP Nausea & Vomiting 09/09/19 04:30 10/07/19 04:29 09/18/19 02:10 Pantoprazole (Protonix) 40 mg Q12HR IVP 09/11/19 21:00 10/10/19 08:59 09/21/19 08:47 Polyethylene Glycol (Miralax) 17 gm DAILYPRN PRN ORAL Constipation 09/09/19 04:30 10/07/19 04:29 Promethazine HCl/ Codeine (Phenergan with Codeine) 5 ml Q4H PRN ORAL For Cough 09/09/19 04:30 10/07/19 04:29 Quetiapine Fumarate (SEROqueL) 25 mg Q8H PRN NG Agitation 09/15/19 13:15 10/30/19 13:14 Allergies: Coded Allergies: PENICILLINS (Verified Allergy, Unknown, 10/27/18) tolretas cephalosporins ROS Limited/Unobtainable: Yes Subjective 84 YO M admitted with cough and congestion. Now right pleural effusion and pneumonia. Cover for Int Med-Dr Hayes. ICU. S/P thoracentesis 09/19/19. Extubated 09/20/19 Objective Last Vital Signs Date Time Temp Pulse Resp B/P (MAP) Pulse Ox O2 Delivery O2 Flow Rate FiO2 09/21/19 12:00 98.8 74 27 145/64 (91) 98 09/21/19 12:00 Nasal Cannula 3.0 09/20/19 07:39 28 Laboratory Tests Test 09/21/19 04:45 White Blood Count 6.7 K/UL (4.8-10.8) Red Blood Count 3.80 M/UL (4.70-6.10) L Hemoglobin 10.1 G/DL (14.2-18.0) L Hematocrit 31.4 % (42.0-52.0) L Mean Corpuscular Volume 83 FL (80-99) Mean Corpuscular Hemoglobin 26.6 PG (27.0-31.0) L Mean Corpuscular Hemoglobin Concent 32.2 G/DL (32.0-36.0) Red Cell Distribution Width 18.1 % (11.6-14.8) H Platelet Count 572 K/UL (150-450) H Mean Platelet Volume 5.6 FL (6.5-10.1) L Neutrophils (%) (Auto) 62.3 % (45.0-75.0) Lymphocytes (%) (Auto) 23.3 % (20.0-45.0) Monocytes (%) (Auto) 7.8 % (1.0-10.0) Eosinophils (%) (Auto) 5.5 % (0.0-3.0) H Basophils (%) (Auto) 1.1 % (0.0-2.0) Sodium Level 144 MMOL/L (136-145) Potassium Level 4.7 MMOL/L (3.5-5.1) Chloride Level 105 MMOL/L (98-107) Carbon Dioxide Level 31 MMOL/L (21-32) Anion Gap 8 mmol/L (5-15) Blood Urea Nitrogen 20 mg/dL (7-18) H Creatinine 1.0 MG/DL (0.55-1.30) Estimat Glomerular Filtration Rate > 60 mL/min (>60) Glucose Level 137 MG/DL (74-106) H Calcium Level 9.1 MG/DL (8.5-10.1) Microbiology Date/Time Source Procedure Growth Status 09/19/19 14:40 Ascities Fluid Gram Stain - Final Resulted 09/19/19 14:40 Ascities Fluid Body Fluid Culture - Preliminary NO GROWTH AFTER 24 HOURS Resulted Intake and Output 09/20/19 09/21/19 19:00 07:00 Intake Total 770 ml 760 ml Output Total 630 ml 700 ml Balance 140 ml 60 ml Intake Free Water 50 ml 100 ml Tube Feeding 720 ml 660 ml Output Urine Total 630 ml 700 ml Objective PHYSICAL EXAMINATION: GENERAL: The patient is a thin-appearing male, in no apparent distress. HEENT: Eyes, pupils are equal and responsive to light and accommodation. Extraocular movements are intact. NECK: Supple without lymphadenopathy. CHEST: Mech vent; Lungs are clear to auscultation bilaterally with decreased breath sounds on the right. There are no wheezes appreciated. ABDOMEN: Soft, nontender, and nondistended. Positive bowel sounds. No evidence of hepatosplenomegaly. Currently, no rebound or guarding noted. EXTREMITIES: Negative for clubbing, cyanosis, or edema. RECTAL/GENITAL: Not performed. NEUROLOGIC: Cranial nerves II through XII are grossly intact without focal deficits. Assessment/Plan Assessment/Plan ASSESSMENT: This is an 84-year-old male with: 1. Possible right pneumonia=pseudamonas 2. Urinary tract infection=jennifer 3. Right pleural effusion. 4. Esophageal mass. 5. Dysphagia. 6. Diabetes. 7. Alzheimer's dementia. 8. Cerebrovascular disease. 9. Hypothyroidism. 10. Seizure disorder. 11. Iron deficiency anemia. 13. Respiratory failure TREATMENT: 1. Right perihilar Pneumonia/pleural effusion. COVID 19 and Influenza negative. A Pulmonary consultation has been obtained with Dr. Vania Hui. S/P thoracentesis 09/19/19. We will follow recommendation of Pulmonary. Continue vanco and cefepime per ID=Dr Matias ABX= cefepime 2. Urinary tract infection. . A urine culture =jennifer 3. Right pleural effusion. As above, a Pulmonary consultation has been obtained with Dr. Vania Hui. The patient may require thoracentesis during this hospitalization. 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 A Gastroenterology consultation has been obtained with Dr. Darrick Rosario. 5. Dysphagia. The patient is status post PEG placement on 08/08/[address] [facility] by Dr. Darrick Rosario. 6. Diabetes type 2. A NovoLog sliding scale has been instituted. 7. Alzheimer's dementia. 8. Cerebrovascular disease, status post cerebrovascular accident. 9. Hypothyroidism. Continue levothyroxine as above. 10. Seizure disorder. 11. Iron deficiency anemia. 12. Extubated 09/20/19 Xander Bah MD Sep 21, 2019 12:24
--- NOTE | 2019-09-21 12:43 | Infectious Diseases Prog Note ---
Assessment/Plan Assessment/Plan Afebrile No leukocytosis PNA VDRF, sp intubation 09/08, sp extubation 09/18, now on NC SARS-CoV neg x2 MRSA screen pos sp cx: PSA (hensley S) and proteus (hensley S) 09/17 CXR: Similar bilateral interstitial prominence, greater on the right.Stable right perihilar, mid and lower lung opacities. Similar left lung base opacity. Small left pleural effusion is stable. Loculated right pleural effusion is stable. No pneumothorax. CXR: Right pleural effusion, also demonstrated on prior 08/09/2019 exam, slightly increased. Hazy right lung parenchymal opacity probably represents a superimposed pleural fluid but infiltrate also possible. R pleural effusion, exudative -09/18 SP thorancetesis; removal of 2050 mL fluid; Fluid prot 5 (serum prot 7.2 ); cx NTD QTc 419 DM HTN CVA Dementia Nonverbal G tube Plan: continue to monitor off abx 09/19 SPcefepime # 14/09/09 SP vanc #4 ( Cr increased) f/u Bcx ICU care monitor temp and CBC DC COVID isolation isolation precaution per hospital protocol DW RN Thank you for this consult. [facility] will continue to follow the patient with you. Subjective Allergies: Coded Allergies: PENICILLINS (Verified Allergy, Unknown, 10/27/18) tolretas cephalosporins Subjective afebrile on 3l NC no leukocytosis Objective Vital Signs Last 24 Hour Vital Signs Date Time Temp Pulse Resp B/P (MAP) Pulse Ox O2 Delivery O2 Flow Rate FiO2 09/21/19 12:00 98.8 74 27 145/64 (91) 98 09/21/19 12:00 Nasal Cannula 3.0 09/21/19 12:00 3.0 09/21/19 11:00 76 31 160/65 (96) 98 09/21/19 10:00 68 27 140/82 (101) 97 09/21/19 09:00 70 30 137/100 (112) 100 09/21/19 08:47 71 155/79 09/21/19 08:00 98.8 77 33 155/65 (95) 99 09/21/19 08:00 Nasal Cannula 3.0 09/21/19 08:00 77 09/21/19 08:00 3.0 09/21/19 07:00 78 28 165/64 (97) 99 09/21/19 06:00 84 29 156/56 (89) 96 09/21/19 05:00 85 23 173/78 (109) 93 09/21/19 04:00 82 09/21/19 04:00 98.7 81 24 155/68 (97) 92 09/21/19 04:00 3.0 09/21/19 04:00 Nasal Cannula 3.0 09/21/19 03:00 76 28 167/82 (110) 92 09/21/19 02:00 85 28 135/55 (81) 92 09/21/19 01:00 67 26 134/41 (72) 100 09/21/19 00:00 Nasal Cannula 3.0 09/21/19 00:00 3.0 09/21/19 00:00 70 09/21/19 00:00 98.8 68 24 151/59 (89) 92 09/20/19 23:00 64 24 145/52 (83) 96 09/20/19 22:00 69 27 139/55 (83) 95 09/20/19 21:00 64 27 154/65 (94) 91 09/20/19 20:00 62 09/20/19 20:00 3.0 09/20/19 20:00 60 27 112/42 (65) 95 09/20/19 20:00 Nasal Cannula 3.0 09/20/19 19:00 59 22 132/39 (70) 93 09/20/19 18:00 59 22 119/48 (71) 94 09/20/19 17:20 60 147/49 09/20/19 17:00 66 27 147/49 (81) 98 09/20/19 16:00 3.0 09/20/19 16:00 62 09/20/19 16:00 Nasal Cannula 3.0 09/20/19 16:00 98.4 63 26 126/46 (72) 99 09/20/19 15:00 62 27 146/45 (78) 98 09/20/19 14:00 65 25 146/45 (78) 94 09/20/19 13:00 67 28 143/46 (78) 98 09/20/19 13:00 64 25 143/46 (78) 97 Height (Feet): 5 Height (Inches): 11.00 Weight (Pounds): 150 Objective Gen: NAD. well nourished HEENT: ETT. oral secretions Resp: coarse. equal chest rise. regular rate and rhythm. Abd: Soft. no TTP. nondistended. G tube site c/d/i. Neuro: opens eyes to voice and follows simple commands Microbiology Date/Time Source Procedure Growth Status 09/19/19 14:40 Ascities Fluid Gram Stain - Final Resulted 09/19/19 14:40 Ascities Fluid Body Fluid Culture - Preliminary NO GROWTH AFTER 24 HOURS Resulted Laboratory Tests Test 09/21/19 04:45 White Blood Count 6.7 K/UL (4.8-10.8) Red Blood Count 3.80 M/UL (4.70-6.10) L Hemoglobin 10.1 G/DL (14.2-18.0) L Hematocrit 31.4 % (42.0-52.0) L Mean Corpuscular Volume 83 FL (80-99) Mean Corpuscular Hemoglobin 26.6 PG (27.0-31.0) L Mean Corpuscular Hemoglobin Concent 32.2 G/DL (32.0-36.0) Red Cell Distribution Width 18.1 % (11.6-14.8) H Platelet Count 572 K/UL (150-450) H Mean Platelet Volume 5.6 FL (6.5-10.1) L Neutrophils (%) (Auto) 62.3 % (45.0-75.0) Lymphocytes (%) (Auto) 23.3 % (20.0-45.0) Monocytes (%) (Auto) 7.8 % (1.0-10.0) Eosinophils (%) (Auto) 5.5 % (0.0-3.0) H Basophils (%) (Auto) 1.1 % (0.0-2.0) Sodium Level 144 MMOL/L (136-145) Potassium Level 4.7 MMOL/L (3.5-5.1) Chloride Level 105 MMOL/L (98-107) Carbon Dioxide Level 31 MMOL/L (21-32) Anion Gap 8 mmol/L (5-15) Blood Urea Nitrogen 20 mg/dL (7-18) H Creatinine 1.0 MG/DL (0.55-1.30) Estimat Glomerular Filtration Rate > 60 mL/min (>60) Glucose Level 137 MG/DL (74-106) H Calcium Level 9.1 MG/DL (8.5-10.1) Current Medications Medications (Trade) Dose Ordered Sig/Kike Route PRN Reason Start Time Stop Time Status Last Admin Dose Admin Acetaminophen (Tylenol) 650 mg Q4H PRN ORAL fever 09/09/19 04:30 10/07/19 04:29 Albuterol/ Ipratropium (Albuterol/ Ipratropium) 3 ml Q4H PRN HHN sob 09/17/19 08:30 09/22/19 08:29 Amlodipine Besylate (Norvasc) 5 mg BID ORAL 09/16/19 18:00 10/07/19 08:59 09/21/19 08:47 Heparin Sodium (Porcine) (Heparin 5000 units/ml) 5,000 units EVERY 12 HOURS SUBQ 09/09/19 09:00 10/22/19 08:59 09/21/19 08:48 Hydralazine HCl (Apresoline) 10 mg Q4H PRN IV sbp more than 160 09/16/19 11:16 12/15/19 11:15 Levothyroxine Sodium (Synthroid) 75 mcg DAILY@0630 ORAL 09/12/19 06:30 10/07/19 08:29 09/21/19 06:49 Lorazepam (Ativan 2mg/ml 1ml) 1 mg Q4H PRN IV For Anxiety 09/17/19 07:45 09/24/19 07:44 Mirtazapine (Remeron) 7.5 mg BEDTIME ORAL 09/09/19 21:00 12/06/19 20:59 09/20/19 20:51 Nitroglycerin (Ntg) 0.4 mg Q5M PRN SL Prn Chest Pain 09/09/19 04:30 10/07/19 04:29 Ondansetron HCl (Zofran) 4 mg Q6H PRN IVP Nausea & Vomiting 09/09/19 04:30 10/07/19 04:29 09/18/19 02:10 Pantoprazole (Protonix) 40 mg Q12HR IVP 09/11/19 21:00 10/10/19 08:59 09/21/19 08:47 Polyethylene Glycol (Miralax) 17 gm DAILYPRN PRN ORAL Constipation 09/09/19 04:30 10/07/19 04:29 Promethazine HCl/ Codeine (Phenergan with Codeine) 5 ml Q4H PRN ORAL For Cough 09/09/19 04:30 10/07/19 04:29 Quetiapine Fumarate (SEROqueL) 25 mg Q8H PRN NG Agitation 09/15/19 13:15 10/30/19 13:14 Danielle Roach M.D. Sep 21, 2019 12:43
[2019-09-22] VITALS: BP 132/60
[2019-09-22] MEDS ORDERED: Nitroglycerin Subl 0.4mg tab SL PRN (02:35)
[2019-09-22] MEDS ORDERED: Albuterol/Ipratropium 3ml neb HHN PRN (02:56)
[2019-09-22] MEDS ORDERED: LORazepam Inj 2mg/ml 1ml IV PRN (02:57)
[2019-09-22] MEDS ORDERED: Miralax 17gm pkt ORAL PRN (02:58)
[2019-09-22] MEDS ORDERED: Promethazine/Codeine 5ml UD ORAL PRN (02:59)
[2019-09-22 04:00] VITALS: BP 142/68
[2019-09-22 06:33] LABS: BASOPHILS % (AUTO) 1.4 % (0.0-2.0); EOSINOPHILS % (AUTO) 4.8 % (0.0-3.0); HEMATOCRIT 32.4 % (42.0-52.0); HEMOGLOBIN 10.4 G/DL (14.2-18.0); LYMPHOCYTES % (AUTO) 20.4 % (20.0-45.0); MEAN CORPUSCULAR VOLUME 84 FL (80-99); MONOCYTES % (AUTO) 10.5 % (1.0-10.0); NEUTROPHILS % (AUTO) 62.8 % (45.0-75.0); PLATELET COUNT 625 K/UL (150-450); RED BLOOD COUNT 3.87 M/UL (4.70-6.10); RED CELL DISTRIBUTION WIDTH 17.9 % (11.6-14.8); WHITE BLOOD COUNT 5.2 K/UL (4.8-10.8)
[2019-09-22 06:52] LABS: ANION GAP 9 mmol/L (5-15); BLOOD UREA NITROGEN 21 mg/dL (7-18); CALCIUM 8.8 MG/DL (8.5-10.1); CARBON DIOXIDE 31 MMOL/L (21-32); CHLORIDE 103 MMOL/L (98-107); CREATININE 0.9 MG/DL (0.55-1.30); POTASSIUM 4.7 MMOL/L (3.5-5.1); SODIUM 143 MMOL/L (136-145)
[2019-09-22 08:00] VITALS: BP 155/83
[2019-09-22] MEDS: Pantoprazole Inj IVP SCH ×2 (08:56→21:46)
[2019-09-22] MEDS: Heparin 5000 units/ml inj SUBQ SCH ×2 (08:58→21:50)
--- NOTE | 2019-09-22 09:11 | Nephrology Progress Note ---
Assessment/Plan Problem List: (1) RAMAN (acute kidney injury) Assessment: Serum creatinine normalized with hydration (2) Dehydration (3) Suspected COVID-19 virus infection (4) Anemia (5) Sepsis (6) Diabetes mellitus (7) Hypothyroidism Assessment - Acute renal failure - Severe anemia - Sepsis, pneumonia, acute respiratory failure, suspected: Viewed 19 virus infection - Diabetes mellitus - Hypothyroidism - Feeding by G-tube - Squamous cell esophageal cancer - History of CVA (cerebrovascular accident) Plan Stable from a renal standpoint of view pneumonia SARS-CoV neg x2 MRSA screen pos sp cx: PSA and proteus Now extubated on oxygen with nasal cannula Changes Seroquel to "as needed" due to bradycardia Discontinue IV fluid Monitor renal parameters, serum creatinine Adjust electrolytes with supplements Increase Synthroid dose Avoid nephrotoxic's as possible Ventilator management Urine studies Per orders Subjective ROS Limited/Unobtainable: No Constitutional: Reports: malaise Objective Objective Last 24 Hour Vital Signs Date Time Temp Pulse Resp B/P (MAP) Pulse Ox O2 Delivery O2 Flow Rate FiO2 09/22/19 08:56 72 155/83 09/22/19 08:21 98 Nasal Cannula 2.0 28 09/22/19 04:00 98.5 74 26 142/68 (92) 98 09/22/19 04:00 Nasal Cannula 3.0 09/22/19 04:00 3.0 09/22/19 00:00 79 09/22/19 00:00 Nasal Cannula 3.0 09/22/19 00:00 3.0 09/22/19 00:00 76 09/22/19 00:00 99.0 73 30 132/60 (84) 100 09/21/19 23:00 74 28 135/65 (88) 95 09/21/19 22:00 73 37 159/57 (91) 95 09/21/19 21:00 70 28 130/54 (79) 100 09/21/19 20:00 Nasal Cannula 3.0 09/21/19 20:00 99.2 72 28 151/74 (99) 100 09/21/19 20:00 74 09/21/19 20:00 3.0 09/21/19 19:00 70 29 123/40 (67) 99 09/21/19 18:00 82 36 146/78 (100) 94 09/21/19 17:36 70 134/53 09/21/19 17:00 67 29 136/81 (99) 98 09/21/19 16:00 Nasal Cannula 3.0 09/21/19 16:00 63 09/21/19 16:00 98.7 63 25 149/88 (108) 82 09/21/19 16:00 3.0 09/21/19 15:00 75 39 148/87 (107) 98 09/21/19 14:00 75 29 144/55 (84) 99 09/21/19 13:00 74 32 144/64 (90) 98 09/21/19 12:00 98.8 74 27 145/64 (91) 98 09/21/19 12:00 74 09/21/19 12:00 Nasal Cannula 3.0 09/21/19 12:00 3.0 09/21/19 11:00 76 31 160/65 (96) 98 09/21/19 10:00 68 27 140/82 (101) 97 Intake and Output 09/21/19 09/22/19 19:00 07:00 Intake Total 720 ml 740 ml Output Total 710 ml 925 ml Balance 10 ml -185 ml Intake Free Water 140 ml Tube Feeding 720 ml 600 ml Output Urine Total 710 ml 925 ml Laboratory Tests 09/22/19 05:30: White Blood Count 5.2, Red Blood Count 3.87L, Hemoglobin 10.4L, Hematocrit 32.4L , Mean Corpuscular Volume 84, Mean Corpuscular Hemoglobin 26.7L, Mean Corpuscular Hemoglobin Concent 32.0, Red Cell Distribution Width 17.9H, Platelet Count 625H, Mean Platelet Volume 5.8L, Neutrophils (%) (Auto) 62.8, Lymphocytes (%) (Auto) 20.4, Monocytes (%) (Auto) 10.5H, Eosinophils (%) (Auto) 4.8H, Basophils (%) (Auto) 1.4, Sodium Level 143, Potassium Level 4.7, Chloride Level 103, Carbon Dioxide Level 31, Anion Gap 9, Blood Urea Nitrogen 21H, Creatinine 0.9, Estimat Glomerular Filtration Rate > 60, Glucose Level 100, Calcium Level 8.8 Height (Feet): 5 Height (Inches): 11.00 Weight (Pounds): 152 General Appearance: no apparent distress Cardiovascular: normal rate Respiratory/Chest: decreased breath sounds Abdomen: distended Clovis Benites MD Sep 22, 2019 09:11
[2019-09-22 12:00] VITALS: BP 163/73
--- NOTE | 2019-09-22 12:34 | Pulmonology Progress Note ---
Assessment/Plan Problems: (1) Nosocomial pneumonia (2) Squamous cell esophageal cancer (3) Suspected COVID-19 virus infection (4) Atrial fibrillation (5) Diabetes mellitus (6) Hypertension (7) Severe malnutrition (8) Alzheimer's dementia (9) Hypothyroidism (10) Pleural effusion (11) At high risk for aspiration (12) Feeding by G-tube (13) History of CVA (cerebrovascular accident) Assessment/Plan tolerating extubation awake, needs lots of suctioning respiratory treatment check electrolytes ID consult appreciated sliding scale diabetic diet aspiration precaution Subjective ROS Limited/Unobtainable: No Constitutional: Reports: no symptoms HEENT: Repors: no symptoms Respiratory: Reports: no symptoms Allergies: Coded Allergies: PENICILLINS (Verified Allergy, Unknown, 10/27/18) tolretas cephalosporins Objective Last 24 Hour Vital Signs Date Time Temp Pulse Resp B/P (MAP) Pulse Ox O2 Delivery O2 Flow Rate FiO2 09/22/19 12:00 98.2 61 22 163/73 (103) 91 09/22/19 12:00 3.0 09/22/19 09:00 Nasal Cannula 3.0 09/22/19 08:56 72 155/83 09/22/19 08:21 98 Nasal Cannula 2.0 28 09/22/19 08:00 98.1 72 18 155/83 (107) 94 09/22/19 08:00 3.0 09/22/19 04:00 98.5 74 26 142/68 (92) 98 09/22/19 04:00 Nasal Cannula 3.0 09/22/19 04:00 3.0 09/22/19 00:00 79 09/22/19 00:00 Nasal Cannula 3.0 09/22/19 00:00 3.0 09/22/19 00:00 76 09/22/19 00:00 99.0 73 30 132/60 (84) 100 09/21/19 23:00 74 28 135/65 (88) 95 09/21/19 22:00 73 37 159/57 (91) 95 09/21/19 21:00 70 28 130/54 (79) 100 09/21/19 20:00 Nasal Cannula 3.0 09/21/19 20:00 99.2 72 28 151/74 (99) 100 09/21/19 20:00 74 09/21/19 20:00 3.0 09/21/19 19:00 70 29 123/40 (67) 99 09/21/19 18:00 82 36 146/78 (100) 94 09/21/19 17:36 70 134/53 09/21/19 17:00 67 29 136/81 (99) 98 09/21/19 16:00 Nasal Cannula 3.0 09/21/19 16:00 63 09/21/19 16:00 98.7 63 25 149/88 (108) 82 09/21/19 16:00 3.0 09/21/19 15:00 75 39 148/87 (107) 98 09/21/19 14:00 75 29 144/55 (84) 99 09/21/19 13:00 74 32 144/64 (90) 98 Intake and Output 09/21/19 09/22/19 19:00 07:00 Intake Total 720 ml 740 ml Output Total 710 ml 925 ml Balance 10 ml -185 ml Intake Free Water 140 ml Tube Feeding 720 ml 600 ml Output Urine Total 710 ml 925 ml General Appearance: WD/WN HEENT: normocephalic, atraumatic Respiratory/Chest: chest wall non-tender, lungs clear Cardiovascular: normal peripheral pulses, normal rate Abdomen: normal bowel sounds, soft, non tender, no scars Genitourinary: normal external genitalia Extremities: no cyanosis Skin: no rash Neurologic/Psychiatric: 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8, Lymphocytes (%) (Auto) 20.4, Monocytes (%) (Auto) 10.5H, Eosinophils (%) (Auto) 4.8H, Basophils (%) (Auto) 1.4, Sodium Level 143, Potassium Level 4.7, Chloride Level 103, Carbon Dioxide Level 31, Anion Gap 9, Blood Urea Nitrogen 21H, Creatinine 0.9, Estimat Glomerular Filtration Rate > 60, Glucose Level 100, Calcium Level 8.8 Current Medications Medications (Trade) Dose Ordered Sig/Kike Route PRN Reason Start Time Stop Time Status Last Admin Dose Admin Acetaminophen (Tylenol) 650 mg Q4H PRN ORAL fever 09/22/19 02:55 10/07/19 02:54 Amlodipine Besylate (Norvasc) 5 mg BID@0900,2100 ORAL 09/22/19 09:00 10/22/19 08:59 09/22/19 08:56 Heparin Sodium (Porcine) (Heparin 5000 units/ml) 5,000 units EVERY 12 HOURS SUBQ 09/22/19 09:00 10/22/19 08:59 09/22/19 08:58 Levothyroxine Sodium (Synthroid) 75 mcg DAILY@0630 ORAL 09/22/19 06:30 10/07/19 08:29 09/22/19 05:55 Lorazepam (Ativan 2mg/ml 1ml) 1 mg Q4H PRN IV For Anxiety 09/22/19 02:57 09/24/19 02:56 Mirtazapine (Remeron) 7.5 mg BEDTIME ORAL 09/22/19 21:00 12/06/19 20:59 Nitroglycerin (Ntg) 0.4 mg Q5M PRN SL Prn Chest Pain 09/22/19 02:35 10/07/19 04:29 Ondansetron HCl (Zofran) 4 mg Q6H PRN IVP Nausea & Vomiting 09/22/19 02:58 10/07/19 02:57 Pantoprazole (Protonix) 40 mg Q12HR IVP 09/22/19 09:00 10/10/19 08:59 09/22/19 08:56 Polyethylene Glycol (Miralax) 17 gm DAILYPRN PRN ORAL Constipation 09/22/19 02:58 10/07/19 02:57 Promethazine HCl/ Codeine (Phenergan with Codeine) 5 ml Q4H PRN ORAL For Cough 09/22/19 02:59 10/07/19 02:58 Quetiapine Fumarate (SEROqueL) 25 mg Q8H PRN NG Agitation 09/22/19 05:15 10/30/19 13:14 Vania Hui MD Sep 22, 2019 12:34
--- NOTE | 2019-09-22 14:30 | Surgery Progress Note ---
Surgery Progress Note Subjective Additional Comments congested ill appearing labs noted Objective Last 24 Hour Vital Signs Date Time Temp Pulse Resp B/P (MAP) Pulse Ox O2 Delivery O2 Flow Rate FiO2 09/22/19 12:00 98.2 61 22 163/73 (103) 91 09/22/19 12:00 3.0 09/22/19 09:00 Nasal Cannula 3.0 09/22/19 08:56 72 155/83 09/22/19 08:21 98 Nasal Cannula 2.0 28 09/22/19 08:00 98.1 72 18 155/83 (107) 94 09/22/19 08:00 3.0 09/22/19 04:00 98.5 74 26 142/68 (92) 98 09/22/19 04:00 Nasal Cannula 3.0 09/22/19 04:00 3.0 09/22/19 00:00 79 09/22/19 00:00 Nasal Cannula 3.0 09/22/19 00:00 3.0 09/22/19 00:00 76 09/22/19 00:00 99.0 73 30 132/60 (84) 100 09/21/19 23:00 74 28 135/65 (88) 95 09/21/19 22:00 73 37 159/57 (91) 95 09/21/19 21:00 70 28 130/54 (79) 100 09/21/19 20:00 Nasal Cannula 3.0 09/21/19 20:00 99.2 72 28 151/74 (99) 100 09/21/19 20:00 74 09/21/19 20:00 3.0 09/21/19 19:00 70 29 123/40 (67) 99 09/21/19 18:00 82 36 146/78 (100) 94 09/21/19 17:36 70 134/53 09/21/19 17:00 67 29 136/81 (99) 98 09/21/19 16:00 Nasal Cannula 3.0 09/21/19 16:00 63 09/21/19 16:00 98.7 63 25 149/88 (108) 82 09/21/19 16:00 3.0 09/21/19 15:00 75 39 148/87 (107) 98 I&O Intake and Output 09/21/19 09/22/19 19:00 07:00 Intake Total 720 ml 740 ml Output Total 710 ml 925 ml Balance 10 ml -185 ml Intake Free Water 140 ml Tube Feeding 720 ml 600 ml Output Urine Total 710 ml 925 ml Dressing: saturated Wound: other Drains: other Cardiovascular: RSR Respiratory: decreased breath sounds Abdomen: soft, non-tender, present bowel sounds Extremities: no cyanosis Laboratory Tests Test 09/22/19 05:30 White Blood Count 5.2 K/UL (4.8-10.8) Red Blood Count 3.87 M/UL (4.70-6.10) L Hemoglobin 10.4 G/DL (14.2-18.0) L Hematocrit 32.4 % (42.0-52.0) L Mean Corpuscular Volume 84 FL (80-99) Mean Corpuscular Hemoglobin 26.7 PG (27.0-31.0) L Mean Corpuscular Hemoglobin Concent 32.0 G/DL (32.0-36.0) Red Cell Distribution Width 17.9 % (11.6-14.8) H Platelet Count 625 K/UL (150-450) H Mean Platelet Volume 5.8 FL (6.5-10.1) L Neutrophils (%) (Auto) 62.8 % (45.0-75.0) Lymphocytes (%) (Auto) 20.4 % (20.0-45.0) Monocytes (%) (Auto) 10.5 % (1.0-10.0) H Eosinophils (%) (Auto) 4.8 % (0.0-3.0) H Basophils (%) (Auto) 1.4 % (0.0-2.0) Sodium Level 143 MMOL/L (136-145) Potassium Level 4.7 MMOL/L (3.5-5.1) Chloride Level 103 MMOL/L (98-107) Carbon Dioxide Level 31 MMOL/L (21-32) Anion Gap 9 mmol/L (5-15) Blood Urea Nitrogen 21 mg/dL (7-18) H Creatinine 0.9 MG/DL (0.55-1.30) Estimat Glomerular Filtration Rate > 60 mL/min (>60) Glucose Level 100 MG/DL (74-106) Calcium Level 8.8 MG/DL (8.5-10.1) Plan Problems: (1) UTI (urinary tract infection) (2) Acute respiratory failure Assessment & Plan: There is infiltrate suspected in the right perihilar region obscuring the right hilum. There is a hazy opacity that may partially be accounted for by pleural fluid on the right. Reticular densities are present on the left in the perihilar aspect of the lung. Endotracheal tube is in good position just above the anselmo. Heart size is normal. IMPRESSION: Suspected perihilar airspace disease in the right lung suspicious for pneumonia. Reticular nodular infiltrate in the left lung noted also. Right pleural effusion suspected. Endotracheal tube in good position cont vents support Lungs: Similar bilateral interstitial prominence, greater on the right. Stable right perihilar, mid and lower lung opacities. Similar left lung base opacity. Pleural space: Small left pleural effusion is stable. Loculated right pleural effusion is stable. No pneumothorax. Heart: Unremarkable. No cardiomegaly. Mediastinum: Unremarkable. Bones/joints: Unremarkable. Tubes, lines and devices: Endotracheal tube has been pulled back and is 10 cm above the anselmo near the thoracic inlet. IMPRESSION: Endotracheal tube has been pulled back and is 10 cm above the anselmo near the thoracic inlet. Remainder findings are stable. may need thoracentesis soon (3) Sepsis Assessment & Plan: Pt cachetic and presented on admission with multiple pressure injuries. Partial thickness pressure injury Cleft of L ear(L)1.2cm x (W)0.4cm. Base of wound moist and viable with small amt sanguineous exudate. Partial thickness pressure injury cleft of R ear(L)0.5cm x (W)0.7cm. Base of wound moist and viable Periwound erythematous.Small amt sanguineous exudate noted. Sacral DTPI(L)5cm x (W)10.5cm. Base of injury is purple with maroon borders. Coccygeal bony protrusion with darker skin tone, and small opening noted to R gluteus (L)0.5cm x (W)0.5cm within base of injury. No further skin breakdown periwound. Intact blood blister noted to R 1st metatarsal head(L)1.1cm x (W)2.5cm. DTPI noted to L heel extending into plantar aspect. Base of injury presents as an intact blood filled blister. Periwound is boggy with non-blanching erythema. R heel is boggy but blanchable. wounds unlikely etiology of sepsis respiratory but given current condition high risk for breakdown and worsening will monitor closely discussed with RN and staff great care being provided Tx.Plan: Apply Betadine to clefts of R and L ears. Pad oxygen tubing with gauze and keep oxygen tubing loose. Apply Moisture Barrier Paste to Sacrum. Cover with Optifoam drsg. Change every 3 days and prn. Apply Betadine to L heel. Cover with Optifoam drsg. Change every 3 days and prn. Apply Betadine to R 1st metatarsal head. Cover with Optifoam drsg. Change every 3 days and prn. Apply Cavilon Skin Barrier R heel. Cover with Optifoam drsg. Change every 7 days and prn. Reposition at least every 2hours or as tolerated. Off-load heels with pillow. on air mattress but not very comfortable appearing cont current care / pulm management (4) Severe anemia (5) Nosocomial pneumonia (6) Atrial fibrillation (7) Acute metabolic encephalopathy (8) History of CVA (cerebrovascular accident) (9) Diabetes mellitus (10) Hypothyroidism (11) Alzheimer's dementia (12) PVC (premature ventricular contraction) (13) Hypertension (14) Squamous cell esophageal cancer (15) Feeding by G-tube (16) Dehydration (17) Anemia (18) Severe malnutrition Assessment & Plan: Pt cachetic and presented on admission with multiple pressure injuries. Partial thickness pressure injury Cleft of L ear(L)1.2cm x (W )0.4cm. Base of wound moist and viable with small amt sanguineous exudate. Partial thickness pressure injury cleft of R ear(L)0.5cm x (W)0.7cm. Base of wound moist and viable Periwound erythematous.Small amt sanguineous exudate noted. Sacral DTPI(L)5cm x (W)10.5cm. Base of injury is purple with maroon borders. Coccygeal bony protrusion with darker skin tone, and small opening noted to R gluteus (L)0.5cm x (W)0.5cm within base of injury. No further skin breakdown periwound. Intact blood blister noted to R 1st metatarsal head(L)1.1cm x (W)2.5cm. DTPI noted to L heel extending into plantar aspect. Base of injury presents as an intact blood filled blister. Periwound is boggy with non-blanching erythema. R heel is boggy but blanchable. Tx.Plan: Apply Betadine to clefts of R and L ears. Pad oxygen tubing with gauze and keep oxygen tubing loose. Apply Moisture Barrier Paste to Sacrum. Cover with Optifoam drsg. Change every 3 days and prn. Apply Betadine to L heel. Cover with Optifoam drsg. Change every 3 days and prn. Apply Betadine to R 1st metatarsal head. Cover with Optifoam drsg. Change every 3 days and prn. Apply Cavilon Skin Barrier R heel. Cover with Optifoam drsg. Change every 7 days and prn. Reposition at least every 2hours or as tolerated. Off-load heels with pillow. (19) Encounter for PEG (percutaneous endoscopic gastrostomy) (20) At high risk for aspiration (21) Pleural effusion (22) Suspected COVID-19 virus infection Jan Mora Sep 22, 2019 14:30
[2019-09-22 16:00] VITALS: BP 144/82
--- NOTE | 2019-09-22 17:10 | Internal Med Progress Note ---
Subjective Date of Service: Sep 22, 2019 Physician Name Xander Bah Attending Physician Lamont Hayes MD Current Medications Medications (Trade) Dose Ordered Sig/Kike Route PRN Reason Start Time Stop Time Status Last Admin Dose Admin Acetaminophen (Tylenol) 650 mg Q4H PRN ORAL fever 09/22/19 02:55 10/07/19 02:54 Amlodipine Besylate (Norvasc) 5 mg BID@0900,2100 ORAL 09/22/19 09:00 10/22/19 08:59 09/22/19 08:56 Heparin Sodium (Porcine) (Heparin 5000 units/ml) 5,000 units EVERY 12 HOURS SUBQ 09/22/19 09:00 10/22/19 08:59 09/22/19 08:58 Levothyroxine Sodium (Synthroid) 75 mcg DAILY@0630 ORAL 09/22/19 06:30 10/07/19 08:29 09/22/19 05:55 Lorazepam (Ativan 2mg/ml 1ml) 1 mg Q4H PRN IV For Anxiety 09/22/19 02:57 09/24/19 02:56 Mirtazapine (Remeron) 7.5 mg BEDTIME ORAL 09/22/19 21:00 12/06/19 20:59 Nitroglycerin (Ntg) 0.4 mg Q5M PRN SL Prn Chest Pain 09/22/19 02:35 10/07/19 04:29 Ondansetron HCl (Zofran) 4 mg Q6H PRN IVP Nausea & Vomiting 09/22/19 02:58 10/07/19 02:57 Pantoprazole (Protonix) 40 mg Q12HR IVP 09/22/19 09:00 10/10/19 08:59 09/22/19 08:56 Polyethylene Glycol (Miralax) 17 gm DAILYPRN PRN ORAL Constipation 09/22/19 02:58 10/07/19 02:57 Promethazine HCl/ Codeine (Phenergan with Codeine) 5 ml Q4H PRN ORAL For Cough 09/22/19 02:59 10/07/19 02:58 Quetiapine Fumarate (SEROqueL) 25 mg Q8H PRN NG Agitation 09/22/19 05:15 10/30/19 13:14 Allergies: Coded Allergies: PENICILLINS (Verified Allergy, Unknown, 10/27/18) tolretas cephalosporins ROS Limited/Unobtainable: Yes Subjective 84 YO M admitted with cough and congestion. Now right pleural effusion and pneumonia. Cover for Int Med-Dr Hayes. ICU. S/P thoracentesis 09/19/19. Extubated 09/20/19 Objective Last Vital Signs Date Time Temp Pulse Resp B/P (MAP) Pulse Ox O2 Delivery O2 Flow Rate FiO2 09/22/19 16:00 98.8 77 19 144/82 (102) 95 09/22/19 16:00 3.0 09/22/19 09:00 Nasal Cannula 09/22/19 08:21 28 Laboratory Tests Test 09/22/19 05:30 White Blood Count 5.2 K/UL (4.8-10.8) Red Blood Count 3.87 M/UL (4.70-6.10) L Hemoglobin 10.4 G/DL (14.2-18.0) L Hematocrit 32.4 % (42.0-52.0) L Mean Corpuscular Volume 84 FL (80-99) Mean Corpuscular Hemoglobin 26.7 PG (27.0-31.0) L Mean Corpuscular Hemoglobin Concent 32.0 G/DL (32.0-36.0) Red Cell Distribution Width 17.9 % (11.6-14.8) H Platelet Count 625 K/UL (150-450) H Mean Platelet Volume 5.8 FL (6.5-10.1) L Neutrophils (%) (Auto) 62.8 % (45.0-75.0) Lymphocytes (%) (Auto) 20.4 % (20.0-45.0) Monocytes (%) (Auto) 10.5 % (1.0-10.0) H Eosinophils (%) (Auto) 4.8 % (0.0-3.0) H Basophils (%) (Auto) 1.4 % (0.0-2.0) Sodium Level 143 MMOL/L (136-145) Potassium Level 4.7 MMOL/L (3.5-5.1) Chloride Level 103 MMOL/L (98-107) Carbon Dioxide Level 31 MMOL/L (21-32) Anion Gap 9 mmol/L (5-15) Blood Urea Nitrogen 21 mg/dL (7-18) H Creatinine 0.9 MG/DL (0.55-1.30) Estimat Glomerular Filtration Rate > 60 mL/min (>60) Glucose Level 100 MG/DL (74-106) Calcium Level 8.8 MG/DL (8.5-10.1) Intake and Output 09/21/19 09/22/19 19:00 07:00 Intake Total 720 ml 800 ml Output Total 710 ml 925 ml Balance 10 ml -125 ml Intake Free Water 140 ml Tube Feeding 720 ml 660 ml Output Urine Total 710 ml 925 ml Objective PHYSICAL EXAMINATION: GENERAL: The patient is a thin-appearing male, in no apparent distress. HEENT: Eyes, pupils are equal and responsive to light and accommodation. Extraocular movements are intact. NECK: Supple without lymphadenopathy. CHEST: Mech vent; Lungs are clear to auscultation bilaterally with decreased breath sounds on the right. There are no wheezes appreciated. ABDOMEN: Soft, nontender, and nondistended. Positive bowel sounds. No evidence of hepatosplenomegaly. Currently, no rebound or guarding noted. EXTREMITIES: Negative for clubbing, cyanosis, or edema. RECTAL/GENITAL: Not performed. NEUROLOGIC: Cranial nerves II through XII are grossly intact without focal deficits. Assessment/Plan Assessment/Plan ASSESSMENT: This is an 84-year-old male with: 1. Possible right pneumonia=pseudamonas 2. Urinary tract infection=jennifer 3. Right pleural effusion. 4. Esophageal mass. 5. Dysphagia. 6. Diabetes. 7. Alzheimer's dementia. 8. Cerebrovascular disease. 9. Hypothyroidism. 10. Seizure disorder. 11. Iron deficiency anemia. 13. Respiratory failure TREATMENT: 1. Right perihilar Pneumonia/pleural effusion. COVID 19 and Influenza negative. A Pulmonary consultation has been obtained with Dr. Vania Hui. S/P thoracentesis 09/19/19. We will follow recommendation of Pulmonary. ID=Dr Marley GARCIA= S/P cefepime 2. Urinary tract infection. . A urine culture =jennifer 3. Right pleural effusion. As above, a Pulmonary consultation has been obtained with Dr. Vania Hui. The patient may require thoracentesis during this hospitalization. 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 A Gastroenterology consultation has been obtained with Dr. Darrick Rosario. 5. Dysphagia. The patient is status post PEG placement on 08/08/2019 at [facility] by Dr. Darrick Rosario. 6. Diabetes type 2. A NovoLog sliding scale has been instituted. 7. Alzheimer's dementia. 8. Cerebrovascular disease, status post cerebrovascular accident. 9. Hypothyroidism. Continue levothyroxine as above. 10. Seizure disorder. 11. Iron deficiency anemia. 12. Extubated 09/20/19 Xander Bah MD Sep 22, 2019 17:10
[2019-09-22 20:00] VITALS: BP 152/66
[2019-09-23] VITALS (7 sets, daily range): BP systolic 118–167; BP diastolic 52–74
[2019-09-23 06:40] LABS: HEMATOCRIT 32.3 % (42.0-52.0); HEMOGLOBIN 10.2 G/DL (14.2-18.0); MEAN CORPUSCULAR VOLUME 84 FL (80-99); PLATELET COUNT 663 K/UL (150-450); RED BLOOD COUNT 3.86 M/UL (4.70-6.10); RED CELL DISTRIBUTION WIDTH 18.1 % (11.6-14.8); WHITE BLOOD COUNT 4.8 K/UL (4.8-10.8)
[2019-09-23 07:08] LABS: ANION GAP 3 mmol/L (5-15); BLOOD UREA NITROGEN 20 mg/dL (7-18); CALCIUM 9.5 MG/DL (8.5-10.1); CARBON DIOXIDE 33 MMOL/L (21-32); CHLORIDE 104 MMOL/L (98-107); POTASSIUM 4.9 MMOL/L (3.5-5.1); SODIUM 140 MMOL/L (136-145)
[2019-09-23] MEDS: Pantoprazole Inj IVP SCH ×2 (09:30→20:29)
--- NOTE | 2019-09-23 09:30 | Nephrology Progress Note ---
Assessment/Plan Problem List: (1) RAMAN (acute kidney injury) Assessment: Serum creatinine normalized with hydration (2) Dehydration (3) Suspected COVID-19 virus infection (4) Anemia (5) Sepsis (6) Diabetes mellitus (7) Hypothyroidism Assessment - Acute renal failure - Severe anemia - Sepsis, pneumonia, acute respiratory failure, suspected: Viewed 19 virus infection - Diabetes mellitus - Hypothyroidism - Feeding by G-tube - Squamous cell esophageal cancer - History of CVA (cerebrovascular accident) Plan Stable from a renal standpoint of view pneumonia SARS-CoV neg x2 MRSA screen pos sp cx: PSA and proteus Now extubated on oxygen with nasal cannula Changes Seroquel to "as needed" due to bradycardia Discontinue IV fluid Monitor renal parameters, serum creatinine Adjust electrolytes with supplements Increase Synthroid dose Avoid nephrotoxic's as possible Ventilator management Urine studies Per orders Subjective ROS Limited/Unobtainable: No Constitutional: Reports: malaise, weakness Objective Objective Last 24 Hour Vital Signs Date Time Temp Pulse Resp B/P (MAP) Pulse Ox O2 Delivery O2 Flow Rate FiO2 09/23/19 04:00 98.0 74 23 167/74 (105) 98 09/23/19 04:00 3.0 09/23/19 00:00 97.9 66 22 126/55 (78) 98 09/23/19 00:00 3.0 09/22/19 21:45 72 152/66 09/22/19 21:00 Nasal Cannula 3.0 09/22/19 20:00 98.2 72 22 152/66 (94) 96 09/22/19 19:34 98 Nasal Cannula 2.0 28 09/22/19 16:00 98.8 77 19 144/82 (102) 95 09/22/19 16:00 3.0 09/22/19 12:00 98.2 61 22 163/73 (103) 91 09/22/19 12:00 3.0 Intake and Output 09/22/19 09/23/19 19:00 07:00 Intake Total 900 ml Output Total 1200 ml Balance 900 ml -1200 ml Intake Free Water 240 ml Tube Feeding 660 ml Output Urine Total 1200 ml # Voids 1 # Bowel Movements 1 Current Medications Medications (Trade) Dose Ordered Sig/Kike Route PRN Reason Start Time Stop Time Status Last Admin Dose Admin Acetaminophen (Tylenol) 650 mg Q4H PRN ORAL fever 09/22/19 02:55 10/07/19 02:54 Amlodipine Besylate (Norvasc) 5 mg BID@0900,2100 ORAL 09/22/19 09:00 10/22/19 08:59 09/22/19 21:45 Heparin Sodium (Porcine) (Heparin 5000 units/ml) 5,000 units EVERY 12 HOURS SUBQ 09/22/19 09:00 10/22/19 08:59 09/22/19 21:50 Levothyroxine Sodium (Synthroid) 75 mcg DAILY@0630 ORAL 09/22/19 06:30 10/07/19 08:29 09/23/19 07:01 Lorazepam (Ativan 2mg/ml 1ml) 1 mg Q4H PRN IV For Anxiety 09/22/19 02:57 09/24/19 02:56 Mirtazapine (Remeron) 7.5 mg BEDTIME ORAL 09/22/19 21:00 12/06/19 20:59 09/22/19 21:45 Nitroglycerin (Ntg) 0.4 mg Q5M PRN SL Prn Chest Pain 09/22/19 02:35 10/07/19 04:29 Ondansetron HCl (Zofran) 4 mg Q6H PRN IVP Nausea & Vomiting 09/22/19 02:58 10/07/19 02:57 Pantoprazole (Protonix) 40 mg Q12HR IVP 09/22/19 09:00 10/10/19 08:59 09/22/19 21:46 Polyethylene Glycol (Miralax) 17 gm DAILYPRN PRN ORAL Constipation 09/22/19 02:58 10/07/19 02:57 Promethazine HCl/ Codeine (Phenergan with Codeine) 5 ml Q4H PRN ORAL For Cough 09/22/19 02:59 10/07/19 02:58 Quetiapine Fumarate (SEROqueL) 25 mg Q8H PRN NG Agitation 09/22/19 05:15 10/30/19 13:14 Laboratory Tests 09/23/19 05:40: White Blood Count 4.8, Red Blood Count 3.86L, Hemoglobin 10.2L, Hematocrit 32.3L , Mean Corpuscular Volume 84, Mean Corpuscular Hemoglobin 26.5L, Mean Corpuscular Hemoglobin Concent 31.7L, Red Cell Distribution Width 18.1H, Platelet Count 663H, Mean Platelet Volume 5.8L, Neutrophils (%) (Auto) , Lymphocytes (%) (Auto) , Monocytes (%) (Auto) , Eosinophils (%) (Auto) , Basophils (%) (Auto) , Neutrophils % (Manual) [Pending], Lymphocytes % (Manual) [Pending], Platelet Estimate [Pending], Platelet Morphology [Pending], Sodium Level 140, Potassium Level 4.9, Chloride Level 104, Carbon Dioxide Level 33H, Anion Gap 3L, Blood Urea Nitrogen 20H, Creatinine 1.0, Estimat Glomerular Filtration Rate > 60, Glucose Level 96, Calcium Level 9.5 Height (Feet): 5 Height (Inches): 11.00 Weight (Pounds): 179 General Appearance: no apparent distress Cardiovascular: normal rate Respiratory/Chest: decreased breath sounds Abdomen: soft, distended Objective no change Clovis Benites MD Sep 23, 2019 09:30
[2019-09-23] MEDS: Heparin 5000 units/ml inj SUBQ SCH ×2 (09:32→20:34)
--- NOTE | 2019-09-23 14:41 | Infectious Diseases Prog Note ---
Assessment/Plan Assessment/Plan Afebrile No leukocytosis PNA VDRF, sp intubation 09/08, sp extubation 09/18, now on NC SARS-CoV neg x2 MRSA screen pos sp cx: PSA (hensley S) and proteus (hensley S) 09/17 CXR: Similar bilateral interstitial prominence, greater on the right.Stable right perihilar, mid and lower lung opacities. Similar left lung base opacity. Small left pleural effusion is stable. Loculated right pleural effusion is stable. No pneumothorax. CXR: Right pleural effusion, also demonstrated on prior 08/09/2019 exam, slightly increased. Hazy right lung parenchymal opacity probably represents a superimposed pleural fluid but infiltrate also possible. R pleural effusion, exudative -09/18 SP thorancetesis; removal of 2050 mL fluid; Fluid prot 5 (serum prot 7.2 ); cx NTD QTc 419 DM HTN CVA Dementia Nonverbal G tube Plan: continue to monitor off abx 09/19 SPcefepime # 14/09/09 SP vanc #4 ( Cr increased) f/u Bcx ICU care monitor temp and CBC DC COVID isolation isolation precaution per hospital protocol DW RN Thank you for this consult. [facility] will continue to follow the patient with you. Subjective Allergies: Coded Allergies: PENICILLINS (Verified Allergy, Unknown, 10/27/18) tolretas cephalosporins Subjective afebrile on 3l NC no leukocytosis Objective Vital Signs Last 24 Hour Vital Signs Date Time Temp Pulse Resp B/P (MAP) Pulse Ox O2 Delivery O2 Flow Rate FiO2 09/23/19 12:00 3.0 09/23/19 12:00 97.5 72 19 143/70 (94) 96 09/23/19 09:31 74 167/69 09/23/19 09:00 Nasal Cannula 3.0 09/23/19 08:00 97.3 74 12 167/69 (101) 97 09/23/19 08:00 3.0 09/23/19 04:00 98.0 74 23 167/74 (105) 98 09/23/19 04:00 3.0 09/23/19 00:00 97.9 66 22 126/55 (78) 98 09/23/19 00:00 3.0 09/22/19 21:45 72 152/66 09/22/19 21:00 Nasal Cannula 3.0 09/22/19 20:00 98.2 72 22 152/66 (94) 96 09/22/19 19:34 98 Nasal Cannula 2.0 28 09/22/19 16:00 98.8 77 19 144/82 (102) 95 09/22/19 16:00 3.0 Height (Feet): 5 Height (Inches): 11.00 Weight (Pounds): 179 Objective Gen: NAD. well nourished HEENT: ETT. oral secretions Resp: coarse. equal chest rise. regular rate and rhythm. Abd: Soft. no TTP. nondistended. G tube site c/d/i. Neuro: opens eyes to voice and follows simple commands Laboratory Tests Test 09/23/19 05:40 White Blood Count 4.8 K/UL (4.8-10.8) Red Blood Count 3.86 M/UL (4.70-6.10) L Hemoglobin 10.2 G/DL (14.2-18.0) L Hematocrit 32.3 % (42.0-52.0) L Mean Corpuscular Volume 84 FL (80-99) Mean Corpuscular Hemoglobin 26.5 PG (27.0-31.0) L Mean Corpuscular Hemoglobin Concent 31.7 G/DL (32.0-36.0) L Red Cell Distribution Width 18.1 % (11.6-14.8) H Platelet Count 663 K/UL (150-450) H Mean Platelet Volume 5.8 FL (6.5-10.1) L Neutrophils (%) (Auto) % (45.0-75.0) Lymphocytes (%) (Auto) % (20.0-45.0) Monocytes (%) (Auto) % (1.0-10.0) Eosinophils (%) (Auto) % (0.0-3.0) Basophils (%) (Auto) % (0.0-2.0) Differential Total Cells Counted 100 Neutrophils % (Manual) 57 % (45-75) Lymphocytes % (Manual) 26 % (20-45) Monocytes % (Manual) 12 % (1-10) H Eosinophils % (Manual) 4 % (0-3) H Basophils % (Manual) 1 % (0-2) Band Neutrophils 0 % (0-8) Platelet Estimate Increased H Platelet Morphology Normal Hypochromasia 2+ Anisocytosis 1+ Sodium Level 140 MMOL/L (136-145) Potassium Level 4.9 MMOL/L (3.5-5.1) Chloride Level 104 MMOL/L (98-107) Carbon Dioxide Level 33 MMOL/L (21-32) H Anion Gap 3 mmol/L (5-15) L Blood Urea Nitrogen 20 mg/dL (7-18) H Creatinine 1.0 MG/DL (0.55-1.30) Estimat Glomerular Filtration Rate > 60 mL/min (>60) Glucose Level 96 MG/DL (74-106) Calcium Level 9.5 MG/DL (8.5-10.1) Current Medications Medications (Trade) Dose Ordered Sig/Kike Route PRN Reason Start Time Stop Time Status Last Admin Dose Admin Acetaminophen (Tylenol) 650 mg Q4H PRN ORAL fever 09/22/19 02:55 10/07/19 02:54 Amlodipine Besylate (Norvasc) 5 mg BID@0900,2100 ORAL 09/22/19 09:00 10/22/19 08:59 09/23/19 09:31 Heparin Sodium (Porcine) (Heparin 5000 units/ml) 5,000 units EVERY 12 HOURS SUBQ 09/22/19 09:00 10/22/19 08:59 09/23/19 09:32 Levothyroxine Sodium (Synthroid) 75 mcg DAILY@0630 ORAL 09/22/19 06:30 10/07/19 08:29 09/23/19 07:01 Lorazepam (Ativan 2mg/ml 1ml) 1 mg Q4H PRN IV For Anxiety 09/22/19 02:57 09/24/19 02:56 Mirtazapine (Remeron) 7.5 mg BEDTIME ORAL 09/22/19 21:00 12/06/19 20:59 09/22/19 21:45 Nitroglycerin (Ntg) 0.4 mg Q5M PRN SL Prn Chest Pain 09/22/19 02:35 10/07/19 04:29 Ondansetron HCl (Zofran) 4 mg Q6H PRN IVP Nausea & Vomiting 09/22/19 02:58 10/07/19 02:57 Pantoprazole (Protonix) 40 mg Q12HR IVP 09/22/19 09:00 5/4/20 08:59 09/23/19 09:30 Polyethylene Glycol (Miralax) 17 gm DAILYPRN PRN ORAL Constipation 09/22/19 02:58 10/07/19 02:57 Promethazine HCl/ Codeine (Phenergan with Codeine) 5 ml Q4H PRN ORAL For Cough 09/22/19 02:59 10/07/19 02:58 Quetiapine Fumarate (SEROqueL) 25 mg Q8H PRN NG Agitation 09/22/19 05:15 10/30/19 13:14 Danielle Roach M.D. Sep 23, 2019 14:41
--- NOTE | 2019-09-23 20:29 | Surgery Progress Note ---
Surgery Progress Note Subjective Additional Comments comfortable stable Objective Last 24 Hour Vital Signs Date Time Temp Pulse Resp B/P (MAP) Pulse Ox O2 Delivery O2 Flow Rate FiO2 09/23/19 16:00 98.9 57 19 127/52 (77) 97 09/23/19 16:00 3.0 09/23/19 12:00 3.0 09/23/19 12:00 97.5 72 19 143/70 (94) 96 09/23/19 09:31 74 167/69 09/23/19 09:00 Nasal Cannula 3.0 09/23/19 08:00 97.3 74 12 167/69 (101) 97 09/23/19 08:00 3.0 09/23/19 04:00 98.0 74 23 167/74 (105) 98 09/23/19 04:00 3.0 09/23/19 00:00 97.9 66 22 126/55 (78) 98 09/23/19 00:00 3.0 09/22/19 21:45 72 152/66 09/22/19 21:00 Nasal Cannula 3.0 I&O Intake and Output 09/22/19 09/23/19 19:00 07:00 Intake Total 900 ml 60 ml Output Total 1200 ml Balance 900 ml -1140 ml Intake Free Water 240 ml Tube Feeding 660 ml 60 ml Output Urine Total 1200 ml # Voids 1 # Bowel Movements 1 Dressing: saturated Wound: clean Cardiovascular: RSR Respiratory: decreased breath sounds Abdomen: soft, non-tender, present bowel sounds Extremities: no cyanosis Laboratory Tests Test 09/23/19 05:40 White Blood Count 4.8 K/UL (4.8-10.8) Red Blood Count 3.86 M/UL (4.70-6.10) L Hemoglobin 10.2 G/DL (14.2-18.0) L Hematocrit 32.3 % (42.0-52.0) L Mean Corpuscular Volume 84 FL (80-99) Mean Corpuscular Hemoglobin 26.5 PG (27.0-31.0) L Mean Corpuscular Hemoglobin Concent 31.7 G/DL (32.0-36.0) L Red Cell Distribution Width 18.1 % (11.6-14.8) H Platelet Count 663 K/UL (150-450) H Mean Platelet Volume 5.8 FL (6.5-10.1) L Neutrophils (%) (Auto) % (45.0-75.0) Lymphocytes (%) (Auto) % (20.0-45.0) Monocytes (%) (Auto) % (1.0-10.0) Eosinophils (%) (Auto) % (0.0-3.0) Basophils (%) (Auto) % (0.0-2.0) Differential Total Cells Counted 100 Neutrophils % (Manual) 57 % (45-75) Lymphocytes % (Manual) 26 % (20-45) Monocytes % (Manual) 12 % (1-10) H Eosinophils % (Manual) 4 % (0-3) H Basophils % (Manual) 1 % (0-2) Band Neutrophils 0 % (0-8) Platelet Estimate Increased H Platelet Morphology Normal Hypochromasia 2+ Anisocytosis 1+ Sodium Level 140 MMOL/L (136-145) Potassium Level 4.9 MMOL/L (3.5-5.1) Chloride Level 104 MMOL/L (98-107) Carbon Dioxide Level 33 MMOL/L (21-32) H Anion Gap 3 mmol/L (5-15) L Blood Urea Nitrogen 20 mg/dL (7-18) H Creatinine 1.0 MG/DL (0.55-1.30) Estimat Glomerular Filtration Rate > 60 mL/min (>60) Glucose Level 96 MG/DL (74-106) Calcium Level 9.5 MG/DL (8.5-10.1) Plan Problems: (1) UTI (urinary tract infection) (2) Acute respiratory failure Assessment & Plan: There is infiltrate suspected in the right perihilar region obscuring the right hilum. There is a hazy opacity that may partially be accounted for by pleural fluid on the right. Reticular densities are present on the left in the perihilar aspect of the lung. Endotracheal tube is in good position just above the anselmo. Heart size is normal. IMPRESSION: Suspected perihilar airspace disease in the right lung suspicious for pneumonia. Reticular nodular infiltrate in the left lung noted also. Right pleural effusion suspected. Endotracheal tube in good position cont vents support Lungs: Similar bilateral interstitial prominence, greater on the right. Stable right perihilar, mid and lower lung opacities. Similar left lung base opacity. Pleural space: Small left pleural effusion is stable. Loculated right pleural effusion is stable. No pneumothorax. Heart: Unremarkable. No cardiomegaly. Mediastinum: Unremarkable. Bones/joints: Unremarkable. Tubes, lines and devices: Endotracheal tube has been pulled back and is 10 cm above the anselmo near the thoracic inlet. IMPRESSION: Endotracheal tube has been pulled back and is 10 cm above the anselmo near the thoracic inlet. Remainder findings are stable. may need thoracentesis soon (3) Sepsis Assessment & Plan: Pt cachetic and presented on admission with multiple pressure injuries. Partial thickness pressure injury Cleft of L ear(L)1.2cm x (W)0.4cm. Base of wound moist and viable with small amt sanguineous exudate. Partial thickness pressure injury cleft of R ear(L)0.5cm x (W)0.7cm. Base of wound moist and viable Periwound erythematous.Small amt sanguineous exudate noted. Sacral DTPI(L)5cm x (W)10.5cm. Base of injury is purple with maroon borders. Coccygeal bony protrusion with darker skin tone, and small opening noted to R gluteus (L)0.5cm x (W)0.5cm within base of injury. No further skin breakdown periwound. Intact blood blister noted to R 1st metatarsal head(L)1.1cm x (W)2.5cm. DTPI noted to L heel extending into plantar aspect. Base of injury presents as an intact blood filled blister. Periwound is boggy with non-blanching erythema. R heel is boggy but blanchable. wounds unlikely etiology of sepsis respiratory but given current condition high risk for breakdown and worsening will monitor closely discussed with RN and staff great care being provided Tx.Plan: Apply Betadine to clefts of R and L ears. Pad oxygen tubing with gauze and keep oxygen tubing loose. Apply Moisture Barrier Paste to Sacrum. Cover with Optifoam drsg. Change every 3 days and prn. Apply Betadine to L heel. Cover with Optifoam drsg. Change every 3 days and prn. Apply Betadine to R 1st metatarsal head. Cover with Optifoam drsg. Change every 3 days and prn. Apply Cavilon Skin Barrier R heel. Cover with Optifoam drsg. Change every 7 days and prn. Reposition at least every 2hours or as tolerated. Off-load heels with pillow. on air mattress but not very comfortable appearing cont current care / pulm management (4) Severe anemia (5) Nosocomial pneumonia (6) Atrial fibrillation (7) Acute metabolic encephalopathy (8) History of CVA (cerebrovascular accident) (9) Diabetes mellitus (10) Hypothyroidism (11) Alzheimer's dementia (12) PVC (premature ventricular contraction) (13) Hypertension (14) Squamous cell esophageal cancer (15) Feeding by G-tube (16) Dehydration (17) Anemia (18) Severe malnutrition Assessment & Plan: DAILY ESTIMATED NEEDS: Needs based on underweight, suspected wt loss, wounds/ 63kg 25-33 kcals/kg 4955-8841 total kcals 1.25-2 g protein/kg 78-126 g total protein 25-30 mL/kg 5367-4563 total fluid mLs NUTRITION DIAGNOSIS: * Swallowing difficulty R/T dysphagia w/ h/o CVA as evidenced by now s/p recent PEG placement (08/08/19), on GT feeds, held at time, s/p code blue (09/07), orally intubated, now extubated. * Increased kcal/prot intake needs R/T suspected significant wt loss and underweight status, wounds as evidenced by 10lbs/6.7% wt loss in 1 month, 76% IBW w/ BMI of 18.4, admitted w/ DTPI wound @ sacrum, Lt heel, partial thickness pressure injury cleft of R L ear. CURRENT TF:Osmolite 1.2 @ 60ml/hr x 22 hrs ENTERAL NUTRITION RECOMMENDATIONS: Osmolite 1.2 @ 60ml/hr x 22 hrs + Prosource x 1 to provide 1320ml, 1584kcal, 73g +11g prot, 1082ml free water - Add Prosource x 1 to meet protein needs - HOLD 1 hr before and after synthroid meds. add Prosource 1 pack daily to better meet est pro needs - Flush per MD/ HOB over 30 degrees WITH ELEV BG, rec TF change to Glucerna 1.2 w/ a goal of 60ml/hr x22 hrs to provide 1320ml, 1584kcal, 79g prot ADDITIONAL RECOMMENDATIONS: * PER SNF: HT=6'1" WT= 139lbs ("August weight" from SNF) -> calibrated bedscale wt * Monitor K, need for TF change (K 5.9 upon adm, now wnl) * Wound care: add Vit C 500mg QD + Wesley 1pkt BID via PEG * Monitor BGs, need for NISS: h/o DM per MD (checking A1C not suggested given low hgb) (19) Encounter for PEG (percutaneous endoscopic gastrostomy) (20) At high risk for aspiration (21) Pleural effusion (22) Suspected COVID-19 virus infection Jan Mora Sep 23, 2019 20:29
--- NOTE | 2019-09-23 22:23 | Internal Med Progress Note ---
Subjective Physician Name Lamont Hayes Attending Physician Lamont Hayes MD Current Medications Medications (Trade) Dose Ordered Sig/Kike Route PRN Reason Start Time Stop Time Status Last Admin Dose Admin Acetaminophen (Tylenol) 650 mg Q4H PRN ORAL fever 09/22/19 02:55 10/07/19 02:54 Amlodipine Besylate (Norvasc) 5 mg BID@0900,2100 ORAL 09/22/19 09:00 10/22/19 08:59 09/23/19 09:31 Heparin Sodium (Porcine) (Heparin 5000 units/ml) 5,000 units EVERY 12 HOURS SUBQ 09/22/19 09:00 10/22/19 08:59 09/23/19 20:34 Levothyroxine Sodium (Synthroid) 75 mcg DAILY@0630 ORAL 09/22/19 06:30 10/07/19 08:29 09/23/19 07:01 Lorazepam (Ativan 2mg/ml 1ml) 1 mg Q4H PRN IV For Anxiety 09/22/19 02:57 09/24/19 02:56 Mirtazapine (Remeron) 7.5 mg BEDTIME ORAL 09/22/19 21:00 12/06/19 20:59 09/23/19 20:29 Nitroglycerin (Ntg) 0.4 mg Q5M PRN SL Prn Chest Pain 09/22/19 02:35 10/07/19 04:29 Ondansetron HCl (Zofran) 4 mg Q6H PRN IVP Nausea & Vomiting 09/22/19 02:58 10/07/19 02:57 Pantoprazole (Protonix) 40 mg Q12HR IVP 09/22/19 09:00 10/10/19 08:59 09/23/19 20:29 Polyethylene Glycol (Miralax) 17 gm DAILYPRN PRN ORAL Constipation 09/22/19 02:58 10/07/19 02:57 Promethazine HCl/ Codeine (Phenergan with Codeine) 5 ml Q4H PRN ORAL For Cough 09/22/19 02:59 10/07/19 02:58 Quetiapine Fumarate (SEROqueL) 25 mg Q8H PRN NG Agitation 09/22/19 05:15 10/30/19 13:14 Allergies: Coded Allergies: PENICILLINS (Verified Allergy, Unknown, 10/27/18) tolretas cephalosporins Subjective open eyes with deep stimulation, NAD. Objective Last Vital Signs Date Time Temp Pulse Resp B/P (MAP) Pulse Ox O2 Delivery O2 Flow Rate FiO2 09/23/19 20:31 59 118/59 09/23/19 20:00 98.9 20 95 09/23/19 16:00 3.0 09/23/19 09:00 Nasal Cannula 09/22/19 19:34 28 Laboratory Tests Test 09/23/19 05:40 White Blood Count 4.8 K/UL (4.8-10.8) Red Blood Count 3.86 M/UL (4.70-6.10) L Hemoglobin 10.2 G/DL (14.2-18.0) L Hematocrit 32.3 % (42.0-52.0) L Mean Corpuscular Volume 84 FL (80-99) Mean Corpuscular Hemoglobin 26.5 PG (27.0-31.0) L Mean Corpuscular Hemoglobin Concent 31.7 G/DL (32.0-36.0) L Red Cell Distribution Width 18.1 % (11.6-14.8) H Platelet Count 663 K/UL (150-450) H Mean Platelet Volume 5.8 FL (6.5-10.1) L Neutrophils (%) (Auto) % (45.0-75.0) Lymphocytes (%) (Auto) % (20.0-45.0) Monocytes (%) (Auto) % (1.0-10.0) Eosinophils (%) (Auto) % (0.0-3.0) Basophils (%) (Auto) % (0.0-2.0) Differential Total Cells Counted 100 Neutrophils % (Manual) 57 % (45-75) Lymphocytes % (Manual) 26 % (20-45) Monocytes % (Manual) 12 % (1-10) H Eosinophils % (Manual) 4 % (0-3) H Basophils % (Manual) 1 % (0-2) Band Neutrophils 0 % (0-8) Platelet Estimate Increased H Platelet Morphology Normal Hypochromasia 2+ Anisocytosis 1+ Sodium Level 140 MMOL/L (136-145) Potassium Level 4.9 MMOL/L (3.5-5.1) Chloride Level 104 MMOL/L (98-107) Carbon Dioxide Level 33 MMOL/L (21-32) H Anion Gap 3 mmol/L (5-15) L Blood Urea Nitrogen 20 mg/dL (7-18) H Creatinine 1.0 MG/DL (0.55-1.30) Estimat Glomerular Filtration Rate > 60 mL/min (>60) Glucose Level 96 MG/DL (74-106) Calcium Level 9.5 MG/DL (8.5-10.1) Intake and Output 09/22/19 09/23/19 19:00 07:00 Intake Total 900 ml 60 ml Output Total 1200 ml Balance 900 ml -1140 ml Intake Free Water 240 ml Tube Feeding 660 ml 60 ml Output Urine Total 1200 ml # Voids 1 # Bowel Movements 1 Objective General: responsive with open eyes with deep stimulation. HEENT: NCAT, sclera anicteric, PERRL, Neck: Supple, no significant jugular venous distention, Lungs: Decrease air at bases, no Wheeze or Rales. Heart: Regular rate and rhythm, normal S1/S2, no murmurs, Abdomen: soft, nontender, nondistended. Normoactive bowel sounds, + PEG : Muniz cath. Extremities: No Cyanosis , clubbing or edema. Neuro: Able to move all extremities slowly. Skin: warm, no rash. Assessment/Plan Assessment/Plan ASSESSMENT: This is an 84-year-old male with: 1. Acute respiratory failure with GNB right pneumonia. 2. Urinary tract infection. 3. Right pleural effusion. 4. Esophageal mass. 5. Dysphagia. 6. Diabetes. 7. Alzheimer's dementia. 8. Cerebrovascular disease. 9. Hypothyroidism. 10. Seizure disorder. 11. Iron deficiency anemia. 12. sepsis. TREATMENT: 1. Right side Pneumonia. Chest x-ray revealed right pleural effusion and possible pneumonia. Influenza negative. A Pulmonary consultation has been obtained with Dr. Vania Hui. The patient underwent thoracentesis during previous hospitalization. We will follow recommendation of Pulmonary. Abx: off abx per ID=Dr Matias 2. Urinary tract infection. 3. Right pleural effusion. As above, a Pulmonary consultation has been obtained with Dr. Vania Hui. The patient may require thoracentesis during this hospitalization. 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 A Gastroenterology consultation has been obtained with Dr. Darrick Rosario. 5. Dysphagia. The patient is status post PEG placement on 08/08/2019 at [facility] by Dr. Darrick Rosario. 6. Diabetes type 2. A NovoLog sliding scale has been instituted. 7. Alzheimer's dementia. 8. Cerebrovascular disease, status post cerebrovascular accident. 9. Hypothyroidism. Continue levothyroxine as above. 10. Seizure disorder. 11. Iron deficiency anemia. Lamont Hayes MD Sep 23, 2019 22:23
[2019-09-24] VITALS (21 sets, daily range): BP systolic 69–150; BP diastolic 32–92
[2019-09-24] MEDS ORDERED: Calcium Chloride 10% 10ml carpuject IVP ONE (01:45)
[2019-09-24] MEDS ORDERED: Sodium Bicarbonate 50ml Carp ONE (01:45)
[2019-09-24] MEDS ORDERED: Nitroglycerin Subl 0.4mg tab SL PRN (02:30)
[2019-09-24] MEDS ORDERED: LORazepam Inj 2mg/ml 1ml IV PRN (03:00)
[2019-09-24] MEDS ORDERED: Promethazine/Codeine 5ml UD ORAL PRN (03:00)
[2019-09-24] MEDS ORDERED: Miralax 17gm pkt ORAL PRN (03:00)
--- NOTE | 2019-09-24 03:00 | Diagnostic Imaging Report ---
EXAM: XR Chest, 1 View CLINICAL HISTORY: LINE TECHNIQUE: Frontal view of the chest. COMPARISON: 09/20/2019 IMPRESSION: Increased opacity in the right lung (likely edema) and moderate loculated circumferential pleural effusion. ET tube terminates 5.4 cm from the anselmo.
--- NOTE | 2019-09-24 04:07 | Emergency Room Report ---
History of Present Illness General Chief Complaint: Upper Respiratory Illness Source: Medical Record, PMD Present Illness Allergies: Coded Allergies: PENICILLINS (Verified Allergy, Unknown, 10/27/18) tolretas cephalosporins COVID-19 Screening Contact w/high risk pt: No Recent Travel to affected area: No Experienced COVID-19 symptoms?: Yes COVID-19 symptoms experienced: Shortness of Breath, Cough Nursing Documentation-PMH Past Medical History Deferred: Pt Cognitively Impaired Hx Cardiac Problems: Yes Hx Hypertension: Yes Hx COPD: Yes - RESP FAILURE Hx Diabetes: Yes Hx Cancer: No Hx Gastrointestinal Problems: Yes - G TUBE History Of Psychiatric Problem: Yes - DEPRESSIVE Hx Neurological Problems: Yes Hx Cerebrovascular Accident: Yes Hx Dementia: Yes Physical Exam Vital Signs Date Time Temp Pulse Resp B/P (MAP) Pulse Ox O2 Delivery O2 Flow Rate FiO2 09/20/19 07:00 67 20 147/75 (99) 100 09/20/19 07:39 Nasal Cannula 2.0 28 09/20/19 08:00 98.6 Procedures Critical Care Time Critical Care Time i. I feel this is a highly complex case requiring extensive working including EKG/Rhythm strip, Xray/CT/US, Blood/urine lab work, repeat exams while in ED, and administration of strong opiates/narcotics for pain control, admission to hospital or close patient follow up. Total time: 30 min bedside evaluation and treatment excludes procedures (EKG). Reason for critical care: cardiac arrest, respiratory failure Possible complications: hypotension, hypertension, ID, shock, arrhythmias, metabolic acidosis, end organ damage, respiratory failure. Interventions: ACLS, chest compressions, intubation Course: I was called to the [facility]. Patient became apneic during suctioning and lost pulse. Asystole. Chest compressions started. Patient had tested negative for COVID twice during hospitalization. Patient given calcium and bicarbonate. Given epi x3. I intubated patient for airway protection. Significant suctioning required. Patient regained pulses. Patient moved to ICU. Consultations: nursing staff, EMS, family Performed by: Dr Ramirez Tolerated well condition = critical j. because of unstable vital signs this patient had a condition that could potentially threaten life or limb. I feel this is a critical patient who required my full attention while patient was considered critical. Total Critical Care Time excluding procedures was greater than 35 minutes CPR/Code Blue CPR/Code Blue Narrative CODE BLUE sheet for full narrative Intubation Intubation : Consent: Emergent Intubation Method: orotracheal Tube Size (cm): 7.5 Breath Sounds after Intubation: equal Intubation Complications: no complications Post Intubation Xray: Yes Attempts: One Patient Tolerated: Well Complications: None Medical Decision Making Diagnostic Impression: Primary Impression: Pleural effusion Additional Impressions: Nosocomial pneumonia Sepsis UTI (urinary tract infection) ER Course I was called to this CODE BLUE at the 4 E. Patient became apneic during suctioning. Went into asystole. Chest compressions started. Patient admitted for pleural effusion which had undergone thoracentesis recently. Patient had also self extubated and had been doing well. Patient given epi x3. Given calcium and bicarbonate. I intubated patient for airway protection. Significant suctioning required during intubation. Patient regained pulses. Chest x-ray confirms ET tube placement. Patient moved to ICU. Care resumed by admitting physicians Last Vital Signs Date Time Temp Pulse Resp B/P (MAP) Pulse Ox O2 Delivery O2 Flow Rate FiO2 09/23/19 23:43 98.3 63 20 146/66 (92) 93 09/23/19 21:00 Nasal Cannula 3.0 09/22/19 19:34 28 Disposition: ADMITTED INPATIENT Condition: Critical Referrals: Vania Hui MD (PCP) Daniel Ramirez MD Sep 24, 2019 04:07
[2019-09-24 07:51] LABS: BASOPHILS % (AUTO) 0.9 % (0.0-2.0); EOSINOPHILS % (AUTO) 0.7 % (0.0-3.0); HEMATOCRIT 31.2 % (42.0-52.0); HEMOGLOBIN 10.1 G/DL (14.2-18.0); LYMPHOCYTES % (AUTO) 10.5 % (20.0-45.0); MEAN CORPUSCULAR VOLUME 84 FL (80-99); MONOCYTES % (AUTO) 12.7 % (1.0-10.0); NEUTROPHILS % (AUTO) 75.1 % (45.0-75.0); PLATELET COUNT 638 K/UL (150-450); RED CELL DISTRIBUTION WIDTH 18.1 % (11.6-14.8); WHITE BLOOD COUNT 8.4 K/UL (4.8-10.8)
[2019-09-24 07:55] LABS: ANION GAP 6 mmol/L (5-15); BLOOD UREA NITROGEN 28 mg/dL (7-18); CALCIUM 9.7 MG/DL (8.5-10.1); CARBON DIOXIDE 31 MMOL/L (21-32); CHLORIDE 105 MMOL/L (98-107); CREATININE 1.3 MG/DL (0.55-1.30); POTASSIUM 5.1 MMOL/L (3.5-5.1); SODIUM 142 MMOL/L (136-145)
--- NOTE | 2019-09-24 08:37 | Pulmonolgy Critical Care Note ---
Critical Care - Asmt/Plan Assessment/Plan: ASSESSMENT Sepsis Acute respiratory failure requiring intubation, s/p extubation 09/19 s/p CP arrest and reintubation 09/23 Pseudomonas and Proteus pneumonia Pleural effusion, s/p thoracentesis 09/18 Acute kidney injury, resolved -secondary to dehydration Suspected COVID 19 infection -ruled out x 2 Hypothyroidism with elevated TSH Severe anemia Transaminitis Dysphagia, feeding by G-tube Cerebrovascular disease with hx of CVA Diabetes mellitus Severe protein calorie malnutrition Multiply pressure injury, present on admission Seizure disorder Alzheimer demetia PLAN of CARE ICU vent support, pulmonary toilet ABG now and titrate settings fup with CXR s/p 09/[address] effusion - 2050 ml pleural fluid cx NGT pathology - NGT initial CXR with near complete resolution, no complication CXR 09/23 worsening R pleural opacity, possible recurrent effusion will fup with CXR HONEY CoV PCR x 2 -NGT; off isolation influenza screen NGT BCX NGT SCX + Pseudomonas, Proteus UCX + Abi , likely colonization completed abx as per IF aspiration precautions, GTF , protein supplements as per RD monitor H&H with goal to keep Hgb above 7 BS management trend LFT wound care as per surgeon recommendation Synthroid dose uptitrated, repeat TSH in 3 wks supportive care case discussed and evaluated by supervising physician Critical Care - Objective Last 24 Hour Vital Signs Date Time Temp Pulse Resp B/P (MAP) Pulse Ox O2 Delivery O2 Flow Rate FiO2 09/24/19 08:13 100 09/24/19 08:00 74 14 118/65 (82) 100 09/24/19 07:25 96 26 100 Mechanical Ventilator 100 09/24/19 07:21 72 12 100 09/24/19 06:00 66 12 129/60 (83) 100 09/24/19 05:00 61 12 135/66 (89) 100 09/24/19 04:00 96.8 60 12 79/36 (50) 100 09/24/19 04:00 Mechanical Ventilator 09/24/19 03:00 107 18 100 09/24/19 03:00 62 12 69/32 (44) 100 09/24/19 02:30 100 09/24/19 02:30 Mechanical Ventilator 09/24/19 02:20 96.9 67 12 148/75 (99) 100 09/24/19 01:54 109 19 100 09/23/19 23:43 98.3 63 20 146/66 (92) 93 09/23/19 21:00 Nasal Cannula 3.0 09/23/19 20:31 59 118/59 09/23/19 20:00 98.9 59 20 118/59 (78) 95 09/23/19 16:00 98.9 57 19 127/52 (77) 97 09/23/19 16:00 3.0 09/23/19 12:00 3.0 09/23/19 12:00 97.5 72 19 143/70 (94) 96 09/23/19 09:31 74 167/69 09/23/19 09:00 Nasal Cannula 3.0 Objective: Condition: critical, intubated HEENT: atraumatic, normocephalic, OP with ET in place, intact Lungs: overall clear Heart: HR/BP stable Abdomen: soft, active bowel sounds, G tube Extremities: no C/C/E Critical Care - Subjective Interval Events: s/p CP arrest eatly am 09/23 s/p oral intubation Condition: critical EKG Rhythm: Sinus Bradycardia FI02: 100 Vent Support Breath Rate: 12 Vent Support Mode: AC Vent Tidal Volume: 550 Sputum Amount: Small PEEP: 5.0 PIP: 35 Tube Feeding Amount: 0 I&O: Intake and Output 09/23/19 09/24/19 19:00 07:00 Intake Total 960 ml 970 ml Output Total 470 ml Balance 960 ml 500 ml Intake Free Water 240 ml 410 ml Tube Feeding 720 ml 360 ml Blood Product 200 ml Output Urine Total 470 ml CXR: Increased opacity in the right lung (likely edema) and moderate loculated circumferential pleural effusion. ET tube terminates 5.4 cm from the anselmo. ET-Tube: 7.5 ET Position: 26 Miranda Pimentel HOSPICE PATIENT CARE SECRETARY Sep 24, 2019 08:37
[2019-09-24] MEDS ORDERED: Albuterol/Ipratropium 3ml neb HHN PRN (08:45)
[2019-09-24] MEDS: Heparin 5000 units/ml inj SUBQ SCH ×2 (08:55→20:36)
[2019-09-24] MEDS: Pantoprazole Inj IVP SCH ×2 (08:56→20:32)
--- NOTE | 2019-09-24 10:20 | Nephrology Progress Note ---
Assessment/Plan Problem List: (1) RAMAN (acute kidney injury) Assessment: Serum creatinine normalized with hydration (2) Dehydration (3) Suspected COVID-19 virus infection (4) Anemia (5) Sepsis (6) Diabetes mellitus (7) Hypothyroidism Assessment - Acute renal failure - Severe anemia - Sepsis, pneumonia, acute respiratory failure, suspected: Viewed 19 virus infection - Diabetes mellitus - Hypothyroidism - Feeding by G-tube - Squamous cell esophageal cancer - History of CVA (cerebrovascular accident) Plan Patient was coded early this morning and back in ICU intubated Remains stable from a renal standpoint of view Previously: Pneumonia SARS-CoV neg x2 MRSA screen pos sp cx: PSA and proteus Changes Seroquel to "as needed" due to bradycardia Discontinue IV fluid Monitor renal parameters, serum creatinine Adjust electrolytes with supplements Increase Synthroid dose Avoid nephrotoxic's as possible Ventilator management Urine studies Per orders Subjective ROS Limited/Unobtainable: Yes Objective Objective Last 24 Hour Vital Signs Date Time Temp Pulse Resp B/P (MAP) Pulse Ox O2 Delivery O2 Flow Rate FiO2 09/24/19 09:07 87 16 100 09/24/19 08:54 87 118/65 09/24/19 08:13 100 09/24/19 08:00 74 14 118/65 (82) 100 09/24/19 07:25 96 26 100 Mechanical Ventilator 100 09/24/19 07:21 72 12 100 09/24/19 06:00 66 12 129/60 (83) 100 09/24/19 05:00 61 12 135/66 (89) 100 09/24/19 04:00 96.8 60 12 79/36 (50) 100 09/24/19 04:00 Mechanical Ventilator 09/24/19 03:00 107 18 100 09/24/19 03:00 62 12 69/32 (44) 100 09/24/19 02:30 100 09/24/19 02:30 Mechanical Ventilator 09/24/19 02:20 96.9 67 12 148/75 (99) 100 09/24/19 01:54 109 19 100 09/23/19 23:43 98.3 63 20 146/66 (92) 93 09/23/19 21:00 Nasal Cannula 3.0 09/23/19 20:31 59 118/59 09/23/19 20:00 98.9 59 20 118/59 (78) 95 09/23/19 16:00 98.9 57 19 127/52 (77) 97 09/23/19 16:00 3.0 09/23/19 12:00 3.0 09/23/19 12:00 97.5 72 19 143/70 (94) 96 Intake and Output 09/23/19 09/24/19 19:00 07:00 Intake Total 960 ml 970 ml Output Total 470 ml Balance 960 ml 500 ml Intake Free Water 240 ml 410 ml Tube Feeding 720 ml 360 ml Blood Product 200 ml Output Urine Total 470 ml Laboratory Tests 09/24/19 02:56: Arterial Blood pH 7.371, Arterial Blood Partial Pressure CO2 47.9H, Arterial Blood Partial Pressure O2 123.1H, Arterial Blood HCO3 27.1H, Arterial Blood Oxygen Saturation 98.0, Arterial Blood Base Excess 1.5, Watson Test Positive 09/24/19 06:58: White Blood Count 8.4#, Red Blood Count 3.70L, Hemoglobin 10.1L, Hematocrit 31.2L, Mean Corpuscular Volume 84, Mean Corpuscular Hemoglobin 27.3, Mean Corpuscular Hemoglobin Concent 32.4, Red Cell Distribution Width 18.1H, Platelet Count 638H, Mean Platelet Volume 5.7L, Neutrophils (%) (Auto) 75.1H, Lymphocytes (%) (Auto) 10.5L, Monocytes (%) (Auto) 12.7H, Eosinophils (%) (Auto ) 0.7, Basophils (%) (Auto) 0.9, Sodium Level 142, Potassium Level 5.1, Chloride Level 105, Carbon Dioxide Level 31, Anion Gap 6, Blood Urea Nitrogen 28H, Creatinine 1.3, Estimat Glomerular Filtration Rate > 60, Glucose Level 98, Calcium Level 9.7, Troponin I 0.055 09/24/19 08:56: Arterial Blood pH 7.444, Arterial Blood Partial Pressure CO2 42.8, Arterial Blood Partial Pressure O2 283.7H, Arterial Blood HCO3 28.7H, Arterial Blood Oxygen Saturation 99.0, Arterial Blood Base Excess 4.2H, Watson Test Positive Height (Feet): 5 Height (Inches): 11.00 Weight (Pounds): 183 General Appearance: no apparent distress EENT: other Cardiovascular: other - Variable rate Respiratory/Chest: decreased breath sounds - Intubated and vented Abdomen: distended Objective no change Fouladian,Clovis MD Sep 24, 2019 10:20
--- NOTE | 2019-09-24 10:43 | Infectious Diseases Prog Note ---
Assessment/Plan Assessment/Plan Afebrile No leukocytosis PNA VDRF, sp intubation 09/08, sp extubation 09/18, now on NC SARS-CoV neg x2 MRSA screen pos sp cx: PSA (hensley S) and proteus (hensley S) 09/17 CXR: Similar bilateral interstitial prominence, greater on the right.Stable right perihilar, mid and lower lung opacities. Similar left lung base opacity. Small left pleural effusion is stable. Loculated right pleural effusion is stable. No pneumothorax. CXR: Right pleural effusion, also demonstrated on prior 08/09/2019 exam, slightly increased. Hazy right lung parenchymal opacity probably represents a superimposed pleural fluid but infiltrate also possible. R pleural effusion, exudative -09/18 SP thorancetesis; removal of 2050 mL fluid; Fluid prot 5 (serum prot 7.2 ); cx NTD QTc 419 DM HTN CVA Dementia Nonverbal G tube Plan: monitor off abx 09/19 SPcefepime # /09/09 SP vanc #4 ( Cr increased) f/u Bcx ICU care monitor temp and CBC DC COVID isolation isolation precaution per hospital protocol DW RN Thank you for this consult. [facility] will continue to follow the patient with you. Subjective Allergies: Coded Allergies: PENICILLINS (Verified Allergy, Unknown, 10/27/18) tolretas cephalosporins Subjective Afebrile No Leukocytosis Objective Vital Signs Last 24 Hour Vital Signs Date Time Temp Pulse Resp B/P (MAP) Pulse Ox O2 Delivery O2 Flow Rate FiO2 09/24/19 10:00 86 19 142/73 (96) 99 09/24/19 09:07 87 16 100 09/24/19 09:00 95 25 150/92 (111) 100 09/24/19 08:54 87 118/65 09/24/19 08:52 87 09/24/19 08:13 100 09/24/19 08:00 74 14 118/65 (82) 100 09/24/19 07:25 96 26 100 Mechanical Ventilator 100 09/24/19 07:21 72 12 100 09/24/19 06:00 66 12 129/60 (83) 100 09/24/19 05:00 61 12 135/66 (89) 100 09/24/19 04:00 96.8 60 12 79/36 (50) 100 09/24/19 04:00 Mechanical Ventilator 09/24/19 03:00 107 18 100 09/24/19 03:00 62 12 69/32 (44) 100 09/24/19 02:30 100 09/24/19 02:30 Mechanical Ventilator 09/24/19 02:20 96.9 67 12 148/75 (99) 100 09/24/19 01:54 109 19 100 09/23/19 23:43 98.3 63 20 146/66 (92) 93 09/23/19 21:00 Nasal Cannula 3.0 09/23/19 20:31 59 118/59 09/23/19 20:00 98.9 59 20 118/59 (78) 95 09/23/19 16:00 98.9 57 19 127/52 (77) 97 09/23/19 16:00 3.0 09/23/19 12:00 3.0 09/23/19 12:00 97.5 72 19 143/70 (94) 96 Height (Feet): 5 Height (Inches): 11.00 Weight (Pounds): 183 Objective Gen: NAD. on Vent HEENT: ETT. oral secretions Resp: coarse. equal chest rise. regular rate and rhythm. Abd: Soft. nondistended. G tube site c/d/i. Laboratory Tests Test 09/24/19 02:56 09/24/19 06:58 09/24/19 08:56 Arterial Blood pH 7.371 (7.350-7.450) 7.444 (7.350-7.450) Arterial Blood Partial Pressure CO2 47.9 mmHg (35.0-45.0) H 42.8 mmHg (35.0-45.0) Arterial Blood Partial Pressure O2 123.1 mmHg (75.0-100.0) H 283.7 mmHg (75.0-100.0) H Arterial Blood HCO3 27.1 mmol/L (22.0-26.0) H 28.7 mmol/L (22.0-26.0) H Arterial Blood Oxygen Saturation 98.0 % (95-100) 99.0 % (95-100) Arterial Blood Base Excess 1.5 (-2-2) 4.2 (-2-2) H Watson Test Positive Positive White Blood Count 8.4 K/UL (4.8-10.8) # Red Blood Count 3.70 M/UL (4.70-6.10) L Hemoglobin 10.1 G/DL (14.2-18.0) L Hematocrit 31.2 % (42.0-52.0) L Mean Corpuscular Volume 84 FL (80-99) Mean Corpuscular Hemoglobin 27.3 PG (27.0-31.0) Mean Corpuscular Hemoglobin Concent 32.4 G/DL (32.0-36.0) Red Cell Distribution Width 18.1 % (11.6-14.8) H Platelet Count 638 K/UL (150-450) H Mean Platelet Volume 5.7 FL (6.5-10.1) L Neutrophils (%) (Auto) 75.1 % (45.0-75.0) H Lymphocytes (%) (Auto) 10.5 % (20.0-45.0) L Monocytes (%) (Auto) 12.7 % (1.0-10.0) H Eosinophils (%) (Auto) 0.7 % (0.0-3.0) Basophils (%) (Auto) 0.9 % (0.0-2.0) Sodium Level 142 MMOL/L (136-145) Potassium Level 5.1 MMOL/L (3.5-5.1) Chloride Level 105 MMOL/L (98-107) Carbon Dioxide Level 31 MMOL/L (21-32) Anion Gap 6 mmol/L (5-15) Blood Urea Nitrogen 28 mg/dL (7-18) H Creatinine 1.3 MG/DL (0.55-1.30) Estimat Glomerular Filtration Rate > 60 mL/min (>60) Glucose Level 98 MG/DL (74-106) Calcium Level 9.7 MG/DL (8.5-10.1) Troponin I 0.055 ng/mL (0.000-0.056) Current Medications Medications (Trade) Dose Ordered Sig/Kike Route PRN Reason Start Time Stop Time Status Last Admin Dose Admin Acetaminophen (Tylenol) 650 mg Q4H PRN ORAL fever 09/24/19 03:00 10/07/19 02:54 Albuterol/ Ipratropium (Albuterol/ Ipratropium) 3 ml Q4HRT PRN HHN sob 09/24/19 08:45 09/29/19 08:44 Amlodipine Besylate (Norvasc) 5 mg BID@0900,2100 NG 09/24/19 21:00 10/22/19 08:59 Heparin Sodium (Porcine) (Heparin 5000 units/ml) 5,000 units EVERY 12 HOURS SUBQ 09/24/19 09:00 10/22/19 08:59 09/24/19 08:55 Levothyroxine Sodium (Synthroid) 75 mcg DAILY@0630 ORAL 09/24/19 06:30 10/07/19 08:29 09/24/19 07:32 Lorazepam (Ativan 2mg/ml 1ml) 1 mg Q4H PRN IV For Anxiety 09/24/19 03:00 09/26/19 09:00 Mirtazapine (Remeron) 7.5 mg BEDTIME ORAL 09/24/19 21:00 12/06/19 20:59 Nitroglycerin (Ntg) 0.4 mg Q5M PRN SL Prn Chest Pain 09/24/19 02:30 10/07/19 04:29 Ondansetron HCl (Zofran) 4 mg Q6H PRN IVP Nausea & Vomiting 09/24/19 03:00 10/07/19 02:57 Pantoprazole (Protonix) 40 mg Q12HR IVP 09/24/19 09:00 10/10/19 08:59 09/24/19 08:56 Polyethylene Glycol (Miralax) 17 gm DAILYPRN PRN ORAL Constipation 09/24/19 03:00 10/07/19 02:57 Promethazine HCl/ Codeine (Phenergan with Codeine) 5 ml Q4H PRN ORAL For Cough 09/24/19 03:00 10/07/19 02:58 Quetiapine Fumarate (SEROqueL) 25 mg Q8H PRN NG Agitation 09/24/19 02:35 10/30/19 02:34 Tomas Lira MD Sep 24, 2019 10:43
--- NOTE | 2019-09-24 12:57 | Internal Med Progress Note ---
Subjective Date of Service: Sep 24, 2019 Physician Name Xander Bah Attending Physician Lamont Hayes MD Current Medications Medications (Trade) Dose Ordered Sig/Kike Route PRN Reason Start Time Stop Time Status Last Admin Dose Admin Acetaminophen (Tylenol) 650 mg Q4H PRN ORAL fever 09/24/19 03:00 10/07/19 02:54 Albuterol/ Ipratropium (Albuterol/ Ipratropium) 3 ml Q4HRT PRN HHN sob 09/24/19 08:45 09/29/19 08:44 Amlodipine Besylate (Norvasc) 5 mg BID@0900,2100 NG 09/24/19 21:00 10/22/19 08:59 Heparin Sodium (Porcine) (Heparin 5000 units/ml) 5,000 units EVERY 12 HOURS SUBQ 09/24/19 09:00 10/22/19 08:59 09/24/19 08:55 Levothyroxine Sodium (Synthroid) 75 mcg DAILY@0630 ORAL 09/24/19 06:30 10/07/19 08:29 09/24/19 07:32 Lorazepam (Ativan 2mg/ml 1ml) 1 mg Q4H PRN IV For Anxiety 09/24/19 03:00 09/26/19 09:00 Mirtazapine (Remeron) 7.5 mg BEDTIME ORAL 09/24/19 21:00 12/06/19 20:59 Nitroglycerin (Ntg) 0.4 mg Q5M PRN SL Prn Chest Pain 09/24/19 02:30 10/07/19 04:29 Ondansetron HCl (Zofran) 4 mg Q6H PRN IVP Nausea & Vomiting 09/24/19 03:00 10/07/19 02:57 Pantoprazole (Protonix) 40 mg Q12HR IVP 09/24/19 09:00 10/10/19 08:59 09/24/19 08:56 Polyethylene Glycol (Miralax) 17 gm DAILYPRN PRN ORAL Constipation 09/24/19 03:00 10/07/19 02:57 Promethazine HCl/ Codeine (Phenergan with Codeine) 5 ml Q4H PRN ORAL For Cough 09/24/19 03:00 10/07/19 02:58 Quetiapine Fumarate (SEROqueL) 25 mg Q8H PRN NG Agitation 09/24/19 02:35 10/30/19 02:34 Allergies: Coded Allergies: PENICILLINS (Verified Allergy, Unknown, 10/27/18) tolretas cephalosporins ROS Limited/Unobtainable: Yes Subjective 84 YO M admitted with cough and congestion. Cover for Int Med-Dr Hayes. Reintubated 09/24/19 after cardiopulmonary arrest-see code blue. ICU Objective Last Vital Signs Date Time Temp Pulse Resp B/P (MAP) Pulse Ox O2 Delivery O2 Flow Rate FiO2 09/24/19 11:00 85 18 129/66 (87) 99 09/24/19 10:54 40 09/24/19 07:25 Mechanical Ventilator 09/24/19 04:00 96.8 09/23/19 21:00 3.0 Laboratory Tests Test 09/24/19 02:56 09/24/19 06:58 09/24/19 08:56 Arterial Blood pH 7.371 (7.350-7.450) 7.444 (7.350-7.450) Arterial Blood Partial Pressure CO2 47.9 mmHg (35.0-45.0) H 42.8 mmHg (35.0-45.0) Arterial Blood Partial Pressure O2 123.1 mmHg (75.0-100.0) H 283.7 mmHg (75.0-100.0) H Arterial Blood HCO3 27.1 mmol/L (22.0-26.0) H 28.7 mmol/L (22.0-26.0) H Arterial Blood Oxygen Saturation 98.0 % (95-100) 99.0 % (95-100) Arterial Blood Base Excess 1.5 (-2-2) 4.2 (-2-2) H Watson Test Positive Positive White Blood Count 8.4 K/UL (4.8-10.8) # Red Blood Count 3.70 M/UL (4.70-6.10) L Hemoglobin 10.1 G/DL (14.2-18.0) L Hematocrit 31.2 % (42.0-52.0) L Mean Corpuscular Volume 84 FL (80-99) Mean Corpuscular Hemoglobin 27.3 PG (27.0-31.0) Mean Corpuscular Hemoglobin Concent 32.4 G/DL (32.0-36.0) Red Cell Distribution Width 18.1 % (11.6-14.8) H Platelet Count 638 K/UL (150-450) H Mean Platelet Volume 5.7 FL (6.5-10.1) L Neutrophils (%) (Auto) 75.1 % (45.0-75.0) H Lymphocytes (%) (Auto) 10.5 % (20.0-45.0) L Monocytes (%) (Auto) 12.7 % (1.0-10.0) H Eosinophils (%) (Auto) 0.7 % (0.0-3.0) Basophils (%) (Auto) 0.9 % (0.0-2.0) Sodium Level 142 MMOL/L (136-145) Potassium Level 5.1 MMOL/L (3.5-5.1) Chloride Level 105 MMOL/L (98-107) Carbon Dioxide Level 31 MMOL/L (21-32) Anion Gap 6 mmol/L (5-15) Blood Urea Nitrogen 28 mg/dL (7-18) H Creatinine 1.3 MG/DL (0.55-1.30) Estimat Glomerular Filtration Rate > 60 mL/min (>60) Glucose Level 98 MG/DL (74-106) Calcium Level 9.7 MG/DL (8.5-10.1) Troponin I 0.055 ng/mL (0.000-0.056) Intake and Output 09/23/19 09/24/19 19:00 07:00 Intake Total 960 ml 970 ml Output Total 470 ml Balance 960 ml 500 ml Intake Free Water 240 ml 410 ml Tube Feeding 720 ml 360 ml Blood Product 200 ml Output Urine Total 470 ml Objective PHYSICAL EXAMINATION: GENERAL: The patient is a thin-appearing male, in no apparent distress. HEENT: Eyes, pupils are equal and responsive to light and accommodation. Extraocular movements are intact. NECK: Supple without lymphadenopathy. CHEST: Mech vent; Lungs are clear to auscultation bilaterally with decreased breath sounds on the right. There are no wheezes appreciated. ABDOMEN: Soft, nontender, and nondistended. Positive bowel sounds. No evidence of hepatosplenomegaly. Currently, no rebound or guarding noted. EXTREMITIES: Negative for clubbing, cyanosis, or edema. RECTAL/GENITAL: Not performed. NEUROLOGIC: Cranial nerves II through XII are grossly intact without focal deficits. Assessment/Plan Assessment/Plan ASSESSMENT: This is an 84-year-old male with: 1. Possible right pneumonia=pseudamonas 2. Urinary tract infection=jennifer 3. Right pleural effusion. 4. Esophageal mass. 5. Dysphagia. 6. Diabetes. 7. Alzheimer's dementia. 8. Cerebrovascular disease. 9. Hypothyroidism. 10. Seizure disorder. 11. Iron deficiency anemia. 13. Respiratory failure 14. S/P cardiopulmonary arrest TREATMENT: 1. Right perihilar Pneumonia/pleural effusion. COVID 19 and Influenza negative. A Pulmonary consultation has been obtained with Dr. Vania Hui. S/P right thoracentesis 09/19/19. We will follow recommendation of Pulmonary. ID=Dr Roach ABX= S/P cefepime 2. Urinary tract infection. . A urine culture =jennifer 3. Right pleural effusion. As above, a Pulmonary consultation has been obtained with Dr. Vania Hui. The patient may require thoracentesis during this hospitalization. 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 A Gastroenterology consultation has been obtained with Dr. Darrick Rosario. 5. Dysphagia. The patient is status post PEG placement on 08/08/2019 at [facility] by Dr. Darrick Rosario. 6. Diabetes type 2. A NovoLog sliding scale has been instituted. 7. Alzheimer's dementia. 8. Cerebrovascular disease, status post cerebrovascular accident. 9. Hypothyroidism. Continue levothyroxine as above. 10. Seizure disorder. 11. Iron deficiency anemia. 12. reintubated 09/24/19-see code blue note Xander Bah MD Sep 24, 2019 12:57
--- NOTE | 2019-09-24 15:06 | Surgery Progress Note ---
Surgery Progress Note Subjective Additional Comments no acute events labs noted exam stable imaging noted Objective Last 24 Hour Vital Signs Date Time Temp Pulse Resp B/P (MAP) Pulse Ox O2 Delivery O2 Flow Rate FiO2 09/24/19 14:39 79 14 40 09/24/19 14:00 78 21 128/62 (84) 98 09/24/19 13:00 79 17 119/60 (79) 99 09/24/19 12:51 79 12 40 09/24/19 12:00 80 09/24/19 12:00 Mechanical Ventilator 09/24/19 12:00 98.1 82 14 117/58 (77) 98 09/24/19 11:00 85 18 129/66 (87) 99 09/24/19 10:54 84 22 40 09/24/19 10:00 86 19 142/73 (96) 99 09/24/19 09:07 87 16 50 09/24/19 09:00 95 25 150/92 (111) 100 09/24/19 08:54 87 118/65 09/24/19 08:52 87 09/24/19 08:13 100 09/24/19 08:00 74 14 118/65 (82) 100 09/24/19 07:25 96 26 100 Mechanical Ventilator 100 09/24/19 07:21 72 12 100 09/24/19 06:00 66 12 129/60 (83) 100 09/24/19 05:00 61 12 135/66 (89) 100 09/24/19 04:00 96.8 60 12 79/36 (50) 100 09/24/19 04:00 Mechanical Ventilator 09/24/19 03:00 107 18 100 09/24/19 03:00 62 12 69/32 (44) 100 09/24/19 02:30 100 09/24/19 02:30 Mechanical Ventilator 09/24/19 02:20 96.9 67 12 148/75 (99) 100 09/24/19 01:54 109 19 100 09/23/19 23:43 98.3 63 20 146/66 (92) 93 09/23/19 21:00 Nasal Cannula 3.0 09/23/19 20:31 59 118/59 09/23/19 20:00 98.9 59 20 118/59 (78) 95 09/23/19 16:00 98.9 57 19 127/52 (77) 97 4/17/20 16:00 3.0 I&O Intake and Output 09/23/19 09/24/19 19:00 07:00 Intake Total 960 ml 970 ml Output Total 470 ml Balance 960 ml 500 ml Intake Free Water 240 ml 410 ml Tube Feeding 720 ml 360 ml Blood Product 200 ml Output Urine Total 470 ml Dressing: other Wound: other Drains: other Cardiovascular: RSR Respiratory: decreased breath sounds Abdomen: soft, non-tender, present bowel sounds Extremities: no cyanosis, other Laboratory Tests Test 09/24/19 02:56 09/24/19 06:58 09/24/19 08:56 Arterial Blood pH 7.371 (7.350-7.450) 7.444 (7.350-7.450) Arterial Blood Partial Pressure CO2 47.9 mmHg (35.0-45.0) H 42.8 mmHg (35.0-45.0) Arterial Blood Partial Pressure O2 123.1 mmHg (75.0-100.0) H 283.7 mmHg (75.0-100.0) H Arterial Blood HCO3 27.1 mmol/L (22.0-26.0) H 28.7 mmol/L (22.0-26.0) H Arterial Blood Oxygen Saturation 98.0 % (95-100) 99.0 % (95-100) Arterial Blood Base Excess 1.5 (-2-2) 4.2 (-2-2) H Watson Test Positive Positive White Blood Count 8.4 K/UL (4.8-10.8) # Red Blood Count 3.70 M/UL (4.70-6.10) L Hemoglobin 10.1 G/DL (14.2-18.0) L Hematocrit 31.2 % (42.0-52.0) L Mean Corpuscular Volume 84 FL (80-99) Mean Corpuscular Hemoglobin 27.3 PG (27.0-31.0) Mean Corpuscular Hemoglobin Concent 32.4 G/DL (32.0-36.0) Red Cell Distribution Width 18.1 % (11.6-14.8) H Platelet Count 638 K/UL (150-450) H Mean Platelet Volume 5.7 FL (6.5-10.1) L Neutrophils (%) (Auto) 75.1 % (45.0-75.0) H Lymphocytes (%) (Auto) 10.5 % (20.0-45.0) L Monocytes (%) (Auto) 12.7 % (1.0-10.0) H Eosinophils (%) (Auto) 0.7 % (0.0-3.0) Basophils (%) (Auto) 0.9 % (0.0-2.0) Sodium Level 142 MMOL/L (136-145) Potassium Level 5.1 MMOL/L (3.5-5.1) Chloride Level 105 MMOL/L (98-107) Carbon Dioxide Level 31 MMOL/L (21-32) Anion Gap 6 mmol/L (5-15) Blood Urea Nitrogen 28 mg/dL (7-18) H Creatinine 1.3 MG/DL (0.55-1.30) Estimat Glomerular Filtration Rate > 60 mL/min (>60) Glucose Level 98 MG/DL (74-106) Calcium Level 9.7 MG/DL (8.5-10.1) Troponin I 0.055 ng/mL (0.000-0.056) Plan Problems: (1) UTI (urinary tract infection) (2) Acute respiratory failure Assessment & Plan: There is infiltrate suspected in the right perihilar region obscuring the right hilum. There is a hazy opacity that may partially be accounted for by pleural fluid on the right. Reticular densities are present on the left in the perihilar aspect of the lung. Endotracheal tube is in good position just above the anselmo. Heart size is normal. IMPRESSION: Suspected perihilar airspace disease in the right lung suspicious for pneumonia. Reticular nodular infiltrate in the left lung noted also. Right pleural effusion suspected. Endotracheal tube in good position cont vents support Lungs: Similar bilateral interstitial prominence, greater on the right. Stable right perihilar, mid and lower lung opacities. Similar left lung base opacity. Pleural space: Small left pleural effusion is stable. Loculated right pleural effusion is stable. No pneumothorax. Heart: Unremarkable. No cardiomegaly. Mediastinum: Unremarkable. Bones/joints: Unremarkable. Tubes, lines and devices: Endotracheal tube has been pulled back and is 10 cm above the anselmo near the thoracic inlet. IMPRESSION: Endotracheal tube has been pulled back and is 10 cm above the anselmo near the thoracic inlet. Remainder findings are stable. may need thoracentesis soon (3) Sepsis Assessment & Plan: Pt cachetic and presented on admission with multiple pressure injuries. Partial thickness pressure injury Cleft of L ear(L)1.2cm x (W)0.4cm. Base of wound moist and viable with small amt sanguineous exudate. Partial thickness pressure injury cleft of R ear(L)0.5cm x (W)0.7cm. Base of wound moist and viable Periwound erythematous.Small amt sanguineous exudate noted. Sacral DTPI(L)5cm x (W)10.5cm. Base of injury is purple with maroon borders. Coccygeal bony protrusion with darker skin tone, and small opening noted to R gluteus (L)0.5cm x (W)0.5cm within base of injury. No further skin breakdown periwound. Intact blood blister noted to R 1st metatarsal head(L)1.1cm x (W)2.5cm. DTPI noted to L heel extending into plantar aspect. Base of injury presents as an intact blood filled blister. Periwound is boggy with non-blanching erythema. R heel is boggy but blanchable. wounds unlikely etiology of sepsis respiratory but given current condition high risk for breakdown and worsening will monitor closely discussed with RN and staff great care being provided Tx.Plan: Apply Betadine to clefts of R and L ears. Pad oxygen tubing with gauze and keep oxygen tubing loose. Apply Moisture Barrier Paste to Sacrum. Cover with Optifoam drsg. Change every 3 days and prn. Apply Betadine to L heel. Cover with Optifoam drsg. Change every 3 days and prn. Apply Betadine to R 1st metatarsal head. Cover with Optifoam drsg. Change every 3 days and prn. Apply Cavilon Skin Barrier R heel. Cover with Optifoam drsg. Change every 7 days and prn. Reposition at least every 2hours or as tolerated. Off-load heels with pillow. on air mattress but not very comfortable appearing cont current care / pulm management (4) Severe anemia (5) Nosocomial pneumonia (6) Atrial fibrillation (7) Acute metabolic encephalopathy (8) History of CVA (cerebrovascular accident) (9) Diabetes mellitus (10) Hypothyroidism (11) Alzheimer's dementia (12) PVC (premature ventricular contraction) (13) Hypertension (14) Squamous cell esophageal cancer (15) Feeding by G-tube (16) Dehydration (17) Anemia (18) Severe malnutrition Assessment & Plan: DAILY ESTIMATED NEEDS: Needs based on underweight, suspected wt loss, wounds/ 63kg 25-33 kcals/kg 8555-5476 total kcals 1.25-2 g protein/kg 78-126 g total protein 25-30 mL/kg 6603-2490 total fluid mLs NUTRITION DIAGNOSIS: * Swallowing difficulty R/T dysphagia w/ h/o CVA as evidenced by now s/p recent PEG placement (08/08/19), on GT feeds, held at time, s/p code blue (09/07), orally intubated, now extubated. * Increased kcal/prot intake needs R/T suspected significant wt loss and underweight status, wounds as evidenced by 10lbs/6.7% wt loss in 1 month, 76% IBW w/ BMI of 18.4, admitted w/ DTPI wound @ sacrum, Lt heel, partial thickness pressure injury cleft of R L ear. CURRENT TF:Osmolite 1.2 @ 60ml/hr x 22 hrs ENTERAL NUTRITION RECOMMENDATIONS: Osmolite 1.2 @ 60ml/hr x 22 hrs + Prosource x 1 to provide 1320ml, 1584kcal, 73g +11g prot, 1082ml free water - Add Prosource x 1 to meet protein needs - HOLD 1 hr before and after synthroid meds. add Prosource 1 pack daily to better meet est pro needs - Flush per MD/ HOB over 30 degrees WITH ELEV BG, rec TF change to Glucerna 1.2 w/ a goal of 60ml/hr x22 hrs to provide 1320ml, 1584kcal, 79g prot ADDITIONAL RECOMMENDATIONS: * PER SNF: HT=6'1" WT= 139lbs ("August weight" from SNF) -> calibrated bedscale wt * Monitor K, need for TF change (K 5.9 upon adm, now wnl) * Wound care: add Vit C 500mg QD + Wesley 1pkt BID via PEG * Monitor BGs, need for NISS: h/o DM per MD (checking A1C not suggested given low hgb) (19) Encounter for PEG (percutaneous endoscopic gastrostomy) (20) At high risk for aspiration (21) Pleural effusion (22) Suspected COVID-19 virus infection Jan Mora Sep 24, 2019 15:06
[2019-09-25] VITALS (25 sets, daily range): BP systolic 108–130; BP diastolic 38–72
[2019-09-25 06:48] LABS: BASOPHILS % (AUTO) 1.5 % (0.0-2.0); EOSINOPHILS % (AUTO) 1.3 % (0.0-3.0); HEMATOCRIT 25.9 % (42.0-52.0); HEMOGLOBIN 8.4 G/DL (14.2-18.0); LYMPHOCYTES % (AUTO) 16.8 % (20.0-45.0); MEAN CORPUSCULAR VOLUME 82 FL (80-99); MONOCYTES % (AUTO) 10.3 % (1.0-10.0); NEUTROPHILS % (AUTO) 70.1 % (45.0-75.0); PLATELET COUNT 620 K/UL (150-450); RED BLOOD COUNT 3.14 M/UL (4.70-6.10); RED CELL DISTRIBUTION WIDTH 18.2 % (11.6-14.8); WHITE BLOOD COUNT 9.4 K/UL (4.8-10.8)
[2019-09-25 07:26] LABS: ALANINE AMINOTRANSFERASE 48 U/L (12-78); ALBUMIN 1.8 G/DL (3.4-5.0); ALBUMIN/GLOBULIN RATIO 0.4 (1.0-2.7); ALKALINE PHOSPHATASE 139 U/L (46-116); ANION GAP 8 mmol/L (5-15); ASPARTATE AMINO TRANSFERASE 50 U/L (15-37); BILIRUBIN,TOTAL 0.2 MG/DL (0.2-1.0); BLOOD UREA NITROGEN 33 mg/dL (7-18); CALCIUM 8.5 MG/DL (8.5-10.1); CARBON DIOXIDE 28 MMOL/L (21-32); CHLORIDE 109 MMOL/L (98-107); CREATININE 1.5 MG/DL (0.55-1.30); FERRITIN 411 NG/ML (8-388); GAMMA GLUTAMYL TRANSPEPTIDASE 70 U/L (5-85); LACTATE DEHYDROGENASE 212 U/L (81-234); PHOSPHORUS 2.7 MG/DL (2.5-4.9); POTASSIUM 4.3 MMOL/L (3.5-5.1); SODIUM 145 MMOL/L (136-145)
[2019-09-25] MEDS: Pantoprazole Inj IVP SCH ×2 (08:12→20:42)
[2019-09-25] MEDS: Heparin 5000 units/ml inj SUBQ SCH ×2 (08:12→20:40)
--- NOTE | 2019-09-25 08:28 | Pulmonolgy Critical Care Note ---
Critical Care - Asmt/Plan Assessment/Plan: ASSESSMENT Sepsis Acute respiratory failure requiring intubation, s/p extubation 09/19 s/p CP arrest and reintubation 09/23 Pseudomonas and Proteus pneumonia Pleural effusion, s/p thoracentesis 09/18 Acute kidney injury, -secondary to dehydration Suspected COVID 19 infection -ruled out x 2 Hypothyroidism with elevated TSH Severe anemia Transaminitis Dysphagia, feeding by G-tube Cerebrovascular disease with hx of CVA Diabetes mellitus Severe protein calorie malnutrition Multiply pressure injury, present on admission Seizure disorder Alzheimer dementia Anemia PLAN of CARE ICU vent support, pulmonary toilet CXR this am noted need retraction of ET by 3-4 cm moderate size right pleural effusion with right upper and lower lobe atelectasis/consolidation, as well as mild pulmonary edema.. ABG stable fup with CXR and ABG in am, and if stable plan to start weaning protocol in am s/p 09/[address] effusion - 2050 ml pleural fluid cx NGT pathology - NGT initial CXR with near complete resolution, no complication CXR 09/23 worsening R pleural opacity, possible recurrent effusion fup with CXR HONEY CoV PCR x 2 -NGT; off isolation influenza screen NGT BCX NGT SCX + Pseudomonas, Proteus UCX + Abi , likely colonization completed abx as per IF aspiration precautions, GTF , protein supplements as per RD monitor H&H with goal to keep Hgb above 7 BS management trend LFT creat up to 1.5 again this am -per nephro management, avoid nephrotoxics Hgb dropped, prior stool OB +, repeat stool OB continue Protonix monitor HH and consider GI eval if further drop elevated D dimer, will check venous Duplex BLE troponin NGT wound care as per surgeon recommendation Synthroid dose uptitrated, repeat TSH in 3 wks supportive care case discussed and evaluated by supervising physician Critical Care - Objective Last 24 Hour Vital Signs Date Time Temp Pulse Resp B/P (MAP) Pulse Ox O2 Delivery O2 Flow Rate FiO2 09/25/19 08:12 78 115/53 09/25/19 06:00 72 14 108/38 (61) 100 72 09/25/19 05:00 74 14 114/50 (71) 100 74 09/25/19 04:55 82 21 40 09/25/19 04:08 81 17 109/42 (64) 99 81 09/25/19 04:00 40 09/25/19 04:00 98.7 82 23 109/42 (64) 98 82 09/25/19 04:00 81 09/25/19 04:00 Mechanical Ventilator 09/25/19 03:00 78 14 40 09/25/19 03:00 77 13 115/72 (86) 100 77 09/25/19 02:00 79 13 108/52 (70) 100 79 09/25/19 01:14 78 14 40 09/25/19 01:00 79 14 120/53 (75) 100 78 09/25/19 00:00 99.5 78 15 110/47 (68) 100 78 09/25/19 00:00 40 09/25/19 00:00 Mechanical Ventilator 09/25/19 00:00 79 09/24/19 23:06 79 15 40 09/24/19 23:00 78 16 112/53 (72) 100 78 09/24/19 22:00 79 15 107/53 (71) 100 79 09/24/19 21:00 77 16 40 09/24/19 21:00 80 18 121/69 (86) 100 09/24/19 20:33 75 110/74 09/24/19 20:00 Mechanical Ventilator 09/24/19 20:00 40 09/24/19 20:00 98.8 76 13 110/64 (79) 100 09/24/19 20:00 79 09/24/19 19:27 73 12 40 09/24/19 19:00 74 12 104/55 (71) 99 09/24/19 18:00 77 14 103/48 (66) 99 09/24/19 17:00 82 18 114/53 (73) 99 09/24/19 16:43 80 14 40 09/24/19 16:00 80 09/24/19 16:00 98.7 78 12 100/47 (64) 98 09/24/19 16:00 Mechanical Ventilator 09/24/19 15:00 81 28 116/53 (74) 98 09/24/19 14:39 79 14 40 09/24/19 14:00 78 21 128/62 (84) 98 09/24/19 13:00 79 17 119/60 (79) 99 09/24/19 12:51 79 12 40 4/18/20 12:00 80 09/24/19 12:00 Mechanical Ventilator 09/24/19 12:00 98.1 82 14 117/58 (77) 98 09/24/19 11:00 85 18 129/66 (87) 99 09/24/19 10:54 84 22 40 09/24/19 10:00 86 19 142/73 (96) 99 09/24/19 09:07 87 16 50 09/24/19 09:00 95 25 150/92 (111) 100 09/24/19 08:54 87 118/65 09/24/19 08:52 87 Objective: Condition: critical, intubated HEENT: atraumatic, normocephalic, OP with ET in place, intact Lungs: overall clear Heart: HR/BP stable Abdomen: soft, active bowel sounds, G tube Extremities: no C/C/E Critical Care - Subjective Interval Events: intubated, no signs of respiratory distress on current settings CXR for this am pending no fevers, no leukocytosis creat up to 1.5 again Hgb dropped to 8.4 from [id number] Condition: critical EKG Rhythm: Sinus Rhythm FI02: 40 Vent Support Breath Rate: 12 Vent Support Mode: AC Vent Tidal Volume: 550 Sputum Amount: Small PEEP: 5.0 PIP: 26 Tube Feeding Amount: 0 I&O: Intake and Output 09/24/19 09/25/19 19:00 07:00 Intake Total 150 ml 320 ml Output Total 420 ml 390 ml Balance -270 ml -70 ml Intake Free Water 50 ml Tube Feeding 100 ml 320 ml Output Urine Total 420 ml 390 ml # Bowel Movements 2 CXR: CXR 09/24 Endotracheal tube tip is less than 1 cm above the anselmo. Recommend retraction of the endotracheal tube by 3-4 cm. Moderate size right pleural effusion with right upper and lower lobe atelectasis/consolidation, as well as mild pulmonary edema.. ET-Tube: 7.5 ET Position: 26 Miranda Pimentel PUBLICATIONS WRITER Sep 25, 2019 08:28
--- NOTE | 2019-09-25 08:47 | Diagnostic Imaging Report ---
EXAM: XR Chest, 1 View CLINICAL HISTORY: SOB TECHNIQUE: Frontal view of the chest. COMPARISON: 09/24/19 at 0230 hrs. FINDINGS: Endotracheal tube in place with tip less than 1 cm above the anselmo. Recommend retraction of the endotracheal tube. Again seen is a moderate sized right pleural effusion, with atelectasis or consolidation in the right upper and lower lobes. Mild pulmonary edema seen bilaterally as well. Cardiac silhouette is normal. No mediastinal widening or shift. IMPRESSION: Endotracheal tube tip is less than 1 cm above the anselmo. Recommend retraction of the endotracheal tube by 3-4 cm. Moderate size right pleural effusion with right upper and lower lobe atelectasis/consolidation, as well as mild pulmonary edema..
--- NOTE | 2019-09-25 10:39 | Nephrology Progress Note ---
Assessment/Plan Problem List: (1) RAMAN (acute kidney injury) Assessment: Serum creatinine normalized with hydration (2) Dehydration (3) Suspected COVID-19 virus infection (4) Anemia (5) Sepsis (6) Diabetes mellitus (7) Hypothyroidism Assessment - Acute renal failure - Severe anemia - Sepsis, pneumonia, acute respiratory failure, suspected: Viewed 19 virus infection - Diabetes mellitus - Hypothyroidism - Feeding by G-tube - Squamous cell esophageal cancer - History of CVA (cerebrovascular accident) Plan Patient was coded early September 23 morning and back in ICU intubated Serum creatinine up to 1.5 Previously: Pneumonia SARS-CoV neg x2 MRSA screen pos sp cx: PSA and proteus Changes Seroquel to "as needed" due to bradycardia Discontinue IV fluid Monitor renal parameters, serum creatinine Adjust electrolytes with supplements Increase Synthroid dose Avoid nephrotoxic's as possible Ventilator management Urine studies Per orders Subjective ROS Limited/Unobtainable: Yes Objective Objective Last 24 Hour Vital Signs Date Time Temp Pulse Resp B/P (MAP) Pulse Ox O2 Delivery O2 Flow Rate FiO2 09/25/19 10:00 74 14 125/48 (73) 100 09/25/19 09:00 73 14 129/46 (73) 100 09/25/19 08:20 75 12 40 09/25/19 08:12 78 115/53 09/25/19 08:00 98.5 76 14 115/53 (73) 100 09/25/19 07:00 76 18 115/51 (72) 100 09/25/19 06:00 72 14 108/38 (61) 100 72 09/25/19 05:00 74 14 114/50 (71) 100 74 09/25/19 04:55 82 21 40 09/25/19 04:08 81 17 109/42 (64) 99 81 09/25/19 04:00 40 09/25/19 04:00 98.7 82 23 109/42 (64) 98 82 09/25/19 04:00 81 09/25/19 04:00 Mechanical Ventilator 09/25/19 03:00 78 14 40 09/25/19 03:00 77 13 115/72 (86) 100 77 09/25/19 02:00 79 13 108/52 (70) 100 79 09/25/19 01:14 78 14 40 09/25/19 01:00 79 14 120/53 (75) 100 78 09/25/19 00:00 99.5 78 15 110/47 (68) 100 78 09/25/19 00:00 40 09/25/19 00:00 Mechanical Ventilator 09/25/19 00:00 79 09/24/19 23:06 79 15 40 09/24/19 23:00 78 16 112/53 (72) 100 78 09/24/19 22:00 79 15 107/53 (71) 100 79 09/24/19 21:00 77 16 40 09/24/19 21:00 80 18 121/69 (86) 100 09/24/19 20:33 75 110/74 09/24/19 20:00 Mechanical Ventilator 09/24/19 20:00 40 09/24/19 20:00 98.8 76 13 110/64 (79) 100 09/24/19 20:00 79 09/24/19 19:27 73 12 40 09/24/19 19:00 74 12 104/55 (71) 99 09/24/19 18:00 77 14 103/48 (66) 99 09/24/19 17:00 82 18 114/53 (73) 99 09/24/19 16:43 80 14 40 09/24/19 16:00 80 09/24/19 16:00 98.7 78 12 100/47 (64) 98 09/24/19 16:00 Mechanical Ventilator 09/24/19 15:00 81 28 116/53 (74) 98 09/24/19 14:39 79 14 40 09/24/19 14:00 78 21 128/62 (84) 98 09/24/19 13:00 79 17 119/60 (79) 99 09/24/19 12:51 79 12 40 09/24/19 12:00 80 09/24/19 12:00 Mechanical Ventilator 09/24/19 12:00 98.1 82 14 117/58 (77) 98 09/24/19 11:00 85 18 129/66 (87) 99 09/24/19 10:54 84 22 40 Intake and Output 09/24/19 09/25/19 19:00 07:00 Intake Total 150 ml 320 ml Output Total 420 ml 420 ml Balance -270 ml -100 ml Intake Free Water 50 ml Tube Feeding 100 ml 320 ml Output Urine Total 420 ml 420 ml # Bowel Movements 2 Laboratory Tests 09/25/19 05:30: White Blood Count 9.4, Red Blood Count 3.14L, Hemoglobin 8.4L, Hematocrit 25.9L , Mean Corpuscular Volume 82, Mean Corpuscular Hemoglobin 26.7L, Mean Corpuscular Hemoglobin Concent 32.4, Red Cell Distribution Width 18.2H, Platelet Count 620H, Mean Platelet Volume 5.6L, Neutrophils (%) (Auto) 70.1, Lymphocytes (%) (Auto) 16.8L, Monocytes (%) (Auto) 10.3H, Eosinophils (%) (Auto ) 1.3, Basophils (%) (Auto) 1.5, D-Dimer 3.19H, Sodium Level 145, Potassium Level 4.3, Chloride Level 109H, Carbon Dioxide Level 28, Anion Gap 8, Blood Urea Nitrogen 33H, Creatinine 1.5H, Estimat Glomerular Filtration Rate 53.8, Glucose Level 122H, Uric Acid 5.1, Calcium Level 8.5, Phosphorus Level 2.7, Magnesium Level 2.1, Ferritin 411H, Total Bilirubin 0.2, Gamma Glutamyl Transpeptidase 70, Aspartate Amino Transf (AST/SGOT) 50H, Alanine Aminotransferase (ALT/SGPT) 48, Alkaline Phosphatase 139H, Lactate Dehydrogenase 212, C-Reactive Protein, Quantitative 13.1H, Pro-B-Type Natriuretic Peptide 510H, Total Protein 6.9, Albumin 1.8L, Globulin 5.1, Albumin /Globulin Ratio 0.4L 09/25/19 08:50: Arterial Blood pH 7.518H, Arterial Blood Partial Pressure CO2 36.4, Arterial Blood Partial Pressure O2 88.7, Arterial Blood HCO3 28.9H, Arterial Blood Oxygen Saturation , Arterial Blood Base Excess 6.0H, Watson Test Positive Height (Feet): 5 Height (Inches): 11.00 Weight (Pounds): 180 General Appearance: no apparent distress EENT: other - Now intubated and on ventilator Cardiovascular: normal rate Respiratory/Chest: decreased breath sounds Abdomen: soft Objective no change Clovis Benites MD Sep 25, 2019 10:39
[2019-09-25] MEDS: D5 1/2NS 1,000 ML IV SCH (11:46)
--- NOTE | 2019-09-25 13:38 | Surgery Progress Note ---
Surgery Progress Note Subjective Additional Comments labs noted imaging reviewed coded, intubated non responsive Objective Last 24 Hour Vital Signs Date Time Temp Pulse Resp B/P (MAP) Pulse Ox O2 Delivery O2 Flow Rate FiO2 09/25/19 13:00 73 16 126/48 (74) 100 09/25/19 12:12 76 12 40 09/25/19 12:00 98.2 74 17 124/49 (74) 100 09/25/19 12:00 76 09/25/19 12:00 40 09/25/19 12:00 Mechanical Ventilator 09/25/19 11:00 76 14 122/47 (72) 100 09/25/19 10:00 74 14 125/48 (73) 100 09/25/19 09:00 73 14 129/46 (73) 100 09/25/19 08:20 75 12 40 09/25/19 08:12 78 115/53 09/25/19 08:00 Mechanical Ventilator 09/25/19 08:00 98.5 76 14 115/53 (73) 100 09/25/19 08:00 75 09/25/19 08:00 40 09/25/19 07:00 76 18 115/51 (72) 100 09/25/19 06:00 72 14 108/38 (61) 100 72 09/25/19 05:00 74 14 114/50 (71) 100 74 09/25/19 04:55 82 21 40 09/25/19 04:08 81 17 109/42 (64) 99 81 09/25/19 04:00 40 09/25/19 04:00 98.7 82 23 109/42 (64) 98 82 09/25/19 04:00 81 09/25/19 04:00 Mechanical Ventilator 09/25/19 03:00 78 14 40 09/25/19 03:00 77 13 115/72 (86) 100 77 09/25/19 02:00 79 13 108/52 (70) 100 79 09/25/19 01:14 78 14 40 09/25/19 01:00 79 14 120/53 (75) 100 78 09/25/19 00:00 99.5 78 15 110/47 (68) 100 78 09/25/19 00:00 40 09/25/19 00:00 Mechanical Ventilator 09/25/19 00:00 79 09/24/19 23:06 79 15 40 09/24/19 23:00 78 16 112/53 (72) 100 78 09/24/19 22:00 79 15 107/53 (71) 100 79 09/24/19 21:00 77 16 40 09/24/19 21:00 80 18 121/69 (86) 100 09/24/19 20:33 75 110/74 09/24/19 20:00 Mechanical Ventilator 09/24/19 20:00 40 09/24/19 20:00 98.8 76 13 110/64 (79) 100 09/24/19 20:00 79 09/24/19 19:27 73 12 40 09/24/19 19:00 74 12 104/55 (71) 99 09/24/19 18:00 77 14 103/48 (66) 99 09/24/19 17:00 82 18 114/53 (73) 99 09/24/19 16:43 80 14 40 09/24/19 16:00 80 09/24/19 16:00 98.7 78 12 100/47 (64) 98 09/24/19 16:00 Mechanical Ventilator 09/24/19 15:00 81 28 116/53 (74) 98 09/24/19 14:39 79 14 40 09/24/19 14:00 78 21 128/62 (84) 98 I&O Intake and Output 09/24/19 09/25/19 19:00 07:00 Intake Total 150 ml 320 ml Output Total 420 ml 420 ml Balance -270 ml -100 ml Intake Free Water 50 ml Tube Feeding 100 ml 320 ml Output Urine Total 420 ml 420 ml # Bowel Movements 2 Dressing: other Wound: other Drains: other Cardiovascular: RSR, other Respiratory: decreased breath sounds, other Abdomen: non-tender, non-distended, decreased bowel sounds Extremities: no cyanosis, other Laboratory Tests Test 09/25/19 05:30 09/25/19 08:50 White Blood Count 9.4 K/UL (4.8-10.8) Red Blood Count 3.14 M/UL (4.70-6.10) L Hemoglobin 8.4 G/DL (14.2-18.0) L Hematocrit 25.9 % (42.0-52.0) L Mean Corpuscular Volume 82 FL (80-99) Mean Corpuscular Hemoglobin 26.7 PG (27.0-31.0) L Mean Corpuscular Hemoglobin Concent 32.4 G/DL (32.0-36.0) Red Cell Distribution Width 18.2 % (11.6-14.8) H Platelet Count 620 K/UL (150-450) H Mean Platelet Volume 5.6 FL (6.5-10.1) L Neutrophils (%) (Auto) 70.1 % (45.0-75.0) Lymphocytes (%) (Auto) 16.8 % (20.0-45.0) L Monocytes (%) (Auto) 10.3 % (1.0-10.0) H Eosinophils (%) (Auto) 1.3 % (0.0-3.0) Basophils (%) (Auto) 1.5 % (0.0-2.0) D-Dimer 3.19 mg/L FEU (0.00-0.49) H Sodium Level 145 MMOL/L (136-145) Potassium Level 4.3 MMOL/L (3.5-5.1) Chloride Level 109 MMOL/L (98-107) H Carbon Dioxide Level 28 MMOL/L (21-32) Anion Gap 8 mmol/L (5-15) Blood Urea Nitrogen 33 mg/dL (7-18) H Creatinine 1.5 MG/DL (0.55-1.30) H Estimat Glomerular Filtration Rate 53.8 mL/min (>60) Glucose Level 122 MG/DL (74-106) H Uric Acid 5.1 MG/DL (2.6-7.2) Calcium Level 8.5 MG/DL (8.5-10.1) Phosphorus Level 2.7 MG/DL (2.5-4.9) Magnesium Level 2.1 MG/DL (1.8-2.4) Ferritin 411 NG/ML (8-388) H Total Bilirubin 0.2 MG/DL (0.2-1.0) Gamma Glutamyl Transpeptidase 70 U/L (5-85) Aspartate Amino Transf (AST/SGOT) 50 U/L (15-37) H Alanine Aminotransferase (ALT/SGPT) 48 U/L (12-78) Alkaline Phosphatase 139 U/L (46-116) H Lactate Dehydrogenase 212 U/L (81-234) C-Reactive Protein, Quantitative 13.1 mg/dL (0.00-0.90) H Pro-B-Type Natriuretic Peptide 510 pg/mL (0-125) H Total Protein 6.9 G/DL (6.4-8.2) Albumin 1.8 G/DL (3.4-5.0) L Globulin 5.1 g/dL Albumin/Globulin Ratio 0.4 (1.0-2.7) L Arterial Blood pH 7.518 (7.350-7.450) Arterial Blood Partial Pressure CO2 36.4 mmHg (35.0-45.0) Arterial Blood Partial Pressure O2 88.7 mmHg (75.0-100.0) Arterial Blood HCO3 28.9 mmol/L (22.0-26.0) H Arterial Blood Oxygen Saturation % (95-100) Arterial Blood Base Excess 6.0 (-2-2) H Watson Test Positive Plan Problems: (1) UTI (urinary tract infection) (2) Acute respiratory failure Assessment & Plan: There is infiltrate suspected in the right perihilar region obscuring the right hilum. There is a hazy opacity that may partially be accounted for by pleural fluid on the right. Reticular densities are present on the left in the perihilar aspect of the lung. Endotracheal tube is in good position just above the anselmo. Heart size is normal. IMPRESSION: Suspected perihilar airspace disease in the right lung suspicious for pneumonia. Reticular nodular infiltrate in the left lung noted also. Right pleural effusion suspected. Endotracheal tube in good position cont vents support Lungs: Similar bilateral interstitial prominence, greater on the right. Stable right perihilar, mid and lower lung opacities. Similar left lung base opacity. Pleural space: Small left pleural effusion is stable. Loculated right pleural effusion is stable. No pneumothorax. Heart: Unremarkable. No cardiomegaly. Mediastinum: Unremarkable. Bones/joints: Unremarkable. Tubes, lines and devices: Endotracheal tube has been pulled back and is 10 cm above the anselmo near the thoracic inlet. IMPRESSION: Endotracheal tube has been pulled back and is 10 cm above the anselmo near the thoracic inlet. Remainder findings are stable. may need thoracentesis soon (3) Sepsis Assessment & Plan: Pt cachetic and presented on admission with multiple pressure injuries. Partial thickness pressure injury Cleft of L ear(L)1.2cm x (W)0.4cm. Base of wound moist and viable with small amt sanguineous exudate. Partial thickness pressure injury cleft of R ear(L)0.5cm x (W)0.7cm. Base of wound moist and viable Periwound erythematous.Small amt sanguineous exudate noted. Sacral DTPI(L)5cm x (W)10.5cm. Base of injury is purple with maroon borders. Coccygeal bony protrusion with darker skin tone, and small opening noted to R gluteus (L)0.5cm x (W)0.5cm within base of injury. No further skin breakdown periwound. Intact blood blister noted to R 1st metatarsal head(L)1.1cm x (W)2.5cm. DTPI noted to L heel extending into plantar aspect. Base of injury presents as an intact blood filled blister. Periwound is boggy with non-blanching erythema. R heel is boggy but blanchable. wounds unlikely etiology of sepsis respiratory but given current condition high risk for breakdown and worsening will monitor closely discussed with RN and staff great care being provided coded acls intubated in ICU prognosis guarded Tx.Plan: Apply Betadine to clefts of R and L ears. Pad oxygen tubing with gauze and keep oxygen tubing loose. Apply Moisture Barrier Paste to Sacrum. Cover with Optifoam drsg. Change every 3 days and prn. Apply Betadine to L heel. Cover with Optifoam drsg. Change every 3 days and prn. Apply Betadine to R 1st metatarsal head. Cover with Optifoam drsg. Change every 3 days and prn. Apply Cavilon Skin Barrier R heel. Cover with Optifoam drsg. Change every 7 days and prn. Reposition at least every 2hours or as tolerated. Off-load heels with pillow. on air mattress but not very comfortable appearing cont current care / pulm management (4) Severe anemia (5) Nosocomial pneumonia (6) Atrial fibrillation (7) Acute metabolic encephalopathy (8) History of CVA (cerebrovascular accident) (9) Diabetes mellitus (10) Hypothyroidism (11) Alzheimer's dementia (12) PVC (premature ventricular contraction) (13) Hypertension (14) Squamous cell esophageal cancer (15) Feeding by G-tube (16) Dehydration (17) Anemia (18) Severe malnutrition Assessment & Plan: DAILY ESTIMATED NEEDS: Needs based on underweight, suspected wt loss, wounds/ 63kg 25-33 kcals/kg 5834-1291 total kcals 1.25-2 g protein/kg 78-126 g total protein 25-30 mL/kg 6592-9355 total fluid mLs NUTRITION DIAGNOSIS: * Swallowing difficulty R/T dysphagia w/ h/o CVA as evidenced by now s/p recent PEG placement (08/08/19), on GT feeds, held at time, s/p code blue (09/07), orally intubated, now extubated. * Increased kcal/prot intake needs R/T suspected significant wt loss and underweight status, wounds as evidenced by 10lbs/6.7% wt loss in 1 month, 76% IBW w/ BMI of 18.4, admitted w/ DTPI wound @ sacrum, Lt heel, partial thickness pressure injury cleft of R L ear. CURRENT TF:Osmolite 1.2 @ 60ml/hr x 22 hrs ENTERAL NUTRITION RECOMMENDATIONS: Osmolite 1.2 @ 60ml/hr x 22 hrs + Prosource x 1 to provide 1320ml, 1584kcal, 73g +11g prot, 1082ml free water - Add Prosource x 1 to meet protein needs - HOLD 1 hr before and after synthroid meds. add Prosource 1 pack daily to better meet est pro needs - Flush per MD/ HOB over 30 degrees WITH ELEV BG, rec TF change to Glucerna 1.2 w/ a goal of 60ml/hr x22 hrs to provide 1320ml, 1584kcal, 79g prot ADDITIONAL RECOMMENDATIONS: * PER SNF: HT=6'1" WT= 139lbs ("August weight" from SNF) -> calibrated bedscale wt * Monitor K, need for TF change (K 5.9 upon adm, now wnl) * Wound care: add Vit C 500mg QD + Wesley 1pkt BID via PEG * Monitor BGs, need for NISS: h/o DM per MD (checking A1C not suggested given low hgb) (19) Encounter for PEG (percutaneous endoscopic gastrostomy) (20) At high risk for aspiration (21) Pleural effusion (22) Suspected COVID-19 virus infection Jan Mora Sep 25, 2019 13:38
[2019-09-25] MEDS ORDERED: NS 275ml ONE (14:34)
--- NOTE | 2019-09-25 14:43 | Internal Med Progress Note ---
Subjective Date of Service: Sep 25, 2019 Physician Name Xander Bah Attending Physician Lamont Hayes MD Current Medications Medications (Trade) Dose Ordered Sig/Kike Route PRN Reason Start Time Stop Time Status Last Admin Dose Admin Acetaminophen (Tylenol) 650 mg Q4H PRN ORAL fever 09/24/19 03:00 10/07/19 02:54 Albuterol/ Ipratropium (Albuterol/ Ipratropium) 3 ml Q4HRT PRN HHN sob 09/24/19 08:45 09/29/19 08:44 Amlodipine Besylate (Norvasc) 5 mg BID@0900,2100 NG 09/24/19 21:00 10/22/19 08:59 09/25/19 08:12 Dextrose/Sodium Chloride 1,000 ml @ 50 mls/hr Q20H IV 09/25/19 11:45 10/25/19 11:44 09/25/19 11:46 Heparin Sodium (Porcine) (Heparin 5000 units/ml) 5,000 units EVERY 12 HOURS SUBQ 09/24/19 09:00 10/22/19 08:59 09/24/19 20:36 Levothyroxine Sodium (Synthroid) 75 mcg DAILY@0630 ORAL 09/24/19 06:30 10/07/19 08:29 09/25/19 06:23 Lorazepam (Ativan 2mg/ml 1ml) 1 mg Q4H PRN IV For Anxiety 09/24/19 03:00 09/26/19 09:00 Mirtazapine (Remeron) 7.5 mg BEDTIME ORAL 09/24/19 21:00 12/06/19 20:59 09/24/19 20:33 Nitroglycerin (Ntg) 0.4 mg Q5M PRN SL Prn Chest Pain 09/24/19 02:30 10/07/19 04:29 Ondansetron HCl (Zofran) 4 mg Q6H PRN IVP Nausea & Vomiting 09/24/19 03:00 10/07/19 02:57 Pantoprazole (Protonix) 40 mg Q12HR IVP 09/24/19 09:00 10/10/19 08:59 09/25/19 08:12 Polyethylene Glycol (Miralax) 17 gm DAILYPRN PRN ORAL Constipation 09/24/19 03:00 10/07/19 02:57 Promethazine HCl/ Codeine (Phenergan with Codeine) 5 ml Q4H PRN ORAL For Cough 09/24/19 03:00 10/07/19 02:58 Quetiapine Fumarate (SEROqueL) 25 mg Q8H PRN NG Agitation 09/24/19 02:35 10/30/19 02:34 Allergies: Coded Allergies: PENICILLINS (Verified Allergy, Unknown, 10/27/18) tolretas cephalosporins ROS Limited/Unobtainable: Yes Subjective 84 YO M admitted with cough and congestion. Cover for Int Med-Dr Hayes. Reintubated 09/24/19 after cardiopulmonary arrest-see code blue note. ICU Objective Last Vital Signs Date Time Temp Pulse Resp B/P (MAP) Pulse Ox O2 Delivery O2 Flow Rate FiO2 09/25/19 14:00 72 17 130/51 (77) 100 09/25/19 12:12 40 09/25/19 12:00 98.2 09/25/19 12:00 Mechanical Ventilator 09/23/19 21:00 3.0 Laboratory Tests Test 09/25/19 05:30 09/25/19 08:50 White Blood Count 9.4 K/UL (4.8-10.8) Red Blood Count 3.14 M/UL (4.70-6.10) L Hemoglobin 8.4 G/DL (14.2-18.0) L Hematocrit 25.9 % (42.0-52.0) L Mean Corpuscular Volume 82 FL (80-99) Mean Corpuscular Hemoglobin 26.7 PG (27.0-31.0) L Mean Corpuscular Hemoglobin Concent 32.4 G/DL (32.0-36.0) Red Cell Distribution Width 18.2 % (11.6-14.8) H Platelet Count 620 K/UL (150-450) H Mean Platelet Volume 5.6 FL (6.5-10.1) L Neutrophils (%) (Auto) 70.1 % (45.0-75.0) Lymphocytes (%) (Auto) 16.8 % (20.0-45.0) L Monocytes (%) (Auto) 10.3 % (1.0-10.0) H Eosinophils (%) (Auto) 1.3 % (0.0-3.0) Basophils (%) (Auto) 1.5 % (0.0-2.0) D-Dimer 3.19 mg/L FEU (0.00-0.49) H Sodium Level 145 MMOL/L (136-145) Potassium Level 4.3 MMOL/L (3.5-5.1) Chloride Level 109 MMOL/L (98-107) H Carbon Dioxide Level 28 MMOL/L (21-32) Anion Gap 8 mmol/L (5-15) Blood Urea Nitrogen 33 mg/dL (7-18) H Creatinine 1.5 MG/DL (0.55-1.30) H Estimat Glomerular Filtration Rate 53.8 mL/min (>60) Glucose Level 122 MG/DL (74-106) H Uric Acid 5.1 MG/DL (2.6-7.2) Calcium Level 8.5 MG/DL (8.5-10.1) Phosphorus Level 2.7 MG/DL (2.5-4.9) Magnesium Level 2.1 MG/DL (1.8-2.4) Ferritin 411 NG/ML (8-388) H Total Bilirubin 0.2 MG/DL (0.2-1.0) Gamma Glutamyl Transpeptidase 70 U/L (5-85) Aspartate Amino Transf (AST/SGOT) 50 U/L (15-37) H Alanine Aminotransferase (ALT/SGPT) 48 U/L (12-78) Alkaline Phosphatase 139 U/L (46-116) H Lactate Dehydrogenase 212 U/L (81-234) C-Reactive Protein, Quantitative 13.1 mg/dL (0.00-0.90) H Pro-B-Type Natriuretic Peptide 510 pg/mL (0-125) H Total Protein 6.9 G/DL (6.4-8.2) Albumin 1.8 G/DL (3.4-5.0) L Globulin 5.1 g/dL Albumin/Globulin Ratio 0.4 (1.0-2.7) L Arterial Blood pH 7.518 (7.350-7.450) Arterial Blood Partial Pressure CO2 36.4 mmHg (35.0-45.0) Arterial Blood Partial Pressure O2 88.7 mmHg (75.0-100.0) Arterial Blood HCO3 28.9 mmol/L (22.0-26.0) H Arterial Blood Oxygen Saturation % (95-100) Arterial Blood Base Excess 6.0 (-2-2) H Watson Test Positive Intake and Output 09/24/19 09/25/19 19:00 07:00 Intake Total 150 ml 320 ml Output Total 420 ml 420 ml Balance -270 ml -100 ml Intake Free Water 50 ml Tube Feeding 100 ml 320 ml Output Urine Total 420 ml 420 ml # Bowel Movements 2 Objective PHYSICAL EXAMINATION: GENERAL: The patient is a thin-appearing male, in no apparent distress. HEENT: Eyes, pupils are equal and responsive to light and accommodation. Extraocular movements are intact. NECK: Supple without lymphadenopathy. CHEST: Mech vent; Lungs are clear to auscultation bilaterally with decreased breath sounds on the right. There are no wheezes appreciated. ABDOMEN: Soft, nontender, and nondistended. Positive bowel sounds. No evidence of hepatosplenomegaly. Currently, no rebound or guarding noted. EXTREMITIES: Negative for clubbing, cyanosis, or edema. RECTAL/GENITAL: Not performed. NEUROLOGIC: Cranial nerves II through XII are grossly intact without focal deficits. Assessment/Plan Assessment/Plan ASSESSMENT: This is an 84-year-old male with: 1. Possible right pneumonia=pseudamonas 2. Urinary tract infection=jennifer 3. Right pleural effusion. 4. Esophageal mass. 5. Dysphagia. 6. Diabetes. 7. Alzheimer's dementia. 8. Cerebrovascular disease. 9. Hypothyroidism. 10. Seizure disorder. 11. Iron deficiency anemia. 13. Respiratory failure 14. S/P cardiopulmonary arrest TREATMENT: 1. Right perihilar Pneumonia/pleural effusion. COVID 19 and Influenza negative. A Pulmonary consultation has been obtained with Dr. Vania Hui. S/P right thoracentesis 09/19/19. We will follow recommendation of Pulmonary. ID=Dr Roach ABX= S/P cefepime 2. Urinary tract infection. . A urine culture =jennifer 3. Right pleural effusion. As above, a Pulmonary consultation has been obtained with Dr. Vania Hui. The patient may require thoracentesis during this hospitalization. 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 A Gastroenterology consultation has been obtained with Dr. Darrick Rosario. 5. Dysphagia. The patient is status post PEG placement on 08/08/2019 at [facility] by Dr. Darrick Rosario. 6. Diabetes type 2. A NovoLog sliding scale has been instituted. 7. Alzheimer's dementia. 8. Cerebrovascular disease, status post cerebrovascular accident. 9. Hypothyroidism. Continue levothyroxine as above. 10. Seizure disorder. 11. Iron deficiency anemia. 12. reintubated 09/24/19-see code blue note Xander Bah MD Sep 25, 2019 14:43
[2019-09-26] VITALS (26 sets, daily range): BP systolic 117–145; BP diastolic 45–59
[2019-09-26 05:05] LABS: BASOPHILS % (AUTO) 1.2 % (0.0-2.0); EOSINOPHILS % (AUTO) 2.3 % (0.0-3.0); HEMATOCRIT 25.6 % (42.0-52.0); HEMOGLOBIN 8.4 G/DL (14.2-18.0); LYMPHOCYTES % (AUTO) 18.3 % (20.0-45.0); MEAN CORPUSCULAR VOLUME 82 FL (80-99); MONOCYTES % (AUTO) 10.3 % (1.0-10.0); PLATELET COUNT 568 K/UL (150-450); RED BLOOD COUNT 3.11 M/UL (4.70-6.10); WHITE BLOOD COUNT 9.3 K/UL (4.8-10.8)
[2019-09-26 05:21] LABS: ANION GAP 9 mmol/L (5-15); BLOOD UREA NITROGEN 26 mg/dL (7-18); CALCIUM 8.2 MG/DL (8.5-10.1); CARBON DIOXIDE 25 MMOL/L (21-32); CHLORIDE 108 MMOL/L (98-107); CREATININE 1.3 MG/DL (0.55-1.30); POTASSIUM 3.9 MMOL/L (3.5-5.1); SODIUM 142 MMOL/L (136-145)
[2019-09-26] MEDS: Pantoprazole Inj IVP SCH ×2 (08:50→21:41)
[2019-09-26] MEDS: Heparin 5000 units/ml inj SUBQ SCH ×2 (08:51→21:00)
[2019-09-26] MEDS: D5 1/2NS 1,000 ML IV SCH (08:52)
--- NOTE | 2019-09-26 09:58 | Nephrology Progress Note ---
Assessment/Plan Problem List: (1) RAMAN (acute kidney injury) Assessment: Serum creatinine normalized with hydration (2) Dehydration (3) Suspected COVID-19 virus infection (4) Anemia (5) Sepsis (6) Diabetes mellitus (7) Hypothyroidism Assessment - Acute renal failure - Severe anemia - Sepsis, pneumonia, acute respiratory failure, suspected: Viewed 19 virus infection - Diabetes mellitus - Hypothyroidism - Feeding by G-tube - Squamous cell esophageal cancer - History of CVA (cerebrovascular accident) Plan Patient was coded early September 23 morning and back in ICU intubated Serum creatinine miguel to 1.5, now back to normal Stable from renal standpoint of view at this point Previously: Pneumonia SARS-CoV neg x2 MRSA screen pos sp cx: PSA and proteus Changes Seroquel to "as needed" due to bradycardia Discontinue IV fluid Monitor renal parameters, serum creatinine Adjust electrolytes with supplements Increase Synthroid dose Avoid nephrotoxic's as possible Ventilator management Urine studies Per orders Subjective ROS Limited/Unobtainable: Yes Objective Objective Last 24 Hour Vital Signs Date Time Temp Pulse Resp B/P (MAP) Pulse Ox O2 Delivery O2 Flow Rate FiO2 09/26/19 09:00 73 20 143/56 (85) 100 09/26/19 09:00 72 18 40 09/26/19 08:50 72 134/45 09/26/19 08:00 Mechanical Ventilator 09/26/19 08:00 40 09/26/19 08:00 99.9 73 17 137/53 (81) 100 09/26/19 07:05 72 18 40 09/26/19 07:00 71 21 145/57 (86) 100 09/26/19 06:00 72 19 135/58 (83) 100 09/26/19 05:00 70 19 145/49 (81) 100 09/26/19 04:00 70 09/26/19 04:00 40 09/26/19 04:00 98.8 72 19 135/50 (78) 100 09/26/19 04:00 Mechanical Ventilator 09/26/19 03:47 74 21 40 09/26/19 03:40 69 21 135/56 (82) 100 09/26/19 03:00 69 15 134/52 (79) 100 09/26/19 02:00 68 16 117/48 (71) 100 09/26/19 01:00 71 18 128/45 (72) 100 09/26/19 00:00 72 09/26/19 00:00 40 09/26/19 00:00 Mechanical Ventilator 09/26/19 00:00 98.2 68 14 120/51 (74) 100 09/25/19 23:33 65 13 40 09/25/19 23:00 65 19 112/41 (64) 100 09/25/19 22:00 66 20 114/53 (73) 100 09/25/19 21:00 70 19 118/47 (70) 100 09/25/19 20:42 78 112/45 09/25/19 20:00 98.6 68 16 120/44 (69) 100 09/25/19 20:00 70 09/25/19 20:00 Mechanical Ventilator 09/25/19 20:00 40 09/25/19 19:17 65 15 40 09/25/19 19:00 68 19 117/49 (71) 99 09/25/19 18:00 65 15 111/42 (65) 100 09/25/19 17:00 67 16 129/51 (77) 100 09/25/19 16:00 40 09/25/19 16:00 Mechanical Ventilator 09/25/19 16:00 98.4 66 13 112/50 (70) 100 09/25/19 16:00 64 09/25/19 15:40 70 12 40 09/25/19 15:00 71 16 120/47 (71) 100 09/25/19 14:00 72 17 130/51 (77) 100 09/25/19 13:00 73 16 126/48 (74) 100 09/25/19 12:12 76 12 40 09/25/19 12:00 98.2 74 17 124/49 (74) 100 09/25/19 12:00 76 09/25/19 12:00 40 09/25/19 12:00 Mechanical Ventilator 09/25/19 11:00 76 14 122/47 (72) 100 09/25/19 10:00 74 14 125/48 (73) 100 Intake and Output 09/25/19 09/26/19 19:00 07:00 Intake Total 1070 ml 1210 ml Output Total 340 ml 600 ml Balance 730 ml 610 ml Intake Free Water 100 ml IV Total 400 ml 600 ml Tube Feeding 570 ml 610 ml Output Urine Total 340 ml 600 ml Laboratory Tests 09/26/19 04:00: White Blood Count 9.3, Red Blood Count 3.11L, Hemoglobin 8.4L, Hematocrit 25.6L , Mean Corpuscular Volume 82, Mean Corpuscular Hemoglobin 27.0, Mean Corpuscular Hemoglobin Concent 32.8, Red Cell Distribution Width 18.0H, Platelet Count 568H, Mean Platelet Volume 5.5L, Neutrophils (%) (Auto) 68.0, Lymphocytes (%) (Auto) 18.3L, Monocytes (%) (Auto) 10.3H, Eosinophils (%) (Auto ) 2.3, Basophils (%) (Auto) 1.2, Sodium Level 142, Potassium Level 3.9, Chloride Level 108H, Carbon Dioxide Level 25, Anion Gap 9, Blood Urea Nitrogen 26H, Creatinine 1.3, Estimat Glomerular Filtration Rate > 60, Glucose Level 133H , Calcium Level 8.2L Height (Feet): 5 Height (Inches): 11.00 Weight (Pounds): 184 General Appearance: no apparent distress EENT: other - Intubated and vented Cardiovascular: normal rate Respiratory/Chest: decreased breath sounds Abdomen: distended Objective no change Clovis Benites MD Sep 26, 2019 09:58
--- NOTE | 2019-09-26 10:22 | Surgery Progress Note ---
Surgery Progress Note Subjective Additional Comments labs reviewed ill appearing cxr with effusion Objective Last 24 Hour Vital Signs Date Time Temp Pulse Resp B/P (MAP) Pulse Ox O2 Delivery O2 Flow Rate FiO2 09/26/19 09:00 73 20 143/56 (85) 100 09/26/19 09:00 72 18 40 09/26/19 08:50 72 134/45 09/26/19 08:00 Mechanical Ventilator 09/26/19 08:00 40 09/26/19 08:00 99.9 73 17 137/53 (81) 100 09/26/19 07:05 72 18 40 09/26/19 07:00 71 21 145/57 (86) 100 09/26/19 06:00 72 19 135/58 (83) 100 09/26/19 05:00 70 19 145/49 (81) 100 09/26/19 04:00 70 09/26/19 04:00 40 09/26/19 04:00 98.8 72 19 135/50 (78) 100 09/26/19 04:00 Mechanical Ventilator 09/26/19 03:47 74 21 40 09/26/19 03:40 69 21 135/56 (82) 100 09/26/19 03:00 69 15 134/52 (79) 100 09/26/19 02:00 68 16 117/48 (71) 100 09/26/19 01:00 71 18 128/45 (72) 100 09/26/19 00:00 72 09/26/19 00:00 40 09/26/19 00:00 Mechanical Ventilator 09/26/19 00:00 98.2 68 14 120/51 (74) 100 09/25/19 23:33 65 13 40 09/25/19 23:00 65 19 112/41 (64) 100 09/25/19 22:00 66 20 114/53 (73) 100 09/25/19 21:00 70 19 118/47 (70) 100 09/25/19 20:42 78 112/45 09/25/19 20:00 98.6 68 16 120/44 (69) 100 09/25/19 20:00 70 09/25/19 20:00 Mechanical Ventilator 09/25/19 20:00 40 09/25/19 19:17 65 15 40 09/25/19 19:00 68 19 117/49 (71) 99 09/25/19 18:00 65 15 111/42 (65) 100 09/25/19 17:00 67 16 129/51 (77) 100 09/25/19 16:00 40 09/25/19 16:00 Mechanical Ventilator 09/25/19 16:00 98.4 66 13 112/50 (70) 100 09/25/19 16:00 64 09/25/19 15:40 70 12 40 09/25/19 15:00 71 16 120/47 (71) 100 09/25/19 14:00 72 17 130/51 (77) 100 09/25/19 13:00 73 16 126/48 (74) 100 09/25/19 12:12 76 12 40 09/25/19 12:00 98.2 74 17 124/49 (74) 100 09/25/19 12:00 76 09/25/19 12:00 40 09/25/19 12:00 Mechanical Ventilator 09/25/19 11:00 76 14 122/47 (72) 100 I&O Intake and Output 09/25/19 09/26/19 19:00 07:00 Intake Total 1070 ml 1210 ml Output Total 340 ml 600 ml Balance 730 ml 610 ml Intake Free Water 100 ml IV Total 400 ml 600 ml Tube Feeding 570 ml 610 ml Output Urine Total 340 ml 600 ml Dressing: other Wound: other Drains: other Cardiovascular: RSR Respiratory: decreased breath sounds Abdomen: soft, non-tender, present bowel sounds Extremities: no tenderness, no cyanosis Laboratory Tests Test 09/26/19 04:00 White Blood Count 9.3 K/UL (4.8-10.8) Red Blood Count 3.11 M/UL (4.70-6.10) L Hemoglobin 8.4 G/DL (14.2-18.0) L Hematocrit 25.6 % (42.0-52.0) L Mean Corpuscular Volume 82 FL (80-99) Mean Corpuscular Hemoglobin 27.0 PG (27.0-31.0) Mean Corpuscular Hemoglobin Concent 32.8 G/DL (32.0-36.0) Red Cell Distribution Width 18.0 % (11.6-14.8) H Platelet Count 568 K/UL (150-450) H Mean Platelet Volume 5.5 FL (6.5-10.1) L Neutrophils (%) (Auto) 68.0 % (45.0-75.0) Lymphocytes (%) (Auto) 18.3 % (20.0-45.0) L Monocytes (%) (Auto) 10.3 % (1.0-10.0) H Eosinophils (%) (Auto) 2.3 % (0.0-3.0) Basophils (%) (Auto) 1.2 % (0.0-2.0) Sodium Level 142 MMOL/L (136-145) Potassium Level 3.9 MMOL/L (3.5-5.1) Chloride Level 108 MMOL/L (98-107) H Carbon Dioxide Level 25 MMOL/L (21-32) Anion Gap 9 mmol/L (5-15) Blood Urea Nitrogen 26 mg/dL (7-18) H Creatinine 1.3 MG/DL (0.55-1.30) Estimat Glomerular Filtration Rate > 60 mL/min (>60) Glucose Level 133 MG/DL (74-106) H Calcium Level 8.2 MG/DL (8.5-10.1) L Plan Problems: (1) UTI (urinary tract infection) (2) Acute respiratory failure Assessment & Plan: There is infiltrate suspected in the right perihilar region obscuring the right hilum. There is a hazy opacity that may partially be accounted for by pleural fluid on the right. Reticular densities are present on the left in the perihilar aspect of the lung. Endotracheal tube is in good position just above the anselmo. Heart size is normal. IMPRESSION: Suspected perihilar airspace disease in the right lung suspicious for pneumonia. Reticular nodular infiltrate in the left lung noted also. Right pleural effusion suspected. Endotracheal tube in good position cont vents support Lungs: Similar bilateral interstitial prominence, greater on the right. Stable right perihilar, mid and lower lung opacities. Similar left lung base opacity. Pleural space: Small left pleural effusion is stable. Loculated right pleural effusion is stable. No pneumothorax. Heart: Unremarkable. No cardiomegaly. Mediastinum: Unremarkable. Bones/joints: Unremarkable. Tubes, lines and devices: Endotracheal tube has been pulled back and is 10 cm above the anselmo near the thoracic inlet. IMPRESSION: Endotracheal tube has been pulled back and is 10 cm above the anselmo near the thoracic inlet. Remainder findings are stable. may need thoracentesis soon Moderate size right pleural effusion with right upper and lower lobe atelectasis/consolidation, as well as mild pulmonary edema.. (3) Sepsis Assessment & Plan: Pt cachetic and presented on admission with multiple pressure injuries. Partial thickness pressure injury Cleft of L ear(L)1.2cm x (W)0.4cm. Base of wound moist and viable with small amt sanguineous exudate. Partial thickness pressure injury cleft of R ear(L)0.5cm x (W)0.7cm. Base of wound moist and viable Periwound erythematous.Small amt sanguineous exudate noted. Sacral DTPI(L)5cm x (W)10.5cm. Base of injury is purple with maroon borders. Coccygeal bony protrusion with darker skin tone, and small opening noted to R gluteus (L)0.5cm x (W)0.5cm within base of injury. No further skin breakdown periwound. Intact blood blister noted to R 1st metatarsal head(L)1.1cm x (W)2.5cm. DTPI noted to L heel extending into plantar aspect. Base of injury presents as an intact blood filled blister. Periwound is boggy with non-blanching erythema. R heel is boggy but blanchable. wounds unlikely etiology of sepsis respiratory but given current condition high risk for breakdown and worsening will monitor closely discussed with RN and staff great care being provided coded acls intubated in ICU prognosis guarded Tx.Plan: Apply Betadine to clefts of R and L ears. Pad oxygen tubing with gauze and keep oxygen tubing loose. Apply Moisture Barrier Paste to Sacrum. Cover with Optifoam drsg. Change every 3 days and prn. Apply Betadine to L heel. Cover with Optifoam drsg. Change every 3 days and prn. Apply Betadine to R 1st metatarsal head. Cover with Optifoam drsg. Change every 3 days and prn. Apply Cavilon Skin Barrier R heel. Cover with Optifoam drsg. Change every 7 days and prn. Reposition at least every 2hours or as tolerated. Off-load heels with pillow. on air mattress but not very comfortable appearing cont current care / pulm management (4) Severe anemia (5) Nosocomial pneumonia (6) Atrial fibrillation (7) Acute metabolic encephalopathy (8) History of CVA (cerebrovascular accident) (9) Diabetes mellitus (10) Hypothyroidism (11) Alzheimer's dementia (12) PVC (premature ventricular contraction) (13) Hypertension (14) Squamous cell esophageal cancer (15) Feeding by G-tube (16) Dehydration (17) Anemia (18) Severe malnutrition Assessment & Plan: DAILY ESTIMATED NEEDS: Needs based on underweight, suspected wt loss, wounds/ 63kg 25-33 kcals/kg 6183-0812 total kcals 1.25-2 g protein/kg 78-126 g total protein 25-30 mL/kg 1503-7294 total fluid mLs NUTRITION DIAGNOSIS: * Swallowing difficulty R/T dysphagia w/ h/o CVA as evidenced by now s/p recent PEG placement (08/08/19), on GT feeds, held at time, s/p code blue (09/07), orally intubated, now extubated. * Increased kcal/prot intake needs R/T suspected significant wt loss and underweight status, wounds as evidenced by 10lbs/6.7% wt loss in 1 month, 76% IBW w/ BMI of 18.4, admitted w/ DTPI wound @ sacrum, Lt heel, partial thickness pressure injury cleft of R L ear. CURRENT TF:Osmolite 1.2 @ 60ml/hr x 22 hrs ENTERAL NUTRITION RECOMMENDATIONS: Osmolite 1.2 @ 60ml/hr x 22 hrs + Prosource x 1 to provide 1320ml, 1584kcal, 73g +11g prot, 1082ml free water - Add Prosource x 1 to meet protein needs - HOLD 1 hr before and after synthroid meds. add Prosource 1 pack daily to better meet est pro needs - Flush per MD/ HOB over 30 degrees WITH ELEV BG, rec TF change to Glucerna 1.2 w/ a goal of 60ml/hr x22 hrs to provide 1320ml, 1584kcal, 79g prot ADDITIONAL RECOMMENDATIONS: * PER SNF: HT=6'1" WT= 139lbs ("August weight" from SNF) -> calibrated bedscale wt * Monitor K, need for TF change (K 5.9 upon adm, now wnl) * Wound care: add Vit C 500mg QD + Wesley 1pkt BID via PEG * Monitor BGs, need for NISS: h/o DM per MD (checking A1C not suggested given low hgb) (19) Encounter for PEG (percutaneous endoscopic gastrostomy) (20) At high risk for aspiration (21) Pleural effusion (22) Suspected COVID-19 virus infection Jan Mora Sep 26, 2019 10:22
--- NOTE | 2019-09-26 11:03 | Infectious Diseases Prog Note ---
Assessment/Plan Assessment/Plan 09/23 SP asystole cardiac arrest VDRF 09/23 Afebrile No leukocytosis PNA VDRF, sp intubation 09/08, sp extubation 09/18, now on NC SARS-CoV neg x2 MRSA screen pos sp cx: PSA (hensley S) and proteus (hensley S) 09/24 CXR: Moderate size right pleural effusion with right upper and lower lobe atelectasis/consolidation, as well as mild pulmonary edema.. 09/17 CXR: Similar bilateral interstitial prominence, greater on the right.Stable right perihilar, mid and lower lung opacities. Similar left lung base opacity. Small left pleural effusion is stable. Loculated right pleural effusion is stable. No pneumothorax. CXR: Right pleural effusion, also demonstrated on prior 08/09/2019 exam, slightly increased. Hazy right lung parenchymal opacity probably represents a superimposed pleural fluid but infiltrate also possible. R pleural effusion, exudative -09/18 SP thorancetesis; removal of 2050 mL fluid; Fluid prot 5 (serum prot 7.2 ); cx Neg QTc 419 RAMAN, improving DM HTN CVA Dementia Nonverbal G tube Plan: monitor off abx 09/19 SPcefepime # 14/14 09/09 SP vanc #4 ( Cr increased) ICU care monitor temp and CBC DC COVID isolation isolation precaution per hospital protocol surveillance sp cx DW RN Thank you for this consult. [facility] will continue to follow the patient with you. Subjective Allergies: Coded Allergies: PENICILLINS (Verified Allergy, Unknown, 10/27/18) tolretas cephalosporins Subjective Tm 99.9 patient had asystole cardiac arrest on 09/23 and was intubated, now in ICU, remains intubated Fio2 40% Cr improving Objective Vital Signs Last 24 Hour Vital Signs Date Time Temp Pulse Resp B/P (MAP) Pulse Ox O2 Delivery O2 Flow Rate FiO2 09/26/19 10:00 75 16 125/52 (76) 100 09/26/19 09:00 73 20 143/56 (85) 100 09/26/19 09:00 72 18 40 09/26/19 08:50 72 134/45 09/26/19 08:00 Mechanical Ventilator 09/26/19 08:00 40 09/26/19 08:00 99.9 73 17 137/53 (81) 100 4/20/20 07:05 72 18 40 09/26/19 07:00 71 21 145/57 (86) 100 09/26/19 06:00 72 19 135/58 (83) 100 09/26/19 05:00 70 19 145/49 (81) 100 09/26/19 04:00 70 09/26/19 04:00 40 09/26/19 04:00 98.8 72 19 135/50 (78) 100 09/26/19 04:00 Mechanical Ventilator 09/26/19 03:47 74 21 40 09/26/19 03:40 69 21 135/56 (82) 100 09/26/19 03:00 69 15 134/52 (79) 100 09/26/19 02:00 68 16 117/48 (71) 100 09/26/19 01:00 71 18 128/45 (72) 100 09/26/19 00:00 72 09/26/19 00:00 40 09/26/19 00:00 Mechanical Ventilator 09/26/19 00:00 98.2 68 14 120/51 (74) 100 09/25/19 23:33 65 13 40 09/25/19 23:00 65 19 112/41 (64) 100 09/25/19 22:00 66 20 114/53 (73) 100 09/25/19 21:00 70 19 118/47 (70) 100 09/25/19 20:42 78 112/45 09/25/19 20:00 98.6 68 16 120/44 (69) 100 09/25/19 20:00 70 09/25/19 20:00 Mechanical Ventilator 09/25/19 20:00 40 09/25/19 19:17 65 15 40 09/25/19 19:00 68 19 117/49 (71) 99 09/25/19 18:00 65 15 111/42 (65) 100 09/25/19 17:00 67 16 129/51 (77) 100 09/25/19 16:00 40 09/25/19 16:00 Mechanical Ventilator 09/25/19 16:00 98.4 66 13 112/50 (70) 100 09/25/19 16:00 64 09/25/19 15:40 70 12 40 09/25/19 15:00 71 16 120/47 (71) 100 09/25/19 14:00 72 17 130/51 (77) 100 09/25/19 13:00 73 16 126/48 (74) 100 09/25/19 12:12 76 12 40 09/25/19 12:00 98.2 74 17 124/49 (74) 100 09/25/19 12:00 76 09/25/19 12:00 40 09/25/19 12:00 Mechanical Ventilator 09/25/19 11:00 76 14 122/47 (72) 100 Height (Feet): 5 Height (Inches): 11.00 Weight (Pounds): 184 Objective Gen: NAD. well nourished HEENT: ETT. oral secretions Resp: coarse. equal chest rise. regular rate and rhythm. Abd: Soft. no TTP. nondistended. G tube site c/d/i. Neuro: opens eyes to voice and follows simple commands Laboratory Tests Test 09/26/19 04:00 09/26/19 10:20 White Blood Count 9.3 K/UL (4.8-10.8) Red Blood Count 3.11 M/UL (4.70-6.10) L Hemoglobin 8.4 G/DL (14.2-18.0) L Hematocrit 25.6 % (42.0-52.0) L Mean Corpuscular Volume 82 FL (80-99) Mean Corpuscular Hemoglobin 27.0 PG (27.0-31.0) Mean Corpuscular Hemoglobin Concent 32.8 G/DL (32.0-36.0) Red Cell Distribution Width 18.0 % (11.6-14.8) H Platelet Count 568 K/UL (150-450) H Mean Platelet Volume 5.5 FL (6.5-10.1) L Neutrophils (%) (Auto) 68.0 % (45.0-75.0) Lymphocytes (%) (Auto) 18.3 % (20.0-45.0) L Monocytes (%) (Auto) 10.3 % (1.0-10.0) H Eosinophils (%) (Auto) 2.3 % (0.0-3.0) Basophils (%) (Auto) 1.2 % (0.0-2.0) Sodium Level 142 MMOL/L (136-145) Potassium Level 3.9 MMOL/L (3.5-5.1) Chloride Level 108 MMOL/L (98-107) H Carbon Dioxide Level 25 MMOL/L (21-32) Anion Gap 9 mmol/L (5-15) Blood Urea Nitrogen 26 mg/dL (7-18) H Creatinine 1.3 MG/DL (0.55-1.30) Estimat Glomerular Filtration Rate > 60 mL/min (>60) Glucose Level 133 MG/DL (74-106) H Calcium Level 8.2 MG/DL (8.5-10.1) L Arterial Blood pH 7.498 (7.350-7.450) Arterial Blood Partial Pressure CO2 35.1 mmHg (35.0-45.0) Arterial Blood Partial Pressure O2 204.3 mmHg (75.0-100.0) H Arterial Blood HCO3 26.6 mmol/L (22.0-26.0) H Arterial Blood Oxygen Saturation 98.7 % (95-100) Arterial Blood Base Excess 3.4 (-2-2) H Watson Test Positive Current Medications Medications (Trade) Dose Ordered Sig/Kike Route PRN Reason Start Time Stop Time Status Last Admin Dose Admin Acetaminophen (Tylenol) 650 mg Q4H PRN ORAL fever 09/24/19 03:00 10/07/19 02:54 Albuterol/ Ipratropium (Albuterol/ Ipratropium) 3 ml Q4HRT PRN HHN sob 09/24/19 08:45 09/29/19 08:44 Amlodipine Besylate (Norvasc) 5 mg BID@0900,2100 NG 09/24/19 21:00 10/22/19 08:59 09/26/19 08:50 Dextrose/Sodium Chloride 1,000 ml @ 50 mls/hr Q20H IV 09/25/19 11:45 10/25/19 11:44 09/26/19 08:52 Heparin Sodium (Porcine) (Heparin 5000 units/ml) 5,000 units EVERY 12 HOURS SUBQ 09/24/19 09:00 10/22/19 08:59 09/26/19 08:51 Levothyroxine Sodium (Synthroid) 75 mcg DAILY@0630 ORAL 09/24/19 06:30 10/07/19 08:29 09/26/19 06:19 Mirtazapine (Remeron) 7.5 mg BEDTIME ORAL 09/24/19 21:00 6/30/20 20:59 09/25/19 20:40 Nitroglycerin (Ntg) 0.4 mg Q5M PRN SL Prn Chest Pain 09/24/19 02:30 10/07/19 04:29 Ondansetron HCl (Zofran) 4 mg Q6H PRN IVP Nausea & Vomiting 09/24/19 03:00 10/07/19 02:57 Pantoprazole (Protonix) 40 mg Q12HR IVP 09/24/19 09:00 10/10/19 08:59 09/26/19 08:50 Polyethylene Glycol (Miralax) 17 gm DAILYPRN PRN ORAL Constipation 09/24/19 03:00 10/07/19 02:57 Promethazine HCl/ Codeine (Phenergan with Codeine) 5 ml Q4H PRN ORAL For Cough 09/24/19 03:00 10/07/19 02:58 Quetiapine Fumarate (SEROqueL) 25 mg Q8H PRN NG Agitation 09/24/19 02:35 10/30/19 02:34 Danielle Roach M.D. Sep 26, 2019 11:03
--- NOTE | 2019-09-26 11:15 | Diagnostic Imaging Report ---
Indication: Reason For Exam: SOB Technique: One view of the chest Comparison: 09/25/2019 Findings: Increased large right pleural effusion is demonstrated. New or increased small left pleural effusion is present. Interstitial congestion and hilar parenchymal opacities are unchanged. Stable satisfactory position of endotracheal tube, tip projecting grossly 2 cm above the anselmo. Impression: Increasing large right, new or increased small left pleural effusion, over one day Persistent congestive changes
--- NOTE | 2019-09-26 11:52 | Diagnostic Imaging Report ---
Indication: Shortness of breath Technique: Grayscale and duplex images of the bilateral lower extremity veins Comparison: 10/25/2018 Findings: Exam is somewhat limited due to patient contracture making exam technically difficult. Bilaterally, grayscale and duplex images demonstrate no evidence of intraluminal thrombus. Normal phasic Doppler waveforms, demonstrating normal augmentation response and no evidence of valvular insufficiency. Greater saphenous vein(s) and tibial veins are patent. Normal compressibility. No significant interim change Impression: Negative for evidence of lower extremity deep venous thrombosis bilaterally
--- NOTE | 2019-09-26 11:53 | Pulmonolgy Critical Care Note ---
Critical Care - Asmt/Plan Problems: (1) Acute respiratory failure Assessment & Plan: got reintubated (2) Pleural effusion (3) Suspected COVID-19 virus infection (4) Nosocomial pneumonia (5) Sepsis (6) Squamous cell esophageal cancer (7) Diabetes mellitus (8) At high risk for aspiration (9) Severe malnutrition (10) Alzheimer's dementia (11) History of CVA (cerebrovascular accident) (12) Feeding by G-tube Respiratory: monitor respiratory rate, adjust FIO2, CXR Cardiac: continue pressors, continue to monitor HR/BP Renal: F/U I&O, keep IV fluid, check electrolytes Infectious Disease: check cultures Gastrointestinal: continue feedings/current rate Endocrine: monitor blood sugar, continue sliding scale insulin Hematologic: transfuse if hgb<8.5 Neurologic: PRN Ativan, PRN Morphine, keep patient comfortable Affect: PRN ativan Time Spent (Minutes): 40 Notes Reviewed: cob sawyer, cardio Discussed with: nurses, consultants, returned case inspectorclinical marketing manager - Objective Last 24 Hour Vital Signs Date Time Temp Pulse Resp B/P (MAP) Pulse Ox O2 Delivery O2 Flow Rate FiO2 09/26/19 11:00 76 18 40 09/26/19 10:00 75 16 125/52 (76) 100 09/26/19 09:00 73 20 143/56 (85) 100 09/26/19 09:00 72 18 40 09/26/19 08:50 72 134/45 09/26/19 08:00 Mechanical Ventilator 09/26/19 08:00 40 09/26/19 08:00 99.9 73 17 137/53 (81) 100 09/26/19 07:05 72 18 40 09/26/19 07:00 71 21 145/57 (86) 100 09/26/19 06:00 72 19 135/58 (83) 100 09/26/19 05:00 70 19 145/49 (81) 100 09/26/19 04:00 70 09/26/19 04:00 40 09/26/19 04:00 98.8 72 19 135/50 (78) 100 09/26/19 04:00 Mechanical Ventilator 09/26/19 03:47 74 21 40 09/26/19 03:40 69 21 135/56 (82) 100 09/26/19 03:00 69 15 134/52 (79) 100 09/26/19 02:00 68 16 117/48 (71) 100 09/26/19 01:00 71 18 128/45 (72) 100 09/26/19 00:00 72 09/26/19 00:00 40 09/26/19 00:00 Mechanical Ventilator 09/26/19 00:00 98.2 68 14 120/51 (74) 100 09/25/19 23:33 65 13 40 09/25/19 23:00 65 19 112/41 (64) 100 09/25/19 22:00 66 20 114/53 (73) 100 09/25/19 21:00 70 19 118/47 (70) 100 09/25/19 20:42 78 112/45 09/25/19 20:00 98.6 68 16 120/44 (69) 100 09/25/19 20:00 70 09/25/19 20:00 Mechanical Ventilator 09/25/19 20:00 40 09/25/19 19:17 65 15 40 09/25/19 19:00 68 19 117/49 (71) 99 09/25/19 18:00 65 15 111/42 (65) 100 09/25/19 17:00 67 16 129/51 (77) 100 09/25/19 16:00 40 09/25/19 16:00 Mechanical Ventilator 09/25/19 16:00 98.4 66 13 112/50 (70) 100 09/25/19 16:00 64 09/25/19 15:40 70 12 40 09/25/19 15:00 71 16 120/47 (71) 100 09/25/19 14:00 72 17 130/51 (77) 100 09/25/19 13:00 73 16 126/48 (74) 100 09/25/19 12:12 76 12 40 09/25/19 12:00 98.2 74 17 124/49 (74) 100 09/25/19 12:00 76 09/25/19 12:00 40 09/25/19 12:00 Mechanical Ventilator Status: sedated Condition: grave HEENT: atraumatic Neck: full ROM Heart: HR/BP stable Abdomen: soft Extremities: no C/C/E Decubiti: stage Critical Care - Subjective ROS Limited/Unobtainable: Yes Condition: critical EKG Rhythm: Sinus Rhythm FI02: 40 Vent Support Breath Rate: 12 Vent Support Mode: AC Vent Tidal Volume: 550 Sputum Amount: Small PEEP: 5.0 PIP: 26 Tube Feeding Amount: 60 I&O: Intake and Output 09/25/19 09/26/19 19:00 07:00 Intake Total 1070 ml 1210 ml Output Total 340 ml 600 ml Balance 730 ml 610 ml Intake Free Water 100 ml IV Total 400 ml 600 ml Tube Feeding 570 ml 610 ml Output Urine Total 340 ml 600 ml CXR: large effusion at right ET-Tube: 7.5 ET Position: 26 Labs: Laboratory Tests Test 09/26/19 04:00 09/26/19 10:20 White Blood Count 9.3 K/UL (4.8-10.8) Red Blood Count 3.11 M/UL (4.70-6.10) L Hemoglobin 8.4 G/DL (14.2-18.0) L Hematocrit 25.6 % (42.0-52.0) L Mean Corpuscular Volume 82 FL (80-99) Mean Corpuscular Hemoglobin 27.0 PG (27.0-31.0) Mean Corpuscular Hemoglobin Concent 32.8 G/DL (32.0-36.0) Red Cell Distribution Width 18.0 % (11.6-14.8) H Platelet Count 568 K/UL (150-450) H Mean Platelet Volume 5.5 FL (6.5-10.1) L Neutrophils (%) (Auto) 68.0 % (45.0-75.0) Lymphocytes (%) (Auto) 18.3 % (20.0-45.0) L Monocytes (%) (Auto) 10.3 % (1.0-10.0) H Eosinophils (%) (Auto) 2.3 % (0.0-3.0) Basophils (%) (Auto) 1.2 % (0.0-2.0) Sodium Level 142 MMOL/L (136-145) Potassium Level 3.9 MMOL/L (3.5-5.1) Chloride Level 108 MMOL/L (98-107) H Carbon Dioxide Level 25 MMOL/L (21-32) Anion Gap 9 mmol/L (5-15) Blood Urea Nitrogen 26 mg/dL (7-18) H Creatinine 1.3 MG/DL (0.55-1.30) Estimat Glomerular Filtration Rate > 60 mL/min (>60) Glucose Level 133 MG/DL (74-106) H Calcium Level 8.2 MG/DL (8.5-10.1) L Arterial Blood pH 7.498 (7.350-7.450) Arterial Blood Partial Pressure CO2 35.1 mmHg (35.0-45.0) Arterial Blood Partial Pressure O2 204.3 mmHg (75.0-100.0) H Arterial Blood HCO3 26.6 mmol/L (22.0-26.0) H Arterial Blood Oxygen Saturation 98.7 % (95-100) Arterial Blood Base Excess 3.4 (-2-2) H Watson Test Positive Vania Hui MD Sep 26, 2019 11:53
--- NOTE | 2019-09-26 13:32 | Internal Med Progress Note ---
Subjective Date of Service: Sep 26, 2019 Physician Name BahXander Attending Physician Lamont Hayes MD Current Medications Medications (Trade) Dose Ordered Sig/Kike Route PRN Reason Start Time Stop Time Status Last Admin Dose Admin Acetaminophen (Tylenol) 650 mg Q4H PRN ORAL fever 09/24/19 03:00 10/07/19 02:54 Albuterol/ Ipratropium (Albuterol/ Ipratropium) 3 ml Q4HRT PRN HHN sob 09/24/19 08:45 09/29/19 08:44 Amlodipine Besylate (Norvasc) 5 mg BID@0900,2100 NG 09/24/19 21:00 10/22/19 08:59 09/26/19 08:50 Dextrose/Sodium Chloride 1,000 ml @ 50 mls/hr Q20H IV 09/25/19 11:45 10/25/19 11:44 09/26/19 08:52 Heparin Sodium (Porcine) (Heparin 5000 units/ml) 5,000 units EVERY 12 HOURS SUBQ 09/24/19 09:00 10/22/19 08:59 09/26/19 08:51 Levothyroxine Sodium (Synthroid) 75 mcg DAILY@0630 ORAL 09/24/19 06:30 10/07/19 08:29 09/26/19 06:19 Mirtazapine (Remeron) 7.5 mg BEDTIME ORAL 09/24/19 21:00 12/06/19 20:59 09/25/19 20:40 Nitroglycerin (Ntg) 0.4 mg Q5M PRN SL Prn Chest Pain 09/24/19 02:30 10/07/19 04:29 Ondansetron HCl (Zofran) 4 mg Q6H PRN IVP Nausea & Vomiting 09/24/19 03:00 10/07/19 02:57 Pantoprazole (Protonix) 40 mg Q12HR IVP 09/24/19 09:00 10/10/19 08:59 09/26/19 08:50 Polyethylene Glycol (Miralax) 17 gm DAILYPRN PRN ORAL Constipation 09/24/19 03:00 10/07/19 02:57 Promethazine HCl/ Codeine (Phenergan with Codeine) 5 ml Q4H PRN ORAL For Cough 09/24/19 03:00 10/07/19 02:58 Quetiapine Fumarate (SEROqueL) 25 mg Q8H PRN NG Agitation 09/24/19 02:35 10/30/19 02:34 Allergies: Coded Allergies: PENICILLINS (Verified Allergy, Unknown, 10/27/18) tolretas cephalosporins ROS Limited/Unobtainable: Yes Subjective 84 YO M admitted with cough and congestion. Cover for Int Med-Dr Hayes. Reintubated 09/24/19 after cardiopulmonary arrest-see code blue note. ICU Objective Last Vital Signs Date Time Temp Pulse Resp B/P (MAP) Pulse Ox O2 Delivery O2 Flow Rate FiO2 09/26/19 13:04 83 24 40 09/26/19 12:00 Mechanical Ventilator 09/26/19 12:00 98.4 123/52 (75) 100 09/23/19 21:00 3.0 Laboratory Tests Test 09/26/19 04:00 09/26/19 10:20 White Blood Count 9.3 K/UL (4.8-10.8) Red Blood Count 3.11 M/UL (4.70-6.10) L Hemoglobin 8.4 G/DL (14.2-18.0) L Hematocrit 25.6 % (42.0-52.0) L Mean Corpuscular Volume 82 FL (80-99) Mean Corpuscular Hemoglobin 27.0 PG (27.0-31.0) Mean Corpuscular Hemoglobin Concent 32.8 G/DL (32.0-36.0) Red Cell Distribution Width 18.0 % (11.6-14.8) H Platelet Count 568 K/UL (150-450) H Mean Platelet Volume 5.5 FL (6.5-10.1) L Neutrophils (%) (Auto) 68.0 % (45.0-75.0) Lymphocytes (%) (Auto) 18.3 % (20.0-45.0) L Monocytes (%) (Auto) 10.3 % (1.0-10.0) H Eosinophils (%) (Auto) 2.3 % (0.0-3.0) Basophils (%) (Auto) 1.2 % (0.0-2.0) Sodium Level 142 MMOL/L (136-145) Potassium Level 3.9 MMOL/L (3.5-5.1) Chloride Level 108 MMOL/L (98-107) H Carbon Dioxide Level 25 MMOL/L (21-32) Anion Gap 9 mmol/L (5-15) Blood Urea Nitrogen 26 mg/dL (7-18) H Creatinine 1.3 MG/DL (0.55-1.30) Estimat Glomerular Filtration Rate > 60 mL/min (>60) Glucose Level 133 MG/DL (74-106) H Calcium Level 8.2 MG/DL (8.5-10.1) L Arterial Blood pH 7.498 (7.350-7.450) Arterial Blood Partial Pressure CO2 35.1 mmHg (35.0-45.0) Arterial Blood Partial Pressure O2 204.3 mmHg (75.0-100.0) H Arterial Blood HCO3 26.6 mmol/L (22.0-26.0) H Arterial Blood Oxygen Saturation 98.7 % (95-100) Arterial Blood Base Excess 3.4 (-2-2) H [place] Test Positive Intake and Output 09/25/19 09/26/19 19:00 07:00 Intake Total 1070 ml 1210 ml Output Total 340 ml 600 ml Balance 730 ml 610 ml Intake Free Water 100 ml IV Total 400 ml 600 ml Tube Feeding 570 ml 610 ml Output Urine Total 340 ml 600 ml Objective PHYSICAL EXAMINATION: GENERAL: The patient is a thin-appearing male, in no apparent distress. HEENT: Eyes, pupils are equal and responsive to light and accommodation. Extraocular movements are intact. NECK: Supple without lymphadenopathy. CHEST: Mech vent; Lungs are clear to auscultation bilaterally with decreased breath sounds on the right. There are no wheezes appreciated. ABDOMEN: Soft, nontender, and nondistended. Positive bowel sounds. No evidence of hepatosplenomegaly. Currently, no rebound or guarding noted. EXTREMITIES: Negative for clubbing, cyanosis, or edema. RECTAL/GENITAL: Not performed. NEUROLOGIC: Cranial nerves II through XII are grossly intact without focal deficits. Assessment/Plan Assessment/Plan ASSESSMENT: This is an 84-year-old male with: 1. Possible right pneumonia=pseudamonas 2. Urinary tract infection=jennifer 3. Right pleural effusion. 4. Esophageal mass. 5. Dysphagia. 6. Diabetes. 7. Alzheimer's dementia. 8. Cerebrovascular disease. 9. Hypothyroidism. 10. Seizure disorder. 11. Iron deficiency anemia. 13. Respiratory failure 14. S/P cardiopulmonary arrest TREATMENT: 1. Right perihilar Pneumonia/pleural effusion. COVID 19 and Influenza negative. A Pulmonary consultation has been obtained with Dr. Vania Hui. S/P right thoracentesis 09/19/19. We will follow recommendation of Pulmonary. ID=Dr Roach ABX= S/P cefepime 2. Urinary tract infection. . A urine culture =jennifer 3. Right pleural effusion. As above, a Pulmonary consultation has been obtained with Dr. Vania Hui. The patient may require thoracentesis during this hospitalization. 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 A Gastroenterology consultation has been obtained with Dr. Darrick Rosario. 5. Dysphagia. The patient is status post PEG placement on 08/08/2019 at [facility] by Dr. Darrick Rosario. 6. Diabetes type 2. A NovoLog sliding scale has been instituted. 7. Alzheimer's dementia. 8. Cerebrovascular disease, status post cerebrovascular accident. 9. Hypothyroidism. Continue levothyroxine as above. 10. Seizure disorder. 11. Iron deficiency anemia. 12. reintubated 09/24/19-see code blue note Xander Bah MD Sep 26, 2019 13:32
--- NOTE | 2019-09-26 20:30 | Consultation ---
DATE OF CONSULTATION: 09/26/2019 CONSULTING PHYSICIAN: Darrick Rosario M.D. CHIEF COMPLAINT: Malfunctioning G-tube. HISTORY OF PRESENT ILLNESS: Most of history per chart. Patient is in ICU at [facility]. He had a Muniz catheter at the G-tube site, which came out. The nurses called GI for replacement. PAST MEDICAL HISTORY: 1. Esophageal cancer. 2. Dysphagia. 3. Diabetes type 2. 4. Dementia. 5. CVA. 6. Hypothyroidism. 7. Seizure disorder. 8. Iron deficiency anemia. 9. Respiratory failure. 10. Dysphagia with G-tube. PAST SURGICAL HISTORY: None per chart. ALLERGIES: To penicillin. MEDICATIONS: Please see medication reconciliation list. SOCIAL HISTORY: Patient currently lives in a custodial. No history of tobacco, alcohol, or drug abuse. FAMILY HISTORY: Noncontributory. REVIEW OF SYSTEMS: Unable to obtain. PHYSICAL EXAMINATION: VITAL SIGNS: Patient is intubated in ICU. Temperature 98.4, pulse is 74, respirations 16, blood pressure is 120/52. HEENT: Normocephalic and atraumatic. Sclerae anicteric. NECK: Supple. No evidence of obvious lymphadenopathy. CARDIOVASCULAR: Tachy. Regular rate. Plus S1-S2. LUNGS: Decreased breath sounds bilaterally based on the supine exam. ABDOMEN: Soft and nontender. G-tube in place. Muniz catheter at the G-tube site. No rebound. No guarding. No peritoneal sign. EXTREMITIES: Bilateral lower extremity trace edema. LABORATORY DATA: White count 11.3, hemoglobin 8.4, hematocrit 25, platelet count is 568. Sodium 142, potassium 3.9, BUN 26, creatinine is 1.3. ASSESSMENT AND PLAN: This is an 84-year-old male with anemia, dysphagia, respiratory failure. I have seen him in the ICU. A regular Muniz catheter at the place of the G-tube site, which we removed it. We placed a 20-Cymraes balloon type for G-tube replacement, inflated the balloon by 20 mL syringe and we aspirated some gastric juice from the tube. I instructed the nurses to resume tube feeding through the G-tube. Monitor laboratories. Anemia workup. We will make further recommendation as we go along. I want to thank Dr. Lamont Hayes for this kind referral. Darrick Avelino Rosario DR: TIEN JOB#: [id number] CC: Lamont Hayes M.D.; Fax#: [phone]
[2019-09-27] VITALS (25 sets, daily range): BP systolic 128–158; BP diastolic 47–104
[2019-09-27 05:33] LABS: BASOPHILS % (AUTO) 1.3 % (0.0-2.0); EOSINOPHILS % (AUTO) 2.5 % (0.0-3.0); HEMATOCRIT 26.4 % (42.0-52.0); HEMOGLOBIN 8.6 G/DL (14.2-18.0); LYMPHOCYTES % (AUTO) 18.8 % (20.0-45.0); MEAN CORPUSCULAR VOLUME 83 FL (80-99); MONOCYTES % (AUTO) 12.5 % (1.0-10.0); NEUTROPHILS % (AUTO) 64.9 % (45.0-75.0); PLATELET COUNT 580 K/UL (150-450); RED BLOOD COUNT 3.19 M/UL (4.70-6.10); RED CELL DISTRIBUTION WIDTH 17.9 % (11.6-14.8); WHITE BLOOD COUNT 9.3 K/UL (4.8-10.8)
[2019-09-27 06:11] LABS: ALANINE AMINOTRANSFERASE 49 U/L (12-78); ALBUMIN 1.8 G/DL (3.4-5.0); ALBUMIN/GLOBULIN RATIO 0.4 (1.0-2.7); ALKALINE PHOSPHATASE 148 U/L (46-116); ANION GAP 9 mmol/L (5-15); ASPARTATE AMINO TRANSFERASE 72 U/L (15-37); BILIRUBIN,TOTAL 0.3 MG/DL (0.2-1.0); BLOOD UREA NITROGEN 23 mg/dL (7-18); CALCIUM 8.4 MG/DL (8.5-10.1); CARBON DIOXIDE 25 MMOL/L (21-32); CHLORIDE 104 MMOL/L (98-107); CREATININE 1.2 MG/DL (0.55-1.30); PHOSPHORUS 3.3 MG/DL (2.5-4.9); POTASSIUM 4.5 MMOL/L (3.5-5.1); SODIUM 138 MMOL/L (136-145)
[2019-09-27] MEDS: D5 1/2NS 1,000 ML IV SCH (06:13)
[2019-09-27] MEDS: Pantoprazole Inj IVP SCH ×2 (08:37→20:33)
[2019-09-27] MEDS: Heparin 5000 units/ml inj SUBQ SCH ×2 (08:38→20:35)
--- NOTE | 2019-09-27 09:46 | Nephrology Progress Note ---
Assessment/Plan Problem List: (1) RAMAN (acute kidney injury) Assessment: Serum creatinine normalized with hydration (2) Dehydration (3) Suspected COVID-19 virus infection (4) Anemia (5) Sepsis (6) Diabetes mellitus (7) Hypothyroidism Assessment - Acute renal failure - Severe anemia - Sepsis, pneumonia, acute respiratory failure, suspected: Viewed 19 virus infection - Diabetes mellitus - Hypothyroidism - Feeding by G-tube - Squamous cell esophageal cancer - History of CVA (cerebrovascular accident) Plan Patient was coded early September 23 morning and back in ICU intubated Serum creatinine miguel to 1.5, now back to normal Stable from renal standpoint of view at this point Previously: Pneumonia SARS-CoV neg x2 MRSA screen pos sp cx: PSA and proteus Changes Seroquel to "as needed" due to bradycardia Discontinue IV fluid Monitor renal parameters, serum creatinine Adjust electrolytes with supplements Increase Synthroid dose Avoid nephrotoxic's as possible Ventilator management Urine studies Per orders Subjective ROS Limited/Unobtainable: Yes Objective Objective Last 24 Hour Vital Signs Date Time Temp Pulse Resp B/P (MAP) Pulse Ox O2 Delivery O2 Flow Rate FiO2 09/27/19 08:50 78 21 40 09/27/19 08:38 76 154/60 09/27/19 07:13 76 19 40 09/27/19 06:00 99.0 87 22 158/60 (92) 100 09/27/19 05:00 73 20 150/63 (92) 100 09/27/19 04:48 80 21 40 09/27/19 04:00 40 09/27/19 04:00 Mechanical Ventilator 09/27/19 04:00 74 09/27/19 04:00 70 17 134/63 (86) 100 09/27/19 03:05 76 19 40 09/27/19 03:00 69 18 141/55 (83) 100 09/27/19 02:00 69 16 133/56 (81) 99 09/27/19 01:00 71 17 129/55 (79) 100 09/27/19 00:20 70 17 128/104 (112) 100 09/27/19 00:00 72 09/27/19 00:00 Mechanical Ventilator 09/27/19 00:00 66 21 128/59 (82) 100 09/27/19 00:00 40 09/26/19 23:00 67 23 131/49 (76) 100 09/26/19 22:54 85 22 40 09/26/19 22:00 68 19 125/49 (74) 100 09/26/19 21:41 66 121/45 09/26/19 21:00 67 18 129/47 (74) 100 09/26/19 20:00 40 09/26/19 20:00 Mechanical Ventilator 09/26/19 20:00 68 09/26/19 20:00 99.5 70 15 119/51 (73) 100 09/26/19 19:18 77 20 40 09/26/19 19:00 71 19 128/51 (76) 100 09/26/19 18:00 71 17 124/52 (76) 100 09/26/19 17:08 73 22 40 09/26/19 17:00 74 18 136/58 (84) 100 09/26/19 16:30 72 20 136/58 (84) 100 09/26/19 16:00 40 09/26/19 16:00 98.2 73 16 134/58 (83) 100 09/26/19 16:00 Mechanical Ventilator 09/26/19 15:41 71 09/26/19 15:08 74 18 40 09/26/19 15:00 76 19 135/56 (82) 100 09/26/19 14:00 78 18 131/59 (83) 99 09/26/19 13:04 83 24 40 09/26/19 13:00 78 16 134/54 (80) 99 09/26/19 12:00 40 09/26/19 12:00 Mechanical Ventilator 09/26/19 12:00 98.4 74 16 123/52 (75) 100 09/26/19 11:58 73 09/26/19 11:00 79 19 126/51 (76) 100 09/26/19 11:00 76 18 40 09/26/19 10:00 75 16 125/52 (76) 100 Intake and Output 09/26/19 09/27/19 19:00 07:00 Intake Total 1120 ml 1280 ml Output Total 485 ml 420 ml Balance 635 ml 860 ml Intake Free Water 60 ml 70 ml IV Total 550 ml 500 ml Tube Feeding 480 ml 710 ml Other 30 ml Output Urine Total 485 ml 420 ml Current Medications Medications (Trade) Dose Ordered Sig/Kike Route PRN Reason Start Time Stop Time Status Last Admin Dose Admin Acetaminophen (Tylenol) 650 mg Q4H PRN ORAL fever 09/24/19 03:00 10/07/19 02:54 Albuterol/ Ipratropium (Albuterol/ Ipratropium) 3 ml Q4HRT PRN HHN sob 09/24/19 08:45 09/29/19 08:44 Amlodipine Besylate (Norvasc) 5 mg BID@0900,2100 NG 09/24/19 21:00 10/22/19 08:59 09/27/19 08:38 Heparin Sodium (Porcine) (Heparin 5000 units/ml) 5,000 units EVERY 12 HOURS SUBQ 09/24/19 09:00 10/22/19 08:59 09/27/19 08:38 Levothyroxine Sodium (Synthroid) 75 mcg DAILY@0630 ORAL 09/24/19 06:30 10/07/19 08:29 09/27/19 06:13 Mirtazapine (Remeron) 7.5 mg BEDTIME ORAL 09/24/19 21:00 12/06/19 20:59 09/26/19 21:40 Nitroglycerin (Ntg) 0.4 mg Q5M PRN SL Prn Chest Pain 09/24/19 02:30 10/07/19 04:29 Ondansetron HCl (Zofran) 4 mg Q6H PRN IVP Nausea & Vomiting 09/24/19 03:00 10/07/19 02:57 Pantoprazole (Protonix) 40 mg Q12HR IVP 09/24/19 09:00 10/10/19 08:59 09/27/19 08:37 Polyethylene Glycol (Miralax) 17 gm DAILYPRN PRN ORAL Constipation 09/24/19 03:00 10/07/19 02:57 Promethazine HCl/ Codeine (Phenergan with Codeine) 5 ml Q4H PRN ORAL For Cough 09/24/19 03:00 10/07/19 02:58 Quetiapine Fumarate (SEROqueL) 25 mg Q8H PRN NG Agitation 09/24/19 02:35 10/30/19 02:34 Laboratory Tests 09/26/19 10:20: Arterial Blood pH 7.498H, Arterial Blood Partial Pressure CO2 35.1, Arterial Blood Partial Pressure O2 204.3H, Arterial Blood HCO3 26.6H, Arterial Blood Oxygen Saturation 98.7, Arterial Blood Base Excess 3.4H, Watson Test Positive 09/27/19 04:15: White Blood Count 9.3, Red Blood Count 3.19L, Hemoglobin 8.6L, Hematocrit 26.4L , Mean Corpuscular Volume 83, Mean Corpuscular Hemoglobin 27.0, Mean Corpuscular Hemoglobin Concent 32.7, Red Cell Distribution Width 17.9H, Platelet Count 580H, Mean Platelet Volume 5.6L, Neutrophils (%) (Auto) 64.9, Lymphocytes (%) (Auto) 18.8L, Monocytes (%) (Auto) 12.5H, Eosinophils (%) (Auto ) 2.5, Basophils (%) (Auto) 1.3, Sodium Level 138, Potassium Level 4.5, Chloride Level 104, Carbon Dioxide Level 25, Anion Gap 9, Blood Urea Nitrogen 23H, Creatinine 1.2, Estimat Glomerular Filtration Rate > 60, Glucose Level 136H , Calcium Level 8.4L, Phosphorus Level 3.3, Magnesium Level 2.0, Total Bilirubin 0.3, Aspartate Amino Transf (AST/SGOT) 72H, Alanine Aminotransferase ( ALT/SGPT) 49, Alkaline Phosphatase 148H, C-Reactive Protein, Quantitative 15.6H , Pro-B-Type Natriuretic Peptide 354H, Total Protein 6.6, Albumin 1.8L, Globulin 4.8, Albumin/Globulin Ratio 0.4L 09/27/19 08:57: Arterial Blood pH 7.491H, Arterial Blood Partial Pressure CO2 34.4L, Arterial Blood Partial Pressure O2 65.1L, Arterial Blood HCO3 25.7, Arterial Blood Oxygen Saturation 92.6L, Arterial Blood Base Excess 2.4H, Watson Test Positive Height (Feet): 5 Height (Inches): 11.00 Weight (Pounds): 180 General Appearance: no apparent distress EENT: other - Remains intubated on ventilator Cardiovascular: normal rate Respiratory/Chest: decreased breath sounds Objective no change Clovis Benites MD Sep 27, 2019 09:46
--- NOTE | 2019-09-27 10:30 | Infectious Diseases Prog Note ---
Assessment/Plan Assessment/Plan 09/23 SP asystole cardiac arrest VDRF 09/23 Afebrile No leukocytosis PNA VDRF, sp intubation 09/08, sp extubation 09/18, now on NC SARS-CoV neg x2 MRSA screen pos sp cx: PSA (hensley S) and proteus (hensley S) 09/24 CXR: Moderate size right pleural effusion with right upper and lower lobe atelectasis/consolidation, as well as mild pulmonary edema.. 09/17 CXR: Similar bilateral interstitial prominence, greater on the right.Stable right perihilar, mid and lower lung opacities. Similar left lung base opacity. Small left pleural effusion is stable. Loculated right pleural effusion is stable. No pneumothorax. CXR: Right pleural effusion, also demonstrated on prior 08/09/2019 exam, slightly increased. Hazy right lung parenchymal opacity probably represents a superimposed pleural fluid but infiltrate also possible. R pleural effusion, exudative -09/18 SP thorancetesis; removal of 2050 mL fluid; Fluid prot 5 (serum prot 7.2 ); cx Neg QTc 419 RAMAN, improving DM HTN CVA Dementia Nonverbal G tube Plan: monitor off abx 09/19 SPcefepime # 14/14 09/09 SP vanc #4 ( Cr increased) ICU care monitor temp and CBC DC COVID isolation isolation precaution per hospital protocol surveillance sp cx DW RN Thank you for this consult. [facility] will continue to follow the patient with you. Subjective Allergies: Coded Allergies: PENICILLINS (Verified Allergy, Unknown, 10/27/18) tolretas cephalosporins Subjective afebrile no leukocytosis off abx Objective Vital Signs Last 24 Hour Vital Signs Date Time Temp Pulse Resp B/P (MAP) Pulse Ox O2 Delivery O2 Flow Rate FiO2 09/27/19 08:50 78 21 40 09/27/19 08:38 76 154/60 09/27/19 08:00 Mechanical Ventilator 09/27/19 07:13 76 19 40 09/27/19 06:00 99.0 87 22 158/60 (92) 100 09/27/19 05:00 73 20 150/63 (92) 100 09/27/19 04:48 80 21 40 09/27/19 04:00 40 09/27/19 04:00 Mechanical Ventilator 09/27/19 04:00 74 09/27/19 04:00 70 17 134/63 (86) 100 09/27/19 03:05 76 19 40 09/27/19 03:00 69 18 141/55 (83) 100 09/27/19 02:00 69 16 133/56 (81) 99 09/27/19 01:00 71 17 129/55 (79) 100 09/27/19 00:20 70 17 128/104 (112) 100 09/27/19 00:00 72 09/27/19 00:00 Mechanical Ventilator 09/27/19 00:00 66 21 128/59 (82) 100 09/27/19 00:00 40 09/26/19 23:00 67 23 131/49 (76) 100 09/26/19 22:54 85 22 40 09/26/19 22:00 68 19 125/49 (74) 100 09/26/19 21:41 66 121/45 09/26/19 21:00 67 18 129/47 (74) 100 09/26/19 20:00 40 09/26/19 20:00 Mechanical Ventilator 09/26/19 20:00 68 09/26/19 20:00 99.5 70 15 119/51 (73) 100 09/26/19 19:18 77 20 40 09/26/19 19:00 71 19 128/51 (76) 100 09/26/19 18:00 71 17 124/52 (76) 100 09/26/19 17:08 73 22 40 09/26/19 17:00 74 18 136/58 (84) 100 09/26/19 16:30 72 20 136/58 (84) 100 09/26/19 16:00 40 09/26/19 16:00 98.2 73 16 134/58 (83) 100 09/26/19 16:00 Mechanical Ventilator 09/26/19 15:41 71 09/26/19 15:08 74 18 40 09/26/19 15:00 76 19 135/56 (82) 100 09/26/19 14:00 78 18 131/59 (83) 99 09/26/19 13:04 83 24 40 09/26/19 13:00 78 16 134/54 (80) 99 09/26/19 12:00 40 09/26/19 12:00 Mechanical Ventilator 09/26/19 12:00 98.4 74 16 123/52 (75) 100 4/20/20 11:58 73 09/26/19 11:00 79 19 126/51 (76) 100 09/26/19 11:00 76 18 40 Height (Feet): 5 Height (Inches): 11.00 Weight (Pounds): 180 Objective Gen: NAD. well nourished HEENT: ETT. oral secretions Resp: coarse. equal chest rise. regular rate and rhythm. Abd: Soft. no TTP. nondistended. G tube site c/d/i. Neuro: opens eyes to voice and follows simple commands Laboratory Tests Test 09/27/19 04:15 09/27/19 08:57 White Blood Count 9.3 K/UL (4.8-10.8) Red Blood Count 3.19 M/UL (4.70-6.10) L Hemoglobin 8.6 G/DL (14.2-18.0) L Hematocrit 26.4 % (42.0-52.0) L Mean Corpuscular Volume 83 FL (80-99) Mean Corpuscular Hemoglobin 27.0 PG (27.0-31.0) Mean Corpuscular Hemoglobin Concent 32.7 G/DL (32.0-36.0) Red Cell Distribution Width 17.9 % (11.6-14.8) H Platelet Count 580 K/UL (150-450) H Mean Platelet Volume 5.6 FL (6.5-10.1) L Neutrophils (%) (Auto) 64.9 % (45.0-75.0) Lymphocytes (%) (Auto) 18.8 % (20.0-45.0) L Monocytes (%) (Auto) 12.5 % (1.0-10.0) H Eosinophils (%) (Auto) 2.5 % (0.0-3.0) Basophils (%) (Auto) 1.3 % (0.0-2.0) Sodium Level 138 MMOL/L (136-145) Potassium Level 4.5 MMOL/L (3.5-5.1) Chloride Level 104 MMOL/L (98-107) Carbon Dioxide Level 25 MMOL/L (21-32) Anion Gap 9 mmol/L (5-15) Blood Urea Nitrogen 23 mg/dL (7-18) H Creatinine 1.2 MG/DL (0.55-1.30) Estimat Glomerular Filtration Rate > 60 mL/min (>60) Glucose Level 136 MG/DL (74-106) H Calcium Level 8.4 MG/DL (8.5-10.1) L Phosphorus Level 3.3 MG/DL (2.5-4.9) Magnesium Level 2.0 MG/DL (1.8-2.4) Total Bilirubin 0.3 MG/DL (0.2-1.0) Aspartate Amino Transf (AST/SGOT) 72 U/L (15-37) H Alanine Aminotransferase (ALT/SGPT) 49 U/L (12-78) Alkaline Phosphatase 148 U/L (46-116) H C-Reactive Protein, Quantitative 15.6 mg/dL (0.00-0.90) H Pro-B-Type Natriuretic Peptide 354 pg/mL (0-125) H Total Protein 6.6 G/DL (6.4-8.2) Albumin 1.8 G/DL (3.4-5.0) L Globulin 4.8 g/dL Albumin/Globulin Ratio 0.4 (1.0-2.7) L Thyroid Stimulating Hormone (TSH) Pending Arterial Blood pH 7.491 (7.350-7.450) Arterial Blood Partial Pressure CO2 34.4 mmHg (35.0-45.0) L Arterial Blood Partial Pressure O2 65.1 mmHg (75.0-100.0) L Arterial Blood HCO3 25.7 mmol/L (22.0-26.0) Arterial Blood Oxygen Saturation 92.6 % (95-100) L Arterial Blood Base Excess 2.4 (-2-2) H Watson Test Positive Current Medications Medications (Trade) Dose Ordered Sig/Kike Route PRN Reason Start Time Stop Time Status Last Admin Dose Admin Acetaminophen (Tylenol) 650 mg Q4H PRN ORAL fever 09/24/19 03:00 10/07/19 02:54 Albuterol/ Ipratropium (Albuterol/ Ipratropium) 3 ml Q4HRT PRN HHN sob 09/24/19 08:45 09/29/19 08:44 Amlodipine Besylate (Norvasc) 5 mg BID@0900,2100 NG 09/24/19 21:00 10/22/19 08:59 09/27/19 08:38 Heparin Sodium (Porcine) (Heparin 5000 units/ml) 5,000 units EVERY 12 HOURS SUBQ 09/24/19 09:00 10/22/19 08:59 09/27/19 08:38 Levothyroxine Sodium (Synthroid) 75 mcg DAILY@0630 ORAL 09/24/19 06:30 10/07/19 08:29 09/27/19 06:13 Mirtazapine (Remeron) 7.5 mg BEDTIME ORAL 09/24/19 21:00 12/06/19 20:59 09/26/19 21:40 Nitroglycerin (Ntg) 0.4 mg Q5M PRN SL Prn Chest Pain 09/24/19 02:30 10/07/19 04:29 Ondansetron HCl (Zofran) 4 mg Q6H PRN IVP Nausea & Vomiting 09/24/19 03:00 10/07/19 02:57 Pantoprazole (Protonix) 40 mg Q12HR IVP 09/24/19 09:00 10/10/19 08:59 09/27/19 08:37 Polyethylene Glycol (Miralax) 17 gm DAILYPRN PRN ORAL Constipation 09/24/19 03:00 10/07/19 02:57 Promethazine HCl/ Codeine (Phenergan with Codeine) 5 ml Q4H PRN ORAL For Cough 09/24/19 03:00 10/07/19 02:58 Quetiapine Fumarate (SEROqueL) 25 mg Q8H PRN NG Agitation 09/24/19 02:35 10/30/19 02:34 Danielle Roach M.D. Sep 27, 2019 10:30
--- NOTE | 2019-09-27 10:34 | General Progress Note ---
Assessment/Plan Assessment/Plan: 1. Esophageal cancer. 2. Dysphagia. 3. Diabetes type 2. 4. Dementia. 5. CVA. 6. Hypothyroidism. 7. Seizure disorder. 8. Iron deficiency anemia. 9. Respiratory failure. 10. Dysphagia with G-tube anemia work up GT has been changed and working well will fu Subjective ROS Limited/Unobtainable: No Allergies: Coded Allergies: PENICILLINS (Verified Allergy, Unknown, 10/27/18) tolretas cephalosporins Objective Last 24 Hour Vital Signs Date Time Temp Pulse Resp B/P (MAP) Pulse Ox O2 Delivery O2 Flow Rate FiO2 09/27/19 10:30 73 15 40 09/27/19 08:50 78 21 40 09/27/19 08:38 76 154/60 09/27/19 08:00 Mechanical Ventilator 09/27/19 07:13 76 19 40 09/27/19 06:00 99.0 87 22 158/60 (92) 100 09/27/19 05:00 73 20 150/63 (92) 100 09/27/19 04:48 80 21 40 09/27/19 04:00 40 09/27/19 04:00 Mechanical Ventilator 09/27/19 04:00 74 09/27/19 04:00 70 17 134/63 (86) 100 09/27/19 03:05 76 19 40 09/27/19 03:00 69 18 141/55 (83) 100 09/27/19 02:00 69 16 133/56 (81) 99 09/27/19 01:00 71 17 129/55 (79) 100 09/27/19 00:20 70 17 128/104 (112) 100 09/27/19 00:00 72 09/27/19 00:00 Mechanical Ventilator 09/27/19 00:00 66 21 128/59 (82) 100 09/27/19 00:00 40 09/26/19 23:00 67 23 131/49 (76) 100 09/26/19 22:54 85 22 40 09/26/19 22:00 68 19 125/49 (74) 100 09/26/19 21:41 66 121/45 09/26/19 21:00 67 18 129/47 (74) 100 09/26/19 20:00 40 09/26/19 20:00 Mechanical Ventilator 09/26/19 20:00 68 09/26/19 20:00 99.5 70 15 119/51 (73) 100 09/26/19 19:18 77 20 40 09/26/19 19:00 71 19 128/51 (76) 100 09/26/19 18:00 71 17 124/52 (76) 100 09/26/19 17:08 73 22 40 09/26/19 17:00 74 18 136/58 (84) 100 09/26/19 16:30 72 20 136/58 (84) 100 09/26/19 16:00 40 09/26/19 16:00 98.2 73 16 134/58 (83) 100 09/26/19 16:00 Mechanical Ventilator 09/26/19 15:41 71 09/26/19 15:08 74 18 40 09/26/19 15:00 76 19 135/56 (82) 100 09/26/19 14:00 78 18 131/59 (83) 99 09/26/19 13:04 83 24 40 09/26/19 13:00 78 16 134/54 (80) 99 09/26/19 12:00 40 09/26/19 12:00 Mechanical Ventilator 09/26/19 12:00 98.4 74 16 123/52 (75) 100 09/26/19 11:58 73 09/26/19 11:00 79 19 126/51 (76) 100 09/26/19 11:00 76 18 40 Intake and Output 09/26/19 09/27/19 19:00 07:00 Intake Total 1120 ml 1280 ml Output Total 485 ml 420 ml Balance 635 ml 860 ml Intake Free Water 60 ml 70 ml IV Total 550 ml 500 ml Tube Feeding 480 ml 710 ml Other 30 ml Output Urine Total 485 ml 420 ml Laboratory Tests 09/27/19 04:15: White Blood Count 9.3, Red Blood Count 3.19L, Hemoglobin 8.6L, Hematocrit 26.4L , Mean Corpuscular Volume 83, Mean Corpuscular Hemoglobin 27.0, Mean Corpuscular Hemoglobin Concent 32.7, Red Cell Distribution Width 17.9H, Platelet Count 580H, Mean Platelet Volume 5.6L, Neutrophils (%) (Auto) 64.9, Lymphocytes (%) (Auto) 18.8L, Monocytes (%) (Auto) 12.5H, Eosinophils (%) (Auto ) 2.5, Basophils (%) (Auto) 1.3, Sodium Level 138, Potassium Level 4.5, Chloride Level 104, Carbon Dioxide Level 25, Anion Gap 9, Blood Urea Nitrogen 23H, Creatinine 1.2, Estimat Glomerular Filtration Rate > 60, Glucose Level 136H , Calcium Level 8.4L, Phosphorus Level 3.3, Magnesium Level 2.0, Total Bilirubin 0.3, Aspartate Amino Transf (AST/SGOT) 72H, Alanine Aminotransferase ( ALT/SGPT) 49, Alkaline Phosphatase 148H, C-Reactive Protein, Quantitative 15.6H , Pro-B-Type Natriuretic Peptide 354H, Total Protein 6.6, Albumin 1.8L, Globulin 4.8, Albumin/Globulin Ratio 0.4L, Thyroid Stimulating Hormone (TSH) [ Pending] 09/27/19 08:57: Arterial Blood pH 7.491H, Arterial Blood Partial Pressure CO2 34.4L, Arterial Blood Partial Pressure O2 65.1L, Arterial Blood HCO3 25.7, Arterial Blood Oxygen Saturation 92.6L, Arterial Blood Base Excess 2.4H, Watson Test Positive Height (Feet): 5 Height (Inches): 11.00 Weight (Pounds): 180 General Appearance: no apparent distress EENT: normal ENT inspection Neck: supple Cardiovascular: normal rate Respiratory/Chest: decreased breath sounds Abdomen: normal bowel sounds, non tender, soft Extremities: non-tender Darrick Rosario MD Sep 27, 2019 10:34
--- NOTE | 2019-09-27 11:47 | Pulmonolgy Critical Care Note ---
Critical Care - Asmt/Plan Problems: (1) Acute respiratory failure Assessment & Plan: got reintubated (2) Pleural effusion (3) Suspected COVID-19 virus infection (4) Nosocomial pneumonia (5) Sepsis (6) Squamous cell esophageal cancer (7) Diabetes mellitus (8) At high risk for aspiration (9) Severe malnutrition (10) Alzheimer's dementia (11) History of CVA (cerebrovascular accident) (12) Feeding by G-tube Respiratory: monitor respiratory rate, adjust FIO2, CXR Cardiac: continue pressors, continue to monitor HR/BP Infectious Disease: check cultures Gastrointestinal: continue feedings/current rate Endocrine: monitor blood sugar, continue sliding scale insulin Hematologic: monitor H/H, transfuse if hgb<8.5 Neurologic: PRN Ativan, keep patient comfortable Disposition: keep in ICU Notes Reviewed: cardio Discussed with: nurses, consultants, casework specialistscrum project manager - Objective Last 24 Hour Vital Signs Date Time Temp Pulse Resp B/P (MAP) Pulse Ox O2 Delivery O2 Flow Rate FiO2 09/27/19 10:30 73 15 40 09/27/19 10:00 74 18 138/62 (87) 100 09/27/19 09:00 78 21 157/60 (92) 100 09/27/19 08:50 78 21 40 09/27/19 08:38 76 154/60 09/27/19 08:00 98.6 76 18 148/61 (90) 100 09/27/19 08:00 Mechanical Ventilator 09/27/19 08:00 40 09/27/19 07:13 76 19 40 09/27/19 07:00 76 21 150/67 (94) 100 09/27/19 06:00 99.0 87 22 158/60 (92) 100 09/27/19 05:00 73 20 150/63 (92) 100 09/27/19 04:48 80 21 40 09/27/19 04:00 40 09/27/19 04:00 Mechanical Ventilator 09/27/19 04:00 74 09/27/19 04:00 70 17 134/63 (86) 100 09/27/19 03:05 76 19 40 09/27/19 03:00 69 18 141/55 (83) 100 09/27/19 02:00 69 16 133/56 (81) 99 09/27/19 01:00 71 17 129/55 (79) 100 09/27/19 00:20 70 17 128/104 (112) 100 09/27/19 00:00 72 09/27/19 00:00 Mechanical Ventilator 09/27/19 00:00 66 21 128/59 (82) 100 09/27/19 00:00 40 09/26/19 23:00 67 23 131/49 (76) 100 09/26/19 22:54 85 22 40 09/26/19 22:00 68 19 125/49 (74) 100 09/26/19 21:41 66 121/45 09/26/19 21:00 67 18 129/47 (74) 100 09/26/19 20:00 40 09/26/19 20:00 Mechanical Ventilator 09/26/19 20:00 68 09/26/19 20:00 99.5 70 15 119/51 (73) 100 09/26/19 19:18 77 20 40 09/26/19 19:00 71 19 128/51 (76) 100 09/26/19 18:00 71 17 124/52 (76) 100 09/26/19 17:08 73 22 40 09/26/19 17:00 74 18 136/58 (84) 100 09/26/19 16:30 72 20 136/58 (84) 100 09/26/19 16:00 40 09/26/19 16:00 98.2 73 16 134/58 (83) 100 09/26/19 16:00 Mechanical Ventilator 09/26/19 15:41 71 09/26/19 15:08 74 18 40 09/26/19 15:00 76 19 135/56 (82) 100 09/26/19 14:00 78 18 131/59 (83) 99 09/26/19 13:04 83 24 40 09/26/19 13:00 78 16 134/54 (80) 99 09/26/19 12:00 40 09/26/19 12:00 Mechanical Ventilator 09/26/19 12:00 98.4 74 16 123/52 (75) 100 09/26/19 11:58 73 Status: sedated Condition: critical HEENT: atraumatic Neck: full ROM Lungs: rhonchi Heart: HR/BP stable Abdomen: soft Extremities: no C/C/E Critical Care - Subjective FI02: 40 Vent Support Breath Rate: 12 Vent Support Mode: AC Vent Tidal Volume: 550 Sputum Amount: Small PEEP: 5.0 PIP: 29 Tube Feeding Amount: 60 I&O: Intake and Output 09/26/19 09/27/19 19:00 07:00 Intake Total 1120 ml 1330 ml Output Total 485 ml 420 ml Balance 635 ml 910 ml Intake Free Water 60 ml 70 ml IV Total 550 ml 550 ml Tube Feeding 480 ml 710 ml Other 30 ml Output Urine Total 485 ml 420 ml CXR: no change ET-Tube: 7.5 ET Position: 26 Labs: Laboratory Tests Test 09/27/19 04:15 09/27/19 08:57 White Blood Count 9.3 K/UL (4.8-10.8) Red Blood Count 3.19 M/UL (4.70-6.10) L Hemoglobin 8.6 G/DL (14.2-18.0) L Hematocrit 26.4 % (42.0-52.0) L Mean Corpuscular Volume 83 FL (80-99) Mean Corpuscular Hemoglobin 27.0 PG (27.0-31.0) Mean Corpuscular Hemoglobin Concent 32.7 G/DL (32.0-36.0) Red Cell Distribution Width 17.9 % (11.6-14.8) H Platelet Count 580 K/UL (150-450) H Mean Platelet Volume 5.6 FL (6.5-10.1) L Neutrophils (%) (Auto) 64.9 % (45.0-75.0) Lymphocytes (%) (Auto) 18.8 % (20.0-45.0) L Monocytes (%) (Auto) 12.5 % (1.0-10.0) H Eosinophils (%) (Auto) 2.5 % (0.0-3.0) Basophils (%) (Auto) 1.3 % (0.0-2.0) Sodium Level 138 MMOL/L (136-145) Potassium Level 4.5 MMOL/L (3.5-5.1) Chloride Level 104 MMOL/L (98-107) Carbon Dioxide Level 25 MMOL/L (21-32) Anion Gap 9 mmol/L (5-15) Blood Urea Nitrogen 23 mg/dL (7-18) H Creatinine 1.2 MG/DL (0.55-1.30) Estimat Glomerular Filtration Rate > 60 mL/min (>60) Glucose Level 136 MG/DL (74-106) H Calcium Level 8.4 MG/DL (8.5-10.1) L Phosphorus Level 3.3 MG/DL (2.5-4.9) Magnesium Level 2.0 MG/DL (1.8-2.4) Total Bilirubin 0.3 MG/DL (0.2-1.0) Aspartate Amino Transf (AST/SGOT) 72 U/L (15-37) H Alanine Aminotransferase (ALT/SGPT) 49 U/L (12-78) Alkaline Phosphatase 148 U/L (46-116) H C-Reactive Protein, Quantitative 15.6 mg/dL (0.00-0.90) H Pro-B-Type Natriuretic Peptide 354 pg/mL (0-125) H Total Protein 6.6 G/DL (6.4-8.2) Albumin 1.8 G/DL (3.4-5.0) L Globulin 4.8 g/dL Albumin/Globulin Ratio 0.4 (1.0-2.7) L Thyroid Stimulating Hormone (TSH) 7.116 uiU/mL (0.358-3.740) Arterial Blood pH 7.491 (7.350-7.450) Arterial Blood Partial Pressure CO2 34.4 mmHg (35.0-45.0) L Arterial Blood Partial Pressure O2 65.1 mmHg (75.0-100.0) L Arterial Blood HCO3 25.7 mmol/L (22.0-26.0) Arterial Blood Oxygen Saturation 92.6 % (95-100) L Arterial Blood Base Excess 2.4 (-2-2) H Watson Test Positive Vania Hui MD Sep 27, 2019 11:47
--- NOTE | 2019-09-27 14:02 | Diagnostic Imaging Report ---
Indication: Dyspnea Technique: One view of the chest Comparison: 09/26/2019 Findings: Patient is rotated to the right. Satisfactory position of endotracheal tube. Large right pleural effusion is again demonstrated. Small left pleural effusion is again demonstrated. Left lung is otherwise clear. The heart size is normal. Impression: Unchanged, over one day, findings as above.
--- NOTE | 2019-09-27 17:30 | Internal Med Progress Note ---
Subjective Date of Service: Sep 27, 2019 Physician Name BahXander Attending Physician Lamont Hayes MD Current Medications Medications (Trade) Dose Ordered Sig/Kike Route PRN Reason Start Time Stop Time Status Last Admin Dose Admin Acetaminophen (Tylenol) 650 mg Q4H PRN ORAL fever 09/24/19 03:00 10/07/19 02:54 Albuterol/ Ipratropium (Albuterol/ Ipratropium) 3 ml Q4HRT PRN HHN sob 09/24/19 08:45 09/29/19 08:44 Amlodipine Besylate (Norvasc) 5 mg BID@0900,2100 NG 09/24/19 21:00 10/22/19 08:59 09/27/19 08:38 Heparin Sodium (Porcine) (Heparin 5000 units/ml) 5,000 units EVERY 12 HOURS SUBQ 09/24/19 09:00 10/22/19 08:59 09/27/19 08:38 Levothyroxine Sodium (Synthroid) 75 mcg DAILY@0630 ORAL 09/24/19 06:30 10/07/19 08:29 09/27/19 06:13 Mirtazapine (Remeron) 7.5 mg BEDTIME ORAL 09/24/19 21:00 12/06/19 20:59 09/26/19 21:40 Nitroglycerin (Ntg) 0.4 mg Q5M PRN SL Prn Chest Pain 09/24/19 02:30 10/07/19 04:29 Ondansetron HCl (Zofran) 4 mg Q6H PRN IVP Nausea & Vomiting 09/24/19 03:00 10/07/19 02:57 Pantoprazole (Protonix) 40 mg Q12HR IVP 09/24/19 09:00 10/10/19 08:59 09/27/19 08:37 Polyethylene Glycol (Miralax) 17 gm DAILYPRN PRN ORAL Constipation 09/24/19 03:00 10/07/19 02:57 Promethazine HCl/ Codeine (Phenergan with Codeine) 5 ml Q4H PRN ORAL For Cough 09/24/19 03:00 10/07/19 02:58 Quetiapine Fumarate (SEROqueL) 25 mg Q8H PRN NG Agitation 09/24/19 02:35 10/30/19 02:34 Allergies: Coded Allergies: PENICILLINS (Verified Allergy, Unknown, 10/27/18) tolretas cephalosporins ROS Limited/Unobtainable: Yes Subjective 84 YO M admitted with cough and congestion. Cover for Int Med-Dr Hayes. Reintubated 09/24/19 after cardiopulmonary arrest-see code blue note. ICU Objective Last Vital Signs Date Time Temp Pulse Resp B/P (MAP) Pulse Ox O2 Delivery O2 Flow Rate FiO2 09/27/19 17:00 74 18 141/64 (89) 100 09/27/19 16:00 40 09/27/19 16:00 98.5 09/27/19 16:00 Mechanical Ventilator 09/23/19 21:00 3.0 Laboratory Tests Test 09/27/19 04:15 09/27/19 08:57 09/27/19 12:40 White Blood Count 9.3 K/UL (4.8-10.8) Red Blood Count 3.19 M/UL (4.70-6.10) L Hemoglobin 8.6 G/DL (14.2-18.0) L Hematocrit 26.4 % (42.0-52.0) L Mean Corpuscular Volume 83 FL (80-99) Mean Corpuscular Hemoglobin 27.0 PG (27.0-31.0) Mean Corpuscular Hemoglobin Concent 32.7 G/DL (32.0-36.0) Red Cell Distribution Width 17.9 % (11.6-14.8) H Platelet Count 580 K/UL (150-450) H Mean Platelet Volume 5.6 FL (6.5-10.1) L Neutrophils (%) (Auto) 64.9 % (45.0-75.0) Lymphocytes (%) (Auto) 18.8 % (20.0-45.0) L Monocytes (%) (Auto) 12.5 % (1.0-10.0) H Eosinophils (%) (Auto) 2.5 % (0.0-3.0) Basophils (%) (Auto) 1.3 % (0.0-2.0) Sodium Level 138 MMOL/L (136-145) Potassium Level 4.5 MMOL/L (3.5-5.1) Chloride Level 104 MMOL/L (98-107) Carbon Dioxide Level 25 MMOL/L (21-32) Anion Gap 9 mmol/L (5-15) Blood Urea Nitrogen 23 mg/dL (7-18) H Creatinine 1.2 MG/DL (0.55-1.30) Estimat Glomerular Filtration Rate > 60 mL/min (>60) Glucose Level 136 MG/DL (74-106) H Calcium Level 8.4 MG/DL (8.5-10.1) L Phosphorus Level 3.3 MG/DL (2.5-4.9) Magnesium Level 2.0 MG/DL (1.8-2.4) Total Bilirubin 0.3 MG/DL (0.2-1.0) Aspartate Amino Transf (AST/SGOT) 72 U/L (15-37) H Alanine Aminotransferase (ALT/SGPT) 49 U/L (12-78) Alkaline Phosphatase 148 U/L (46-116) H C-Reactive Protein, Quantitative 15.6 mg/dL (0.00-0.90) H Pro-B-Type Natriuretic Peptide 354 pg/mL (0-125) H Total Protein 6.6 G/DL (6.4-8.2) Albumin 1.8 G/DL (3.4-5.0) L Globulin 4.8 g/dL Albumin/Globulin Ratio 0.4 (1.0-2.7) L Thyroid Stimulating Hormone (TSH) 7.116 uiU/mL (0.358-3.740) Arterial Blood pH 7.491 (7.350-7.450) Arterial Blood Partial Pressure CO2 34.4 mmHg (35.0-45.0) L Arterial Blood Partial Pressure O2 65.1 mmHg (75.0-100.0) L Arterial Blood HCO3 25.7 mmol/L (22.0-26.0) Arterial Blood Oxygen Saturation 92.6 % (95-100) L Arterial Blood Base Excess 2.4 (-2-2) H Watson Test Positive Prothrombin Time 10.9 SEC (9.30-11.50) Prothromb Time International Ratio 1.0 (0.9-1.1) Activated Partial Thromboplast Time 28 SEC (23-33) Intake and Output 09/26/19 09/27/19 19:00 07:00 Intake Total 1120 ml 1390 ml Output Total 485 ml 440 ml Balance 635 ml 950 ml Intake Free Water 60 ml 70 ml IV Total 550 ml 550 ml Tube Feeding 480 ml 770 ml Other 30 ml Output Urine Total 485 ml 440 ml Objective PHYSICAL EXAMINATION: GENERAL: The patient is a thin-appearing male, in no apparent distress. HEENT: Eyes, pupils are equal and responsive to light and accommodation. Extraocular movements are intact. NECK: Supple without lymphadenopathy. CHEST: Mech vent; Lungs are clear to auscultation bilaterally with decreased breath sounds on the right. There are no wheezes appreciated. ABDOMEN: Soft, nontender, and nondistended. Positive bowel sounds. No evidence of hepatosplenomegaly. Currently, no rebound or guarding noted. EXTREMITIES: Negative for clubbing, cyanosis, or edema. RECTAL/GENITAL: Not performed. NEUROLOGIC: Cranial nerves II through XII are grossly intact without focal deficits. Assessment/Plan Assessment/Plan ASSESSMENT: This is an 84-year-old male with: 1. Possible right pneumonia=pseudamonas 2. Urinary tract infection=jennifer 3. Right pleural effusion. 4. Esophageal mass. 5. Dysphagia. 6. Diabetes. 7. Alzheimer's dementia. 8. Cerebrovascular disease. 9. Hypothyroidism. 10. Seizure disorder. 11. Iron deficiency anemia. 13. Respiratory failure 14. S/P cardiopulmonary arrest TREATMENT: 1. Right perihilar Pneumonia/pleural effusion. COVID 19 and Influenza negative. A Pulmonary consultation has been obtained with Dr. Vania Hui. S/P right thoracentesis 09/19/19. We will follow recommendation of Pulmonary. ID=Dr Roach ABX= S/P cefepime 2. Urinary tract infection. . A urine culture =jennifer 3. Right pleural effusion. As above, a Pulmonary consultation has been obtained with Dr. Vania Hui. The patient may require thoracentesis during this hospitalization. 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 A Gastroenterology consultation has been obtained with Dr. Darrick Rosario. 5. Dysphagia. The patient is status post PEG placement on 08/08/2019 at [facility] by Dr. Darrick Rosario. 6. Diabetes type 2. A NovoLog sliding scale has been instituted. 7. Alzheimer's dementia. 8. Cerebrovascular disease, status post cerebrovascular accident. 9. Hypothyroidism. Continue levothyroxine as above. 10. Seizure disorder. 11. Iron deficiency anemia. 12. reintubated 09/24/19-see code blue note Xander Bah MD Sep 27, 2019 17:30
--- NOTE | 2019-09-27 22:27 | Surgery Progress Note ---
Surgery Progress Note Subjective Additional Comments late entry no acute events ill appearing Objective Last 24 Hour Vital Signs Date Time Temp Pulse Resp B/P (MAP) Pulse Ox O2 Delivery O2 Flow Rate FiO2 09/27/19 21:00 72 17 145/55 (85) 100 09/27/19 20:34 75 132/53 09/27/19 20:00 Mechanical Ventilator 09/27/19 20:00 40 09/27/19 20:00 71 09/27/19 20:00 71 16 132/53 (79) 100 71 09/27/19 19:00 76 19 151/52 (85) 100 09/27/19 18:00 75 18 135/52 (79) 100 09/27/19 17:00 74 18 141/64 (89) 100 09/27/19 16:00 40 09/27/19 16:00 98.5 71 19 142/47 (78) 100 09/27/19 16:00 Mechanical Ventilator 09/27/19 15:31 72 09/27/19 15:06 72 18 40 09/27/19 15:00 71 18 139/49 (79) 99 09/27/19 14:00 71 16 142/56 (84) 99 09/27/19 13:00 98.4 72 18 144/52 (82) 99 09/27/19 12:00 40 09/27/19 12:00 72 09/27/19 12:00 Mechanical Ventilator 09/27/19 12:00 73 16 142/58 (86) 99 09/27/19 11:00 75 16 152/55 (87) 100 09/27/19 10:30 73 15 40 09/27/19 10:00 40 09/27/19 10:00 74 18 138/62 (87) 100 09/27/19 09:00 78 21 157/60 (92) 100 09/27/19 08:50 78 21 40 09/27/19 08:38 76 154/60 09/27/19 08:00 98.6 76 18 148/61 (90) 100 09/27/19 08:00 Mechanical Ventilator 09/27/19 08:00 73 09/27/19 08:00 40 09/27/19 07:13 76 19 40 09/27/19 07:00 76 21 150/67 (94) 100 09/27/19 06:00 99.0 87 22 158/60 (92) 100 09/27/19 05:00 73 20 150/63 (92) 100 09/27/19 04:48 80 21 40 09/27/19 04:00 40 09/27/19 04:00 Mechanical Ventilator 09/27/19 04:00 74 09/27/19 04:00 70 17 134/63 (86) 100 09/27/19 03:05 76 19 40 09/27/19 03:00 69 18 141/55 (83) 100 09/27/19 02:00 69 16 133/56 (81) 99 09/27/19 01:00 71 17 129/55 (79) 100 09/27/19 00:20 70 17 128/104 (112) 100 09/27/19 00:00 72 09/27/19 00:00 Mechanical Ventilator 09/27/19 00:00 66 21 128/59 (82) 100 09/27/19 00:00 40 09/26/19 23:00 67 23 131/49 (76) 100 09/26/19 22:54 85 22 40 I&O Intake and Output 09/26/19 09/27/19 19:00 07:00 Intake Total 1120 ml 1390 ml Output Total 485 ml 440 ml Balance 635 ml 950 ml Intake Free Water 60 ml 70 ml IV Total 550 ml 550 ml Tube Feeding 480 ml 770 ml Other 30 ml Output Urine Total 485 ml 440 ml Dressing: other Wound: other Drains: other Cardiovascular: RSR Respiratory: decreased breath sounds Abdomen: soft, present bowel sounds Extremities: no cyanosis Laboratory Tests Test 09/27/19 04:15 09/27/19 08:57 09/27/19 12:40 White Blood Count 9.3 K/UL (4.8-10.8) Red Blood Count 3.19 M/UL (4.70-6.10) L Hemoglobin 8.6 G/DL (14.2-18.0) L Hematocrit 26.4 % (42.0-52.0) L Mean Corpuscular Volume 83 FL (80-99) Mean Corpuscular Hemoglobin 27.0 PG (27.0-31.0) Mean Corpuscular Hemoglobin Concent 32.7 G/DL (32.0-36.0) Red Cell Distribution Width 17.9 % (11.6-14.8) H Platelet Count 580 K/UL (150-450) H Mean Platelet Volume 5.6 FL (6.5-10.1) L Neutrophils (%) (Auto) 64.9 % (45.0-75.0) Lymphocytes (%) (Auto) 18.8 % (20.0-45.0) L Monocytes (%) (Auto) 12.5 % (1.0-10.0) H Eosinophils (%) (Auto) 2.5 % (0.0-3.0) Basophils (%) (Auto) 1.3 % (0.0-2.0) Sodium Level 138 MMOL/L (136-145) Potassium Level 4.5 MMOL/L (3.5-5.1) Chloride Level 104 MMOL/L (98-107) Carbon Dioxide Level 25 MMOL/L (21-32) Anion Gap 9 mmol/L (5-15) Blood Urea Nitrogen 23 mg/dL (7-18) H Creatinine 1.2 MG/DL (0.55-1.30) Estimat Glomerular Filtration Rate > 60 mL/min (>60) Glucose Level 136 MG/DL (74-106) H Calcium Level 8.4 MG/DL (8.5-10.1) L Phosphorus Level 3.3 MG/DL (2.5-4.9) Magnesium Level 2.0 MG/DL (1.8-2.4) Total Bilirubin 0.3 MG/DL (0.2-1.0) Aspartate Amino Transf (AST/SGOT) 72 U/L (15-37) H Alanine Aminotransferase (ALT/SGPT) 49 U/L (12-78) Alkaline Phosphatase 148 U/L (46-116) H C-Reactive Protein, Quantitative 15.6 mg/dL (0.00-0.90) H Pro-B-Type Natriuretic Peptide 354 pg/mL (0-125) H Total Protein 6.6 G/DL (6.4-8.2) Albumin 1.8 G/DL (3.4-5.0) L Globulin 4.8 g/dL Albumin/Globulin Ratio 0.4 (1.0-2.7) L Thyroid Stimulating Hormone (TSH) 7.116 uiU/mL (0.358-3.740) Arterial Blood pH 7.491 (7.350-7.450) Arterial Blood Partial Pressure CO2 34.4 mmHg (35.0-45.0) L Arterial Blood Partial Pressure O2 65.1 mmHg (75.0-100.0) L Arterial Blood HCO3 25.7 mmol/L (22.0-26.0) Arterial Blood Oxygen Saturation 92.6 % (95-100) L Arterial Blood Base Excess 2.4 (-2-2) H Watson Test Positive Prothrombin Time 10.9 SEC (9.30-11.50) Prothromb Time International Ratio 1.0 (0.9-1.1) Activated Partial Thromboplast Time 28 SEC (23-33) Plan Problems: (1) UTI (urinary tract infection) (2) Acute respiratory failure Assessment & Plan: There is infiltrate suspected in the right perihilar region obscuring the right hilum. There is a hazy opacity that may partially be accounted for by pleural fluid on the right. Reticular densities are present on the left in the perihilar aspect of the lung. Endotracheal tube is in good position just above the anselmo. Heart size is normal. IMPRESSION: Suspected perihilar airspace disease in the right lung suspicious for pneumonia. Reticular nodular infiltrate in the left lung noted also. Right pleural effusion suspected. Endotracheal tube in good position cont vents support Lungs: Similar bilateral interstitial prominence, greater on the right. Stable right perihilar, mid and lower lung opacities. Similar left lung base opacity. Pleural space: Small left pleural effusion is stable. Loculated right pleural effusion is stable. No pneumothorax. Heart: Unremarkable. No cardiomegaly. Mediastinum: Unremarkable. Bones/joints: Unremarkable. Tubes, lines and devices: Endotracheal tube has been pulled back and is 10 cm above the anselmo near the thoracic inlet. IMPRESSION: Endotracheal tube has been pulled back and is 10 cm above the anselmo near the thoracic inlet. Remainder findings are stable. may need thoracentesis soon Moderate size right pleural effusion with right upper and lower lobe atelectasis/consolidation, as well as mild pulmonary edema.. (3) Sepsis Assessment & Plan: Pt cachetic and presented on admission with multiple pressure injuries. Partial thickness pressure injury Cleft of L ear(L)1.2cm x (W)0.4cm. Base of wound moist and viable with small amt sanguineous exudate. Partial thickness pressure injury cleft of R ear(L)0.5cm x (W)0.7cm. Base of wound moist and viable Periwound erythematous.Small amt sanguineous exudate noted. Sacral DTPI(L)5cm x (W)10.5cm. Base of injury is purple with maroon borders. Coccygeal bony protrusion with darker skin tone, and small opening noted to R gluteus (L)0.5cm x (W)0.5cm within base of injury. No further skin breakdown periwound. Intact blood blister noted to R 1st metatarsal head(L)1.1cm x (W)2.5cm. DTPI noted to L heel extending into plantar aspect. Base of injury presents as an intact blood filled blister. Periwound is boggy with non-blanching erythema. R heel is boggy but blanchable. wounds unlikely etiology of sepsis respiratory but given current condition high risk for breakdown and worsening will monitor closely discussed with RN and staff great care being provided coded acls intubated in ICU prognosis guarded Tx.Plan: Apply Betadine to clefts of R and L ears. Pad oxygen tubing with gauze and keep oxygen tubing loose. Apply Moisture Barrier Paste to Sacrum. Cover with Optifoam drsg. Change every 3 days and prn. Apply Betadine to L heel. Cover with Optifoam drsg. Change every 3 days and prn. Apply Betadine to R 1st metatarsal head. Cover with Optifoam drsg. Change every 3 days and prn. Apply Cavilon Skin Barrier R heel. Cover with Optifoam drsg. Change every 7 days and prn. Reposition at least every 2hours or as tolerated. Off-load heels with pillow. on air mattress but not very comfortable appearing cont current care / pulm management (4) Severe anemia (5) Nosocomial pneumonia (6) Atrial fibrillation (7) Acute metabolic encephalopathy (8) History of CVA (cerebrovascular accident) (9) Diabetes mellitus (10) Hypothyroidism (11) Alzheimer's dementia (12) PVC (premature ventricular contraction) (13) Hypertension (14) Squamous cell esophageal cancer (15) Feeding by G-tube (16) Dehydration (17) Anemia (18) Severe malnutrition Assessment & Plan: DAILY ESTIMATED NEEDS: Needs based on underweight, suspected wt loss, wounds/ 63kg 25-33 kcals/kg 1059-9261 total kcals 1.25-2 g protein/kg 78-126 g total protein 25-30 mL/kg 0818-4250 total fluid mLs NUTRITION DIAGNOSIS: * Swallowing difficulty R/T dysphagia w/ h/o CVA as evidenced by now s/p recent PEG placement (08/08/19), on GT feeds, held at time, s/p code blue (09/07), orally intubated, now extubated. * Increased kcal/prot intake needs R/T suspected significant wt loss and underweight status, wounds as evidenced by 10lbs/6.7% wt loss in 1 month, 76% IBW w/ BMI of 18.4, admitted w/ DTPI wound @ sacrum, Lt heel, partial thickness pressure injury cleft of R L ear. CURRENT TF:Osmolite 1.2 @ 60ml/hr x 22 hrs ENTERAL NUTRITION RECOMMENDATIONS: Osmolite 1.2 @ 60ml/hr x 22 hrs + Prosource x 1 to provide 1320ml, 1584kcal, 73g +11g prot, 1082ml free water - Add Prosource x 1 to meet protein needs - HOLD 1 hr before and after synthroid meds. add Prosource 1 pack daily to better meet est pro needs - Flush per MD/ HOB over 30 degrees WITH ELEV BG, rec TF change to Glucerna 1.2 w/ a goal of 60ml/hr x22 hrs to provide 1320ml, 1584kcal, 79g prot ADDITIONAL RECOMMENDATIONS: * PER SNF: HT=6'1" WT= 139lbs ("August weight" from SNF) -> calibrated bedscale wt * Monitor K, need for TF change (K 5.9 upon adm, now wnl) * Wound care: add Vit C 500mg QD + Wesley 1pkt BID via PEG * Monitor BGs, need for NISS: h/o DM per MD (checking A1C not suggested given low hgb) (19) Encounter for PEG (percutaneous endoscopic gastrostomy) (20) At high risk for aspiration (21) Pleural effusion (22) Suspected COVID-19 virus infection Jan Mora Sep 27, 2019 22:27
[2019-09-28] VITALS (24 sets, daily range): BP systolic 115–154; BP diastolic 39–65
[2019-09-28 05:04] LABS: EOSINOPHILS % (AUTO) 2.4 % (0.0-3.0); HEMATOCRIT 25.6 % (42.0-52.0); HEMOGLOBIN 8.5 G/DL (14.2-18.0); LYMPHOCYTES % (AUTO) 15.9 % (20.0-45.0); MEAN CORPUSCULAR VOLUME 82 FL (80-99); MONOCYTES % (AUTO) 13.6 % (1.0-10.0); PLATELET COUNT 582 K/UL (150-450); RED BLOOD COUNT 3.13 M/UL (4.70-6.10); RED CELL DISTRIBUTION WIDTH 17.7 % (11.6-14.8); WHITE BLOOD COUNT 9.8 K/UL (4.8-10.8)
[2019-09-28 05:20] LABS: ALANINE AMINOTRANSFERASE 49 U/L (12-78); ALBUMIN 1.7 G/DL (3.4-5.0); ALBUMIN/GLOBULIN RATIO 0.3 (1.0-2.7); ALKALINE PHOSPHATASE 151 U/L (46-116); ANION GAP 12 mmol/L (5-15); ASPARTATE AMINO TRANSFERASE 73 U/L (15-37); BILIRUBIN,TOTAL 0.3 MG/DL (0.2-1.0); BLOOD UREA NITROGEN 20 mg/dL (7-18); CALCIUM 8.1 MG/DL (8.5-10.1); CARBON DIOXIDE 24 MMOL/L (21-32); CHLORIDE 105 MMOL/L (98-107); CREATININE 1.1 MG/DL (0.55-1.30); POTASSIUM 4.1 MMOL/L (3.5-5.1); SODIUM 141 MMOL/L (136-145)
[2019-09-28] MEDS: Heparin 5000 units/ml inj SUBQ SCH ×2 (09:00→21:12)
[2019-09-28] MEDS: Pantoprazole Inj IVP SCH ×2 (09:53→21:11)
--- NOTE | 2019-09-28 10:41 | Nephrology Progress Note ---
Assessment/Plan Problem List: (1) RAMAN (acute kidney injury) Assessment: Serum creatinine normalized with hydration (2) Dehydration (3) Suspected COVID-19 virus infection (4) Anemia (5) Sepsis (6) Diabetes mellitus (7) Hypothyroidism Assessment - Acute renal failure - Severe anemia - Sepsis, pneumonia, acute respiratory failure, suspected: Viewed 19 virus infection - Diabetes mellitus - Hypothyroidism - Feeding by G-tube - Squamous cell esophageal cancer - History of CVA (cerebrovascular accident) Plan Patient was coded early September 23 morning and back in ICU intubated Serum creatinine miguel to 1.5, now back to normal Stable from renal standpoint of view at this point Previously: Pneumonia SARS-CoV neg x2 MRSA screen pos sp cx: PSA and proteus Changes Seroquel to "as needed" due to bradycardia Discontinue IV fluid Monitor renal parameters, serum creatinine Adjust electrolytes with supplements Increase Synthroid dose Avoid nephrotoxic's as possible Ventilator management Urine studies Per orders Subjective ROS Limited/Unobtainable: Yes Objective Objective Last 24 Hour Vital Signs Date Time Temp Pulse Resp B/P (MAP) Pulse Ox O2 Delivery O2 Flow Rate FiO2 09/28/19 10:00 76 16 141/55 (83) 100 09/28/19 09:53 75 147/53 09/28/19 09:00 78 16 147/53 (84) 100 09/28/19 08:00 98.0 80 17 141/59 (86) 100 09/28/19 08:00 40 09/28/19 07:51 100 09/28/19 07:45 78 17 40 09/28/19 07:00 79 18 145/65 (91) 100 09/28/19 06:40 78 18 09/28/19 06:00 79 17 154/56 (88) 100 79 09/28/19 05:00 78 17 153/60 (91) 100 78 09/28/19 04:00 Mechanical Ventilator 09/28/19 04:00 40 09/28/19 04:00 97.7 72 17 146/58 (87) 100 72 09/28/19 04:00 72 09/28/19 03:58 79 18 40 09/28/19 03:00 72 18 140/59 (86) 100 72 09/28/19 02:00 71 17 142/51 (81) 100 71 09/28/19 01:00 71 15 146/57 (86) 100 71 4/22/20 00:00 40 09/28/19 00:00 69 09/28/19 00:00 Mechanical Ventilator 09/28/19 00:00 98.7 69 15 130/49 (76) 100 69 09/27/19 23:00 68 15 135/52 (79) 100 68 09/27/19 22:00 71 15 136/54 (81) 100 71 09/27/19 21:00 72 17 145/55 (85) 100 09/27/19 20:34 75 132/53 09/27/19 20:00 Mechanical Ventilator 09/27/19 20:00 40 09/27/19 20:00 71 09/27/19 20:00 98.5 71 132/53 (79) 09/27/19 19:02 77 16 40 09/27/19 19:00 76 19 151/52 (85) 100 09/27/19 18:00 75 18 135/52 (79) 100 09/27/19 17:00 74 18 141/64 (89) 100 09/27/19 16:00 40 09/27/19 16:00 98.5 71 19 142/47 (78) 100 09/27/19 16:00 Mechanical Ventilator 09/27/19 15:31 72 09/27/19 15:06 72 18 40 09/27/19 15:00 71 18 139/49 (79) 99 09/27/19 14:00 71 16 142/56 (84) 99 09/27/19 13:00 98.4 72 18 144/52 (82) 99 09/27/19 12:00 40 09/27/19 12:00 72 09/27/19 12:00 Mechanical Ventilator 09/27/19 12:00 73 16 142/58 (86) 99 09/27/19 11:00 75 16 152/55 (87) 100 Intake and Output 09/27/19 09/28/19 19:00 07:00 Intake Total 985 ml 660 ml Output Total 280 ml 370 ml Balance 705 ml 290 ml Intake Free Water 50 ml IV Total 105 ml Tube Feeding 780 ml 600 ml Other 50 ml 60 ml Output Urine Total 280 ml 370 ml Laboratory Tests 09/27/19 12:40: Prothrombin Time 10.9, Prothromb Time International Ratio 1.0, Activated Partial Thromboplast Time 28 09/28/19 04:13: White Blood Count 9.8, Red Blood Count 3.13L, Hemoglobin 8.5L, Hematocrit 25.6L , Mean Corpuscular Volume 82, Mean Corpuscular Hemoglobin 27.2, Mean Corpuscular Hemoglobin Concent 33.2, Red Cell Distribution Width 17.7H, Platelet Count 582H, Mean Platelet Volume 5.6L, Neutrophils (%) (Auto) 67.0, Lymphocytes (%) (Auto) 15.9L, Monocytes (%) (Auto) 13.6H, Eosinophils (%) (Auto ) 2.4, Basophils (%) (Auto) 1.0, Sodium Level 141, Potassium Level 4.1, Chloride Level 105, Carbon Dioxide Level 24, Anion Gap 12, Blood Urea Nitrogen 20H, Creatinine 1.1, Estimat Glomerular Filtration Rate > 60, Glucose Level 179H , Calcium Level 8.1L, Total Bilirubin 0.3, Aspartate Amino Transf (AST/SGOT) 73H , Alanine Aminotransferase (ALT/SGPT) 49, Alkaline Phosphatase 151H, Total Protein 7.2, Albumin 1.7L, Globulin 5.5, Albumin/Globulin Ratio 0.3L Height (Feet): 5 Height (Inches): 11.00 Weight (Pounds): 181 General Appearance: no apparent distress EENT: other - Trach and vented Cardiovascular: normal rate Respiratory/Chest: decreased breath sounds Abdomen: distended Objective no change Clovis Benites MD Sep 28, 2019 10:41
--- NOTE | 2019-09-28 10:46 | Infectious Diseases Prog Note ---
Assessment/Plan Assessment/Plan 09/23 SP asystole cardiac arrest VDRF 09/23 Afebrile No leukocytosis PNA VDRF, sp intubation 09/08, sp extubation 09/18, now on NC SARS-CoV neg x2 MRSA screen pos sp cx: PSA (hensley S) and proteus (hensley S) 09/25 CXR: Large right pleural effusion is again demonstrated. Small left pleural effusion is again demonstrated. Left lung is otherwise clear. sp cx p 09/24 CXR: Moderate size right pleural effusion with right upper and lower lobe atelectasis/consolidation, as well as mild pulmonary edema.. 09/17 CXR: Similar bilateral interstitial prominence, greater on the right.Stable right perihilar, mid and lower lung opacities. Similar left lung base opacity. Small left pleural effusion is stable. Loculated right pleural effusion is stable. No pneumothorax. CXR: Right pleural effusion, also demonstrated on prior 08/09/2019 exam, slightly increased. Hazy right lung parenchymal opacity probably represents a superimposed pleural fluid but infiltrate also possible. R pleural effusion, exudative -09/18 SP thorancetesis; removal of 2050 mL fluid; Fluid prot 5 (serum prot 7.2 ); cx Neg QTc 419 RAMAN, improving DM HTN CVA Dementia Nonverbal G tube Plan: monitor off abx 09/19 SPcefepime # 14/14 09/09 SP vanc #4 ( Cr increased) ICU care monitor temp and CBC DC COVID isolation isolation precaution per hospital protocol surveillance sp cx DW RN Thank you for this consult. [facility] will continue to follow the patient with you. Subjective Allergies: Coded Allergies: PENICILLINS (Verified Allergy, Unknown, 10/27/18) tolretas cephalosporins Subjective afebrile no leukocytosis off abx Objective Vital Signs Last 24 Hour Vital Signs Date Time Temp Pulse Resp B/P (MAP) Pulse Ox O2 Delivery O2 Flow Rate FiO2 09/28/19 10:00 76 16 141/55 (83) 100 09/28/19 09:53 75 147/53 09/28/19 09:00 78 16 147/53 (84) 100 09/28/19 08:00 98.0 80 17 141/59 (86) 100 09/28/19 08:00 40 09/28/19 07:51 100 09/28/19 07:45 78 17 40 09/28/19 07:00 79 18 145/65 (91) 100 09/28/19 06:40 78 18 09/28/19 06:00 79 17 154/56 (88) 100 79 09/28/19 05:00 78 17 153/60 (91) 100 78 09/28/19 04:00 Mechanical Ventilator 09/28/19 04:00 40 09/28/19 04:00 97.7 72 17 146/58 (87) 100 72 09/28/19 04:00 72 09/28/19 03:58 79 18 40 09/28/19 03:00 72 18 140/59 (86) 100 72 09/28/19 02:00 71 17 142/51 (81) 100 71 09/28/19 01:00 71 15 146/57 (86) 100 71 09/28/19 00:00 40 09/28/19 00:00 69 09/28/19 00:00 Mechanical Ventilator 09/28/19 00:00 98.7 69 15 130/49 (76) 100 69 09/27/19 23:00 68 15 135/52 (79) 100 68 09/27/19 22:00 71 15 136/54 (81) 100 71 09/27/19 21:00 72 17 145/55 (85) 100 09/27/19 20:34 75 132/53 09/27/19 20:00 Mechanical Ventilator 09/27/19 20:00 40 09/27/19 20:00 71 09/27/19 20:00 98.5 71 132/53 (79) 09/27/19 19:02 77 16 40 09/27/19 19:00 76 19 151/52 (85) 100 09/27/19 18:00 75 18 135/52 (79) 100 09/27/19 17:00 74 18 141/64 (89) 100 09/27/19 16:00 40 09/27/19 16:00 98.5 71 19 142/47 (78) 100 09/27/19 16:00 Mechanical Ventilator 09/27/19 15:31 72 09/27/19 15:06 72 18 40 09/27/19 15:00 71 18 139/49 (79) 99 09/27/19 14:00 71 16 142/56 (84) 99 09/27/19 13:00 98.4 72 18 144/52 (82) 99 09/27/19 12:00 40 09/27/19 12:00 72 09/27/19 12:00 Mechanical Ventilator 09/27/19 12:00 73 16 142/58 (86) 99 09/27/19 11:00 75 16 152/55 (87) 100 Height (Feet): 5 Height (Inches): 11.00 Weight (Pounds): 181 Objective Gen: NAD. well nourished HEENT: ETT. oral secretions Resp: coarse. equal chest rise. regular rate and rhythm. Abd: Soft. no TTP. nondistended. G tube site c/d/i. Neuro: opens eyes to voice and follows simple commands Microbiology Date/Time Source Procedure Growth Status 09/26/19 12:20 Sputum Gram Stain - Final Resulted 09/26/19 12:20 Sputum Sputum Culture Pending Resulted Laboratory Tests Test 09/27/19 12:40 09/28/19 04:13 Prothrombin Time 10.9 SEC (9.30-11.50) Prothromb Time International Ratio 1.0 (0.9-1.1) Activated Partial Thromboplast Time 28 SEC (23-33) White Blood Count 9.8 K/UL (4.8-10.8) Red Blood Count 3.13 M/UL (4.70-6.10) L Hemoglobin 8.5 G/DL (14.2-18.0) L Hematocrit 25.6 % (42.0-52.0) L Mean Corpuscular Volume 82 FL (80-99) Mean Corpuscular Hemoglobin 27.2 PG (27.0-31.0) Mean Corpuscular Hemoglobin Concent 33.2 G/DL (32.0-36.0) Red Cell Distribution Width 17.7 % (11.6-14.8) H Platelet Count 582 K/UL (150-450) H Mean Platelet Volume 5.6 FL (6.5-10.1) L Neutrophils (%) (Auto) 67.0 % (45.0-75.0) Lymphocytes (%) (Auto) 15.9 % (20.0-45.0) L Monocytes (%) (Auto) 13.6 % (1.0-10.0) H Eosinophils (%) (Auto) 2.4 % (0.0-3.0) Basophils (%) (Auto) 1.0 % (0.0-2.0) Sodium Level 141 MMOL/L (136-145) Potassium Level 4.1 MMOL/L (3.5-5.1) Chloride Level 105 MMOL/L (98-107) Carbon Dioxide Level 24 MMOL/L (21-32) Anion Gap 12 mmol/L (5-15) Blood Urea Nitrogen 20 mg/dL (7-18) H Creatinine 1.1 MG/DL (0.55-1.30) Estimat Glomerular Filtration Rate > 60 mL/min (>60) Glucose Level 179 MG/DL (74-106) H Calcium Level 8.1 MG/DL (8.5-10.1) L Total Bilirubin 0.3 MG/DL (0.2-1.0) Aspartate Amino Transf (AST/SGOT) 73 U/L (15-37) H Alanine Aminotransferase (ALT/SGPT) 49 U/L (12-78) Alkaline Phosphatase 151 U/L (46-116) H Total Protein 7.2 G/DL (6.4-8.2) Albumin 1.7 G/DL (3.4-5.0) L Globulin 5.5 g/dL Albumin/Globulin Ratio 0.3 (1.0-2.7) L Current Medications Medications (Trade) Dose Ordered Sig/Kike Route PRN Reason Start Time Stop Time Status Last Admin Dose Admin Acetaminophen (Tylenol) 650 mg Q4H PRN ORAL fever 09/24/19 03:00 10/07/19 02:54 Albuterol/ Ipratropium (Albuterol/ Ipratropium) 3 ml Q4HRT PRN HHN sob 09/24/19 08:45 09/29/19 08:44 Amlodipine Besylate (Norvasc) 5 mg BID@0900,2100 NG 09/24/19 21:00 10/22/19 08:59 09/28/19 09:53 Heparin Sodium (Porcine) (Heparin 5000 units/ml) 5,000 units EVERY 12 HOURS SUBQ 09/24/19 09:00 10/22/19 08:59 09/27/19 20:35 Levothyroxine Sodium (Synthroid) 75 mcg DAILY@0630 ORAL 09/24/19 06:30 10/07/19 08:29 09/28/19 06:12 Mirtazapine (Remeron) 7.5 mg BEDTIME ORAL 09/24/19 21:00 12/06/19 20:59 09/27/19 20:34 Nitroglycerin (Ntg) 0.4 mg Q5M PRN SL Prn Chest Pain 09/24/19 02:30 10/07/19 04:29 Ondansetron HCl (Zofran) 4 mg Q6H PRN IVP Nausea & Vomiting 09/24/19 03:00 10/07/19 02:57 Pantoprazole (Protonix) 40 mg Q12HR IVP 09/24/19 09:00 10/10/19 08:59 09/28/19 09:53 Polyethylene Glycol (Miralax) 17 gm DAILYPRN PRN ORAL Constipation 09/24/19 03:00 10/07/19 02:57 Promethazine HCl/ Codeine (Phenergan with Codeine) 5 ml Q4H PRN ORAL For Cough 09/24/19 03:00 10/07/19 02:58 Quetiapine Fumarate (SEROqueL) 25 mg Q8H PRN NG Agitation 09/24/19 02:35 10/30/19 02:34 Danielle Roach M.D. Sep 28, 2019 10:46
--- NOTE | 2019-09-28 11:14 | Internal Med Progress Note ---
Subjective Date of Service: Sep 28, 2019 Physician Name BahXander Attending Physician Lamont Hayes MD Current Medications Medications (Trade) Dose Ordered Sig/Kike Route PRN Reason Start Time Stop Time Status Last Admin Dose Admin Acetaminophen (Tylenol) 650 mg Q4H PRN ORAL fever 09/24/19 03:00 10/07/19 02:54 Albuterol/ Ipratropium (Albuterol/ Ipratropium) 3 ml Q4HRT PRN HHN sob 09/24/19 08:45 09/29/19 08:44 Amlodipine Besylate (Norvasc) 5 mg BID@0900,2100 NG 09/24/19 21:00 10/22/19 08:59 09/28/19 09:53 Heparin Sodium (Porcine) (Heparin 5000 units/ml) 5,000 units EVERY 12 HOURS SUBQ 09/24/19 09:00 10/22/19 08:59 09/27/19 20:35 Levothyroxine Sodium (Synthroid) 75 mcg DAILY@0630 ORAL 09/24/19 06:30 10/07/19 08:29 09/28/19 06:12 Mirtazapine (Remeron) 7.5 mg BEDTIME ORAL 09/24/19 21:00 12/06/19 20:59 09/27/19 20:34 Nitroglycerin (Ntg) 0.4 mg Q5M PRN SL Prn Chest Pain 09/24/19 02:30 10/07/19 04:29 Ondansetron HCl (Zofran) 4 mg Q6H PRN IVP Nausea & Vomiting 09/24/19 03:00 10/07/19 02:57 Pantoprazole (Protonix) 40 mg Q12HR IVP 09/24/19 09:00 10/10/19 08:59 09/28/19 09:53 Polyethylene Glycol (Miralax) 17 gm DAILYPRN PRN ORAL Constipation 09/24/19 03:00 10/07/19 02:57 Promethazine HCl/ Codeine (Phenergan with Codeine) 5 ml Q4H PRN ORAL For Cough 09/24/19 03:00 10/07/19 02:58 Quetiapine Fumarate (SEROqueL) 25 mg Q8H PRN NG Agitation 09/24/19 02:35 10/30/19 02:34 Allergies: Coded Allergies: PENICILLINS (Verified Allergy, Unknown, 10/27/18) tolretas cephalosporins ROS Limited/Unobtainable: Yes Subjective 84 YO M admitted with cough and congestion. Cover for Int Med-Dr Hayes. Reintubated 09/24/19 after cardiopulmonary arrest-see code blue note. ICU Objective Last Vital Signs Date Time Temp Pulse Resp B/P (MAP) Pulse Ox O2 Delivery O2 Flow Rate FiO2 09/28/19 10:00 76 16 141/55 (83) 100 09/28/19 08:00 98.0 09/28/19 08:00 40 09/28/19 04:00 Mechanical Ventilator 09/23/19 21:00 3.0 Laboratory Tests Test 09/27/19 12:40 09/28/19 04:13 Prothrombin Time 10.9 SEC (9.30-11.50) Prothromb Time International Ratio 1.0 (0.9-1.1) Activated Partial Thromboplast Time 28 SEC (23-33) White Blood Count 9.8 K/UL (4.8-10.8) Red Blood Count 3.13 M/UL (4.70-6.10) L Hemoglobin 8.5 G/DL (14.2-18.0) L Hematocrit 25.6 % (42.0-52.0) L Mean Corpuscular Volume 82 FL (80-99) Mean Corpuscular Hemoglobin 27.2 PG (27.0-31.0) Mean Corpuscular Hemoglobin Concent 33.2 G/DL (32.0-36.0) Red Cell Distribution Width 17.7 % (11.6-14.8) H Platelet Count 582 K/UL (150-450) H Mean Platelet Volume 5.6 FL (6.5-10.1) L Neutrophils (%) (Auto) 67.0 % (45.0-75.0) Lymphocytes (%) (Auto) 15.9 % (20.0-45.0) L Monocytes (%) (Auto) 13.6 % (1.0-10.0) H Eosinophils (%) (Auto) 2.4 % (0.0-3.0) Basophils (%) (Auto) 1.0 % (0.0-2.0) Sodium Level 141 MMOL/L (136-145) Potassium Level 4.1 MMOL/L (3.5-5.1) Chloride Level 105 MMOL/L (98-107) Carbon Dioxide Level 24 MMOL/L (21-32) Anion Gap 12 mmol/L (5-15) Blood Urea Nitrogen 20 mg/dL (7-18) H Creatinine 1.1 MG/DL (0.55-1.30) Estimat Glomerular Filtration Rate > 60 mL/min (>60) Glucose Level 179 MG/DL (74-106) H Calcium Level 8.1 MG/DL (8.5-10.1) L Total Bilirubin 0.3 MG/DL (0.2-1.0) Aspartate Amino Transf (AST/SGOT) 73 U/L (15-37) H Alanine Aminotransferase (ALT/SGPT) 49 U/L (12-78) Alkaline Phosphatase 151 U/L (46-116) H Total Protein 7.2 G/DL (6.4-8.2) Albumin 1.7 G/DL (3.4-5.0) L Globulin 5.5 g/dL Albumin/Globulin Ratio 0.3 (1.0-2.7) L Microbiology Date/Time Source Procedure Growth Status 09/26/19 12:20 Sputum Gram Stain - Final Resulted 09/26/19 12:20 Sputum Sputum Culture Pending Resulted Intake and Output 09/27/19 09/28/19 19:00 07:00 Intake Total 985 ml 660 ml Output Total 280 ml 420 ml Balance 705 ml 240 ml Intake Free Water 50 ml IV Total 105 ml Tube Feeding 780 ml 600 ml Other 50 ml 60 ml Output Urine Total 280 ml 420 ml Objective PHYSICAL EXAMINATION: GENERAL: The patient is a thin-appearing male, in no apparent distress. HEENT: Eyes, pupils are equal and responsive to light and accommodation. Extraocular movements are intact. NECK: Supple without lymphadenopathy. CHEST: Mech vent; Lungs are clear to auscultation bilaterally with decreased breath sounds on the right. There are no wheezes appreciated. ABDOMEN: Soft, nontender, and nondistended. Positive bowel sounds. No evidence of hepatosplenomegaly. Currently, no rebound or guarding noted. EXTREMITIES: Negative for clubbing, cyanosis, or edema. RECTAL/GENITAL: Not performed. NEUROLOGIC: Cranial nerves II through XII are grossly intact without focal deficits. Assessment/Plan Assessment/Plan ASSESSMENT: This is an 84-year-old male with: 1. Possible right pneumonia=pseudamonas 2. Urinary tract infection=jennifer 3. Right pleural effusion. 4. Esophageal mass. 5. Dysphagia. 6. Diabetes. 7. Alzheimer's dementia. 8. Cerebrovascular disease. 9. Hypothyroidism. 10. Seizure disorder. 11. Iron deficiency anemia. 13. Respiratory failure 14. S/P cardiopulmonary arrest TREATMENT: 1. Right perihilar Pneumonia/pleural effusion. COVID 19 and Influenza negative. A Pulmonary consultation has been obtained with Dr. Vania Hui. S/P right thoracentesis 09/19/19. We will follow recommendation of Pulmonary. ID=Dr Roach ABX= S/P cefepime 2. Urinary tract infection. . A urine culture =jennifer 3. Right pleural effusion. As above, a Pulmonary consultation has been obtained with Dr. Vania Hui. The patient may require thoracentesis during this hospitalization. 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 A Gastroenterology consultation has been obtained with Dr. Darrick Rosario. 5. Dysphagia. The patient is status post PEG placement on 08/08/2019 at [facility] by Dr. Darrick Rosario. 6. Diabetes type 2. A NovoLog sliding scale has been instituted. 7. Alzheimer's dementia. 8. Cerebrovascular disease, status post cerebrovascular accident. 9. Hypothyroidism. Continue levothyroxine as above. 10. Seizure disorder. 11. Iron deficiency anemia. 12. reintubated 09/24/19-see code blue note Xander Bah MD Sep 28, 2019 11:14
--- NOTE | 2019-09-28 11:21 | General Progress Note ---
Assessment/Plan Assessment/Plan: 1. Esophageal cancer. 2. Dysphagia. 3. Diabetes type 2. 4. Dementia. 5. CVA. 6. Hypothyroidism. 7. Seizure disorder. 8. Iron deficiency anemia. 9. Respiratory failure. 10. Dysphagia with G-tube stable H&H GT has been changed and working well GT flushes abx per id pulm care will fu Subjective ROS Limited/Unobtainable: No Allergies: Coded Allergies: PENICILLINS (Verified Allergy, Unknown, 10/27/18) tolretas cephalosporins Objective Last 24 Hour Vital Signs Date Time Temp Pulse Resp B/P (MAP) Pulse Ox O2 Delivery O2 Flow Rate FiO2 09/28/19 10:00 76 16 141/55 (83) 100 09/28/19 09:53 75 147/53 09/28/19 09:00 78 16 147/53 (84) 100 09/28/19 08:00 98.0 80 17 141/59 (86) 100 09/28/19 08:00 40 09/28/19 07:51 100 09/28/19 07:45 78 17 40 09/28/19 07:00 79 18 145/65 (91) 100 09/28/19 06:40 78 18 09/28/19 06:00 79 17 154/56 (88) 100 79 09/28/19 05:00 78 17 153/60 (91) 100 78 09/28/19 04:00 Mechanical Ventilator 09/28/19 04:00 40 09/28/19 04:00 97.7 72 17 146/58 (87) 100 72 09/28/19 04:00 72 09/28/19 03:58 79 18 40 09/28/19 03:00 72 18 140/59 (86) 100 72 09/28/19 02:00 71 17 142/51 (81) 100 71 09/28/19 01:00 71 15 146/57 (86) 100 71 09/28/19 00:00 40 09/28/19 00:00 69 09/28/19 00:00 Mechanical Ventilator 09/28/19 00:00 98.7 69 15 130/49 (76) 100 69 09/27/19 23:00 68 15 135/52 (79) 100 68 09/27/19 22:00 71 15 136/54 (81) 100 71 09/27/19 21:00 72 17 145/55 (85) 100 09/27/19 20:34 75 132/53 09/27/19 20:00 Mechanical Ventilator 09/27/19 20:00 40 09/27/19 20:00 71 09/27/19 20:00 98.5 71 132/53 (79) 09/27/19 19:02 77 16 40 09/27/19 19:00 76 19 151/52 (85) 100 09/27/19 18:00 75 18 135/52 (79) 100 09/27/19 17:00 74 18 141/64 (89) 100 09/27/19 16:00 40 09/27/19 16:00 98.5 71 19 142/47 (78) 100 09/27/19 16:00 Mechanical Ventilator 09/27/19 15:31 72 09/27/19 15:06 72 18 40 09/27/19 15:00 71 18 139/49 (79) 99 09/27/19 14:00 71 16 142/56 (84) 99 09/27/19 13:00 98.4 72 18 144/52 (82) 99 09/27/19 12:00 40 09/27/19 12:00 72 09/27/19 12:00 Mechanical Ventilator 09/27/19 12:00 73 16 142/58 (86) 99 Intake and Output 09/27/19 09/28/19 19:00 07:00 Intake Total 985 ml 660 ml Output Total 280 ml 420 ml Balance 705 ml 240 ml Intake Free Water 50 ml IV Total 105 ml Tube Feeding 780 ml 600 ml Other 50 ml 60 ml Output Urine Total 280 ml 420 ml Laboratory Tests 09/27/19 12:40: Prothrombin Time 10.9, Prothromb Time International Ratio 1.0, Activated Partial Thromboplast Time 28 09/28/19 04:13: White Blood Count 9.8, Red Blood Count 3.13L, Hemoglobin 8.5L, Hematocrit 25.6L , Mean Corpuscular Volume 82, Mean Corpuscular Hemoglobin 27.2, Mean Corpuscular Hemoglobin Concent 33.2, Red Cell Distribution Width 17.7H, Platelet Count 582H, Mean Platelet Volume 5.6L, Neutrophils (%) (Auto) 67.0, Lymphocytes (%) (Auto) 15.9L, Monocytes (%) (Auto) 13.6H, Eosinophils (%) (Auto ) 2.4, Basophils (%) (Auto) 1.0, Sodium Level 141, Potassium Level 4.1, Chloride Level 105, Carbon Dioxide Level 24, Anion Gap 12, Blood Urea Nitrogen 20H, Creatinine 1.1, Estimat Glomerular Filtration Rate > 60, Glucose Level 179H , Calcium Level 8.1L, Total Bilirubin 0.3, Aspartate Amino Transf (AST/SGOT) 73H , Alanine Aminotransferase (ALT/SGPT) 49, Alkaline Phosphatase 151H, Total Protein 7.2, Albumin 1.7L, Globulin 5.5, Albumin/Globulin Ratio 0.3L Height (Feet): 5 Height (Inches): 11.00 Weight (Pounds): 181 General Appearance: no apparent distress EENT: normal ENT inspection Neck: supple Cardiovascular: normal rate Respiratory/Chest: decreased breath sounds Abdomen: normal bowel sounds, non tender, soft Extremities: non-tender Darrick Rosario MD Sep 28, 2019 11:21
--- NOTE | 2019-09-28 11:56 | Pulmonolgy Critical Care Note ---
Critical Care - Asmt/Plan Problems: (1) Acute respiratory failure Assessment & Plan: got reintubated (2) Pleural effusion (3) Suspected COVID-19 virus infection (4) Nosocomial pneumonia (5) Sepsis (6) Squamous cell esophageal cancer (7) Diabetes mellitus (8) At high risk for aspiration (9) Severe malnutrition (10) Alzheimer's dementia (11) History of CVA (cerebrovascular accident) (12) Feeding by G-tube Respiratory: monitor respiratory rate, adjust FIO2, CXR Cardiac: continue pressors, continue to monitor HR/BP Renal: F/U I&O, keep IV fluid, check electrolytes Infectious Disease: check cultures Gastrointestinal: continue feedings/current rate Endocrine: monitor blood sugar, continue sliding scale insulin Hematologic: monitor H/H, transfuse if hgb<8.5 Neurologic: PRN Ativan, PRN Morphine, keep patient comfortable Affect: PRN ativan Notes Reviewed: cardio Discussed with: nurses, consultants, cyanide case [employer] - Objective Last 24 Hour Vital Signs Date Time Temp Pulse Resp B/P (MAP) Pulse Ox O2 Delivery O2 Flow Rate FiO2 09/28/19 11:24 74 14 40 09/28/19 11:00 74 15 126/51 (76) 100 09/28/19 10:00 76 16 141/55 (83) 100 09/28/19 09:53 75 147/53 09/28/19 09:00 78 16 147/53 (84) 100 09/28/19 08:00 98.0 80 17 141/59 (86) 100 09/28/19 08:00 72 09/28/19 08:00 40 09/28/19 07:51 100 09/28/19 07:45 78 17 40 09/28/19 07:00 79 18 145/65 (91) 100 09/28/19 06:40 78 18 09/28/19 06:00 79 17 154/56 (88) 100 79 09/28/19 05:00 78 17 153/60 (91) 100 78 09/28/19 04:00 Mechanical Ventilator 09/28/19 04:00 40 09/28/19 04:00 97.7 72 17 146/58 (87) 100 72 09/28/19 04:00 72 09/28/19 03:58 79 18 40 09/28/19 03:00 72 18 140/59 (86) 100 72 09/28/19 02:00 71 17 142/51 (81) 100 71 09/28/19 01:00 71 15 146/57 (86) 100 71 09/28/19 00:00 40 09/28/19 00:00 69 09/28/19 00:00 Mechanical Ventilator 09/28/19 00:00 98.7 69 15 130/49 (76) 100 69 09/27/19 23:00 68 15 135/52 (79) 100 68 09/27/19 22:00 71 15 136/54 (81) 100 71 09/27/19 21:00 72 17 145/55 (85) 100 09/27/19 20:34 75 132/53 09/27/19 20:00 Mechanical Ventilator 09/27/19 20:00 40 09/27/19 20:00 71 09/27/19 20:00 98.5 71 132/53 (79) 09/27/19 19:02 77 16 40 09/27/19 19:00 76 19 151/52 (85) 100 09/27/19 18:00 75 18 135/52 (79) 100 09/27/19 17:00 74 18 141/64 (89) 100 09/27/19 16:00 40 09/27/19 16:00 98.5 71 19 142/47 (78) 100 09/27/19 16:00 Mechanical Ventilator 09/27/19 15:31 72 09/27/19 15:06 72 18 40 09/27/19 15:00 71 18 139/49 (79) 99 09/27/19 14:00 71 16 142/56 (84) 99 09/27/19 13:00 98.4 72 18 144/52 (82) 99 09/27/19 12:00 40 09/27/19 12:00 72 09/27/19 12:00 Mechanical Ventilator 09/27/19 12:00 73 16 142/58 (86) 99 Status: sedated Condition: critical Neck: full ROM Lungs: rales, rhonchi Heart: HR/BP stable Abdomen: soft, non-tender Extremities: no C/C/E Micro: Microbiology Date/Time Source Procedure Growth Status 09/26/19 12:20 Sputum Gram Stain - Final Resulted 09/26/19 12:20 Sputum Sputum Culture Pending Resulted Critical Care - Subjective ROS Limited/Unobtainable: Yes Condition: critical EKG Rhythm: Sinus Rhythm FI02: 40 Vent Support Breath Rate: 12 Vent Support Mode: AC Vent Tidal Volume: 550 Sputum Amount: Moderate PEEP: 5.0 PIP: 34 Tube Feeding Amount: 0 I&O: Intake and Output 09/27/19 09/28/19 19:00 07:00 Intake Total 985 ml 660 ml Output Total 280 ml 420 ml Balance 705 ml 240 ml Intake Free Water 50 ml IV Total 105 ml Tube Feeding 780 ml 600 ml Other 50 ml 60 ml Output Urine Total 280 ml 420 ml ET-Tube: 7.5 ET Position: 26 Labs: Laboratory Tests Test 09/27/19 12:40 09/28/19 04:13 Prothrombin Time 10.9 SEC (9.30-11.50) Prothromb Time International Ratio 1.0 (0.9-1.1) Activated Partial Thromboplast Time 28 SEC (23-33) White Blood Count 9.8 K/UL (4.8-10.8) Red Blood Count 3.13 M/UL (4.70-6.10) L Hemoglobin 8.5 G/DL (14.2-18.0) L Hematocrit 25.6 % (42.0-52.0) L Mean Corpuscular Volume 82 FL (80-99) Mean Corpuscular Hemoglobin 27.2 PG (27.0-31.0) Mean Corpuscular Hemoglobin Concent 33.2 G/DL (32.0-36.0) Red Cell Distribution Width 17.7 % (11.6-14.8) H Platelet Count 582 K/UL (150-450) H Mean Platelet Volume 5.6 FL (6.5-10.1) L Neutrophils (%) (Auto) 67.0 % (45.0-75.0) Lymphocytes (%) (Auto) 15.9 % (20.0-45.0) L Monocytes (%) (Auto) 13.6 % (1.0-10.0) H Eosinophils (%) (Auto) 2.4 % (0.0-3.0) Basophils (%) (Auto) 1.0 % (0.0-2.0) Sodium Level 141 MMOL/L (136-145) Potassium Level 4.1 MMOL/L (3.5-5.1) Chloride Level 105 MMOL/L (98-107) Carbon Dioxide Level 24 MMOL/L (21-32) Anion Gap 12 mmol/L (5-15) Blood Urea Nitrogen 20 mg/dL (7-18) H Creatinine 1.1 MG/DL (0.55-1.30) Estimat Glomerular Filtration Rate > 60 mL/min (>60) Glucose Level 179 MG/DL (74-106) H Calcium Level 8.1 MG/DL (8.5-10.1) L Total Bilirubin 0.3 MG/DL (0.2-1.0) Aspartate Amino Transf (AST/SGOT) 73 U/L (15-37) H Alanine Aminotransferase (ALT/SGPT) 49 U/L (12-78) Alkaline Phosphatase 151 U/L (46-116) H Total Protein 7.2 G/DL (6.4-8.2) Albumin 1.7 G/DL (3.4-5.0) L Globulin 5.5 g/dL Albumin/Globulin Ratio 0.3 (1.0-2.7) L Vania Hui MD Sep 28, 2019 11:56
--- NOTE | 2019-09-28 12:30 | Surgery Progress Note ---
Surgery Progress Note Subjective Additional Comments ill appearing labs reviewed exam stable Objective Last 24 Hour Vital Signs Date Time Temp Pulse Resp B/P (MAP) Pulse Ox O2 Delivery O2 Flow Rate FiO2 09/28/19 12:21 99.2 09/28/19 12:00 Mechanical Ventilator 09/28/19 12:00 73 14 124/50 (74) 100 09/28/19 12:00 40 09/28/19 12:00 72 09/28/19 11:24 74 14 40 09/28/19 11:00 74 15 126/51 (76) 100 09/28/19 10:00 76 16 141/55 (83) 100 09/28/19 09:53 75 147/53 09/28/19 09:00 78 16 147/53 (84) 100 09/28/19 08:00 98.0 80 17 141/59 (86) 100 09/28/19 08:00 Mechanical Ventilator 09/28/19 08:00 80 09/28/19 08:00 40 09/28/19 07:51 100 09/28/19 07:45 78 17 40 09/28/19 07:00 79 18 145/65 (91) 100 09/28/19 06:40 78 18 09/28/19 06:00 79 17 154/56 (88) 100 79 09/28/19 05:00 78 17 153/60 (91) 100 78 09/28/19 04:00 Mechanical Ventilator 09/28/19 04:00 40 09/28/19 04:00 97.7 72 17 146/58 (87) 100 72 09/28/19 04:00 72 09/28/19 03:58 79 18 40 09/28/19 03:00 72 18 140/59 (86) 100 72 09/28/19 02:00 71 17 142/51 (81) 100 71 09/28/19 01:00 71 15 146/57 (86) 100 71 09/28/19 00:00 40 09/28/19 00:00 69 09/28/19 00:00 Mechanical Ventilator 09/28/19 00:00 98.7 69 15 130/49 (76) 100 69 09/27/19 23:00 68 15 135/52 (79) 100 68 09/27/19 22:00 71 15 136/54 (81) 100 71 09/27/19 21:00 72 17 145/55 (85) 100 09/27/19 20:34 75 132/53 09/27/19 20:00 Mechanical Ventilator 09/27/19 20:00 40 09/27/19 20:00 71 09/27/19 20:00 98.5 71 132/53 (79) 09/27/19 19:02 77 16 40 09/27/19 19:00 76 19 151/52 (85) 100 09/27/19 18:00 75 18 135/52 (79) 100 09/27/19 17:00 74 18 141/64 (89) 100 09/27/19 16:00 40 09/27/19 16:00 98.5 71 19 142/47 (78) 100 09/27/19 16:00 Mechanical Ventilator 09/27/19 15:31 72 09/27/19 15:06 72 18 40 09/27/19 15:00 71 18 139/49 (79) 99 09/27/19 14:00 71 16 142/56 (84) 99 09/27/19 13:00 98.4 72 18 144/52 (82) 99 I&O Intake and Output 09/27/19 09/28/19 19:00 07:00 Intake Total 985 ml 660 ml Output Total 280 ml 420 ml Balance 705 ml 240 ml Intake Free Water 50 ml IV Total 105 ml Tube Feeding 780 ml 600 ml Other 50 ml 60 ml Output Urine Total 280 ml 420 ml Dressing: other Wound: other Drains: other Cardiovascular: RSR Respiratory: decreased breath sounds Abdomen: soft, non-tender, present bowel sounds Extremities: no tenderness, no cyanosis Laboratory Tests Test 09/27/19 12:40 09/28/19 04:13 Prothrombin Time 10.9 SEC (9.30-11.50) Prothromb Time International Ratio 1.0 (0.9-1.1) Activated Partial Thromboplast Time 28 SEC (23-33) White Blood Count 9.8 K/UL (4.8-10.8) Red Blood Count 3.13 M/UL (4.70-6.10) L Hemoglobin 8.5 G/DL (14.2-18.0) L Hematocrit 25.6 % (42.0-52.0) L Mean Corpuscular Volume 82 FL (80-99) Mean Corpuscular Hemoglobin 27.2 PG (27.0-31.0) Mean Corpuscular Hemoglobin Concent 33.2 G/DL (32.0-36.0) Red Cell Distribution Width 17.7 % (11.6-14.8) H Platelet Count 582 K/UL (150-450) H Mean Platelet Volume 5.6 FL (6.5-10.1) L Neutrophils (%) (Auto) 67.0 % (45.0-75.0) Lymphocytes (%) (Auto) 15.9 % (20.0-45.0) L Monocytes (%) (Auto) 13.6 % (1.0-10.0) H Eosinophils (%) (Auto) 2.4 % (0.0-3.0) Basophils (%) (Auto) 1.0 % (0.0-2.0) Sodium Level 141 MMOL/L (136-145) Potassium Level 4.1 MMOL/L (3.5-5.1) Chloride Level 105 MMOL/L (98-107) Carbon Dioxide Level 24 MMOL/L (21-32) Anion Gap 12 mmol/L (5-15) Blood Urea Nitrogen 20 mg/dL (7-18) H Creatinine 1.1 MG/DL (0.55-1.30) Estimat Glomerular Filtration Rate > 60 mL/min (>60) Glucose Level 179 MG/DL (74-106) H Calcium Level 8.1 MG/DL (8.5-10.1) L Total Bilirubin 0.3 MG/DL (0.2-1.0) Aspartate Amino Transf (AST/SGOT) 73 U/L (15-37) H Alanine Aminotransferase (ALT/SGPT) 49 U/L (12-78) Alkaline Phosphatase 151 U/L (46-116) H Total Protein 7.2 G/DL (6.4-8.2) Albumin 1.7 G/DL (3.4-5.0) L Globulin 5.5 g/dL Albumin/Globulin Ratio 0.3 (1.0-2.7) L Plan Problems: (1) UTI (urinary tract infection) (2) Acute respiratory failure Assessment & Plan: There is infiltrate suspected in the right perihilar region obscuring the right hilum. There is a hazy opacity that may partially be accounted for by pleural fluid on the right. Reticular densities are present on the left in the perihilar aspect of the lung. Endotracheal tube is in good position just above the anselmo. Heart size is normal. IMPRESSION: Suspected perihilar airspace disease in the right lung suspicious for pneumonia. Reticular nodular infiltrate in the left lung noted also. Right pleural effusion suspected. Endotracheal tube in good position cont vents support Lungs: Similar bilateral interstitial prominence, greater on the right. Stable right perihilar, mid and lower lung opacities. Similar left lung base opacity. Pleural space: Small left pleural effusion is stable. Loculated right pleural effusion is stable. No pneumothorax. Heart: Unremarkable. No cardiomegaly. Mediastinum: Unremarkable. Bones/joints: Unremarkable. Tubes, lines and devices: Endotracheal tube has been pulled back and is 10 cm above the anselmo near the thoracic inlet. IMPRESSION: Endotracheal tube has been pulled back and is 10 cm above the anselmo near the thoracic inlet. Remainder findings are stable. may need thoracentesis soon Moderate size right pleural effusion with right upper and lower lobe atelectasis/consolidation, as well as mild pulmonary edema.. (3) Sepsis Assessment & Plan: Pt cachetic and presented on admission with multiple pressure injuries. Partial thickness pressure injury Cleft of L ear(L)1.2cm x (W)0.4cm. Base of wound moist and viable with small amt sanguineous exudate. Partial thickness pressure injury cleft of R ear(L)0.5cm x (W)0.7cm. Base of wound moist and viable Periwound erythematous.Small amt sanguineous exudate noted. Sacral DTPI(L)5cm x (W)10.5cm. Base of injury is purple with maroon borders. Coccygeal bony protrusion with darker skin tone, and small opening noted to R gluteus (L)0.5cm x (W)0.5cm within base of injury. No further skin breakdown periwound. Intact blood blister noted to R 1st metatarsal head(L)1.1cm x (W)2.5cm. DTPI noted to L heel extending into plantar aspect. Base of injury presents as an intact blood filled blister. Periwound is boggy with non-blanching erythema. R heel is boggy but blanchable. wounds unlikely etiology of sepsis respiratory but given current condition high risk for breakdown and worsening will monitor closely discussed with RN and staff great care being provided coded acls intubated in ICU prognosis guarded Tx.Plan: Apply Betadine to clefts of R and L ears. Pad oxygen tubing with gauze and keep oxygen tubing loose. Apply Moisture Barrier Paste to Sacrum. Cover with Optifoam drsg. Change every 3 days and prn. Apply Betadine to L heel. Cover with Optifoam drsg. Change every 3 days and prn. Apply Betadine to R 1st metatarsal head. Cover with Optifoam drsg. Change every 3 days and prn. Apply Cavilon Skin Barrier R heel. Cover with Optifoam drsg. Change every 7 days and prn. Reposition at least every 2hours or as tolerated. Off-load heels with pillow. on air mattress but not very comfortable appearing cont current care / pulm management (4) Severe anemia (5) Nosocomial pneumonia (6) Atrial fibrillation (7) Acute metabolic encephalopathy (8) History of CVA (cerebrovascular accident) (9) Diabetes mellitus (10) Hypothyroidism (11) Alzheimer's dementia (12) PVC (premature ventricular contraction) (13) Hypertension (14) Squamous cell esophageal cancer (15) Feeding by G-tube (16) Dehydration (17) Anemia (18) Severe malnutrition Assessment & Plan: DAILY ESTIMATED NEEDS: Needs based on underweight, suspected wt loss, wounds/ 63kg 25-33 kcals/kg 2445-5431 total kcals 1.25-2 g protein/kg 78-126 g total protein 25-30 mL/kg 8104-7218 total fluid mLs NUTRITION DIAGNOSIS: * Swallowing difficulty R/T dysphagia w/ h/o CVA as evidenced by now s/p recent PEG placement (08/08/19), on GT feeds, held at time, s/p code blue (09/07), orally intubated, now extubated. * Increased kcal/prot intake needs R/T suspected significant wt loss and underweight status, wounds as evidenced by 10lbs/6.7% wt loss in 1 month, 76% IBW w/ BMI of 18.4, admitted w/ DTPI wound @ sacrum, Lt heel, partial thickness pressure injury cleft of R L ear. CURRENT TF:Osmolite 1.2 @ 60ml/hr x 22 hrs ENTERAL NUTRITION RECOMMENDATIONS: Osmolite 1.2 @ 60ml/hr x 22 hrs + Prosource x 1 to provide 1320ml, 1584kcal, 73g +11g prot, 1082ml free water - Add Prosource x 1 to meet protein needs - HOLD 1 hr before and after synthroid meds. add Prosource 1 pack daily to better meet est pro needs - Flush per MD/ HOB over 30 degrees WITH ELEV BG, rec TF change to Glucerna 1.2 w/ a goal of 60ml/hr x22 hrs to provide 1320ml, 1584kcal, 79g prot ADDITIONAL RECOMMENDATIONS: * PER SNF: HT=6'1" WT= 139lbs ("August weight" from SNF) -> calibrated bedscale wt * Monitor K, need for TF change (K 5.9 upon adm, now wnl) * Wound care: add Vit C 500mg QD + Wesley 1pkt BID via PEG * Monitor BGs, need for NISS: h/o DM per MD (checking A1C not suggested given low hgb) (19) Encounter for PEG (percutaneous endoscopic gastrostomy) (20) At high risk for aspiration (21) Pleural effusion (22) Suspected COVID-19 virus infection Jan Mora Sep 28, 2019 12:30
--- NOTE | 2019-09-28 13:45 | Pre-Procedure Note/Attestation ---
Pre-Procedure Note/Attestation Complete Prior to Procedure Planned Procedure: right Procedure Narrative: thoracentesis Indications for Procedure Pre-Operative Diagnosis: pleural effusion Attestation I attest that I discussed the nature of the procedure; its benefits; risks and complications; and alternatives (and the risks and benefits of such alternatives ), prior to the procedure, with the patient (or the patient's legal assistance representative). I attest that, if there was a reasonable possibility of needing a blood transfusion, the patient (or the patient's legal assistance representative) was given the [facility] standardized written summary, pursuant to the Suresh Royer Blood Safety Act ([place] Health and Safety Code # 1645, as amended). I attest that I re-evaluated the patient just prior to the surgery and that there has been no change in the patient's H&P, except as documented below: Discussed by phone with pt's. vanessa Vazquez at 1025 a.m. Yaniv Pantoja MD Sep 28, 2019 13:45
--- NOTE | 2019-09-28 15:45 | Brief Operative Note ---
Immediate Post Operative Note Operative Note Pre-op Diagnosis: pleural effusion Procedure: R thoracentesis Post-op Diagnosis: same as pre-op Surgeon: Mikie Tiwari Specimen: yes - 50 ml fluid sent to lab Complications: none Fluids: none Implant(s) used?: No Yaniv Tiwari MD Sep 28, 2019 15:45
--- NOTE | 2019-09-28 15:52 | Diagnostic Imaging Report ---
Indication: Status post thoracentesis Technique: One view of the chest Comparison: 09/27/2019 Findings: Interim resolution of previously demonstrated right pleural effusion, status post thoracentesis. No pneumothorax is evident. There is bilateral interstitial congestion. Haziness at the left lung base could indicate a small amount of left pleural fluid. The heart size is normal. Stable satisfactory position of endotracheal tube Impression: Resolved right pleural effusion, status post thoracentesis. No radiographically evident complication Mild diffuse bilateral interstitial congestion
--- NOTE | 2019-09-28 15:53 | Diagnostic Imaging Report ---
Indications: Pleural effusion Technique: Ultrasound used to localize optimal puncture site. Sterile prepping and draping right chest. Local anesthesia with 1% lidocaine. Under real-time ultrasound guidance, puncture pleural space using thoracentesis needle. Stylet removed. Catheter placed to vacuum bottle suction. Total 2300 milliliters of serosanguineous fluid aspirated. Patient tolerated procedure well, without immediate complication. Findings: Followup sonography demonstrates complete resolution of pleural fluid. Impression: Successful ultrasound-guided thoracentesis, yielding 2300 milliliters of serosanguineous fluid
[2019-09-29] VITALS (24 sets, daily range): BP systolic 54–148; BP diastolic 37–49
[2019-09-29 05:08] LABS: HEMATOCRIT 23.9 % (42.0-52.0); HEMOGLOBIN 7.8 G/DL (14.2-18.0); MEAN CORPUSCULAR VOLUME 82 FL (80-99); PLATELET COUNT 513 K/UL (150-450); RED BLOOD COUNT 2.91 M/UL (4.70-6.10); RED CELL DISTRIBUTION WIDTH 17.5 % (11.6-14.8); WHITE BLOOD COUNT 8.9 K/UL (4.8-10.8)
[2019-09-29 05:21] LABS: PHOSPHORUS 3.1 MG/DL (2.5-4.9)
[2019-09-29 05:29] LABS: ALANINE AMINOTRANSFERASE 65 U/L (12-78); ALBUMIN 1.5 G/DL (3.4-5.0); ALBUMIN/GLOBULIN RATIO 0.3 (1.0-2.7); ALKALINE PHOSPHATASE 187 U/L (46-116); ANION GAP 8 mmol/L (5-15); ASPARTATE AMINO TRANSFERASE 98 U/L (15-37); BILIRUBIN,TOTAL 0.4 MG/DL (0.2-1.0); BLOOD UREA NITROGEN 22 mg/dL (7-18); CALCIUM 8.4 MG/DL (8.5-10.1); CARBON DIOXIDE 26 MMOL/L (21-32); CHLORIDE 104 MMOL/L (98-107); CREATININE 1.2 MG/DL (0.55-1.30); POTASSIUM 4.2 MMOL/L (3.5-5.1); SODIUM 138 MMOL/L (136-145)
[2019-09-29] MEDS: Heparin 5000 units/ml inj SUBQ SCH ×2 (09:00→20:52)
[2019-09-29] MEDS: Pantoprazole Inj IVP SCH ×2 (09:52→20:52)
--- NOTE | 2019-09-29 09:56 | Diagnostic Imaging Report ---
Indication: Dyspnea Technique: One view of the chest Comparison: 09/28/2019 Findings: Interim development of hazy opacity at the right lung base. Left basilar reticular and hazy opacity is unchanged. Endotracheal tube remains. The heart size is normal. Impression: Developing hazy right basilar opacity. This could represent reaching layering pleural fluid. This could also represent reexpansion pulmonary edema given recent high-volume thoracentesis, or could represent developing ammonia or pulmonary edema. Hazy left basilar opacity, unchanged, may reflect parenchymal infiltrate versus pleural fluid versus both
--- NOTE | 2019-09-29 09:57 | Nephrology Progress Note ---
Assessment/Plan Problem List: (1) RAMAN (acute kidney injury) Assessment: Serum creatinine normalized with hydration (2) Dehydration (3) Suspected COVID-19 virus infection (4) Anemia (5) Sepsis (6) Diabetes mellitus (7) Hypothyroidism Assessment - Acute renal failure - Severe anemia - Sepsis, pneumonia, acute respiratory failure, suspected: Viewed 19 virus infection - Diabetes mellitus - Hypothyroidism - Feeding by G-tube - Squamous cell esophageal cancer - History of CVA (cerebrovascular accident) Plan Patient was coded early September 23 morning and back in ICU intubated Serum creatinine miguel to 1.5, now back to normal Stable from renal standpoint of view at this point Previously: Pneumonia SARS-CoV neg x2 MRSA screen pos sp cx: PSA and proteus Changes Seroquel to "as needed" due to bradycardia Discontinue IV fluid Monitor renal parameters, serum creatinine Adjust electrolytes with supplements Increase Synthroid dose Avoid nephrotoxic's as possible Ventilator management Urine studies Per orders Subjective ROS Limited/Unobtainable: Yes Objective Objective Last 24 Hour Vital Signs Date Time Temp Pulse Resp B/P (MAP) Pulse Ox O2 Delivery O2 Flow Rate FiO2 09/29/19 09:53 74 149/56 09/29/19 09:00 67 14 88/44 (59) 100 09/29/19 08:00 68 13 108/44 (65) 100 09/29/19 08:00 40 09/29/19 07:18 71 13 100 Mechanical Ventilator 100 09/29/19 07:16 67 12 40 09/29/19 07:00 71 14 105/47 (66) 100 09/29/19 06:30 69 13 09/29/19 06:00 70 13 112/47 (68) 100 09/29/19 05:00 73 15 119/46 (70) 100 09/29/19 04:00 99.6 72 19 109/47 (67) 92 09/29/19 04:00 72 09/29/19 04:00 40 09/29/19 04:00 Mechanical Ventilator 09/29/19 03:30 73 14 40 09/29/19 03:00 77 24 109/47 (67) 100 09/29/19 02:00 73 20 118/42 (67) 99 09/29/19 01:00 72 17 108/48 (68) 98 09/29/19 00:00 Mechanical Ventilator 09/29/19 00:00 99.0 70 13 116/49 (71) 99 09/29/19 00:00 40 09/29/19 00:00 70 09/28/19 23:21 73 15 40 09/28/19 23:00 73 15 116/48 (70) 100 09/28/19 22:00 73 17 120/49 (72) 100 09/28/19 21:11 74 122/49 09/28/19 21:00 72 14 122/49 (73) 100 09/28/19 20:00 Mechanical Ventilator 09/28/19 20:00 40 09/28/19 20:00 99.1 74 13 118/45 (69) 100 09/28/19 19:35 74 09/28/19 19:30 69 13 40 09/28/19 19:00 75 13 120/55 (76) 100 09/28/19 18:00 71 22 136/57 (83) 100 09/28/19 17:00 89 22 142/55 (84) 100 09/28/19 16:00 40 09/28/19 16:00 100.3 77 13 115/50 (71) 100 09/28/19 16:00 Mechanical Ventilator 09/28/19 15:16 71 12 40 09/28/19 15:00 73 22 126/39 (68) 97 09/28/19 14:00 72 16 128/47 (74) 100 09/28/19 13:00 73 15 121/48 (72) 100 09/28/19 12:21 99.2 09/28/19 12:00 Mechanical Ventilator 09/28/19 12:00 73 14 124/50 (74) 100 09/28/19 12:00 40 09/28/19 12:00 72 09/28/19 11:24 74 14 40 09/28/19 11:00 74 15 126/51 (76) 100 09/28/19 10:00 76 16 141/55 (83) 100 Intake and Output 09/28/19 09/29/19 19:00 07:00 Intake Total 360 ml 810 ml Output Total 465 ml 565 ml Balance -105 ml 245 ml Tube Feeding 360 ml 660 ml Other 150 ml Output Urine Total 465 ml 565 ml Current Medications Medications (Trade) Dose Ordered Sig/Kike Route PRN Reason Start Time Stop Time Status Last Admin Dose Admin Acetaminophen (Tylenol) 650 mg Q4H PRN ORAL fever 09/24/19 03:00 10/07/19 02:54 Amlodipine Besylate (Norvasc) 5 mg BID@0900,2100 NG 09/24/19 21:00 10/22/19 08:59 09/29/19 09:53 Heparin Sodium (Porcine) (Heparin 5000 units/ml) 5,000 units EVERY 12 HOURS SUBQ 09/24/19 09:00 10/22/19 08:59 09/28/19 21:12 Levothyroxine Sodium (Synthroid) 75 mcg DAILY@0630 ORAL 09/24/19 06:30 10/07/19 08:29 09/29/19 05:41 Nitroglycerin (Ntg) 0.4 mg Q5M PRN SL Prn Chest Pain 09/24/19 02:30 10/07/19 04:29 Ondansetron HCl (Zofran) 4 mg Q6H PRN IVP Nausea & Vomiting 09/24/19 03:00 10/07/19 02:57 09/28/19 21:10 Pantoprazole (Protonix) 40 mg Q12HR IVP 09/24/19 09:00 10/10/19 08:59 09/29/19 09:52 Polyethylene Glycol (Miralax) 17 gm DAILYPRN PRN ORAL Constipation 09/24/19 03:00 10/07/19 02:57 Promethazine HCl/ Codeine (Phenergan with Codeine) 5 ml Q4H PRN ORAL For Cough 09/24/19 03:00 10/07/19 02:58 Quetiapine Fumarate (SEROqueL) 25 mg Q8H PRN NG Agitation 09/24/19 02:35 10/30/19 02:34 Laboratory Tests 09/29/19 03:50: White Blood Count 8.9, Red Blood Count 2.91L, Hemoglobin 7.8L, Hematocrit 23.9L , Mean Corpuscular Volume 82, Mean Corpuscular Hemoglobin 26.9L, Mean Corpuscular Hemoglobin Concent 32.8, Red Cell Distribution Width 17.5H, Platelet Count 513H, Mean Platelet Volume 5.3L, Neutrophils (%) (Auto) , Lymphocytes (%) (Auto) , Monocytes (%) (Auto) , Eosinophils (%) (Auto) , Basophils (%) (Auto) , Sodium Level 138, Potassium Level 4.2, Chloride Level 104 , Carbon Dioxide Level 26, Anion Gap 8, Blood Urea Nitrogen 22H, Creatinine 1.2 , Estimat Glomerular Filtration Rate > 60, Glucose Level 110H, Calcium Level 8.4L, Phosphorus Level 3.1, Magnesium Level 2.0, Total Bilirubin 0.4, Aspartate Amino Transf (AST/SGOT) 98H, Alanine Aminotransferase (ALT/SGPT) 65, Alkaline Phosphatase 187H, Total Protein 6.6, Albumin 1.5L, Globulin 5.1, Albumin/ Globulin Ratio 0.3L 09/29/19 08:20: Arterial Blood pH 7.496H, Arterial Blood Partial Pressure CO2 33.8L, Arterial Blood Partial Pressure O2 109.2H, Arterial Blood HCO3 25.5, Arterial Blood Oxygen Saturation 97.7, Arterial Blood Base Excess 2.3H, Watson Test Positive Height (Feet): 5 Height (Inches): 11.00 Weight (Pounds): 150 General Appearance: no apparent distress EENT: other - Remains intubated on ventilator Cardiovascular: normal rate Respiratory/Chest: decreased breath sounds Abdomen: distended Objective no change Clovis Benites MD Sep 29, 2019 09:57
--- NOTE | 2019-09-29 10:50 | Pulmonolgy Critical Care Note ---
Critical Care - Asmt/Plan Problems: (1) Acute respiratory failure Assessment & Plan: got reintubated (2) Pleural effusion (3) Suspected COVID-19 virus infection (4) Nosocomial pneumonia (5) Sepsis (6) Squamous cell esophageal cancer (7) Diabetes mellitus (8) At high risk for aspiration (9) Severe malnutrition (10) Alzheimer's dementia (11) History of CVA (cerebrovascular accident) (12) Feeding by G-tube Respiratory: monitor respiratory rate, adjust FIO2, CXR, weaning trial Cardiac: continue to monitor HR/BP Renal: F/U I&O Infectious Disease: check cultures, continue antibiotics Gastrointestinal: continue feedings/current rate Endocrine: monitor blood sugar Hematologic: monitor H/H, transfuse if hgb<8.5 Neurologic: PRN Ativan, PRN Morphine, keep patient comfortable Affect: PRN ativan Disposition: keep in ICU Notes Reviewed: nurse navigator, cardio, renal, ID, GI Discussed with: nurses, consultants, case work aidejunior brand manager - Objective Last 24 Hour Vital Signs Date Time Temp Pulse Resp B/P (MAP) Pulse Ox O2 Delivery O2 Flow Rate FiO2 09/29/19 10:18 40 09/29/19 10:12 69 23 40 09/29/19 10:11 100 09/29/19 09:53 74 149/56 09/29/19 09:00 67 14 88/44 (59) 100 09/29/19 08:00 68 13 108/44 (65) 100 09/29/19 08:00 40 09/29/19 07:18 71 13 100 Mechanical Ventilator 100 09/29/19 07:16 67 12 40 09/29/19 07:00 71 14 105/47 (66) 100 09/29/19 06:30 69 13 09/29/19 06:00 70 13 112/47 (68) 100 09/29/19 05:00 73 15 119/46 (70) 100 09/29/19 04:00 99.6 72 19 109/47 (67) 92 09/29/19 04:00 72 09/29/19 04:00 40 09/29/19 04:00 Mechanical Ventilator 09/29/19 03:30 73 14 40 09/29/19 03:00 77 24 109/47 (67) 100 09/29/19 02:00 73 20 118/42 (67) 99 09/29/19 01:00 72 17 108/48 (68) 98 09/29/19 00:00 Mechanical Ventilator 09/29/19 00:00 99.0 70 13 116/49 (71) 99 09/29/19 00:00 40 09/29/19 00:00 70 09/28/19 23:21 73 15 40 09/28/19 23:00 73 15 116/48 (70) 100 09/28/19 22:00 73 17 120/49 (72) 100 09/28/19 21:11 74 122/49 09/28/19 21:00 72 14 122/49 (73) 100 09/28/19 20:00 Mechanical Ventilator 09/28/19 20:00 40 09/28/19 20:00 99.1 74 13 118/45 (69) 100 09/28/19 19:35 74 09/28/19 19:30 69 13 40 09/28/19 19:00 75 13 120/55 (76) 100 09/28/19 18:00 71 22 136/57 (83) 100 09/28/19 17:00 89 22 142/55 (84) 100 09/28/19 16:00 40 09/28/19 16:00 100.3 77 13 115/50 (71) 100 09/28/19 16:00 Mechanical Ventilator 09/28/19 15:16 71 12 40 09/28/19 15:00 73 22 126/39 (68) 97 09/28/19 14:00 72 16 128/47 (74) 100 09/28/19 13:00 73 15 121/48 (72) 100 09/28/19 12:21 99.2 09/28/19 12:00 Mechanical Ventilator 09/28/19 12:00 73 14 124/50 (74) 100 09/28/19 12:00 40 09/28/19 12:00 72 09/28/19 11:24 74 14 40 09/28/19 11:00 74 15 126/51 (76) 100 Status: awake Condition: critical HEENT: atraumatic Neck: full ROM Heart: HR/BP stable Abdomen: soft, non-tender Extremities: no C/C/E Micro: Microbiology Date/Time Source Procedure Growth Status 09/26/19 12:20 Sputum Gram Stain - Final Resulted 09/26/19 12:20 Sputum Culture - Preliminary Pseudomonas Aeruginosa Resulted Critical Care - Subjective ROS Limited/Unobtainable: Yes Interval Events: had thoracentesis yesterday, 2.3 liters were removed from right chest. Condition: critical FI02: 40 Vent Support Breath Rate: 10 Vent Support Mode: IMV/SIMV Vent Tidal Volume: 550 Sputum Amount: Small PEEP: 5.0 PIP: 16 Tube Feeding Amount: 60 I&O: Intake and Output 09/28/19 09/29/19 19:00 07:00 Intake Total 360 ml 810 ml Output Total 465 ml 565 ml Balance -105 ml 245 ml Tube Feeding 360 ml 660 ml Other 150 ml Output Urine Total 465 ml 565 ml ET-Tube: 7.5 ET Position: 26 Labs: Laboratory Tests Test 09/29/19 03:50 09/29/19 08:20 White Blood Count 8.9 K/UL (4.8-10.8) Red Blood Count 2.91 M/UL (4.70-6.10) L Hemoglobin 7.8 G/DL (14.2-18.0) L Hematocrit 23.9 % (42.0-52.0) L Mean Corpuscular Volume 82 FL (80-99) Mean Corpuscular Hemoglobin 26.9 PG (27.0-31.0) L Mean Corpuscular Hemoglobin Concent 32.8 G/DL (32.0-36.0) Red Cell Distribution Width 17.5 % (11.6-14.8) H Platelet Count 513 K/UL (150-450) H Mean Platelet Volume 5.3 FL (6.5-10.1) L Neutrophils (%) (Auto) % (45.0-75.0) Lymphocytes (%) (Auto) % (20.0-45.0) Monocytes (%) (Auto) % (1.0-10.0) Eosinophils (%) (Auto) % (0.0-3.0) Basophils (%) (Auto) % (0.0-2.0) Sodium Level 138 MMOL/L (136-145) Potassium Level 4.2 MMOL/L (3.5-5.1) Chloride Level 104 MMOL/L (98-107) Carbon Dioxide Level 26 MMOL/L (21-32) Anion Gap 8 mmol/L (5-15) Blood Urea Nitrogen 22 mg/dL (7-18) H Creatinine 1.2 MG/DL (0.55-1.30) Estimat Glomerular Filtration Rate > 60 mL/min (>60) Glucose Level 110 MG/DL (74-106) H Calcium Level 8.4 MG/DL (8.5-10.1) L Phosphorus Level 3.1 MG/DL (2.5-4.9) Magnesium Level 2.0 MG/DL (1.8-2.4) Total Bilirubin 0.4 MG/DL (0.2-1.0) Aspartate Amino Transf (AST/SGOT) 98 U/L (15-37) H Alanine Aminotransferase (ALT/SGPT) 65 U/L (12-78) Alkaline Phosphatase 187 U/L (46-116) H Total Protein 6.6 G/DL (6.4-8.2) Albumin 1.5 G/DL (3.4-5.0) L Globulin 5.1 g/dL Albumin/Globulin Ratio 0.3 (1.0-2.7) L Arterial Blood pH 7.496 (7.350-7.450) Arterial Blood Partial Pressure CO2 33.8 mmHg (35.0-45.0) L Arterial Blood Partial Pressure O2 109.2 mmHg (75.0-100.0) H Arterial Blood HCO3 25.5 mmol/L (22.0-26.0) Arterial Blood Oxygen Saturation 97.7 % (95-100) Arterial Blood Base Excess 2.3 (-2-2) H Watson Test Positive Vania Hui MD Sep 29, 2019 10:50
--- NOTE | 2019-09-29 11:13 | Infectious Diseases Prog Note ---
Assessment/Plan Assessment/Plan 09/23 SP asystole cardiac arrest VDRF 09/23 low grade fever x1 No leukocytosis PNA VDRF, sp intubation 09/08, sp extubation 09/18, now on NC SARS-CoV neg x2 MRSA screen pos sp cx: PSA (hensley S) and proteus (hensley S) 09/28 CXR: Developing hazy right basilar opacity. This could represent reaching layering pleural fluid. This could also represent reexpansion pulmonary edema given recent high-volume thoracentesis, or could represent developing ammonia or pulmonary edema. Hazy left basilar opacity, unchanged, may reflect parenchymal infiltrate versus pleural fluid versus both 09/25 CXR: Large right pleural effusion is again demonstrated. Small left pleural effusion is again demonstrated. Left lung is otherwise clear. sp cx PsA (R zozyn, S levo, gentamycin) 09/24 CXR: Moderate size right pleural effusion with right upper and lower lobe atelectasis/consolidation, as well as mild pulmonary edema.. 09/17 CXR: Similar bilateral interstitial prominence, greater on the right.Stable right perihilar, mid and lower lung opacities. Similar left lung base opacity. Small left pleural effusion is stable. Loculated right pleural effusion is stable. No pneumothorax. CXR: Right pleural effusion, also demonstrated on prior 08/09/2019 exam, slightly increased. Hazy right lung parenchymal opacity probably represents a superimposed pleural fluid but infiltrate also possible. R pleural effusion, exudative -09/18 SP thorancetesis; removal of 2050 mL fluid; Fluid prot 5 (serum prot 7.2 ); cx Neg QTc 419 RAMAN, improving DM HTN CVA Dementia Nonverbal G tube Plan: monitor off abx unless ongoing fevers, increasing respiratory requirements 09/19 SPcefepime # 14/09/09 SP vanc #4 ( Cr increased) ICU care monitor temp and CBC DC COVID isolation isolation precaution per hospital protocol DW RN Thank you for this consult. [facility] will continue to follow the patient with you. Subjective Allergies: Coded Allergies: PENICILLINS (Verified Allergy, Unknown, 10/27/18) tolretas cephalosporins Subjective Tm 100.3 no leukocytosis off abx Objective Vital Signs Last 24 Hour Vital Signs Date Time Temp Pulse Resp B/P (MAP) Pulse Ox O2 Delivery O2 Flow Rate FiO2 09/29/19 10:18 40 09/29/19 10:12 69 23 40 09/29/19 10:11 100 09/29/19 09:53 74 149/56 09/29/19 09:00 67 14 88/44 (59) 100 09/29/19 08:00 68 13 108/44 (65) 100 09/29/19 08:00 40 09/29/19 07:18 71 13 100 Mechanical Ventilator 100 09/29/19 07:16 67 12 40 09/29/19 07:00 71 14 105/47 (66) 100 09/29/19 06:30 69 13 09/29/19 06:00 70 13 112/47 (68) 100 09/29/19 05:00 73 15 119/46 (70) 100 09/29/19 04:00 99.6 72 19 109/47 (67) 92 09/29/19 04:00 72 09/29/19 04:00 40 09/29/19 04:00 Mechanical Ventilator 09/29/19 03:30 73 14 40 09/29/19 03:00 77 24 109/47 (67) 100 09/29/19 02:00 73 20 118/42 (67) 99 09/29/19 01:00 72 17 108/48 (68) 98 09/29/19 00:00 Mechanical Ventilator 09/29/19 00:00 99.0 70 13 116/49 (71) 99 09/29/19 00:00 40 09/29/19 00:00 70 09/28/19 23:21 73 15 40 09/28/19 23:00 73 15 116/48 (70) 100 09/28/19 22:00 73 17 120/49 (72) 100 09/28/19 21:11 74 122/49 09/28/19 21:00 72 14 122/49 (73) 100 09/28/19 20:00 Mechanical Ventilator 09/28/19 20:00 40 09/28/19 20:00 99.1 74 13 118/45 (69) 100 09/28/19 19:35 74 09/28/19 19:30 69 13 40 09/28/19 19:00 75 13 120/55 (76) 100 09/28/19 18:00 71 22 136/57 (83) 100 09/28/19 17:00 89 22 142/55 (84) 100 09/28/19 16:00 40 09/28/19 16:00 100.3 77 13 115/50 (71) 100 09/28/19 16:00 Mechanical Ventilator 09/28/19 15:16 71 12 40 09/28/19 15:00 73 22 126/39 (68) 97 09/28/19 14:00 72 16 128/47 (74) 100 09/28/19 13:00 73 15 121/48 (72) 100 09/28/19 12:21 99.2 09/28/19 12:00 Mechanical Ventilator 09/28/19 12:00 73 14 124/50 (74) 100 09/28/19 12:00 40 09/28/19 12:00 72 09/28/19 11:24 74 14 40 Height (Feet): 5 Height (Inches): 11.00 Weight (Pounds): 150 Objective Gen: NAD. well nourished HEENT: ETT. oral secretions Resp: coarse. equal chest rise. regular rate and rhythm. Abd: Soft. no TTP. nondistended. G tube site c/d/i. Neuro: opens eyes to voice and follows simple commands Microbiology Date/Time Source Procedure Growth Status 09/26/19 12:20 Sputum Gram Stain - Final Resulted 09/26/19 12:20 Sputum Culture - Preliminary Pseudomonas Aeruginosa Resulted Laboratory Tests Test 09/29/19 03:50 09/29/19 08:20 White Blood Count 8.9 K/UL (4.8-10.8) Red Blood Count 2.91 M/UL (4.70-6.10) L Hemoglobin 7.8 G/DL (14.2-18.0) L Hematocrit 23.9 % (42.0-52.0) L Mean Corpuscular Volume 82 FL (80-99) Mean Corpuscular Hemoglobin 26.9 PG (27.0-31.0) L Mean Corpuscular Hemoglobin Concent 32.8 G/DL (32.0-36.0) Red Cell Distribution Width 17.5 % (11.6-14.8) H Platelet Count 513 K/UL (150-450) H Mean Platelet Volume 5.3 FL (6.5-10.1) L Neutrophils (%) (Auto) % (45.0-75.0) Lymphocytes (%) (Auto) % (20.0-45.0) Monocytes (%) (Auto) % (1.0-10.0) Eosinophils (%) (Auto) % (0.0-3.0) Basophils (%) (Auto) % (0.0-2.0) Sodium Level 138 MMOL/L (136-145) Potassium Level 4.2 MMOL/L (3.5-5.1) Chloride Level 104 MMOL/L (98-107) Carbon Dioxide Level 26 MMOL/L (21-32) Anion Gap 8 mmol/L (5-15) Blood Urea Nitrogen 22 mg/dL (7-18) H Creatinine 1.2 MG/DL (0.55-1.30) Estimat Glomerular Filtration Rate > 60 mL/min (>60) Glucose Level 110 MG/DL (74-106) H Calcium Level 8.4 MG/DL (8.5-10.1) L Phosphorus Level 3.1 MG/DL (2.5-4.9) Magnesium Level 2.0 MG/DL (1.8-2.4) Total Bilirubin 0.4 MG/DL (0.2-1.0) Aspartate Amino Transf (AST/SGOT) 98 U/L (15-37) H Alanine Aminotransferase (ALT/SGPT) 65 U/L (12-78) Alkaline Phosphatase 187 U/L (46-116) H Total Protein 6.6 G/DL (6.4-8.2) Albumin 1.5 G/DL (3.4-5.0) L Globulin 5.1 g/dL Albumin/Globulin Ratio 0.3 (1.0-2.7) L Arterial Blood pH 7.496 (7.350-7.450) Arterial Blood Partial Pressure CO2 33.8 mmHg (35.0-45.0) L Arterial Blood Partial Pressure O2 109.2 mmHg (75.0-100.0) H Arterial Blood HCO3 25.5 mmol/L (22.0-26.0) Arterial Blood Oxygen Saturation 97.7 % (95-100) Arterial Blood Base Excess 2.3 (-2-2) H Watson Test Positive Current Medications Medications (Trade) Dose Ordered Sig/Kike Route PRN Reason Start Time Stop Time Status Last Admin Dose Admin Acetaminophen (Tylenol) 650 mg Q4H PRN ORAL fever 09/24/19 03:00 10/07/19 02:54 Amlodipine Besylate (Norvasc) 5 mg BID@0900,2100 NG 09/24/19 21:00 10/22/19 08:59 09/29/19 09:53 Heparin Sodium (Porcine) (Heparin 5000 units/ml) 5,000 units EVERY 12 HOURS SUBQ 09/24/19 09:00 10/22/19 08:59 09/28/19 21:12 Levothyroxine Sodium (Synthroid) 75 mcg DAILY@0630 ORAL 09/24/19 06:30 10/07/19 08:29 09/29/19 05:41 Nitroglycerin (Ntg) 0.4 mg Q5M PRN SL Prn Chest Pain 09/24/19 02:30 10/07/19 04:29 Ondansetron HCl (Zofran) 4 mg Q6H PRN IVP Nausea & Vomiting 09/24/19 03:00 10/07/19 02:57 09/28/19 21:10 Pantoprazole (Protonix) 40 mg Q12HR IVP 09/24/19 09:00 10/10/19 08:59 09/29/19 09:52 Polyethylene Glycol (Miralax) 17 gm DAILYPRN PRN ORAL Constipation 09/24/19 03:00 10/07/19 02:57 Promethazine HCl/ Codeine (Phenergan with Codeine) 5 ml Q4H PRN ORAL For Cough 09/24/19 03:00 10/07/19 02:58 Quetiapine Fumarate (SEROqueL) 25 mg Q8H PRN NG Agitation 09/24/19 02:35 10/30/19 02:34 Danielle Roach M.D. Sep 29, 2019 11:13
--- NOTE | 2019-09-29 11:51 | General Progress Note ---
Assessment/Plan Assessment/Plan: 1. Esophageal cancer. 2. Dysphagia. 3. Diabetes type 2. 4. Dementia. 5. CVA. 6. Hypothyroidism. 7. Seizure disorder. 8. Iron deficiency anemia. 9. Respiratory failure. 10. Dysphagia with G-tube stable H&H GT has been changed and working well GT flushes abx per id pulm care will fu Subjective ROS Limited/Unobtainable: No Allergies: Coded Allergies: PENICILLINS (Verified Allergy, Unknown, 10/27/18) tolretas cephalosporins Objective Last 24 Hour Vital Signs Date Time Temp Pulse Resp B/P (MAP) Pulse Ox O2 Delivery O2 Flow Rate FiO2 09/29/19 10:18 40 09/29/19 10:12 69 23 40 09/29/19 10:11 100 09/29/19 09:53 74 149/56 09/29/19 09:00 Mechanical Ventilator 09/29/19 09:00 67 14 88/44 (59) 100 09/29/19 08:00 68 13 108/44 (65) 100 09/29/19 08:00 40 09/29/19 07:18 71 13 100 Mechanical Ventilator 100 09/29/19 07:16 67 12 40 09/29/19 07:00 71 14 105/47 (66) 100 09/29/19 06:30 69 13 09/29/19 06:00 70 13 112/47 (68) 100 09/29/19 05:00 73 15 119/46 (70) 100 09/29/19 04:00 99.6 72 19 109/47 (67) 92 09/29/19 04:00 72 09/29/19 04:00 40 09/29/19 04:00 Mechanical Ventilator 09/29/19 03:30 73 14 40 09/29/19 03:00 77 24 109/47 (67) 100 09/29/19 02:00 73 20 118/42 (67) 99 09/29/19 01:00 72 17 108/48 (68) 98 09/29/19 00:00 Mechanical Ventilator 09/29/19 00:00 99.0 70 13 116/49 (71) 99 09/29/19 00:00 40 09/29/19 00:00 70 09/28/19 23:21 73 15 40 09/28/19 23:00 73 15 116/48 (70) 100 09/28/19 22:00 73 17 120/49 (72) 100 09/28/19 21:11 74 122/49 09/28/19 21:00 72 14 122/49 (73) 100 09/28/19 20:00 Mechanical Ventilator 09/28/19 20:00 40 09/28/19 20:00 99.1 74 13 118/45 (69) 100 09/28/19 19:35 74 09/28/19 19:30 69 13 40 09/28/19 19:00 75 13 120/55 (76) 100 09/28/19 18:00 71 22 136/57 (83) 100 09/28/19 17:00 89 22 142/55 (84) 100 09/28/19 16:00 40 09/28/19 16:00 100.3 77 13 115/50 (71) 100 09/28/19 16:00 Mechanical Ventilator 09/28/19 15:16 71 12 40 09/28/19 15:00 73 22 126/39 (68) 97 09/28/19 14:00 72 16 128/47 (74) 100 09/28/19 13:00 73 15 121/48 (72) 100 09/28/19 12:21 99.2 09/28/19 12:00 Mechanical Ventilator 09/28/19 12:00 73 14 124/50 (74) 100 09/28/19 12:00 40 09/28/19 12:00 72 Intake and Output 09/28/19 09/29/19 19:00 07:00 Intake Total 360 ml 810 ml Output Total 465 ml 565 ml Balance -105 ml 245 ml Tube Feeding 360 ml 660 ml Other 150 ml Output Urine Total 465 ml 565 ml Laboratory Tests 09/29/19 03:50: White Blood Count 8.9, Red Blood Count 2.91L, Hemoglobin 7.8L, Hematocrit 23.9L , Mean Corpuscular Volume 82, Mean Corpuscular Hemoglobin 26.9L, Mean Corpuscular Hemoglobin Concent 32.8, Red Cell Distribution Width 17.5H, Platelet Count 513H, Mean Platelet Volume 5.3L, Neutrophils (%) (Auto) , Lymphocytes (%) (Auto) , Monocytes (%) (Auto) , Eosinophils (%) (Auto) , Basophils (%) (Auto) , Sodium Level 138, Potassium Level 4.2, Chloride Level 104 , Carbon Dioxide Level 26, Anion Gap 8, Blood Urea Nitrogen 22H, Creatinine 1.2 , Estimat Glomerular Filtration Rate > 60, Glucose Level 110H, Calcium Level 8.4L, Phosphorus Level 3.1, Magnesium Level 2.0, Total Bilirubin 0.4, Aspartate Amino Transf (AST/SGOT) 98H, Alanine Aminotransferase (ALT/SGPT) 65, Alkaline Phosphatase 187H, Total Protein 6.6, Albumin 1.5L, Globulin 5.1, Albumin/ Globulin Ratio 0.3L 09/29/19 08:20: Arterial Blood pH 7.496H, Arterial Blood Partial Pressure CO2 33.8L, Arterial Blood Partial Pressure O2 109.2H, Arterial Blood HCO3 25.5, Arterial Blood Oxygen Saturation 97.7, Arterial Blood Base Excess 2.3H, Watson Test Positive Height (Feet): 5 Height (Inches): 11.00 Weight (Pounds): 150 General Appearance: no apparent distress EENT: TMs normal Neck: supple Cardiovascular: normal rate Respiratory/Chest: decreased breath sounds Abdomen: normal bowel sounds, non tender, soft Extremities: non-tender Darrick Rosario MD Sep 29, 2019 11:51
--- NOTE | 2019-09-29 15:35 | Surgery Progress Note ---
Surgery Progress Note Subjective Additional Comments no acute events labs reviewed ill appearing on support. not weaning Objective Last 24 Hour Vital Signs Date Time Temp Pulse Resp B/P (MAP) Pulse Ox O2 Delivery O2 Flow Rate FiO2 09/29/19 15:00 73 26 125/42 (69) 98 09/29/19 14:30 74 24 40 09/29/19 14:00 67 26 116/44 (68) 100 09/29/19 13:00 65 28 118/40 (66) 100 09/29/19 12:46 71 35 40 09/29/19 12:00 Mechanical Ventilator 09/29/19 12:00 100 09/29/19 12:00 40 09/29/19 12:00 99.0 66 15 111/48 (69) 100 09/29/19 11:00 65 17 103/42 (62) 100 09/29/19 10:18 40 09/29/19 10:12 69 23 40 09/29/19 10:11 100 09/29/19 10:00 65 17 96/38 (57) 100 09/29/19 09:53 74 149/56 09/29/19 09:00 67 14 88/44 (59) 100 09/29/19 08:00 68 13 108/44 (65) 100 09/29/19 08:00 Mechanical Ventilator 09/29/19 08:00 100 09/29/19 08:00 40 09/29/19 07:18 71 13 100 Mechanical Ventilator 100 09/29/19 07:16 67 12 40 09/29/19 07:00 71 14 105/47 (66) 100 09/29/19 06:30 69 13 09/29/19 06:00 70 13 112/47 (68) 100 09/29/19 05:00 73 15 119/46 (70) 100 09/29/19 04:00 99.6 72 19 109/47 (67) 92 09/29/19 04:00 72 09/29/19 04:00 40 09/29/19 04:00 Mechanical Ventilator 09/29/19 03:30 73 14 40 09/29/19 03:00 77 24 109/47 (67) 100 09/29/19 02:00 73 20 118/42 (67) 99 09/29/19 01:00 72 17 108/48 (68) 98 09/29/19 00:00 Mechanical Ventilator 09/29/19 00:00 99.0 70 13 116/49 (71) 99 09/29/19 00:00 40 09/29/19 00:00 70 09/28/19 23:21 73 15 40 09/28/19 23:00 73 15 116/48 (70) 100 09/28/19 22:00 73 17 120/49 (72) 100 09/28/19 21:11 74 122/49 09/28/19 21:00 72 14 122/49 (73) 100 09/28/19 20:00 Mechanical Ventilator 09/28/19 20:00 40 09/28/19 20:00 99.1 74 13 118/45 (69) 100 09/28/19 19:35 74 09/28/19 19:30 69 13 40 09/28/19 19:00 75 13 120/55 (76) 100 09/28/19 18:00 71 22 136/57 (83) 100 09/28/19 17:00 89 22 142/55 (84) 100 09/28/19 16:00 40 09/28/19 16:00 100.3 77 13 115/50 (71) 100 09/28/19 16:00 Mechanical Ventilator I&O Intake and Output 09/28/19 09/29/19 19:00 07:00 Intake Total 360 ml 810 ml Output Total 465 ml 565 ml Balance -105 ml 245 ml Tube Feeding 360 ml 660 ml Other 150 ml Output Urine Total 465 ml 565 ml Dressing: other Wound: other Drains: other Cardiovascular: RSR Respiratory: decreased breath sounds Abdomen: soft, non-tender, present bowel sounds Extremities: no cyanosis Laboratory Tests Test 09/29/19 03:50 09/29/19 08:20 White Blood Count 8.9 K/UL (4.8-10.8) Red Blood Count 2.91 M/UL (4.70-6.10) L Hemoglobin 7.8 G/DL (14.2-18.0) L Hematocrit 23.9 % (42.0-52.0) L Mean Corpuscular Volume 82 FL (80-99) Mean Corpuscular Hemoglobin 26.9 PG (27.0-31.0) L Mean Corpuscular Hemoglobin Concent 32.8 G/DL (32.0-36.0) Red Cell Distribution Width 17.5 % (11.6-14.8) H Platelet Count 513 K/UL (150-450) H Mean Platelet Volume 5.3 FL (6.5-10.1) L Neutrophils (%) (Auto) % (45.0-75.0) Lymphocytes (%) (Auto) % (20.0-45.0) Monocytes (%) (Auto) % (1.0-10.0) Eosinophils (%) (Auto) % (0.0-3.0) Basophils (%) (Auto) % (0.0-2.0) Sodium Level 138 MMOL/L (136-145) Potassium Level 4.2 MMOL/L (3.5-5.1) Chloride Level 104 MMOL/L (98-107) Carbon Dioxide Level 26 MMOL/L (21-32) Anion Gap 8 mmol/L (5-15) Blood Urea Nitrogen 22 mg/dL (7-18) H Creatinine 1.2 MG/DL (0.55-1.30) Estimat Glomerular Filtration Rate > 60 mL/min (>60) Glucose Level 110 MG/DL (74-106) H Calcium Level 8.4 MG/DL (8.5-10.1) L Phosphorus Level 3.1 MG/DL (2.5-4.9) Magnesium Level 2.0 MG/DL (1.8-2.4) Total Bilirubin 0.4 MG/DL (0.2-1.0) Aspartate Amino Transf (AST/SGOT) 98 U/L (15-37) H Alanine Aminotransferase (ALT/SGPT) 65 U/L (12-78) Alkaline Phosphatase 187 U/L (46-116) H Total Protein 6.6 G/DL (6.4-8.2) Albumin 1.5 G/DL (3.4-5.0) L Globulin 5.1 g/dL Albumin/Globulin Ratio 0.3 (1.0-2.7) L Arterial Blood pH 7.496 (7.350-7.450) Arterial Blood Partial Pressure CO2 33.8 mmHg (35.0-45.0) L Arterial Blood Partial Pressure O2 109.2 mmHg (75.0-100.0) H Arterial Blood HCO3 25.5 mmol/L (22.0-26.0) Arterial Blood Oxygen Saturation 97.7 % (95-100) Arterial Blood Base Excess 2.3 (-2-2) H Watson Test Positive Plan Problems: (1) UTI (urinary tract infection) (2) Acute respiratory failure Assessment & Plan: There is infiltrate suspected in the right perihilar region obscuring the right hilum. There is a hazy opacity that may partially be accounted for by pleural fluid on the right. Reticular densities are present on the left in the perihilar aspect of the lung. Endotracheal tube is in good position just above the anselmo. Heart size is normal. IMPRESSION: Suspected perihilar airspace disease in the right lung suspicious for pneumonia. Reticular nodular infiltrate in the left lung noted also. Right pleural effusion suspected. Endotracheal tube in good position cont vents support Lungs: Similar bilateral interstitial prominence, greater on the right. Stable right perihilar, mid and lower lung opacities. Similar left lung base opacity. Pleural space: Small left pleural effusion is stable. Loculated right pleural effusion is stable. No pneumothorax. Heart: Unremarkable. No cardiomegaly. Mediastinum: Unremarkable. Bones/joints: Unremarkable. Tubes, lines and devices: Endotracheal tube has been pulled back and is 10 cm above the anselmo near the thoracic inlet. IMPRESSION: Endotracheal tube has been pulled back and is 10 cm above the anselmo near the thoracic inlet. Remainder findings are stable. may need thoracentesis soon Moderate size right pleural effusion with right upper and lower lobe atelectasis/consolidation, as well as mild pulmonary edema.. (3) Sepsis Assessment & Plan: Pt cachetic and presented on admission with multiple pressure injuries. Partial thickness pressure injury Cleft of L ear(L)1.2cm x (W)0.4cm. Base of wound moist and viable with small amt sanguineous exudate. Partial thickness pressure injury cleft of R ear(L)0.5cm x (W)0.7cm. Base of wound moist and viable Periwound erythematous.Small amt sanguineous exudate noted. Sacral DTPI(L)5cm x (W)10.5cm. Base of injury is purple with maroon borders. Coccygeal bony protrusion with darker skin tone, and small opening noted to R gluteus (L)0.5cm x (W)0.5cm within base of injury. No further skin breakdown periwound. Intact blood blister noted to R 1st metatarsal head(L)1.1cm x (W)2.5cm. DTPI noted to L heel extending into plantar aspect. Base of injury presents as an intact blood filled blister. Periwound is boggy with non-blanching erythema. R heel is boggy but blanchable. wounds unlikely etiology of sepsis respiratory but given current condition high risk for breakdown and worsening will monitor closely discussed with RN and staff great care being provided coded acls intubated in ICU prognosis guarded Tx.Plan: Apply Betadine to clefts of R and L ears. Pad oxygen tubing with gauze and keep oxygen tubing loose. Apply Moisture Barrier Paste to Sacrum. Cover with Optifoam drsg. Change every 3 days and prn. Apply Betadine to L heel. Cover with Optifoam drsg. Change every 3 days and prn. Apply Betadine to R 1st metatarsal head. Cover with Optifoam drsg. Change every 3 days and prn. Apply Cavilon Skin Barrier R heel. Cover with Optifoam drsg. Change every 7 days and prn. Reposition at least every 2hours or as tolerated. Off-load heels with pillow. 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 * Increased kcal/prot intake needs R/T suspected significant wt loss and underweight status, wounds as evidenced by 10lbs/6.7% wt loss in 1 month, 76% IBW w/ BMI of 18.4, admitted w/ DTPI wound @ sacrum, Lt heel, partial thickness pressure injury cleft of R L ear. CURRENT TF:Osmolite 1.2 @ 60ml/hr x 22 hrs ENTERAL NUTRITION RECOMMENDATIONS: Osmolite 1.2 @ 60ml/hr x 22 hrs + Prosource x 1 to provide 1320ml, 1584kcal, 73g +11g prot, 1082ml free water - Add Prosource x 1 to meet protein needs - HOLD 1 hr before and after synthroid meds. add Prosource 1 pack daily to better meet est pro needs - Flush per MD/ HOB over 30 degrees WITH ELEV BG, rec TF change to Glucerna 1.2 w/ a goal of 60ml/hr x22 hrs to provide 1320ml, 1584kcal, 79g prot ADDITIONAL RECOMMENDATIONS: * PER SNF: HT=6'1" WT= 139lbs ("August weight" from SNF) -> calibrated bedscale wt * Monitor K, need for TF change (K 5.9 upon adm, now wnl) * Wound care: add Vit C 500mg QD + Wesley 1pkt BID via PEG * Monitor BGs, need for NISS: h/o DM per MD (checking A1C not suggested given low hgb) (19) Encounter for PEG (percutaneous endoscopic gastrostomy) (20) At high risk for aspiration (21) Pleural effusion (22) Suspected COVID-19 virus infection Jan Mora Sep 29, 2019 15:35
--- NOTE | 2019-09-29 16:09 | Internal Med Progress Note ---
Subjective Date of Service: Sep 29, 2019 Physician Name Xander Bah Attending Physician Lamont Hayes MD Current Medications Medications (Trade) Dose Ordered Sig/Kike Route PRN Reason Start Time Stop Time Status Last Admin Dose Admin Acetaminophen (Tylenol) 650 mg Q4H PRN ORAL fever 09/24/19 03:00 10/07/19 02:54 Amlodipine Besylate (Norvasc) 5 mg BID@0900,2100 NG 09/24/19 21:00 10/22/19 08:59 09/29/19 09:53 Heparin Sodium (Porcine) (Heparin 5000 units/ml) 5,000 units EVERY 12 HOURS SUBQ 09/24/19 09:00 10/22/19 08:59 09/28/19 21:12 Levothyroxine Sodium (Synthroid) 75 mcg DAILY@0630 ORAL 09/24/19 06:30 10/07/19 08:29 09/29/19 05:41 Nitroglycerin (Ntg) 0.4 mg Q5M PRN SL Prn Chest Pain 09/24/19 02:30 10/07/19 04:29 Ondansetron HCl (Zofran) 4 mg Q6H PRN IVP Nausea & Vomiting 09/24/19 03:00 10/07/19 02:57 09/28/19 21:10 Pantoprazole (Protonix) 40 mg Q12HR IVP 09/24/19 09:00 10/10/19 08:59 09/29/19 09:52 Polyethylene Glycol (Miralax) 17 gm DAILYPRN PRN ORAL Constipation 09/24/19 03:00 10/07/19 02:57 Promethazine HCl/ Codeine (Phenergan with Codeine) 5 ml Q4H PRN ORAL For Cough 09/24/19 03:00 10/07/19 02:58 Quetiapine Fumarate (SEROqueL) 25 mg Q8H PRN NG Agitation 09/24/19 02:35 10/30/19 02:34 Allergies: Coded Allergies: PENICILLINS (Verified Allergy, Unknown, 10/27/18) tolretas cephalosporins ROS Limited/Unobtainable: Yes Subjective 84 YO M admitted with cough and congestion. Cover for Int Med-Dr Hayes. Reintubated 09/24/19 after cardiopulmonary arrest-see code blue note. ICU Objective Last Vital Signs Date Time Temp Pulse Resp B/P (MAP) Pulse Ox O2 Delivery O2 Flow Rate FiO2 09/29/19 15:00 73 26 125/42 (69) 98 09/29/19 14:30 40 09/29/19 12:00 Mechanical Ventilator 09/29/19 12:00 99.0 09/23/19 21:00 3.0 Laboratory Tests Test 09/29/19 03:50 09/29/19 08:20 White Blood Count 8.9 K/UL (4.8-10.8) Red Blood Count 2.91 M/UL (4.70-6.10) L Hemoglobin 7.8 G/DL (14.2-18.0) L Hematocrit 23.9 % (42.0-52.0) L Mean Corpuscular Volume 82 FL (80-99) Mean Corpuscular Hemoglobin 26.9 PG (27.0-31.0) L Mean Corpuscular Hemoglobin Concent 32.8 G/DL (32.0-36.0) Red Cell Distribution Width 17.5 % (11.6-14.8) H Platelet Count 513 K/UL (150-450) H Mean Platelet Volume 5.3 FL (6.5-10.1) L Neutrophils (%) (Auto) % (45.0-75.0) Lymphocytes (%) (Auto) % (20.0-45.0) Monocytes (%) (Auto) % (1.0-10.0) Eosinophils (%) (Auto) % (0.0-3.0) Basophils (%) (Auto) % (0.0-2.0) Sodium Level 138 MMOL/L (136-145) Potassium Level 4.2 MMOL/L (3.5-5.1) Chloride Level 104 MMOL/L (98-107) Carbon Dioxide Level 26 MMOL/L (21-32) Anion Gap 8 mmol/L (5-15) Blood Urea Nitrogen 22 mg/dL (7-18) H Creatinine 1.2 MG/DL (0.55-1.30) Estimat Glomerular Filtration Rate > 60 mL/min (>60) Glucose Level 110 MG/DL (74-106) H Calcium Level 8.4 MG/DL (8.5-10.1) L Phosphorus Level 3.1 MG/DL (2.5-4.9) Magnesium Level 2.0 MG/DL (1.8-2.4) Total Bilirubin 0.4 MG/DL (0.2-1.0) Aspartate Amino Transf (AST/SGOT) 98 U/L (15-37) H Alanine Aminotransferase (ALT/SGPT) 65 U/L (12-78) Alkaline Phosphatase 187 U/L (46-116) H Total Protein 6.6 G/DL (6.4-8.2) Albumin 1.5 G/DL (3.4-5.0) L Globulin 5.1 g/dL Albumin/Globulin Ratio 0.3 (1.0-2.7) L Arterial Blood pH 7.496 (7.350-7.450) Arterial Blood Partial Pressure CO2 33.8 mmHg (35.0-45.0) L Arterial Blood Partial Pressure O2 109.2 mmHg (75.0-100.0) H Arterial Blood HCO3 25.5 mmol/L (22.0-26.0) Arterial Blood Oxygen Saturation 97.7 % (95-100) Arterial Blood Base Excess 2.3 (-2-2) H Watson Test Positive Intake and Output 09/28/19 09/29/19 19:00 07:00 Intake Total 360 ml 810 ml Output Total 465 ml 565 ml Balance -105 ml 245 ml Tube Feeding 360 ml 660 ml Other 150 ml Output Urine Total 465 ml 565 ml Objective PHYSICAL EXAMINATION: GENERAL: The patient is a thin-appearing male, in no apparent distress. HEENT: Eyes, pupils are equal and responsive to light and accommodation. Extraocular movements are intact. NECK: Supple without lymphadenopathy. CHEST: Mech vent; Lungs are clear to auscultation bilaterally with decreased breath sounds on the right. There are no wheezes appreciated. ABDOMEN: Soft, nontender, and nondistended. Positive bowel sounds. No evidence of hepatosplenomegaly. Currently, no rebound or guarding noted. EXTREMITIES: Negative for clubbing, cyanosis, or edema. RECTAL/GENITAL: Not performed. NEUROLOGIC: Cranial nerves II through XII are grossly intact without focal deficits. Assessment/Plan Assessment/Plan ASSESSMENT: This is an 84-year-old male with: 1. Possible right pneumonia=pseudamonas 2. Urinary tract infection=jennifer 3. Right pleural effusion. 4. Esophageal mass. 5. Dysphagia. 6. Diabetes. 7. Alzheimer's dementia. 8. Cerebrovascular disease. 9. Hypothyroidism. 10. Seizure disorder. 11. Iron deficiency anemia. 13. Respiratory failure 14. S/P cardiopulmonary arrest 15. Anemia TREATMENT: 1. Right perihilar Pneumonia/pleural effusion. COVID 19 and Influenza negative. A Pulmonary consultation has been obtained with Dr. Vania Hui. S/P right thoracentesis 09/19/19. We will follow recommendation of Pulmonary. ID=Dr Roach ABX= S/P cefepime 2. Urinary tract infection. . A urine culture =jennifer 3. Right pleural effusion. As above, a Pulmonary consultation has been obtained with Dr. Vania Hui. The patient may require thoracentesis during this hospitalization. 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 A Gastroenterology consultation has been obtained with Dr. Darrick Rosario. 5. Dysphagia. The patient is status post PEG placement on 08/08/2019 at [facility] by Dr. Darrick Rosario. 6. Diabetes type 2. A NovoLog sliding scale has been instituted. 7. Alzheimer's dementia. 8. Cerebrovascular disease, status post cerebrovascular accident. 9. Hypothyroidism. Continue levothyroxine as above. 10. Seizure disorder. 11. Iron deficiency anemia. 12. reintubated 09/24/19-see code blue note 13. S/P transfusion 2 units PRBC Xander Bah MD Sep 29, 2019 16:09
[2019-09-30] VITALS (24 sets, daily range): BP systolic 105–138; BP diastolic 43–64
[2019-09-30 06:17] LABS: BASOPHILS % (AUTO) 0.7 % (0.0-2.0); EOSINOPHILS % (AUTO) 2.4 % (0.0-3.0); HEMATOCRIT 26.1 % (42.0-52.0); HEMOGLOBIN 8.5 G/DL (14.2-18.0); LYMPHOCYTES % (AUTO) 11.8 % (20.0-45.0); MEAN CORPUSCULAR VOLUME 82 FL (80-99); MONOCYTES % (AUTO) 7.7 % (1.0-10.0); NEUTROPHILS % (AUTO) 77.4 % (45.0-75.0); PLATELET COUNT 504 K/UL (150-450); RED BLOOD COUNT 3.18 M/UL (4.70-6.10); RED CELL DISTRIBUTION WIDTH 17.4 % (11.6-14.8); WHITE BLOOD COUNT 10.2 K/UL (4.8-10.8)
[2019-09-30 06:54] LABS: ALANINE AMINOTRANSFERASE 66 U/L (12-78); ALBUMIN 1.5 G/DL (3.4-5.0); ALBUMIN/GLOBULIN RATIO 0.3 (1.0-2.7); ALKALINE PHOSPHATASE 221 U/L (46-116); ANION GAP 9 mmol/L (5-15); ASPARTATE AMINO TRANSFERASE 77 U/L (15-37); BILIRUBIN,TOTAL 0.3 MG/DL (0.2-1.0); BLOOD UREA NITROGEN 22 mg/dL (7-18); CALCIUM 8.7 MG/DL (8.5-10.1); CARBON DIOXIDE 26 MMOL/L (21-32); CHLORIDE 104 MMOL/L (98-107); CREATININE 1.1 MG/DL (0.55-1.30); PHOSPHORUS 3.3 MG/DL (2.5-4.9); POTASSIUM 4.1 MMOL/L (3.5-5.1); SODIUM 139 MMOL/L (136-145)
[2019-09-30] MEDS: Heparin 5000 units/ml inj SUBQ SCH ×2 (09:21→21:38)
[2019-09-30] MEDS: Pantoprazole Inj IVP SCH ×2 (09:21→21:36)
--- NOTE | 2019-09-30 09:32 | Diagnostic Imaging Report ---
Indication: Dyspnea Technique: One view of the chest Comparison: 09/29/2019 Findings: Increasing right mid and lower lung opacity noted. There is persistent left basilar consolidation and possibly pleural fluid. Stable satisfactory position of endotracheal tube. Impression: Increasing right mid and lower lung opacity, may indicate increasing pleural fluid, increasing infiltrate, or both.
--- NOTE | 2019-09-30 10:57 | Nephrology Progress Note ---
Assessment/Plan Problem List: (1) RAMAN (acute kidney injury) Assessment: Serum creatinine normalized with hydration (2) Dehydration (3) Suspected COVID-19 virus infection (4) Anemia (5) Sepsis (6) Diabetes mellitus (7) Hypothyroidism Assessment - Acute renal failure - Severe anemia - Sepsis, pneumonia, acute respiratory failure, suspected: Viewed 19 virus infection - Diabetes mellitus - Hypothyroidism - Feeding by G-tube - Squamous cell esophageal cancer - History of CVA (cerebrovascular accident) Plan Patient was coded early September 23 morning and back in ICU intubated Serum creatinine miguel to 1.5, now back to normal Stable from renal standpoint of view at this point Previously: Pneumonia SARS-CoV neg x2 MRSA screen pos sp cx: PSA and proteus Changes Seroquel to "as needed" due to bradycardia Discontinue IV fluid Monitor renal parameters, serum creatinine Adjust electrolytes with supplements Increase Synthroid dose Avoid nephrotoxic's as possible Ventilator management Urine studies Per orders Subjective ROS Limited/Unobtainable: Yes Objective Objective Last 24 Hour Vital Signs Date Time Temp Pulse Resp B/P (MAP) Pulse Ox O2 Delivery O2 Flow Rate FiO2 09/30/19 09:30 71 18 40 40 09/30/19 09:22 69 127/49 09/30/19 09:00 71 24 127/49 (75) 100 09/30/19 08:00 73 09/30/19 08:00 99.0 75 30 124/54 (77) 100 09/30/19 07:43 Mechanical Ventilator 09/30/19 07:40 40 09/30/19 07:25 79 27 40 40 09/30/19 07:25 100 09/30/19 07:00 73 13 118/47 (70) 100 09/30/19 06:30 73 13 09/30/19 06:00 71 13 124/58 (80) 100 09/30/19 05:06 72 15 40 09/30/19 05:00 70 14 124/52 (76) 100 09/30/19 04:00 40 09/30/19 04:00 72 09/30/19 04:00 98.8 72 12 117/50 (72) 100 09/30/19 04:00 Mechanical Ventilator 09/30/19 03:00 143 17 40 09/30/19 03:00 149 17 138/64 (88) 100 09/30/19 02:00 70 16 109/47 (67) 100 09/30/19 01:02 67 22 40 09/30/19 01:00 74 18 122/43 (69) 100 09/30/19 00:00 98.8 65 13 115/47 (69) 100 09/30/19 00:00 40 09/30/19 00:00 Mechanical Ventilator 09/30/19 00:00 65 09/29/19 23:24 65 14 40 09/29/19 23:00 66 18 111/41 (64) 100 09/29/19 22:15 65 15 40 09/29/19 22:00 65 15 116/43 (67) 100 09/29/19 21:00 67 15 110/44 (66) 100 09/29/19 20:52 66 119/37 09/29/19 20:28 66 13 40 09/29/19 20:15 65 09/29/19 20:00 Mechanical Ventilator 09/29/19 20:00 98.7 66 16 119/37 (64) 100 09/29/19 20:00 40 09/29/19 19:00 68 16 54/45 (48) 100 09/29/19 18:00 66 14 108/45 (66) 100 09/29/19 17:00 74 19 148/48 (81) 100 09/29/19 16:00 Mechanical Ventilator 09/29/19 16:00 78 09/29/19 16:00 40 09/29/19 16:00 71 17 115/44 (67) 100 09/29/19 15:00 73 26 125/42 (69) 98 09/29/19 14:30 74 24 40 09/29/19 14:00 67 26 116/44 (68) 100 09/29/19 13:00 65 28 118/40 (66) 100 09/29/19 12:46 71 35 40 09/29/19 12:00 Mechanical Ventilator 09/29/19 12:00 100 09/29/19 12:00 40 09/29/19 12:00 99.0 66 15 111/48 (69) 100 09/29/19 11:00 65 17 103/42 (62) 100 Intake and Output 09/29/19 09/30/19 19:00 07:00 Intake Total 720 ml 660 ml Output Total 525 ml 445 ml Balance 195 ml 215 ml Tube Feeding 720 ml 440 ml Other 220 ml Output Urine Total 525 ml 445 ml Laboratory Tests 09/30/19 03:54: White Blood Count 10.2, Red Blood Count 3.18L, Hemoglobin 8.5L, Hematocrit 26.1L , Mean Corpuscular Volume 82, Mean Corpuscular Hemoglobin 26.9L, Mean Corpuscular Hemoglobin Concent 32.7, Red Cell Distribution Width 17.4H, Platelet Count 504H, Mean Platelet Volume 5.5L, Neutrophils (%) (Auto) 77.4H, Lymphocytes (%) (Auto) 11.8L, Monocytes (%) (Auto) 7.7, Eosinophils (%) (Auto) 2.4, Basophils (%) (Auto) 0.7, Sodium Level 139, Potassium Level 4.1, Chloride Level 104, Carbon Dioxide Level 26, Anion Gap 9, Blood Urea Nitrogen 22H, Creatinine 1.1, Estimat Glomerular Filtration Rate > 60, Glucose Level 129H, Calcium Level 8.7, Phosphorus Level 3.3, Magnesium Level 2.1, Total Bilirubin 0.3, Aspartate Amino Transf (AST/SGOT) 77H, Alanine Aminotransferase (ALT/SGPT) 66, Alkaline Phosphatase 221H, Total Protein 7.0, Albumin 1.5L, Globulin 5.5, Albumin/Globulin Ratio 0.3L 09/30/19 08:15: Arterial Blood pH 7.488H, Arterial Blood Partial Pressure CO2 35.6, Arterial Blood Partial Pressure O2 122.5H, Arterial Blood HCO3 26.4H, Arterial Blood Oxygen Saturation 97.5, Arterial Blood Base Excess 3.0H, Watson Test Positive Height (Feet): 5 Height (Inches): 11.00 Weight (Pounds): 153 General Appearance: no apparent distress EENT: other - Intubated and vented Cardiovascular: normal rate Respiratory/Chest: decreased breath sounds Abdomen: distended Objective no change Clovis Benites MD Sep 30, 2019 10:57
--- NOTE | 2019-09-30 11:29 | Infectious Diseases Prog Note ---
Assessment/Plan Assessment/Plan 09/23 SP asystole cardiac arrest VDRF 09/23 low grade fever x1 No leukocytosis PNA VDRF, sp intubation 09/08, sp extubation 09/18, now on NC SARS-CoV neg x2 MRSA screen pos sp cx: PSA (hensley S) and proteus (hensley S) 09/29 CXR: Increasing right mid and lower lung opacity, may indicate increasing pleural fluid, increasing infiltrate, or both. 09/28 CXR: Developing hazy right basilar opacity. This could represent reaching layering pleural fluid. This could also represent reexpansion pulmonary edema given recent high-volume thoracentesis, or could represent developing ammonia or pulmonary edema. Hazy left basilar opacity, unchanged, may reflect parenchymal infiltrate versus pleural fluid versus both 09/25 CXR: Large right pleural effusion is again demonstrated. Small left pleural effusion is again demonstrated. Left lung is otherwise clear. sp cx PsA (R zozyn, S levo, gentamycin) 09/24 CXR: Moderate size right pleural effusion with right upper and lower lobe atelectasis/consolidation, as well as mild pulmonary edema.. 09/17 CXR: Similar bilateral interstitial prominence, greater on the right.Stable right perihilar, mid and lower lung opacities. Similar left lung base opacity. Small left pleural effusion is stable. Loculated right pleural effusion is stable. No pneumothorax. CXR: Right pleural effusion, also demonstrated on prior 08/09/2019 exam, slightly increased. Hazy right lung parenchymal opacity probably represents a superimposed pleural fluid but infiltrate also possible. R pleural effusion, exudative -09/18 SP thorancetesis; removal of 2050 mL fluid; Fluid prot 5 (serum prot 7.2 ); cx Neg QTc 419 RAMAN, improving DM HTN CVA Dementia Nonverbal G tube Plan: Start Levaquin 09/19 SPcefepime # 09/09 SP vanc #4 ( Cr increased) ICU care monitor temp and CBC DC COVID isolation isolation precaution per hospital protocol DW RN Thank you for this consult. [facility] will continue to follow the patient with you. Subjective Allergies: Coded Allergies: PENICILLINS (Verified Allergy, Unknown, 10/27/18) tolretas cephalosporins Subjective afebrile>36hr no leukocytosis off abx Objective Vital Signs Last 24 Hour Vital Signs Date Time Temp Pulse Resp B/P (MAP) Pulse Ox O2 Delivery O2 Flow Rate FiO2 09/30/19 09:30 71 18 40 40 09/30/19 09:22 69 127/49 09/30/19 09:00 71 24 127/49 (75) 100 09/30/19 08:00 73 09/30/19 08:00 99.0 75 30 124/54 (77) 100 09/30/19 07:43 Mechanical Ventilator 09/30/19 07:40 40 09/30/19 07:25 79 27 40 40 09/30/19 07:25 100 09/30/19 07:00 73 13 118/47 (70) 100 09/30/19 06:30 73 13 09/30/19 06:00 71 13 124/58 (80) 100 09/30/19 05:06 72 15 40 09/30/19 05:00 70 14 124/52 (76) 100 09/30/19 04:00 40 09/30/19 04:00 72 09/30/19 04:00 98.8 72 12 117/50 (72) 100 09/30/19 04:00 Mechanical Ventilator 09/30/19 03:00 143 17 40 09/30/19 03:00 149 17 138/64 (88) 100 09/30/19 02:00 70 16 109/47 (67) 100 09/30/19 01:02 67 22 40 09/30/19 01:00 74 18 122/43 (69) 100 09/30/19 00:00 98.8 65 13 115/47 (69) 100 09/30/19 00:00 40 09/30/19 00:00 Mechanical Ventilator 09/30/19 00:00 65 09/29/19 23:24 65 14 40 09/29/19 23:00 66 18 111/41 (64) 100 09/29/19 22:15 65 15 40 09/29/19 22:00 65 15 116/43 (67) 100 09/29/19 21:00 67 15 110/44 (66) 100 09/29/19 20:52 66 119/37 09/29/19 20:28 66 13 40 09/29/19 20:15 65 09/29/19 20:00 Mechanical Ventilator 09/29/19 20:00 98.7 66 16 119/37 (64) 100 09/29/19 20:00 40 09/29/19 19:00 68 16 54/45 (48) 100 09/29/19 18:00 66 14 108/45 (66) 100 09/29/19 17:00 74 19 148/48 (81) 100 09/29/19 16:00 Mechanical Ventilator 09/29/19 16:00 78 09/29/19 16:00 40 09/29/19 16:00 71 17 115/44 (67) 100 09/29/19 15:00 73 26 125/42 (69) 98 09/29/19 14:30 74 24 40 09/29/19 14:00 67 26 116/44 (68) 100 09/29/19 13:00 65 28 118/40 (66) 100 09/29/19 12:46 71 35 40 09/29/19 12:00 Mechanical Ventilator 09/29/19 12:00 100 09/29/19 12:00 40 09/29/19 12:00 99.0 66 15 111/48 (69) 100 Height (Feet): 5 Height (Inches): 11.00 Weight (Pounds): 153 Objective Gen: NAD. well nourished HEENT: ETT. oral secretions Resp: coarse. equal chest rise. regular rate and rhythm. Abd: Soft. no TTP. nondistended. G tube site c/d/i. Neuro: opens eyes to voice and follows simple commands Laboratory Tests Test 09/30/19 03:54 09/30/19 08:15 White Blood Count 10.2 K/UL (4.8-10.8) Red Blood Count 3.18 M/UL (4.70-6.10) L Hemoglobin 8.5 G/DL (14.2-18.0) L Hematocrit 26.1 % (42.0-52.0) L Mean Corpuscular Volume 82 FL (80-99) Mean Corpuscular Hemoglobin 26.9 PG (27.0-31.0) L Mean Corpuscular Hemoglobin Concent 32.7 G/DL (32.0-36.0) Red Cell Distribution Width 17.4 % (11.6-14.8) H Platelet Count 504 K/UL (150-450) H Mean Platelet Volume 5.5 FL (6.5-10.1) L Neutrophils (%) (Auto) 77.4 % (45.0-75.0) H Lymphocytes (%) (Auto) 11.8 % (20.0-45.0) L Monocytes (%) (Auto) 7.7 % (1.0-10.0) Eosinophils (%) (Auto) 2.4 % (0.0-3.0) Basophils (%) (Auto) 0.7 % (0.0-2.0) Sodium Level 139 MMOL/L (136-145) Potassium Level 4.1 MMOL/L (3.5-5.1) Chloride Level 104 MMOL/L (98-107) Carbon Dioxide Level 26 MMOL/L (21-32) Anion Gap 9 mmol/L (5-15) Blood Urea Nitrogen 22 mg/dL (7-18) H Creatinine 1.1 MG/DL (0.55-1.30) Estimat Glomerular Filtration Rate > 60 mL/min (>60) Glucose Level 129 MG/DL (74-106) H Calcium Level 8.7 MG/DL (8.5-10.1) Phosphorus Level 3.3 MG/DL (2.5-4.9) Magnesium Level 2.1 MG/DL (1.8-2.4) Total Bilirubin 0.3 MG/DL (0.2-1.0) Aspartate Amino Transf (AST/SGOT) 77 U/L (15-37) H Alanine Aminotransferase (ALT/SGPT) 66 U/L (12-78) Alkaline Phosphatase 221 U/L (46-116) H Total Protein 7.0 G/DL (6.4-8.2) Albumin 1.5 G/DL (3.4-5.0) L Globulin 5.5 g/dL Albumin/Globulin Ratio 0.3 (1.0-2.7) L Arterial Blood pH 7.488 (7.350-7.450) Arterial Blood Partial Pressure CO2 35.6 mmHg (35.0-45.0) Arterial Blood Partial Pressure O2 122.5 mmHg (75.0-100.0) H Arterial Blood HCO3 26.4 mmol/L (22.0-26.0) H Arterial Blood Oxygen Saturation 97.5 % (95-100) Arterial Blood Base Excess 3.0 (-2-2) H Watson Test Positive Current Medications Medications (Trade) Dose Ordered Sig/Kike Route PRN Reason Start Time Stop Time Status Last Admin Dose Admin Acetaminophen (Tylenol) 650 mg Q4H PRN ORAL fever 09/24/19 03:00 10/07/19 02:54 Amlodipine Besylate (Norvasc) 5 mg BID@0900,2100 NG 09/24/19 21:00 10/22/19 08:59 09/30/19 09:22 Heparin Sodium (Porcine) (Heparin 5000 units/ml) 5,000 units EVERY 12 HOURS SUBQ 09/24/19 09:00 10/22/19 08:59 09/30/19 09:21 Levothyroxine Sodium (Synthroid) 75 mcg DAILY@0630 ORAL 09/24/19 06:30 10/07/19 08:29 09/30/19 05:38 Nitroglycerin (Ntg) 0.4 mg Q5M PRN SL Prn Chest Pain 09/24/19 02:30 10/07/19 04:29 Ondansetron HCl (Zofran) 4 mg Q6H PRN IVP Nausea & Vomiting 09/24/19 03:00 10/07/19 02:57 09/28/19 21:10 Pantoprazole (Protonix) 40 mg Q12HR IVP 09/24/19 09:00 10/10/19 08:59 09/30/19 09:21 Polyethylene Glycol (Miralax) 17 gm DAILYPRN PRN ORAL Constipation 09/24/19 03:00 10/07/19 02:57 Promethazine HCl/ Codeine (Phenergan with Codeine) 5 ml Q4H PRN ORAL For Cough 09/24/19 03:00 10/07/19 02:58 Quetiapine Fumarate (SEROqueL) 25 mg Q8H PRN NG Agitation 09/24/19 02:35 10/30/19 02:34 09/30/19 03:10 Danielle Roach M.D. Sep 30, 2019 11:29
[2019-09-30] MEDS ORDERED: Levofloxacin 750mg tab ORAL SCH (11:30)
--- NOTE | 2019-09-30 11:46 | Pulmonolgy Critical Care Note ---
Critical Care - Asmt/Plan Problems: (1) Acute respiratory failure Assessment & Plan: got reintubated (2) Pleural effusion (3) Suspected COVID-19 virus infection (4) Nosocomial pneumonia (5) Sepsis (6) Squamous cell esophageal cancer (7) Diabetes mellitus (8) At high risk for aspiration (9) Severe malnutrition (10) Alzheimer's dementia (11) History of CVA (cerebrovascular accident) (12) Feeding by G-tube Respiratory: monitor respiratory rate, adjust FIO2, CXR, other - continue weaing Cardiac: continue pressors, continue to monitor HR/BP Renal: F/U I&O, check electrolytes Infectious Disease: check cultures Gastrointestinal: continue feedings/current rate, hold feedings Endocrine: monitor blood sugar Neurologic: PRN Ativan Affect: PRN ativan Prophylaxis: Heparin Time Spent (Minutes): 40 Notes Reviewed: medical staff director, cardio, 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 with: nurses, consultants, bilingual patient support caseworkerdesign project manager - Objective Last 24 Hour Vital Signs Date Time Temp Pulse Resp B/P (MAP) Pulse Ox O2 Delivery O2 Flow Rate FiO2 09/30/19 11:00 68 30 113/46 (68) 100 09/30/19 10:00 74 29 124/46 (72) 100 09/30/19 09:30 71 18 40 40 09/30/19 09:22 69 127/49 09/30/19 09:00 71 24 127/49 (75) 100 09/30/19 08:00 73 09/30/19 08:00 99.0 75 30 124/54 (77) 100 09/30/19 07:43 Mechanical Ventilator 09/30/19 07:40 40 09/30/19 07:25 79 27 40 40 09/30/19 07:25 100 09/30/19 07:00 73 13 118/47 (70) 100 09/30/19 06:30 73 13 09/30/19 06:00 71 13 124/58 (80) 100 09/30/19 05:06 72 15 40 09/30/19 05:00 70 14 124/52 (76) 100 09/30/19 04:00 40 09/30/19 04:00 72 09/30/19 04:00 98.8 72 12 117/50 (72) 100 09/30/19 04:00 Mechanical Ventilator 09/30/19 03:00 143 17 40 09/30/19 03:00 149 17 138/64 (88) 100 09/30/19 02:00 70 16 109/47 (67) 100 09/30/19 01:02 67 22 40 09/30/19 01:00 74 18 122/43 (69) 100 09/30/19 00:00 98.8 65 13 115/47 (69) 100 09/30/19 00:00 40 09/30/19 00:00 Mechanical Ventilator 09/30/19 00:00 65 09/29/19 23:24 65 14 40 09/29/19 23:00 66 18 111/41 (64) 100 09/29/19 22:15 65 15 40 09/29/19 22:00 65 15 116/43 (67) 100 09/29/19 21:00 67 15 110/44 (66) 100 09/29/19 20:52 66 119/37 09/29/19 20:28 66 13 40 09/29/19 20:15 65 09/29/19 20:00 Mechanical Ventilator 09/29/19 20:00 98.7 66 16 119/37 (64) 100 09/29/19 20:00 40 09/29/19 19:00 68 16 54/45 (48) 100 09/29/19 18:00 66 14 108/45 (66) 100 09/29/19 17:00 74 19 148/48 (81) 100 09/29/19 16:00 Mechanical Ventilator 09/29/19 16:00 78 09/29/19 16:00 40 09/29/19 16:00 71 17 115/44 (67) 100 09/29/19 15:00 73 26 125/42 (69) 98 09/29/19 14:30 74 24 40 09/29/19 14:00 67 26 116/44 (68) 100 09/29/19 13:00 65 28 118/40 (66) 100 09/29/19 12:46 71 35 40 09/29/19 12:00 Mechanical Ventilator 09/29/19 12:00 100 09/29/19 12:00 40 09/29/19 12:00 99.0 66 15 111/48 (69) 100 Status: somnolent HEENT: atraumatic Neck: full ROM Heart: HR/BP stable, HR/BP unstable Abdomen: soft, non-tender Extremities: no C/C/E, edema Decubiti: location Critical Care - Subjective ROS Limited/Unobtainable: Yes Condition: critical EKG Rhythm: Sinus Rhythm FI02: 40 Vent Support Breath Rate: 12 Vent Support Mode: CPAP Vent Tidal Volume: 550 Sputum Amount: Small PEEP: 5.0 PIP: 15 Tube Feeding Amount: 0 I&O: Intake and Output 09/29/19 09/30/19 19:00 07:00 Intake Total 720 ml 660 ml Output Total 525 ml 445 ml Balance 195 ml 215 ml Tube Feeding 720 ml 440 ml Other 220 ml Output Urine Total 525 ml 445 ml CXR: increasing effusion and bilateral infiltrate ET-Tube: 7.5 ET Position: 26 Labs: Laboratory Tests Test 09/30/19 03:54 09/30/19 08:15 White Blood Count 10.2 K/UL (4.8-10.8) Red Blood Count 3.18 M/UL (4.70-6.10) L Hemoglobin 8.5 G/DL (14.2-18.0) L Hematocrit 26.1 % (42.0-52.0) L Mean Corpuscular Volume 82 FL (80-99) Mean Corpuscular Hemoglobin 26.9 PG (27.0-31.0) L Mean Corpuscular Hemoglobin Concent 32.7 G/DL (32.0-36.0) Red Cell Distribution Width 17.4 % (11.6-14.8) H Platelet Count 504 K/UL (150-450) H Mean Platelet Volume 5.5 FL (6.5-10.1) L Neutrophils (%) (Auto) 77.4 % (45.0-75.0) H Lymphocytes (%) (Auto) 11.8 % (20.0-45.0) L Monocytes (%) (Auto) 7.7 % (1.0-10.0) Eosinophils (%) (Auto) 2.4 % (0.0-3.0) Basophils (%) (Auto) 0.7 % (0.0-2.0) Sodium Level 139 MMOL/L (136-145) Potassium Level 4.1 MMOL/L (3.5-5.1) Chloride Level 104 MMOL/L (98-107) Carbon Dioxide Level 26 MMOL/L (21-32) Anion Gap 9 mmol/L (5-15) Blood Urea Nitrogen 22 mg/dL (7-18) H Creatinine 1.1 MG/DL (0.55-1.30) Estimat Glomerular Filtration Rate > 60 mL/min (>60) Glucose Level 129 MG/DL (74-106) H Calcium Level 8.7 MG/DL (8.5-10.1) Phosphorus Level 3.3 MG/DL (2.5-4.9) Magnesium Level 2.1 MG/DL (1.8-2.4) Total Bilirubin 0.3 MG/DL (0.2-1.0) Aspartate Amino Transf (AST/SGOT) 77 U/L (15-37) H Alanine Aminotransferase (ALT/SGPT) 66 U/L (12-78) Alkaline Phosphatase 221 U/L (46-116) H Total Protein 7.0 G/DL (6.4-8.2) Albumin 1.5 G/DL (3.4-5.0) L Globulin 5.5 g/dL Albumin/Globulin Ratio 0.3 (1.0-2.7) L Arterial Blood pH 7.488 (7.350-7.450) Arterial Blood Partial Pressure CO2 35.6 mmHg (35.0-45.0) Arterial Blood Partial Pressure O2 122.5 mmHg (75.0-100.0) H Arterial Blood HCO3 26.4 mmol/L (22.0-26.0) H Arterial Blood Oxygen Saturation 97.5 % (95-100) Arterial Blood Base Excess 3.0 (-2-2) H Watson Test Positive Vania Hui MD Sep 30, 2019 11:46
[2019-09-30] MEDS: Levofloxacin 750mg tab ORAL SCH (13:24)
--- NOTE | 2019-09-30 13:46 | General Progress Note ---
Assessment/Plan Assessment/Plan: 1. Esophageal cancer. 2. Dysphagia. 3. Diabetes type 2. 4. Dementia. 5. CVA. 6. Hypothyroidism. 7. Seizure disorder. 8. Iron deficiency anemia. 9. Respiratory failure. 10. Dysphagia with G-tube stable H&H GT has been changed and working well GT flushes abx per id pulm care will fu Subjective ROS Limited/Unobtainable: No Allergies: Coded Allergies: PENICILLINS (Verified Allergy, Unknown, 10/27/18) tolretas cephalosporins Objective Last 24 Hour Vital Signs Date Time Temp Pulse Resp B/P (MAP) Pulse Ox O2 Delivery O2 Flow Rate FiO2 09/30/19 12:30 74 18 40 09/30/19 12:00 74 09/30/19 12:00 98.9 75 38 109/55 (73) 100 09/30/19 12:00 40 09/30/19 12:00 Mechanical Ventilator 09/30/19 11:00 68 30 113/46 (68) 100 09/30/19 10:00 74 29 124/46 (72) 100 09/30/19 09:30 71 18 40 40 09/30/19 09:22 69 127/49 09/30/19 09:00 71 24 127/49 (75) 100 09/30/19 08:00 73 09/30/19 08:00 99.0 75 30 124/54 (77) 100 09/30/19 07:43 Mechanical Ventilator 09/30/19 07:40 40 09/30/19 07:25 79 27 40 40 09/30/19 07:25 100 09/30/19 07:00 73 13 118/47 (70) 100 09/30/19 06:30 73 13 09/30/19 06:00 71 13 124/58 (80) 100 09/30/19 05:06 72 15 40 09/30/19 05:00 70 14 124/52 (76) 100 09/30/19 04:00 40 09/30/19 04:00 72 09/30/19 04:00 98.8 72 12 117/50 (72) 100 09/30/19 04:00 Mechanical Ventilator 09/30/19 03:00 143 17 40 09/30/19 03:00 149 17 138/64 (88) 100 09/30/19 02:00 70 16 109/47 (67) 100 09/30/19 01:02 67 22 40 09/30/19 01:00 74 18 122/43 (69) 100 09/30/19 00:00 98.8 65 13 115/47 (69) 100 09/30/19 00:00 40 09/30/19 00:00 Mechanical Ventilator 09/30/19 00:00 65 09/29/19 23:24 65 14 40 09/29/19 23:00 66 18 111/41 (64) 100 09/29/19 22:15 65 15 40 09/29/19 22:00 65 15 116/43 (67) 100 09/29/19 21:00 67 15 110/44 (66) 100 09/29/19 20:52 66 119/37 09/29/19 20:28 66 13 40 09/29/19 20:15 65 09/29/19 20:00 Mechanical Ventilator 09/29/19 20:00 98.7 66 16 119/37 (64) 100 09/29/19 20:00 40 09/29/19 19:00 68 16 54/45 (48) 100 09/29/19 18:00 66 14 108/45 (66) 100 09/29/19 17:00 74 19 148/48 (81) 100 09/29/19 16:00 Mechanical Ventilator 09/29/19 16:00 78 09/29/19 16:00 40 09/29/19 16:00 71 17 115/44 (67) 100 09/29/19 15:00 73 26 125/42 (69) 98 09/29/19 14:30 74 24 40 09/29/19 14:00 67 26 116/44 (68) 100 Intake and Output 09/29/19 09/30/19 19:00 07:00 Intake Total 720 ml 660 ml Output Total 525 ml 445 ml Balance 195 ml 215 ml Tube Feeding 720 ml 440 ml Other 220 ml Output Urine Total 525 ml 445 ml Laboratory Tests 09/30/19 03:54: White Blood Count 10.2, Red Blood Count 3.18L, Hemoglobin 8.5L, Hematocrit 26.1L , Mean Corpuscular Volume 82, Mean Corpuscular Hemoglobin 26.9L, Mean Corpuscular Hemoglobin Concent 32.7, Red Cell Distribution Width 17.4H, Platelet Count 504H, Mean Platelet Volume 5.5L, Neutrophils (%) (Auto) 77.4H, Lymphocytes (%) (Auto) 11.8L, Monocytes (%) (Auto) 7.7, Eosinophils (%) (Auto) 2.4, Basophils (%) (Auto) 0.7, Sodium Level 139, Potassium Level 4.1, Chloride Level 104, Carbon Dioxide Level 26, Anion Gap 9, Blood Urea Nitrogen 22H, Creatinine 1.1, Estimat Glomerular Filtration Rate > 60, Glucose Level 129H, Calcium Level 8.7, Phosphorus Level 3.3, Magnesium Level 2.1, Total Bilirubin 0.3, Aspartate Amino Transf (AST/SGOT) 77H, Alanine Aminotransferase (ALT/SGPT) 66, Alkaline Phosphatase 221H, Total Protein 7.0, Albumin 1.5L, Globulin 5.5, Albumin/Globulin Ratio 0.3L 09/30/19 08:15: Arterial Blood pH 7.488H, Arterial Blood Partial Pressure CO2 35.6, Arterial Blood Partial Pressure O2 122.5H, Arterial Blood HCO3 26.4H, Arterial Blood Oxygen Saturation 97.5, Arterial Blood Base Excess 3.0H, Watson Test Positive Height (Feet): 5 Height (Inches): 11.00 Weight (Pounds): 153 General Appearance: no apparent distress EENT: normal ENT inspection Neck: supple Cardiovascular: normal rate Respiratory/Chest: decreased breath sounds Abdomen: normal bowel sounds, non tender, soft Extremities: non-tender Darrick Rosario MD Sep 30, 2019 13:46
--- NOTE | 2019-09-30 14:09 | Internal Med Progress Note ---
Subjective Physician Name Lamont Hayes Attending Physician Lamont Hayes MD Current Medications Medications (Trade) Dose Ordered Sig/Kike Route PRN Reason Start Time Stop Time Status Last Admin Dose Admin Acetaminophen (Tylenol) 650 mg Q4H PRN ORAL fever 09/24/19 03:00 10/07/19 02:54 Amlodipine Besylate (Norvasc) 5 mg BID@0900,2100 NG 09/24/19 21:00 10/22/19 08:59 09/30/19 09:22 Heparin Sodium (Porcine) (Heparin 5000 units/ml) 5,000 units EVERY 12 HOURS SUBQ 09/24/19 09:00 10/22/19 08:59 09/30/19 09:21 Levofloxacin (Levaquin) 750 mg DAILY ORAL 09/30/19 13:00 10/07/19 12:59 09/30/19 13:24 Levothyroxine Sodium (Synthroid) 75 mcg DAILY@0630 ORAL 09/24/19 06:30 10/07/19 08:29 09/30/19 05:38 Nitroglycerin (Ntg) 0.4 mg Q5M PRN SL Prn Chest Pain 09/24/19 02:30 10/07/19 04:29 Ondansetron HCl (Zofran) 4 mg Q6H PRN IVP Nausea & Vomiting 09/24/19 03:00 10/07/19 02:57 09/28/19 21:10 Pantoprazole (Protonix) 40 mg Q12HR IVP 09/24/19 09:00 10/10/19 08:59 09/30/19 09:21 Polyethylene Glycol (Miralax) 17 gm DAILYPRN PRN ORAL Constipation 09/24/19 03:00 10/07/19 02:57 Promethazine HCl/ Codeine (Phenergan with Codeine) 5 ml Q4H PRN ORAL For Cough 09/24/19 03:00 10/07/19 02:58 Quetiapine Fumarate (SEROqueL) 25 mg Q8H PRN NG Agitation 09/24/19 02:35 10/30/19 02:34 09/30/19 03:10 Allergies: Coded Allergies: PENICILLINS (Verified Allergy, Unknown, 10/27/18) tolretas cephalosporins Subjective in ICU, intubated, not responsive, unable to open eyes with stimulation.. Objective Last Vital Signs Date Time Temp Pulse Resp B/P (MAP) Pulse Ox O2 Delivery O2 Flow Rate FiO2 09/30/19 12:30 74 18 40 09/30/19 12:00 98.9 109/55 (73) 100 09/30/19 12:00 Mechanical Ventilator 09/23/19 21:00 3.0 Laboratory Tests Test 09/30/19 03:54 09/30/19 08:15 White Blood Count 10.2 K/UL (4.8-10.8) Red Blood Count 3.18 M/UL (4.70-6.10) L Hemoglobin 8.5 G/DL (14.2-18.0) L Hematocrit 26.1 % (42.0-52.0) L Mean Corpuscular Volume 82 FL (80-99) Mean Corpuscular Hemoglobin 26.9 PG (27.0-31.0) L Mean Corpuscular Hemoglobin Concent 32.7 G/DL (32.0-36.0) Red Cell Distribution Width 17.4 % (11.6-14.8) H Platelet Count 504 K/UL (150-450) H Mean Platelet Volume 5.5 FL (6.5-10.1) L Neutrophils (%) (Auto) 77.4 % (45.0-75.0) H Lymphocytes (%) (Auto) 11.8 % (20.0-45.0) L Monocytes (%) (Auto) 7.7 % (1.0-10.0) Eosinophils (%) (Auto) 2.4 % (0.0-3.0) Basophils (%) (Auto) 0.7 % (0.0-2.0) Sodium Level 139 MMOL/L (136-145) Potassium Level 4.1 MMOL/L (3.5-5.1) Chloride Level 104 MMOL/L (98-107) Carbon Dioxide Level 26 MMOL/L (21-32) Anion Gap 9 mmol/L (5-15) Blood Urea Nitrogen 22 mg/dL (7-18) H Creatinine 1.1 MG/DL (0.55-1.30) Estimat Glomerular Filtration Rate > 60 mL/min (>60) Glucose Level 129 MG/DL (74-106) H Calcium Level 8.7 MG/DL (8.5-10.1) Phosphorus Level 3.3 MG/DL (2.5-4.9) Magnesium Level 2.1 MG/DL (1.8-2.4) Total Bilirubin 0.3 MG/DL (0.2-1.0) Aspartate Amino Transf (AST/SGOT) 77 U/L (15-37) H Alanine Aminotransferase (ALT/SGPT) 66 U/L (12-78) Alkaline Phosphatase 221 U/L (46-116) H Total Protein 7.0 G/DL (6.4-8.2) Albumin 1.5 G/DL (3.4-5.0) L Globulin 5.5 g/dL Albumin/Globulin Ratio 0.3 (1.0-2.7) L Arterial Blood pH 7.488 (7.350-7.450) Arterial Blood Partial Pressure CO2 35.6 mmHg (35.0-45.0) Arterial Blood Partial Pressure O2 122.5 mmHg (75.0-100.0) H Arterial Blood HCO3 26.4 mmol/L (22.0-26.0) H Arterial Blood Oxygen Saturation 97.5 % (95-100) Arterial Blood Base Excess 3.0 (-2-2) H Watson Test Positive Intake and Output 09/29/19 09/30/19 19:00 07:00 Intake Total 720 ml 660 ml Output Total 525 ml 445 ml Balance 195 ml 215 ml Tube Feeding 720 ml 440 ml Other 220 ml Output Urine Total 525 ml 445 ml Objective General: not responsive, unable to open eyes with deep stimulation, Intubated. HEENT: NCAT, sclera anicteric, PERRL, ET tube. Neck: Supple, no significant jugular venous distention, Lungs: Mechanical Breath sound, Decrease air at bases, no Wheeze or Rales. Heart: Regular rate and rhythm, normal S1/S2, no murmurs, Abdomen: soft, nontender, nondistended. Normoactive bowel sounds, + PEG : Muniz cath. Extremities: No Cyanosis , clubbing or edema. Neuro: unable to move extremities, contracted lower extremities. Skin: warm, no rash. Assessment/Plan Assessment/Plan ASSESSMENT: This is an 84-year-old male with: 1. Acute respiratory failure with right pneumonia. 2. Urinary tract infection. 3. Right pleural effusion. 4. Esophageal mass. 5. Dysphagia. 6. Diabetes. 7. Alzheimer's dementia. 8. Cerebrovascular disease. 9. Hypothyroidism. 10. Seizure disorder. 11. Iron deficiency anemia. 12. sepsis. TREATMENT: 1. Right side Pneumonia. A Pulmonary consultation has been obtained with Dr. Vania Hui. The patient underwent thoracentesis during previous hospitalization. We will follow recommendation of Pulmonary. Abx: Levaquin IV, ID: Dr. Erickson 2. Urinary tract infection. 3. Right pleural effusion. As above, a Pulmonary consultation has been obtained with Dr. Vania Hui. The patient may require thoracentesis during this hospitalization. 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 A Gastroenterology consultation has been obtained with Dr. Darrick Rosario. 5. Dysphagia. The patient is status post PEG placement on 08/08/2019 at [facility] by Dr. Darrick Rosario. 6. Diabetes type 2. A NovoLog sliding scale has been instituted. 7. Alzheimer's dementia. 8. Cerebrovascular disease, status post cerebrovascular accident. 9. Hypothyroidism. Continue levothyroxine as above. 10. Seizure disorder. 11. Iron deficiency anemia. Lamont Hayes MD Sep 30, 2019 14:09
--- NOTE | 2019-09-30 14:26 | Surgery Progress Note ---
Surgery Progress Note Subjective Additional Comments may need trach ill appearing labs noted exam unchanged not weaning well Objective Last 24 Hour Vital Signs Date Time Temp Pulse Resp B/P (MAP) Pulse Ox O2 Delivery O2 Flow Rate FiO2 09/30/19 12:30 74 18 40 09/30/19 12:00 74 09/30/19 12:00 98.9 75 38 109/55 (73) 100 09/30/19 12:00 40 09/30/19 12:00 Mechanical Ventilator 09/30/19 11:00 68 30 113/46 (68) 100 09/30/19 10:00 74 29 124/46 (72) 100 09/30/19 09:30 71 18 40 40 09/30/19 09:22 69 127/49 09/30/19 09:00 71 24 127/49 (75) 100 09/30/19 08:00 73 09/30/19 08:00 99.0 75 30 124/54 (77) 100 09/30/19 07:43 Mechanical Ventilator 09/30/19 07:40 40 09/30/19 07:25 79 27 40 40 09/30/19 07:25 100 09/30/19 07:00 73 13 118/47 (70) 100 09/30/19 06:30 73 13 09/30/19 06:00 71 13 124/58 (80) 100 09/30/19 05:06 72 15 40 09/30/19 05:00 70 14 124/52 (76) 100 09/30/19 04:00 40 09/30/19 04:00 72 09/30/19 04:00 98.8 72 12 117/50 (72) 100 09/30/19 04:00 Mechanical Ventilator 09/30/19 03:00 143 17 40 09/30/19 03:00 149 17 138/64 (88) 100 09/30/19 02:00 70 16 109/47 (67) 100 09/30/19 01:02 67 22 40 09/30/19 01:00 74 18 122/43 (69) 100 09/30/19 00:00 98.8 65 13 115/47 (69) 100 09/30/19 00:00 40 09/30/19 00:00 Mechanical Ventilator 09/30/19 00:00 65 09/29/19 23:24 65 14 40 09/29/19 23:00 66 18 111/41 (64) 100 09/29/19 22:15 65 15 40 09/29/19 22:00 65 15 116/43 (67) 100 09/29/19 21:00 67 15 110/44 (66) 100 09/29/19 20:52 66 119/37 09/29/19 20:28 66 13 40 09/29/19 20:15 65 09/29/19 20:00 Mechanical Ventilator 09/29/19 20:00 98.7 66 16 119/37 (64) 100 09/29/19 20:00 40 09/29/19 19:00 68 16 54/45 (48) 100 09/29/19 18:00 66 14 108/45 (66) 100 09/29/19 17:00 74 19 148/48 (81) 100 09/29/19 16:00 Mechanical Ventilator 09/29/19 16:00 78 09/29/19 16:00 40 09/29/19 16:00 71 17 115/44 (67) 100 09/29/19 15:00 73 26 125/42 (69) 98 09/29/19 14:30 74 24 40 I&O Intake and Output 09/29/19 09/30/19 19:00 07:00 Intake Total 720 ml 660 ml Output Total 525 ml 445 ml Balance 195 ml 215 ml Tube Feeding 720 ml 440 ml Other 220 ml Output Urine Total 525 ml 445 ml Dressing: other Wound: other Drains: other Cardiovascular: RSR Respiratory: decreased breath sounds Abdomen: non-tender, present bowel sounds Extremities: no tenderness, no cyanosis Laboratory Tests Test 09/30/19 03:54 09/30/19 08:15 White Blood Count 10.2 K/UL (4.8-10.8) Red Blood Count 3.18 M/UL (4.70-6.10) L Hemoglobin 8.5 G/DL (14.2-18.0) L Hematocrit 26.1 % (42.0-52.0) L Mean Corpuscular Volume 82 FL (80-99) Mean Corpuscular Hemoglobin 26.9 PG (27.0-31.0) L Mean Corpuscular Hemoglobin Concent 32.7 G/DL (32.0-36.0) Red Cell Distribution Width 17.4 % (11.6-14.8) H Platelet Count 504 K/UL (150-450) H Mean Platelet Volume 5.5 FL (6.5-10.1) L Neutrophils (%) (Auto) 77.4 % (45.0-75.0) H Lymphocytes (%) (Auto) 11.8 % (20.0-45.0) L Monocytes (%) (Auto) 7.7 % (1.0-10.0) Eosinophils (%) (Auto) 2.4 % (0.0-3.0) Basophils (%) (Auto) 0.7 % (0.0-2.0) Sodium Level 139 MMOL/L (136-145) Potassium Level 4.1 MMOL/L (3.5-5.1) Chloride Level 104 MMOL/L (98-107) Carbon Dioxide Level 26 MMOL/L (21-32) Anion Gap 9 mmol/L (5-15) Blood Urea Nitrogen 22 mg/dL (7-18) H Creatinine 1.1 MG/DL (0.55-1.30) Estimat Glomerular Filtration Rate > 60 mL/min (>60) Glucose Level 129 MG/DL (74-106) H Calcium Level 8.7 MG/DL (8.5-10.1) Phosphorus Level 3.3 MG/DL (2.5-4.9) Magnesium Level 2.1 MG/DL (1.8-2.4) Total Bilirubin 0.3 MG/DL (0.2-1.0) Aspartate Amino Transf (AST/SGOT) 77 U/L (15-37) H Alanine Aminotransferase (ALT/SGPT) 66 U/L (12-78) Alkaline Phosphatase 221 U/L (46-116) H Total Protein 7.0 G/DL (6.4-8.2) Albumin 1.5 G/DL (3.4-5.0) L Globulin 5.5 g/dL Albumin/Globulin Ratio 0.3 (1.0-2.7) L Arterial Blood pH 7.488 (7.350-7.450) Arterial Blood Partial Pressure CO2 35.6 mmHg (35.0-45.0) Arterial Blood Partial Pressure O2 122.5 mmHg (75.0-100.0) H Arterial Blood HCO3 26.4 mmol/L (22.0-26.0) H Arterial Blood Oxygen Saturation 97.5 % (95-100) Arterial Blood Base Excess 3.0 (-2-2) H Watson Test Positive Plan Problems: (1) UTI (urinary tract infection) (2) Acute respiratory failure Assessment & Plan: There is infiltrate suspected in the right perihilar region obscuring the right hilum. There is a hazy opacity that may partially be accounted for by pleural fluid on the right. Reticular densities are present on the left in the perihilar aspect of the lung. Endotracheal tube is in good position just above the anselmo. Heart size is normal. IMPRESSION: Suspected perihilar airspace disease in the right lung suspicious for pneumonia. Reticular nodular infiltrate in the left lung noted also. Right pleural effusion suspected. Endotracheal tube in good position cont vents support Lungs: Similar bilateral interstitial prominence, greater on the right. Stable right perihilar, mid and lower lung opacities. Similar left lung base opacity. Pleural space: Small left pleural effusion is stable. Loculated right pleural effusion is stable. No pneumothorax. Heart: Unremarkable. No cardiomegaly. Mediastinum: Unremarkable. Bones/joints: Unremarkable. Tubes, lines and devices: Endotracheal tube has been pulled back and is 10 cm above the anselmo near the thoracic inlet. IMPRESSION: Endotracheal tube has been pulled back and is 10 cm above the anselmo near the thoracic inlet. Remainder findings are stable. may need thoracentesis soon Moderate size right pleural effusion with right upper and lower lobe atelectasis/consolidation, as well as mild pulmonary edema.. (3) Sepsis Assessment & Plan: Pt cachetic and presented on admission with multiple pressure injuries. Partial thickness pressure injury Cleft of L ear(L)1.2cm x (W)0.4cm. Base of wound moist and viable with small amt sanguineous exudate. Partial thickness pressure injury cleft of R ear(L)0.5cm x (W)0.7cm. Base of wound moist and viable Periwound erythematous.Small amt sanguineous exudate noted. Sacral DTPI(L)5cm x (W)10.5cm. Base of injury is purple with maroon borders. Coccygeal bony protrusion with darker skin tone, and small opening noted to R gluteus (L)0.5cm x (W)0.5cm within base of injury. No further skin breakdown periwound. Intact blood blister noted to R 1st metatarsal head(L)1.1cm x (W)2.5cm. DTPI noted to L heel extending into plantar aspect. Base of injury presents as an intact blood filled blister. Periwound is boggy with non-blanching erythema. R heel is boggy but blanchable. wounds unlikely etiology of sepsis respiratory but given current condition high risk for breakdown and worsening will monitor closely discussed with RN and staff great care being provided coded acls intubated in ICU prognosis guarded Tx.Plan: Apply Betadine to clefts of R and L ears. Pad oxygen tubing with gauze and keep oxygen tubing loose. Apply Moisture Barrier Paste to Sacrum. Cover with Optifoam drsg. Change every 3 days and prn. Apply Betadine to L heel. Cover with Optifoam drsg. Change every 3 days and prn. Apply Betadine to R 1st metatarsal head. Cover with Optifoam drsg. Change every 3 days and prn. Apply Cavilon Skin Barrier R heel. Cover with Optifoam drsg. Change every 7 days and prn. Reposition at least every 2hours or as tolerated. Off-load heels with pillow. on air mattress but not very comfortable appearing cont current care / pulm management (4) Severe anemia (5) Nosocomial pneumonia (6) Atrial fibrillation (7) Acute metabolic encephalopathy (8) History of CVA (cerebrovascular accident) (9) Diabetes mellitus (10) Hypothyroidism (11) Alzheimer's dementia (12) PVC (premature ventricular contraction) (13) Hypertension (14) Squamous cell esophageal cancer (15) Feeding by G-tube (16) Dehydration (17) Anemia (18) Severe malnutrition Assessment & Plan: DAILY ESTIMATED NEEDS: Needs based on underweight, suspected wt loss, wounds/ 63kg 25-33 kcals/kg 3308-4758 total kcals 1.25-2 g protein/kg 78-126 g total protein 25-30 mL/kg 2799-7052 total fluid mLs NUTRITION DIAGNOSIS: * Swallowing difficulty R/T dysphagia w/ h/o CVA as evidenced by now s/p recent PEG placement (08/08/19), on GT feeds, held at time, s/p code blue (09/07), orally intubated, now extubated. * Increased kcal/prot intake needs R/T suspected significant wt loss and underweight status, wounds as evidenced by 10lbs/6.7% wt loss in 1 month, 76% IBW w/ BMI of 18.4, admitted w/ DTPI wound @ sacrum, Lt heel, partial thickness pressure injury cleft of R L ear. CURRENT TF:Osmolite 1.2 @ 60ml/hr x 22 hrs ENTERAL NUTRITION RECOMMENDATIONS: Osmolite 1.2 @ 60ml/hr x 22 hrs + Prosource x 1 to provide 1320ml, 1584kcal, 73g +11g prot, 1082ml free water - Add Prosource x 1 to meet protein needs - HOLD 1 hr before and after synthroid meds. add Prosource 1 pack daily to better meet est pro needs - Flush per MD/ HOB over 30 degrees WITH ELEV BG, rec TF change to Glucerna 1.2 w/ a goal of 60ml/hr x22 hrs to provide 1320ml, 1584kcal, 79g prot ADDITIONAL RECOMMENDATIONS: * PER SNF: HT=6'1" WT= 139lbs ("August weight" from SNF) -> calibrated bedscale wt * Monitor K, need for TF change (K 5.9 upon adm, now wnl) * Wound care: add Vit C 500mg QD + Wesley 1pkt BID via PEG * Monitor BGs, need for NISS: h/o DM per MD (checking A1C not suggested given low hgb) (19) Encounter for PEG (percutaneous endoscopic gastrostomy) (20) At high risk for aspiration (21) Pleural effusion (22) Suspected COVID-19 virus infection Jan Mora Sep 30, 2019 14:26
[2019-10-01] VITALS (24 sets, daily range): BP systolic 106–144; BP diastolic 44–65
[2019-10-01 06:03] LABS: BASOPHILS % (AUTO) 0.5 % (0.0-2.0); EOSINOPHILS % (AUTO) 1.7 % (0.0-3.0); HEMATOCRIT 26.4 % (42.0-52.0); HEMOGLOBIN 8.6 G/DL (14.2-18.0); LYMPHOCYTES % (AUTO) 11.3 % (20.0-45.0); MEAN CORPUSCULAR VOLUME 82 FL (80-99); MONOCYTES % (AUTO) 7.7 % (1.0-10.0); NEUTROPHILS % (AUTO) 78.8 % (45.0-75.0); PLATELET COUNT 503 K/UL (150-450); RED BLOOD COUNT 3.23 M/UL (4.70-6.10); RED CELL DISTRIBUTION WIDTH 17.3 % (11.6-14.8); WHITE BLOOD COUNT 13.3 K/UL (4.8-10.8)
[2019-10-01 06:24] LABS: ALANINE AMINOTRANSFERASE 101 U/L (12-78); ALBUMIN 1.4 G/DL (3.4-5.0); ALBUMIN/GLOBULIN RATIO 0.2 (1.0-2.7); ALKALINE PHOSPHATASE 256 U/L (46-116); ANION GAP 6 mmol/L (5-15); ASPARTATE AMINO TRANSFERASE 109 U/L (15-37); BILIRUBIN,TOTAL 0.3 MG/DL (0.2-1.0); BLOOD UREA NITROGEN 24 mg/dL (7-18); CALCIUM 8.1 MG/DL (8.5-10.1); CARBON DIOXIDE 28 MMOL/L (21-32); CHLORIDE 107 MMOL/L (98-107); CREATININE 1.2 MG/DL (0.55-1.30); POTASSIUM 4.3 MMOL/L (3.5-5.1); SODIUM 141 MMOL/L (136-145)
--- NOTE | 2019-10-01 07:32 | Pulmonolgy Critical Care Note ---
Critical Care - Asmt/Plan Assessment/Plan: ASSESSMENT Sepsis Acute respiratory failure requiring intubation, s/p extubation 09/19 s/p CP arrest and reintubation 09/23 Pseudomonas and Proteus pneumonia recurrent pleural effusion, s/p thoracentesis 09/18 and 09/27 Acute kidney injury, -secondary to dehydration Suspected COVID 19 infection -ruled out x 2 Hypothyroidism with elevated TSH Severe anemia Transaminitis Dysphagia, feeding by G-tube Cerebrovascular disease with hx of CVA Diabetes mellitus Severe protein calorie malnutrition Multiply pressure injury, present on admission Seizure disorder Alzheimer dementia Anemia PLAN of CARE ICU vent support, pulmonary toilet CXR 09/29 noted, worse on weaning protocol, continue so far unable to wean fup with CXR and ABG in am s/p 09/[address] effusion - 2050 ml, 09/27 -2300 ml, pleural fluid cx NGT x2 pathology - NGT for malignant cells x2 initial CXR with near complete resolution, no complication HONEY CoV PCR x 2 -NGT; off isolation influenza screen NGT BCX NGT SCX + Pseudomonas, Proteus, repeated SCX 09/25 + Pseudomonas UCX + Abi , likely colonization completed abx as per ID 09/29 started on Levaquin aspiration precautions, GTF , protein supplements as per RD monitor H&H with goal to keep Hgb above 7 BS management trend LFT creat stable avoid nephrotoxics continue Protonix monitor HH at baseline and consider GI eval if further drop elevated D dimer, venous Duplex BLE negative troponin NGT wound care as per surgeon recommendation Synthroid dose uptitrated, repeat TSH in 3 wks supportive care case discussed and evaluated by supervising physician Critical Care - Objective Last 24 Hour Vital Signs Date Time Temp Pulse Resp B/P (MAP) Pulse Ox O2 Delivery O2 Flow Rate FiO2 10/01/19 07:00 69 15 117/48 (71) 97 10/01/19 06:30 71 14 10/01/19 06:00 71 14 116/44 (68) 94 10/01/19 05:00 71 14 115/47 (69) 94 10/01/19 04:00 Mechanical Ventilator 10/01/19 04:00 40 10/01/19 04:00 71 10/01/19 04:00 98.8 71 15 118/47 (70) 100 10/01/19 03:00 68 14 117/47 (70) 100 10/01/19 02:39 73 15 40 10/01/19 02:00 71 15 115/47 (69) 100 10/01/19 01:00 71 16 114/44 (67) 100 10/01/19 00:00 68 10/01/19 00:00 40 10/01/19 00:00 99.1 68 13 116/54 (74) 99 10/01/19 00:00 Mechanical Ventilator 09/30/19 23:00 66 15 122/55 (77) 98 09/30/19 22:46 67 12 40 09/30/19 22:00 66 14 109/44 (65) 99 09/30/19 21:37 69 105/51 09/30/19 21:00 68 15 112/44 (66) 99 09/30/19 20:00 65 09/30/19 20:00 Mechanical Ventilator 09/30/19 20:00 98.9 68 15 105/51 (69) 100 09/30/19 20:00 40 09/30/19 19:09 64 12 40 09/30/19 19:00 67 13 115/48 (70) 100 09/30/19 18:00 68 13 119/47 (71) 100 09/30/19 17:10 69 14 40 09/30/19 17:00 67 13 116/48 (70) 100 09/30/19 16:00 40 09/30/19 16:00 99.6 69 12 111/45 (67) 100 09/30/19 16:00 69 09/30/19 16:00 Mechanical Ventilator 09/30/19 15:00 70 12 117/53 (74) 100 09/30/19 14:00 75 12 119/56 (77) 100 09/30/19 13:00 71 12 121/56 (77) 100 09/30/19 12:30 74 18 40 09/30/19 12:00 74 09/30/19 12:00 98.9 75 38 109/55 (73) 100 09/30/19 12:00 40 09/30/19 12:00 Mechanical Ventilator 09/30/19 11:00 68 30 113/46 (68) 100 09/30/19 10:00 74 29 124/46 (72) 100 09/30/19 09:30 71 18 40 40 09/30/19 09:22 69 127/49 09/30/19 09:00 71 24 127/49 (75) 100 09/30/19 08:00 73 09/30/19 08:00 99.0 75 30 124/54 (77) 100 09/30/19 07:43 Mechanical Ventilator 09/30/19 07:40 40 09/30/19 07:25 79 27 40 40 09/30/19 07:25 100 Objective: Condition: critical, intubated HEENT: atraumatic, normocephalic, OP with ET in place, intact Lungs: overall clear Heart: HR/BP stable Abdomen: soft, active bowel sounds, G tube Extremities: no C/C/E Critical Care - Subjective ROS Limited/Unobtainable: Yes Interval Events: remains intubated so far unable to wean afebrile, leukocytosis today CXR 09/29 worse LFT trending up Condition: critical EKG Rhythm: Sinus Rhythm FI02: 40 Vent Support Breath Rate: 12 Vent Support Mode: AC Vent Tidal Volume: 550 Sputum Amount: Moderate PEEP: 5.0 PIP: 27 Secretions: large yellow thick Tube Feeding Amount: 60 I&O: Intake and Output 09/30/19 10/01/19 19:00 07:00 Intake Total 480 ml 650 ml Output Total 505 ml 330 ml Balance -25 ml 320 ml Intake Free Water 50 ml Tube Feeding 480 ml 600 ml Output Urine Total 505 ml 330 ml # Bowel Movements 1 CXR: CXR 09/29 - Increasing right mid and lower lung opacity, may indicate increasing pleural fluid, increasing infiltrate, or both. ET-Tube: 7.5 ET Position: 26 Miranda Pimentel [employer] Oct 01, 2019 07:32
[2019-10-01] MEDS: Pantoprazole Inj IVP SCH ×2 (08:30→21:25)
[2019-10-01] MEDS: Levofloxacin 750mg tab ORAL SCH (08:31)
[2019-10-01] MEDS: Heparin 5000 units/ml inj SUBQ SCH ×2 (08:32→21:27)
[2019-10-01 09:25] LABS: PHOSPHORUS 3.6 MG/DL (2.5-4.9)
--- NOTE | 2019-10-01 09:27 | Nephrology Progress Note ---
Assessment/Plan Problem List: (1) RAMAN (acute kidney injury) Assessment: Serum creatinine normalized with hydration (2) Dehydration (3) Suspected COVID-19 virus infection (4) Anemia (5) Sepsis (6) Diabetes mellitus (7) Hypothyroidism Assessment - Acute renal failure - Severe anemia - Sepsis, pneumonia, acute respiratory failure, suspected: Viewed 19 virus infection - Diabetes mellitus - Hypothyroidism - Feeding by G-tube - Squamous cell esophageal cancer - History of CVA (cerebrovascular accident) Plan Patient was coded early September 23 morning and back in ICU intubated Serum creatinine miguel to 1.5, now back to normal Stable from renal standpoint of view at this point Previously: Pneumonia SARS-CoV neg x2 MRSA screen pos sp cx: PSA and proteus Changes Seroquel to "as needed" due to bradycardia Discontinue IV fluid Monitor renal parameters, serum creatinine Adjust electrolytes with supplements Increase Synthroid dose Avoid nephrotoxic's as possible Ventilator management Urine studies Per orders Subjective ROS Limited/Unobtainable: Yes Objective Objective Last 24 Hour Vital Signs Date Time Temp Pulse Resp B/P (MAP) Pulse Ox O2 Delivery O2 Flow Rate FiO2 10/01/19 08:31 78 120/85 10/01/19 07:00 69 15 117/48 (71) 97 10/01/19 06:30 71 14 10/01/19 06:00 71 14 116/44 (68) 94 10/01/19 05:00 71 14 115/47 (69) 94 10/01/19 04:00 Mechanical Ventilator 10/01/19 04:00 40 10/01/19 04:00 71 10/01/19 04:00 98.8 71 15 118/47 (70) 100 10/01/19 03:00 68 14 117/47 (70) 100 10/01/19 02:39 73 15 40 10/01/19 02:00 71 15 115/47 (69) 100 10/01/19 01:00 71 16 114/44 (67) 100 10/01/19 00:00 68 10/01/19 00:00 40 10/01/19 00:00 99.1 68 13 116/54 (74) 99 10/01/19 00:00 Mechanical Ventilator 09/30/19 23:00 66 15 122/55 (77) 98 09/30/19 22:46 67 12 40 09/30/19 22:00 66 14 109/44 (65) 99 09/30/19 21:37 69 105/51 09/30/19 21:00 68 15 112/44 (66) 99 09/30/19 20:00 65 09/30/19 20:00 Mechanical Ventilator 09/30/19 20:00 98.9 68 15 105/51 (69) 100 09/30/19 20:00 40 09/30/19 19:09 64 12 40 09/30/19 19:00 67 13 115/48 (70) 100 09/30/19 18:00 68 13 119/47 (71) 100 09/30/19 17:10 69 14 40 09/30/19 17:00 67 13 116/48 (70) 100 09/30/19 16:00 40 09/30/19 16:00 99.6 69 12 111/45 (67) 100 09/30/19 16:00 69 09/30/19 16:00 Mechanical Ventilator 09/30/19 15:00 70 12 117/53 (74) 100 09/30/19 14:00 75 12 119/56 (77) 100 09/30/19 13:00 71 12 121/56 (77) 100 09/30/19 12:30 74 18 40 09/30/19 12:00 74 09/30/19 12:00 98.9 75 38 109/55 (73) 100 09/30/19 12:00 40 09/30/19 12:00 Mechanical Ventilator 09/30/19 11:00 68 30 113/46 (68) 100 09/30/19 10:00 74 29 124/46 (72) 100 09/30/19 09:30 71 18 40 40 Intake and Output 09/30/19 10/01/19 19:00 07:00 Intake Total 480 ml 650 ml Output Total 505 ml 330 ml Balance -25 ml 320 ml Intake Free Water 50 ml Tube Feeding 480 ml 600 ml Output Urine Total 505 ml 330 ml # Bowel Movements 1 Laboratory Tests 10/01/19 05:18: White Blood Count 13.3H, Red Blood Count 3.23L, Hemoglobin 8.6L, Hematocrit 26.4L, Mean Corpuscular Volume 82, Mean Corpuscular Hemoglobin 26.6L, Mean Corpuscular Hemoglobin Concent 32.6, Red Cell Distribution Width 17.3H, Platelet Count 503H, Mean Platelet Volume 5.3L, Neutrophils (%) (Auto) 78.8H, Lymphocytes (%) (Auto) 11.3L, Monocytes (%) (Auto) 7.7, Eosinophils (%) (Auto) 1.7, Basophils (%) (Auto) 0.5, Sodium Level 141, Potassium Level 4.3, Chloride Level 107, Carbon Dioxide Level 28, Anion Gap 6, Blood Urea Nitrogen 24H, Creatinine 1.2, Estimat Glomerular Filtration Rate > 60, Glucose Level 143H, Calcium Level 8.1L, Phosphorus Level [Pending], Magnesium Level [Pending], Total Bilirubin 0.3, Gamma Glutamyl Transpeptidase [Pending], Aspartate Amino Transf (AST/SGOT) 109H, Alanine Aminotransferase (ALT/SGPT) 101H, Alkaline Phosphatase 256H, Pro-B-Type Natriuretic Peptide 404H, Total Protein 7.0, Albumin 1.4L, Globulin 5.6, Albumin/Globulin Ratio 0.2L Height (Feet): 5 Height (Inches): 11.00 Weight (Pounds): 151 General Appearance: no apparent distress EENT: other - Remains intubated on ventilator Cardiovascular: normal rate Respiratory/Chest: decreased breath sounds Abdomen: distended Objective no change Clovis Benites MD Oct 01, 2019 09:27
--- NOTE | 2019-10-01 11:50 | Diagnostic Imaging Report ---
EXAM: XR Chest, 1 View CLINICAL HISTORY: DYSPNEA TECHNIQUE: Frontal view of the chest. COMPARISON: Chest radiograph on 09/30/2019 FINDINGS: Hardware: Endotracheal tube terminates in the region of the lower thoracic trachea above the anselmo. Lungs/pleura: Patchy opacities throughout the right lung left mid and lower lung, similar to slightly increased. Possible small bilateral pleural effusions. Heart/mediastinum: Stable mild enlargement of the cardiac silhouette. Soft tissues: Unremarkable. Bones: No acute fracture. Upper abdomen: Normal. IMPRESSION: 1. Patchy opacities throughout the right lung left mid and lower lung, similar to slightly increased. Possible small bilateral pleural effusions. 2. Endotracheal tube terminates in the region of the lower thoracic trachea above the anselmo.
--- NOTE | 2019-10-01 13:37 | GI Progress Note ---
Assessment/Plan Problems: (1) Encounter for PEG (percutaneous endoscopic gastrostomy) ICD Codes: Z43.1 - Encounter for attention to gastrostomy SNOMED: 149536813, 985512278 (2) Severe malnutrition ICD Codes: E43 - Unspecified severe protein-calorie malnutrition SNOMED: 35101160 (3) Anemia ICD Codes: D64.9 - Anemia, unspecified SNOMED: 779277575 (4) Dehydration ICD Codes: E86.0 - Dehydration SNOMED: 22597709 (5) Feeding by G-tube ICD Codes: Z93.1 - Gastrostomy status SNOMED: 643617192, 048152437, 752839005 Status: unchanged Status Narrative Discussed with Dr. Rosario. Assessment/Plan 1. Esophageal cancer. 2. Dysphagia. 3. Diabetes type 2. 4. Dementia. 5. CVA. 6. Hypothyroidism. 7. Seizure disorder. 8. Iron deficiency anemia. 9. Respiratory failure. 10. Dysphagia with G-tube stable H&H GT has been changed and working well GT flushes abx per id pulm care will fu The patient was seen and examined at bedside and all new and available data was reviewed in the patients chart. I agree with the above findings, impression and plan. (Patient seen earlier today. Signature stamp does not reflect patient encounter time.). - Darrick Rosario MD Subjective Subjective limited Objective Last 24 Hour Vital Signs Date Time Temp Pulse Resp B/P (MAP) Pulse Ox O2 Delivery O2 Flow Rate FiO2 10/01/19 12:00 Mechanical Ventilator 10/01/19 12:00 40 10/01/19 12:00 74 10/01/19 11:15 70 16 40 10/01/19 11:00 70 13 131/49 (76) 100 10/01/19 10:00 74 14 113/44 (67) 10/01/19 09:00 73 13 119/55 (76) 100 10/01/19 08:31 78 120/85 10/01/19 08:30 100 10/01/19 08:00 69 10/01/19 08:00 101.1 70 14 113/56 (75) 88 10/01/19 08:00 Mechanical Ventilator 10/01/19 08:00 40 10/01/19 07:02 70 13 40 10/01/19 07:00 69 15 117/48 (71) 97 10/01/19 06:30 71 14 10/01/19 06:00 71 14 116/44 (68) 94 10/01/19 05:00 71 14 115/47 (69) 94 10/01/19 04:00 Mechanical Ventilator 10/01/19 04:00 40 10/01/19 04:00 71 10/01/19 04:00 98.8 71 15 118/47 (70) 100 10/01/19 03:00 68 14 117/47 (70) 100 10/01/19 02:39 73 15 40 10/01/19 02:00 71 15 115/47 (69) 100 10/01/19 01:00 71 16 114/44 (67) 100 10/01/19 00:00 68 10/01/19 00:00 40 10/01/19 00:00 99.1 68 13 116/54 (74) 99 10/01/19 00:00 Mechanical Ventilator 09/30/19 23:00 66 15 122/55 (77) 98 09/30/19 22:46 67 12 40 09/30/19 22:00 66 14 109/44 (65) 99 09/30/19 21:37 69 105/51 09/30/19 21:00 68 15 112/44 (66) 99 09/30/19 20:00 65 09/30/19 20:00 Mechanical Ventilator 09/30/19 20:00 98.9 68 15 105/51 (69) 100 09/30/19 20:00 40 09/30/19 19:09 64 12 40 09/30/19 19:00 67 13 115/48 (70) 100 09/30/19 18:00 68 13 119/47 (71) 100 09/30/19 17:10 69 14 40 09/30/19 17:00 67 13 116/48 (70) 100 09/30/19 16:00 40 09/30/19 16:00 99.6 69 12 111/45 (67) 100 09/30/19 16:00 69 09/30/19 16:00 Mechanical Ventilator 09/30/19 15:00 70 12 117/53 (74) 100 09/30/19 14:00 75 12 119/56 (77) 100 Intake and Output 09/30/19 10/01/19 19:00 07:00 Intake Total 480 ml 650 ml Output Total 505 ml 330 ml Balance -25 ml 320 ml Intake Free Water 50 ml Tube Feeding 480 ml 600 ml Output Urine Total 505 ml 330 ml # Bowel Movements 1 Laboratory Tests Test 10/01/19 05:18 White Blood Count 13.3 K/UL (4.8-10.8) H Red Blood Count 3.23 M/UL (4.70-6.10) L Hemoglobin 8.6 G/DL (14.2-18.0) L Hematocrit 26.4 % (42.0-52.0) L Mean Corpuscular Volume 82 FL (80-99) Mean Corpuscular Hemoglobin 26.6 PG (27.0-31.0) L Mean Corpuscular Hemoglobin Concent 32.6 G/DL (32.0-36.0) Red Cell Distribution Width 17.3 % (11.6-14.8) H Platelet Count 503 K/UL (150-450) H Mean Platelet Volume 5.3 FL (6.5-10.1) L Neutrophils (%) (Auto) 78.8 % (45.0-75.0) H Lymphocytes (%) (Auto) 11.3 % (20.0-45.0) L Monocytes (%) (Auto) 7.7 % (1.0-10.0) Eosinophils (%) (Auto) 1.7 % (0.0-3.0) Basophils (%) (Auto) 0.5 % (0.0-2.0) Sodium Level 141 MMOL/L (136-145) Potassium Level 4.3 MMOL/L (3.5-5.1) Chloride Level 107 MMOL/L (98-107) Carbon Dioxide Level 28 MMOL/L (21-32) Anion Gap 6 mmol/L (5-15) Blood Urea Nitrogen 24 mg/dL (7-18) H Creatinine 1.2 MG/DL (0.55-1.30) Estimat Glomerular Filtration Rate > 60 mL/min (>60) Glucose Level 143 MG/DL (74-106) H Calcium Level 8.1 MG/DL (8.5-10.1) L Phosphorus Level 3.6 MG/DL (2.5-4.9) Magnesium Level 2.2 MG/DL (1.8-2.4) Total Bilirubin 0.3 MG/DL (0.2-1.0) Gamma Glutamyl Transpeptidase 189 U/L (5-85) H Aspartate Amino Transf (AST/SGOT) 109 U/L (15-37) H Alanine Aminotransferase (ALT/SGPT) 101 U/L (12-78) H Alkaline Phosphatase 256 U/L (46-116) H Pro-B-Type Natriuretic Peptide 404 pg/mL (0-125) H Total Protein 7.0 G/DL (6.4-8.2) Albumin 1.4 G/DL (3.4-5.0) L Globulin 5.6 g/dL Albumin/Globulin Ratio 0.2 (1.0-2.7) L Height (Feet): 5 Height (Inches): 11.00 Weight (Pounds): 151 General Appearance: WD/WN, no apparent distress, alert Cardiovascular: normal rate Respiratory/Chest: normal breath sounds, no respiratory distress Abdominal Exam: normal bowel sounds, non tender, soft, GT site Extremities: non-tender Chani Arroyo [employer] Oct 01, 2019 13:37
--- NOTE | 2019-10-01 13:38 | Internal Med Progress Note ---
Subjective Date of Service: Oct 01, 2019 Physician Name Xander Bah Attending Physician Lamont Hayes MD Current Medications Medications (Trade) Dose Ordered Sig/Kike Route PRN Reason Start Time Stop Time Status Last Admin Dose Admin Acetaminophen (Tylenol) 650 mg Q4H PRN ORAL fever 09/24/19 03:00 10/07/19 02:54 10/01/19 13:07 Amlodipine Besylate (Norvasc) 5 mg BID@0900,2100 NG 09/24/19 21:00 10/22/19 08:59 10/01/19 08:31 Heparin Sodium (Porcine) (Heparin 5000 units/ml) 5,000 units EVERY 12 HOURS SUBQ 09/24/19 09:00 10/22/19 08:59 10/01/19 08:32 Levofloxacin (Levaquin) 750 mg DAILY ORAL 09/30/19 13:00 10/07/19 12:59 09/30/19 13:24 Levothyroxine Sodium (Synthroid) 75 mcg DAILY@0630 ORAL 09/24/19 06:30 10/07/19 08:29 10/01/19 06:07 Nitroglycerin (Ntg) 0.4 mg Q5M PRN SL Prn Chest Pain 09/24/19 02:30 10/07/19 04:29 Ondansetron HCl (Zofran) 4 mg Q6H PRN IVP Nausea & Vomiting 09/24/19 03:00 10/07/19 02:57 09/28/19 21:10 Pantoprazole (Protonix) 40 mg Q12HR IVP 09/24/19 09:00 10/10/19 08:59 10/01/19 08:30 Polyethylene Glycol (Miralax) 17 gm DAILYPRN PRN ORAL Constipation 09/24/19 03:00 10/07/19 02:57 Promethazine HCl/ Codeine (Phenergan with Codeine) 5 ml Q4H PRN ORAL For Cough 09/24/19 03:00 10/07/19 02:58 Quetiapine Fumarate (SEROqueL) 25 mg Q8H PRN NG Agitation 09/24/19 02:35 10/30/19 02:34 09/30/19 03:10 Allergies: Coded Allergies: PENICILLINS (Verified Allergy, Unknown, 5/22/19) tolretas cephalosporins ROS Limited/Unobtainable: Yes Subjective 84 YO M admitted with cough and congestion. Cover for Int Med-Dr Hayes. Reintubated 09/24/19 after cardiopulmonary arrest-see code blue note. ICU Objective Last Vital Signs Date Time Temp Pulse Resp B/P (MAP) Pulse Ox O2 Delivery O2 Flow Rate FiO2 10/01/19 12:00 Mechanical Ventilator 10/01/19 12:00 40 10/01/19 12:00 74 10/01/19 11:15 16 10/01/19 11:00 131/49 (76) 100 10/01/19 08:00 101.1 09/23/19 21:00 3.0 Laboratory Tests Test 10/01/19 05:18 White Blood Count 13.3 K/UL (4.8-10.8) H Red Blood Count 3.23 M/UL (4.70-6.10) L Hemoglobin 8.6 G/DL (14.2-18.0) L Hematocrit 26.4 % (42.0-52.0) L Mean Corpuscular Volume 82 FL (80-99) Mean Corpuscular Hemoglobin 26.6 PG (27.0-31.0) L Mean Corpuscular Hemoglobin Concent 32.6 G/DL (32.0-36.0) Red Cell Distribution Width 17.3 % (11.6-14.8) H Platelet Count 503 K/UL (150-450) H Mean Platelet Volume 5.3 FL (6.5-10.1) L Neutrophils (%) (Auto) 78.8 % (45.0-75.0) H Lymphocytes (%) (Auto) 11.3 % (20.0-45.0) L Monocytes (%) (Auto) 7.7 % (1.0-10.0) Eosinophils (%) (Auto) 1.7 % (0.0-3.0) Basophils (%) (Auto) 0.5 % (0.0-2.0) Sodium Level 141 MMOL/L (136-145) Potassium Level 4.3 MMOL/L (3.5-5.1) Chloride Level 107 MMOL/L (98-107) Carbon Dioxide Level 28 MMOL/L (21-32) Anion Gap 6 mmol/L (5-15) Blood Urea Nitrogen 24 mg/dL (7-18) H Creatinine 1.2 MG/DL (0.55-1.30) Estimat Glomerular Filtration Rate > 60 mL/min (>60) Glucose Level 143 MG/DL (74-106) H Calcium Level 8.1 MG/DL (8.5-10.1) L Phosphorus Level 3.6 MG/DL (2.5-4.9) Magnesium Level 2.2 MG/DL (1.8-2.4) Total Bilirubin 0.3 MG/DL (0.2-1.0) Gamma Glutamyl Transpeptidase 189 U/L (5-85) H Aspartate Amino Transf (AST/SGOT) 109 U/L (15-37) H Alanine Aminotransferase (ALT/SGPT) 101 U/L (12-78) H Alkaline Phosphatase 256 U/L (46-116) H Pro-B-Type Natriuretic Peptide 404 pg/mL (0-125) H Total Protein 7.0 G/DL (6.4-8.2) Albumin 1.4 G/DL (3.4-5.0) L Globulin 5.6 g/dL Albumin/Globulin Ratio 0.2 (1.0-2.7) L Intake and Output 09/30/19 10/01/19 19:00 07:00 Intake Total 480 ml 650 ml Output Total 505 ml 330 ml Balance -25 ml 320 ml Intake Free Water 50 ml Tube Feeding 480 ml 600 ml Output Urine Total 505 ml 330 ml # Bowel Movements 1 Objective PHYSICAL EXAMINATION: GENERAL: The patient is a thin-appearing male, in no apparent distress. HEENT: Eyes, pupils are equal and responsive to light and accommodation. Extraocular movements are intact. NECK: Supple without lymphadenopathy. CHEST: Mech vent; Lungs are clear to auscultation bilaterally with decreased breath sounds on the right. There are no wheezes appreciated. ABDOMEN: Soft, nontender, and nondistended. Positive bowel sounds. No evidence of hepatosplenomegaly. Currently, no rebound or guarding noted. EXTREMITIES: Negative for clubbing, cyanosis, or edema. RECTAL/GENITAL: Not performed. NEUROLOGIC: Cranial nerves II through XII are grossly intact without focal deficits. Assessment/Plan Assessment/Plan ASSESSMENT: This is an 84-year-old male with: 1. Possible right pneumonia=pseudamonas 2. Urinary tract infection=jennifer 3. Right pleural effusion. 4. Esophageal mass. 5. Dysphagia. 6. Diabetes. 7. Alzheimer's dementia. 8. Cerebrovascular disease. 9. Hypothyroidism. 10. Seizure disorder. 11. Iron deficiency anemia. 13. Respiratory failure 14. S/P cardiopulmonary arrest 15. Anemia TREATMENT: 1. Right perihilar Pneumonia/pleural effusion. COVID 19 and Influenza negative. A Pulmonary consultation has been obtained with Dr. Vania Hui. S/P right thoracentesis 09/19/19. We will follow recommendation of Pulmonary. ID=Dr Roach ABX= S/P cefepime 2. Urinary tract infection. . A urine culture =jennifer 3. Right pleural effusion. As above, a Pulmonary consultation has been obtained with Dr. Vania Hui. The patient may require thoracentesis during this hospitalization. 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 A Gastroenterology consultation has been obtained with Dr. Darrick Rosario. 5. Dysphagia. The patient is status post PEG placement on 08/08/2019 at [facility] by Dr. Darrick Rosario. 6. Diabetes type 2. A NovoLog sliding scale has been instituted. 7. Alzheimer's dementia. 8. Cerebrovascular disease, status post cerebrovascular accident. 9. Hypothyroidism. Continue levothyroxine as above. 10. Seizure disorder. 11. Iron deficiency anemia. 12. reintubated 09/24/19-see code blue note 13. S/P transfusion 2 units PRBC Xander Bah MD Oct 01, 2019 13:38
--- NOTE | 2019-10-01 17:01 | Infectious Diseases Prog Note ---
Assessment/Plan Assessment/Plan 09/23 SP asystole cardiac arrest VDRF 09/23 Fever Mild leukocytosis PNA VDRF, sp intubation 09/08, sp extubation 09/18, re-intubated 09/23 SARS-CoV neg x2 MRSA screen pos 09/06 sp cx: PSA (hensley S) and proteus (hensley S) 09/30 CXR: Patchy opacities throughout the right lung left mid and lower lung, similar to slightly increased. Possible small bilateral pleural effusions. 09/29 CXR: Increasing right mid and lower lung opacity, may indicate increasing pleural fluid, increasing infiltrate, or both. 09/28 CXR: Developing hazy right basilar opacity. This could represent reaching layering pleural fluid. This could also represent reexpansion pulmonary edema given recent high-volume thoracentesis, or could represent developing ammonia or pulmonary edema. Hazy left basilar opacity, unchanged, may reflect parenchymal infiltrate versus pleural fluid versus both 09/25 CXR: Large right pleural effusion is again demonstrated. Small left pleural effusion is again demonstrated. Left lung is otherwise clear. sp cx PsA (R zozyn, S levo, gentamycin) 09/24 CXR: Moderate size right pleural effusion with right upper and lower lobe atelectasis/consolidation, as well as mild pulmonary edema.. 09/17 CXR: Similar bilateral interstitial prominence, greater on the right.Stable right perihilar, mid and lower lung opacities. Similar left lung base opacity. Small left pleural effusion is stable. Loculated right pleural effusion is stable. No pneumothorax. CXR: Right pleural effusion, also demonstrated on prior 08/09/2019 exam, slightly increased. Hazy right lung parenchymal opacity probably represents a superimposed pleural fluid but infiltrate also possible. R pleural effusion, exudative -09/18 SP thorancetesis; removal of 2050 mL fluid; Fluid prot 5 (serum prot 7.2 ); cx Neg QTc 419 RAMAN, improving DM HTN CVA Dementia Nonverbal G tube Plan: Cont Levaquin #2 Empiric IV Vancomycin 09/19 SPcefepime # 1409/09 SP vanc #4 ( Cr increased) ICU care monitor temp and CBC DC COVID isolation isolation precaution per hospital protocol DW RN Thank you for this consult. [facility] will continue to follow the patient with you. Subjective Allergies: Coded Allergies: PENICILLINS (Verified Allergy, Unknown, 10/27/18) tolretas cephalosporins Subjective Tm 101.1 wbc increased Objective Vital Signs Last 24 Hour Vital Signs Date Time Temp Pulse Resp B/P (MAP) Pulse Ox O2 Delivery O2 Flow Rate FiO2 10/01/19 15:11 67 15 40 10/01/19 15:00 65 13 106/44 (64) 10/01/19 14:00 64 13 108/45 (66) 10/01/19 13:37 100.0 10/01/19 13:00 66 12 114/50 (71) 10/01/19 12:00 100.5 69 13 116/47 (70) 100 10/01/19 12:00 Mechanical Ventilator 10/01/19 12:00 40 10/01/19 12:00 74 10/01/19 11:15 70 16 40 10/01/19 11:00 70 13 131/49 (76) 100 10/01/19 10:00 74 14 113/44 (67) 10/01/19 09:00 73 13 119/55 (76) 100 10/01/19 08:31 78 120/85 10/01/19 08:30 100 10/01/19 08:00 69 10/01/19 08:00 101.1 70 14 113/56 (75) 88 10/01/19 08:00 Mechanical Ventilator 10/01/19 08:00 40 10/01/19 07:02 70 13 40 10/01/19 07:00 69 15 117/48 (71) 97 10/01/19 06:30 71 14 10/01/19 06:00 71 14 116/44 (68) 94 10/01/19 05:00 71 14 115/47 (69) 94 10/01/19 04:00 Mechanical Ventilator 10/01/19 04:00 40 10/01/19 04:00 71 10/01/19 04:00 98.8 71 15 118/47 (70) 100 10/01/19 03:00 68 14 117/47 (70) 100 10/01/19 02:39 73 15 40 10/01/19 02:00 71 15 115/47 (69) 100 10/01/19 01:00 71 16 114/44 (67) 100 10/01/19 00:00 68 10/01/19 00:00 40 10/01/19 00:00 99.1 68 13 116/54 (74) 99 10/01/19 00:00 Mechanical Ventilator 09/30/19 23:00 66 15 122/55 (77) 98 09/30/19 22:46 67 12 40 09/30/19 22:00 66 14 109/44 (65) 99 09/30/19 21:37 69 105/51 09/30/19 21:00 68 15 112/44 (66) 99 09/30/19 20:00 65 09/30/19 20:00 Mechanical Ventilator 09/30/19 20:00 98.9 68 15 105/51 (69) 100 09/30/19 20:00 40 09/30/19 19:09 64 12 40 09/30/19 19:00 67 13 115/48 (70) 100 09/30/19 18:00 68 13 119/47 (71) 100 09/30/19 17:10 69 14 40 09/30/19 17:00 67 13 116/48 (70) 100 Height (Feet): 5 Height (Inches): 11.00 Weight (Pounds): 151 Objective Gen: NAD. well nourished HEENT: ETT. oral secretions Resp: coarse. equal chest rise. regular rate and rhythm. Abd: Soft. no TTP. nondistended. G tube site c/d/i. Neuro: opens eyes to voice and follows simple commands Laboratory Tests Test 10/01/19 05:18 White Blood Count 13.3 K/UL (4.8-10.8) H Red Blood Count 3.23 M/UL (4.70-6.10) L Hemoglobin 8.6 G/DL (14.2-18.0) L Hematocrit 26.4 % (42.0-52.0) L Mean Corpuscular Volume 82 FL (80-99) Mean Corpuscular Hemoglobin 26.6 PG (27.0-31.0) L Mean Corpuscular Hemoglobin Concent 32.6 G/DL (32.0-36.0) Red Cell Distribution Width 17.3 % (11.6-14.8) H Platelet Count 503 K/UL (150-450) H Mean Platelet Volume 5.3 FL (6.5-10.1) L Neutrophils (%) (Auto) 78.8 % (45.0-75.0) H Lymphocytes (%) (Auto) 11.3 % (20.0-45.0) L Monocytes (%) (Auto) 7.7 % (1.0-10.0) Eosinophils (%) (Auto) 1.7 % (0.0-3.0) Basophils (%) (Auto) 0.5 % (0.0-2.0) Sodium Level 141 MMOL/L (136-145) Potassium Level 4.3 MMOL/L (3.5-5.1) Chloride Level 107 MMOL/L (98-107) Carbon Dioxide Level 28 MMOL/L (21-32) Anion Gap 6 mmol/L (5-15) Blood Urea Nitrogen 24 mg/dL (7-18) H Creatinine 1.2 MG/DL (0.55-1.30) Estimat Glomerular Filtration Rate > 60 mL/min (>60) Glucose Level 143 MG/DL (74-106) H Calcium Level 8.1 MG/DL (8.5-10.1) L Phosphorus Level 3.6 MG/DL (2.5-4.9) Magnesium Level 2.2 MG/DL (1.8-2.4) Total Bilirubin 0.3 MG/DL (0.2-1.0) Gamma Glutamyl Transpeptidase 189 U/L (5-85) H Aspartate Amino Transf (AST/SGOT) 109 U/L (15-37) H Alanine Aminotransferase (ALT/SGPT) 101 U/L (12-78) H Alkaline Phosphatase 256 U/L (46-116) H Pro-B-Type Natriuretic Peptide 404 pg/mL (0-125) H Total Protein 7.0 G/DL (6.4-8.2) Albumin 1.4 G/DL (3.4-5.0) L Globulin 5.6 g/dL Albumin/Globulin Ratio 0.2 (1.0-2.7) L Current Medications Medications (Trade) Dose Ordered Sig/Kike Route PRN Reason Start Time Stop Time Status Last Admin Dose Admin Acetaminophen (Tylenol) 650 mg Q4H PRN ORAL fever 09/24/19 03:00 10/07/19 02:54 10/01/19 13:07 Amlodipine Besylate (Norvasc) 5 mg BID@0900,2100 NG 09/24/19 21:00 10/22/19 08:59 10/01/19 08:31 Heparin Sodium (Porcine) (Heparin 5000 units/ml) 5,000 units EVERY 12 HOURS SUBQ 09/24/19 09:00 10/22/19 08:59 10/01/19 08:32 Levofloxacin (Levaquin) 750 mg DAILY ORAL 09/30/19 13:00 10/07/19 12:59 09/30/19 13:24 Levothyroxine Sodium (Synthroid) 75 mcg DAILY@0630 ORAL 09/24/19 06:30 10/07/19 08:29 10/01/19 06:07 Nitroglycerin (Ntg) 0.4 mg Q5M PRN SL Prn Chest Pain 09/24/19 02:30 10/07/19 04:29 Ondansetron HCl (Zofran) 4 mg Q6H PRN IVP Nausea & Vomiting 09/24/19 03:00 10/07/19 02:57 09/28/19 21:10 Pantoprazole (Protonix) 40 mg Q12HR IVP 09/24/19 09:00 10/10/19 08:59 10/01/19 08:30 Polyethylene Glycol (Miralax) 17 gm DAILYPRN PRN ORAL Constipation 09/24/19 03:00 10/07/19 02:57 Promethazine HCl/ Codeine (Phenergan with Codeine) 5 ml Q4H PRN ORAL For Cough 09/24/19 03:00 10/07/19 02:58 Quetiapine Fumarate (SEROqueL) 25 mg Q8H PRN NG Agitation 09/24/19 02:35 10/30/19 02:34 09/30/19 03:10 Danielle Roach M.D. Oct 01, 2019 17:01
[2019-10-01] MEDS: Vancomycin 1gm in D5W 275ml IVPB SCH (18:40)
--- NOTE | 2019-10-01 19:47 | Surgery Progress Note ---
Surgery Progress Note Subjective Symptoms: worse Additional Comments febrile leukocytosis on support Objective Last 24 Hour Vital Signs Date Time Temp Pulse Resp B/P (MAP) Pulse Ox O2 Delivery O2 Flow Rate FiO2 10/01/19 19:17 68 16 40 10/01/19 18:39 71 13 112/45 (67) 100 10/01/19 18:00 100.0 76 13 100 10/01/19 17:00 0 25 135/65 (88) 100 10/01/19 16:00 76 13 144/58 (86) 100 10/01/19 16:00 86 10/01/19 16:00 Mechanical Ventilator 10/01/19 16:00 40 10/01/19 15:11 67 15 40 10/01/19 15:00 65 13 106/44 (64) 10/01/19 14:00 64 13 108/45 (66) 10/01/19 13:37 100.0 10/01/19 13:00 66 12 114/50 (71) 10/01/19 12:00 100.5 69 13 116/47 (70) 100 10/01/19 12:00 Mechanical Ventilator 10/01/19 12:00 40 10/01/19 12:00 74 10/01/19 11:15 70 16 40 10/01/19 11:00 70 13 131/49 (76) 100 10/01/19 10:00 74 14 113/44 (67) 10/01/19 09:00 73 13 119/55 (76) 100 10/01/19 08:31 78 120/85 10/01/19 08:30 100 10/01/19 08:00 69 10/01/19 08:00 101.1 70 14 113/56 (75) 88 10/01/19 08:00 Mechanical Ventilator 10/01/19 08:00 40 10/01/19 07:02 70 13 40 10/01/19 07:00 69 15 117/48 (71) 97 10/01/19 06:30 71 14 10/01/19 06:00 71 14 116/44 (68) 94 10/01/19 05:00 71 14 115/47 (69) 94 10/01/19 04:00 Mechanical Ventilator 10/01/19 04:00 40 10/01/19 04:00 71 10/01/19 04:00 98.8 71 15 118/47 (70) 100 10/01/19 03:00 68 14 117/47 (70) 100 10/01/19 02:39 73 15 40 10/01/19 02:00 71 15 115/47 (69) 100 10/01/19 01:00 71 16 114/44 (67) 100 10/01/19 00:00 68 10/01/19 00:00 40 10/01/19 00:00 99.1 68 13 116/54 (74) 99 10/01/19 00:00 Mechanical Ventilator 09/30/19 23:00 66 15 122/55 (77) 98 09/30/19 22:46 67 12 40 09/30/19 22:00 66 14 109/44 (65) 99 09/30/19 21:37 69 105/51 09/30/19 21:00 68 15 112/44 (66) 99 09/30/19 20:00 65 09/30/19 20:00 Mechanical Ventilator 09/30/19 20:00 98.9 68 15 105/51 (69) 100 09/30/19 20:00 40 I&O Intake and Output 09/30/19 10/01/19 19:00 07:00 Intake Total 480 ml 650 ml Output Total 505 ml 330 ml Balance -25 ml 320 ml Intake Free Water 50 ml Tube Feeding 480 ml 600 ml Output Urine Total 505 ml 330 ml # Bowel Movements 1 Dressing: other Wound: other Drains: other Cardiovascular: RSR Respiratory: decreased breath sounds Abdomen: soft, non-distended, decreased bowel sounds Extremities: no cyanosis, other Laboratory Tests Test 10/01/19 05:18 White Blood Count 13.3 K/UL (4.8-10.8) H Red Blood Count 3.23 M/UL (4.70-6.10) L Hemoglobin 8.6 G/DL (14.2-18.0) L Hematocrit 26.4 % (42.0-52.0) L Mean Corpuscular Volume 82 FL (80-99) Mean Corpuscular Hemoglobin 26.6 PG (27.0-31.0) L Mean Corpuscular Hemoglobin Concent 32.6 G/DL (32.0-36.0) Red Cell Distribution Width 17.3 % (11.6-14.8) H Platelet Count 503 K/UL (150-450) H Mean Platelet Volume 5.3 FL (6.5-10.1) L Neutrophils (%) (Auto) 78.8 % (45.0-75.0) H Lymphocytes (%) (Auto) 11.3 % (20.0-45.0) L Monocytes (%) (Auto) 7.7 % (1.0-10.0) Eosinophils (%) (Auto) 1.7 % (0.0-3.0) Basophils (%) (Auto) 0.5 % (0.0-2.0) Sodium Level 141 MMOL/L (136-145) Potassium Level 4.3 MMOL/L (3.5-5.1) Chloride Level 107 MMOL/L (98-107) Carbon Dioxide Level 28 MMOL/L (21-32) Anion Gap 6 mmol/L (5-15) Blood Urea Nitrogen 24 mg/dL (7-18) H Creatinine 1.2 MG/DL (0.55-1.30) Estimat Glomerular Filtration Rate > 60 mL/min (>60) Glucose Level 143 MG/DL (74-106) H Calcium Level 8.1 MG/DL (8.5-10.1) L Phosphorus Level 3.6 MG/DL (2.5-4.9) Magnesium Level 2.2 MG/DL (1.8-2.4) Total Bilirubin 0.3 MG/DL (0.2-1.0) Gamma Glutamyl Transpeptidase 189 U/L (5-85) H Aspartate Amino Transf (AST/SGOT) 109 U/L (15-37) H Alanine Aminotransferase (ALT/SGPT) 101 U/L (12-78) H Alkaline Phosphatase 256 U/L (46-116) H Pro-B-Type Natriuretic Peptide 404 pg/mL (0-125) H Total Protein 7.0 G/DL (6.4-8.2) Albumin 1.4 G/DL (3.4-5.0) L Globulin 5.6 g/dL Albumin/Globulin Ratio 0.2 (1.0-2.7) L Plan Problems: (1) UTI (urinary tract infection) (2) Acute respiratory failure Assessment & Plan: There is infiltrate suspected in the right perihilar region obscuring the right hilum. There is a hazy opacity that may partially be accounted for by pleural fluid on the right. Reticular densities are present on the left in the perihilar aspect of the lung. Endotracheal tube is in good position just above the anselmo. Heart size is normal. IMPRESSION: Suspected perihilar airspace disease in the right lung suspicious for pneumonia. Reticular nodular infiltrate in the left lung noted also. Right pleural effusion suspected. Endotracheal tube in good position cont vents support Lungs: Similar bilateral interstitial prominence, greater on the right. Stable right perihilar, mid and lower lung opacities. Similar left lung base opacity. Pleural space: Small left pleural effusion is stable. Loculated right pleural effusion is stable. No pneumothorax. Heart: Unremarkable. No cardiomegaly. Mediastinum: Unremarkable. Bones/joints: Unremarkable. Tubes, lines and devices: Endotracheal tube has been pulled back and is 10 cm above the anselmo near the thoracic inlet. IMPRESSION: Endotracheal tube has been pulled back and is 10 cm above the anselmo near the thoracic inlet. Remainder findings are stable. may need thoracentesis soon Moderate size right pleural effusion with right upper and lower lobe atelectasis/consolidation, as well as mild pulmonary edema.. 1. Patchy opacities throughout the right lung left mid and lower lung, similar to slightly increased. Possible small bilateral pleural effusions. 2. Endotracheal tube terminates in the region of the lower thoracic trachea above the anselmo. (3) Sepsis Assessment & Plan: Pt cachetic and presented on admission with multiple pressure injuries. Partial thickness pressure injury Cleft of L ear(L)1.2cm x (W)0.4cm. Base of wound moist and viable with small amt sanguineous exudate. Partial thickness pressure injury cleft of R ear(L)0.5cm x (W)0.7cm. Base of wound moist and viable Periwound erythematous.Small amt sanguineous exudate noted. Sacral DTPI(L)5cm x (W)10.5cm. Base of injury is purple with maroon borders. Coccygeal bony protrusion with darker skin tone, and small opening noted to R gluteus (L)0.5cm x (W)0.5cm within base of injury. No further skin breakdown periwound. Intact blood blister noted to R 1st metatarsal head(L)1.1cm x (W)2.5cm. DTPI noted to L heel extending into plantar aspect. Base of injury presents as an intact blood filled blister. Periwound is boggy with non-blanching erythema. R heel is boggy but blanchable. wounds unlikely etiology of sepsis respiratory but given current condition high risk for breakdown and worsening will monitor closely discussed with RN and staff great care being provided coded acls intubated in ICU prognosis guarded Tx.Plan: Apply Betadine to clefts of R and L ears. Pad oxygen tubing with gauze and keep oxygen tubing loose. Apply Moisture Barrier Paste to Sacrum. Cover with Optifoam drsg. Change every 3 days and prn. Apply Betadine to L heel. Cover with Optifoam drsg. Change every 3 days and prn. Apply Betadine to R 1st metatarsal head. Cover with Optifoam drsg. Change every 3 days and prn. Apply Cavilon Skin Barrier R heel. Cover with Optifoam drsg. Change every 7 days and prn. Reposition at least every 2hours or as tolerated. Off-load heels with pillow. on air mattress but not very comfortable appearing cont current care / pulm management (4) Severe anemia (5) Nosocomial pneumonia (6) Atrial fibrillation (7) Acute metabolic encephalopathy (8) History of CVA (cerebrovascular accident) (9) Diabetes mellitus (10) Hypothyroidism (11) Alzheimer's dementia (12) PVC (premature ventricular contraction) (13) Hypertension (14) Squamous cell esophageal cancer (15) Feeding by G-tube (16) Dehydration (17) Anemia (18) Severe malnutrition Assessment & Plan: DAILY ESTIMATED NEEDS: Needs based on underweight, suspected wt loss, wounds/ 63kg 25-33 kcals/kg 2026-0953 total kcals 1.25-2 g protein/kg 78-126 g total protein 25-30 mL/kg 1213-2598 total fluid mLs NUTRITION DIAGNOSIS: * Swallowing difficulty R/T dysphagia w/ h/o CVA as evidenced by now s/p recent PEG placement (08/08/19), on GT feeds, held at time, s/p code blue (09/07), orally intubated, now extubated. * Increased kcal/prot intake needs R/T suspected significant wt loss and underweight status, wounds as evidenced by 10lbs/6.7% wt loss in 1 month, 76% IBW w/ BMI of 18.4, admitted w/ DTPI wound @ sacrum, Lt heel, partial thickness pressure injury cleft of R L ear. CURRENT TF:Osmolite 1.2 @ 60ml/hr x 22 hrs ENTERAL NUTRITION RECOMMENDATIONS: Osmolite 1.2 @ 60ml/hr x 22 hrs + Prosource x 1 to provide 1320ml, 1584kcal, 73g +11g prot, 1082ml free water - Add Prosource x 1 to meet protein needs - HOLD 1 hr before and after synthroid meds. add Prosource 1 pack daily to better meet est pro needs - Flush per MD/ HOB over 30 degrees WITH ELEV BG, rec TF change to Glucerna 1.2 w/ a goal of 60ml/hr x22 hrs to provide 1320ml, 1584kcal, 79g prot ADDITIONAL RECOMMENDATIONS: * PER SNF: HT=6'1" WT= 139lbs ("August weight" from SNF) -> calibrated bedscale wt * Monitor K, need for TF change (K 5.9 upon adm, now wnl) * Wound care: add Vit C 500mg QD + Wesley 1pkt BID via PEG * Monitor BGs, need for NISS: h/o DM per MD (checking A1C not suggested given low hgb) (19) Encounter for PEG (percutaneous endoscopic gastrostomy) (20) At high risk for aspiration (21) Pleural effusion (22) Suspected COVID-19 virus infection Jan Mora Oct 01, 2019 19:47
[2019-10-02] VITALS (24 sets, daily range): BP systolic 98–182; BP diastolic 40–63
[2019-10-02 06:07] LABS: BASOPHILS % (AUTO) 0.6 % (0.0-2.0); EOSINOPHILS % (AUTO) 2.2 % (0.0-3.0); HEMATOCRIT 28.5 % (42.0-52.0); HEMOGLOBIN 9.2 G/DL (14.2-18.0); LYMPHOCYTES % (AUTO) 17.2 % (20.0-45.0); MEAN CORPUSCULAR VOLUME 82 FL (80-99); MONOCYTES % (AUTO) 5.8 % (1.0-10.0); NEUTROPHILS % (AUTO) 74.3 % (45.0-75.0); PLATELET COUNT 512 K/UL (150-450); RED BLOOD COUNT 3.49 M/UL (4.70-6.10); RED CELL DISTRIBUTION WIDTH 17.4 % (11.6-14.8)
[2019-10-02 06:12] LABS: ANION GAP 9 mmol/L (5-15); BLOOD UREA NITROGEN 24 mg/dL (7-18); CALCIUM 8.9 MG/DL (8.5-10.1); CARBON DIOXIDE 27 MMOL/L (21-32); CHLORIDE 104 MMOL/L (98-107); CREATININE 1.2 MG/DL (0.55-1.30); POTASSIUM 4.3 MMOL/L (3.5-5.1); SODIUM 140 MMOL/L (136-145)
[2019-10-02] MEDS: Pantoprazole Inj IVP SCH ×2 (09:36→20:32)
[2019-10-02] MEDS: Levofloxacin 750mg tab ORAL SCH (09:36)
[2019-10-02] MEDS: Heparin 5000 units/ml inj SUBQ SCH ×2 (09:37→20:33)
--- NOTE | 2019-10-02 09:46 | Pulmonolgy Critical Care Note ---
Critical Care - Asmt/Plan Assessment/Plan: ASSESSMENT Sepsis Acute respiratory failure requiring intubation, s/p extubation 09/19 s/p CP arrest and reintubation 09/23 Pseudomonas and Proteus pneumonia recurrent pleural effusion, s/p thoracentesis 09/18 and 09/27 Acute kidney injury, -secondary to dehydration Suspected COVID 19 infection -ruled out x 2 Hypothyroidism with elevated TSH Severe anemia Transaminitis Dysphagia, feeding by G-tube Cerebrovascular disease with hx of CVA Diabetes mellitus Severe protein calorie malnutrition Multiply pressure injury, present on admission Seizure disorder Alzheimer dementia Anemia PLAN of CARE ICU vent support, pulmonary toilet CXR 09/30 noted, on weaning protocol, continue so far unable to wean fup with CXR and ABG in am s/p 09/[address] effusion - 2050 ml, 09/27 -2300 ml, pleural fluid cx NGT x2 pathology - NGT for malignant cells x2 initial CXR with near complete resolution, no complication HONEY CoV PCR x 2 -NGT; off isolation influenza screen NGT BCX NGT SCX + Pseudomonas, Proteus, repeated SCX 09/25 + Pseudomonas UCX + Abi , likely colonization completed abx as per ID 09/29 started on Levaquin aspiration precautions, GTF , protein supplements as per RD monitor H&H with goal to keep Hgb above 7 BS management trend LFT creat stable avoid nephrotoxics continue Protonix monitor HH at baseline and consider GI eval if further drop elevated D dimer, venous Duplex BLE negative troponin NGT wound care as per surgeon recommendation Synthroid dose uptitrated, repeat TSH in 3 wks supportive care case discussed and evaluated by supervising physician Critical Care - Objective Last 24 Hour Vital Signs Date Time Temp Pulse Resp B/P (MAP) Pulse Ox O2 Delivery O2 Flow Rate FiO2 10/02/19 09:00 66 108/46 10/02/19 07:00 70 17 107/46 (66) 100 10/02/19 06:25 69 18 10/02/19 06:00 70 17 108/40 (62) 100 10/02/19 05:04 71 20 40 10/02/19 05:00 70 17 112/42 (65) 100 10/02/19 04:00 40 10/02/19 04:00 99.1 93 16 119/57 (77) 100 10/02/19 04:00 86 10/02/19 04:00 Mechanical Ventilator 10/02/19 03:15 75 21 40 10/02/19 03:00 71 17 136/55 (82) 100 10/02/19 02:00 69 17 133/63 (86) 100 10/02/19 01:20 64 15 40 10/02/19 01:00 65 17 117/42 (67) 100 10/02/19 00:00 66 10/02/19 00:00 40 10/02/19 00:00 99.8 64 12 115/43 (67) 100 10/02/19 00:00 Mechanical Ventilator 10/01/19 23:22 67 19 40 10/01/19 23:00 64 13 120/46 (70) 100 10/01/19 22:00 66 17 126/50 (75) 100 10/01/19 21:26 63 114/54 10/01/19 21:00 63 18 114/54 (74) 100 10/01/19 20:41 61 15 40 10/01/19 20:00 98.7 65 16 121/47 (71) 100 10/01/19 20:00 Mechanical Ventilator 10/01/19 20:00 40 10/01/19 20:00 62 10/01/19 19:17 68 16 40 10/01/19 19:00 66 12 115/47 (69) 100 10/01/19 18:39 71 13 112/45 (67) 100 10/01/19 18:00 100.0 76 13 100 10/01/19 17:00 0 25 135/65 (88) 100 10/01/19 16:00 76 13 144/58 (86) 100 10/01/19 16:00 86 10/01/19 16:00 Mechanical Ventilator 10/01/19 16:00 40 10/01/19 15:11 67 15 40 10/01/19 15:00 65 13 106/44 (64) 10/01/19 14:00 64 13 108/45 (66) 10/01/19 13:37 100.0 10/01/19 13:00 66 12 114/50 (71) 10/01/19 12:00 100.5 69 13 116/47 (70) 100 10/01/19 12:00 Mechanical Ventilator 10/01/19 12:00 40 10/01/19 12:00 74 10/01/19 11:15 70 16 40 10/01/19 11:00 70 13 131/49 (76) 100 10/01/19 10:00 74 14 113/44 (67) Objective: Condition: critical, intubated HEENT: atraumatic, normocephalic, OP with ET in place, intact Lungs: overall clear Heart: HR/BP stable Abdomen: soft, active bowel sounds, G tube Extremities: no C/C/E Critical Care - Subjective ROS Limited/Unobtainable: Yes Interval Events: remains intubated fevers yesterday, currently afebrile leukocytosis with some trend up Condition: critical EKG Rhythm: Sinus Rhythm - with some PAC FI02: 40 Vent Support Breath Rate: 12 Vent Support Mode: AC Vent Tidal Volume: 550 Sputum Amount: Small PEEP: 5.0 PIP: 28 Secretions: secretionssmall amount, yellow color, thick consistency Tube Feeding Amount: 0 I&O: Intake and Output 10/01/19 10/02/19 19:00 07:00 Intake Total 770 ml 690 ml Output Total 355 ml 445 ml Balance 415 ml 245 ml Intake Free Water 50 ml 90 ml Tube Feeding 660 ml 600 ml Other 60 ml Output Urine Total 355 ml 445 ml CXR: CXR 4.25 1. Patchy opacities throughout the right lung left mid and lower lung, similar to slightly increased. Possible small bilateral pleural effusions. 2. Endotracheal tube terminates in the region of the lower thoracic trachea above the naselmo. ET-Tube: 7.5 ET Position: 26 Miranda Pimentel NP Oct 02, 2019 09:46
--- NOTE | 2019-10-02 13:00 | GI Progress Note ---
Assessment/Plan Problems: (1) Encounter for PEG (percutaneous endoscopic gastrostomy) ICD Codes: Z43.1 - Encounter for attention to gastrostomy SNOMED: 170777774, 132983795 (2) Severe malnutrition ICD Codes: E43 - Unspecified severe protein-calorie malnutrition SNOMED: 01939607 (3) Anemia ICD Codes: D64.9 - Anemia, unspecified SNOMED: 796293248 (4) Dehydration ICD Codes: E86.0 - Dehydration SNOMED: 26189930 (5) Feeding by G-tube ICD Codes: Z93.1 - Gastrostomy status SNOMED: 439615483, 095592465, 720573327 Status: unchanged Status Narrative Discussed with Dr. Rosario. Assessment/Plan 1. Esophageal cancer. 2. Dysphagia. 3. Diabetes type 2. 4. Dementia. 5. CVA. 6. Hypothyroidism. 7. Seizure disorder. 8. Iron deficiency anemia. 9. Respiratory failure. 10. Dysphagia with G-tube stable H&H GT has been changed and working well GT flushes abx per id pulm care will fu The patient was seen and examined at bedside and all new and available data was reviewed in the patients chart. I agree with the above findings, impression and plan. (Patient seen earlier today. Signature stamp does not reflect patient encounter time.). - Darrick Rosario MD Subjective Subjective limited Objective Last 24 Hour Vital Signs Date Time Temp Pulse Resp B/P (MAP) Pulse Ox O2 Delivery O2 Flow Rate FiO2 10/02/19 12:00 77 15 104/47 (66) 100 10/02/19 12:00 40 10/02/19 12:00 Mechanical Ventilator 10/02/19 11:38 79 13 40 10/02/19 11:00 94 38 182/54 (96) 100 10/02/19 10:00 73 13 102/45 (64) 100 10/02/19 09:00 68 13 108/46 (66) 100 10/02/19 09:00 66 108/46 10/02/19 08:00 40 10/02/19 08:00 99.4 70 14 115/43 (67) 100 10/02/19 08:00 Mechanical Ventilator 10/02/19 07:48 72 14 40 10/02/19 07:00 70 17 107/46 (66) 100 10/02/19 06:25 69 18 10/02/19 06:00 70 17 108/40 (62) 100 10/02/19 05:04 71 20 40 10/02/19 05:00 70 17 112/42 (65) 100 10/02/19 04:00 40 10/02/19 04:00 99.1 93 16 119/57 (77) 100 10/02/19 04:00 86 10/02/19 04:00 Mechanical Ventilator 10/02/19 03:15 75 21 40 10/02/19 03:00 71 17 136/55 (82) 100 10/02/19 02:00 69 17 133/63 (86) 100 10/02/19 01:20 64 15 40 10/02/19 01:00 65 17 117/42 (67) 100 10/02/19 00:00 66 10/02/19 00:00 40 10/02/19 00:00 99.8 64 12 115/43 (67) 100 10/02/19 00:00 Mechanical Ventilator 10/01/19 23:22 67 19 40 10/01/19 23:00 64 13 120/46 (70) 100 10/01/19 22:00 66 17 126/50 (75) 100 10/01/19 21:26 63 114/54 10/01/19 21:00 63 18 114/54 (74) 100 10/01/19 20:41 61 15 40 10/01/19 20:00 98.7 65 16 121/47 (71) 100 10/01/19 20:00 Mechanical Ventilator 10/01/19 20:00 40 10/01/19 20:00 62 10/01/19 19:17 68 16 40 10/01/19 19:00 66 12 115/47 (69) 100 10/01/19 18:39 71 13 112/45 (67) 100 10/01/19 18:00 100.0 76 13 100 10/01/19 17:00 0 25 135/65 (88) 100 10/01/19 16:00 76 13 144/58 (86) 100 10/01/19 16:00 86 10/01/19 16:00 Mechanical Ventilator 10/01/19 16:00 40 10/01/19 15:11 67 15 40 10/01/19 15:00 65 13 106/44 (64) 10/01/19 14:00 64 13 108/45 (66) 10/01/19 13:37 100.0 Intake and Output 10/01/19 10/02/19 19:00 07:00 Intake Total 770 ml 690 ml Output Total 355 ml 445 ml Balance 415 ml 245 ml Intake Free Water 50 ml 90 ml Tube Feeding 660 ml 600 ml Other 60 ml Output Urine Total 355 ml 445 ml Laboratory Tests Test 10/02/19 04:00 White Blood Count 15.0 K/UL (4.8-10.8) H Red Blood Count 3.49 M/UL (4.70-6.10) L Hemoglobin 9.2 G/DL (14.2-18.0) L Hematocrit 28.5 % (42.0-52.0) L Mean Corpuscular Volume 82 FL (80-99) Mean Corpuscular Hemoglobin 26.5 PG (27.0-31.0) L Mean Corpuscular Hemoglobin Concent 32.4 G/DL (32.0-36.0) Red Cell Distribution Width 17.4 % (11.6-14.8) H Platelet Count 512 K/UL (150-450) H Mean Platelet Volume 5.3 FL (6.5-10.1) L Neutrophils (%) (Auto) 74.3 % (45.0-75.0) Lymphocytes (%) (Auto) 17.2 % (20.0-45.0) L Monocytes (%) (Auto) 5.8 % (1.0-10.0) Eosinophils (%) (Auto) 2.2 % (0.0-3.0) Basophils (%) (Auto) 0.6 % (0.0-2.0) Sodium Level 140 MMOL/L (136-145) Potassium Level 4.3 MMOL/L (3.5-5.1) Chloride Level 104 MMOL/L (98-107) Carbon Dioxide Level 27 MMOL/L (21-32) Anion Gap 9 mmol/L (5-15) Blood Urea Nitrogen 24 mg/dL (7-18) H Creatinine 1.2 MG/DL (0.55-1.30) Estimat Glomerular Filtration Rate > 60 mL/min (>60) Glucose Level 97 MG/DL (74-106) Calcium Level 8.9 MG/DL (8.5-10.1) Height (Feet): 5 Height (Inches): 11.00 Weight (Pounds): 152 General Appearance: lethargic Cardiovascular: normal rate Abdominal Exam: soft Chani Arroyo [employer] Oct 02, 2019 13:00
--- NOTE | 2019-10-02 13:19 | Nephrology Progress Note ---
Assessment/Plan Problem List: (1) RAMAN (acute kidney injury) Assessment: Serum creatinine normalized with hydration (2) Dehydration (3) Suspected COVID-19 virus infection (4) Anemia (5) Sepsis (6) Diabetes mellitus (7) Hypothyroidism Assessment - Acute renal failure - Severe anemia - Sepsis, pneumonia, acute respiratory failure, suspected: Viewed 19 virus infection - Diabetes mellitus - Hypothyroidism - Feeding by G-tube - Squamous cell esophageal cancer - History of CVA (cerebrovascular accident) Plan Patient was coded early September 23 morning and back in ICU intubated Serum creatinine miguel to 1.5, now back to normal Stable from renal standpoint of view at this point Previously: Pneumonia SARS-CoV neg x2 MRSA screen pos sp cx: PSA and proteus Changes Seroquel to "as needed" due to bradycardia Discontinue IV fluid Monitor renal parameters, serum creatinine Adjust electrolytes with supplements Increase Synthroid dose Avoid nephrotoxic's as possible Ventilator management Urine studies Per orders Subjective ROS Limited/Unobtainable: Yes Objective Objective Last 24 Hour Vital Signs Date Time Temp Pulse Resp B/P (MAP) Pulse Ox O2 Delivery O2 Flow Rate FiO2 10/02/19 12:00 77 15 104/47 (66) 100 10/02/19 12:00 40 10/02/19 12:00 Mechanical Ventilator 10/02/19 11:38 79 13 40 10/02/19 11:00 94 38 182/54 (96) 100 10/02/19 10:00 73 13 102/45 (64) 100 10/02/19 09:00 68 13 108/46 (66) 100 10/02/19 09:00 66 108/46 10/02/19 08:00 40 10/02/19 08:00 99.4 70 14 115/43 (67) 100 10/02/19 08:00 Mechanical Ventilator 10/02/19 07:48 72 14 40 10/02/19 07:00 70 17 107/46 (66) 100 10/02/19 06:25 69 18 10/02/19 06:00 70 17 108/40 (62) 100 10/02/19 05:04 71 20 40 10/02/19 05:00 70 17 112/42 (65) 100 10/02/19 04:00 40 10/02/19 04:00 99.1 93 16 119/57 (77) 100 10/02/19 04:00 86 10/02/19 04:00 Mechanical Ventilator 10/02/19 03:15 75 21 40 10/02/19 03:00 71 17 136/55 (82) 100 10/02/19 02:00 69 17 133/63 (86) 100 10/02/19 01:20 64 15 40 10/02/19 01:00 65 17 117/42 (67) 100 10/02/19 00:00 66 10/02/19 00:00 40 10/02/19 00:00 99.8 64 12 115/43 (67) 100 10/02/19 00:00 Mechanical Ventilator 10/01/19 23:22 67 19 40 10/01/19 23:00 64 13 120/46 (70) 100 10/01/19 22:00 66 17 126/50 (75) 100 10/01/19 21:26 63 114/54 10/01/19 21:00 63 18 114/54 (74) 100 10/01/19 20:41 61 15 40 10/01/19 20:00 98.7 65 16 121/47 (71) 100 10/01/19 20:00 Mechanical Ventilator 10/01/19 20:00 40 10/01/19 20:00 62 10/01/19 19:17 68 16 40 10/01/19 19:00 66 12 115/47 (69) 100 10/01/19 18:39 71 13 112/45 (67) 100 10/01/19 18:00 100.0 76 13 100 10/01/19 17:00 0 25 135/65 (88) 100 10/01/19 16:00 76 13 144/58 (86) 100 10/01/19 16:00 86 10/01/19 16:00 Mechanical Ventilator 10/01/19 16:00 40 10/01/19 15:11 67 15 40 10/01/19 15:00 65 13 106/44 (64) 10/01/19 14:00 64 13 108/45 (66) 10/01/19 13:37 100.0 Intake and Output 10/01/19 10/02/19 19:00 07:00 Intake Total 770 ml 690 ml Output Total 355 ml 445 ml Balance 415 ml 245 ml Intake Free Water 50 ml 90 ml Tube Feeding 660 ml 600 ml Other 60 ml Output Urine Total 355 ml 445 ml Laboratory Tests 10/02/19 04:00: White Blood Count 15.0H, Red Blood Count 3.49L, Hemoglobin 9.2L, Hematocrit 28.5L, Mean Corpuscular Volume 82, Mean Corpuscular Hemoglobin 26.5L, Mean Corpuscular Hemoglobin Concent 32.4, Red Cell Distribution Width 17.4H, Platelet Count 512H, Mean Platelet Volume 5.3L, Neutrophils (%) (Auto) 74.3, Lymphocytes (%) (Auto) 17.2L, Monocytes (%) (Auto) 5.8, Eosinophils (%) (Auto) 2.2, Basophils (%) (Auto) 0.6, Sodium Level 140, Potassium Level 4.3, Chloride Level 104, Carbon Dioxide Level 27, Anion Gap 9, Blood Urea Nitrogen 24H, Creatinine 1.2, Estimat Glomerular Filtration Rate > 60, Glucose Level 97, Calcium Level 8.9 Height (Feet): 5 Height (Inches): 11.00 Weight (Pounds): 152 General Appearance: no apparent distress EENT: other - Intubated and vented Cardiovascular: tachycardia, other - Rate variable Respiratory/Chest: decreased breath sounds Abdomen: distended Objective no change Clovis Benites MD Oct 02, 2019 13:19
--- NOTE | 2019-10-02 14:24 | Internal Med Progress Note ---
Subjective Date of Service: Oct 02, 2019 Physician Name Xander Bah Attending Physician Lamont Hayes MD Current Medications Medications (Trade) Dose Ordered Sig/Kike Route PRN Reason Start Time Stop Time Status Last Admin Dose Admin Acetaminophen (Tylenol) 650 mg Q4H PRN ORAL fever 09/24/19 03:00 10/07/19 02:54 10/01/19 13:07 Amlodipine Besylate (Norvasc) 5 mg BID@0900,2100 NG 09/24/19 21:00 10/22/19 08:59 10/01/19 21:26 Heparin Sodium (Porcine) (Heparin 5000 units/ml) 5,000 units EVERY 12 HOURS SUBQ 09/24/19 09:00 10/22/19 08:59 10/02/19 09:37 Levofloxacin (Levaquin) 750 mg DAILY ORAL 09/30/19 13:00 10/07/19 12:59 10/02/19 09:36 Levothyroxine Sodium (Synthroid) 75 mcg DAILY@0630 ORAL 09/24/19 06:30 10/07/19 08:29 10/02/19 06:11 Nitroglycerin (Ntg) 0.4 mg Q5M PRN SL Prn Chest Pain 09/24/19 02:30 10/07/19 04:29 Ondansetron HCl (Zofran) 4 mg Q6H PRN IVP Nausea & Vomiting 09/24/19 03:00 10/07/19 02:57 09/28/19 21:10 Pantoprazole (Protonix) 40 mg Q12HR IVP 09/24/19 09:00 10/10/19 08:59 10/02/19 09:36 Polyethylene Glycol (Miralax) 17 gm DAILYPRN PRN ORAL Constipation 09/24/19 03:00 10/07/19 02:57 Promethazine HCl/ Codeine (Phenergan with Codeine) 5 ml Q4H PRN ORAL For Cough 09/24/19 03:00 10/07/19 02:58 Quetiapine Fumarate (SEROqueL) 25 mg Q8H PRN NG Agitation 09/24/19 02:35 10/30/19 02:34 09/30/19 03:10 Vancomycin HCl (Vanco rx to dose) 1 ea DAILY PRN MISC Per rx protocol 10/01/19 17:15 10/31/19 17:14 Vancomycin HCl 1 gm/Dextrose 275 ml @ 183.708 mls/hr Q24H IVPB 10/01/19 18:00 10/06/19 17:59 10/01/19 18:40 Allergies: Coded Allergies: PENICILLINS (Verified Allergy, Unknown, 10/27/18) tolretas cephalosporins ROS Limited/Unobtainable: Yes Subjective 84 YO M admitted with cough and congestion. Cover for Int Med-Dr Hayes. Reintubated 09/24/19 after cardiopulmonary arrest-see code blue note. ICU Objective Last Vital Signs Date Time Temp Pulse Resp B/P (MAP) Pulse Ox O2 Delivery O2 Flow Rate FiO2 10/02/19 14:00 83 20 125/49 (74) 100 10/02/19 12:00 40 10/02/19 12:00 Mechanical Ventilator 10/02/19 08:00 99.4 09/23/19 21:00 3.0 Laboratory Tests Test 10/02/19 04:00 White Blood Count 15.0 K/UL (4.8-10.8) H Red Blood Count 3.49 M/UL (4.70-6.10) L Hemoglobin 9.2 G/DL (14.2-18.0) L Hematocrit 28.5 % (42.0-52.0) L Mean Corpuscular Volume 82 FL (80-99) Mean Corpuscular Hemoglobin 26.5 PG (27.0-31.0) L Mean Corpuscular Hemoglobin Concent 32.4 G/DL (32.0-36.0) Red Cell Distribution Width 17.4 % (11.6-14.8) H Platelet Count 512 K/UL (150-450) H Mean Platelet Volume 5.3 FL (6.5-10.1) L Neutrophils (%) (Auto) 74.3 % (45.0-75.0) Lymphocytes (%) (Auto) 17.2 % (20.0-45.0) L Monocytes (%) (Auto) 5.8 % (1.0-10.0) Eosinophils (%) (Auto) 2.2 % (0.0-3.0) Basophils (%) (Auto) 0.6 % (0.0-2.0) Sodium Level 140 MMOL/L (136-145) Potassium Level 4.3 MMOL/L (3.5-5.1) Chloride Level 104 MMOL/L (98-107) Carbon Dioxide Level 27 MMOL/L (21-32) Anion Gap 9 mmol/L (5-15) Blood Urea Nitrogen 24 mg/dL (7-18) H Creatinine 1.2 MG/DL (0.55-1.30) Estimat Glomerular Filtration Rate > 60 mL/min (>60) Glucose Level 97 MG/DL (74-106) Calcium Level 8.9 MG/DL (8.5-10.1) Intake and Output 10/01/19 10/02/19 19:00 07:00 Intake Total 770 ml 690 ml Output Total 355 ml 445 ml Balance 415 ml 245 ml Intake Free Water 50 ml 90 ml Tube Feeding 660 ml 600 ml Other 60 ml Output Urine Total 355 ml 445 ml Objective PHYSICAL EXAMINATION: GENERAL: The patient is a thin-appearing male, in no apparent distress. HEENT: Eyes, pupils are equal and responsive to light and accommodation. Extraocular movements are intact. NECK: Supple without lymphadenopathy. CHEST: Mech vent; Lungs are clear to auscultation bilaterally with decreased breath sounds on the right. There are no wheezes appreciated. ABDOMEN: Soft, nontender, and nondistended. Positive bowel sounds. No evidence of hepatosplenomegaly. Currently, no rebound or guarding noted. EXTREMITIES: Negative for clubbing, cyanosis, or edema. RECTAL/GENITAL: Not performed. NEUROLOGIC: Cranial nerves II through XII are grossly intact without focal deficits. Assessment/Plan Assessment/Plan ASSESSMENT: This is an 84-year-old male with: 1. Possible right pneumonia=pseudamonas 2. Urinary tract infection=jennifer 3. Right pleural effusion. 4. Esophageal mass. 5. Dysphagia. 6. Diabetes. 7. Alzheimer's dementia. 8. Cerebrovascular disease. 9. Hypothyroidism. 10. Seizure disorder. 11. Iron deficiency anemia. 13. Respiratory failure 14. S/P cardiopulmonary arrest 15. Anemia TREATMENT: 1. Right perihilar Pneumonia/pleural effusion. COVID 19 and Influenza negative. A Pulmonary consultation has been obtained with Dr. Vania Hui. S/P right thoracentesis 09/19/19. We will follow recommendation of Pulmonary. ID=Dr Roach ABX= S/P cefepime 2. Urinary tract infection. . A urine culture =jennifer 3. Right pleural effusion. As above, a Pulmonary consultation has been obtained with Dr. Vania Hui. The patient may require thoracentesis during this hospitalization. 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 A Gastroenterology consultation has been obtained with Dr. Darrick Rosario. 5. Dysphagia. The patient is status post PEG placement on 08/08/2019 at [facility] by Dr. Darrick Rosario. 6. Diabetes type 2. A NovoLog sliding scale has been instituted. 7. Alzheimer's dementia. 8. Cerebrovascular disease, status post cerebrovascular accident. 9. Hypothyroidism. Continue levothyroxine as above. 10. Seizure disorder. 11. Iron deficiency anemia. 12. reintubated 09/24/19-see code blue note 13. S/P transfusion 2 units PRBC Xander Bah MD Oct 02, 2019 14:24
[2019-10-02 17:30] LABS: BILIRUBIN, URINE NEGATIVE (NEGATIVE); GLUCOSE, URINE (UA) NEGATIVE (NEGATIVE); KETONES,URINE NEGATIVE (NEGATIVE); LEUKOCYTE ESTERASE ,URINE 3+ (NEGATIVE); NITRITE,URINE NEGATIVE (NEGATIVE); PH,URINE 6.5 (4.5-8.0); PROTEIN,URINE 2+ (NEGATIVE); UROBILINOGEN,URINE 4 MG/DL (0.0-1.0)
[2019-10-02 17:32] LABS: APPEARANCE,URINE SLIGHTLY CLOUDY; COLOR,URINE YELLOW
[2019-10-02] MEDS: Vancomycin 1gm in D5W 275ml IVPB SCH (18:09)
--- NOTE | 2019-10-02 22:27 | Surgery Progress Note ---
Surgery Progress Note Subjective Additional Comments still unable to wean fi02 40% peep 5 tolerating tube feeds Objective Last 24 Hour Vital Signs Date Time Temp Pulse Resp B/P (MAP) Pulse Ox O2 Delivery O2 Flow Rate FiO2 10/02/19 20:34 75 109/47 10/02/19 19:30 78 13 40 10/02/19 19:00 72 12 98/47 (64) 100 10/02/19 18:00 81 16 110/49 (69) 100 10/02/19 17:00 81 19 132/55 (80) 100 10/02/19 16:00 40 10/02/19 16:00 Mechanical Ventilator 10/02/19 16:00 99.8 75 12 102/49 (66) 100 10/02/19 15:49 75 14 40 10/02/19 15:16 81 10/02/19 15:00 75 14 103/48 (66) 100 10/02/19 14:00 83 20 125/49 (74) 100 10/02/19 13:00 91 20 147/44 (78) 100 10/02/19 12:15 76 10/02/19 12:00 99.3 77 15 104/47 (66) 100 10/02/19 12:00 40 10/02/19 12:00 Mechanical Ventilator 10/02/19 11:38 79 13 40 10/02/19 11:00 94 38 182/54 (96) 100 10/02/19 10:00 73 13 102/45 (64) 100 10/02/19 09:00 68 13 108/46 (66) 100 10/02/19 09:00 66 108/46 10/02/19 08:19 68 10/02/19 08:00 40 10/02/19 08:00 99.4 70 14 115/43 (67) 100 10/02/19 08:00 Mechanical Ventilator 10/02/19 07:48 72 14 40 10/02/19 07:00 70 17 107/46 (66) 100 10/02/19 06:25 69 18 10/02/19 06:00 70 17 108/40 (62) 100 10/02/19 05:04 71 20 40 10/02/19 05:00 70 17 112/42 (65) 100 10/02/19 04:00 40 10/02/19 04:00 99.1 93 16 119/57 (77) 100 10/02/19 04:00 86 10/02/19 04:00 Mechanical Ventilator 10/02/19 03:15 75 21 40 10/02/19 03:00 71 17 136/55 (82) 100 10/02/19 02:00 69 17 133/63 (86) 100 10/02/19 01:20 64 15 40 10/02/19 01:00 65 17 117/42 (67) 100 10/02/19 00:00 66 10/02/19 00:00 40 10/02/19 00:00 99.8 64 12 115/43 (67) 100 10/02/19 00:00 Mechanical Ventilator 10/01/19 23:22 67 19 40 10/01/19 23:00 64 13 120/46 (70) 100 I&O Intake and Output 10/01/19 10/02/19 19:00 07:00 Intake Total 770 ml 690 ml Output Total 355 ml 445 ml Balance 415 ml 245 ml Intake Free Water 50 ml 90 ml Tube Feeding 660 ml 600 ml Other 60 ml Output Urine Total 355 ml 445 ml Dressing: other Wound: other Drains: other Cardiovascular: RSR Respiratory: decreased breath sounds Abdomen: soft, non-tender, present bowel sounds Extremities: no cyanosis Laboratory Tests Test 10/02/19 04:00 10/02/19 15:00 White Blood Count 15.0 K/UL (4.8-10.8) H Red Blood Count 3.49 M/UL (4.70-6.10) L Hemoglobin 9.2 G/DL (14.2-18.0) L Hematocrit 28.5 % (42.0-52.0) L Mean Corpuscular Volume 82 FL (80-99) Mean Corpuscular Hemoglobin 26.5 PG (27.0-31.0) L Mean Corpuscular Hemoglobin Concent 32.4 G/DL (32.0-36.0) Red Cell Distribution Width 17.4 % (11.6-14.8) H Platelet Count 512 K/UL (150-450) H Mean Platelet Volume 5.3 FL (6.5-10.1) L Neutrophils (%) (Auto) 74.3 % (45.0-75.0) Lymphocytes (%) (Auto) 17.2 % (20.0-45.0) L Monocytes (%) (Auto) 5.8 % (1.0-10.0) Eosinophils (%) (Auto) 2.2 % (0.0-3.0) Basophils (%) (Auto) 0.6 % (0.0-2.0) Sodium Level 140 MMOL/L (136-145) Potassium Level 4.3 MMOL/L (3.5-5.1) Chloride Level 104 MMOL/L (98-107) Carbon Dioxide Level 27 MMOL/L (21-32) Anion Gap 9 mmol/L (5-15) Blood Urea Nitrogen 24 mg/dL (7-18) H Creatinine 1.2 MG/DL (0.55-1.30) Estimat Glomerular Filtration Rate > 60 mL/min (>60) Glucose Level 97 MG/DL (74-106) Calcium Level 8.9 MG/DL (8.5-10.1) Urine Color Yellow Urine Appearance Slightly cloudy Urine pH 6.5 (4.5-8.0) Urine Specific [place] 1.010 (1.005-1.035) Urine Protein 2+ (NEGATIVE) H Urine Glucose (UA) Negative (NEGATIVE) Urine Ketones Negative (NEGATIVE) Urine Blood 2+ (NEGATIVE) H Urine Nitrite Negative (NEGATIVE) Urine Bilirubin Negative (NEGATIVE) Urine Urobilinogen 4 MG/DL (0.0-1.0) H Urine Leukocyte Esterase 3+ (NEGATIVE) H Urine RBC 5-10 /HPF (0 - 0) H Urine WBC Tntc /HPF (0 - 0) H Urine Squamous Epithelial Cells Few /LPF (NONE/OCC) Urine Bacteria Many /HPF (NONE) H Urine Yeast Many /HPF (NONE) H Plan Problems: (1) UTI (urinary tract infection) (2) Acute respiratory failure Assessment & Plan: There is infiltrate suspected in the right perihilar region obscuring the right hilum. There is a hazy opacity that may partially be accounted for by pleural fluid on the right. Reticular densities are present on the left in the perihilar aspect of the lung. Endotracheal tube is in good position just above the anselmo. Heart size is normal. IMPRESSION: Suspected perihilar airspace disease in the right lung suspicious for pneumonia. Reticular nodular infiltrate in the left lung noted also. Right pleural effusion suspected. Endotracheal tube in good position cont vents support Lungs: Similar bilateral interstitial prominence, greater on the right. Stable right perihilar, mid and lower lung opacities. Similar left lung base opacity. Pleural space: Small left pleural effusion is stable. Loculated right pleural effusion is stable. No pneumothorax. Heart: Unremarkable. No cardiomegaly. Mediastinum: Unremarkable. Bones/joints: Unremarkable. Tubes, lines and devices: Endotracheal tube has been pulled back and is 10 cm above the anselmo near the thoracic inlet. IMPRESSION: Endotracheal tube has been pulled back and is 10 cm above the anselmo near the thoracic inlet. Remainder findings are stable. may need thoracentesis soon Moderate size right pleural effusion with right upper and lower lobe atelectasis/consolidation, as well as mild pulmonary edema.. 1. Patchy opacities throughout the right lung left mid and lower lung, similar to slightly increased. Possible small bilateral pleural effusions. 2. Endotracheal tube terminates in the region of the lower thoracic trachea above the anselmo. consider trach (3) Sepsis Assessment & Plan: Pt cachetic and presented on admission with multiple pressure injuries. Partial thickness pressure injury Cleft of L ear(L)1.2cm x (W)0.4cm. Base of wound moist and viable with small amt sanguineous exudate. Partial thickness pressure injury cleft of R ear(L)0.5cm x (W)0.7cm. Base of wound moist and viable Periwound erythematous.Small amt sanguineous exudate noted. Sacral DTPI(L)5cm x (W)10.5cm. Base of injury is purple with maroon borders. Coccygeal bony protrusion with darker skin tone, and small opening noted to R gluteus (L)0.5cm x (W)0.5cm within base of injury. No further skin breakdown periwound. Intact blood blister noted to R 1st metatarsal head(L)1.1cm x (W)2.5cm. DTPI noted to L heel extending into plantar aspect. Base of injury presents as an intact blood filled blister. Periwound is boggy with non-blanching erythema. R heel is boggy but blanchable. wounds unlikely etiology of sepsis respiratory but given current condition high risk for breakdown and worsening will monitor closely discussed with RN and staff great care being provided coded acls intubated in ICU prognosis guarded Tx.Plan: Apply Betadine to clefts of R and L ears. Pad oxygen tubing with gauze and keep oxygen tubing loose. Apply Moisture Barrier Paste to Sacrum. Cover with Optifoam drsg. Change every 3 days and prn. Apply Betadine to L heel. Cover with Optifoam drsg. Change every 3 days and prn. Apply Betadine to R 1st metatarsal head. Cover with Optifoam drsg. Change every 3 days and prn. Apply Cavilon Skin Barrier R heel. Cover with Optifoam drsg. Change every 7 days and prn. Reposition at least every 2hours or as tolerated. Off-load heels with pillow. 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 * Increased kcal/prot intake needs R/T suspected significant wt loss and underweight status, wounds as evidenced by 10lbs/6.7% wt loss in 1 month, 76% IBW w/ BMI of 18.4, admitted w/ DTPI wound @ sacrum, Lt heel, partial thickness pressure injury cleft of R L ear. CURRENT TF:Osmolite 1.2 @ 60ml/hr x 22 hrs ENTERAL NUTRITION RECOMMENDATIONS: Osmolite 1.2 @ 60ml/hr x 22 hrs + Prosource x 1 to provide 1320ml, 1584kcal, 73g +11g prot, 1082ml free water - Add Prosource x 1 to meet protein needs - HOLD 1 hr before and after synthroid meds. add Prosource 1 pack daily to better meet est pro needs - Flush per MD/ HOB over 30 degrees WITH ELEV BG, rec TF change to Glucerna 1.2 w/ a goal of 60ml/hr x22 hrs to provide 1320ml, 1584kcal, 79g prot ADDITIONAL RECOMMENDATIONS: * PER SNF: HT=6'1" WT= 139lbs ("August weight" from SNF) -> calibrated bedscale wt * Monitor K, need for TF change (K 5.9 upon adm, now wnl) * Wound care: add Vit C 500mg QD + Wesley 1pkt BID via PEG * Monitor BGs, need for NISS: h/o DM per MD (checking A1C not suggested given low hgb) (19) Encounter for PEG (percutaneous endoscopic gastrostomy) (20) At high risk for aspiration (21) Pleural effusion (22) Suspected COVID-19 virus infection Jan Mora Oct 02, 2019 22:27
[2019-10-03] VITALS (24 sets, daily range): BP systolic 103–160; BP diastolic 45–66
[2019-10-03 06:03] LABS: BASOPHILS % (AUTO) 0.8 % (0.0-2.0); HEMATOCRIT 25.3 % (42.0-52.0); HEMOGLOBIN 8.2 G/DL (14.2-18.0); LYMPHOCYTES % (AUTO) 15.7 % (20.0-45.0); MEAN CORPUSCULAR VOLUME 82 FL (80-99); MONOCYTES % (AUTO) 7.9 % (1.0-10.0); NEUTROPHILS % (AUTO) 73.7 % (45.0-75.0); PLATELET COUNT 497 K/UL (150-450); RED BLOOD COUNT 3.09 M/UL (4.70-6.10); RED CELL DISTRIBUTION WIDTH 17.2 % (11.6-14.8)
[2019-10-03 06:37] LABS: ALANINE AMINOTRANSFERASE 60 U/L (12-78); ALBUMIN 1.5 G/DL (3.4-5.0); ALBUMIN/GLOBULIN RATIO 0.3 (1.0-2.7); ALKALINE PHOSPHATASE 221 U/L (46-116); ANION GAP 8 mmol/L (5-15); ASPARTATE AMINO TRANSFERASE 72 U/L (15-37); BILIRUBIN,TOTAL 0.3 MG/DL (0.2-1.0); BLOOD UREA NITROGEN 25 mg/dL (7-18); CALCIUM 8.8 MG/DL (8.5-10.1); CARBON DIOXIDE 26 MMOL/L (21-32); CHLORIDE 105 MMOL/L (98-107); CREATININE 1.2 MG/DL (0.55-1.30); PHOSPHORUS 3.7 MG/DL (2.5-4.9); POTASSIUM 4.6 MMOL/L (3.5-5.1); SODIUM 139 MMOL/L (136-145)
[2019-10-03] MEDS: Pantoprazole Inj IVP SCH ×2 (08:27→20:34)
[2019-10-03] MEDS: Levofloxacin 750mg tab ORAL SCH (08:28)
[2019-10-03] MEDS: Heparin 5000 units/ml inj SUBQ SCH ×2 (08:29→20:36)
--- NOTE | 2019-10-03 09:10 | General Progress Note ---
Assessment/Plan Status: unchanged Assessment/Plan: 1. Esophageal cancer. 2. Dysphagia. 3. Diabetes type 2. 4. Dementia. 5. CVA. 6. Hypothyroidism. 7. Seizure disorder. 8. Iron deficiency anemia. 9. Respiratory failure. 10. Dysphagia with G-tube stable H&H GT has been changed and working well GT flushes abx per id pulm care will fu Subjective ROS Limited/Unobtainable: No Allergies: Coded Allergies: PENICILLINS (Verified Allergy, Unknown, 10/27/18) tolretas cephalosporins Objective Last 24 Hour Vital Signs Date Time Temp Pulse Resp B/P (MAP) Pulse Ox O2 Delivery O2 Flow Rate FiO2 10/03/19 08:28 75 125/56 10/03/19 08:00 40 10/03/19 08:00 Mechanical Ventilator 10/03/19 08:00 76 16 121/56 (77) 100 10/03/19 07:12 72 15 40 10/03/19 07:00 76 14 115/51 (72) 100 10/03/19 06:32 72 15 10/03/19 06:00 81 15 131/56 (81) 100 10/03/19 05:00 81 17 120/59 (79) 100 10/03/19 04:00 98.3 77 12 118/57 (77) 100 10/03/19 04:00 77 10/03/19 04:00 Mechanical Ventilator 10/03/19 04:00 40 10/03/19 03:25 74 12 40 10/03/19 03:00 92 24 158/66 (96) 100 10/03/19 02:00 84 18 128/62 (84) 100 10/03/19 01:00 72 13 115/49 (71) 100 10/03/19 00:00 78 10/03/19 00:00 Mechanical Ventilator 10/03/19 00:00 40 10/03/19 00:00 99.4 78 38 160/58 (92) 100 10/02/19 23:05 73 15 40 10/02/19 23:00 72 13 113/52 (72) 100 10/02/19 22:00 75 16 102/49 (66) 100 10/02/19 21:00 99.4 84 20 154/58 (90) 100 10/02/19 20:34 75 109/47 10/02/19 20:00 40 10/02/19 20:00 Mechanical Ventilator 10/02/19 20:00 77 12 109/47 (67) 87 10/02/19 19:30 78 13 40 10/02/19 19:21 75 10/02/19 19:00 72 12 98/47 (64) 100 10/02/19 18:00 81 16 110/49 (69) 100 10/02/19 17:00 81 19 132/55 (80) 100 10/02/19 16:00 40 10/02/19 16:00 Mechanical Ventilator 10/02/19 16:00 99.8 75 12 102/49 (66) 100 10/02/19 15:49 75 14 40 10/02/19 15:16 81 10/02/19 15:00 75 14 103/48 (66) 100 10/02/19 14:00 83 20 125/49 (74) 100 10/02/19 13:00 91 20 147/44 (78) 100 10/02/19 12:15 76 10/02/19 12:00 99.3 77 15 104/47 (66) 100 10/02/19 12:00 40 10/02/19 12:00 Mechanical Ventilator 10/02/19 11:38 79 13 40 10/02/19 11:00 94 38 182/54 (96) 100 10/02/19 10:00 73 13 102/45 (64) 100 Intake and Output 10/02/19 10/03/19 19:00 07:00 Intake Total 830 ml 823.708 ml Output Total 430 ml 460 ml Balance 400 ml 363.708 ml Intake Free Water 60 ml IV Total 183.708 ml Tube Feeding 720 ml 540 ml Other 50 ml 100 ml Output Urine Total 430 ml 460 ml Laboratory Tests 10/02/19 15:00: Urine Color Yellow, Urine Appearance Slightly cloudy, Urine pH 6.5, Urine Specific [place] 1.010, Urine Protein 2+H, Urine Glucose (UA) Negative, Urine Ketones Negative, Urine Blood 2+H, Urine Nitrite Negative, Urine Bilirubin Negative, Urine Urobilinogen 4H, Urine Leukocyte Esterase 3+H, Urine RBC 5-10H, Urine WBC TntcH, Urine Squamous Epithelial Cells Few, Urine Bacteria ManyH, Urine Yeast ManyH 10/03/19 04:45: White Blood Count 14.0H, Red Blood Count 3.09L, Hemoglobin 8.2L, Hematocrit 25.3L, Mean Corpuscular Volume 82, Mean Corpuscular Hemoglobin 26.6L, Mean Corpuscular Hemoglobin Concent 32.5, Red Cell Distribution Width 17.2H, Platelet Count 497H, Mean Platelet Volume 5.3L, Neutrophils (%) (Auto) 73.7, Lymphocytes (%) (Auto) 15.7L, Monocytes (%) (Auto) 7.9, Eosinophils (%) (Auto) 2.0, Basophils (%) (Auto) 0.8, Sodium Level 139, Potassium Level 4.6, Chloride Level 105, Carbon Dioxide Level 26, Anion Gap 8, Blood Urea Nitrogen 25H, Creatinine 1.2, Estimat Glomerular Filtration Rate > 60, Glucose Level 108H, Calcium Level 8.8, Phosphorus Level 3.7, Magnesium Level 2.2, Total Bilirubin 0.3, Aspartate Amino Transf (AST/SGOT) 72H, Alanine Aminotransferase (ALT/SGPT) 60, Alkaline Phosphatase 221H, C-Reactive Protein, Quantitative 20.5H, Pro-B- Type Natriuretic Peptide 561H, Total Protein 7.2, Albumin 1.5L, Globulin 5.7, Albumin/Globulin Ratio 0.3L Height (Feet): 5 Height (Inches): 11.00 Weight (Pounds): 144 General Appearance: no apparent distress EENT: normal ENT inspection Neck: supple Cardiovascular: normal rate Respiratory/Chest: decreased breath sounds Abdomen: normal bowel sounds, non tender, soft Extremities: non-tender Darrick Rosario MD Oct 03, 2019 09:10
--- NOTE | 2019-10-03 10:19 | Pulmonolgy Critical Care Note ---
Critical Care - Asmt/Plan Problems: (1) Acute respiratory failure Assessment & Plan: got reintubated (2) Pleural effusion Assessment & Plan: s/p thoracentesis times 2 (3) Nosocomial pneumonia (4) Sepsis (5) Squamous cell esophageal cancer (6) Diabetes mellitus (7) Severe malnutrition (8) Alzheimer's dementia (9) History of CVA (cerebrovascular accident) (10) Feeding by G-tube Respiratory: adjust tidal volume, adjust FIO2, CXR Cardiac: continue to monitor HR/BP Renal: F/U I&O, check electrolytes Infectious Disease: check cultures, continue antibiotics - levofloxacin and vancomycin Gastrointestinal: continue feedings/current rate Endocrine: monitor blood sugar, continue sliding scale insulin Hematologic: transfuse if hgb<8.5 Neurologic: keep patient comfortable Affect: PRN ativan Prophylaxis: Heparin Notes 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, 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 with: nurses, consultants, binder caser, other - ethics consult Critical Care - Objective Last 24 Hour Vital Signs Date Time Temp Pulse Resp B/P (MAP) Pulse Ox O2 Delivery O2 Flow Rate FiO2 10/03/19 10:00 75 19 125/55 (78) 100 10/03/19 09:00 99.6 72 15 111/52 (71) 100 10/03/19 08:28 75 125/56 10/03/19 08:00 40 10/03/19 08:00 Mechanical Ventilator 10/03/19 08:00 76 16 121/56 (77) 100 10/03/19 07:40 78 10/03/19 07:12 72 15 40 10/03/19 07:00 76 14 115/51 (72) 100 10/03/19 06:32 72 15 10/03/19 06:00 81 15 131/56 (81) 100 10/03/19 05:00 81 17 120/59 (79) 100 10/03/19 04:00 98.3 77 12 118/57 (77) 100 10/03/19 04:00 77 10/03/19 04:00 Mechanical Ventilator 10/03/19 04:00 40 10/03/19 03:25 74 12 40 10/03/19 03:00 92 24 158/66 (96) 100 10/03/19 02:00 84 18 128/62 (84) 100 10/03/19 01:00 72 13 115/49 (71) 100 10/03/19 00:00 78 10/03/19 00:00 Mechanical Ventilator 10/03/19 00:00 40 10/03/19 00:00 99.4 78 38 160/58 (92) 100 10/02/19 23:05 73 15 40 10/02/19 23:00 72 13 113/52 (72) 100 10/02/19 22:00 75 16 102/49 (66) 100 10/02/19 21:00 99.4 84 20 154/58 (90) 100 10/02/19 20:34 75 109/47 10/02/19 20:00 40 10/02/19 20:00 Mechanical Ventilator 10/02/19 20:00 77 12 109/47 (67) 87 10/02/19 19:30 78 13 40 10/02/19 19:21 75 10/02/19 19:00 72 12 98/47 (64) 100 10/02/19 18:00 81 16 110/49 (69) 100 10/02/19 17:00 81 19 132/55 (80) 100 10/02/19 16:00 40 10/02/19 16:00 Mechanical Ventilator 10/02/19 16:00 99.8 75 12 102/49 (66) 100 10/02/19 15:49 75 14 40 10/02/19 15:16 81 10/02/19 15:00 75 14 103/48 (66) 100 10/02/19 14:00 83 20 125/49 (74) 100 10/02/19 13:00 91 20 147/44 (78) 100 10/02/19 12:15 76 10/02/19 12:00 99.3 77 15 104/47 (66) 100 10/02/19 12:00 40 10/02/19 12:00 Mechanical Ventilator 10/02/19 11:38 79 13 40 10/02/19 11:00 94 38 182/54 (96) 100 Status: obtunded Condition: critical HEENT: atraumatic Heart: regular Abdomen: non-tender Extremities: no C/C/E Decubiti: location Micro: Microbiology Date/Time Source Procedure Growth Status 10/02/19 04:15 Blood Blood Culture - Preliminary NO GROWTH AFTER 24 HOURS Resulted 10/02/19 04:00 Blood Blood Culture - Preliminary NO GROWTH AFTER 24 HOURS Resulted 10/02/19 15:00 Urine,Clean Catch Urine Culture - Preliminary NO GROWTH Resulted Critical Care - Subjective ROS Limited/Unobtainable: Yes Condition: critical EKG Rhythm: Sinus Rhythm FI02: 40 Vent Support Breath Rate: 12 Vent Support Mode: AC Vent Tidal Volume: 550 Sputum Amount: Small PEEP: 5.0 PIP: 22 Tube Feeding Amount: 60 I&O: Intake and Output 10/02/19 10/03/19 19:00 07:00 Intake Total 830 ml 823.708 ml Output Total 430 ml 460 ml Balance 400 ml 363.708 ml Intake Free Water 60 ml IV Total 183.708 ml Tube Feeding 720 ml 540 ml Other 50 ml 100 ml Output Urine Total 430 ml 460 ml CXR: increasing pleural effusion ET-Tube: 7.5 ET Position: 26 Labs: Laboratory Tests Test 10/02/19 15:00 10/03/19 04:00 10/03/19 04:45 Urine Color Yellow Urine Appearance Slightly cloudy Urine pH 6.5 (4.5-8.0) Urine Specific [place] 1.010 (1.005-1.035) Urine Protein 2+ (NEGATIVE) H Urine Glucose (UA) Negative (NEGATIVE) Urine Ketones Negative (NEGATIVE) Urine Blood 2+ (NEGATIVE) H Urine Nitrite Negative (NEGATIVE) Urine Bilirubin Negative (NEGATIVE) Urine Urobilinogen 4 MG/DL (0.0-1.0) H Urine Leukocyte Esterase 3+ (NEGATIVE) H Urine RBC 5-10 /HPF (0 - 0) H Urine WBC Tntc /HPF (0 - 0) H Urine Squamous Epithelial Cells Few /LPF (NONE/OCC) Urine Bacteria Many /HPF (NONE) H Urine Yeast Many /HPF (NONE) H Arterial Blood pH 7.484 (7.350-7.450) Arterial Blood Partial Pressure CO2 35.9 mmHg (35.0-45.0) Arterial Blood Partial Pressure O2 149.8 mmHg (75.0-100.0) H Arterial Blood HCO3 26.4 mmol/L (22.0-26.0) H Arterial Blood Oxygen Saturation 98.9 % (95-100) Arterial Blood Base Excess 2.8 (-2-2) H Watson Test Positive White Blood Count 14.0 K/UL (4.8-10.8) H Red Blood Count 3.09 M/UL (4.70-6.10) L Hemoglobin 8.2 G/DL (14.2-18.0) L Hematocrit 25.3 % (42.0-52.0) L Mean Corpuscular Volume 82 FL (80-99) Mean Corpuscular Hemoglobin 26.6 PG (27.0-31.0) L Mean Corpuscular Hemoglobin Concent 32.5 G/DL (32.0-36.0) Red Cell Distribution Width 17.2 % (11.6-14.8) H Platelet Count 497 K/UL (150-450) H Mean Platelet Volume 5.3 FL (6.5-10.1) L Neutrophils (%) (Auto) 73.7 % (45.0-75.0) Lymphocytes (%) (Auto) 15.7 % (20.0-45.0) L Monocytes (%) (Auto) 7.9 % (1.0-10.0) Eosinophils (%) (Auto) 2.0 % (0.0-3.0) Basophils (%) (Auto) 0.8 % (0.0-2.0) Sodium Level 139 MMOL/L (136-145) Potassium Level 4.6 MMOL/L (3.5-5.1) Chloride Level 105 MMOL/L (98-107) Carbon Dioxide Level 26 MMOL/L (21-32) Anion Gap 8 mmol/L (5-15) Blood Urea Nitrogen 25 mg/dL (7-18) H Creatinine 1.2 MG/DL (0.55-1.30) Estimat Glomerular Filtration Rate > 60 mL/min (>60) Glucose Level 108 MG/DL (74-106) H Calcium Level 8.8 MG/DL (8.5-10.1) Phosphorus Level 3.7 MG/DL (2.5-4.9) Magnesium Level 2.2 MG/DL (1.8-2.4) Total Bilirubin 0.3 MG/DL (0.2-1.0) Aspartate Amino Transf (AST/SGOT) 72 U/L (15-37) H Alanine Aminotransferase (ALT/SGPT) 60 U/L (12-78) Alkaline Phosphatase 221 U/L (46-116) H C-Reactive Protein, Quantitative 20.5 mg/dL (0.00-0.90) H Pro-B-Type Natriuretic Peptide 561 pg/mL (0-125) H Total Protein 7.2 G/DL (6.4-8.2) Albumin 1.5 G/DL (3.4-5.0) L Globulin 5.7 g/dL Albumin/Globulin Ratio 0.3 (1.0-2.7) L Vania Hui MD Oct 03, 2019 10:19
--- NOTE | 2019-10-03 10:28 | Nephrology Progress Note ---
Assessment/Plan Problem List: (1) RAMAN (acute kidney injury) Assessment: Serum creatinine normalized with hydration (2) Dehydration (3) Suspected COVID-19 virus infection (4) Anemia (5) Sepsis (6) Diabetes mellitus (7) Hypothyroidism Assessment - Acute renal failure - Severe anemia - Sepsis, pneumonia, acute respiratory failure, suspected: Viewed 19 virus infection - Diabetes mellitus - Hypothyroidism - Feeding by G-tube - Squamous cell esophageal cancer - History of CVA (cerebrovascular accident) Plan Patient was coded early September 23 morning and back in ICU intubated Serum creatinine miguel to 1.5, now back to normal Stable from renal standpoint of view at this point Previously: Pneumonia SARS-CoV neg x2 MRSA screen pos sp cx: PSA and proteus Changes Seroquel to "as needed" due to bradycardia Discontinue IV fluid Monitor renal parameters, serum creatinine Adjust electrolytes with supplements Increase Synthroid dose Avoid nephrotoxic's as possible Ventilator management Urine studies Per orders Subjective ROS Limited/Unobtainable: Yes Objective Objective Last 24 Hour Vital Signs Date Time Temp Pulse Resp B/P (MAP) Pulse Ox O2 Delivery O2 Flow Rate FiO2 10/03/19 10:00 75 19 125/55 (78) 100 10/03/19 09:00 99.6 72 15 111/52 (71) 100 10/03/19 08:28 75 125/56 10/03/19 08:00 40 10/03/19 08:00 Mechanical Ventilator 10/03/19 08:00 76 16 121/56 (77) 100 10/03/19 07:40 78 10/03/19 07:12 72 15 40 10/03/19 07:00 76 14 115/51 (72) 100 10/03/19 06:32 72 15 10/03/19 06:00 81 15 131/56 (81) 100 10/03/19 05:00 81 17 120/59 (79) 100 10/03/19 04:00 98.3 77 12 118/57 (77) 100 10/03/19 04:00 77 10/03/19 04:00 Mechanical Ventilator 10/03/19 04:00 40 10/03/19 03:25 74 12 40 10/03/19 03:00 92 24 158/66 (96) 100 10/03/19 02:00 84 18 128/62 (84) 100 4/27/20 01:00 72 13 115/49 (71) 100 10/03/19 00:00 78 10/03/19 00:00 Mechanical Ventilator 10/03/19 00:00 40 10/03/19 00:00 99.4 78 38 160/58 (92) 100 10/02/19 23:05 73 15 40 10/02/19 23:00 72 13 113/52 (72) 100 10/02/19 22:00 75 16 102/49 (66) 100 10/02/19 21:00 99.4 84 20 154/58 (90) 100 10/02/19 20:34 75 109/47 10/02/19 20:00 40 10/02/19 20:00 Mechanical Ventilator 10/02/19 20:00 77 12 109/47 (67) 87 10/02/19 19:30 78 13 40 10/02/19 19:21 75 10/02/19 19:00 72 12 98/47 (64) 100 10/02/19 18:00 81 16 110/49 (69) 100 10/02/19 17:00 81 19 132/55 (80) 100 10/02/19 16:00 40 10/02/19 16:00 Mechanical Ventilator 10/02/19 16:00 99.8 75 12 102/49 (66) 100 10/02/19 15:49 75 14 40 10/02/19 15:16 81 10/02/19 15:00 75 14 103/48 (66) 100 10/02/19 14:00 83 20 125/49 (74) 100 10/02/19 13:00 91 20 147/44 (78) 100 10/02/19 12:15 76 10/02/19 12:00 99.3 77 15 104/47 (66) 100 10/02/19 12:00 40 10/02/19 12:00 Mechanical Ventilator 10/02/19 11:38 79 13 40 10/02/19 11:00 94 38 182/54 (96) 100 Intake and Output 10/02/19 10/03/19 19:00 07:00 Intake Total 830 ml 823.708 ml Output Total 430 ml 460 ml Balance 400 ml 363.708 ml Intake Free Water 60 ml IV Total 183.708 ml Tube Feeding 720 ml 540 ml Other 50 ml 100 ml Output Urine Total 430 ml 460 ml Laboratory Tests 10/02/19 15:00: Urine Color Yellow, Urine Appearance Slightly cloudy, Urine pH 6.5, Urine Specific [place] 1.010, Urine Protein 2+H, Urine Glucose (UA) Negative, Urine Ketones Negative, Urine Blood 2+H, Urine Nitrite Negative, Urine Bilirubin Negative, Urine Urobilinogen 4H, Urine Leukocyte Esterase 3+H, Urine RBC 5-10H, Urine WBC TntcH, Urine Squamous Epithelial Cells Few, Urine Bacteria ManyH, Urine Yeast ManyH 10/03/19 04:00: Arterial Blood pH 7.484H, Arterial Blood Partial Pressure CO2 35.9, Arterial Blood Partial Pressure O2 149.8H, Arterial Blood HCO3 26.4H, Arterial Blood Oxygen Saturation 98.9, Arterial Blood Base Excess 2.8H, Watson Test Positive 10/03/19 04:45: White Blood Count 14.0H, Red Blood Count 3.09L, Hemoglobin 8.2L, Hematocrit 25.3L, Mean Corpuscular Volume 82, Mean Corpuscular Hemoglobin 26.6L, Mean Corpuscular Hemoglobin Concent 32.5, Red Cell Distribution Width 17.2H, Platelet Count 497H, Mean Platelet Volume 5.3L, Neutrophils (%) (Auto) 73.7, Lymphocytes (%) (Auto) 15.7L, Monocytes (%) (Auto) 7.9, Eosinophils (%) (Auto) 2.0, Basophils (%) (Auto) 0.8, Sodium Level 139, Potassium Level 4.6, Chloride Level 105, Carbon Dioxide Level 26, Anion Gap 8, Blood Urea Nitrogen 25H, Creatinine 1.2, Estimat Glomerular Filtration Rate > 60, Glucose Level 108H, Calcium Level 8.8, Phosphorus Level 3.7, Magnesium Level 2.2, Total Bilirubin 0.3, Aspartate Amino Transf (AST/SGOT) 72H, Alanine Aminotransferase (ALT/SGPT) 60, Alkaline Phosphatase 221H, C-Reactive Protein, Quantitative 20.5H, Pro-B- Type Natriuretic Peptide 561H, Total Protein 7.2, Albumin 1.5L, Globulin 5.7, Albumin/Globulin Ratio 0.3L Height (Feet): 5 Height (Inches): 11.00 Weight (Pounds): 144 General Appearance: no apparent distress EENT: other - Remains intubated on ventilator Cardiovascular: normal rate Respiratory/Chest: decreased breath sounds Abdomen: distended Objective no change Clovis Benites MD Oct 03, 2019 10:28
--- NOTE | 2019-10-03 10:53 | Diagnostic Imaging Report ---
Indication: Shortness of breath Technique: One view of the chest Comparison: For 26/10/2019 Findings: There is evidence of increasing pleural fluid on the right as well as possibly increasing airspace disease. Less extensive airspace disease and pleural fluid are seen at the left lung base, unchanged. Stable satisfactory position of endotracheal tube. Normal heart size. Impression: Increasing pleural fluid and possibly parenchymal consolidation at the right lung base. Unchanged left basilar pleural and parenchymal disease.
--- NOTE | 2019-10-03 12:18 | Infectious Diseases Prog Note ---
Assessment/Plan Assessment/Plan 09/23 SP asystole cardiac arrest VDRF 09/23 Fever; improving Mild leukocytosis Probableu UTI -10/01 Bcx NTD u/a wbc tnct; ucx NTD PNA VDRF, sp intubation 09/08, sp extubation 09/18, re-intubated 09/23 SARS-CoV neg x2 MRSA screen pos 09/06 sp cx: PSA (hensley S) and proteus (hensley S) 10/02 CXR: Increasing pleural fluid and possibly parenchymal consolidation at the right lung base. Unchanged left basilar pleural and parenchymal disease. 09/30 CXR: Patchy opacities throughout the right lung left mid and lower lung, similar to slightly increased. Possible small bilateral pleural effusions. 09/29 CXR: Increasing right mid and lower lung opacity, may indicate increasing pleural fluid, increasing infiltrate, or both. 09/28 CXR: Developing hazy right basilar opacity. This could represent reaching layering pleural fluid. This could also represent reexpansion pulmonary edema given recent high-volume thoracentesis, or could represent developing ammonia or pulmonary edema. Hazy left basilar opacity, unchanged, may reflect parenchymal infiltrate versus pleural fluid versus both 09/25 CXR: Large right pleural effusion is again demonstrated. Small left pleural effusion is again demonstrated. Left lung is otherwise clear. sp cx PsA (R zozyn, S levo, gentamycin) 09/24 CXR: Moderate size right pleural effusion with right upper and lower lobe atelectasis/consolidation, as well as mild pulmonary edema.. 09/17 CXR: Similar bilateral interstitial prominence, greater on the right.Stable right perihilar, mid and lower lung opacities. Similar left lung base opacity. Small left pleural effusion is stable. Loculated right pleural effusion is stable. No pneumothorax. CXR: Right pleural effusion, also demonstrated on prior 08/09/2019 exam, slightly increased. Hazy right lung parenchymal opacity probably represents a superimposed pleural fluid but infiltrate also possible. R pleural effusion, exudative -09/18 SP thorancetesis; removal of 2050 mL fluid; Fluid prot 5 (serum prot 7.2 ); cx Neg QTc 419 RAMAN, improving DM HTN CVA Dementia Nonverbal G tube Plan: Cont Levaquin #4 Empiric IV Vancomycin #3 09/19 SPcefepime # /09/09 SP vanc #4 ( Cr increased) ICU care monitor temp and CBC f/u 3rd COVID testing given recurrent fever sp cx DW RN Thank you for this consult. [facility] will continue to follow the patient with you. Subjective Allergies: Coded Allergies: PENICILLINS (Verified Allergy, Unknown, 10/27/18) tolretas cephalosporins Subjective afebrile >36hrs mild leukocytosis Objective Vital Signs Last 24 Hour Vital Signs Date Time Temp Pulse Resp B/P (MAP) Pulse Ox O2 Delivery O2 Flow Rate FiO2 10/03/19 12:00 40 10/03/19 12:00 Mechanical Ventilator 10/03/19 11:00 79 18 120/56 (77) 100 10/03/19 10:30 79 22 40 10/03/19 10:00 75 19 125/55 (78) 100 10/03/19 09:00 99.6 72 15 111/52 (71) 100 10/03/19 08:28 75 125/56 10/03/19 08:00 40 10/03/19 08:00 Mechanical Ventilator 10/03/19 08:00 76 16 121/56 (77) 100 10/03/19 07:40 78 10/03/19 07:12 72 15 40 10/03/19 07:00 76 14 115/51 (72) 100 10/03/19 06:32 72 15 10/03/19 06:00 81 15 131/56 (81) 100 10/03/19 05:00 81 17 120/59 (79) 100 10/03/19 04:00 98.3 77 12 118/57 (77) 100 10/03/19 04:00 77 10/03/19 04:00 Mechanical Ventilator 10/03/19 04:00 40 10/03/19 03:25 74 12 40 10/03/19 03:00 92 24 158/66 (96) 100 10/03/19 02:00 84 18 128/62 (84) 100 10/03/19 01:00 72 13 115/49 (71) 100 10/03/19 00:00 78 10/03/19 00:00 Mechanical Ventilator 10/03/19 00:00 40 10/03/19 00:00 99.4 78 38 160/58 (92) 100 10/02/19 23:05 73 15 40 10/02/19 23:00 72 13 113/52 (72) 100 10/02/19 22:00 75 16 102/49 (66) 100 10/02/19 21:00 99.4 84 20 154/58 (90) 100 10/02/19 20:34 75 109/47 10/02/19 20:00 40 10/02/19 20:00 Mechanical Ventilator 10/02/19 20:00 77 12 109/47 (67) 87 10/02/19 19:30 78 13 40 10/02/19 19:21 75 10/02/19 19:00 72 12 98/47 (64) 100 10/02/19 18:00 81 16 110/49 (69) 100 10/02/19 17:00 81 19 132/55 (80) 100 10/02/19 16:00 40 10/02/19 16:00 Mechanical Ventilator 10/02/19 16:00 99.8 75 12 102/49 (66) 100 10/02/19 15:49 75 14 40 10/02/19 15:16 81 10/02/19 15:00 75 14 103/48 (66) 100 10/02/19 14:00 83 20 125/49 (74) 100 10/02/19 13:00 91 20 147/44 (78) 100 10/02/19 12:15 76 Height (Feet): 5 Height (Inches): 11.00 Weight (Pounds): 144 Objective Gen: NAD. well nourished HEENT: ETT. oral secretions Resp: coarse. equal chest rise. regular rate and rhythm. Abd: Soft. no TTP. nondistended. G tube site c/d/i. Neuro: opens eyes to voice and follows simple commands Microbiology Date/Time Source Procedure Growth Status 10/02/19 04:15 Blood Blood Culture - Preliminary NO GROWTH AFTER 24 HOURS Resulted 10/02/19 04:00 Blood Blood Culture - Preliminary NO GROWTH AFTER 24 HOURS Resulted 10/02/19 15:00 Urine,Clean Catch Urine Culture - Preliminary NO GROWTH Resulted Laboratory Tests Test 10/02/19 15:00 10/03/19 04:00 10/03/19 04:45 Urine Color Yellow Urine Appearance Slightly cloudy Urine pH 6.5 (4.5-8.0) Urine Specific [place] 1.010 (1.005-1.035) Urine Protein 2+ (NEGATIVE) H Urine Glucose (UA) Negative (NEGATIVE) Urine Ketones Negative (NEGATIVE) Urine Blood 2+ (NEGATIVE) H Urine Nitrite Negative (NEGATIVE) Urine Bilirubin Negative (NEGATIVE) Urine Urobilinogen 4 MG/DL (0.0-1.0) H Urine Leukocyte Esterase 3+ (NEGATIVE) H Urine RBC 5-10 /HPF (0 - 0) H Urine WBC Tntc /HPF (0 - 0) H Urine Squamous Epithelial Cells Few /LPF (NONE/OCC) Urine Bacteria Many /HPF (NONE) H Urine Yeast Many /HPF (NONE) H Arterial Blood pH 7.484 (7.350-7.450) Arterial Blood Partial Pressure CO2 35.9 mmHg (35.0-45.0) Arterial Blood Partial Pressure O2 149.8 mmHg (75.0-100.0) H Arterial Blood HCO3 26.4 mmol/L (22.0-26.0) H Arterial Blood Oxygen Saturation 98.9 % (95-100) Arterial Blood Base Excess 2.8 (-2-2) H Watson Test Positive White Blood Count 14.0 K/UL (4.8-10.8) H Red Blood Count 3.09 M/UL (4.70-6.10) L Hemoglobin 8.2 G/DL (14.2-18.0) L Hematocrit 25.3 % (42.0-52.0) L Mean Corpuscular Volume 82 FL (80-99) Mean Corpuscular Hemoglobin 26.6 PG (27.0-31.0) L Mean Corpuscular Hemoglobin Concent 32.5 G/DL (32.0-36.0) Red Cell Distribution Width 17.2 % (11.6-14.8) H Platelet Count 497 K/UL (150-450) H Mean Platelet Volume 5.3 FL (6.5-10.1) L Neutrophils (%) (Auto) 73.7 % (45.0-75.0) Lymphocytes (%) (Auto) 15.7 % (20.0-45.0) L Monocytes (%) (Auto) 7.9 % (1.0-10.0) Eosinophils (%) (Auto) 2.0 % (0.0-3.0) Basophils (%) (Auto) 0.8 % (0.0-2.0) Sodium Level 139 MMOL/L (136-145) Potassium Level 4.6 MMOL/L (3.5-5.1) Chloride Level 105 MMOL/L (98-107) Carbon Dioxide Level 26 MMOL/L (21-32) Anion Gap 8 mmol/L (5-15) Blood Urea Nitrogen 25 mg/dL (7-18) H Creatinine 1.2 MG/DL (0.55-1.30) Estimat Glomerular Filtration Rate > 60 mL/min (>60) Glucose Level 108 MG/DL (74-106) H Calcium Level 8.8 MG/DL (8.5-10.1) Phosphorus Level 3.7 MG/DL (2.5-4.9) Magnesium Level 2.2 MG/DL (1.8-2.4) Total Bilirubin 0.3 MG/DL (0.2-1.0) Aspartate Amino Transf (AST/SGOT) 72 U/L (15-37) H Alanine Aminotransferase (ALT/SGPT) 60 U/L (12-78) Alkaline Phosphatase 221 U/L (46-116) H C-Reactive Protein, Quantitative 20.5 mg/dL (0.00-0.90) H Pro-B-Type Natriuretic Peptide 561 pg/mL (0-125) H Total Protein 7.2 G/DL (6.4-8.2) Albumin 1.5 G/DL (3.4-5.0) L Globulin 5.7 g/dL Albumin/Globulin Ratio 0.3 (1.0-2.7) L Current Medications Medications (Trade) Dose Ordered Sig/Kike Route PRN Reason Start Time Stop Time Status Last Admin Dose Admin Acetaminophen (Tylenol) 650 mg Q4H PRN ORAL fever 09/24/19 03:00 10/07/19 02:54 10/01/19 13:07 Amlodipine Besylate (Norvasc) 5 mg BID@0900,2100 NG 09/24/19 21:00 10/22/19 08:59 10/03/19 08:28 Heparin Sodium (Porcine) (Heparin 5000 units/ml) 5,000 units EVERY 12 HOURS SUBQ 09/24/19 09:00 10/22/19 08:59 10/03/19 08:29 Levofloxacin (Levaquin) 750 mg DAILY ORAL 09/30/19 13:00 10/07/19 12:59 10/03/19 08:28 Levothyroxine Sodium (Synthroid) 75 mcg DAILY@0630 ORAL 09/24/19 06:30 10/07/19 08:29 10/03/19 05:47 Nitroglycerin (Ntg) 0.4 mg Q5M PRN SL Prn Chest Pain 09/24/19 02:30 10/07/19 04:29 Ondansetron HCl (Zofran) 4 mg Q6H PRN IVP Nausea & Vomiting 09/24/19 03:00 10/07/19 02:57 09/28/19 21:10 Pantoprazole (Protonix) 40 mg Q12HR IVP 09/24/19 09:00 10/10/19 08:59 10/03/19 08:27 Polyethylene Glycol (Miralax) 17 gm DAILYPRN PRN ORAL Constipation 09/24/19 03:00 10/07/19 02:57 Promethazine HCl/ Codeine (Phenergan with Codeine) 5 ml Q4H PRN ORAL For Cough 09/24/19 03:00 10/07/19 02:58 Quetiapine Fumarate (SEROqueL) 25 mg Q8H PRN NG Agitation 09/24/19 02:35 10/30/19 02:34 09/30/19 03:10 Vancomycin HCl (Vanco rx to dose) 1 ea DAILY PRN MISC Per rx protocol 10/01/19 17:15 10/31/19 17:14 Vancomycin HCl 1 gm/Dextrose 275 ml @ 183.708 mls/hr Q24H IVPB 10/01/19 18:00 10/06/19 17:59 10/02/19 18:09 Danielle Roach M.D. Oct 03, 2019 12:18
--- NOTE | 2019-10-03 16:47 | Surgery Progress Note ---
Surgery Progress Note Subjective Additional Comments not safe to come off vent not weaning well vent settings minimal likely comfort care instead given overall medical condition discussed with rug cleaner hand Objective Last 24 Hour Vital Signs Date Time Temp Pulse Resp B/P (MAP) Pulse Ox O2 Delivery O2 Flow Rate FiO2 10/03/19 16:00 40 10/03/19 16:00 70 13 108/45 (66) 100 10/03/19 16:00 Mechanical Ventilator 10/03/19 15:06 75 15 40 10/03/19 15:00 78 17 111/49 (69) 100 10/03/19 14:00 73 13 104/50 (68) 100 10/03/19 13:00 75 14 110/50 (70) 97 10/03/19 12:00 99.9 81 18 132/59 (83) 100 10/03/19 12:00 40 10/03/19 12:00 Mechanical Ventilator 10/03/19 11:49 82 10/03/19 11:00 79 18 120/56 (77) 100 10/03/19 10:30 79 22 40 10/03/19 10:00 75 19 125/55 (78) 100 10/03/19 09:00 99.6 72 15 111/52 (71) 100 10/03/19 08:28 75 125/56 10/03/19 08:00 40 10/03/19 08:00 Mechanical Ventilator 10/03/19 08:00 76 16 121/56 (77) 100 10/03/19 07:40 78 10/03/19 07:12 72 15 40 10/03/19 07:00 76 14 115/51 (72) 100 10/03/19 06:32 72 15 10/03/19 06:00 81 15 131/56 (81) 100 10/03/19 05:00 81 17 120/59 (79) 100 10/03/19 04:00 98.3 77 12 118/57 (77) 100 10/03/19 04:00 77 10/03/19 04:00 Mechanical Ventilator 10/03/19 04:00 40 10/03/19 03:25 74 12 40 10/03/19 03:00 92 24 158/66 (96) 100 10/03/19 02:00 84 18 128/62 (84) 100 10/03/19 01:00 72 13 115/49 (71) 100 10/03/19 00:00 78 10/03/19 00:00 Mechanical Ventilator 10/03/19 00:00 40 10/03/19 00:00 99.4 78 38 160/58 (92) 100 10/02/19 23:05 73 15 40 10/02/19 23:00 72 13 113/52 (72) 100 10/02/19 22:00 75 16 102/49 (66) 100 10/02/19 21:00 99.4 84 20 154/58 (90) 100 10/02/19 20:34 75 109/47 10/02/19 20:00 40 10/02/19 20:00 Mechanical Ventilator 10/02/19 20:00 77 12 109/47 (67) 87 10/02/19 19:30 78 13 40 10/02/19 19:21 75 10/02/19 19:00 72 12 98/47 (64) 100 10/02/19 18:00 81 16 110/49 (69) 100 10/02/19 17:00 81 19 132/55 (80) 100 I&O Intake and Output 10/02/19 10/03/19 19:00 07:00 Intake Total 830 ml 823.708 ml Output Total 430 ml 460 ml Balance 400 ml 363.708 ml Intake Free Water 60 ml IV Total 183.708 ml Tube Feeding 720 ml 540 ml Other 50 ml 100 ml Output Urine Total 430 ml 460 ml Cardiovascular: RSR Respiratory: decreased breath sounds Abdomen: soft, non-tender, present bowel sounds Extremities: no cyanosis Laboratory Tests Test 10/03/19 04:00 10/03/19 04:45 Arterial Blood pH 7.484 (7.350-7.450) Arterial Blood Partial Pressure CO2 35.9 mmHg (35.0-45.0) Arterial Blood Partial Pressure O2 149.8 mmHg (75.0-100.0) H Arterial Blood HCO3 26.4 mmol/L (22.0-26.0) H Arterial Blood Oxygen Saturation 98.9 % (95-100) Arterial Blood Base Excess 2.8 (-2-2) H Watson Test Positive White Blood Count 14.0 K/UL (4.8-10.8) H Red Blood Count 3.09 M/UL (4.70-6.10) L Hemoglobin 8.2 G/DL (14.2-18.0) L Hematocrit 25.3 % (42.0-52.0) L Mean Corpuscular Volume 82 FL (80-99) Mean Corpuscular Hemoglobin 26.6 PG (27.0-31.0) L Mean Corpuscular Hemoglobin Concent 32.5 G/DL (32.0-36.0) Red Cell Distribution Width 17.2 % (11.6-14.8) H Platelet Count 497 K/UL (150-450) H Mean Platelet Volume 5.3 FL (6.5-10.1) L Neutrophils (%) (Auto) 73.7 % (45.0-75.0) Lymphocytes (%) (Auto) 15.7 % (20.0-45.0) L Monocytes (%) (Auto) 7.9 % (1.0-10.0) Eosinophils (%) (Auto) 2.0 % (0.0-3.0) Basophils (%) (Auto) 0.8 % (0.0-2.0) Sodium Level 139 MMOL/L (136-145) Potassium Level 4.6 MMOL/L (3.5-5.1) Chloride Level 105 MMOL/L (98-107) Carbon Dioxide Level 26 MMOL/L (21-32) Anion Gap 8 mmol/L (5-15) Blood Urea Nitrogen 25 mg/dL (7-18) H Creatinine 1.2 MG/DL (0.55-1.30) Estimat Glomerular Filtration Rate > 60 mL/min (>60) Glucose Level 108 MG/DL (74-106) H Calcium Level 8.8 MG/DL (8.5-10.1) Phosphorus Level 3.7 MG/DL (2.5-4.9) Magnesium Level 2.2 MG/DL (1.8-2.4) Total Bilirubin 0.3 MG/DL (0.2-1.0) Aspartate Amino Transf (AST/SGOT) 72 U/L (15-37) H Alanine Aminotransferase (ALT/SGPT) 60 U/L (12-78) Alkaline Phosphatase 221 U/L (46-116) H C-Reactive Protein, Quantitative 20.5 mg/dL (0.00-0.90) H Pro-B-Type Natriuretic Peptide 561 pg/mL (0-125) H Total Protein 7.2 G/DL (6.4-8.2) Albumin 1.5 G/DL (3.4-5.0) L Globulin 5.7 g/dL Albumin/Globulin Ratio 0.3 (1.0-2.7) L Plan Problems: (1) UTI (urinary tract infection) (2) Acute respiratory failure Assessment & Plan: There is infiltrate suspected in the right perihilar region obscuring the right hilum. There is a hazy opacity that may partially be accounted for by pleural fluid on the right. Reticular densities are present on the left in the perihilar aspect of the lung. Endotracheal tube is in good position just above the anselmo. Heart size is normal. IMPRESSION: Suspected perihilar airspace disease in the right lung suspicious for pneumonia. Reticular nodular infiltrate in the left lung noted also. Right pleural effusion suspected. Endotracheal tube in good position cont vents support Lungs: Similar bilateral interstitial prominence, greater on the right. Stable right perihilar, mid and lower lung opacities. Similar left lung base opacity. Pleural space: Small left pleural effusion is stable. Loculated right pleural effusion is stable. No pneumothorax. Heart: Unremarkable. No cardiomegaly. Mediastinum: Unremarkable. Bones/joints: Unremarkable. Tubes, lines and devices: Endotracheal tube has been pulled back and is 10 cm above the anselmo near the thoracic inlet. IMPRESSION: Endotracheal tube has been pulled back and is 10 cm above the anselmo near the thoracic inlet. Remainder findings are stable. may need thoracentesis soon Moderate size right pleural effusion with right upper and lower lobe atelectasis/consolidation, as well as mild pulmonary edema.. 1. Patchy opacities throughout the right lung left mid and lower lung, similar to slightly increased. Possible small bilateral pleural effusions. 2. Endotracheal tube terminates in the region of the lower thoracic trachea above the anselmo. consider trach (3) Sepsis Assessment & Plan: Pt cachetic and presented on admission with multiple pressure injuries. Partial thickness pressure injury Cleft of L ear(L)1.2cm x (W)0.4cm. Base of wound moist and viable with small amt sanguineous exudate. Partial thickness pressure injury cleft of R ear(L)0.5cm x (W)0.7cm. Base of wound moist and viable Periwound erythematous.Small amt sanguineous exudate noted. Sacral DTPI(L)5cm x (W)10.5cm. Base of injury is purple with maroon borders. Coccygeal bony protrusion with darker skin tone, and small opening noted to R gluteus (L)0.5cm x (W)0.5cm within base of injury. No further skin breakdown periwound. Intact blood blister noted to R 1st metatarsal head(L)1.1cm x (W)2.5cm. DTPI noted to L heel extending into plantar aspect. Base of injury presents as an intact blood filled blister. Periwound is boggy with non-blanching erythema. R heel is boggy but blanchable. wounds unlikely etiology of sepsis respiratory but given current condition high risk for breakdown and worsening will monitor closely discussed with RN and staff great care being provided coded acls intubated in ICU prognosis guarded Tx.Plan: Apply Betadine to clefts of R and L ears. Pad oxygen tubing with gauze and keep oxygen tubing loose. Apply Moisture Barrier Paste to Sacrum. Cover with Optifoam drsg. Change every 3 days and prn. Apply Betadine to L heel. Cover with Optifoam drsg. Change every 3 days and prn. Apply Betadine to R 1st metatarsal head. Cover with Optifoam drsg. Change every 3 days and prn. Apply Cavilon Skin Barrier R heel. Cover with Optifoam drsg. Change every 7 days and prn. Reposition at least every 2hours or as tolerated. Off-load heels with pillow. on air mattress but not very comfortable appearing cont current care / pulm management (4) Severe anemia (5) Nosocomial pneumonia (6) Atrial fibrillation (7) Acute metabolic encephalopathy (8) History of CVA (cerebrovascular accident) (9) Diabetes mellitus (10) Hypothyroidism (11) Alzheimer's dementia (12) PVC (premature ventricular contraction) (13) Hypertension (14) Squamous cell esophageal cancer (15) Feeding by G-tube (16) Dehydration (17) Anemia (18) Severe malnutrition Assessment & Plan: DAILY ESTIMATED NEEDS: Needs based on underweight, suspected wt loss, wounds/ 63kg 25-33 kcals/kg [id number] total kcals 1.25-2 g protein/kg 78-126 g total protein 25-30 mL/kg 1023-7808 total fluid mLs NUTRITION DIAGNOSIS: * Swallowing difficulty R/T dysphagia w/ h/o CVA as evidenced by now s/p recent PEG placement (08/08/19), on GT feeds, held at time, s/p code blue (09/07), orally intubated, now extubated. * Increased kcal/prot intake needs R/T suspected significant wt loss and underweight status, wounds as evidenced by 10lbs/6.7% wt loss in 1 month, 76% IBW w/ BMI of 18.4, admitted w/ DTPI wound @ sacrum, Lt heel, partial thickness pressure injury cleft of R L ear. CURRENT TF:Osmolite 1.2 @ 60ml/hr x 22 hrs ENTERAL NUTRITION RECOMMENDATIONS: Osmolite 1.2 @ 60ml/hr x 22 hrs + Prosource x 1 to provide 1320ml, 1584kcal, 73g +11g prot, 1082ml free water - Add Prosource x 1 to meet protein needs - HOLD 1 hr before and after synthroid meds. add Prosource 1 pack daily to better meet est pro needs - Flush per MD/ HOB over 30 degrees WITH ELEV BG, rec TF change to Glucerna 1.2 w/ a goal of 60ml/hr x22 hrs to provide 1320ml, 1584kcal, 79g prot ADDITIONAL RECOMMENDATIONS: * PER SNF: HT=6'1" WT= 139lbs ("August weight" from SNF) -> calibrated bedscale wt * Monitor K, need for TF change (K 5.9 upon adm, now wnl) * Wound care: add Vit C 500mg QD + Wesley 1pkt BID via PEG * Monitor BGs, need for NISS: h/o DM per MD (checking A1C not suggested given low hgb) (19) Encounter for PEG (percutaneous endoscopic gastrostomy) (20) At high risk for aspiration (21) Pleural effusion (22) Suspected COVID-19 virus infection Jan Mora Oct 03, 2019 16:47
--- NOTE | 2019-10-03 18:10 | Internal Med Progress Note ---
Subjective Date of Service: Oct 03, 2019 Physician Name Xander Bah Attending Physician Lamont Hayes MD Current Medications Medications (Trade) Dose Ordered Sig/Kike Route PRN Reason Start Time Stop Time Status Last Admin Dose Admin Acetaminophen (Tylenol) 650 mg Q4H PRN ORAL fever 09/24/19 03:00 10/07/19 02:54 10/01/19 13:07 Amlodipine Besylate (Norvasc) 5 mg BID@0900,2100 NG 09/24/19 21:00 10/22/19 08:59 10/03/19 08:28 Heparin Sodium (Porcine) (Heparin 5000 units/ml) 5,000 units EVERY 12 HOURS SUBQ 09/24/19 09:00 10/22/19 08:59 10/03/19 08:29 Levofloxacin (Levaquin) 750 mg DAILY ORAL 09/30/19 13:00 10/07/19 12:59 10/03/19 08:28 Levothyroxine Sodium (Synthroid) 75 mcg DAILY@0630 ORAL 09/24/19 06:30 10/07/19 08:29 10/03/19 05:47 Nitroglycerin (Ntg) 0.4 mg Q5M PRN SL Prn Chest Pain 09/24/19 02:30 10/07/19 04:29 Ondansetron HCl (Zofran) 4 mg Q6H PRN IVP Nausea & Vomiting 09/24/19 03:00 10/07/19 02:57 09/28/19 21:10 Pantoprazole (Protonix) 40 mg Q12HR IVP 09/24/19 09:00 10/10/19 08:59 10/03/19 08:27 Polyethylene Glycol (Miralax) 17 gm DAILYPRN PRN ORAL Constipation 09/24/19 03:00 10/07/19 02:57 Promethazine HCl/ Codeine (Phenergan with Codeine) 5 ml Q4H PRN ORAL For Cough 09/24/19 03:00 10/07/19 02:58 Quetiapine Fumarate (SEROqueL) 25 mg Q8H PRN NG Agitation 09/24/19 02:35 10/30/19 02:34 09/30/19 03:10 Vancomycin HCl (Vanco rx to dose) 1 ea DAILY PRN MISC Per rx protocol 10/01/19 17:15 10/31/19 17:14 Vancomycin HCl 750 mg/Sodium Chloride 275 ml @ 183.333 mls/hr Q12HR@0800,2000 IVPB 10/03/19 20:00 10/08/19 19:59 Allergies: Coded Allergies: PENICILLINS (Verified Allergy, Unknown, 10/27/18) tolretas cephalosporins ROS Limited/Unobtainable: Yes Subjective 84 YO M admitted with cough and congestion. Cover for Int Med-Dr Hayes. Reintubated 09/24/19 after cardiopulmonary arrest-see code blue note. ICU Objective Last Vital Signs Date Time Temp Pulse Resp B/P (MAP) Pulse Ox O2 Delivery O2 Flow Rate FiO2 10/03/19 17:39 73 17 40 10/03/19 17:00 149/52 (84) 100 10/03/19 16:00 Mechanical Ventilator 10/03/19 12:00 99.9 Laboratory Tests Test 10/03/19 04:00 10/03/19 04:45 10/03/19 17:00 Arterial Blood pH 7.484 (7.350-7.450) Arterial Blood Partial Pressure CO2 35.9 mmHg (35.0-45.0) Arterial Blood Partial Pressure O2 149.8 mmHg (75.0-100.0) H Arterial Blood HCO3 26.4 mmol/L (22.0-26.0) H Arterial Blood Oxygen Saturation 98.9 % (95-100) Arterial Blood Base Excess 2.8 (-2-2) H Watson Test Positive White Blood Count 14.0 K/UL (4.8-10.8) H Red Blood Count 3.09 M/UL (4.70-6.10) L Hemoglobin 8.2 G/DL (14.2-18.0) L Hematocrit 25.3 % (42.0-52.0) L Mean Corpuscular Volume 82 FL (80-99) Mean Corpuscular Hemoglobin 26.6 PG (27.0-31.0) L Mean Corpuscular Hemoglobin Concent 32.5 G/DL (32.0-36.0) Red Cell Distribution Width 17.2 % (11.6-14.8) H Platelet Count 497 K/UL (150-450) H Mean Platelet Volume 5.3 FL (6.5-10.1) L Neutrophils (%) (Auto) 73.7 % (45.0-75.0) Lymphocytes (%) (Auto) 15.7 % (20.0-45.0) L Monocytes (%) (Auto) 7.9 % (1.0-10.0) Eosinophils (%) (Auto) 2.0 % (0.0-3.0) Basophils (%) (Auto) 0.8 % (0.0-2.0) Sodium Level 139 MMOL/L (136-145) Potassium Level 4.6 MMOL/L (3.5-5.1) Chloride Level 105 MMOL/L (98-107) Carbon Dioxide Level 26 MMOL/L (21-32) Anion Gap 8 mmol/L (5-15) Blood Urea Nitrogen 25 mg/dL (7-18) H Creatinine 1.2 MG/DL (0.55-1.30) Estimat Glomerular Filtration Rate > 60 mL/min (>60) Glucose Level 108 MG/DL (74-106) H Calcium Level 8.8 MG/DL (8.5-10.1) Phosphorus Level 3.7 MG/DL (2.5-4.9) Magnesium Level 2.2 MG/DL (1.8-2.4) Total Bilirubin 0.3 MG/DL (0.2-1.0) Aspartate Amino Transf (AST/SGOT) 72 U/L (15-37) H Alanine Aminotransferase (ALT/SGPT) 60 U/L (12-78) Alkaline Phosphatase 221 U/L (46-116) H C-Reactive Protein, Quantitative 20.5 mg/dL (0.00-0.90) H Pro-B-Type Natriuretic Peptide 561 pg/mL (0-125) H Total Protein 7.2 G/DL (6.4-8.2) Albumin 1.5 G/DL (3.4-5.0) L Globulin 5.7 g/dL Albumin/Globulin Ratio 0.3 (1.0-2.7) L Vancomycin Level Trough 6.2 ug/mL (5.0-12.0) Microbiology Date/Time Source Procedure Growth Status 10/02/19 04:15 Blood Blood Culture - Preliminary NO GROWTH AFTER 24 HOURS Resulted 10/02/19 04:00 Blood Blood Culture - Preliminary NO GROWTH AFTER 24 HOURS Resulted 10/02/19 15:00 Urine,Clean Catch Urine Culture - Preliminary NO GROWTH Resulted Intake and Output 10/02/19 10/03/19 19:00 07:00 Intake Total 830 ml 823.708 ml Output Total 430 ml 460 ml Balance 400 ml 363.708 ml Intake Free Water 60 ml IV Total 183.708 ml Tube Feeding 720 ml 540 ml Other 50 ml 100 ml Output Urine Total 430 ml 460 ml Objective PHYSICAL EXAMINATION: GENERAL: The patient is a thin-appearing male, in no apparent distress. HEENT: Eyes, pupils are equal and responsive to light and accommodation. Extraocular movements are intact. NECK: Supple without lymphadenopathy. CHEST: Mech vent; Lungs are clear to auscultation bilaterally with decreased breath sounds on the right. There are no wheezes appreciated. ABDOMEN: Soft, nontender, and nondistended. Positive bowel sounds. No evidence of hepatosplenomegaly. Currently, no rebound or guarding noted. EXTREMITIES: Negative for clubbing, cyanosis, or edema. RECTAL/GENITAL: Not performed. NEUROLOGIC: Cranial nerves II through XII are grossly intact without focal deficits. Assessment/Plan Assessment/Plan ASSESSMENT: This is an 84-year-old male with: 1. right pneumonia=pseudamonas 2. Urinary tract infection=jennifer 3. Right pleural effusion. 4. Esophageal mass. 5. Dysphagia. 6. Diabetes. 7. Alzheimer's dementia. 8. Cerebrovascular disease. 9. Hypothyroidism. 10. Seizure disorder. 11. Iron deficiency anemia. 13. Respiratory failure 14. S/P cardiopulmonary arrest 15. Anemia TREATMENT: 1. Right perihilar Pneumonia/pleural effusion. COVID 19 and Influenza negative. A Pulmonary consultation has been obtained with Dr. Vania Hui. S/P right thoracentesis 09/19/19. We will follow recommendation of Pulmonary. ID=Dr Roach ABX= levofloxacin and vanco 2. Urinary tract infection. . A urine culture =jennifer 3. Right pleural effusion. As above, a Pulmonary consultation has been obtained with Dr. Vania Hui. The patient may require thoracentesis during this hospitalization. 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 A Gastroenterology consultation has been obtained with Dr. Darrick Rosario. 5. Dysphagia. The patient is status post PEG placement on 08/08/[address] at [facility] by Dr. Darrick Rosario. 6. Diabetes type 2. A NovoLog sliding scale has been instituted. 7. Alzheimer's dementia. 8. Cerebrovascular disease, status post cerebrovascular accident. 9. Hypothyroidism. Continue levothyroxine as above. 10. Seizure disorder. 11. Iron deficiency anemia. 12. reintubated 09/24/19-see code blue note 13. S/P transfusion 2 units PRBC Xander Bah MD Oct 03, 2019 18:10
[2019-10-03] MEDS: Vancomycin 750 MG in NS 275 ML IVPB SCH (20:34)
[2019-10-04] VITALS (24 sets, daily range): BP systolic 106–137; BP diastolic 47–71
[2019-10-04 06:18] LABS: BASOPHILS % (AUTO) 0.5 % (0.0-2.0); EOSINOPHILS % (AUTO) 2.3 % (0.0-3.0); HEMOGLOBIN 8.4 G/DL (14.2-18.0); LYMPHOCYTES % (AUTO) 18.2 % (20.0-45.0); MEAN CORPUSCULAR VOLUME 81 FL (80-99); MONOCYTES % (AUTO) 5.7 % (1.0-10.0); NEUTROPHILS % (AUTO) 73.4 % (45.0-75.0); PLATELET COUNT 460 K/UL (150-450); RED CELL DISTRIBUTION WIDTH 16.7 % (11.6-14.8); WHITE BLOOD COUNT 11.5 K/UL (4.8-10.8)
[2019-10-04 06:35] LABS: ALANINE AMINOTRANSFERASE 64 U/L (12-78); ALBUMIN 1.4 G/DL (3.4-5.0); ALBUMIN/GLOBULIN RATIO 0.2 (1.0-2.7); ALKALINE PHOSPHATASE 216 U/L (46-116); ANION GAP 9 mmol/L (5-15); ASPARTATE AMINO TRANSFERASE 72 U/L (15-37); BILIRUBIN,TOTAL 0.2 MG/DL (0.2-1.0); BLOOD UREA NITROGEN 24 mg/dL (7-18); CALCIUM 8.6 MG/DL (8.5-10.1); CARBON DIOXIDE 26 MMOL/L (21-32); CHLORIDE 106 MMOL/L (98-107); CREATININE 1.2 MG/DL (0.55-1.30); POTASSIUM 4.5 MMOL/L (3.5-5.1); SODIUM 141 MMOL/L (136-145)
--- NOTE | 2019-10-04 06:58 | General Progress Note ---
Assessment/Plan Status: unchanged Assessment/Plan: 1. Esophageal cancer. 2. Dysphagia. 3. Diabetes type 2. 4. Dementia. 5. CVA. 6. Hypothyroidism. 7. Seizure disorder. 8. Iron deficiency anemia. 9. Respiratory failure. 10. Dysphagia with G-tube stable H&H GT has been changed and working well GT flushes abx per id pulm care bowel regimen recent labs and notes reviewed D/W the nurse will fu Subjective ROS Limited/Unobtainable: No Allergies: Coded Allergies: PENICILLINS (Verified Allergy, Unknown, 10/27/18) tolretas cephalosporins Objective Last 24 Hour Vital Signs Date Time Temp Pulse Resp B/P (MAP) Pulse Ox O2 Delivery O2 Flow Rate FiO2 10/04/19 06:30 75 15 10/04/19 06:00 78 15 120/51 (74) 100 10/04/19 05:05 82 16 40 10/04/19 05:00 82 15 114/71 (85) 100 10/04/19 04:00 98.8 86 17 128/63 (84) 100 10/04/19 04:00 40 10/04/19 04:00 79 10/04/19 04:00 Mechanical Ventilator 10/04/19 03:13 81 18 40 10/04/19 03:00 73 12 113/49 (70) 100 10/04/19 02:00 69 14 107/48 (67) 100 10/04/19 01:05 70 12 50 10/04/19 01:00 73 13 120/47 (71) 100 10/04/19 00:00 98.4 72 13 106/51 (69) 100 10/04/19 00:00 60 10/04/19 00:00 73 10/04/19 00:00 Mechanical Ventilator 10/03/19 23:00 73 19 125/51 (75) 100 10/03/19 22:58 69 15 50 10/03/19 22:00 69 16 109/51 (70) 100 10/03/19 21:00 73 16 114/50 (71) 100 10/03/19 21:00 100 10/03/19 20:40 75 13 100 10/03/19 20:35 73 118/56 10/03/19 20:00 98.3 76 16 118/56 (76) 89 10/03/19 20:00 40 10/03/19 20:00 Mechanical Ventilator 10/03/19 20:00 73 10/03/19 19:12 77 16 40 10/03/19 19:00 76 17 133/50 (77) 95 10/03/19 18:00 81 20 103/46 (65) 100 10/03/19 17:39 73 17 40 10/03/19 17:00 78 20 149/52 (84) 100 10/03/19 16:09 74 10/03/19 16:00 40 10/03/19 16:00 99.2 70 13 108/45 (66) 100 10/03/19 16:00 Mechanical Ventilator 10/03/19 15:06 75 15 40 10/03/19 15:00 78 17 111/49 (69) 100 10/03/19 14:00 73 13 104/50 (68) 100 10/03/19 13:00 75 14 110/50 (70) 97 10/03/19 12:00 99.9 81 18 132/59 (83) 100 10/03/19 12:00 40 10/03/19 12:00 Mechanical Ventilator 10/03/19 11:49 82 10/03/19 11:00 79 18 120/56 (77) 100 10/03/19 10:30 79 22 40 10/03/19 10:00 75 19 125/55 (78) 100 10/03/19 09:00 99.6 72 15 111/52 (71) 100 10/03/19 08:28 75 125/56 10/03/19 08:00 40 10/03/19 08:00 Mechanical Ventilator 10/03/19 08:00 76 16 121/56 (77) 100 10/03/19 07:40 78 10/03/19 07:12 72 15 40 10/03/19 07:00 76 14 115/51 (72) 100 Intake and Output 10/03/19 10/04/19 19:00 07:00 Intake Total 720 ml 865 ml Output Total 580 ml 370 ml Balance 140 ml 495 ml IV Total 275 ml Tube Feeding 720 ml 540 ml Other 50 ml Output Urine Total 580 ml 370 ml Laboratory Tests 10/03/19 17:00: Vancomycin Level Trough 6.2 10/04/19 04:26: White Blood Count [Pending], Red Blood Count [Pending], Hemoglobin [Pending], Hematocrit [Pending], Mean Corpuscular Volume [Pending], Mean Corpuscular Hemoglobin [Pending], Mean Corpuscular Hemoglobin Concent [Pending], Red Cell Distribution Width [Pending], Platelet Count [Pending], Mean Platelet Volume [ Pending], Neutrophils (%) (Auto) [Pending], Lymphocytes (%) (Auto) [Pending], Monocytes (%) (Auto) [Pending], Eosinophils (%) (Auto) [Pending], Basophils (%) (Auto) [Pending], Sodium Level [Pending], Potassium Level [Pending], Chloride Level [Pending], Carbon Dioxide Level [Pending], Blood Urea Nitrogen [Pending], Creatinine [Pending], Estimat Glomerular Filtration Rate [Pending], Glucose Level [Pending], Calcium Level [Pending], Total Bilirubin [Pending], Aspartate Amino Transf (AST/SGOT) [Pending], Alanine Aminotransferase (ALT/SGPT) [Pending] , Alkaline Phosphatase [Pending], Pro-B-Type Natriuretic Peptide [Pending], Total Protein [Pending], Albumin [Pending], Globulin [Pending] Height (Feet): 5 Height (Inches): 11.00 Weight (Pounds): 144 General Appearance: no apparent distress EENT: normal ENT inspection Neck: supple Cardiovascular: normal rate Respiratory/Chest: decreased breath sounds Abdomen: normal bowel sounds, non tender, soft Extremities: non-tender Darrick Rosario MD Oct 04, 2019 06:58
[2019-10-04] MEDS: Vancomycin 750 MG in NS 275 ML IVPB SCH ×2 (08:03→20:12)
[2019-10-04] MEDS: Docusate 100mg/10ml Liq GT SCH ×2 (08:05→17:30)
[2019-10-04] MEDS: Heparin 5000 units/ml inj SUBQ SCH ×2 (08:07→20:11)
--- NOTE | 2019-10-04 09:11 | Diagnostic Imaging Report ---
Indication: Dyspnea Technique: One view of the chest Comparison: 10/03/2019 Findings: There is evidence of increasing pleural fluid and consolidation at the right lung base. Hazy opacity at the left lung base is unchanged. The heart size is normal. Stable satisfactory endotracheal tube position. Impression: Increasing right pleural fluid and parenchymal consolidation, over one day
[2019-10-04] MEDS: Levofloxacin 750mg tab ORAL SCH (09:53)
--- NOTE | 2019-10-04 10:07 | Pulmonolgy Critical Care Note ---
Critical Care - Asmt/Plan Problems: (1) Acute respiratory failure Assessment & Plan: got reintubated (2) Pleural effusion Assessment & Plan: s/p thoracentesis times 2 (3) Nosocomial pneumonia (4) Sepsis (5) Squamous cell esophageal cancer (6) Diabetes mellitus (7) Severe malnutrition (8) Alzheimer's dementia (9) History of CVA (cerebrovascular accident) (10) Feeding by G-tube Respiratory: adjust tidal volume, monitor respiratory rate, adjust FIO2, CXR, weaning trial Cardiac: continue to monitor HR/BP Renal: F/U I&O, keep IV fluid, check electrolytes Infectious Disease: check cultures, continue antibiotics Gastrointestinal: continue feedings/current rate Endocrine: monitor blood sugar Hematologic: monitor H/H, transfuse if hgb<8.5 Neurologic: PRN Ativan, keep patient comfortable Affect: PRN ativan Prophylaxis: Protonix Time Spent (Minutes): 40 Notes Reviewed: clinical 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 improvement educator, cardio, 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 with: nurses, 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, 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 - Objective Last 24 Hour Vital Signs Date Time Temp Pulse Resp B/P (MAP) Pulse Ox O2 Delivery O2 Flow Rate FiO2 10/04/19 10:00 88 18 125/54 (77) 98 10/04/19 09:00 87 21 129/60 (83) 100 10/04/19 08:59 100 10/04/19 08:06 80 116/53 10/04/19 08:00 Mechanical Ventilator 10/04/19 08:00 40 10/04/19 08:00 99.3 76 14 114/51 (72) 100 10/04/19 07:27 78 10/04/19 07:22 80 17 100 Mechanical Ventilator 100 10/04/19 07:20 78 17 40 10/04/19 07:00 78 16 116/53 (74) 100 10/04/19 06:30 75 15 10/04/19 06:00 78 15 120/51 (74) 100 10/04/19 05:05 82 16 40 10/04/19 05:00 82 15 114/71 (85) 100 10/04/19 04:00 98.8 86 17 128/63 (84) 100 10/04/19 04:00 40 10/04/19 04:00 79 10/04/19 04:00 Mechanical Ventilator 10/04/19 03:13 81 18 40 10/04/19 03:00 73 12 113/49 (70) 100 10/04/19 02:00 69 14 107/48 (67) 100 10/04/19 01:05 70 12 50 10/04/19 01:00 73 13 120/47 (71) 100 10/04/19 00:00 98.4 72 13 106/51 (69) 100 10/04/19 00:00 60 10/04/19 00:00 73 10/04/19 00:00 Mechanical Ventilator 10/03/19 23:00 73 19 125/51 (75) 100 10/03/19 22:58 69 15 50 10/03/19 22:00 69 16 109/51 (70) 100 10/03/19 21:00 73 16 114/50 (71) 100 10/03/19 21:00 100 10/03/19 20:40 75 13 100 10/03/19 20:35 73 118/56 10/03/19 20:00 98.3 76 16 118/56 (76) 89 10/03/19 20:00 40 10/03/19 20:00 Mechanical Ventilator 10/03/19 20:00 73 10/03/19 19:12 77 16 40 10/03/19 19:00 76 17 133/50 (77) 95 10/03/19 18:00 81 20 103/46 (65) 100 10/03/19 17:39 73 17 40 10/03/19 17:00 78 20 149/52 (84) 100 10/03/19 16:09 74 10/03/19 16:00 40 10/03/19 16:00 99.2 70 13 108/45 (66) 100 10/03/19 16:00 Mechanical Ventilator 10/03/19 15:06 75 15 40 10/03/19 15:00 78 17 111/49 (69) 100 10/03/19 14:00 73 13 104/50 (68) 100 10/03/19 13:00 75 14 110/50 (70) 97 10/03/19 12:00 99.9 81 18 132/59 (83) 100 10/03/19 12:00 40 10/03/19 12:00 Mechanical Ventilator 10/03/19 11:49 82 10/03/19 11:00 79 18 120/56 (77) 100 10/03/19 10:30 79 22 40 Status: obtunded Condition: critical Neck: full ROM Lungs: chest wall tender Heart: HR/BP stable Abdomen: soft Extremities: no C/C/E Micro: Microbiology Date/Time Source Procedure Growth Status 10/02/19 04:15 Blood Blood Culture - Preliminary NO GROWTH AFTER 48 HOURS Resulted 10/02/19 04:00 Blood Blood Culture - Preliminary NO GROWTH AFTER 48 HOURS Resulted 10/01/19 19:03 Nasopharynx Coronavirus COVID-19 PCR (KEEGAN) - Final Complete 10/02/19 15:00 Urine,Clean Catch Urine Culture - Preliminary YEAST Resulted Critical Care - Subjective ROS Limited/Unobtainable: Yes Condition: critical FI02: 40 Vent Support Breath Rate: 12 Vent Support Mode: AC Vent Tidal Volume: 550 Sputum Amount: Small PEEP: 5.0 PIP: 20 Tube Feeding Amount: 60 I&O: Intake and Output 10/03/19 10/04/19 19:00 07:00 Intake Total 720 ml 865 ml Output Total 580 ml 420 ml Balance 140 ml 445 ml IV Total 275 ml Tube Feeding 720 ml 540 ml Other 50 ml Output Urine Total 580 ml 420 ml ET-Tube: 7.5 ET Position: 26 Labs: Laboratory Tests Test 10/03/19 17:00 10/04/19 04:26 Vancomycin Level Trough 6.2 ug/mL (5.0-12.0) White Blood Count 11.5 K/UL (4.8-10.8) H Red Blood Count 3.20 M/UL (4.70-6.10) L Hemoglobin 8.4 G/DL (14.2-18.0) L Hematocrit 26.0 % (42.0-52.0) L Mean Corpuscular Volume 81 FL (80-99) Mean Corpuscular Hemoglobin 26.3 PG (27.0-31.0) L Mean Corpuscular Hemoglobin Concent 32.4 G/DL (32.0-36.0) Red Cell Distribution Width 16.7 % (11.6-14.8) H Platelet Count 460 K/UL (150-450) H Mean Platelet Volume 5.2 FL (6.5-10.1) L Neutrophils (%) (Auto) 73.4 % (45.0-75.0) Lymphocytes (%) (Auto) 18.2 % (20.0-45.0) L Monocytes (%) (Auto) 5.7 % (1.0-10.0) Eosinophils (%) (Auto) 2.3 % (0.0-3.0) Basophils (%) (Auto) 0.5 % (0.0-2.0) Sodium Level 141 MMOL/L (136-145) Potassium Level 4.5 MMOL/L (3.5-5.1) Chloride Level 106 MMOL/L (98-107) Carbon Dioxide Level 26 MMOL/L (21-32) Anion Gap 9 mmol/L (5-15) Blood Urea Nitrogen 24 mg/dL (7-18) H Creatinine 1.2 MG/DL (0.55-1.30) Estimat Glomerular Filtration Rate > 60 mL/min (>60) Glucose Level 125 MG/DL (74-106) H Calcium Level 8.6 MG/DL (8.5-10.1) Total Bilirubin 0.2 MG/DL (0.2-1.0) Aspartate Amino Transf (AST/SGOT) 72 U/L (15-37) H Alanine Aminotransferase (ALT/SGPT) 64 U/L (12-78) Alkaline Phosphatase 216 U/L (46-116) H Pro-B-Type Natriuretic Peptide 436 pg/mL (0-125) H Total Protein 7.2 G/DL (6.4-8.2) Albumin 1.4 G/DL (3.4-5.0) L Globulin 5.8 g/dL Albumin/Globulin Ratio 0.2 (1.0-2.7) L Vania Hui MD Oct 04, 2019 10:07
--- NOTE | 2019-10-04 11:17 | Infectious Diseases Prog Note ---
Assessment/Plan Assessment/Plan 09/23 SP asystole cardiac arrest VDRF 09/23 Fever; SP Mild leukocytosis, improving Probableu UTI -10/01 Bcx NTD u/a wbc tnct; ucx 30-40k yeast PNA VDRF, sp intubation 09/08, sp extubation 09/18, re-intubated 09/23 SARS-CoV neg x3 (09/06, 09/08, 09/30) MRSA screen pos 09/06 sp cx: PSA (hensley S) and proteus (hensley S) 10/02 CXR: Increasing pleural fluid and possibly parenchymal consolidation at the right lung base. Unchanged left basilar pleural and parenchymal disease. 09/30 CXR: Patchy opacities throughout the right lung left mid and lower lung, similar to slightly increased. Possible small bilateral pleural effusions. 09/29 CXR: Increasing right mid and lower lung opacity, may indicate increasing pleural fluid, increasing infiltrate, or both. 09/28 CXR: Developing hazy right basilar opacity. This could represent reaching layering pleural fluid. This could also represent reexpansion pulmonary edema given recent high-volume thoracentesis, or could represent developing ammonia or pulmonary edema. Hazy left basilar opacity, unchanged, may reflect parenchymal infiltrate versus pleural fluid versus both 09/25 CXR: Large right pleural effusion is again demonstrated. Small left pleural effusion is again demonstrated. Left lung is otherwise clear. sp cx PsA (R zozyn, S levo, gentamycin) 09/24 CXR: Moderate size right pleural effusion with right upper and lower lobe atelectasis/consolidation, as well as mild pulmonary edema.. 09/17 CXR: Similar bilateral interstitial prominence, greater on the right.Stable right perihilar, mid and lower lung opacities. Similar left lung base opacity. Small left pleural effusion is stable. Loculated right pleural effusion is stable. No pneumothorax. CXR: Right pleural effusion, also demonstrated on prior 08/09/2019 exam, slightly increased. Hazy right lung parenchymal opacity probably represents a superimposed pleural fluid but infiltrate also possible. R pleural effusion, exudative -09/18 SP thorancetesis; removal of 2050 mL fluid; Fluid prot 5 (serum prot 7.2 ); cx Neg QTc 419 RAMAN, improving DM HTN CVA Dementia Nonverbal G tube Plan: Cont Levaquin #/ Empiric IV Vancomycin #4/5 09/19 SPcefepime # / 4/ SP vanc #4 ( Cr increased) ICU care monitor temp and CBC COVID neg x3 sp cx DW RN Thank you for this consult. [facility] will continue to follow the patient with you. Subjective Allergies: Coded Allergies: PENICILLINS (Verified Allergy, Unknown, 10/27/18) tolretas cephalosporins Subjective afebrile >48hrs mild leukocytosis improving Objective Vital Signs Last 24 Hour Vital Signs Date Time Temp Pulse Resp B/P (MAP) Pulse Ox O2 Delivery O2 Flow Rate FiO2 10/04/19 10:00 88 18 125/54 (77) 98 10/04/19 09:00 87 21 129/60 (83) 100 10/04/19 08:59 100 10/04/19 08:06 80 116/53 10/04/19 08:00 Mechanical Ventilator 10/04/19 08:00 40 10/04/19 08:00 99.3 76 14 114/51 (72) 100 10/04/19 07:27 78 10/04/19 07:22 80 17 100 Mechanical Ventilator 100 10/04/19 07:20 78 17 40 10/04/19 07:00 78 16 116/53 (74) 100 10/04/19 06:30 75 15 10/04/19 06:00 78 15 120/51 (74) 100 10/04/19 05:05 82 16 40 10/04/19 05:00 82 15 114/71 (85) 100 10/04/19 04:00 98.8 86 17 128/63 (84) 100 10/04/19 04:00 40 10/04/19 04:00 79 10/04/19 04:00 Mechanical Ventilator 10/04/19 03:13 81 18 40 10/04/19 03:00 73 12 113/49 (70) 100 10/04/19 02:00 69 14 107/48 (67) 100 10/04/19 01:05 70 12 50 10/04/19 01:00 73 13 120/47 (71) 100 10/04/19 00:00 98.4 72 13 106/51 (69) 100 10/04/19 00:00 60 10/04/19 00:00 73 10/04/19 00:00 Mechanical Ventilator 10/03/19 23:00 73 19 125/51 (75) 100 10/03/19 22:58 69 15 50 10/03/19 22:00 69 16 109/51 (70) 100 10/03/19 21:00 73 16 114/50 (71) 100 10/03/19 21:00 100 10/03/19 20:40 75 13 100 10/03/19 20:35 73 118/56 10/03/19 20:00 98.3 76 16 118/56 (76) 89 10/03/19 20:00 40 10/03/19 20:00 Mechanical Ventilator 10/03/19 20:00 73 10/03/19 19:12 77 16 40 10/03/19 19:00 76 17 133/50 (77) 95 10/03/19 18:00 81 20 103/46 (65) 100 10/03/19 17:39 73 17 40 10/03/19 17:00 78 20 149/52 (84) 100 10/03/19 16:09 74 10/03/19 16:00 40 10/03/19 16:00 99.2 70 13 108/45 (66) 100 10/03/19 16:00 Mechanical Ventilator 10/03/19 15:06 75 15 40 10/03/19 15:00 78 17 111/49 (69) 100 10/03/19 14:00 73 13 104/50 (68) 100 10/03/19 13:00 75 14 110/50 (70) 97 10/03/19 12:00 99.9 81 18 132/59 (83) 100 10/03/19 12:00 40 10/03/19 12:00 Mechanical Ventilator 10/03/19 11:49 82 Height (Feet): 5 Height (Inches): 11.00 Weight (Pounds): 144 Objective Gen: NAD. well nourished HEENT: ETT. oral secretions Resp: coarse. equal chest rise. regular rate and rhythm. Abd: Soft. no TTP. nondistended. G tube site c/d/i. Neuro: opens eyes to voice and follows simple commands Microbiology Date/Time Source Procedure Growth Status 10/02/19 04:15 Blood Blood Culture - Preliminary NO GROWTH AFTER 48 HOURS Resulted 10/02/19 04:00 Blood Blood Culture - Preliminary NO GROWTH AFTER 48 HOURS Resulted 10/01/19 19:03 Nasopharynx Coronavirus COVID-19 PCR ([facility]EEGAN) - Final Complete 10/02/19 15:00 Urine,Clean Catch Urine Culture - Preliminary YEAST Resulted Laboratory Tests Test 10/03/19 17:00 10/04/19 04:26 Vancomycin Level Trough 6.2 ug/mL (5.0-12.0) White Blood Count 11.5 K/UL (4.8-10.8) H Red Blood Count 3.20 M/UL (4.70-6.10) L Hemoglobin 8.4 G/DL (14.2-18.0) L Hematocrit 26.0 % (42.0-52.0) L Mean Corpuscular Volume 81 FL (80-99) Mean Corpuscular Hemoglobin 26.3 PG (27.0-31.0) L Mean Corpuscular Hemoglobin Concent 32.4 G/DL (32.0-36.0) Red Cell Distribution Width 16.7 % (11.6-14.8) H Platelet Count 460 K/UL (150-450) H Mean Platelet Volume 5.2 FL (6.5-10.1) L Neutrophils (%) (Auto) 73.4 % (45.0-75.0) Lymphocytes (%) (Auto) 18.2 % (20.0-45.0) L Monocytes (%) (Auto) 5.7 % (1.0-10.0) Eosinophils (%) (Auto) 2.3 % (0.0-3.0) Basophils (%) (Auto) 0.5 % (0.0-2.0) Sodium Level 141 MMOL/L (136-145) Potassium Level 4.5 MMOL/L (3.5-5.1) Chloride Level 106 MMOL/L (98-107) Carbon Dioxide Level 26 MMOL/L (21-32) Anion Gap 9 mmol/L (5-15) Blood Urea Nitrogen 24 mg/dL (7-18) H Creatinine 1.2 MG/DL (0.55-1.30) Estimat Glomerular Filtration Rate > 60 mL/min (>60) Glucose Level 125 MG/DL (74-106) H Calcium Level 8.6 MG/DL (8.5-10.1) Total Bilirubin 0.2 MG/DL (0.2-1.0) Aspartate Amino Transf (AST/SGOT) 72 U/L (15-37) H Alanine Aminotransferase (ALT/SGPT) 64 U/L (12-78) Alkaline Phosphatase 216 U/L (46-116) H Pro-B-Type Natriuretic Peptide 436 pg/mL (0-125) H Total Protein 7.2 G/DL (6.4-8.2) Albumin 1.4 G/DL (3.4-5.0) L Globulin 5.8 g/dL Albumin/Globulin Ratio 0.2 (1.0-2.7) L Current Medications Medications (Trade) Dose Ordered Sig/Kike Route PRN Reason Start Time Stop Time Status Last Admin Dose Admin Acetaminophen (Tylenol) 650 mg Q4H PRN ORAL fever 09/24/19 03:00 10/07/19 02:54 10/01/19 13:07 Amlodipine Besylate (Norvasc) 5 mg BID@0900,2100 NG 09/24/19 21:00 10/22/19 08:59 10/04/19 08:06 Docusate Sodium (Colace) 100 mg TWICE A DAY GT 10/04/19 09:00 11/03/19 08:59 10/04/19 08:05 Heparin Sodium (Porcine) (Heparin 5000 units/ml) 5,000 units EVERY 12 HOURS SUBQ 09/24/19 09:00 10/22/19 08:59 10/04/19 08:07 Lansoprazole (Prevacid) 30 mg DAILY GT 10/04/19 09:00 11/03/19 08:59 10/04/19 08:06 Levofloxacin (Levaquin) 750 mg DAILY ORAL 09/30/19 13:00 10/07/19 12:59 10/04/19 09:53 Levothyroxine Sodium (Synthroid) 75 mcg DAILY@0630 ORAL 09/24/19 06:30 10/07/19 08:29 10/04/19 05:40 Nitroglycerin (Ntg) 0.4 mg Q5M PRN SL Prn Chest Pain 09/24/19 02:30 10/07/19 04:29 Ondansetron HCl (Zofran) 4 mg Q6H PRN IVP Nausea & Vomiting 09/24/19 03:00 10/07/19 02:57 09/28/19 21:10 Polyethylene Glycol (Miralax) 17 gm DAILYPRN PRN ORAL Constipation 09/24/19 03:00 10/07/19 02:57 Promethazine HCl/ Codeine (Phenergan with Codeine) 5 ml Q4H PRN ORAL For Cough 09/24/19 03:00 10/07/19 02:58 Quetiapine Fumarate (SEROqueL) 25 mg Q8H PRN NG Agitation 09/24/19 02:35 10/30/19 02:34 09/30/19 03:10 Vancomycin HCl (Vanco rx to dose) 1 ea DAILY PRN MISC Per rx protocol 10/01/19 17:15 10/31/19 17:14 Vancomycin HCl 750 mg/Sodium Chloride 275 ml @ 183.333 mls/hr Q12HR@0800,1999 IVPB 10/03/19 20:00 10/08/19 19:59 10/04/19 08:03 Danielle Roach M.D. Oct 04, 2019 11:17
--- NOTE | 2019-10-04 14:28 | Surgery Progress Note ---
Surgery Progress Note Subjective Additional Comments tolerating tube feeds unable to wean consider comfort care Objective Last 24 Hour Vital Signs Date Time Temp Pulse Resp B/P (MAP) Pulse Ox O2 Delivery O2 Flow Rate FiO2 10/04/19 14:00 99.4 85 16 112/51 (71) 100 10/04/19 13:00 99.7 78 16 118/59 (78) 98 10/04/19 12:50 80 16 40 10/04/19 12:00 Mechanical Ventilator 10/04/19 12:00 40 10/04/19 12:00 82 15 117/57 (77) 97 10/04/19 11:22 83 10/04/19 11:00 86 19 122/54 (76) 98 10/04/19 10:52 86 20 40 10/04/19 10:00 88 18 125/54 (77) 98 10/04/19 09:00 87 21 129/60 (83) 100 10/04/19 08:59 100 10/04/19 08:06 80 116/53 10/04/19 08:00 Mechanical Ventilator 10/04/19 08:00 40 10/04/19 08:00 99.3 76 14 114/51 (72) 100 10/04/19 07:27 78 10/04/19 07:22 80 17 100 Mechanical Ventilator 100 10/04/19 07:20 78 17 40 10/04/19 07:00 78 16 116/53 (74) 100 10/04/19 06:30 75 15 10/04/19 06:00 78 15 120/51 (74) 100 10/04/19 05:05 82 16 40 10/04/19 05:00 82 15 114/71 (85) 100 10/04/19 04:00 98.8 86 17 128/63 (84) 100 10/04/19 04:00 40 10/04/19 04:00 79 10/04/19 04:00 Mechanical Ventilator 10/04/19 03:13 81 18 40 10/04/19 03:00 73 12 113/49 (70) 100 10/04/19 02:00 69 14 107/48 (67) 100 10/04/19 01:05 70 12 50 10/04/19 01:00 73 13 120/47 (71) 100 10/04/19 00:00 98.4 72 13 106/51 (69) 100 10/04/19 00:00 60 10/04/19 00:00 73 10/04/19 00:00 Mechanical Ventilator 10/03/19 23:00 73 19 125/51 (75) 100 10/03/19 22:58 69 15 50 10/03/19 22:00 69 16 109/51 (70) 100 10/03/19 21:00 73 16 114/50 (71) 100 10/03/19 21:00 100 10/03/19 20:40 75 13 100 10/03/19 20:35 73 118/56 10/03/19 20:00 98.3 76 16 118/56 (76) 89 10/03/19 20:00 40 10/03/19 20:00 Mechanical Ventilator 10/03/19 20:00 73 10/03/19 19:12 77 16 40 10/03/19 19:00 76 17 133/50 (77) 95 10/03/19 18:00 81 20 103/46 (65) 100 10/03/19 17:39 73 17 40 10/03/19 17:00 78 20 149/52 (84) 100 10/03/19 16:09 74 10/03/19 16:00 40 10/03/19 16:00 99.2 70 13 108/45 (66) 100 10/03/19 16:00 Mechanical Ventilator 10/03/19 15:06 75 15 40 10/03/19 15:00 78 17 111/49 (69) 100 I&O Intake and Output 10/03/19 10/04/19 19:00 07:00 Intake Total 720 ml 865 ml Output Total 580 ml 420 ml Balance 140 ml 445 ml IV Total 275 ml Tube Feeding 720 ml 540 ml Other 50 ml Output Urine Total 580 ml 420 ml Dressing: other Wound: other Drains: other Cardiovascular: RSR Respiratory: decreased breath sounds Abdomen: soft, non-tender, present bowel sounds Extremities: no cyanosis Laboratory Tests Test 10/03/19 17:00 10/04/19 04:26 Vancomycin Level Trough 6.2 ug/mL (5.0-12.0) White Blood Count 11.5 K/UL (4.8-10.8) H Red Blood Count 3.20 M/UL (4.70-6.10) L Hemoglobin 8.4 G/DL (14.2-18.0) L Hematocrit 26.0 % (42.0-52.0) L Mean Corpuscular Volume 81 FL (80-99) Mean Corpuscular Hemoglobin 26.3 PG (27.0-31.0) L Mean Corpuscular Hemoglobin Concent 32.4 G/DL (32.0-36.0) Red Cell Distribution Width 16.7 % (11.6-14.8) H Platelet Count 460 K/UL (150-450) H Mean Platelet Volume 5.2 FL (6.5-10.1) L Neutrophils (%) (Auto) 73.4 % (45.0-75.0) Lymphocytes (%) (Auto) 18.2 % (20.0-45.0) L Monocytes (%) (Auto) 5.7 % (1.0-10.0) Eosinophils (%) (Auto) 2.3 % (0.0-3.0) Basophils (%) (Auto) 0.5 % (0.0-2.0) Sodium Level 141 MMOL/L (136-145) Potassium Level 4.5 MMOL/L (3.5-5.1) Chloride Level 106 MMOL/L (98-107) Carbon Dioxide Level 26 MMOL/L (21-32) Anion Gap 9 mmol/L (5-15) Blood Urea Nitrogen 24 mg/dL (7-18) H Creatinine 1.2 MG/DL (0.55-1.30) Estimat Glomerular Filtration Rate > 60 mL/min (>60) Glucose Level 125 MG/DL (74-106) H Calcium Level 8.6 MG/DL (8.5-10.1) Total Bilirubin 0.2 MG/DL (0.2-1.0) Aspartate Amino Transf (AST/SGOT) 72 U/L (15-37) H Alanine Aminotransferase (ALT/SGPT) 64 U/L (12-78) Alkaline Phosphatase 216 U/L (46-116) H Pro-B-Type Natriuretic Peptide 436 pg/mL (0-125) H Total Protein 7.2 G/DL (6.4-8.2) Albumin 1.4 G/DL (3.4-5.0) L Globulin 5.8 g/dL Albumin/Globulin Ratio 0.2 (1.0-2.7) L Plan Problems: (1) UTI (urinary tract infection) (2) Acute respiratory failure Assessment & Plan: There is infiltrate suspected in the right perihilar region obscuring the right hilum. There is a hazy opacity that may partially be accounted for by pleural fluid on the right. Reticular densities are present on the left in the perihilar aspect of the lung. Endotracheal tube is in good position just above the aneslmo. Heart size is normal. IMPRESSION: Suspected perihilar airspace disease in the right lung suspicious for pneumonia. Reticular nodular infiltrate in the left lung noted also. Right pleural effusion suspected. Endotracheal tube in good position cont vents support Lungs: Similar bilateral interstitial prominence, greater on the right. Stable right perihilar, mid and lower lung opacities. Similar left lung base opacity. Pleural space: Small left pleural effusion is stable. Loculated right pleural effusion is stable. No pneumothorax. Heart: Unremarkable. No cardiomegaly. Mediastinum: Unremarkable. Bones/joints: Unremarkable. Tubes, lines and devices: Endotracheal tube has been pulled back and is 10 cm above the anselmo near the thoracic inlet. IMPRESSION: Endotracheal tube has been pulled back and is 10 cm above the anselmo near the thoracic inlet. Remainder findings are stable. may need thoracentesis soon Moderate size right pleural effusion with right upper and lower lobe atelectasis/consolidation, as well as mild pulmonary edema.. 1. Patchy opacities throughout the right lung left mid and lower lung, similar to slightly increased. Possible small bilateral pleural effusions. 2. Endotracheal tube terminates in the region of the lower thoracic trachea above the anselmo. consider trach (3) Sepsis Assessment & Plan: Pt cachetic and presented on admission with multiple pressure injuries. Partial thickness pressure injury Cleft of L ear(L)1.2cm x (W)0.4cm. Base of wound moist and viable with small amt sanguineous exudate. Partial thickness pressure injury cleft of R ear(L)0.5cm x (W)0.7cm. Base of wound moist and viable Periwound erythematous.Small amt sanguineous exudate noted. Sacral DTPI(L)5cm x (W)10.5cm. Base of injury is purple with maroon borders. Coccygeal bony protrusion with darker skin tone, and small opening noted to R gluteus (L)0.5cm x (W)0.5cm within base of injury. No further skin breakdown periwound. Intact blood blister noted to R 1st metatarsal head(L)1.1cm x (W)2.5cm. DTPI noted to L heel extending into plantar aspect. Base of injury presents as an intact blood filled blister. Periwound is boggy with non-blanching erythema. R heel is boggy but blanchable. wounds unlikely etiology of sepsis respiratory but given current condition high risk for breakdown and worsening will monitor closely discussed with RN and staff great care being provided coded acls intubated in ICU prognosis guarded Tx.Plan: Apply Betadine to clefts of R and L ears. Pad oxygen tubing with gauze and keep oxygen tubing loose. Apply Moisture Barrier Paste to Sacrum. Cover with Optifoam drsg. Change every 3 days and prn. Apply Betadine to L heel. Cover with Optifoam drsg. Change every 3 days and prn. Apply Betadine to R 1st metatarsal head. Cover with Optifoam drsg. Change every 3 days and prn. Apply Cavilon Skin Barrier R heel. Cover with Optifoam drsg. Change every 7 days and prn. Reposition at least every 2hours or as tolerated. Off-load heels with pillow. on air mattress but not very comfortable appearing cont current care / pulm management (4) Severe anemia (5) Nosocomial pneumonia (6) Atrial fibrillation (7) Acute metabolic encephalopathy (8) History of CVA (cerebrovascular accident) (9) Diabetes mellitus (10) Hypothyroidism (11) Alzheimer's dementia (12) PVC (premature ventricular contraction) (13) Hypertension (14) Squamous cell esophageal cancer (15) Feeding by G-tube (16) Dehydration (17) Anemia (18) Severe malnutrition Assessment & Plan: DAILY ESTIMATED NEEDS: Needs based on underweight, suspected wt loss, wounds/ 63kg 25-33 kcals/kg 4583-3973 total kcals 1.25-2 g protein/kg 78-126 g total protein 25-30 mL/kg 4245-4879 total fluid mLs NUTRITION DIAGNOSIS: * Swallowing difficulty R/T dysphagia w/ h/o CVA as evidenced by now s/p recent PEG placement (08/08/19), on GT feeds, held at time, s/p code blue (09/07), orally intubated, now extubated. * Increased kcal/prot intake needs R/T suspected significant wt loss and underweight status, wounds as evidenced by 10lbs/6.7% wt loss in 1 month, 76% IBW w/ BMI of 18.4, admitted w/ DTPI wound @ sacrum, Lt heel, partial thickness pressure injury cleft of R L ear. CURRENT TF:Osmolite 1.2 @ 60ml/hr x 22 hrs ENTERAL NUTRITION RECOMMENDATIONS: Osmolite 1.2 @ 60ml/hr x 22 hrs + Prosource x 1 to provide 1320ml, 1584kcal, 73g +11g prot, 1082ml free water - Add Prosource x 1 to meet protein needs - HOLD 1 hr before and after synthroid meds. add Prosource 1 pack daily to better meet est pro needs - Flush per MD/ HOB over 30 degrees WITH ELEV BG, rec TF change to Glucerna 1.2 w/ a goal of 60ml/hr x22 hrs to provide 1320ml, 1584kcal, 79g prot ADDITIONAL RECOMMENDATIONS: * PER SNF: HT=6'1" WT= 139lbs ("August weight" from SNF) -> calibrated bedscale wt * Monitor K, need for TF change (K 5.9 upon adm, now wnl) * Wound care: add Vit C 500mg QD + Wesley 1pkt BID via PEG * Monitor BGs, need for NISS: h/o DM per MD (checking A1C not suggested given low hgb) (19) Encounter for PEG (percutaneous endoscopic gastrostomy) (20) At high risk for aspiration (21) Pleural effusion (22) Suspected COVID-19 virus infection Jan Mora Oct 04, 2019 14:27
--- NOTE | 2019-10-04 15:01 | Nephrology Progress Note ---
Assessment/Plan Problem List: (1) RAMAN (acute kidney injury) Assessment: Serum creatinine normalized with hydration (2) Dehydration (3) Suspected COVID-19 virus infection (4) Anemia (5) Sepsis (6) Diabetes mellitus (7) Hypothyroidism Assessment - Acute renal failure - Severe anemia - Sepsis, pneumonia, acute respiratory failure, suspected: Viewed 19 virus infection - Diabetes mellitus - Hypothyroidism - Feeding by G-tube - Squamous cell esophageal cancer - History of CVA (cerebrovascular accident) Plan Patient was coded early September 23 morning and back in ICU intubated Serum creatinine miguel to 1.5, now back to normal Stable from renal standpoint of view at this point He is status remains full code Tested negative for COVID-19 Previously: Pneumonia SARS-CoV neg x2 MRSA screen pos sp cx: PSA and proteus Changes Seroquel to "as needed" due to bradycardia Discontinue IV fluid Monitor renal parameters, serum creatinine Adjust electrolytes with supplements Increase Synthroid dose Avoid nephrotoxic's as possible Ventilator management Urine studies Per orders Subjective ROS Limited/Unobtainable: Yes Objective Objective Last 24 Hour Vital Signs Date Time Temp Pulse Resp B/P (MAP) Pulse Ox O2 Delivery O2 Flow Rate FiO2 10/04/19 14:26 80 17 40 10/04/19 14:00 99.4 85 16 112/51 (71) 100 10/04/19 13:00 99.7 78 16 118/59 (78) 98 10/04/19 12:50 80 16 40 10/04/19 12:00 Mechanical Ventilator 10/04/19 12:00 40 10/04/19 12:00 82 15 117/57 (77) 97 10/04/19 11:22 83 10/04/19 11:00 86 19 122/54 (76) 98 10/04/19 10:52 86 20 40 10/04/19 10:00 88 18 125/54 (77) 98 10/04/19 09:00 87 21 129/60 (83) 100 10/04/19 08:59 100 10/04/19 08:06 80 116/53 10/04/19 08:00 Mechanical Ventilator 10/04/19 08:00 40 10/04/19 08:00 99.3 76 14 114/51 (72) 100 10/04/19 07:27 78 10/04/19 07:22 80 17 100 Mechanical Ventilator 100 10/04/19 07:20 78 17 40 10/04/19 07:00 78 16 116/53 (74) 100 10/04/19 06:30 75 15 10/04/19 06:00 78 15 120/51 (74) 100 10/04/19 05:05 82 16 40 10/04/19 05:00 82 15 114/71 (85) 100 10/04/19 04:00 98.8 86 17 128/63 (84) 100 10/04/19 04:00 40 10/04/19 04:00 79 10/04/19 04:00 Mechanical Ventilator 10/04/19 03:13 81 18 40 10/04/19 03:00 73 12 113/49 (70) 100 10/04/19 02:00 69 14 107/48 (67) 100 10/04/19 01:05 70 12 50 10/04/19 01:00 73 13 120/47 (71) 100 10/04/19 00:00 98.4 72 13 106/51 (69) 100 10/04/19 00:00 60 10/04/19 00:00 73 10/04/19 00:00 Mechanical Ventilator 10/03/19 23:00 73 19 125/51 (75) 100 10/03/19 22:58 69 15 50 10/03/19 22:00 69 16 109/51 (70) 100 10/03/19 21:00 73 16 114/50 (71) 100 10/03/19 21:00 100 10/03/19 20:40 75 13 100 10/03/19 20:35 73 118/56 10/03/19 20:00 98.3 76 16 118/56 (76) 89 10/03/19 20:00 40 10/03/19 20:00 Mechanical Ventilator 10/03/19 20:00 73 10/03/19 19:12 77 16 40 10/03/19 19:00 76 17 133/50 (77) 95 10/03/19 18:00 81 20 103/46 (65) 100 10/03/19 17:39 73 17 40 10/03/19 17:00 78 20 149/52 (84) 100 10/03/19 16:09 74 10/03/19 16:00 40 10/03/19 16:00 99.2 70 13 108/45 (66) 100 10/03/19 16:00 Mechanical Ventilator 10/03/19 15:06 75 15 40 10/03/19 15:00 78 17 111/49 (69) 100 Intake and Output 10/03/19 10/04/19 19:00 07:00 Intake Total 720 ml 865 ml Output Total 580 ml 420 ml Balance 140 ml 445 ml IV Total 275 ml Tube Feeding 720 ml 540 ml Other 50 ml Output Urine Total 580 ml 420 ml Current Medications Medications (Trade) Dose Ordered Sig/Kike Route PRN Reason Start Time Stop Time Status Last Admin Dose Admin Acetaminophen (Tylenol) 650 mg Q4H PRN ORAL fever 09/24/19 03:00 10/07/19 02:54 10/01/19 13:07 Amlodipine Besylate (Norvasc) 5 mg BID@0900,2100 NG 09/24/19 21:00 10/22/19 08:59 10/04/19 08:06 Docusate Sodium (Colace) 100 mg TWICE A DAY GT 10/04/19 09:00 11/03/19 08:59 10/04/19 08:05 Heparin Sodium (Porcine) (Heparin 5000 units/ml) 5,000 units EVERY 12 HOURS SUBQ 09/24/19 09:00 10/22/19 08:59 10/04/19 08:07 Lansoprazole (Prevacid) 30 mg DAILY GT 10/04/19 09:00 11/03/19 08:59 10/04/19 08:06 Levofloxacin (Levaquin) 750 mg DAILY ORAL 09/30/19 13:00 10/07/19 12:59 10/04/19 09:53 Levothyroxine Sodium (Synthroid) 75 mcg DAILY@0630 ORAL 09/24/19 06:30 10/07/19 08:29 10/04/19 05:40 Nitroglycerin (Ntg) 0.4 mg Q5M PRN SL Prn Chest Pain 09/24/19 02:30 10/07/19 04:29 Ondansetron HCl (Zofran) 4 mg Q6H PRN IVP Nausea & Vomiting 09/24/19 03:00 10/07/19 02:57 09/28/19 21:10 Polyethylene Glycol (Miralax) 17 gm DAILYPRN PRN ORAL Constipation 09/24/19 03:00 10/07/19 02:57 Promethazine HCl/ Codeine (Phenergan with Codeine) 5 ml Q4H PRN ORAL For Cough 09/24/19 03:00 10/07/19 02:58 Quetiapine Fumarate (SEROqueL) 25 mg Q8H PRN NG Agitation 09/24/19 02:35 10/30/19 02:34 09/30/19 03:10 Vancomycin HCl (Vanco rx to dose) 1 ea DAILY PRN MISC Per rx protocol 10/01/19 17:15 10/31/19 17:14 Vancomycin HCl 750 mg/Sodium Chloride 275 ml @ 183.333 mls/hr Q12HR@0800,1999 IVPB 10/03/19 20:00 10/08/19 19:59 10/04/19 08:03 Laboratory Tests 10/03/19 17:00: Vancomycin Level Trough 6.2 10/04/19 04:26: White Blood Count 11.5H, Red Blood Count 3.20L, Hemoglobin 8.4L, Hematocrit 26.0L, Mean Corpuscular Volume 81, Mean Corpuscular Hemoglobin 26.3L, Mean Corpuscular Hemoglobin Concent 32.4, Red Cell Distribution Width 16.7H, Platelet Count 460H, Mean Platelet Volume 5.2L, Neutrophils (%) (Auto) 73.4, Lymphocytes (%) (Auto) 18.2L, Monocytes (%) (Auto) 5.7, Eosinophils (%) (Auto) 2.3, Basophils (%) (Auto) 0.5, Sodium Level 141, Potassium Level 4.5, Chloride Level 106, Carbon Dioxide Level 26, Anion Gap 9, Blood Urea Nitrogen 24H, Creatinine 1.2, Estimat Glomerular Filtration Rate > 60, Glucose Level 125H, Calcium Level 8.6, Total Bilirubin 0.2, Aspartate Amino Transf (AST/SGOT) 72H, Alanine Aminotransferase (ALT/SGPT) 64, Alkaline Phosphatase 216H, Pro-B-Type Natriuretic Peptide 436H, Total Protein 7.2, Albumin 1.4L, Globulin 5.8, Albumin /Globulin Ratio 0.2L Height (Feet): 5 Height (Inches): 11.00 Weight (Pounds): 144 General Appearance: no apparent distress EENT: other - Remains intubated on ventilator Cardiovascular: tachycardia Respiratory/Chest: decreased breath sounds Abdomen: distended Objective no change Clovis Benites MD Oct 04, 2019 15:01
--- NOTE | 2019-10-04 15:35 | Internal Med Progress Note ---
Subjective Date of Service: Oct 04, 2019 Physician Name Xander Bah Attending Physician Lamont Hayes MD Current Medications Medications (Trade) Dose Ordered Sig/Kike Route PRN Reason Start Time Stop Time Status Last Admin Dose Admin Acetaminophen (Tylenol) 650 mg Q4H PRN ORAL fever 09/24/19 03:00 10/07/19 02:54 10/01/19 13:07 Amlodipine Besylate (Norvasc) 5 mg BID@0900,2100 NG 09/24/19 21:00 10/22/19 08:59 10/04/19 08:06 Docusate Sodium (Colace) 100 mg TWICE A DAY GT 10/04/19 09:00 11/03/19 08:59 10/04/19 08:05 Heparin Sodium (Porcine) (Heparin 5000 units/ml) 5,000 units EVERY 12 HOURS SUBQ 09/24/19 09:00 10/22/19 08:59 10/04/19 08:07 Lansoprazole (Prevacid) 30 mg DAILY GT 10/04/19 09:00 11/03/19 08:59 10/04/19 08:06 Levofloxacin (Levaquin) 750 mg DAILY ORAL 09/30/19 13:00 10/07/19 12:59 10/04/19 09:53 Levothyroxine Sodium (Synthroid) 75 mcg DAILY@0630 ORAL 09/24/19 06:30 10/07/19 08:29 10/04/19 05:40 Nitroglycerin (Ntg) 0.4 mg Q5M PRN SL Prn Chest Pain 09/24/19 02:30 10/07/19 04:29 Ondansetron HCl (Zofran) 4 mg Q6H PRN IVP Nausea & Vomiting 09/24/19 03:00 10/07/19 02:57 09/28/19 21:10 Polyethylene Glycol (Miralax) 17 gm DAILYPRN PRN ORAL Constipation 09/24/19 03:00 10/07/19 02:57 Promethazine HCl/ Codeine (Phenergan with Codeine) 5 ml Q4H PRN ORAL For Cough 09/24/19 03:00 10/07/19 02:58 Quetiapine Fumarate (SEROqueL) 25 mg Q8H PRN NG Agitation 09/24/19 02:35 10/30/19 02:34 09/30/19 03:10 Vancomycin HCl (Vanco rx to dose) 1 ea DAILY PRN MISC Per rx protocol 10/01/19 17:15 10/31/19 17:14 Vancomycin HCl 750 mg/Sodium Chloride 275 ml @ 183.333 mls/hr Q12HR@0800,2000 IVPB 10/03/19 20:00 10/08/19 19:59 10/04/19 08:03 Allergies: Coded Allergies: PENICILLINS (Verified Allergy, Unknown, 10/27/18) tolretas cephalosporins ROS Limited/Unobtainable: Yes Subjective 84 YO M admitted with cough and congestion. Cover for Int Med-Dr Hayes. Reintubated 09/24/19 after cardiopulmonary arrest-see code blue note. ICU Objective Last Vital Signs Date Time Temp Pulse Resp B/P (MAP) Pulse Ox O2 Delivery O2 Flow Rate FiO2 10/04/19 14:26 80 17 40 10/04/19 14:00 99.4 112/51 (71) 100 10/04/19 12:00 Mechanical Ventilator Laboratory Tests Test 10/03/19 17:00 10/04/19 04:26 Vancomycin Level Trough 6.2 ug/mL (5.0-12.0) White Blood Count 11.5 K/UL (4.8-10.8) H Red Blood Count 3.20 M/UL (4.70-6.10) L Hemoglobin 8.4 G/DL (14.2-18.0) L Hematocrit 26.0 % (42.0-52.0) L Mean Corpuscular Volume 81 FL (80-99) Mean Corpuscular Hemoglobin 26.3 PG (27.0-31.0) L Mean Corpuscular Hemoglobin Concent 32.4 G/DL (32.0-36.0) Red Cell Distribution Width 16.7 % (11.6-14.8) H Platelet Count 460 K/UL (150-450) H Mean Platelet Volume 5.2 FL (6.5-10.1) L Neutrophils (%) (Auto) 73.4 % (45.0-75.0) Lymphocytes (%) (Auto) 18.2 % (20.0-45.0) L Monocytes (%) (Auto) 5.7 % (1.0-10.0) Eosinophils (%) (Auto) 2.3 % (0.0-3.0) Basophils (%) (Auto) 0.5 % (0.0-2.0) Sodium Level 141 MMOL/L (136-145) Potassium Level 4.5 MMOL/L (3.5-5.1) Chloride Level 106 MMOL/L (98-107) Carbon Dioxide Level 26 MMOL/L (21-32) Anion Gap 9 mmol/L (5-15) Blood Urea Nitrogen 24 mg/dL (7-18) H Creatinine 1.2 MG/DL (0.55-1.30) Estimat Glomerular Filtration Rate > 60 mL/min (>60) Glucose Level 125 MG/DL (74-106) H Calcium Level 8.6 MG/DL (8.5-10.1) Total Bilirubin 0.2 MG/DL (0.2-1.0) Aspartate Amino Transf (AST/SGOT) 72 U/L (15-37) H Alanine Aminotransferase (ALT/SGPT) 64 U/L (12-78) Alkaline Phosphatase 216 U/L (46-116) H Pro-B-Type Natriuretic Peptide 436 pg/mL (0-125) H Total Protein 7.2 G/DL (6.4-8.2) Albumin 1.4 G/DL (3.4-5.0) L Globulin 5.8 g/dL Albumin/Globulin Ratio 0.2 (1.0-2.7) L Microbiology Date/Time Source Procedure Growth Status 10/02/19 04:15 Blood Blood Culture - Preliminary NO GROWTH AFTER 48 HOURS Resulted 10/02/19 04:00 Blood Blood Culture - Preliminary NO GROWTH AFTER 48 HOURS Resulted 10/01/19 19:03 Nasopharynx Coronavirus COVID-19 PCR (KEEGAN) - Final Complete 10/02/19 15:00 Urine,Clean Catch Urine Culture - Preliminary YEAST Resulted Intake and Output 10/03/19 10/04/19 19:00 07:00 Intake Total 720 ml 865 ml Output Total 580 ml 420 ml Balance 140 ml 445 ml IV Total 275 ml Tube Feeding 720 ml 540 ml Other 50 ml Output Urine Total 580 ml 420 ml Objective PHYSICAL EXAMINATION: GENERAL: The patient is a thin-appearing male, in no apparent distress. HEENT: Eyes, pupils are equal and responsive to light and accommodation. Extraocular movements are intact. NECK: Supple without lymphadenopathy. CHEST: Mech vent; Lungs are clear to auscultation bilaterally with decreased breath sounds on the right. There are no wheezes appreciated. ABDOMEN: Soft, nontender, and nondistended. Positive bowel sounds. No evidence of hepatosplenomegaly. Currently, no rebound or guarding noted. EXTREMITIES: Negative for clubbing, cyanosis, or edema. RECTAL/GENITAL: Not performed. NEUROLOGIC: Cranial nerves II through XII are grossly intact without focal deficits. Assessment/Plan Assessment/Plan ASSESSMENT: This is an 84-year-old male with: 1. right pneumonia=pseudamonas 2. Urinary tract infection=jennifer 3. Right pleural effusion. 4. Esophageal mass. 5. Dysphagia. 6. Diabetes. 7. Alzheimer's dementia. 8. Cerebrovascular disease. 9. Hypothyroidism. 10. Seizure disorder. 11. Iron deficiency anemia. 13. Respiratory failure 14. S/P cardiopulmonary arrest 15. Anemia TREATMENT: 1. Right perihilar Pneumonia/pleural effusion. COVID 19 and Influenza negative. A Pulmonary consultation has been obtained with Dr. Vania Hui. S/P right thoracentesis 09/19/19. We will follow recommendation of Pulmonary. ID=Dr Roach ABX= levofloxacin and vanco 2. Urinary tract infection. . A urine culture =jennifer 3. Right pleural effusion. As above, a Pulmonary consultation has been obtained with Dr. Vania Hui. The patient may require thoracentesis during this hospitalization. 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 A Gastroenterology consultation has been obtained with Dr. Darrick Rosario. 5. Dysphagia. The patient is status post PEG placement on 08/08/[address] [facility] [address] Darrick Rosario. 6. Diabetes type 2. A NovoLog sliding scale has been instituted. 7. Alzheimer's dementia. 8. Cerebrovascular disease, status post cerebrovascular accident. 9. Hypothyroidism. Continue levothyroxine as above. 10. Seizure disorder. 11. Iron deficiency anemia. 12. reintubated 09/24/19-see code blue note 13. S/P transfusion 2 units PRBC Xander Bah MD Oct 04, 2019 15:35
[2019-10-05] VITALS (24 sets, daily range): BP systolic 103–139; BP diastolic 42–72
[2019-10-05 07:01] LABS: ANION GAP 8 mmol/L (5-15); BLOOD UREA NITROGEN 24 mg/dL (7-18); CALCIUM 9.3 MG/DL (8.5-10.1); CARBON DIOXIDE 26 MMOL/L (21-32); CHLORIDE 102 MMOL/L (98-107); CREATININE 1.1 MG/DL (0.55-1.30); POTASSIUM 5.2 MMOL/L (3.5-5.1); SODIUM 136 MMOL/L (136-145)
[2019-10-05 07:08] LABS: BASOPHILS % (AUTO) 0.4 % (0.0-2.0); EOSINOPHILS % (AUTO) 2.5 % (0.0-3.0); HEMATOCRIT 29.4 % (42.0-52.0); HEMOGLOBIN 9.5 G/DL (14.2-18.0); LYMPHOCYTES % (AUTO) 16.3 % (20.0-45.0); MEAN CORPUSCULAR VOLUME 81 FL (80-99); MONOCYTES % (AUTO) 6.2 % (1.0-10.0); NEUTROPHILS % (AUTO) 74.6 % (45.0-75.0); PLATELET COUNT 504 K/UL (150-450); RED BLOOD COUNT 3.64 M/UL (4.70-6.10); RED CELL DISTRIBUTION WIDTH 17.4 % (11.6-14.8); WHITE BLOOD COUNT 12.8 K/UL (4.8-10.8)
[2019-10-05] MEDS: Vancomycin 750 MG in NS 275 ML IVPB SCH ×2 (08:22→20:39)
[2019-10-05] MEDS: Docusate 100mg/10ml Liq GT SCH ×3 (08:23→18:34)
[2019-10-05] MEDS: Heparin 5000 units/ml inj SUBQ SCH ×2 (08:25→20:40)
--- NOTE | 2019-10-05 09:29 | General Progress Note ---
Assessment/Plan Status: unchanged Assessment/Plan: 1. Esophageal cancer. 2. Dysphagia. 3. Diabetes type 2. 4. Dementia. 5. CVA. 6. Hypothyroidism. 7. Seizure disorder. 8. Iron deficiency anemia. 9. Respiratory failure. 10. Dysphagia with G-tube stable H&H GT has been changed and working well GT flushes abx per id pulm care bowel regimen recent labs and notes reviewed D/W the nurse will fu Subjective ROS Limited/Unobtainable: No Allergies: Coded Allergies: PENICILLINS (Verified Allergy, Unknown, 10/27/18) tolretas cephalosporins Objective Last 24 Hour Vital Signs Date Time Temp Pulse Resp B/P (MAP) Pulse Ox O2 Delivery O2 Flow Rate FiO2 10/05/19 08:24 82 122/58 10/05/19 07:02 76 16 40 10/05/19 07:00 86 17 129/63 (85) 100 10/05/19 06:30 99 16 10/05/19 06:00 99 18 136/72 (93) 100 10/05/19 05:29 82 20 40 10/05/19 05:00 94 18 135/69 (91) 96 10/05/19 04:00 40 10/05/19 04:00 99.0 88 21 127/59 (81) 96 10/05/19 04:00 82 10/05/19 04:00 Mechanical Ventilator 10/05/19 03:30 85 22 40 10/05/19 03:00 87 20 139/70 (93) 98 10/05/19 02:00 75 18 124/51 (75) 100 10/05/19 01:30 80 18 40 10/05/19 01:00 77 16 129/59 (82) 100 10/05/19 00:00 98.0 81 18 130/65 (86) 100 10/05/19 00:00 40 10/05/19 00:00 78 10/05/19 00:00 Mechanical Ventilator 10/04/19 23:30 81 23 40 10/04/19 23:00 80 16 133/60 (84) 100 10/04/19 22:00 82 15 137/62 (87) 100 10/04/19 21:12 58 17 40 10/04/19 21:00 81 18 127/59 (81) 98 10/04/19 20:11 78 127/57 10/04/19 20:00 75 10/04/19 20:00 Mechanical Ventilator 10/04/19 20:00 40 10/04/19 20:00 98.5 78 15 127/57 (80) 100 10/04/19 19:30 84 15 40 10/04/19 19:00 74 17 129/56 (80) 100 10/04/19 18:00 77 17 119/52 (74) 100 10/04/19 17:08 79 16 40 10/04/19 17:00 98.8 79 16 126/51 (76) 100 10/04/19 16:00 40 10/04/19 16:00 81 10/04/19 16:00 81 17 123/58 (79) 95 10/04/19 16:00 Mechanical Ventilator 10/04/19 15:00 77 16 112/56 (74) 99 10/04/19 14:26 80 17 40 10/04/19 14:00 99.4 85 16 112/51 (71) 100 10/04/19 13:00 99.7 78 16 118/59 (78) 98 10/04/19 12:50 80 16 40 10/04/19 12:00 Mechanical Ventilator 10/04/19 12:00 40 10/04/19 12:00 82 15 117/57 (77) 97 10/04/19 11:22 83 10/04/19 11:00 86 19 122/54 (76) 98 10/04/19 10:52 86 20 40 10/04/19 10:00 88 18 125/54 (77) 98 Intake and Output 10/04/19 10/05/19 19:00 07:00 Intake Total 1095.000 ml 965 ml Output Total 855 ml 780 ml Balance 240.000 ml 185 ml Intake Free Water 90 ml IV Total 275.000 ml 275 ml Tube Feeding 720 ml 600 ml Other 100 ml Output Urine Total 855 ml 780 ml Laboratory Tests 10/05/19 06:30: White Blood Count 12.8H, Red Blood Count 3.64L, Hemoglobin 9.5L, Hematocrit 29.4L, Mean Corpuscular Volume 81, Mean Corpuscular Hemoglobin 26.1L, Mean Corpuscular Hemoglobin Concent 32.2, Red Cell Distribution Width 17.4H, Platelet Count 504H, Mean Platelet Volume 4.9L, Neutrophils (%) (Auto) 74.6, Lymphocytes (%) (Auto) 16.3L, Monocytes (%) (Auto) 6.2, Eosinophils (%) (Auto) 2.5, Basophils (%) (Auto) 0.4, Sodium Level 136, Potassium Level 5.2H, Chloride Level 102, Carbon Dioxide Level 26, Anion Gap 8, Blood Urea Nitrogen 24H, Creatinine 1.1, Estimat Glomerular Filtration Rate > 60, Glucose Level 121H, Calcium Level 9.3, Vancomycin Level Trough 15.6H Height (Feet): 5 Height (Inches): 11.00 Weight (Pounds): 145 General Appearance: no apparent distress EENT: normal ENT inspection Neck: supple Cardiovascular: normal rate Respiratory/Chest: decreased breath sounds Abdomen: normal bowel sounds, non tender, soft Extremities: non-tender Darrick Rosario MD Oct 05, 2019 09:29
[2019-10-05] MEDS: Levofloxacin 750mg tab ORAL SCH (09:56)
--- NOTE | 2019-10-05 10:58 | Pulmonolgy Critical Care Note ---
Critical Care - Asmt/Plan Problems: (1) Acute respiratory failure Assessment & Plan: got reintubated (2) Pleural effusion Assessment & Plan: s/p thoracentesis times 2 (3) Nosocomial pneumonia (4) Sepsis (5) Squamous cell esophageal cancer (6) Diabetes mellitus (7) Severe malnutrition (8) Alzheimer's dementia (9) History of CVA (cerebrovascular accident) (10) Feeding by G-tube Respiratory: monitor respiratory rate, adjust FIO2, CXR, weaning trial Cardiac: continue pressors, continue to monitor HR/BP Renal: F/U I&O, keep IV fluid, check electrolytes Infectious Disease: check cultures, continue antibiotics Gastrointestinal: continue feedings/current rate Endocrine: monitor blood sugar, continue sliding scale insulin Hematologic: monitor H/H, transfuse if hgb<8.5 Neurologic: PRN Ativan, keep patient comfortable Prophylaxis: Protonix, Heparin Notes Reviewed: paintings conservator, cardio, 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 with: nurses, consultants, case management director, family member - d/w pts niece yesterday about plan of care. I suggested comfortcareand end of life care. Critical Care - Objective Last 24 Hour Vital Signs Date Time Temp Pulse Resp B/P (MAP) Pulse Ox O2 Delivery O2 Flow Rate FiO2 10/05/19 10:00 83 19 129/55 (79) 96 10/05/19 09:00 82 19 122/42 (68) 90 10/05/19 08:24 82 122/58 10/05/19 08:00 40 10/05/19 08:00 98.8 81 17 122/58 (79) 99 10/05/19 08:00 Mechanical Ventilator 10/05/19 07:02 76 16 40 10/05/19 07:00 86 17 129/63 (85) 100 10/05/19 06:30 99 16 10/05/19 06:00 99 18 136/72 (93) 100 10/05/19 05:29 82 20 40 10/05/19 05:00 94 18 135/69 (91) 96 10/05/19 04:00 40 10/05/19 04:00 99.0 88 21 127/59 (81) 96 10/05/19 04:00 82 10/05/19 04:00 Mechanical Ventilator 10/05/19 03:30 85 22 40 10/05/19 03:00 87 20 139/70 (93) 98 10/05/19 02:00 75 18 124/51 (75) 100 10/05/19 01:30 80 18 40 10/05/19 01:00 77 16 129/59 (82) 100 10/05/19 00:00 98.0 81 18 130/65 (86) 100 10/05/19 00:00 40 10/05/19 00:00 78 10/05/19 00:00 Mechanical Ventilator 10/04/19 23:30 81 23 40 10/04/19 23:00 80 16 133/60 (84) 100 10/04/19 22:00 82 15 137/62 (87) 100 10/04/19 21:12 58 17 40 10/04/19 21:00 81 18 127/59 (81) 98 10/04/19 20:11 78 127/57 10/04/19 20:00 75 10/04/19 20:00 Mechanical Ventilator 10/04/19 20:00 40 10/04/19 20:00 98.5 78 15 127/57 (80) 100 10/04/19 19:30 84 15 40 10/04/19 19:00 74 17 129/56 (80) 100 10/04/19 18:00 77 17 119/52 (74) 100 10/04/19 17:08 79 16 40 10/04/19 17:00 98.8 79 16 126/51 (76) 100 10/04/19 16:00 40 10/04/19 16:00 81 10/04/19 16:00 81 17 123/58 (79) 95 10/04/19 16:00 Mechanical Ventilator 10/04/19 15:00 77 16 112/56 (74) 99 10/04/19 14:26 80 17 40 10/04/19 14:00 99.4 85 16 112/51 (71) 100 10/04/19 13:00 99.7 78 16 118/59 (78) 98 10/04/19 12:50 80 16 40 10/04/19 12:00 Mechanical Ventilator 10/04/19 12:00 40 10/04/19 12:00 82 15 117/57 (77) 97 10/04/19 11:22 83 10/04/19 11:00 86 19 122/54 (76) 98 Status: sedated, somnolent HEENT: atraumatic Neck: full ROM Lungs: rales, rhonchi Heart: HR/BP stable Abdomen: soft, feeding tube Extremities: edema Micro: Microbiology Date/Time Source Procedure Growth Status 10/03/19 21:00 Sputum Gram Stain - Final Resulted 10/03/19 21:00 Sputum Culture - Preliminary Gram Negative Bacillus 1 Resulted 10/02/19 15:00 Urine,Clean Catch Urine Culture - Final Abi Albicans Complete Critical Care - Subjective ROS Limited/Unobtainable: Yes Condition: critical EKG Rhythm: Sinus Rhythm FI02: 40 Vent Support Breath Rate: 12 Vent Support Mode: AC Vent Tidal Volume: 550 Sputum Amount: Small PEEP: 5.0 PIP: 25 Tube Feeding Amount: 60 I&O: Intake and Output 10/04/19 10/05/19 19:00 07:00 Intake Total 1095.000 ml 965 ml Output Total 855 ml 780 ml Balance 240.000 ml 185 ml Intake Free Water 90 ml IV Total 275.000 ml 275 ml Tube Feeding 720 ml 600 ml Other 100 ml Output Urine Total 855 ml 780 ml ET-Tube: 7.5 ET Position: 26 Labs: Laboratory Tests Test 10/05/19 06:30 White Blood Count 12.8 K/UL (4.8-10.8) H Red Blood Count 3.64 M/UL (4.70-6.10) L Hemoglobin 9.5 G/DL (14.2-18.0) L Hematocrit 29.4 % (42.0-52.0) L Mean Corpuscular Volume 81 FL (80-99) Mean Corpuscular Hemoglobin 26.1 PG (27.0-31.0) L Mean Corpuscular Hemoglobin Concent 32.2 G/DL (32.0-36.0) Red Cell Distribution Width 17.4 % (11.6-14.8) H Platelet Count 504 K/UL (150-450) H Mean Platelet Volume 4.9 FL (6.5-10.1) L Neutrophils (%) (Auto) 74.6 % (45.0-75.0) Lymphocytes (%) (Auto) 16.3 % (20.0-45.0) L Monocytes (%) (Auto) 6.2 % (1.0-10.0) Eosinophils (%) (Auto) 2.5 % (0.0-3.0) Basophils (%) (Auto) 0.4 % (0.0-2.0) Sodium Level 136 MMOL/L (136-145) Potassium Level 5.2 MMOL/L (3.5-5.1) H Chloride Level 102 MMOL/L (98-107) Carbon Dioxide Level 26 MMOL/L (21-32) Anion Gap 8 mmol/L (5-15) Blood Urea Nitrogen 24 mg/dL (7-18) H Creatinine 1.1 MG/DL (0.55-1.30) Estimat Glomerular Filtration Rate > 60 mL/min (>60) Glucose Level 121 MG/DL (74-106) H Calcium Level 9.3 MG/DL (8.5-10.1) Vancomycin Level Trough 15.6 ug/mL (5.0-12.0) H Vania Hui MD Oct 05, 2019 10:58
--- NOTE | 2019-10-05 11:20 | Infectious Diseases Prog Note ---
Assessment/Plan Assessment/Plan 09/23 SP asystole cardiac arrest VDRF 09/23 Fever; SP Mild leukocytosis, improving Probableu UTI -10/01 Bcx NTD u/a wbc tnct; ucx 30-40k C.albicans PNA VDRF, sp intubation 09/08, sp extubation 09/18, re-intubated 09/23 SARS-CoV neg x3 (09/06, 09/08, 09/30) MRSA screen pos 09/06 sp cx: PSA (hensley S) and proteus (hensley S) 10/02 CXR: Increasing pleural fluid and possibly parenchymal consolidation at the right lung base. Unchanged left basilar pleural and parenchymal disease. spcx GNR 09/30 CXR: Patchy opacities throughout the right lung left mid and lower lung, similar to slightly increased. Possible small bilateral pleural effusions. 09/29 CXR: Increasing right mid and lower lung opacity, may indicate increasing pleural fluid, increasing infiltrate, or both. 09/28 CXR: Developing hazy right basilar opacity. This could represent reaching layering pleural fluid. This could also represent reexpansion pulmonary edema given recent high-volume thoracentesis, or could represent developing ammonia or pulmonary edema. Hazy left basilar opacity, unchanged, may reflect parenchymal infiltrate versus pleural fluid versus both 09/25 CXR: Large right pleural effusion is again demonstrated. Small left pleural effusion is again demonstrated. Left lung is otherwise clear. sp cx PsA (R zozyn, S levo, gentamycin) 09/24 CXR: Moderate size right pleural effusion with right upper and lower lobe atelectasis/consolidation, as well as mild pulmonary edema.. 09/17 CXR: Similar bilateral interstitial prominence, greater on the right.Stable right perihilar, mid and lower lung opacities. Similar left lung base opacity. Small left pleural effusion is stable. Loculated right pleural effusion is stable. No pneumothorax. CXR: Right pleural effusion, also demonstrated on prior 08/09/2019 exam, slightly increased. Hazy right lung parenchymal opacity probably represents a superimposed pleural fluid but infiltrate also possible. R pleural effusion, exudative -09/18 SP thorancetesis; removal of 2050 mL fluid; Fluid prot 5 (serum prot 7.2 ); cx Neg QTc 419 RAMAN, improving DM HTN CVA Dementia Nonverbal G tube Plan: Cont Levaquin #6/7 Empiric IV Vancomycin #5/09/19 SPcefepime # /09/09 SP vanc #4 ( Cr increased) ICU care monitor temp and CBC COVID neg x3 sp cx DW RN Thank you for this consult. [facility] will continue to follow the patient with you. Subjective Allergies: Coded Allergies: PENICILLINS (Verified Allergy, Unknown, 10/27/18) tolretas cephalosporins Subjective afebrile >72hrs mild leukocytosis bcx NTD Objective Vital Signs Last 24 Hour Vital Signs Date Time Temp Pulse Resp B/P (MAP) Pulse Ox O2 Delivery O2 Flow Rate FiO2 10/05/19 11:07 82 18 40 10/05/19 11:00 77 20 116/57 (76) 100 10/05/19 10:00 83 19 129/55 (79) 96 10/05/19 09:00 82 19 122/42 (68) 90 10/05/19 08:56 82 10/05/19 08:24 82 122/58 10/05/19 08:00 40 10/05/19 08:00 98.8 81 17 122/58 (79) 99 10/05/19 08:00 Mechanical Ventilator 10/05/19 07:02 76 16 40 10/05/19 07:00 86 17 129/63 (85) 100 10/05/19 06:30 99 16 10/05/19 06:00 99 18 136/72 (93) 100 10/05/19 05:29 82 20 40 10/05/19 05:00 94 18 135/69 (91) 96 10/05/19 04:00 40 10/05/19 04:00 99.0 88 21 127/59 (81) 96 10/05/19 04:00 82 10/05/19 04:00 Mechanical Ventilator 10/05/19 03:30 85 22 40 10/05/19 03:00 87 20 139/70 (93) 98 10/05/19 02:00 75 18 124/51 (75) 100 10/05/19 01:30 80 18 40 10/05/19 01:00 77 16 129/59 (82) 100 10/05/19 00:00 98.0 81 18 130/65 (86) 100 10/05/19 00:00 40 10/05/19 00:00 78 10/05/19 00:00 Mechanical Ventilator 10/04/19 23:30 81 23 40 10/04/19 23:00 80 16 133/60 (84) 100 10/04/19 22:00 82 15 137/62 (87) 100 10/04/19 21:12 58 17 40 10/04/19 21:00 81 18 127/59 (81) 98 10/04/19 20:11 78 127/57 10/04/19 20:00 75 10/04/19 20:00 Mechanical Ventilator 10/04/19 20:00 40 10/04/19 20:00 98.5 78 15 127/57 (80) 100 10/04/19 19:30 84 15 40 10/04/19 19:00 74 17 129/56 (80) 100 10/04/19 18:00 77 17 119/52 (74) 100 10/04/19 17:08 79 16 40 10/04/19 17:00 98.8 79 16 126/51 (76) 100 10/04/19 16:00 40 10/04/19 16:00 81 10/04/19 16:00 81 17 123/58 (79) 95 10/04/19 16:00 Mechanical Ventilator 10/04/19 15:00 77 16 112/56 (74) 99 10/04/19 14:26 80 17 40 10/04/19 14:00 99.4 85 16 112/51 (71) 100 10/04/19 13:00 99.7 78 16 118/59 (78) 98 10/04/19 12:50 80 16 40 10/04/19 12:00 Mechanical Ventilator 10/04/19 12:00 40 10/04/19 12:00 82 15 117/57 (77) 97 10/04/19 11:22 83 Height (Feet): 5 Height (Inches): 11.00 Weight (Pounds): 145 Objective Gen: NAD. well nourished HEENT: ETT. oral secretions Resp: coarse. equal chest rise. regular rate and rhythm. Abd: Soft. no TTP. nondistended. G tube site c/d/i. Neuro: opens eyes to voice and follows simple commands Microbiology Date/Time Source Procedure Growth Status 10/03/19 21:00 Sputum Gram Stain - Final Resulted 10/03/19 21:00 Sputum Culture - Preliminary Gram Negative Bacillus 1 Resulted 10/02/19 15:00 Urine,Clean Catch Urine Culture - Final Abi Albicans Complete Laboratory Tests Test 10/05/19 06:30 White Blood Count 12.8 K/UL (4.8-10.8) H Red Blood Count 3.64 M/UL (4.70-6.10) L Hemoglobin 9.5 G/DL (14.2-18.0) L Hematocrit 29.4 % (42.0-52.0) L Mean Corpuscular Volume 81 FL (80-99) Mean Corpuscular Hemoglobin 26.1 PG (27.0-31.0) L Mean Corpuscular Hemoglobin Concent 32.2 G/DL (32.0-36.0) Red Cell Distribution Width 17.4 % (11.6-14.8) H Platelet Count 504 K/UL (150-450) H Mean Platelet Volume 4.9 FL (6.5-10.1) L Neutrophils (%) (Auto) 74.6 % (45.0-75.0) Lymphocytes (%) (Auto) 16.3 % (20.0-45.0) L Monocytes (%) (Auto) 6.2 % (1.0-10.0) Eosinophils (%) (Auto) 2.5 % (0.0-3.0) Basophils (%) (Auto) 0.4 % (0.0-2.0) Sodium Level 136 MMOL/L (136-145) Potassium Level 5.2 MMOL/L (3.5-5.1) H Chloride Level 102 MMOL/L (98-107) Carbon Dioxide Level 26 MMOL/L (21-32) Anion Gap 8 mmol/L (5-15) Blood Urea Nitrogen 24 mg/dL (7-18) H Creatinine 1.1 MG/DL (0.55-1.30) Estimat Glomerular Filtration Rate > 60 mL/min (>60) Glucose Level 121 MG/DL (74-106) H Calcium Level 9.3 MG/DL (8.5-10.1) Vancomycin Level Trough 15.6 ug/mL (5.0-12.0) H Current Medications Medications (Trade) Dose Ordered Sig/Kike Route PRN Reason Start Time Stop Time Status Last Admin Dose Admin Acetaminophen (Tylenol) 650 mg Q4H PRN ORAL fever 09/24/19 03:00 10/07/19 02:54 10/04/19 20:12 Amlodipine Besylate (Norvasc) 5 mg BID@0900,2100 NG 09/24/19 21:00 10/22/19 08:59 10/05/19 08:24 Docusate Sodium (Colace) 100 mg TWICE A DAY GT 10/04/19 09:00 11/03/19 08:59 10/05/19 08:23 Heparin Sodium (Porcine) (Heparin 5000 units/ml) 5,000 units EVERY 12 HOURS SUBQ 09/24/19 09:00 10/22/19 08:59 10/05/19 08:25 Lansoprazole (Prevacid) 30 mg DAILY GT 10/04/19 09:00 11/03/19 08:59 10/05/19 08:23 Levofloxacin (Levaquin) 750 mg DAILY ORAL 09/30/19 13:00 10/07/19 12:59 10/05/19 09:56 Levothyroxine Sodium (Synthroid) 75 mcg DAILY@0630 ORAL 09/24/19 06:30 10/07/19 08:29 10/05/19 05:53 Nitroglycerin (Ntg) 0.4 mg Q5M PRN SL Prn Chest Pain 09/24/19 02:30 10/07/19 04:29 Ondansetron HCl (Zofran) 4 mg Q6H PRN IVP Nausea & Vomiting 09/24/19 03:00 10/07/19 02:57 09/28/19 21:10 Polyethylene Glycol (Miralax) 17 gm DAILYPRN PRN ORAL Constipation 09/24/19 03:00 10/07/19 02:57 Promethazine HCl/ Codeine (Phenergan with Codeine) 5 ml Q4H PRN ORAL For Cough 09/24/19 03:00 10/07/19 02:58 Quetiapine Fumarate (SEROqueL) 25 mg Q8H PRN NG Agitation 09/24/19 02:35 10/30/19 02:34 09/30/19 03:10 Vancomycin HCl (Vanco rx to dose) 1 ea DAILY PRN MISC Per rx protocol 10/01/19 17:15 10/31/19 17:14 Vancomycin HCl 750 mg/Sodium Chloride 275 ml @ 183.333 mls/hr Q12HR@0800,1999 IVPB 10/03/19 20:00 10/08/19 19:59 10/05/19 08:22 Dainelle Roach M.D. Oct 05, 2019 11:20
--- NOTE | 2019-10-05 12:06 | Nephrology Progress Note ---
Assessment/Plan Problem List: (1) RAMAN (acute kidney injury) Assessment: Serum creatinine normalized with hydration (2) Dehydration (3) Suspected COVID-19 virus infection (4) Anemia (5) Sepsis (6) Diabetes mellitus (7) Hypothyroidism Assessment - Acute renal failure - Severe anemia - Sepsis, pneumonia, acute respiratory failure, suspected: Viewed 19 virus infection - Diabetes mellitus - Hypothyroidism - Feeding by G-tube - Squamous cell esophageal cancer - History of CVA (cerebrovascular accident) Plan Watch serum potassium Patient was coded early September 23 morning and back in ICU intubated Serum creatinine miguel to 1.5, now back to normal Stable from renal standpoint of view at this point He is status remains full code Tested negative for COVID-19 Previously: Pneumonia SARS-CoV neg x2 MRSA screen pos sp cx: PSA and proteus Changes Seroquel to "as needed" due to bradycardia Discontinue IV fluid Monitor renal parameters, serum creatinine Adjust electrolytes with supplements Increase Synthroid dose Avoid nephrotoxic's as possible Ventilator management Urine studies Per orders Subjective ROS Limited/Unobtainable: Yes Objective Objective Last 24 Hour Vital Signs Date Time Temp Pulse Resp B/P (MAP) Pulse Ox O2 Delivery O2 Flow Rate FiO2 10/05/19 11:07 82 18 40 10/05/19 11:00 77 20 116/57 (76) 100 10/05/19 10:00 83 19 129/55 (79) 96 10/05/19 09:00 82 19 122/42 (68) 90 10/05/19 08:56 82 10/05/19 08:24 82 122/58 10/05/19 08:00 40 10/05/19 08:00 98.8 81 17 122/58 (79) 99 10/05/19 08:00 Mechanical Ventilator 10/05/19 07:02 76 16 40 10/05/19 07:00 86 17 129/63 (85) 100 10/05/19 06:30 99 16 10/05/19 06:00 99 18 136/72 (93) 100 10/05/19 05:29 82 20 40 10/05/19 05:00 94 18 135/69 (91) 96 10/05/19 04:00 40 10/05/19 04:00 99.0 88 21 127/59 (81) 96 10/05/19 04:00 82 10/05/19 04:00 Mechanical Ventilator 10/05/19 03:30 85 22 40 10/05/19 03:00 87 20 139/70 (93) 98 10/05/19 02:00 75 18 124/51 (75) 100 10/05/19 01:30 80 18 40 10/05/19 01:00 77 16 129/59 (82) 100 10/05/19 00:00 98.0 81 18 130/65 (86) 100 10/05/19 00:00 40 10/05/19 00:00 78 10/05/19 00:00 Mechanical Ventilator 10/04/19 23:30 81 23 40 10/04/19 23:00 80 16 133/60 (84) 100 10/04/19 22:00 82 15 137/62 (87) 100 10/04/19 21:12 58 17 40 10/04/19 21:00 81 18 127/59 (81) 98 10/04/19 20:11 78 127/57 10/04/19 20:00 75 10/04/19 20:00 Mechanical Ventilator 10/04/19 20:00 40 10/04/19 20:00 98.5 78 15 127/57 (80) 100 10/04/19 19:30 84 15 40 10/04/19 19:00 74 17 129/56 (80) 100 10/04/19 18:00 77 17 119/52 (74) 100 10/04/19 17:08 79 16 40 10/04/19 17:00 98.8 79 16 126/51 (76) 100 10/04/19 16:00 40 10/04/19 16:00 81 10/04/19 16:00 81 17 123/58 (79) 95 10/04/19 16:00 Mechanical Ventilator 10/04/19 15:00 77 16 112/56 (74) 99 10/04/19 14:26 80 17 40 10/04/19 14:00 99.4 85 16 112/51 (71) 100 10/04/19 13:00 99.7 78 16 118/59 (78) 98 10/04/19 12:50 80 16 40 Intake and Output 10/04/19 10/05/19 19:00 07:00 Intake Total 1095.000 ml 965 ml Output Total 855 ml 780 ml Balance 240.000 ml 185 ml Intake Free Water 90 ml IV Total 275.000 ml 275 ml Tube Feeding 720 ml 600 ml Other 100 ml Output Urine Total 855 ml 780 ml Current Medications Medications (Trade) Dose Ordered Sig/Kike Route PRN Reason Start Time Stop Time Status Last Admin Dose Admin Acetaminophen (Tylenol) 650 mg Q4H PRN ORAL fever 09/24/19 03:00 10/07/19 02:54 10/04/19 20:12 Amlodipine Besylate (Norvasc) 5 mg BID@0900,2100 NG 09/24/19 21:00 10/22/19 08:59 10/05/19 08:24 Docusate Sodium (Colace) 100 mg TID GT 10/05/19 13:00 11/03/19 08:59 UNV Heparin Sodium (Porcine) (Heparin 5000 units/ml) 5,000 units EVERY 12 HOURS SUBQ 09/24/19 09:00 10/22/19 08:59 10/05/19 08:25 Lansoprazole (Prevacid) 30 mg DAILY GT 10/04/19 09:00 11/03/19 08:59 10/05/19 08:23 Levofloxacin (Levaquin) 750 mg DAILY ORAL 09/30/19 13:00 10/07/19 12:59 10/05/19 09:56 Levothyroxine Sodium (Synthroid) 75 mcg DAILY@0630 ORAL 09/24/19 06:30 10/07/19 08:29 10/05/19 05:53 Nitroglycerin (Ntg) 0.4 mg Q5M PRN SL Prn Chest Pain 09/24/19 02:30 10/07/19 04:29 Ondansetron HCl (Zofran) 4 mg Q6H PRN IVP Nausea & Vomiting 09/24/19 03:00 10/07/19 02:57 09/28/19 21:10 Polyethylene Glycol (Miralax) 17 gm DAILYPRN PRN ORAL Constipation 09/24/19 03:00 10/07/19 02:57 Promethazine HCl/ Codeine (Phenergan with Codeine) 5 ml Q4H PRN ORAL For Cough 09/24/19 03:00 10/07/19 02:58 Quetiapine Fumarate (SEROqueL) 25 mg Q8H PRN NG Agitation 09/24/19 02:35 10/30/19 02:34 09/30/19 03:10 Vancomycin HCl (Vanco rx to dose) 1 ea DAILY PRN MISC Per rx protocol 10/01/19 17:15 10/31/19 17:14 Vancomycin HCl 750 mg/Sodium Chloride 275 ml @ 183.333 mls/hr Q12HR@0800,2000 IVPB 10/03/19 20:00 10/08/19 19:59 10/05/19 08:22 Laboratory Tests 10/05/19 06:30: White Blood Count 12.8H, Red Blood Count 3.64L, Hemoglobin 9.5L, Hematocrit 29.4L, Mean Corpuscular Volume 81, Mean Corpuscular Hemoglobin 26.1L, Mean Corpuscular Hemoglobin Concent 32.2, Red Cell Distribution Width 17.4H, Platelet Count 504H, Mean Platelet Volume 4.9L, Neutrophils (%) (Auto) 74.6, Lymphocytes (%) (Auto) 16.3L, Monocytes (%) (Auto) 6.2, Eosinophils (%) (Auto) 2.5, Basophils (%) (Auto) 0.4, Sodium Level 136, Potassium Level 5.2H, Chloride Level 102, Carbon Dioxide Level 26, Anion Gap 8, Blood Urea Nitrogen 24H, Creatinine 1.1, Estimat Glomerular Filtration Rate > 60, Glucose Level 121H, Calcium Level 9.3, Vancomycin Level Trough 15.6H Height (Feet): 5 Height (Inches): 11.00 Weight (Pounds): 145 General Appearance: no apparent distress EENT: other Respiratory/Chest: decreased breath sounds - Intubated and vented Abdomen: distended Objective no change Clovis Benites MD Oct 05, 2019 12:06
--- NOTE | 2019-10-05 12:20 | Internal Med Progress Note ---
Subjective Date of Service: Oct 05, 2019 Physician Name Xander Bah Attending Physician Lamont Hayes MD Current Medications Medications (Trade) Dose Ordered Sig/Kike Route PRN Reason Start Time Stop Time Status Last Admin Dose Admin Acetaminophen (Tylenol) 650 mg Q4H PRN ORAL fever 09/24/19 03:00 10/07/19 02:54 10/04/19 20:12 Amlodipine Besylate (Norvasc) 5 mg BID@0900,2100 NG 09/24/19 21:00 10/22/19 08:59 10/05/19 08:24 Docusate Sodium (Colace) 100 mg TID GT 10/05/19 13:00 11/03/19 08:59 UNV Heparin Sodium (Porcine) (Heparin 5000 units/ml) 5,000 units EVERY 12 HOURS SUBQ 09/24/19 09:00 10/22/19 08:59 10/05/19 08:25 Lansoprazole (Prevacid) 30 mg DAILY GT 10/04/19 09:00 11/03/19 08:59 10/05/19 08:23 Levofloxacin (Levaquin) 750 mg DAILY ORAL 09/30/19 13:00 10/07/19 12:59 10/05/19 09:56 Levothyroxine Sodium (Synthroid) 75 mcg DAILY@0630 ORAL 09/24/19 06:30 10/07/19 08:29 10/05/19 05:53 Nitroglycerin (Ntg) 0.4 mg Q5M PRN SL Prn Chest Pain 09/24/19 02:30 10/07/19 04:29 Ondansetron HCl (Zofran) 4 mg Q6H PRN IVP Nausea & Vomiting 09/24/19 03:00 10/07/19 02:57 09/28/19 21:10 Polyethylene Glycol (Miralax) 17 gm DAILYPRN PRN ORAL Constipation 09/24/19 03:00 10/07/19 02:57 Promethazine HCl/ Codeine (Phenergan with Codeine) 5 ml Q4H PRN ORAL For Cough 09/24/19 03:00 10/07/19 02:58 Quetiapine Fumarate (SEROqueL) 25 mg Q8H PRN NG Agitation 09/24/19 02:35 10/30/19 02:34 09/30/19 03:10 Vancomycin HCl (Vanco rx to dose) 1 ea DAILY PRN MISC Per rx protocol 10/01/19 17:15 10/31/19 17:14 Vancomycin HCl 750 mg/Sodium Chloride 275 ml @ 183.333 mls/hr Q12HR@0800,2000 IVPB 10/03/19 20:00 10/08/19 19:59 10/05/19 08:22 Allergies: Coded Allergies: PENICILLINS (Verified Allergy, Unknown, 10/27/18) tolretas cephalosporins ROS Limited/Unobtainable: Yes Subjective 84 YO M admitted with cough and congestion. Cover for Int Med-Dr Hayes. Reintubated 09/24/19 after cardiopulmonary arrest-see code blue note. ICU Objective Last Vital Signs Date Time Temp Pulse Resp B/P (MAP) Pulse Ox O2 Delivery O2 Flow Rate FiO2 10/05/19 11:07 82 18 40 10/05/19 11:00 116/57 (76) 100 10/05/19 08:00 98.8 10/05/19 08:00 Mechanical Ventilator Laboratory Tests Test 10/05/19 06:30 White Blood Count 12.8 K/UL (4.8-10.8) H Red Blood Count 3.64 M/UL (4.70-6.10) L Hemoglobin 9.5 G/DL (14.2-18.0) L Hematocrit 29.4 % (42.0-52.0) L Mean Corpuscular Volume 81 FL (80-99) Mean Corpuscular Hemoglobin 26.1 PG (27.0-31.0) L Mean Corpuscular Hemoglobin Concent 32.2 G/DL (32.0-36.0) Red Cell Distribution Width 17.4 % (11.6-14.8) H Platelet Count 504 K/UL (150-450) H Mean Platelet Volume 4.9 FL (6.5-10.1) L Neutrophils (%) (Auto) 74.6 % (45.0-75.0) Lymphocytes (%) (Auto) 16.3 % (20.0-45.0) L Monocytes (%) (Auto) 6.2 % (1.0-10.0) Eosinophils (%) (Auto) 2.5 % (0.0-3.0) Basophils (%) (Auto) 0.4 % (0.0-2.0) Sodium Level 136 MMOL/L (136-145) Potassium Level 5.2 MMOL/L (3.5-5.1) H Chloride Level 102 MMOL/L (98-107) Carbon Dioxide Level 26 MMOL/L (21-32) Anion Gap 8 mmol/L (5-15) Blood Urea Nitrogen 24 mg/dL (7-18) H Creatinine 1.1 MG/DL (0.55-1.30) Estimat Glomerular Filtration Rate > 60 mL/min (>60) Glucose Level 121 MG/DL (74-106) H Calcium Level 9.3 MG/DL (8.5-10.1) Vancomycin Level Trough 15.6 ug/mL (5.0-12.0) H Microbiology Date/Time Source Procedure Growth Status 10/03/19 21:00 Sputum Gram Stain - Final Resulted 10/03/19 21:00 Sputum Culture - Preliminary Gram Negative Bacillus 1 Resulted 10/02/19 15:00 Urine,Clean Catch Urine Culture - Final Jennifer Albicans Complete Intake and Output 10/04/19 10/05/19 19:00 07:00 Intake Total 1095.000 ml 965 ml Output Total 855 ml 780 ml Balance 240.000 ml 185 ml Intake Free Water 90 ml IV Total 275.000 ml 275 ml Tube Feeding 720 ml 600 ml Other 100 ml Output Urine Total 855 ml 780 ml Objective PHYSICAL EXAMINATION: GENERAL: The patient is a thin-appearing male, in no apparent distress. HEENT: Eyes, pupils are equal and responsive to light and accommodation. Extraocular movements are intact. NECK: Supple without lymphadenopathy. CHEST: Mech vent; Lungs are clear to auscultation bilaterally with decreased breath sounds on the right. There are no wheezes appreciated. ABDOMEN: Soft, nontender, and nondistended. Positive bowel sounds. No evidence of hepatosplenomegaly. Currently, no rebound or guarding noted. EXTREMITIES: Negative for clubbing, cyanosis, or edema. RECTAL/GENITAL: Not performed. NEUROLOGIC: Cranial nerves II through XII are grossly intact without focal deficits. Assessment/Plan Assessment/Plan ASSESSMENT: This is an 84-year-old male with: 1. right pneumonia=pseudamonas 2. Urinary tract infection=jennifer 3. Right pleural effusion. 4. Esophageal mass. 5. Dysphagia. 6. Diabetes. 7. Alzheimer's dementia. 8. Cerebrovascular disease. 9. Hypothyroidism. 10. Seizure disorder. 11. Iron deficiency anemia. 13. Respiratory failure 14. S/P cardiopulmonary arrest 15. Anemia TREATMENT: 1. Right perihilar Pneumonia/pleural effusion. COVID 19 and Influenza negative. A Pulmonary consultation has been obtained with Dr. Vania Hui. S/P right thoracentesis 09/19/19. We will follow recommendation of Pulmonary. ID=Dr Roach ABX= levofloxacin and vanco per ID 2. Urinary tract infection. . A urine culture =jennifer 3. Right pleural effusion. As above, a Pulmonary consultation has been obtained with Dr. Vania Hui. The patient may require thoracentesis during this hospitalization. 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 A Gastroenterology consultation has been obtained with Dr. Darrick Rosario. 5. Dysphagia. The patient is status post PEG placement on 08/08/[address] [facility] by Dr. Darrick Rosario. 6. Diabetes type 2. A NovoLog sliding scale has been instituted. 7. Alzheimer's dementia. 8. Cerebrovascular disease, status post cerebrovascular accident. 9. Hypothyroidism. Continue levothyroxine as above. 10. Seizure disorder. 11. Iron deficiency anemia. 12. reintubated 09/24/19-see code blue note 13. S/P transfusion 2 units PRBC Xander Bah MD Oct 05, 2019 12:20
--- NOTE | 2019-10-05 16:02 | Surgery Progress Note ---
Surgery Progress Note Subjective Additional Comments labs noted exam unchanged will appearing not weaning Objective Last 24 Hour Vital Signs Date Time Temp Pulse Resp B/P (MAP) Pulse Ox O2 Delivery O2 Flow Rate FiO2 10/05/19 15:00 82 17 122/49 (73) 94 10/05/19 14:00 85 17 116/54 (74) 93 10/05/19 13:00 83 20 116/56 (76) 94 10/05/19 12:00 40 10/05/19 12:00 98.2 81 17 116/59 (78) 93 10/05/19 12:00 Mechanical Ventilator 10/05/19 11:50 83 10/05/19 11:07 82 18 40 10/05/19 11:00 77 20 116/57 (76) 100 10/05/19 10:00 83 19 129/55 (79) 96 10/05/19 09:00 82 19 122/42 (68) 90 10/05/19 08:56 82 10/05/19 08:24 82 122/58 10/05/19 08:00 40 10/05/19 08:00 98.8 81 17 122/58 (79) 99 10/05/19 08:00 Mechanical Ventilator 10/05/19 07:02 76 16 40 10/05/19 07:00 86 17 129/63 (85) 100 10/05/19 06:30 99 16 10/05/19 06:00 99 18 136/72 (93) 100 10/05/19 05:29 82 20 40 10/05/19 05:00 94 18 135/69 (91) 96 10/05/19 04:00 40 10/05/19 04:00 99.0 88 21 127/59 (81) 96 10/05/19 04:00 82 10/05/19 04:00 Mechanical Ventilator 10/05/19 03:30 85 22 40 10/05/19 03:00 87 20 139/70 (93) 98 10/05/19 02:00 75 18 124/51 (75) 100 10/05/19 01:30 80 18 40 10/05/19 01:00 77 16 129/59 (82) 100 10/05/19 00:00 98.0 81 18 130/65 (86) 100 10/05/19 00:00 40 10/05/19 00:00 78 10/05/19 00:00 Mechanical Ventilator 10/04/19 23:30 81 23 40 10/04/19 23:00 80 16 133/60 (84) 100 10/04/19 22:00 82 15 137/62 (87) 100 10/04/19 21:12 58 17 40 10/04/19 21:00 81 18 127/59 (81) 98 10/04/19 20:11 78 127/57 10/04/19 20:00 75 10/04/19 20:00 Mechanical Ventilator 10/04/19 20:00 40 10/04/19 20:00 98.5 78 15 127/57 (80) 100 10/04/19 19:30 84 15 40 10/04/19 19:00 74 17 129/56 (80) 100 10/04/19 18:00 77 17 119/52 (74) 100 10/04/19 17:08 79 16 40 10/04/19 17:00 98.8 79 16 126/51 (76) 100 I&O Intake and Output 10/04/19 10/05/19 19:00 07:00 Intake Total 1095.000 ml 965 ml Output Total 855 ml 780 ml Balance 240.000 ml 185 ml Intake Free Water 90 ml IV Total 275.000 ml 275 ml Tube Feeding 720 ml 600 ml Other 100 ml Output Urine Total 855 ml 780 ml Dressing: other Wound: other Drains: other Cardiovascular: RSR Respiratory: decreased breath sounds Abdomen: soft, non-tender, present bowel sounds Extremities: no cyanosis Laboratory Tests Test 10/05/19 06:30 White Blood Count 12.8 K/UL (4.8-10.8) H Red Blood Count 3.64 M/UL (4.70-6.10) L Hemoglobin 9.5 G/DL (14.2-18.0) L Hematocrit 29.4 % (42.0-52.0) L Mean Corpuscular Volume 81 FL (80-99) Mean Corpuscular Hemoglobin 26.1 PG (27.0-31.0) L Mean Corpuscular Hemoglobin Concent 32.2 G/DL (32.0-36.0) Red Cell Distribution Width 17.4 % (11.6-14.8) H Platelet Count 504 K/UL (150-450) H Mean Platelet Volume 4.9 FL (6.5-10.1) L Neutrophils (%) (Auto) 74.6 % (45.0-75.0) Lymphocytes (%) (Auto) 16.3 % (20.0-45.0) L Monocytes (%) (Auto) 6.2 % (1.0-10.0) Eosinophils (%) (Auto) 2.5 % (0.0-3.0) Basophils (%) (Auto) 0.4 % (0.0-2.0) Sodium Level 136 MMOL/L (136-145) Potassium Level 5.2 MMOL/L (3.5-5.1) H Chloride Level 102 MMOL/L (98-107) Carbon Dioxide Level 26 MMOL/L (21-32) Anion Gap 8 mmol/L (5-15) Blood Urea Nitrogen 24 mg/dL (7-18) H Creatinine 1.1 MG/DL (0.55-1.30) Estimat Glomerular Filtration Rate > 60 mL/min (>60) Glucose Level 121 MG/DL (74-106) H Calcium Level 9.3 MG/DL (8.5-10.1) Vancomycin Level Trough 15.6 ug/mL (5.0-12.0) H Plan Problems: (1) UTI (urinary tract infection) (2) Acute respiratory failure Assessment & Plan: There is infiltrate suspected in the right perihilar region obscuring the right hilum. There is a hazy opacity that may partially be accounted for by pleural fluid on the right. Reticular densities are present on the left in the perihilar aspect of the lung. Endotracheal tube is in good position just above the anselmo. Heart size is normal. IMPRESSION: Suspected perihilar airspace disease in the right lung suspicious for pneumonia. Reticular nodular infiltrate in the left lung noted also. Right pleural effusion suspected. Endotracheal tube in good position cont vents support Lungs: Similar bilateral interstitial prominence, greater on the right. Stable right perihilar, mid and lower lung opacities. Similar left lung base opacity. Pleural space: Small left pleural effusion is stable. Loculated right pleural effusion is stable. No pneumothorax. Heart: Unremarkable. No cardiomegaly. Mediastinum: Unremarkable. Bones/joints: Unremarkable. Tubes, lines and devices: Endotracheal tube has been pulled back and is 10 cm above the anselmo near the thoracic inlet. IMPRESSION: Endotracheal tube has been pulled back and is 10 cm above the anselmo near the thoracic inlet. Remainder findings are stable. may need thoracentesis soon Moderate size right pleural effusion with right upper and lower lobe atelectasis/consolidation, as well as mild pulmonary edema.. 1. Patchy opacities throughout the right lung left mid and lower lung, similar to slightly increased. Possible small bilateral pleural effusions. 2. Endotracheal tube terminates in the region of the lower thoracic trachea above the anselmo. consider trach (3) Sepsis Assessment & Plan: Pt cachetic and presented on admission with multiple pressure injuries. Partial thickness pressure injury Cleft of L ear(L)1.2cm x (W)0.4cm. Base of wound moist and viable with small amt sanguineous exudate. Partial thickness pressure injury cleft of R ear(L)0.5cm x (W)0.7cm. Base of wound moist and viable Periwound erythematous.Small amt sanguineous exudate noted. Sacral DTPI(L)5cm x (W)10.5cm. Base of injury is purple with maroon borders. Coccygeal bony protrusion with darker skin tone, and small opening noted to R gluteus (L)0.5cm x (W)0.5cm within base of injury. No further skin breakdown periwound. Intact blood blister noted to R 1st metatarsal head(L)1.1cm x (W)2.5cm. DTPI noted to L heel extending into plantar aspect. Base of injury presents as an intact blood filled blister. Periwound is boggy with non-blanching erythema. R heel is boggy but blanchable. wounds unlikely etiology of sepsis respiratory but given current condition high risk for breakdown and worsening will monitor closely discussed with RN and staff great care being provided coded acls intubated in ICU prognosis guarded Tx.Plan: Apply Betadine to clefts of R and L ears. Pad oxygen tubing with gauze and keep oxygen tubing loose. Apply Moisture Barrier Paste to Sacrum. Cover with Optifoam drsg. Change every 3 days and prn. Apply Betadine to L heel. Cover with Optifoam drsg. Change every 3 days and prn. Apply Betadine to R 1st metatarsal head. Cover with Optifoam drsg. Change every 3 days and prn. Apply Cavilon Skin Barrier R heel. Cover with Optifoam drsg. Change every 7 days and prn. Reposition at least every 2hours or as tolerated. Off-load heels with pillow. on air mattress but not very comfortable appearing cont current care / pulm management (4) Severe anemia (5) Nosocomial pneumonia (6) Atrial fibrillation (7) Acute metabolic encephalopathy (8) History of CVA (cerebrovascular accident) (9) Diabetes mellitus (10) Hypothyroidism (11) Alzheimer's dementia (12) PVC (premature ventricular contraction) (13) Hypertension (14) Squamous cell esophageal cancer (15) Feeding by G-tube (16) Dehydration (17) Anemia (18) Severe malnutrition Assessment & Plan: DAILY ESTIMATED NEEDS: Needs based on underweight, suspected wt loss, wounds/ 63kg 25-33 kcals/kg 5390-3185 total kcals 1.25-2 g protein/kg 78-126 g total protein 25-30 mL/kg 7421-1669 total fluid mLs NUTRITION DIAGNOSIS: * Swallowing difficulty R/T dysphagia w/ h/o CVA as evidenced by now s/p recent PEG placement (08/08/19), on GT feeds, held at time, s/p code blue (09/07), orally intubated, now extubated. * Increased kcal/prot intake needs R/T suspected significant wt loss and underweight status, wounds as evidenced by 10lbs/6.7% wt loss in 1 month, 76% IBW w/ BMI of 18.4, admitted w/ DTPI wound @ sacrum, Lt heel, partial thickness pressure injury cleft of R L ear. CURRENT TF:Osmolite 1.2 @ 60ml/hr x 22 hrs ENTERAL NUTRITION RECOMMENDATIONS: Osmolite 1.2 @ 60ml/hr x 22 hrs + Prosource x 1 to provide 1320ml, 1584kcal, 73g +11g prot, 1082ml free water - Add Prosource x 1 to meet protein needs - HOLD 1 hr before and after synthroid meds. add Prosource 1 pack daily to better meet est pro needs - Flush per MD/ HOB over 30 degrees WITH ELEV BG, rec TF change to Glucerna 1.2 w/ a goal of 60ml/hr x22 hrs to provide 1320ml, 1584kcal, 79g prot ADDITIONAL RECOMMENDATIONS: * PER SNF: HT=6'1" WT= 139lbs ("August weight" from SNF) -> calibrated bedscale wt * Monitor K, need for TF change (K 5.9 upon adm, now wnl) * Wound care: add Vit C 500mg QD + Wesley 1pkt BID via PEG * Monitor BGs, need for NISS: h/o DM per MD (checking A1C not suggested given low hgb) (19) Encounter for PEG (percutaneous endoscopic gastrostomy) (20) At high risk for aspiration (21) Pleural effusion (22) Suspected COVID-19 virus infection Jan Mora Oct 05, 2019 16:02
[2019-10-06] VITALS (24 sets, daily range): BP systolic 105–153; BP diastolic 47–69
[2019-10-06 05:57] LABS: BASOPHILS % (AUTO) 0.8 % (0.0-2.0); EOSINOPHILS % (AUTO) 3.6 % (0.0-3.0); HEMATOCRIT 26.8 % (42.0-52.0); HEMOGLOBIN 8.6 G/DL (14.2-18.0); LYMPHOCYTES % (AUTO) 12.7 % (20.0-45.0); MEAN CORPUSCULAR VOLUME 82 FL (80-99); MONOCYTES % (AUTO) 5.6 % (1.0-10.0); NEUTROPHILS % (AUTO) 77.3 % (45.0-75.0); PLATELET COUNT 391 K/UL (150-450); RED BLOOD COUNT 3.28 M/UL (4.70-6.10); RED CELL DISTRIBUTION WIDTH 17.3 % (11.6-14.8); WHITE BLOOD COUNT 12.2 K/UL (4.8-10.8)
[2019-10-06 06:27] LABS: PHOSPHORUS 3.5 MG/DL (2.5-4.9)
[2019-10-06 07:05] LABS: ALANINE AMINOTRANSFERASE 53 U/L (12-78); ALBUMIN 1.5 G/DL (3.4-5.0); ALBUMIN/GLOBULIN RATIO 0.3 (1.0-2.7); ALKALINE PHOSPHATASE 224 U/L (46-116); ANION GAP 8 mmol/L (5-15); ASPARTATE AMINO TRANSFERASE 69 U/L (15-37); BILIRUBIN,TOTAL 0.2 MG/DL (0.2-1.0); BLOOD UREA NITROGEN 24 mg/dL (7-18); CALCIUM 8.5 MG/DL (8.5-10.1); CARBON DIOXIDE 26 MMOL/L (21-32); CHLORIDE 104 MMOL/L (98-107); CREATININE 0.9 MG/DL (0.55-1.30); POTASSIUM 4.5 MMOL/L (3.5-5.1); SODIUM 137 MMOL/L (136-145)
[2019-10-06] MEDS: Heparin 5000 units/ml inj SUBQ SCH ×2 (08:19→20:44)
[2019-10-06] MEDS: Docusate 100mg/10ml Liq GT SCH ×3 (08:20→17:08)
[2019-10-06] MEDS: Vancomycin 750 MG in NS 275 ML IVPB SCH (08:20)
[2019-10-06] MEDS: Levofloxacin 750mg tab ORAL SCH (08:20)
--- NOTE | 2019-10-06 09:55 | Diagnostic Imaging Report ---
Indication: Dyspnea Technique: One view of the chest Comparison: 10/04/2019 Findings: Right mid and lower lung opacity, likely combination of pleural fluid and consolidation, appears similar or perhaps slightly improved. Left basilar hazy opacity persists. The left hemidiaphragm is obscured, may reflect increasing pleural fluid. Heart size is normal. Stable satisfactory position of endotracheal tube Impression: Right mid and lower lung opacity, likely combination of pleural fluid and parenchymal consolidation, appearing slightly improved over 2 days. Obscured left hemidiaphragm, may reflect increasing pleural fluid on the left.
--- NOTE | 2019-10-06 10:06 | General Progress Note ---
Assessment/Plan Status: unchanged Assessment/Plan: 1. Esophageal cancer. 2. Dysphagia. 3. Diabetes type 2. 4. Dementia. 5. CVA. 6. Hypothyroidism. 7. Seizure disorder. 8. Iron deficiency anemia. 9. Respiratory failure. 10. Dysphagia with G-tube stable H&H GT has been changed and working well GT flushes dietitian in put appreciated>>> will change TF to Javity add subhash abx per id pulm care bowel regimen recent labs and notes reviewed D/W the nurse will fu Subjective ROS Limited/Unobtainable: No Allergies: Coded Allergies: PENICILLINS (Verified Allergy, Unknown, 10/27/18) tolretas cephalosporins Objective Last 24 Hour Vital Signs Date Time Temp Pulse Resp B/P (MAP) Pulse Ox O2 Delivery O2 Flow Rate FiO2 10/06/19 09:00 81 32 138/57 (84) 100 10/06/19 08:53 83 35 40 10/06/19 08:50 80 13 40 10/06/19 08:19 85 165/67 10/06/19 08:00 40 10/06/19 08:00 98.7 81 15 153/64 (93) 100 10/06/19 08:00 80 10/06/19 08:00 Mechanical Ventilator 10/06/19 07:05 85 24 40 10/06/19 07:00 83 19 127/67 (87) 100 10/06/19 06:30 85 23 10/06/19 06:00 85 23 129/66 (87) 100 10/06/19 05:11 81 17 40 10/06/19 05:00 80 19 125/65 (85) 94 10/06/19 04:00 40 10/06/19 04:00 Mechanical Ventilator 10/06/19 04:00 82 10/06/19 04:00 99.1 82 20 114/54 (74) 97 10/06/19 03:09 79 14 40 10/06/19 03:00 81 17 126/63 (84) 100 10/06/19 02:00 79 15 120/52 (74) 95 10/06/19 01:21 77 15 40 10/06/19 01:00 78 13 113/47 (69) 100 10/06/19 00:00 Mechanical Ventilator 10/06/19 00:00 98.9 78 16 118/49 (72) 92 10/05/19 23:16 79 14 40 10/05/19 23:00 83 16 107/50 (69) 100 10/05/19 22:00 82 14 107/53 (71) 99 10/05/19 21:47 83 15 40 10/05/19 21:00 82 17 121/47 (71) 98 10/05/19 20:39 82 110/56 10/05/19 20:00 98.8 85 17 110/56 (74) 100 10/05/19 20:00 82 10/05/19 20:00 40 10/05/19 20:00 Mechanical Ventilator 10/05/19 19:41 88 16 40 10/05/19 19:00 83 14 103/53 (70) 100 10/05/19 18:00 91 20 129/53 (78) 63 10/05/19 17:00 82 16 122/56 (78) 93 10/05/19 16:00 Mechanical Ventilator 10/05/19 16:00 40 10/05/19 16:00 81 10/05/19 16:00 99.0 80 19 110/50 (70) 88 10/05/19 15:00 82 17 122/49 (73) 94 10/05/19 14:39 84 15 40 10/05/19 14:00 85 17 116/54 (74) 93 10/05/19 13:00 83 20 116/56 (76) 94 10/05/19 12:00 40 10/05/19 12:00 98.2 81 17 116/59 (78) 93 10/05/19 12:00 Mechanical Ventilator 10/05/19 11:50 83 10/05/19 11:07 82 18 40 10/05/19 11:00 77 20 116/57 (76) 100 Intake and Output 10/05/19 10/06/19 19:00 07:00 Intake Total 1185.000 ml 1235 ml Output Total 495 ml 840 ml Balance 690.000 ml 395 ml Intake Free Water 90 ml 240 ml IV Total 275.000 ml 275 ml Tube Feeding 720 ml 720 ml Other 100 ml Output Urine Total 495 ml 840 ml Laboratory Tests 10/06/19 05:30: White Blood Count 12.2H, Red Blood Count 3.28L, Hemoglobin 8.6L, Hematocrit 26.8L, Mean Corpuscular Volume 82, Mean Corpuscular Hemoglobin 26.3L, Mean Corpuscular Hemoglobin Concent 32.2, Red Cell Distribution Width 17.3H, Platelet Count 391, Mean Platelet Volume 4.9L, Neutrophils (%) (Auto) 77.3H, Lymphocytes (%) (Auto) 12.7L, Monocytes (%) (Auto) 5.6, Eosinophils (%) (Auto) 3.6H, Basophils (%) (Auto) 0.8, Sodium Level 137, Potassium Level 4.5, Chloride Level 104, Carbon Dioxide Level 26, Anion Gap 8, Blood Urea Nitrogen 24H, Creatinine 0.9, Estimat Glomerular Filtration Rate > 60, Glucose Level 145H, Calcium Level 8.5, Phosphorus Level 3.5, Magnesium Level 2.0, Total Bilirubin 0.2, Aspartate Amino Transf (AST/SGOT) 69H, Alanine Aminotransferase (ALT/SGPT) 53, Alkaline Phosphatase 224H, C-Reactive Protein, Quantitative 16.4H, Pro-B- Type Natriuretic Peptide 302H, Total Protein 6.4, Albumin 1.5L, Globulin 4.9, Albumin/Globulin Ratio 0.3L, Thyroid Stimulating Hormone (TSH) 8.136H Height (Feet): 5 Height (Inches): 11.00 Weight (Pounds): 146 General Appearance: lethargic EENT: normal ENT inspection Neck: supple Cardiovascular: normal rate Respiratory/Chest: decreased breath sounds Abdomen: normal bowel sounds, non tender, soft Extremities: non-tender Darrick Rosario MD Oct 06, 2019 10:06
[2019-10-06] MEDS ORDERED: Sennosides 8.6mg tab ORAL PRN (10:15)
--- NOTE | 2019-10-06 10:24 | Pulmonolgy Critical Care Note ---
Critical Care - Asmt/Plan Problems: (1) Acute respiratory failure Assessment & Plan: got reintubated (2) Pleural effusion Assessment & Plan: s/p thoracentesis times 2 (3) Nosocomial pneumonia (4) Sepsis (5) Squamous cell esophageal cancer (6) Diabetes mellitus (7) Severe malnutrition (8) Alzheimer's dementia (9) History of CVA (cerebrovascular accident) (10) Feeding by G-tube Respiratory: monitor respiratory rate, adjust FIO2, CXR Cardiac: continue pressors, continue to monitor HR/BP Renal: F/U I&O Infectious Disease: check cultures, continue antibiotics Gastrointestinal: continue feedings/current rate Endocrine: monitor blood sugar, continue sliding scale insulin Hematologic: monitor H/H, transfuse if hgb<8.5 Neurologic: PRN Ativan, keep patient comfortable Affect: PRN ativan Time Spent (Minutes): 40 Notes Reviewed: car shunter, 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 with: nurses, consultants, behavioral health case manager, other - awaiting family decision about plan of care. Critical Care - Objective Last 24 Hour Vital Signs Date Time Temp Pulse Resp B/P (MAP) Pulse Ox O2 Delivery O2 Flow Rate FiO2 10/06/19 10:14 100 10/06/19 09:00 81 32 138/57 (84) 100 10/06/19 08:53 83 35 40 10/06/19 08:50 80 13 40 10/06/19 08:19 85 165/67 10/06/19 08:00 40 10/06/19 08:00 98.7 81 15 153/64 (93) 100 10/06/19 08:00 80 10/06/19 08:00 Mechanical Ventilator 10/06/19 07:05 85 24 40 10/06/19 07:00 83 19 127/67 (87) 100 10/06/19 06:30 85 23 10/06/19 06:00 85 23 129/66 (87) 100 10/06/19 05:11 81 17 40 10/06/19 05:00 80 19 125/65 (85) 94 10/06/19 04:00 40 10/06/19 04:00 Mechanical Ventilator 10/06/19 04:00 82 10/06/19 04:00 99.1 82 20 114/54 (74) 97 10/06/19 03:09 79 14 40 10/06/19 03:00 81 17 126/63 (84) 100 10/06/19 02:00 79 15 120/52 (74) 95 10/06/19 01:21 77 15 40 10/06/19 01:00 78 13 113/47 (69) 100 10/06/19 00:00 Mechanical Ventilator 10/06/19 00:00 98.9 78 16 118/49 (72) 92 10/05/19 23:16 79 14 40 10/05/19 23:00 83 16 107/50 (69) 100 10/05/19 22:00 82 14 107/53 (71) 99 10/05/19 21:47 83 15 40 10/05/19 21:00 82 17 121/47 (71) 98 10/05/19 20:39 82 110/56 10/05/19 20:00 98.8 85 17 110/56 (74) 100 10/05/19 20:00 82 10/05/19 20:00 40 10/05/19 20:00 Mechanical Ventilator 10/05/19 19:41 88 16 40 10/05/19 19:00 83 14 103/53 (70) 100 10/05/19 18:00 91 20 129/53 (78) 63 10/05/19 17:00 82 16 122/56 (78) 93 10/05/19 16:00 Mechanical Ventilator 10/05/19 16:00 40 10/05/19 16:00 81 10/05/19 16:00 99.0 80 19 110/50 (70) 88 10/05/19 15:00 82 17 122/49 (73) 94 10/05/19 14:39 84 15 40 10/05/19 14:00 85 17 116/54 (74) 93 10/05/19 13:00 83 20 116/56 (76) 94 10/05/19 12:00 40 10/05/19 12:00 98.2 81 17 116/59 (78) 93 10/05/19 12:00 Mechanical Ventilator 10/05/19 11:50 83 10/05/19 11:07 82 18 40 10/05/19 11:00 77 20 116/57 (76) 100 Status: obtunded Condition: critical Lungs: chest wall tender Heart: HR/BP stable Abdomen: soft, feeding tube Micro: Microbiology Date/Time Source Procedure Growth Status 10/03/19 21:00 Sputum Gram Stain - Final Resulted 10/03/19 21:00 Sputum Culture - Preliminary Gram Negative Bacillus 1 Gram Negative Bacillus 2 Resulted Critical Care - Subjective ROS Limited/Unobtainable: Yes Condition: critical EKG Rhythm: Sinus Rhythm FI02: 40 Vent Support Breath Rate: 12 Vent Support Mode: AC Vent Tidal Volume: 550 Sputum Amount: Small PEEP: 8.0 PIP: 24 Tube Feeding Amount: 60 I&O: Intake and Output 10/05/19 10/06/19 19:00 07:00 Intake Total 1185.000 ml 1235 ml Output Total 495 ml 840 ml Balance 690.000 ml 395 ml Intake Free Water 90 ml 240 ml IV Total 275.000 ml 275 ml Tube Feeding 720 ml 720 ml Other 100 ml Output Urine Total 495 ml 840 ml CXR: increasing right effusion ET-Tube: 7.5 ET Position: 26 Labs: Laboratory Tests Test 10/06/19 05:30 10/06/19 09:55 White Blood Count 12.2 K/UL (4.8-10.8) H Red Blood Count 3.28 M/UL (4.70-6.10) L Hemoglobin 8.6 G/DL (14.2-18.0) L Hematocrit 26.8 % (42.0-52.0) L Mean Corpuscular Volume 82 FL (80-99) Mean Corpuscular Hemoglobin 26.3 PG (27.0-31.0) L Mean Corpuscular Hemoglobin Concent 32.2 G/DL (32.0-36.0) Red Cell Distribution Width 17.3 % (11.6-14.8) H Platelet Count 391 K/UL (150-450) Mean Platelet Volume 4.9 FL (6.5-10.1) L Neutrophils (%) (Auto) 77.3 % (45.0-75.0) H Lymphocytes (%) (Auto) 12.7 % (20.0-45.0) L Monocytes (%) (Auto) 5.6 % (1.0-10.0) Eosinophils (%) (Auto) 3.6 % (0.0-3.0) H Basophils (%) (Auto) 0.8 % (0.0-2.0) Sodium Level 137 MMOL/L (136-145) Potassium Level 4.5 MMOL/L (3.5-5.1) Chloride Level 104 MMOL/L (98-107) Carbon Dioxide Level 26 MMOL/L (21-32) Anion Gap 8 mmol/L (5-15) Blood Urea Nitrogen 24 mg/dL (7-18) H Creatinine 0.9 MG/DL (0.55-1.30) Estimat Glomerular Filtration Rate > 60 mL/min (>60) Glucose Level 145 MG/DL (74-106) H Calcium Level 8.5 MG/DL (8.5-10.1) Phosphorus Level 3.5 MG/DL (2.5-4.9) Magnesium Level 2.0 MG/DL (1.8-2.4) Total Bilirubin 0.2 MG/DL (0.2-1.0) Aspartate Amino Transf (AST/SGOT) 69 U/L (15-37) H Alanine Aminotransferase (ALT/SGPT) 53 U/L (12-78) Alkaline Phosphatase 224 U/L (46-116) H C-Reactive Protein, Quantitative 16.4 mg/dL (0.00-0.90) H Pro-B-Type Natriuretic Peptide 302 pg/mL (0-125) H Total Protein 6.4 G/DL (6.4-8.2) Albumin 1.5 G/DL (3.4-5.0) L Globulin 4.9 g/dL Albumin/Globulin Ratio 0.3 (1.0-2.7) L Thyroid Stimulating Hormone (TSH) 8.136 uiU/mL (0.358-3.740) Arterial Blood pH 7.405 (7.350-7.450) Arterial Blood Partial Pressure CO2 37.7 mmHg (35.0-45.0) Arterial Blood Partial Pressure O2 60.6 mmHg (75.0-100.0) L Arterial Blood HCO3 23.1 mmol/L (22.0-26.0) Arterial Blood Oxygen Saturation 89.0 % (95-100) *L Arterial Blood Base Excess -1.4 (-2-2) Watson Test Positive Vania Hui MD Oct 06, 2019 10:24
--- NOTE | 2019-10-06 10:44 | Nephrology Progress Note ---
Assessment/Plan Problem List: (1) RAMAN (acute kidney injury) Assessment: Serum creatinine normalized with hydration (2) Dehydration (3) Suspected COVID-19 virus infection (4) Anemia (5) Sepsis (6) Diabetes mellitus (7) Hypothyroidism Assessment - Acute renal failure - Severe anemia - Sepsis, pneumonia, acute respiratory failure, suspected: Viewed 19 virus infection - Diabetes mellitus - Hypothyroidism - Feeding by G-tube - Squamous cell esophageal cancer - History of CVA (cerebrovascular accident) Plan Discussed with KAI Marroquin Weaning trial is being attempted Main stable from renal standpoint of view Previously Patient was coded early September 23 morning and back in ICU intubated Serum creatinine miguel to 1.5, now back to normal Stable from renal standpoint of view at this point He is status remains full code Tested negative for COVID-19 Previously: Pneumonia SARS-CoV neg x2 MRSA screen pos sp cx: PSA and proteus Changes Seroquel to "as needed" due to bradycardia Discontinue IV fluid Monitor renal parameters, serum creatinine Adjust electrolytes with supplements Increase Synthroid dose Avoid nephrotoxic's as possible Ventilator management Urine studies Per orders Subjective ROS Limited/Unobtainable: Yes Objective Objective Last 24 Hour Vital Signs Date Time Temp Pulse Resp B/P (MAP) Pulse Ox O2 Delivery O2 Flow Rate FiO2 10/06/19 10:14 100 10/06/19 10:10 89 15 40 10/06/19 09:00 81 32 138/57 (84) 100 10/06/19 08:53 83 35 40 10/06/19 08:50 80 13 40 10/06/19 08:19 85 165/67 10/06/19 08:00 40 10/06/19 08:00 98.7 81 15 153/64 (93) 100 10/06/19 08:00 80 10/06/19 08:00 Mechanical Ventilator 10/06/19 07:05 85 24 40 10/06/19 07:00 83 19 127/67 (87) 100 10/06/19 06:30 85 23 10/06/19 06:00 85 23 129/66 (87) 100 10/06/19 05:11 81 17 40 10/06/19 05:00 80 19 125/65 (85) 94 10/06/19 04:00 40 10/06/19 04:00 Mechanical Ventilator 10/06/19 04:00 82 10/06/19 04:00 99.1 82 20 114/54 (74) 97 10/06/19 03:09 79 14 40 10/06/19 03:00 81 17 126/63 (84) 100 10/06/19 02:00 79 15 120/52 (74) 95 10/06/19 01:21 77 15 40 10/06/19 01:00 78 13 113/47 (69) 100 10/06/19 00:00 Mechanical Ventilator 10/06/19 00:00 98.9 78 16 118/49 (72) 92 10/05/19 23:16 79 14 40 10/05/19 23:00 83 16 107/50 (69) 100 10/05/19 22:00 82 14 107/53 (71) 99 10/05/19 21:47 83 15 40 10/05/19 21:00 82 17 121/47 (71) 98 10/05/19 20:39 82 110/56 10/05/19 20:00 98.8 85 17 110/56 (74) 100 10/05/19 20:00 82 10/05/19 20:00 40 10/05/19 20:00 Mechanical Ventilator 10/05/19 19:41 88 16 40 10/05/19 19:00 83 14 103/53 (70) 100 10/05/19 18:00 91 20 129/53 (78) 63 10/05/19 17:00 82 16 122/56 (78) 93 10/05/19 16:00 Mechanical Ventilator 10/05/19 16:00 40 10/05/19 16:00 81 10/05/19 16:00 99.0 80 19 110/50 (70) 88 10/05/19 15:00 82 17 122/49 (73) 94 10/05/19 14:39 84 15 40 10/05/19 14:00 85 17 116/54 (74) 93 10/05/19 13:00 83 20 116/56 (76) 94 10/05/19 12:00 40 10/05/19 12:00 98.2 81 17 116/59 (78) 93 10/05/19 12:00 Mechanical Ventilator 10/05/19 11:50 83 10/05/19 11:07 82 18 40 10/05/19 11:00 77 20 116/57 (76) 100 Intake and Output 10/05/19 10/06/19 19:00 07:00 Intake Total 1185.000 ml 1235 ml Output Total 495 ml 840 ml Balance 690.000 ml 395 ml Intake Free Water 90 ml 240 ml IV Total 275.000 ml 275 ml Tube Feeding 720 ml 720 ml Other 100 ml Output Urine Total 495 ml 840 ml Laboratory Tests 10/06/19 05:30: White Blood Count 12.2H, Red Blood Count 3.28L, Hemoglobin 8.6L, Hematocrit 26.8L, Mean Corpuscular Volume 82, Mean Corpuscular Hemoglobin 26.3L, Mean Corpuscular Hemoglobin Concent 32.2, Red Cell Distribution Width 17.3H, Platelet Count 391, Mean Platelet Volume 4.9L, Neutrophils (%) (Auto) 77.3H, Lymphocytes (%) (Auto) 12.7L, Monocytes (%) (Auto) 5.6, Eosinophils (%) (Auto) 3.6H, Basophils (%) (Auto) 0.8, Sodium Level 137, Potassium Level 4.5, Chloride Level 104, Carbon Dioxide Level 26, Anion Gap 8, Blood Urea Nitrogen 24H, Creatinine 0.9, Estimat Glomerular Filtration Rate > 60, Glucose Level 145H, Calcium Level 8.5, Phosphorus Level 3.5, Magnesium Level 2.0, Total Bilirubin 0.2, Aspartate Amino Transf (AST/SGOT) 69H, Alanine Aminotransferase (ALT/SGPT) 53, Alkaline Phosphatase 224H, C-Reactive Protein, Quantitative 16.4H, Pro-B- Type Natriuretic Peptide 302H, Total Protein 6.4, Albumin 1.5L, Globulin 4.9, Albumin/Globulin Ratio 0.3L, Thyroid Stimulating Hormone (TSH) 8.136H 10/06/19 09:55: Arterial Blood pH 7.405, Arterial Blood Partial Pressure CO2 37.7, Arterial Blood Partial Pressure O2 60.6L, Arterial Blood HCO3 23.1, Arterial Blood Oxygen Saturation 89.0*L, Arterial Blood Base Excess -1.4, Watson Test Positive Height (Feet): 5 Height (Inches): 11.00 Weight (Pounds): 146 General Appearance: no apparent distress EENT: other - Intubated on ventilator Cardiovascular: tachycardia Respiratory/Chest: decreased breath sounds Abdomen: distended Objective no change Clovis Benites MD Oct 06, 2019 10:44
--- NOTE | 2019-10-06 11:51 | Infectious Diseases Prog Note ---
Assessment/Plan Assessment/Plan 09/23 SP asystole cardiac arrest VDRF 09/23 Fever; SP Mild leukocytosis, improving Probable UTI -10/01 Bcx NTD u/a wbc tnct; ucx 30-40k C.albicans PNA VDRF, sp intubation 09/08, sp extubation 09/18, re-intubated 09/23 SARS-CoV neg x3 (09/06, 09/08, 09/30) MRSA screen pos 10/02 CXR: Increasing pleural fluid and possibly parenchymal consolidation at the right lung base. Unchanged left basilar pleural and parenchymal disease. sp cx GNR #1, #2 09/30 CXR: Patchy opacities throughout the right lung left mid and lower lung, similar to slightly increased. Possible small bilateral pleural effusions. 09/29 CXR: Increasing right mid and lower lung opacity, may indicate increasing pleural fluid, increasing infiltrate, or both. 09/28 CXR: Developing hazy right basilar opacity. This could represent reaching layering pleural fluid. This could also represent reexpansion pulmonary edema given recent high-volume thoracentesis, or could represent developing ammonia or pulmonary edema. Hazy left basilar opacity, unchanged, may reflect parenchymal infiltrate versus pleural fluid versus both 09/25 CXR: Large right pleural effusion is again demonstrated. Small left pleural effusion is again demonstrated. Left lung is otherwise clear. sp cx PsA (R zozyn, S levo, gentamycin) 09/24 CXR: Moderate size right pleural effusion with right upper and lower lobe atelectasis/consolidation, as well as mild pulmonary edema.. 09/17 CXR: Similar bilateral interstitial prominence, greater on the right.Stable right perihilar, mid and lower lung opacities. Similar left lung base opacity. Small left pleural effusion is stable. Loculated right pleural effusion is stable. No pneumothorax. CXR: Right pleural effusion, also demonstrated on prior 08/09/2019 exam, slightly increased. Hazy right lung parenchymal opacity probably represents a superimposed pleural fluid but infiltrate also possible. 09/06 sp cx: PSA (hensley S) and proteus (hensley S) R pleural effusion, exudative -09/18 SP thorancetesis; removal of 2050 mL fluid; Fluid prot 5 (serum prot 7.2 ); cx Neg QTc 419 RAMAN, improving DM HTN CVA Dementia Nonverbal G tube Plan: Cont Levaquin #6/7 Dc Empiric IV Vancomycin #6/5 4/ SPcefepime # 14/ 4/ SP vanc #4 ( Cr increased) ICU care monitor temp and CBC COVID neg x3 sp cx DW RN Thank you for this consult. [facility] will continue to follow the patient with you. Subjective Allergies: Coded Allergies: PENICILLINS (Verified Allergy, Unknown, 10/27/18) tolretas cephalosporins Subjective afebrile Fio2 40% mild leukocytosis Objective Vital Signs Last 24 Hour Vital Signs Date Time Temp Pulse Resp B/P (MAP) Pulse Ox O2 Delivery O2 Flow Rate FiO2 10/06/19 11:00 77 16 119/56 (77) 97 10/06/19 10:55 78 15 40 10/06/19 10:14 100 10/06/19 10:10 89 15 40 10/06/19 10:00 82 33 140/48 (78) 94 10/06/19 09:00 81 32 138/57 (84) 100 10/06/19 08:53 83 35 40 10/06/19 08:50 80 13 40 10/06/19 08:19 85 165/67 10/06/19 08:00 40 10/06/19 08:00 98.7 81 15 153/64 (93) 100 10/06/19 08:00 80 10/06/19 08:00 Mechanical Ventilator 10/06/19 07:05 85 24 40 10/06/19 07:00 83 19 127/67 (87) 100 10/06/19 06:30 85 23 10/06/19 06:00 85 23 129/66 (87) 100 10/06/19 05:11 81 17 40 10/06/19 05:00 80 19 125/65 (85) 94 10/06/19 04:00 40 10/06/19 04:00 Mechanical Ventilator 10/06/19 04:00 82 10/06/19 04:00 99.1 82 20 114/54 (74) 97 10/06/19 03:09 79 14 40 10/06/19 03:00 81 17 126/63 (84) 100 10/06/19 02:00 79 15 120/52 (74) 95 10/06/19 01:21 77 15 40 10/06/19 01:00 78 13 113/47 (69) 100 10/06/19 00:00 Mechanical Ventilator 10/06/19 00:00 98.9 78 16 118/49 (72) 92 10/05/19 23:16 79 14 40 10/05/19 23:00 83 16 107/50 (69) 100 10/05/19 22:00 82 14 107/53 (71) 99 10/05/19 21:47 83 15 40 10/05/19 21:00 82 17 121/47 (71) 98 10/05/19 20:39 82 110/56 10/05/19 20:00 98.8 85 17 110/56 (74) 100 10/05/19 20:00 82 10/05/19 20:00 40 10/05/19 20:00 Mechanical Ventilator 10/05/19 19:41 88 16 40 10/05/19 19:00 83 14 103/53 (70) 100 10/05/19 18:00 91 20 129/53 (78) 63 10/05/19 17:00 82 16 122/56 (78) 93 10/05/19 16:00 Mechanical Ventilator 10/05/19 16:00 40 10/05/19 16:00 81 10/05/19 16:00 99.0 80 19 110/50 (70) 88 10/05/19 15:00 82 17 122/49 (73) 94 10/05/19 14:39 84 15 40 10/05/19 14:00 85 17 116/54 (74) 93 10/05/19 13:00 83 20 116/56 (76) 94 10/05/19 12:00 40 10/05/19 12:00 98.2 81 17 116/59 (78) 93 10/05/19 12:00 Mechanical Ventilator 10/05/19 11:50 83 Height (Feet): 5 Height (Inches): 11.00 Weight (Pounds): 146 Objective Gen: NAD. well nourished HEENT: ETT. oral secretions Resp: coarse. equal chest rise. regular rate and rhythm. Abd: Soft. no TTP. nondistended. G tube site c/d/i. Neuro: opens eyes to voice and follows simple commands Microbiology Date/Time Source Procedure Growth Status 10/03/19 21:00 Sputum Gram Stain - Final Resulted 10/03/19 21:00 Sputum Culture - Preliminary Gram Negative Bacillus 1 Gram Negative Bacillus 2 Resulted Laboratory Tests Test 10/06/19 05:30 10/06/19 09:55 White Blood Count 12.2 K/UL (4.8-10.8) H Red Blood Count 3.28 M/UL (4.70-6.10) L Hemoglobin 8.6 G/DL (14.2-18.0) L Hematocrit 26.8 % (42.0-52.0) L Mean Corpuscular Volume 82 FL (80-99) Mean Corpuscular Hemoglobin 26.3 PG (27.0-31.0) L Mean Corpuscular Hemoglobin Concent 32.2 G/DL (32.0-36.0) Red Cell Distribution Width 17.3 % (11.6-14.8) H Platelet Count 391 K/UL (150-450) Mean Platelet Volume 4.9 FL (6.5-10.1) L Neutrophils (%) (Auto) 77.3 % (45.0-75.0) H Lymphocytes (%) (Auto) 12.7 % (20.0-45.0) L Monocytes (%) (Auto) 5.6 % (1.0-10.0) Eosinophils (%) (Auto) 3.6 % (0.0-3.0) H Basophils (%) (Auto) 0.8 % (0.0-2.0) Sodium Level 137 MMOL/L (136-145) Potassium Level 4.5 MMOL/L (3.5-5.1) Chloride Level 104 MMOL/L (98-107) Carbon Dioxide Level 26 MMOL/L (21-32) Anion Gap 8 mmol/L (5-15) Blood Urea Nitrogen 24 mg/dL (7-18) H Creatinine 0.9 MG/DL (0.55-1.30) Estimat Glomerular Filtration Rate > 60 mL/min (>60) Glucose Level 145 MG/DL (74-106) H Calcium Level 8.5 MG/DL (8.5-10.1) Phosphorus Level 3.5 MG/DL (2.5-4.9) Magnesium Level 2.0 MG/DL (1.8-2.4) Total Bilirubin 0.2 MG/DL (0.2-1.0) Aspartate Amino Transf (AST/SGOT) 69 U/L (15-37) H Alanine Aminotransferase (ALT/SGPT) 53 U/L (12-78) Alkaline Phosphatase 224 U/L (46-116) H C-Reactive Protein, Quantitative 16.4 mg/dL (0.00-0.90) H Pro-B-Type Natriuretic Peptide 302 pg/mL (0-125) H Total Protein 6.4 G/DL (6.4-8.2) Albumin 1.5 G/DL (3.4-5.0) L Globulin 4.9 g/dL Albumin/Globulin Ratio 0.3 (1.0-2.7) L Thyroid Stimulating Hormone (TSH) 8.136 uiU/mL (0.358-3.740) Arterial Blood pH 7.405 (7.350-7.450) Arterial Blood Partial Pressure CO2 37.7 mmHg (35.0-45.0) Arterial Blood Partial Pressure O2 60.6 mmHg (75.0-100.0) L Arterial Blood HCO3 23.1 mmol/L (22.0-26.0) Arterial Blood Oxygen Saturation 89.0 % (95-100) *L Arterial Blood Base Excess -1.4 (-2-2) Watson Test Positive Current Medications Medications (Trade) Dose Ordered Sig/Kike Route PRN Reason Start Time Stop Time Status Last Admin Dose Admin Acetaminophen (Tylenol) 650 mg Q4H PRN ORAL fever 09/24/19 03:00 10/07/19 02:54 10/04/19 20:12 Amlodipine Besylate (Norvasc) 5 mg BID@0900,2100 NG 09/24/19 21:00 10/22/19 08:59 10/06/19 08:19 Docusate Sodium (Colace) 100 mg TID GT 10/05/19 13:00 11/03/19 08:59 10/06/19 08:20 Heparin Sodium (Porcine) (Heparin 5000 units/ml) 5,000 units EVERY 12 HOURS SUBQ 09/24/19 09:00 10/22/19 08:59 10/06/19 08:19 Lansoprazole (Prevacid) 30 mg DAILY GT 10/04/19 09:00 11/03/19 08:59 10/06/19 08:19 Levofloxacin (Levaquin) 750 mg DAILY ORAL 09/30/19 13:00 10/07/19 12:59 10/06/19 08:20 Levothyroxine Sodium (Synthroid) 75 mcg DAILY@0630 ORAL 09/24/19 06:30 10/07/19 08:29 10/06/19 06:21 Nitroglycerin (Ntg) 0.4 mg Q5M PRN SL Prn Chest Pain 09/24/19 02:30 10/07/19 04:29 Ondansetron HCl (Zofran) 4 mg Q6H PRN IVP Nausea & Vomiting 09/24/19 03:00 10/07/19 02:57 09/28/19 21:10 Polyethylene Glycol (Miralax) 17 gm DAILYPRN PRN ORAL Constipation 09/24/19 03:00 10/07/19 02:57 10/06/19 08:20 Promethazine HCl/ Codeine (Phenergan with Codeine) 5 ml Q4H PRN ORAL For Cough 09/24/19 03:00 10/07/19 02:58 Quetiapine Fumarate (SEROqueL) 25 mg Q8H PRN NG Agitation 09/24/19 02:35 10/30/19 02:34 10/05/19 22:35 Sennosides (Senokot) 8.6 mg DAILY PRN ORAL Constipation 10/06/19 10:15 11/05/19 10:14 Vancomycin HCl (Vanco rx to dose) 1 ea DAILY PRN MISC Per rx protocol 10/01/19 17:15 10/31/19 17:14 Vancomycin HCl 750 mg/Sodium Chloride 275 ml @ 183.333 mls/hr Q12HR@0800,1999 IVPB 10/03/19 20:00 10/08/19 19:59 10/06/19 08:20 Danielle Roach M.D. Oct 06, 2019 11:51
--- NOTE | 2019-10-06 17:04 | Internal Med Progress Note ---
Subjective Date of Service: Oct 06, 2019 Physician Name Xander Bah Attending Physician Lamont Hayes MD Current Medications Medications (Trade) Dose Ordered Sig/Kike Route PRN Reason Start Time Stop Time Status Last Admin Dose Admin Acetaminophen (Tylenol) 650 mg Q4H PRN ORAL fever 09/24/19 03:00 10/07/19 02:54 10/04/19 20:12 Amlodipine Besylate (Norvasc) 5 mg BID@0900,2100 NG 09/24/19 21:00 10/22/19 08:59 10/06/19 08:19 Docusate Sodium (Colace) 100 mg TID GT 10/05/19 13:00 11/03/19 08:59 10/06/19 14:07 Heparin Sodium (Porcine) (Heparin 5000 units/ml) 5,000 units EVERY 12 HOURS SUBQ 09/24/19 09:00 10/22/19 08:59 10/06/19 08:19 Lansoprazole (Prevacid) 30 mg DAILY GT 10/04/19 09:00 11/03/19 08:59 10/06/19 08:19 Levofloxacin (Levaquin) 750 mg DAILY ORAL 09/30/19 13:00 10/07/19 12:59 10/06/19 08:20 Levothyroxine Sodium (Synthroid) 75 mcg DAILY@0630 ORAL 09/24/19 06:30 10/07/19 08:29 10/06/19 06:21 Nitroglycerin (Ntg) 0.4 mg Q5M PRN SL Prn Chest Pain 09/24/19 02:30 10/07/19 04:29 Ondansetron HCl (Zofran) 4 mg Q6H PRN IVP Nausea & Vomiting 09/24/19 03:00 10/07/19 02:57 09/28/19 21:10 Polyethylene Glycol (Miralax) 17 gm DAILYPRN PRN ORAL Constipation 09/24/19 03:00 10/07/19 02:57 10/06/19 08:20 Promethazine HCl/ Codeine (Phenergan with Codeine) 5 ml Q4H PRN ORAL For Cough 09/24/19 03:00 10/07/19 02:58 Quetiapine Fumarate (SEROqueL) 25 mg Q8H PRN NG Agitation 09/24/19 02:35 10/30/19 02:34 10/05/19 22:35 Sennosides (Senokot) 8.6 mg DAILY PRN ORAL Constipation 10/06/19 10:15 11/05/19 10:14 Allergies: Coded Allergies: PENICILLINS (Verified Allergy, Unknown, 10/27/18) tolretas cephalosporins ROS Limited/Unobtainable: Yes Subjective 84 YO M admitted with cough and congestion. Cover for Int Med-Dr Hayes. Reintubated 09/24/19 after cardiopulmonary arrest-see code blue note. ICU Objective Last Vital Signs Date Time Temp Pulse Resp B/P (MAP) Pulse Ox O2 Delivery O2 Flow Rate FiO2 10/06/19 16:00 99.0 88 21 133/69 (90) 96 10/06/19 16:00 40 10/06/19 16:00 Mechanical Ventilator Laboratory Tests Test 10/06/19 05:30 10/06/19 09:55 White Blood Count 12.2 K/UL (4.8-10.8) H Red Blood Count 3.28 M/UL (4.70-6.10) L Hemoglobin 8.6 G/DL (14.2-18.0) L Hematocrit 26.8 % (42.0-52.0) L Mean Corpuscular Volume 82 FL (80-99) Mean Corpuscular Hemoglobin 26.3 PG (27.0-31.0) L Mean Corpuscular Hemoglobin Concent 32.2 G/DL (32.0-36.0) Red Cell Distribution Width 17.3 % (11.6-14.8) H Platelet Count 391 K/UL (150-450) Mean Platelet Volume 4.9 FL (6.5-10.1) L Neutrophils (%) (Auto) 77.3 % (45.0-75.0) H Lymphocytes (%) (Auto) 12.7 % (20.0-45.0) L Monocytes (%) (Auto) 5.6 % (1.0-10.0) Eosinophils (%) (Auto) 3.6 % (0.0-3.0) H Basophils (%) (Auto) 0.8 % (0.0-2.0) Sodium Level 137 MMOL/L (136-145) Potassium Level 4.5 MMOL/L (3.5-5.1) Chloride Level 104 MMOL/L (98-107) Carbon Dioxide Level 26 MMOL/L (21-32) Anion Gap 8 mmol/L (5-15) Blood Urea Nitrogen 24 mg/dL (7-18) H Creatinine 0.9 MG/DL (0.55-1.30) Estimat Glomerular Filtration Rate > 60 mL/min (>60) Glucose Level 145 MG/DL (74-106) H Calcium Level 8.5 MG/DL (8.5-10.1) Phosphorus Level 3.5 MG/DL (2.5-4.9) Magnesium Level 2.0 MG/DL (1.8-2.4) Total Bilirubin 0.2 MG/DL (0.2-1.0) Aspartate Amino Transf (AST/SGOT) 69 U/L (15-37) H Alanine Aminotransferase (ALT/SGPT) 53 U/L (12-78) Alkaline Phosphatase 224 U/L (46-116) H C-Reactive Protein, Quantitative 16.4 mg/dL (0.00-0.90) H Pro-B-Type Natriuretic Peptide 302 pg/mL (0-125) H Total Protein 6.4 G/DL (6.4-8.2) Albumin 1.5 G/DL (3.4-5.0) L Globulin 4.9 g/dL Albumin/Globulin Ratio 0.3 (1.0-2.7) L Thyroid Stimulating Hormone (TSH) 8.136 uiU/mL (0.358-3.740) Arterial Blood pH 7.405 (7.350-7.450) Arterial Blood Partial Pressure CO2 37.7 mmHg (35.0-45.0) Arterial Blood Partial Pressure O2 60.6 mmHg (75.0-100.0) L Arterial Blood HCO3 23.1 mmol/L (22.0-26.0) Arterial Blood Oxygen Saturation 89.0 % (95-100) *L Arterial Blood Base Excess -1.4 (-2-2) Watson Test Positive Microbiology Date/Time Source Procedure Growth Status 10/03/19 21:00 Sputum Gram Stain - Final Resulted 10/03/19 21:00 Sputum Culture - Preliminary Gram Negative Bacillus 1 Gram Negative Bacillus 2 Resulted Intake and Output 10/05/19 10/06/19 19:00 07:00 Intake Total 1185.000 ml 1235 ml Output Total 495 ml 840 ml Balance 690.000 ml 395 ml Intake Free Water 90 ml 240 ml IV Total 275.000 ml 275 ml Tube Feeding 720 ml 720 ml Other 100 ml Output Urine Total 495 ml 840 ml Objective PHYSICAL EXAMINATION: GENERAL: The patient is a thin-appearing male, in no apparent distress. HEENT: Eyes, pupils are equal and responsive to light and accommodation. Extraocular movements are intact. NECK: Supple without lymphadenopathy. CHEST: Mech vent; Lungs are clear to auscultation bilaterally with decreased breath sounds on the right. There are no wheezes appreciated. ABDOMEN: Soft, nontender, and nondistended. Positive bowel sounds. No evidence of hepatosplenomegaly. Currently, no rebound or guarding noted. EXTREMITIES: Negative for clubbing, cyanosis, or edema. RECTAL/GENITAL: Not performed. NEUROLOGIC: Cranial nerves II through XII are grossly intact without focal deficits. Assessment/Plan Assessment/Plan ASSESSMENT: This is an 84-year-old male with: 1. right pneumonia=pseudamonas 2. Urinary tract infection=jennifer 3. Right pleural effusion. 4. Esophageal mass. 5. Dysphagia. 6. Diabetes. 7. Alzheimer's dementia. 8. Cerebrovascular disease. 9. Hypothyroidism. 10. Seizure disorder. 11. Iron deficiency anemia. 13. Respiratory failure 14. S/P cardiopulmonary arrest 15. Anemia TREATMENT: 1. Right perihilar Pneumonia/pleural effusion. COVID 19 and Influenza negative. A Pulmonary consultation has been obtained with Dr. Vania Hui. S/P right thoracentesis 09/19/19. We will follow recommendation of Pulmonary. ID=Dr Roach ABX= levofloxacin and vanco per ID 2. Urinary tract infection. . A urine culture =jennifer 3. Right pleural effusion. As above, a Pulmonary consultation has been obtained with Dr. Vania Hui. The patient may require thoracentesis during this hospitalization. 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 A Gastroenterology consultation has been obtained with Dr. Darrick Rosario. 5. Dysphagia. The patient is status post PEG placement on 08/08/2019 at [facility] by Dr. Darrick Rosario. 6. Diabetes type 2. A NovoLog sliding scale has been instituted. 7. Alzheimer's dementia. 8. Cerebrovascular disease, status post cerebrovascular accident. 9. Hypothyroidism. Continue levothyroxine as above. 10. Seizure disorder. 11. Iron deficiency anemia. 12. reintubated 09/24/19-see code blue note 13. S/P transfusion 2 units PRBC Xander Bah MD Oct 06, 2019 17:04
--- NOTE | 2019-10-06 17:27 | Surgery Progress Note ---
Surgery Progress Note Subjective Additional Comments no acute events tube feeds at 60 labs noted on support Objective Last 24 Hour Vital Signs Date Time Temp Pulse Resp B/P (MAP) Pulse Ox O2 Delivery O2 Flow Rate FiO2 10/06/19 17:10 80 16 40 10/06/19 17:05 81 18 108/53 (71) 93 10/06/19 16:00 99.0 88 21 133/69 (90) 96 10/06/19 16:00 40 10/06/19 16:00 Mechanical Ventilator 10/06/19 16:00 85 10/06/19 15:00 77 18 115/59 (77) 99 10/06/19 14:00 76 16 115/58 (77) 79 10/06/19 13:00 78 18 128/57 (80) 92 10/06/19 12:50 79 15 40 10/06/19 12:00 79 10/06/19 12:00 98.0 77 17 128/51 (76) 81 10/06/19 12:00 Mechanical Ventilator 10/06/19 12:00 40 10/06/19 11:00 77 16 119/56 (77) 97 10/06/19 10:55 78 15 40 10/06/19 10:14 100 10/06/19 10:10 89 15 40 10/06/19 10:00 82 33 140/48 (78) 94 10/06/19 09:00 81 32 138/57 (84) 100 10/06/19 08:53 83 35 40 10/06/19 08:50 80 13 40 10/06/19 08:19 85 165/67 10/06/19 08:00 40 10/06/19 08:00 98.7 81 15 153/64 (93) 100 10/06/19 08:00 80 10/06/19 08:00 Mechanical Ventilator 10/06/19 07:05 85 24 40 10/06/19 07:00 83 19 127/67 (87) 100 10/06/19 06:30 85 23 10/06/19 06:00 85 23 129/66 (87) 100 10/06/19 05:11 81 17 40 10/06/19 05:00 80 19 125/65 (85) 94 10/06/19 04:00 40 10/06/19 04:00 Mechanical Ventilator 10/06/19 04:00 82 10/06/19 04:00 99.1 82 20 114/54 (74) 97 10/06/19 03:09 79 14 40 10/06/19 03:00 81 17 126/63 (84) 100 10/06/19 02:00 79 15 120/52 (74) 95 10/06/19 01:21 77 15 40 10/06/19 01:00 78 13 113/47 (69) 100 10/06/19 00:00 Mechanical Ventilator 10/06/19 00:00 98.9 78 16 118/49 (72) 92 10/05/19 23:16 79 14 40 10/05/19 23:00 83 16 107/50 (69) 100 10/05/19 22:00 82 14 107/53 (71) 99 10/05/19 21:47 83 15 40 10/05/19 21:00 82 17 121/47 (71) 98 10/05/19 20:39 82 110/56 10/05/19 20:00 98.8 85 17 110/56 (74) 100 10/05/19 20:00 82 10/05/19 20:00 40 10/05/19 20:00 Mechanical Ventilator 10/05/19 19:41 88 16 40 10/05/19 19:00 83 14 103/53 (70) 100 10/05/19 18:00 91 20 129/53 (78) 63 I&O Intake and Output 10/05/19 10/06/19 19:00 07:00 Intake Total 1185.000 ml 1235 ml Output Total 495 ml 840 ml Balance 690.000 ml 395 ml Intake Free Water 90 ml 240 ml IV Total 275.000 ml 275 ml Tube Feeding 720 ml 720 ml Other 100 ml Output Urine Total 495 ml 840 ml Dressing: other Wound: other Drains: other Cardiovascular: RSR Respiratory: decreased breath sounds Abdomen: soft, non-tender, present bowel sounds Extremities: no cyanosis Laboratory Tests Test 10/06/19 05:30 10/06/19 09:55 White Blood Count 12.2 K/UL (4.8-10.8) H Red Blood Count 3.28 M/UL (4.70-6.10) L Hemoglobin 8.6 G/DL (14.2-18.0) L Hematocrit 26.8 % (42.0-52.0) L Mean Corpuscular Volume 82 FL (80-99) Mean Corpuscular Hemoglobin 26.3 PG (27.0-31.0) L Mean Corpuscular Hemoglobin Concent 32.2 G/DL (32.0-36.0) Red Cell Distribution Width 17.3 % (11.6-14.8) H Platelet Count 391 K/UL (150-450) Mean Platelet Volume 4.9 FL (6.5-10.1) L Neutrophils (%) (Auto) 77.3 % (45.0-75.0) H Lymphocytes (%) (Auto) 12.7 % (20.0-45.0) L Monocytes (%) (Auto) 5.6 % (1.0-10.0) Eosinophils (%) (Auto) 3.6 % (0.0-3.0) H Basophils (%) (Auto) 0.8 % (0.0-2.0) Sodium Level 137 MMOL/L (136-145) Potassium Level 4.5 MMOL/L (3.5-5.1) Chloride Level 104 MMOL/L (98-107) Carbon Dioxide Level 26 MMOL/L (21-32) Anion Gap 8 mmol/L (5-15) Blood Urea Nitrogen 24 mg/dL (7-18) H Creatinine 0.9 MG/DL (0.55-1.30) Estimat Glomerular Filtration Rate > 60 mL/min (>60) Glucose Level 145 MG/DL (74-106) H Calcium Level 8.5 MG/DL (8.5-10.1) Phosphorus Level 3.5 MG/DL (2.5-4.9) Magnesium Level 2.0 MG/DL (1.8-2.4) Total Bilirubin 0.2 MG/DL (0.2-1.0) Aspartate Amino Transf (AST/SGOT) 69 U/L (15-37) H Alanine Aminotransferase (ALT/SGPT) 53 U/L (12-78) Alkaline Phosphatase 224 U/L (46-116) H C-Reactive Protein, Quantitative 16.4 mg/dL (0.00-0.90) H Pro-B-Type Natriuretic Peptide 302 pg/mL (0-125) H Total Protein 6.4 G/DL (6.4-8.2) Albumin 1.5 G/DL (3.4-5.0) L Globulin 4.9 g/dL Albumin/Globulin Ratio 0.3 (1.0-2.7) L Thyroid Stimulating Hormone (TSH) 8.136 uiU/mL (0.358-3.740) Arterial Blood pH 7.405 (7.350-7.450) Arterial Blood Partial Pressure CO2 37.7 mmHg (35.0-45.0) Arterial Blood Partial Pressure O2 60.6 mmHg (75.0-100.0) L Arterial Blood HCO3 23.1 mmol/L (22.0-26.0) Arterial Blood Oxygen Saturation 89.0 % (95-100) *L Arterial Blood Base Excess -1.4 (-2-2) Watson Test Positive Plan Problems: (1) UTI (urinary tract infection) (2) Acute respiratory failure Assessment & Plan: There is infiltrate suspected in the right perihilar region obscuring the right hilum. There is a hazy opacity that may partially be accounted for by pleural fluid on the right. Reticular densities are present on the left in the perihilar aspect of the lung. Endotracheal tube is in good position just above the anselmo. Heart size is normal. IMPRESSION: Suspected perihilar airspace disease in the right lung suspicious for pneumonia. Reticular nodular infiltrate in the left lung noted also. Right pleural effusion suspected. Endotracheal tube in good position cont vents support Lungs: Similar bilateral interstitial prominence, greater on the right. Stable right perihilar, mid and lower lung opacities. Similar left lung base opacity. Pleural space: Small left pleural effusion is stable. Loculated right pleural effusion is stable. No pneumothorax. Heart: Unremarkable. No cardiomegaly. Mediastinum: Unremarkable. Bones/joints: Unremarkable. Tubes, lines and devices: Endotracheal tube has been pulled back and is 10 cm above the anselmo near the thoracic inlet. IMPRESSION: Endotracheal tube has been pulled back and is 10 cm above the anselmo near the thoracic inlet. Remainder findings are stable. may need thoracentesis soon Moderate size right pleural effusion with right upper and lower lobe atelectasis/consolidation, as well as mild pulmonary edema.. 1. Patchy opacities throughout the right lung left mid and lower lung, similar to slightly increased. Possible small bilateral pleural effusions. 2. Endotracheal tube terminates in the region of the lower thoracic trachea above the anselmo. consider trach (3) Sepsis Assessment & Plan: Pt cachetic and presented on admission with multiple pressure injuries. Partial thickness pressure injury Cleft of L ear(L)1.2cm x (W)0.4cm. Base of wound moist and viable with small amt sanguineous exudate. Partial thickness pressure injury cleft of R ear(L)0.5cm x (W)0.7cm. Base of wound moist and viable Periwound erythematous.Small amt sanguineous exudate noted. Sacral DTPI(L)5cm x (W)10.5cm. Base of injury is purple with maroon borders. Coccygeal bony protrusion with darker skin tone, and small opening noted to R gluteus (L)0.5cm x (W)0.5cm within base of injury. No further skin breakdown periwound. Intact blood blister noted to R 1st metatarsal head(L)1.1cm x (W)2.5cm. DTPI noted to L heel extending into plantar aspect. Base of injury presents as an intact blood filled blister. Periwound is boggy with non-blanching erythema. R heel is boggy but blanchable. wounds unlikely etiology of sepsis respiratory but given current condition high risk for breakdown and worsening will monitor closely discussed with RN and staff great care being provided coded acls intubated in ICU prognosis guarded Tx.Plan: Apply Betadine to clefts of R and L ears. Pad oxygen tubing with gauze and keep oxygen tubing loose. Apply Moisture Barrier Paste to Sacrum. Cover with Optifoam drsg. Change every 3 days and prn. Apply Betadine to L heel. Cover with Optifoam drsg. Change every 3 days and prn. Apply Betadine to R 1st metatarsal head. Cover with Optifoam drsg. Change every 3 days and prn. Apply Cavilon Skin Barrier R heel. Cover with Optifoam drsg. Change every 7 days and prn. Reposition at least every 2hours or as tolerated. Off-load heels with pillow. on air mattress but not very comfortable appearing cont current care / pulm management (4) Severe anemia (5) Nosocomial pneumonia (6) Atrial fibrillation (7) Acute metabolic encephalopathy (8) History of CVA (cerebrovascular accident) (9) Diabetes mellitus (10) Hypothyroidism (11) Alzheimer's dementia (12) PVC (premature ventricular contraction) (13) Hypertension (14) Squamous cell esophageal cancer (15) Feeding by G-tube (16) Dehydration (17) Anemia (18) Severe malnutrition Assessment & Plan: DAILY ESTIMATED NEEDS: Needs based on underweight, suspected wt loss, wounds/ 63kg 25-33 kcals/kg 8895-6026 total kcals 1.25-2 g protein/kg 78-126 g total protein 25-30 mL/kg 0867-0453 total fluid mLs NUTRITION DIAGNOSIS: * Swallowing difficulty R/T dysphagia w/ h/o CVA as evidenced by now s/p recent PEG placement (08/08/19), on GT feeds, held at time, s/p code blue (09/07), orally intubated, now extubated. * Increased kcal/prot intake needs R/T suspected significant wt loss and underweight status, wounds as evidenced by 10lbs/6.7% wt loss in 1 month, 76% IBW w/ BMI of 18.4, admitted w/ DTPI wound @ sacrum, Lt heel, partial thickness pressure injury cleft of R L ear. CURRENT TF:Osmolite 1.2 @ 60ml/hr x 22 hrs ENTERAL NUTRITION RECOMMENDATIONS: Osmolite 1.2 @ 60ml/hr x 22 hrs + Prosource x 1 to provide 1320ml, 1584kcal, 73g +11g prot, 1082ml free water - Add Prosource x 1 to meet protein needs - HOLD 1 hr before and after synthroid meds. add Prosource 1 pack daily to better meet est pro needs - Flush per MD/ HOB over 30 degrees WITH ELEV BG, rec TF change to Glucerna 1.2 w/ a goal of 60ml/hr x22 hrs to provide 1320ml, 1584kcal, 79g prot ADDITIONAL RECOMMENDATIONS: * PER SNF: HT=6'1" WT= 139lbs ("August weight" from SNF) -> calibrated bedscale wt * Monitor K, need for TF change (K 5.9 upon adm, now wnl) * Wound care: add Vit C 500mg QD + Wesley 1pkt BID via PEG * Monitor BGs, need for NISS: h/o DM per MD (checking A1C not suggested given low hgb) (19) Encounter for PEG (percutaneous endoscopic gastrostomy) (20) At high risk for aspiration (21) Pleural effusion (22) Suspected COVID-19 virus infection Jan Mora Oct 06, 2019 17:27
[2019-10-07] VITALS (24 sets, daily range): BP systolic 112–142; BP diastolic 49–69
[2019-10-07 05:37] LABS: BASOPHILS % (AUTO) 0.8 % (0.0-2.0); EOSINOPHILS % (AUTO) 3.5 % (0.0-3.0); LYMPHOCYTES % (AUTO) 20.2 % (20.0-45.0); MEAN CORPUSCULAR VOLUME 81 FL (80-99); MONOCYTES % (AUTO) 6.1 % (1.0-10.0); NEUTROPHILS % (AUTO) 69.5 % (45.0-75.0); PLATELET COUNT 440 K/UL (150-450); RED BLOOD COUNT 3.48 M/UL (4.70-6.10); RED CELL DISTRIBUTION WIDTH 17.1 % (11.6-14.8); WHITE BLOOD COUNT 13.1 K/UL (4.8-10.8)
[2019-10-07 06:15] LABS: ANION GAP 10 mmol/L (5-15); BLOOD UREA NITROGEN 24 mg/dL (7-18); CARBON DIOXIDE 26 MMOL/L (21-32); CHLORIDE 102 MMOL/L (98-107); POTASSIUM 4.6 MMOL/L (3.5-5.1); SODIUM 138 MMOL/L (136-145)
[2019-10-07] MEDS: Docusate 100mg/10ml Liq GT SCH ×3 (08:17→17:40)
[2019-10-07] MEDS: Levofloxacin 750mg tab ORAL SCH (08:17)
[2019-10-07] MEDS: Heparin 5000 units/ml inj SUBQ SCH ×2 (08:18→20:12)
--- NOTE | 2019-10-07 09:11 | Nephrology Progress Note ---
Assessment/Plan Problem List: (1) RAMAN (acute kidney injury) Assessment: Serum creatinine normalized with hydration (2) Dehydration (3) Suspected COVID-19 virus infection (4) Anemia (5) Sepsis (6) Diabetes mellitus (7) Hypothyroidism Assessment - Acute renal failure - Severe anemia - Sepsis, pneumonia, acute respiratory failure, suspected: Viewed 19 virus infection - Diabetes mellitus - Hypothyroidism - Feeding by G-tube - Squamous cell esophageal cancer - History of CVA (cerebrovascular accident) Plan Discussed with RN Weaning trial is being attempted Main stable from renal standpoint of view Previously Patient was coded early September 23 morning and back in ICU intubated Serum creatinine miguel to 1.5, now back to normal Stable from renal standpoint of view at this point He is status remains full code Tested negative for COVID-19 Previously: Pneumonia SARS-CoV neg x2 MRSA screen pos sp cx: PSA and proteus Changes Seroquel to "as needed" due to bradycardia Discontinue IV fluid Monitor renal parameters, serum creatinine Adjust electrolytes with supplements Increase Synthroid dose Avoid nephrotoxic's as possible Ventilator management Urine studies Per orders Subjective ROS Limited/Unobtainable: Yes Objective Objective Last 24 Hour Vital Signs Date Time Temp Pulse Resp B/P (MAP) Pulse Ox O2 Delivery O2 Flow Rate FiO2 10/07/19 08:51 82 27 40 10/07/19 08:50 87 19 40 10/07/19 08:18 85 123/61 10/07/19 08:00 40 10/07/19 08:00 85 15 123/61 (81) 89 10/07/19 08:00 Mechanical Ventilator 10/07/19 07:00 84 14 127/51 (76) 10/07/19 06:45 83 16 40 10/07/19 06:30 93 19 10/07/19 06:00 83 14 113/53 (73) 100 10/07/19 05:00 84 15 124/65 (84) 100 10/07/19 04:52 80 18 40 10/07/19 04:00 40 10/07/19 04:00 Mechanical Ventilator 10/07/19 04:00 84 23 115/63 (80) 99 10/07/19 04:00 81 10/07/19 03:00 84 23 115/63 (80) 99 10/07/19 02:58 82 15 40 10/07/19 02:00 75 15 112/58 (76) 100 10/07/19 01:33 79 16 40 10/07/19 01:00 81 20 119/54 (75) 100 10/07/19 00:00 86 10/07/19 00:00 Mechanical Ventilator 10/07/19 00:00 99.1 81 13 115/54 (74) 100 10/06/19 23:00 87 14 105/56 (72) 100 10/06/19 22:38 87 23 40 10/06/19 22:00 82 24 134/56 (82) 100 10/06/19 21:00 77 15 109/54 (72) 100 10/06/19 20:43 76 16 40 10/06/19 20:43 82 114/57 10/06/19 20:00 40 10/06/19 20:00 79 10/06/19 20:00 98.6 76 15 115/52 (73) 100 10/06/19 20:00 Mechanical Ventilator 10/06/19 19:00 82 22 114/57 (76) 100 10/06/19 18:57 79 16 40 10/06/19 18:00 87 17 136/48 (77) 100 10/06/19 17:10 80 16 40 10/06/19 17:05 81 18 108/53 (71) 93 10/06/19 16:00 98.0 88 21 133/69 (90) 96 10/06/19 16:00 40 10/06/19 16:00 Mechanical Ventilator 10/06/19 16:00 85 10/06/19 15:00 77 18 115/59 (77) 99 10/06/19 14:00 76 16 115/58 (77) 79 10/06/19 13:00 78 18 128/57 (80) 92 10/06/19 12:50 79 15 40 10/06/19 12:00 79 10/06/19 12:00 98.4 77 17 128/51 (76) 81 10/06/19 12:00 Mechanical Ventilator 10/06/19 12:00 40 10/06/19 11:00 77 16 119/56 (77) 97 10/06/19 10:55 78 15 40 10/06/19 10:14 100 10/06/19 10:10 89 15 40 10/06/19 10:00 82 33 140/48 (78) 94 Intake and Output 10/06/19 10/07/19 19:00 07:00 Intake Total 1266.666 ml 820 ml Output Total 480 ml 570 ml Balance 786.666 ml 250 ml Intake Free Water 180 ml 100 ml IV Total 366.666 ml Tube Feeding 720 ml 660 ml Other 60 ml Output Urine Total 480 ml 570 ml Laboratory Tests 10/06/19 09:55: Arterial Blood pH 7.405, Arterial Blood Partial Pressure CO2 37.7, Arterial Blood Partial Pressure O2 60.6L, Arterial Blood HCO3 23.1, Arterial Blood Oxygen Saturation 89.0*L, Arterial Blood Base Excess -1.4, Watson Test Positive 10/07/19 03:42: White Blood Count 13.1H, Red Blood Count 3.48L, Hemoglobin 9.0L, Hematocrit 28.0L, Mean Corpuscular Volume 81, Mean Corpuscular Hemoglobin 25.9L, Mean Corpuscular Hemoglobin Concent 32.2, Red Cell Distribution Width 17.1H, Platelet Count 440, Mean Platelet Volume 5.1L, Neutrophils (%) (Auto) 69.5, Lymphocytes (%) (Auto) 20.2, Monocytes (%) (Auto) 6.1, Eosinophils (%) (Auto) 3.5H, Basophils (%) (Auto) 0.8, Sodium Level 138, Potassium Level 4.6, Chloride Level 102, Carbon Dioxide Level 26, Anion Gap 10, Blood Urea Nitrogen 24H, Creatinine 1.0, Estimat Glomerular Filtration Rate > 60, Glucose Level 108H, Calcium Level 9.0 Height (Feet): 5 Height (Inches): 11.00 Weight (Pounds): 144 General Appearance: no apparent distress EENT: other - Intubated and on ventilator Cardiovascular: tachycardia Respiratory/Chest: decreased breath sounds Abdomen: distended Objective no change Clovis Benites MD October 07, 2019 09:11
--- NOTE | 2019-10-07 10:28 | General Progress Note ---
Assessment/Plan Status: unchanged Assessment/Plan: 1. Esophageal cancer. 2. Dysphagia. 3. Diabetes type 2. 4. Dementia. 5. CVA. 6. Hypothyroidism. 7. Seizure disorder. 8. Iron deficiency anemia. 9. Respiratory failure. 10. Dysphagia with G-tube stable H&H GT has been changed and working well GT flushes dietitian in put appreciated>>> TF Javity subhash abx per id pulm care bowel regimen recent labs and notes reviewed D/W the nurse will fu Subjective ROS Limited/Unobtainable: No Allergies: Coded Allergies: PENICILLINS (Verified Allergy, Unknown, 10/27/18) tolretas cephalosporins Objective Last 24 Hour Vital Signs Date Time Temp Pulse Resp B/P (MAP) Pulse Ox O2 Delivery O2 Flow Rate FiO2 10/07/19 10:00 83 17 131/63 (85) 100 10/07/19 09:51 80 17 40 10/07/19 09:50 100 10/07/19 09:12 98.0 82 35 142/66 (91) 98 10/07/19 08:51 82 27 40 10/07/19 08:50 87 19 40 10/07/19 08:18 85 123/61 10/07/19 08:00 40 10/07/19 08:00 85 10/07/19 08:00 85 15 123/61 (81) 89 10/07/19 08:00 Mechanical Ventilator 10/07/19 07:00 84 14 127/51 (76) 10/07/19 06:45 83 16 40 10/07/19 06:30 93 19 10/07/19 06:00 83 14 113/53 (73) 100 10/07/19 05:00 84 15 124/65 (84) 100 10/07/19 04:52 80 18 40 10/07/19 04:00 40 10/07/19 04:00 Mechanical Ventilator 10/07/19 04:00 84 23 115/63 (80) 99 10/07/19 04:00 81 10/07/19 03:00 84 23 115/63 (80) 99 10/07/19 02:58 82 15 40 10/07/19 02:00 75 15 112/58 (76) 100 10/07/19 01:33 79 16 40 10/07/19 01:00 81 20 119/54 (75) 100 10/07/19 00:00 86 10/07/19 00:00 Mechanical Ventilator 10/07/19 00:00 99.1 81 13 115/54 (74) 100 10/06/19 23:00 87 14 105/56 (72) 100 10/06/19 22:38 87 23 40 10/06/19 22:00 82 24 134/56 (82) 100 10/06/19 21:00 77 15 109/54 (72) 100 10/06/19 20:43 76 16 40 10/06/19 20:43 82 114/57 10/06/19 20:00 40 10/06/19 20:00 79 10/06/19 20:00 98.6 76 15 115/52 (73) 100 10/06/19 20:00 Mechanical Ventilator 10/06/19 19:00 82 22 114/57 (76) 100 10/06/19 18:57 79 16 40 10/06/19 18:00 87 17 136/48 (77) 100 10/06/19 17:10 80 16 40 10/06/19 17:05 81 18 108/53 (71) 93 10/06/19 16:00 98.0 88 21 133/69 (90) 96 10/06/19 16:00 40 10/06/19 16:00 Mechanical Ventilator 10/06/19 16:00 85 10/06/19 15:00 77 18 115/59 (77) 99 10/06/19 14:00 76 16 115/58 (77) 79 10/06/19 13:00 78 18 128/57 (80) 92 10/06/19 12:50 79 15 40 10/06/19 12:00 79 10/06/19 12:00 98.4 77 17 128/51 (76) 81 10/06/19 12:00 Mechanical Ventilator 10/06/19 12:00 40 10/06/19 11:00 77 16 119/56 (77) 97 10/06/19 10:55 78 15 40 Intake and Output 10/06/19 10/07/19 19:00 07:00 Intake Total 1266.666 ml 820 ml Output Total 480 ml 570 ml Balance 786.666 ml 250 ml Intake Free Water 180 ml 100 ml IV Total 366.666 ml Tube Feeding 720 ml 660 ml Other 60 ml Output Urine Total 480 ml 570 ml Laboratory Tests 10/07/19 03:42: White Blood Count 13.1H, Red Blood Count 3.48L, Hemoglobin 9.0L, Hematocrit 28.0L, Mean Corpuscular Volume 81, Mean Corpuscular Hemoglobin 25.9L, Mean Corpuscular Hemoglobin Concent 32.2, Red Cell Distribution Width 17.1H, Platelet Count 440, Mean Platelet Volume 5.1L, Neutrophils (%) (Auto) 69.5, Lymphocytes (%) (Auto) 20.2, Monocytes (%) (Auto) 6.1, Eosinophils (%) (Auto) 3.5H, Basophils (%) (Auto) 0.8, Sodium Level 138, Potassium Level 4.6, Chloride Level 102, Carbon Dioxide Level 26, Anion Gap 10, Blood Urea Nitrogen 24H, Creatinine 1.0, Estimat Glomerular Filtration Rate > 60, Glucose Level 108H, Calcium Level 9.0 Height (Feet): 5 Height (Inches): 11.00 Weight (Pounds): 144 General Appearance: no apparent distress EENT: normal ENT inspection Neck: supple Cardiovascular: normal rate Respiratory/Chest: decreased breath sounds Abdomen: normal bowel sounds, non tender, soft Extremities: non-tender Darrick Rosario MD October 07, 2019 10:28
--- NOTE | 2019-10-07 10:32 | Infectious Diseases Prog Note ---
Assessment/Plan Assessment/Plan 09/23 SP asystole cardiac arrest VDRF 09/23 Fever; SP Mild leukocytosis, improving Probable UTI -10/01 Bcx NTD u/a wbc tnct; ucx 30-40k C.albicans PNA VDRF, sp intubation 09/08, sp extubation 09/18, re-intubated 09/23 SARS-CoV neg x3 (09/06, 09/08, 09/30) MRSA screen pos 10/05 CXR: Focal patchy infiltrate in the left suprahilar region, not evident previously. Slightly increased small right pleural effusion. Obscured left hemidiaphragm, likely retrocardiac consolidation and/or left pleural fluid , unchanged Stable cardiomegaly 10/02 CXR: Increasing pleural fluid and possibly parenchymal consolidation at the right lung base. Unchanged left basilar pleural and parenchymal disease. sp cx PSA (hensley S), P. stuarti (R. cefepime, ancef, levaquin; S zosyn, ertapenem) 09/30 CXR: Patchy opacities throughout the right lung left mid and lower lung, similar to slightly increased. Possible small bilateral pleural effusions. 09/29 CXR: Increasing right mid and lower lung opacity, may indicate increasing pleural fluid, increasing infiltrate, or both. 09/28 CXR: Developing hazy right basilar opacity. This could represent reaching layering pleural fluid. This could also represent reexpansion pulmonary edema given recent high-volume thoracentesis, or could represent developing ammonia or pulmonary edema. Hazy left basilar opacity, unchanged, may reflect parenchymal infiltrate versus pleural fluid versus both 09/25 CXR: Large right pleural effusion is again demonstrated. Small left pleural effusion is again demonstrated. Left lung is otherwise clear. sp cx PsA (R zozyn, S levo, gentamycin) 09/24 CXR: Moderate size right pleural effusion with right upper and lower lobe atelectasis/consolidation, as well as mild pulmonary edema.. 09/17 CXR: Similar bilateral interstitial prominence, greater on the right.Stable right perihilar, mid and lower lung opacities. Similar left lung base opacity. Small left pleural effusion is stable. Loculated right pleural effusion is stable. No pneumothorax. CXR: Right pleural effusion, also demonstrated on prior 08/09/2019 exam, slightly increased. Hazy right lung parenchymal opacity probably represents a superimposed pleural fluid but infiltrate also possible. 09/06 sp cx: PSA (hensley S) and proteus (hensley S) R pleural effusion, exudative -09/18 SP thorancetesis; removal of 2050 mL fluid; Fluid prot 5 (serum prot 7.2 ); cx Neg QTc 419 RAMAN, improving DM HTN CVA Dementia Nonverbal G tube Plan: Switch Levaquin #7 to Meropenem 10/05 SP IV Vancomycin #6 09/19 SPcefepime # 09/09 SP vanc #4 ( Cr increased) ICU care monitor temp and CBC COVID neg x3 sp cx DW RN Thank you for this consult. [facility] will continue to follow the patient with you. Subjective Allergies: Coded Allergies: PENICILLINS (Verified Allergy, Unknown, 10/27/18) tolretas cephalosporins Subjective afebrile Fio2 40% mild leukocytosis Objective Vital Signs Last 24 Hour Vital Signs Date Time Temp Pulse Resp B/P (MAP) Pulse Ox O2 Delivery O2 Flow Rate FiO2 10/07/19 10:00 83 17 131/63 (85) 100 10/07/19 09:12 98.0 82 35 142/66 (91) 98 10/07/19 08:51 82 27 40 10/07/19 08:50 87 19 40 10/07/19 08:18 85 123/61 10/07/19 08:00 40 10/07/19 08:00 85 10/07/19 08:00 85 15 123/61 (81) 89 10/07/19 08:00 Mechanical Ventilator 10/07/19 07:00 84 14 127/51 (76) 10/07/19 06:45 83 16 40 10/07/19 06:30 93 19 10/07/19 06:00 83 14 113/53 (73) 100 10/07/19 05:00 84 15 124/65 (84) 100 10/07/19 04:52 80 18 40 10/07/19 04:00 40 10/07/19 04:00 Mechanical Ventilator 10/07/19 04:00 84 23 115/63 (80) 99 10/07/19 04:00 81 10/07/19 03:00 84 23 115/63 (80) 99 10/07/19 02:58 82 15 40 10/07/19 02:00 75 15 112/58 (76) 100 10/07/19 01:33 79 16 40 10/07/19 01:00 81 20 119/54 (75) 100 10/07/19 00:00 86 10/07/19 00:00 Mechanical Ventilator 10/07/19 00:00 99.1 81 13 115/54 (74) 100 10/06/19 23:00 87 14 105/56 (72) 100 10/06/19 22:38 87 23 40 10/06/19 22:00 82 24 134/56 (82) 100 10/06/19 21:00 77 15 109/54 (72) 100 10/06/19 20:43 76 16 40 10/06/19 20:43 82 114/57 10/06/19 20:00 40 10/06/19 20:00 79 10/06/19 20:00 98.6 76 15 115/52 (73) 100 10/06/19 20:00 Mechanical Ventilator 10/06/19 19:00 82 22 114/57 (76) 100 10/06/19 18:57 79 16 40 10/06/19 18:00 87 17 136/48 (77) 100 10/06/19 17:10 80 16 40 10/06/19 17:05 81 18 108/53 (71) 93 10/06/19 16:00 98.0 88 21 133/69 (90) 96 10/06/19 16:00 40 10/06/19 16:00 Mechanical Ventilator 10/06/19 16:00 85 10/06/19 15:00 77 18 115/59 (77) 99 10/06/19 14:00 76 16 115/58 (77) 79 10/06/19 13:00 78 18 128/57 (80) 92 10/06/19 12:50 79 15 40 10/06/19 12:00 79 10/06/19 12:00 98.4 77 17 128/51 (76) 81 10/06/19 12:00 Mechanical Ventilator 10/06/19 12:00 40 10/06/19 11:00 77 16 119/56 (77) 97 10/06/19 10:55 78 15 40 Height (Feet): 5 Height (Inches): 11.00 Weight (Pounds): 144 Objective Gen: NAD. well nourished HEENT: ETT. oral secretions Resp: coarse. equal chest rise. regular rate and rhythm. Abd: Soft. no TTP. nondistended. G tube site c/d/i. Neuro: opens eyes to voice and follows simple commands Laboratory Tests Test 10/07/19 03:42 White Blood Count 13.1 K/UL (4.8-10.8) H Red Blood Count 3.48 M/UL (4.70-6.10) L Hemoglobin 9.0 G/DL (14.2-18.0) L Hematocrit 28.0 % (42.0-52.0) L Mean Corpuscular Volume 81 FL (80-99) Mean Corpuscular Hemoglobin 25.9 PG (27.0-31.0) L Mean Corpuscular Hemoglobin Concent 32.2 G/DL (32.0-36.0) Red Cell Distribution Width 17.1 % (11.6-14.8) H Platelet Count 440 K/UL (150-450) Mean Platelet Volume 5.1 FL (6.5-10.1) L Neutrophils (%) (Auto) 69.5 % (45.0-75.0) Lymphocytes (%) (Auto) 20.2 % (20.0-45.0) Monocytes (%) (Auto) 6.1 % (1.0-10.0) Eosinophils (%) (Auto) 3.5 % (0.0-3.0) H Basophils (%) (Auto) 0.8 % (0.0-2.0) Sodium Level 138 MMOL/L (136-145) Potassium Level 4.6 MMOL/L (3.5-5.1) Chloride Level 102 MMOL/L (98-107) Carbon Dioxide Level 26 MMOL/L (21-32) Anion Gap 10 mmol/L (5-15) Blood Urea Nitrogen 24 mg/dL (7-18) H Creatinine 1.0 MG/DL (0.55-1.30) Estimat Glomerular Filtration Rate > 60 mL/min (>60) Glucose Level 108 MG/DL (74-106) H Calcium Level 9.0 MG/DL (8.5-10.1) Current Medications Medications (Trade) Dose Ordered Sig/Kike Route PRN Reason Start Time Stop Time Status Last Admin Dose Admin Amlodipine Besylate (Norvasc) 5 mg BID@0900,2100 NG 09/24/19 21:00 10/22/19 08:59 10/07/19 08:18 Docusate Sodium (Colace) 100 mg TID GT 10/05/19 13:00 11/03/19 08:59 10/07/19 08:17 Heparin Sodium (Porcine) (Heparin 5000 units/ml) 5,000 units EVERY 12 HOURS SUBQ 09/24/19 09:00 10/22/19 08:59 10/07/19 08:18 Lansoprazole (Prevacid) 30 mg DAILY GT 10/04/19 09:00 11/03/19 08:59 10/07/19 08:17 Levofloxacin (Levaquin) 750 mg DAILY ORAL 09/30/19 13:00 10/07/19 12:59 10/07/19 08:17 Quetiapine Fumarate (SEROqueL) 25 mg Q8H PRN NG Agitation 09/24/19 02:35 10/30/19 02:34 10/06/19 22:26 Sennosides (Senokot) 8.6 mg DAILY PRN ORAL Constipation 10/06/19 10:15 11/05/19 10:14 Danielle Roach M.D. October 07, 2019 10:32
--- NOTE | 2019-10-07 10:40 | Pulmonolgy Critical Care Note ---
Critical Care - Asmt/Plan Problems: (1) Acute respiratory failure (2) Pleural effusion Assessment & Plan: s/p thoracentesis times 2 (3) Nosocomial pneumonia (4) Sepsis (5) Squamous cell esophageal cancer (6) Diabetes mellitus (7) Severe malnutrition (8) Alzheimer's dementia (9) History of CVA (cerebrovascular accident) (10) Feeding by G-tube Respiratory: monitor respiratory rate, adjust FIO2, CXR Cardiac: continue to monitor HR/BP Renal: F/U I&O, keep IV fluid Infectious Disease: check cultures Gastrointestinal: continue feedings/current rate Endocrine: monitor blood sugar, continue sliding scale insulin Hematologic: transfuse if hgb<8.5 Neurologic: PRN Ativan, keep patient comfortable Prophylaxis: Protonix Disposition: keep in ICU Notes Reviewed: cardio, 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 with: nurses, consultants, telephonic case manager, family member - will try to get hold of the pt's niece to discuss the plan of care. Critical Care - Objective Last 24 Hour Vital Signs Date Time Temp Pulse Resp B/P (MAP) Pulse Ox O2 Delivery O2 Flow Rate FiO2 10/07/19 10:00 83 17 131/63 (85) 100 10/07/19 09:51 80 17 40 10/07/19 09:50 100 10/07/19 09:12 98.0 82 35 142/66 (91) 98 10/07/19 08:51 82 27 40 10/07/19 08:50 87 19 40 10/07/19 08:18 85 123/61 10/07/19 08:00 40 10/07/19 08:00 85 10/07/19 08:00 85 15 123/61 (81) 89 10/07/19 08:00 Mechanical Ventilator 10/07/19 07:00 84 14 127/51 (76) 10/07/19 06:45 83 16 40 10/07/19 06:30 93 19 10/07/19 06:00 83 14 113/53 (73) 100 10/07/19 05:00 84 15 124/65 (84) 100 10/07/19 04:52 80 18 40 10/07/19 04:00 40 10/07/19 04:00 Mechanical Ventilator 10/07/19 04:00 84 23 115/63 (80) 99 10/07/19 04:00 81 10/07/19 03:00 84 23 115/63 (80) 99 10/07/19 02:58 82 15 40 10/07/19 02:00 75 15 112/58 (76) 100 10/07/19 01:33 79 16 40 10/07/19 01:00 81 20 119/54 (75) 100 10/07/19 00:00 86 10/07/19 00:00 Mechanical Ventilator 10/07/19 00:00 99.1 81 13 115/54 (74) 100 10/06/19 23:00 87 14 105/56 (72) 100 10/06/19 22:38 87 23 40 10/06/19 22:00 82 24 134/56 (82) 100 10/06/19 21:00 77 15 109/54 (72) 100 10/06/19 20:43 76 16 40 10/06/19 20:43 82 114/57 10/06/19 20:00 40 10/06/19 20:00 79 10/06/19 20:00 98.6 76 15 115/52 (73) 100 10/06/19 20:00 Mechanical Ventilator 10/06/19 19:00 82 22 114/57 (76) 100 10/06/19 18:57 79 16 40 10/06/19 18:00 87 17 136/48 (77) 100 10/06/19 17:10 80 16 40 10/06/19 17:05 81 18 108/53 (71) 93 10/06/19 16:00 98.0 88 21 133/69 (90) 96 10/06/19 16:00 40 10/06/19 16:00 Mechanical Ventilator 10/06/19 16:00 85 10/06/19 15:00 77 18 115/59 (77) 99 10/06/19 14:00 76 16 115/58 (77) 79 10/06/19 13:00 78 18 128/57 (80) 92 10/06/19 12:50 79 15 40 10/06/19 12:00 79 10/06/19 12:00 98.4 77 17 128/51 (76) 81 10/06/19 12:00 Mechanical Ventilator 10/06/19 12:00 40 10/06/19 11:00 77 16 119/56 (77) 97 10/06/19 10:55 78 15 40 Status: awake Condition: critical HEENT: atraumatic Neck: full ROM Lungs: rales, rhonchi Heart: HR/BP stable Abdomen: soft, active bowel sounds, feeding tube Extremities: edema Critical Care - Subjective ROS Limited/Unobtainable: Yes Condition: critical EKG Rhythm: Sinus Rhythm FI02: 40 Vent Support Breath Rate: 12 Vent Support Mode: AC Vent Tidal Volume: 550 Sputum Amount: Small PEEP: 5.0 PIP: 29 Tube Feeding Amount: 60 I&O: Intake and Output 10/06/19 10/07/19 19:00 07:00 Intake Total 1266.666 ml 820 ml Output Total 480 ml 570 ml Balance 786.666 ml 250 ml Intake Free Water 180 ml 100 ml IV Total 366.666 ml Tube Feeding 720 ml 660 ml Other 60 ml Output Urine Total 480 ml 570 ml ET-Tube: 7.5 ET Position: 26 Labs: Laboratory Tests Test 10/07/19 03:42 White Blood Count 13.1 K/UL (4.8-10.8) H Red Blood Count 3.48 M/UL (4.70-6.10) L Hemoglobin 9.0 G/DL (14.2-18.0) L Hematocrit 28.0 % (42.0-52.0) L Mean Corpuscular Volume 81 FL (80-99) Mean Corpuscular Hemoglobin 25.9 PG (27.0-31.0) L Mean Corpuscular Hemoglobin Concent 32.2 G/DL (32.0-36.0) Red Cell Distribution Width 17.1 % (11.6-14.8) H Platelet Count 440 K/UL (150-450) Mean Platelet Volume 5.1 FL (6.5-10.1) L Neutrophils (%) (Auto) 69.5 % (45.0-75.0) Lymphocytes (%) (Auto) 20.2 % (20.0-45.0) Monocytes (%) (Auto) 6.1 % (1.0-10.0) Eosinophils (%) (Auto) 3.5 % (0.0-3.0) H Basophils (%) (Auto) 0.8 % (0.0-2.0) Sodium Level 138 MMOL/L (136-145) Potassium Level 4.6 MMOL/L (3.5-5.1) Chloride Level 102 MMOL/L (98-107) Carbon Dioxide Level 26 MMOL/L (21-32) Anion Gap 10 mmol/L (5-15) Blood Urea Nitrogen 24 mg/dL (7-18) H Creatinine 1.0 MG/DL (0.55-1.30) Estimat Glomerular Filtration Rate > 60 mL/min (>60) Glucose Level 108 MG/DL (74-106) H Calcium Level 9.0 MG/DL (8.5-10.1) Vania Hui MD October 07, 2019 10:40
--- NOTE | 2019-10-07 11:47 | Surgery Progress Note ---
Surgery Progress Note Subjective Additional Comments labs reviewed imaging noted ill appearing prognosis guarded Objective Last 24 Hour Vital Signs Date Time Temp Pulse Resp B/P (MAP) Pulse Ox O2 Delivery O2 Flow Rate FiO2 10/07/19 10:00 83 17 131/63 (85) 100 10/07/19 09:51 80 17 40 10/07/19 09:50 100 10/07/19 09:12 98.0 82 35 142/66 (91) 98 10/07/19 08:51 82 27 40 10/07/19 08:50 87 19 40 10/07/19 08:18 85 123/61 10/07/19 08:00 40 10/07/19 08:00 85 10/07/19 08:00 85 15 123/61 (81) 89 10/07/19 08:00 Mechanical Ventilator 10/07/19 07:00 84 14 127/51 (76) 10/07/19 06:45 83 16 40 10/07/19 06:30 93 19 10/07/19 06:00 83 14 113/53 (73) 100 10/07/19 05:00 84 15 124/65 (84) 100 10/07/19 04:52 80 18 40 10/07/19 04:00 40 10/07/19 04:00 Mechanical Ventilator 10/07/19 04:00 84 23 115/63 (80) 99 10/07/19 04:00 81 10/07/19 03:00 84 23 115/63 (80) 99 10/07/19 02:58 82 15 40 10/07/19 02:00 75 15 112/58 (76) 100 10/07/19 01:33 79 16 40 10/07/19 01:00 81 20 119/54 (75) 100 10/07/19 00:00 86 10/07/19 00:00 Mechanical Ventilator 10/07/19 00:00 99.1 81 13 115/54 (74) 100 10/06/19 23:00 87 14 105/56 (72) 100 10/06/19 22:38 87 23 40 10/06/19 22:00 82 24 134/56 (82) 100 10/06/19 21:00 77 15 109/54 (72) 100 10/06/19 20:43 76 16 40 10/06/19 20:43 82 114/57 10/06/19 20:00 40 10/06/19 20:00 79 10/06/19 20:00 98.6 76 15 115/52 (73) 100 10/06/19 20:00 Mechanical Ventilator 10/06/19 19:00 82 22 114/57 (76) 100 10/06/19 18:57 79 16 40 10/06/19 18:00 87 17 136/48 (77) 100 10/06/19 17:10 80 16 40 10/06/19 17:05 81 18 108/53 (71) 93 10/06/19 16:00 98.0 88 21 133/69 (90) 96 10/06/19 16:00 40 10/06/19 16:00 Mechanical Ventilator 10/06/19 16:00 85 10/06/19 15:00 77 18 115/59 (77) 99 10/06/19 14:00 76 16 115/58 (77) 79 10/06/19 13:00 78 18 128/57 (80) 92 10/06/19 12:50 79 15 40 10/06/19 12:00 79 10/06/19 12:00 98.4 77 17 128/51 (76) 81 10/06/19 12:00 Mechanical Ventilator 10/06/19 12:00 40 I&O Intake and Output 10/06/19 10/07/19 19:00 07:00 Intake Total 1266.666 ml 820 ml Output Total 480 ml 570 ml Balance 786.666 ml 250 ml Intake Free Water 180 ml 100 ml IV Total 366.666 ml Tube Feeding 720 ml 660 ml Other 60 ml Output Urine Total 480 ml 570 ml Dressing: other Wound: other Drains: other Cardiovascular: RSR, other Respiratory: decreased breath sounds Abdomen: soft, present bowel sounds Extremities: no cyanosis Laboratory Tests Test 10/07/19 03:42 White Blood Count 13.1 K/UL (4.8-10.8) H Red Blood Count 3.48 M/UL (4.70-6.10) L Hemoglobin 9.0 G/DL (14.2-18.0) L Hematocrit 28.0 % (42.0-52.0) L Mean Corpuscular Volume 81 FL (80-99) Mean Corpuscular Hemoglobin 25.9 PG (27.0-31.0) L Mean Corpuscular Hemoglobin Concent 32.2 G/DL (32.0-36.0) Red Cell Distribution Width 17.1 % (11.6-14.8) H Platelet Count 440 K/UL (150-450) Mean Platelet Volume 5.1 FL (6.5-10.1) L Neutrophils (%) (Auto) 69.5 % (45.0-75.0) Lymphocytes (%) (Auto) 20.2 % (20.0-45.0) Monocytes (%) (Auto) 6.1 % (1.0-10.0) Eosinophils (%) (Auto) 3.5 % (0.0-3.0) H Basophils (%) (Auto) 0.8 % (0.0-2.0) Sodium Level 138 MMOL/L (136-145) Potassium Level 4.6 MMOL/L (3.5-5.1) Chloride Level 102 MMOL/L (98-107) Carbon Dioxide Level 26 MMOL/L (21-32) Anion Gap 10 mmol/L (5-15) Blood Urea Nitrogen 24 mg/dL (7-18) H Creatinine 1.0 MG/DL (0.55-1.30) Estimat Glomerular Filtration Rate > 60 mL/min (>60) Glucose Level 108 MG/DL (74-106) H Calcium Level 9.0 MG/DL (8.5-10.1) Plan Problems: (1) UTI (urinary tract infection) (2) Acute respiratory failure Assessment & Plan: There is infiltrate suspected in the right perihilar region obscuring the right hilum. There is a hazy opacity that may partially be accounted for by pleural fluid on the right. Reticular densities are present on the left in the perihilar aspect of the lung. Endotracheal tube is in good position just above the anselmo. Heart size is normal. IMPRESSION: Suspected perihilar airspace disease in the right lung suspicious for pneumonia. Reticular nodular infiltrate in the left lung noted also. Right pleural effusion suspected. Endotracheal tube in good position cont vents support Lungs: Similar bilateral interstitial prominence, greater on the right. Stable right perihilar, mid and lower lung opacities. Similar left lung base opacity. Pleural space: Small left pleural effusion is stable. Loculated right pleural effusion is stable. No pneumothorax. Heart: Unremarkable. No cardiomegaly. Mediastinum: Unremarkable. Bones/joints: Unremarkable. Tubes, lines and devices: Endotracheal tube has been pulled back and is 10 cm above the anselmo near the thoracic inlet. IMPRESSION: Endotracheal tube has been pulled back and is 10 cm above the anselmo near the thoracic inlet. Remainder findings are stable. may need thoracentesis soon Moderate size right pleural effusion with right upper and lower lobe atelectasis/consolidation, as well as mild pulmonary edema.. 1. Patchy opacities throughout the right lung left mid and lower lung, similar to slightly increased. Possible small bilateral pleural effusions. 2. Endotracheal tube terminates in the region of the lower thoracic trachea above the anselmo. consider trach (3) Sepsis Assessment & Plan: Pt cachetic and presented on admission with multiple pressure injuries. Partial thickness pressure injury Cleft of L ear(L)1.2cm x (W)0.4cm. Base of wound moist and viable with small amt sanguineous exudate. Partial thickness pressure injury cleft of R ear(L)0.5cm x (W)0.7cm. Base of wound moist and viable Periwound erythematous.Small amt sanguineous exudate noted. Sacral DTPI(L)5cm x (W)10.5cm. Base of injury is purple with maroon borders. Coccygeal bony protrusion with darker skin tone, and small opening noted to R gluteus (L)0.5cm x (W)0.5cm within base of injury. No further skin breakdown periwound. Intact blood blister noted to R 1st metatarsal head(L)1.1cm x (W)2.5cm. DTPI noted to L heel extending into plantar aspect. Base of injury presents as an intact blood filled blister. Periwound is boggy with non-blanching erythema. R heel is boggy but blanchable. wounds unlikely etiology of sepsis respiratory but given current condition high risk for breakdown and worsening will monitor closely discussed with RN and staff great care being provided coded acls intubated in ICU prognosis guarded Tx.Plan: Apply Betadine to clefts of R and L ears. Pad oxygen tubing with gauze and keep oxygen tubing loose. Apply Moisture Barrier Paste to Sacrum. Cover with Optifoam drsg. Change every 3 days and prn. Apply Betadine to L heel. Cover with Optifoam drsg. Change every 3 days and prn. Apply Betadine to R 1st metatarsal head. Cover with Optifoam drsg. Change every 3 days and prn. Apply Cavilon Skin Barrier R heel. Cover with Optifoam drsg. Change every 7 days and prn. Reposition at least every 2hours or as tolerated. Off-load heels with pillow. on air mattress but not very comfortable appearing cont current care / pulm management (4) Severe anemia (5) Nosocomial pneumonia (6) Atrial fibrillation (7) Acute metabolic encephalopathy (8) History of CVA (cerebrovascular accident) (9) Diabetes mellitus (10) Hypothyroidism (11) Alzheimer's dementia (12) PVC (premature ventricular contraction) (13) Hypertension (14) Squamous cell esophageal cancer (15) Feeding by G-tube (16) Dehydration (17) Anemia (18) Severe malnutrition Assessment & Plan: DAILY ESTIMATED NEEDS: Needs based on underweight, suspected wt loss, wounds/ 63kg 25-33 kcals/kg 9667-1698 total kcals 1.25-2 g protein/kg 78-126 g total protein 25-30 mL/kg 9184-6194 total fluid mLs NUTRITION DIAGNOSIS: * Swallowing difficulty R/T dysphagia w/ h/o CVA as evidenced by now s/p recent PEG placement (08/08/19), on GT feeds, held at time, s/p code blue (09/07), orally intubated, now extubated. * Increased kcal/prot intake needs R/T suspected significant wt loss and underweight status, wounds as evidenced by 10lbs/6.7% wt loss in 1 month, 76% IBW w/ BMI of 18.4, admitted w/ DTPI wound @ sacrum, Lt heel, partial thickness pressure injury cleft of R L ear. CURRENT TF:Osmolite 1.2 @ 60ml/hr x 22 hrs ENTERAL NUTRITION RECOMMENDATIONS: Osmolite 1.2 @ 60ml/hr x 22 hrs + Prosource x 1 to provide 1320ml, 1584kcal, 73g +11g prot, 1082ml free water - Add Prosource x 1 to meet protein needs - HOLD 1 hr before and after synthroid meds. add Prosource 1 pack daily to better meet est pro needs - Flush per MD/ HOB over 30 degrees WITH ELEV BG, rec TF change to Glucerna 1.2 w/ a goal of 60ml/hr x22 hrs to provide 1320ml, 1584kcal, 79g prot ADDITIONAL RECOMMENDATIONS: * PER SNF: HT=6'1" WT= 139lbs ("August weight" from SNF) -> calibrated bedscale wt * Monitor K, need for TF change (K 5.9 upon adm, now wnl) * Wound care: add Vit C 500mg QD + Wesley 1pkt BID via PEG * Monitor BGs, need for NISS: h/o DM per MD (checking A1C not suggested given low hgb) (19) Encounter for PEG (percutaneous endoscopic gastrostomy) (20) At high risk for aspiration (21) Pleural effusion (22) Suspected COVID-19 virus infection Jan Mora October 07, 2019 11:47
[2019-10-07] MEDS: Meropenem 1 GM in NS 55 ML IVPB SCH ×2 (13:25→21:56)
--- NOTE | 2019-10-07 23:10 | Internal Med Progress Note ---
Subjective Physician Name Lamont Hayes Attending Physician Lamont Hayes MD Current Medications Medications (Trade) Dose Ordered Sig/Kike Route PRN Reason Start Time Stop Time Status Last Admin Dose Admin Amlodipine Besylate (Norvasc) 5 mg BID@0900,2100 NG 09/24/19 21:00 10/22/19 08:59 10/07/19 20:08 Docusate Sodium (Colace) 100 mg TID GT 10/05/19 13:00 11/03/19 08:59 10/07/19 17:40 Heparin Sodium (Porcine) (Heparin 5000 units/ml) 5,000 units EVERY 12 HOURS SUBQ 09/24/19 09:00 10/22/19 08:59 10/07/19 20:12 Lansoprazole (Prevacid) 30 mg DAILY GT 10/04/19 09:00 11/03/19 08:59 10/07/19 08:17 Meropenem 1 gm/ Sodium Chloride 55 ml @ 110 mls/hr Q8HR IVPB 10/07/19 14:00 10/12/19 13:59 10/07/19 21:56 Quetiapine Fumarate (SEROqueL) 25 mg Q8H PRN NG Agitation 09/24/19 02:35 10/30/19 02:34 10/07/19 21:56 Sennosides (Senokot) 8.6 mg DAILY PRN ORAL Constipation 10/06/19 10:15 11/05/19 10:14 10/07/19 21:56 Allergies: Coded Allergies: PENICILLINS (Verified Allergy, Unknown, 10/27/18) tolretas cephalosporins Subjective in ICU, intubated, not responsive, unable to open eyes with stimulation.. Objective Last Vital Signs Date Time Temp Pulse Resp B/P (MAP) Pulse Ox O2 Delivery O2 Flow Rate FiO2 10/07/19 22:44 84 18 40 10/07/19 21:00 120/55 (76) 100 10/07/19 20:00 98.9 10/07/19 20:00 Mechanical Ventilator Laboratory Tests Test 10/07/19 03:42 White Blood Count 13.1 K/UL (4.8-10.8) H Red Blood Count 3.48 M/UL (4.70-6.10) L Hemoglobin 9.0 G/DL (14.2-18.0) L Hematocrit 28.0 % (42.0-52.0) L Mean Corpuscular Volume 81 FL (80-99) Mean Corpuscular Hemoglobin 25.9 PG (27.0-31.0) L Mean Corpuscular Hemoglobin Concent 32.2 G/DL (32.0-36.0) Red Cell Distribution Width 17.1 % (11.6-14.8) H Platelet Count 440 K/UL (150-450) Mean Platelet Volume 5.1 FL (6.5-10.1) L Neutrophils (%) (Auto) 69.5 % (45.0-75.0) Lymphocytes (%) (Auto) 20.2 % (20.0-45.0) Monocytes (%) (Auto) 6.1 % (1.0-10.0) Eosinophils (%) (Auto) 3.5 % (0.0-3.0) H Basophils (%) (Auto) 0.8 % (0.0-2.0) Sodium Level 138 MMOL/L (136-145) Potassium Level 4.6 MMOL/L (3.5-5.1) Chloride Level 102 MMOL/L (98-107) Carbon Dioxide Level 26 MMOL/L (21-32) Anion Gap 10 mmol/L (5-15) Blood Urea Nitrogen 24 mg/dL (7-18) H Creatinine 1.0 MG/DL (0.55-1.30) Estimat Glomerular Filtration Rate > 60 mL/min (>60) Glucose Level 108 MG/DL (74-106) H Calcium Level 9.0 MG/DL (8.5-10.1) Intake and Output 10/06/19 10/07/19 19:00 07:00 Intake Total 1266.666 ml 820 ml Output Total 480 ml 570 ml Balance 786.666 ml 250 ml Intake Free Water 180 ml 100 ml IV Total 366.666 ml Tube Feeding 720 ml 660 ml Other 60 ml Output Urine Total 480 ml 570 ml Objective General: not responsive, able to open eyes with deep stimulation, Intubated. HEENT: NCAT, sclera anicteric, PERRL, ET tube. Neck: Supple, no significant jugular venous distention, Lungs: Mechanical Breath sound, Decrease air at bases, no Wheeze or Rales. Heart: Regular rate and rhythm, normal S1/S2, no murmurs, Abdomen: soft, nontender, nondistended. Normoactive bowel sounds, + PEG : Muniz cath. Extremities: No Cyanosis or clubbing , Upper extremities edema. Neuro: unable to move extremities, contracted lower extremities. Skin: warm, no rash. Assessment/Plan Assessment/Plan ASSESSMENT: This is an 84-year-old male with: 1. Acute respiratory failure with right pneumonia. 2. Urinary tract infection. 3. Right pleural effusion. 4. Esophageal mass. 5. Dysphagia. 6. Diabetes. 7. Alzheimer's dementia. 8. Cerebrovascular disease. 9. Hypothyroidism. 10. Seizure disorder. 11. Iron deficiency anemia. 12. sepsis. TREATMENT: 1. Right side Pneumonia. A Pulmonary consultation has been obtained with Dr. Vania Hui. The patient underwent thoracentesis during previous hospitalization. We will follow recommendation of Pulmonary. Abx: Meropenem IV, ID: Dr. Erickson 2. Urinary tract infection. 3. Right pleural effusion. As above, a Pulmonary consultation has been obtained with Dr. Vania Hui. The patient may require thoracentesis during this hospitalization. 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 A Gastroenterology consultation has been obtained with Dr. Darrick Rosario. 5. Dysphagia. The patient is status post PEG placement on 08/08/[address] [facility] by Dr. Darrick Rosario. 6. Diabetes type 2. A NovoLog sliding scale has been instituted. 7. Alzheimer's dementia. 8. Cerebrovascular disease, status post cerebrovascular accident. 9. Hypothyroidism. Continue levothyroxine as above. 10. Seizure disorder. 11. Iron deficiency anemia. Full code DVT Prophylaxis : Heparin SQ weaning trial Switch Levaquin #7 to Meropenem 10/05 SP IV Vancomycin #6 09/19 SPcefepime # 09/09 SP vanc #4 ( Cr increased) Lamont Hayes MD October 07, 2019 23:10
[2019-10-08] VITALS (24 sets, daily range): BP systolic 107–152; BP diastolic 53–77
[2019-10-08] MEDS: Meropenem 1 GM in NS 55 ML IVPB SCH ×3 (06:10→20:45)
--- NOTE | 2019-10-08 07:32 | General Progress Note ---
Assessment/Plan Status: unchanged Assessment/Plan: 1. Esophageal cancer. 2. Dysphagia. 3. Diabetes type 2. 4. Dementia. 5. CVA. 6. Hypothyroidism. 7. Seizure disorder. 8. Iron deficiency anemia. 9. Respiratory failure. 10. Dysphagia with G-tube stable H&H GT has been changed and working well GT flushes dietitian in put appreciated>>> TF Javity subhash abx per id pulm care bowel regimen recent labs and notes reviewed D/W the nurse will fu Subjective ROS Limited/Unobtainable: No Allergies: Coded Allergies: PENICILLINS (Verified Allergy, Unknown, 10/27/18) tolretas cephalosporins Objective Last 24 Hour Vital Signs Date Time Temp Pulse Resp B/P (MAP) Pulse Ox O2 Delivery O2 Flow Rate FiO2 10/08/19 07:00 86 19 126/58 (80) 100 10/08/19 06:46 89 19 40 10/08/19 06:30 87 19 10/08/19 06:00 85 18 122/63 (82) 99 10/08/19 05:00 85 19 136/58 (84) 99 10/08/19 04:46 83 14 40 10/08/19 04:02 85 14 40 10/08/19 04:00 97.8 85 16 132/61 (84) 100 10/08/19 04:00 Mechanical Ventilator 10/08/19 04:00 40 10/08/19 04:00 81 10/08/19 03:00 88 21 127/69 (88) 100 10/08/19 02:00 84 15 107/65 (79) 100 10/08/19 01:00 83 17 128/53 (78) 100 10/08/19 00:39 84 19 40 10/08/19 00:00 82 10/08/19 00:00 40 10/08/19 00:00 99.9 83 17 116/60 (78) 100 10/08/19 00:00 Mechanical Ventilator 10/07/19 23:00 84 18 122/55 (77) 100 10/07/19 22:44 84 18 40 10/07/19 22:00 83 17 113/59 (77) 100 10/07/19 21:00 84 19 120/55 (76) 100 10/07/19 20:56 88 20 40 5/1/20 20:08 85 134/56 10/07/19 20:00 98.9 87 17 134/56 (82) 100 10/07/19 20:00 81 10/07/19 20:00 40 10/07/19 20:00 Mechanical Ventilator 10/07/19 19:00 85 18 40 10/07/19 19:00 85 18 121/61 (81) 100 10/07/19 18:00 89 21 130/69 (89) 100 10/07/19 17:25 84 20 40 10/07/19 17:00 83 19 122/58 (79) 100 10/07/19 16:00 98.6 83 21 113/56 (75) 100 10/07/19 16:00 Mechanical Ventilator 10/07/19 16:00 40 10/07/19 16:00 82 10/07/19 15:10 81 16 40 10/07/19 15:00 81 17 116/56 (76) 100 10/07/19 14:00 82 17 125/49 (74) 98 10/07/19 13:00 84 19 113/67 (82) 99 10/07/19 12:45 84 17 40 10/07/19 12:00 88 10/07/19 12:00 97.5 77 16 129/65 (86) 100 10/07/19 12:00 Mechanical Ventilator 10/07/19 12:00 40 10/07/19 11:00 80 17 137/59 (85) 100 10/07/19 10:00 83 17 131/63 (85) 100 10/07/19 09:51 80 17 40 10/07/19 09:50 100 10/07/19 09:12 98.0 82 35 142/66 (91) 98 10/07/19 08:51 82 27 40 10/07/19 08:50 87 19 40 10/07/19 08:18 85 123/61 10/07/19 08:00 40 10/07/19 08:00 85 10/07/19 08:00 85 15 123/61 (81) 89 10/07/19 08:00 Mechanical Ventilator Intake and Output 10/07/19 10/08/19 19:00 07:00 Intake Total 875 ml 975 ml Output Total 490 ml 460 ml Balance 385 ml 515 ml Intake Free Water 200 ml IV Total 55 ml 55 ml Tube Feeding 720 ml 720 ml Other 100 ml Output Urine Total 490 ml 460 ml Height (Feet): 5 Height (Inches): 11.00 Weight (Pounds): 144 General Appearance: no apparent distress EENT: PERRL/EOMI Neck: supple Cardiovascular: normal rate Respiratory/Chest: decreased breath sounds Abdomen: normal bowel sounds, non tender, soft Extremities: non-tender Darrick Rosario MD October 08, 2019 07:32
[2019-10-08] MEDS: Docusate 100mg/10ml Liq GT SCH ×3 (08:22→17:15)
[2019-10-08] MEDS: Heparin 5000 units/ml inj SUBQ SCH ×2 (08:23→20:47)
--- NOTE | 2019-10-08 09:06 | Pulmonolgy Critical Care Note ---
Critical Care - Asmt/Plan Assessment/Plan: ASSESSMENT Sepsis Acute respiratory failure requiring intubation, s/p extubation 09/19 s/p CP arrest and reintubation 09/23 Failure to wean Pseudomonas and Proteus pneumonia recurrent pleural effusion, s/p thoracentesis 09/18 and 09/27 Acute kidney injury, -secondary to dehydration Suspected COVID 19 infection -ruled out x 2 Hypothyroidism with elevated TSH Severe anemia Transaminitis Dysphagia, feeding by G-tube Cerebrovascular disease with hx of CVA Diabetes mellitus Severe protein calorie malnutrition Multiply pressure injury, present on admission Seizure disorder Alzheimer dementia Anemia PLAN of CARE ICU vent support, pulmonary toilet CXR 09/30 noted, on weaning protocol, continue so far unable to wean fup with CXR and ABG in am s/p 09/[address] effusion - 2050 ml, 09/27 -2300 ml, pleural fluid cx NGT x2 pathology - NGT for malignant cells x2 initial CXR with near complete resolution, no complication HONEY CoV PCR x 2 -NGT; off isolation influenza screen NGT BCX NGT SCX + Pseudomonas, Proteus, repeated SCX 09/25 + Pseudomonas UCX + Abi , likely colonization completed abx as per ID 09/29 started on Levaquin aspiration precautions, GTF , protein supplements as per RD monitor H&H with goal to keep Hgb above 7 BS management trend LFT creat stable avoid nephrotoxics continue Protonix monitor HH at baseline and consider GI eval if further drop elevated D dimer, venous Duplex BLE negative troponin NGT wound care as per surgeon recommendation Synthroid dose uptitrated, repeat TSH in 3 wks supportive care continue discuss with family further GOC case discussed and evaluated by supervising physician Critical Care - Objective Last 24 Hour Vital Signs Date Time Temp Pulse Resp B/P (MAP) Pulse Ox O2 Delivery O2 Flow Rate FiO2 10/08/19 08:22 88 125/56 10/08/19 08:00 40 10/08/19 08:00 98.1 88 20 125/56 (79) 100 10/08/19 08:00 Mechanical Ventilator 10/08/19 07:00 86 19 126/58 (80) 100 10/08/19 06:46 89 19 40 10/08/19 06:30 87 19 10/08/19 06:00 85 18 122/63 (82) 99 10/08/19 05:00 85 19 136/58 (84) 99 10/08/19 04:46 83 14 40 10/08/19 04:02 85 14 40 10/08/19 04:00 97.8 85 16 132/61 (84) 100 10/08/19 04:00 Mechanical Ventilator 10/08/19 04:00 40 10/08/19 04:00 81 10/08/19 03:00 88 21 127/69 (88) 100 10/08/19 02:00 84 15 107/65 (79) 100 10/08/19 01:00 83 17 128/53 (78) 100 10/08/19 00:39 84 19 40 10/08/19 00:00 82 10/08/19 00:00 40 10/08/19 00:00 99.9 83 17 116/60 (78) 100 10/08/19 00:00 Mechanical Ventilator 10/07/19 23:00 84 18 122/55 (77) 100 10/07/19 22:44 84 18 40 10/07/19 22:00 83 17 113/59 (77) 100 10/07/19 21:00 84 19 120/55 (76) 100 10/07/19 20:56 88 20 40 10/07/19 20:08 85 134/56 10/07/19 20:00 98.9 87 17 134/56 (82) 100 10/07/19 20:00 81 10/07/19 20:00 40 10/07/19 20:00 Mechanical Ventilator 10/07/19 19:00 85 18 40 10/07/19 19:00 85 18 121/61 (81) 100 10/07/19 18:00 89 21 130/69 (89) 100 10/07/19 17:25 84 20 40 10/07/19 17:00 83 19 122/58 (79) 100 10/07/19 16:00 98.6 83 21 113/56 (75) 100 10/07/19 16:00 Mechanical Ventilator 10/07/19 16:00 40 10/07/19 16:00 82 10/07/19 15:10 81 16 40 10/07/19 15:00 81 17 116/56 (76) 100 10/07/19 14:00 82 17 125/49 (74) 98 10/07/19 13:00 84 19 113/67 (82) 99 10/07/19 12:45 84 17 40 10/07/19 12:00 88 10/07/19 12:00 97.5 77 16 129/65 (86) 100 10/07/19 12:00 Mechanical Ventilator 10/07/19 12:00 40 10/07/19 11:00 80 17 137/59 (85) 100 10/07/19 10:00 83 17 131/63 (85) 100 10/07/19 09:51 80 17 40 10/07/19 09:50 100 10/07/19 09:12 98.0 82 35 142/66 (91) 98 Objective: Condition: critical, intubated HEENT: atraumatic, normocephalic, OP with ET in place, intact Lungs: overall clear Heart: HR/BP stable Abdomen: soft, active bowel sounds, G tube Extremities: no C/C/E Critical Care - Subjective ROS Limited/Unobtainable: Yes Interval Events: remains intubated, failing weaning leukocytosis, no fevers Condition: critical IV Access: peripheral EKG Rhythm: Sinus Rhythm FI02: 40 Vent Support Breath Rate: 12 Vent Support Mode: AC Vent Tidal Volume: 550 Sputum Amount: Small PEEP: 5.0 PIP: 34 Secretions: moderate amount, thite color, thick consistency Tube Feeding Amount: 60 I&O: Intake and Output 10/07/19 10/08/19 19:00 07:00 Intake Total 875 ml 975 ml Output Total 490 ml 460 ml Balance 385 ml 515 ml Intake Free Water 200 ml IV Total 55 ml 55 ml Tube Feeding 720 ml 720 ml Other 100 ml Output Urine Total 490 ml 460 ml CXR: CXR 10/05 Right mid and lower lung opacity, likely combination of pleural fluid and parenchymal consolidation, appearing slightly improved over 2 days. Obscured left hemidiaphragm, may reflect increasing pleural fluid on the left. ET-Tube: 7.5 ET Position: 26 Miranda Pimentel MOTORIZED SQUAD LIEUTENANT October 08, 2019 09:06
--- NOTE | 2019-10-08 10:34 | Surgery Progress Note ---
Surgery Progress Note Subjective Additional Comments leukocytosis 13k tolerating tube feeds pep 5 fi02 40% minimal responsive Objective Last 24 Hour Vital Signs Date Time Temp Pulse Resp B/P (MAP) Pulse Ox O2 Delivery O2 Flow Rate FiO2 10/08/19 10:00 88 18 123/65 (84) 100 10/08/19 09:11 92 26 40 10/08/19 09:00 90 19 126/57 (80) 99 10/08/19 08:22 88 125/56 10/08/19 08:00 40 10/08/19 08:00 98.1 88 20 125/56 (79) 100 10/08/19 08:00 Mechanical Ventilator 10/08/19 08:00 89 10/08/19 07:00 86 19 126/58 (80) 100 10/08/19 06:46 89 19 40 10/08/19 06:30 87 19 10/08/19 06:00 85 18 122/63 (82) 99 10/08/19 05:00 85 19 136/58 (84) 99 10/08/19 04:46 83 14 40 10/08/19 04:02 85 14 40 10/08/19 04:00 97.8 85 16 132/61 (84) 100 10/08/19 04:00 Mechanical Ventilator 10/08/19 04:00 40 10/08/19 04:00 81 10/08/19 03:00 88 21 127/69 (88) 100 10/08/19 02:00 84 15 107/65 (79) 100 10/08/19 01:00 83 17 128/53 (78) 100 10/08/19 00:39 84 19 40 10/08/19 00:00 82 10/08/19 00:00 40 10/08/19 00:00 99.9 83 17 116/60 (78) 100 10/08/19 00:00 Mechanical Ventilator 10/07/19 23:00 84 18 122/55 (77) 100 10/07/19 22:44 84 18 40 10/07/19 22:00 83 17 113/59 (77) 100 10/07/19 21:00 84 19 120/55 (76) 100 10/07/19 20:56 88 20 40 10/07/19 20:08 85 134/56 10/07/19 20:00 98.9 87 17 134/56 (82) 100 10/07/19 20:00 81 10/07/19 20:00 40 10/07/19 20:00 Mechanical Ventilator 10/07/19 19:00 85 18 40 10/07/19 19:00 85 18 121/61 (81) 100 10/07/19 18:00 89 21 130/69 (89) 100 10/07/19 17:25 84 20 40 10/07/19 17:00 83 19 122/58 (79) 100 10/07/19 16:00 98.6 83 21 113/56 (75) 100 10/07/19 16:00 Mechanical Ventilator 10/07/19 16:00 40 10/07/19 16:00 82 10/07/19 15:10 81 16 40 10/07/19 15:00 81 17 116/56 (76) 100 10/07/19 14:00 82 17 125/49 (74) 98 10/07/19 13:00 84 19 113/67 (82) 99 10/07/19 12:45 84 17 40 10/07/19 12:00 88 10/07/19 12:00 97.5 77 16 129/65 (86) 100 10/07/19 12:00 Mechanical Ventilator 10/07/19 12:00 40 10/07/19 11:00 80 17 137/59 (85) 100 I&O Intake and Output 10/07/19 10/08/19 19:00 07:00 Intake Total 875 ml 975 ml Output Total 490 ml 460 ml Balance 385 ml 515 ml Intake Free Water 200 ml IV Total 55 ml 55 ml Tube Feeding 720 ml 720 ml Other 100 ml Output Urine Total 490 ml 460 ml Dressing: other Wound: other Drains: other Cardiovascular: RSR Respiratory: decreased breath sounds Abdomen: soft, non-tender, present bowel sounds Extremities: no cyanosis Plan Problems: (1) UTI (urinary tract infection) (2) Acute respiratory failure Assessment & Plan: There is infiltrate suspected in the right perihilar region obscuring the right hilum. There is a hazy opacity that may partially be accounted for by pleural fluid on the right. Reticular densities are present on the left in the perihilar aspect of the lung. Endotracheal tube is in good position just above the anselmo. Heart size is normal. IMPRESSION: Suspected perihilar airspace disease in the right lung suspicious for pneumonia. Reticular nodular infiltrate in the left lung noted also. Right pleural effusion suspected. Endotracheal tube in good position cont vents support Lungs: Similar bilateral interstitial prominence, greater on the right. Stable right perihilar, mid and lower lung opacities. Similar left lung base opacity. Pleural space: Small left pleural effusion is stable. Loculated right pleural effusion is stable. No pneumothorax. Heart: Unremarkable. No cardiomegaly. Mediastinum: Unremarkable. Bones/joints: Unremarkable. Tubes, lines and devices: Endotracheal tube has been pulled back and is 10 cm above the anselmo near the thoracic inlet. IMPRESSION: Endotracheal tube has been pulled back and is 10 cm above the anselmo near the thoracic inlet. Remainder findings are stable. may need thoracentesis soon Moderate size right pleural effusion with right upper and lower lobe atelectasis/consolidation, as well as mild pulmonary edema.. 1. Patchy opacities throughout the right lung left mid and lower lung, similar to slightly increased. Possible small bilateral pleural effusions. 2. Endotracheal tube terminates in the region of the lower thoracic trachea above the anselmo. consider trach (3) Sepsis Assessment & Plan: Pt cachetic and presented on admission with multiple pressure injuries. Partial thickness pressure injury Cleft of L ear(L)1.2cm x (W)0.4cm. Base of wound moist and viable with small amt sanguineous exudate. Partial thickness pressure injury cleft of R ear(L)0.5cm x (W)0.7cm. Base of wound moist and viable Periwound erythematous.Small amt sanguineous exudate noted. Sacral DTPI(L)5cm x (W)10.5cm. Base of injury is purple with maroon borders. Coccygeal bony protrusion with darker skin tone, and small opening noted to R gluteus (L)0.5cm x (W)0.5cm within base of injury. No further skin breakdown periwound. Intact blood blister noted to R 1st metatarsal head(L)1.1cm x (W)2.5cm. DTPI noted to L heel extending into plantar aspect. Base of injury presents as an intact blood filled blister. Periwound is boggy with non-blanching erythema. R heel is boggy but blanchable. wounds unlikely etiology of sepsis respiratory but given current condition high risk for breakdown and worsening will monitor closely discussed with RN and staff great care being provided coded acls intubated in ICU prognosis guarded Tx.Plan: Apply Betadine to clefts of R and L ears. Pad oxygen tubing with gauze and keep oxygen tubing loose. Apply Moisture Barrier Paste to Sacrum. Cover with Optifoam drsg. Change every 3 days and prn. Apply Betadine to L heel. Cover with Optifoam drsg. Change every 3 days and prn. Apply Betadine to R 1st metatarsal head. Cover with Optifoam drsg. Change every 3 days and prn. Apply Cavilon Skin Barrier R heel. Cover with Optifoam drsg. Change every 7 days and prn. Reposition at least every 2hours or as tolerated. Off-load heels with pillow. 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 * Increased kcal/prot intake needs R/T suspected significant wt loss and underweight status, wounds as evidenced by 10lbs/6.7% wt loss in 1 month, 76% IBW w/ BMI of 18.4, admitted w/ DTPI wound @ sacrum, Lt heel, partial thickness pressure injury cleft of R L ear. CURRENT TF:Osmolite 1.2 @ 60ml/hr x 22 hrs ENTERAL NUTRITION RECOMMENDATIONS: Osmolite 1.2 @ 60ml/hr x 22 hrs + Prosource x 1 to provide 1320ml, 1584kcal, 73g +11g prot, 1082ml free water - Add Prosource x 1 to meet protein needs - HOLD 1 hr before and after synthroid meds. add Prosource 1 pack daily to better meet est pro needs - Flush per MD/ HOB over 30 degrees WITH ELEV BG, rec TF change to Glucerna 1.2 w/ a goal of 60ml/hr x22 hrs to provide 1320ml, 1584kcal, 79g prot ADDITIONAL RECOMMENDATIONS: * PER SNF: HT=6'1" WT= 139lbs ("August weight" from SNF) -> calibrated bedscale wt * Monitor K, need for TF change (K 5.9 upon adm, now wnl) * Wound care: add Vit C 500mg QD + Wesley 1pkt BID via PEG * Monitor BGs, need for NISS: h/o DM per MD (checking A1C not suggested given low hgb) (19) Encounter for PEG (percutaneous endoscopic gastrostomy) (20) At high risk for aspiration (21) Pleural effusion (22) Suspected COVID-19 virus infection Jan Mora October 08, 2019 10:34
--- NOTE | 2019-10-08 13:00 | Internal Med Progress Note ---
Subjective Date of Service: October 08, 2019 Physician Name Xander Bah Attending Physician Lamont Hayes MD Current Medications Medications (Trade) Dose Ordered Sig/Kike Route PRN Reason Start Time Stop Time Status Last Admin Dose Admin Amlodipine Besylate (Norvasc) 5 mg BID@0900,2100 NG 09/24/19 21:00 10/22/19 08:59 10/08/19 08:22 Docusate Sodium (Colace) 100 mg TID GT 10/05/19 13:00 11/03/19 08:59 10/08/19 12:43 Heparin Sodium (Porcine) (Heparin 5000 units/ml) 5,000 units EVERY 12 HOURS SUBQ 09/24/19 09:00 10/22/19 08:59 10/08/19 08:23 Lansoprazole (Prevacid) 30 mg DAILY GT 10/04/19 09:00 11/03/19 08:59 10/08/19 08:22 Meropenem 1 gm/ Sodium Chloride 55 ml @ 110 mls/hr Q8HR IVPB 10/07/19 14:00 10/12/19 13:59 10/08/19 06:10 Quetiapine Fumarate (SEROqueL) 25 mg Q8H PRN NG Agitation 09/24/19 02:35 10/30/19 02:34 10/07/19 21:56 Sennosides (Senokot) 8.6 mg DAILY PRN ORAL Constipation 10/06/19 10:15 11/05/19 10:14 10/07/19 21:56 Allergies: Coded Allergies: PENICILLINS (Verified Allergy, Unknown, 10/27/18) tolretas cephalosporins ROS Limited/Unobtainable: Yes Subjective 84 YO M admitted with cough and congestion. Cover for Int Med-Dr Hayes. Reintubated 09/24/19 after cardiopulmonary arrest-see code blue note. ICU Objective Last Vital Signs Date Time Temp Pulse Resp B/P (MAP) Pulse Ox O2 Delivery O2 Flow Rate FiO2 10/08/19 12:31 86 20 40 10/08/19 12:00 121/57 (78) 100 10/08/19 08:00 98.1 10/08/19 08:00 Mechanical Ventilator Intake and Output 10/07/19 10/08/19 19:00 07:00 Intake Total 875 ml 975 ml Output Total 490 ml 460 ml Balance 385 ml 515 ml Intake Free Water 200 ml IV Total 55 ml 55 ml Tube Feeding 720 ml 720 ml Other 100 ml Output Urine Total 490 ml 460 ml Objective PHYSICAL EXAMINATION: GENERAL: The patient is a thin-appearing male, in no apparent distress. HEENT: Eyes, pupils are equal and responsive to light and accommodation. Extraocular movements are intact. NECK: Supple without lymphadenopathy. CHEST: Mech vent; Lungs are clear to auscultation bilaterally with decreased breath sounds on the right. There are no wheezes appreciated. ABDOMEN: Soft, nontender, and nondistended. Positive bowel sounds. No evidence of hepatosplenomegaly. Currently, no rebound or guarding noted. EXTREMITIES: Negative for clubbing, cyanosis, or edema. RECTAL/GENITAL: Not performed. NEUROLOGIC: Cranial nerves II through XII are grossly intact without focal deficits. Assessment/Plan Assessment/Plan ASSESSMENT: This is an 84-year-old male with: 1. 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 Urinary tract infection=jennifer 3. Right pleural effusion. 4. Esophageal mass. 5. Dysphagia. 6. Diabetes. 7. Alzheimer's dementia. 8. Cerebrovascular disease. 9. Hypothyroidism. 10. Seizure disorder. 11. Iron deficiency anemia. 13. Respiratory failure 14. S/P cardiopulmonary arrest 15. Anemia TREATMENT: 1. Right perihilar Pneumonia/pleural effusion. COVID 19 and Influenza negative. A Pulmonary consultation has been obtained with Dr. Vania Hui. S/P right thoracentesis 09/19/19. We will follow recommendation of Pulmonary. ID=Dr Roach ABX= S/P levofloxacin and vanco; Meropenem per ID 2. Urinary tract infection. . A urine culture =jennifer 3. Right pleural effusion. As above, a Pulmonary consultation has been obtained with Dr. Vania Hui. The patient may require thoracentesis during this hospitalization. 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 A Gastroenterology consultation has been obtained with Dr. Darrick Rosario. 5. Dysphagia. The patient is status post PEG placement on 08/08/[address] [facility] by Dr. Darrick Rosario. 6. Diabetes type 2. A NovoLog sliding scale has been instituted. 7. Alzheimer's dementia. 8. Cerebrovascular disease, status post cerebrovascular accident. 9. Hypothyroidism. Continue levothyroxine as above. 10. Seizure disorder. 11. Iron deficiency anemia. 12. reintubated 09/24/19-see code blue note 13. S/P transfusion 2 units PRBC Xander Bah MD October 08, 2019 13:00
--- NOTE | 2019-10-08 13:31 | Nephrology Progress Note ---
Assessment/Plan Problem List: (1) RAMAN (acute kidney injury) Assessment: Serum creatinine normalized with hydration (2) Dehydration (3) Suspected COVID-19 virus infection (4) Anemia (5) Sepsis (6) Diabetes mellitus (7) Hypothyroidism Assessment - Acute renal failure - Severe anemia - Sepsis, pneumonia, acute respiratory failure, suspected: Viewed 19 virus infection - Diabetes mellitus - Hypothyroidism - Feeding by G-tube - Squamous cell esophageal cancer - History of CVA (cerebrovascular accident) Plan October 17: Discussed with RN. Patient remains intubated. Family declined comfort care. Weaning trial is being attempted Main stable from renal standpoint of view We will order labs for tomorrow. Previously Patient was coded early September 23 morning and back in ICU intubated Serum creatinine miguel to 1.5, now back to normal Stable from renal standpoint of view at this point He is status remains full code Tested negative for COVID-19 Previously: Pneumonia SARS-CoV neg x2 MRSA screen pos sp cx: PSA and proteus Changes Seroquel to "as needed" due to bradycardia Discontinue IV fluid Monitor renal parameters, serum creatinine Adjust electrolytes with supplements Increase Synthroid dose Avoid nephrotoxic's as possible Ventilator management Urine studies Per orders Subjective ROS Limited/Unobtainable: Yes Objective Objective Last 24 Hour Vital Signs Date Time Temp Pulse Resp B/P (MAP) Pulse Ox O2 Delivery O2 Flow Rate FiO2 10/08/19 13:00 85 16 121/62 (81) 100 10/08/19 12:31 86 20 40 10/08/19 12:00 Mechanical Ventilator 10/08/19 12:00 40 10/08/19 12:00 83 10/08/19 12:00 86 20 121/57 (78) 100 10/08/19 11:20 90 24 40 10/08/19 11:00 85 20 122/54 (76) 100 10/08/19 10:00 88 18 123/65 (84) 100 10/08/19 09:11 92 26 40 10/08/19 09:00 90 19 126/57 (80) 99 10/08/19 08:22 88 125/56 10/08/19 08:00 40 10/08/19 08:00 98.1 88 20 125/56 (79) 100 10/08/19 08:00 Mechanical Ventilator 10/08/19 08:00 89 10/08/19 07:00 86 19 126/58 (80) 100 10/08/19 06:46 89 19 40 10/08/19 06:30 87 19 10/08/19 06:00 85 18 122/63 (82) 99 10/08/19 05:00 85 19 136/58 (84) 99 10/08/19 04:46 83 14 40 10/08/19 04:02 85 14 40 10/08/19 04:00 97.8 85 16 132/61 (84) 100 10/08/19 04:00 Mechanical Ventilator 10/08/19 04:00 40 10/08/19 04:00 81 10/08/19 03:00 88 21 127/69 (88) 100 10/08/19 02:00 84 15 107/65 (79) 100 10/08/19 01:00 83 17 128/53 (78) 100 10/08/19 00:39 84 19 40 10/08/19 00:00 82 10/08/19 00:00 40 10/08/19 00:00 99.9 83 17 116/60 (78) 100 10/08/19 00:00 Mechanical Ventilator 10/07/19 23:00 84 18 122/55 (77) 100 10/07/19 22:44 84 18 40 10/07/19 22:00 83 17 113/59 (77) 100 10/07/19 21:00 84 19 120/55 (76) 100 10/07/19 20:56 88 20 40 10/07/19 20:08 85 134/56 10/07/19 20:00 98.9 87 17 134/56 (82) 100 10/07/19 20:00 81 10/07/19 20:00 40 10/07/19 20:00 Mechanical Ventilator 10/07/19 19:00 85 18 40 10/07/19 19:00 85 18 121/61 (81) 100 10/07/19 18:00 89 21 130/69 (89) 100 10/07/19 17:25 84 20 40 10/07/19 17:00 83 19 122/58 (79) 100 10/07/19 16:00 98.6 83 21 113/56 (75) 100 10/07/19 16:00 Mechanical Ventilator 10/07/19 16:00 40 10/07/19 16:00 82 10/07/19 15:10 81 16 40 10/07/19 15:00 81 17 116/56 (76) 100 10/07/19 14:00 82 17 125/49 (74) 98 Intake and Output 10/07/19 10/08/19 19:00 07:00 Intake Total 875 ml 975 ml Output Total 490 ml 460 ml Balance 385 ml 515 ml Intake Free Water 200 ml IV Total 55 ml 55 ml Tube Feeding 720 ml 720 ml Other 100 ml Output Urine Total 490 ml 460 ml No blood work today Height (Feet): 5 Height (Inches): 11.00 Weight (Pounds): 144 General Appearance: no apparent distress EENT: other - Intubated on ventilator Cardiovascular: tachycardia Respiratory/Chest: decreased breath sounds Abdomen: distended Objective no change Clovis Benites MD October 08, 2019 13:31
[2019-10-09] VITALS (24 sets, daily range): BP systolic 101–178; BP diastolic 48–102
[2019-10-09] MEDS: Meropenem 1 GM in NS 55 ML IVPB SCH ×3 (05:21→23:09)
[2019-10-09 06:37] LABS: HEMATOCRIT 22.8 % (42.0-52.0); HEMOGLOBIN 7.4 G/DL (14.2-18.0); MEAN CORPUSCULAR VOLUME 80 FL (80-99); PLATELET COUNT 362 K/UL (150-450); RED BLOOD COUNT 2.84 M/UL (4.70-6.10); RED CELL DISTRIBUTION WIDTH 16.5 % (11.6-14.8); WHITE BLOOD COUNT 12.9 K/UL (4.8-10.8)
--- NOTE | 2019-10-09 06:56 | General Progress Note ---
Assessment/Plan Status: unchanged Assessment/Plan: 1. Esophageal cancer. 2. Dysphagia. 3. Diabetes type 2. 4. Dementia. 5. CVA. 6. Hypothyroidism. 7. Seizure disorder. 8. Iron deficiency anemia. 9. Respiratory failure. 10. Dysphagia with G-tube stable H&H GT has been changed and working well GT flushes dietitian in put appreciated>>> TF Javity subhash abx per id pulm care bowel regimen recent labs and notes reviewed D/W the nurse will fu Subjective ROS Limited/Unobtainable: No Allergies: Coded Allergies: PENICILLINS (Verified Allergy, Unknown, 10/27/18) tolretas cephalosporins Objective Last 24 Hour Vital Signs Date Time Temp Pulse Resp B/P (MAP) Pulse Ox O2 Delivery O2 Flow Rate FiO2 10/09/19 06:30 79 19 10/09/19 06:00 80 14 129/64 (85) 100 10/09/19 05:30 78 15 40 10/09/19 05:00 97.4 74 12 127/55 (79) 100 10/09/19 04:00 Mechanical Ventilator 10/09/19 04:00 98.8 78 15 151/56 (87) 100 10/09/19 04:00 77 10/09/19 04:00 40 10/09/19 03:30 81 20 40 10/09/19 03:00 80 15 120/53 (75) 100 10/09/19 02:00 80 15 131/70 (90) 100 10/09/19 01:00 82 15 129/62 (84) 100 10/09/19 00:30 83 23 40 10/09/19 00:00 82 10/09/19 00:00 98.1 84 19 126/74 (91) 100 10/09/19 00:00 40 10/09/19 00:00 Mechanical Ventilator 10/08/19 23:30 82 14 40 10/08/19 23:00 82 15 122/55 (77) 100 10/08/19 22:00 84 16 113/60 (77) 100 10/08/19 21:00 86 21 133/58 (83) 100 10/08/19 20:49 84 20 40 10/08/19 20:45 82 133/77 10/08/19 20:00 40 10/08/19 20:00 82 10/08/19 20:00 Mechanical Ventilator 10/08/19 20:00 99.0 84 15 133/77 (95) 100 10/08/19 19:30 83 21 40 10/08/19 19:00 82 19 143/74 (97) 100 10/08/19 18:00 99.1 84 19 144/58 (86) 100 10/08/19 17:09 85 18 40 10/08/19 17:00 87 19 135/69 (91) 100 10/08/19 16:00 Mechanical Ventilator 10/08/19 16:00 99.7 88 20 152/66 (94) 100 10/08/19 16:00 87 10/08/19 16:00 40 10/08/19 15:00 85 14 114/60 (78) 100 10/08/19 14:38 87 22 40 10/08/19 14:00 85 19 115/53 (73) 100 10/08/19 13:00 85 16 121/62 (81) 100 10/08/19 12:31 86 20 40 10/08/19 12:00 Mechanical Ventilator 10/08/19 12:00 40 10/08/19 12:00 83 10/08/19 12:00 86 20 121/57 (78) 100 10/08/19 11:20 90 24 40 10/08/19 11:00 85 20 122/54 (76) 100 10/08/19 10:00 88 18 123/65 (84) 100 10/08/19 09:11 92 26 40 10/08/19 09:00 90 19 126/57 (80) 99 10/08/19 08:22 88 125/56 10/08/19 08:00 40 10/08/19 08:00 98.1 88 20 125/56 (79) 100 10/08/19 08:00 Mechanical Ventilator 10/08/19 08:00 89 10/08/19 07:00 86 19 126/58 (80) 100 Intake and Output 10/08/19 10/09/19 19:00 07:00 Intake Total 920 ml 810 ml Output Total 530 ml 450 ml Balance 390 ml 360 ml Intake Free Water 150 ml Tube Feeding 720 ml 600 ml Other 200 ml 60 ml Output Urine Total 530 ml 450 ml Laboratory Tests 10/09/19 05:30: White Blood Count [Pending], Red Blood Count [Pending], Hemoglobin [Pending], Hematocrit [Pending], Mean Corpuscular Volume [Pending], Mean Corpuscular Hemoglobin [Pending], Mean Corpuscular Hemoglobin Concent [Pending], Red Cell Distribution Width [Pending], Platelet Count [Pending], Mean Platelet Volume [ Pending], Neutrophils (%) (Auto) [Pending], Lymphocytes (%) (Auto) [Pending], Monocytes (%) (Auto) [Pending], Eosinophils (%) (Auto) [Pending], Basophils (%) (Auto) [Pending], Sodium Level [Pending], Potassium Level [Pending], Chloride Level [Pending], Carbon Dioxide Level [Pending], Blood Urea Nitrogen [Pending], Creatinine [Pending], Estimat Glomerular Filtration Rate [Pending], Glucose Level [Pending], Uric Acid [Pending], Calcium Level [Pending], Phosphorus Level [Pending], Magnesium Level [Pending], Total Bilirubin [Pending], Aspartate Amino Transf (AST/SGOT) [Pending], Alanine Aminotransferase (ALT/SGPT) [Pending] , Alkaline Phosphatase [Pending], C-Reactive Protein, Quantitative [Pending], Pro-B-Type Natriuretic Peptide [Pending], Total Protein [Pending], Albumin [ Pending], Globulin [Pending] Height (Feet): 5 Height (Inches): 11.00 Weight (Pounds): 146 General Appearance: no apparent distress EENT: normal ENT inspection Neck: supple Cardiovascular: normal rate Respiratory/Chest: decreased breath sounds Abdomen: normal bowel sounds, non tender, soft Extremities: non-tender Darrick Rosario MD October 09, 2019 06:56
[2019-10-09 06:59] LABS: ALANINE AMINOTRANSFERASE 40 U/L (12-78); ALBUMIN 1.3 G/DL (3.4-5.0); ALBUMIN/GLOBULIN RATIO 0.2 (1.0-2.7); ALKALINE PHOSPHATASE 225 U/L (46-116); ANION GAP 7 mmol/L (5-15); ASPARTATE AMINO TRANSFERASE 48 U/L (15-37); BILIRUBIN,TOTAL 0.4 MG/DL (0.2-1.0); BLOOD UREA NITROGEN 23 mg/dL (7-18); CALCIUM 8.6 MG/DL (8.5-10.1); CARBON DIOXIDE 26 MMOL/L (21-32); CHLORIDE 104 MMOL/L (98-107); CREATININE 1.1 MG/DL (0.55-1.30); POTASSIUM 4.8 MMOL/L (3.5-5.1); SODIUM 137 MMOL/L (136-145)
[2019-10-09 07:15] LABS: PHOSPHORUS 3.8 MG/DL (2.5-4.9)
[2019-10-09] MEDS: Docusate 100mg/10ml Liq GT SCH ×3 (08:29→17:21)
[2019-10-09] MEDS: Heparin 5000 units/ml inj SUBQ SCH ×2 (08:30→20:15)
--- NOTE | 2019-10-09 09:19 | Nephrology Progress Note ---
Assessment/Plan Problem List: (1) RAMAN (acute kidney injury) Assessment: Serum creatinine normalized with hydration (2) Dehydration (3) Suspected COVID-19 virus infection (4) Anemia (5) Sepsis (6) Diabetes mellitus (7) Hypothyroidism Assessment - Acute renal failure - Severe anemia - Sepsis, pneumonia, acute respiratory failure, suspected: Viewed 19 virus infection - Diabetes mellitus - Hypothyroidism - Feeding by G-tube - Squamous cell esophageal cancer - History of CVA (cerebrovascular accident) Plan October 08 Discussed with RN Remains intubated on ventilator Hemoglobin is drifting down Will reorder iron panel Remains stable from renal standpoint of view Remains full code October 2: Discussed with RN. Patient remains intubated. Family declined comfort care. Weaning trial is being attempted Main stable from renal standpoint of view We will order labs for tomorrow. Previously Patient was coded early September 23 morning and back in ICU intubated Serum creatinine miguel to 1.5, now back to normal Stable from renal standpoint of view at this point He is status remains full code Tested negative for COVID-19 Previously: Pneumonia SARS-CoV neg x2 MRSA screen pos sp cx: PSA and proteus Changes Seroquel to "as needed" due to bradycardia Discontinue IV fluid Monitor renal parameters, serum creatinine Adjust electrolytes with supplements Increase Synthroid dose Avoid nephrotoxic's as possible Ventilator management Urine studies Per orders Subjective ROS Limited/Unobtainable: Yes Objective Objective Last 24 Hour Vital Signs Date Time Temp Pulse Resp B/P (MAP) Pulse Ox O2 Delivery O2 Flow Rate FiO2 10/09/19 09:13 80 20 40 10/09/19 09:08 100 10/09/19 08:29 83 138/65 10/09/19 07:17 81 16 100 Mechanical Ventilator 100 10/09/19 07:11 81 16 40 10/09/19 07:00 82 25 130/61 (84) 100 10/09/19 06:30 79 19 10/09/19 06:00 80 14 129/64 (85) 100 10/09/19 05:30 78 15 40 10/09/19 05:00 97.4 74 12 127/55 (79) 100 10/09/19 04:00 Mechanical Ventilator 10/09/19 04:00 98.8 78 15 151/56 (87) 100 10/09/19 04:00 77 10/09/19 04:00 40 10/09/19 03:30 81 20 40 10/09/19 03:00 80 15 120/53 (75) 100 10/09/19 02:00 80 15 131/70 (90) 100 10/09/19 01:00 82 15 129/62 (84) 100 10/09/19 00:30 83 23 40 10/09/19 00:00 82 10/09/19 00:00 98.1 84 19 126/74 (91) 100 10/09/19 00:00 40 10/09/19 00:00 Mechanical Ventilator 10/08/19 23:30 82 14 40 10/08/19 23:00 82 15 122/55 (77) 100 10/08/19 22:00 84 16 113/60 (77) 100 10/08/19 21:00 86 21 133/58 (83) 100 10/08/19 20:49 84 20 40 10/08/19 20:45 82 133/77 10/08/19 20:00 40 10/08/19 20:00 82 10/08/19 20:00 Mechanical Ventilator 10/08/19 20:00 99.0 84 15 133/77 (95) 100 10/08/19 19:30 83 21 40 10/08/19 19:00 82 19 143/74 (97) 100 10/08/19 18:00 99.1 84 19 144/58 (86) 100 10/08/19 17:09 85 18 40 10/08/19 17:00 87 19 135/69 (91) 100 10/08/19 16:00 Mechanical Ventilator 10/08/19 16:00 99.7 88 20 152/66 (94) 100 10/08/19 16:00 87 10/08/19 16:00 40 10/08/19 15:00 85 14 114/60 (78) 100 10/08/19 14:38 87 22 40 10/08/19 14:00 85 19 115/53 (73) 100 10/08/19 13:00 85 16 121/62 (81) 100 10/08/19 12:31 86 20 40 10/08/19 12:00 Mechanical Ventilator 10/08/19 12:00 40 10/08/19 12:00 83 10/08/19 12:00 86 20 121/57 (78) 100 10/08/19 11:20 90 24 40 10/08/19 11:00 85 20 122/54 (76) 100 10/08/19 10:00 88 18 123/65 (84) 100 Intake and Output 10/08/19 10/09/19 19:00 07:00 Intake Total 920 ml 870 ml Output Total 530 ml 495 ml Balance 390 ml 375 ml Intake Free Water 150 ml Tube Feeding 720 ml 660 ml Other 200 ml 60 ml Output Urine Total 530 ml 495 ml Laboratory Tests 10/09/19 05:30: White Blood Count 12.9H, Red Blood Count 2.84L, Hemoglobin 7.4L, Hematocrit 22.8L, Mean Corpuscular Volume 80, Mean Corpuscular Hemoglobin 26.2L, Mean Corpuscular Hemoglobin Concent 32.5, Red Cell Distribution Width 16.5H, Platelet Count 362, Mean Platelet Volume 5.0L, Neutrophils (%) (Auto) , Lymphocytes (%) (Auto) , Monocytes (%) (Auto) , Eosinophils (%) (Auto) , Basophils (%) (Auto) , Neutrophils % (Manual) [Pending], Lymphocytes % (Manual) [Pending], Platelet Estimate [Pending], Platelet Morphology [Pending], Sodium Level 137, Potassium Level 4.8, Chloride Level 104, Carbon Dioxide Level 26, Anion Gap 7, Blood Urea Nitrogen 23H, Creatinine 1.1, Estimat Glomerular Filtration Rate > 60, Glucose Level 102, Uric Acid 4.0, Calcium Level 8.6, Phosphorus Level 3.8, Magnesium Level 2.1, Total Bilirubin 0.4, Aspartate Amino Transf (AST/SGOT) 48H, Alanine Aminotransferase (ALT/SGPT) 40, Alkaline Phosphatase 225H, C-Reactive Protein, Quantitative 19.2H, Pro-B-Type Natriuretic Peptide 279H, Total Protein 6.8, Albumin 1.3L, Globulin 5.5, Albumin /Globulin Ratio 0.2L Height (Feet): 5 Height (Inches): 11.00 Weight (Pounds): 146 General Appearance: no apparent distress EENT: other - Intubated on ventilator Cardiovascular: tachycardia - Rate 80s Respiratory/Chest: decreased breath sounds Abdomen: distended Objective no change Clovis Benites MD October 09, 2019 09:19
--- NOTE | 2019-10-09 10:14 | Pulmonolgy Critical Care Note ---
Critical Care - Asmt/Plan Assessment/Plan: ASSESSMENT Sepsis Acute respiratory failure requiring intubation, s/p extubation 09/19 s/p CP arrest and reintubation 09/23 Failure to wean Pseudomonas and Proteus pneumonia recurrent pleural effusion, s/p thoracentesis 09/18 and 09/27 Acute kidney injury, -secondary to dehydration Suspected COVID 19 infection -ruled out x 2 Hypothyroidism with elevated TSH Severe anemia Transaminitis Dysphagia, feeding by G-tube Cerebrovascular disease with hx of CVA Diabetes mellitus Severe protein calorie malnutrition Multiply pressure injury, present on admission Seizure disorder Alzheimer dementia Anemia PLAN of CARE ICU vent support, pulmonary toilet CXR 09/30 noted, on weaning protocol, continue so far unable to wean fup with CXR and ABG in am s/p 09/[address] effusion - 2050 ml, 09/27 -2300 ml, pleural fluid cx NGT x2 pathology - NGT for malignant cells x2 initial CXR with near complete resolution, no complication HONEY CoV PCR x 2 -NGT; off isolation influenza screen NGT BCX NGT SCX + Pseudomonas, Proteus, repeated SCX 09/25 + Pseudomonas abx as per ID UCX + Abi , likely colonization completed abx as per ID aspiration precautions, GTF , protein supplements as per RD monitor H&H with goal to keep Hgb above 7 BS management trend LFT creat stable avoid nephrotoxics continue Protonix monitor HH at baseline and consider GI eval if further drop elevated D dimer, venous Duplex BLE negative troponin NGT wound care as per surgeon recommendation Synthroid dose uptitrated, repeat TSH in 3 wks supportive care need either trach or terminal extubation will dc with family regarding goals of care continue discuss with family further GOC case discussed and evaluated by supervising physician Critical Care - Objective Last 24 Hour Vital Signs Date Time Temp Pulse Resp B/P (MAP) Pulse Ox O2 Delivery O2 Flow Rate FiO2 10/09/19 09:13 80 20 40 10/09/19 09:08 100 10/09/19 09:00 80 14 151/63 (92) 100 10/09/19 08:29 83 138/65 10/09/19 08:00 98.2 81 13 138/65 (89) 100 10/09/19 08:00 81 10/09/19 08:00 Mechanical Ventilator 10/09/19 08:00 40 10/09/19 07:17 81 16 100 Mechanical Ventilator 100 10/09/19 07:11 81 16 40 10/09/19 07:00 82 25 130/61 (84) 100 10/09/19 06:30 79 19 10/09/19 06:00 80 14 129/64 (85) 100 10/09/19 05:30 78 15 40 10/09/19 05:00 97.4 74 12 127/55 (79) 100 10/09/19 04:00 Mechanical Ventilator 10/09/19 04:00 98.8 78 15 151/56 (87) 100 10/09/19 04:00 77 10/09/19 04:00 40 10/09/19 03:30 81 20 40 10/09/19 03:00 80 15 120/53 (75) 100 10/09/19 02:00 80 15 131/70 (90) 100 10/09/19 01:00 82 15 129/62 (84) 100 10/09/19 00:30 83 23 40 10/09/19 00:00 82 10/09/19 00:00 98.1 84 19 126/74 (91) 100 10/09/19 00:00 40 10/09/19 00:00 Mechanical Ventilator 10/08/19 23:30 82 14 40 10/08/19 23:00 82 15 122/55 (77) 100 10/08/19 22:00 84 16 113/60 (77) 100 10/08/19 21:00 86 21 133/58 (83) 100 10/08/19 20:49 84 20 40 10/08/19 20:45 82 133/77 10/08/19 20:00 40 10/08/19 20:00 82 10/08/19 20:00 Mechanical Ventilator 10/08/19 20:00 99.0 84 15 133/77 (95) 100 10/08/19 19:30 83 21 40 10/08/19 19:00 82 19 143/74 (97) 100 10/08/19 18:00 99.1 84 19 144/58 (86) 100 10/08/19 17:09 85 18 40 10/08/19 17:00 87 19 135/69 (91) 100 10/08/19 16:00 Mechanical Ventilator 10/08/19 16:00 99.7 88 20 152/66 (94) 100 10/08/19 16:00 87 10/08/19 16:00 40 10/08/19 15:00 85 14 114/60 (78) 100 10/08/19 14:38 87 22 40 10/08/19 14:00 85 19 115/53 (73) 100 10/08/19 13:00 85 16 121/62 (81) 100 10/08/19 12:31 86 20 40 10/08/19 12:00 Mechanical Ventilator 10/08/19 12:00 40 10/08/19 12:00 83 10/08/19 12:00 86 20 121/57 (78) 100 10/08/19 11:20 90 24 40 10/08/19 11:00 85 20 122/54 (76) 100 Objective: Condition: critical, intubated HEENT: atraumatic, normocephalic, OP with ET in place, intact Lungs: overall clear Heart: HR/BP stable Abdomen: soft, active bowel sounds, G tube Extremities: no C/C/E Critical Care - Subjective Interval Events: remains intubated, failure to wean leukocytosis, mild, persistent no fevers Hgb down to 7.4 Condition: critical IV Access: peripheral FI02: 40 Vent Support Breath Rate: 12 Vent Support Mode: AC Vent Tidal Volume: 550 Sputum Amount: Small PEEP: 5.0 PIP: 23 Tube Feeding Amount: 60 I&O: Intake and Output 10/08/19 10/09/19 19:00 07:00 Intake Total 920 ml 925 ml Output Total 530 ml 495 ml Balance 390 ml 430 ml Intake Free Water 150 ml IV Total 55 ml Tube Feeding 720 ml 660 ml Other 200 ml 60 ml Output Urine Total 530 ml 495 ml CXR: CXR 10/05 Right mid and lower lung opacity, likely combination of pleural fluid and parenchymal consolidation, appearing slightly improved over 2 days. ET-Tube: 7.5 ET Position: 26 Miranda Pimentel NP October 09, 2019 10:14
[2019-10-09 11:17] LABS: FERRITIN 533 NG/ML (8-388)
[2019-10-09 11:45] LABS: % IRON SATURATION 13 % (15-50); IRON 13 ug/dL (50-175); TOTAL IRON BINDING CAPACITY 103 ug/dL (250-450)
--- NOTE | 2019-10-09 11:56 | Infectious Diseases Prog Note ---
Assessment/Plan Assessment/Plan 09/23 SP asystole cardiac arrest VDRF 09/23 Fever; SP Mild leukocytosis, improving Probable UTI -10/01 Bcx Neg u/a wbc tnct; ucx 30-40k C.albicans PNA VDRF, sp intubation 09/08, sp extubation 09/18, re-intubated 09/23 SARS-CoV neg x3 (09/06, 09/08, 09/30) MRSA screen pos 10/05 CXR: Focal patchy infiltrate in the left suprahilar region, not evident previously. Slightly increased small right pleural effusion. Obscured left hemidiaphragm, likely retrocardiac consolidation and/or left pleural fluid , unchanged Stable cardiomegaly 10/02 CXR: Increasing pleural fluid and possibly parenchymal consolidation at the right lung base. Unchanged left basilar pleural and parenchymal disease. sp cx PSA (hensley S), P. stuarti (R. cefepime, ancef, levaquin; S zosyn, ertapenem) 09/30 CXR: Patchy opacities throughout the right lung left mid and lower lung, similar to slightly increased. Possible small bilateral pleural effusions. 09/29 CXR: Increasing right mid and lower lung opacity, may indicate increasing pleural fluid, increasing infiltrate, or both. 09/28 CXR: Developing hazy right basilar opacity. This could represent reaching layering pleural fluid. This could also represent reexpansion pulmonary edema given recent high-volume thoracentesis, or could represent developing ammonia or pulmonary edema. Hazy left basilar opacity, unchanged, may reflect parenchymal infiltrate versus pleural fluid versus both 09/25 CXR: Large right pleural effusion is again demonstrated. Small left pleural effusion is again demonstrated. Left lung is otherwise clear. sp cx PsA (R zozyn, S levo, gentamycin) 09/24 CXR: Moderate size right pleural effusion with right upper and lower lobe atelectasis/consolidation, as well as mild pulmonary edema.. 09/17 CXR: Similar bilateral interstitial prominence, greater on the right.Stable right perihilar, mid and lower lung opacities. Similar left lung base opacity. Small left pleural effusion is stable. Loculated right pleural effusion is stable. No pneumothorax. CXR: Right pleural effusion, also demonstrated on prior 08/09/2019 exam, slightly increased. Hazy right lung parenchymal opacity probably represents a superimposed pleural fluid but infiltrate also possible. 09/06 sp cx: PSA (hensley S) and proteus (hensley S) R pleural effusion, exudative -09/18 SP thorancetesis; removal of 2050 mL fluid; Fluid prot 5 (serum prot 7.2 ); cx Neg QTc 419 RAMAN, improving DM HTN CVA Dementia Nonverbal G tube Plan: Continue Meropenem #3 10/06 SP Levaquin #7 10/05 SP IV Vancomycin #6 09/19 SPcefepime # 09/09 SP vanc #4 ( Cr increased) ICU care monitor temp and CBC COVID neg x3 CXR am DW RN Thank you for this consult. [facility] will continue to follow the patient with you. Subjective Allergies: Coded Allergies: PENICILLINS (Verified Allergy, Unknown, 10/27/18) tolretas cephalosporins Subjective afebrile Fio2 40% mild leukocytosis improving Bcx neg Objective Vital Signs Last 24 Hour Vital Signs Date Time Temp Pulse Resp B/P (MAP) Pulse Ox O2 Delivery O2 Flow Rate FiO2 10/09/19 10:59 78 14 40 10/09/19 10:00 81 16 149/85 (106) 100 10/09/19 09:13 80 20 40 10/09/19 09:08 100 10/09/19 09:00 80 14 151/63 (92) 100 10/09/19 08:29 83 138/65 10/09/19 08:00 98.2 81 13 138/65 (89) 100 10/09/19 08:00 81 10/09/19 08:00 Mechanical Ventilator 10/09/19 08:00 40 10/09/19 07:17 81 16 100 Mechanical Ventilator 100 10/09/19 07:11 81 16 40 10/09/19 07:00 82 25 130/61 (84) 100 10/09/19 06:30 79 19 10/09/19 06:00 80 14 129/64 (85) 100 10/09/19 05:30 78 15 40 10/09/19 05:00 97.4 74 12 127/55 (79) 100 10/09/19 04:00 Mechanical Ventilator 10/09/19 04:00 98.8 78 15 151/56 (87) 100 10/09/19 04:00 77 10/09/19 04:00 40 10/09/19 03:30 81 20 40 10/09/19 03:00 80 15 120/53 (75) 100 10/09/19 02:00 80 15 131/70 (90) 100 10/09/19 01:00 82 15 129/62 (84) 100 10/09/19 00:30 83 23 40 10/09/19 00:00 82 10/09/19 00:00 98.1 84 19 126/74 (91) 100 10/09/19 00:00 40 10/09/19 00:00 Mechanical Ventilator 10/08/19 23:30 82 14 40 10/08/19 23:00 82 15 122/55 (77) 100 10/08/19 22:00 84 16 113/60 (77) 100 10/08/19 21:00 86 21 133/58 (83) 100 10/08/19 20:49 84 20 40 10/08/19 20:45 82 133/77 10/08/19 20:00 40 10/08/19 20:00 82 10/08/19 20:00 Mechanical Ventilator 10/08/19 20:00 99.0 84 15 133/77 (95) 100 10/08/19 19:30 83 21 40 10/08/19 19:00 82 19 143/74 (97) 100 10/08/19 18:00 99.1 84 19 144/58 (86) 100 10/08/19 17:09 85 18 40 10/08/19 17:00 87 19 135/69 (91) 100 10/08/19 16:00 Mechanical Ventilator 10/08/19 16:00 99.7 88 20 152/66 (94) 100 10/08/19 16:00 87 10/08/19 16:00 40 10/08/19 15:00 85 14 114/60 (78) 100 10/08/19 14:38 87 22 40 10/08/19 14:00 85 19 115/53 (73) 100 10/08/19 13:00 85 16 121/62 (81) 100 10/08/19 12:31 86 20 40 10/08/19 12:00 Mechanical Ventilator 10/08/19 12:00 40 10/08/19 12:00 83 10/08/19 12:00 86 20 121/57 (78) 100 Height (Feet): 5 Height (Inches): 11.00 Weight (Pounds): 146 Objective Gen: NAD. well nourished HEENT: ETT. oral secretions Resp: coarse. equal chest rise. regular rate and rhythm. Abd: Soft. no TTP. nondistended. G tube site c/d/i. Neuro: opens eyes to voice and follows simple commands Laboratory Tests Test 10/09/19 05:30 10/09/19 10:20 White Blood Count 12.9 K/UL (4.8-10.8) H Red Blood Count 2.84 M/UL (4.70-6.10) L Hemoglobin 7.4 G/DL (14.2-18.0) L Hematocrit 22.8 % (42.0-52.0) L Mean Corpuscular Volume 80 FL (80-99) Mean Corpuscular Hemoglobin 26.2 PG (27.0-31.0) L Mean Corpuscular Hemoglobin Concent 32.5 G/DL (32.0-36.0) Red Cell Distribution Width 16.5 % (11.6-14.8) H Platelet Count 362 K/UL (150-450) Mean Platelet Volume 5.0 FL (6.5-10.1) L Neutrophils (%) (Auto) % (45.0-75.0) Lymphocytes (%) (Auto) % (20.0-45.0) Monocytes (%) (Auto) % (1.0-10.0) Eosinophils (%) (Auto) % (0.0-3.0) Basophils (%) (Auto) % (0.0-2.0) Neutrophils % (Manual) Pending Lymphocytes % (Manual) Pending Platelet Estimate Pending Platelet Morphology Pending Sodium Level 137 MMOL/L (136-145) Potassium Level 4.8 MMOL/L (3.5-5.1) Chloride Level 104 MMOL/L (98-107) Carbon Dioxide Level 26 MMOL/L (21-32) Anion Gap 7 mmol/L (5-15) Blood Urea Nitrogen 23 mg/dL (7-18) H Creatinine 1.1 MG/DL (0.55-1.30) Estimat Glomerular Filtration Rate > 60 mL/min (>60) Glucose Level 102 MG/DL (74-106) Uric Acid 4.0 MG/DL (2.6-7.2) Calcium Level 8.6 MG/DL (8.5-10.1) Phosphorus Level 3.8 MG/DL (2.5-4.9) Magnesium Level 2.1 MG/DL (1.8-2.4) Total Bilirubin 0.4 MG/DL (0.2-1.0) Aspartate Amino Transf (AST/SGOT) 48 U/L (15-37) H Alanine Aminotransferase (ALT/SGPT) 40 U/L (12-78) Alkaline Phosphatase 225 U/L (46-116) H C-Reactive Protein, Quantitative 19.2 mg/dL (0.00-0.90) H Pro-B-Type Natriuretic Peptide 279 pg/mL (0-125) H Total Protein 6.8 G/DL (6.4-8.2) Albumin 1.3 G/DL (3.4-5.0) L Globulin 5.5 g/dL Albumin/Globulin Ratio 0.2 (1.0-2.7) L Iron Level 13 ug/dL (50-175) L Total Iron Binding Capacity 103 ug/dL (250-450) L Percent Iron Saturation 13 % (15-50) L Unsaturated Iron Binding 90 ug/dL (112-346) L Ferritin 533 NG/ML (8-388) H Vitamin B12 Level 1015 PG/ML (193-986) H Folate 29.4 NG/ML (8.6-58.9) Current Medications Medications (Trade) Dose Ordered Sig/Kike Route PRN Reason Start Time Stop Time Status Last Admin Dose Admin Amlodipine Besylate (Norvasc) 5 mg BID@0900,2100 NG 09/24/19 21:00 10/22/19 08:59 10/09/19 08:29 Docusate Sodium (Colace) 100 mg TID GT 10/05/19 13:00 11/03/19 08:59 10/09/19 08:29 Heparin Sodium (Porcine) (Heparin 5000 units/ml) 5,000 units EVERY 12 HOURS SUBQ 09/24/19 09:00 10/22/19 08:59 10/09/19 08:30 Lansoprazole (Prevacid) 30 mg DAILY GT 10/04/19 09:00 11/03/19 08:59 10/09/19 08:30 Meropenem 1 gm/ Sodium Chloride 55 ml @ 110 mls/hr Q8HR IVPB 10/07/19 14:00 10/12/19 13:59 10/09/19 05:21 Quetiapine Fumarate (SEROqueL) 25 mg Q8H PRN NG Agitation 09/24/19 02:35 10/30/19 02:34 10/08/19 20:45 Sennosides (Senokot) 8.6 mg DAILY PRN ORAL Constipation 10/06/19 10:15 11/05/19 10:14 10/07/19 21:56 Danielle Roach M.D. October 09, 2019 11:56
[2019-10-09] MEDS ORDERED: NS 275ml ONE ×7 (14:05→15:58)
[2019-10-09] MEDS ORDERED: Sterile Water Irrig 1000ml IRRIG ONE ×2 (14:06→14:11)
[2019-10-09] MEDS ORDERED: Tubing IV Secondary IV ONE ×2 (14:11→14:14)
[2019-10-09] MEDS ORDERED: D5 1/2NS 1000ml IV ONE (14:14)
--- NOTE | 2019-10-09 14:52 | Internal Med Progress Note ---
Subjective Date of Service: October 09, 2019 Physician Name Xander Bah Attending Physician Lamont Hayes MD Current Medications Medications (Trade) Dose Ordered Sig/Kike Route PRN Reason Start Time Stop Time Status Last Admin Dose Admin Amlodipine Besylate (Norvasc) 5 mg BID@0900,2100 NG 09/24/19 21:00 10/22/19 08:59 10/09/19 08:29 Docusate Sodium (Colace) 100 mg TID GT 10/05/19 13:00 11/03/19 08:59 10/09/19 13:52 Heparin Sodium (Porcine) (Heparin 5000 units/ml) 5,000 units EVERY 12 HOURS SUBQ 09/24/19 09:00 10/22/19 08:59 10/09/19 08:30 Lansoprazole (Prevacid) 30 mg DAILY GT 10/04/19 09:00 11/03/19 08:59 10/09/19 08:30 Meropenem 1 gm/ Sodium Chloride 55 ml @ 110 mls/hr Q8HR IVPB 10/07/19 14:00 10/12/19 13:59 10/09/19 13:52 Quetiapine Fumarate (SEROqueL) 25 mg Q8H PRN NG Agitation 09/24/19 02:35 10/30/19 02:34 10/08/19 20:45 Sennosides (Senokot) 8.6 mg DAILY PRN ORAL Constipation 10/06/19 10:15 11/05/19 10:14 10/07/19 21:56 Allergies: Coded Allergies: PENICILLINS (Verified Allergy, Unknown, 10/27/18) tolretas cephalosporins Subjective 84 YO M admitted with cough and congestion. Cover for Int Med-Dr Hayes. Reintubated 09/24/19 after cardiopulmonary arrest. ICU Objective Last Vital Signs Date Time Temp Pulse Resp B/P (MAP) Pulse Ox O2 Delivery O2 Flow Rate FiO2 10/09/19 14:45 85 16 40 10/09/19 14:00 178/74 (108) 100 10/09/19 12:00 98.4 10/09/19 12:00 Mechanical Ventilator Laboratory Tests Test 10/09/19 05:30 10/09/19 10:20 White Blood Count 12.9 K/UL (4.8-10.8) H Red Blood Count 2.84 M/UL (4.70-6.10) L Hemoglobin 7.4 G/DL (14.2-18.0) L Hematocrit 22.8 % (42.0-52.0) L Mean Corpuscular Volume 80 FL (80-99) Mean Corpuscular Hemoglobin 26.2 PG (27.0-31.0) L Mean Corpuscular Hemoglobin Concent 32.5 G/DL (32.0-36.0) Red Cell Distribution Width 16.5 % (11.6-14.8) H Platelet Count 362 K/UL (150-450) Mean Platelet Volume 5.0 FL (6.5-10.1) L Neutrophils (%) (Auto) % (45.0-75.0) Lymphocytes (%) (Auto) % (20.0-45.0) Monocytes (%) (Auto) % (1.0-10.0) Eosinophils (%) (Auto) % (0.0-3.0) Basophils (%) (Auto) % (0.0-2.0) Differential Total Cells Counted 100 Neutrophils % (Manual) 80 % (45-75) H Lymphocytes % (Manual) 14 % (20-45) L Monocytes % (Manual) 6 % (1-10) Eosinophils % (Manual) 0 % (0-3) Basophils % (Manual) 0 % (0-2) Band Neutrophils 0 % (0-8) Platelet Estimate Adequate Platelet Morphology Normal Hypochromasia 2+ Anisocytosis 1+ Sodium Level 137 MMOL/L (136-145) Potassium Level 4.8 MMOL/L (3.5-5.1) Chloride Level 104 MMOL/L (98-107) Carbon Dioxide Level 26 MMOL/L (21-32) Anion Gap 7 mmol/L (5-15) Blood Urea Nitrogen 23 mg/dL (7-18) H Creatinine 1.1 MG/DL (0.55-1.30) Estimat Glomerular Filtration Rate > 60 mL/min (>60) Glucose Level 102 MG/DL (74-106) Uric Acid 4.0 MG/DL (2.6-7.2) Calcium Level 8.6 MG/DL (8.5-10.1) Phosphorus Level 3.8 MG/DL (2.5-4.9) Magnesium Level 2.1 MG/DL (1.8-2.4) Total Bilirubin 0.4 MG/DL (0.2-1.0) Aspartate Amino Transf (AST/SGOT) 48 U/L (15-37) H Alanine Aminotransferase (ALT/SGPT) 40 U/L (12-78) Alkaline Phosphatase 225 U/L (46-116) H C-Reactive Protein, Quantitative 19.2 mg/dL (0.00-0.90) H Pro-B-Type Natriuretic Peptide 279 pg/mL (0-125) H Total Protein 6.8 G/DL (6.4-8.2) Albumin 1.3 G/DL (3.4-5.0) L Globulin 5.5 g/dL Albumin/Globulin Ratio 0.2 (1.0-2.7) L Iron Level 13 ug/dL (50-175) L Total Iron Binding Capacity 103 ug/dL (250-450) L Percent Iron Saturation 13 % (15-50) L Unsaturated Iron Binding 90 ug/dL (112-346) L Ferritin 533 NG/ML (8-388) H Vitamin B12 Level 1015 PG/ML (193-986) H Folate 29.4 NG/ML (8.6-58.9) Intake and Output 10/08/19 10/09/19 19:00 07:00 Intake Total 920 ml 925 ml Output Total 530 ml 495 ml Balance 390 ml 430 ml Intake Free Water 150 ml IV Total 55 ml Tube Feeding 720 ml 660 ml Other 200 ml 60 ml Output Urine Total 530 ml 495 ml Objective PHYSICAL EXAMINATION: GENERAL: The patient is a thin-appearing male, in no apparent distress. HEENT: Eyes, pupils are equal and responsive to light and accommodation. Extraocular movements are intact. NECK: Supple without lymphadenopathy. CHEST: Mech vent; Lungs are clear to auscultation bilaterally with decreased breath sounds on the right. There are no wheezes appreciated. ABDOMEN: Soft, nontender, and nondistended. Positive bowel sounds. No evidence of hepatosplenomegaly. Currently, no rebound or guarding noted. EXTREMITIES: Negative for clubbing, cyanosis, or edema. RECTAL/GENITAL: Not performed. NEUROLOGIC: Cranial nerves II through XII are grossly intact without focal deficits. Assessment/Plan Assessment/Plan ASSESSMENT: This is an 84-year-old male with: 1. 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 Urinary tract infection=jennifer 3. Right pleural effusion. 4. Esophageal mass. 5. Dysphagia. 6. Diabetes. 7. Alzheimer's dementia. 8. Cerebrovascular disease. 9. Hypothyroidism. 10. Seizure disorder. 11. Iron deficiency anemia. 13. Respiratory failure 14. S/P cardiopulmonary arrest 15. Anemia TREATMENT: 1. Right perihilar Pneumonia/pleural effusion. COVID 19 and Influenza negative. A Pulmonary consultation has been obtained with Dr. Vania Hui. S/P right thoracentesis 09/19/19. We will follow recommendation of Pulmonary. ID=Dr Roach ABX= S/P levofloxacin and vanco; Meropenem per ID 2. Urinary tract infection. . A urine culture =jennifer 3. Right pleural effusion. As above, a Pulmonary consultation has been obtained with Dr. Vania Hui. The patient may require thoracentesis during this hospitalization. 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 A Gastroenterology consultation has been obtained with Dr. Darrick Rosario. 5. Dysphagia. The patient is status post PEG placement on 08/08/2019 at [facility] by Dr. Darrick Rosario. 6. Diabetes type 2. A NovoLog sliding scale has been instituted. 7. Alzheimer's dementia. 8. Cerebrovascular disease, status post cerebrovascular accident. 9. Hypothyroidism. Continue levothyroxine as above. 10. Seizure disorder. 11. Iron deficiency anemia. 12. reintubated 09/24/19-see code blue note 13. S/P transfusion 2 units PRBC Xander Bah MD October 09, 2019 14:52
--- NOTE | 2019-10-09 21:46 | Surgery Progress Note ---
Surgery Progress Note Subjective Additional Comments ill appearing leukocytosis labs reviewed exam unchanged Objective Last 24 Hour Vital Signs Date Time Temp Pulse Resp B/P (MAP) Pulse Ox O2 Delivery O2 Flow Rate FiO2 10/09/19 21:00 82 18 121/56 (77) 98 10/09/19 20:13 83 111/71 10/09/19 20:00 81 10/09/19 20:00 Mechanical Ventilator 10/09/19 20:00 40 10/09/19 20:00 99.3 80 20 111/71 (84) 98 10/09/19 19:52 80 19 40 10/09/19 19:00 81 17 124/64 (84) 100 10/09/19 18:00 80 18 112/61 (78) 100 10/09/19 17:00 81 15 136/102 (113) 100 10/09/19 16:48 79 14 40 10/09/19 16:00 Mechanical Ventilator 10/09/19 16:00 82 15 125/67 (86) 100 10/09/19 16:00 40 10/09/19 16:00 82 10/09/19 15:00 84 17 119/62 (81) 100 10/09/19 14:45 85 16 40 10/09/19 14:00 83 29 178/74 (108) 100 10/09/19 13:05 79 17 40 10/09/19 13:00 77 19 132/73 (92) 100 10/09/19 12:00 98.4 79 17 139/68 (91) 100 10/09/19 12:00 40 10/09/19 12:00 87 10/09/19 12:00 Mechanical Ventilator 10/09/19 11:00 83 15 156/85 (108) 100 10/09/19 10:59 78 14 40 10/09/19 10:00 81 16 149/85 (106) 100 10/09/19 09:13 80 20 40 10/09/19 09:08 100 10/09/19 09:00 80 14 151/63 (92) 100 10/09/19 08:29 83 138/65 10/09/19 08:00 98.2 81 13 138/65 (89) 100 10/09/19 08:00 81 10/09/19 08:00 Mechanical Ventilator 10/09/19 08:00 40 10/09/19 07:17 81 16 100 Mechanical Ventilator 100 10/09/19 07:11 81 16 40 10/09/19 07:00 82 25 130/61 (84) 100 10/09/19 06:30 79 19 10/09/19 06:00 80 14 129/64 (85) 100 10/09/19 05:30 78 15 40 10/09/19 05:00 97.4 74 12 127/55 (79) 100 10/09/19 04:00 Mechanical Ventilator 10/09/19 04:00 98.8 78 15 151/56 (87) 100 10/09/19 04:00 77 10/09/19 04:00 40 10/09/19 03:30 81 20 40 10/09/19 03:00 80 15 120/53 (75) 100 10/09/19 02:00 80 15 131/70 (90) 100 10/09/19 01:00 82 15 129/62 (84) 100 10/09/19 00:30 83 23 40 10/09/19 00:00 82 10/09/19 00:00 98.1 84 19 126/74 (91) 100 10/09/19 00:00 40 10/09/19 00:00 Mechanical Ventilator 10/08/19 23:30 82 14 40 10/08/19 23:00 82 15 122/55 (77) 100 10/08/19 22:00 84 16 113/60 (77) 100 I&O Intake and Output 10/08/19 10/09/19 19:00 07:00 Intake Total 920 ml 925 ml Output Total 530 ml 495 ml Balance 390 ml 430 ml Intake Free Water 150 ml IV Total 55 ml Tube Feeding 720 ml 660 ml Other 200 ml 60 ml Output Urine Total 530 ml 495 ml Dressing: other Wound: other Drains: other Cardiovascular: RSR Respiratory: decreased breath sounds Abdomen: soft, non-tender, present bowel sounds Extremities: no cyanosis Laboratory Tests Test 10/09/19 05:30 10/09/19 10:20 White Blood Count 12.9 K/UL (4.8-10.8) H Red Blood Count 2.84 M/UL (4.70-6.10) L Hemoglobin 7.4 G/DL (14.2-18.0) L Hematocrit 22.8 % (42.0-52.0) L Mean Corpuscular Volume 80 FL (80-99) Mean Corpuscular Hemoglobin 26.2 PG (27.0-31.0) L Mean Corpuscular Hemoglobin Concent 32.5 G/DL (32.0-36.0) Red Cell Distribution Width 16.5 % (11.6-14.8) H Platelet Count 362 K/UL (150-450) Mean Platelet Volume 5.0 FL (6.5-10.1) L Neutrophils (%) (Auto) % (45.0-75.0) Lymphocytes (%) (Auto) % (20.0-45.0) Monocytes (%) (Auto) % (1.0-10.0) Eosinophils (%) (Auto) % (0.0-3.0) Basophils (%) (Auto) % (0.0-2.0) Differential Total Cells Counted 100 Neutrophils % (Manual) 80 % (45-75) H Lymphocytes % (Manual) 14 % (20-45) L Monocytes % (Manual) 6 % (1-10) Eosinophils % (Manual) 0 % (0-3) Basophils % (Manual) 0 % (0-2) Band Neutrophils 0 % (0-8) Platelet Estimate Adequate Platelet Morphology Normal Hypochromasia 2+ Anisocytosis 1+ Sodium Level 137 MMOL/L (136-145) Potassium Level 4.8 MMOL/L (3.5-5.1) Chloride Level 104 MMOL/L (98-107) Carbon Dioxide Level 26 MMOL/L (21-32) Anion Gap 7 mmol/L (5-15) Blood Urea Nitrogen 23 mg/dL (7-18) H Creatinine 1.1 MG/DL (0.55-1.30) Estimat Glomerular Filtration Rate > 60 mL/min (>60) Glucose Level 102 MG/DL (74-106) Uric Acid 4.0 MG/DL (2.6-7.2) Calcium Level 8.6 MG/DL (8.5-10.1) Phosphorus Level 3.8 MG/DL (2.5-4.9) Magnesium Level 2.1 MG/DL (1.8-2.4) Total Bilirubin 0.4 MG/DL (0.2-1.0) Aspartate Amino Transf (AST/SGOT) 48 U/L (15-37) H Alanine Aminotransferase (ALT/SGPT) 40 U/L (12-78) Alkaline Phosphatase 225 U/L (46-116) H C-Reactive Protein, Quantitative 19.2 mg/dL (0.00-0.90) H Pro-B-Type Natriuretic Peptide 279 pg/mL (0-125) H Total Protein 6.8 G/DL (6.4-8.2) Albumin 1.3 G/DL (3.4-5.0) L Globulin 5.5 g/dL Albumin/Globulin Ratio 0.2 (1.0-2.7) L Iron Level 13 ug/dL (50-175) L Total Iron Binding Capacity 103 ug/dL (250-450) L Percent Iron Saturation 13 % (15-50) L Unsaturated Iron Binding 90 ug/dL (112-346) L Ferritin 533 NG/ML (8-388) H Vitamin B12 Level 1015 PG/ML (193-986) H Folate 29.4 NG/ML (8.6-58.9) Plan Problems: (1) UTI (urinary tract infection) (2) Acute respiratory failure Assessment & Plan: There is infiltrate suspected in the right perihilar region obscuring the right hilum. There is a hazy opacity that may partially be accounted for by pleural fluid on the right. Reticular densities are present on the left in the perihilar aspect of the lung. Endotracheal tube is in good position just above the anselmo. Heart size is normal. IMPRESSION: Suspected perihilar airspace disease in the right lung suspicious for pneumonia. Reticular nodular infiltrate in the left lung noted also. Right pleural effusion suspected. Endotracheal tube in good position cont vents support Lungs: Similar bilateral interstitial prominence, greater on the right. Stable right perihilar, mid and lower lung opacities. Similar left lung base opacity. Pleural space: Small left pleural effusion is stable. Loculated right pleural effusion is stable. No pneumothorax. Heart: Unremarkable. No cardiomegaly. Mediastinum: Unremarkable. Bones/joints: Unremarkable. Tubes, lines and devices: Endotracheal tube has been pulled back and is 10 cm above the anselmo near the thoracic inlet. IMPRESSION: Endotracheal tube has been pulled back and is 10 cm above the anselmo near the thoracic inlet. Remainder findings are stable. may need thoracentesis soon Moderate size right pleural effusion with right upper and lower lobe atelectasis/consolidation, as well as mild pulmonary edema.. 1. Patchy opacities throughout the right lung left mid and lower lung, similar to slightly increased. Possible small bilateral pleural effusions. 2. Endotracheal tube terminates in the region of the lower thoracic trachea above the anselmo. consider trach (3) Sepsis Assessment & Plan: Pt cachetic and presented on admission with multiple pressure injuries. Partial thickness pressure injury Cleft of L ear(L)1.2cm x (W)0.4cm. Base of wound moist and viable with small amt sanguineous exudate. Partial thickness pressure injury cleft of R ear(L)0.5cm x (W)0.7cm. Base of wound moist and viable Periwound erythematous.Small amt sanguineous exudate noted. Sacral DTPI(L)5cm x (W)10.5cm. Base of injury is purple with maroon borders. Coccygeal bony protrusion with darker skin tone, and small opening noted to R gluteus (L)0.5cm x (W)0.5cm within base of injury. No further skin breakdown periwound. Intact blood blister noted to R 1st metatarsal head(L)1.1cm x (W)2.5cm. DTPI noted to L heel extending into plantar aspect. Base of injury presents as an intact blood filled blister. Periwound is boggy with non-blanching erythema. R heel is boggy but blanchable. wounds unlikely etiology of sepsis respiratory but given current condition high risk for breakdown and worsening will monitor closely discussed with RN and staff great care being provided coded acls intubated in ICU prognosis guarded Tx.Plan: Apply Betadine to clefts of R and L ears. Pad oxygen tubing with gauze and keep oxygen tubing loose. Apply Moisture Barrier Paste to Sacrum. Cover with Optifoam drsg. Change every 3 days and prn. Apply Betadine to L heel. Cover with Optifoam drsg. Change every 3 days and prn. Apply Betadine to R 1st metatarsal head. Cover with Optifoam drsg. Change every 3 days and prn. Apply Cavilon Skin Barrier R heel. Cover with Optifoam drsg. Change every 7 days and prn. Reposition at least every 2hours or as tolerated. Off-load heels with pillow. on air mattress but not very comfortable appearing cont current care / pulm management (4) Severe anemia (5) Nosocomial pneumonia (6) Atrial fibrillation (7) Acute metabolic encephalopathy (8) History of CVA (cerebrovascular accident) (9) Diabetes mellitus (10) Hypothyroidism (11) Alzheimer's dementia (12) PVC (premature ventricular contraction) (13) Hypertension (14) Squamous cell esophageal cancer (15) Feeding by G-tube (16) Dehydration (17) Anemia (18) Severe malnutrition Assessment & Plan: DAILY ESTIMATED NEEDS: Needs based on underweight, suspected wt loss, wounds/ 63kg 25-33 kcals/kg 9440-1323 total kcals 1.25-2 g protein/kg 78-126 g total protein 25-30 mL/kg 1263-8486 total fluid mLs NUTRITION DIAGNOSIS: * Swallowing difficulty R/T dysphagia w/ h/o CVA as evidenced by now s/p recent PEG placement (08/08/19), on GT feeds, held at time, s/p code blue (09/07), orally intubated, now extubated. * Increased kcal/prot intake needs R/T suspected significant wt loss and underweight status, wounds as evidenced by 10lbs/6.7% wt loss in 1 month, 76% IBW w/ BMI of 18.4, admitted w/ DTPI wound @ sacrum, Lt heel, partial thickness pressure injury cleft of R L ear. CURRENT TF:Osmolite 1.2 @ 60ml/hr x 22 hrs ENTERAL NUTRITION RECOMMENDATIONS: Osmolite 1.2 @ 60ml/hr x 22 hrs + Prosource x 1 to provide 1320ml, 1584kcal, 73g +11g prot, 1082ml free water - Add Prosource x 1 to meet protein needs - HOLD 1 hr before and after synthroid meds. add Prosource 1 pack daily to better meet est pro needs - Flush per MD/ HOB over 30 degrees WITH ELEV BG, rec TF change to Glucerna 1.2 w/ a goal of 60ml/hr x22 hrs to provide 1320ml, 1584kcal, 79g prot ADDITIONAL RECOMMENDATIONS: * PER SNF: HT=6'1" WT= 139lbs ("August weight" from SNF) -> calibrated bedscale wt * Monitor K, need for TF change (K 5.9 upon adm, now wnl) * Wound care: add Vit C 500mg QD + Wesley 1pkt BID via PEG * Monitor BGs, need for NISS: h/o DM per MD (checking A1C not suggested given low hgb) (19) Encounter for PEG (percutaneous endoscopic gastrostomy) (20) At high risk for aspiration (21) Pleural effusion (22) Suspected COVID-19 virus infection Jan Mora October 09, 2019 21:46
[2019-10-10] VITALS (24 sets, daily range): BP systolic 101–148; BP diastolic 50–76
[2019-10-10] MEDS: Meropenem 1 GM in NS 55 ML IVPB SCH ×3 (05:47→22:43)
[2019-10-10 07:17] LABS: BASOPHILS % (AUTO) 0.7 % (0.0-2.0); EOSINOPHILS % (AUTO) 4.4 % (0.0-3.0); HEMATOCRIT 26.2 % (42.0-52.0); HEMOGLOBIN 8.6 G/DL (14.2-18.0); LYMPHOCYTES % (AUTO) 14.6 % (20.0-45.0); MEAN CORPUSCULAR VOLUME 80 FL (80-99); MONOCYTES % (AUTO) 9.1 % (1.0-10.0); NEUTROPHILS % (AUTO) 71.3 % (45.0-75.0); PLATELET COUNT 389 K/UL (150-450); RED BLOOD COUNT 3.26 M/UL (4.70-6.10); RED CELL DISTRIBUTION WIDTH 16.5 % (11.6-14.8); WHITE BLOOD COUNT 11.3 K/UL (4.8-10.8)
[2019-10-10 07:34] LABS: ANION GAP 7 mmol/L (5-15); BLOOD UREA NITROGEN 23 mg/dL (7-18); CALCIUM 8.9 MG/DL (8.5-10.1); CARBON DIOXIDE 27 MMOL/L (21-32); CHLORIDE 103 MMOL/L (98-107); POTASSIUM 4.7 MMOL/L (3.5-5.1); SODIUM 137 MMOL/L (136-145)
[2019-10-10] MEDS: Docusate 100mg/10ml Liq GT SCH ×3 (08:18→18:00)
[2019-10-10] MEDS: Heparin 5000 units/ml inj SUBQ SCH ×2 (08:20→20:49)
--- NOTE | 2019-10-10 09:51 | Nephrology Progress Note ---
Assessment/Plan Problem List: (1) RAMAN (acute kidney injury) Assessment: Serum creatinine normalized with hydration (2) Dehydration (3) Suspected COVID-19 virus infection (4) Anemia (5) Sepsis (6) Diabetes mellitus (7) Hypothyroidism Assessment - Acute renal failure - Severe anemia - Sepsis, pneumonia, acute respiratory failure, suspected: Viewed 19 virus infection - Diabetes mellitus - Hypothyroidism - Feeding by G-tube - Squamous cell esophageal cancer - History of CVA (cerebrovascular accident) Plan October 4: Stable from renal standpoint of view Hemoglobin higher today October 3 Discussed with RN Remains intubated on ventilator Hemoglobin is drifting down Will reorder iron panel Remains stable from renal standpoint of view Remains full code October 2: Discussed with RN. Patient remains intubated. Family declined comfort care. Weaning trial is being attempted Main stable from renal standpoint of view We will order labs for tomorrow. Previously Patient was coded early September 23 morning and back in ICU intubated Serum creatinine miguel to 1.5, now back to normal Stable from renal standpoint of view at this point He is status remains full code Tested negative for COVID-19 Previously: Pneumonia SARS-CoV neg x2 MRSA screen pos sp cx: PSA and proteus Changes Seroquel to "as needed" due to bradycardia Discontinue IV fluid Monitor renal parameters, serum creatinine Adjust electrolytes with supplements Increase Synthroid dose Avoid nephrotoxic's as possible Ventilator management Urine studies Per orders Subjective ROS Limited/Unobtainable: Yes Objective Objective Last 24 Hour Vital Signs Date Time Temp Pulse Resp B/P (MAP) Pulse Ox O2 Delivery O2 Flow Rate FiO2 10/10/19 08:58 86 17 40 10/10/19 08:19 88 112/58 10/10/19 08:00 40 10/10/19 08:00 Mechanical Ventilator 10/10/19 08:00 98.8 86 16 112/58 (76) 100 10/10/19 07:02 89 15 40 10/10/19 07:00 83 16 115/63 (80) 100 10/10/19 06:30 86 19 10/10/19 06:00 86 14 133/60 (84) 100 10/10/19 05:21 90 14 40 10/10/19 05:00 87 15 121/64 (83) 100 10/10/19 04:00 40 10/10/19 04:00 Mechanical Ventilator 10/10/19 04:00 97.8 88 14 112/59 (76) 100 10/10/19 04:00 87 10/10/19 03:42 88 16 40 10/10/19 03:00 86 15 101/74 (83) 100 10/10/19 02:00 80 15 112/68 (83) 100 10/10/19 01:22 78 17 40 10/10/19 01:00 79 14 112/55 (74) 100 10/10/19 00:00 40 10/10/19 00:00 Mechanical Ventilator 10/10/19 00:00 83 10/10/19 00:00 98.4 81 16 101/74 (83) 100 10/09/19 23:39 78 19 40 10/09/19 23:00 81 17 101/48 (65) 100 10/09/19 22:00 81 17 124/48 (73) 100 10/09/19 21:48 81 21 40 10/09/19 21:00 82 18 121/56 (77) 98 10/09/19 20:13 83 111/71 10/09/19 20:00 81 10/09/19 20:00 Mechanical Ventilator 10/09/19 20:00 40 10/09/19 20:00 99.3 80 20 111/71 (84) 98 10/09/19 19:52 80 19 40 10/09/19 19:00 81 17 124/64 (84) 100 10/09/19 18:00 80 18 112/61 (78) 100 10/09/19 17:00 81 15 136/102 (113) 100 10/09/19 16:48 79 14 40 10/09/19 16:00 Mechanical Ventilator 10/09/19 16:00 82 15 125/67 (86) 100 10/09/19 16:00 40 10/09/19 16:00 82 10/09/19 15:00 84 17 119/62 (81) 100 10/09/19 14:45 85 16 40 10/09/19 14:00 83 29 178/74 (108) 100 10/09/19 13:05 79 17 40 10/09/19 13:00 77 19 132/73 (92) 100 10/09/19 12:00 98.4 79 17 139/68 (91) 100 10/09/19 12:00 40 10/09/19 12:00 87 10/09/19 12:00 Mechanical Ventilator 10/09/19 11:00 83 15 156/85 (108) 100 10/09/19 10:59 78 14 40 10/09/19 10:00 81 16 149/85 (106) 100 Intake and Output 10/09/19 10/10/19 19:00 07:00 Intake Total 955 ml 895 ml Output Total 495 ml 655 ml Balance 460 ml 240 ml Intake Free Water 180 ml 120 ml IV Total 55 ml 55 ml Tube Feeding 720 ml 720 ml Output Urine Total 495 ml 655 ml # Bowel Movements 2 Laboratory Tests 10/09/19 10:20: Iron Level 13L, Total Iron Binding Capacity 103L, Percent Iron Saturation 13L, Unsaturated Iron Binding 90L, Ferritin 533H, Vitamin B12 Level 1015H, Folate 29.4 10/10/19 04:00: Stool Occult Blood [Pending] 10/10/19 05:10: White Blood Count 11.3H, Red Blood Count 3.26L, Hemoglobin 8.6L, Hematocrit 26.2L, Mean Corpuscular Volume 80, Mean Corpuscular Hemoglobin 26.4L, Mean Corpuscular Hemoglobin Concent 32.8, Red Cell Distribution Width 16.5H, Platelet Count 389, Mean Platelet Volume 5.3L, Neutrophils (%) (Auto) 71.3, Lymphocytes (%) (Auto) 14.6L, Monocytes (%) (Auto) 9.1, Eosinophils (%) (Auto) 4.4H, Basophils (%) (Auto) 0.7, Sodium Level 137, Potassium Level 4.7, Chloride Level 103, Carbon Dioxide Level 27, Anion Gap 7, Blood Urea Nitrogen 23H, Creatinine 1.0, Estimat Glomerular Filtration Rate > 60, Glucose Level 103, Calcium Level 8.9 Height (Feet): 5 Height (Inches): 11.00 Weight (Pounds): 144 General Appearance: no apparent distress EENT: other - Intubated and vented Cardiovascular: tachycardia Respiratory/Chest: decreased breath sounds Abdomen: soft Objective no change Clovis Benites MD October 10, 2019 09:51
--- NOTE | 2019-10-10 10:23 | General Progress Note ---
Assessment/Plan Status: unchanged Assessment/Plan: 1. Esophageal cancer. 2. Dysphagia. 3. Diabetes type 2. 4. Dementia. 5. CVA. 6. Hypothyroidism. 7. Seizure disorder. 8. Iron deficiency anemia. 9. Respiratory failure. 10. Dysphagia with G-tube stable H&H GT has been changed and working well GT flushes dietitian in put appreciated>>> TF Javity subhash abx per id pulm care bowel regimen recent labs and notes reviewed D/W the nurse will fu Subjective ROS Limited/Unobtainable: No Allergies: Coded Allergies: PENICILLINS (Verified Allergy, Unknown, 10/27/18) tolretas cephalosporins Objective Last 24 Hour Vital Signs Date Time Temp Pulse Resp B/P (MAP) Pulse Ox O2 Delivery O2 Flow Rate FiO2 10/10/19 08:58 86 17 40 10/10/19 08:19 88 112/58 10/10/19 08:00 40 10/10/19 08:00 Mechanical Ventilator 10/10/19 08:00 98.8 86 16 112/58 (76) 100 10/10/19 07:02 89 15 40 10/10/19 07:00 83 16 115/63 (80) 100 10/10/19 06:30 86 19 10/10/19 06:00 86 14 133/60 (84) 100 10/10/19 05:21 90 14 40 10/10/19 05:00 87 15 121/64 (83) 100 10/10/19 04:00 40 10/10/19 04:00 Mechanical Ventilator 10/10/19 04:00 97.8 88 14 112/59 (76) 100 10/10/19 04:00 87 10/10/19 03:42 88 16 40 10/10/19 03:00 86 15 101/74 (83) 100 10/10/19 02:00 80 15 112/68 (83) 100 10/10/19 01:22 78 17 40 10/10/19 01:00 79 14 112/55 (74) 100 10/10/19 00:00 40 10/10/19 00:00 Mechanical Ventilator 10/10/19 00:00 83 10/10/19 00:00 98.4 81 16 101/74 (83) 100 10/09/19 23:39 78 19 40 5/3/20 23:00 81 17 101/48 (65) 100 10/09/19 22:00 81 17 124/48 (73) 100 10/09/19 21:48 81 21 40 10/09/19 21:00 82 18 121/56 (77) 98 10/09/19 20:13 83 111/71 10/09/19 20:00 81 10/09/19 20:00 Mechanical Ventilator 10/09/19 20:00 40 10/09/19 20:00 99.3 80 20 111/71 (84) 98 10/09/19 19:52 80 19 40 10/09/19 19:00 81 17 124/64 (84) 100 10/09/19 18:00 80 18 112/61 (78) 100 10/09/19 17:00 81 15 136/102 (113) 100 10/09/19 16:48 79 14 40 10/09/19 16:00 Mechanical Ventilator 10/09/19 16:00 82 15 125/67 (86) 100 10/09/19 16:00 40 10/09/19 16:00 82 10/09/19 15:00 84 17 119/62 (81) 100 10/09/19 14:45 85 16 40 10/09/19 14:00 83 29 178/74 (108) 100 10/09/19 13:05 79 17 40 10/09/19 13:00 77 19 132/73 (92) 100 10/09/19 12:00 98.4 79 17 139/68 (91) 100 10/09/19 12:00 40 10/09/19 12:00 87 10/09/19 12:00 Mechanical Ventilator 10/09/19 11:00 83 15 156/85 (108) 100 10/09/19 10:59 78 14 40 Intake and Output 10/09/19 10/10/19 19:00 07:00 Intake Total 955 ml 895 ml Output Total 495 ml 655 ml Balance 460 ml 240 ml Intake Free Water 180 ml 120 ml IV Total 55 ml 55 ml Tube Feeding 720 ml 720 ml Output Urine Total 495 ml 655 ml # Bowel Movements 2 Laboratory Tests 10/10/19 04:00: Stool Occult Blood [Pending] 10/10/19 05:10: White Blood Count 11.3H, Red Blood Count 3.26L, Hemoglobin 8.6L, Hematocrit 26.2L, Mean Corpuscular Volume 80, Mean Corpuscular Hemoglobin 26.4L, Mean Corpuscular Hemoglobin Concent 32.8, Red Cell Distribution Width 16.5H, Platelet Count 389, Mean Platelet Volume 5.3L, Neutrophils (%) (Auto) 71.3, Lymphocytes (%) (Auto) 14.6L, Monocytes (%) (Auto) 9.1, Eosinophils (%) (Auto) 4.4H, Basophils (%) (Auto) 0.7, Sodium Level 137, Potassium Level 4.7, Chloride Level 103, Carbon Dioxide Level 27, Anion Gap 7, Blood Urea Nitrogen 23H, Creatinine 1.0, Estimat Glomerular Filtration Rate > 60, Glucose Level 103, Calcium Level 8.9 Height (Feet): 5 Height (Inches): 11.00 Weight (Pounds): 144 General Appearance: no apparent distress EENT: PERRL/EOMI Neck: normal alignment Cardiovascular: normal rate Respiratory/Chest: decreased breath sounds Abdomen: normal bowel sounds, non tender, soft Extremities: non-tender Darrick Rosario MD October 10, 2019 10:23
--- NOTE | 2019-10-10 10:42 | Diagnostic Imaging Report ---
Indication: Shortness of breath Technique: One view of the chest Comparison: 10/06/2019 Findings: Interim marked increase in size of previously demonstrated right pleural effusion, with currently much smaller volume of aerated lung. There is probably a component of atelectasis as well, as mediastinum appears slightly shifted to the right.. The left lung is clear, and there is decreased left basilar opacity. Impression: Markedly increased and now large right pleural effusion, over 4 days There is probably some atelectasis on the right as well in addition to the passive atelectasis from pleural fluid Improved aeration of the left lung
--- NOTE | 2019-10-10 11:05 | Pulmonolgy Critical Care Note ---
Critical Care - Asmt/Plan Problems: (1) Acute respiratory failure (2) Pleural effusion Assessment & Plan: s/p thoracentesis times 2, increasing (3) Nosocomial pneumonia (4) Sepsis (5) Squamous cell esophageal cancer (6) Diabetes mellitus (7) Severe malnutrition (8) Alzheimer's dementia (9) History of CVA (cerebrovascular accident) (10) Feeding by G-tube Respiratory: monitor respiratory rate, adjust FIO2, CXR Cardiac: continue to monitor HR/BP Renal: F/U I&O, keep IV fluid, check electrolytes Infectious Disease: check cultures Gastrointestinal: continue feedings/current rate Endocrine: monitor blood sugar Hematologic: transfuse if hgb<8.5 Neurologic: PRN Ativan, keep patient comfortable Affect: PRN ativan Prophylaxis: Protonix Disposition: keep in ICU Notes Reviewed: paving foreman, cardio Discussed with: nurses, consultants, foster care case manager, other - tried to call the niece again, nobody answered. Critical Care - Objective Last 24 Hour Vital Signs Date Time Temp Pulse Resp B/P (MAP) Pulse Ox O2 Delivery O2 Flow Rate FiO2 10/10/19 10:00 83 17 110/55 (73) 100 10/10/19 09:00 86 18 117/66 (83) 76 10/10/19 08:58 86 17 40 10/10/19 08:19 88 112/58 10/10/19 08:00 40 10/10/19 08:00 Mechanical Ventilator 10/10/19 08:00 98.8 86 16 112/58 (76) 100 10/10/19 07:15 111 10/10/19 07:02 89 15 40 10/10/19 07:00 83 16 115/63 (80) 100 10/10/19 06:30 86 19 10/10/19 06:00 86 14 133/60 (84) 100 10/10/19 05:21 90 14 40 10/10/19 05:00 87 15 121/64 (83) 100 10/10/19 04:00 40 10/10/19 04:00 Mechanical Ventilator 10/10/19 04:00 97.8 88 14 112/59 (76) 100 10/10/19 04:00 87 10/10/19 03:42 88 16 40 10/10/19 03:00 86 15 101/74 (83) 100 10/10/19 02:00 80 15 112/68 (83) 100 10/10/19 01:22 78 17 40 10/10/19 01:00 79 14 112/55 (74) 100 10/10/19 00:00 40 10/10/19 00:00 Mechanical Ventilator 10/10/19 00:00 83 10/10/19 00:00 98.4 81 16 101/74 (83) 100 10/09/19 23:39 78 19 40 10/09/19 23:00 81 17 101/48 (65) 100 10/09/19 22:00 81 17 124/48 (73) 100 10/09/19 21:48 81 21 40 10/09/19 21:00 82 18 121/56 (77) 98 10/09/19 20:13 83 111/71 10/09/19 20:00 81 10/09/19 20:00 Mechanical Ventilator 10/09/19 20:00 40 10/09/19 20:00 99.3 80 20 111/71 (84) 98 10/09/19 19:52 80 19 40 10/09/19 19:00 81 17 124/64 (84) 100 10/09/19 18:00 80 18 112/61 (78) 100 10/09/19 17:00 81 15 136/102 (113) 100 10/09/19 16:48 79 14 40 10/09/19 16:00 Mechanical Ventilator 10/09/19 16:00 82 15 125/67 (86) 100 10/09/19 16:00 40 10/09/19 16:00 82 10/09/19 15:00 84 17 119/62 (81) 100 10/09/19 14:45 85 16 40 10/09/19 14:00 83 29 178/74 (108) 100 10/09/19 13:05 79 17 40 10/09/19 13:00 77 19 132/73 (92) 100 10/09/19 12:00 98.4 79 17 139/68 (91) 100 10/09/19 12:00 40 10/09/19 12:00 87 10/09/19 12:00 Mechanical Ventilator 10/09/19 11:00 83 15 156/85 (108) 100 Status: obtunded Condition: critical HEENT: atraumatic, normocephalic Lungs: rales, rhonchi Heart: HR/BP stable Abdomen: soft Extremities: no C/C/E Critical Care - Subjective ROS Limited/Unobtainable: Yes Interval Events: looks comfortable Condition: critical EKG Rhythm: Sinus Rhythm FI02: 40 Vent Support Breath Rate: 12 Vent Support Mode: AC Vent Tidal Volume: 550 Sputum Amount: Small PEEP: 5.0 PIP: 27 Tube Feeding Amount: 60 I&O: Intake and Output 10/09/19 10/10/19 19:00 07:00 Intake Total 955 ml 895 ml Output Total 495 ml 655 ml Balance 460 ml 240 ml Intake Free Water 180 ml 120 ml IV Total 55 ml 55 ml Tube Feeding 720 ml 720 ml Output Urine Total 495 ml 655 ml # Bowel Movements 2 CXR: increasing right effusion ET-Tube: 7.5 ET Position: 26 Labs: Laboratory Tests Test 10/10/19 04:00 10/10/19 05:10 Stool Occult Blood Pending White Blood Count 11.3 K/UL (4.8-10.8) H Red Blood Count 3.26 M/UL (4.70-6.10) L Hemoglobin 8.6 G/DL (14.2-18.0) L Hematocrit 26.2 % (42.0-52.0) L Mean Corpuscular Volume 80 FL (80-99) Mean Corpuscular Hemoglobin 26.4 PG (27.0-31.0) L Mean Corpuscular Hemoglobin Concent 32.8 G/DL (32.0-36.0) Red Cell Distribution Width 16.5 % (11.6-14.8) H Platelet Count 389 K/UL (150-450) Mean Platelet Volume 5.3 FL (6.5-10.1) L Neutrophils (%) (Auto) 71.3 % (45.0-75.0) Lymphocytes (%) (Auto) 14.6 % (20.0-45.0) L Monocytes (%) (Auto) 9.1 % (1.0-10.0) Eosinophils (%) (Auto) 4.4 % (0.0-3.0) H Basophils (%) (Auto) 0.7 % (0.0-2.0) Sodium Level 137 MMOL/L (136-145) Potassium Level 4.7 MMOL/L (3.5-5.1) Chloride Level 103 MMOL/L (98-107) Carbon Dioxide Level 27 MMOL/L (21-32) Anion Gap 7 mmol/L (5-15) Blood Urea Nitrogen 23 mg/dL (7-18) H Creatinine 1.0 MG/DL (0.55-1.30) Estimat Glomerular Filtration Rate > 60 mL/min (>60) Glucose Level 103 MG/DL (74-106) Calcium Level 8.9 MG/DL (8.5-10.1) Vania Hui MD October 10, 2019 11:05
--- NOTE | 2019-10-10 12:08 | Infectious Diseases Prog Note ---
Assessment/Plan Assessment/Plan 09/23 SP asystole cardiac arrest VDRF 09/23 Fever; SP Mild leukocytosis, improving Probable UTI -10/01 Bcx Neg u/a wbc tnct; ucx 30-40k C.albicans PNA VDRF, sp intubation 09/08, sp extubation 09/18, re-intubated 09/23 SARS-CoV neg x3 (09/06, 09/08, 09/30) MRSA screen pos 10/09 CXR: Markedly increased and now large right pleural effusion, over 4 days. There is probably some atelectasis on the right as well in addition to the passive atelectasis from pleural fluid. Improved aeration of the left lung 10/05 CXR: Focal patchy infiltrate in the left suprahilar region, not evident previously. Slightly increased small right pleural effusion. Obscured left hemidiaphragm, likely retrocardiac consolidation and/or left pleural fluid , unchanged Stable cardiomegaly 10/02 CXR: Increasing pleural fluid and possibly parenchymal consolidation at the right lung base. Unchanged left basilar pleural and parenchymal disease. sp cx PSA (hensley S), P. stuarti (R. cefepime, ancef, levaquin; S zosyn, ertapenem) 09/30 CXR: Patchy opacities throughout the right lung left mid and lower lung, similar to slightly increased. Possible small bilateral pleural effusions. 09/29 CXR: Increasing right mid and lower lung opacity, may indicate increasing pleural fluid, increasing infiltrate, or both. 09/28 CXR: Developing hazy right basilar opacity. This could represent reaching layering pleural fluid. This could also represent reexpansion pulmonary edema given recent high-volume thoracentesis, or could represent developing ammonia or pulmonary edema. Hazy left basilar opacity, unchanged, may reflect parenchymal infiltrate versus pleural fluid versus both 09/25 CXR: Large right pleural effusion is again demonstrated. Small left pleural effusion is again demonstrated. Left lung is otherwise clear. sp cx PsA (R zozyn, S levo, gentamycin) 09/24 CXR: Moderate size right pleural effusion with right upper and lower lobe atelectasis/consolidation, as well as mild pulmonary edema.. 09/17 CXR: Similar bilateral interstitial prominence, greater on the right.Stable right perihilar, mid and lower lung opacities. Similar left lung base opacity. Small left pleural effusion is stable. Loculated right pleural effusion is stable. No pneumothorax. CXR: Right pleural effusion, also demonstrated on prior 08/09/2019 exam, slightly increased. Hazy right lung parenchymal opacity probably represents a superimposed pleural fluid but infiltrate also possible. 09/06 sp cx: PSA (hensley S) and proteus (hensley S) R pleural effusion, exudative -09/18 SP thorancetesis; removal of 2050 mL fluid; Fluid prot 5 (serum prot 7.2 ); cx Neg QTc 419 RAMAN, improving DM HTN CVA Dementia Nonverbal G tube Plan: Continue Meropenem #4/-7 10/06 SP Levaquin #7 10/05 SP IV Vancomycin #6 09/19 SPcefepime # 09/09 SP vanc #4 ( Cr increased) ICU care monitor temp and CBC COVID neg x3 DW RN Thank you for this consult. [facility] will continue to follow the patient with you. Subjective Allergies: Coded Allergies: PENICILLINS (Verified Allergy, Unknown, 10/27/18) tolretas cephalosporins Subjective afebrile Fio2 40% mild leukocytosis improving Objective Vital Signs Last 24 Hour Vital Signs Date Time Temp Pulse Resp B/P (MAP) Pulse Ox O2 Delivery O2 Flow Rate FiO2 10/10/19 11:00 87 19 113/62 (79) 100 10/10/19 10:00 83 17 110/55 (73) 100 10/10/19 09:00 86 18 117/66 (83) 76 10/10/19 08:58 86 17 40 10/10/19 08:19 88 112/58 10/10/19 08:00 40 10/10/19 08:00 Mechanical Ventilator 10/10/19 08:00 98.8 86 16 112/58 (76) 100 10/10/19 07:15 111 10/10/19 07:02 89 15 40 10/10/19 07:00 83 16 115/63 (80) 100 10/10/19 06:30 86 19 10/10/19 06:00 86 14 133/60 (84) 100 10/10/19 05:21 90 14 40 10/10/19 05:00 87 15 121/64 (83) 100 10/10/19 04:00 40 10/10/19 04:00 Mechanical Ventilator 10/10/19 04:00 97.8 88 14 112/59 (76) 100 10/10/19 04:00 87 10/10/19 03:42 88 16 40 10/10/19 03:00 86 15 101/74 (83) 100 10/10/19 02:00 80 15 112/68 (83) 100 10/10/19 01:22 78 17 40 10/10/19 01:00 79 14 112/55 (74) 100 10/10/19 00:00 40 10/10/19 00:00 Mechanical Ventilator 10/10/19 00:00 83 10/10/19 00:00 98.4 81 16 101/74 (83) 100 10/09/19 23:39 78 19 40 10/09/19 23:00 81 17 101/48 (65) 100 10/09/19 22:00 81 17 124/48 (73) 100 10/09/19 21:48 81 21 40 10/09/19 21:00 82 18 121/56 (77) 98 10/09/19 20:13 83 111/71 10/09/19 20:00 81 10/09/19 20:00 Mechanical Ventilator 10/09/19 20:00 40 10/09/19 20:00 99.3 80 20 111/71 (84) 98 10/09/19 19:52 80 19 40 10/09/19 19:00 81 17 124/64 (84) 100 10/09/19 18:00 80 18 112/61 (78) 100 10/09/19 17:00 81 15 136/102 (113) 100 10/09/19 16:48 79 14 40 10/09/19 16:00 Mechanical Ventilator 10/09/19 16:00 82 15 125/67 (86) 100 10/09/19 16:00 40 10/09/19 16:00 82 10/09/19 15:00 84 17 119/62 (81) 100 10/09/19 14:45 85 16 40 10/09/19 14:00 83 29 178/74 (108) 100 10/09/19 13:05 79 17 40 10/09/19 13:00 77 19 132/73 (92) 100 Height (Feet): 5 Height (Inches): 11.00 Weight (Pounds): 144 Objective Gen: NAD. well nourished HEENT: ETT. oral secretions Resp: coarse. equal chest rise. regular rate and rhythm. Abd: Soft. no TTP. nondistended. G tube site c/d/i. Neuro: opens eyes to voice and follows simple commands Laboratory Tests Test 10/10/19 04:00 10/10/19 05:10 Stool Occult Blood Pending White Blood Count 11.3 K/UL (4.8-10.8) H Red Blood Count 3.26 M/UL (4.70-6.10) L Hemoglobin 8.6 G/DL (14.2-18.0) L Hematocrit 26.2 % (42.0-52.0) L Mean Corpuscular Volume 80 FL (80-99) Mean Corpuscular Hemoglobin 26.4 PG (27.0-31.0) L Mean Corpuscular Hemoglobin Concent 32.8 G/DL (32.0-36.0) Red Cell Distribution Width 16.5 % (11.6-14.8) H Platelet Count 389 K/UL (150-450) Mean Platelet Volume 5.3 FL (6.5-10.1) L Neutrophils (%) (Auto) 71.3 % (45.0-75.0) Lymphocytes (%) (Auto) 14.6 % (20.0-45.0) L Monocytes (%) (Auto) 9.1 % (1.0-10.0) Eosinophils (%) (Auto) 4.4 % (0.0-3.0) H Basophils (%) (Auto) 0.7 % (0.0-2.0) Sodium Level 137 MMOL/L (136-145) Potassium Level 4.7 MMOL/L (3.5-5.1) Chloride Level 103 MMOL/L (98-107) Carbon Dioxide Level 27 MMOL/L (21-32) Anion Gap 7 mmol/L (5-15) Blood Urea Nitrogen 23 mg/dL (7-18) H Creatinine 1.0 MG/DL (0.55-1.30) Estimat Glomerular Filtration Rate > 60 mL/min (>60) Glucose Level 103 MG/DL (74-106) Calcium Level 8.9 MG/DL (8.5-10.1) Current Medications Medications (Trade) Dose Ordered Sig/Kike Route PRN Reason Start Time Stop Time Status Last Admin Dose Admin Amlodipine Besylate (Norvasc) 5 mg BID@0900,2100 NG 09/24/19 21:00 10/22/19 08:59 10/10/19 08:19 Docusate Sodium (Colace) 100 mg TID GT 10/05/19 13:00 11/03/19 08:59 10/10/19 08:18 Heparin Sodium (Porcine) (Heparin 5000 units/ml) 5,000 units EVERY 12 HOURS SUBQ 09/24/19 09:00 10/22/19 08:59 10/10/19 08:20 Lansoprazole (Prevacid) 30 mg DAILY GT 10/04/19 09:00 11/03/19 08:59 10/10/19 08:18 Meropenem 1 gm/ Sodium Chloride 55 ml @ 110 mls/hr Q8HR IVPB 10/07/19 14:00 10/12/19 13:59 10/10/19 05:47 Quetiapine Fumarate (SEROqueL) 25 mg Q8H PRN NG Agitation 09/24/19 02:35 10/30/19 02:34 10/08/19 20:45 Sennosides (Senokot) 8.6 mg DAILY PRN ORAL Constipation 10/06/19 10:15 11/05/19 10:14 10/07/19 21:56 Danielle Roach M.D. October 10, 2019 12:08
--- NOTE | 2019-10-10 15:10 | Surgery Progress Note ---
Surgery Progress Note Subjective Additional Comments no acute events labs noted exam stable on support Objective Last 24 Hour Vital Signs Date Time Temp Pulse Resp B/P (MAP) Pulse Ox O2 Delivery O2 Flow Rate FiO2 10/10/19 14:00 83 17 126/62 (83) 100 10/10/19 13:00 88 30 130/76 (94) 97 10/10/19 12:00 40 10/10/19 12:00 98.8 84 18 131/57 (81) 97 10/10/19 12:00 Mechanical Ventilator 10/10/19 11:33 83 10/10/19 11:00 87 19 113/62 (79) 100 10/10/19 10:32 86 19 40 10/10/19 10:00 83 17 110/55 (73) 100 10/10/19 09:00 86 18 117/66 (83) 100 10/10/19 08:58 86 17 40 10/10/19 08:19 88 112/58 10/10/19 08:00 40 10/10/19 08:00 Mechanical Ventilator 10/10/19 08:00 98.8 86 16 112/58 (76) 100 10/10/19 07:15 111 10/10/19 07:02 89 15 40 10/10/19 07:00 83 16 115/63 (80) 100 10/10/19 06:30 86 19 10/10/19 06:00 86 14 133/60 (84) 100 10/10/19 05:21 90 14 40 10/10/19 05:00 87 15 121/64 (83) 100 10/10/19 04:00 40 10/10/19 04:00 Mechanical Ventilator 10/10/19 04:00 97.8 88 14 112/59 (76) 100 10/10/19 04:00 87 10/10/19 03:42 88 16 40 10/10/19 03:00 86 15 101/74 (83) 100 10/10/19 02:00 80 15 112/68 (83) 100 10/10/19 01:22 78 17 40 10/10/19 01:00 79 14 112/55 (74) 100 10/10/19 00:00 40 10/10/19 00:00 Mechanical Ventilator 10/10/19 00:00 83 10/10/19 00:00 98.4 81 16 101/74 (83) 100 10/09/19 23:39 78 19 40 10/09/19 23:00 81 17 101/48 (65) 100 10/09/19 22:00 81 17 124/48 (73) 100 10/09/19 21:48 81 21 40 10/09/19 21:00 82 18 121/56 (77) 98 10/09/19 20:13 83 111/71 10/09/19 20:00 81 10/09/19 20:00 Mechanical Ventilator 10/09/19 20:00 40 10/09/19 20:00 99.3 80 20 111/71 (84) 98 10/09/19 19:52 80 19 40 10/09/19 19:00 81 17 124/64 (84) 100 10/09/19 18:00 80 18 112/61 (78) 100 10/09/19 17:00 81 15 136/102 (113) 100 10/09/19 16:48 79 14 40 10/09/19 16:00 Mechanical Ventilator 10/09/19 16:00 82 15 125/67 (86) 100 10/09/19 16:00 40 10/09/19 16:00 82 I&O Intake and Output 10/09/19 10/10/19 19:00 07:00 Intake Total 955 ml 895 ml Output Total 495 ml 655 ml Balance 460 ml 240 ml Intake Free Water 180 ml 120 ml IV Total 55 ml 55 ml Tube Feeding 720 ml 720 ml Output Urine Total 495 ml 655 ml # Bowel Movements 2 Dressing: other Wound: other Drains: other Cardiovascular: RSR Respiratory: decreased breath sounds Abdomen: soft, non-tender, present bowel sounds Extremities: no cyanosis Laboratory Tests Test 10/10/19 04:00 10/10/19 05:10 Stool Occult Blood Negative (NEGATIVE) White Blood Count 11.3 K/UL (4.8-10.8) H Red Blood Count 3.26 M/UL (4.70-6.10) L Hemoglobin 8.6 G/DL (14.2-18.0) L Hematocrit 26.2 % (42.0-52.0) L Mean Corpuscular Volume 80 FL (80-99) Mean Corpuscular Hemoglobin 26.4 PG (27.0-31.0) L Mean Corpuscular Hemoglobin Concent 32.8 G/DL (32.0-36.0) Red Cell Distribution Width 16.5 % (11.6-14.8) H Platelet Count 389 K/UL (150-450) Mean Platelet Volume 5.3 FL (6.5-10.1) L Neutrophils (%) (Auto) 71.3 % (45.0-75.0) Lymphocytes (%) (Auto) 14.6 % (20.0-45.0) L Monocytes (%) (Auto) 9.1 % (1.0-10.0) Eosinophils (%) (Auto) 4.4 % (0.0-3.0) H Basophils (%) (Auto) 0.7 % (0.0-2.0) Sodium Level 137 MMOL/L (136-145) Potassium Level 4.7 MMOL/L (3.5-5.1) Chloride Level 103 MMOL/L (98-107) Carbon Dioxide Level 27 MMOL/L (21-32) Anion Gap 7 mmol/L (5-15) Blood Urea Nitrogen 23 mg/dL (7-18) H Creatinine 1.0 MG/DL (0.55-1.30) Estimat Glomerular Filtration Rate > 60 mL/min (>60) Glucose Level 103 MG/DL (74-106) Calcium Level 8.9 MG/DL (8.5-10.1) Plan Problems: (1) UTI (urinary tract infection) (2) Acute respiratory failure Assessment & Plan: There is infiltrate suspected in the right perihilar region obscuring the right hilum. There is a hazy opacity that may partially be accounted for by pleural fluid on the right. Reticular densities are present on the left in the perihilar aspect of the lung. Endotracheal tube is in good position just above the anselmo. Heart size is normal. IMPRESSION: Suspected perihilar airspace disease in the right lung suspicious for pneumonia. Reticular nodular infiltrate in the left lung noted also. Right pleural effusion suspected. Endotracheal tube in good position cont vents support Lungs: Similar bilateral interstitial prominence, greater on the right. Stable right perihilar, mid and lower lung opacities. Similar left lung base opacity. Pleural space: Small left pleural effusion is stable. Loculated right pleural effusion is stable. No pneumothorax. Heart: Unremarkable. No cardiomegaly. Mediastinum: Unremarkable. Bones/joints: Unremarkable. Tubes, lines and devices: Endotracheal tube has been pulled back and is 10 cm above the anselmo near the thoracic inlet. IMPRESSION: Endotracheal tube has been pulled back and is 10 cm above the anselmo near the thoracic inlet. Remainder findings are stable. may need thoracentesis soon Moderate size right pleural effusion with right upper and lower lobe atelectasis/consolidation, as well as mild pulmonary edema.. 1. Patchy opacities throughout the right lung left mid and lower lung, similar to slightly increased. Possible small bilateral pleural effusions. 2. Endotracheal tube terminates in the region of the lower thoracic trachea above the anselmo. consider trach (3) Sepsis Assessment & Plan: Pt cachetic and presented on admission with multiple pressure injuries. Partial thickness pressure injury Cleft of L ear(L)1.2cm x (W)0.4cm. Base of wound moist and viable with small amt sanguineous exudate. Partial thickness pressure injury cleft of R ear(L)0.5cm x (W)0.7cm. Base of wound moist and viable Periwound erythematous.Small amt sanguineous exudate noted. Sacral DTPI(L)5cm x (W)10.5cm. Base of injury is purple with maroon borders. Coccygeal bony protrusion with darker skin tone, and small opening noted to R gluteus (L)0.5cm x (W)0.5cm within base of injury. No further skin breakdown periwound. Intact blood blister noted to R 1st metatarsal head(L)1.1cm x (W)2.5cm. DTPI noted to L heel extending into plantar aspect. Base of injury presents as an intact blood filled blister. Periwound is boggy with non-blanching erythema. R heel is boggy but blanchable. wounds unlikely etiology of sepsis respiratory but given current condition high risk for breakdown and worsening will monitor closely discussed with RN and staff great care being provided coded acls intubated in ICU prognosis guarded Tx.Plan: Apply Betadine to clefts of R and L ears. Pad oxygen tubing with gauze and keep oxygen tubing loose. Apply Moisture Barrier Paste to Sacrum. Cover with Optifoam drsg. Change every 3 days and prn. Apply Betadine to L heel. Cover with Optifoam drsg. Change every 3 days and prn. Apply Betadine to R 1st metatarsal head. Cover with Optifoam drsg. Change every 3 days and prn. Apply Cavilon Skin Barrier R heel. Cover with Optifoam drsg. Change every 7 days and prn. Reposition at least every 2hours or as tolerated. Off-load heels with pillow. on air mattress but not very comfortable appearing cont current care / pulm management (4) Severe anemia (5) Nosocomial pneumonia (6) Atrial fibrillation (7) Acute metabolic encephalopathy (8) History of CVA (cerebrovascular accident) (9) Diabetes mellitus (10) Hypothyroidism (11) Alzheimer's dementia (12) PVC (premature ventricular contraction) (13) Hypertension (14) Squamous cell esophageal cancer (15) Feeding by G-tube (16) Dehydration (17) Anemia (18) Severe malnutrition Assessment & Plan: DAILY ESTIMATED NEEDS: Needs based on underweight, suspected wt loss, wounds/ 63kg 25-33 kcals/kg 6593-8808 total kcals 1.25-2 g protein/kg 78-126 g total protein 25-30 mL/kg 1345-0391 total fluid mLs NUTRITION DIAGNOSIS: * Swallowing difficulty R/T dysphagia w/ h/o CVA as evidenced by now s/p recent PEG placement (08/08/19), on GT feeds, held at time, s/p code blue (09/07), orally intubated, now extubated. * Increased kcal/prot intake needs R/T suspected significant wt loss and underweight status, wounds as evidenced by 10lbs/6.7% wt loss in 1 month, 76% IBW w/ BMI of 18.4, admitted w/ DTPI wound @ sacrum, Lt heel, partial thickness pressure injury cleft of R L ear. CURRENT TF:Osmolite 1.2 @ 60ml/hr x 22 hrs ENTERAL NUTRITION RECOMMENDATIONS: Osmolite 1.2 @ 60ml/hr x 22 hrs + Prosource x 1 to provide 1320ml, 1584kcal, 73g +11g prot, 1082ml free water - Add Prosource x 1 to meet protein needs - HOLD 1 hr before and after synthroid meds. add Prosource 1 pack daily to better meet est pro needs - Flush per MD/ HOB over 30 degrees WITH ELEV BG, rec TF change to Glucerna 1.2 w/ a goal of 60ml/hr x22 hrs to provide 1320ml, 1584kcal, 79g prot ADDITIONAL RECOMMENDATIONS: * PER SNF: HT=6'1" WT= 139lbs ("August weight" from SNF) -> calibrated bedscale wt * Monitor K, need for TF change (K 5.9 upon adm, now wnl) * Wound care: add Vit C 500mg QD + Wesley 1pkt BID via PEG * Monitor BGs, need for NISS: h/o DM per MD (checking A1C not suggested given low hgb) (19) Encounter for PEG (percutaneous endoscopic gastrostomy) (20) At high risk for aspiration (21) Pleural effusion (22) Suspected COVID-19 virus infection Jan Mora October 10, 2019 15:10
--- NOTE | 2019-10-10 18:30 | Internal Med Progress Note ---
Subjective Date of Service: October 10, 2019 Physician Name Xander Bah Attending Physician Lamont Hayes MD Current Medications Medications (Trade) Dose Ordered Sig/Kike Route PRN Reason Start Time Stop Time Status Last Admin Dose Admin Amlodipine Besylate (Norvasc) 5 mg BID@0900,2100 NG 09/24/19 21:00 10/22/19 08:59 10/10/19 08:19 Docusate Sodium (Colace) 100 mg TID GT 10/05/19 13:00 11/03/19 08:59 10/10/19 13:49 Heparin Sodium (Porcine) (Heparin 5000 units/ml) 5,000 units EVERY 12 HOURS SUBQ 09/24/19 09:00 10/22/19 08:59 10/10/19 08:20 Lansoprazole (Prevacid) 30 mg DAILY GT 10/04/19 09:00 11/03/19 08:59 10/10/19 08:18 Meropenem 1 gm/ Sodium Chloride 55 ml @ 110 mls/hr Q8HR IVPB 10/07/19 14:00 10/12/19 13:59 10/10/19 13:49 Quetiapine Fumarate (SEROqueL) 25 mg Q8H PRN NG Agitation 09/24/19 02:35 10/30/19 02:34 10/08/19 20:45 Sennosides (Senokot) 8.6 mg DAILY PRN ORAL Constipation 10/06/19 10:15 11/05/19 10:14 10/07/19 21:56 Allergies: Coded Allergies: PENICILLINS (Verified Allergy, Unknown, 10/27/18) tolretas cephalosporins ROS Limited/Unobtainable: Yes Subjective 84 YO M admitted with cough and congestion. Cover for Int Med-Dr Hayes. Reintubated 09/24/19 after cardiopulmonary arrest. ICU Objective Last Vital Signs Date Time Temp Pulse Resp B/P (MAP) Pulse Ox O2 Delivery O2 Flow Rate FiO2 10/10/19 17:00 86 16 120/63 (82) 100 10/10/19 16:00 40 10/10/19 16:00 Mechanical Ventilator 10/10/19 16:00 99.1 Laboratory Tests Test 10/10/19 04:00 10/10/19 05:10 Stool Occult Blood Negative (NEGATIVE) White Blood Count 11.3 K/UL (4.8-10.8) H Red Blood Count 3.26 M/UL (4.70-6.10) L Hemoglobin 8.6 G/DL (14.2-18.0) L Hematocrit 26.2 % (42.0-52.0) L Mean Corpuscular Volume 80 FL (80-99) Mean Corpuscular Hemoglobin 26.4 PG (27.0-31.0) L Mean Corpuscular Hemoglobin Concent 32.8 G/DL (32.0-36.0) Red Cell Distribution Width 16.5 % (11.6-14.8) H Platelet Count 389 K/UL (150-450) Mean Platelet Volume 5.3 FL (6.5-10.1) L Neutrophils (%) (Auto) 71.3 % (45.0-75.0) Lymphocytes (%) (Auto) 14.6 % (20.0-45.0) L Monocytes (%) (Auto) 9.1 % (1.0-10.0) Eosinophils (%) (Auto) 4.4 % (0.0-3.0) H Basophils (%) (Auto) 0.7 % (0.0-2.0) Sodium Level 137 MMOL/L (136-145) Potassium Level 4.7 MMOL/L (3.5-5.1) Chloride Level 103 MMOL/L (98-107) Carbon Dioxide Level 27 MMOL/L (21-32) Anion Gap 7 mmol/L (5-15) Blood Urea Nitrogen 23 mg/dL (7-18) H Creatinine 1.0 MG/DL (0.55-1.30) Estimat Glomerular Filtration Rate > 60 mL/min (>60) Glucose Level 103 MG/DL (74-106) Calcium Level 8.9 MG/DL (8.5-10.1) Intake and Output 10/09/19 10/10/19 19:00 07:00 Intake Total 955 ml 895 ml Output Total 495 ml 655 ml Balance 460 ml 240 ml Intake Free Water 180 ml 120 ml IV Total 55 ml 55 ml Tube Feeding 720 ml 720 ml Output Urine Total 495 ml 655 ml # Bowel Movements 2 Objective PHYSICAL EXAMINATION: GENERAL: The patient is a thin-appearing male, in no apparent distress. HEENT: Eyes, pupils are equal and responsive to light and accommodation. Extraocular movements are intact. NECK: Supple without lymphadenopathy. CHEST: Mech vent; Lungs are clear to auscultation bilaterally with decreased breath sounds on the right. There are no wheezes appreciated. ABDOMEN: Soft, nontender, and nondistended. Positive bowel sounds. No evidence of hepatosplenomegaly. Currently, no rebound or guarding noted. EXTREMITIES: Negative for clubbing, cyanosis, or edema. RECTAL/GENITAL: Not performed. NEUROLOGIC: Cranial nerves II through XII are grossly intact without focal deficits. Assessment/Plan Assessment/Plan ASSESSMENT: This is an 84-year-old male with: 1. 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 Urinary tract infection=jennifer 3. Right pleural effusion. 4. Esophageal mass. 5. Dysphagia. 6. Diabetes. 7. Alzheimer's dementia. 8. Cerebrovascular disease. 9. Hypothyroidism. 10. Seizure disorder. 11. Iron deficiency anemia. 13. Respiratory failure 14. S/P cardiopulmonary arrest 15. Anemia TREATMENT: 1. Right perihilar Pneumonia/pleural effusion. COVID 19 and Influenza negative. A Pulmonary consultation has been obtained with Dr. Vania Hui. S/P right thoracentesis 09/19/19. We will follow recommendation of Pulmonary. ID=Dr Roach ABX= S/P levofloxacin and vanco; Meropenem per ID 2. Urinary tract infection. . A urine culture =jennifer 3. Right pleural effusion. As above, a Pulmonary consultation has been obtained with Dr. Vania Hui. The patient may require thoracentesis during this hospitalization. 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 A Gastroenterology consultation has been obtained with Dr. Darrick Rosario. 5. Dysphagia. The patient is status post PEG placement on 08/08/2019 at [facility] by Dr. Darrick Rosario. 6. Diabetes type 2. A NovoLog sliding scale has been instituted. 7. Alzheimer's dementia. 8. Cerebrovascular disease, status post cerebrovascular accident. 9. Hypothyroidism. Continue levothyroxine as above. 10. Seizure disorder. 11. Iron deficiency anemia. 12. reintubated 09/24/19-see code blue note 13. S/P transfusion 2 units PRBC Xander Bah MD October 10, 2019 18:30
[2019-10-11] VITALS (25 sets, daily range): BP systolic 104–138; BP diastolic 51–81
[2019-10-11] MEDS: Meropenem 1 GM in NS 55 ML IVPB SCH ×3 (05:28→22:53)
[2019-10-11 06:50] LABS: BASOPHILS % (AUTO) 0.7 % (0.0-2.0); EOSINOPHILS % (AUTO) 3.5 % (0.0-3.0); HEMATOCRIT 28.1 % (42.0-52.0); HEMOGLOBIN 9.2 G/DL (14.2-18.0); LYMPHOCYTES % (AUTO) 15.3 % (20.0-45.0); MEAN CORPUSCULAR VOLUME 80 FL (80-99); MONOCYTES % (AUTO) 9.7 % (1.0-10.0); NEUTROPHILS % (AUTO) 70.8 % (45.0-75.0); PLATELET COUNT 413 K/UL (150-450); RED BLOOD COUNT 3.49 M/UL (4.70-6.10); RED CELL DISTRIBUTION WIDTH 16.6 % (11.6-14.8); WHITE BLOOD COUNT 11.9 K/UL (4.8-10.8)
[2019-10-11 07:32] LABS: ANION GAP 9 mmol/L (5-15); BLOOD UREA NITROGEN 28 mg/dL (7-18); CALCIUM 8.9 MG/DL (8.5-10.1); CARBON DIOXIDE 26 MMOL/L (21-32); CHLORIDE 101 MMOL/L (98-107); SODIUM 136 MMOL/L (136-145)
[2019-10-11] MEDS: Docusate 100mg/10ml Liq GT SCH ×3 (09:21→17:09)
[2019-10-11] MEDS: Heparin 5000 units/ml inj SUBQ SCH ×2 (09:22→21:25)
--- NOTE | 2019-10-11 10:00 | Nephrology Progress Note ---
Assessment/Plan Problem List: (1) RAMAN (acute kidney injury) Assessment: Serum creatinine normalized with hydration (2) Dehydration (3) Suspected COVID-19 virus infection (4) Anemia (5) Sepsis (6) Diabetes mellitus (7) Hypothyroidism Assessment - Acute renal failure - Severe anemia - Sepsis, pneumonia, acute respiratory failure, suspected: Viewed 19 virus infection - Diabetes mellitus - Hypothyroidism - Feeding by G-tube - Squamous cell esophageal cancer - History of CVA (cerebrovascular accident) Plan October 5: Dose unchanged from renal standpoint to view Remains intubated October 4: Stable from renal standpoint of view Hemoglobin higher today October 3 Discussed with RN Remains intubated on ventilator Hemoglobin is drifting down Will reorder iron panel Remains stable from renal standpoint of view Remains full code October 2: Discussed with RN. Patient remains intubated. Family declined comfort care. Weaning trial is being attempted Main stable from renal standpoint of view We will order labs for tomorrow. Previously Patient was coded early September 23 morning and back in ICU intubated Serum creatinine miguel to 1.5, now back to normal Stable from renal standpoint of view at this point He is status remains full code Tested negative for COVID-19 Previously: Pneumonia SARS-CoV neg x2 MRSA screen pos sp cx: PSA and proteus Changes Seroquel to "as needed" due to bradycardia Discontinue IV fluid Monitor renal parameters, serum creatinine Adjust electrolytes with supplements Increase Synthroid dose Avoid nephrotoxic's as possible Ventilator management Urine studies Per orders Subjective ROS Limited/Unobtainable: Yes Objective Objective Last 24 Hour Vital Signs Date Time Temp Pulse Resp B/P (MAP) Pulse Ox O2 Delivery O2 Flow Rate FiO2 10/11/19 09:21 90 137/79 10/11/19 08:00 40 10/11/19 08:00 98.8 90 20 138/76 (96) 95 10/11/19 07:34 98.8 20 132/81 (98) 99 10/11/19 07:19 90 17 40 10/11/19 07:00 98.8 92 20 132/81 (98) 99 10/11/19 06:30 88 19 10/11/19 06:00 88 19 135/79 (97) 10/11/19 05:00 86 16 125/71 (89) 98 10/11/19 04:30 89 20 40 5/5/20 04:00 40 10/11/19 04:00 Mechanical Ventilator 10/11/19 04:00 88 10/11/19 04:00 98.5 91 24 133/63 (86) 98 10/11/19 03:43 83 22 40 10/11/19 03:06 82 15 40 10/11/19 03:00 84 18 129/52 (77) 93 10/11/19 02:00 82 18 134/56 (82) 100 10/11/19 01:05 83 22 40 10/11/19 01:00 84 20 134/60 (84) 100 10/11/19 00:00 98.8 83 22 135/61 (85) 98 10/11/19 00:00 Mechanical Ventilator 10/11/19 00:00 82 10/11/19 00:00 40 10/10/19 23:00 82 18 131/65 (87) 100 10/10/19 23:00 82 18 131/65 (87) 100 10/10/19 22:45 79 19 40 10/10/19 22:00 79 17 127/64 (85) 98 10/10/19 22:00 79 17 127/64 (85) 98 10/10/19 21:06 80 22 40 10/10/19 21:00 81 19 126/57 (80) 99 10/10/19 20:46 82 130/62 10/10/19 20:00 84 10/10/19 20:00 98.5 83 20 130/62 (84) 100 10/10/19 20:00 Mechanical Ventilator 10/10/19 20:00 40 10/10/19 19:10 83 20 40 10/10/19 19:00 87 18 133/65 (87) 100 10/10/19 18:00 88 21 148/69 (95) 98 10/10/19 17:00 86 16 120/63 (82) 100 10/10/19 16:00 40 10/10/19 16:00 Mechanical Ventilator 10/10/19 16:00 99.1 83 16 113/50 (71) 92 10/10/19 15:23 84 10/10/19 15:14 88 21 40 10/10/19 15:00 85 20 112/51 (71) 91 10/10/19 14:00 83 17 126/62 (83) 100 10/10/19 13:00 88 30 130/76 (94) 97 10/10/19 12:00 40 10/10/19 12:00 98.8 84 18 131/57 (81) 97 10/10/19 12:00 Mechanical Ventilator 10/10/19 11:33 83 10/10/19 11:00 87 19 113/62 (79) 100 10/10/19 10:32 86 19 40 10/10/19 10:00 83 17 110/55 (73) 100 Intake and Output 10/10/19 10/11/19 19:00 07:00 Intake Total 975 ml 935 ml Output Total 665 ml 610 ml Balance 310 ml 325 ml Intake Free Water 200 ml 160 ml IV Total 55 ml 55 ml Tube Feeding 720 ml 720 ml Output Urine Total 665 ml 610 ml # Bowel Movements 1 3 Laboratory Tests 10/11/19 05:25: White Blood Count 11.9H, Red Blood Count 3.49L, Hemoglobin 9.2L, Hematocrit 28.1L, Mean Corpuscular Volume 80, Mean Corpuscular Hemoglobin 26.3L, Mean Corpuscular Hemoglobin Concent 32.7, Red Cell Distribution Width 16.6H, Platelet Count 413, Mean Platelet Volume 5.3L, Neutrophils (%) (Auto) 70.8, Lymphocytes (%) (Auto) 15.3L, Monocytes (%) (Auto) 9.7, Eosinophils (%) (Auto) 3.5H, Basophils (%) (Auto) 0.7, Sodium Level 136, Potassium Level 5.0, Chloride Level 101, Carbon Dioxide Level 26, Anion Gap 9, Blood Urea Nitrogen 28H, Creatinine 1.0, Estimat Glomerular Filtration Rate > 60, Glucose Level 144H, Calcium Level 8.9 Height (Feet): 5 Height (Inches): 11.00 Weight (Pounds): 144 General Appearance: no apparent distress EENT: other - Intubated on ventilator Cardiovascular: tachycardia Respiratory/Chest: decreased breath sounds Abdomen: soft Objective no change Clovis Benites MD October 11, 2019 10:00
--- NOTE | 2019-10-11 10:20 | Pulmonolgy Critical Care Note ---
Critical Care - Asmt/Plan Problems: (1) Acute respiratory failure (2) Pleural effusion Assessment & Plan: s/p thoracentesis times 2, increasing again (3) Nosocomial pneumonia (4) Sepsis (5) Squamous cell esophageal cancer (6) Diabetes mellitus (7) Severe malnutrition (8) Alzheimer's dementia (9) History of CVA (cerebrovascular accident) (10) Feeding by G-tube Respiratory: monitor respiratory rate, adjust FIO2, CXR Cardiac: continue to monitor HR/BP Renal: F/U I&O, check electrolytes Infectious Disease: check cultures, other - on Meropenem Gastrointestinal: continue feedings/current rate Endocrine: monitor blood sugar Hematologic: monitor H/H, transfuse if hgb<8.5 Affect: PRN ativan Disposition: keep in ICU Time Spent (Minutes): 40 Notes Reviewed: cardiology teacher, renal, ID, GI Discussed with: nurses, consultants, returned case inspectoraudio visual manager - Objective Last 24 Hour Vital Signs Date Time Temp Pulse Resp B/P (MAP) Pulse Ox O2 Delivery O2 Flow Rate FiO2 10/11/19 09:21 90 137/79 10/11/19 08:00 40 10/11/19 08:00 98.8 90 20 138/76 (96) 95 10/11/19 07:34 98.8 20 132/81 (98) 99 10/11/19 07:19 90 17 40 10/11/19 07:00 98.8 92 20 132/81 (98) 99 10/11/19 06:30 88 19 10/11/19 06:00 88 19 135/79 (97) 10/11/19 05:00 86 16 125/71 (89) 98 10/11/19 04:30 89 20 40 10/11/19 04:00 40 10/11/19 04:00 Mechanical Ventilator 10/11/19 04:00 88 10/11/19 04:00 98.5 91 24 133/63 (86) 98 10/11/19 03:43 83 22 40 10/11/19 03:06 82 15 40 10/11/19 03:00 84 18 129/52 (77) 93 10/11/19 02:00 82 18 134/56 (82) 100 10/11/19 01:05 83 22 40 10/11/19 01:00 84 20 134/60 (84) 100 10/11/19 00:00 98.8 83 22 135/61 (85) 98 10/11/19 00:00 Mechanical Ventilator 10/11/19 00:00 82 10/11/19 00:00 40 10/10/19 23:00 82 18 131/65 (87) 100 10/10/19 23:00 82 18 131/65 (87) 100 10/10/19 22:45 79 19 40 10/10/19 22:00 79 17 127/64 (85) 98 10/10/19 22:00 79 17 127/64 (85) 98 10/10/19 21:06 80 22 40 10/10/19 21:00 81 19 126/57 (80) 99 10/10/19 20:46 82 130/62 10/10/19 20:00 84 10/10/19 20:00 98.5 83 20 130/62 (84) 100 10/10/19 20:00 Mechanical Ventilator 10/10/19 20:00 40 10/10/19 19:10 83 20 40 10/10/19 19:00 87 18 133/65 (87) 100 10/10/19 18:00 88 21 148/69 (95) 98 10/10/19 17:00 86 16 120/63 (82) 100 10/10/19 16:00 40 10/10/19 16:00 Mechanical Ventilator 10/10/19 16:00 99.1 83 16 113/50 (71) 92 10/10/19 15:23 84 10/10/19 15:14 88 21 40 10/10/19 15:00 85 20 112/51 (71) 91 10/10/19 14:00 83 17 126/62 (83) 100 10/10/19 13:00 88 30 130/76 (94) 97 10/10/19 12:00 40 10/10/19 12:00 98.8 84 18 131/57 (81) 97 10/10/19 12:00 Mechanical Ventilator 10/10/19 11:33 83 10/10/19 11:00 87 19 113/62 (79) 100 10/10/19 10:32 86 19 40 Status: obtunded Condition: critical HEENT: atraumatic, normocephalic Lungs: rales, rhonchi Heart: HR/BP stable Abdomen: soft Extremities: no C/C/E Critical Care - Subjective ROS Limited/Unobtainable: Yes Interval Events: looks comfortable FI02: 40 Vent Support Breath Rate: 12 Vent Support Mode: AC Vent Tidal Volume: 550 Sputum Amount: Small PEEP: 5.0 PIP: 33 Tube Feeding Amount: 60 I&O: Intake and Output 10/10/19 10/11/19 19:00 07:00 Intake Total 975 ml 935 ml Output Total 665 ml 610 ml Balance 310 ml 325 ml Intake Free Water 200 ml 160 ml IV Total 55 ml 55 ml Tube Feeding 720 ml 720 ml Output Urine Total 665 ml 610 ml # Bowel Movements 1 3 CXR: bilateral effusion ET-Tube: 7.5 ET Position: 26 Labs: Laboratory Tests Test 10/11/19 05:25 White Blood Count 11.9 K/UL (4.8-10.8) H Red Blood Count 3.49 M/UL (4.70-6.10) L Hemoglobin 9.2 G/DL (14.2-18.0) L Hematocrit 28.1 % (42.0-52.0) L Mean Corpuscular Volume 80 FL (80-99) Mean Corpuscular Hemoglobin 26.3 PG (27.0-31.0) L Mean Corpuscular Hemoglobin Concent 32.7 G/DL (32.0-36.0) Red Cell Distribution Width 16.6 % (11.6-14.8) H Platelet Count 413 K/UL (150-450) Mean Platelet Volume 5.3 FL (6.5-10.1) L Neutrophils (%) (Auto) 70.8 % (45.0-75.0) Lymphocytes (%) (Auto) 15.3 % (20.0-45.0) L Monocytes (%) (Auto) 9.7 % (1.0-10.0) Eosinophils (%) (Auto) 3.5 % (0.0-3.0) H Basophils (%) (Auto) 0.7 % (0.0-2.0) Sodium Level 136 MMOL/L (136-145) Potassium Level 5.0 MMOL/L (3.5-5.1) Chloride Level 101 MMOL/L (98-107) Carbon Dioxide Level 26 MMOL/L (21-32) Anion Gap 9 mmol/L (5-15) Blood Urea Nitrogen 28 mg/dL (7-18) H Creatinine 1.0 MG/DL (0.55-1.30) Estimat Glomerular Filtration Rate > 60 mL/min (>60) Glucose Level 144 MG/DL (74-106) H Calcium Level 8.9 MG/DL (8.5-10.1) Vania Hui MD October 11, 2019 10:20
--- NOTE | 2019-10-11 11:17 | General Progress Note ---
Assessment/Plan Status: unchanged Assessment/Plan: 1. Esophageal cancer. 2. Dysphagia. 3. Diabetes type 2. 4. Dementia. 5. CVA. 6. Hypothyroidism. 7. Seizure disorder. 8. Iron deficiency anemia. 9. Respiratory failure. 10. Dysphagia with G-tube stable H&H GT has been changed and working well GT flushes dietitian in put appreciated>>> TF Javity subhash abx per id pulm care bowel regimen recent labs and notes reviewed D/W the nurse will fu Subjective ROS Limited/Unobtainable: No Allergies: Coded Allergies: PENICILLINS (Verified Allergy, Unknown, 10/27/18) tolretas cephalosporins Objective Last 24 Hour Vital Signs Date Time Temp Pulse Resp B/P (MAP) Pulse Ox O2 Delivery O2 Flow Rate FiO2 10/11/19 11:06 89 20 40 10/11/19 09:21 90 137/79 10/11/19 09:15 88 19 40 10/11/19 08:00 Mechanical Ventilator 10/11/19 08:00 40 10/11/19 08:00 98.8 90 20 138/76 (96) 95 10/11/19 07:34 98.8 20 132/81 (98) 99 10/11/19 07:19 90 17 40 10/11/19 07:00 98.8 92 20 132/81 (98) 99 10/11/19 06:30 88 19 10/11/19 06:00 88 19 135/79 (97) 10/11/19 05:00 86 16 125/71 (89) 98 10/11/19 04:30 89 20 40 10/11/19 04:00 40 10/11/19 04:00 Mechanical Ventilator 10/11/19 04:00 88 10/11/19 04:00 98.5 91 24 133/63 (86) 98 10/11/19 03:43 83 22 40 10/11/19 03:06 82 15 40 10/11/19 03:00 84 18 129/52 (77) 93 10/11/19 02:00 82 18 134/56 (82) 100 10/11/19 01:05 83 22 40 10/11/19 01:00 84 20 134/60 (84) 100 10/11/19 00:00 98.8 83 22 135/61 (85) 98 10/11/19 00:00 Mechanical Ventilator 10/11/19 00:00 82 10/11/19 00:00 40 10/10/19 23:00 82 18 131/65 (87) 100 10/10/19 23:00 82 18 131/65 (87) 100 10/10/19 22:45 79 19 40 10/10/19 22:00 79 17 127/64 (85) 98 10/10/19 22:00 79 17 127/64 (85) 98 10/10/19 21:06 80 22 40 10/10/19 21:00 81 19 126/57 (80) 99 10/10/19 20:46 82 130/62 10/10/19 20:00 84 10/10/19 20:00 98.5 83 20 130/62 (84) 100 10/10/19 20:00 Mechanical Ventilator 10/10/19 20:00 40 10/10/19 19:10 83 20 40 10/10/19 19:00 87 18 133/65 (87) 100 10/10/19 18:00 88 21 148/69 (95) 98 10/10/19 17:00 86 16 120/63 (82) 100 10/10/19 16:00 40 10/10/19 16:00 Mechanical Ventilator 10/10/19 16:00 99.1 83 16 113/50 (71) 92 10/10/19 15:23 84 10/10/19 15:14 88 21 40 10/10/19 15:00 85 20 112/51 (71) 91 10/10/19 14:00 83 17 126/62 (83) 100 10/10/19 13:00 88 30 130/76 (94) 97 10/10/19 12:00 40 10/10/19 12:00 98.8 84 18 131/57 (81) 97 10/10/19 12:00 Mechanical Ventilator 10/10/19 11:33 83 Intake and Output 10/10/19 10/11/19 19:00 07:00 Intake Total 975 ml 935 ml Output Total 665 ml 610 ml Balance 310 ml 325 ml Intake Free Water 200 ml 160 ml IV Total 55 ml 55 ml Tube Feeding 720 ml 720 ml Output Urine Total 665 ml 610 ml # Bowel Movements 1 3 Laboratory Tests 10/11/19 05:25: White Blood Count 11.9H, Red Blood Count 3.49L, Hemoglobin 9.2L, Hematocrit 28.1L, Mean Corpuscular Volume 80, Mean Corpuscular Hemoglobin 26.3L, Mean Corpuscular Hemoglobin Concent 32.7, Red Cell Distribution Width 16.6H, Platelet Count 413, Mean Platelet Volume 5.3L, Neutrophils (%) (Auto) 70.8, Lymphocytes (%) (Auto) 15.3L, Monocytes (%) (Auto) 9.7, Eosinophils (%) (Auto) 3.5H, Basophils (%) (Auto) 0.7, Sodium Level 136, Potassium Level 5.0, Chloride Level 101, Carbon Dioxide Level 26, Anion Gap 9, Blood Urea Nitrogen 28H, Creatinine 1.0, Estimat Glomerular Filtration Rate > 60, Glucose Level 144H, Calcium Level 8.9 Height (Feet): 5 Height (Inches): 11.00 Weight (Pounds): 144 General Appearance: no apparent distress EENT: normal ENT inspection Neck: supple Cardiovascular: normal rate Respiratory/Chest: decreased breath sounds Abdomen: normal bowel sounds, non tender, soft Extremities: non-tender Darrick Rosario MD October 11, 2019 11:17
--- NOTE | 2019-10-11 13:53 | Infectious Diseases Prog Note ---
Assessment/Plan Assessment/Plan 09/23 SP asystole cardiac arrest VDRF 09/23 Fever; SP Mild leukocytosis, improving Probable UTI -10/01 Bcx Neg u/a wbc tnct; ucx 30-40k C.albicans PNA VDRF, sp intubation 09/08, sp extubation 09/18, re-intubated 09/23 SARS-CoV neg x3 (09/06, 09/08, 09/30) MRSA screen pos 10/09 CXR: Markedly increased and now large right pleural effusion, over 4 days. There is probably some atelectasis on the right as well in addition to the passive atelectasis from pleural fluid. Improved aeration of the left lung 10/05 CXR: Focal patchy infiltrate in the left suprahilar region, not evident previously. Slightly increased small right pleural effusion. Obscured left hemidiaphragm, likely retrocardiac consolidation and/or left pleural fluid , unchanged Stable cardiomegaly 10/02 CXR: Increasing pleural fluid and possibly parenchymal consolidation at the right lung base. Unchanged left basilar pleural and parenchymal disease. sp cx PSA (hensley S), P. stuarti (R. cefepime, ancef, levaquin; S zosyn, ertapenem) 09/30 CXR: Patchy opacities throughout the right lung left mid and lower lung, similar to slightly increased. Possible small bilateral pleural effusions. 09/29 CXR: Increasing right mid and lower lung opacity, may indicate increasing pleural fluid, increasing infiltrate, or both. 09/28 CXR: Developing hazy right basilar opacity. This could represent reaching layering pleural fluid. This could also represent reexpansion pulmonary edema given recent high-volume thoracentesis, or could represent developing ammonia or pulmonary edema. Hazy left basilar opacity, unchanged, may reflect parenchymal infiltrate versus pleural fluid versus both 09/25 CXR: Large right pleural effusion is again demonstrated. Small left pleural effusion is again demonstrated. Left lung is otherwise clear. sp cx PsA (R zozyn, S levo, gentamycin) 09/24 CXR: Moderate size right pleural effusion with right upper and lower lobe atelectasis/consolidation, as well as mild pulmonary edema.. 09/17 CXR: Similar bilateral interstitial prominence, greater on the right.Stable right perihilar, mid and lower lung opacities. Similar left lung base opacity. Small left pleural effusion is stable. Loculated right pleural effusion is stable. No pneumothorax. CXR: Right pleural effusion, also demonstrated on prior 08/09/2019 exam, slightly increased. Hazy right lung parenchymal opacity probably represents a superimposed pleural fluid but infiltrate also possible. 09/06 sp cx: PSA (hensley S) and proteus (hensley S) R pleural effusion, exudative -09/18 SP thorancetesis; removal of 2050 mL fluid; Fluid prot 5 (serum prot 7.2 ); cx Neg QTc 419 RAMAN, improving DM HTN CVA Dementia Nonverbal G tube Plan: Continue Meropenem #/10/06 SP Levaquin #7 10/05 SP IV Vancomycin #6 09/19 SPcefepime # 09/09 SP vanc #4 ( Cr increased) ICU care monitor temp and CBC COVID neg x3 DW RN Thank you for this consult. [facility] will continue to follow the patient with you. Subjective Allergies: Coded Allergies: PENICILLINS (Verified Allergy, Unknown, 10/27/18) tolretas cephalosporins Subjective afebrile Fio2 40% mild leukocytosis improving Objective Vital Signs Last 24 Hour Vital Signs Date Time Temp Pulse Resp B/P (MAP) Pulse Ox O2 Delivery O2 Flow Rate FiO2 10/11/19 13:02 84 19 134/73 (93) 100 10/11/19 12:00 98.0 86 20 124/69 (87) 98 10/11/19 12:00 Mechanical Ventilator 10/11/19 12:00 89 10/11/19 12:00 40 10/11/19 11:06 89 20 40 10/11/19 10:00 98.2 88 20 122/80 (94) 97 10/11/19 09:21 90 137/79 10/11/19 09:15 88 19 40 10/11/19 09:00 98.2 89 19 137/79 (98) 95 10/11/19 08:00 90 10/11/19 08:00 Mechanical Ventilator 10/11/19 08:00 40 10/11/19 08:00 98.8 90 20 138/76 (96) 95 10/11/19 07:34 98.8 20 132/81 (98) 99 10/11/19 07:19 90 17 40 10/11/19 07:00 98.8 92 20 132/81 (98) 99 10/11/19 06:30 88 19 10/11/19 06:00 88 19 135/79 (97) 10/11/19 05:00 86 16 125/71 (89) 98 10/11/19 04:30 89 20 40 10/11/19 04:00 40 10/11/19 04:00 Mechanical Ventilator 10/11/19 04:00 88 10/11/19 04:00 98.5 91 24 133/63 (86) 98 10/11/19 03:43 83 22 40 10/11/19 03:06 82 15 40 10/11/19 03:00 84 18 129/52 (77) 93 10/11/19 02:00 82 18 134/56 (82) 100 10/11/19 01:05 83 22 40 10/11/19 01:00 84 20 134/60 (84) 100 10/11/19 00:00 98.8 83 22 135/61 (85) 98 10/11/19 00:00 Mechanical Ventilator 10/11/19 00:00 82 10/11/19 00:00 40 10/10/19 23:00 82 18 131/65 (87) 100 10/10/19 23:00 82 18 131/65 (87) 100 10/10/19 22:45 79 19 40 10/10/19 22:00 79 17 127/64 (85) 98 10/10/19 22:00 79 17 127/64 (85) 98 10/10/19 21:06 80 22 40 10/10/19 21:00 81 19 126/57 (80) 99 10/10/19 20:46 82 130/62 10/10/19 20:00 84 10/10/19 20:00 98.5 83 20 130/62 (84) 100 10/10/19 20:00 Mechanical Ventilator 10/10/19 20:00 40 10/10/19 19:10 83 20 40 10/10/19 19:00 87 18 133/65 (87) 100 10/10/19 18:00 88 21 148/69 (95) 98 10/10/19 17:00 86 16 120/63 (82) 100 10/10/19 16:00 40 10/10/19 16:00 Mechanical Ventilator 10/10/19 16:00 99.1 83 16 113/50 (71) 92 10/10/19 15:23 84 10/10/19 15:14 88 21 40 10/10/19 15:00 85 20 112/51 (71) 91 10/10/19 14:00 83 17 126/62 (83) 100 Height (Feet): 5 Height (Inches): 11.00 Weight (Pounds): 144 Objective Gen: NAD. well nourished HEENT: ETT. oral secretions Resp: coarse. equal chest rise. regular rate and rhythm. Abd: Soft. no TTP. nondistended. G tube site c/d/i. Neuro: opens eyes to voice and follows simple commands Laboratory Tests Test 10/11/19 05:25 White Blood Count 11.9 K/UL (4.8-10.8) H Red Blood Count 3.49 M/UL (4.70-6.10) L Hemoglobin 9.2 G/DL (14.2-18.0) L Hematocrit 28.1 % (42.0-52.0) L Mean Corpuscular Volume 80 FL (80-99) Mean Corpuscular Hemoglobin 26.3 PG (27.0-31.0) L Mean Corpuscular Hemoglobin Concent 32.7 G/DL (32.0-36.0) Red Cell Distribution Width 16.6 % (11.6-14.8) H Platelet Count 413 K/UL (150-450) Mean Platelet Volume 5.3 FL (6.5-10.1) L Neutrophils (%) (Auto) 70.8 % (45.0-75.0) Lymphocytes (%) (Auto) 15.3 % (20.0-45.0) L Monocytes (%) (Auto) 9.7 % (1.0-10.0) Eosinophils (%) (Auto) 3.5 % (0.0-3.0) H Basophils (%) (Auto) 0.7 % (0.0-2.0) Sodium Level 136 MMOL/L (136-145) Potassium Level 5.0 MMOL/L (3.5-5.1) Chloride Level 101 MMOL/L (98-107) Carbon Dioxide Level 26 MMOL/L (21-32) Anion Gap 9 mmol/L (5-15) Blood Urea Nitrogen 28 mg/dL (7-18) H Creatinine 1.0 MG/DL (0.55-1.30) Estimat Glomerular Filtration Rate > 60 mL/min (>60) Glucose Level 144 MG/DL (74-106) H Calcium Level 8.9 MG/DL (8.5-10.1) Current Medications Medications (Trade) Dose Ordered Sig/Kike Route PRN Reason Start Time Stop Time Status Last Admin Dose Admin Amlodipine Besylate (Norvasc) 5 mg BID@0900,2100 NG 09/24/19 21:00 10/22/19 08:59 10/11/19 09:21 Docusate Sodium (Colace) 100 mg TID GT 10/05/19 13:00 11/03/19 08:59 10/11/19 13:09 Heparin Sodium (Porcine) (Heparin 5000 units/ml) 5,000 units EVERY 12 HOURS SUBQ 09/24/19 09:00 10/22/19 08:59 10/11/19 09:22 Lansoprazole (Prevacid) 30 mg DAILY GT 10/04/19 09:00 11/03/19 08:59 10/11/19 09:21 Meropenem 1 gm/ Sodium Chloride 55 ml @ 110 mls/hr Q8HR IVPB 10/07/19 14:00 10/13/19 23:59 10/11/19 13:09 Quetiapine Fumarate (SEROqueL) 25 mg Q8H PRN NG Agitation 09/24/19 02:35 10/30/19 02:34 10/08/19 20:45 Sennosides (Senokot) 8.6 mg DAILY PRN ORAL Constipation 10/06/19 10:15 11/05/19 10:14 10/07/19 21:56 Danielle Roach M.D. October 11, 2019 13:53
--- NOTE | 2019-10-11 16:32 | Surgery Progress Note ---
Surgery Progress Note Subjective Additional Comments no acute events labs noted ill appearing on support Objective Last 24 Hour Vital Signs Date Time Temp Pulse Resp B/P (MAP) Pulse Ox O2 Delivery O2 Flow Rate FiO2 10/11/19 16:00 98.5 19 127/63 (84) 100 10/11/19 16:00 40 10/11/19 15:00 20 122/68 (86) 100 10/11/19 14:03 85 18 112/65 (81) 100 10/11/19 13:02 84 19 134/73 (93) 100 10/11/19 12:00 98.0 86 20 124/69 (87) 98 10/11/19 12:00 Mechanical Ventilator 10/11/19 12:00 89 10/11/19 12:00 40 10/11/19 11:06 89 20 40 10/11/19 10:00 98.2 88 20 122/80 (94) 97 10/11/19 09:21 90 137/79 10/11/19 09:15 88 19 40 10/11/19 09:00 98.2 89 19 137/79 (98) 95 10/11/19 08:00 90 10/11/19 08:00 Mechanical Ventilator 10/11/19 08:00 40 10/11/19 08:00 98.8 90 20 138/76 (96) 95 10/11/19 07:34 98.8 20 132/81 (98) 99 10/11/19 07:19 90 17 40 10/11/19 07:00 98.8 92 20 132/81 (98) 99 10/11/19 06:30 88 19 10/11/19 06:00 88 19 135/79 (97) 10/11/19 05:00 86 16 125/71 (89) 98 10/11/19 04:30 89 20 40 10/11/19 04:00 40 10/11/19 04:00 Mechanical Ventilator 10/11/19 04:00 88 10/11/19 04:00 98.5 91 24 133/63 (86) 98 10/11/19 03:43 83 22 40 10/11/19 03:06 82 15 40 10/11/19 03:00 84 18 129/52 (77) 93 10/11/19 02:00 82 18 134/56 (82) 100 10/11/19 01:05 83 22 40 10/11/19 01:00 84 20 134/60 (84) 100 10/11/19 00:00 98.8 83 22 135/61 (85) 98 10/11/19 00:00 Mechanical Ventilator 10/11/19 00:00 82 10/11/19 00:00 40 10/10/19 23:00 82 18 131/65 (87) 100 10/10/19 23:00 82 18 131/65 (87) 100 10/10/19 22:45 79 19 40 10/10/19 22:00 79 17 127/64 (85) 98 10/10/19 22:00 79 17 127/64 (85) 98 10/10/19 21:06 80 22 40 10/10/19 21:00 81 19 126/57 (80) 99 10/10/19 20:46 82 130/62 10/10/19 20:00 84 10/10/19 20:00 98.5 83 20 130/62 (84) 100 10/10/19 20:00 Mechanical Ventilator 10/10/19 20:00 40 10/10/19 19:10 83 20 40 10/10/19 19:00 87 18 133/65 (87) 100 10/10/19 18:00 88 21 148/69 (95) 98 10/10/19 17:00 86 16 120/63 (82) 100 I&O Intake and Output 10/10/19 10/11/19 19:00 07:00 Intake Total 975 ml 935 ml Output Total 665 ml 610 ml Balance 310 ml 325 ml Intake Free Water 200 ml 160 ml IV Total 55 ml 55 ml Tube Feeding 720 ml 720 ml Output Urine Total 665 ml 610 ml # Bowel Movements 1 3 Dressing: other Wound: other Drains: other Cardiovascular: RSR Respiratory: decreased breath sounds Abdomen: soft, non-tender, present bowel sounds Extremities: no cyanosis Laboratory Tests Test 10/11/19 05:25 White Blood Count 11.9 K/UL (4.8-10.8) H Red Blood Count 3.49 M/UL (4.70-6.10) L Hemoglobin 9.2 G/DL (14.2-18.0) L Hematocrit 28.1 % (42.0-52.0) L Mean Corpuscular Volume 80 FL (80-99) Mean Corpuscular Hemoglobin 26.3 PG (27.0-31.0) L Mean Corpuscular Hemoglobin Concent 32.7 G/DL (32.0-36.0) Red Cell Distribution Width 16.6 % (11.6-14.8) H Platelet Count 413 K/UL (150-450) Mean Platelet Volume 5.3 FL (6.5-10.1) L Neutrophils (%) (Auto) 70.8 % (45.0-75.0) Lymphocytes (%) (Auto) 15.3 % (20.0-45.0) L Monocytes (%) (Auto) 9.7 % (1.0-10.0) Eosinophils (%) (Auto) 3.5 % (0.0-3.0) H Basophils (%) (Auto) 0.7 % (0.0-2.0) Sodium Level 136 MMOL/L (136-145) Potassium Level 5.0 MMOL/L (3.5-5.1) Chloride Level 101 MMOL/L (98-107) Carbon Dioxide Level 26 MMOL/L (21-32) Anion Gap 9 mmol/L (5-15) Blood Urea Nitrogen 28 mg/dL (7-18) H Creatinine 1.0 MG/DL (0.55-1.30) Estimat Glomerular Filtration Rate > 60 mL/min (>60) Glucose Level 144 MG/DL (74-106) H Calcium Level 8.9 MG/DL (8.5-10.1) Plan Problems: (1) UTI (urinary tract infection) (2) Acute respiratory failure Assessment & Plan: There is infiltrate suspected in the right perihilar region obscuring the right hilum. There is a hazy opacity that may partially be accounted for by pleural fluid on the right. Reticular densities are present on the left in the perihilar aspect of the lung. Endotracheal tube is in good position just above the anselmo. Heart size is normal. IMPRESSION: Suspected perihilar airspace disease in the right lung suspicious for pneumonia. Reticular nodular infiltrate in the left lung noted also. Right pleural effusion suspected. Endotracheal tube in good position cont vents support Lungs: Similar bilateral interstitial prominence, greater on the right. Stable right perihilar, mid and lower lung opacities. Similar left lung base opacity. Pleural space: Small left pleural effusion is stable. Loculated right pleural effusion is stable. No pneumothorax. Heart: Unremarkable. No cardiomegaly. Mediastinum: Unremarkable. Bones/joints: Unremarkable. Tubes, lines and devices: Endotracheal tube has been pulled back and is 10 cm above the anselmo near the thoracic inlet. IMPRESSION: Endotracheal tube has been pulled back and is 10 cm above the anselmo near the thoracic inlet. Remainder findings are stable. may need thoracentesis soon Moderate size right pleural effusion with right upper and lower lobe atelectasis/consolidation, as well as mild pulmonary edema.. 1. Patchy opacities throughout the right lung left mid and lower lung, similar to slightly increased. Possible small bilateral pleural effusions. 2. Endotracheal tube terminates in the region of the lower thoracic trachea above the anselmo. consider trach (3) Sepsis Assessment & Plan: Pt cachetic and presented on admission with multiple pressure injuries. Partial thickness pressure injury Cleft of L ear(L)1.2cm x (W)0.4cm. Base of wound moist and viable with small amt sanguineous exudate. Partial thickness pressure injury cleft of R ear(L)0.5cm x (W)0.7cm. Base of wound moist and viable Periwound erythematous.Small amt sanguineous exudate noted. Sacral DTPI(L)5cm x (W)10.5cm. Base of injury is purple with maroon borders. Coccygeal bony protrusion with darker skin tone, and small opening noted to R gluteus (L)0.5cm x (W)0.5cm within base of injury. No further skin breakdown periwound. Intact blood blister noted to R 1st metatarsal head(L)1.1cm x (W)2.5cm. DTPI noted to L heel extending into plantar aspect. Base of injury presents as an intact blood filled blister. Periwound is boggy with non-blanching erythema. R heel is boggy but blanchable. wounds unlikely etiology of sepsis respiratory but given current condition high risk for breakdown and worsening will monitor closely discussed with RN and staff great care being provided coded acls intubated in ICU prognosis guarded Tx.Plan: Apply Betadine to clefts of R and L ears. Pad oxygen tubing with gauze and keep oxygen tubing loose. Apply Moisture Barrier Paste to Sacrum. Cover with Optifoam drsg. Change every 3 days and prn. Apply Betadine to L heel. Cover with Optifoam drsg. Change every 3 days and prn. Apply Betadine to R 1st metatarsal head. Cover with Optifoam drsg. Change every 3 days and prn. Apply Cavilon Skin Barrier R heel. Cover with Optifoam drsg. Change every 7 days and prn. Reposition at least every 2hours or as tolerated. Off-load heels with pillow. on air mattress but not very comfortable appearing cont current care / pulm management (4) Severe anemia (5) Nosocomial pneumonia (6) Atrial fibrillation (7) Acute metabolic encephalopathy (8) History of CVA (cerebrovascular accident) (9) Diabetes mellitus (10) Hypothyroidism (11) Alzheimer's dementia (12) PVC (premature ventricular contraction) (13) Hypertension (14) Squamous cell esophageal cancer (15) Feeding by G-tube (16) Dehydration (17) Anemia (18) Severe malnutrition Assessment & Plan: DAILY ESTIMATED NEEDS: Needs based on underweight, suspected wt loss, wounds/ 63kg 25-33 kcals/kg 4749-3236 total kcals 1.25-2 g protein/kg 78-126 g total protein 25-30 mL/kg 3514-8953 total fluid mLs NUTRITION DIAGNOSIS: * Swallowing difficulty R/T dysphagia w/ h/o CVA as evidenced by now s/p recent PEG placement (08/08/19), on GT feeds, held at time, s/p code blue (09/07), orally intubated, now extubated. * Increased kcal/prot intake needs R/T suspected significant wt loss and underweight status, wounds as evidenced by 10lbs/6.7% wt loss in 1 month, 76% IBW w/ BMI of 18.4, admitted w/ DTPI wound @ sacrum, Lt heel, partial thickness pressure injury cleft of R L ear. CURRENT TF:Osmolite 1.2 @ 60ml/hr x 22 hrs ENTERAL NUTRITION RECOMMENDATIONS: Osmolite 1.2 @ 60ml/hr x 22 hrs + Prosource x 1 to provide 1320ml, 1584kcal, 73g +11g prot, 1082ml free water - Add Prosource x 1 to meet protein needs - HOLD 1 hr before and after synthroid meds. add Prosource 1 pack daily to better meet est pro needs - Flush per MD/ HOB over 30 degrees WITH ELEV BG, rec TF change to Glucerna 1.2 w/ a goal of 60ml/hr x22 hrs to provide 1320ml, 1584kcal, 79g prot ADDITIONAL RECOMMENDATIONS: * PER SNF: HT=6'1" WT= 139lbs ("August weight" from SNF) -> calibrated bedscale wt * Monitor K, need for TF change (K 5.9 upon adm, now wnl) * Wound care: add Vit C 500mg QD + Wesley 1pkt BID via PEG * Monitor BGs, need for NISS: h/o DM per MD (checking A1C not suggested given low hgb) (19) Encounter for PEG (percutaneous endoscopic gastrostomy) (20) At high risk for aspiration (21) Pleural effusion (22) Suspected COVID-19 virus infection Jan Mora October 11, 2019 16:32
--- NOTE | 2019-10-11 16:47 | Internal Med Progress Note ---
Subjective Date of Service: October 11, 2019 Physician Name Xander Bah Attending Physician Lamont Hayes MD Current Medications Medications (Trade) Dose Ordered Sig/Kike Route PRN Reason Start Time Stop Time Status Last Admin Dose Admin Amlodipine Besylate (Norvasc) 5 mg BID@0900,2100 NG 09/24/19 21:00 10/22/19 08:59 10/11/19 09:21 Docusate Sodium (Colace) 100 mg TID GT 10/05/19 13:00 11/03/19 08:59 10/11/19 13:09 Heparin Sodium (Porcine) (Heparin 5000 units/ml) 5,000 units EVERY 12 HOURS SUBQ 09/24/19 09:00 10/22/19 08:59 10/11/19 09:22 Lansoprazole (Prevacid) 30 mg DAILY GT 10/04/19 09:00 11/03/19 08:59 10/11/19 09:21 Meropenem 1 gm/ Sodium Chloride 55 ml @ 110 mls/hr Q8HR IVPB 10/07/19 14:00 10/13/19 23:59 10/11/19 13:09 Quetiapine Fumarate (SEROqueL) 25 mg Q8H PRN NG Agitation 09/24/19 02:35 10/30/19 02:34 10/08/19 20:45 Sennosides (Senokot) 8.6 mg DAILY PRN ORAL Constipation 10/06/19 10:15 11/05/19 10:14 10/07/19 21:56 Allergies: Coded Allergies: PENICILLINS (Verified Allergy, Unknown, 10/27/18) tolretas cephalosporins ROS Limited/Unobtainable: Yes Subjective 84 YO M admitted with cough and congestion. Cover for Int Med-Dr Hayes. Reintubated 09/24/19 after cardiopulmonary arrest. ICU Objective Last Vital Signs Date Time Temp Pulse Resp B/P (MAP) Pulse Ox O2 Delivery O2 Flow Rate FiO2 10/11/19 16:00 98.5 19 127/63 (84) 100 10/11/19 16:00 40 10/11/19 16:00 Mechanical Ventilator 10/11/19 14:03 85 Laboratory Tests Test 10/11/19 05:25 White Blood Count 11.9 K/UL (4.8-10.8) H Red Blood Count 3.49 M/UL (4.70-6.10) L Hemoglobin 9.2 G/DL (14.2-18.0) L Hematocrit 28.1 % (42.0-52.0) L Mean Corpuscular Volume 80 FL (80-99) Mean Corpuscular Hemoglobin 26.3 PG (27.0-31.0) L Mean Corpuscular Hemoglobin Concent 32.7 G/DL (32.0-36.0) Red Cell Distribution Width 16.6 % (11.6-14.8) H Platelet Count 413 K/UL (150-450) Mean Platelet Volume 5.3 FL (6.5-10.1) L Neutrophils (%) (Auto) 70.8 % (45.0-75.0) Lymphocytes (%) (Auto) 15.3 % (20.0-45.0) L Monocytes (%) (Auto) 9.7 % (1.0-10.0) Eosinophils (%) (Auto) 3.5 % (0.0-3.0) H Basophils (%) (Auto) 0.7 % (0.0-2.0) Sodium Level 136 MMOL/L (136-145) Potassium Level 5.0 MMOL/L (3.5-5.1) Chloride Level 101 MMOL/L (98-107) Carbon Dioxide Level 26 MMOL/L (21-32) Anion Gap 9 mmol/L (5-15) Blood Urea Nitrogen 28 mg/dL (7-18) H Creatinine 1.0 MG/DL (0.55-1.30) Estimat Glomerular Filtration Rate > 60 mL/min (>60) Glucose Level 144 MG/DL (74-106) H Calcium Level 8.9 MG/DL (8.5-10.1) Intake and Output 10/10/19 10/11/19 19:00 07:00 Intake Total 975 ml 935 ml Output Total 665 ml 610 ml Balance 310 ml 325 ml Intake Free Water 200 ml 160 ml IV Total 55 ml 55 ml Tube Feeding 720 ml 720 ml Output Urine Total 665 ml 610 ml # Bowel Movements 1 3 Objective PHYSICAL EXAMINATION: GENERAL: The patient is a thin-appearing male, in no apparent distress. HEENT: Eyes, pupils are equal and responsive to light and accommodation. Extraocular movements are intact. NECK: Supple without lymphadenopathy. CHEST: Mech vent; Lungs are clear to auscultation bilaterally with decreased breath sounds on the right. There are no wheezes appreciated. ABDOMEN: Soft, nontender, and nondistended. Positive bowel sounds. No evidence of hepatosplenomegaly. Currently, no rebound or guarding noted. EXTREMITIES: Negative for clubbing, cyanosis, or edema. RECTAL/GENITAL: Not performed. NEUROLOGIC: Cranial nerves II through XII are grossly intact without focal deficits. Assessment/Plan Assessment/Plan ASSESSMENT: This is an 84-year-old male with: 1. 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 Urinary tract infection=jennifer 3. Right pleural effusion. 4. Esophageal mass. 5. Dysphagia. 6. Diabetes. 7. Alzheimer's dementia. 8. Cerebrovascular disease. 9. Hypothyroidism. 10. Seizure disorder. 11. Iron deficiency anemia. 13. Respiratory failure 14. S/P cardiopulmonary arrest 15. Anemia TREATMENT: 1. Right perihilar Pneumonia/pleural effusion. COVID 19 and Influenza negative. A Pulmonary consultation has been obtained with Dr. Vania Hui. S/P right thoracentesis 09/19/19. We will follow recommendation of Pulmonary. ID=Dr Roach ABX= S/P levofloxacin and vanco; Meropenem per ID 2. Urinary tract infection. . A urine culture =jennifer 3. Right pleural effusion. As above, a Pulmonary consultation has been obtained with Dr. Vania Hui. The patient may require thoracentesis during this hospitalization. 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 A Gastroenterology consultation has been obtained with Dr. Darrick Rosario. 5. Dysphagia. The patient is status post PEG placement on 08/08/[address] at [facility] by Dr. Darrick Rosario. 6. Diabetes type 2. A NovoLog sliding scale has been instituted. 7. Alzheimer's dementia. 8. Cerebrovascular disease, status post cerebrovascular accident. 9. Hypothyroidism. Continue levothyroxine as above. 10. Seizure disorder. 11. Iron deficiency anemia. 12. reintubated 09/24/19-see code blue note 13. S/P transfusion 2 units PRBC Xander Bah MD October 11, 2019 16:47
[2019-10-12] VITALS (24 sets, daily range): BP systolic 91–131; BP diastolic 42–66
[2019-10-12] MEDS: Meropenem 1 GM in NS 55 ML IVPB SCH ×3 (05:29→22:00)
[2019-10-12 06:30] LABS: HEMOGLOBIN 7.8 G/DL (14.2-18.0); MEAN CORPUSCULAR VOLUME 80 FL (80-99); PLATELET COUNT 420 K/UL (150-450); RED BLOOD COUNT 2.98 M/UL (4.70-6.10); RED CELL DISTRIBUTION WIDTH 16.6 % (11.6-14.8); WHITE BLOOD COUNT 11.9 K/UL (4.8-10.8)
[2019-10-12 07:00] LABS: ANION GAP 5 mmol/L (5-15); BLOOD UREA NITROGEN 31 mg/dL (7-18); CALCIUM 8.9 MG/DL (8.5-10.1); CARBON DIOXIDE 28 MMOL/L (21-32); CHLORIDE 103 MMOL/L (98-107); POTASSIUM 5.1 MMOL/L (3.5-5.1); SODIUM 136 MMOL/L (136-145)
[2019-10-12] MEDS: Docusate 100mg/10ml Liq GT SCH ×3 (08:25→17:05)
[2019-10-12] MEDS: Heparin 5000 units/ml inj SUBQ SCH ×2 (08:26→20:40)
--- NOTE | 2019-10-12 09:10 | General Progress Note ---
Assessment/Plan Status: unchanged Assessment/Plan: 1. Esophageal cancer. 2. Dysphagia. 3. Diabetes type 2. 4. Dementia. 5. CVA. 6. Hypothyroidism. 7. Seizure disorder. 8. Iron deficiency anemia. 9. Respiratory failure. 10. Dysphagia with G-tube stable H&H GT has been changed and working well GT flushes dietitian in put appreciated>>> TF Javity subhash abx per id pulm care bowel regimen recent labs and notes reviewed D/W the nurse will fu Subjective ROS Limited/Unobtainable: No Allergies: Coded Allergies: PENICILLINS (Verified Allergy, Unknown, 10/27/18) tolretas cephalosporins Objective Last 24 Hour Vital Signs Date Time Temp Pulse Resp B/P (MAP) Pulse Ox O2 Delivery O2 Flow Rate FiO2 10/12/19 08:25 89 131/48 10/12/19 08:00 40 10/12/19 07:13 89 19 40 10/12/19 07:00 89 21 131/48 (75) 94 10/12/19 06:45 85 19 10/12/19 06:00 99.5 90 23 124/60 (81) 99 10/12/19 05:28 89 20 40 10/12/19 05:00 98.6 90 23 112/56 (74) 99 10/12/19 04:00 98.6 90 23 112/56 (74) 99 10/12/19 04:00 40 10/12/19 04:00 Mechanical Ventilator 10/12/19 04:00 93 10/12/19 03:00 93 21 122/56 (78) 100 10/12/19 02:00 88 17 95/56 (69) 100 10/12/19 01:26 87 20 40 10/12/19 01:00 91 24 97/58 (71) 100 10/12/19 00:00 Mechanical Ventilator 10/12/19 00:00 40 10/12/19 00:00 90 10/12/19 00:00 98.5 86 23 91/50 (64) 100 10/11/19 23:07 89 22 40 10/11/19 23:00 87 25 104/51 (68) 100 10/11/19 22:00 88 20 110/51 (70) 100 10/11/19 21:24 86 115/56 5/5/20 21:07 91 22 40 10/11/19 21:00 99.0 89 22 115/58 (77) 100 10/11/19 20:30 88 17 110/60 (77) 100 10/11/19 20:00 40 10/11/19 20:00 88 17 115/60 (78) 100 10/11/19 20:00 85 10/11/19 20:00 Mechanical Ventilator 10/11/19 19:29 88 24 40 10/11/19 19:00 99.1 87 19 117/51 (73) 100 10/11/19 18:00 89 17 119/62 (81) 100 10/11/19 17:00 88 17 124/51 (75) 100 10/11/19 16:58 94 20 40 10/11/19 16:00 98.5 86 19 127/63 (84) 100 10/11/19 16:00 87 10/11/19 16:00 40 10/11/19 16:00 Mechanical Ventilator 10/11/19 15:00 20 122/68 (86) 100 10/11/19 14:57 91 17 40 10/11/19 14:03 85 18 112/65 (81) 100 10/11/19 13:16 93 19 40 10/11/19 13:02 84 19 134/73 (93) 100 10/11/19 12:00 98.0 86 20 124/69 (87) 98 10/11/19 12:00 Mechanical Ventilator 10/11/19 12:00 89 10/11/19 12:00 40 10/11/19 11:06 89 20 40 10/11/19 10:00 98.2 88 20 122/80 (94) 97 10/11/19 09:21 90 137/79 10/11/19 09:15 88 19 40 Intake and Output 10/11/19 10/12/19 19:00 07:00 Intake Total 1020 ml 945 ml Output Total 885 ml 630 ml Balance 135 ml 315 ml Intake Free Water 170 ml IV Total 55 ml Tube Feeding 720 ml 720 ml Other 300 ml Output Urine Total 885 ml 630 ml Laboratory Tests 10/12/19 04:47: White Blood Count 11.9H, Red Blood Count 2.98L, Hemoglobin 7.8L, Hematocrit 24.0L, Mean Corpuscular Volume 80, Mean Corpuscular Hemoglobin 26.2L, Mean Corpuscular Hemoglobin Concent 32.6, Red Cell Distribution Width 16.6H, Platelet Count 420, Mean Platelet Volume 5.1L, Neutrophils (%) (Auto) , Lymphocytes (%) (Auto) , Monocytes (%) (Auto) , Eosinophils (%) (Auto) , Basophils (%) (Auto) , Neutrophils % (Manual) [Pending], Lymphocytes % (Manual) [Pending], Platelet Estimate [Pending], Platelet Morphology [Pending], Sodium Level 136, Potassium Level 5.1, Chloride Level 103, Carbon Dioxide Level 28, Anion Gap 5, Blood Urea Nitrogen 31H, Creatinine 1.0, Estimat Glomerular Filtration Rate > 60, Glucose Level 135H, Calcium Level 8.9 Height (Feet): 5 Height (Inches): 11.00 Weight (Pounds): 145 General Appearance: no apparent distress EENT: normal ENT inspection Neck: supple Cardiovascular: normal rate Respiratory/Chest: decreased breath sounds Abdomen: normal bowel sounds, non tender, soft Extremities: non-tender Darrick Rosario MD October 12, 2019 09:10
--- NOTE | 2019-10-12 09:55 | Surgery Progress Note ---
Surgery Progress Note Subjective Additional Comments no improvement not able to extubate code status? discussed with RN Objective Last 24 Hour Vital Signs Date Time Temp Pulse Resp B/P (MAP) Pulse Ox O2 Delivery O2 Flow Rate FiO2 10/12/19 09:47 86 21 40 10/12/19 09:45 100 10/12/19 09:00 89 19 116/66 (83) 100 10/12/19 08:25 89 131/48 10/12/19 08:00 100.4 88 17 124/59 (80) 91 10/12/19 08:00 Mechanical Ventilator 10/12/19 08:00 40 10/12/19 07:13 89 19 40 10/12/19 07:00 89 21 131/48 (75) 94 10/12/19 06:45 85 19 10/12/19 06:00 99.5 90 23 124/60 (81) 99 10/12/19 05:28 89 20 40 10/12/19 05:00 98.6 90 23 112/56 (74) 99 10/12/19 04:00 98.6 90 23 112/56 (74) 99 10/12/19 04:00 40 10/12/19 04:00 Mechanical Ventilator 10/12/19 04:00 93 10/12/19 03:00 93 21 122/56 (78) 100 10/12/19 02:00 88 17 95/56 (69) 100 10/12/19 01:26 87 20 40 10/12/19 01:00 91 24 97/58 (71) 100 10/12/19 00:00 Mechanical Ventilator 10/12/19 00:00 40 10/12/19 00:00 90 10/12/19 00:00 98.5 86 23 91/50 (64) 100 10/11/19 23:07 89 22 40 10/11/19 23:00 87 25 104/51 (68) 100 10/11/19 22:00 88 20 110/51 (70) 100 10/11/19 21:24 86 115/56 10/11/19 21:07 91 22 40 10/11/19 21:00 99.0 89 22 115/58 (77) 100 10/11/19 20:30 88 17 110/60 (77) 100 10/11/19 20:00 40 10/11/19 20:00 88 17 115/60 (78) 100 10/11/19 20:00 85 10/11/19 20:00 Mechanical Ventilator 10/11/19 19:29 88 24 40 10/11/19 19:00 99.1 87 19 117/51 (73) 100 10/11/19 18:00 89 17 119/62 (81) 100 10/11/19 17:00 88 17 124/51 (75) 100 10/11/19 16:58 94 20 40 10/11/19 16:00 98.5 86 19 127/63 (84) 100 10/11/19 16:00 87 10/11/19 16:00 40 10/11/19 16:00 Mechanical Ventilator 10/11/19 15:00 20 122/68 (86) 100 10/11/19 14:57 91 17 40 10/11/19 14:03 85 18 112/65 (81) 100 10/11/19 13:16 93 19 40 10/11/19 13:02 84 19 134/73 (93) 100 10/11/19 12:00 98.0 86 20 124/69 (87) 98 10/11/19 12:00 Mechanical Ventilator 10/11/19 12:00 89 10/11/19 12:00 40 10/11/19 11:06 89 20 40 10/11/19 10:00 98.2 88 20 122/80 (94) 97 I&O Intake and Output 10/11/19 10/12/19 19:00 07:00 Intake Total 1020 ml 945 ml Output Total 885 ml 630 ml Balance 135 ml 315 ml Intake Free Water 170 ml IV Total 55 ml Tube Feeding 720 ml 720 ml Other 300 ml Output Urine Total 885 ml 630 ml Dressing: other Wound: other Drains: other Cardiovascular: RSR Respiratory: decreased breath sounds Abdomen: soft, present bowel sounds Extremities: no cyanosis, other Laboratory Tests Test 10/12/19 04:47 White Blood Count 11.9 K/UL (4.8-10.8) H Red Blood Count 2.98 M/UL (4.70-6.10) L Hemoglobin 7.8 G/DL (14.2-18.0) L Hematocrit 24.0 % (42.0-52.0) L Mean Corpuscular Volume 80 FL (80-99) Mean Corpuscular Hemoglobin 26.2 PG (27.0-31.0) L Mean Corpuscular Hemoglobin Concent 32.6 G/DL (32.0-36.0) Red Cell Distribution Width 16.6 % (11.6-14.8) H Platelet Count 420 K/UL (150-450) Mean Platelet Volume 5.1 FL (6.5-10.1) L Neutrophils (%) (Auto) % (45.0-75.0) Lymphocytes (%) (Auto) % (20.0-45.0) Monocytes (%) (Auto) % (1.0-10.0) Eosinophils (%) (Auto) % (0.0-3.0) Basophils (%) (Auto) % (0.0-2.0) Differential Total Cells Counted 100 Neutrophils % (Manual) 72 % (45-75) Lymphocytes % (Manual) 13 % (20-45) L Monocytes % (Manual) 10 % (1-10) Eosinophils % (Manual) 5 % (0-3) H Basophils % (Manual) 0 % (0-2) Band Neutrophils 0 % (0-8) Platelet Estimate Adequate Platelet Morphology Normal Hypochromasia 1+ Anisocytosis 1+ Sodium Level 136 MMOL/L (136-145) Potassium Level 5.1 MMOL/L (3.5-5.1) Chloride Level 103 MMOL/L (98-107) Carbon Dioxide Level 28 MMOL/L (21-32) Anion Gap 5 mmol/L (5-15) Blood Urea Nitrogen 31 mg/dL (7-18) H Creatinine 1.0 MG/DL (0.55-1.30) Estimat Glomerular Filtration Rate > 60 mL/min (>60) Glucose Level 135 MG/DL (74-106) H Calcium Level 8.9 MG/DL (8.5-10.1) Plan Problems: (1) UTI (urinary tract infection) (2) Acute respiratory failure Assessment & Plan: There is infiltrate suspected in the right perihilar region obscuring the right hilum. There is a hazy opacity that may partially be accounted for by pleural fluid on the right. Reticular densities are present on the left in the perihilar aspect of the lung. Endotracheal tube is in good position just above the anselmo. Heart size is normal. IMPRESSION: Suspected perihilar airspace disease in the right lung suspicious for pneumonia. Reticular nodular infiltrate in the left lung noted also. Right pleural effusion suspected. Endotracheal tube in good position cont vents support Lungs: Similar bilateral interstitial prominence, greater on the right. Stable right perihilar, mid and lower lung opacities. Similar left lung base opacity. Pleural space: Small left pleural effusion is stable. Loculated right pleural effusion is stable. No pneumothorax. Heart: Unremarkable. No cardiomegaly. Mediastinum: Unremarkable. Bones/joints: Unremarkable. Tubes, lines and devices: Endotracheal tube has been pulled back and is 10 cm above the anselmo near the thoracic inlet. IMPRESSION: Endotracheal tube has been pulled back and is 10 cm above the anselmo near the thoracic inlet. Remainder findings are stable. may need thoracentesis soon Moderate size right pleural effusion with right upper and lower lobe atelectasis/consolidation, as well as mild pulmonary edema.. 1. Patchy opacities throughout the right lung left mid and lower lung, similar to slightly increased. Possible small bilateral pleural effusions. 2. Endotracheal tube terminates in the region of the lower thoracic trachea above the anselmo. consider trach code status? (3) Sepsis Assessment & Plan: Pt cachetic and presented on admission with multiple pressure injuries. Partial thickness pressure injury Cleft of L ear(L)1.2cm x (W)0.4cm. Base of wound moist and viable with small amt sanguineous exudate. Partial thickness pressure injury cleft of R ear(L)0.5cm x (W)0.7cm. Base of wound moist and viable Periwound erythematous.Small amt sanguineous exudate noted. Sacral DTPI(L)5cm x (W)10.5cm. Base of injury is purple with maroon borders. Coccygeal bony protrusion with darker skin tone, and small opening noted to R gluteus (L)0.5cm x (W)0.5cm within base of injury. No further skin breakdown periwound. Intact blood blister noted to R 1st metatarsal head(L)1.1cm x (W)2.5cm. DTPI noted to L heel extending into plantar aspect. Base of injury presents as an intact blood filled blister. Periwound is boggy with non-blanching erythema. R heel is boggy but blanchable. wounds unlikely etiology of sepsis respiratory but given current condition high risk for breakdown and worsening will monitor closely discussed with RN and staff great care being provided coded acls intubated in ICU prognosis guarded Tx.Plan: Apply Betadine to clefts of R and L ears. Pad oxygen tubing with gauze and keep oxygen tubing loose. Apply Moisture Barrier Paste to Sacrum. Cover with Optifoam drsg. Change every 3 days and prn. Apply Betadine to L heel. Cover with Optifoam drsg. Change every 3 days and prn. Apply Betadine to R 1st metatarsal head. Cover with Optifoam drsg. Change every 3 days and prn. Apply Cavilon Skin Barrier R heel. Cover with Optifoam drsg. Change every 7 days and prn. Reposition at least every 2hours or as tolerated. Off-load heels with pillow. on air mattress but not very comfortable appearing cont current care / pulm management (4) Severe anemia (5) Nosocomial pneumonia (6) Atrial fibrillation (7) Acute metabolic encephalopathy (8) History of CVA (cerebrovascular accident) (9) Diabetes mellitus (10) Hypothyroidism (11) Alzheimer's dementia (12) PVC (premature ventricular contraction) (13) Hypertension (14) Squamous cell esophageal cancer (15) Feeding by G-tube (16) Dehydration (17) Anemia (18) Severe malnutrition Assessment & Plan: DAILY ESTIMATED NEEDS: Needs based on underweight, suspected wt loss, wounds/ 63kg 25-33 kcals/kg 3329-5421 total kcals 1.25-2 g protein/kg 78-126 g total protein 25-30 mL/kg 3678-2350 total fluid mLs NUTRITION DIAGNOSIS: * Swallowing difficulty R/T dysphagia w/ h/o CVA as evidenced by now s/p recent PEG placement (08/08/19), on GT feeds, held at time, s/p code blue (09/07), orally intubated, now extubated. * Increased kcal/prot intake needs R/T suspected significant wt loss and underweight status, wounds as evidenced by 10lbs/6.7% wt loss in 1 month, 76% IBW w/ BMI of 18.4, admitted w/ DTPI wound @ sacrum, Lt heel, partial thickness pressure injury cleft of R L ear. CURRENT TF:Osmolite 1.2 @ 60ml/hr x 22 hrs ENTERAL NUTRITION RECOMMENDATIONS: Osmolite 1.2 @ 60ml/hr x 22 hrs + Prosource x 1 to provide 1320ml, 1584kcal, 73g +11g prot, 1082ml free water - Add Prosource x 1 to meet protein needs - HOLD 1 hr before and after synthroid meds. add Prosource 1 pack daily to better meet est pro needs - Flush per MD/ HOB over 30 degrees WITH ELEV BG, rec TF change to Glucerna 1.2 w/ a goal of 60ml/hr x22 hrs to provide 1320ml, 1584kcal, 79g prot ADDITIONAL RECOMMENDATIONS: * PER SNF: HT=6'1" WT= 139lbs ("August weight" from SNF) -> calibrated bedscale wt * Monitor K, need for TF change (K 5.9 upon adm, now wnl) * Wound care: add Vit C 500mg QD + Wesley 1pkt BID via PEG * Monitor BGs, need for NISS: h/o DM per MD (checking A1C not suggested given low hgb) (19) Encounter for PEG (percutaneous endoscopic gastrostomy) (20) At high risk for aspiration (21) Pleural effusion (22) Suspected COVID-19 virus infection Jan Mora October 12, 2019 09:55
--- NOTE | 2019-10-12 10:39 | Pulmonolgy Critical Care Note ---
Critical Care - Asmt/Plan Problems: (1) Acute respiratory failure (2) Pleural effusion Assessment & Plan: s/p thoracentesis times 2, increasing again (3) Nosocomial pneumonia (4) Sepsis (5) Squamous cell esophageal cancer (6) Diabetes mellitus (7) Severe malnutrition (8) Alzheimer's dementia (9) History of CVA (cerebrovascular accident) (10) Feeding by G-tube Respiratory: monitor respiratory rate, adjust FIO2, CXR Cardiac: continue pressors, continue to monitor HR/BP Renal: F/U I&O, check electrolytes Infectious Disease: check cultures Gastrointestinal: continue feedings/current rate Endocrine: monitor blood sugar Hematologic: transfuse if hgb<8.5 Affect: PRN ativan Prophylaxis: Protonix, Heparin Time Spent (Minutes): 40 Notes Reviewed: hvac installer, cardio, 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 with: nurses, consultants, rn case managementit service manager - Objective Last 24 Hour Vital Signs Date Time Temp Pulse Resp B/P (MAP) Pulse Ox O2 Delivery O2 Flow Rate FiO2 10/12/19 10:00 89 21 125/62 (83) 100 10/12/19 09:47 86 21 40 10/12/19 09:45 100 10/12/19 09:00 89 19 116/66 (83) 100 10/12/19 08:25 89 131/48 10/12/19 08:00 100.4 88 17 124/59 (80) 91 10/12/19 08:00 Mechanical Ventilator 10/12/19 08:00 40 10/12/19 07:13 89 19 40 10/12/19 07:00 89 21 131/48 (75) 94 10/12/19 06:45 85 19 10/12/19 06:00 99.5 90 23 124/60 (81) 99 10/12/19 05:28 89 20 40 10/12/19 05:00 98.6 90 23 112/56 (74) 99 10/12/19 04:00 98.6 90 23 112/56 (74) 99 10/12/19 04:00 40 10/12/19 04:00 Mechanical Ventilator 10/12/19 04:00 93 10/12/19 03:00 93 21 122/56 (78) 100 10/12/19 02:00 88 17 95/56 (69) 100 10/12/19 01:26 87 20 40 10/12/19 01:00 91 24 97/58 (71) 100 10/12/19 00:00 Mechanical Ventilator 10/12/19 00:00 40 10/12/19 00:00 90 10/12/19 00:00 98.5 86 23 91/50 (64) 100 10/11/19 23:07 89 22 40 10/11/19 23:00 87 25 104/51 (68) 100 10/11/19 22:00 88 20 110/51 (70) 100 10/11/19 21:24 86 115/56 10/11/19 21:07 91 22 40 10/11/19 21:00 99.0 89 22 115/58 (77) 100 10/11/19 20:30 88 17 110/60 (77) 100 10/11/19 20:00 40 10/11/19 20:00 88 17 115/60 (78) 100 10/11/19 20:00 85 10/11/19 20:00 Mechanical Ventilator 10/11/19 19:29 88 24 40 10/11/19 19:00 99.1 87 19 117/51 (73) 100 10/11/19 18:00 89 17 119/62 (81) 100 10/11/19 17:00 88 17 124/51 (75) 100 10/11/19 16:58 94 20 40 10/11/19 16:00 98.5 86 19 127/63 (84) 100 10/11/19 16:00 87 10/11/19 16:00 40 10/11/19 16:00 Mechanical Ventilator 10/11/19 15:00 20 122/68 (86) 100 10/11/19 14:57 91 17 40 10/11/19 14:03 85 18 112/65 (81) 100 10/11/19 13:16 93 19 40 10/11/19 13:02 84 19 134/73 (93) 100 10/11/19 12:00 98.0 86 20 124/69 (87) 98 10/11/19 12:00 Mechanical Ventilator 10/11/19 12:00 89 10/11/19 12:00 40 10/11/19 11:06 89 20 40 Status: obtunded Condition: critical HEENT: atraumatic, normocephalic Lungs: rales, rhonchi Heart: HR/BP stable Abdomen: soft Extremities: no C/C/E Critical Care - Subjective ROS Limited/Unobtainable: Yes Interval Events: not tolerating weaning EKG Rhythm: Sinus Rhythm FI02: 40 Vent Support Breath Rate: 12 Vent Support Mode: AC Vent Tidal Volume: 550 Sputum Amount: Moderate PEEP: 5.0 PIP: 31 Tube Feeding Amount: 60 I&O: Intake and Output 10/11/19 10/12/19 19:00 07:00 Intake Total 1020 ml 945 ml Output Total 885 ml 630 ml Balance 135 ml 315 ml Intake Free Water 170 ml IV Total 55 ml Tube Feeding 720 ml 720 ml Other 300 ml Output Urine Total 885 ml 630 ml ET-Tube: 7.5 ET Position: 26 Labs: Laboratory Tests Test 10/12/19 04:47 White Blood Count 11.9 K/UL (4.8-10.8) H Red Blood Count 2.98 M/UL (4.70-6.10) L Hemoglobin 7.8 G/DL (14.2-18.0) L Hematocrit 24.0 % (42.0-52.0) L Mean Corpuscular Volume 80 FL (80-99) Mean Corpuscular Hemoglobin 26.2 PG (27.0-31.0) L Mean Corpuscular Hemoglobin Concent 32.6 G/DL (32.0-36.0) Red Cell Distribution Width 16.6 % (11.6-14.8) H Platelet Count 420 K/UL (150-450) Mean Platelet Volume 5.1 FL (6.5-10.1) L Neutrophils (%) (Auto) % (45.0-75.0) Lymphocytes (%) (Auto) % (20.0-45.0) Monocytes (%) (Auto) % (1.0-10.0) Eosinophils (%) (Auto) % (0.0-3.0) Basophils (%) (Auto) % (0.0-2.0) Differential Total Cells Counted 100 Neutrophils % (Manual) 72 % (45-75) Lymphocytes % (Manual) 13 % (20-45) L Monocytes % (Manual) 10 % (1-10) Eosinophils % (Manual) 5 % (0-3) H Basophils % (Manual) 0 % (0-2) Band Neutrophils 0 % (0-8) Platelet Estimate Adequate Platelet Morphology Normal Hypochromasia 1+ Anisocytosis 1+ Sodium Level 136 MMOL/L (136-145) Potassium Level 5.1 MMOL/L (3.5-5.1) Chloride Level 103 MMOL/L (98-107) Carbon Dioxide Level 28 MMOL/L (21-32) Anion Gap 5 mmol/L (5-15) Blood Urea Nitrogen 31 mg/dL (7-18) H Creatinine 1.0 MG/DL (0.55-1.30) Estimat Glomerular Filtration Rate > 60 mL/min (>60) Glucose Level 135 MG/DL (74-106) H Calcium Level 8.9 MG/DL (8.5-10.1) Vania Hui MD October 12, 2019 10:39
--- NOTE | 2019-10-12 10:41 | General Progress Note ---
Progress Note Progress Note I talked to pts niece again. At this point she still needs to talk to other family members. Some family members want to wait until God takes him. But she agreed with DNR for now. She will ask other nice to call me. Vania Hui MD October 12, 2019 10:41
--- NOTE | 2019-10-12 11:10 | Internal Med Progress Note ---
Subjective Date of Service: October 12, 2019 Physician Name Xander Bah Attending Physician Lamont Hayes MD Current Medications Medications (Trade) Dose Ordered Sig/Kike Route PRN Reason Start Time Stop Time Status Last Admin Dose Admin Amlodipine Besylate (Norvasc) 5 mg BID@0900,2100 NG 09/24/19 21:00 10/22/19 08:59 10/12/19 08:25 Docusate Sodium (Colace) 100 mg TID GT 10/05/19 13:00 11/03/19 08:59 10/12/19 08:25 Heparin Sodium (Porcine) (Heparin 5000 units/ml) 5,000 units EVERY 12 HOURS SUBQ 09/24/19 09:00 10/22/19 08:59 10/12/19 08:26 Lansoprazole (Prevacid) 30 mg DAILY GT 10/04/19 09:00 11/03/19 08:59 10/12/19 08:25 Meropenem 1 gm/ Sodium Chloride 55 ml @ 110 mls/hr Q8HR IVPB 10/07/19 14:00 10/13/19 23:59 10/12/19 05:29 Quetiapine Fumarate (SEROqueL) 25 mg Q8H PRN NG Agitation 09/24/19 02:35 10/30/19 02:34 10/08/19 20:45 Sennosides (Senokot) 8.6 mg DAILY PRN ORAL Constipation 10/06/19 10:15 11/05/19 10:14 10/07/19 21:56 Allergies: Coded Allergies: PENICILLINS (Verified Allergy, Unknown, 10/27/18) tolretas cephalosporins ROS Limited/Unobtainable: Yes Subjective 84 YO M admitted with cough and congestion. Cover for Int Med-Dr Hayes. Reintubated 09/24/19 after cardiopulmonary arrest. ICU Objective Last Vital Signs Date Time Temp Pulse Resp B/P (MAP) Pulse Ox O2 Delivery O2 Flow Rate FiO2 10/12/19 10:00 89 21 125/62 (83) 100 10/12/19 09:47 40 10/12/19 08:00 100.4 10/12/19 08:00 Mechanical Ventilator Laboratory Tests Test 10/12/19 04:47 White Blood Count 11.9 K/UL (4.8-10.8) H Red Blood Count 2.98 M/UL (4.70-6.10) L Hemoglobin 7.8 G/DL (14.2-18.0) L Hematocrit 24.0 % (42.0-52.0) L Mean Corpuscular Volume 80 FL (80-99) Mean Corpuscular Hemoglobin 26.2 PG (27.0-31.0) L Mean Corpuscular Hemoglobin Concent 32.6 G/DL (32.0-36.0) Red Cell Distribution Width 16.6 % (11.6-14.8) H Platelet Count 420 K/UL (150-450) Mean Platelet Volume 5.1 FL (6.5-10.1) L Neutrophils (%) (Auto) % (45.0-75.0) Lymphocytes (%) (Auto) % (20.0-45.0) Monocytes (%) (Auto) % (1.0-10.0) Eosinophils (%) (Auto) % (0.0-3.0) Basophils (%) (Auto) % (0.0-2.0) Differential Total Cells Counted 100 Neutrophils % (Manual) 72 % (45-75) Lymphocytes % (Manual) 13 % (20-45) L Monocytes % (Manual) 10 % (1-10) Eosinophils % (Manual) 5 % (0-3) H Basophils % (Manual) 0 % (0-2) Band Neutrophils 0 % (0-8) Platelet Estimate Adequate Platelet Morphology Normal Hypochromasia 1+ Anisocytosis 1+ Sodium Level 136 MMOL/L (136-145) Potassium Level 5.1 MMOL/L (3.5-5.1) Chloride Level 103 MMOL/L (98-107) Carbon Dioxide Level 28 MMOL/L (21-32) Anion Gap 5 mmol/L (5-15) Blood Urea Nitrogen 31 mg/dL (7-18) H Creatinine 1.0 MG/DL (0.55-1.30) Estimat Glomerular Filtration Rate > 60 mL/min (>60) Glucose Level 135 MG/DL (74-106) H Calcium Level 8.9 MG/DL (8.5-10.1) Intake and Output 10/11/19 10/12/19 19:00 07:00 Intake Total 1020 ml 945 ml Output Total 885 ml 630 ml Balance 135 ml 315 ml Intake Free Water 170 ml IV Total 55 ml Tube Feeding 720 ml 720 ml Other 300 ml Output Urine Total 885 ml 630 ml Objective PHYSICAL EXAMINATION: GENERAL: The patient is a thin-appearing male, in no apparent distress. HEENT: Eyes, pupils are equal and responsive to light and accommodation. Extraocular movements are intact. NECK: Supple without lymphadenopathy. CHEST: Mech vent; Lungs are clear to auscultation bilaterally with decreased breath sounds on the right. There are no wheezes appreciated. ABDOMEN: Soft, nontender, and nondistended. Positive bowel sounds. No evidence of hepatosplenomegaly. Currently, no rebound or guarding noted. EXTREMITIES: Negative for clubbing, cyanosis, or edema. RECTAL/GENITAL: Not performed. NEUROLOGIC: Cranial nerves II through XII are grossly intact without focal deficits. Assessment/Plan Assessment/Plan ASSESSMENT: This is an 84-year-old male with: 1. 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 Urinary tract infection=jennifer 3. Right pleural effusion. 4. Esophageal mass. 5. Dysphagia. 6. Diabetes. 7. Alzheimer's dementia. 8. Cerebrovascular disease. 9. Hypothyroidism. 10. Seizure disorder. 11. Iron deficiency anemia. 13. Respiratory failure 14. S/P cardiopulmonary arrest 15. Anemia 16. Patient now DNR/DNI-see critical care note TREATMENT: 1. Right perihilar Pneumonia/pleural effusion. COVID 19 and Influenza negative. A Pulmonary consultation has been obtained with Dr. Vania Hui. S/P right thoracentesis 09/19/19. We will follow recommendation of Pulmonary. ID=Dr Roach ABX= S/P levofloxacin and vanco; continue Meropenem per ID 2. Urinary tract infection. . A urine culture =jennifer 3. Right pleural effusion. As above, a Pulmonary consultation has been obtained with Dr. Vania Hui. The patient may require thoracentesis during this hospitalization. 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 A Gastroenterology consultation has been obtained with Dr. Darrick Rosario. 5. Dysphagia. The patient is status post PEG placement on 08/08/[address] at [facility] by Dr. Darrick Rosario. 6. Diabetes type 2. A NovoLog sliding scale has been instituted. 7. Alzheimer's dementia. 8. Cerebrovascular disease, status post cerebrovascular accident. 9. Hypothyroidism. Continue levothyroxine as above. 10. Seizure disorder. 11. Iron deficiency anemia. 12. reintubated 09/24/19-see code blue note 13. S/P transfusion 2 units PRBC Xander Bah MD October 12, 2019 11:10
--- NOTE | 2019-10-12 12:26 | Nephrology Progress Note ---
Assessment/Plan Problem List: (1) RAMAN (acute kidney injury) Assessment: Serum creatinine normalized with hydration (2) Dehydration (3) Suspected COVID-19 virus infection (4) Anemia (5) Sepsis (6) Diabetes mellitus (7) Hypothyroidism Assessment - Acute renal failure - Severe anemia - Sepsis, pneumonia, acute respiratory failure, suspected: Viewed 19 virus infection - Diabetes mellitus - Hypothyroidism - Feeding by G-tube - Squamous cell esophageal cancer - History of CVA (cerebrovascular accident) Plan October 6: Remains stable from renal standpoint of view Remains intubated Data reviewed October 5: Dose unchanged from renal standpoint to view Remains intubated October 4: Stable from renal standpoint of view Hemoglobin higher today October 3 Discussed with RN Remains intubated on ventilator Hemoglobin is drifting down Will reorder iron panel Remains stable from renal standpoint of view Remains full code October 2: Discussed with RN. Patient remains intubated. Family declined comfort care. Weaning trial is being attempted Main stable from renal standpoint of view We will order labs for tomorrow. Previously Patient was coded early September 23 morning and back in ICU intubated Serum creatinine miguel to 1.5, now back to normal Stable from renal standpoint of view at this point He is status remains full code Tested negative for COVID-19 Previously: Pneumonia SARS-CoV neg x2 MRSA screen pos sp cx: PSA and proteus Changes Seroquel to "as needed" due to bradycardia Discontinue IV fluid Monitor renal parameters, serum creatinine Adjust electrolytes with supplements Increase Synthroid dose Avoid nephrotoxic's as possible Ventilator management Urine studies Per orders Subjective ROS Limited/Unobtainable: Yes Objective Objective Last 24 Hour Vital Signs Date Time Temp Pulse Resp B/P (MAP) Pulse Ox O2 Delivery O2 Flow Rate FiO2 10/12/19 12:00 Mechanical Ventilator 10/12/19 12:00 99.9 83 17 114/64 (81) 100 10/12/19 12:00 40 10/12/19 11:22 83 18 40 10/12/19 11:00 84 17 116/51 (72) 100 10/12/19 10:00 89 21 125/62 (83) 100 10/12/19 09:47 86 21 40 10/12/19 09:45 100 10/12/19 09:00 89 19 116/66 (83) 100 10/12/19 08:25 89 131/48 10/12/19 08:00 100.4 88 17 124/59 (80) 91 10/12/19 08:00 Mechanical Ventilator 10/12/19 08:00 89 10/12/19 08:00 40 10/12/19 07:13 89 19 40 10/12/19 07:00 89 21 131/48 (75) 94 10/12/19 06:45 85 19 10/12/19 06:00 99.5 90 23 124/60 (81) 99 10/12/19 05:28 89 20 40 10/12/19 05:00 98.6 90 23 112/56 (74) 99 10/12/19 04:00 98.6 90 23 112/56 (74) 99 10/12/19 04:00 40 10/12/19 04:00 Mechanical Ventilator 10/12/19 04:00 93 10/12/19 03:00 93 21 122/56 (78) 100 10/12/19 02:00 88 17 95/56 (69) 100 10/12/19 01:26 87 20 40 10/12/19 01:00 91 24 97/58 (71) 100 10/12/19 00:00 Mechanical Ventilator 10/12/19 00:00 40 10/12/19 00:00 90 10/12/19 00:00 98.5 86 23 91/50 (64) 100 10/11/19 23:07 89 22 40 10/11/19 23:00 87 25 104/51 (68) 100 10/11/19 22:00 88 20 110/51 (70) 100 10/11/19 21:24 86 115/56 10/11/19 21:07 91 22 40 10/11/19 21:00 99.0 89 22 115/58 (77) 100 10/11/19 20:30 88 17 110/60 (77) 100 10/11/19 20:00 40 10/11/19 20:00 88 17 115/60 (78) 100 10/11/19 20:00 85 10/11/19 20:00 Mechanical Ventilator 10/11/19 19:29 88 24 40 10/11/19 19:00 99.1 87 19 117/51 (73) 100 10/11/19 18:00 89 17 119/62 (81) 100 10/11/19 17:00 88 17 124/51 (75) 100 10/11/19 16:58 94 20 40 10/11/19 16:00 98.5 86 19 127/63 (84) 100 10/11/19 16:00 87 10/11/19 16:00 40 10/11/19 16:00 Mechanical Ventilator 10/11/19 15:00 20 122/68 (86) 100 10/11/19 14:57 91 17 40 10/11/19 14:03 85 18 112/65 (81) 100 10/11/19 13:16 93 19 40 10/11/19 13:02 84 19 134/73 (93) 100 Intake and Output 10/11/19 10/12/19 19:00 07:00 Intake Total 1020 ml 945 ml Output Total 885 ml 630 ml Balance 135 ml 315 ml Intake Free Water 170 ml IV Total 55 ml Tube Feeding 720 ml 720 ml Other 300 ml Output Urine Total 885 ml 630 ml Laboratory Tests 10/12/19 04:47: White Blood Count 11.9H, Red Blood Count 2.98L, Hemoglobin 7.8L, Hematocrit 24.0L, Mean Corpuscular Volume 80, Mean Corpuscular Hemoglobin 26.2L, Mean Corpuscular Hemoglobin Concent 32.6, Red Cell Distribution Width 16.6H, Platelet Count 420, Mean Platelet Volume 5.1L, Neutrophils (%) (Auto) , Lymphocytes (%) (Auto) , Monocytes (%) (Auto) , Eosinophils (%) (Auto) , Basophils (%) (Auto) , Differential Total Cells Counted 100, Neutrophils % ( Manual) 72, Lymphocytes % (Manual) 13L, Monocytes % (Manual) 10, Eosinophils % ( Manual) 5H, Basophils % (Manual) 0, Band Neutrophils 0, Platelet Estimate Adequate, Platelet Morphology Normal, Hypochromasia 1+, Anisocytosis 1+, Sodium Level 136, Potassium Level 5.1, Chloride Level 103, Carbon Dioxide Level 28, Anion Gap 5, Blood Urea Nitrogen 31H, Creatinine 1.0, Estimat Glomerular Filtration Rate > 60, Glucose Level 135H, Calcium Level 8.9 Height (Feet): 5 Height (Inches): 11.00 Weight (Pounds): 145 General Appearance: no apparent distress EENT: other - Remains intubated on ventilator Cardiovascular: tachycardia Respiratory/Chest: decreased breath sounds Abdomen: distended Objective no change Fouladian,Clovis MD October 12, 2019 12:26
--- NOTE | 2019-10-12 12:38 | Infectious Diseases Prog Note ---
Assessment/Plan Assessment/Plan 09/23 SP asystole cardiac arrest VDRF 09/23 Fever; SP Mild leukocytosis, improving Probable UTI -10/01 Bcx Neg u/a wbc tnct; ucx 30-40k C.albicans PNA VDRF, sp intubation 09/08, sp extubation 09/18, re-intubated 09/23 SARS-CoV neg x3 (09/06, 09/08, 09/30) MRSA screen pos 10/09 CXR: Markedly increased and now large right pleural effusion, over 4 days. There is probably some atelectasis on the right as well in addition to the passive atelectasis from pleural fluid. Improved aeration of the left lung 10/05 CXR: Focal patchy infiltrate in the left suprahilar region, not evident previously. Slightly increased small right pleural effusion. Obscured left hemidiaphragm, likely retrocardiac consolidation and/or left pleural fluid , unchanged Stable cardiomegaly 10/02 CXR: Increasing pleural fluid and possibly parenchymal consolidation at the right lung base. Unchanged left basilar pleural and parenchymal disease. sp cx PSA (hensley S), P. stuarti (R. cefepime, ancef, levaquin; S zosyn, ertapenem) 09/30 CXR: Patchy opacities throughout the right lung left mid and lower lung, similar to slightly increased. Possible small bilateral pleural effusions. 09/29 CXR: Increasing right mid and lower lung opacity, may indicate increasing pleural fluid, increasing infiltrate, or both. 09/28 CXR: Developing hazy right basilar opacity. This could represent reaching layering pleural fluid. This could also represent reexpansion pulmonary edema given recent high-volume thoracentesis, or could represent developing ammonia or pulmonary edema. Hazy left basilar opacity, unchanged, may reflect parenchymal infiltrate versus pleural fluid versus both 09/25 CXR: Large right pleural effusion is again demonstrated. Small left pleural effusion is again demonstrated. Left lung is otherwise clear. sp cx PsA (R zozyn, S levo, gentamycin) 09/24 CXR: Moderate size right pleural effusion with right upper and lower lobe atelectasis/consolidation, as well as mild pulmonary edema.. 09/17 CXR: Similar bilateral interstitial prominence, greater on the right.Stable right perihilar, mid and lower lung opacities. Similar left lung base opacity. Small left pleural effusion is stable. Loculated right pleural effusion is stable. No pneumothorax. CXR: Right pleural effusion, also demonstrated on prior 08/09/2019 exam, slightly increased. Hazy right lung parenchymal opacity probably represents a superimposed pleural fluid but infiltrate also possible. 09/06 sp cx: PSA (hensley S) and proteus (hensley S) R pleural effusion, exudative -09/18 SP thorancetesis; removal of 2050 mL fluid; Fluid prot 5 (serum prot 7.2 ); cx Neg QTc 419 RAMAN, improving DM HTN CVA Dementia Nonverbal G tube Plan: Continue Meropenem #6/7 10/06 SP Levaquin #7 10/05 SP IV Vancomycin #6 09/19 SPcefepime # 09/09 SP vanc #4 ( Cr increased) ICU care monitor temp and CBC COVID neg x3 DW RN Thank you for this consult. [facility] will continue to follow the patient with you. Subjective Allergies: Coded Allergies: PENICILLINS (Verified Allergy, Unknown, 10/27/18) tolretas cephalosporins Subjective Tm 100.4 Fio2 40% mild leukocytosis improved Objective Vital Signs Last 24 Hour Vital Signs Date Time Temp Pulse Resp B/P (MAP) Pulse Ox O2 Delivery O2 Flow Rate FiO2 10/12/19 12:00 Mechanical Ventilator 10/12/19 12:00 99.9 83 17 114/64 (81) 100 10/12/19 12:00 40 10/12/19 11:22 83 18 40 10/12/19 11:00 84 17 116/51 (72) 100 10/12/19 10:00 89 21 125/62 (83) 100 10/12/19 09:47 86 21 40 10/12/19 09:45 100 10/12/19 09:00 89 19 116/66 (83) 100 10/12/19 08:25 89 131/48 10/12/19 08:00 100.4 88 17 124/59 (80) 91 10/12/19 08:00 Mechanical Ventilator 10/12/19 08:00 89 10/12/19 08:00 40 10/12/19 07:13 89 19 40 10/12/19 07:00 89 21 131/48 (75) 94 10/12/19 06:45 85 19 10/12/19 06:00 99.5 90 23 124/60 (81) 99 10/12/19 05:28 89 20 40 10/12/19 05:00 98.6 90 23 112/56 (74) 99 10/12/19 04:00 98.6 90 23 112/56 (74) 99 10/12/19 04:00 40 10/12/19 04:00 Mechanical Ventilator 10/12/19 04:00 93 10/12/19 03:00 93 21 122/56 (78) 100 10/12/19 02:00 88 17 95/56 (69) 100 10/12/19 01:26 87 20 40 10/12/19 01:00 91 24 97/58 (71) 100 10/12/19 00:00 Mechanical Ventilator 10/12/19 00:00 40 10/12/19 00:00 90 10/12/19 00:00 98.5 86 23 91/50 (64) 100 10/11/19 23:07 89 22 40 10/11/19 23:00 87 25 104/51 (68) 100 10/11/19 22:00 88 20 110/51 (70) 100 10/11/19 21:24 86 115/56 10/11/19 21:07 91 22 40 10/11/19 21:00 99.0 89 22 115/58 (77) 100 10/11/19 20:30 88 17 110/60 (77) 100 10/11/19 20:00 40 10/11/19 20:00 88 17 115/60 (78) 100 10/11/19 20:00 85 10/11/19 20:00 Mechanical Ventilator 10/11/19 19:29 88 24 40 10/11/19 19:00 99.1 87 19 117/51 (73) 100 10/11/19 18:00 89 17 119/62 (81) 100 10/11/19 17:00 88 17 124/51 (75) 100 10/11/19 16:58 94 20 40 10/11/19 16:00 98.5 86 19 127/63 (84) 100 10/11/19 16:00 87 10/11/19 16:00 40 10/11/19 16:00 Mechanical Ventilator 10/11/19 15:00 20 122/68 (86) 100 10/11/19 14:57 91 17 40 10/11/19 14:03 85 18 112/65 (81) 100 10/11/19 13:16 93 19 40 10/11/19 13:02 84 19 134/73 (93) 100 Height (Feet): 5 Height (Inches): 11.00 Weight (Pounds): 145 Objective Gen: NAD. well nourished HEENT: ETT. oral secretions Resp: coarse. equal chest rise. regular rate and rhythm. Abd: Soft. no TTP. nondistended. G tube site c/d/i. Neuro: opens eyes to voice and follows simple commands Laboratory Tests Test 10/12/19 04:47 White Blood Count 11.9 K/UL (4.8-10.8) H Red Blood Count 2.98 M/UL (4.70-6.10) L Hemoglobin 7.8 G/DL (14.2-18.0) L Hematocrit 24.0 % (42.0-52.0) L Mean Corpuscular Volume 80 FL (80-99) Mean Corpuscular Hemoglobin 26.2 PG (27.0-31.0) L Mean Corpuscular Hemoglobin Concent 32.6 G/DL (32.0-36.0) Red Cell Distribution Width 16.6 % (11.6-14.8) H Platelet Count 420 K/UL (150-450) Mean Platelet Volume 5.1 FL (6.5-10.1) L Neutrophils (%) (Auto) % (45.0-75.0) Lymphocytes (%) (Auto) % (20.0-45.0) Monocytes (%) (Auto) % (1.0-10.0) Eosinophils (%) (Auto) % (0.0-3.0) Basophils (%) (Auto) % (0.0-2.0) Differential Total Cells Counted 100 Neutrophils % (Manual) 72 % (45-75) Lymphocytes % (Manual) 13 % (20-45) L Monocytes % (Manual) 10 % (1-10) Eosinophils % (Manual) 5 % (0-3) H Basophils % (Manual) 0 % (0-2) Band Neutrophils 0 % (0-8) Platelet Estimate Adequate Platelet Morphology Normal Hypochromasia 1+ Anisocytosis 1+ Sodium Level 136 MMOL/L (136-145) Potassium Level 5.1 MMOL/L (3.5-5.1) Chloride Level 103 MMOL/L (98-107) Carbon Dioxide Level 28 MMOL/L (21-32) Anion Gap 5 mmol/L (5-15) Blood Urea Nitrogen 31 mg/dL (7-18) H Creatinine 1.0 MG/DL (0.55-1.30) Estimat Glomerular Filtration Rate > 60 mL/min (>60) Glucose Level 135 MG/DL (74-106) H Calcium Level 8.9 MG/DL (8.5-10.1) Current Medications Medications (Trade) Dose Ordered Sig/Kike Route PRN Reason Start Time Stop Time Status Last Admin Dose Admin Amlodipine Besylate (Norvasc) 5 mg BID@0900,2100 NG 09/24/19 21:00 10/22/19 08:59 10/12/19 08:25 Docusate Sodium (Colace) 100 mg TID GT 10/05/19 13:00 11/03/19 08:59 10/12/19 12:29 Heparin Sodium (Porcine) (Heparin 5000 units/ml) 5,000 units EVERY 12 HOURS SUBQ 09/24/19 09:00 10/22/19 08:59 10/12/19 08:26 Lansoprazole (Prevacid) 30 mg DAILY GT 10/04/19 09:00 11/03/19 08:59 10/12/19 08:25 Meropenem 1 gm/ Sodium Chloride 55 ml @ 110 mls/hr Q8HR IVPB 10/07/19 14:00 10/13/19 23:59 10/12/19 05:29 Quetiapine Fumarate (SEROqueL) 25 mg Q8H PRN NG Agitation 09/24/19 02:35 10/30/19 02:34 10/08/19 20:45 Sennosides (Senokot) 8.6 mg DAILY PRN ORAL Constipation 10/06/19 10:15 11/05/19 10:14 10/07/19 21:56 Danielle Roach M.D. October 12, 2019 12:38
[2019-10-13] VITALS (26 sets, daily range): BP systolic 97–124; BP diastolic 40–60
[2019-10-13] MEDS: Meropenem 1 GM in NS 55 ML IVPB SCH ×3 (05:48→21:33)
[2019-10-13 05:54] LABS: HEMATOCRIT 23.8 % (42.0-52.0); HEMOGLOBIN 7.8 G/DL (14.2-18.0); MEAN CORPUSCULAR VOLUME 80 FL (80-99); PLATELET COUNT 405 K/UL (150-450); RED BLOOD COUNT 2.97 M/UL (4.70-6.10); RED CELL DISTRIBUTION WIDTH 16.4 % (11.6-14.8); WHITE BLOOD COUNT 12.2 K/UL (4.8-10.8)
[2019-10-13 06:34] LABS: ALANINE AMINOTRANSFERASE 37 U/L (12-78); ALBUMIN 1.3 G/DL (3.4-5.0); ALBUMIN/GLOBULIN RATIO 0.2 (1.0-2.7); ALKALINE PHOSPHATASE 265 U/L (46-116); ANION GAP 8 mmol/L (5-15); ASPARTATE AMINO TRANSFERASE 70 U/L (15-37); BILIRUBIN,TOTAL 0.6 MG/DL (0.2-1.0); BLOOD UREA NITROGEN 32 mg/dL (7-18); CALCIUM 8.8 MG/DL (8.5-10.1); CARBON DIOXIDE 27 MMOL/L (21-32); CHLORIDE 102 MMOL/L (98-107); PHOSPHORUS 3.5 MG/DL (2.5-4.9); SODIUM 137 MMOL/L (136-145)
[2019-10-13] MEDS: Docusate 100mg/10ml Liq GT SCH ×3 (08:00→17:05)
[2019-10-13] MEDS: Heparin 5000 units/ml inj SUBQ SCH ×2 (08:01→21:00)
--- NOTE | 2019-10-13 09:14 | Nephrology Progress Note ---
Assessment/Plan Problem List: (1) RAMAN (acute kidney injury) Assessment: Serum creatinine normalized with hydration (2) Dehydration (3) Suspected COVID-19 virus infection (4) Anemia (5) Sepsis (6) Diabetes mellitus (7) Hypothyroidism Assessment - Acute renal failure - Severe anemia - Sepsis, pneumonia, acute respiratory failure, suspected: Viewed 19 virus infection - Diabetes mellitus - Hypothyroidism - Feeding by G-tube - Squamous cell esophageal cancer - History of CVA (cerebrovascular accident) Plan October 7: Remains stable from renal standpoint to view Remains intubated Continue per consultants Not much to add from renal standpoint. October 6: Remains stable from renal standpoint of view Remains intubated Data reviewed October 5: Dose unchanged from renal standpoint to view Remains intubated October 4: Stable from renal standpoint of view Hemoglobin higher today October 08 Discussed with RN Remains intubated on ventilator Hemoglobin is drifting down Will reorder iron panel Remains stable from renal standpoint of view Remains full code October 2: Discussed with RN. Patient remains intubated. Family declined comfort care. Weaning trial is being attempted Main stable from renal standpoint of view We will order labs for tomorrow. Previously Patient was coded early September 23 morning and back in ICU intubated Serum creatinine miguel to 1.5, now back to normal Stable from renal standpoint of view at this point He is status remains full code Tested negative for COVID-19 Previously: Pneumonia SARS-CoV neg x2 MRSA screen pos sp cx: PSA and proteus Changes Seroquel to "as needed" due to bradycardia Discontinue IV fluid Monitor renal parameters, serum creatinine Adjust electrolytes with supplements Increase Synthroid dose Avoid nephrotoxic's as possible Ventilator management Urine studies Per orders Subjective ROS Limited/Unobtainable: Yes Objective Objective Last 24 Hour Vital Signs Date Time Temp Pulse Resp B/P (MAP) Pulse Ox O2 Delivery O2 Flow Rate FiO2 10/13/19 08:59 83 115/61 10/13/19 08:35 81 26 40 10/13/19 08:32 100 10/13/19 08:00 100.0 81 15 116/51 (72) 94 10/13/19 08:00 40 10/13/19 07:20 78 13 40 10/13/19 07:00 79 15 100 10/13/19 06:30 85 19 10/13/19 06:00 79 15 100 10/13/19 06:00 79 15 110/50 (70) 100 10/13/19 05:15 76 18 40 10/13/19 05:00 82 16 116/46 (69) 100 10/13/19 04:00 40 10/13/19 04:00 99.5 80 16 105/50 (68) 88 99 10/13/19 04:00 82 10/13/19 04:00 Mechanical Ventilator 10/13/19 03:30 75 19 40 10/13/19 03:00 80 16 105/50 (68) 88 10/13/19 02:00 80 16 105/50 (68) 88 10/13/19 01:30 79 18 110/60 (77) 94 10/13/19 01:07 83 16 40 10/13/19 01:00 80 16 108/52 (70) 98 10/13/19 00:30 79 16 124/60 (81) 94 10/13/19 00:00 81 14 114/52 (72) 98 10/13/19 00:00 80 10/13/19 00:00 40 10/13/19 00:00 Mechanical Ventilator 10/13/19 00:00 99.0 81 14 114/52 (72) 98 10/12/19 23:30 81 15 40 10/12/19 23:00 81 17 108/48 (68) 100 10/12/19 22:00 82 15 110/44 (66) 97 10/12/19 21:30 84 17 40 10/12/19 21:00 82 18 116/57 (76) 93 10/12/19 20:38 81 113/53 10/12/19 20:00 84 10/12/19 20:00 40 10/12/19 20:00 99.8 81 16 113/59 (77) 89 10/12/19 20:00 Mechanical Ventilator 10/12/19 19:30 85 16 40 10/12/19 19:00 82 17 124/50 (74) 79 10/12/19 18:00 99.0 81 17 108/52 (70) 10/12/19 17:30 86 26 40 10/12/19 17:00 84 13 108/42 (64) 100 10/12/19 16:00 Mechanical Ventilator 10/12/19 16:00 80 10/12/19 16:00 40 10/12/19 16:00 98.9 82 15 108/56 (73) 100 10/12/19 15:15 83 17 40 10/12/19 15:00 80 15 99/48 (65) 100 10/12/19 14:00 81 16 111/50 (70) 100 10/12/19 14:00 81 13 111/50 (70) 100 10/12/19 13:14 81 19 40 10/12/19 13:00 83 17 122/51 (74) 98 10/12/19 12:00 Mechanical Ventilator 10/12/19 12:00 99.9 83 17 114/64 (81) 100 10/12/19 12:00 83 10/12/19 12:00 40 10/12/19 11:22 83 18 40 10/12/19 11:00 84 17 116/51 (72) 100 10/12/19 10:00 89 21 125/62 (83) 100 10/12/19 09:47 86 21 40 10/12/19 09:45 100 Intake and Output 10/12/19 10/13/19 19:00 07:00 Intake Total 925 ml 875 ml Output Total 525 ml 770 ml Balance 400 ml 105 ml Intake Free Water 100 ml IV Total 55 ml 55 ml Tube Feeding 720 ml 720 ml Other 150 ml Output Urine Total 525 ml 770 ml Laboratory Tests 10/13/19 04:35: White Blood Count 12.2H, Red Blood Count 2.97L, Hemoglobin 7.8L, Hematocrit 23.8L, Mean Corpuscular Volume 80, Mean Corpuscular Hemoglobin 26.2L, Mean Corpuscular Hemoglobin Concent 32.7, Red Cell Distribution Width 16.4H, Platelet Count 405, Mean Platelet Volume 5.1L, Neutrophils (%) (Auto) , Lymphocytes (%) (Auto) , Monocytes (%) (Auto) , Eosinophils (%) (Auto) , Basophils (%) (Auto) , Differential Total Cells Counted 100, Neutrophils % ( Manual) 72, Lymphocytes % (Manual) 16L, Monocytes % (Manual) 8, Eosinophils % ( Manual) 4H, Basophils % (Manual) 0, Band Neutrophils 0, Platelet Estimate Adequate, Platelet Morphology Normal, Hypochromasia 3+, Anisocytosis 1+, Erythrocyte Sedimentation Rate 131H, Sodium Level 137, Potassium Level 5.0, Chloride Level 102, Carbon Dioxide Level 27, Anion Gap 8, Blood Urea Nitrogen 32H, Creatinine 1.0, Estimat Glomerular Filtration Rate > 60, Glucose Level 132H , Calcium Level 8.8, Phosphorus Level 3.5, Magnesium Level 2.4, Total Bilirubin 0.6, Aspartate Amino Transf (AST/SGOT) 70H, Alanine Aminotransferase (ALT/SGPT) 37, Alkaline Phosphatase 265H, C-Reactive Protein, Quantitative 33.9H, Pro-B- Type Natriuretic Peptide 250H, Total Protein 7.0, Albumin 1.3L, Globulin 5.7, Albumin/Globulin Ratio 0.2L Height (Feet): 5 Height (Inches): 11.00 Weight (Pounds): 140 General Appearance: no apparent distress EENT: other - Remains intubated on ventilator Cardiovascular: tachycardia - Rate in 80s Respiratory/Chest: decreased breath sounds Objective no change Clovis Benites MD October 13, 2019 09:14
--- NOTE | 2019-10-13 10:54 | Pulmonolgy Critical Care Note ---
Critical Care - Asmt/Plan Problems: (1) Acute respiratory failure (2) Pleural effusion Assessment & Plan: s/p thoracentesis times 2, increasing again (3) Nosocomial pneumonia (4) Sepsis (5) Squamous cell esophageal cancer (6) Diabetes mellitus (7) Severe malnutrition (8) Alzheimer's dementia (9) History of CVA (cerebrovascular accident) (10) Feeding by G-tube Respiratory: monitor respiratory rate, adjust FIO2, CXR Cardiac: continue to monitor HR/BP Renal: F/U I&O, keep IV fluid Infectious Disease: check cultures Endocrine: monitor blood sugar Hematologic: monitor H/H, transfuse if hgb<8.5 Neurologic: PRN Ativan, keep patient comfortable Affect: PRN ativan Disposition: keep in ICU Notes Reviewed: bombsight specialist, neuro - Dr. Ricardo called Critical Care - Objective Last 24 Hour Vital Signs Date Time Temp Pulse Resp B/P (MAP) Pulse Ox O2 Delivery O2 Flow Rate FiO2 10/13/19 10:00 84 18 104/47 (66) 100 10/13/19 09:00 82 28 114/40 (64) 100 10/13/19 08:59 83 115/61 10/13/19 08:35 81 26 40 10/13/19 08:32 100 10/13/19 08:00 100.0 81 15 116/51 (72) 94 10/13/19 08:00 82 10/13/19 08:00 40 10/13/19 08:00 Mechanical Ventilator 10/13/19 07:20 78 13 40 10/13/19 07:00 79 15 100 10/13/19 06:30 85 19 10/13/19 06:00 79 15 100 10/13/19 06:00 79 15 110/50 (70) 100 10/13/19 05:15 76 18 40 10/13/19 05:00 82 16 116/46 (69) 100 10/13/19 04:00 40 10/13/19 04:00 99.5 80 16 105/50 (68) 88 99 10/13/19 04:00 82 10/13/19 04:00 Mechanical Ventilator 10/13/19 03:30 75 19 40 10/13/19 03:00 80 16 105/50 (68) 88 10/13/19 02:00 80 16 105/50 (68) 88 10/13/19 01:30 79 18 110/60 (77) 94 10/13/19 01:07 83 16 40 10/13/19 01:00 80 16 108/52 (70) 98 10/13/19 00:30 79 16 124/60 (81) 94 10/13/19 00:00 81 14 114/52 (72) 98 10/13/19 00:00 80 10/13/19 00:00 40 10/13/19 00:00 Mechanical Ventilator 10/13/19 00:00 99.0 81 14 114/52 (72) 98 10/12/19 23:30 81 15 40 10/12/19 23:00 81 17 108/48 (68) 100 10/12/19 22:00 82 15 110/44 (66) 97 10/12/19 21:30 84 17 40 10/12/19 21:00 82 18 116/57 (76) 93 10/12/19 20:38 81 113/53 10/12/19 20:00 84 10/12/19 20:00 40 10/12/19 20:00 99.8 81 16 113/59 (77) 89 10/12/19 20:00 Mechanical Ventilator 10/12/19 19:30 85 16 40 10/12/19 19:00 82 17 124/50 (74) 79 10/12/19 18:00 99.0 81 17 108/52 (70) 10/12/19 17:30 86 26 40 10/12/19 17:00 84 13 108/42 (64) 100 10/12/19 16:00 Mechanical Ventilator 10/12/19 16:00 80 10/12/19 16:00 40 10/12/19 16:00 98.9 82 15 108/56 (73) 100 10/12/19 15:15 83 17 40 10/12/19 15:00 80 15 99/48 (65) 100 10/12/19 14:00 81 16 111/50 (70) 100 10/12/19 14:00 81 13 111/50 (70) 100 10/12/19 13:14 81 19 40 10/12/19 13:00 83 17 122/51 (74) 98 10/12/19 12:00 Mechanical Ventilator 10/12/19 12:00 99.9 83 17 114/64 (81) 100 10/12/19 12:00 83 10/12/19 12:00 40 10/12/19 11:22 83 18 40 10/12/19 11:00 84 17 116/51 (72) 100 Status: somnolent Condition: critical HEENT: atraumatic, normocephalic Neck: full ROM Heart: HR/BP stable Abdomen: soft Extremities: no C/C/E Critical Care - Subjective ROS Limited/Unobtainable: Yes FI02: 40 Vent Support Breath Rate: 12 Vent Support Mode: CPAP Vent Tidal Volume: 550 Sputum Amount: Small PEEP: 5.0 PIP: 18 Tube Feeding Amount: 60 I&O: Intake and Output 10/12/19 10/13/19 19:00 07:00 Intake Total 925 ml 875 ml Output Total 525 ml 770 ml Balance 400 ml 105 ml Intake Free Water 100 ml IV Total 55 ml 55 ml Tube Feeding 720 ml 720 ml Other 150 ml Output Urine Total 525 ml 770 ml ET-Tube: 7.5 ET Position: 26 Labs: Laboratory Tests Test 10/13/19 04:35 White Blood Count 12.2 K/UL (4.8-10.8) H Red Blood Count 2.97 M/UL (4.70-6.10) L Hemoglobin 7.8 G/DL (14.2-18.0) L Hematocrit 23.8 % (42.0-52.0) L Mean Corpuscular Volume 80 FL (80-99) Mean Corpuscular Hemoglobin 26.2 PG (27.0-31.0) L Mean Corpuscular Hemoglobin Concent 32.7 G/DL (32.0-36.0) Red Cell Distribution Width 16.4 % (11.6-14.8) H Platelet Count 405 K/UL (150-450) Mean Platelet Volume 5.1 FL (6.5-10.1) L Neutrophils (%) (Auto) % (45.0-75.0) Lymphocytes (%) (Auto) % (20.0-45.0) Monocytes (%) (Auto) % (1.0-10.0) Eosinophils (%) (Auto) % (0.0-3.0) Basophils (%) (Auto) % (0.0-2.0) Differential Total Cells Counted 100 Neutrophils % (Manual) 72 % (45-75) Lymphocytes % (Manual) 16 % (20-45) L Monocytes % (Manual) 8 % (1-10) Eosinophils % (Manual) 4 % (0-3) H Basophils % (Manual) 0 % (0-2) Band Neutrophils 0 % (0-8) Platelet Estimate Adequate Platelet Morphology Normal Hypochromasia 3+ Anisocytosis 1+ Erythrocyte Sedimentation Rate 131 MM/HR (0-20) H Sodium Level 137 MMOL/L (136-145) Potassium Level 5.0 MMOL/L (3.5-5.1) Chloride Level 102 MMOL/L (98-107) Carbon Dioxide Level 27 MMOL/L (21-32) Anion Gap 8 mmol/L (5-15) Blood Urea Nitrogen 32 mg/dL (7-18) H Creatinine 1.0 MG/DL (0.55-1.30) Estimat Glomerular Filtration Rate > 60 mL/min (>60) Glucose Level 132 MG/DL (74-106) H Calcium Level 8.8 MG/DL (8.5-10.1) Phosphorus Level 3.5 MG/DL (2.5-4.9) Magnesium Level 2.4 MG/DL (1.8-2.4) Total Bilirubin 0.6 MG/DL (0.2-1.0) Aspartate Amino Transf (AST/SGOT) 70 U/L (15-37) H Alanine Aminotransferase (ALT/SGPT) 37 U/L (12-78) Alkaline Phosphatase 265 U/L (46-116) H C-Reactive Protein, Quantitative 33.9 mg/dL (0.00-0.90) H Pro-B-Type Natriuretic Peptide 250 pg/mL (0-125) H Total Protein 7.0 G/DL (6.4-8.2) Albumin 1.3 G/DL (3.4-5.0) L Globulin 5.7 g/dL Albumin/Globulin Ratio 0.2 (1.0-2.7) L Vania Hui MD October 13, 2019 10:54
--- NOTE | 2019-10-13 11:24 | General Progress Note ---
Assessment/Plan Status: unchanged Assessment/Plan: 1. Esophageal cancer. 2. Dysphagia. 3. Diabetes type 2. 4. Dementia. 5. CVA. 6. Hypothyroidism. 7. Seizure disorder. 8. Iron deficiency anemia. 9. Respiratory failure. 10. Dysphagia with G-tube stable H&H GT has been changed and working well GT flushes dietitian in put appreciated>>> TF Javity subhash abx per id pulm care bowel regimen recent labs and notes reviewed D/W the nurse will fu Subjective ROS Limited/Unobtainable: No Allergies: Coded Allergies: PENICILLINS (Verified Allergy, Unknown, 10/27/18) tolretas cephalosporins Objective Last 24 Hour Vital Signs Date Time Temp Pulse Resp B/P (MAP) Pulse Ox O2 Delivery O2 Flow Rate FiO2 10/13/19 11:00 80 15 97/41 (59) 100 10/13/19 10:46 81 14 40 10/13/19 10:00 84 18 104/47 (66) 100 10/13/19 09:00 82 28 114/40 (64) 100 10/13/19 08:59 83 115/61 10/13/19 08:35 81 26 40 10/13/19 08:32 100 10/13/19 08:00 100.0 81 15 116/51 (72) 94 10/13/19 08:00 82 10/13/19 08:00 40 10/13/19 08:00 Mechanical Ventilator 10/13/19 07:20 78 13 40 10/13/19 07:00 79 15 100 10/13/19 06:30 85 19 10/13/19 06:00 79 15 100 10/13/19 06:00 79 15 110/50 (70) 100 10/13/19 05:15 76 18 40 10/13/19 05:00 82 16 116/46 (69) 100 10/13/19 04:00 40 10/13/19 04:00 99.5 80 16 105/50 (68) 88 99 10/13/19 04:00 82 10/13/19 04:00 Mechanical Ventilator 10/13/19 03:30 75 19 40 10/13/19 03:00 80 16 105/50 (68) 88 10/13/19 02:00 80 16 105/50 (68) 88 10/13/19 01:30 79 18 110/60 (77) 94 10/13/19 01:07 83 16 40 10/13/19 01:00 80 16 108/52 (70) 98 10/13/19 00:30 79 16 124/60 (81) 94 10/13/19 00:00 81 14 114/52 (72) 98 10/13/19 00:00 80 10/13/19 00:00 40 10/13/19 00:00 Mechanical Ventilator 10/13/19 00:00 99.0 81 14 114/52 (72) 98 10/12/19 23:30 81 15 40 10/12/19 23:00 81 17 108/48 (68) 100 10/12/19 22:00 82 15 110/44 (66) 97 10/12/19 21:30 84 17 40 10/12/19 21:00 82 18 116/57 (76) 93 10/12/19 20:38 81 113/53 10/12/19 20:00 84 10/12/19 20:00 40 10/12/19 20:00 99.8 81 16 113/59 (77) 89 10/12/19 20:00 Mechanical Ventilator 10/12/19 19:30 85 16 40 10/12/19 19:00 82 17 124/50 (74) 79 10/12/19 18:00 99.0 81 17 108/52 (70) 10/12/19 17:30 86 26 40 10/12/19 17:00 84 13 108/42 (64) 100 10/12/19 16:00 Mechanical Ventilator 10/12/19 16:00 80 10/12/19 16:00 40 10/12/19 16:00 98.9 82 15 108/56 (73) 100 10/12/19 15:15 83 17 40 10/12/19 15:00 80 15 99/48 (65) 100 10/12/19 14:00 81 16 111/50 (70) 100 10/12/19 14:00 81 13 111/50 (70) 100 10/12/19 13:14 81 19 40 10/12/19 13:00 83 17 122/51 (74) 98 10/12/19 12:00 Mechanical Ventilator 10/12/19 12:00 99.9 83 17 114/64 (81) 100 10/12/19 12:00 83 10/12/19 12:00 40 Intake and Output 10/12/19 10/13/19 19:00 07:00 Intake Total 925 ml 875 ml Output Total 525 ml 770 ml Balance 400 ml 105 ml Intake Free Water 100 ml IV Total 55 ml 55 ml Tube Feeding 720 ml 720 ml Other 150 ml Output Urine Total 525 ml 770 ml Laboratory Tests 10/13/19 04:35: White Blood Count 12.2H, Red Blood Count 2.97L, Hemoglobin 7.8L, Hematocrit 23.8L, Mean Corpuscular Volume 80, Mean Corpuscular Hemoglobin 26.2L, Mean Corpuscular Hemoglobin Concent 32.7, Red Cell Distribution Width 16.4H, Platelet Count 405, Mean Platelet Volume 5.1L, Neutrophils (%) (Auto) , Lymphocytes (%) (Auto) , Monocytes (%) (Auto) , Eosinophils (%) (Auto) , Basophils (%) (Auto) , Differential Total Cells Counted 100, Neutrophils % ( Manual) 72, Lymphocytes % (Manual) 16L, Monocytes % (Manual) 8, Eosinophils % ( Manual) 4H, Basophils % (Manual) 0, Band Neutrophils 0, Platelet Estimate Adequate, Platelet Morphology Normal, Hypochromasia 3+, Anisocytosis 1+, Erythrocyte Sedimentation Rate 131H, Sodium Level 137, Potassium Level 5.0, Chloride Level 102, Carbon Dioxide Level 27, Anion Gap 8, Blood Urea Nitrogen 32H, Creatinine 1.0, Estimat Glomerular Filtration Rate > 60, Glucose Level 132H , Calcium Level 8.8, Phosphorus Level 3.5, Magnesium Level 2.4, Total Bilirubin 0.6, Aspartate Amino Transf (AST/SGOT) 70H, Alanine Aminotransferase (ALT/SGPT) 37, Alkaline Phosphatase 265H, C-Reactive Protein, Quantitative 33.9H, Pro-B- Type Natriuretic Peptide 250H, Total Protein 7.0, Albumin 1.3L, Globulin 5.7, Albumin/Globulin Ratio 0.2L Height (Feet): 5 Height (Inches): 11.00 Weight (Pounds): 140 General Appearance: no apparent distress EENT: normal ENT inspection Neck: supple Cardiovascular: normal rate Respiratory/Chest: decreased breath sounds Abdomen: normal bowel sounds, non tender, soft Extremities: non-tender Darrick Rosario MD October 13, 2019 11:24
[2019-10-13] MEDS ORDERED: Miralax 17gm pkt ORAL PRN (11:30)
--- NOTE | 2019-10-13 11:59 | Infectious Diseases Prog Note ---
Assessment/Plan Assessment/Plan 09/23 SP asystole cardiac arrest VDRF 09/23 Fever; SP Mild leukocytosis, improving Probable UTI -10/01 Bcx Neg u/a wbc tnct; ucx 30-40k C.albicans PNA VDRF, sp intubation 09/08, sp extubation 09/18, re-intubated 09/23 SARS-CoV neg x3 (09/06, 09/08, 09/30) MRSA screen pos 10/09 CXR: Markedly increased and now large right pleural effusion, over 4 days. There is probably some atelectasis on the right as well in addition to the passive atelectasis from pleural fluid. Improved aeration of the left lung 10/05 CXR: Focal patchy infiltrate in the left suprahilar region, not evident previously. Slightly increased small right pleural effusion. Obscured left hemidiaphragm, likely retrocardiac consolidation and/or left pleural fluid , unchanged Stable cardiomegaly 10/02 CXR: Increasing pleural fluid and possibly parenchymal consolidation at the right lung base. Unchanged left basilar pleural and parenchymal disease. sp cx PSA (hensley S), P. stuarti (R. cefepime, ancef, levaquin; S zosyn, ertapenem) 09/30 CXR: Patchy opacities throughout the right lung left mid and lower lung, similar to slightly increased. Possible small bilateral pleural effusions. 09/29 CXR: Increasing right mid and lower lung opacity, may indicate increasing pleural fluid, increasing infiltrate, or both. 09/28 CXR: Developing hazy right basilar opacity. This could represent reaching layering pleural fluid. This could also represent reexpansion pulmonary edema given recent high-volume thoracentesis, or could represent developing ammonia or pulmonary edema. Hazy left basilar opacity, unchanged, may reflect parenchymal infiltrate versus pleural fluid versus both 09/25 CXR: Large right pleural effusion is again demonstrated. Small left pleural effusion is again demonstrated. Left lung is otherwise clear. sp cx PsA (R zozyn, S levo, gentamycin) 09/24 CXR: Moderate size right pleural effusion with right upper and lower lobe atelectasis/consolidation, as well as mild pulmonary edema.. 09/17 CXR: Similar bilateral interstitial prominence, greater on the right.Stable right perihilar, mid and lower lung opacities. Similar left lung base opacity. Small left pleural effusion is stable. Loculated right pleural effusion is stable. No pneumothorax. CXR: Right pleural effusion, also demonstrated on prior 08/09/2019 exam, slightly increased. Hazy right lung parenchymal opacity probably represents a superimposed pleural fluid but infiltrate also possible. 09/06 sp cx: PSA (hensley S) and proteus (hensley S) R pleural effusion, exudative -09/18 SP thorancetesis; removal of 2050 mL fluid; Fluid prot 5 (serum prot 7.2 ); cx Neg QTc 419 RAMAN, improving DM HTN CVA Dementia Nonverbal G tube Plan: Continue Meropenem #/10/06 SP Levaquin #7 10/05 SP IV Vancomycin #6 09/19 SPcefepime # 09/09 SP vanc #4 ( Cr increased) ICU care monitor temp and CBC COVID neg x3 DW RN Thank you for this consult. [facility] will continue to follow the patient with you. Subjective Allergies: Coded Allergies: PENICILLINS (Verified Allergy, Unknown, 10/27/18) tolretas cephalosporins Subjective Tm 100.4 Fio2 40% mild leukocytosis Objective Vital Signs Last 24 Hour Vital Signs Date Time Temp Pulse Resp B/P (MAP) Pulse Ox O2 Delivery O2 Flow Rate FiO2 10/13/19 11:00 80 15 97/41 (59) 100 10/13/19 10:46 81 14 40 10/13/19 10:00 84 18 104/47 (66) 100 10/13/19 09:00 82 28 114/40 (64) 100 10/13/19 08:59 83 115/61 10/13/19 08:35 81 26 40 10/13/19 08:32 100 10/13/19 08:00 100.0 81 15 116/51 (72) 94 10/13/19 08:00 82 10/13/19 08:00 40 10/13/19 08:00 Mechanical Ventilator 10/13/19 07:20 78 13 40 10/13/19 07:00 79 15 100 10/13/19 06:30 85 19 10/13/19 06:00 79 15 100 10/13/19 06:00 79 15 110/50 (70) 100 10/13/19 05:15 76 18 40 10/13/19 05:00 82 16 116/46 (69) 100 10/13/19 04:00 40 10/13/19 04:00 99.5 80 16 105/50 (68) 88 99 10/13/19 04:00 82 10/13/19 04:00 Mechanical Ventilator 10/13/19 03:30 75 19 40 10/13/19 03:00 80 16 105/50 (68) 88 10/13/19 02:00 80 16 105/50 (68) 88 10/13/19 01:30 79 18 110/60 (77) 94 10/13/19 01:07 83 16 40 10/13/19 01:00 80 16 108/52 (70) 98 10/13/19 00:30 79 16 124/60 (81) 94 10/13/19 00:00 81 14 114/52 (72) 98 10/13/19 00:00 80 10/13/19 00:00 40 10/13/19 00:00 Mechanical Ventilator 10/13/19 00:00 99.0 81 14 114/52 (72) 98 10/12/19 23:30 81 15 40 10/12/19 23:00 81 17 108/48 (68) 100 10/12/19 22:00 82 15 110/44 (66) 97 10/12/19 21:30 84 17 40 10/12/19 21:00 82 18 116/57 (76) 93 10/12/19 20:38 81 113/53 10/12/19 20:00 84 10/12/19 20:00 40 10/12/19 20:00 99.8 81 16 113/59 (77) 89 10/12/19 20:00 Mechanical Ventilator 10/12/19 19:30 85 16 40 10/12/19 19:00 82 17 124/50 (74) 79 10/12/19 18:00 99.0 81 17 108/52 (70) 10/12/19 17:30 86 26 40 10/12/19 17:00 84 13 108/42 (64) 100 10/12/19 16:00 Mechanical Ventilator 10/12/19 16:00 80 10/12/19 16:00 40 10/12/19 16:00 98.9 82 15 108/56 (73) 100 10/12/19 15:15 83 17 40 10/12/19 15:00 80 15 99/48 (65) 100 10/12/19 14:00 81 16 111/50 (70) 100 10/12/19 14:00 81 13 111/50 (70) 100 10/12/19 13:14 81 19 40 10/12/19 13:00 83 17 122/51 (74) 98 10/12/19 12:00 Mechanical Ventilator 10/12/19 12:00 99.9 83 17 114/64 (81) 100 10/12/19 12:00 83 10/12/19 12:00 40 Height (Feet): 5 Height (Inches): 11.00 Weight (Pounds): 140 Objective Gen: NAD. well nourished HEENT: ETT. oral secretions Resp: coarse. equal chest rise. regular rate and rhythm. Abd: Soft. no TTP. nondistended. G tube site c/d/i. Neuro: opens eyes to voice and follows simple commands Laboratory Tests Test 10/13/19 04:35 White Blood Count 12.2 K/UL (4.8-10.8) H Red Blood Count 2.97 M/UL (4.70-6.10) L Hemoglobin 7.8 G/DL (14.2-18.0) L Hematocrit 23.8 % (42.0-52.0) L Mean Corpuscular Volume 80 FL (80-99) Mean Corpuscular Hemoglobin 26.2 PG (27.0-31.0) L Mean Corpuscular Hemoglobin Concent 32.7 G/DL (32.0-36.0) Red Cell Distribution Width 16.4 % (11.6-14.8) H Platelet Count 405 K/UL (150-450) Mean Platelet Volume 5.1 FL (6.5-10.1) L Neutrophils (%) (Auto) % (45.0-75.0) Lymphocytes (%) (Auto) % (20.0-45.0) Monocytes (%) (Auto) % (1.0-10.0) Eosinophils (%) (Auto) % (0.0-3.0) Basophils (%) (Auto) % (0.0-2.0) Differential Total Cells Counted 100 Neutrophils % (Manual) 72 % (45-75) Lymphocytes % (Manual) 16 % (20-45) L Monocytes % (Manual) 8 % (1-10) Eosinophils % (Manual) 4 % (0-3) H Basophils % (Manual) 0 % (0-2) Band Neutrophils 0 % (0-8) Platelet Estimate Adequate Platelet Morphology Normal Hypochromasia 3+ Anisocytosis 1+ Erythrocyte Sedimentation Rate 131 MM/HR (0-20) H Sodium Level 137 MMOL/L (136-145) Potassium Level 5.0 MMOL/L (3.5-5.1) Chloride Level 102 MMOL/L (98-107) Carbon Dioxide Level 27 MMOL/L (21-32) Anion Gap 8 mmol/L (5-15) Blood Urea Nitrogen 32 mg/dL (7-18) H Creatinine 1.0 MG/DL (0.55-1.30) Estimat Glomerular Filtration Rate > 60 mL/min (>60) Glucose Level 132 MG/DL (74-106) H Calcium Level 8.8 MG/DL (8.5-10.1) Phosphorus Level 3.5 MG/DL (2.5-4.9) Magnesium Level 2.4 MG/DL (1.8-2.4) Total Bilirubin 0.6 MG/DL (0.2-1.0) Aspartate Amino Transf (AST/SGOT) 70 U/L (15-37) H Alanine Aminotransferase (ALT/SGPT) 37 U/L (12-78) Alkaline Phosphatase 265 U/L (46-116) H C-Reactive Protein, Quantitative 33.9 mg/dL (0.00-0.90) H Pro-B-Type Natriuretic Peptide 250 pg/mL (0-125) H Total Protein 7.0 G/DL (6.4-8.2) Albumin 1.3 G/DL (3.4-5.0) L Globulin 5.7 g/dL Albumin/Globulin Ratio 0.2 (1.0-2.7) L Current Medications Medications (Trade) Dose Ordered Sig/Kike Route PRN Reason Start Time Stop Time Status Last Admin Dose Admin Amlodipine Besylate (Norvasc) 5 mg BID@0900,2100 NG 09/24/19 21:00 10/22/19 08:59 10/12/19 20:38 Docusate Sodium (Colace) 100 mg TID GT 10/05/19 13:00 11/03/19 08:59 5/7/20 08:00 Heparin Sodium (Porcine) (Heparin 5000 units/ml) 5,000 units EVERY 12 HOURS SUBQ 09/24/19 09:00 10/22/19 08:59 10/13/19 08:01 Lansoprazole (Prevacid) 30 mg DAILY GT 10/04/19 09:00 11/03/19 08:59 10/13/19 08:01 Meropenem 1 gm/ Sodium Chloride 55 ml @ 110 mls/hr Q8HR IVPB 10/07/19 14:00 10/13/19 23:59 10/13/19 05:48 Polyethylene Glycol (Miralax) 17 gm DAILY PRN ORAL Constipation 10/13/19 11:30 11/12/19 11:29 Quetiapine Fumarate (SEROqueL) 25 mg Q8H PRN NG Agitation 09/24/19 02:35 10/30/19 02:34 10/08/19 20:45 Sennosides (Senokot) 8.6 mg DAILY PRN ORAL Constipation 10/06/19 10:15 11/05/19 10:14 10/07/19 21:56 Danielle Roach M.D. October 13, 2019 11:59
--- NOTE | 2019-10-13 16:27 | Internal Med Progress Note ---
Subjective Date of Service: October 13, 2019 Physician Name Xander Bah Attending Physician Lamont Hayes MD Current Medications Medications (Trade) Dose Ordered Sig/Kike Route PRN Reason Start Time Stop Time Status Last Admin Dose Admin Amlodipine Besylate (Norvasc) 5 mg BID@0900,2100 NG 09/24/19 21:00 10/22/19 08:59 10/12/19 20:38 Docusate Sodium (Colace) 100 mg TID GT 10/05/19 13:00 11/03/19 08:59 10/13/19 13:15 Heparin Sodium (Porcine) (Heparin 5000 units/ml) 5,000 units EVERY 12 HOURS SUBQ 09/24/19 09:00 10/22/19 08:59 10/13/19 08:01 Lansoprazole (Prevacid) 30 mg DAILY GT 10/04/19 09:00 11/03/19 08:59 10/13/19 08:01 Meropenem 1 gm/ Sodium Chloride 55 ml @ 110 mls/hr Q8HR IVPB 10/07/19 14:00 10/13/19 23:59 10/13/19 13:15 Polyethylene Glycol (Miralax) 17 gm DAILY PRN ORAL Constipation 10/13/19 11:30 11/12/19 11:29 Quetiapine Fumarate (SEROqueL) 25 mg Q8H PRN NG Agitation 09/24/19 02:35 10/30/19 02:34 10/08/19 20:45 Sennosides (Senokot) 8.6 mg DAILY PRN ORAL Constipation 10/06/19 10:15 11/05/19 10:14 10/07/19 21:56 Allergies: Coded Allergies: PENICILLINS (Verified Allergy, Unknown, 10/27/18) tolretas cephalosporins ROS Limited/Unobtainable: Yes Subjective 84 YO M admitted with cough and congestion. Cover for Int Med-Dr Hayes. Reintubated 09/24/19 after cardiopulmonary arrest. ICU Objective Last Vital Signs Date Time Temp Pulse Resp B/P (MAP) Pulse Ox O2 Delivery O2 Flow Rate FiO2 10/13/19 16:00 40 10/13/19 16:00 79 10/13/19 16:00 19 113/58 (76) 100 10/13/19 12:00 99.8 10/13/19 12:00 Mechanical Ventilator Laboratory Tests Test 10/13/19 04:35 White Blood Count 12.2 K/UL (4.8-10.8) H Red Blood Count 2.97 M/UL (4.70-6.10) L Hemoglobin 7.8 G/DL (14.2-18.0) L Hematocrit 23.8 % (42.0-52.0) L Mean Corpuscular Volume 80 FL (80-99) Mean Corpuscular Hemoglobin 26.2 PG (27.0-31.0) L Mean Corpuscular Hemoglobin Concent 32.7 G/DL (32.0-36.0) Red Cell Distribution Width 16.4 % (11.6-14.8) H Platelet Count 405 K/UL (150-450) Mean Platelet Volume 5.1 FL (6.5-10.1) L Neutrophils (%) (Auto) % (45.0-75.0) Lymphocytes (%) (Auto) % (20.0-45.0) Monocytes (%) (Auto) % (1.0-10.0) Eosinophils (%) (Auto) % (0.0-3.0) Basophils (%) (Auto) % (0.0-2.0) Differential Total Cells Counted 100 Neutrophils % (Manual) 72 % (45-75) Lymphocytes % (Manual) 16 % (20-45) L Monocytes % (Manual) 8 % (1-10) Eosinophils % (Manual) 4 % (0-3) H Basophils % (Manual) 0 % (0-2) Band Neutrophils 0 % (0-8) Platelet Estimate Adequate Platelet Morphology Normal Hypochromasia 3+ Anisocytosis 1+ Erythrocyte Sedimentation Rate 131 MM/HR (0-20) H Sodium Level 137 MMOL/L (136-145) Potassium Level 5.0 MMOL/L (3.5-5.1) Chloride Level 102 MMOL/L (98-107) Carbon Dioxide Level 27 MMOL/L (21-32) Anion Gap 8 mmol/L (5-15) Blood Urea Nitrogen 32 mg/dL (7-18) H Creatinine 1.0 MG/DL (0.55-1.30) Estimat Glomerular Filtration Rate > 60 mL/min (>60) Glucose Level 132 MG/DL (74-106) H Calcium Level 8.8 MG/DL (8.5-10.1) Phosphorus Level 3.5 MG/DL (2.5-4.9) Magnesium Level 2.4 MG/DL (1.8-2.4) Total Bilirubin 0.6 MG/DL (0.2-1.0) Aspartate Amino Transf (AST/SGOT) 70 U/L (15-37) H Alanine Aminotransferase (ALT/SGPT) 37 U/L (12-78) Alkaline Phosphatase 265 U/L (46-116) H C-Reactive Protein, Quantitative 33.9 mg/dL (0.00-0.90) H Pro-B-Type Natriuretic Peptide 250 pg/mL (0-125) H Total Protein 7.0 G/DL (6.4-8.2) Albumin 1.3 G/DL (3.4-5.0) L Globulin 5.7 g/dL Albumin/Globulin Ratio 0.2 (1.0-2.7) L Intake and Output 10/12/19 10/13/19 19:00 07:00 Intake Total 925 ml 875 ml Output Total 525 ml 770 ml Balance 400 ml 105 ml Intake Free Water 100 ml IV Total 55 ml 55 ml Tube Feeding 720 ml 720 ml Other 150 ml Output Urine Total 525 ml 770 ml Objective PHYSICAL EXAMINATION: GENERAL: The patient is a thin-appearing male, in no apparent distress. HEENT: Eyes, pupils are equal and responsive to light and accommodation. Extraocular movements are intact. NECK: Supple without lymphadenopathy. CHEST: Mech vent; Lungs are clear to auscultation bilaterally with decreased breath sounds on the right. There are no wheezes appreciated. ABDOMEN: Soft, nontender, and nondistended. Positive bowel sounds. No evidence of hepatosplenomegaly. Currently, no rebound or guarding noted. EXTREMITIES: Negative for clubbing, cyanosis, or edema. RECTAL/GENITAL: Not performed. NEUROLOGIC: Cranial nerves II through XII are grossly intact without focal deficits. Assessment/Plan Assessment/Plan ASSESSMENT: This is an 84-year-old male with: 1. 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 Urinary tract infection=jennifer 3. Right pleural effusion. 4. Esophageal mass. 5. Dysphagia. 6. Diabetes. 7. Alzheimer's dementia. 8. Cerebrovascular disease. 9. Hypothyroidism. 10. Seizure disorder. 11. Iron deficiency anemia. 13. Respiratory failure 14. S/P cardiopulmonary arrest 15. Anemia 16. Patient now DNR/DNI-see critical care note TREATMENT: 1. Right perihilar Pneumonia/pleural effusion. COVID 19 and Influenza negative. A Pulmonary consultation has been obtained with Dr. Vania Hui. S/P right thoracentesis 09/19/19. We will follow recommendation of Pulmonary. ID=Dr Roach ABX= S/P levofloxacin and vanco; continue Meropenem per ID 2. Urinary tract infection. . A urine culture =jennifer 3. Right pleural effusion. As above, a Pulmonary consultation has been obtained with Dr. Vania Hui. The patient may require thoracentesis during this hospitalization. 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 A Gastroenterology consultation has been obtained with Dr. Darrick Rosario. 5. Dysphagia. The patient is status post PEG placement on 08/08/2019 at [facility] by Dr. Darrick Rosario. 6. Diabetes type 2. A NovoLog sliding scale has been instituted. 7. Alzheimer's dementia. 8. Cerebrovascular disease, status post cerebrovascular accident. 9. Hypothyroidism. Continue levothyroxine as above. 10. Seizure disorder. 11. Iron deficiency anemia. 12. reintubated 09/24/19-see code blue note 13. S/P transfusion 2 units PRBC Xander Bah MD October 13, 2019 16:27
--- NOTE | 2019-10-13 18:31 | Surgery Progress Note ---
Surgery Progress Note Subjective Additional Comments code status changed dnr comfort care Objective Last 24 Hour Vital Signs Date Time Temp Pulse Resp B/P (MAP) Pulse Ox O2 Delivery O2 Flow Rate FiO2 10/13/19 18:00 81 14 115/49 (71) 100 10/13/19 17:19 78 13 40 10/13/19 17:00 78 15 107/59 (75) 100 10/13/19 16:00 40 10/13/19 16:00 79 10/13/19 16:00 Mechanical Ventilator 10/13/19 16:00 78 19 113/58 (76) 100 10/13/19 15:22 82 17 40 10/13/19 15:00 82 19 112/49 (70) 100 10/13/19 14:00 79 13 100/49 (66) 100 10/13/19 13:25 75 15 40 10/13/19 13:00 79 13 109/58 (75) 100 10/13/19 12:00 99.8 80 17 97/47 (64) 100 10/13/19 12:00 Mechanical Ventilator 10/13/19 12:00 87 10/13/19 12:00 40 10/13/19 11:00 80 15 97/41 (59) 100 10/13/19 10:46 81 14 40 10/13/19 10:00 84 18 104/47 (66) 100 10/13/19 09:00 82 28 114/40 (64) 100 10/13/19 08:59 83 115/61 10/13/19 08:35 81 26 40 10/13/19 08:32 100 10/13/19 08:00 100.0 81 15 116/51 (72) 94 10/13/19 08:00 82 10/13/19 08:00 40 10/13/19 08:00 Mechanical Ventilator 10/13/19 07:20 78 13 40 10/13/19 07:00 79 15 100 10/13/19 06:30 85 19 10/13/19 06:00 79 15 100 10/13/19 06:00 79 15 110/50 (70) 100 10/13/19 05:15 76 18 40 10/13/19 05:00 82 16 116/46 (69) 100 10/13/19 04:00 40 10/13/19 04:00 99.5 80 16 105/50 (68) 88 99 10/13/19 04:00 82 10/13/19 04:00 Mechanical Ventilator 10/13/19 03:30 75 19 40 10/13/19 03:00 80 16 105/50 (68) 88 10/13/19 02:00 80 16 105/50 (68) 88 10/13/19 01:30 79 18 110/60 (77) 94 10/13/19 01:07 83 16 40 10/13/19 01:00 80 16 108/52 (70) 98 10/13/19 00:30 79 16 124/60 (81) 94 10/13/19 00:00 81 14 114/52 (72) 98 10/13/19 00:00 80 10/13/19 00:00 40 10/13/19 00:00 Mechanical Ventilator 10/13/19 00:00 99.0 81 14 114/52 (72) 98 10/12/19 23:30 81 15 40 10/12/19 23:00 81 17 108/48 (68) 100 10/12/19 22:00 82 15 110/44 (66) 97 10/12/19 21:30 84 17 40 10/12/19 21:00 82 18 116/57 (76) 93 10/12/19 20:38 81 113/53 10/12/19 20:00 84 10/12/19 20:00 40 10/12/19 20:00 99.8 81 16 113/59 (77) 89 10/12/19 20:00 Mechanical Ventilator 10/12/19 19:30 85 16 40 10/12/19 19:00 82 17 124/50 (74) 79 I&O Intake and Output 10/12/19 10/13/19 19:00 07:00 Intake Total 925 ml 875 ml Output Total 525 ml 770 ml Balance 400 ml 105 ml Intake Free Water 100 ml IV Total 55 ml 55 ml Tube Feeding 720 ml 720 ml Other 150 ml Output Urine Total 525 ml 770 ml Cardiovascular: RSR Respiratory: decreased breath sounds Abdomen: soft, non-tender, present bowel sounds Extremities: no cyanosis Laboratory Tests Test 10/13/19 04:35 White Blood Count 12.2 K/UL (4.8-10.8) H Red Blood Count 2.97 M/UL (4.70-6.10) L Hemoglobin 7.8 G/DL (14.2-18.0) L Hematocrit 23.8 % (42.0-52.0) L Mean Corpuscular Volume 80 FL (80-99) Mean Corpuscular Hemoglobin 26.2 PG (27.0-31.0) L Mean Corpuscular Hemoglobin Concent 32.7 G/DL (32.0-36.0) Red Cell Distribution Width 16.4 % (11.6-14.8) H Platelet Count 405 K/UL (150-450) Mean Platelet Volume 5.1 FL (6.5-10.1) L Neutrophils (%) (Auto) % (45.0-75.0) Lymphocytes (%) (Auto) % (20.0-45.0) Monocytes (%) (Auto) % (1.0-10.0) Eosinophils (%) (Auto) % (0.0-3.0) Basophils (%) (Auto) % (0.0-2.0) Differential Total Cells Counted 100 Neutrophils % (Manual) 72 % (45-75) Lymphocytes % (Manual) 16 % (20-45) L Monocytes % (Manual) 8 % (1-10) Eosinophils % (Manual) 4 % (0-3) H Basophils % (Manual) 0 % (0-2) Band Neutrophils 0 % (0-8) Platelet Estimate Adequate Platelet Morphology Normal Hypochromasia 3+ Anisocytosis 1+ Erythrocyte Sedimentation Rate 131 MM/HR (0-20) H Sodium Level 137 MMOL/L (136-145) Potassium Level 5.0 MMOL/L (3.5-5.1) Chloride Level 102 MMOL/L (98-107) Carbon Dioxide Level 27 MMOL/L (21-32) Anion Gap 8 mmol/L (5-15) Blood Urea Nitrogen 32 mg/dL (7-18) H Creatinine 1.0 MG/DL (0.55-1.30) Estimat Glomerular Filtration Rate > 60 mL/min (>60) Glucose Level 132 MG/DL (74-106) H Calcium Level 8.8 MG/DL (8.5-10.1) Phosphorus Level 3.5 MG/DL (2.5-4.9) Magnesium Level 2.4 MG/DL (1.8-2.4) Total Bilirubin 0.6 MG/DL (0.2-1.0) Aspartate Amino Transf (AST/SGOT) 70 U/L (15-37) H Alanine Aminotransferase (ALT/SGPT) 37 U/L (12-78) Alkaline Phosphatase 265 U/L (46-116) H C-Reactive Protein, Quantitative 33.9 mg/dL (0.00-0.90) H Pro-B-Type Natriuretic Peptide 250 pg/mL (0-125) H Total Protein 7.0 G/DL (6.4-8.2) Albumin 1.3 G/DL (3.4-5.0) L Globulin 5.7 g/dL Albumin/Globulin Ratio 0.2 (1.0-2.7) L Plan Problems: (1) UTI (urinary tract infection) (2) Acute respiratory failure Assessment & Plan: There is infiltrate suspected in the right perihilar region obscuring the right hilum. There is a hazy opacity that may partially be accounted for by pleural fluid on the right. Reticular densities are present on the left in the perihilar aspect of the lung. Endotracheal tube is in good position just above the anselmo. Heart size is normal. IMPRESSION: Suspected perihilar airspace disease in the right lung suspicious for pneumonia. Reticular nodular infiltrate in the left lung noted also. Right pleural effusion suspected. Endotracheal tube in good position cont vents support Lungs: Similar bilateral interstitial prominence, greater on the right. Stable right perihilar, mid and lower lung opacities. Similar left lung base opacity. Pleural space: Small left pleural effusion is stable. Loculated right pleural effusion is stable. No pneumothorax. Heart: Unremarkable. No cardiomegaly. Mediastinum: Unremarkable. Bones/joints: Unremarkable. Tubes, lines and devices: Endotracheal tube has been pulled back and is 10 cm above the anselmo near the thoracic inlet. IMPRESSION: Endotracheal tube has been pulled back and is 10 cm above the anselmo near the thoracic inlet. Remainder findings are stable. may need thoracentesis soon Moderate size right pleural effusion with right upper and lower lobe atelectasis/consolidation, as well as mild pulmonary edema.. 1. Patchy opacities throughout the right lung left mid and lower lung, similar to slightly increased. Possible small bilateral pleural effusions. 2. Endotracheal tube terminates in the region of the lower thoracic trachea above the anselmo. consider trach code status? (3) Sepsis Assessment & Plan: Pt cachetic and presented on admission with multiple pressure injuries. Partial thickness pressure injury Cleft of L ear(L)1.2cm x (W)0.4cm. Base of wound moist and viable with small amt sanguineous exudate. Partial thickness pressure injury cleft of R ear(L)0.5cm x (W)0.7cm. Base of wound moist and viable Periwound erythematous.Small amt sanguineous exudate noted. Sacral DTPI(L)5cm x (W)10.5cm. Base of injury is purple with maroon borders. Coccygeal bony protrusion with darker skin tone, and small opening noted to R gluteus (L)0.5cm x (W)0.5cm within base of injury. No further skin breakdown periwound. Intact blood blister noted to R 1st metatarsal head(L)1.1cm x (W)2.5cm. DTPI noted to L heel extending into plantar aspect. Base of injury presents as an intact blood filled blister. Periwound is boggy with non-blanching erythema. R heel is boggy but blanchable. wounds unlikely etiology of sepsis respiratory but given current condition high risk for breakdown and worsening will monitor closely discussed with RN and staff great care being provided coded acls intubated in ICU prognosis guarded Tx.Plan: Apply Betadine to clefts of R and L ears. Pad oxygen tubing with gauze and keep oxygen tubing loose. Apply Moisture Barrier Paste to Sacrum. Cover with Optifoam drsg. Change every 3 days and prn. Apply Betadine to L heel. Cover with Optifoam drsg. Change every 3 days and prn. Apply Betadine to R 1st metatarsal head. Cover with Optifoam drsg. Change every 3 days and prn. Apply Cavilon Skin Barrier R heel. Cover with Optifoam drsg. Change every 7 days and prn. Reposition at least every 2hours or as tolerated. Off-load heels with pillow. on air mattress but not very comfortable appearing cont current care / pulm management (4) Severe anemia (5) Nosocomial pneumonia (6) Atrial fibrillation (7) Acute metabolic encephalopathy (8) History of CVA (cerebrovascular accident) (9) Diabetes mellitus (10) Hypothyroidism (11) Alzheimer's dementia (12) PVC (premature ventricular contraction) (13) Hypertension (14) Squamous cell esophageal cancer (15) Feeding by G-tube (16) Dehydration (17) Anemia (18) Severe malnutrition Assessment & Plan: DAILY ESTIMATED NEEDS: Needs based on underweight, suspected wt loss, wounds/ 63kg 25-33 kcals/kg 9262-3014 total kcals 1.25-2 g protein/kg 78-126 g total protein 25-30 mL/kg 5189-6205 total fluid mLs NUTRITION DIAGNOSIS: * Swallowing difficulty R/T dysphagia w/ h/o CVA as evidenced by now s/p recent PEG placement (08/08/19), on GT feeds, held at time, s/p code blue (09/07), orally intubated, now extubated. * Increased kcal/prot intake needs R/T suspected significant wt loss and underweight status, wounds as evidenced by 10lbs/6.7% wt loss in 1 month, 76% IBW w/ BMI of 18.4, admitted w/ DTPI wound @ sacrum, Lt heel, partial thickness pressure injury cleft of R L ear. CURRENT TF:Osmolite 1.2 @ 60ml/hr x 22 hrs ENTERAL NUTRITION RECOMMENDATIONS: Osmolite 1.2 @ 60ml/hr x 22 hrs + Prosource x 1 to provide 1320ml, 1584kcal, 73g +11g prot, 1082ml free water - Add Prosource x 1 to meet protein needs - HOLD 1 hr before and after synthroid meds. add Prosource 1 pack daily to better meet est pro needs - Flush per MD/ HOB over 30 degrees WITH ELEV BG, rec TF change to Glucerna 1.2 w/ a goal of 60ml/hr x22 hrs to provide 1320ml, 1584kcal, 79g prot ADDITIONAL RECOMMENDATIONS: * PER SNF: HT=6'1" WT= 139lbs ("August weight" from SNF) -> calibrated bedscale wt * Monitor K, need for TF change (K 5.9 upon adm, now wnl) * Wound care: add Vit C 500mg QD + Wesley 1pkt BID via PEG * Monitor BGs, need for NISS: h/o DM per MD (checking A1C not suggested given low hgb) (19) Encounter for PEG (percutaneous endoscopic gastrostomy) (20) At high risk for aspiration (21) Pleural effusion (22) Suspected COVID-19 virus infection Jan Mora October 13, 2019 18:31
--- NOTE | 2019-10-13 18:36 | Consultation ---
Consult Note Consult Note [facility] NEUROLOGY CONSULTATION October 13, 2019 Dear Drs. Hui & Freddy, I evaluated Mr. Yaniv Vazquez and my assessment is as follows. HISTORY: Mr. Yaniv Vazquez is an 84-year-old, black gentleman, of unknown handedness, who does have a past history of hypertension, diabetes mellitus, dyslipidemia, hypothyroidism, esophageal cancer, cerebrovascular disease -the details of which are unknown to us, and Alzheimer's disease, was brought into the [facility] emergency room from his group home on 09/07/2019. Since he has been in the hospital he has had multiple endotracheal intubations followed by extubations followed by reintubation because of bouts of respiratory failure. His cognitive function has progressively worsened and thus this consultation was requested to evaluate the patient from a neurological point of view to help prognosticate. Mr. Vazquez can be aroused but is otherwise unable to interact or communicate, thus no further history can be obtained. PAST HISTORY: Hypertension, diabetes mellitus, dyslipidemia, hypothyroidism, esophageal cancer, cerebrovascular disease -the details of which are unknown to us, and Alzheimer's disease. FAMILY HISTORY: Unavailable. PERSONAL HISTORY: Home: He lives in a group home. Work: He is retired. Habits: There is no history of alcohol tobacco or illicit drug use. ALLERGIES: He is allergic to penicillins. NEUROLOGIC REVIEW OF SYSTEMS: Benign. PHYSICAL EXAMINATION: GENERAL: He is a well-developed, relatively well-nourished, black gentleman, lying in an ICU bed, connected to ventilator, via an orotracheal tube. VITAL SIGNS: Pulse: 28/minute and regular. Blood Pressure: 107/59 mm of Hg. Respirations: 13/minute Temperature: 99.8 F. HEAD: Normocephalic and atraumatic. NECK: No neck rigidity was observed. EENT: Benign. NEUROLOGIC EXAMINATION: MENTAL STATUS EXAMINATION: He opened his eyes on applying deep painful stimuli. He was unable to interact in any other manner. Further mental status testing was impossible. SPEECH: Could not be tested. LANGUAGE: He did not follow simple commands or express himself in any way. CRANIAL NERVE EXAMINATION: II: He did not blink to threat. III, IV, : External ocular movements were present on oculocephalic maneuvers. The pupils were 3 mm in diameter and did not react to light. V-VII: The corneal reflexes were present but subdued bilaterally. VIII: He did not respond to loud sounds and had no nystagmus. IX-X: The gag reflex was absent on manipulating the endotracheal tube. XI: The sternocleidomastoids and trapezii did not function. XII: Could not be tested adequately. MOTOR SYSTEM: The tone was increased in all 4 extremities with a significant degree of spasticity. Examination of muscle mass revealed generalized muscle wasting with bilateral upper and lower extremity contractures in flexion. No movements was were noted even on applying deep painful stimuli. SENSORY EXAMINATION: He responded to deep pain with brief eye opening. COORDINATION: Could not be tested. REFLEXES: 0 at the biceps, triceps, brachioradialis, knees and ankles. The plantar responses were mute bilaterally. STANCE: Could not be tested. GAIT: Could not be tested. ABNORMAL MOVEMENTS: None DIAGNOSTIC IMPRESSION: 1. Mr. Yaniv Vazquez is an 84-year-old, black gentleman, of unknown handedness, who does have a past history of hypertension, diabetes mellitus, dyslipidemia, hypothyroidism, esophageal cancer, cerebrovascular disease -the details of which are unknown to us, and Alzheimer's disease, was brought into the [facility] emergency room from his group home on 09/07/2019. 2. Since he has been in the hospital he has had multiple endotracheal intubations followed by extubations followed by reintubation because of bouts of respiratory failure. His cognitive function has progressively worsened and thus this consultation was requested to evaluate the patient from a neurological point of view to help prognosticate. 3. On neurological examination, at this time, he does open his eyes on deep painful stimulation but rapidly closes them if not constantly stimulated. He does not respond in any other manner. He does have brainstem function in the form of external eye movements on oculocephalic maneuvers, and corneal reflexes. He has severe spasticity in all 4 extremities and significant wasting and contractures involving all 4 extremities. He does not move any of his extremities even on applying deep painful stimuli. His deep tendon reflexes are globally absent and his plantar responses mute. 4. The patient's history and neurological examination are most consistent with severe bilateral cerebral dysfunction. It is unclear if this is due to structural pathology, multiple hypoxic cerebral insults, other toxic metabolic imbalances, or a combination thereof. RECOMMENDATIONS: 1. A CT scan of the brain without contrast will be ordered for tomorrow morning to evaluate the patient for intracranial pathology. 2. An EEG will be ordered to evaluate the patient for the degree and type of cerebral dysfunction. 3. Depending on the results of the above-mentioned tests further recommendations will be given. Thank you for entrusting me to take care of Mr. Vazquez neurologic needs. Sincerely, Daniel Ricardo M.D., M.S.P.H. Neurologist & Clinical Neurophysiologist Daniel Ricardo MD October 13, 2019 18:36
[2019-10-14] VITALS (25 sets, daily range): BP systolic 102–154; BP diastolic 44–74
[2019-10-14 05:44] LABS: HEMATOCRIT 23.7 % (42.0-52.0); HEMOGLOBIN 7.8 G/DL (14.2-18.0); MEAN CORPUSCULAR VOLUME 80 FL (80-99); PLATELET COUNT 391 K/UL (150-450); RED BLOOD COUNT 2.96 M/UL (4.70-6.10); RED CELL DISTRIBUTION WIDTH 16.3 % (11.6-14.8); WHITE BLOOD COUNT 10.8 K/UL (4.8-10.8)
[2019-10-14 06:34] LABS: ALANINE AMINOTRANSFERASE 40 U/L (12-78); ALBUMIN 1.3 G/DL (3.4-5.0); ALBUMIN/GLOBULIN RATIO 0.3 (1.0-2.7); ALKALINE PHOSPHATASE 277 U/L (46-116); ANION GAP 7 mmol/L (5-15); ASPARTATE AMINO TRANSFERASE 65 U/L (15-37); BILIRUBIN,TOTAL 0.6 MG/DL (0.2-1.0); BLOOD UREA NITROGEN 34 mg/dL (7-18); CALCIUM 8.3 MG/DL (8.5-10.1); CARBON DIOXIDE 28 MMOL/L (21-32); CHLORIDE 102 MMOL/L (98-107); POTASSIUM 5.5 MMOL/L (3.5-5.1); SODIUM 137 MMOL/L (136-145)
[2019-10-14] MEDS: Docusate 100mg/10ml Liq GT SCH ×3 (08:26→17:26)
[2019-10-14] MEDS: Heparin 5000 units/ml inj SUBQ SCH ×2 (08:28→20:41)
--- NOTE | 2019-10-14 11:20 | Pulmonolgy Critical Care Note ---
Critical Care - Asmt/Plan Problems: (1) Acute respiratory failure (2) Pleural effusion Assessment & Plan: s/p thoracentesis times 2, increasing again (3) Nosocomial pneumonia (4) Sepsis (5) Squamous cell esophageal cancer (6) Diabetes mellitus (7) Severe malnutrition (8) Alzheimer's dementia (9) History of CVA (cerebrovascular accident) (10) Feeding by G-tube Respiratory: monitor respiratory rate, adjust FIO2, CXR Cardiac: continue pressors, continue to monitor HR/BP Infectious Disease: check cultures Gastrointestinal: continue feedings/current rate Endocrine: monitor blood sugar, continue sliding scale insulin Hematologic: transfuse if hgb<8.5 Neurologic: keep patient comfortable Affect: PRN ativan Prophylaxis: Protonix Time Spent (Minutes): 40 Notes Reviewed: cardio Discussed with: nurses, consultants, case management assistanthvac service manager - Objective Last 24 Hour Vital Signs Date Time Temp Pulse Resp B/P (MAP) Pulse Ox O2 Delivery O2 Flow Rate FiO2 10/14/19 10:00 79 14 102/48 (66) 98 10/14/19 09:21 83 20 40 10/14/19 09:00 82 15 103/49 (67) 98 10/14/19 08:27 83 117/54 10/14/19 08:00 98.4 79 14 117/54 (75) 100 10/14/19 08:00 78 10/14/19 08:00 Mechanical Ventilator 10/14/19 08:00 40 10/14/19 07:00 79 14 119/49 (72) 88 10/14/19 06:56 121 25 97 Mechanical Ventilator 40 10/14/19 06:55 121 25 40 10/14/19 06:30 80 19 10/14/19 06:00 80 15 113/56 (75) 92 10/14/19 05:25 82 16 40 10/14/19 05:00 79 16 119/53 (75) 86 10/14/19 04:00 40 10/14/19 04:00 98.5 82 15 140/66 (90) 92 10/14/19 04:00 Mechanical Ventilator 10/14/19 04:00 80 10/14/19 03:30 80 15 40 10/14/19 03:00 76 16 119/51 (73) 100 10/14/19 02:00 82 15 114/49 (70) 100 10/14/19 01:30 84 14 40 10/14/19 01:00 77 17 108/51 (70) 98 10/14/19 00:00 Mechanical Ventilator 10/14/19 00:00 99.5 80 16 109/69 (82) 100 10/13/19 23:29 80 15 40 10/13/19 23:00 78 14 110/48 (68) 100 10/13/19 22:00 79 16 111/49 (69) 96 10/13/19 21:09 78 14 40 10/13/19 21:00 80 14 112/55 (74) 100 10/13/19 20:58 79 112/55 10/13/19 20:00 40 10/13/19 20:00 Mechanical Ventilator 10/13/19 20:00 99.0 80 14 112/55 (74) 100 10/13/19 20:00 82 10/13/19 19:30 77 16 40 10/13/19 19:00 79 21 118/48 (71) 100 10/13/19 18:00 81 14 115/49 (71) 100 10/13/19 17:19 78 13 40 10/13/19 17:00 78 15 107/59 (75) 100 10/13/19 17:00 78 16 107/59 (75) 100 10/13/19 16:00 79 15 113/58 (76) 100 10/13/19 16:00 40 10/13/19 16:00 79 10/13/19 16:00 79 15 113/58 (76) 100 10/13/19 16:00 Mechanical Ventilator 10/13/19 16:00 78 19 113/58 (76) 100 10/13/19 15:22 82 17 40 10/13/19 15:00 82 19 112/49 (70) 100 10/13/19 15:00 82 19 112/49 (70) 100 10/13/19 15:00 82 19 112/49 (70) 100 10/13/19 14:00 80 15 100/49 (66) 100 10/13/19 14:00 79 13 100/49 (66) 100 10/13/19 14:00 79 13 100/49 (66) 100 10/13/19 13:25 75 15 40 10/13/19 13:00 79 13 109/58 (75) 100 10/13/19 13:00 79 13 109/58 (75) 100 10/13/19 13:00 79 13 109/58 (75) 100 10/13/19 12:00 99.8 80 17 97/47 (64) 100 10/13/19 12:00 99.8 80 17 97/47 (64) 100 10/13/19 12:00 80 17 97/47 (64) 100 10/13/19 12:00 Mechanical Ventilator 10/13/19 12:00 87 10/13/19 12:00 40 Status: obtunded Condition: critical Lungs: rales, rhonchi Heart: HR/BP stable Abdomen: soft, active bowel sounds Extremities: no C/C/E Critical Care - Subjective ROS Limited/Unobtainable: Yes Condition: critical EKG Rhythm: Sinus Rhythm FI02: 40 Vent Support Breath Rate: 12 Vent Support Mode: AC Vent Tidal Volume: 550 Sputum Amount: Small PEEP: 5.0 PIP: 24 Tube Feeding Amount: 60 I&O: Intake and Output 10/13/19 10/14/19 19:00 07:00 Intake Total 870 ml 870 ml Output Total 495 ml 490 ml Balance 375 ml 380 ml Intake Free Water 150 ml Tube Feeding 720 ml 720 ml Other 150 ml Output Urine Total 495 ml 490 ml # Bowel Movements 1 3 ET-Tube: 25.0 ET Position: 26 Labs: Laboratory Tests Test 10/14/19 04:25 White Blood Count 10.8 K/UL (4.8-10.8) Red Blood Count 2.96 M/UL (4.70-6.10) L Hemoglobin 7.8 G/DL (14.2-18.0) L Hematocrit 23.7 % (42.0-52.0) L Mean Corpuscular Volume 80 FL (80-99) Mean Corpuscular Hemoglobin 26.3 PG (27.0-31.0) L Mean Corpuscular Hemoglobin Concent 32.8 G/DL (32.0-36.0) Red Cell Distribution Width 16.3 % (11.6-14.8) H Platelet Count 391 K/UL (150-450) Mean Platelet Volume 5.3 FL (6.5-10.1) L Neutrophils (%) (Auto) % (45.0-75.0) Lymphocytes (%) (Auto) % (20.0-45.0) Monocytes (%) (Auto) % (1.0-10.0) Eosinophils (%) (Auto) % (0.0-3.0) Basophils (%) (Auto) % (0.0-2.0) Differential Total Cells Counted 100 Neutrophils % (Manual) 75 % (45-75) Lymphocytes % (Manual) 12 % (20-45) L Monocytes % (Manual) 9 % (1-10) Eosinophils % (Manual) 4 % (0-3) H Basophils % (Manual) 0 % (0-2) Band Neutrophils 0 % (0-8) Platelet Estimate Adequate Platelet Morphology Normal Hypochromasia 3+ Anisocytosis 1+ Sodium Level 137 MMOL/L (136-145) Potassium Level 5.5 MMOL/L (3.5-5.1) H Chloride Level 102 MMOL/L (98-107) Carbon Dioxide Level 28 MMOL/L (21-32) Anion Gap 7 mmol/L (5-15) Blood Urea Nitrogen 34 mg/dL (7-18) H Creatinine 1.0 MG/DL (0.55-1.30) Estimat Glomerular Filtration Rate > 60 mL/min (>60) Glucose Level 138 MG/DL (74-106) H Calcium Level 8.3 MG/DL (8.5-10.1) L Total Bilirubin 0.6 MG/DL (0.2-1.0) Aspartate Amino Transf (AST/SGOT) 65 U/L (15-37) H Alanine Aminotransferase (ALT/SGPT) 40 U/L (12-78) Alkaline Phosphatase 277 U/L (46-116) H Total Protein 6.2 G/DL (6.4-8.2) L Albumin 1.3 G/DL (3.4-5.0) L Globulin 4.9 g/dL Albumin/Globulin Ratio 0.3 (1.0-2.7) L Vania Hui MD October 14, 2019 11:20
--- NOTE | 2019-10-14 11:25 | Nephrology Progress Note ---
Assessment/Plan Problem List: (1) RAMAN (acute kidney injury) Assessment: Serum creatinine normalized with hydration (2) Dehydration (3) Suspected COVID-19 virus infection (4) Anemia (5) Sepsis (6) Diabetes mellitus (7) Hypothyroidism Assessment - Acute renal failure - Severe anemia - Sepsis, pneumonia, acute respiratory failure, suspected: Viewed 19 virus infection - Diabetes mellitus - Hypothyroidism - Feeding by G-tube - Squamous cell esophageal cancer - History of CVA (cerebrovascular accident) Plan October 8: Potassium of 5.5 likely hemolyzed Discussed with RN to adjust Muniz catheter and do a bedside bladder ultrasound to assess if there is any urinary retention October 7: Remains stable from renal standpoint to view Remains intubated Continue per consultants Not much to add from renal standpoint. October 6: Remains stable from renal standpoint of view Remains intubated Data reviewed October 5: Dose unchanged from renal standpoint to view Remains intubated October 4: Stable from renal standpoint of view Hemoglobin higher today October 08 Discussed with RN Remains intubated on ventilator Hemoglobin is drifting down Will reorder iron panel Remains stable from renal standpoint of view Remains full code October 2: Discussed with RN. Patient remains intubated. Family declined comfort care. Weaning trial is being attempted Main stable from renal standpoint of view We will order labs for tomorrow. Previously Patient was coded early September 23 morning and back in ICU intubated Serum creatinine miguel to 1.5, now back to normal Stable from renal standpoint of view at this point He is status remains full code Tested negative for COVID-19 Previously: Pneumonia SARS-CoV neg x2 MRSA screen pos sp cx: PSA and proteus Changes Seroquel to "as needed" due to bradycardia Discontinue IV fluid Monitor renal parameters, serum creatinine Adjust electrolytes with supplements Increase Synthroid dose Avoid nephrotoxic's as possible Ventilator management Urine studies Per orders Subjective ROS Limited/Unobtainable: Yes Objective Objective Last 24 Hour Vital Signs Date Time Temp Pulse Resp B/P (MAP) Pulse Ox O2 Delivery O2 Flow Rate FiO2 10/14/19 10:00 79 14 102/48 (66) 98 10/14/19 09:21 83 20 40 10/14/19 09:00 82 15 103/49 (67) 98 10/14/19 08:27 83 117/54 10/14/19 08:00 98.4 79 14 117/54 (75) 100 10/14/19 08:00 78 10/14/19 08:00 Mechanical Ventilator 10/14/19 08:00 40 10/14/19 07:00 79 14 119/49 (72) 88 10/14/19 06:56 121 25 97 Mechanical Ventilator 40 10/14/19 06:55 121 25 40 10/14/19 06:30 80 19 10/14/19 06:00 80 15 113/56 (75) 92 10/14/19 05:25 82 16 40 10/14/19 05:00 79 16 119/53 (75) 86 10/14/19 04:00 40 10/14/19 04:00 98.5 82 15 140/66 (90) 92 10/14/19 04:00 Mechanical Ventilator 10/14/19 04:00 80 10/14/19 03:30 80 15 40 10/14/19 03:00 76 16 119/51 (73) 100 10/14/19 02:00 82 15 114/49 (70) 100 10/14/19 01:30 84 14 40 10/14/19 01:00 77 17 108/51 (70) 98 10/14/19 00:00 Mechanical Ventilator 10/14/19 00:00 99.5 80 16 109/69 (82) 100 10/13/19 23:29 80 15 40 10/13/19 23:00 78 14 110/48 (68) 100 10/13/19 22:00 79 16 111/49 (69) 96 10/13/19 21:09 78 14 40 10/13/19 21:00 80 14 112/55 (74) 100 10/13/19 20:58 79 112/55 10/13/19 20:00 40 10/13/19 20:00 Mechanical Ventilator 10/13/19 20:00 99.0 80 14 112/55 (74) 100 10/13/19 20:00 82 10/13/19 19:30 77 16 40 10/13/19 19:00 79 21 118/48 (71) 100 10/13/19 18:00 81 14 115/49 (71) 100 10/13/19 17:19 78 13 40 10/13/19 17:00 78 15 107/59 (75) 100 10/13/19 17:00 78 16 107/59 (75) 100 10/13/19 16:00 79 15 113/58 (76) 100 10/13/19 16:00 40 10/13/19 16:00 79 10/13/19 16:00 79 15 113/58 (76) 100 10/13/19 16:00 Mechanical Ventilator 10/13/19 16:00 78 19 113/58 (76) 100 10/13/19 15:22 82 17 40 10/13/19 15:00 82 19 112/49 (70) 100 10/13/19 15:00 82 19 112/49 (70) 100 10/13/19 15:00 82 19 112/49 (70) 100 10/13/19 14:00 80 15 100/49 (66) 100 10/13/19 14:00 79 13 100/49 (66) 100 10/13/19 14:00 79 13 100/49 (66) 100 10/13/19 13:25 75 15 40 10/13/19 13:00 79 13 109/58 (75) 100 10/13/19 13:00 79 13 109/58 (75) 100 10/13/19 13:00 79 13 109/58 (75) 100 10/13/19 12:00 99.8 80 17 97/47 (64) 100 10/13/19 12:00 99.8 80 17 97/47 (64) 100 10/13/19 12:00 80 17 97/47 (64) 100 10/13/19 12:00 Mechanical Ventilator 10/13/19 12:00 87 10/13/19 12:00 40 Intake and Output 10/13/19 10/14/19 19:00 07:00 Intake Total 870 ml 870 ml Output Total 495 ml 490 ml Balance 375 ml 380 ml Intake Free Water 150 ml Tube Feeding 720 ml 720 ml Other 150 ml Output Urine Total 495 ml 490 ml # Bowel Movements 1 3 Laboratory Tests 10/14/19 04:25: White Blood Count 10.8, Red Blood Count 2.96L, Hemoglobin 7.8L, Hematocrit 23.7L , Mean Corpuscular Volume 80, Mean Corpuscular Hemoglobin 26.3L, Mean Corpuscular Hemoglobin Concent 32.8, Red Cell Distribution Width 16.3H, Platelet Count 391, Mean Platelet Volume 5.3L, Neutrophils (%) (Auto) , Lymphocytes (%) (Auto) , Monocytes (%) (Auto) , Eosinophils (%) (Auto) , Basophils (%) (Auto) , Differential Total Cells Counted 100, Neutrophils % ( Manual) 75, Lymphocytes % (Manual) 12L, Monocytes % (Manual) 9, Eosinophils % ( Manual) 4H, Basophils % (Manual) 0, Band Neutrophils 0, Platelet Estimate Adequate, Platelet Morphology Normal, Hypochromasia 3+, Anisocytosis 1+, Sodium Level 137, Potassium Level 5.5H, Chloride Level 102, Carbon Dioxide Level 28, Anion Gap 7, Blood Urea Nitrogen 34H, Creatinine 1.0, Estimat Glomerular Filtration Rate > 60, Glucose Level 138H, Calcium Level 8.3L, Total Bilirubin 0.6, Aspartate Amino Transf (AST/SGOT) 65H, Alanine Aminotransferase (ALT/SGPT) 40, Alkaline Phosphatase 277H, Total Protein 6.2L, Albumin 1.3L, Globulin 4.9, Albumin/Globulin Ratio 0.3L Height (Feet): 5 Height (Inches): 11.00 Weight (Pounds): 142 General Appearance: no apparent distress EENT: other - Intubated on ventilator Cardiovascular: tachycardia Respiratory/Chest: decreased breath sounds Abdomen: distended Objective no change Clovis Benites MD October 14, 2019 11:25
--- NOTE | 2019-10-14 11:44 | General Progress Note ---
Assessment/Plan Status: unchanged Assessment/Plan: 1. Esophageal cancer. 2. Dysphagia. 3. Diabetes type 2. 4. Dementia. 5. CVA. 6. Hypothyroidism. 7. Seizure disorder. 8. Iron deficiency anemia. 9. Respiratory failure. 10. Dysphagia with G-tube stable H&H GT has been changed and working well GT flushes dietitian in put appreciated>>> TF Javity subhash abx per id pulm care bowel regimen recent labs and notes reviewed D/W the nurse going for head CT will fu Subjective ROS Limited/Unobtainable: No Allergies: Coded Allergies: PENICILLINS (Verified Allergy, Unknown, 10/27/18) tolretas cephalosporins Objective Last 24 Hour Vital Signs Date Time Temp Pulse Resp B/P (MAP) Pulse Ox O2 Delivery O2 Flow Rate FiO2 10/14/19 11:00 90 24 40 10/14/19 10:00 79 14 102/48 (66) 98 10/14/19 09:21 83 20 40 10/14/19 09:00 82 15 103/49 (67) 98 10/14/19 08:27 83 117/54 10/14/19 08:00 98.4 79 14 117/54 (75) 100 10/14/19 08:00 78 10/14/19 08:00 Mechanical Ventilator 10/14/19 08:00 40 10/14/19 07:00 79 14 119/49 (72) 88 10/14/19 06:56 121 25 97 Mechanical Ventilator 40 10/14/19 06:55 121 25 40 10/14/19 06:30 80 19 10/14/19 06:00 80 15 113/56 (75) 92 10/14/19 05:25 82 16 40 10/14/19 05:00 79 16 119/53 (75) 86 10/14/19 04:00 40 10/14/19 04:00 98.5 82 15 140/66 (90) 92 10/14/19 04:00 Mechanical Ventilator 10/14/19 04:00 80 10/14/19 03:30 80 15 40 10/14/19 03:00 76 16 119/51 (73) 100 10/14/19 02:00 82 15 114/49 (70) 100 10/14/19 01:30 84 14 40 10/14/19 01:00 77 17 108/51 (70) 98 5/8/20 00:00 Mechanical Ventilator 10/14/19 00:00 99.5 80 16 109/69 (82) 100 10/13/19 23:29 80 15 40 10/13/19 23:00 78 14 110/48 (68) 100 10/13/19 22:00 79 16 111/49 (69) 96 10/13/19 21:09 78 14 40 10/13/19 21:00 80 14 112/55 (74) 100 10/13/19 20:58 79 112/55 10/13/19 20:00 40 10/13/19 20:00 Mechanical Ventilator 10/13/19 20:00 99.0 80 14 112/55 (74) 100 10/13/19 20:00 82 10/13/19 19:30 77 16 40 10/13/19 19:00 79 21 118/48 (71) 100 10/13/19 18:00 81 14 115/49 (71) 100 10/13/19 17:19 78 13 40 10/13/19 17:00 78 15 107/59 (75) 100 10/13/19 17:00 78 16 107/59 (75) 100 10/13/19 16:00 79 15 113/58 (76) 100 10/13/19 16:00 40 10/13/19 16:00 79 10/13/19 16:00 79 15 113/58 (76) 100 10/13/19 16:00 Mechanical Ventilator 10/13/19 16:00 78 19 113/58 (76) 100 10/13/19 15:22 82 17 40 10/13/19 15:00 82 19 112/49 (70) 100 10/13/19 15:00 82 19 112/49 (70) 100 10/13/19 15:00 82 19 112/49 (70) 100 10/13/19 14:00 80 15 100/49 (66) 100 10/13/19 14:00 79 13 100/49 (66) 100 10/13/19 14:00 79 13 100/49 (66) 100 10/13/19 13:25 75 15 40 10/13/19 13:00 79 13 109/58 (75) 100 10/13/19 13:00 79 13 109/58 (75) 100 10/13/19 13:00 79 13 109/58 (75) 100 10/13/19 12:00 99.8 80 17 97/47 (64) 100 10/13/19 12:00 99.8 80 17 97/47 (64) 100 10/13/19 12:00 80 17 97/47 (64) 100 10/13/19 12:00 Mechanical Ventilator 10/13/19 12:00 87 10/13/19 12:00 40 Intake and Output 10/13/19 10/14/19 19:00 07:00 Intake Total 870 ml 870 ml Output Total 495 ml 490 ml Balance 375 ml 380 ml Intake Free Water 150 ml Tube Feeding 720 ml 720 ml Other 150 ml Output Urine Total 495 ml 490 ml # Bowel Movements 1 3 Laboratory Tests 10/14/19 04:25: White Blood Count 10.8, Red Blood Count 2.96L, Hemoglobin 7.8L, Hematocrit 23.7L , Mean Corpuscular Volume 80, Mean Corpuscular Hemoglobin 26.3L, Mean Corpuscular Hemoglobin Concent 32.8, Red Cell Distribution Width 16.3H, Platelet Count 391, Mean Platelet Volume 5.3L, Neutrophils (%) (Auto) , Lymphocytes (%) (Auto) , Monocytes (%) (Auto) , Eosinophils (%) (Auto) , Basophils (%) (Auto) , Differential Total Cells Counted 100, Neutrophils % ( Manual) 75, Lymphocytes % (Manual) 12L, Monocytes % (Manual) 9, Eosinophils % ( Manual) 4H, Basophils % (Manual) 0, Band Neutrophils 0, Platelet Estimate Adequate, Platelet Morphology Normal, Hypochromasia 3+, Anisocytosis 1+, Sodium Level 137, Potassium Level 5.5H, Chloride Level 102, Carbon Dioxide Level 28, Anion Gap 7, Blood Urea Nitrogen 34H, Creatinine 1.0, Estimat Glomerular Filtration Rate > 60, Glucose Level 138H, Calcium Level 8.3L, Total Bilirubin 0.6, Aspartate Amino Transf (AST/SGOT) 65H, Alanine Aminotransferase (ALT/SGPT) 40, Alkaline Phosphatase 277H, Total Protein 6.2L, Albumin 1.3L, Globulin 4.9, Albumin/Globulin Ratio 0.3L Height (Feet): 5 Height (Inches): 11.00 Weight (Pounds): 142 General Appearance: confused EENT: normal ENT inspection Neck: supple Cardiovascular: bradycardia Respiratory/Chest: decreased breath sounds Abdomen: normal bowel sounds, non tender, soft Extremities: non-tender Darrick Rosario MD October 14, 2019 11:44
--- NOTE | 2019-10-14 13:23 | Diagnostic Imaging Report ---
Indications: Altered mental status Technique: Spiral acquisitions obtained through the brain. Angled axial and coronal 5 x 5 mm slices were reconstructed. Total dose length product 1018 mGycm. CTDI vol(s) 53 mGy. Dose reduction achieved using automated exposure control Comparison: 10/25/2018 Findings: Again demonstrated is age-related enlargement of the ventricles and extra axial CSF spaces. There is considerable periventricular deep white matter low-attenuation, consistent with chronic microvascular ischemic change. Old lacunar infarcts are again seen in the bilateral frontal deep white matter and the left thalamus. There is also an old lacunar infarct in the right cerebellum which was not evident previously. No acute intracranial hemorrhage or edema. No mass effect nor midline shift. Otherwise normal carbajal-white differentiation. The calvarium is intact. There is sphenoid sinus disease. There is minimal bilateral mastoid effusion. There is evidence of prior cataract surgery on the left. Impression: Chronic and age-related changes, as described Multiple old infarcts, as described Negative for acute intracranial bleed or mass effect Incidental finding of sphenoid sinus and mastoid disease The CT scanner at [facility] is accredited by the [employer] and the scans are performed using protocols designed to limit radiation exposure to as low as reasonably achievable to attain images of sufficient resolution adequate for diagnostic evaluation.
--- NOTE | 2019-10-14 13:54 | Infectious Diseases Prog Note ---
Assessment/Plan Assessment/Plan 09/23 SP asystole cardiac arrest VDRF 09/23 Fever; SP Mild leukocytosis, SP Probable UTI -10/01 Bcx Neg u/a wbc tnct; ucx 30-40k C.albicans PNA VDRF, sp intubation 09/08, sp extubation 09/18, re-intubated 09/23 SARS-CoV neg x3 (09/06, 09/08, 09/30) MRSA screen pos 10/09 CXR: Markedly increased and now large right pleural effusion, over 4 days. There is probably some atelectasis on the right as well in addition to the passive atelectasis from pleural fluid. Improved aeration of the left lung 10/05 CXR: Focal patchy infiltrate in the left suprahilar region, not evident previously. Slightly increased small right pleural effusion. Obscured left hemidiaphragm, likely retrocardiac consolidation and/or left pleural fluid , unchanged Stable cardiomegaly 10/02 CXR: Increasing pleural fluid and possibly parenchymal consolidation at the right lung base. Unchanged left basilar pleural and parenchymal disease. sp cx PSA (hensley S), P. stuarti (R. cefepime, ancef, levaquin; S zosyn, ertapenem) 09/30 CXR: Patchy opacities throughout the right lung left mid and lower lung, similar to slightly increased. Possible small bilateral pleural effusions. 09/29 CXR: Increasing right mid and lower lung opacity, may indicate increasing pleural fluid, increasing infiltrate, or both. 09/28 CXR: Developing hazy right basilar opacity. This could represent reaching layering pleural fluid. This could also represent reexpansion pulmonary edema given recent high-volume thoracentesis, or could represent developing ammonia or pulmonary edema. Hazy left basilar opacity, unchanged, may reflect parenchymal infiltrate versus pleural fluid versus both 09/25 CXR: Large right pleural effusion is again demonstrated. Small left pleural effusion is again demonstrated. Left lung is otherwise clear. sp cx PsA (R zozyn, S levo, gentamycin) 09/24 CXR: Moderate size right pleural effusion with right upper and lower lobe atelectasis/consolidation, as well as mild pulmonary edema.. 09/17 CXR: Similar bilateral interstitial prominence, greater on the right.Stable right perihilar, mid and lower lung opacities. Similar left lung base opacity. Small left pleural effusion is stable. Loculated right pleural effusion is stable. No pneumothorax. CXR: Right pleural effusion, also demonstrated on prior 08/09/2019 exam, slightly increased. Hazy right lung parenchymal opacity probably represents a superimposed pleural fluid but infiltrate also possible. 09/06 sp cx: PSA (hensley S) and proteus (hensley S) R pleural effusion, exudative -09/18 SP thorancetesis; removal of 2050 mL fluid; Fluid prot 5 (serum prot 7.2 ); cx Neg QTc 419 RAMAN, improving Encephalopathy -Head CT: Chronic and age-related changes, as described. Multiple old infarcts , as described. Negative for acute intracranial bleed or mass effect. Incidental finding of sphenoid sinus and mastoid disease DM HTN CVA Dementia Nonverbal G tube Plan: Continue to monitor off abx 10/12 SP Meropenem #7 10/06 SP Levaquin #7 10/05 SP IV Vancomycin #6 09/19 SPcefepime # 09/09 SP vanc #4 ( Cr increased) ICU care monitor temp and CBC COVID neg x3 DW RN Thank you for this consult. [facility] will continue to follow the patient with you. Subjective Allergies: Coded Allergies: PENICILLINS (Verified Allergy, Unknown, 10/27/18) tolretas cephalosporins Subjective afebrile >24hrs leukocytosis resolved Objective Vital Signs Last 24 Hour Vital Signs Date Time Temp Pulse Resp B/P (MAP) Pulse Ox O2 Delivery O2 Flow Rate FiO2 10/14/19 13:00 91 21 125/62 (83) 99 10/14/19 12:00 Mechanical Ventilator 10/14/19 12:00 98.4 86 16 114/57 (76) 99 10/14/19 12:00 40 10/14/19 11:46 94 34 128/64 (85) 10/14/19 11:00 81 15 114/44 (67) 98 10/14/19 11:00 90 24 40 10/14/19 10:00 79 14 102/48 (66) 98 10/14/19 09:21 83 20 40 10/14/19 09:00 82 15 103/49 (67) 98 10/14/19 08:27 83 117/54 10/14/19 08:00 98.4 79 14 117/54 (75) 100 10/14/19 08:00 78 10/14/19 08:00 Mechanical Ventilator 10/14/19 08:00 40 10/14/19 07:00 79 14 119/49 (72) 88 10/14/19 06:56 121 25 97 Mechanical Ventilator 40 10/14/19 06:55 121 25 40 10/14/19 06:30 80 19 10/14/19 06:00 80 15 113/56 (75) 92 10/14/19 05:25 82 16 40 10/14/19 05:00 79 16 119/53 (75) 86 10/14/19 04:00 40 10/14/19 04:00 98.5 82 15 140/66 (90) 92 10/14/19 04:00 Mechanical Ventilator 10/14/19 04:00 80 10/14/19 03:30 80 15 40 10/14/19 03:00 76 16 119/51 (73) 100 10/14/19 02:00 82 15 114/49 (70) 100 10/14/19 01:30 84 14 40 10/14/19 01:00 77 17 108/51 (70) 98 10/14/19 00:00 Mechanical Ventilator 10/14/19 00:00 99.5 80 16 109/69 (82) 100 10/13/19 23:29 80 15 40 10/13/19 23:00 78 14 110/48 (68) 100 10/13/19 22:00 79 16 111/49 (69) 96 10/13/19 21:09 78 14 40 10/13/19 21:00 80 14 112/55 (74) 100 10/13/19 20:58 79 112/55 10/13/19 20:00 40 10/13/19 20:00 Mechanical Ventilator 10/13/19 20:00 99.0 80 14 112/55 (74) 100 10/13/19 20:00 82 10/13/19 19:30 77 16 40 10/13/19 19:00 79 21 118/48 (71) 100 10/13/19 18:00 81 14 115/49 (71) 100 10/13/19 17:19 78 13 40 10/13/19 17:00 78 15 107/59 (75) 100 10/13/19 17:00 78 16 107/59 (75) 100 10/13/19 16:00 79 15 113/58 (76) 100 10/13/19 16:00 40 10/13/19 16:00 79 10/13/19 16:00 79 15 113/58 (76) 100 10/13/19 16:00 Mechanical Ventilator 10/13/19 16:00 78 19 113/58 (76) 100 10/13/19 15:22 82 17 40 10/13/19 15:00 82 19 112/49 (70) 100 10/13/19 15:00 82 19 112/49 (70) 100 10/13/19 15:00 82 19 112/49 (70) 100 10/13/19 14:00 80 15 100/49 (66) 100 10/13/19 14:00 79 13 100/49 (66) 100 10/13/19 14:00 79 13 100/49 (66) 100 Height (Feet): 5 Height (Inches): 11.00 Weight (Pounds): 142 Objective Gen: NAD. well nourished HEENT: ETT. oral secretions Resp: coarse. equal chest rise. regular rate and rhythm. Abd: Soft. no TTP. nondistended. G tube site c/d/i. Neuro: opens eyes to voice and follows simple commands Laboratory Tests Test 10/14/19 04:25 White Blood Count 10.8 K/UL (4.8-10.8) Red Blood Count 2.96 M/UL (4.70-6.10) L Hemoglobin 7.8 G/DL (14.2-18.0) L Hematocrit 23.7 % (42.0-52.0) L Mean Corpuscular Volume 80 FL (80-99) Mean Corpuscular Hemoglobin 26.3 PG (27.0-31.0) L Mean Corpuscular Hemoglobin Concent 32.8 G/DL (32.0-36.0) Red Cell Distribution Width 16.3 % (11.6-14.8) H Platelet Count 391 K/UL (150-450) Mean Platelet Volume 5.3 FL (6.5-10.1) L Neutrophils (%) (Auto) % (45.0-75.0) Lymphocytes (%) (Auto) % (20.0-45.0) Monocytes (%) (Auto) % (1.0-10.0) Eosinophils (%) (Auto) % (0.0-3.0) Basophils (%) (Auto) % (0.0-2.0) Differential Total Cells Counted 100 Neutrophils % (Manual) 75 % (45-75) Lymphocytes % (Manual) 12 % (20-45) L Monocytes % (Manual) 9 % (1-10) Eosinophils % (Manual) 4 % (0-3) H Basophils % (Manual) 0 % (0-2) Band Neutrophils 0 % (0-8) Platelet Estimate Adequate Platelet Morphology Normal Hypochromasia 3+ Anisocytosis 1+ Sodium Level 137 MMOL/L (136-145) Potassium Level 5.5 MMOL/L (3.5-5.1) H Chloride Level 102 MMOL/L (98-107) Carbon Dioxide Level 28 MMOL/L (21-32) Anion Gap 7 mmol/L (5-15) Blood Urea Nitrogen 34 mg/dL (7-18) H Creatinine 1.0 MG/DL (0.55-1.30) Estimat Glomerular Filtration Rate > 60 mL/min (>60) Glucose Level 138 MG/DL (74-106) H Calcium Level 8.3 MG/DL (8.5-10.1) L Total Bilirubin 0.6 MG/DL (0.2-1.0) Aspartate Amino Transf (AST/SGOT) 65 U/L (15-37) H Alanine Aminotransferase (ALT/SGPT) 40 U/L (12-78) Alkaline Phosphatase 277 U/L (46-116) H Total Protein 6.2 G/DL (6.4-8.2) L Albumin 1.3 G/DL (3.4-5.0) L Globulin 4.9 g/dL Albumin/Globulin Ratio 0.3 (1.0-2.7) L Current Medications Medications (Trade) Dose Ordered Sig/Kike Route PRN Reason Start Time Stop Time Status Last Admin Dose Admin Amlodipine Besylate (Norvasc) 2.5 mg BID@0900,2100 NG 10/14/19 21:00 10/22/19 08:59 Docusate Sodium (Colace) 100 mg TID GT 10/05/19 13:00 11/03/19 08:59 10/14/19 08:26 Heparin Sodium (Porcine) (Heparin 5000 units/ml) 5,000 units EVERY 12 HOURS SUBQ 09/24/19 09:00 10/22/19 08:59 10/14/19 08:28 Lansoprazole (Prevacid) 30 mg DAILY GT 10/04/19 09:00 11/03/19 08:59 10/14/19 08:26 Polyethylene Glycol (Miralax) 17 gm DAILY PRN ORAL Constipation 10/13/19 11:30 11/12/19 11:29 Quetiapine Fumarate (SEROqueL) 25 mg Q8H PRN NG Agitation 09/24/19 02:35 10/30/19 02:34 10/08/19 20:45 Sennosides (Senokot) 8.6 mg DAILY PRN ORAL Constipation 10/06/19 10:15 11/05/19 10:14 10/07/19 21:56 Danielle Roach M.D. October 14, 2019 13:54
--- NOTE | 2019-10-14 14:46 | Neurology Progress Note ---
Interim History Interim History Interim History Mr. Yaniv Vazquez is an 84-year-old, black gentleman, of unknown handedness, who does have a past history of hypertension, diabetes mellitus, dyslipidemia, hypothyroidism, esophageal cancer, cerebrovascular disease -the details of which are unknown to us, and Alzheimer's disease, was brought into the [facility] emergency room from his snf on 09/07/2019. Since he has been in the hospital he has had multiple endotracheal intubations followed by extubations followed by reintubation because of bouts of respiratory failure. His cognitive function has progressively worsened and thus this consultation was requested to evaluate the patient from a neurological point of view to help prognosticate. Mr. Vazquez can be aroused but is otherwise unable to interact or communicate, thus no further history can be obtained. As per his nurse there has been no significant change in his condition since I saw him last. He continues to open his eyes but is otherwise unresponsive. Review of Systems Neuro Review of Systems Unable to obtain. Objective Physical Exam Last Vital Signs Date Time Temp Pulse Resp B/P (MAP) Pulse Ox O2 Delivery O2 Flow Rate FiO2 10/14/19 13:00 86 20 40 10/14/19 13:00 125/62 (83) 99 10/14/19 12:00 Mechanical Ventilator 10/14/19 12:00 98.4 Laboratory Tests Test 10/14/19 04:25 White Blood Count 10.8 K/UL (4.8-10.8) Red Blood Count 2.96 M/UL (4.70-6.10) L Hemoglobin 7.8 G/DL (14.2-18.0) L Hematocrit 23.7 % (42.0-52.0) L Mean Corpuscular Volume 80 FL (80-99) Mean Corpuscular Hemoglobin 26.3 PG (27.0-31.0) L Mean Corpuscular Hemoglobin Concent 32.8 G/DL (32.0-36.0) Red Cell Distribution Width 16.3 % (11.6-14.8) H Platelet Count 391 K/UL (150-450) Mean Platelet Volume 5.3 FL (6.5-10.1) L Neutrophils (%) (Auto) % (45.0-75.0) Lymphocytes (%) (Auto) % (20.0-45.0) Monocytes (%) (Auto) % (1.0-10.0) Eosinophils (%) (Auto) % (0.0-3.0) Basophils (%) (Auto) % (0.0-2.0) Differential Total Cells Counted 100 Neutrophils % (Manual) 75 % (45-75) Lymphocytes % (Manual) 12 % (20-45) L Monocytes % (Manual) 9 % (1-10) Eosinophils % (Manual) 4 % (0-3) H Basophils % (Manual) 0 % (0-2) Band Neutrophils 0 % (0-8) Platelet Estimate Adequate Platelet Morphology Normal Hypochromasia 3+ Anisocytosis 1+ Sodium Level 137 MMOL/L (136-145) Potassium Level 5.5 MMOL/L (3.5-5.1) H Chloride Level 102 MMOL/L (98-107) Carbon Dioxide Level 28 MMOL/L (21-32) Anion Gap 7 mmol/L (5-15) Blood Urea Nitrogen 34 mg/dL (7-18) H Creatinine 1.0 MG/DL (0.55-1.30) Estimat Glomerular Filtration Rate > 60 mL/min (>60) Glucose Level 138 MG/DL (74-106) H Calcium Level 8.3 MG/DL (8.5-10.1) L Total Bilirubin 0.6 MG/DL (0.2-1.0) Aspartate Amino Transf (AST/SGOT) 65 U/L (15-37) H Alanine Aminotransferase (ALT/SGPT) 40 U/L (12-78) Alkaline Phosphatase 277 U/L (46-116) H Total Protein 6.2 G/DL (6.4-8.2) L Albumin 1.3 G/DL (3.4-5.0) L Globulin 4.9 g/dL Albumin/Globulin Ratio 0.3 (1.0-2.7) L Neurologic Exam Objective PHYSICAL EXAMINATION: GENERAL: He is a well-developed, relatively well-nourished, black gentleman, lying in an ICU bed, connected to ventilator, via an orotracheal tube. HEAD: Normocephalic and atraumatic. NECK: No neck rigidity was observed. EENT: Benign. NEUROLOGIC EXAMINATION: MENTAL STATUS EXAMINATION: He opened his eyes on applying deep painful stimuli. He was unable to interact in any other manner. Further mental status testing was impossible. SPEECH: Could not be tested. LANGUAGE: He did not follow simple commands or express himself in any way. CRANIAL NERVE EXAMINATION: II: He did not blink to threat. III, IV, : External ocular movements were present on oculocephalic maneuvers. The pupils were 3 mm in diameter and did not react to light. V-VII: The corneal reflexes were present but subdued bilaterally. VIII: He did not respond to loud sounds and had no nystagmus. IX-X: The gag reflex was absent on manipulating the endotracheal tube. XI: The sternocleidomastoids and trapezii did not function. XII: Could not be tested adequately. MOTOR SYSTEM: The tone was increased in all 4 extremities with a significant degree of spasticity. Examination of muscle mass revealed generalized muscle wasting with bilateral upper and lower extremity contractures in flexion. No movements was were noted even on applying deep painful stimuli. SENSORY EXAMINATION: He responded to deep pain with brief eye opening. COORDINATION: Could not be tested. REFLEXES: 0 at the biceps, triceps, brachioradialis, knees and ankles. The plantar responses were mute bilaterally. STANCE: Could not be tested. GAIT: Could not be tested. ABNORMAL MOVEMENTS: None Impression/Recommendations Diagnostic Impression DIAGNOSTIC IMPRESSION: 1. Mr. Yaniv Vazquez is an 84-year-old, black gentleman, of unknown handedness, who does have a past history of hypertension, diabetes mellitus, dyslipidemia, hypothyroidism, esophageal cancer, cerebrovascular disease -the details of which are unknown to us, and Alzheimer's disease, was brought into the [facility] emergency room from his snf on 09/07/2019. 2. Since he has been in the hospital he has had multiple endotracheal intubations followed by extubations followed by reintubation because of bouts of respiratory failure. His cognitive function has progressively worsened and thus this consultation was requested to evaluate the patient from a neurological point of view to help prognosticate. 3. As per his nurse there has been no significant change in his condition since I saw him last. He continues to open his eyes but is otherwise unresponsive. 4. On neurological examination, at this time, he does open his eyes on deep painful stimulation but rapidly closes them if not constantly stimulated. He does not respond in any other manner. He does have brainstem function in the form of external eye movements on oculocephalic maneuvers, and corneal reflexes. He has severe spasticity in all 4 extremities and significant wasting and contractures involving all 4 extremities. He does not move any of his extremities even on applying deep painful stimuli. His deep tendon reflexes are globally absent and his plantar responses mute. 6. The CT scan of the brain without contrast performed on 10/14/2019 revealed deep white matter changes consistent with chronic microvascular ischemic disease. In addition old subcortical infarcts was seen in the frontal deep white matter bilaterally, the left thalamus, and the right cerebellum. 6. The patient's history and neurological examination are most consistent with severe bilateral cerebral dysfunction. This dysfunction is due to old bilateral cerebrovascular disease and in addition the superimposed encephalopathy related to multiple hypoxic insults and other toxic metabolic imbalances. Recommendations RECOMMENDATIONS: 1. Continue present management. 2. Await EEG to evaluate the patient for the degree and type of cerebral dysfunction. 3. Depending on the results of the above-mentioned tests further recommendations will be given. Daniel Ricardo M.D., M.S.P.H. Neurologist & Clinical Neurophysiologist Daniel Ricardo MD October 14, 2019 14:46
--- NOTE | 2019-10-14 15:11 | Surgery Progress Note ---
Surgery Progress Note Subjective Additional Comments ill appearing comfort care ?extubation Objective Last 24 Hour Vital Signs Date Time Temp Pulse Resp B/P (MAP) Pulse Ox O2 Delivery O2 Flow Rate FiO2 10/14/19 14:00 86 18 129/70 (89) 100 10/14/19 13:00 86 20 40 10/14/19 13:00 91 21 125/62 (83) 99 10/14/19 12:00 Mechanical Ventilator 10/14/19 12:00 98.4 86 16 114/57 (76) 99 10/14/19 12:00 87 10/14/19 12:00 40 10/14/19 11:46 94 34 128/64 (85) 10/14/19 11:00 81 15 114/44 (67) 98 10/14/19 11:00 90 24 40 10/14/19 10:00 79 14 102/48 (66) 98 10/14/19 09:21 83 20 40 10/14/19 09:00 82 15 103/49 (67) 98 10/14/19 08:27 83 117/54 10/14/19 08:00 98.4 79 14 117/54 (75) 100 10/14/19 08:00 78 10/14/19 08:00 Mechanical Ventilator 10/14/19 08:00 40 10/14/19 07:00 79 14 119/49 (72) 88 10/14/19 06:56 121 25 97 Mechanical Ventilator 40 10/14/19 06:55 121 25 40 10/14/19 06:30 80 19 10/14/19 06:00 80 15 113/56 (75) 92 10/14/19 05:25 82 16 40 10/14/19 05:00 79 16 119/53 (75) 86 10/14/19 04:00 40 10/14/19 04:00 98.5 82 15 140/66 (90) 92 10/14/19 04:00 Mechanical Ventilator 10/14/19 04:00 80 10/14/19 03:30 80 15 40 10/14/19 03:00 76 16 119/51 (73) 100 10/14/19 02:00 82 15 114/49 (70) 100 10/14/19 01:30 84 14 40 10/14/19 01:00 77 17 108/51 (70) 98 10/14/19 00:00 Mechanical Ventilator 10/14/19 00:00 99.5 80 16 109/69 (82) 100 10/13/19 23:29 80 15 40 10/13/19 23:00 78 14 110/48 (68) 100 10/13/19 22:00 79 16 111/49 (69) 96 10/13/19 21:09 78 14 40 10/13/19 21:00 80 14 112/55 (74) 100 10/13/19 20:58 79 112/55 10/13/19 20:00 40 10/13/19 20:00 Mechanical Ventilator 10/13/19 20:00 99.0 80 14 112/55 (74) 100 10/13/19 20:00 82 10/13/19 19:30 77 16 40 10/13/19 19:00 79 21 118/48 (71) 100 10/13/19 18:00 81 14 115/49 (71) 100 10/13/19 17:19 78 13 40 10/13/19 17:00 78 15 107/59 (75) 100 10/13/19 17:00 78 16 107/59 (75) 100 10/13/19 16:00 79 15 113/58 (76) 100 10/13/19 16:00 40 10/13/19 16:00 79 10/13/19 16:00 79 15 113/58 (76) 100 10/13/19 16:00 Mechanical Ventilator 10/13/19 16:00 78 19 113/58 (76) 100 10/13/19 15:22 82 17 40 I&O Intake and Output 10/13/19 10/14/19 19:00 07:00 Intake Total 870 ml 870 ml Output Total 495 ml 490 ml Balance 375 ml 380 ml Intake Free Water 150 ml Tube Feeding 720 ml 720 ml Other 150 ml Output Urine Total 495 ml 490 ml # Bowel Movements 1 3 Dressing: other Wound: other Drains: other Cardiovascular: RSR Respiratory: decreased breath sounds Abdomen: soft, non-tender, present bowel sounds Extremities: no cyanosis Laboratory Tests Test 10/14/19 04:25 White Blood Count 10.8 K/UL (4.8-10.8) Red Blood Count 2.96 M/UL (4.70-6.10) L Hemoglobin 7.8 G/DL (14.2-18.0) L Hematocrit 23.7 % (42.0-52.0) L Mean Corpuscular Volume 80 FL (80-99) Mean Corpuscular Hemoglobin 26.3 PG (27.0-31.0) L Mean Corpuscular Hemoglobin Concent 32.8 G/DL (32.0-36.0) Red Cell Distribution Width 16.3 % (11.6-14.8) H Platelet Count 391 K/UL (150-450) Mean Platelet Volume 5.3 FL (6.5-10.1) L Neutrophils (%) (Auto) % (45.0-75.0) Lymphocytes (%) (Auto) % (20.0-45.0) Monocytes (%) (Auto) % (1.0-10.0) Eosinophils (%) (Auto) % (0.0-3.0) Basophils (%) (Auto) % (0.0-2.0) Differential Total Cells Counted 100 Neutrophils % (Manual) 75 % (45-75) Lymphocytes % (Manual) 12 % (20-45) L Monocytes % (Manual) 9 % (1-10) Eosinophils % (Manual) 4 % (0-3) H Basophils % (Manual) 0 % (0-2) Band Neutrophils 0 % (0-8) Platelet Estimate Adequate Platelet Morphology Normal Hypochromasia 3+ Anisocytosis 1+ Sodium Level 137 MMOL/L (136-145) Potassium Level 5.5 MMOL/L (3.5-5.1) H Chloride Level 102 MMOL/L (98-107) Carbon Dioxide Level 28 MMOL/L (21-32) Anion Gap 7 mmol/L (5-15) Blood Urea Nitrogen 34 mg/dL (7-18) H Creatinine 1.0 MG/DL (0.55-1.30) Estimat Glomerular Filtration Rate > 60 mL/min (>60) Glucose Level 138 MG/DL (74-106) H Calcium Level 8.3 MG/DL (8.5-10.1) L Total Bilirubin 0.6 MG/DL (0.2-1.0) Aspartate Amino Transf (AST/SGOT) 65 U/L (15-37) H Alanine Aminotransferase (ALT/SGPT) 40 U/L (12-78) Alkaline Phosphatase 277 U/L (46-116) H Total Protein 6.2 G/DL (6.4-8.2) L Albumin 1.3 G/DL (3.4-5.0) L Globulin 4.9 g/dL Albumin/Globulin Ratio 0.3 (1.0-2.7) L Plan Problems: (1) UTI (urinary tract infection) (2) Acute respiratory failure Assessment & Plan: There is infiltrate suspected in the right perihilar region obscuring the right hilum. There is a hazy opacity that may partially be accounted for by pleural fluid on the right. Reticular densities are present on the left in the perihilar aspect of the lung. Endotracheal tube is in good position just above the anselmo. Heart size is normal. IMPRESSION: Suspected perihilar airspace disease in the right lung suspicious for pneumonia. Reticular nodular infiltrate in the left lung noted also. Right pleural effusion suspected. Endotracheal tube in good position cont vents support Lungs: Similar bilateral interstitial prominence, greater on the right. Stable right perihilar, mid and lower lung opacities. Similar left lung base opacity. Pleural space: Small left pleural effusion is stable. Loculated right pleural effusion is stable. No pneumothorax. Heart: Unremarkable. No cardiomegaly. Mediastinum: Unremarkable. Bones/joints: Unremarkable. Tubes, lines and devices: Endotracheal tube has been pulled back and is 10 cm above the anselmo near the thoracic inlet. IMPRESSION: Endotracheal tube has been pulled back and is 10 cm above the anselmo near the thoracic inlet. Remainder findings are stable. may need thoracentesis soon Moderate size right pleural effusion with right upper and lower lobe atelectasis/consolidation, as well as mild pulmonary edema.. 1. Patchy opacities throughout the right lung left mid and lower lung, similar to slightly increased. Possible small bilateral pleural effusions. 2. Endotracheal tube terminates in the region of the lower thoracic trachea above the anselmo. consider trach code status? (3) Sepsis Assessment & Plan: Pt cachetic and presented on admission with multiple pressure injuries. Partial thickness pressure injury Cleft of L ear(L)1.2cm x (W)0.4cm. Base of wound moist and viable with small amt sanguineous exudate. Partial thickness pressure injury cleft of R ear(L)0.5cm x (W)0.7cm. Base of wound moist and viable Periwound erythematous.Small amt sanguineous exudate noted. Sacral DTPI(L)5cm x (W)10.5cm. Base of injury is purple with maroon borders. Coccygeal bony protrusion with darker skin tone, and small opening noted to R gluteus (L)0.5cm x (W)0.5cm within base of injury. No further skin breakdown periwound. Intact blood blister noted to R 1st metatarsal head(L)1.1cm x (W)2.5cm. DTPI noted to L heel extending into plantar aspect. Base of injury presents as an intact blood filled blister. Periwound is boggy with non-blanching erythema. R heel is boggy but blanchable. wounds unlikely etiology of sepsis respiratory but given current condition high risk for breakdown and worsening will monitor closely discussed with RN and staff great care being provided coded acls intubated in ICU prognosis guarded Tx.Plan: Apply Betadine to clefts of R and L ears. Pad oxygen tubing with gauze and keep oxygen tubing loose. Apply Moisture Barrier Paste to Sacrum. Cover with Optifoam drsg. Change every 3 days and prn. Apply Betadine to L heel. Cover with Optifoam drsg. Change every 3 days and prn. Apply Betadine to R 1st metatarsal head. Cover with Optifoam drsg. Change every 3 days and prn. Apply Cavilon Skin Barrier R heel. Cover with Optifoam drsg. Change every 7 days and prn. Reposition at least every 2hours or as tolerated. Off-load heels with pillow. 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 * Increased kcal/prot intake needs R/T suspected significant wt loss and underweight status, wounds as evidenced by 10lbs/6.7% wt loss in 1 month, 76% IBW w/ BMI of 18.4, admitted w/ DTPI wound @ sacrum, Lt heel, partial thickness pressure injury cleft of R L ear. CURRENT TF:Osmolite 1.2 @ 60ml/hr x 22 hrs ENTERAL NUTRITION RECOMMENDATIONS: Osmolite 1.2 @ 60ml/hr x 22 hrs + Prosource x 1 to provide 1320ml, 1584kcal, 73g +11g prot, 1082ml free water - Add Prosource x 1 to meet protein needs - HOLD 1 hr before and after synthroid meds. add Prosource 1 pack daily to better meet est pro needs - Flush per MD/ HOB over 30 degrees WITH ELEV BG, rec TF change to Glucerna 1.2 w/ a goal of 60ml/hr x22 hrs to provide 1320ml, 1584kcal, 79g prot ADDITIONAL RECOMMENDATIONS: * PER SNF: HT=6'1" WT= 139lbs ("August weight" from SNF) -> calibrated bedscale wt * Monitor K, need for TF change (K 5.9 upon adm, now wnl) * Wound care: add Vit C 500mg QD + Wesley 1pkt BID via PEG * Monitor BGs, need for NISS: h/o DM per MD (checking A1C not suggested given low hgb) (19) Encounter for PEG (percutaneous endoscopic gastrostomy) (20) At high risk for aspiration (21) Pleural effusion (22) Suspected COVID-19 virus infection Jan Mora October 14, 2019 15:11
--- NOTE | 2019-10-14 15:54 | Internal Med Progress Note ---
Subjective Physician Name Lamont Hayes Attending Physician Lamont Hayes MD Current Medications Medications (Trade) Dose Ordered Sig/Kike Route PRN Reason Start Time Stop Time Status Last Admin Dose Admin Amlodipine Besylate (Norvasc) 2.5 mg BID@0900,2100 NG 10/14/19 21:00 10/22/19 08:59 Docusate Sodium (Colace) 100 mg TID GT 10/05/19 13:00 11/03/19 08:59 10/14/19 08:26 Heparin Sodium (Porcine) (Heparin 5000 units/ml) 5,000 units EVERY 12 HOURS SUBQ 09/24/19 09:00 10/22/19 08:59 10/14/19 08:28 Lansoprazole (Prevacid) 30 mg DAILY GT 10/04/19 09:00 11/03/19 08:59 10/14/19 08:26 Polyethylene Glycol (Miralax) 17 gm DAILY PRN ORAL Constipation 10/13/19 11:30 11/12/19 11:29 Quetiapine Fumarate (SEROqueL) 25 mg Q8H PRN NG Agitation 09/24/19 02:35 10/30/19 02:34 10/08/19 20:45 Sennosides (Senokot) 8.6 mg DAILY PRN ORAL Constipation 10/06/19 10:15 11/05/19 10:14 10/07/19 21:56 Allergies: Coded Allergies: PENICILLINS (Verified Allergy, Unknown, 10/27/18) tolretas cephalosporins Subjective in ICU, intubated, not responsive, unable to open eyes with stimulation. K: 5.5 Objective Last Vital Signs Date Time Temp Pulse Resp B/P (MAP) Pulse Ox O2 Delivery O2 Flow Rate FiO2 10/14/19 15:00 90 22 154/74 (100) 100 10/14/19 13:00 40 10/14/19 12:00 Mechanical Ventilator 10/14/19 12:00 98.4 Laboratory Tests Test 10/14/19 04:25 White Blood Count 10.8 K/UL (4.8-10.8) Red Blood Count 2.96 M/UL (4.70-6.10) L Hemoglobin 7.8 G/DL (14.2-18.0) L Hematocrit 23.7 % (42.0-52.0) L Mean Corpuscular Volume 80 FL (80-99) Mean Corpuscular Hemoglobin 26.3 PG (27.0-31.0) L Mean Corpuscular Hemoglobin Concent 32.8 G/DL (32.0-36.0) Red Cell Distribution Width 16.3 % (11.6-14.8) H Platelet Count 391 K/UL (150-450) Mean Platelet Volume 5.3 FL (6.5-10.1) L Neutrophils (%) (Auto) % (45.0-75.0) Lymphocytes (%) (Auto) % (20.0-45.0) Monocytes (%) (Auto) % (1.0-10.0) Eosinophils (%) (Auto) % (0.0-3.0) Basophils (%) (Auto) % (0.0-2.0) Differential Total Cells Counted 100 Neutrophils % (Manual) 75 % (45-75) Lymphocytes % (Manual) 12 % (20-45) L Monocytes % (Manual) 9 % (1-10) Eosinophils % (Manual) 4 % (0-3) H Basophils % (Manual) 0 % (0-2) Band Neutrophils 0 % (0-8) Platelet Estimate Adequate Platelet Morphology Normal Hypochromasia 3+ Anisocytosis 1+ Sodium Level 137 MMOL/L (136-145) Potassium Level 5.5 MMOL/L (3.5-5.1) H Chloride Level 102 MMOL/L (98-107) Carbon Dioxide Level 28 MMOL/L (21-32) Anion Gap 7 mmol/L (5-15) Blood Urea Nitrogen 34 mg/dL (7-18) H Creatinine 1.0 MG/DL (0.55-1.30) Estimat Glomerular Filtration Rate > 60 mL/min (>60) Glucose Level 138 MG/DL (74-106) H Calcium Level 8.3 MG/DL (8.5-10.1) L Total Bilirubin 0.6 MG/DL (0.2-1.0) Aspartate Amino Transf (AST/SGOT) 65 U/L (15-37) H Alanine Aminotransferase (ALT/SGPT) 40 U/L (12-78) Alkaline Phosphatase 277 U/L (46-116) H Total Protein 6.2 G/DL (6.4-8.2) L Albumin 1.3 G/DL (3.4-5.0) L Globulin 4.9 g/dL Albumin/Globulin Ratio 0.3 (1.0-2.7) L Intake and Output 10/13/19 10/14/19 19:00 07:00 Intake Total 870 ml 870 ml Output Total 495 ml 490 ml Balance 375 ml 380 ml Intake Free Water 150 ml Tube Feeding 720 ml 720 ml Other 150 ml Output Urine Total 495 ml 490 ml # Bowel Movements 1 3 Objective General: not responsive, able to open eyes with deep stimulation, Intubated. HEENT: NCAT, sclera anicteric, PERRL, ET tube. Neck: Supple, no significant jugular venous distention, Lungs: Mechanical Breath sound, Decrease air at bases, no Wheeze or Rales. Heart: Regular rate and rhythm, normal S1/S2, no murmurs, Abdomen: soft, nontender, nondistended. Normoactive bowel sounds, + PEG : Muniz cath. Extremities: No Cyanosis or clubbing , Upper extremities edema. Neuro: unable to move extremities, contracted lower extremities. Skin: warm, no rash. H to sacral decubitus ulcer. Assessment/Plan Assessment/Plan ASSESSMENT: This is an 84-year-old male with: 1. Acute respiratory failure with right pneumonia. 2. Urinary tract infection. 3. Right pleural effusion. 4. Esophageal mass. 5. Dysphagia. 6. Diabetes. 7. Alzheimer's dementia. 8. Cerebrovascular disease. 9. Hypothyroidism. 10. Seizure disorder. 11. Iron deficiency anemia. 12. sepsis. TREATMENT: 1. Right side Pneumonia. A Pulmonary consultation has been obtained with Dr. Vania Hui. The patient underwent thoracentesis during previous hospitalization. We will follow recommendation of Pulmonary. Abx: Meropenem IV, ID: Dr. Erickson 2. Urinary tract infection. 3. Right pleural effusion. As above, a Pulmonary consultation has been obtained with Dr. Vania Hui. The patient may require thoracentesis during this hospitalization. 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 A Gastroenterology consultation has been obtained with Dr. Darrick Rosario. 5. Dysphagia. The patient is status post PEG placement on 08/08/2019 at [facility] by Dr. Darrick Rosario. 6. Diabetes type 2. A NovoLog sliding scale has been instituted. 7. Alzheimer's dementia. 8. Cerebrovascular disease, status post cerebrovascular accident. 9. Hypothyroidism. Continue levothyroxine as above. 10. Seizure disorder. 11. Iron deficiency anemia. CODE STATUS: DNR. Tolerated tube feeding at rate of 60 cc/hr DVT Prophylaxis : Heparin SQ Levaquin #7 --> Meropenem 10/05 SP IV Vancomycin #6 09/19 SPcefepime # 09/09 SP vanc #4 ( Cr increased) Lamont Hayes MD October 14, 2019 15:54
[2019-10-15] VITALS (24 sets, daily range): BP systolic 93–131; BP diastolic 43–71
[2019-10-15 04:42] LABS: EOSINOPHILS % (AUTO) 4.2 % (0.0-3.0); HEMATOCRIT 26.8 % (42.0-52.0); HEMOGLOBIN 8.6 G/DL (14.2-18.0); LYMPHOCYTES % (AUTO) 11.1 % (20.0-45.0); MEAN CORPUSCULAR VOLUME 80 FL (80-99); NEUTROPHILS % (AUTO) 76.7 % (45.0-75.0); PLATELET COUNT 505 K/UL (150-450); RED BLOOD COUNT 3.33 M/UL (4.70-6.10); RED CELL DISTRIBUTION WIDTH 15.8 % (11.6-14.8); WHITE BLOOD COUNT 11.9 K/UL (4.8-10.8)
[2019-10-15 05:19] LABS: ALANINE AMINOTRANSFERASE 43 U/L (12-78); ALBUMIN 1.4 G/DL (3.4-5.0); ALBUMIN/GLOBULIN RATIO 0.3 (1.0-2.7); ALKALINE PHOSPHATASE 292 U/L (46-116); ANION GAP 8 mmol/L (5-15); ASPARTATE AMINO TRANSFERASE 66 U/L (15-37); BILIRUBIN,TOTAL 0.6 MG/DL (0.2-1.0); BLOOD UREA NITROGEN 37 mg/dL (7-18); CALCIUM 8.6 MG/DL (8.5-10.1); CARBON DIOXIDE 26 MMOL/L (21-32); CHLORIDE 101 MMOL/L (98-107); PHOSPHORUS 4.6 MG/DL (2.5-4.9); SODIUM 135 MMOL/L (136-145)
[2019-10-15 05:53] LABS: POTASSIUM 6.3 MMOL/L (3.5-5.1)
[2019-10-15] MEDS ORDERED: Sodium Polystyrene Sulfonate 15gm Powder GT SCH (08:00)
[2019-10-15] MEDS: Docusate 100mg/10ml Liq GT SCH ×3 (08:16→17:45)
[2019-10-15] MEDS: Heparin 5000 units/ml inj SUBQ SCH ×2 (08:18→20:54)
[2019-10-15] MEDS ORDERED: D5NS 1,000 ML IV ONE (09:00)
[2019-10-15] MEDS ORDERED: Sodium Polystyrene Sulfonate 15gm Powder ORAL SCH (09:00)
[2019-10-15] MEDS ORDERED: Albuterol/Ipratropium 3ml neb HHN PRN (09:30)
--- NOTE | 2019-10-15 09:31 | Pulmonolgy Critical Care Note ---
Critical Care - Asmt/Plan Assessment/Plan: ASSESSMENT Sepsis Acute respiratory failure requiring intubation, s/p extubation s/p CP arrest and reintubation 09/23 Failure to wean Pseudomonas and Proteus pneumonia recurrent pleural effusion, s/p thoracentesis 09/18 and 09/27 Acute kidney injury, -secondary to dehydration Suspected COVID 19 infection -ruled out x 2 Hypothyroidism with elevated TSH Severe anemia Transaminitis Dysphagia, feeding by G-tube, Cerebrovascular disease with hx of CVA Toxic metabolic encephalopathy Diabetes mellitus Severe protein calorie malnutrition Multiply pressure injury, present on admission Seizure disorder Alzheimer dementia Anemia DNR/DNI status ( since 10/11) PLAN of CARE ICU vent support, pulmonary toilet CXR 09/30 noted, on weaning protocol, continue not able to wean code statuis changed to DNR/DNI 10/11 family declined trach s/p 09/[address] effusion - 2050 ml, 09/27 -2300 ml, pleural fluid cx NGT x2 pathology - NGT for malignant cells x2 initial CXR with near complete resolution, no complication last CXR 10/09 with increasing R pleural effusion fup with CXR Monday 10/16 HONEY CoV PCR x 2 -NGT; off isolation influenza screen NGT BCX NGT SCX + Pseudomonas, Proteus, repeated SCX 09/25 + Pseudomonas abx as per ID UCX + Abi , likely colonization completed abx as per ID aspiration precautions, GTF , protein supplements as per RD monitor H&H with goal to keep Hgb above 7 BS management trend LFT per neurologist pt with severe bilateral cerebral dysfunction 2 to old bilateral CV disease in addition superimposed encephalopathy related to multiply hypoxic insults and other toxic metabolic imbalances CT of the head showed multiple old infarcts, but negative for acute IV pathology. EEG results pending creat stable avoid nephrotoxics continue Protonix monitor HH at baseline and consider GI eval if further drop elevated D dimer, venous Duplex BLE negative troponin NGT wound care as per surgeon recommendation Synthroid dose uptitrated, repeat TSH in 3 wks supportive care now DNR/DNI status since declining trach ? terminal extubation need phone family meeting re further goals of care case discussed and evaluated by supervising physician Critical Care - Objective Last 24 Hour Vital Signs Date Time Temp Pulse Resp B/P (MAP) Pulse Ox O2 Delivery O2 Flow Rate FiO2 10/15/19 08:16 92 113/43 10/15/19 07:10 94 13 100 10/15/19 07:00 91 15 101/50 (67) 100 10/15/19 06:30 89 19 10/15/19 06:00 94 15 107/54 (71) 100 10/15/19 05:00 95 15 98/53 (68) 100 10/15/19 04:41 94 15 100 10/15/19 04:00 98.9 92 14 108/63 (78) 100 10/15/19 04:00 Mechanical Ventilator 10/15/19 04:00 40 10/15/19 04:00 98 10/15/19 03:00 91 16 106/56 (73) 100 10/15/19 02:40 93 15 100 10/15/19 02:00 96 17 127/62 (83) 100 10/15/19 01:06 94 24 40 10/15/19 01:00 94 38 131/65 (87) 100 10/15/19 00:00 98.8 87 17 129/63 (85) 98 10/15/19 00:00 86 10/15/19 00:00 40 10/15/19 00:00 Mechanical Ventilator 10/14/19 23:16 85 15 40 10/14/19 23:00 85 18 125/62 (83) 95 10/14/19 22:00 84 18 128/60 (82) 98 10/14/19 21:09 86 19 40 10/14/19 21:00 86 18 125/64 (84) 100 10/14/19 20:41 87 124/64 10/14/19 20:00 40 10/14/19 20:00 Mechanical Ventilator 10/14/19 20:00 98.6 88 19 137/61 (86) 100 10/14/19 20:00 87 10/14/19 19:00 86 20 129/72 (91) 100 10/14/19 18:59 87 20 40 10/14/19 18:00 85 20 124/64 (84) 100 10/14/19 17:00 88 18 136/64 (88) 100 10/14/19 16:51 87 21 40 10/14/19 16:00 40 10/14/19 16:00 98.2 89 20 133/67 (89) 100 10/14/19 16:00 Mechanical Ventilator 10/14/19 16:00 89 10/14/19 15:00 88 22 40 10/14/19 15:00 90 22 154/74 (100) 100 10/14/19 14:00 86 18 129/70 (89) 100 10/14/19 13:00 86 20 40 10/14/19 13:00 91 21 125/62 (83) 99 10/14/19 12:00 Mechanical Ventilator 10/14/19 12:00 98.4 86 16 114/57 (76) 99 10/14/19 12:00 87 10/14/19 12:00 40 10/14/19 11:46 94 34 128/64 (85) 10/14/19 11:00 81 15 114/44 (67) 98 10/14/19 11:00 90 24 40 10/14/19 10:00 79 14 102/48 (66) 98 Objective: Condition: critical, intubated on vent AC mode HEENT: atraumatic, normocephalic, OP with ET in place, intact Lungs: overall clear Heart: HR/BP stable Abdomen: soft, active bowel sounds, G tube Extremities: no C/C/E Critical Care - Subjective ROS Limited/Unobtainable: Yes Interval Events: remains intubated, low grade fevers 10/13 mild leukocytosis code status since 10/11 DNR/DNI Condition: critical IV Access: peripheral EKG Rhythm: Sinus Rhythm FI02: 100 Vent Support Breath Rate: 12 Vent Support Mode: AC Vent Tidal Volume: 550 Sputum Amount: Small PEEP: 5.0 PIP: 22 Secretions: small amount, white color, thick consistency Fluids: D5NS at 100 Tube Feeding Amount: 60 I&O: Intake and Output 10/14/19 10/15/19 19:00 07:00 Intake Total 900 ml 980 ml Output Total 335 ml 505 ml Balance 565 ml 475 ml Intake Free Water 180 ml 200 ml Tube Feeding 720 ml 720 ml Other 60 ml Output Urine Total 335 ml 505 ml # Bowel Movements 5 CXR: CXR 10/09 \ Markedly increased and now large right pleural effusion, There is probably some atelectasis on the right as well in addition to the passive atelectasis from pleural fluid Improved aeration of the left lung ET-Tube: 25.0 ET Position: 26 Miranda Pimentel STERILIZATION TECHNICIAN October 15, 2019 09:31
--- NOTE | 2019-10-15 12:00 | Nephrology Progress Note ---
Assessment/Plan Problem List: (1) RAMAN (acute kidney injury) Assessment: Serum creatinine normalized with hydration (2) Dehydration (3) Suspected COVID-19 virus infection (4) Anemia (5) Sepsis (6) Diabetes mellitus (7) Hypothyroidism Assessment - Acute renal failure - Severe anemia - Sepsis, pneumonia, acute respiratory failure, suspected: Viewed 19 virus infection - Diabetes mellitus - Hypothyroidism - Feeding by G-tube - Squamous cell esophageal cancer - History of CVA (cerebrovascular accident) Plan October 14: Discussed with KAI Figueroa Serum potassium high, I believe it most likely due to hemolysis because: BUN and creatinine levels not indicative of worsening renal failure, urine output well maintained At this time will give fluid boluses and 1 dose of Kayexalate and recheck renal parameters tomorrow October 8: Potassium of 5.5 likely hemolyzed Discussed with RN to adjust Muniz catheter and do a bedside bladder ultrasound to assess if there is any urinary retention October 7: Remains stable from renal standpoint to view Remains intubated Continue per consultants Not much to add from renal standpoint. October 6: Remains stable from renal standpoint of view Remains intubated Data reviewed October 5: Dose unchanged from renal standpoint to view Remains intubated October 4: Stable from renal standpoint of view Hemoglobin higher today October 3 Discussed with RN Remains intubated on ventilator Hemoglobin is drifting down Will reorder iron panel Remains stable from renal standpoint of view Remains full code October 2: Discussed with RN. Patient remains intubated. Family declined comfort care. Weaning trial is being attempted Main stable from renal standpoint of view We will order labs for tomorrow. Previously Patient was coded early September 23 morning and back in ICU intubated Serum creatinine miguel to 1.5, now back to normal Stable from renal standpoint of view at this point He is status remains full code Tested negative for COVID-19 Previously: Pneumonia SARS-CoV neg x2 MRSA screen pos sp cx: PSA and proteus Changes Seroquel to "as needed" due to bradycardia Discontinue IV fluid Monitor renal parameters, serum creatinine Adjust electrolytes with supplements Increase Synthroid dose Avoid nephrotoxic's as possible Ventilator management Urine studies Per orders Subjective ROS Limited/Unobtainable: Yes Objective Objective Last 24 Hour Vital Signs Date Time Temp Pulse Resp B/P (MAP) Pulse Ox O2 Delivery O2 Flow Rate FiO2 10/15/19 11:00 87 15 96/46 (63) 100 5/9/20 11:00 88 17 100 10/15/19 10:00 90 17 109/46 (67) 100 10/15/19 09:00 91 16 108/45 (66) 100 10/15/19 08:16 92 113/43 10/15/19 08:00 Mechanical Ventilator 10/15/19 08:00 99.0 88 14 113/43 (66) 100 10/15/19 08:00 40 10/15/19 08:00 89 10/15/19 07:10 94 13 100 10/15/19 07:00 91 15 101/50 (67) 100 10/15/19 06:30 89 19 10/15/19 06:00 94 15 107/54 (71) 100 10/15/19 05:00 95 15 98/53 (68) 100 10/15/19 04:41 94 15 100 10/15/19 04:00 98.9 92 14 108/63 (78) 100 10/15/19 04:00 Mechanical Ventilator 10/15/19 04:00 40 10/15/19 04:00 98 10/15/19 03:00 91 16 106/56 (73) 100 10/15/19 02:40 93 15 100 10/15/19 02:00 96 17 127/62 (83) 100 10/15/19 01:06 94 24 40 10/15/19 01:00 94 38 131/65 (87) 100 10/15/19 00:00 98.8 87 17 129/63 (85) 98 10/15/19 00:00 86 10/15/19 00:00 40 10/15/19 00:00 Mechanical Ventilator 10/14/19 23:16 85 15 40 10/14/19 23:00 85 18 125/62 (83) 95 10/14/19 22:00 84 18 128/60 (82) 98 10/14/19 21:09 86 19 40 10/14/19 21:00 86 18 125/64 (84) 100 10/14/19 20:41 87 124/64 10/14/19 20:00 40 10/14/19 20:00 Mechanical Ventilator 10/14/19 20:00 98.6 88 19 137/61 (86) 100 10/14/19 20:00 87 10/14/19 19:00 86 20 129/72 (91) 100 10/14/19 18:59 87 20 40 10/14/19 18:00 85 20 124/64 (84) 100 10/14/19 17:00 88 18 136/64 (88) 100 10/14/19 16:51 87 21 40 10/14/19 16:00 40 10/14/19 16:00 98.2 89 20 133/67 (89) 100 10/14/19 16:00 Mechanical Ventilator 10/14/19 16:00 89 10/14/19 15:00 88 22 40 10/14/19 15:00 90 22 154/74 (100) 100 10/14/19 14:00 86 18 129/70 (89) 100 10/14/19 13:00 86 20 40 10/14/19 13:00 91 21 125/62 (83) 99 10/14/19 12:00 Mechanical Ventilator 10/14/19 12:00 98.4 86 16 114/57 (76) 99 10/14/19 12:00 87 10/14/19 12:00 40 Intake and Output 10/14/19 10/15/19 19:00 07:00 Intake Total 900 ml 980 ml Output Total 335 ml 505 ml Balance 565 ml 475 ml Intake Free Water 180 ml 200 ml Tube Feeding 720 ml 720 ml Other 60 ml Output Urine Total 335 ml 505 ml # Bowel Movements 5 Laboratory Tests 10/15/19 04:00: White Blood Count 11.9H, Red Blood Count 3.33L, Hemoglobin 8.6L, Hematocrit 26.8L, Mean Corpuscular Volume 80, Mean Corpuscular Hemoglobin 25.9L, Mean Corpuscular Hemoglobin Concent 32.3, Red Cell Distribution Width 15.8H, Platelet Count 505H, Mean Platelet Volume 5.4L, Neutrophils (%) (Auto) 76.7H, Lymphocytes (%) (Auto) 11.1L, Monocytes (%) (Auto) 7.0, Eosinophils (%) (Auto) 4.2H, Basophils (%) (Auto) 1.0, Sodium Level 135L, Potassium Level 6.3*H, Chloride Level 101, Carbon Dioxide Level 26, Anion Gap 8, Blood Urea Nitrogen 37H, Creatinine 1.0, Estimat Glomerular Filtration Rate > 60, Glucose Level 118H , Uric Acid 4.8, Calcium Level 8.6, Phosphorus Level 4.6, Magnesium Level 2.4, Total Bilirubin 0.6, Aspartate Amino Transf (AST/SGOT) 66H, Alanine Aminotransferase (ALT/SGPT) 43, Alkaline Phosphatase 292H, Total Protein 6.8, Albumin 1.4L, Globulin 5.4, Albumin/Globulin Ratio 0.3L Height (Feet): 5 Height (Inches): 11.00 Weight (Pounds): 140 General Appearance: no apparent distress EENT: other - Intubated on ventilator Cardiovascular: tachycardia Respiratory/Chest: decreased breath sounds Abdomen: soft Objective no change Clovis Benites MD October 15, 2019 12:00
--- NOTE | 2019-10-15 13:51 | Internal Med Progress Note ---
Subjective Date of Service: October 15, 2019 Physician Name Xander Bah Attending Physician Lamont Hayes MD Current Medications Medications (Trade) Dose Ordered Sig/Kike Route PRN Reason Start Time Stop Time Status Last Admin Dose Admin Albuterol/ Ipratropium (Albuterol/ Ipratropium) 3 ml Q4HRT PRN HHN sob 10/15/19 09:30 10/20/19 09:29 Dextrose/Sodium Chloride 1,000 ml @ 100 mls/hr Q10H ONCE IV 10/15/19 09:00 10/15/19 18:59 10/15/19 08:17 Docusate Sodium (Colace) 100 mg TID GT 10/05/19 13:00 11/03/19 08:59 10/15/19 13:23 Heparin Sodium (Porcine) (Heparin 5000 units/ml) 5,000 units EVERY 12 HOURS SUBQ 09/24/19 09:00 10/22/19 08:59 10/15/19 08:18 Hydralazine HCl (Apresoline) 10 mg Q4H PRN IV Blood pressure over 160 systol 10/15/19 12:00 01/13/20 11:59 Lansoprazole (Prevacid) 30 mg BID GT 10/15/19 18:00 11/03/19 08:59 Polyethylene Glycol (Miralax) 17 gm DAILY PRN ORAL Constipation 10/13/19 11:30 11/12/19 11:29 Quetiapine Fumarate (SEROqueL) 25 mg Q8H PRN NG Agitation 09/24/19 02:35 10/30/19 02:34 10/08/19 20:45 Sennosides (Senokot) 8.6 mg DAILY PRN ORAL Constipation 10/06/19 10:15 11/05/19 10:14 10/07/19 21:56 Allergies: Coded Allergies: PENICILLINS (Verified Allergy, Unknown, 10/27/18) tolretas cephalosporins ROS Limited/Unobtainable: Yes Subjective 84 YO M admitted with cough and congestion. Cover for Int Med-Dr Hayes. Reintubated 09/24/19 after cardiopulmonary arrest. ICU Objective Last Vital Signs Date Time Temp Pulse Resp B/P (MAP) Pulse Ox O2 Delivery O2 Flow Rate FiO2 10/15/19 12:00 98.9 89 18 97/50 (66) 100 10/15/19 12:00 40 10/15/19 08:00 Mechanical Ventilator Laboratory Tests Test 10/15/19 04:00 White Blood Count 11.9 K/UL (4.8-10.8) H Red Blood Count 3.33 M/UL (4.70-6.10) L Hemoglobin 8.6 G/DL (14.2-18.0) L Hematocrit 26.8 % (42.0-52.0) L Mean Corpuscular Volume 80 FL (80-99) Mean Corpuscular Hemoglobin 25.9 PG (27.0-31.0) L Mean Corpuscular Hemoglobin Concent 32.3 G/DL (32.0-36.0) Red Cell Distribution Width 15.8 % (11.6-14.8) H Platelet Count 505 K/UL (150-450) H Mean Platelet Volume 5.4 FL (6.5-10.1) L Neutrophils (%) (Auto) 76.7 % (45.0-75.0) H Lymphocytes (%) (Auto) 11.1 % (20.0-45.0) L Monocytes (%) (Auto) 7.0 % (1.0-10.0) Eosinophils (%) (Auto) 4.2 % (0.0-3.0) H Basophils (%) (Auto) 1.0 % (0.0-2.0) Sodium Level 135 MMOL/L (136-145) L Potassium Level 6.3 MMOL/L (3.5-5.1) *H Chloride Level 101 MMOL/L (98-107) Carbon Dioxide Level 26 MMOL/L (21-32) Anion Gap 8 mmol/L (5-15) Blood Urea Nitrogen 37 mg/dL (7-18) H Creatinine 1.0 MG/DL (0.55-1.30) Estimat Glomerular Filtration Rate > 60 mL/min (>60) Glucose Level 118 MG/DL (74-106) H Uric Acid 4.8 MG/DL (2.6-7.2) Calcium Level 8.6 MG/DL (8.5-10.1) Phosphorus Level 4.6 MG/DL (2.5-4.9) Magnesium Level 2.4 MG/DL (1.8-2.4) Total Bilirubin 0.6 MG/DL (0.2-1.0) Aspartate Amino Transf (AST/SGOT) 66 U/L (15-37) H Alanine Aminotransferase (ALT/SGPT) 43 U/L (12-78) Alkaline Phosphatase 292 U/L (46-116) H Total Protein 6.8 G/DL (6.4-8.2) Albumin 1.4 G/DL (3.4-5.0) L Globulin 5.4 g/dL Albumin/Globulin Ratio 0.3 (1.0-2.7) L Intake and Output 10/14/19 10/15/19 19:00 07:00 Intake Total 900 ml 980 ml Output Total 335 ml 505 ml Balance 565 ml 475 ml Intake Free Water 180 ml 200 ml Tube Feeding 720 ml 720 ml Other 60 ml Output Urine Total 335 ml 505 ml # Bowel Movements 5 Objective PHYSICAL EXAMINATION: GENERAL: The patient is a thin-appearing male, in no apparent distress. HEENT: Eyes, pupils are equal and responsive to light and accommodation. Extraocular movements are intact. NECK: Supple without lymphadenopathy. CHEST: Mech vent; Lungs are clear to auscultation bilaterally with decreased breath sounds on the right. There are no wheezes appreciated. ABDOMEN: Soft, nontender, and nondistended. Positive bowel sounds. No evidence of hepatosplenomegaly. Currently, no rebound or guarding noted. EXTREMITIES: Negative for clubbing, cyanosis, or edema. RECTAL/GENITAL: Not performed. NEUROLOGIC: Cranial nerves II through XII are grossly intact without focal deficits. Assessment/Plan Assessment/Plan ASSESSMENT: This is an 84-year-old male with: 1. 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 Urinary tract infection=jennifer 3. Right pleural effusion. 4. Esophageal mass. 5. Dysphagia. 6. Diabetes. 7. Alzheimer's dementia. 8. Cerebrovascular disease. 9. Hypothyroidism. 10. Seizure disorder. 11. Iron deficiency anemia. 13. Respiratory failure 14. S/P cardiopulmonary arrest 15. Anemia 16. Patient now DNR/DNI-see critical care note TREATMENT: 1. Right perihilar Pneumonia/pleural effusion. COVID 19 and Influenza negative. A Pulmonary consultation has been obtained with Dr. Vania Hui. S/P right thoracentesis 09/19/19. We will follow recommendation of Pulmonary. ID=Dr Marley ABX= S/P levofloxacin and vanco; continue Meropenem per ID 2. Urinary tract infection. . A urine culture =jennifer 3. Right pleural effusion. As above, a Pulmonary consultation has been obtained with Dr. Vania Hui. The patient may require thoracentesis during this hospitalization. 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 A Gastroenterology consultation has been obtained with Dr. Darrick Rosario. 5. Dysphagia. The patient is status post PEG placement on 08/08/2019 at [facility] by Dr. Darrick Rosario. 6. Diabetes type 2. A NovoLog sliding scale has been instituted. 7. Alzheimer's dementia. 8. Cerebrovascular disease, status post cerebrovascular accident. 9. Hypothyroidism. Continue levothyroxine as above. 10. Seizure disorder. 11. Iron deficiency anemia. 12. reintubated 09/24/19-see code blue note 13. S/P transfusion 2 units PRBC Xander Bah MD October 15, 2019 13:51
[2019-10-15] MEDS ORDERED: NS 500ML ONE (14:02)
[2019-10-15] MEDS ORDERED: D5NS 1000ml IV ONE (14:02)
[2019-10-15] MEDS ORDERED: 1/2 NS 1000ml IV ONE (14:19)
[2019-10-15] MEDS ORDERED: NS 275ml ONE ×2 (14:19→17:47)
--- NOTE | 2019-10-15 17:05 | GI Progress Note ---
Assessment/Plan Problems: (1) Encounter for PEG (percutaneous endoscopic gastrostomy) ICD Codes: Z43.1 - Encounter for attention to gastrostomy SNOMED: 839546027, 939232371 (2) Severe malnutrition ICD Codes: E43 - Unspecified severe protein-calorie malnutrition SNOMED: 54712190 (3) Anemia ICD Codes: D64.9 - Anemia, unspecified SNOMED: 326669017 (4) Dehydration ICD Codes: E86.0 - Dehydration SNOMED: 74933159 (5) Feeding by G-tube ICD Codes: Z93.1 - Gastrostomy status SNOMED: 439136064, 403455934, 293035941 Status: unchanged Status Narrative Discussed with Dr. Rosario. Assessment/Plan 1. Esophageal cancer. 2. Dysphagia. 3. Diabetes type 2. 4. Dementia. 5. CVA. 6. Hypothyroidism. 7. Seizure disorder. 8. Iron deficiency anemia. 9. Respiratory failure. 10. Dysphagia with G-tube Covid negative x2 stable H&H GT has been changed and working well GT flushes dietitian in put appreciated>>> TF Jevity senna abx per id pulm care bowel regimen recent labs and notes reviewed D/W the nurse will fu The patient was seen and examined at bedside and all new and available data was reviewed in the patients chart. I agree with the above findings, impression and plan. (Patient seen earlier today. Signature stamp does not reflect patient encounter time.). - Darrick Rosario MD Subjective Subjective limited Objective Last 24 Hour Vital Signs Date Time Temp Pulse Resp B/P (MAP) Pulse Ox O2 Delivery O2 Flow Rate FiO2 10/15/19 15:00 88 14 98/44 (62) 100 10/15/19 14:50 88 16 100 10/15/19 14:00 93 18 104/46 (65) 100 10/15/19 13:00 91 19 110/52 (71) 100 10/15/19 12:00 98.9 89 18 97/50 (66) 100 10/15/19 12:00 91 10/15/19 12:00 40 10/15/19 12:00 Mechanical Ventilator 10/15/19 11:00 87 15 96/46 (63) 100 10/15/19 11:00 88 17 100 10/15/19 10:00 90 17 109/46 (67) 100 10/15/19 09:00 91 16 108/45 (66) 100 10/15/19 08:16 92 113/43 10/15/19 08:00 Mechanical Ventilator 10/15/19 08:00 99.0 88 14 113/43 (66) 100 10/15/19 08:00 40 10/15/19 08:00 89 10/15/19 07:10 94 13 100 10/15/19 07:00 91 15 101/50 (67) 100 10/15/19 06:30 89 19 10/15/19 06:00 94 15 107/54 (71) 100 10/15/19 05:00 95 15 98/53 (68) 100 10/15/19 04:41 94 15 100 10/15/19 04:00 98.9 92 14 108/63 (78) 100 10/15/19 04:00 Mechanical Ventilator 10/15/19 04:00 40 10/15/19 04:00 98 10/15/19 03:00 91 16 106/56 (73) 100 10/15/19 02:40 93 15 100 10/15/19 02:00 96 17 127/62 (83) 100 10/15/19 01:06 94 24 40 10/15/19 01:00 94 38 131/65 (87) 100 10/15/19 00:00 98.8 87 17 129/63 (85) 98 10/15/19 00:00 86 10/15/19 00:00 40 10/15/19 00:00 Mechanical Ventilator 10/14/19 23:16 85 15 40 10/14/19 23:00 85 18 125/62 (83) 95 10/14/19 22:00 84 18 128/60 (82) 98 10/14/19 21:09 86 19 40 10/14/19 21:00 86 18 125/64 (84) 100 10/14/19 20:41 87 124/64 10/14/19 20:00 40 10/14/19 20:00 Mechanical Ventilator 10/14/19 20:00 98.6 88 19 137/61 (86) 100 10/14/19 20:00 87 10/14/19 19:00 86 20 129/72 (91) 100 10/14/19 18:59 87 20 40 10/14/19 18:00 85 20 124/64 (84) 100 Intake and Output 10/14/19 10/15/19 19:00 07:00 Intake Total 900 ml 980 ml Output Total 335 ml 505 ml Balance 565 ml 475 ml Intake Free Water 180 ml 200 ml Tube Feeding 720 ml 720 ml Other 60 ml Output Urine Total 335 ml 505 ml # Bowel Movements 5 Laboratory Tests Test 10/15/19 04:00 White Blood Count 11.9 K/UL (4.8-10.8) H Red Blood Count 3.33 M/UL (4.70-6.10) L Hemoglobin 8.6 G/DL (14.2-18.0) L Hematocrit 26.8 % (42.0-52.0) L Mean Corpuscular Volume 80 FL (80-99) Mean Corpuscular Hemoglobin 25.9 PG (27.0-31.0) L Mean Corpuscular Hemoglobin Concent 32.3 G/DL (32.0-36.0) Red Cell Distribution Width 15.8 % (11.6-14.8) H Platelet Count 505 K/UL (150-450) H Mean Platelet Volume 5.4 FL (6.5-10.1) L Neutrophils (%) (Auto) 76.7 % (45.0-75.0) H Lymphocytes (%) (Auto) 11.1 % (20.0-45.0) L Monocytes (%) (Auto) 7.0 % (1.0-10.0) Eosinophils (%) (Auto) 4.2 % (0.0-3.0) H Basophils (%) (Auto) 1.0 % (0.0-2.0) Sodium Level 135 MMOL/L (136-145) L Potassium Level 6.3 MMOL/L (3.5-5.1) *H Chloride Level 101 MMOL/L (98-107) Carbon Dioxide Level 26 MMOL/L (21-32) Anion Gap 8 mmol/L (5-15) Blood Urea Nitrogen 37 mg/dL (7-18) H Creatinine 1.0 MG/DL (0.55-1.30) Estimat Glomerular Filtration Rate > 60 mL/min (>60) Glucose Level 118 MG/DL (74-106) H Uric Acid 4.8 MG/DL (2.6-7.2) Calcium Level 8.6 MG/DL (8.5-10.1) Phosphorus Level 4.6 MG/DL (2.5-4.9) Magnesium Level 2.4 MG/DL (1.8-2.4) Total Bilirubin 0.6 MG/DL (0.2-1.0) Aspartate Amino Transf (AST/SGOT) 66 U/L (15-37) H Alanine Aminotransferase (ALT/SGPT) 43 U/L (12-78) Alkaline Phosphatase 292 U/L (46-116) H Total Protein 6.8 G/DL (6.4-8.2) Albumin 1.4 G/DL (3.4-5.0) L Globulin 5.4 g/dL Albumin/Globulin Ratio 0.3 (1.0-2.7) L Height (Feet): 5 Height (Inches): 11.00 Weight (Pounds): 140 General Appearance: no apparent distress Cardiovascular: normal rate Respiratory/Chest: normal breath sounds, no respiratory distress Abdominal Exam: soft Chani Arroyo NP October 15, 2019 17:05
--- NOTE | 2019-10-15 17:30 | Neurology Progress Note ---
Interim History Interim History Interim History Mr. Yaniv Vazquez is an 84-year-old, black gentleman, of unknown handedness, who does have a past history of hypertension, diabetes mellitus, dyslipidemia, hypothyroidism, esophageal cancer, cerebrovascular disease -the details of which are unknown to us, and Alzheimer's disease, was brought into the [facility] emergency room from his intermediate on 09/07/2019. Since he has been in the hospital he has had multiple endotracheal intubations followed by extubations followed by reintubation because of bouts of respiratory failure. As per his nurse there has been no significant change in his condition since I saw him last. He continues to open his eyes on deep painful stimulation, but is otherwise unresponsive. There is been no significant change in his medical or neurological condition. Review of Systems Neuro Review of Systems Unable to obtain. Objective Physical Exam Last Vital Signs Date Time Temp Pulse Resp B/P (MAP) Pulse Ox O2 Delivery O2 Flow Rate FiO2 10/15/19 17:00 88 18 98/53 (68) 100 10/15/19 16:00 98.7 10/15/19 16:00 40 10/15/19 12:00 Mechanical Ventilator Laboratory Tests Test 10/15/19 04:00 White Blood Count 11.9 K/UL (4.8-10.8) H Red Blood Count 3.33 M/UL (4.70-6.10) L Hemoglobin 8.6 G/DL (14.2-18.0) L Hematocrit 26.8 % (42.0-52.0) L Mean Corpuscular Volume 80 FL (80-99) Mean Corpuscular Hemoglobin 25.9 PG (27.0-31.0) L Mean Corpuscular Hemoglobin Concent 32.3 G/DL (32.0-36.0) Red Cell Distribution Width 15.8 % (11.6-14.8) H Platelet Count 505 K/UL (150-450) H Mean Platelet Volume 5.4 FL (6.5-10.1) L Neutrophils (%) (Auto) 76.7 % (45.0-75.0) H Lymphocytes (%) (Auto) 11.1 % (20.0-45.0) L Monocytes (%) (Auto) 7.0 % (1.0-10.0) Eosinophils (%) (Auto) 4.2 % (0.0-3.0) H Basophils (%) (Auto) 1.0 % (0.0-2.0) Sodium Level 135 MMOL/L (136-145) L Potassium Level 6.3 MMOL/L (3.5-5.1) *H Chloride Level 101 MMOL/L (98-107) Carbon Dioxide Level 26 MMOL/L (21-32) Anion Gap 8 mmol/L (5-15) Blood Urea Nitrogen 37 mg/dL (7-18) H Creatinine 1.0 MG/DL (0.55-1.30) Estimat Glomerular Filtration Rate > 60 mL/min (>60) Glucose Level 118 MG/DL (74-106) H Uric Acid 4.8 MG/DL (2.6-7.2) Calcium Level 8.6 MG/DL (8.5-10.1) Phosphorus Level 4.6 MG/DL (2.5-4.9) Magnesium Level 2.4 MG/DL (1.8-2.4) Total Bilirubin 0.6 MG/DL (0.2-1.0) Aspartate Amino Transf (AST/SGOT) 66 U/L (15-37) H Alanine Aminotransferase (ALT/SGPT) 43 U/L (12-78) Alkaline Phosphatase 292 U/L (46-116) H Total Protein 6.8 G/DL (6.4-8.2) Albumin 1.4 G/DL (3.4-5.0) L Globulin 5.4 g/dL Albumin/Globulin Ratio 0.3 (1.0-2.7) L Neurologic Exam Objective PHYSICAL EXAMINATION: GENERAL: He is a well-developed, relatively well-nourished, black gentleman, lying in an ICU bed, connected to ventilator, via an orotracheal tube. HEAD: Normocephalic and atraumatic. NECK: No neck rigidity was observed. EENT: Benign. NEUROLOGIC EXAMINATION: MENTAL STATUS EXAMINATION: He opened his eyes on applying deep painful stimuli. He was unable to interact in any other manner. Further mental status testing was impossible. SPEECH: Could not be tested. LANGUAGE: He did not follow simple commands or express himself in any way. CRANIAL NERVE EXAMINATION: II: He did not blink to threat. III, IV, : External ocular movements were present on oculocephalic maneuvers. The pupils were 3 mm in diameter and did not react to light. V-VII: The corneal reflexes were present but subdued bilaterally. VIII: He did not respond to loud sounds and had no nystagmus. IX-X: The gag reflex was absent on manipulating the endotracheal tube. XI: The sternocleidomastoids and trapezii did not function. XII: Could not be tested adequately. MOTOR SYSTEM: The tone was increased in all 4 extremities with a significant degree of spasticity. Examination of muscle mass revealed generalized muscle wasting with bilateral upper and lower extremity contractures in flexion. No movements was were noted even on applying deep painful stimuli. SENSORY EXAMINATION: He responded to deep pain with brief eye opening. COORDINATION: Could not be tested. REFLEXES: 0 at the biceps, triceps, brachioradialis, knees and ankles. The plantar responses were mute bilaterally. STANCE: Could not be tested. GAIT: Could not be tested. ABNORMAL MOVEMENTS: None Impression/Recommendations Diagnostic Impression DIAGNOSTIC IMPRESSION: 1. Mr. Yaniv Vazquez is an 84-year-old, black gentleman, of unknown handedness, who does have a past history of hypertension, diabetes mellitus, dyslipidemia, hypothyroidism, esophageal cancer, cerebrovascular disease -the details of which are unknown to us, and Alzheimer's disease, was brought into the [facility] emergency room from his intermediate on 09/07/2019. 2. Since he has been in the hospital he has had multiple endotracheal intubations followed by extubations followed by reintubation because of bouts of respiratory failure. His cognitive function has progressively worsened and thus this consultation was requested to evaluate the patient from a neurological point of view to help prognosticate. 3. As per his nurse there has been no significant change in his condition since I saw him last. He continues to open his eyes on deep painful stimulation, but is otherwise unresponsive. There is been no significant change in his medical or neurological condition. 4. On neurological examination, at this time, he does open his eyes on deep painful stimulation but rapidly closes them. He does not respond in any other manner. He does have brainstem function in the form of extraocular eye movements on oculocephalic maneuvers, and corneal reflexes. He has severe spasticity in all 4 extremities and significant wasting and contractures involving all 4 extremities. He does not move any of his extremities even on applying deep painful stimuli. His deep tendon reflexes are globally absent and his plantar responses mute. 5. The CT scan of the brain without contrast performed on 10/14/2019 revealed deep white matter changes consistent with chronic microvascular ischemic disease. In addition old subcortical infarcts was seen in the frontal deep white matter bilaterally, the left thalamus, and the right cerebellum. 6. The EEG performed on 10/14/2019 revealed slowing of the background in the delta and theta range with triphasic waveforms. These findings are consistent with a moderately severe encephalopathy with a metabolic component. 7. The patient's history and neurological examination are most consistent with severe bilateral cerebral dysfunction. This dysfunction is due to old bilateral cerebrovascular disease and in addition the superimposed encephalopathy related to multiple hypoxic insults and other toxic metabolic imbalances. 8. The prognosis for recovery of neurological function is relatively poor because of the underlying structural brain disease and superadded significant encephalopathy related to hypoxic brain insults. Recommendations RECOMMENDATIONS: 1. Continue present management. 2. In light of his poor prognosis, depending on the goals of care, a decision should be made as to how aggressive we want to be with his future care. Daniel Ricardo M.D., M.S.P.H. Neurologist & Clinical Neurophysiologist Daniel Ricardo MD October 15, 2019 17:30
--- NOTE | 2019-10-15 20:22 | Surgery Progress Note ---
Surgery Progress Note Subjective Additional Comments no acute events Objective Last 24 Hour Vital Signs Date Time Temp Pulse Resp B/P (MAP) Pulse Ox O2 Delivery O2 Flow Rate FiO2 10/15/19 20:00 40 10/15/19 20:00 89 17 114/53 (73) 100 10/15/19 19:00 89 17 108/52 (70) 100 10/15/19 19:00 90 19 40 10/15/19 18:00 89 19 93/49 (64) 100 10/15/19 17:00 88 18 98/53 (68) 100 10/15/19 17:00 86 16 128/71 (90) 100 10/15/19 16:00 Mechanical Ventilator 10/15/19 16:00 90 14 98/53 (68) 100 10/15/19 16:00 87 10/15/19 16:00 98.7 88 15 110/48 (68) 100 10/15/19 16:00 40 10/15/19 15:00 88 14 98/44 (62) 100 10/15/19 14:50 88 16 100 10/15/19 14:00 93 18 104/46 (65) 100 10/15/19 13:00 91 19 110/52 (71) 100 10/15/19 12:00 98.9 89 18 97/50 (66) 100 10/15/19 12:00 91 10/15/19 12:00 40 10/15/19 12:00 Mechanical Ventilator 10/15/19 11:00 87 15 96/46 (63) 100 10/15/19 11:00 88 17 100 10/15/19 10:00 90 17 109/46 (67) 100 10/15/19 09:00 91 16 108/45 (66) 100 10/15/19 08:16 92 113/43 10/15/19 08:00 Mechanical Ventilator 10/15/19 08:00 99.0 88 14 113/43 (66) 100 10/15/19 08:00 40 10/15/19 08:00 89 10/15/19 07:10 94 13 100 10/15/19 07:00 91 15 101/50 (67) 100 10/15/19 06:30 89 19 10/15/19 06:00 94 15 107/54 (71) 100 10/15/19 05:00 95 15 98/53 (68) 100 10/15/19 04:41 94 15 100 10/15/19 04:00 98.9 92 14 108/63 (78) 100 10/15/19 04:00 Mechanical Ventilator 10/15/19 04:00 40 10/15/19 04:00 98 10/15/19 03:00 91 16 106/56 (73) 100 10/15/19 02:40 93 15 100 10/15/19 02:00 96 17 127/62 (83) 100 10/15/19 01:06 94 24 40 10/15/19 01:00 94 38 131/65 (87) 100 10/15/19 00:00 98.8 87 17 129/63 (85) 98 10/15/19 00:00 86 10/15/19 00:00 40 10/15/19 00:00 Mechanical Ventilator 10/14/19 23:16 85 15 40 10/14/19 23:00 85 18 125/62 (83) 95 10/14/19 22:00 84 18 128/60 (82) 98 10/14/19 21:09 86 19 40 10/14/19 21:00 86 18 125/64 (84) 100 10/14/19 20:41 87 124/64 I&O Intake and Output 10/14/19 10/15/19 19:00 07:00 Intake Total 900 ml 980 ml Output Total 335 ml 505 ml Balance 565 ml 475 ml Intake Free Water 180 ml 200 ml Tube Feeding 720 ml 720 ml Other 60 ml Output Urine Total 335 ml 505 ml # Bowel Movements 5 Dressing: other Wound: other Drains: other Cardiovascular: RSR Respiratory: decreased breath sounds Abdomen: present bowel sounds Extremities: no cyanosis Laboratory Tests Test 10/15/19 04:00 White Blood Count 11.9 K/UL (4.8-10.8) H Red Blood Count 3.33 M/UL (4.70-6.10) L Hemoglobin 8.6 G/DL (14.2-18.0) L Hematocrit 26.8 % (42.0-52.0) L Mean Corpuscular Volume 80 FL (80-99) Mean Corpuscular Hemoglobin 25.9 PG (27.0-31.0) L Mean Corpuscular Hemoglobin Concent 32.3 G/DL (32.0-36.0) Red Cell Distribution Width 15.8 % (11.6-14.8) H Platelet Count 505 K/UL (150-450) H Mean Platelet Volume 5.4 FL (6.5-10.1) L Neutrophils (%) (Auto) 76.7 % (45.0-75.0) H Lymphocytes (%) (Auto) 11.1 % (20.0-45.0) L Monocytes (%) (Auto) 7.0 % (1.0-10.0) Eosinophils (%) (Auto) 4.2 % (0.0-3.0) H Basophils (%) (Auto) 1.0 % (0.0-2.0) Sodium Level 135 MMOL/L (136-145) L Potassium Level 6.3 MMOL/L (3.5-5.1) *H Chloride Level 101 MMOL/L (98-107) Carbon Dioxide Level 26 MMOL/L (21-32) Anion Gap 8 mmol/L (5-15) Blood Urea Nitrogen 37 mg/dL (7-18) H Creatinine 1.0 MG/DL (0.55-1.30) Estimat Glomerular Filtration Rate > 60 mL/min (>60) Glucose Level 118 MG/DL (74-106) H Uric Acid 4.8 MG/DL (2.6-7.2) Calcium Level 8.6 MG/DL (8.5-10.1) Phosphorus Level 4.6 MG/DL (2.5-4.9) Magnesium Level 2.4 MG/DL (1.8-2.4) Total Bilirubin 0.6 MG/DL (0.2-1.0) Aspartate Amino Transf (AST/SGOT) 66 U/L (15-37) H Alanine Aminotransferase (ALT/SGPT) 43 U/L (12-78) Alkaline Phosphatase 292 U/L (46-116) H Total Protein 6.8 G/DL (6.4-8.2) Albumin 1.4 G/DL (3.4-5.0) L Globulin 5.4 g/dL Albumin/Globulin Ratio 0.3 (1.0-2.7) L Plan Problems: (1) UTI (urinary tract infection) (2) Acute respiratory failure Assessment & Plan: There is infiltrate suspected in the right perihilar region obscuring the right hilum. There is a hazy opacity that may partially be accounted for by pleural fluid on the right. Reticular densities are present on the left in the perihilar aspect of the lung. Endotracheal tube is in good position just above the anselmo. Heart size is normal. IMPRESSION: Suspected perihilar airspace disease in the right lung suspicious for pneumonia. Reticular nodular infiltrate in the left lung noted also. Right pleural effusion suspected. Endotracheal tube in good position cont vents support Lungs: Similar bilateral interstitial prominence, greater on the right. Stable right perihilar, mid and lower lung opacities. Similar left lung base opacity. Pleural space: Small left pleural effusion is stable. Loculated right pleural effusion is stable. No pneumothorax. Heart: Unremarkable. No cardiomegaly. Mediastinum: Unremarkable. Bones/joints: Unremarkable. Tubes, lines and devices: Endotracheal tube has been pulled back and is 10 cm above the anselmo near the thoracic inlet. IMPRESSION: Endotracheal tube has been pulled back and is 10 cm above the anselmo near the thoracic inlet. Remainder findings are stable. may need thoracentesis soon Moderate size right pleural effusion with right upper and lower lobe atelectasis/consolidation, as well as mild pulmonary edema.. 1. Patchy opacities throughout the right lung left mid and lower lung, similar to slightly increased. Possible small bilateral pleural effusions. 2. Endotracheal tube terminates in the region of the lower thoracic trachea above the anselmo. consider trach code status? (3) Sepsis Assessment & Plan: Pt cachetic and presented on admission with multiple pressure injuries. Partial thickness pressure injury Cleft of L ear(L)1.2cm x (W)0.4cm. Base of wound moist and viable with small amt sanguineous exudate. Partial thickness pressure injury cleft of R ear(L)0.5cm x (W)0.7cm. Base of wound moist and viable Periwound erythematous.Small amt sanguineous exudate noted. Sacral DTPI(L)5cm x (W)10.5cm. Base of injury is purple with maroon borders. Coccygeal bony protrusion with darker skin tone, and small opening noted to R gluteus (L)0.5cm x (W)0.5cm within base of injury. No further skin breakdown periwound. Intact blood blister noted to R 1st metatarsal head(L)1.1cm x (W)2.5cm. DTPI noted to L heel extending into plantar aspect. Base of injury presents as an intact blood filled blister. Periwound is boggy with non-blanching erythema. R heel is boggy but blanchable. wounds unlikely etiology of sepsis respiratory but given current condition high risk for breakdown and worsening will monitor closely discussed with RN and staff great care being provided coded acls intubated in ICU prognosis guarded Tx.Plan: Apply Betadine to clefts of R and L ears. Pad oxygen tubing with gauze and keep oxygen tubing loose. Apply Moisture Barrier Paste to Sacrum. Cover with Optifoam drsg. Change every 3 days and prn. Apply Betadine to L heel. Cover with Optifoam drsg. Change every 3 days and prn. Apply Betadine to R 1st metatarsal head. Cover with Optifoam drsg. Change every 3 days and prn. Apply Cavilon Skin Barrier R heel. Cover with Optifoam drsg. Change every 7 days and prn. Reposition at least every 2hours or as tolerated. Off-load heels with pillow. 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 * Increased kcal/prot intake needs R/T suspected significant wt loss and underweight status, wounds as evidenced by 10lbs/6.7% wt loss in 1 month, 76% IBW w/ BMI of 18.4, admitted w/ DTPI wound @ sacrum, Lt heel, partial thickness pressure injury cleft of R L ear. CURRENT TF:Osmolite 1.2 @ 60ml/hr x 22 hrs ENTERAL NUTRITION RECOMMENDATIONS: Osmolite 1.2 @ 60ml/hr x 22 hrs + Prosource x 1 to provide 1320ml, 1584kcal, 73g +11g prot, 1082ml free water - Add Prosource x 1 to meet protein needs - HOLD 1 hr before and after synthroid meds. add Prosource 1 pack daily to better meet est pro needs - Flush per MD/ HOB over 30 degrees WITH ELEV BG, rec TF change to Glucerna 1.2 w/ a goal of 60ml/hr x22 hrs to provide 1320ml, 1584kcal, 79g prot ADDITIONAL RECOMMENDATIONS: * PER SNF: HT=6'1" WT= 139lbs ("August weight" from SNF) -> calibrated bedscale wt * Monitor K, need for TF change (K 5.9 upon adm, now wnl) * Wound care: add Vit C 500mg QD + Wesley 1pkt BID via PEG * Monitor BGs, need for NISS: h/o DM per MD (checking A1C not suggested given low hgb) (19) Encounter for PEG (percutaneous endoscopic gastrostomy) (20) At high risk for aspiration (21) Pleural effusion (22) Suspected COVID-19 virus infection Jan Mora October 15, 2019 20:22
--- NOTE | 2019-10-15 20:28 | Infectious Diseases Prog Note ---
Assessment/Plan Assessment/Plan 09/23 SP asystole cardiac arrest VDRF 09/23 Fever; SP Mild leukocytosis, SP Probable UTI -10/01 Bcx Neg u/a wbc tnct; ucx 30-40k C.albicans PNA VDRF, sp intubation 09/08, sp extubation 09/18, re-intubated 09/23 SARS-CoV neg x3 (09/06, 09/08, 09/30) MRSA screen pos 10/09 CXR: Markedly increased and now large right pleural effusion, over 4 days. There is probably some atelectasis on the right as well in addition to the passive atelectasis from pleural fluid. Improved aeration of the left lung 10/05 CXR: Focal patchy infiltrate in the left suprahilar region, not evident previously. Slightly increased small right pleural effusion. Obscured left hemidiaphragm, likely retrocardiac consolidation and/or left pleural fluid , unchanged Stable cardiomegaly 10/02 CXR: Increasing pleural fluid and possibly parenchymal consolidation at the right lung base. Unchanged left basilar pleural and parenchymal disease. sp cx PSA (hensley S), P. stuarti (R. cefepime, ancef, levaquin; S zosyn, ertapenem) 09/30 CXR: Patchy opacities throughout the right lung left mid and lower lung, similar to slightly increased. Possible small bilateral pleural effusions. 09/29 CXR: Increasing right mid and lower lung opacity, may indicate increasing pleural fluid, increasing infiltrate, or both. 09/28 CXR: Developing hazy right basilar opacity. This could represent reaching layering pleural fluid. This could also represent reexpansion pulmonary edema given recent high-volume thoracentesis, or could represent developing ammonia or pulmonary edema. Hazy left basilar opacity, unchanged, may reflect parenchymal infiltrate versus pleural fluid versus both 09/25 CXR: Large right pleural effusion is again demonstrated. Small left pleural effusion is again demonstrated. Left lung is otherwise clear. sp cx PsA (R zozyn, S levo, gentamycin) 09/24 CXR: Moderate size right pleural effusion with right upper and lower lobe atelectasis/consolidation, as well as mild pulmonary edema.. 09/17 CXR: Similar bilateral interstitial prominence, greater on the right.Stable right perihilar, mid and lower lung opacities. Similar left lung base opacity. Small left pleural effusion is stable. Loculated right pleural effusion is stable. No pneumothorax. CXR: Right pleural effusion, also demonstrated on prior 08/09/2019 exam, slightly increased. Hazy right lung parenchymal opacity probably represents a superimposed pleural fluid but infiltrate also possible. 09/06 sp cx: PSA (hensley S) and proteus (hensley S) R pleural effusion, exudative -09/18 SP thorancetesis; removal of 2050 mL fluid; Fluid prot 5 (serum prot 7.2 ); cx Neg QTc 419 RAMAN, improving Encephalopathy -Head CT: Chronic and age-related changes, as described. Multiple old infarcts , as described. Negative for acute intracranial bleed or mass effect. Incidental finding of sphenoid sinus and mastoid disease DM HTN CVA Dementia Nonverbal G tube Plan: Continue to monitor off abx 10/12 SP Meropenem #7 10/06 SP Levaquin #7 10/05 SP IV Vancomycin #6 09/19 SPcefepime # 09/09 SP vanc #4 ( Cr increased) ICU care monitor temp and CBC COVID neg x3 bcx, ua, ucx, CXR in AM DW RN Thank you for this consult. [facility] will continue to follow the patient with you. Subjective Allergies: Coded Allergies: PENICILLINS (Verified Allergy, Unknown, 10/27/18) tolretas cephalosporins Subjective Pt just spiked fever to 101.2 FiO2 stable at 40% no pressors angel was exchanged yesterday Objective Vital Signs Last 24 Hour Vital Signs Date Time Temp Pulse Resp B/P (MAP) Pulse Ox O2 Delivery O2 Flow Rate FiO2 10/15/19 20:00 40 10/15/19 20:00 89 17 114/53 (73) 100 10/15/19 19:00 89 17 108/52 (70) 100 10/15/19 19:00 90 19 40 10/15/19 18:00 89 19 93/49 (64) 100 10/15/19 17:00 88 18 98/53 (68) 100 10/15/19 17:00 86 16 128/71 (90) 100 10/15/19 16:00 Mechanical Ventilator 10/15/19 16:00 90 14 98/53 (68) 100 10/15/19 16:00 87 10/15/19 16:00 98.7 88 15 110/48 (68) 100 10/15/19 16:00 40 10/15/19 15:00 88 14 98/44 (62) 100 10/15/19 14:50 88 16 100 10/15/19 14:00 93 18 104/46 (65) 100 10/15/19 13:00 91 19 110/52 (71) 100 10/15/19 12:00 98.9 89 18 97/50 (66) 100 10/15/19 12:00 91 10/15/19 12:00 40 10/15/19 12:00 Mechanical Ventilator 10/15/19 11:00 87 15 96/46 (63) 100 10/15/19 11:00 88 17 100 10/15/19 10:00 90 17 109/46 (67) 100 10/15/19 09:00 91 16 108/45 (66) 100 10/15/19 08:16 92 113/43 10/15/19 08:00 Mechanical Ventilator 10/15/19 08:00 99.0 88 14 113/43 (66) 100 10/15/19 08:00 40 10/15/19 08:00 89 10/15/19 07:10 94 13 100 10/15/19 07:00 91 15 101/50 (67) 100 10/15/19 06:30 89 19 10/15/19 06:00 94 15 107/54 (71) 100 10/15/19 05:00 95 15 98/53 (68) 100 10/15/19 04:41 94 15 100 10/15/19 04:00 98.9 92 14 108/63 (78) 100 10/15/19 04:00 Mechanical Ventilator 10/15/19 04:00 40 10/15/19 04:00 98 10/15/19 03:00 91 16 106/56 (73) 100 10/15/19 02:40 93 15 100 10/15/19 02:00 96 17 127/62 (83) 100 10/15/19 01:06 94 24 40 10/15/19 01:00 94 38 131/65 (87) 100 10/15/19 00:00 98.8 87 17 129/63 (85) 98 10/15/19 00:00 86 10/15/19 00:00 40 10/15/19 00:00 Mechanical Ventilator 10/14/19 23:16 85 15 40 10/14/19 23:00 85 18 125/62 (83) 95 10/14/19 22:00 84 18 128/60 (82) 98 10/14/19 21:09 86 19 40 10/14/19 21:00 86 18 125/64 (84) 100 10/14/19 20:41 87 124/64 Height (Feet): 5 Height (Inches): 11.00 Weight (Pounds): 140 Objective Gen: NAD. HEENT: ETT. Resp: coarse. equal chest rise. regular rate and rhythm. Abd: Soft. nondistended. G tube Neuro: not interactive Laboratory Tests Test 10/15/19 04:00 White Blood Count 11.9 K/UL (4.8-10.8) H Red Blood Count 3.33 M/UL (4.70-6.10) L Hemoglobin 8.6 G/DL (14.2-18.0) L Hematocrit 26.8 % (42.0-52.0) L Mean Corpuscular Volume 80 FL (80-99) Mean Corpuscular Hemoglobin 25.9 PG (27.0-31.0) L Mean Corpuscular Hemoglobin Concent 32.3 G/DL (32.0-36.0) Red Cell Distribution Width 15.8 % (11.6-14.8) H Platelet Count 505 K/UL (150-450) H Mean Platelet Volume 5.4 FL (6.5-10.1) L Neutrophils (%) (Auto) 76.7 % (45.0-75.0) H Lymphocytes (%) (Auto) 11.1 % (20.0-45.0) L Monocytes (%) (Auto) 7.0 % (1.0-10.0) Eosinophils (%) (Auto) 4.2 % (0.0-3.0) H Basophils (%) (Auto) 1.0 % (0.0-2.0) Sodium Level 135 MMOL/L (136-145) L Potassium Level 6.3 MMOL/L (3.5-5.1) *H Chloride Level 101 MMOL/L (98-107) Carbon Dioxide Level 26 MMOL/L (21-32) Anion Gap 8 mmol/L (5-15) Blood Urea Nitrogen 37 mg/dL (7-18) H Creatinine 1.0 MG/DL (0.55-1.30) Estimat Glomerular Filtration Rate > 60 mL/min (>60) Glucose Level 118 MG/DL (74-106) H Uric Acid 4.8 MG/DL (2.6-7.2) Calcium Level 8.6 MG/DL (8.5-10.1) Phosphorus Level 4.6 MG/DL (2.5-4.9) Magnesium Level 2.4 MG/DL (1.8-2.4) Total Bilirubin 0.6 MG/DL (0.2-1.0) Aspartate Amino Transf (AST/SGOT) 66 U/L (15-37) H Alanine Aminotransferase (ALT/SGPT) 43 U/L (12-78) Alkaline Phosphatase 292 U/L (46-116) H Total Protein 6.8 G/DL (6.4-8.2) Albumin 1.4 G/DL (3.4-5.0) L Globulin 5.4 g/dL Albumin/Globulin Ratio 0.3 (1.0-2.7) L Current Medications Medications (Trade) Dose Ordered Sig/Kike Route PRN Reason Start Time Stop Time Status Last Admin Dose Admin Acetaminophen (Tylenol) 650 mg Q4H PRN GT Temp >100.5 10/15/19 20:30 11/14/19 20:29 Albuterol/ Ipratropium (Albuterol/ Ipratropium) 3 ml Q4HRT PRN HHN sob 10/15/19 09:30 10/20/19 09:29 Docusate Sodium (Colace) 100 mg TID GT 10/05/19 13:00 11/03/19 08:59 10/15/19 17:45 Heparin Sodium (Porcine) (Heparin 5000 units/ml) 5,000 units EVERY 12 HOURS SUBQ 09/24/19 09:00 10/22/19 08:59 10/15/19 08:18 Hydralazine HCl (Apresoline) 10 mg Q4H PRN IV Blood pressure over 160 systol 10/15/19 12:00 01/13/20 11:59 Lansoprazole (Prevacid) 30 mg BID GT 10/15/19 18:00 11/03/19 08:59 10/15/19 17:45 Polyethylene Glycol (Miralax) 17 gm DAILY PRN ORAL Constipation 10/13/19 11:30 11/12/19 11:29 Quetiapine Fumarate (SEROqueL) 25 mg Q8H PRN NG Agitation 09/24/19 02:35 10/30/19 02:34 10/08/19 20:45 Sennosides (Senokot) 8.6 mg DAILY PRN ORAL Constipation 10/06/19 10:15 11/05/19 10:14 10/07/19 21:56 Marcelina Matias MD October 15, 2019 20:28
[2019-10-15] MEDS: Acetaminophen 650mg/20.3ml GT PRN (20:36)
[2019-10-15 20:57] LABS: BILIRUBIN, URINE NEGATIVE (NEGATIVE); COLOR,URINE BROWN; GLUCOSE, URINE (UA) NEGATIVE (NEGATIVE); KETONES,URINE NEGATIVE (NEGATIVE); LEUKOCYTE ESTERASE ,URINE 3+ (NEGATIVE); NITRITE,URINE NEGATIVE (NEGATIVE); PH,URINE 6 (4.5-8.0); PROTEIN,URINE 2+ (NEGATIVE); UROBILINOGEN,URINE 8 MG/DL (0.0-1.0)
[2019-10-15 20:58] LABS: APPEARANCE,URINE SLIGHTLY CLOUDY
[2019-10-16] VITALS (24 sets, daily range): BP systolic 98–150; BP diastolic 45–83
--- NOTE | 2019-10-16 01:00 | Electroencephalogram ---
DATE OF PROCEDURE: 10/14/2019 REQUESTING PHYSICIAN: Vania Hui MD. READING PHYSICIAN: Daniel Ricardo M.D. DATE OF TRACIN10/14/2019. HISTORY: This EEG was performed on an 84-year-old gentleman with a history of multiple medical problems, who has had multiple episodes of respiratory failure requiring intubation. He also has a history of multiple old cerebral infarcts. He has been noted to have a significant alteration in his mental state following the most recent episode of hypoxia and the purpose of this EEG was to evaluate the patient for the degree and type of cerebral dysfunction. TECHNICAL NOTE: This EEG was performed on a [employer] with electrodes placed on the scalp according to the International 10-20 system. [id number] and [id number] montages were used. The EEG was technically satisfactory and was performed while the patient was in a poorly responsive state. OBSERVATIONS: In the poorly responsive state, the background activity consisted of a low amplitude, mixed frequency background in the 1.5-2 Hz delta and 4-4.5 Hz theta range. In addition, triphasic waveforms with an anterior to posterior gradient were also seen. No definite focal abnormalities or epileptiform discharges were noted. IMPRESSION: This is an abnormal EEG characterized by: 1. A low amplitude background in the delta and theta range. 2. The presence of triphasic waveforms with an anterior to posterior gradient. COMMENT: This study is consistent with an encephalopathy of a moderate degree, most probably with a toxic metabolic component as evidenced by the triphasic waveforms. Daniel Ricardo M.D., M.S.P.H. Clinical Neurophysiologist DR: OSBALDO JOB#: [id number] TONYA
[2019-10-16 06:07] LABS: BASOPHILS % (AUTO) 0.9 % (0.0-2.0); EOSINOPHILS % (AUTO) 2.5 % (0.0-3.0); HEMATOCRIT 25.3 % (42.0-52.0); HEMOGLOBIN 8.2 G/DL (14.2-18.0); LYMPHOCYTES % (AUTO) 10.5 % (20.0-45.0); MEAN CORPUSCULAR VOLUME 80 FL (80-99); MONOCYTES % (AUTO) 12.2 % (1.0-10.0); PLATELET COUNT 460 K/UL (150-450); RED BLOOD COUNT 3.15 M/UL (4.70-6.10); RED CELL DISTRIBUTION WIDTH 16.3 % (11.6-14.8); WHITE BLOOD COUNT 12.8 K/UL (4.8-10.8)
[2019-10-16 06:52] LABS: ALANINE AMINOTRANSFERASE 75 U/L (12-78); ALBUMIN 1.3 G/DL (3.4-5.0); ALBUMIN/GLOBULIN RATIO 0.2 (1.0-2.7); ALKALINE PHOSPHATASE 322 U/L (46-116); ANION GAP 9 mmol/L (5-15); ASPARTATE AMINO TRANSFERASE 119 U/L (15-37); BILIRUBIN,TOTAL 1.1 MG/DL (0.2-1.0); BLOOD UREA NITROGEN 36 mg/dL (7-18); CALCIUM 8.8 MG/DL (8.5-10.1); CARBON DIOXIDE 27 MMOL/L (21-32); CHLORIDE 104 MMOL/L (98-107); PHOSPHORUS 4.2 MG/DL (2.5-4.9); POTASSIUM 4.5 MMOL/L (3.5-5.1); SODIUM 140 MMOL/L (136-145)
[2019-10-16 06:53] LABS: BILIRUBIN,DIRECT 0.9 MG/DL (0.0-0.3)
[2019-10-16] MEDS: Docusate 100mg/10ml Liq GT SCH ×3 (08:11→16:58)
[2019-10-16] MEDS: Heparin 5000 units/ml inj SUBQ SCH ×2 (08:12→20:40)
--- NOTE | 2019-10-16 08:43 | Pulmonolgy Critical Care Note ---
Critical Care - Asmt/Plan Assessment/Plan: ASSESSMENT Sepsis Acute respiratory failure requiring intubation, s/p extubation s/p CP arrest and reintubation 09/23 Failure to wean Pseudomonas and Proteus pneumonia recurrent pleural effusion, s/p thoracentesis 09/18 and 09/27 Acute kidney injury, -secondary to dehydration Suspected COVID 19 infection -ruled out x 2 Hypothyroidism with elevated TSH Severe anemia Transaminitis Dysphagia, feeding by G-tube, Cerebrovascular disease with hx of CVA Toxic metabolic encephalopathy Diabetes mellitus Severe protein calorie malnutrition Multiply pressure injury, present on admission Seizure disorder Alzheimer dementia Anemia DNR/DNI status ( since 10/11) PLAN of CARE ICU vent support, pulmonary toilet CXR 09/30 noted, on weaning protocol, continue not able to wean code status changed to DNR/DNI 10/11 family declined trach s/p 09/[address] effusion - 2050 ml, 09/27 -2300 ml, pleural fluid cx NGT x2 pathology - NGT for malignant cells x2 initial CXR with near complete resolution, no complication last CXR 10/09 with increasing R pleural effusion fup with CXR in am HONEY CoV PCR x 2 -NGT; off isolation influenza screen NGT BCX NGT SCX + Pseudomonas, Proteus, repeated SCX 09/25 + Pseudomonas abx as per ID UCX + Abi , likely colonization completed abx as per ID UCX 10/14 NGTD aspiration precautions, GTF , protein supplements as per RD monitor H&H with goal to keep Hgb above 7 BS management trend LFT per neurologist pt with severe bilateral cerebral dysfunction 2 to old bilateral CV disease in addition superimposed encephalopathy related to multiply hypoxic insults and other toxic metabolic imbalances CT of the head showed multiple old infarcts, but negative for acute IV pathology. EEG results pending creat stable avoid nephrotoxics continue Protonix monitor HH at baseline and consider GI eval if further drop elevated D dimer, venous Duplex BLE negative troponin NGT wound care as per surgeon recommendation Synthroid dose uptitrated, repeat TSH in 3 wks supportive care now DNR/DNI status since declining trach ? terminal extubation need phone family meeting re further goals of care case discussed and evaluated by supervising physician Critical Care - Objective Last 24 Hour Vital Signs Date Time Temp Pulse Resp B/P (MAP) Pulse Ox O2 Delivery O2 Flow Rate FiO2 10/16/19 08:00 Mechanical Ventilator 10/16/19 08:00 40 10/16/19 08:00 97.0 88 16 137/80 (99) 100 10/16/19 07:00 93 16 131/83 (99) 10/16/19 06:58 88 19 40 10/16/19 06:30 86 19 10/16/19 06:00 93 17 137/68 (91) 100 10/16/19 05:01 89 17 40 10/16/19 05:00 89 19 135/64 (87) 100 10/16/19 04:00 87 10/16/19 04:00 98.0 90 15 128/68 (88) 100 10/16/19 04:00 Mechanical Ventilator 10/16/19 04:00 40 10/16/19 03:00 88 17 143/79 (100) 100 10/16/19 02:40 84 15 40 10/16/19 02:00 90 18 122/62 (82) 100 10/16/19 01:00 81 14 102/55 (71) 100 10/16/19 00:00 89 10/16/19 00:00 98.0 80 13 113/48 (69) 100 10/16/19 00:00 40 10/16/19 00:00 Mechanical Ventilator 10/15/19 23:00 86 16 107/52 (70) 100 10/15/19 22:44 81 14 40 10/15/19 22:00 84 16 111/54 (73) 100 10/15/19 21:06 99.9 10/15/19 21:00 91 19 120/56 (77) 100 10/15/19 20:00 40 10/15/19 20:00 83 10/15/19 20:00 89 17 114/53 (73) 100 10/15/19 20:00 Mechanical Ventilator 10/15/19 19:00 89 17 108/52 (70) 100 10/15/19 19:00 90 19 40 10/15/19 18:00 89 19 93/49 (64) 100 10/15/19 17:00 88 18 98/53 (68) 100 10/15/19 17:00 86 16 128/71 (90) 100 10/15/19 16:00 Mechanical Ventilator 10/15/19 16:00 90 14 98/53 (68) 100 10/15/19 16:00 87 10/15/19 16:00 98.7 88 15 110/48 (68) 100 10/15/19 16:00 40 10/15/19 15:00 88 14 98/44 (62) 100 10/15/19 14:50 88 16 100 10/15/19 14:00 93 18 104/46 (65) 100 10/15/19 13:00 91 19 110/52 (71) 100 10/15/19 12:00 98.9 89 18 97/50 (66) 100 10/15/19 12:00 91 10/15/19 12:00 40 10/15/19 12:00 Mechanical Ventilator 10/15/19 11:00 87 15 96/46 (63) 100 10/15/19 11:00 88 17 100 10/15/19 10:00 90 17 109/46 (67) 100 10/15/19 09:00 91 16 108/45 (66) 100 Objective: Condition: critical, intubated on vent AC mode HEENT: atraumatic, normocephalic, OP with ET in place, intact Lungs: overall clear Heart: HR/BP stable Abdomen: soft, active bowel sounds, G tube Extremities: no C/C/E Micro: Microbiology Date/Time Source Procedure Growth Status 10/15/19 20:30 Indwelling Cath Urine Culture - Preliminary NO GROWTH Resulted Critical Care - Subjective ROS Limited/Unobtainable: Yes Interval Events: low grade fever earlier this am ( per conversation with nurse) mild leukocytosis no signs of resp distress on current settings unable to wean pending family decision Condition: critical IV Access: peripheral EKG Rhythm: Sinus Rhythm FI02: 40 Vent Support Breath Rate: 12 Vent Support Mode: AC Vent Tidal Volume: 550 Sputum Amount: Small PEEP: 5.0 PIP: 28 Secretions: small amount, white color, thick consistency Tube Feeding Amount: 60 I&O: Intake and Output 10/15/19 10/16/19 19:00 07:00 Intake Total 1991.19334 ml 970 ml Output Total 890 ml 450 ml Balance 1101.75507 ml 520 ml Intake Free Water 100 ml IV Total 1571.11537 ml Tube Feeding 420 ml 780 ml Other 90 ml Output Urine Total 890 ml 450 ml CXR: 10/09 Markedly increased and now large right pleural effusion, over 4 days There is probably some atelectasis on the right as well in addition to the passive atelectasis from pleural fluid Improved aeration of the left lung. CXR pending for this am ET-Tube: 25.0 ET Position: 26 Miranda Pimentel NP October 16, 2019 08:42
--- NOTE | 2019-10-16 08:53 | Nephrology Progress Note ---
Assessment/Plan Problem List: (1) RAMAN (acute kidney injury) Assessment: Serum creatinine normalized with hydration (2) Dehydration (3) Suspected COVID-19 virus infection (4) Anemia (5) Sepsis (6) Diabetes mellitus (7) Hypothyroidism Assessment - Acute renal failure - Severe anemia - Sepsis, pneumonia, acute respiratory failure, suspected: Viewed 19 virus infection - Diabetes mellitus - Hypothyroidism - Feeding by G-tube - Squamous cell esophageal cancer - History of CVA (cerebrovascular accident) Plan October 15: Discussed with KAI Estevez Serum potassium within normal limit range Remains intubated on ventilator Continue per consultants October 14: Discussed with KAI Figueroa Serum potassium high, I believe it most likely due to hemolysis because: BUN and creatinine levels not indicative of worsening renal failure, urine output well maintained At this time will give fluid boluses and 1 dose of Kayexalate and recheck renal parameters tomorrow October 8: Potassium of 5.5 likely hemolyzed Discussed with RN to adjust Muniz catheter and do a bedside bladder ultrasound to assess if there is any urinary retention October 7: Remains stable from renal standpoint to view Remains intubated Continue per consultants Not much to add from renal standpoint. October 6: Remains stable from renal standpoint of view Remains intubated Data reviewed October 5: Dose unchanged from renal standpoint to view Remains intubated October 4: Stable from renal standpoint of view Hemoglobin higher today October 3 Discussed with RN Remains intubated on ventilator Hemoglobin is drifting down Will reorder iron panel Remains stable from renal standpoint of view Remains full code October 2: Discussed with RN. Patient remains intubated. Family declined comfort care. Weaning trial is being attempted Main stable from renal standpoint of view We will order labs for tomorrow. Previously Patient was coded early September 23 morning and back in ICU intubated Serum creatinine miguel to 1.5, now back to normal Stable from renal standpoint of view at this point He is status remains full code Tested negative for COVID-19 Previously: Pneumonia SARS-CoV neg x2 MRSA screen pos sp cx: PSA and proteus Changes Seroquel to "as needed" due to bradycardia Discontinue IV fluid Monitor renal parameters, serum creatinine Adjust electrolytes with supplements Increase Synthroid dose Avoid nephrotoxic's as possible Ventilator management Urine studies Per orders Subjective ROS Limited/Unobtainable: Yes Objective Objective Last 24 Hour Vital Signs Date Time Temp Pulse Resp B/P (MAP) Pulse Ox O2 Delivery O2 Flow Rate FiO2 10/16/19 08:00 Mechanical Ventilator 10/16/19 08:00 40 10/16/19 08:00 97.0 88 16 137/80 (99) 100 10/16/19 07:00 93 16 131/83 (99) 10/16/19 06:58 88 19 40 10/16/19 06:30 86 19 10/16/19 06:00 93 17 137/68 (91) 100 10/16/19 05:01 89 17 40 10/16/19 05:00 89 19 135/64 (87) 100 10/16/19 04:00 87 10/16/19 04:00 98.0 90 15 128/68 (88) 100 10/16/19 04:00 Mechanical Ventilator 10/16/19 04:00 40 10/16/19 03:00 88 17 143/79 (100) 100 10/16/19 02:40 84 15 40 10/16/19 02:00 90 18 122/62 (82) 100 10/16/19 01:00 81 14 102/55 (71) 100 10/16/19 00:00 89 10/16/19 00:00 98.0 80 13 113/48 (69) 100 10/16/19 00:00 40 10/16/19 00:00 Mechanical Ventilator 10/15/19 23:00 86 16 107/52 (70) 100 10/15/19 22:44 81 14 40 10/15/19 22:00 84 16 111/54 (73) 100 10/15/19 21:06 99.9 10/15/19 21:00 91 19 120/56 (77) 100 10/15/19 20:00 40 10/15/19 20:00 83 10/15/19 20:00 89 17 114/53 (73) 100 10/15/19 20:00 Mechanical Ventilator 10/15/19 19:00 89 17 108/52 (70) 100 10/15/19 19:00 90 19 40 10/15/19 18:00 89 19 93/49 (64) 100 10/15/19 17:00 88 18 98/53 (68) 100 10/15/19 17:00 86 16 128/71 (90) 100 10/15/19 16:00 Mechanical Ventilator 10/15/19 16:00 90 14 98/53 (68) 100 10/15/19 16:00 87 10/15/19 16:00 98.7 88 15 110/48 (68) 100 10/15/19 16:00 40 10/15/19 15:00 88 14 98/44 (62) 100 10/15/19 14:50 88 16 100 10/15/19 14:00 93 18 104/46 (65) 100 10/15/19 13:00 91 19 110/52 (71) 100 10/15/19 12:00 98.9 89 18 97/50 (66) 100 10/15/19 12:00 91 10/15/19 12:00 40 10/15/19 12:00 Mechanical Ventilator 10/15/19 11:00 87 15 96/46 (63) 100 10/15/19 11:00 88 17 100 10/15/19 10:00 90 17 109/46 (67) 100 10/15/19 09:00 91 16 108/45 (66) 100 Intake and Output 10/15/19 10/16/19 19:00 07:00 Intake Total 1991.09598 ml 970 ml Output Total 890 ml 450 ml Balance 1101.77840 ml 520 ml Intake Free Water 100 ml IV Total 1571.81310 ml Tube Feeding 420 ml 780 ml Other 90 ml Output Urine Total 890 ml 450 ml Laboratory Tests 10/15/19 20:30: Urine Color Brown, Urine Appearance Slightly cloudy, Urine pH 6, Urine Specific [place] 1.010, Urine Protein 2+H, Urine Glucose (UA) Negative, Urine Ketones Negative, Urine Blood 5+H, Urine Nitrite Negative, Urine Bilirubin Negative, Urine Urobilinogen 8H, Urine Leukocyte Esterase 3+H, Urine RBC 2-4H, Urine WBC 10-15H, Urine Squamous Epithelial Cells Occasional, Urine Bacteria Few, Urine Yeast ModerateH 10/16/19 05:00: White Blood Count 12.8H, Red Blood Count 3.15L, Hemoglobin 8.2L, Hematocrit 25.3L, Mean Corpuscular Volume 80, Mean Corpuscular Hemoglobin 25.9L, Mean Corpuscular Hemoglobin Concent 32.3, Red Cell Distribution Width 16.3H, Platelet Count 460H, Mean Platelet Volume 5.1L, Neutrophils (%) (Auto) 74.0, Lymphocytes (%) (Auto) 10.5L, Monocytes (%) (Auto) 12.2H, Eosinophils (%) (Auto ) 2.5, Basophils (%) (Auto) 0.9, Sodium Level 140, Potassium Level 4.5, Chloride Level 104, Carbon Dioxide Level 27, Anion Gap 9, Blood Urea Nitrogen 36H, Creatinine 1.0, Estimat Glomerular Filtration Rate > 60, Glucose Level 129H , Uric Acid 5.2, Calcium Level 8.8, Phosphorus Level 4.2, Magnesium Level 2.4, Total Bilirubin 1.1H, Direct Bilirubin 0.9H, Aspartate Amino Transf (AST/SGOT) 119H, Alanine Aminotransferase (ALT/SGPT) 75, Alkaline Phosphatase 322H, C- Reactive Protein, Quantitative 69.6H, Pro-B-Type Natriuretic Peptide 225H, Total Protein 7.4, Albumin 1.3L, Globulin 6.1, Albumin/Globulin Ratio 0.2L Height (Feet): 5 Height (Inches): 11.00 Weight (Pounds): 141 General Appearance: no apparent distress Cardiovascular: tachycardia - Rate mid 80s Respiratory/Chest: decreased breath sounds Abdomen: distended Objective no change Clovis Benites MD October 16, 2019 08:53
--- NOTE | 2019-10-16 09:42 | Diagnostic Imaging Report ---
EXAM: XR Chest, 1 View CLINICAL HISTORY: SOB TECHNIQUE: Frontal view of the chest. COMPARISON: 10/10/19 FINDINGS: Lungs: The left lung appears clear. Pleural space: There is been improvement in moderate right pleural effusion. There is improving right basilar infiltrate/atelectasis. No new infiltrates are identified. No pneumothorax. Heart: Unremarkable. No cardiomegaly. Mediastinum: Unremarkable. Bones/joints: Unremarkable. Tubes, lines and devices: There is an endotracheal tube in good position. IMPRESSION: There is been improvement in moderate right pleural effusion. There is improving right basilar infiltrate/atelectasis. No new infiltrates are identified.
--- NOTE | 2019-10-16 13:29 | GI Progress Note ---
Assessment/Plan Problems: (1) Encounter for PEG (percutaneous endoscopic gastrostomy) ICD Codes: Z43.1 - Encounter for attention to gastrostomy SNOMED: 534300379, 272863848 (2) Severe malnutrition ICD Codes: E43 - Unspecified severe protein-calorie malnutrition SNOMED: 80023833 (3) Anemia ICD Codes: D64.9 - Anemia, unspecified SNOMED: 274524928 (4) Dehydration ICD Codes: E86.0 - Dehydration SNOMED: 18065088 (5) Feeding by G-tube ICD Codes: Z93.1 - Gastrostomy status SNOMED: 319599897, 143478087, 160195194 Status: unchanged Status Narrative Discussed with Dr. Rosario. Assessment/Plan 1. Esophageal cancer. 2. Dysphagia. 3. Diabetes type 2. 4. Dementia. 5. CVA. 6. Hypothyroidism. 7. Seizure disorder. 8. Iron deficiency anemia. 9. Respiratory failure. 10. Dysphagia with G-tube Covid negative x2 stable H&H GT has been changed and working well GT flushes dietitian in put appreciated>>> TF Jevity senna abx per id pulm care bowel regimen recent labs and notes reviewed D/W the nurse will fu The patient was seen and examined at bedside and all new and available data was reviewed in the patients chart. I agree with the above findings, impression and plan. (Patient seen earlier today. Signature stamp does not reflect patient encounter time.). - Darrick Rosario MD Subjective Subjective limited Objective Last 24 Hour Vital Signs Date Time Temp Pulse Resp B/P (MAP) Pulse Ox O2 Delivery O2 Flow Rate FiO2 10/16/19 13:00 91 19 126/68 (87) 100 10/16/19 12:00 98.2 83 17 150/65 (93) 100 10/16/19 12:00 40 10/16/19 12:00 84 10/16/19 12:00 Mechanical Ventilator 10/16/19 11:37 85 22 40 10/16/19 11:00 82 19 133/59 (83) 96 10/16/19 10:00 81 19 131/70 (90) 84 10/16/19 09:00 86 19 149/73 (98) 100 10/16/19 08:00 93 10/16/19 08:00 Mechanical Ventilator 10/16/19 08:00 40 10/16/19 08:00 97.0 88 16 137/80 (99) 100 10/16/19 07:00 93 16 131/83 (99) 10/16/19 06:58 88 19 40 10/16/19 06:30 86 19 10/16/19 06:00 93 17 137/68 (91) 100 10/16/19 05:01 89 17 40 10/16/19 05:00 89 19 135/64 (87) 100 10/16/19 04:00 87 10/16/19 04:00 98.0 90 15 128/68 (88) 100 10/16/19 04:00 Mechanical Ventilator 10/16/19 04:00 40 10/16/19 03:00 88 17 143/79 (100) 100 10/16/19 02:40 84 15 40 10/16/19 02:00 90 18 122/62 (82) 100 10/16/19 01:00 81 14 102/55 (71) 100 10/16/19 00:00 89 10/16/19 00:00 98.0 80 13 113/48 (69) 100 10/16/19 00:00 40 10/16/19 00:00 Mechanical Ventilator 10/15/19 23:00 86 16 107/52 (70) 100 10/15/19 22:44 81 14 40 10/15/19 22:00 84 16 111/54 (73) 100 10/15/19 21:06 99.9 10/15/19 21:00 91 19 120/56 (77) 100 10/15/19 20:00 40 10/15/19 20:00 83 10/15/19 20:00 89 17 114/53 (73) 100 10/15/19 20:00 Mechanical Ventilator 10/15/19 19:00 89 17 108/52 (70) 100 10/15/19 19:00 90 19 40 10/15/19 18:00 89 19 93/49 (64) 100 10/15/19 17:00 88 18 98/53 (68) 100 10/15/19 17:00 86 16 128/71 (90) 100 10/15/19 16:00 Mechanical Ventilator 10/15/19 16:00 90 14 98/53 (68) 100 10/15/19 16:00 87 10/15/19 16:00 98.7 88 15 110/48 (68) 100 10/15/19 16:00 40 10/15/19 15:00 88 14 98/44 (62) 100 10/15/19 14:50 88 16 100 10/15/19 14:00 93 18 104/46 (65) 100 Intake and Output 10/15/19 10/16/19 19:00 07:00 Intake Total 1991.93410 ml 970 ml Output Total 890 ml 450 ml Balance 1101.57873 ml 520 ml Intake Free Water 100 ml IV Total 1571.70490 ml Tube Feeding 420 ml 780 ml Other 90 ml Output Urine Total 890 ml 450 ml Laboratory Tests Test 10/15/19 20:30 10/16/19 05:00 Urine Color Brown Urine Appearance Slightly cloudy Urine pH 6 (4.5-8.0) Urine Specific [place] 1.010 (1.005-1.035) Urine Protein 2+ (NEGATIVE) H Urine Glucose (UA) Negative (NEGATIVE) Urine Ketones Negative (NEGATIVE) Urine Blood 5+ (NEGATIVE) H Urine Nitrite Negative (NEGATIVE) Urine Bilirubin Negative (NEGATIVE) Urine Urobilinogen 8 MG/DL (0.0-1.0) H Urine Leukocyte Esterase 3+ (NEGATIVE) H Urine RBC 2-4 /HPF (0 - 0) H Urine WBC 10-15 /HPF (0 - 0) H Urine Squamous Epithelial Cells Occasional /LPF Urine Bacteria Few /HPF (NONE) Urine Yeast Moderate /HPF (NONE) H White Blood Count 12.8 K/UL (4.8-10.8) H Red Blood Count 3.15 M/UL (4.70-6.10) L Hemoglobin 8.2 G/DL (14.2-18.0) L Hematocrit 25.3 % (42.0-52.0) L Mean Corpuscular Volume 80 FL (80-99) Mean Corpuscular Hemoglobin 25.9 PG (27.0-31.0) L Mean Corpuscular Hemoglobin Concent 32.3 G/DL (32.0-36.0) Red Cell Distribution Width 16.3 % (11.6-14.8) H Platelet Count 460 K/UL (150-450) H Mean Platelet Volume 5.1 FL (6.5-10.1) L Neutrophils (%) (Auto) 74.0 % (45.0-75.0) Lymphocytes (%) (Auto) 10.5 % (20.0-45.0) L Monocytes (%) (Auto) 12.2 % (1.0-10.0) H Eosinophils (%) (Auto) 2.5 % (0.0-3.0) Basophils (%) (Auto) 0.9 % (0.0-2.0) Sodium Level 140 MMOL/L (136-145) Potassium Level 4.5 MMOL/L (3.5-5.1) Chloride Level 104 MMOL/L (98-107) Carbon Dioxide Level 27 MMOL/L (21-32) Anion Gap 9 mmol/L (5-15) Blood Urea Nitrogen 36 mg/dL (7-18) H Creatinine 1.0 MG/DL (0.55-1.30) Estimat Glomerular Filtration Rate > 60 mL/min (>60) Glucose Level 129 MG/DL (74-106) H Uric Acid 5.2 MG/DL (2.6-7.2) Calcium Level 8.8 MG/DL (8.5-10.1) Phosphorus Level 4.2 MG/DL (2.5-4.9) Magnesium Level 2.4 MG/DL (1.8-2.4) Total Bilirubin 1.1 MG/DL (0.2-1.0) H Direct Bilirubin 0.9 MG/DL (0.0-0.3) H Aspartate Amino Transf (AST/SGOT) 119 U/L (15-37) H Alanine Aminotransferase (ALT/SGPT) 75 U/L (12-78) Alkaline Phosphatase 322 U/L (46-116) H C-Reactive Protein, Quantitative 69.6 mg/dL (0.00-0.90) H Pro-B-Type Natriuretic Peptide 225 pg/mL (0-125) H Total Protein 7.4 G/DL (6.4-8.2) Albumin 1.3 G/DL (3.4-5.0) L Globulin 6.1 g/dL Albumin/Globulin Ratio 0.2 (1.0-2.7) L Microbiology Date/Time Source Procedure Growth Status 10/15/19 20:30 Indwelling Cath Urine Culture - Preliminary NO GROWTH Resulted Height (Feet): 5 Height (Inches): 11.00 Weight (Pounds): 141 General Appearance: no apparent distress Cardiovascular: normal rate Respiratory/Chest: no respiratory distress Abdominal Exam: soft, GT site Chani Arroyo NP October 16, 2019 13:29
--- NOTE | 2019-10-16 14:41 | Internal Med Progress Note ---
Subjective Date of Service: October 16, 2019 Physician Name Xander Bah Attending Physician Lamont Hayes MD Current Medications Medications (Trade) Dose Ordered Sig/Kike Route PRN Reason Start Time Stop Time Status Last Admin Dose Admin Acetaminophen (Tylenol) 650 mg Q4H PRN GT Temp >100.5 10/15/19 20:30 11/14/19 20:29 10/15/19 20:36 Albuterol/ Ipratropium (Albuterol/ Ipratropium) 3 ml Q4HRT PRN HHN sob 10/15/19 09:30 10/20/19 09:29 Docusate Sodium (Colace) 100 mg TID GT 10/05/19 13:00 11/03/19 08:59 10/16/19 12:53 Heparin Sodium (Porcine) (Heparin 5000 units/ml) 5,000 units EVERY 12 HOURS SUBQ 09/24/19 09:00 10/22/19 08:59 10/16/19 08:12 Hydralazine HCl (Apresoline) 10 mg Q4H PRN IV Blood pressure over 160 systol 10/15/19 12:00 01/13/20 11:59 Lansoprazole (Prevacid) 30 mg BID GT 10/15/19 18:00 11/03/19 08:59 10/16/19 08:11 Polyethylene Glycol (Miralax) 17 gm DAILY PRN ORAL Constipation 10/13/19 11:30 11/12/19 11:29 Quetiapine Fumarate (SEROqueL) 25 mg Q8H PRN NG Agitation 09/24/19 02:35 10/30/19 02:34 10/08/19 20:45 Sennosides (Senokot) 8.6 mg DAILY PRN ORAL Constipation 10/06/19 10:15 11/05/19 10:14 10/07/19 21:56 Allergies: Coded Allergies: PENICILLINS (Verified Allergy, Unknown, 10/27/18) tolretas cephalosporins ROS Limited/Unobtainable: Yes Subjective 84 YO M admitted with cough and congestion. Cover for Int Med-Dr Hayes. Reintubated 09/24/19 after cardiopulmonary arrest. ICU Objective Last Vital Signs Date Time Temp Pulse Resp B/P (MAP) Pulse Ox O2 Delivery O2 Flow Rate FiO2 10/16/19 14:00 90 16 128/66 (86) 100 10/16/19 12:00 98.2 10/16/19 12:00 40 10/16/19 12:00 Mechanical Ventilator Laboratory Tests Test 10/15/19 20:30 10/16/19 05:00 Urine Color Brown Urine Appearance Slightly cloudy Urine pH 6 (4.5-8.0) Urine Specific [place] 1.010 (1.005-1.035) Urine Protein 2+ (NEGATIVE) H Urine Glucose (UA) Negative (NEGATIVE) Urine Ketones Negative (NEGATIVE) Urine Blood 5+ (NEGATIVE) H Urine Nitrite Negative (NEGATIVE) Urine Bilirubin Negative (NEGATIVE) Urine Urobilinogen 8 MG/DL (0.0-1.0) H Urine Leukocyte Esterase 3+ (NEGATIVE) H Urine RBC 2-4 /HPF (0 - 0) H Urine WBC 10-15 /HPF (0 - 0) H Urine Squamous Epithelial Cells Occasional /LPF Urine Bacteria Few /HPF (NONE) Urine Yeast Moderate /HPF (NONE) H White Blood Count 12.8 K/UL (4.8-10.8) H Red Blood Count 3.15 M/UL (4.70-6.10) L Hemoglobin 8.2 G/DL (14.2-18.0) L Hematocrit 25.3 % (42.0-52.0) L Mean Corpuscular Volume 80 FL (80-99) Mean Corpuscular Hemoglobin 25.9 PG (27.0-31.0) L Mean Corpuscular Hemoglobin Concent 32.3 G/DL (32.0-36.0) Red Cell Distribution Width 16.3 % (11.6-14.8) H Platelet Count 460 K/UL (150-450) H Mean Platelet Volume 5.1 FL (6.5-10.1) L Neutrophils (%) (Auto) 74.0 % (45.0-75.0) Lymphocytes (%) (Auto) 10.5 % (20.0-45.0) L Monocytes (%) (Auto) 12.2 % (1.0-10.0) H Eosinophils (%) (Auto) 2.5 % (0.0-3.0) Basophils (%) (Auto) 0.9 % (0.0-2.0) Sodium Level 140 MMOL/L (136-145) Potassium Level 4.5 MMOL/L (3.5-5.1) Chloride Level 104 MMOL/L (98-107) Carbon Dioxide Level 27 MMOL/L (21-32) Anion Gap 9 mmol/L (5-15) Blood Urea Nitrogen 36 mg/dL (7-18) H Creatinine 1.0 MG/DL (0.55-1.30) Estimat Glomerular Filtration Rate > 60 mL/min (>60) Glucose Level 129 MG/DL (74-106) H Uric Acid 5.2 MG/DL (2.6-7.2) Calcium Level 8.8 MG/DL (8.5-10.1) Phosphorus Level 4.2 MG/DL (2.5-4.9) Magnesium Level 2.4 MG/DL (1.8-2.4) Total Bilirubin 1.1 MG/DL (0.2-1.0) H Direct Bilirubin 0.9 MG/DL (0.0-0.3) H Aspartate Amino Transf (AST/SGOT) 119 U/L (15-37) H Alanine Aminotransferase (ALT/SGPT) 75 U/L (12-78) Alkaline Phosphatase 322 U/L (46-116) H C-Reactive Protein, Quantitative 69.6 mg/dL (0.00-0.90) H Pro-B-Type Natriuretic Peptide 225 pg/mL (0-125) H Total Protein 7.4 G/DL (6.4-8.2) Albumin 1.3 G/DL (3.4-5.0) L Globulin 6.1 g/dL Albumin/Globulin Ratio 0.2 (1.0-2.7) L Microbiology Date/Time Source Procedure Growth Status 10/15/19 20:30 Indwelling Cath Urine Culture - Preliminary NO GROWTH Resulted Intake and Output 10/15/19 10/16/19 19:00 07:00 Intake Total 1991.80644 ml 970 ml Output Total 890 ml 450 ml Balance 1101.67900 ml 520 ml Intake Free Water 100 ml IV Total 1571.17966 ml Tube Feeding 420 ml 780 ml Other 90 ml Output Urine Total 890 ml 450 ml Objective PHYSICAL EXAMINATION: GENERAL: The patient is a thin-appearing male, in no apparent distress. HEENT: Eyes, pupils are equal and responsive to light and accommodation. Extraocular movements are intact. NECK: Supple without lymphadenopathy. CHEST: Mech vent; Lungs are clear to auscultation bilaterally with decreased breath sounds on the right. There are no wheezes appreciated. ABDOMEN: Soft, nontender, and nondistended. Positive bowel sounds. No evidence of hepatosplenomegaly. Currently, no rebound or guarding noted. EXTREMITIES: Negative for clubbing, cyanosis, or edema. RECTAL/GENITAL: Not performed. NEUROLOGIC: Cranial nerves II through XII are grossly intact without focal deficits. Assessment/Plan Assessment/Plan ASSESSMENT: This is an 84-year-old male with: 1. 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 Urinary tract infection=jennifer 3. Right pleural effusion. 4. Esophageal mass. 5. Dysphagia. 6. Diabetes. 7. Alzheimer's dementia. 8. Cerebrovascular disease. 9. Hypothyroidism. 10. Seizure disorder. 11. Iron deficiency anemia. 13. Respiratory failure 14. S/P cardiopulmonary arrest 15. Anemia 16. Patient now DNR/DNI-see critical care note TREATMENT: 1. Right perihilar Pneumonia/pleural effusion. COVID 19 and Influenza negative. A Pulmonary consultation has been obtained with Dr. Vania Hui. S/P right thoracentesis 09/19/19. We will follow recommendation of Pulmonary. ID=Dr Roach ABX= S/P levofloxacin, vanco and Meropenem per ID 2. Urinary tract infection. . A urine culture =jennifer 3. Right pleural effusion. As above, a Pulmonary consultation has been obtained with Dr. Vania Hui. The patient may require thoracentesis during this hospitalization. 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 A Gastroenterology consultation has been obtained with Dr. Darrick Rosario. 5. Dysphagia. The patient is status post PEG placement on 08/08/[address] [facility] by Dr. Darrick Rosario. 6. Diabetes type 2. A NovoLog sliding scale has been instituted. 7. Alzheimer's dementia. 8. Cerebrovascular disease, status post cerebrovascular accident. 9. Hypothyroidism. Continue levothyroxine as above. 10. Seizure disorder. 11. Iron deficiency anemia. 12. reintubated 09/24/19-see code blue note 13. S/P transfusion 2 units PRBC Xander Bah MD October 16, 2019 14:41
--- NOTE | 2019-10-16 15:07 | Neurology Progress Note ---
Interim History Interim History Interim History Mr. Yaniv Vazquez is an 84-year-old, black gentleman, of unknown handedness, who does have a past history of hypertension, diabetes mellitus, dyslipidemia, hypothyroidism, esophageal cancer, cerebrovascular disease -the details of which are unknown to us, and Alzheimer's disease, was brought into the [facility] emergency room from his [facility] on 09/07/2019. Since he has been in the hospital he has had multiple endotracheal intubations followed by extubations followed by reintubation because of bouts of respiratory failure. As per his nurse there has been no significant change in his condition since I saw him last. He continues to open his eyes on deep painful stimulation, but is otherwise unresponsive. There has been no significant change in his medical or neurological condition. Review of Systems Neuro Review of Systems Unable to obtain. Objective Physical Exam Last Vital Signs Date Time Temp Pulse Resp B/P (MAP) Pulse Ox O2 Delivery O2 Flow Rate FiO2 10/16/19 14:00 90 16 128/66 (86) 100 10/16/19 12:00 98.2 10/16/19 12:00 40 10/16/19 12:00 Mechanical Ventilator Laboratory Tests Test 10/15/19 20:30 10/16/19 05:00 Urine Color Brown Urine Appearance Slightly cloudy Urine pH 6 (4.5-8.0) Urine Specific [place] 1.010 (1.005-1.035) Urine Protein 2+ (NEGATIVE) H Urine Glucose (UA) Negative (NEGATIVE) Urine Ketones Negative (NEGATIVE) Urine Blood 5+ (NEGATIVE) H Urine Nitrite Negative (NEGATIVE) Urine Bilirubin Negative (NEGATIVE) Urine Urobilinogen 8 MG/DL (0.0-1.0) H Urine Leukocyte Esterase 3+ (NEGATIVE) H Urine RBC 2-4 /HPF (0 - 0) H Urine WBC 10-15 /HPF (0 - 0) H Urine Squamous Epithelial Cells Occasional /LPF Urine Bacteria Few /HPF (NONE) Urine Yeast Moderate /HPF (NONE) H White Blood Count 12.8 K/UL (4.8-10.8) H Red Blood Count 3.15 M/UL (4.70-6.10) L Hemoglobin 8.2 G/DL (14.2-18.0) L Hematocrit 25.3 % (42.0-52.0) L Mean Corpuscular Volume 80 FL (80-99) Mean Corpuscular Hemoglobin 25.9 PG (27.0-31.0) L Mean Corpuscular Hemoglobin Concent 32.3 G/DL (32.0-36.0) Red Cell Distribution Width 16.3 % (11.6-14.8) H Platelet Count 460 K/UL (150-450) H Mean Platelet Volume 5.1 FL (6.5-10.1) L Neutrophils (%) (Auto) 74.0 % (45.0-75.0) Lymphocytes (%) (Auto) 10.5 % (20.0-45.0) L Monocytes (%) (Auto) 12.2 % (1.0-10.0) H Eosinophils (%) (Auto) 2.5 % (0.0-3.0) Basophils (%) (Auto) 0.9 % (0.0-2.0) Sodium Level 140 MMOL/L (136-145) Potassium Level 4.5 MMOL/L (3.5-5.1) Chloride Level 104 MMOL/L (98-107) Carbon Dioxide Level 27 MMOL/L (21-32) Anion Gap 9 mmol/L (5-15) Blood Urea Nitrogen 36 mg/dL (7-18) H Creatinine 1.0 MG/DL (0.55-1.30) Estimat Glomerular Filtration Rate > 60 mL/min (>60) Glucose Level 129 MG/DL (74-106) H Uric Acid 5.2 MG/DL (2.6-7.2) Calcium Level 8.8 MG/DL (8.5-10.1) Phosphorus Level 4.2 MG/DL (2.5-4.9) Magnesium Level 2.4 MG/DL (1.8-2.4) Total Bilirubin 1.1 MG/DL (0.2-1.0) H Direct Bilirubin 0.9 MG/DL (0.0-0.3) H Aspartate Amino Transf (AST/SGOT) 119 U/L (15-37) H Alanine Aminotransferase (ALT/SGPT) 75 U/L (12-78) Alkaline Phosphatase 322 U/L (46-116) H C-Reactive Protein, Quantitative 69.6 mg/dL (0.00-0.90) H Pro-B-Type Natriuretic Peptide 225 pg/mL (0-125) H Total Protein 7.4 G/DL (6.4-8.2) Albumin 1.3 G/DL (3.4-5.0) L Globulin 6.1 g/dL Albumin/Globulin Ratio 0.2 (1.0-2.7) L Neurologic Exam Objective PHYSICAL EXAMINATION: GENERAL: He is a well-developed, relatively well-nourished, black gentleman, lying in an ICU bed, connected to ventilator, via an orotracheal tube. HEAD: Normocephalic and atraumatic. NECK: No neck rigidity was observed. EENT: Benign. NEUROLOGIC EXAMINATION: MENTAL STATUS EXAMINATION: He opened his eyes on applying deep painful stimuli. He was unable to interact in any other manner. Further mental status testing was impossible. SPEECH: Could not be tested. LANGUAGE: He did not follow simple commands or express himself in any way. CRANIAL NERVE EXAMINATION: II: He did not blink to threat. III, IV, : External ocular movements were present on oculocephalic maneuvers. The pupils were 3 mm in diameter and did not react to light. V-VII: The corneal reflexes were present but subdued bilaterally. VIII: He did not respond to loud sounds and had no nystagmus. IX-X: The gag reflex was absent on manipulating the endotracheal tube. XI: The sternocleidomastoids and trapezii did not function. XII: Could not be tested adequately. MOTOR SYSTEM: The tone was increased in all 4 extremities with a significant degree of spasticity. Examination of muscle mass revealed generalized muscle wasting with bilateral upper and lower extremity contractures in flexion. No movements was were noted even on applying deep painful stimuli. SENSORY EXAMINATION: He responded to deep pain with brief eye opening. COORDINATION: Could not be tested. REFLEXES: 0 at the biceps, triceps, brachioradialis, knees and ankles. The plantar responses were mute bilaterally. STANCE: Could not be tested. GAIT: Could not be tested. ABNORMAL MOVEMENTS: None Impression/Recommendations Diagnostic Impression DIAGNOSTIC IMPRESSION: 1. Mr. Yaniv Vazquez is an 84-year-old, black gentleman, of unknown handedness, who does have a past history of hypertension, diabetes mellitus, dyslipidemia, hypothyroidism, esophageal cancer, cerebrovascular disease -the details of which are unknown to us, and Alzheimer's disease, was brought into the [facility] emergency room from his [facility] on 09/07/2019. 2. Since he has been in the hospital he has had multiple endotracheal intubations followed by extubations followed by reintubation because of bouts of respiratory failure. His cognitive function has progressively worsened and thus this consultation was requested to evaluate the patient from a neurological point of view to help prognosticate. 3. As per his nurse there has been no significant change in his condition since I saw him last. He continues to open his eyes on deep painful stimulation, but is otherwise unresponsive. There is been no significant change in his medical or neurological condition. 4. On neurological examination, at this time, he does open his eyes on deep painful stimulation but rapidly closes them. He does not respond in any other manner. He does have brainstem function in the form of extraocular eye movements on oculocephalic maneuvers, and corneal reflexes. He has severe spasticity in all 4 extremities and significant wasting and contractures involving all 4 extremities. He does not move any of his extremities even on applying deep painful stimuli. His deep tendon reflexes are globally absent and his plantar responses mute. 5. The CT scan of the brain without contrast performed on 10/14/2019 revealed deep white matter changes consistent with chronic microvascular ischemic disease. In addition old subcortical infarcts was seen in the frontal deep white matter bilaterally, the left thalamus, and the right cerebellum. 6. The EEG performed on 10/14/2019 revealed slowing of the background in the delta and theta range with triphasic waveforms. These findings are consistent with a moderately severe encephalopathy with a metabolic component. 7. The patient's history and neurological examination are most consistent with severe bilateral cerebral dysfunction. This dysfunction is due to old bilateral cerebrovascular disease and in addition the superimposed encephalopathy related to multiple hypoxic insults and other toxic metabolic imbalances. 8. The prognosis for recovery of neurological function is poor because of the underlying structural brain disease and superadded significant encephalopathy related to hypoxic brain insults. 9. Clinically the patient has not demonstrated any improvement in his cortical function. Recommendations RECOMMENDATIONS: 1. Continue present management. 2. In light of his poor prognosis, depending on the goals of care, a decision should be made as to how aggressive we want to be with his future care. Daniel Ricardo M.D., M.S.P.H. Neurologist & Clinical Neurophysiologist Daniel Ricardo MD October 16, 2019 15:07
--- NOTE | 2019-10-16 17:18 | Surgery Progress Note ---
Surgery Progress Note Subjective Additional Comments no acute events Objective Last 24 Hour Vital Signs Date Time Temp Pulse Resp B/P (MAP) Pulse Ox O2 Delivery O2 Flow Rate FiO2 10/16/19 16:00 40 10/16/19 16:00 Mechanical Ventilator 10/16/19 16:00 98.9 93 19 129/60 (83) 100 10/16/19 16:00 94 10/16/19 15:00 94 19 118/69 (85) 100 10/16/19 14:00 90 16 128/66 (86) 100 10/16/19 13:00 91 19 126/68 (87) 100 10/16/19 12:00 98.2 83 17 150/65 (93) 100 10/16/19 12:00 40 10/16/19 12:00 84 10/16/19 12:00 Mechanical Ventilator 10/16/19 11:37 85 22 40 10/16/19 11:00 82 19 133/59 (83) 96 10/16/19 10:00 81 19 131/70 (90) 84 10/16/19 09:00 86 19 149/73 (98) 100 10/16/19 08:00 93 10/16/19 08:00 Mechanical Ventilator 10/16/19 08:00 40 10/16/19 08:00 97.0 88 16 137/80 (99) 100 10/16/19 07:00 93 16 131/83 (99) 10/16/19 06:58 88 19 40 10/16/19 06:30 86 19 10/16/19 06:00 93 17 137/68 (91) 100 10/16/19 05:01 89 17 40 10/16/19 05:00 89 19 135/64 (87) 100 10/16/19 04:00 87 10/16/19 04:00 98.0 90 15 128/68 (88) 100 10/16/19 04:00 Mechanical Ventilator 10/16/19 04:00 40 10/16/19 03:00 88 17 143/79 (100) 100 10/16/19 02:40 84 15 40 10/16/19 02:00 90 18 122/62 (82) 100 10/16/19 01:00 81 14 102/55 (71) 100 10/16/19 00:00 89 10/16/19 00:00 98.0 80 13 113/48 (69) 100 10/16/19 00:00 40 10/16/19 00:00 Mechanical Ventilator 10/15/19 23:00 86 16 107/52 (70) 100 10/15/19 22:44 81 14 40 10/15/19 22:00 84 16 111/54 (73) 100 10/15/19 21:06 99.9 10/15/19 21:00 91 19 120/56 (77) 100 10/15/19 20:00 40 10/15/19 20:00 83 10/15/19 20:00 89 17 114/53 (73) 100 10/15/19 20:00 Mechanical Ventilator 10/15/19 19:00 89 17 108/52 (70) 100 10/15/19 19:00 90 19 40 10/15/19 18:00 89 19 93/49 (64) 100 I&O Intake and Output 10/15/19 10/16/19 19:00 07:00 Intake Total 1991.02052 ml 970 ml Output Total 890 ml 450 ml Balance 1101.78857 ml 520 ml Intake Free Water 100 ml IV Total 1571.61074 ml Tube Feeding 420 ml 780 ml Other 90 ml Output Urine Total 890 ml 450 ml Dressing: other Wound: other Drains: other Cardiovascular: RSR Respiratory: decreased breath sounds Abdomen: soft, non-tender, present bowel sounds Extremities: no cyanosis Laboratory Tests Test 10/15/19 20:30 10/16/19 05:00 Urine Color Brown Urine Appearance Slightly cloudy Urine pH 6 (4.5-8.0) Urine Specific [place] 1.010 (1.005-1.035) Urine Protein 2+ (NEGATIVE) H Urine Glucose (UA) Negative (NEGATIVE) Urine Ketones Negative (NEGATIVE) Urine Blood 5+ (NEGATIVE) H Urine Nitrite Negative (NEGATIVE) Urine Bilirubin Negative (NEGATIVE) Urine Urobilinogen 8 MG/DL (0.0-1.0) H Urine Leukocyte Esterase 3+ (NEGATIVE) H Urine RBC 2-4 /HPF (0 - 0) H Urine WBC 10-15 /HPF (0 - 0) H Urine Squamous Epithelial Cells Occasional /LPF Urine Bacteria Few /HPF (NONE) Urine Yeast Moderate /HPF (NONE) H White Blood Count 12.8 K/UL (4.8-10.8) H Red Blood Count 3.15 M/UL (4.70-6.10) L Hemoglobin 8.2 G/DL (14.2-18.0) L Hematocrit 25.3 % (42.0-52.0) L Mean Corpuscular Volume 80 FL (80-99) Mean Corpuscular Hemoglobin 25.9 PG (27.0-31.0) L Mean Corpuscular Hemoglobin Concent 32.3 G/DL (32.0-36.0) Red Cell Distribution Width 16.3 % (11.6-14.8) H Platelet Count 460 K/UL (150-450) H Mean Platelet Volume 5.1 FL (6.5-10.1) L Neutrophils (%) (Auto) 74.0 % (45.0-75.0) Lymphocytes (%) (Auto) 10.5 % (20.0-45.0) L Monocytes (%) (Auto) 12.2 % (1.0-10.0) H Eosinophils (%) (Auto) 2.5 % (0.0-3.0) Basophils (%) (Auto) 0.9 % (0.0-2.0) Sodium Level 140 MMOL/L (136-145) Potassium Level 4.5 MMOL/L (3.5-5.1) Chloride Level 104 MMOL/L (98-107) Carbon Dioxide Level 27 MMOL/L (21-32) Anion Gap 9 mmol/L (5-15) Blood Urea Nitrogen 36 mg/dL (7-18) H Creatinine 1.0 MG/DL (0.55-1.30) Estimat Glomerular Filtration Rate > 60 mL/min (>60) Glucose Level 129 MG/DL (74-106) H Uric Acid 5.2 MG/DL (2.6-7.2) Calcium Level 8.8 MG/DL (8.5-10.1) Phosphorus Level 4.2 MG/DL (2.5-4.9) Magnesium Level 2.4 MG/DL (1.8-2.4) Total Bilirubin 1.1 MG/DL (0.2-1.0) H Direct Bilirubin 0.9 MG/DL (0.0-0.3) H Aspartate Amino Transf (AST/SGOT) 119 U/L (15-37) H Alanine Aminotransferase (ALT/SGPT) 75 U/L (12-78) Alkaline Phosphatase 322 U/L (46-116) H C-Reactive Protein, Quantitative 69.6 mg/dL (0.00-0.90) H Pro-B-Type Natriuretic Peptide 225 pg/mL (0-125) H Total Protein 7.4 G/DL (6.4-8.2) Albumin 1.3 G/DL (3.4-5.0) L Globulin 6.1 g/dL Albumin/Globulin Ratio 0.2 (1.0-2.7) L Plan Problems: (1) UTI (urinary tract infection) (2) Acute respiratory failure Assessment & Plan: There is infiltrate suspected in the right perihilar region obscuring the right hilum. There is a hazy opacity that may partially be accounted for by pleural fluid on the right. Reticular densities are present on the left in the perihilar aspect of the lung. Endotracheal tube is in good position just above the anselmo. Heart size is normal. IMPRESSION: Suspected perihilar airspace disease in the right lung suspicious for pneumonia. Reticular nodular infiltrate in the left lung noted also. Right pleural effusion suspected. Endotracheal tube in good position cont vents support Lungs: Similar bilateral interstitial prominence, greater on the right. Stable right perihilar, mid and lower lung opacities. Similar left lung base opacity. Pleural space: Small left pleural effusion is stable. Loculated right pleural effusion is stable. No pneumothorax. Heart: Unremarkable. No cardiomegaly. Mediastinum: Unremarkable. Bones/joints: Unremarkable. Tubes, lines and devices: Endotracheal tube has been pulled back and is 10 cm above the anselmo near the thoracic inlet. IMPRESSION: Endotracheal tube has been pulled back and is 10 cm above the anselmo near the thoracic inlet. Remainder findings are stable. may need thoracentesis soon Moderate size right pleural effusion with right upper and lower lobe atelectasis/consolidation, as well as mild pulmonary edema.. 1. Patchy opacities throughout the right lung left mid and lower lung, similar to slightly increased. Possible small bilateral pleural effusions. 2. Endotracheal tube terminates in the region of the lower thoracic trachea above the anselmo. consider trach code status? (3) Sepsis Assessment & Plan: Pt cachetic and presented on admission with multiple pressure injuries. Partial thickness pressure injury Cleft of L ear(L)1.2cm x (W)0.4cm. Base of wound moist and viable with small amt sanguineous exudate. Partial thickness pressure injury cleft of R ear(L)0.5cm x (W)0.7cm. Base of wound moist and viable Periwound erythematous.Small amt sanguineous exudate noted. Sacral DTPI(L)5cm x (W)10.5cm. Base of injury is purple with maroon borders. Coccygeal bony protrusion with darker skin tone, and small opening noted to R gluteus (L)0.5cm x (W)0.5cm within base of injury. No further skin breakdown periwound. Intact blood blister noted to R 1st metatarsal head(L)1.1cm x (W)2.5cm. DTPI noted to L heel extending into plantar aspect. Base of injury presents as an intact blood filled blister. Periwound is boggy with non-blanching erythema. R heel is boggy but blanchable. wounds unlikely etiology of sepsis respiratory but given current condition high risk for breakdown and worsening will monitor closely discussed with RN and staff great care being provided coded acls intubated in ICU prognosis guarded Tx.Plan: Apply Betadine to clefts of R and L ears. Pad oxygen tubing with gauze and keep oxygen tubing loose. Apply Moisture Barrier Paste to Sacrum. Cover with Optifoam drsg. Change every 3 days and prn. Apply Betadine to L heel. Cover with Optifoam drsg. Change every 3 days and prn. Apply Betadine to R 1st metatarsal head. Cover with Optifoam drsg. Change every 3 days and prn. Apply Cavilon Skin Barrier R heel. Cover with Optifoam drsg. Change every 7 days and prn. Reposition at least every 2hours or as tolerated. Off-load heels with pillow. on air mattress but not very comfortable appearing cont current care / pulm management (4) Severe anemia (5) Nosocomial pneumonia (6) Atrial fibrillation (7) Acute metabolic encephalopathy (8) History of CVA (cerebrovascular accident) (9) Diabetes mellitus (10) Hypothyroidism (11) Alzheimer's dementia (12) PVC (premature ventricular contraction) (13) Hypertension (14) Squamous cell esophageal cancer (15) Feeding by G-tube (16) Dehydration (17) Anemia (18) Severe malnutrition Assessment & Plan: DAILY ESTIMATED NEEDS: Needs based on underweight, suspected wt loss, wounds/ 63kg 25-33 kcals/kg 7960-6288 total kcals 1.25-2 g protein/kg 78-126 g total protein 25-30 mL/kg 0014-8931 total fluid mLs NUTRITION DIAGNOSIS: * Swallowing difficulty R/T dysphagia w/ h/o CVA as evidenced by now s/p recent PEG placement (08/08/19), on GT feeds, held at time, s/p code blue (09/07), orally intubated, now extubated. * Increased kcal/prot intake needs R/T suspected significant wt loss and underweight status, wounds as evidenced by 10lbs/6.7% wt loss in 1 month, 76% IBW w/ BMI of 18.4, admitted w/ DTPI wound @ sacrum, Lt heel, partial thickness pressure injury cleft of R L ear. CURRENT TF:Osmolite 1.2 @ 60ml/hr x 22 hrs ENTERAL NUTRITION RECOMMENDATIONS: Osmolite 1.2 @ 60ml/hr x 22 hrs + Prosource x 1 to provide 1320ml, 1584kcal, 73g +11g prot, 1082ml free water - Add Prosource x 1 to meet protein needs - HOLD 1 hr before and after synthroid meds. add Prosource 1 pack daily to better meet est pro needs - Flush per MD/ HOB over 30 degrees WITH ELEV BG, rec TF change to Glucerna 1.2 w/ a goal of 60ml/hr x22 hrs to provide 1320ml, 1584kcal, 79g prot ADDITIONAL RECOMMENDATIONS: * PER SNF: HT=6'1" WT= 139lbs ("August weight" from SNF) -> calibrated bedscale wt * Monitor K, need for TF change (K 5.9 upon adm, now wnl) * Wound care: add Vit C 500mg QD + Wesley 1pkt BID via PEG * Monitor BGs, need for NISS: h/o DM per MD (checking A1C not suggested given low hgb) (19) Encounter for PEG (percutaneous endoscopic gastrostomy) (20) At high risk for aspiration (21) Pleural effusion (22) Suspected COVID-19 virus infection Jan Mora October 16, 2019 17:18
[2019-10-17] VITALS (24 sets, daily range): BP systolic 100–126; BP diastolic 39–62
[2019-10-17 05:43] LABS: HEMATOCRIT 23.4 % (42.0-52.0); HEMOGLOBIN 7.5 G/DL (14.2-18.0); MEAN CORPUSCULAR VOLUME 80 FL (80-99); PLATELET COUNT 466 K/UL (150-450); RED BLOOD COUNT 2.92 M/UL (4.70-6.10); RED CELL DISTRIBUTION WIDTH 16.2 % (11.6-14.8); WHITE BLOOD COUNT 12.5 K/UL (4.8-10.8)
[2019-10-17 06:24] LABS: ANION GAP 9 mmol/L (5-15); BLOOD UREA NITROGEN 41 mg/dL (7-18); CARBON DIOXIDE 29 MMOL/L (21-32); CHLORIDE 106 MMOL/L (98-107); CREATININE 1.1 MG/DL (0.55-1.30); POTASSIUM 3.9 MMOL/L (3.5-5.1); SODIUM 144 MMOL/L (136-145)
[2019-10-17] MEDS: Docusate 100mg/10ml Liq GT SCH ×3 (08:12→17:48)
[2019-10-17] MEDS: Heparin 5000 units/ml inj SUBQ SCH ×2 (08:13→21:17)
--- NOTE | 2019-10-17 10:22 | Infectious Diseases Prog Note ---
Assessment/Plan Assessment/Plan 09/23 SP asystole cardiac arrest VDRF 09/23 Fever; SP Mild leukocytosis, recurrent -10/15 CXR: There is been improvement in moderate right pleural effusion. There is improving right basilar infiltrate/atelectasis. No new infiltrates are identified. -10/14 bcx NTD u/a wbc 10-15, nit neg, leuk +3, ucx: yeast Probable UTI -10/01 Bcx Neg u/a wbc tnct; ucx 30-40k C.albicans PNA VDRF, sp intubation 09/08, sp extubation 09/18, re-intubated 09/23 SARS-CoV neg x3 (09/06, 09/08, 09/30) MRSA screen pos 10/09 CXR: Markedly increased and now large right pleural effusion, over 4 days. There is probably some atelectasis on the right as well in addition to the passive atelectasis from pleural fluid. Improved aeration of the left lung 10/05 CXR: Focal patchy infiltrate in the left suprahilar region, not evident previously. Slightly increased small right pleural effusion. Obscured left hemidiaphragm, likely retrocardiac consolidation and/or left pleural fluid , unchanged Stable cardiomegaly 10/02 CXR: Increasing pleural fluid and possibly parenchymal consolidation at the right lung base. Unchanged left basilar pleural and parenchymal disease. sp cx PSA (hensley S), P. stuarti (R. cefepime, ancef, levaquin; S zosyn, ertapenem) 09/30 CXR: Patchy opacities throughout the right lung left mid and lower lung, similar to slightly increased. Possible small bilateral pleural effusions. 09/29 CXR: Increasing right mid and lower lung opacity, may indicate increasing pleural fluid, increasing infiltrate, or both. 09/28 CXR: Developing hazy right basilar opacity. This could represent reaching layering pleural fluid. This could also represent reexpansion pulmonary edema given recent high-volume thoracentesis, or could represent developing ammonia or pulmonary edema. Hazy left basilar opacity, unchanged, may reflect parenchymal infiltrate versus pleural fluid versus both 09/25 CXR: Large right pleural effusion is again demonstrated. Small left pleural effusion is again demonstrated. Left lung is otherwise clear. sp cx PsA (R zozyn, S levo, gentamycin) 09/24 CXR: Moderate size right pleural effusion with right upper and lower lobe atelectasis/consolidation, as well as mild pulmonary edema.. 09/17 CXR: Similar bilateral interstitial prominence, greater on the right.Stable right perihilar, mid and lower lung opacities. Similar left lung base opacity. Small left pleural effusion is stable. Loculated right pleural effusion is stable. No pneumothorax. CXR: Right pleural effusion, also demonstrated on prior 08/09/2019 exam, slightly increased. Hazy right lung parenchymal opacity probably represents a superimposed pleural fluid but infiltrate also possible. 09/06 sp cx: PSA (hensley S) and proteus (hensley S) R pleural effusion, exudative -09/18 SP thorancetesis; removal of 2050 mL fluid; Fluid prot 5 (serum prot 7.2 ); cx Neg QTc 419 RAMAN, improving Encephalopathy -Head CT: Chronic and age-related changes, as described. Multiple old infarcts , as described. Negative for acute intracranial bleed or mass effect. Incidental finding of sphenoid sinus and mastoid disease DM HTN CVA Dementia Nonverbal G tube Plan: Continue to monitor off abx 10/12 SP Meropenem #7 10/06 SP Levaquin #7 10/05 SP IV Vancomycin #6 09/19 SPcefepime # 14/09/09 SP vanc #4 ( Cr increased) ICU care monitor temp and CBC COVID neg x3 bcx, ua, ucx, CXR in AM DW RN Thank you for this consult. [facility] will continue to follow the patient with you. Subjective Allergies: Coded Allergies: PENICILLINS (Verified Allergy, Unknown, 10/27/18) tolretas cephalosporins Subjective afebrile mild leukocytosis Objective Vital Signs Last 24 Hour Vital Signs Date Time Temp Pulse Resp B/P (MAP) Pulse Ox O2 Delivery O2 Flow Rate FiO2 10/17/19 09:23 90 12 40 10/17/19 09:00 86 12 111/49 (69) 98 10/17/19 08:00 98.7 99 15 120/62 (81) 100 10/17/19 08:00 40 10/17/19 08:00 Mechanical Ventilator 10/17/19 08:00 88 10/17/19 07:09 88 14 40 10/17/19 07:00 90 15 110/54 (72) 100 10/17/19 06:30 86 19 10/17/19 06:00 90 19 110/57 (74) 100 10/17/19 05:00 91 21 126/60 (82) 100 10/17/19 04:00 Mechanical Ventilator 10/17/19 04:00 98.5 88 19 114/54 (74) 100 10/17/19 04:00 40 10/17/19 04:00 93 10/17/19 03:14 84 23 40 10/17/19 03:00 86 14 105/48 (67) 100 10/17/19 02:00 86 15 104/46 (65) 97 10/17/19 01:00 87 15 104/45 (64) 98 10/17/19 00:00 88 10/17/19 00:00 Mechanical Ventilator 10/17/19 00:00 40 10/17/19 00:00 98.7 88 14 100/48 (65) 93 10/16/19 23:00 88 15 107/46 (66) 98 10/16/19 22:51 87 21 40 10/16/19 22:00 84 14 102/46 (64) 100 10/16/19 21:00 87 14 108/45 (66) 100 10/16/19 20:00 Mechanical Ventilator 10/16/19 20:00 40 10/16/19 20:00 91 10/16/19 20:00 98.5 86 14 98/46 (63) 93 10/16/19 19:00 88 17 108/57 (74) 92 10/16/19 18:54 91 20 40 10/16/19 18:00 87 14 110/53 (72) 90 10/16/19 17:00 93 19 143/70 (94) 90 10/16/19 16:00 40 10/16/19 16:00 Mechanical Ventilator 10/16/19 16:00 98.9 93 19 129/60 (83) 100 10/16/19 16:00 94 10/16/19 15:26 92 20 40 10/16/19 15:00 94 19 118/69 (85) 100 10/16/19 14:00 90 16 128/66 (86) 100 10/16/19 13:00 91 19 126/68 (87) 100 10/16/19 12:00 98.2 83 17 150/65 (93) 100 10/16/19 12:00 40 10/16/19 12:00 84 10/16/19 12:00 Mechanical Ventilator 10/16/19 11:37 85 22 40 10/16/19 11:00 82 19 133/59 (83) 96 Height (Feet): 5 Height (Inches): 11.00 Weight (Pounds): 141 Objective Gen: NAD. well nourished HEENT: ETT. oral secretions Resp: coarse. equal chest rise. regular rate and rhythm. Abd: Soft. no TTP. nondistended. G tube site c/d/i. Neuro: opens eyes to voice and follows simple commands Microbiology Date/Time Source Procedure Growth Status 10/15/19 20:43 Blood Blood Culture - Preliminary NO GROWTH AFTER 24 HOURS Resulted 10/15/19 20:30 Blood Blood Culture - Preliminary NO GROWTH AFTER 24 HOURS Resulted 10/15/19 20:30 Indwelling Cath Urine Culture - Preliminary YEAST Resulted Laboratory Tests Test 10/17/19 04:30 White Blood Count 12.5 K/UL (4.8-10.8) H Red Blood Count 2.92 M/UL (4.70-6.10) L Hemoglobin 7.5 G/DL (14.2-18.0) L Hematocrit 23.4 % (42.0-52.0) L Mean Corpuscular Volume 80 FL (80-99) Mean Corpuscular Hemoglobin 25.7 PG (27.0-31.0) L Mean Corpuscular Hemoglobin Concent 32.2 G/DL (32.0-36.0) Red Cell Distribution Width 16.2 % (11.6-14.8) H Platelet Count 466 K/UL (150-450) H Mean Platelet Volume 5.1 FL (6.5-10.1) L Neutrophils (%) (Auto) % (45.0-75.0) Lymphocytes (%) (Auto) % (20.0-45.0) Monocytes (%) (Auto) % (1.0-10.0) Eosinophils (%) (Auto) % (0.0-3.0) Basophils (%) (Auto) % (0.0-2.0) Sodium Level 144 MMOL/L (136-145) Potassium Level 3.9 MMOL/L (3.5-5.1) Chloride Level 106 MMOL/L (98-107) Carbon Dioxide Level 29 MMOL/L (21-32) Anion Gap 9 mmol/L (5-15) Blood Urea Nitrogen 41 mg/dL (7-18) H Creatinine 1.1 MG/DL (0.55-1.30) Estimat Glomerular Filtration Rate > 60 mL/min (>60) Glucose Level 123 MG/DL (74-106) H Calcium Level 9.0 MG/DL (8.5-10.1) Current Medications Medications (Trade) Dose Ordered Sig/Kike Route PRN Reason Start Time Stop Time Status Last Admin Dose Admin Acetaminophen (Tylenol) 650 mg Q4H PRN GT Temp >100.5 10/15/19 20:30 11/14/19 20:29 10/15/19 20:36 Albuterol/ Ipratropium (Albuterol/ Ipratropium) 3 ml Q4HRT PRN HHN sob 10/15/19 09:30 10/20/19 09:29 Docusate Sodium (Colace) 100 mg TID GT 10/05/19 13:00 11/03/19 08:59 10/17/19 08:12 Heparin Sodium (Porcine) (Heparin 5000 units/ml) 5,000 units EVERY 12 HOURS SUBQ 09/24/19 09:00 10/22/19 08:59 10/17/19 08:13 Hydralazine HCl (Apresoline) 10 mg Q4H PRN IV Blood pressure over 160 systol 10/15/19 12:00 01/13/20 11:59 Lansoprazole (Prevacid) 30 mg BID GT 10/15/19 18:00 11/03/19 08:59 10/17/19 08:12 Polyethylene Glycol (Miralax) 17 gm DAILY PRN ORAL Constipation 10/13/19 11:30 11/12/19 11:29 Quetiapine Fumarate (SEROqueL) 25 mg Q8H PRN NG Agitation 09/24/19 02:35 10/30/19 02:34 10/08/19 20:45 Sennosides (Senokot) 8.6 mg DAILY PRN ORAL Constipation 10/06/19 10:15 11/05/19 10:14 10/07/19 21:56 Danielle Roach M.D. October 17, 2019 10:22
--- NOTE | 2019-10-17 10:39 | Pulmonolgy Critical Care Note ---
Critical Care - Asmt/Plan Assessment/Plan: ASSESSMENT Sepsis Acute respiratory failure requiring intubation, s/p extubation s/p CP arrest and reintubation 09/23 Failure to wean Pseudomonas and Proteus pneumonia recurrent pleural effusion, s/p thoracentesis 09/18 and 09/27 Acute kidney injury, -secondary to dehydration Suspected COVID 19 infection -ruled out x 2 Hypothyroidism with elevated TSH Severe anemia Transaminitis Dysphagia, feeding by G-tube, Cerebrovascular disease with hx of CVA Toxic metabolic encephalopathy Diabetes mellitus Severe protein calorie malnutrition Multiply pressure injury, present on admission Seizure disorder Alzheimer dementia Anemia DNR/DNI status ( since 10/11) PLAN of CARE ICU vent support, pulmonary toilet CXR 09/30 noted, on weaning protocol, continue not able to wean code status changed to DNR/DNI 10/11 family declined trach s/p 09/[address] effusion - 2050 ml, 09/27 -2300 ml, pleural fluid cx NGT x2 pathology - NGT for malignant cells x2 initial CXR with near complete resolution, no complication CXR 10/09 with increasing R pleural effusion CXR 10/15 - improvement in moderate right pleural effusion. Improving right basilar infiltrate/atelectasis. No new infiltrates. HONEY CoV PCR x 2 -NGT; off isolation influenza screen NGT BCX NGT SCX + Pseudomonas, Proteus, repeated SCX 09/25 + Pseudomonas abx as per ID UCX + Abi , likely colonization completed abx as per ID UCX 10/14 yeast BCX 10/14 NGTD off abx aspiration precautions, GTF , protein supplements as per RD monitor H&H with goal to keep Hgb above 7 BS management trend LFT per neurologist pt with severe bilateral cerebral dysfunction 2 to old bilateral CV disease in addition superimposed encephalopathy related to multiply hypoxic insults and other toxic metabolic imbalances CT of the head showed multiple old infarcts, but negative for acute IV pathology. EEG results pending creat stable avoid nephrotoxics continue Protonix monitor HH at baseline and consider GI eval if further drop elevated D dimer, venous Duplex BLE negative troponin NGT wound care as per surgeon recommendation Synthroid dose uptitrated, repeat TSH in 3 wks supportive care now DNR/DNI status since family declining trach ? terminal extubation need phone family meeting re further goals of care case discussed and evaluated by supervising physician Critical Care - Objective Last 24 Hour Vital Signs Date Time Temp Pulse Resp B/P (MAP) Pulse Ox O2 Delivery O2 Flow Rate FiO2 10/17/19 09:23 90 12 40 10/17/19 09:00 86 12 111/49 (69) 98 10/17/19 08:00 98.7 99 15 120/62 (81) 100 10/17/19 08:00 40 10/17/19 08:00 Mechanical Ventilator 10/17/19 08:00 88 10/17/19 07:09 88 14 40 10/17/19 07:00 90 15 110/54 (72) 100 10/17/19 06:30 86 19 10/17/19 06:00 90 19 110/57 (74) 100 10/17/19 05:00 91 21 126/60 (82) 100 10/17/19 04:00 Mechanical Ventilator 10/17/19 04:00 98.5 88 19 114/54 (74) 100 10/17/19 04:00 40 10/17/19 04:00 93 10/17/19 03:14 84 23 40 10/17/19 03:00 86 14 105/48 (67) 100 10/17/19 02:00 86 15 104/46 (65) 97 10/17/19 01:00 87 15 104/45 (64) 98 10/17/19 00:00 88 10/17/19 00:00 Mechanical Ventilator 10/17/19 00:00 40 10/17/19 00:00 98.7 88 14 100/48 (65) 93 10/16/19 23:00 88 15 107/46 (66) 98 10/16/19 22:51 87 21 40 10/16/19 22:00 84 14 102/46 (64) 100 10/16/19 21:00 87 14 108/45 (66) 100 10/16/19 20:00 Mechanical Ventilator 10/16/19 20:00 40 10/16/19 20:00 91 10/16/19 20:00 98.5 86 14 98/46 (63) 93 10/16/19 19:00 88 17 108/57 (74) 92 10/16/19 18:54 91 20 40 10/16/19 18:00 87 14 110/53 (72) 90 10/16/19 17:00 93 19 143/70 (94) 90 10/16/19 16:00 40 10/16/19 16:00 Mechanical Ventilator 10/16/19 16:00 98.9 93 19 129/60 (83) 100 10/16/19 16:00 94 10/16/19 15:26 92 20 40 10/16/19 15:00 94 19 118/69 (85) 100 10/16/19 14:00 90 16 128/66 (86) 100 10/16/19 13:00 91 19 126/68 (87) 100 10/16/19 12:00 98.2 83 17 150/65 (93) 100 10/16/19 12:00 40 10/16/19 12:00 84 10/16/19 12:00 Mechanical Ventilator 10/16/19 11:37 85 22 40 10/16/19 11:00 82 19 133/59 (83) 96 Objective: Condition: critical, intubated on vent AC mode HEENT: atraumatic, normocephalic, OP with ET in place, intact Lungs: overall clear Heart: HR/BP stable Abdomen: soft, active bowel sounds, G tube Extremities: no C/C/E Micro: Microbiology Date/Time Source Procedure Growth Status 10/15/19 20:43 Blood Blood Culture - Preliminary NO GROWTH AFTER 24 HOURS Resulted 10/15/19 20:30 Blood Blood Culture - Preliminary NO GROWTH AFTER 24 HOURS Resulted 10/15/19 20:30 Indwelling Cath Urine Culture - Preliminary YEAST Resulted Critical Care - Subjective ROS Limited/Unobtainable: Yes Interval Events: remains intubated, failure to wean no further fevers mild persistent leukocytosis CXR 10/15 with some improvement Hgb down to 7.5 Condition: critical IV Access: peripheral EKG Rhythm: Sinus Rhythm - with some PVC FI02: 40 Vent Support Breath Rate: 12 Vent Support Mode: AC Vent Tidal Volume: 550 Sputum Amount: Small PEEP: 5.0 PIP: 28 Secretions: small amount, white color, thick consistency Tube Feeding Amount: 60 I&O: Intake and Output 10/16/19 10/17/19 19:00 07:00 Intake Total 740 ml 980 ml Output Total 615 ml 565 ml Balance 125 ml 415 ml Intake Free Water 20 ml 200 ml Tube Feeding 720 ml 780 ml Output Urine Total 615 ml 565 ml CXR: CXR 10/15 - Improvement in moderate right pleural effusion. Improving right basilar infiltrate/atelectasis. No new infiltrates identified. ET-Tube: 25.0 ET Position: 26 Miranda Pimentel NP October 17, 2019 10:39
--- NOTE | 2019-10-17 10:41 | Diagnostic Imaging Report ---
Indication: Shortness of breath Technique: One view of the chest Comparison: 10/16/2019 Findings: Large right pleural effusion is increased. Left lung and pleural space remain clear. Endotracheal tube tip projects approximately 1 cm above the anselmo. The heart size is normal.. Impression: Increasing large right pleural effusion
--- NOTE | 2019-10-17 11:33 | General Progress Note ---
Assessment/Plan Assessment/Plan: 1. Esophageal cancer. 2. Dysphagia. 3. Diabetes type 2. 4. Dementia. 5. CVA. 6. Hypothyroidism. 7. Seizure disorder. 8. Iron deficiency anemia. 9. Respiratory failure. 10. Dysphagia with G-tube stable H&H GT has been changed and working well GT flushes dietitian in put appreciated>>> TF Javity subhash abx per id pulm care bowel regimen recent labs and notes reviewed D/W the nurse will fu Subjective ROS Limited/Unobtainable: No Allergies: Coded Allergies: PENICILLINS (Verified Allergy, Unknown, 10/27/18) tolretas cephalosporins Objective Last 24 Hour Vital Signs Date Time Temp Pulse Resp B/P (MAP) Pulse Ox O2 Delivery O2 Flow Rate FiO2 10/17/19 09:23 90 12 40 10/17/19 09:00 86 12 111/49 (69) 98 10/17/19 08:00 98.7 99 15 120/62 (81) 100 10/17/19 08:00 40 10/17/19 08:00 Mechanical Ventilator 10/17/19 08:00 88 10/17/19 07:09 88 14 40 10/17/19 07:00 90 15 110/54 (72) 100 10/17/19 06:30 86 19 10/17/19 06:00 90 19 110/57 (74) 100 10/17/19 05:00 91 21 126/60 (82) 100 10/17/19 04:00 Mechanical Ventilator 10/17/19 04:00 98.5 88 19 114/54 (74) 100 10/17/19 04:00 40 10/17/19 04:00 93 10/17/19 03:14 84 23 40 10/17/19 03:00 86 14 105/48 (67) 100 10/17/19 02:00 86 15 104/46 (65) 97 10/17/19 01:00 87 15 104/45 (64) 98 10/17/19 00:00 88 10/17/19 00:00 Mechanical Ventilator 10/17/19 00:00 40 10/17/19 00:00 98.7 88 14 100/48 (65) 93 10/16/19 23:00 88 15 107/46 (66) 98 10/16/19 22:51 87 21 40 10/16/19 22:00 84 14 102/46 (64) 100 10/16/19 21:00 87 14 108/45 (66) 100 10/16/19 20:00 Mechanical Ventilator 10/16/19 20:00 40 10/16/19 20:00 91 10/16/19 20:00 98.5 86 14 98/46 (63) 93 10/16/19 19:00 88 17 108/57 (74) 92 10/16/19 18:54 91 20 40 10/16/19 18:00 87 14 110/53 (72) 90 10/16/19 17:00 93 19 143/70 (94) 90 10/16/19 16:00 40 10/16/19 16:00 Mechanical Ventilator 10/16/19 16:00 98.9 93 19 129/60 (83) 100 10/16/19 16:00 94 10/16/19 15:26 92 20 40 10/16/19 15:00 94 19 118/69 (85) 100 10/16/19 14:00 90 16 128/66 (86) 100 10/16/19 13:00 91 19 126/68 (87) 100 10/16/19 12:00 98.2 83 17 150/65 (93) 100 10/16/19 12:00 40 10/16/19 12:00 84 10/16/19 12:00 Mechanical Ventilator 10/16/19 11:37 85 22 40 Intake and Output 10/16/19 10/17/19 19:00 07:00 Intake Total 740 ml 980 ml Output Total 615 ml 565 ml Balance 125 ml 415 ml Intake Free Water 20 ml 200 ml Tube Feeding 720 ml 780 ml Output Urine Total 615 ml 565 ml Laboratory Tests 10/17/19 04:30: White Blood Count 12.5H, Red Blood Count 2.92L, Hemoglobin 7.5L, Hematocrit 23.4L, Mean Corpuscular Volume 80, Mean Corpuscular Hemoglobin 25.7L, Mean Corpuscular Hemoglobin Concent 32.2, Red Cell Distribution Width 16.2H, Platelet Count 466H, Mean Platelet Volume 5.1L, Neutrophils (%) (Auto) , Lymphocytes (%) (Auto) , Monocytes (%) (Auto) , Eosinophils (%) (Auto) , Basophils (%) (Auto) , Sodium Level 144, Potassium Level 3.9, Chloride Level 106 , Carbon Dioxide Level 29, Anion Gap 9, Blood Urea Nitrogen 41H, Creatinine 1.1 , Estimat Glomerular Filtration Rate > 60, Glucose Level 123H, Calcium Level 9.0 Height (Feet): 5 Height (Inches): 11.00 Weight (Pounds): 141 General Appearance: no apparent distress EENT: normal ENT inspection Neck: supple Cardiovascular: normal rate Respiratory/Chest: decreased breath sounds Abdomen: normal bowel sounds, non tender, soft Extremities: non-tender Darrick Rosario MD October 17, 2019 11:32
--- NOTE | 2019-10-17 12:34 | Nephrology Progress Note ---
Assessment/Plan Problem List: (1) RAMAN (acute kidney injury) Assessment: Serum creatinine normalized with hydration (2) Dehydration (3) Suspected COVID-19 virus infection (4) Anemia (5) Sepsis (6) Diabetes mellitus (7) Hypothyroidism Assessment - Acute renal failure - Severe anemia - Sepsis, pneumonia, acute respiratory failure, suspected: Viewed 19 virus infection - Diabetes mellitus - Hypothyroidism - Feeding by G-tube - Squamous cell esophageal cancer - History of CVA (cerebrovascular accident) Plan Patient remains stable from renal standpoint of view Continues to be intubated Per pulmonary October 10: Discussed with KAI Estevez Serum potassium within normal limit range Remains intubated on ventilator Continue per consultants October 14: Discussed with KAI Figueroa Serum potassium high, I believe it most likely due to hemolysis because: BUN and creatinine levels not indicative of worsening renal failure, urine output well maintained At this time will give fluid boluses and 1 dose of Kayexalate and recheck renal parameters tomorrow October 8: Potassium of 5.5 likely hemolyzed Discussed with RN to adjust Muniz catheter and do a bedside bladder ultrasound to assess if there is any urinary retention October 7: Remains stable from renal standpoint to view Remains intubated Continue per consultants Not much to add from renal standpoint. October 6: Remains stable from renal standpoint of view Remains intubated Data reviewed October 5: Dose unchanged from renal standpoint to view Remains intubated October 4: Stable from renal standpoint of view Hemoglobin higher today October 3 Discussed with RN Remains intubated on ventilator Hemoglobin is drifting down Will reorder iron panel Remains stable from renal standpoint of view Remains full code October 2: Discussed with RN. Patient remains intubated. Family declined comfort care. Weaning trial is being attempted Main stable from renal standpoint of view We will order labs for tomorrow. Previously Patient was coded early September 23 morning and back in ICU intubated Serum creatinine miguel to 1.5, now back to normal Stable from renal standpoint of view at this point He is status remains full code Tested negative for COVID-19 Previously: Pneumonia SARS-CoV neg x2 MRSA screen pos sp cx: PSA and proteus Changes Seroquel to "as needed" due to bradycardia Discontinue IV fluid Monitor renal parameters, serum creatinine Adjust electrolytes with supplements Increase Synthroid dose Avoid nephrotoxic's as possible Ventilator management Urine studies Per orders Subjective ROS Limited/Unobtainable: Yes Objective Objective Last 24 Hour Vital Signs Date Time Temp Pulse Resp B/P (MAP) Pulse Ox O2 Delivery O2 Flow Rate FiO2 10/17/19 09:23 90 12 40 10/17/19 09:00 86 12 111/49 (69) 98 10/17/19 08:00 98.7 99 15 120/62 (81) 100 10/17/19 08:00 40 10/17/19 08:00 Mechanical Ventilator 10/17/19 08:00 88 10/17/19 07:09 88 14 40 10/17/19 07:00 90 15 110/54 (72) 100 10/17/19 06:30 86 19 10/17/19 06:00 90 19 110/57 (74) 100 10/17/19 05:00 91 21 126/60 (82) 100 10/17/19 04:00 Mechanical Ventilator 10/17/19 04:00 98.5 88 19 114/54 (74) 100 10/17/19 04:00 40 10/17/19 04:00 93 10/17/19 03:14 84 23 40 10/17/19 03:00 86 14 105/48 (67) 100 10/17/19 02:00 86 15 104/46 (65) 97 10/17/19 01:00 87 15 104/45 (64) 98 10/17/19 00:00 88 10/17/19 00:00 Mechanical Ventilator 10/17/19 00:00 40 10/17/19 00:00 98.7 88 14 100/48 (65) 93 10/16/19 23:00 88 15 107/46 (66) 98 10/16/19 22:51 87 21 40 10/16/19 22:00 84 14 102/46 (64) 100 10/16/19 21:00 87 14 108/45 (66) 100 10/16/19 20:00 Mechanical Ventilator 10/16/19 20:00 40 10/16/19 20:00 91 10/16/19 20:00 98.5 86 14 98/46 (63) 93 10/16/19 19:00 88 17 108/57 (74) 92 10/16/19 18:54 91 20 40 10/16/19 18:00 87 14 110/53 (72) 90 10/16/19 17:00 93 19 143/70 (94) 90 10/16/19 16:00 40 10/16/19 16:00 Mechanical Ventilator 10/16/19 16:00 98.9 93 19 129/60 (83) 100 10/16/19 16:00 94 10/16/19 15:26 92 20 40 10/16/19 15:00 94 19 118/69 (85) 100 10/16/19 14:00 90 16 128/66 (86) 100 10/16/19 13:00 91 19 126/68 (87) 100 Intake and Output 10/16/19 10/17/19 19:00 07:00 Intake Total 740 ml 980 ml Output Total 615 ml 565 ml Balance 125 ml 415 ml Intake Free Water 20 ml 200 ml Tube Feeding 720 ml 780 ml Output Urine Total 615 ml 565 ml Laboratory Tests 10/17/19 04:30: White Blood Count 12.5H, Red Blood Count 2.92L, Hemoglobin 7.5L, Hematocrit 23.4L, Mean Corpuscular Volume 80, Mean Corpuscular Hemoglobin 25.7L, Mean Corpuscular Hemoglobin Concent 32.2, Red Cell Distribution Width 16.2H, Platelet Count 466H, Mean Platelet Volume 5.1L, Neutrophils (%) (Auto) , Lymphocytes (%) (Auto) , Monocytes (%) (Auto) , Eosinophils (%) (Auto) , Basophils (%) (Auto) , Sodium Level 144, Potassium Level 3.9, Chloride Level 106 , Carbon Dioxide Level 29, Anion Gap 9, Blood Urea Nitrogen 41H, Creatinine 1.1 , Estimat Glomerular Filtration Rate > 60, Glucose Level 123H, Calcium Level 9.0 Height (Feet): 5 Height (Inches): 11.00 Weight (Pounds): 141 General Appearance: no apparent distress Cardiovascular: tachycardia Respiratory/Chest: decreased breath sounds Abdomen: distended Objective no change Clovis Benites MD October 17, 2019 12:34
--- NOTE | 2019-10-17 12:41 | General Progress Note ---
Progress Note Progress Note Bioethics Commit Dr. Murrieta, ,myself, and the hospital social contact worker representing the Bioethics Committee met at the request of Dr. Hui, the attending physician on Mr. Vazquez case. The patient has no formal representation and his closest relative is a niece who does not want the responsibility of making medical or end-of- life decisions. She declined to be present at the meeting of the Committee. The patient is 84 with esophaeal cancer and feeding tube, ventilator dependent, with anoxic encephalopathy according to Dr. Hui. He has already been made DNR. Upon review of the information the representatives of the Committee are of the opinion that further aggressive medical care will in all liklihood prove futile given his advanced age, underlying neoplasm and ventilator dependency. If he were to survive he would not have a quality of life acceptable to most. Further aggressive medical care is not in the patient's best interest and the attending would be justified in withdrawing aggressive, life sustaining measures. The case will be presented to the full Committee at its next meeting. The Outpatient Physical Therapist Assistant with communicate our assessment to the patient's niece and be certain to tell her that this Committee is not the medical decision maker. Adama Carvalho M.D. Adama Carvalho MD October 17, 2019 12:40
--- NOTE | 2019-10-17 13:16 | Internal Med Progress Note ---
Subjective Date of Service: October 17, 2019 Physician Name Xander Bah Attending Physician Lamont Hayes MD Current Medications Medications (Trade) Dose Ordered Sig/Kike Route PRN Reason Start Time Stop Time Status Last Admin Dose Admin Acetaminophen (Tylenol) 650 mg Q4H PRN GT Temp >100.5 10/15/19 20:30 11/14/19 20:29 10/15/19 20:36 Albuterol/ Ipratropium (Albuterol/ Ipratropium) 3 ml Q4HRT PRN HHN sob 10/15/19 09:30 10/20/19 09:29 Docusate Sodium (Colace) 100 mg TID GT 10/05/19 13:00 11/03/19 08:59 10/17/19 13:06 Heparin Sodium (Porcine) (Heparin 5000 units/ml) 5,000 units EVERY 12 HOURS SUBQ 09/24/19 09:00 10/22/19 08:59 10/17/19 08:13 Hydralazine HCl (Apresoline) 10 mg Q4H PRN IV Blood pressure over 160 systol 10/15/19 12:00 01/13/20 11:59 Lansoprazole (Prevacid) 30 mg BID GT 10/15/19 18:00 11/03/19 08:59 10/17/19 08:12 Polyethylene Glycol (Miralax) 17 gm DAILY PRN ORAL Constipation 10/13/19 11:30 11/12/19 11:29 Quetiapine Fumarate (SEROqueL) 25 mg Q8H PRN NG Agitation 09/24/19 02:35 10/30/19 02:34 10/08/19 20:45 Sennosides (Senokot) 8.6 mg DAILY PRN ORAL Constipation 10/06/19 10:15 11/05/19 10:14 10/07/19 21:56 Allergies: Coded Allergies: PENICILLINS (Verified Allergy, Unknown, 10/27/18) tolretas cephalosporins ROS Limited/Unobtainable: Yes Subjective 84 YO M admitted with cough and congestion. Cover for Int Med-Dr Hayes. Reintubated 09/24/19 after cardiopulmonary arrest. ICU Objective Last Vital Signs Date Time Temp Pulse Resp B/P (MAP) Pulse Ox O2 Delivery O2 Flow Rate FiO2 10/17/19 13:00 82 15 105/46 (65) 89 10/17/19 12:00 98.4 10/17/19 12:00 40 10/17/19 12:00 Mechanical Ventilator Laboratory Tests Test 10/17/19 04:30 White Blood Count 12.5 K/UL (4.8-10.8) H Red Blood Count 2.92 M/UL (4.70-6.10) L Hemoglobin 7.5 G/DL (14.2-18.0) L Hematocrit 23.4 % (42.0-52.0) L Mean Corpuscular Volume 80 FL (80-99) Mean Corpuscular Hemoglobin 25.7 PG (27.0-31.0) L Mean Corpuscular Hemoglobin Concent 32.2 G/DL (32.0-36.0) Red Cell Distribution Width 16.2 % (11.6-14.8) H Platelet Count 466 K/UL (150-450) H Mean Platelet Volume 5.1 FL (6.5-10.1) L Neutrophils (%) (Auto) % (45.0-75.0) Lymphocytes (%) (Auto) % (20.0-45.0) Monocytes (%) (Auto) % (1.0-10.0) Eosinophils (%) (Auto) % (0.0-3.0) Basophils (%) (Auto) % (0.0-2.0) Sodium Level 144 MMOL/L (136-145) Potassium Level 3.9 MMOL/L (3.5-5.1) Chloride Level 106 MMOL/L (98-107) Carbon Dioxide Level 29 MMOL/L (21-32) Anion Gap 9 mmol/L (5-15) Blood Urea Nitrogen 41 mg/dL (7-18) H Creatinine 1.1 MG/DL (0.55-1.30) Estimat Glomerular Filtration Rate > 60 mL/min (>60) Glucose Level 123 MG/DL (74-106) H Calcium Level 9.0 MG/DL (8.5-10.1) Microbiology Date/Time Source Procedure Growth Status 10/15/19 20:43 Blood Blood Culture - Preliminary Resulted 10/15/19 20:30 Blood Blood Culture - Preliminary NO GROWTH AFTER 24 HOURS Resulted 10/15/19 20:30 Indwelling Cath Urine Culture - Preliminary YEAST Resulted Intake and Output 10/16/19 10/17/19 19:00 07:00 Intake Total 740 ml 980 ml Output Total 615 ml 565 ml Balance 125 ml 415 ml Intake Free Water 20 ml 200 ml Tube Feeding 720 ml 780 ml Output Urine Total 615 ml 565 ml Objective PHYSICAL EXAMINATION: GENERAL: The patient is a thin-appearing male, in no apparent distress. HEENT: Eyes, pupils are equal and responsive to light and accommodation. Extraocular movements are intact. NECK: Supple without lymphadenopathy. CHEST: Mech vent; Lungs are clear to auscultation bilaterally with decreased breath sounds on the right. There are no wheezes appreciated. ABDOMEN: Soft, nontender, and nondistended. Positive bowel sounds. No evidence of hepatosplenomegaly. Currently, no rebound or guarding noted. EXTREMITIES: Negative for clubbing, cyanosis, or edema. RECTAL/GENITAL: Not performed. NEUROLOGIC: Cranial nerves II through XII are grossly intact without focal deficits. Assessment/Plan Assessment/Plan ASSESSMENT: This is an 84-year-old male with: 1. 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 Urinary tract infection=jennifer 3. Right pleural effusion. 4. Esophageal mass. 5. Dysphagia. 6. Diabetes. 7. Alzheimer's dementia. 8. Cerebrovascular disease. 9. Hypothyroidism. 10. Seizure disorder. 11. Iron deficiency anemia. 13. Respiratory failure 14. S/P cardiopulmonary arrest 15. Anemia 16. Patient now DNR/DNI-see critical care note TREATMENT: 1. Right perihilar Pneumonia/pleural effusion. COVID 19 and Influenza negative. A Pulmonary consultation has been obtained with Dr. Vania Hui. S/P right thoracentesis 09/19/19. We will follow recommendation of Pulmonary. ID=Dr Roach ABX= S/P levofloxacin, vanco and Meropenem per ID 2. Urinary tract infection. . A urine culture =jennfier 3. Right pleural effusion. As above, a Pulmonary consultation has been obtained with Dr. Vania Hui. The patient may require thoracentesis during this hospitalization. 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 A Gastroenterology consultation has been obtained with Dr. Darrick Rosario. 5. Dysphagia. The patient is status post PEG placement on 08/08/2019 at [facility] by Dr. Darrick Rosario. 6. Diabetes type 2. A NovoLog sliding scale has been instituted. 7. Alzheimer's dementia. 8. Cerebrovascular disease, status post cerebrovascular accident. 9. Hypothyroidism. Continue levothyroxine as above. 10. Seizure disorder. 11. Iron deficiency anemia. 12. reintubated 09/24/19-see code blue note 13. S/P transfusion 2 units PRBC Xander Bah MD October 17, 2019 13:16
--- NOTE | 2019-10-17 13:44 | Surgery Progress Note ---
Surgery Progress Note Subjective Additional Comments no acute events ill appearing labs reviewed Objective Last 24 Hour Vital Signs Date Time Temp Pulse Resp B/P (MAP) Pulse Ox O2 Delivery O2 Flow Rate FiO2 10/17/19 13:00 82 15 105/46 (65) 89 10/17/19 12:00 83 10/17/19 12:00 98.4 85 14 114/42 (66) 100 10/17/19 12:00 40 10/17/19 12:00 Mechanical Ventilator 10/17/19 11:09 85 15 40 10/17/19 11:00 85 14 118/48 (71) 99 10/17/19 10:00 83 16 112/51 (71) 100 10/17/19 09:23 90 12 40 10/17/19 09:00 86 12 111/49 (69) 98 10/17/19 08:00 98.7 99 15 120/62 (81) 100 10/17/19 08:00 40 10/17/19 08:00 Mechanical Ventilator 10/17/19 08:00 88 10/17/19 07:09 88 14 40 10/17/19 07:00 90 15 110/54 (72) 100 10/17/19 06:30 86 19 10/17/19 06:00 90 19 110/57 (74) 100 10/17/19 05:00 91 21 126/60 (82) 100 10/17/19 04:00 Mechanical Ventilator 10/17/19 04:00 98.5 88 19 114/54 (74) 100 10/17/19 04:00 40 10/17/19 04:00 93 10/17/19 03:14 84 23 40 10/17/19 03:00 86 14 105/48 (67) 100 10/17/19 02:00 86 15 104/46 (65) 97 10/17/19 01:00 87 15 104/45 (64) 98 10/17/19 00:00 88 10/17/19 00:00 Mechanical Ventilator 10/17/19 00:00 40 10/17/19 00:00 98.7 88 14 100/48 (65) 93 10/16/19 23:00 88 15 107/46 (66) 98 10/16/19 22:51 87 21 40 10/16/19 22:00 84 14 102/46 (64) 100 10/16/19 21:00 87 14 108/45 (66) 100 10/16/19 20:00 Mechanical Ventilator 10/16/19 20:00 40 10/16/19 20:00 91 10/16/19 20:00 98.5 86 14 98/46 (63) 93 10/16/19 19:00 88 17 108/57 (74) 92 10/16/19 18:54 91 20 40 10/16/19 18:00 87 14 110/53 (72) 90 10/16/19 17:00 93 19 143/70 (94) 90 10/16/19 16:00 40 10/16/19 16:00 Mechanical Ventilator 10/16/19 16:00 98.9 93 19 129/60 (83) 100 10/16/19 16:00 94 10/16/19 15:26 92 20 40 10/16/19 15:00 94 19 118/69 (85) 100 10/16/19 14:00 90 16 128/66 (86) 100 I&O Intake and Output 10/16/19 10/17/19 19:00 07:00 Intake Total 740 ml 980 ml Output Total 615 ml 565 ml Balance 125 ml 415 ml Intake Free Water 20 ml 200 ml Tube Feeding 720 ml 780 ml Output Urine Total 615 ml 565 ml Dressing: other Wound: other Drains: other Cardiovascular: RSR Respiratory: decreased breath sounds Abdomen: soft, present bowel sounds Extremities: no cyanosis, other Laboratory Tests Test 10/17/19 04:30 White Blood Count 12.5 K/UL (4.8-10.8) H Red Blood Count 2.92 M/UL (4.70-6.10) L Hemoglobin 7.5 G/DL (14.2-18.0) L Hematocrit 23.4 % (42.0-52.0) L Mean Corpuscular Volume 80 FL (80-99) Mean Corpuscular Hemoglobin 25.7 PG (27.0-31.0) L Mean Corpuscular Hemoglobin Concent 32.2 G/DL (32.0-36.0) Red Cell Distribution Width 16.2 % (11.6-14.8) H Platelet Count 466 K/UL (150-450) H Mean Platelet Volume 5.1 FL (6.5-10.1) L Neutrophils (%) (Auto) % (45.0-75.0) Lymphocytes (%) (Auto) % (20.0-45.0) Monocytes (%) (Auto) % (1.0-10.0) Eosinophils (%) (Auto) % (0.0-3.0) Basophils (%) (Auto) % (0.0-2.0) Sodium Level 144 MMOL/L (136-145) Potassium Level 3.9 MMOL/L (3.5-5.1) Chloride Level 106 MMOL/L (98-107) Carbon Dioxide Level 29 MMOL/L (21-32) Anion Gap 9 mmol/L (5-15) Blood Urea Nitrogen 41 mg/dL (7-18) H Creatinine 1.1 MG/DL (0.55-1.30) Estimat Glomerular Filtration Rate > 60 mL/min (>60) Glucose Level 123 MG/DL (74-106) H Calcium Level 9.0 MG/DL (8.5-10.1) Plan Problems: (1) UTI (urinary tract infection) (2) Acute respiratory failure Assessment & Plan: There is infiltrate suspected in the right perihilar region obscuring the right hilum. There is a hazy opacity that may partially be accounted for by pleural fluid on the right. Reticular densities are present on the left in the perihilar aspect of the lung. Endotracheal tube is in good position just above the anselmo. Heart size is normal. IMPRESSION: Suspected perihilar airspace disease in the right lung suspicious for pneumonia. Reticular nodular infiltrate in the left lung noted also. Right pleural effusion suspected. Endotracheal tube in good position cont vents support Lungs: Similar bilateral interstitial prominence, greater on the right. Stable right perihilar, mid and lower lung opacities. Similar left lung base opacity. Pleural space: Small left pleural effusion is stable. Loculated right pleural effusion is stable. No pneumothorax. Heart: Unremarkable. No cardiomegaly. Mediastinum: Unremarkable. Bones/joints: Unremarkable. Tubes, lines and devices: Endotracheal tube has been pulled back and is 10 cm above the anselmo near the thoracic inlet. IMPRESSION: Endotracheal tube has been pulled back and is 10 cm above the anselmo near the thoracic inlet. Remainder findings are stable. may need thoracentesis soon Moderate size right pleural effusion with right upper and lower lobe atelectasis/consolidation, as well as mild pulmonary edema.. 1. Patchy opacities throughout the right lung left mid and lower lung, similar to slightly increased. Possible small bilateral pleural effusions. 2. Endotracheal tube terminates in the region of the lower thoracic trachea above the anselmo. consider trach code status? (3) Sepsis Assessment & Plan: Pt cachetic and presented on admission with multiple pressure injuries. Partial thickness pressure injury Cleft of L ear(L)1.2cm x (W)0.4cm. Base of wound moist and viable with small amt sanguineous exudate. Partial thickness pressure injury cleft of R ear(L)0.5cm x (W)0.7cm. Base of wound moist and viable Periwound erythematous.Small amt sanguineous exudate noted. Sacral DTPI(L)5cm x (W)10.5cm. Base of injury is purple with maroon borders. Coccygeal bony protrusion with darker skin tone, and small opening noted to R gluteus (L)0.5cm x (W)0.5cm within base of injury. No further skin breakdown periwound. Intact blood blister noted to R 1st metatarsal head(L)1.1cm x (W)2.5cm. DTPI noted to L heel extending into plantar aspect. Base of injury presents as an intact blood filled blister. Periwound is boggy with non-blanching erythema. R heel is boggy but blanchable. wounds unlikely etiology of sepsis respiratory but given current condition high risk for breakdown and worsening will monitor closely discussed with RN and staff great care being provided coded acls intubated in ICU prognosis guarded Tx.Plan: Apply Betadine to clefts of R and L ears. Pad oxygen tubing with gauze and keep oxygen tubing loose. Apply Moisture Barrier Paste to Sacrum. Cover with Optifoam drsg. Change every 3 days and prn. Apply Betadine to L heel. Cover with Optifoam drsg. Change every 3 days and prn. Apply Betadine to R 1st metatarsal head. Cover with Optifoam drsg. Change every 3 days and prn. Apply Cavilon Skin Barrier R heel. Cover with Optifoam drsg. Change every 7 days and prn. Reposition at least every 2hours or as tolerated. Off-load heels with pillow. on air mattress but not very comfortable appearing cont current care / pulm management (4) Severe anemia (5) Nosocomial pneumonia (6) Atrial fibrillation (7) Acute metabolic encephalopathy (8) History of CVA (cerebrovascular accident) (9) Diabetes mellitus (10) Hypothyroidism (11) Alzheimer's dementia (12) PVC (premature ventricular contraction) (13) Hypertension (14) Squamous cell esophageal cancer (15) Feeding by G-tube (16) Dehydration (17) Anemia (18) Severe malnutrition Assessment & Plan: DAILY ESTIMATED NEEDS: Needs based on underweight, suspected wt loss, wounds/ 63kg 25-33 kcals/kg 2355-6248 total kcals 1.25-2 g protein/kg 78-126 g total protein 25-30 mL/kg 3060-5472 total fluid mLs NUTRITION DIAGNOSIS: * Swallowing difficulty R/T dysphagia w/ h/o CVA as evidenced by now s/p recent PEG placement (08/08/19), on GT feeds, held at time, s/p code blue (09/07), orally intubated, now extubated. * Increased kcal/prot intake needs R/T suspected significant wt loss and underweight status, wounds as evidenced by 10lbs/6.7% wt loss in 1 month, 76% IBW w/ BMI of 18.4, admitted w/ DTPI wound @ sacrum, Lt heel, partial thickness pressure injury cleft of R L ear. CURRENT TF:Osmolite 1.2 @ 60ml/hr x 22 hrs ENTERAL NUTRITION RECOMMENDATIONS: Osmolite 1.2 @ 60ml/hr x 22 hrs + Prosource x 1 to provide 1320ml, 1584kcal, 73g +11g prot, 1082ml free water - Add Prosource x 1 to meet protein needs - HOLD 1 hr before and after synthroid meds. add Prosource 1 pack daily to better meet est pro needs - Flush per MD/ HOB over 30 degrees WITH ELEV BG, rec TF change to Glucerna 1.2 w/ a goal of 60ml/hr x22 hrs to provide 1320ml, 1584kcal, 79g prot ADDITIONAL RECOMMENDATIONS: * PER SNF: HT=6'1" WT= 139lbs ("August weight" from SNF) -> calibrated bedscale wt * Monitor K, need for TF change (K 5.9 upon adm, now wnl) * Wound care: add Vit C 500mg QD + Wesley 1pkt BID via PEG * Monitor BGs, need for NISS: h/o DM per MD (checking A1C not suggested given low hgb) (19) Encounter for PEG (percutaneous endoscopic gastrostomy) (20) At high risk for aspiration (21) Pleural effusion (22) Suspected COVID-19 virus infection Jan Mora October 17, 2019 13:43
--- NOTE | 2019-10-17 15:50 | Neurology Progress Note ---
Interim History Interim History Interim History Mr. Yaniv Vazquez is an 84-year-old, black gentleman, of unknown handedness, who does have a past history of hypertension, diabetes mellitus, dyslipidemia, hypothyroidism, esophageal cancer, cerebrovascular disease -the details of which are unknown to us, and Alzheimer's disease, was brought into the [facility] emergency room from his halfway on 09/07/2019. Since he has been in the hospital he has had multiple endotracheal intubations followed by extubations followed by reintubation because of bouts of respiratory failure. As per his nurse there has been no significant change in his condition. At this point in time, he continues to open his eyes momentarily on deep painful stimulation, but is otherwise unresponsive. There has been no significant change in his medical or neurological condition. Review of Systems Neuro Review of Systems Unable to obtain. Objective Physical Exam Last Vital Signs Date Time Temp Pulse Resp B/P (MAP) Pulse Ox O2 Delivery O2 Flow Rate FiO2 10/17/19 15:00 84 15 109/51 (70) 100 10/17/19 12:00 98.4 10/17/19 12:00 40 10/17/19 12:00 Mechanical Ventilator Laboratory Tests Test 10/17/19 04:30 White Blood Count 12.5 K/UL (4.8-10.8) H Red Blood Count 2.92 M/UL (4.70-6.10) L Hemoglobin 7.5 G/DL (14.2-18.0) L Hematocrit 23.4 % (42.0-52.0) L Mean Corpuscular Volume 80 FL (80-99) Mean Corpuscular Hemoglobin 25.7 PG (27.0-31.0) L Mean Corpuscular Hemoglobin Concent 32.2 G/DL (32.0-36.0) Red Cell Distribution Width 16.2 % (11.6-14.8) H Platelet Count 466 K/UL (150-450) H Mean Platelet Volume 5.1 FL (6.5-10.1) L Neutrophils (%) (Auto) % (45.0-75.0) Lymphocytes (%) (Auto) % (20.0-45.0) Monocytes (%) (Auto) % (1.0-10.0) Eosinophils (%) (Auto) % (0.0-3.0) Basophils (%) (Auto) % (0.0-2.0) Sodium Level 144 MMOL/L (136-145) Potassium Level 3.9 MMOL/L (3.5-5.1) Chloride Level 106 MMOL/L (98-107) Carbon Dioxide Level 29 MMOL/L (21-32) Anion Gap 9 mmol/L (5-15) Blood Urea Nitrogen 41 mg/dL (7-18) H Creatinine 1.1 MG/DL (0.55-1.30) Estimat Glomerular Filtration Rate > 60 mL/min (>60) Glucose Level 123 MG/DL (74-106) H Calcium Level 9.0 MG/DL (8.5-10.1) Neurologic Exam Objective PHYSICAL EXAMINATION: GENERAL: He is a well-developed, relatively well-nourished, black gentleman, lying in an ICU bed, connected to ventilator, via an orotracheal tube. HEAD: Normocephalic and atraumatic. NECK: No neck rigidity was observed. EENT: Benign. NEUROLOGIC EXAMINATION: MENTAL STATUS EXAMINATION: He opened his eyes momentarily on applying deep painful stimuli. He was unable to interact in any other manner. Further mental status testing was impossible. SPEECH: Could not be tested. LANGUAGE: He did not follow simple commands or express himself in any way. CRANIAL NERVE EXAMINATION: II: He did not blink to threat. III, IV, : External ocular movements were present on oculocephalic maneuvers. The pupils were 3 mm in diameter and did not react to light. V-VII: The corneal reflexes were present but subdued bilaterally. VIII: He did not respond to loud sounds and had no nystagmus. IX-X: The gag reflex was absent on manipulating the endotracheal tube. XI: The sternocleidomastoids and trapezii did not function. XII: Could not be tested adequately. MOTOR SYSTEM: The tone was increased in all 4 extremities with a significant degree of spasticity. Examination of muscle mass revealed generalized muscle wasting with bilateral upper and lower extremity contractures in flexion. No movements was were noted even on applying deep painful stimuli. SENSORY EXAMINATION: He responded to deep pain with brief eye opening. COORDINATION: Could not be tested. REFLEXES: 0 at the biceps, triceps, brachioradialis, knees and ankles. The plantar responses were mute bilaterally. STANCE: Could not be tested. GAIT: Could not be tested. ABNORMAL MOVEMENTS: None Impression/Recommendations Diagnostic Impression DIAGNOSTIC IMPRESSION: 1. Mr. Yaniv Vazquez is an 84-year-old, black gentleman, of unknown handedness, who does have a past history of hypertension, diabetes mellitus, dyslipidemia, hypothyroidism, esophageal cancer, cerebrovascular disease -the details of which are unknown to us, and Alzheimer's disease, was brought into the [facility] emergency room from his halfway on 09/07/2019. 2. Since he has been in the hospital he has had multiple endotracheal intubations followed by extubations followed by reintubation because of bouts of respiratory failure. His cognitive function has progressively worsened and thus this consultation was requested to evaluate the patient from a neurological point of view to help prognosticate. 3. As per his nurse there has been no significant change in his condition. At this point in time, he continues to open his eyes momentarily on deep painful stimulation, but is otherwise unresponsive. There has been no significant change in his medical or neurological condition. 4. On neurological examination, at this time, he does open his eyes on deep painful stimulation but rapidly closes them. He does not respond in any other manner. He does have brainstem function in the form of extraocular eye movements on oculocephalic maneuvers, and corneal reflexes. He has severe spasticity in all 4 extremities and significant wasting and contractures involving all 4 extremities. He does not move any of his extremities even on applying deep painful stimuli. His deep tendon reflexes are globally absent and his plantar responses mute. 5. The CT scan of the brain without contrast performed on 10/14/2019 revealed deep white matter changes consistent with chronic microvascular ischemic disease. In addition old subcortical infarcts were seen in the frontal deep white matter bilaterally, the left thalamus, and the right cerebellum. 6. The EEG performed on 10/14/2019 revealed slowing of the background in the delta and theta range with triphasic waveforms. These findings are consistent with a moderately severe encephalopathy with a metabolic component. 7. The patient's history and neurological examination are most consistent with severe bilateral cerebral dysfunction. This dysfunction is due to old bilateral cerebrovascular disease and in addition the superimposed encephalopathy related to multiple hypoxic insults and other toxic metabolic imbalances. 8. Clinically the patient has not demonstrated any improvement in his cortical function but continues to have stable brainstem function. 9. The prognosis for recovery of neurological function is poor because of the underlying structural brain disease and superadded significant encephalopathy related to hypoxic brain insults. Recommendations RECOMMENDATIONS: 1. Continue present management. 2. In light of his poor prognosis, depending on the goals of care, a decision should be made as to how aggressive we want to be with his future care. Daniel Ricardo M.D., M.S.P.H. Neurologist & Clinical Neurophysiologist Daniel Ricardo MD October 17, 2019 15:50
[2019-10-17] MEDS: Acetaminophen 650mg/20.3ml GT PRN (21:53)
[2019-10-18] VITALS (24 sets, daily range): BP systolic 97–137; BP diastolic 42–66
[2019-10-18 06:42] LABS: HEMATOCRIT 22.7 % (42.0-52.0); HEMOGLOBIN 7.3 G/DL (14.2-18.0); MEAN CORPUSCULAR VOLUME 81 FL (80-99); PLATELET COUNT 430 K/UL (150-450); RED CELL DISTRIBUTION WIDTH 16.1 % (11.6-14.8); WHITE BLOOD COUNT 13.1 K/UL (4.8-10.8)
[2019-10-18 07:15] LABS: ANION GAP 7 mmol/L (5-15); BLOOD UREA NITROGEN 41 mg/dL (7-18); CALCIUM 8.5 MG/DL (8.5-10.1); CARBON DIOXIDE 30 MMOL/L (21-32); CHLORIDE 108 MMOL/L (98-107); CREATININE 1.2 MG/DL (0.55-1.30); POTASSIUM 3.6 MMOL/L (3.5-5.1); SODIUM 145 MMOL/L (136-145)
--- NOTE | 2019-10-18 07:35 | General Progress Note ---
Assessment/Plan Assessment/Plan: 1. Esophageal cancer. 2. Dysphagia. 3. Diabetes type 2. 4. Dementia. 5. CVA. 6. Hypothyroidism. 7. Seizure disorder. 8. Iron deficiency anemia. 9. Respiratory failure. 10. Dysphagia with G-tube stable H&H GT has been changed and working well GT flushes dietitian in put appreciated>>> TF Javity 1.2 at 60 cc subhash abx per id pulm care bowel regimen recent labs and notes reviewed D/W the nurse will fu Subjective ROS Limited/Unobtainable: No Allergies: Coded Allergies: PENICILLINS (Verified Allergy, Unknown, 10/27/18) tolretas cephalosporins Objective Last 24 Hour Vital Signs Date Time Temp Pulse Resp B/P (MAP) Pulse Ox O2 Delivery O2 Flow Rate FiO2 10/18/19 07:00 84 18 130/54 (79) 100 10/18/19 06:30 89 19 10/18/19 06:00 85 22 137/64 (88) 100 10/18/19 05:00 77 15 117/66 (83) 100 10/18/19 04:34 82 19 40 10/18/19 04:00 Mechanical Ventilator 10/18/19 04:00 98.3 76 20 112/50 (70) 100 10/18/19 04:00 40 10/18/19 04:00 79 10/18/19 03:30 75 16 40 10/18/19 03:00 75 13 107/45 (65) 100 10/18/19 02:00 72 15 103/42 (62) 100 10/18/19 01:30 81 16 40 10/18/19 01:00 75 14 97/48 (64) 100 10/18/19 00:00 99.1 76 13 107/49 (68) 100 10/18/19 00:00 77 10/18/19 00:00 Mechanical Ventilator 10/18/19 00:00 40 10/17/19 23:30 82 17 40 10/17/19 23:00 76 14 105/39 (61) 100 10/17/19 22:23 99.6 10/17/19 22:00 100.6 83 15 115/44 (67) 100 10/17/19 21:00 83 16 115/43 (67) 96 10/17/19 21:00 80 16 40 10/17/19 20:00 Mechanical Ventilator 10/17/19 20:00 99.8 81 15 105/43 (63) 96 10/17/19 20:00 40 10/17/19 20:00 81 10/17/19 19:30 83 16 40 10/17/19 19:00 81 13 106/45 (65) 86 10/17/19 18:00 82 15 116/43 (67) 84 10/17/19 17:00 81 15 110/43 (65) 100 10/17/19 16:53 81 16 40 10/17/19 16:00 98.6 82 18 105/42 (63) 100 10/17/19 16:00 Mechanical Ventilator 10/17/19 16:00 83 10/17/19 16:00 40 10/17/19 15:19 88 15 40 10/17/19 15:00 84 15 109/51 (70) 100 10/17/19 14:00 83 14 107/45 (65) 95 10/17/19 13:20 82 17 40 10/17/19 13:00 82 15 105/46 (65) 98 10/17/19 12:00 83 10/17/19 12:00 98.4 85 14 114/42 (66) 100 10/17/19 12:00 40 10/17/19 12:00 Mechanical Ventilator 10/17/19 11:09 85 15 40 10/17/19 11:00 85 14 118/48 (71) 99 10/17/19 10:00 83 16 112/51 (71) 100 10/17/19 09:23 90 12 40 10/17/19 09:00 86 12 111/49 (69) 98 10/17/19 08:00 98.7 99 15 120/62 (81) 100 10/17/19 08:00 40 10/17/19 08:00 Mechanical Ventilator 10/17/19 08:00 88 Intake and Output 10/17/19 10/18/19 19:00 07:00 Intake Total 740 ml 720 ml Output Total 575 ml 360 ml Balance 165 ml 360 ml Intake Free Water 20 ml Tube Feeding 720 ml 720 ml Output Urine Total 575 ml 360 ml Laboratory Tests 10/18/19 05:39: White Blood Count 13.1H, Red Blood Count 2.80L, Hemoglobin 7.3L, Hematocrit 22.7L, Mean Corpuscular Volume 81, Mean Corpuscular Hemoglobin 25.9L, Mean Corpuscular Hemoglobin Concent 32.0, Red Cell Distribution Width 16.1H, Platelet Count 430, Mean Platelet Volume 5.1L, Neutrophils (%) (Auto) , Lymphocytes (%) (Auto) , Monocytes (%) (Auto) , Eosinophils (%) (Auto) , Basophils (%) (Auto) , Neutrophils % (Manual) [Pending], Lymphocytes % (Manual) [Pending], Platelet Estimate [Pending], Platelet Morphology [Pending], Sodium Level 145, Potassium Level 3.6, Chloride Level 108H, Carbon Dioxide Level 30, Anion Gap 7, Blood Urea Nitrogen 41H, Creatinine 1.2, Estimat Glomerular Filtration Rate > 60, Glucose Level 165H, Calcium Level 8.5 Height (Feet): 5 Height (Inches): 11.00 Weight (Pounds): 142 General Appearance: no apparent distress EENT: normal ENT inspection Neck: normal alignment Cardiovascular: normal rate Respiratory/Chest: decreased breath sounds Abdomen: normal bowel sounds, non tender, soft Extremities: non-tender Darrick Rosario MD October 18, 2019 07:35
[2019-10-18] MEDS: Docusate 100mg/10ml Liq GT SCH ×3 (08:11→18:29)
[2019-10-18] MEDS: Heparin 5000 units/ml inj SUBQ SCH ×2 (08:12→20:21)
--- NOTE | 2019-10-18 10:51 | Infectious Diseases Prog Note ---
Assessment/Plan Assessment/Plan Sepsis Gram positive bacteremia Fever; recurrent Mild leukocytosis, recurrent, increasing -10/16 CXR: Increasing large right pleural effusion -10/15 CXR: There is been improvement in moderate right pleural effusion. There is improving right basilar infiltrate/atelectasis. No new infiltrates are identified. -10/14 bcx 06/11 CoNS u/a wbc 10-15, nit neg, leuk +3, ucx: C. albicans, GPC 09/23 SP asystole cardiac arrest VDRF 09/23 Probable UTI, sp rx -10/01 Bcx Neg u/a wbc tnct; ucx 30-40k C.albicans PNA VDRF, sp intubation 09/08, sp extubation 09/18, re-intubated 09/23 SARS-CoV neg x3 (09/06, 09/08, 09/30) MRSA screen pos 10/09 CXR: Markedly increased and now large right pleural effusion, over 4 days. There is probably some atelectasis on the right as well in addition to the passive atelectasis from pleural fluid. Improved aeration of the left lung 10/05 CXR: Focal patchy infiltrate in the left suprahilar region, not evident previously. Slightly increased small right pleural effusion. Obscured left hemidiaphragm, likely retrocardiac consolidation and/or left pleural fluid , unchanged Stable cardiomegaly 10/02 CXR: Increasing pleural fluid and possibly parenchymal consolidation at the right lung base. Unchanged left basilar pleural and parenchymal disease. sp cx PSA (hensley S), P. stuarti (R. cefepime, ancef, levaquin; S zosyn, ertapenem) 09/30 CXR: Patchy opacities throughout the right lung left mid and lower lung, similar to slightly increased. Possible small bilateral pleural effusions. 09/29 CXR: Increasing right mid and lower lung opacity, may indicate increasing pleural fluid, increasing infiltrate, or both. 09/28 CXR: Developing hazy right basilar opacity. This could represent reaching layering pleural fluid. This could also represent reexpansion pulmonary edema given recent high-volume thoracentesis, or could represent developing ammonia or pulmonary edema. Hazy left basilar opacity, unchanged, may reflect parenchymal infiltrate versus pleural fluid versus both 09/25 CXR: Large right pleural effusion is again demonstrated. Small left pleural effusion is again demonstrated. Left lung is otherwise clear. sp cx PsA (R zozyn, S levo, gentamycin) 09/24 CXR: Moderate size right pleural effusion with right upper and lower lobe atelectasis/consolidation, as well as mild pulmonary edema.. 09/17 CXR: Similar bilateral interstitial prominence, greater on the right.Stable right perihilar, mid and lower lung opacities. Similar left lung base opacity. Small left pleural effusion is stable. Loculated right pleural effusion is stable. No pneumothorax. CXR: Right pleural effusion, also demonstrated on prior 08/09/2019 exam, slightly increased. Hazy right lung parenchymal opacity probably represents a superimposed pleural fluid but infiltrate also possible. 09/06 sp cx: PSA (hensley S) and proteus (hensley S) R pleural effusion, exudative -09/18 SP thorancetesis; removal of 2050 mL fluid; Fluid prot 5 (serum prot 7.2 ); cx Neg QTc 419 RAMAN, improving Encephalopathy -Head CT: Chronic and age-related changes, as described. Multiple old infarcts , as described. Negative for acute intracranial bleed or mass effect. Incidental finding of sphenoid sinus and mastoid disease DM HTN CVA Dementia Nonverbal G tube Plan: Start IV Vancomycin and Micafungin 10/12 SP Meropenem #7 10/06 SP Levaquin #7 10/05 SP IV Vancomycin #6 09/19 SPcefepime # 09/09 SP vanc #4 ( Cr increased) ICU care monitor temp and CBC COVID neg x3 Bcx x2, sp cx DW RN Thank you for this consult. [facility] will continue to follow the patient with you. Subjective Allergies: Coded Allergies: PENICILLINS (Verified Allergy, Unknown, 10/27/18) tolretas cephalosporins Subjective tm 100.6 wbc increased bacteremic Objective Vital Signs Last 24 Hour Vital Signs Date Time Temp Pulse Resp B/P (MAP) Pulse Ox O2 Delivery O2 Flow Rate FiO2 10/18/19 10:00 83 18 137/53 (81) 100 10/18/19 09:00 86 17 120/48 (72) 100 10/18/19 08:00 85 10/18/19 08:00 97.9 87 17 125/53 (77) 100 10/18/19 08:00 40 10/18/19 08:00 Mechanical Ventilator 10/18/19 07:01 84 16 40 10/18/19 07:00 84 18 130/54 (79) 100 10/18/19 06:30 89 19 10/18/19 06:00 85 22 137/64 (88) 100 10/18/19 05:00 77 15 117/66 (83) 100 10/18/19 04:34 82 19 40 10/18/19 04:00 Mechanical Ventilator 10/18/19 04:00 98.3 76 20 112/50 (70) 100 10/18/19 04:00 40 10/18/19 04:00 79 10/18/19 03:30 75 16 40 10/18/19 03:00 75 13 107/45 (65) 100 10/18/19 02:00 72 15 103/42 (62) 100 10/18/19 01:30 81 16 40 10/18/19 01:00 75 14 97/48 (64) 100 10/18/19 00:00 99.1 76 13 107/49 (68) 100 10/18/19 00:00 77 10/18/19 00:00 Mechanical Ventilator 10/18/19 00:00 40 10/17/19 23:30 82 17 40 10/17/19 23:00 76 14 105/39 (61) 100 10/17/19 22:23 99.6 10/17/19 22:00 100.6 83 15 115/44 (67) 100 10/17/19 21:00 83 16 115/43 (67) 96 10/17/19 21:00 80 16 40 10/17/19 20:00 Mechanical Ventilator 10/17/19 20:00 99.8 81 15 105/43 (63) 96 10/17/19 20:00 40 10/17/19 20:00 81 10/17/19 19:30 83 16 40 10/17/19 19:00 81 13 106/45 (65) 86 10/17/19 18:00 82 15 116/43 (67) 84 10/17/19 17:00 81 15 110/43 (65) 100 10/17/19 16:53 81 16 40 10/17/19 16:00 98.6 82 18 105/42 (63) 100 10/17/19 16:00 Mechanical Ventilator 10/17/19 16:00 83 10/17/19 16:00 40 10/17/19 15:19 88 15 40 10/17/19 15:00 84 15 109/51 (70) 100 10/17/19 14:00 83 14 107/45 (65) 95 10/17/19 13:20 82 17 40 10/17/19 13:00 82 15 105/46 (65) 98 10/17/19 12:00 83 10/17/19 12:00 98.4 85 14 114/42 (66) 100 10/17/19 12:00 40 10/17/19 12:00 Mechanical Ventilator 10/17/19 11:09 85 15 40 10/17/19 11:00 85 14 118/48 (71) 99 Height (Feet): 5 Height (Inches): 11.00 Weight (Pounds): 142 Objective Gen: NAD. well nourished HEENT: ETT. oral secretions Resp: coarse. equal chest rise. regular rate and rhythm. Abd: Soft. no TTP. nondistended. G tube site c/d/i. Neuro: opens eyes to voice and follows simple commands Microbiology Date/Time Source Procedure Growth Status 10/15/19 20:43 Blood Blood Culture - Preliminary Staphylococcus Sp Coag Neg Resulted 10/15/19 20:30 Blood Blood Culture - Preliminary NO GROWTH AFTER 24 HOURS Resulted 10/15/19 20:30 Indwelling Cath Urine Culture - Preliminary Abi Albicans Gram Positive Cocci Resulted Laboratory Tests Test 10/18/19 05:39 White Blood Count 13.1 K/UL (4.8-10.8) H Red Blood Count 2.80 M/UL (4.70-6.10) L Hemoglobin 7.3 G/DL (14.2-18.0) L Hematocrit 22.7 % (42.0-52.0) L Mean Corpuscular Volume 81 FL (80-99) Mean Corpuscular Hemoglobin 25.9 PG (27.0-31.0) L Mean Corpuscular Hemoglobin Concent 32.0 G/DL (32.0-36.0) Red Cell Distribution Width 16.1 % (11.6-14.8) H Platelet Count 430 K/UL (150-450) Mean Platelet Volume 5.1 FL (6.5-10.1) L Neutrophils (%) (Auto) % (45.0-75.0) Lymphocytes (%) (Auto) % (20.0-45.0) Monocytes (%) (Auto) % (1.0-10.0) Eosinophils (%) (Auto) % (0.0-3.0) Basophils (%) (Auto) % (0.0-2.0) Differential Total Cells Counted 100 Neutrophils % (Manual) 75 % (45-75) Lymphocytes % (Manual) 15 % (20-45) L Monocytes % (Manual) 8 % (1-10) Eosinophils % (Manual) 2 % (0-3) Basophils % (Manual) 0 % (0-2) Band Neutrophils 0 % (0-8) Platelet Estimate Adequate Platelet Morphology Normal Hypochromasia 1+ Microcytosis 1+ Sodium Level 145 MMOL/L (136-145) Potassium Level 3.6 MMOL/L (3.5-5.1) Chloride Level 108 MMOL/L (98-107) H Carbon Dioxide Level 30 MMOL/L (21-32) Anion Gap 7 mmol/L (5-15) Blood Urea Nitrogen 41 mg/dL (7-18) H Creatinine 1.2 MG/DL (0.55-1.30) Estimat Glomerular Filtration Rate > 60 mL/min (>60) Glucose Level 165 MG/DL (74-106) H Calcium Level 8.5 MG/DL (8.5-10.1) Current Medications Medications (Trade) Dose Ordered Sig/Kike Route PRN Reason Start Time Stop Time Status Last Admin Dose Admin Acetaminophen (Tylenol) 650 mg Q4H PRN GT Temp >100.5 10/15/19 20:30 11/14/19 20:29 10/17/19 21:53 Albuterol/ Ipratropium (Albuterol/ Ipratropium) 3 ml Q4HRT PRN HHN sob 10/15/19 09:30 10/20/19 09:29 Docusate Sodium (Colace) 100 mg TID GT 10/05/19 13:00 11/03/19 08:59 10/18/19 08:11 Heparin Sodium (Porcine) (Heparin 5000 units/ml) 5,000 units EVERY 12 HOURS SUBQ 09/24/19 09:00 10/22/19 08:59 10/18/19 08:12 Hydralazine HCl (Apresoline) 10 mg Q4H PRN IV Blood pressure over 160 systol 10/15/19 12:00 01/13/20 11:59 Lansoprazole (Prevacid) 30 mg BID GT 10/15/19 18:00 11/03/19 08:59 10/18/19 08:11 Polyethylene Glycol (Miralax) 17 gm DAILY PRN ORAL Constipation 10/13/19 11:30 11/12/19 11:29 Quetiapine Fumarate (SEROqueL) 25 mg Q8H PRN NG Agitation 09/24/19 02:35 10/30/19 02:34 10/08/19 20:45 Sennosides (Senokot) 8.6 mg DAILY PRN ORAL Constipation 10/06/19 10:15 11/05/19 10:14 10/07/19 21:56 Danielle Roach M.D. October 18, 2019 10:50
--- NOTE | 2019-10-18 11:56 | Nephrology Progress Note ---
Assessment/Plan Problem List: (1) RAMAN (acute kidney injury) Assessment: Serum creatinine normalized with hydration (2) Dehydration (3) Suspected COVID-19 virus infection (4) Anemia (5) Sepsis (6) Diabetes mellitus (7) Hypothyroidism Assessment - Acute renal failure - Severe anemia - Sepsis, pneumonia, acute respiratory failure, suspected: Viewed 19 virus infection - Diabetes mellitus - Hypothyroidism - Feeding by G-tube - Squamous cell esophageal cancer - History of CVA (cerebrovascular accident) Plan Labs reviewed Patient remains stable from renal standpoint of view Continues to be intubated Per pulmonary October 10: Discussed with KAI Estevez Serum potassium within normal limit range Remains intubated on ventilator Continue per consultants October 14: Discussed with KAI Figueroa Serum potassium high, I believe it most likely due to hemolysis because: BUN and creatinine levels not indicative of worsening renal failure, urine output well maintained At this time will give fluid boluses and 1 dose of Kayexalate and recheck renal parameters tomorrow October 8: Potassium of 5.5 likely hemolyzed Discussed with RN to adjust Muniz catheter and do a bedside bladder ultrasound to assess if there is any urinary retention October 7: Remains stable from renal standpoint to view Remains intubated Continue per consultants Not much to add from renal standpoint. October 6: Remains stable from renal standpoint of view Remains intubated Data reviewed October 5: Dose unchanged from renal standpoint to view Remains intubated October 4: Stable from renal standpoint of view Hemoglobin higher today October 3 Discussed with RN Remains intubated on ventilator Hemoglobin is drifting down Will reorder iron panel Remains stable from renal standpoint of view Remains full code October 2: Discussed with RN. Patient remains intubated. Family declined comfort care. Weaning trial is being attempted Main stable from renal standpoint of view We will order labs for tomorrow. Previously Patient was coded early September 23 morning and back in ICU intubated Serum creatinine miguel to 1.5, now back to normal Stable from renal standpoint of view at this point He is status remains full code Tested negative for COVID-19 Previously: Pneumonia SARS-CoV neg x2 MRSA screen pos sp cx: PSA and proteus Changes Seroquel to "as needed" due to bradycardia Discontinue IV fluid Monitor renal parameters, serum creatinine Adjust electrolytes with supplements Increase Synthroid dose Avoid nephrotoxic's as possible Ventilator management Urine studies Per orders Subjective ROS Limited/Unobtainable: Yes Objective Objective Last 24 Hour Vital Signs Date Time Temp Pulse Resp B/P (MAP) Pulse Ox O2 Delivery O2 Flow Rate FiO2 10/18/19 11:00 84 17 128/60 (82) 100 10/18/19 10:00 83 18 137/53 (81) 100 10/18/19 09:00 86 17 120/48 (72) 100 10/18/19 08:00 85 10/18/19 08:00 97.9 87 17 125/53 (77) 100 10/18/19 08:00 40 10/18/19 08:00 Mechanical Ventilator 10/18/19 07:01 84 16 40 10/18/19 07:00 84 18 130/54 (79) 100 10/18/19 06:30 89 19 10/18/19 06:00 85 22 137/64 (88) 100 10/18/19 05:00 77 15 117/66 (83) 100 10/18/19 04:34 82 19 40 10/18/19 04:00 Mechanical Ventilator 10/18/19 04:00 98.3 76 20 112/50 (70) 100 10/18/19 04:00 40 10/18/19 04:00 79 10/18/19 03:30 75 16 40 10/18/19 03:00 75 13 107/45 (65) 100 10/18/19 02:00 72 15 103/42 (62) 100 10/18/19 01:30 81 16 40 10/18/19 01:00 75 14 97/48 (64) 100 10/18/19 00:00 99.1 76 13 107/49 (68) 100 10/18/19 00:00 77 10/18/19 00:00 Mechanical Ventilator 10/18/19 00:00 40 10/17/19 23:30 82 17 40 10/17/19 23:00 76 14 105/39 (61) 100 10/17/19 22:23 99.6 10/17/19 22:00 100.6 83 15 115/44 (67) 100 10/17/19 21:00 83 16 115/43 (67) 96 10/17/19 21:00 80 16 40 10/17/19 20:00 Mechanical Ventilator 10/17/19 20:00 99.8 81 15 105/43 (63) 96 10/17/19 20:00 40 10/17/19 20:00 81 10/17/19 19:30 83 16 40 10/17/19 19:00 81 13 106/45 (65) 86 10/17/19 18:00 82 15 116/43 (67) 84 10/17/19 17:00 81 15 110/43 (65) 100 10/17/19 16:53 81 16 40 10/17/19 16:00 98.6 82 18 105/42 (63) 100 10/17/19 16:00 Mechanical Ventilator 10/17/19 16:00 83 10/17/19 16:00 40 10/17/19 15:19 88 15 40 10/17/19 15:00 84 15 109/51 (70) 100 10/17/19 14:00 83 14 107/45 (65) 95 10/17/19 13:20 82 17 40 10/17/19 13:00 82 15 105/46 (65) 98 10/17/19 12:00 83 10/17/19 12:00 98.4 85 14 114/42 (66) 100 10/17/19 12:00 40 10/17/19 12:00 Mechanical Ventilator Intake and Output 10/17/19 10/18/19 19:00 07:00 Intake Total 740 ml 720 ml Output Total 575 ml 360 ml Balance 165 ml 360 ml Intake Free Water 20 ml Tube Feeding 720 ml 720 ml Output Urine Total 575 ml 360 ml Laboratory Tests 10/18/19 05:39: White Blood Count 13.1H, Red Blood Count 2.80L, Hemoglobin 7.3L, Hematocrit 22.7L, Mean Corpuscular Volume 81, Mean Corpuscular Hemoglobin 25.9L, Mean Corpuscular Hemoglobin Concent 32.0, Red Cell Distribution Width 16.1H, Platelet Count 430, Mean Platelet Volume 5.1L, Neutrophils (%) (Auto) , Lymphocytes (%) (Auto) , Monocytes (%) (Auto) , Eosinophils (%) (Auto) , Basophils (%) (Auto) , Differential Total Cells Counted 100, Neutrophils % ( Manual) 75, Lymphocytes % (Manual) 15L, Monocytes % (Manual) 8, Eosinophils % ( Manual) 2, Basophils % (Manual) 0, Band Neutrophils 0, Platelet Estimate Adequate, Platelet Morphology Normal, Hypochromasia 1+, Microcytosis 1+, Sodium Level 145, Potassium Level 3.6, Chloride Level 108H, Carbon Dioxide Level 30, Anion Gap 7, Blood Urea Nitrogen 41H, Creatinine 1.2, Estimat Glomerular Filtration Rate > 60, Glucose Level 165H, Calcium Level 8.5 Height (Feet): 5 Height (Inches): 11.00 Weight (Pounds): 142 General Appearance: no apparent distress EENT: other - Intubated on ventilator Cardiovascular: tachycardia Respiratory/Chest: decreased breath sounds Abdomen: distended Objective no change Clovis Benites MD October 18, 2019 11:56
[2019-10-18] MEDS ORDERED: Micafungin 100 MG in NS 110 ML IVPB SCH (12:00)
--- NOTE | 2019-10-18 12:48 | Pulmonolgy Critical Care Note ---
Critical Care - Asmt/Plan Problems: (1) Acute respiratory failure (2) Need for comfort care (3) Pleural effusion Assessment & Plan: s/p thoracentesis times 2, increasing again (4) Nosocomial pneumonia (5) Sepsis (6) Squamous cell esophageal cancer (7) Diabetes mellitus (8) Severe malnutrition (9) Alzheimer's dementia (10) History of CVA (cerebrovascular accident) (11) Feeding by G-tube Respiratory: monitor respiratory rate, adjust FIO2, CXR Cardiac: continue to monitor HR/BP Renal: F/U I&O Infectious Disease: check cultures, other - on Micafungin and vancomycin Gastrointestinal: continue feedings/current rate Endocrine: monitor blood sugar Hematologic: transfuse if hgb<8.5 Neurologic: keep patient comfortable Disposition: keep in ICU Notes Reviewed: cyber security architect, cardio Discussed with: nurses, consultants, case plannermine manager - Objective Last 24 Hour Vital Signs Date Time Temp Pulse Resp B/P (MAP) Pulse Ox O2 Delivery O2 Flow Rate FiO2 10/18/19 12:00 98.1 86 18 122/49 (73) 100 10/18/19 12:00 85 10/18/19 12:00 40 10/18/19 12:00 Mechanical Ventilator 10/18/19 11:01 85 17 40 10/18/19 11:00 84 17 128/60 (82) 100 10/18/19 10:00 83 18 137/53 (81) 100 10/18/19 09:00 86 17 120/48 (72) 100 10/18/19 08:00 85 10/18/19 08:00 97.9 87 17 125/53 (77) 100 10/18/19 08:00 40 10/18/19 08:00 Mechanical Ventilator 10/18/19 07:01 84 16 40 10/18/19 07:00 84 18 130/54 (79) 100 10/18/19 06:30 89 19 10/18/19 06:00 85 22 137/64 (88) 100 10/18/19 05:00 77 15 117/66 (83) 100 10/18/19 04:34 82 19 40 10/18/19 04:00 Mechanical Ventilator 10/18/19 04:00 98.3 76 20 112/50 (70) 100 10/18/19 04:00 40 10/18/19 04:00 79 10/18/19 03:30 75 16 40 10/18/19 03:00 75 13 107/45 (65) 100 10/18/19 02:00 72 15 103/42 (62) 100 10/18/19 01:30 81 16 40 10/18/19 01:00 75 14 97/48 (64) 100 10/18/19 00:00 99.1 76 13 107/49 (68) 100 10/18/19 00:00 77 10/18/19 00:00 Mechanical Ventilator 10/18/19 00:00 40 10/17/19 23:30 82 17 40 10/17/19 23:00 76 14 105/39 (61) 100 10/17/19 22:23 99.6 10/17/19 22:00 100.6 83 15 115/44 (67) 100 10/17/19 21:00 83 16 115/43 (67) 96 10/17/19 21:00 80 16 40 10/17/19 20:00 Mechanical Ventilator 10/17/19 20:00 99.8 81 15 105/43 (63) 96 10/17/19 20:00 40 10/17/19 20:00 81 10/17/19 19:30 83 16 40 10/17/19 19:00 81 13 106/45 (65) 86 10/17/19 18:00 82 15 116/43 (67) 84 10/17/19 17:00 81 15 110/43 (65) 100 10/17/19 16:53 81 16 40 10/17/19 16:00 98.6 82 18 105/42 (63) 100 10/17/19 16:00 Mechanical Ventilator 10/17/19 16:00 83 10/17/19 16:00 40 10/17/19 15:19 88 15 40 10/17/19 15:00 84 15 109/51 (70) 100 10/17/19 14:00 83 14 107/45 (65) 95 10/17/19 13:20 82 17 40 10/17/19 13:00 82 15 105/46 (65) 98 Status: obtunded Condition: critical HEENT: atraumatic Neck: full ROM Lungs: rales, rhonchi Heart: HR/BP stable Abdomen: soft Extremities: no C/C/E Micro: Microbiology Date/Time Source Procedure Growth Status 10/15/19 20:43 Blood Blood Culture - Preliminary Staphylococcus Sp Coag Neg Resulted 10/15/19 20:30 Blood Blood Culture - Preliminary NO GROWTH AFTER 48 HOURS Resulted 10/15/19 20:30 Indwelling Cath Urine Culture - Preliminary Abi Albicans Gram Positive Cocci Resulted Critical Care - Subjective ROS Limited/Unobtainable: Yes Interval Events: the note from ethics reviewed and noted. Patients niece wants to come by and see the patient before terminal extubation. Condition: critical FI02: 40 Vent Support Breath Rate: 12 Vent Support Mode: AC Vent Tidal Volume: 550 Sputum Amount: Moderate PEEP: 5.0 PIP: 28 Tube Feeding Amount: 60 I&O: Intake and Output 10/17/19 10/18/19 19:00 07:00 Intake Total 740 ml 720 ml Output Total 575 ml 360 ml Balance 165 ml 360 ml Intake Free Water 20 ml Tube Feeding 720 ml 720 ml Output Urine Total 575 ml 360 ml CXR: increasing right effusion. ET-Tube: 7.5 ET Position: 26 Labs: Laboratory Tests Test 10/18/19 05:39 White Blood Count 13.1 K/UL (4.8-10.8) H Red Blood Count 2.80 M/UL (4.70-6.10) L Hemoglobin 7.3 G/DL (14.2-18.0) L Hematocrit 22.7 % (42.0-52.0) L Mean Corpuscular Volume 81 FL (80-99) Mean Corpuscular Hemoglobin 25.9 PG (27.0-31.0) L Mean Corpuscular Hemoglobin Concent 32.0 G/DL (32.0-36.0) Red Cell Distribution Width 16.1 % (11.6-14.8) H Platelet Count 430 K/UL (150-450) Mean Platelet Volume 5.1 FL (6.5-10.1) L Neutrophils (%) (Auto) % (45.0-75.0) Lymphocytes (%) (Auto) % (20.0-45.0) Monocytes (%) (Auto) % (1.0-10.0) Eosinophils (%) (Auto) % (0.0-3.0) Basophils (%) (Auto) % (0.0-2.0) Differential Total Cells Counted 100 Neutrophils % (Manual) 75 % (45-75) Lymphocytes % (Manual) 15 % (20-45) L Monocytes % (Manual) 8 % (1-10) Eosinophils % (Manual) 2 % (0-3) Basophils % (Manual) 0 % (0-2) Band Neutrophils 0 % (0-8) Platelet Estimate Adequate Platelet Morphology Normal Hypochromasia 1+ Microcytosis 1+ Sodium Level 145 MMOL/L (136-145) Potassium Level 3.6 MMOL/L (3.5-5.1) Chloride Level 108 MMOL/L (98-107) H Carbon Dioxide Level 30 MMOL/L (21-32) Anion Gap 7 mmol/L (5-15) Blood Urea Nitrogen 41 mg/dL (7-18) H Creatinine 1.2 MG/DL (0.55-1.30) Estimat Glomerular Filtration Rate > 60 mL/min (>60) Glucose Level 165 MG/DL (74-106) H Calcium Level 8.5 MG/DL (8.5-10.1) Vania Hui MD October 18, 2019 12:48
[2019-10-18] MEDS ORDERED: Vancomycin 1.25gm/NS Premix IVPB ONE (13:00)
[2019-10-18] MEDS ORDERED: LORazepam Inj 2mg/ml 1ml IV PRN (13:00)
--- NOTE | 2019-10-18 13:03 | Surgery Progress Note ---
Surgery Progress Note Subjective Additional Comments family coming to visit and consider extubation otherwise no acute events comfortable appearing on vent support Objective Last 24 Hour Vital Signs Date Time Temp Pulse Resp B/P (MAP) Pulse Ox O2 Delivery O2 Flow Rate FiO2 10/18/19 12:00 98.1 86 18 122/49 (73) 100 10/18/19 12:00 85 10/18/19 12:00 40 10/18/19 12:00 Mechanical Ventilator 10/18/19 11:01 85 17 40 10/18/19 11:00 84 17 128/60 (82) 100 10/18/19 10:00 83 18 137/53 (81) 100 10/18/19 09:00 86 17 120/48 (72) 100 10/18/19 08:00 85 10/18/19 08:00 97.9 87 17 125/53 (77) 100 10/18/19 08:00 40 10/18/19 08:00 Mechanical Ventilator 10/18/19 07:01 84 16 40 10/18/19 07:00 84 18 130/54 (79) 100 10/18/19 06:30 89 19 10/18/19 06:00 85 22 137/64 (88) 100 10/18/19 05:00 77 15 117/66 (83) 100 10/18/19 04:34 82 19 40 10/18/19 04:00 Mechanical Ventilator 10/18/19 04:00 98.3 76 20 112/50 (70) 100 10/18/19 04:00 40 10/18/19 04:00 79 10/18/19 03:30 75 16 40 10/18/19 03:00 75 13 107/45 (65) 100 10/18/19 02:00 72 15 103/42 (62) 100 10/18/19 01:30 81 16 40 10/18/19 01:00 75 14 97/48 (64) 100 10/18/19 00:00 99.1 76 13 107/49 (68) 100 10/18/19 00:00 77 10/18/19 00:00 Mechanical Ventilator 10/18/19 00:00 40 10/17/19 23:30 82 17 40 10/17/19 23:00 76 14 105/39 (61) 100 10/17/19 22:23 99.6 10/17/19 22:00 100.6 83 15 115/44 (67) 100 10/17/19 21:00 83 16 115/43 (67) 96 10/17/19 21:00 80 16 40 10/17/19 20:00 Mechanical Ventilator 10/17/19 20:00 99.8 81 15 105/43 (63) 96 10/17/19 20:00 40 10/17/19 20:00 81 10/17/19 19:30 83 16 40 10/17/19 19:00 81 13 106/45 (65) 86 10/17/19 18:00 82 15 116/43 (67) 84 10/17/19 17:00 81 15 110/43 (65) 100 10/17/19 16:53 81 16 40 10/17/19 16:00 98.6 82 18 105/42 (63) 100 10/17/19 16:00 Mechanical Ventilator 10/17/19 16:00 83 10/17/19 16:00 40 10/17/19 15:19 88 15 40 10/17/19 15:00 84 15 109/51 (70) 100 10/17/19 14:00 83 14 107/45 (65) 95 10/17/19 13:20 82 17 40 I&O Intake and Output 10/17/19 10/18/19 19:00 07:00 Intake Total 740 ml 720 ml Output Total 575 ml 360 ml Balance 165 ml 360 ml Intake Free Water 20 ml Tube Feeding 720 ml 720 ml Output Urine Total 575 ml 360 ml Dressing: other Wound: other Drains: other Cardiovascular: RSR Respiratory: decreased breath sounds Abdomen: soft, non-tender, present bowel sounds Extremities: edema, no tenderness, no cyanosis Laboratory Tests Test 10/18/19 05:39 White Blood Count 13.1 K/UL (4.8-10.8) H Red Blood Count 2.80 M/UL (4.70-6.10) L Hemoglobin 7.3 G/DL (14.2-18.0) L Hematocrit 22.7 % (42.0-52.0) L Mean Corpuscular Volume 81 FL (80-99) Mean Corpuscular Hemoglobin 25.9 PG (27.0-31.0) L Mean Corpuscular Hemoglobin Concent 32.0 G/DL (32.0-36.0) Red Cell Distribution Width 16.1 % (11.6-14.8) H Platelet Count 430 K/UL (150-450) Mean Platelet Volume 5.1 FL (6.5-10.1) L Neutrophils (%) (Auto) % (45.0-75.0) Lymphocytes (%) (Auto) % (20.0-45.0) Monocytes (%) (Auto) % (1.0-10.0) Eosinophils (%) (Auto) % (0.0-3.0) Basophils (%) (Auto) % (0.0-2.0) Differential Total Cells Counted 100 Neutrophils % (Manual) 75 % (45-75) Lymphocytes % (Manual) 15 % (20-45) L Monocytes % (Manual) 8 % (1-10) Eosinophils % (Manual) 2 % (0-3) Basophils % (Manual) 0 % (0-2) Band Neutrophils 0 % (0-8) Platelet Estimate Adequate Platelet Morphology Normal Hypochromasia 1+ Microcytosis 1+ Sodium Level 145 MMOL/L (136-145) Potassium Level 3.6 MMOL/L (3.5-5.1) Chloride Level 108 MMOL/L (98-107) H Carbon Dioxide Level 30 MMOL/L (21-32) Anion Gap 7 mmol/L (5-15) Blood Urea Nitrogen 41 mg/dL (7-18) H Creatinine 1.2 MG/DL (0.55-1.30) Estimat Glomerular Filtration Rate > 60 mL/min (>60) Glucose Level 165 MG/DL (74-106) H Calcium Level 8.5 MG/DL (8.5-10.1) Plan Problems: (1) UTI (urinary tract infection) (2) Acute respiratory failure Assessment & Plan: There is infiltrate suspected in the right perihilar region obscuring the right hilum. There is a hazy opacity that may partially be accounted for by pleural fluid on the right. Reticular densities are present on the left in the perihilar aspect of the lung. Endotracheal tube is in good position just above the anselmo. Heart size is normal. IMPRESSION: Suspected perihilar airspace disease in the right lung suspicious for pneumonia. Reticular nodular infiltrate in the left lung noted also. Right pleural effusion suspected. Endotracheal tube in good position cont vents support Lungs: Similar bilateral interstitial prominence, greater on the right. Stable right perihilar, mid and lower lung opacities. Similar left lung base opacity. Pleural space: Small left pleural effusion is stable. Loculated right pleural effusion is stable. No pneumothorax. Heart: Unremarkable. No cardiomegaly. Mediastinum: Unremarkable. Bones/joints: Unremarkable. Tubes, lines and devices: Endotracheal tube has been pulled back and is 10 cm above the anselmo near the thoracic inlet. IMPRESSION: Endotracheal tube has been pulled back and is 10 cm above the anselmo near the thoracic inlet. Remainder findings are stable. may need thoracentesis soon Moderate size right pleural effusion with right upper and lower lobe atelectasis/consolidation, as well as mild pulmonary edema.. 1. Patchy opacities throughout the right lung left mid and lower lung, similar to slightly increased. Possible small bilateral pleural effusions. 2. Endotracheal tube terminates in the region of the lower thoracic trachea above the anselmo. consider trach code status? (3) Sepsis Assessment & Plan: Pt cachetic and presented on admission with multiple pressure injuries. Partial thickness pressure injury Cleft of L ear(L)1.2cm x (W)0.4cm. Base of wound moist and viable with small amt sanguineous exudate. Partial thickness pressure injury cleft of R ear(L)0.5cm x (W)0.7cm. Base of wound moist and viable Periwound erythematous.Small amt sanguineous exudate noted. Sacral DTPI(L)5cm x (W)10.5cm. Base of injury is purple with maroon borders. Coccygeal bony protrusion with darker skin tone, and small opening noted to R gluteus (L)0.5cm x (W)0.5cm within base of injury. No further skin breakdown periwound. Intact blood blister noted to R 1st metatarsal head(L)1.1cm x (W)2.5cm. DTPI noted to L heel extending into plantar aspect. Base of injury presents as an intact blood filled blister. Periwound is boggy with non-blanching erythema. R heel is boggy but blanchable. wounds unlikely etiology of sepsis respiratory but given current condition high risk for breakdown and worsening will monitor closely discussed with RN and staff great care being provided coded acls intubated in ICU prognosis guarded Tx.Plan: Apply Betadine to clefts of R and L ears. Pad oxygen tubing with gauze and keep oxygen tubing loose. Apply Moisture Barrier Paste to Sacrum. Cover with Optifoam drsg. Change every 3 days and prn. Apply Betadine to L heel. Cover with Optifoam drsg. Change every 3 days and prn. Apply Betadine to R 1st metatarsal head. Cover with Optifoam drsg. Change every 3 days and prn. Apply Cavilon Skin Barrier R heel. Cover with Optifoam drsg. Change every 7 days and prn. Reposition at least every 2hours or as tolerated. Off-load heels with pillow. on air mattress but not very comfortable appearing cont current care / pulm management (4) Severe anemia (5) Nosocomial pneumonia (6) Atrial fibrillation (7) Acute metabolic encephalopathy (8) History of CVA (cerebrovascular accident) (9) Diabetes mellitus (10) Hypothyroidism (11) Alzheimer's dementia (12) PVC (premature ventricular contraction) (13) Hypertension (14) Squamous cell esophageal cancer (15) Feeding by G-tube (16) Dehydration (17) Anemia (18) Severe malnutrition Assessment & Plan: DAILY ESTIMATED NEEDS: Needs based on underweight, suspected wt loss, wounds/ 63kg 25-33 kcals/kg 7428-8594 total kcals 1.25-2 g protein/kg 78-126 g total protein 25-30 mL/kg 1688-3589 total fluid mLs NUTRITION DIAGNOSIS: * Swallowing difficulty R/T dysphagia w/ h/o CVA as evidenced by now s/p recent PEG placement (08/08/19), on GT feeds, held at time, s/p code blue (09/07), orally intubated, now extubated. * Increased kcal/prot intake needs R/T suspected significant wt loss and underweight status, wounds as evidenced by 10lbs/6.7% wt loss in 1 month, 76% IBW w/ BMI of 18.4, admitted w/ DTPI wound @ sacrum, Lt heel, partial thickness pressure injury cleft of R L ear. CURRENT TF:Osmolite 1.2 @ 60ml/hr x 22 hrs ENTERAL NUTRITION RECOMMENDATIONS: Osmolite 1.2 @ 60ml/hr x 22 hrs + Prosource x 1 to provide 1320ml, 1584kcal, 73g +11g prot, 1082ml free water - Add Prosource x 1 to meet protein needs - HOLD 1 hr before and after synthroid meds. add Prosource 1 pack daily to better meet est pro needs - Flush per MD/ HOB over 30 degrees WITH ELEV BG, rec TF change to Glucerna 1.2 w/ a goal of 60ml/hr x22 hrs to provide 1320ml, 1584kcal, 79g prot ADDITIONAL RECOMMENDATIONS: * PER SNF: HT=6'1" WT= 139lbs ("August weight" from SNF) -> calibrated bedscale wt * Monitor K, need for TF change (K 5.9 upon adm, now wnl) * Wound care: add Vit C 500mg QD + Wesley 1pkt BID via PEG * Monitor BGs, need for NISS: h/o DM per MD (checking A1C not suggested given low hgb) (19) Encounter for PEG (percutaneous endoscopic gastrostomy) (20) At high risk for aspiration (21) Pleural effusion (22) Suspected COVID-19 virus infection Jan Mora October 18, 2019 13:03
--- NOTE | 2019-10-18 16:22 | Internal Med Progress Note ---
Subjective Date of Service: October 18, 2019 Physician Name Xander Bah Attending Physician Lamont Hayes MD Current Medications Medications (Trade) Dose Ordered Sig/Kike Route PRN Reason Start Time Stop Time Status Last Admin Dose Admin Acetaminophen (Tylenol) 650 mg Q4H PRN GT Temp >100.5 10/15/19 20:30 11/14/19 20:29 10/17/19 21:53 Albuterol/ Ipratropium (Albuterol/ Ipratropium) 3 ml Q4HRT PRN HHN sob 10/15/19 09:30 10/20/19 09:29 Docusate Sodium (Colace) 100 mg TID GT 10/05/19 13:00 11/03/19 08:59 10/18/19 12:01 Heparin Sodium (Porcine) (Heparin 5000 units/ml) 5,000 units EVERY 12 HOURS SUBQ 09/24/19 09:00 10/22/19 08:59 10/18/19 08:12 Hydralazine HCl (Apresoline) 10 mg Q4H PRN IV Blood pressure over 160 systol 10/15/19 12:00 01/13/20 11:59 Lansoprazole (Prevacid) 30 mg BID GT 10/15/19 18:00 11/03/19 08:59 10/18/19 08:11 Lorazepam (Ativan 2mg/ml 1ml) 2 mg Q4H PRN IV For Anxiety 10/18/19 13:00 10/25/19 12:59 Micafungin Sodium 100 mg/Sodium Chloride 110 ml @ 110 mls/hr Q24H IVPB 10/18/19 12:00 10/25/19 11:59 10/18/19 11:58 Polyethylene Glycol (Miralax) 17 gm DAILY PRN ORAL Constipation 10/13/19 11:30 11/12/19 11:29 Quetiapine Fumarate (SEROqueL) 25 mg Q8H PRN NG Agitation 09/24/19 02:35 10/30/19 02:34 10/08/19 20:45 Sennosides (Senokot) 8.6 mg DAILY PRN ORAL Constipation 10/06/19 10:15 11/05/19 10:14 10/07/19 21:56 Vancomycin HCl (Vanco rx to dose) 1 ea DAILY PRN MISC Per rx protocol 10/18/19 10:45 11/17/19 10:44 Allergies: Coded Allergies: PENICILLINS (Verified Allergy, Unknown, 10/27/18) tolretas cephalosporins ROS Limited/Unobtainable: Yes Subjective 84 YO M admitted with cough and congestion. Cover for Int Med-Dr Hayes. Reintubated 09/24/19 after cardiopulmonary arrest. ICU Objective Last Vital Signs Date Time Temp Pulse Resp B/P (MAP) Pulse Ox O2 Delivery O2 Flow Rate FiO2 10/18/19 15:00 86 21 134/46 (75) 100 10/18/19 14:56 40 10/18/19 12:00 98.1 10/18/19 12:00 Mechanical Ventilator Laboratory Tests Test 10/18/19 05:39 White Blood Count 13.1 K/UL (4.8-10.8) H Red Blood Count 2.80 M/UL (4.70-6.10) L Hemoglobin 7.3 G/DL (14.2-18.0) L Hematocrit 22.7 % (42.0-52.0) L Mean Corpuscular Volume 81 FL (80-99) Mean Corpuscular Hemoglobin 25.9 PG (27.0-31.0) L Mean Corpuscular Hemoglobin Concent 32.0 G/DL (32.0-36.0) Red Cell Distribution Width 16.1 % (11.6-14.8) H Platelet Count 430 K/UL (150-450) Mean Platelet Volume 5.1 FL (6.5-10.1) L Neutrophils (%) (Auto) % (45.0-75.0) Lymphocytes (%) (Auto) % (20.0-45.0) Monocytes (%) (Auto) % (1.0-10.0) Eosinophils (%) (Auto) % (0.0-3.0) Basophils (%) (Auto) % (0.0-2.0) Differential Total Cells Counted 100 Neutrophils % (Manual) 75 % (45-75) Lymphocytes % (Manual) 15 % (20-45) L Monocytes % (Manual) 8 % (1-10) Eosinophils % (Manual) 2 % (0-3) Basophils % (Manual) 0 % (0-2) Band Neutrophils 0 % (0-8) Platelet Estimate Adequate Platelet Morphology Normal Hypochromasia 1+ Microcytosis 1+ Sodium Level 145 MMOL/L (136-145) Potassium Level 3.6 MMOL/L (3.5-5.1) Chloride Level 108 MMOL/L (98-107) H Carbon Dioxide Level 30 MMOL/L (21-32) Anion Gap 7 mmol/L (5-15) Blood Urea Nitrogen 41 mg/dL (7-18) H Creatinine 1.2 MG/DL (0.55-1.30) Estimat Glomerular Filtration Rate > 60 mL/min (>60) Glucose Level 165 MG/DL (74-106) H Calcium Level 8.5 MG/DL (8.5-10.1) Microbiology Date/Time Source Procedure Growth Status 10/15/19 20:43 Blood Blood Culture - Preliminary Staphylococcus Sp Coag Neg Resulted 10/15/19 20:30 Blood Blood Culture - Preliminary NO GROWTH AFTER 48 HOURS Resulted 10/15/19 20:30 Indwelling Cath Urine Culture - Preliminary Jennifer Albicans Gram Positive Cocci Resulted Intake and Output 10/17/19 10/18/19 19:00 07:00 Intake Total 740 ml 720 ml Output Total 575 ml 360 ml Balance 165 ml 360 ml Intake Free Water 20 ml Tube Feeding 720 ml 720 ml Output Urine Total 575 ml 360 ml Objective PHYSICAL EXAMINATION: GENERAL: The patient is a thin-appearing male, in no apparent distress. HEENT: Eyes, pupils are equal and responsive to light and accommodation. Extraocular movements are intact. NECK: Supple without lymphadenopathy. CHEST: Mech vent; Lungs are clear to auscultation bilaterally with decreased breath sounds on the right. There are no wheezes appreciated. ABDOMEN: Soft, nontender, and nondistended. Positive bowel sounds. No evidence of hepatosplenomegaly. Currently, no rebound or guarding noted. EXTREMITIES: Negative for clubbing, cyanosis, or edema. RECTAL/GENITAL: Not performed. NEUROLOGIC: Cranial nerves II through XII are grossly intact without focal deficits. Assessment/Plan Assessment/Plan ASSESSMENT: This is an 84-year-old male with: 1. 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 Urinary tract infection=jennifer 3. Right pleural effusion. 4. Esophageal mass. 5. Dysphagia. 6. Diabetes. 7. Alzheimer's dementia. 8. Cerebrovascular disease. 9. Hypothyroidism. 10. Seizure disorder. 11. Iron deficiency anemia. 13. Respiratory failure 14. S/P cardiopulmonary arrest 15. Anemia 16. Patient now DNR/DNI-see critical care note TREATMENT: 1. Right perihilar Pneumonia/pleural effusion. COVID 19 and Influenza negative. A Pulmonary consultation has been obtained with Dr. Vania Hui. S/P right thoracentesis 09/19/19. We will follow recommendation of Pulmonary. ID=Dr Roach ABX= S/P levofloxacin, vanco and Meropenem per ID 2. Urinary tract infection. . A urine culture =jennifer 3. Right pleural effusion. As above, a Pulmonary consultation has been obtained with Dr. Vania Hui. The patient may require thoracentesis during this hospitalization. 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 A Gastroenterology consultation has been obtained with Dr. Darrick Rosario. 5. Dysphagia. The patient is status post PEG placement on 08/08/2019 at [facility] by Dr. Darrick Rosario. 6. Diabetes type 2. A NovoLog sliding scale has been instituted. 7. Alzheimer's dementia. 8. Cerebrovascular disease, status post cerebrovascular accident. 9. Hypothyroidism. Continue levothyroxine as above. 10. Seizure disorder. 11. Iron deficiency anemia. 12. reintubated 09/24/19-see code blue note 13. S/P transfusion 2 units PRBC Xander Bah MD October 18, 2019 16:22
--- NOTE | 2019-10-18 18:02 | Neurology Progress Note ---
Interim History Interim History Interim History Mr. Yaniv Vazquez is an 84-year-old, black gentleman, of unknown handedness, who does have a past history of hypertension, diabetes mellitus, dyslipidemia, hypothyroidism, esophageal cancer, cerebrovascular disease - the details of which are unknown to us, and Alzheimer's disease, was brought into the [facility] emergency room from his long term on 09/07/2019. Since he has been in the hospital he has had multiple endotracheal intubations followed by extubations followed by reintubation because of bouts of respiratory failure. As per his nurse there has been no significant change in his condition since I saw him yesterday. At this point in time, he continues to open his eyes momentarily on deep painful stimulation, but is otherwise unresponsive. There has been no significant change in his medical or neurological condition. Review of Systems Neuro Review of Systems Unable to obtain. Objective Physical Exam Last Vital Signs Date Time Temp Pulse Resp B/P (MAP) Pulse Ox O2 Delivery O2 Flow Rate FiO2 10/18/19 16:00 40 10/18/19 16:00 82 10/18/19 16:00 100.0 17 109/49 (69) 100 10/18/19 16:00 Mechanical Ventilator Laboratory Tests Test 10/18/19 05:39 White Blood Count 13.1 K/UL (4.8-10.8) H Red Blood Count 2.80 M/UL (4.70-6.10) L Hemoglobin 7.3 G/DL (14.2-18.0) L Hematocrit 22.7 % (42.0-52.0) L Mean Corpuscular Volume 81 FL (80-99) Mean Corpuscular Hemoglobin 25.9 PG (27.0-31.0) L Mean Corpuscular Hemoglobin Concent 32.0 G/DL (32.0-36.0) Red Cell Distribution Width 16.1 % (11.6-14.8) H Platelet Count 430 K/UL (150-450) Mean Platelet Volume 5.1 FL (6.5-10.1) L Neutrophils (%) (Auto) % (45.0-75.0) Lymphocytes (%) (Auto) % (20.0-45.0) Monocytes (%) (Auto) % (1.0-10.0) Eosinophils (%) (Auto) % (0.0-3.0) Basophils (%) (Auto) % (0.0-2.0) Differential Total Cells Counted 100 Neutrophils % (Manual) 75 % (45-75) Lymphocytes % (Manual) 15 % (20-45) L Monocytes % (Manual) 8 % (1-10) Eosinophils % (Manual) 2 % (0-3) Basophils % (Manual) 0 % (0-2) Band Neutrophils 0 % (0-8) Platelet Estimate Adequate Platelet Morphology Normal Hypochromasia 1+ Microcytosis 1+ Sodium Level 145 MMOL/L (136-145) Potassium Level 3.6 MMOL/L (3.5-5.1) Chloride Level 108 MMOL/L (98-107) H Carbon Dioxide Level 30 MMOL/L (21-32) Anion Gap 7 mmol/L (5-15) Blood Urea Nitrogen 41 mg/dL (7-18) H Creatinine 1.2 MG/DL (0.55-1.30) Estimat Glomerular Filtration Rate > 60 mL/min (>60) Glucose Level 165 MG/DL (74-106) H Calcium Level 8.5 MG/DL (8.5-10.1) Neurologic Exam Objective PHYSICAL EXAMINATION: GENERAL: He is a well-developed, relatively well-nourished, black gentleman, lying in an ICU bed, connected to ventilator, via an orotracheal tube. HEAD: Normocephalic and atraumatic. NECK: No neck rigidity was observed. EENT: Benign. NEUROLOGIC EXAMINATION: MENTAL STATUS EXAMINATION: He opened his eyes momentarily on applying deep painful stimuli. He was unable to interact in any other manner. Further mental status testing was impossible. SPEECH: Could not be tested. LANGUAGE: He did not follow simple commands or express himself in any way. CRANIAL NERVE EXAMINATION: II: He did not blink to threat. III, IV, : External ocular movements were present on oculocephalic maneuvers. The pupils were 3 mm in diameter and did not react to light. V-VII: The corneal reflexes were present but subdued bilaterally. VIII: He did not respond to loud sounds and had no nystagmus. IX-X: The gag reflex was absent on manipulating the endotracheal tube. XI: The sternocleidomastoids and trapezii did not function. XII: Could not be tested adequately. MOTOR SYSTEM: The tone was increased in all 4 extremities with a significant degree of spasticity. Examination of muscle mass revealed generalized muscle wasting with bilateral upper and lower extremity contractures in flexion. No movements was were noted even on applying deep painful stimuli. SENSORY EXAMINATION: He responded to deep pain with brief eye opening. COORDINATION: Could not be tested. REFLEXES: 0 at the biceps, triceps, brachioradialis, knees and ankles. The plantar responses were mute bilaterally. STANCE: Could not be tested. GAIT: Could not be tested. ABNORMAL MOVEMENTS: None Impression/Recommendations Diagnostic Impression DIAGNOSTIC IMPRESSION: 1. Mr. Yaniv Vazquez is an 84-year-old, black gentleman, of unknown handedness, who does have a past history of hypertension, diabetes mellitus, dyslipidemia, hypothyroidism, esophageal cancer, cerebrovascular disease -the details of which are unknown to us, and Alzheimer's disease, was brought into the [facility] emergency room from his long term on 09/07/2019. 2. Since he has been in the hospital he has had multiple endotracheal intubations followed by extubations followed by reintubation because of bouts of respiratory failure. His cognitive function has progressively worsened and thus this consultation was requested to evaluate the patient from a neurological point of view to help prognosticate. 3. As per his nurse there has been no significant change in his condition since I saw him yesterday. At this point in time, he continues to open his eyes momentarily on deep painful stimulation, but is otherwise unresponsive. There has been no significant change in his medical or neurological condition. 4. On neurological examination, at this time, he does open his eyes on deep painful stimulation but rapidly closes them. He does not respond in any other manner. He does have brainstem function in the form of extraocular eye movements on oculocephalic maneuvers, and corneal reflexes. He has severe spasticity in all 4 extremities and significant wasting and contractures involving all 4 extremities. He does not move any of his extremities even on applying deep painful stimuli. His deep tendon reflexes are globally absent and his plantar responses mute. 5. The CT scan of the brain without contrast performed on 10/14/2019 revealed deep white matter changes consistent with chronic microvascular ischemic disease. In addition old subcortical infarcts were seen in the frontal deep white matter bilaterally, the left thalamus, and the right cerebellum. 6. The EEG performed on 10/14/2019 revealed slowing of the background in the delta and theta range with triphasic waveforms. These findings are consistent with a moderately severe encephalopathy with a metabolic component. 7. The patient's history and neurological examination are most consistent with severe bilateral cerebral dysfunction. This dysfunction is due to old bilateral cerebrovascular disease and in addition the superimposed encephalopathy related to multiple hypoxic insults and other toxic metabolic imbalances. 8. Clinically the patient has not demonstrated any improvement in his cortical function but continues to have stable brainstem function. 9. The prognosis for recovery of neurological function is poor because of the underlying structural brain disease and superadded significant encephalopathy related to hypoxic brain insults. Recommendations RECOMMENDATIONS: 1. Continue present management. 2. In light of his poor prognosis, depending on the goals of care, a decision should be made as to how aggressive we want to be with his future care. Daniel Ricardo M.D., M.S.P.H. Neurologist & Clinical Neurophysiologist Daniel Ricardo MD October 18, 2019 18:02
[2019-10-19] VITALS (24 sets, daily range): BP systolic 72–126; BP diastolic 38–75
--- NOTE | 2019-10-19 09:52 | General Progress Note ---
Assessment/Plan Assessment/Plan: 1. Esophageal cancer. 2. Dysphagia. 3. Diabetes type 2. 4. Dementia. 5. CVA. 6. Hypothyroidism. 7. Seizure disorder. 8. Iron deficiency anemia. 9. Respiratory failure. 10. Dysphagia with G-tube stable H&H GT has been changed and working well GT flushes dietitian in put appreciated>>> TF Javity 1.2 at 60 cc subhash abx per id pulm care bowel regimen recent labs and notes reviewed D/W the nurse will fu Subjective ROS Limited/Unobtainable: No Allergies: Coded Allergies: PENICILLINS (Verified Allergy, Unknown, 10/27/18) tolretas cephalosporins Objective Last 24 Hour Vital Signs Date Time Temp Pulse Resp B/P (MAP) Pulse Ox O2 Delivery O2 Flow Rate FiO2 10/19/19 08:16 84 14 93 Mechanical Ventilator 40 10/19/19 07:45 84 14 40 10/19/19 07:00 88 15 115/52 (73) 93 10/19/19 06:30 88 15 10/19/19 06:00 87 15 115/55 (75) 97 10/19/19 05:00 86 14 119/53 (75) 90 10/19/19 04:00 Mechanical Ventilator 10/19/19 04:00 88 10/19/19 04:00 99.6 88 15 111/52 (71) 92 10/19/19 04:00 40 10/19/19 03:44 90 15 40 10/19/19 03:00 98 24 125/75 (92) 92 10/19/19 02:00 81 14 110/53 (72) 96 10/19/19 01:00 83 15 97/49 (65) 100 10/19/19 00:00 98.8 84 14 109/51 (70) 100 10/19/19 00:00 Mechanical Ventilator 10/19/19 00:00 40 10/19/19 00:00 83 10/18/19 23:13 82 16 40 10/18/19 23:00 82 14 103/50 (67) 100 10/18/19 22:00 85 16 100/54 (69) 100 10/18/19 21:00 83 15 104/55 (71) 100 10/18/19 20:00 99.6 83 14 100/46 (64) 92 10/18/19 20:00 40 5/12/20 20:00 Mechanical Ventilator 10/18/19 19:29 85 10/18/19 19:18 85 15 40 10/18/19 19:00 84 14 112/49 (70) 100 10/18/19 18:00 82 14 110/48 (68) 100 10/18/19 17:00 86 21 114/49 (70) 100 10/18/19 16:00 40 10/18/19 16:00 82 10/18/19 16:00 100.0 81 17 109/49 (69) 100 10/18/19 16:00 Mechanical Ventilator 10/18/19 15:00 86 21 134/46 (75) 100 10/18/19 14:56 87 22 40 10/18/19 14:00 83 17 129/50 (76) 100 10/18/19 13:00 82 16 112/50 (70) 100 10/18/19 12:00 98.1 86 18 122/49 (73) 100 10/18/19 12:00 85 10/18/19 12:00 40 10/18/19 12:00 Mechanical Ventilator 10/18/19 11:01 85 17 40 10/18/19 11:00 84 17 128/60 (82) 100 10/18/19 10:00 83 18 137/53 (81) 100 Intake and Output 10/18/19 10/19/19 19:00 07:00 Intake Total 1216.663 ml 720 ml Output Total 575 ml 460 ml Balance 641.663 ml 260 ml Intake Free Water 20 ml IV Total 476.663 ml Tube Feeding 720 ml 720 ml Output Urine Total 575 ml 460 ml Height (Feet): 5 Height (Inches): 11.00 Weight (Pounds): 142 General Appearance: no apparent distress EENT: normal ENT inspection Neck: supple Cardiovascular: normal rate Respiratory/Chest: decreased breath sounds Abdomen: normal bowel sounds, non tender, soft Extremities: non-tender Darrick Rosario MD October 19, 2019 09:52
[2019-10-19] MEDS: Docusate 100mg/10ml Liq GT SCH (09:55)
[2019-10-19] MEDS: Heparin 5000 units/ml inj SUBQ SCH (09:56)
--- NOTE | 2019-10-19 11:20 | Nephrology Progress Note ---
Assessment/Plan Problem List: (1) RAMAN (acute kidney injury) Assessment: Serum creatinine normalized with hydration (2) Dehydration (3) Suspected COVID-19 virus infection (4) Anemia (5) Sepsis (6) Diabetes mellitus (7) Hypothyroidism Assessment - Acute renal failure - Severe anemia - Sepsis, pneumonia, acute respiratory failure, suspected: Viewed 19 virus infection - Diabetes mellitus - Hypothyroidism - Feeding by G-tube - Squamous cell esophageal cancer - History of CVA (cerebrovascular accident) Plan No labs for today, will check lab tomorrow Hemoglobin was low Patient remains stable from renal standpoint of view Continues to be intubated Per pulmonary October 10: Discussed with KAI Estevez Serum potassium within normal limit range Remains intubated on ventilator Continue per consultants October 14: Discussed with KAI Figueora Serum potassium high, I believe it most likely due to hemolysis because: BUN and creatinine levels not indicative of worsening renal failure, urine output well maintained At this time will give fluid boluses and 1 dose of Kayexalate and recheck renal parameters tomorrow October 8: Potassium of 5.5 likely hemolyzed Discussed with RN to adjust Muniz catheter and do a bedside bladder ultrasound to assess if there is any urinary retention October 7: Remains stable from renal standpoint to view Remains intubated Continue per consultants Not much to add from renal standpoint. October 6: Remains stable from renal standpoint of view Remains intubated Data reviewed October 5: Dose unchanged from renal standpoint to view Remains intubated October 4: Stable from renal standpoint of view Hemoglobin higher today October 3 Discussed with RN Remains intubated on ventilator Hemoglobin is drifting down Will reorder iron panel Remains stable from renal standpoint of view Remains full code October 2: Discussed with RN. Patient remains intubated. Family declined comfort care. Weaning trial is being attempted Main stable from renal standpoint of view We will order labs for tomorrow. Previously Patient was coded early September 23 morning and back in ICU intubated Serum creatinine miguel to 1.5, now back to normal Stable from renal standpoint of view at this point He is status remains full code Tested negative for COVID-19 Previously: Pneumonia SARS-CoV neg x2 MRSA screen pos sp cx: PSA and proteus Changes Seroquel to "as needed" due to bradycardia Discontinue IV fluid Monitor renal parameters, serum creatinine Adjust electrolytes with supplements Increase Synthroid dose Avoid nephrotoxic's as possible Ventilator management Urine studies Per orders Subjective ROS Limited/Unobtainable: Yes Objective Objective Last 24 Hour Vital Signs Date Time Temp Pulse Resp B/P (MAP) Pulse Ox O2 Delivery O2 Flow Rate FiO2 10/19/19 10:00 88 14 126/64 (84) 92 10/19/19 09:00 85 16 125/51 (75) 89 10/19/19 08:16 84 14 93 Mechanical Ventilator 40 10/19/19 08:00 88 10/19/19 08:00 99.1 84 13 121/49 (73) 100 10/19/19 08:00 40 10/19/19 08:00 Mechanical Ventilator 10/19/19 07:45 84 14 40 10/19/19 07:00 88 15 115/52 (73) 93 10/19/19 06:30 88 15 10/19/19 06:00 87 15 115/55 (75) 97 10/19/19 05:00 86 14 119/53 (75) 90 10/19/19 04:00 Mechanical Ventilator 10/19/19 04:00 88 10/19/19 04:00 99.6 88 15 111/52 (71) 92 10/19/19 04:00 40 10/19/19 03:44 90 15 40 10/19/19 03:00 98 24 125/75 (92) 92 10/19/19 02:00 81 14 110/53 (72) 96 10/19/19 01:00 83 15 97/49 (65) 100 10/19/19 00:00 98.8 84 14 109/51 (70) 100 10/19/19 00:00 Mechanical Ventilator 10/19/19 00:00 40 10/19/19 00:00 83 10/18/19 23:13 82 16 40 10/18/19 23:00 82 14 103/50 (67) 100 10/18/19 22:00 85 16 100/54 (69) 100 10/18/19 21:00 83 15 104/55 (71) 100 10/18/19 20:00 99.6 83 14 100/46 (64) 92 10/18/19 20:00 40 10/18/19 20:00 Mechanical Ventilator 10/18/19 19:29 85 10/18/19 19:18 85 15 40 10/18/19 19:00 84 14 112/49 (70) 100 10/18/19 18:00 82 14 110/48 (68) 100 10/18/19 17:00 86 21 114/49 (70) 100 10/18/19 16:00 40 10/18/19 16:00 82 10/18/19 16:00 100.0 81 17 109/49 (69) 100 10/18/19 16:00 Mechanical Ventilator 10/18/19 15:00 86 21 134/46 (75) 100 10/18/19 14:56 87 22 40 10/18/19 14:00 83 17 129/50 (76) 100 10/18/19 13:00 82 16 112/50 (70) 100 10/18/19 12:00 98.1 86 18 122/49 (73) 100 10/18/19 12:00 85 10/18/19 12:00 40 10/18/19 12:00 Mechanical Ventilator Intake and Output 10/18/19 10/19/19 19:00 07:00 Intake Total 1216.663 ml 720 ml Output Total 575 ml 460 ml Balance 641.663 ml 260 ml Intake Free Water 20 ml IV Total 476.663 ml Tube Feeding 720 ml 720 ml Output Urine Total 575 ml 460 ml No labs today Height (Feet): 5 Height (Inches): 11.00 Weight (Pounds): 142 EENT: other - Remains intubated on ventilator Cardiovascular: tachycardia - Heart rate mid 80s Respiratory/Chest: decreased breath sounds Abdomen: distended Objective no change Clovis Benites MD October 19, 2019 11:20
[2019-10-19] MEDS ORDERED: Glycopyrrolate 0.2mg/ml 1ml Vial IV PRN (11:45)
[2019-10-19] MEDS ORDERED: Haloperidol 5mg/ml Inj IM PRN (11:45)
[2019-10-19] MEDS ORDERED: Prochlorperazine 10mg tab ORAL PRN (11:45)
[2019-10-19] MEDS ORDERED: Rate Change Narcotic Drip MISC PRN (11:45)
[2019-10-19] MEDS ORDERED: Morphine Sulfate 10mg/ml Inj IVP SCH (11:45)
[2019-10-19] MEDS ORDERED: PCA Morphine 1mg/ml 30 ML IV PRN (11:51)
--- NOTE | 2019-10-19 11:51 | Pulmonolgy Critical Care Note ---
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 Infectious Disease: other - dc antibiotics, Gastrointestinal: hold feedings - because of high risk of aspiration Neurologic: PRN Morphine, keep patient comfortable Affect: PRN ativan Disposition: transfer to Discussed with: nurses, consultants, casework specialisthuman resource manager - Objective Last 24 Hour Vital Signs Date Time Temp Pulse Resp B/P (MAP) Pulse Ox O2 Delivery O2 Flow Rate FiO2 10/19/19 10:00 88 14 126/64 (84) 92 10/19/19 09:00 85 16 125/51 (75) 89 10/19/19 08:16 84 14 93 Mechanical Ventilator 40 10/19/19 08:00 88 10/19/19 08:00 99.1 84 13 121/49 (73) 100 10/19/19 08:00 40 10/19/19 08:00 Mechanical Ventilator 10/19/19 07:45 84 14 40 10/19/19 07:00 88 15 115/52 (73) 93 10/19/19 06:30 88 15 10/19/19 06:00 87 15 115/55 (75) 97 10/19/19 05:00 86 14 119/53 (75) 90 10/19/19 04:00 Mechanical Ventilator 10/19/19 04:00 88 10/19/19 04:00 99.6 88 15 111/52 (71) 92 10/19/19 04:00 40 10/19/19 03:44 90 15 40 10/19/19 03:00 98 24 125/75 (92) 92 10/19/19 02:00 81 14 110/53 (72) 96 10/19/19 01:00 83 15 97/49 (65) 100 10/19/19 00:00 98.8 84 14 109/51 (70) 100 10/19/19 00:00 Mechanical Ventilator 10/19/19 00:00 40 10/19/19 00:00 83 10/18/19 23:13 82 16 40 10/18/19 23:00 82 14 103/50 (67) 100 10/18/19 22:00 85 16 100/54 (69) 100 10/18/19 21:00 83 15 104/55 (71) 100 10/18/19 20:00 99.6 83 14 100/46 (64) 92 10/18/19 20:00 40 10/18/19 20:00 Mechanical Ventilator 10/18/19 19:29 85 10/18/19 19:18 85 15 40 10/18/19 19:00 84 14 112/49 (70) 100 10/18/19 18:00 82 14 110/48 (68) 100 10/18/19 17:00 86 21 114/49 (70) 100 10/18/19 16:00 40 10/18/19 16:00 82 10/18/19 16:00 100.0 81 17 109/49 (69) 100 10/18/19 16:00 Mechanical Ventilator 10/18/19 15:00 86 21 134/46 (75) 100 10/18/19 14:56 87 22 40 10/18/19 14:00 83 17 129/50 (76) 100 10/18/19 13:00 82 16 112/50 (70) 100 10/18/19 12:00 98.1 86 18 122/49 (73) 100 10/18/19 12:00 85 10/18/19 12:00 40 10/18/19 12:00 Mechanical Ventilator Status: obtunded Condition: critical, grave HEENT: atraumatic Neck: full ROM Lungs: rales, rhonchi Heart: HR/BP stable Abdomen: soft Extremities: no C/C/E Critical Care - Subjective ROS Limited/Unobtainable: Yes Interval Events: pts niece visited him last night. I talked to her today. She understands that comfort care is the best option now. She will make arrangements for . Condition: critical FI02: 40 Vent Support Breath Rate: 12 Vent Support Mode: AC Vent Tidal Volume: 550 Sputum Amount: Moderate PEEP: 5.0 PIP: 31 Tube Feeding Amount: 60 I&O: Intake and Output 5/12/20 5/13/20 19:00 07:00 Intake Total 1216.663 ml 720 ml Output Total 575 ml 460 ml Balance 641.663 ml 260 ml Intake Free Water 20 ml IV Total 476.663 ml Tube Feeding 720 ml 720 ml Output Urine Total 575 ml 460 ml ET-Tube: 7.5 ET Position: 26 Vania Hui MD October 19, 2019 11:51
--- NOTE | 2019-10-19 12:16 | Infectious Diseases Prog Note ---
Assessment/Plan Assessment/Plan Sepsis Gram positive bacteremia Fever; recurrent Mild leukocytosis, recurrent, increasing -10/16 CXR: Increasing large right pleural effusion -10/15 CXR: There is been improvement in moderate right pleural effusion. There is improving right basilar infiltrate/atelectasis. No new infiltrates are identified. -10/14 bcx 06/11 CoNS u/a wbc 10-15, nit neg, leuk +3, ucx: C. albicans, GPC 09/23 SP asystole cardiac arrest VDRF 09/23 Probable UTI, sp rx -10/01 Bcx Neg u/a wbc tnct; ucx 30-40k C.albicans PNA VDRF, sp intubation 09/08, sp extubation 09/18, re-intubated 09/23 SARS-CoV neg x3 (09/06, 09/08, 09/30) MRSA screen pos 10/09 CXR: Markedly increased and now large right pleural effusion, over 4 days. There is probably some atelectasis on the right as well in addition to the passive atelectasis from pleural fluid. Improved aeration of the left lung 10/05 CXR: Focal patchy infiltrate in the left suprahilar region, not evident previously. Slightly increased small right pleural effusion. Obscured left hemidiaphragm, likely retrocardiac consolidation and/or left pleural fluid , unchanged Stable cardiomegaly 10/02 CXR: Increasing pleural fluid and possibly parenchymal consolidation at the right lung base. Unchanged left basilar pleural and parenchymal disease. sp cx PSA (hensley S), P. stuarti (R. cefepime, ancef, levaquin; S zosyn, ertapenem) 09/30 CXR: Patchy opacities throughout the right lung left mid and lower lung, similar to slightly increased. Possible small bilateral pleural effusions. 09/29 CXR: Increasing right mid and lower lung opacity, may indicate increasing pleural fluid, increasing infiltrate, or both. 09/28 CXR: Developing hazy right basilar opacity. This could represent reaching layering pleural fluid. This could also represent reexpansion pulmonary edema given recent high-volume thoracentesis, or could represent developing ammonia or pulmonary edema. Hazy left basilar opacity, unchanged, may reflect parenchymal infiltrate versus pleural fluid versus both 09/25 CXR: Large right pleural effusion is again demonstrated. Small left pleural effusion is again demonstrated. Left lung is otherwise clear. sp cx PsA (R zozyn, S levo, gentamycin) 09/24 CXR: Moderate size right pleural effusion with right upper and lower lobe atelectasis/consolidation, as well as mild pulmonary edema.. 09/17 CXR: Similar bilateral interstitial prominence, greater on the right.Stable right perihilar, mid and lower lung opacities. Similar left lung base opacity. Small left pleural effusion is stable. Loculated right pleural effusion is stable. No pneumothorax. CXR: Right pleural effusion, also demonstrated on prior 08/09/2019 exam, slightly increased. Hazy right lung parenchymal opacity probably represents a superimposed pleural fluid but infiltrate also possible. 09/06 sp cx: PSA (hensley S) and proteus (hensley S) R pleural effusion, exudative -09/18 SP thorancetesis; removal of 2050 mL fluid; Fluid prot 5 (serum prot 7.2 ); cx Neg QTc 419 RAMAN, improving Encephalopathy -Head CT: Chronic and age-related changes, as described. Multiple old infarcts , as described. Negative for acute intracranial bleed or mass effect. Incidental finding of sphenoid sinus and mastoid disease DM HTN CVA Dementia Nonverbal G tube Plan: Patient has made comfort care and will be terminally extubated, antibiotics were discontinued 10/18 SP IV Vancomycin and Micafungin #2 10/12 SP Meropenem #7 10/06 SP Levaquin #7 10/05 SP IV Vancomycin #6 09/19 SPcefepime # /09/09 SP vanc #4 ( Cr increased) ID WILL SIGN OFF NOW. PLEASE CALL BACK IF NEEDED. Subjective Allergies: Coded Allergies: PENICILLINS (Verified Allergy, Unknown, 10/27/18) tolretas cephalosporins Subjective made comfort care Objective Vital Signs Last 24 Hour Vital Signs Date Time Temp Pulse Resp B/P (MAP) Pulse Ox O2 Delivery O2 Flow Rate FiO2 10/19/19 10:00 88 14 126/64 (84) 92 10/19/19 09:00 85 16 125/51 (75) 89 10/19/19 08:16 84 14 93 Mechanical Ventilator 40 10/19/19 08:00 88 10/19/19 08:00 99.1 84 13 121/49 (73) 100 10/19/19 08:00 40 10/19/19 08:00 Mechanical Ventilator 10/19/19 07:45 84 14 40 10/19/19 07:00 88 15 115/52 (73) 93 10/19/19 06:30 88 15 10/19/19 06:00 87 15 115/55 (75) 97 10/19/19 05:00 86 14 119/53 (75) 90 10/19/19 04:00 Mechanical Ventilator 10/19/19 04:00 88 10/19/19 04:00 99.6 88 15 111/52 (71) 92 10/19/19 04:00 40 10/19/19 03:44 90 15 40 10/19/19 03:00 98 24 125/75 (92) 92 10/19/19 02:00 81 14 110/53 (72) 96 10/19/19 01:00 83 15 97/49 (65) 100 10/19/19 00:00 98.8 84 14 109/51 (70) 100 10/19/19 00:00 Mechanical Ventilator 10/19/19 00:00 40 10/19/19 00:00 83 10/18/19 23:13 82 16 40 10/18/19 23:00 82 14 103/50 (67) 100 10/18/19 22:00 85 16 100/54 (69) 100 10/18/19 21:00 83 15 104/55 (71) 100 10/18/19 20:00 99.6 83 14 100/46 (64) 92 10/18/19 20:00 40 10/18/19 20:00 Mechanical Ventilator 10/18/19 19:29 85 10/18/19 19:18 85 15 40 10/18/19 19:00 84 14 112/49 (70) 100 10/18/19 18:00 82 14 110/48 (68) 100 10/18/19 17:00 86 21 114/49 (70) 100 10/18/19 16:00 40 10/18/19 16:00 82 10/18/19 16:00 100.0 81 17 109/49 (69) 100 10/18/19 16:00 Mechanical Ventilator 10/18/19 15:00 86 21 134/46 (75) 100 10/18/19 14:56 87 22 40 10/18/19 14:00 83 17 129/50 (76) 100 10/18/19 13:00 82 16 112/50 (70) 100 Height (Feet): 5 Height (Inches): 11.00 Weight (Pounds): 142 Objective Gen: NAD. well nourished HEENT: ETT. oral secretions Resp: coarse. equal chest rise. regular rate and rhythm. Abd: Soft. no TTP. nondistended. G tube site c/d/i. Neuro: opens eyes to voice and follows simple commands Current Medications Medications (Trade) Dose Ordered Sig/Kike Route PRN Reason Start Time Stop Time Status Last Admin Dose Admin Acetaminophen (Tylenol) 650 mg Q4H PRN GT Temp >100.5 10/15/19 20:30 11/14/19 20:29 10/17/19 21:53 Albuterol/ Ipratropium (Albuterol/ Ipratropium) 3 ml Q4HRT PRN HHN sob 10/15/19 09:30 10/20/19 09:29 Artificial Tears (Akwa-Tears) 1 drop QIDPRN PRN BOTH EYES Dry Eyes 10/19/19 11:45 11/18/19 11:44 Glycopyrrolate (Robinul) 0.1 mg Q6H PRN IV excessive secretions 10/19/19 11:45 11/18/19 11:44 Haloperidol Lactate (Haldol) 1 mg Q30M PRN IM Agitation 10/19/19 11:45 12/03/19 11:44 Lorazepam (Ativan 2mg/ml 1ml) 2 mg Q4H PRN IV For Anxiety 10/18/19 13:00 10/25/19 12:59 Miscellaneous Medication (Narcotic Drip Rate Change) 1 ea DAILY PRN MISC pts comfort 10/19/19 11:45 10/24/19 11:44 Miscellaneous Medication (Narcotic Shift Volume) 1 ea Q12HR@0700,1900 PRN MISC pts comfort 10/19/19 19:00 11/18/19 18:59 Morphine Sulfate 30 ml @ 5 mls/hr DATABASE ADMINISTRATION PROJECT MANAGER Protocol PRN IV For Pain 10/19/19 11:51 10/21/19 11:50 Morphine Sulfate (Morphine Sulfate) 10 mg ONCE IVP 10/19/19 11:45 10/19/19 14:00 10/19/19 12:13 Prochlorperazine (Compazine) 10 mg Q6H PRN ORAL Nausea & Vomiting 10/19/19 11:45 11/18/19 11:44 Quetiapine Fumarate (SEROqueL) 25 mg Q8H PRN NG Agitation 09/24/19 02:35 10/30/19 02:34 10/08/19 20:45 Danielle Roach M.D. October 19, 2019 12:16
[2019-10-19] MEDS ORDERED: Vancomycin 750 MG in NS 275 ML IVPB SCH (14:00)
--- NOTE | 2019-10-19 18:25 | Internal Med Progress Note ---
Subjective Date of Service: October 19, 2019 Physician Name Xander Bah Attending Physician Lamont Hayes MD Current Medications Medications (Trade) Dose Ordered Sig/Kike Route PRN Reason Start Time Stop Time Status Last Admin Dose Admin Acetaminophen (Tylenol) 650 mg Q4H PRN GT Temp >100.5 10/15/19 20:30 11/14/19 20:29 10/17/19 21:53 Albuterol/ Ipratropium (Albuterol/ Ipratropium) 3 ml Q4HRT PRN HHN sob 10/15/19 09:30 10/20/19 09:29 Artificial Tears (Akwa-Tears) 1 drop QIDPRN PRN BOTH EYES Dry Eyes 10/19/19 11:45 11/18/19 11:44 Glycopyrrolate (Robinul) 0.1 mg Q6H PRN IV excessive secretions 10/19/19 11:45 11/18/19 11:44 10/19/19 15:18 Haloperidol Lactate (Haldol) 1 mg Q30M PRN IM Agitation 10/19/19 11:45 12/03/19 11:44 Lorazepam (Ativan 2mg/ml 1ml) 2 mg Q4H PRN IV For Anxiety 10/18/19 13:00 10/25/19 12:59 Miscellaneous Medication (Narcotic Drip Rate Change) 1 ea DAILY PRN MISC pts comfort 10/19/19 11:45 10/24/19 11:44 Miscellaneous Medication (Narcotic Shift Volume) 1 ea Q12HR@0700,1900 PRN MISC pts comfort 10/19/19 19:00 11/18/19 18:59 Morphine Sulfate 30 ml @ 5 mls/hr ASSEMBLING INSPECTOR Protocol PRN IV For Pain 10/19/19 11:51 10/21/19 11:50 10/19/19 14:57 Prochlorperazine (Compazine) 10 mg Q6H PRN ORAL Nausea & Vomiting 10/19/19 11:45 11/18/19 11:44 Quetiapine Fumarate (SEROqueL) 25 mg Q8H PRN NG Agitation 09/24/19 02:35 10/30/19 02:34 10/08/19 20:45 Allergies: Coded Allergies: PENICILLINS (Verified Allergy, Unknown, 10/27/18) tolretas cephalosporins ROS Limited/Unobtainable: Yes Subjective 84 YO M admitted with cough and congestion. Cover for [facility] Med-Dr Hayes. ICU. S/P terminal extubation 10/19/19; comfort care Objective Last Vital Signs Date Time Temp Pulse Resp B/P (MAP) Pulse Ox O2 Delivery O2 Flow Rate FiO2 10/19/19 16:45 97 12 95 10/19/19 16:00 Mechanical Ventilator 10/19/19 16:00 123/54 (77) 10/19/19 15:27 99.1 10/19/19 12:35 21 Microbiology Date/Time Source Procedure Growth Status 10/18/19 12:00 Sputum Expectorated Gram Stain - Final Resulted 10/18/19 12:00 Sputum Expectorated Sputum Culture Pending Resulted Intake and Output 10/18/19 10/19/19 19:00 07:00 Intake Total 1216.663 ml 720 ml Output Total 575 ml 460 ml Balance 641.663 ml 260 ml Intake Free Water 20 ml IV Total 476.663 ml Tube Feeding 720 ml 720 ml Output Urine Total 575 ml 460 ml Objective PHYSICAL EXAMINATION: GENERAL: The patient is a thin-appearing male, in no apparent distress. HEENT: Eyes, pupils are equal and responsive to light and accommodation. Extraocular movements are intact. NECK: Supple without lymphadenopathy. CHEST: extubated; coarse breath sounds bilaterally with decreased breath sounds on the right. There are no wheezes appreciated. ABDOMEN: Soft, nontender, and nondistended. Positive bowel sounds. No evidence of hepatosplenomegaly. Currently, no rebound or guarding noted. EXTREMITIES: Negative for clubbing, cyanosis, or edema. RECTAL/GENITAL: Not performed. NEUROLOGIC: Cranial nerves II through XII are grossly intact without focal deficits. Assessment/Plan Assessment/Plan ASSESSMENT: This is an 84-year-old male with: 1. 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 Urinary tract infection=jennifer 3. Right pleural effusion. 4. Esophageal mass. 5. Dysphagia. 6. Diabetes. 7. Alzheimer's dementia. 8. Cerebrovascular disease. 9. Hypothyroidism. 10. Seizure disorder. 11. Iron deficiency anemia. 13. Respiratory failure 14. S/P cardiopulmonary arrest 15. Anemia 16. Patient now DNR/DNI-see critical care note TREATMENT: 1. Right perihilar Pneumonia/pleural effusion. COVID 19 and Influenza negative. A Pulmonary consultation has been obtained with Dr. Vania Hui. S/P right thoracentesis 09/19/19. We will follow recommendation of Pulmonary. ID=Dr Roach ABX= S/P levofloxacin, vanco and Meropenem per ID 2. Urinary tract infection. . A urine culture =jennifer 3. Right pleural effusion. As above, a Pulmonary consultation has been obtained with Dr. Vania Hui. The patient may require thoracentesis during this hospitalization. 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 A Gastroenterology consultation has been obtained with Dr. Darrick Rosario. 5. Dysphagia. The patient is status post PEG placement on 08/08/2019 at [facility] by Dr. Darrick Rosario. 6. Diabetes type 2. A NovoLog sliding scale has been instituted. 7. Alzheimer's dementia. 8. Cerebrovascular disease, status post cerebrovascular accident. 9. Hypothyroidism. Continue levothyroxine as above. 10. Seizure disorder. 11. Iron deficiency anemia. 12. reintubated 09/24/19-see code blue note 13. S/P transfusion 2 units PRBC 14. Terminal extubation 10/19/19; comfort care-see critical care note Xander Bah MD October 19, 2019 18:25
[2019-10-19] MEDS ORDERED: Narcotic Shift Volume MISC PRN (19:00)
[2019-10-19] MEDS ORDERED: Sterile Water Irrig 1000ml IRRIG ONE (19:29)
[2019-10-19] MEDS ORDERED: NS 275ml ONE (19:29)
--- NOTE | 2019-10-20 16:30 | Discharge Summary ---
Discharge Summary Discharge Summary _ SUMMARY DATE OF ADMISSION: 09/07/2019 DATE OF EXPIRATION: 10/19/2019 REASON FOR ADMISSION: 84 years old male with past medical history of esophageal cancer, dysphagia , status post PEG placement, diabetes mellitus type 2, cerebrovascular disease, status post cerebrovascular accident, hypothyroidism, seizure disorder, anemia, Alzheimer's dementia, was hospitalized at [facility] in July- August 2019. At that time he undergone PEG placement. This time patient was sent from senior living facility for evaluation due to increased cough and congestion to rule out pneumonia. Upon evaluation blood pressure was elevated 179/80. Patient was hypoxic , requiring supplemental oxygen of 4 L via nasal cannula. Patient was tachycardic . EKG revealed sinus tachycardia , no acute ischemic changes. Laboratory work-up revealed no leukocytosis ,stable hemoglobin and hematocrit with mild anemia. LFT and BUN were elevated. Patient was swabbed for COVID-19. Chest x-ray revealed large right pleural effusion. Saturation improved after suctioning . Patient pancultured, started on empiric antibiotic and admitted to telemetry floor for further management. CONSULTANTS: neurologist Dr. Ricardo pulmonary Dr. Hui ID specialist Dr. Roach GI specialist Dr. Rosario deck worker Dr. Benites surgery Dr. Mora psychiatrist HOSPITAL COURSE: Patient admitted to telemetry floor. Patient was kept in isolation. Patient started on empiric antibiotic. Supplemental oxygen provided and titrated to keep pulse oximetry above 92%. Pulmonary toilet provided. Patient sustained cardiopulmonary arrest due to asystole on 09/08 and required emergency oral intubation . Patient subsequently was transferred r to ICU for further management. Ventilator support and pulmonary toilet provided. Antibiotics continued. Blood cultures were negative. Influenza swab was negative. Urine culture revealed Abi, likely colonization as epr ID specialist . SARS-CoV-2 by PCR on 09/06 was not detected. Sputum culture revealed Pseudomonas aeruginosa and Proteus mirabilis. Patient completed course of antibiotics as per ID recommendations. Repeated SARS-CoV 2 by PCR on 09/08 was negative as well. Isolation was discontinued, Patient was followed-up with chest x-ray and ABG. ventilator settings titrated as needed. Patient was self extubated on 09/18. Patient was placed on 100% nonrebreathing mask and left at that time for close monitoring in ICU. Chest x-ray on 09/18 revealed massive right pleural effusion. Patient undergone 09/18 thoracentesis of right pleural effusion yielding 2050 mL of pleural fluid. Pleural fluid culture was negative. Cytology was negative for malignant cells. On 09/23 patient sustained sustained another cardiopulmonary arrest and was orally intubated. Patient undergone another thoracentesis 09/27 yielding 2300 mL of pleural fluid. Pleural culture was negative and cytology was negative for malignant cells. Aspiration precaution maintained. G-tube feeding continued . Protein supplements provided as per registered nurse first assistant recommendation. Hemoglobin and hematocrit were closely monitored with goal to keep hemoglobin above 7. Patient undergone transfusion of 2 units of packed red blood cells for hemoglobin 6.4. Stool for occult blood was negative. CEA was within normal limits. Noted elevated D-dimer. Venous duplex bilateral lower extremity was negative. Troponin negative. LFTs were closely monitored, remained elevated. GI prophylaxis with PPI provided. Blood sugar was managed with current regimen. Seizure precaution maintained. No evidence of seizure activity while in the hospital. TSH elevated. Synthroid dose uptitrated. Patient was followed-up with TSH , trending down Per neurologist, patient had severe bilateral cerebral dysfunction secondary to old bilateral cardio cerebrovascular disease in addition, he had superimposed encephalopathy related to multiply hypoxic insults and other toxic metabolic imbalances. CT of the head showed multiple old infarcts, but was negative for acute intracranial pathology. EEG was abnormal, revealing triphasic waveforms, consistent with encephalopathy of moderate degree , probably with a toxic metabolic component as evidenced by triphasic waveforms. Renal parameters and electrolytes were closely monitored, creatinine remained stable. Nephrotoxins were avoided. Wound care for multiply pressure injury present on admission, provided as per surgeon recommendation. Supportive care provided. Patient started on weaning protocol and was unable to be weaned. Family/niece declined tracheostomy placement and wanted patient to naturally. CODE STATUS changed to DNR/DNI on October 11. Bioethics consult was requested since patient had no formal representation. His close relative was his niece , who did not want responsibility of making medical end-of-life decision. She declined to be present at the meeting of the bioethics committee. Patient with esophageal cancer ,advanced age, feeding tube ,ventilator dependent , with anoxic encephalopathy. Upon reviewing of the information , the opinion of bioethic committee was that further aggressive medical care with all likelihood proved to be futile , given his advanced age ,underlying neoplasm and ventilator dependency. If he survives he would not have a quality of life acceptable to most people. Further aggressive medical care was not in the patient's best interest. Per bioethics , attending would be justified in withdrawing aggressive life- sustaining measures. The findings were communicated to the patient 's family. Patient was terminally extubated on 10/18 at 1230. Supplemental oxygen provided and titrated to keep pulse oximetry above 92%. Patient was maintained at high Luna's position to assist with the breathing. Patient received Robinul for excessive secretion. Patient started on morphine drip for comfort care . Patient later went to asystole. Patient was pronounced at 18:25 on 10/18 . Cause of :cardiopulmonary arrest. FINAL DIAGNOSES: Sepsis Acute respiratory failure requiring intubation, status post self extubation Status post cardiopulmonary arrest and reintubation on 09/23 Failure to wean Pseudomonas and Proteus pneumonia Recurrent pleural effusion, status post thoracentesis 09/18 and 09/27 Acute kidney injury secondary to dehydration Suspected COVID-19 infection - ruled out Hypothyroidism with elevated TSH Severe anemia Transaminitis Dysphagia feeding by G-tube Esophageal cancer Cerebrovascular disease with history of CVA Toxic metabolic encephalopathy Diabetes mellitus Severe protein calorie malnutrition Multiply pressure injury present on admission Seizure disorder Alzheimer dementia DNR/DNI status Comfort care Miranda Pimentel DRYING TUMBLER OPERATOR October 20, 2019 16:30
== END 2019-10-19 19:30 | disposition expired | DRG 720 ==
LOC: EDBD 00:21 → EMR 00:45 → EDBEDREQ 00:57 → 2E 01:17 → EDBEDREQ 07:06 → ICU 09-09 02:23 → 4E 09-22 02:36 → ICU 09-24 02:22
PROC: 5A1955Z Respiratory Ventilation, Greater than 96 Consecutive Hours (ICD-10-PCS; principal; 2019-09-09)
PROC: 0BH17EZ Insertion of Endotracheal Airway into Trachea, Via Natural or Artificial Opening (ICD-10-PCS; principal; 2019-09-09)
PROC: 5A12012 Performance of Cardiac Output, Single, Manual (ICD-10-PCS; principal; 2019-09-09)
PROC: 0BH17EZ Insertion of Endotracheal Airway into Trachea, Via Natural or Artificial Opening (ICD-10-PCS; 2019-09-19)
PROC: 5A1955Z Respiratory Ventilation, Greater than 96 Consecutive Hours (ICD-10-PCS; 2019-09-19)
PROC: 0W993ZZ Drainage of Right Pleural Cavity, Percutaneous Approach (ICD-10-PCS; 2019-09-19)
PROC: 0BH17EZ Insertion of Endotracheal Airway into Trachea, Via Natural or Artificial Opening (ICD-10-PCS; 2019-09-24)
PROC: 5A1955Z Respiratory Ventilation, Greater than 96 Consecutive Hours (ICD-10-PCS; 2019-09-24)
PROC: 0DH63UZ Insertion of Feeding Device into Stomach, Percutaneous Approach (ICD-10-PCS; 2019-09-26)
PROC: 0DP6XUZ Removal of Feeding Device from Stomach, External Approach (ICD-10-PCS; 2019-09-26)
PROC: 0W993ZZ Drainage of Right Pleural Cavity, Percutaneous Approach (ICD-10-PCS; 2019-09-28)
DX: A41.9 Sepsis, unspecified organism (principal); E43 Unspecified severe protein-calorie malnutrition; N39.0 Urinary tract infection, site not specified; J96.00 Acute respiratory failure, unspecified whether with hypoxia or hypercapnia; G93.41 Metabolic encephalopathy; C15.9 Malignant neoplasm of esophagus, unspecified; J15.6 Pneumonia due to other Gram-negative bacteria; J15.1 Pneumonia due to Pseudomonas; J90 Pleural effusion, not elsewhere classified; B37.49 Other urogenital candidiasis; R13.10 Dysphagia, unspecified; Z86.73 Personal history of transient ischemic attack (TIA), and cerebral infarction without residual deficits; Z93.1 Gastrostomy status; E11.9 Type 2 diabetes mellitus without complications; G30.9 Alzheimer's disease, unspecified; F02.80 Dementia in other diseases classified elsewhere, unspecified severity, without behavioral disturbance, psychotic disturbance, mood disturbance, and anxiety; E03.9 Hypothyroidism, unspecified; G40.909 Epilepsy, unspecified, not intractable, without status epilepticus; R00.1 Bradycardia, unspecified; I48.91 Unspecified atrial fibrillation; I10 Essential (primary) hypertension; R62.7 Adult failure to thrive; Z68.1 Body mass index [BMI] 19.9 or less, adult; N17.9 Acute kidney failure, unspecified; G92 Toxic encephalopathy; G93.1 Anoxic brain damage, not elsewhere classified; Z99.11 Dependence on respirator [ventilator] status; Z20.828 Contact with and (suspected) exposure to other viral communicable diseases; Z66 Do not resuscitate; L89.156 Pressure-induced deep tissue damage of sacral region; L89.626 Pressure-induced deep tissue damage of left heel; L89.816 Pressure-induced deep tissue damage of head; D50.9 Iron deficiency anemia, unspecified; E86.0 Dehydration; Z51.5 Encounter for palliative care
CPT/HCPCS: 36415; 36600; 70450; 71045; 76942; 80048; 80053; 80069; 80076; 80202; 81001; 81003; 82248; 82270; 82378; 82607; 82728; 82746; 82803; 82962; 82977; 83540; 83550; 83605; 83615; 83735; 83880; 84100; 84300; 84443; 84484; 84550; 85007; 85025; 85044; 85060; 85379; 85610; 85651; 85730; 86140; 86710; 86850; 86900; 86901; 86920; 87040; 87070; 87081; 87086; 87181; 87205; 87635; 88104; 89051; 92950; 93005; 93306; 93970; 94002; 94003; 94664; 95819; 96361; 96365; 99285; J0171; J2405; J7030